=== PATIENT | male | born 1935 | race Caucasian/White ===

== ENCOUNTER → 2017-07-25 14:56 | Outpatient (CLI) | payer MEDICARE, OTHER, SELFPAY ==
[2017-07-25 16:11] LABS: Absolute Lymphocyte Count 0.72 X10^3/ul (0.83-4.51); Absolute Neutrophil Count 4.3 X10^3/uL (2.0-7.7); Basophil# 0.01 X10^3/uL; Basophil% 0.2 % (0-1); Eosinophil# 0.17 X10^3/uL; Eosinophils% 2.7 % (0-5); Hematocrit 40.9 % (40-54); Hemoglobin 14.6 g/dl (13.0-16.5); Lymphocyte # 0.72 X10^3/ul (4.0); Lymphocyte % 11.4 % (19-41); Mean Corp Hgb Conc 35.7 g/gl (32-36); Mean Corpuscular Hgb 37.7 pg (27.0-32.0); Mean Corpuscular Volume 105.7 fL (80-94); Mean Platelet Vol. 11.8 fl (6.2-12.0); Monocyte# 1.08 X10^3/uL; Monocyte% 17.1 % (0-10); Neutrophil # 4.32 X10^3/uL (2.7-7.7); Neutrophil % 68.3 % (47-70); Platelet Count 155 K/mm3 (150-450); RBC Distribution Width SD 54.2 fl (35.1-43.9); Red Blood Count 3.87 M/mm3 (4.6-6.2); White Blood Count 6.3 K/mm3 (4.4-11.0)
[2017-07-25 16:18] LABS: POSITIVE COUNT NO; POSITIVE DIFFERENTIAL NO; POSITIVE MORPHOLOGY NO
[2017-07-25 16:38] LABS: Vitamin D,25 Hydroxy 16.7 ng/mL (19.95-100.01)
[2017-07-25 16:41] LABS: ALB/GLOB Ratio 1.1 RATIO (0.9-2.4); AST(SGOT) 17 U/L (15-37); Alanine Aminotransfer ALT/SGPT 24 U/L (16-61); Albumin, Serum 3.7 g/dL (3.2-5.0); Alkaline Phosphatase 45 U/L (45-117); Anion Gap 6 (5-15); BUN 16 mg/dL (7-18); BUN/Creat Ratio 13.4 RATIO (10-20); Calcium,Total 8.9 mg/dL (8.5-10.1); Chloride 103 mmol/L (98-107); Creatinine, Serum 1.19 mg/dL (0.70-1.30); EST Glomerular Filtration Rate 63 mL/min (>60); Est Glom Filt Rate - Afr Amer 76 mL/min (>60); Globulin 3.3 g/dL (2.2-4.2); Glucose 77 mg/dL (70-110); Potassium 3.8 mmol/L (3.5-5.1); Sodium Level 141 mmol/L (136-145)
== END ==
PROVIDERS: Family Provider Family Medicine Geriatric Medicine; PCP Family Medicine Geriatric Medicine; Visit Provider Family Medicine Geriatric Medicine
DX: I10 Essential (primary) hypertension (principal); E55.9 Vitamin D deficiency, unspecified
CPT/HCPCS: 36415; 80053; 82306; 84443; 85025

== ENCOUNTER → 2018-01-09 14:54 | Outpatient (CLI) | payer MEDICARE, OTHER, SELFPAY ==
--- NOTE | 2018-01-09 15:00 | RAD_ITS ---
STUDY: X-RAY - UNILATERAL RIBS ( RIGHT ) WITH CHEST REASON FOR EXAM: Male, 82 years old. Right-sided rib pain TECHNIQUE - RIBS: 5 view(s) of the ribs. TECHNIQUE - CHEST: Single PA view of the chest. COMPARISON: None. FINDINGS - RIBS: Bones are demineralized with minimally displaced right lateral 10th and 11th rib fractures. No pleural thickening or pneumothorax. FINDINGS - CHEST: There are interstitial fibrotic changes of the lungs. There is no demonstrated pleural abnormality. Sternal cerclage wires and vascular clips are present from a prior sternotomy and coronary artery bypass graft procedure (CABG). Normal mediastinum and francis. Normal visualized pulmonary arteries. There is atherosclerotic calcification of the aortic arch with tortuosity. There are diffuse degenerative changes of the visualized thoracic spine. There is degenerative osteoarthritis of the bilateral shoulders. There is no demonstrated abnormality of the visualized soft tissue structures of the upper abdomen. RAD/Ribs Uni Min 3V w/PA Chest IMPRESSION: RIBS: Acute minimally displaced right lateral 10th and 11th rib fractures without pleural thickening or pneumothorax CHEST: Chronic interstitial changes, no superimposed acute pulmonary process Electronically Signed: Ian Caban MD at 15:40 EDT , Service support ,
== END ==
PROVIDERS: Family Provider Family Medicine Geriatric Medicine; PCP Family Medicine Geriatric Medicine; Visit Provider Family Medicine Geriatric Medicine
DX: R07.89 Other chest pain (principal)
CPT/HCPCS: 71101

== ENCOUNTER → 2018-01-12 09:32 | Outpatient (CLI) | payer MEDICARE, OTHER, SELFPAY ==
[2018-01-12 17:33] LABS: Absolute Lymphocyte Count 0.58 X10^3/ul (0.83-4.51); Absolute Neutrophil Count 7.4 X10^3/uL (2.0-7.7); Basophil# 0.01 X10^3/uL; Basophil% 0.1 % (0-1); Eosinophil# 0.12 X10^3/uL; Eosinophils% 1.2 % (0-5); Hematocrit 40.6 % (40-54); Hemoglobin 13.6 g/dl (13.0-16.5); Lymphocyte # 0.58 X10^3/ul (4.0); Mean Corp Hgb Conc 33.5 g/gl (32-36); Mean Corpuscular Hgb 35.8 pg (27.0-32.0); Mean Corpuscular Volume 106.8 fL (80-94); Mean Platelet Vol. 11.5 fl (6.2-12.0); Monocyte# 1.52 X10^3/uL; Monocyte% 15.7 % (0-10); Neutrophil # 7.44 X10^3/uL (2.7-7.7); Neutrophil % 76.6 % (47-70); Platelet Count 153 K/mm3 (150-450); RBC Distribution Width CV 14.1 % (11.6-14.6); RBC Distribution Width SD 54.7 fl (35.1-43.9); White Blood Count 9.7 K/mm3 (4.4-11.0)
[2018-01-12 17:34] LABS: Differential Indicated SCAN CRITERIA MET; POSITIVE COUNT NO; POSITIVE DIFFERENTIAL YES; POSITIVE MORPHOLOGY NO
[2018-01-12 17:45] LABS: BUN 25 mg/dL (7-18); Creatinine, Serum 1.28 mg/dL (0.70-1.30); EST Glomerular Filtration Rate 58 mL/min (>60); Glucose 104 mg/dL (74-106)
[2018-01-12 17:46] LABS: ALB/GLOB Ratio 1.1 RATIO (0.9-2.4); AST(SGOT) 18 U/L (15-37); Alanine Aminotransfer ALT/SGPT 28 U/L (16-61); Albumin, Serum 3.6 g/dL (3.2-5.0); Alkaline Phosphatase 50 U/L (45-117); Anion Gap 8 (5-15); BUN/Creat Ratio 19.5 RATIO (10-20); Calcium,Total 9.1 mg/dL (8.5-10.1); Chloride 104 mmol/L (98-107); Est Glom Filt Rate - Afr Amer 70 mL/min (>60); Globulin 3.3 g/dL (2.2-4.2); Potassium 3.8 mmol/L (3.5-5.1); Protein, Total 6.9 g/dL (6.4-8.2); Sodium Level 143 mmol/L (136-145); Thyroid Stim Hormone (TSH) 1.11 uIU/mL (0.358-3.74)
[2018-01-12 18:01] LABS: Differential Comment SCANNED
[2018-01-13 08:15] LABS: Vitamin D,25 Hydroxy 21.5 ng/mL (29.95-100.01)
== END ==
PROVIDERS: Family Provider Family Medicine Geriatric Medicine; PCP Family Medicine Geriatric Medicine; Visit Provider Family Medicine Geriatric Medicine
DX: E55.9 Vitamin D deficiency, unspecified (principal); I10 Essential (primary) hypertension
CPT/HCPCS: 36415; 80053; 82306; 84443; 85025

== ENCOUNTER 2018-02-06 14:15 | Inpatient (IN) | payer MEDICARE, OTHER, SELFPAY ==
[2018-01-10 15:58] VITALS: BP 145/76; PULSE 58; RESP 18; TEMP 36.2; O2SAT 95; BMI 34.8
--- NOTE | 2018-01-10 16:12 | SDCEKG_ITS ---
Test Reason : Blood Pressure : / mmHG Vent. Rate : 065 BPM Atrial Rate : 065 BPM P-R Int : 184 ms QRS Dur : 104 ms QT Int : 420 ms P-R-T Axes : 068 -09 046 degrees QTc Int : 436 ms Sinus rhythm with Premature atrial complexes Otherwise normal ECG Confirmed by ROSANNA HERNANDEZ, LATASHA ([id number]), industrial editor DIONNE HALE ([id number] on 01/13/2018 1:18:26 PM Referred By: Peter Smith Confirmed By:LATASHA MARTE MD
[2018-01-10 17:59] LABS: Hematocrit 39.3 % (40-54); Hemoglobin 13.5 g/dl (13.0-16.5); Mean Corp Hgb Conc 34.4 g/gl (32-36); Mean Corpuscular Hgb 36.3 pg (27.0-32.0); Mean Corpuscular Volume 105.6 fL (80-94); Mean Platelet Vol. 12.2 fl (6.2-12.0); Platelet Count 150 K/mm3 (150-450); RBC Distribution Width CV 13.6 % (11.6-14.6); RBC Distribution Width SD 51.4 fl (35.1-43.9); Red Blood Count 3.72 M/mm3 (4.6-6.2); White Blood Count 14.4 K/mm3 (4.4-11.0)
[2018-01-10 18:04] LABS: Anion Gap 6 (5-15); BUN 19 mg/dL (7-18); BUN/Creat Ratio 17.1 RATIO (10-20); Calcium,Total 9.2 mg/dL (8.5-10.1); Chloride 103 mmol/L (98-107); Creatinine, Serum 1.11 mg/dL (0.70-1.30); EST Glomerular Filtration Rate 68 mL/min (>60); Est Glom Filt Rate - Afr Amer 82 mL/min (>60); Estimated Creatinine Clearance 51.35 ml/min; Glucose 103 mg/dL (74-106); Potassium 4.2 mmol/L (3.5-5.1); Sodium Level 142 mmol/L (136-145)
[2018-01-10 18:19] LABS: Scan Indicated on CBC? Y/N NO
--- NOTE | 2018-02-03 16:07 | CASEMGMT ---
KACI NIELSEN attempted pre-op call at this time. No answer, voice message left with return contact information. Per PAT assessment, patient to return home with son staying with patient.
[2018-02-06] VITALS (11 sets, daily range): BP systolic 102–163; BP diastolic 65–93; PULSE 53–71; RESP 16–18; TEMP 35.9–36.9; O2SAT 93–98; BMI 34.8
[2018-02-06] MEDS: Acetaminophen 500 MG Tablet 1000 MG PO ×2 (10:02→21:01)
[2018-02-06] MEDS: oxyCODONE HCl Cr 10 MG Tablet PO (10:06)
[2018-02-06 11:19] LABS: Absolute Lymphocyte Count 0.72 X10^3/ul (0.83-4.51); Absolute Neutrophil Count 3.5 X10^3/uL (2.0-7.7); Basophil# 0.02 X10^3/uL; Basophil% 0.4 % (0-1); Eosinophil# 0.22 X10^3/uL; Hematocrit 41.2 % (40-54); Hemoglobin 13.6 g/dl (13.0-16.5); Lymphocyte # 0.72 X10^3/ul (4.0); Lymphocyte % 13.2 % (19-41); Mean Corpuscular Hgb 35.6 pg (27.0-32.0); Mean Corpuscular Volume 107.9 fL (80-94); Monocyte# 1.03 X10^3/uL; Monocyte% 18.8 % (0-10); Neutrophil # 3.46 X10^3/uL (2.7-7.7); Neutrophil % 63.2 % (47-70); Platelet Count 148 K/mm3 (150-450); RBC Distribution Width SD 58.9 fl (35.1-43.9); Red Blood Count 3.82 M/mm3 (4.6-6.2); White Blood Count 5.5 K/mm3 (4.4-11.0)
[2018-02-06 11:20] LABS: POSITIVE COUNT NO; POSITIVE DIFFERENTIAL NO; POSITIVE MORPHOLOGY NO
--- NOTE | 2018-02-06 12:00 | KNEE_PTH ---
PATIENT: ISA MILES LOC: MS3 U#:[id number] AGE/SX: 82/M ROOM: [facility] [place], [place] RE02/07/[address]: Dr. Peter Smith DO : 1935 BED: 1 DIS: 02/08/2018 SPEC #: [id number] RECD: 02/06/18 14:43 STATUS: ROLANDO REChai #: [id number] KATELYN: 02/06/18 12:[address]: Peter Smith DEPT: SURGICAL PATHOLOGY RECD BY: Lauro Dela Cruz ENTERED: 02/07/18 06:47 SP TYPE: TOTAL KNEE OTHR DR: Dr. Kaiser Pan MD Tissues: Knee, NOS Procedures: Decalcification bone/plaque Surgery Specimen Level IV HEADER OPERATION: Right total knee replacement PRE-OP DIAGNOSIS: Right knee osteoarthritis TISSUE SUBMITTED: Right knee bone and tissue MICROSCOPIC DIAGNOSIS Bone and soft tissue of right knee, total knee resection: Severe degenerative joint disease. AM:wilmer 02/10/18 MICROSCOPIC DESCRIPTION Slides are reviewed. GROSS DESCRIPTION Received is one container designated bone and soft tissue right knee. The specimen consists of multiple fragments of wilde-yellow bone measuring in aggregate 11 x 11 x 4 cm. Also in the specimen container are multiple fragments of yellow-white soft tissue measuring in aggregate 8 x 8 x 3 cm. A number of bony fragments contain articular surfaces consistent with tibial plateau and femoral condyle and displaying prominent osteophyte formation, eburnation, and bone erosion. Telecommunications Professional sections are submitted in two cassettes as follows: 1 - soft tissue, 2 - bone after decalcification. / SJ:wilmer 02/07/18 TC:5 CPT: 45909, 95237
[2018-02-06] MEDS: Cefazolin 2 GM in 0.9% Normal Saline 100 ML IV (13:02)
--- NOTE | 2018-02-06 14:21 | PCM.IMDPSTOP ---
Immediate Post-Op Note Date of Procedure: 02/06/18 Primary Surgeon/Physician: Peter Smith online marketing director: Js Ferguson Pre-Operative Diagnosis: OA right knee Post-Operative Diagnosis: same Surgery/Procedure Performed:: Right TKR Description of Surgical Findings:: See note Estimated Blood Loss: 25cc Specimen's removed: bone Type of Anesthesia:: Spinal/Supplemental ASA Class: ASA3 Severe Disease - Admit VTE Documentation VTE Present on Admission: No VTE Mechan Device Prophylaxis: SCD's, Thigh High RENETTA Hose VTE Pharm Prophylaxis ordered?: Yes
[2018-02-06 15:14] LABS: Hematocrit 38.2 % (40-54); Hemoglobin 12.9 g/dl (13.0-16.5); Mean Corp Hgb Conc 33.8 g/gl (32-36); Mean Corpuscular Hgb 36.8 pg (27.0-32.0); Mean Corpuscular Volume 108.8 fL (80-94); Mean Platelet Vol. 11.2 fl (6.2-12.0); Platelet Count 136 K/mm3 (150-450); RBC Distribution Width CV 14.5 % (11.6-14.6); RBC Distribution Width SD 55.8 fl (35.1-43.9); Red Blood Count 3.51 M/mm3 (4.6-6.2); Scan Indicated on CBC? Y/N NO
[2018-02-06] MEDS: Ketorolac 15 MG/ML Vial IV (17:21)
[2018-02-06] MEDS: 0.9% NaCl Peripheral Flush Adult/Peds IV (17:21)
[2018-02-06] MEDS: 0.9% Normal Saline 1,000 ML 100 ML IV (17:22)
[2018-02-06] MEDS: Aspirin 325 MG Tablet PO (18:35)
[2018-02-06] MEDS: oxyCODONE 5 MG Tablet PO (18:39)
[2018-02-06] MEDS: Tamsulosin HCl 0.4 MG Capsule PO (18:40)
[2018-02-06] MEDS: Cefazolin 1 GM/50 ML BAG IV (20:57)
[2018-02-06] MEDS: Ranolazine 500 MG Tablet 1000 MG PO (21:00)
[2018-02-06] MEDS: Metoprolol Tartrate 25 MG Tablet PO (21:00)
[2018-02-06] MEDS: Senna/Docusate Sodium 1 Tablet 2 TABLET PO (21:01)
[2018-02-07] VITALS (7 sets, daily range): BP systolic 110–126; BP diastolic 67–74; PULSE 56–65; RESP 16–18; TEMP 35.9–37.1; O2SAT 93–98
[2018-02-07] MEDS: oxyCODONE 5 MG Tablet PO ×3 (05:37→20:18)
[2018-02-07] MEDS: Acetaminophen 500 MG Tablet 1000 MG PO ×3 (05:37→21:22)
[2018-02-07] MEDS: Cefazolin 1 GM/50 ML BAG IV (05:37)
[2018-02-07 06:14] LABS: Hemoglobin 12.4 g/dl (13.0-16.5); Mean Corp Hgb Conc 33.5 g/gl (32-36); Mean Corpuscular Hgb 36.5 pg (27.0-32.0); Mean Corpuscular Volume 108.8 fL (80-94); Mean Platelet Vol. 11.4 fl (6.2-12.0); Platelet Count 117 K/mm3 (150-450); RBC Distribution Width CV 14.5 % (11.6-14.6); RBC Distribution Width SD 56.4 fl (35.1-43.9); White Blood Count 5.7 K/mm3 (4.4-11.0)
[2018-02-07 06:19] LABS: Scan Indicated on CBC? Y/N NO
[2018-02-07 06:25] LABS: Anion Gap 7 (5-15); BUN 14 mg/dL (7-18); BUN/Creat Ratio 13.9 RATIO (10-20); Calcium,Total 8.3 mg/dL (8.5-10.1); Chloride 108 mmol/L (98-107); Creatinine, Serum 1.01 mg/dL (0.70-1.30); EST Glomerular Filtration Rate 76 mL/min (>60); Est Glom Filt Rate - Afr Amer 91 mL/min (>60); Estimated Creatinine Clearance 56.44 ml/min; Glucose 97 mg/dL (74-106); Potassium 4.2 mmol/L (3.5-5.1); Sodium Level 143 mmol/L (136-145)
--- NOTE | 2018-02-07 07:40 | PCM.PN.ORT ---
Subjective: Doing well, up at bedside eating breakfast. Reports mild nausea. Pain well controlled. - Physical Exam General: Alert, Oriented x3, No apparent distress Oral: Moist Mucosa Extremities: No clubbing, No cyanosis, Capillary Refill Less than 3 Seconds, No Calf Tenderness - Negative Claribel's and Juan signs Skin: Incision - stable Neurological: Neuro grossly intact Vital Signs Temp Pulse Resp BP Pulse Ox 98.5 F 58 L 16 120/69 96 02/07/18 03:00 02/07/18 03:00 02/07/18 03:00 02/07/18 03:00 02/07/18 03:00 Oxygen Delivery Method Room Air Weight: 235 lb 7.259 oz Body Mass Index (BMI) 34.8 Intake and Output for Last 24 Hours 02/05/18 02/06/18 02/07/18 23:59 23:59 23:59 Intake Total 3150 / 3150 516 / 516 Output Total 1050 / 1050 425 / 425 Balance 2100 / 2100 91 / 91 Laboratory Tests Past 24 Hrs 02/06/18 02/06/18 02/07/18 11:08 15:02 05:05 WBC 5.5 5.0 5.7 RBC 3.82 L 3.51 L 3.40 L Hgb 13.6 12.9 L 12.4 L Hct 41.2 38.2 L 37.0 L MCV 107.9 H 108.8 H 108.8 H MCH 35.6 H 36.8 H 36.5 H MCHC 33.0 33.8 33.5 RDW 15.0 H 14.5 14.5 RDW Differential 58.9 H 55.8 H 56.4 H Plt Count 148 L 136 L 117 L MPV 11.0 11.2 11.4 Immature Gran % (Auto) 0.400 Neut % (Auto) 63.2 Lymph % (Auto) 13.2 L [place] % (Auto) 18.8 H Eos % (Auto) 4.0 Baso % (Auto) 0.4 Absolute Neuts (auto) 3.5 Absolute Lymphs (auto) 0.72 L Total Counted Not Reportable Sodium Potassium Chloride Carbon Dioxide Anion Gap BUN Creatinine Estim Creat Clear Calc Est GFR (MDRD) Af Amer Est GFR (MDRD) Non-Af BUN/Creatinine Ratio Glucose Calcium 02/07/18 05:05 WBC RBC Hgb Hct MCV MCH MCHC RDW RDW Differential Plt Count MPV Immature Gran % (Auto) Neut % (Auto) Lymph % (Auto) [place] % (Auto) Eos % (Auto) Baso % (Auto) Absolute Neuts (auto) Absolute Lymphs (auto) Total Counted Sodium 143 Potassium 4.2 Chloride 108 H Carbon Dioxide 28.0 Anion Gap 7 BUN 14 Creatinine 1.01 Estim Creat Clear Calc 56.44 Est GFR (MDRD) Af Amer 91 Est GFR (MDRD) Non-Af 76 BUN/Creatinine Ratio 13.9 Glucose 97 Calcium 8.3 L Medical Necessity - Tobacco Use Smoking Status: Never smoker Assessment/Plan s/ right TKR -- PT today and home tomorrow. Follow up with with Josephine Tobar 02/10
[2018-02-07] MEDS: 0.9% NaCl Peripheral Flush Adult/Peds IV (07:52)
[2018-02-07] MEDS: Ondansetron 4 MG/2 ML Vial IV (07:52)
[2018-02-07] MEDS: Multivitamins,Therapeutic Tablet 1 TABLET PO (08:50)
[2018-02-07] MEDS: Aspirin 325 MG Tablet PO ×2 (08:50→17:23)
[2018-02-07] MEDS: Ranolazine 500 MG Tablet 1000 MG PO ×2 (08:52→21:22)
[2018-02-07] MEDS: Senna/Docusate Sodium 1 Tablet 2 TABLET PO ×2 (08:52→21:22)
[2018-02-07] MEDS: Famotidine 20 MG Tablet 40 MG PO (08:52)
[2018-02-07] MEDS: Metoprolol Tartrate 25 MG Tablet PO ×2 (08:52→21:22)
--- NOTE | 2018-02-07 11:15 | CASEMGMT ---
KACI NIELSEN Face to Face with patient for initial transition planning/care coordination assessment. RN GIA introduced self and role at [facility]. Patient lying in bed, alert and oriented. Patient willing to participate in assessment and is able to answer all questions appropriately. Care providers, pharmacy, and demographics verified. See link attached. Patient wishes to discharge home and is setup with [facility] for outpatient therapy with son providing transportation. Patient states he has no further needs or concerns at this time. CM to follow for discharge planning needs that may arise. Disposition Plan: Patient to discharge home with outpatient therapy, family support, and follow-up plans in place.
[2018-02-07] MEDS: Tamsulosin HCl 0.4 MG Capsule PO (17:23)
[2018-02-08 02:45] VITALS: BP 123/71; PULSE 63; RESP 16; TEMP 36.7; O2SAT 94
[2018-02-08] MEDS: oxyCODONE 5 MG Tablet PO (04:48)
[2018-02-08] MEDS: Acetaminophen 500 MG Tablet 1000 MG PO ×2 (06:04→13:35)
[2018-02-08] MEDS: 0.9% NaCl Peripheral Flush Adult/Peds IV (06:30)
[2018-02-08] MEDS: Ondansetron 4 MG/2 ML Vial IV (06:31)
[2018-02-08 09:14] VITALS: BP 128/69; PULSE 74; RESP 16; TEMP 36.2; O2SAT 96
[2018-02-08] MEDS: Ranolazine 500 MG Tablet 1000 MG PO (09:20)
[2018-02-08 09:21] VITALS: PULSE 74
[2018-02-08] MEDS: Metoprolol Tartrate 25 MG Tablet PO (09:21)
[2018-02-08] MEDS: Aspirin 325 MG Tablet PO (09:21)
[2018-02-08] MEDS: Senna/Docusate Sodium 1 Tablet 2 TABLET PO (09:21)
[2018-02-08] MEDS: Multivitamins,Therapeutic Tablet 1 TABLET PO (09:21)
[2018-02-08] MEDS: Famotidine 20 MG Tablet 40 MG PO (09:21)
--- NOTE | 2018-02-08 10:34 | PCM.PN.ORT ---
Subjective: Patient sitting at bedside. Pain well managed. Has no other complaints. Ready for discharge home. Objective: Dressings clean dry intact. Negative signs symptoms of DVT. Vital signs labs within normal limits. Patient is afebrile neurovascular is otherwise intact. - Physical Exam General: Alert, Oriented x3, Cooperative HEENT: PERRLA Neurological: Cranial nerves II-XII grossly intact Psych/Mental Status: Normal Affect, Alert and oriented to time, place, person, mood and affect Vital Signs Temp Pulse Resp BP Pulse Ox 97.2 F L 74 16 128/69 H 96 02/08/18 09:14 02/08/18 09:21 02/08/18 09:14 02/08/18 09:14 02/08/18 09:14 Oxygen Delivery Method Room Air Weight: 106.8 kg Body Mass Index (BMI) 34.8 Intake and Output for Last 24 Hours 02/06/18 02/07/18 02/08/18 23:59 23:59 23:59 Intake Total 3150 / 3150 1096 / 1096 250 / 250 Output Total 1050 / 1050 1050 / 1050 250 / 250 Balance 2100 / 2100 46 / 46 0 / 0 Medical Necessity - Tobacco Use Smoking Status: Never smoker Assessment/Plan Status post right total knee arthroplasty Plan 1. Continue all pain medications as prescribed 2. Continue physical therapy outpatient at [facility] 3. Aspirin 325 mg 1 p.o. every 12 hours ?30 days for postop DVT prophylaxis 4. Follow-up as scheduled, see pink sheet 5. Discharge home today 6. Prior to discharge AG dressing to be placed
--- NOTE | 2018-02-08 10:40 | PCM.DC.TKR ---
Discharge Diet: No Restrictions Discharge Activity: May Not Drive, May Shower, Use Walker May shower in (days): 2 Ice area for (Minutes): 20 - each hour while awake. Weight Bearing Status: Weight bearing as tolerated Elevate: Operative Extremity Additional Activity Instructions:: Wear elastic stockings for 2 weeks after your surgery. Call your doctor if your incision/area has: Continuous Slow Oozing, Sudden Increased Bleeding, Increased Pain/ Swelling, Increased Redness, Foul Smelling Discharge Call your doctor if you observe: Fever of 101 or Higher, Coldness, Increased Pain - in extremity, Numbness or Tingling, Change in Color, Calf discomfort, Uncontrolled pain Change Dressing in (Days):: 0 - and daily as needed. Remove Dressing in (days):: 9 Cleanse incision/area with: Soap & Water Allergies/Adverse Reactions: Allergies No Known Allergies Allergy (Verified 12/30/17 11:39) Medications to take at Discharge Tamsulosin HCl [Flomax] 0.4 mg PO DAILY 03/06/16 Potassium Chloride [K-Dur] 20 meq PO DAILY 03/29/16 metoprolol tartrate 25 mg tablet 25 mg PO BID tab 06/23/17 ranolazine ER 1,000 mg tablet,extended release,12 hr 1,000 mg PO BID tab 06/23/17 nitroglycerin 0.4 mg sublingual tablet 0.4 mg SUBLINGUAL Q5M PRN #25 tab 12/30/17 Multivitamin [Multiple Vitamins] 1 each PO DAILY 01/10/18 famotidine 40 mg tablet 40 mg PO QDAY 01/25/18 Acetaminophen [Tylenol] 1,000 mg PO Q8 #90 tab 02/08/18 Aspirin 325 mg PO BIDCM #60 tab 02/08/18 Oxycodone [Oxyir] 5 - 10 mg PO Q4H PRN PRN 7 Days #84 tab 02/08/18 The following prescriptions were given: Oxycodone [Oxyir] 5 - 10 mg PO Q4H PRN PRN 7 Days #84 tab PRN Reason: Mod-Severe Pain (4-04/05) Acetaminophen [Tylenol] 1,000 mg PO Q8 #90 tab Aspirin 325 mg PO BIDCM #60 tab Primary Care Physician: Kaiser Pan Chi, MD [Primary Care Provider] - Test Results: Test results from this visit will be discussed in further detail at your follow-up appointment, if applicable. Please Follow Up With: Js Ferguson PA-C When: see pink sheet
--- NOTE | 2018-02-08 13:00 | CASEMGMT ---
KACI NIELSEN received update for therapy that patient states SULAIMAN Ferguson was going to order patient a FWW. No script for FWW. KACI NIELSEN called SULAIMAN Ferguson regarding FWW and stated that he meant to order FWW. KACI NIELSEN called [facility] and obtained script for FWW. KACI NIELSEN spoke with patient, who was getting ready to discharge, regarding FWW. Patient has a standard walker at home. Patient does not want to wait for walker to be delivered to hospital. Son in room. Patient and son agreeable to tow picker FWW from [facility] on the way home. Copy of script faxed to [facility] and original giving to patient.
[2018-02-08 13:36] VITALS: BP 114/68; PULSE 61; RESP 18; TEMP 36.8; O2SAT 94
--- NOTE | 2018-02-13 14:11 | PCM.OP.BLANK ---
Operative Report Date of Procedure: 02/06/18 Primary Surgeon/Physician: Peter Smith geneticist: Chapincito Ferguson PA-C geneticist: Pre-Operative Diagnosis: Osteoarthritis right knee Post-Operative Diagnosis: same Surgery/Procedure Performed: Right TKR using Drea size 6 PS femur, size 6 tibia, 11 mm polyethylene spacer and 38 mm patella (all components cemented) Estimated Blood Loss: 25cc Specimen's Removed: bone Type of Anesthesia: spinal ASA Class: 3 Implants: [ ] Indications: Patient has severe end-stage osteoarthritis diagnosed via x-rays in the knee. They have failed all forms of conservative measures including activity modification, injections, anti-inflammatories, use of assistive device. The patient has pain that affects on a daily basis and prevents him from doing things that they enjoyed. They have elected to undergo the above procedure. The risks of the procedure were discussed at length and their questions were answered. Procedure Description: The patient was greeted in the preoperative area. The [ right] knee was then marked with a surgical marker. Patient was then taken to or [address]. They were administered a dose of antibiotics as well as tranexamic acid. Once adequate anesthesia was obtained and airway was secured to placed in supine position on the operating room table. A well-padded tourniquet was placed on the affected extremity. Leg was then prepped and draped in the usual sterile fashion from the knee down. Ioban was used on the skin. Surgical timeout was then performed and confirmed with all present. Six-inch Esmarch was used to examine the limb and tourniquet was then inflated to 250 mmHg. A longitudinal incision was then planned and carried out in the anterior aspect of the knee. The dissection was then carried the length of the incision the extensor mechanism was identified. Standard medial parapatellar arthrotomy was then performed revealing severe eburnation of bone and periarticular osteophytes. There is complete loss of cartilage especially in the medial compartment with varus alignment. Anterior fat pad was removed for visualization purposes and the anterior medial aspect of the tibia was skeletonized for exposure to the knee. The knee was then flexed the patella was inverted. Opening reamer was then used in the femur approximately 1 cm anterior to the attachment of the PCL. The intramedullary valgus wand was then placed in the femur set at 5? of valgus. The distal femoral cutting jig was then applied to the femur with anticipated resection of approximately 8 mm. This was then made with a oscillating saw. The sizing guide was then placed referencing off the posterior condyles and also reference off the epicondylar axis. This was measured and the appropriate size 4-in-1 cutting jig was then applied to the distal femur. Anterior posterior cuts were made followed by the anterior and posterior chamfer cuts. These bony pieces and fragments were removed and placed on the back table. Posterior retractor was then utilized and the tibia was subluxed anteriorly. Intramedullary tibial alignment jig was then applied to the tibia referencing off the medial one third of the tibial tubercle the anterior tibial spine the middle aspect of the tibiotalar joint. Also reference off patient's habematolel slope. The tibial cutting jig was then pinned with anticipated resection of 2 mm off of the deficient medial tibial condyle. This cut was made with the oscillating saw. Once this was complete a laminar bark tanner was utilized in both medial lateral meniscus were removed and a posterior capsular osteophytes were also removed. Posterior capsule release was performed in the posterior capsule as well as the geniculate arteries are treated with the aqua Keyla. The tibia was incised and the appropriate sized tibial tray was then pinned. The femoral box cutting jig was then applied to the femur and the box was prepared removing a portion of the intercondylar notch. The femoral trial was then placed and the knee was trialed. Full flexion-extension were easily achieved. The knee seemed to balance quite nicely. Any remaining osteophytes were removed at this time. Once this was complete the patella was everted and the Myra patella reaming device was then utilized the patella was then placed in the appropriate jig and reamer was then used to remove approximately 9 mm of the undersurface of the patella. A soft tissue remaining was in the way was removed and patella trial was then placed listed maintain excellent tracking using the no thumbs technique. The tibial tray at this point was punched to accommodate the fins of the final implant. At this point cement was mixed on the back table. The trial components were removed and the knee was copiously irrigated. Did use a cocktail of injection for postoperative pain control. The final components were then cemented in the standard fashion and excess cement was removed with cement removal tools and patellar clamp is placed in the patella. As the cement had cured in full extension tourniquet was deflated and hemostasis was perfect with Bovie cautery as well as the aqua Manus. Needle is once again trialed with different size polyethylenes to ensure the full range of motion was achieved as well as excellent balancing ligamentously was achieved. At this point the knee was copiously irrigated. Final implant was then inserted locking mechanism was engaged and confirmed to be locked. The arthrotomy was then closed with #1 Vicryl aggravate type fashion interrupted. Subcutaneous tissue was closed with 0 Vicryl and surgical hao were placed in the skin. A occlusive silver impregnated dressing was then applied followed by well-padded sterile dressing secured with an Carlitos wrap. The patient was taken to the PACU in stable condition. No complications known at this time. Postoperatively we will maintain standard total knee postoperative protocol. The use of the physician administrative assistant receptionist was integral during this procedure. They assisted with positioning placement of the tourniquet retracting closure and placement of the dressing. The procedure would have been much more difficult without their expertise and assistance
== END 2018-02-08 13:45 | disposition home or self-care (01) | DRG 470 ==
PROVIDERS: Anesthesiology; Admitting Provider Orthopaedic Surgery; Family Provider Family Medicine Geriatric Medicine; PCP Family Medicine Geriatric Medicine; Visit Provider Orthopaedic Surgery
PROC: 0SRC0J9 Replacement of Right Knee Joint with Synthetic Substitute, Cemented, Open Approach (ICD-10-PCS; CPT 27447; principal; 2018-02-06 11:35)
DX: M17.11 Unilateral primary osteoarthritis, right knee (principal); I10 Essential (primary) hypertension; E78.00 Pure hypercholesterolemia, unspecified; K21.9 Gastro-esophageal reflux disease without esophagitis; E66.3 Overweight; Z68.34 Body mass index [BMI] 34.0-34.9, adult; Z79.82 Long term (current) use of aspirin; Z79.899 Other long term (current) drug therapy; Z96.652 Presence of left artificial knee joint; Z86.718 Personal history of other venous thrombosis and embolism; Z95.1 Presence of aortocoronary bypass graft
CPT/HCPCS: 36415; 80048; 85025; 85027; 87077; 87081; 88305; 88311; 93005; 97110; 97162; 97166; 97530; C1776; J7030; J7120; A4216; J2405

== ENCOUNTER 2018-02-10 12:24 | Inpatient (IN) | payer MEDICARE, OTHER, SELFPAY ==
[2018-02-10 12:29] VITALS: BMI 35.7
--- NOTE | 2018-02-10 13:17 | PCM.HP.STD ---
Problem List (1) Prinzmetal angina Status: Chronic (2) HLD (hyperlipidemia) Status: Chronic Qualifiers: (3) HTN (hypertension) Status: Chronic Qualifiers: (4) CAD (coronary artery disease) Status: Chronic Qualifiers: (5) Atrial flutter Status: Chronic (6) Atherosclerosis of coronary artery bypass graft(s), unspecified, with other forms of angina pectoris Status: Chronic History of Present Illness Date of Admission: 02/10/18 Chief Complaint: Debility post Right Total Knee replacement The patient is a 82 year old CM with PMH HTN, HLD, CAD s/p CABG, S/P stents, morbid obesity, H/O Atrial flutter s/p ablation not on AC per Cardiology, BPH, had recent right total knee replacement on 02/06/[address] Schmidt now admitted to [facility] with debility s/p right TKR, for > 3 hrs therapy daily, with a goal of returning back home at or near his prior level of functional independence. Patient had Right TKR done by Dr. Schmidt on 02/06/18, was discharged home on 02/08/18, had gone for therapy at Dr. Schmidt's office who referred him to inpatient rehab since patient was complaining of right leg stiffness and right knee pain. Patient lives alone, denies any frequent falls, had a mechanical fall about a month ago per patient when he missed his step on a curb, fell and had rib fractures on the right side, bu denies using cane or walker to ambulate, does not need any assistance for his ADLs, lives in a ranch style house, has steps to get to the basement and also has 2 steps to get into the house from the backyard, has a steep ramp in the front. At present patient denies any AVALOS, visual disturbances, focal motor weakness or sensory loss. He continues to have right knee pain/stiffness and swelling the legs. [] Past Medical History Past Medical History (Chronic Problems): Chronic Problems (Last Reviewed 12/30/17 @ 11:41 by Leeanna Calvo) Prinzmetal angina (Chronic) HLD (hyperlipidemia) (Chronic) HTN (hypertension) (Chronic) CAD (coronary artery disease) (Chronic) Malignant pericardial effusion (Chronic) Atrial flutter (Chronic) Palpitations (Chronic) Shortness of breath (Chronic) Precordial chest pain (Chronic) Aortocoronary bypass status (Chronic) History of percutaneous transluminal coronary angioplasty (Chronic) Abnormal result of cardiovascular function study, unspecified (Chronic) Pain in limb (Chronic) Dizziness and giddiness (Chronic) Fatigue (Chronic) Mild aortic insufficiency (Chronic) Pain in left shoulder (Chronic) Atherosclerosis of coronary artery bypass graft(s), unspecified, with other forms of angina pectoris (Chronic) Intermittent claudication (Chronic) Medical History: Medical History (Last Reviewed 12/30/17 @ 11:41 by Leeanna Calvo) Prinzmetal angina (Chronic) I20.1 HLD (hyperlipidemia) (Chronic) E78.5 HTN (hypertension) (Chronic) I10 CAD (coronary artery disease) (Chronic) I25.10 Malignant pericardial effusion (Chronic) C80.1, I31.8 Atrial flutter (Chronic) I48.92 Palpitations (Chronic) R00.2 Shortness of breath (Chronic) R06.02 Precordial chest pain (Chronic) R07.2 Aortocoronary bypass status (Chronic) Z95.1 History of percutaneous transluminal coronary angioplasty (Chronic) Z98.61 Abnormal result of cardiovascular function study, unspecified (Chronic) R94.30 Pain in limb (Chronic) M79.609 Dizziness and giddiness (Chronic) R42 Fatigue (Chronic) R53.83 Mild aortic insufficiency (Chronic) I35.1 Pain in left shoulder (Chronic) M25.512 Atherosclerosis of coronary artery bypass graft(s), unspecified, with other forms of angina pectoris (Chronic) I25.708 Intermittent claudication (Chronic) I73.9 Allergies No Known Allergies Allergy (Verified 12/30/17 11:39) Home Medications: Ambulatory Orders Medication Instructions Recorded Tamsulosin HCl [Flomax] 0.4 mg PO DAILY 03/06/16 metoprolol tartrate 25 mg tablet 25 mg PO BID tab 06/23/17 ranolazine ER 1,000 mg 1,000 mg PO BID tab 06/23/17 tablet,extended release,12 hr nitroglycerin 0.4 mg sublingual 0.4 mg SUBLINGUAL Q5M PRN #25 tab 12/30/17 tablet Multivitamin [Multiple Vitamins] 1 each PO DAILY 01/10/18 famotidine 40 mg tablet 40 mg PO QDAY 08/01/18 Oxycodone [Oxyir] 5 - 10 mg PO Q4H PRN PRN 7 Days 02/08/18 #84 tab Acetaminophen [Tylenol] 650 mg PO Q8 PRN 02/10/18 Aspirin 325 mg PO BIDCM 02/10/18 Surgical History: Surgical History (Last Reviewed 12/30/17 @ 11:41 by Leeanna Calvo) Hx of CABG Onset Date: ~05/2005 Z95.1 VAZQUEZ to LAD, SVG to RCA and diag branch of LAD and repair of dissection with graft and reimplantation of SVG to RCA and diag branch H/O cardiac radiofrequency ablation Onset Date: ~10/2006 Z98.890 History of PTCA Z98.61 PTCA of the CFX intracoronary stent History of arthroscopy Onset Date: ~07/2011 Z98.890 & repair of right rotator cuff tear History of left heart catheterization (LHC) Onset Date: ~09/2007 Z98.890 05/2005, 09/2007, 10/2006, 02/2008, 10/2013, 03/30/2016 Lives: Alone Smoking Status: Never smoker Tobacco Use: Non-smoker Alcohol: None Drugs: None Review of Systems Constitutional: Reports: - - complete ROS negative except as documented in HPI VTE Information - Inpt Only VTE Present on Admission: No VTE Mechan Device Prophylaxis: SCD's, Thigh High RENETTA Hose VTE Pharm Prophylaxis ordered?: No Reason prophylaxis not ordered:: Treatment Not Indicated - Per DR. Schmidt, he wants patient to be on ASA BID and no other pharmacological prohylaxis - Physical Exam General: Alert HEENT: Normocephalic Neck: Supple Lungs: Clear to auscultation Cardiovascular: Normal S1, Normal S2 Abdomen: Bowel Sounds Present Extremities: No cyanosis Skin: - - right knee redness Musculoskeletal: - - Right knee tenderness, swelling Neurological: Cranial nerves II-XII grossly intact, Deep Tendon Reflexes 2+/4 and Symmetrical, Neuro grossly intact, Motor Exam 5/5 strength throughout, Muscle tone normal, Sensory exam intact to light touch and pain, Coordination normal Psych/Mental Status: Normal Affect Weight: 106.594 kg Body Mass Index (BMI) 35.7 Assessment/Plan The patient is a 82 year old CM with PMH HTN, HLD, CAD s/p CABG, S/P stents, morbid obesity, H/O Atrial flutter s/p ablation not on AC per Cardiology, BPH, had recent right total knee replacement on 02/06/[address] Schmidt now admitted to [facility] with debility s/p right TKR, for > 3 hrs therapy daily, with a goal of returning back home at or near his prior level of functional independence. Plan -PT for gait stability -OT for ADLs -Analgesics as needed -Bowel protocol -HTN- on Lopressor, goal BP < 130/80 mmHg -CAD s/p CABG and stents- stable, on ASA and Ranolazine -H/O atrial flutter- s/p ablation, management per Cardiology Dr. Bustillo/Dr. Brito, is not on AC per Cardiology, will defer further management to Cardiology as outpatient, stroke risk discussed with patient. -BPH-on Tamsulosin -Fall precautions -GI/DVT prophylaxis- SCDs, RENETTA hose knee high, Dr. Schmidt wants him to be on ASA 325 mg PO BID post surgery for 30 days and does not want to be on pharmacological DVT prophylaxis. Will follow surgery recommendations. DVT risks discussed with patient. -Follow up- Per Dr. Schmidt's office directions, the dressing has to be removed in 3 days on 02/13/18, hao to be removed on 02/17/18. Follow with Dr. Schmidt -Hospitalist consult and further medical management per hospitalist recommendations. Code Visit Inpatient E&M: [id number] Init Hosp L3
--- NOTE | 2018-02-10 13:39 | PCM.RU.PYE ---
Admission Information Status Changes from Prescreening?: No changes Identified Actual Problem List:: Falls, Mobility Impaired, Self Care Deficit Potential Problem List:: DVT, Bleeding, Infection, UTI, Aspiration, Falls, Skin Integrity, Depression Risk of Complications DVT: LMWH, RENETTA Hose, Sequential Compression Device Bleeding: Monitor Lab Values, Nursing to Teach Precautions for anti-coagulation therapy., Wound, if applicable, to be assessed every shift., Stroke patients assessed for lethargy or change in status. Infection: Clinical Staff to Monitor for S/S of infection:, S/S of infection include fever, redness, warmth, etc. Urinary Tract Infection: Monitor for frequency, burning, discomfort, or incontinence., Nursing will obtain urine sample for urinalysis and C&S when ordered. Aspiration: Clinical staff will monitor for coughing, drooling, congestion., Speech will evaluate swallowing and dsyphasia., Nursing will monitor patient swallowing during meals. Falls: Patient will be evaluated for Fall Precautions, Patient will be placed on Fall Precautions as indicated per protocol. Skin Breakdown: Nursing will assess skin daily using assessment tool., Nursing will place on Skin Breakdown Precautions as indicated. Pain: Clinical staff will assess patient's pain level per protocol., Medications will be given, if needed, and the pain level reassessed., Other methods: Massage, distraction, decrease stimulus, etc. used PRN. Plan of Care Patient requires physician specializing in physical medicine and rehab oversight to provide close medical supervision of rehab issues including: Pain Management, Sleep Problems, Bowel and Bladder, Medical and co-morbidity Management, DVT prophylaxis, Rehabilitation Leadership, Coordination of treatment team Patient needs Physical Therapy: For a minimum of 1 hour, At least 5 out of 7 days Patient needs Physical Therapy to improve:: Mobility, Mobility, Mobility, Strengthening, Transfers, Stretching, ROM, Endurance, Stairs, Gait, Balance Patient needs Occupational Therapy: For a minimum of 1 hour, At least 5 out of 7 days Patient needs Occupational Therapy to improve ADL's incl.: Eating, Grooming, Bathing, Dressing, Toileting, Toilet transfers, Community Reintegration, Higher functioning activities, Household tasks, Adaptive Equipment, Splinting, Other activities as determined Patient requires 24/7 Rehabilitation Nursing for: Pain Issues, Identifying and preventing risk factors, Monitoring and reporting current medical conditions, Assisting with ambulation, transfer, and all ADL's, Teaching patients about disease process and medications, Family teaching, Providing safe environment, Bowel and Bladder Issues, Skin integrity, Medication Management Patient needs Sweeper Operator Highways/ Case Management for: Discharge Planning, Arranging Home Equipment or Services, Family Interventions Patient needs Dietary and Nutrition Services for: Adequate Nutrition, Nutritional Supplements, Nutritional Education Goals Patient will remain: free from falls, or injury at time of discharge. Patient will perform bed mobility at: MOD I level of assist. Patient will complete transfers from bed to chair at: MOD I level of assist. Patient will ambulate: 100 feet, with MOD I assist, with LRD Patient will complete upper body dressing at: MOD I level of assist. Patient will complete lower body dressing at: MOD I level of assist. Patient will complete toileting at: MOD I level of assist. Patient will perform bathing at: MOD I level of assist. Patient will complete grooming at: MOD I level of assist. Patient will complete home management skills at: MOD I level of assist. Patient will achieve: 12 stairs, at MOD I assist Patient will have pain level of: of 3 or less Patient's skin will: remain intact, free from infection. Patient will receive: adequate nutrition. Discharge Planning Pt Prognosis for Sig. Practical Improv. w/in Reasonable Time: Good Estimated Length of stay (days): 10 Anticipated D/C Destination: Home Was Preadmission Assessment Accurate?: Yes
[2018-02-10 14:37] VITALS: BP 115/61; PULSE 66; RESP 16; TEMP 37; O2SAT 94
[2018-02-10] MEDS: oxyCODONE 5 MG Tablet PO ×2 (14:41→21:42)
--- NOTE | 2018-02-10 16:35 | PCM.CONS.GEN ---
Problem List (1) Status post total knee replacement, right Status: Acute (2) Prinzmetal angina Status: Chronic (3) HLD (hyperlipidemia) Status: Chronic Qualifiers: (4) HTN (hypertension) Status: Chronic Qualifiers: (5) CAD (coronary artery disease) Status: Chronic Qualifiers: (6) Malignant pericardial effusion Status: Chronic (7) Atrial flutter Status: Chronic (8) Palpitations Status: Chronic (9) Shortness of breath Status: Chronic (10) Precordial chest pain Status: Chronic (11) Aortocoronary bypass status Status: Chronic (12) History of percutaneous transluminal coronary angioplasty Status: Chronic (13) Abnormal result of cardiovascular function study, unspecified Status: Chronic (14) Pain in limb Status: Chronic (15) Dizziness and giddiness Status: Chronic (16) Fatigue Status: Chronic (17) Mild aortic insufficiency Status: Chronic (18) Pain in left shoulder Status: Chronic (19) Atherosclerosis of coronary artery bypass graft(s), unspecified, with other forms of angina pectoris Status: Chronic (20) Intermittent claudication Status: Chronic Reason for Consult Date of Consultation: 02/10/18 Reason for Consultation: For medical management of multiple comorbidities History of Present Illness: The patient is a 82 year old M with multiple comorbidities including coronary artery disease status post CABG long time ago probably 20 years ago, stents last one about 3 years ago, hypertension, dyslipidemia atrial flutter status post ablation BPH had right TKR on 02/06/[address] Smith and was sent home but patient has difficulty moving around on walker with debility and pain and therefore admitted in acute rehab for PT. Patient denies active symptoms of chest pain, shortness of breath at rest, palpitation but he states easily gets short of breath on walking or exertion. Denies shortness of breath on laying flat or orthopnea. [] No lower urinary tract symptoms or constipation. Past Medical History Past Medical History (Chronic Problems): Chronic Problems (Last Reviewed 12/30/17 @ 11:41 by Leeanna Calvo) Prinzmetal angina (Chronic) HLD (hyperlipidemia) (Chronic) HTN (hypertension) (Chronic) CAD (coronary artery disease) (Chronic) Malignant pericardial effusion (Chronic) Atrial flutter (Chronic) Palpitations (Chronic) Shortness of breath (Chronic) Precordial chest pain (Chronic) Aortocoronary bypass status (Chronic) History of percutaneous transluminal coronary angioplasty (Chronic) Abnormal result of cardiovascular function study, unspecified (Chronic) Pain in limb (Chronic) Dizziness and giddiness (Chronic) Fatigue (Chronic) Mild aortic insufficiency (Chronic) Pain in left shoulder (Chronic) Atherosclerosis of coronary artery bypass graft(s), unspecified, with other forms of angina pectoris (Chronic) Intermittent claudication (Chronic) Medical History: Medical History (Last Reviewed 12/30/17 @ 11:41 by Leeanna Calvo) Prinzmetal angina (Chronic) I20.1 HLD (hyperlipidemia) (Chronic) E78.5 HTN (hypertension) (Chronic) I10 CAD (coronary artery disease) (Chronic) I25.10 Malignant pericardial effusion (Chronic) C80.1, I31.8 Atrial flutter (Chronic) I48.92 Palpitations (Chronic) R00.2 Shortness of breath (Chronic) R06.02 Precordial chest pain (Chronic) R07.2 Aortocoronary bypass status (Chronic) Z95.1 History of percutaneous transluminal coronary angioplasty (Chronic) Z98.61 Abnormal result of cardiovascular function study, unspecified (Chronic) R94.30 Pain in limb (Chronic) M79.609 Dizziness and giddiness (Chronic) R42 Fatigue (Chronic) R53.83 Mild aortic insufficiency (Chronic) I35.1 Pain in left shoulder (Chronic) M25.512 Atherosclerosis of coronary artery bypass graft(s), unspecified, with other forms of angina pectoris (Chronic) I25.708 Intermittent claudication (Chronic) I73.9 Allergies No Known Allergies Allergy (Verified 12/30/17 11:39) Home Medications: Ambulatory Orders Medication Instructions Recorded Tamsulosin HCl [Flomax] 0.4 mg PO DAILY 03/06/16 metoprolol tartrate 25 mg tablet 25 mg PO BID tab 06/23/17 ranolazine ER 1,000 mg 1,000 mg PO BID tab 06/23/17 tablet,extended release,12 hr nitroglycerin 0.4 mg sublingual 0.4 mg SUBLINGUAL Q5M PRN #25 tab 12/30/17 tablet Multivitamin [Multiple Vitamins] 1 each PO DAILY 01/10/18 famotidine 40 mg tablet 40 mg PO QDAY 01/25/18 Oxycodone [Oxyir] 5 - 10 mg PO Q4H PRN PRN 7 Days 02/08/18 #84 tab Acetaminophen [Tylenol] 650 mg PO Q8 PRN 02/10/18 Aspirin 325 mg PO BIDCM 02/10/18 Surgical History: Surgical History (Last Reviewed 12/30/17 @ 11:41 by Leeanna Calvo) Hx of CABG Onset Date: ~05/2005 Z95.1 VAZQUEZ to LAD, SVG to RCA and diag branch of LAD and repair of dissection with graft and reimplantation of SVG to RCA and diag branch H/O cardiac radiofrequency ablation Onset Date: ~10/2006 Z98.890 History of PTCA Z98.61 PTCA of the CFX intracoronary stent History of arthroscopy Onset Date: ~07/2011 Z98.890 & repair of right rotator cuff tear History of left heart catheterization (LHC) Onset Date: ~09/2007 Z98.890 05/2005, 09/2007, 10/2006, 02/2008, 10/2013, 03/30/2016 Lives: Alone Smoking Status: Never smoker Tobacco Use: Non-smoker Alcohol: None Drugs: None - *Family History Paternal Family History: Family History (Last Reviewed 12/30/17 @ 11:41 by Leeanna Calvo) Father CAD (coronary artery disease) CHF (congestive heart failure) Mother Heart disease Brother Diabetes Cancer Hx of CABG CAD (coronary artery disease) Sister COPD (chronic obstructive pulmonary disease) Diabetes History Items: No pertinent history Review of Systems Constitutional: Reports: - - Obese. Denies: Chills, Fever, Weight Change HEENT: Denies: Head Aches, Sinus Congestion, Sinus Drainage Cardiovascular: Denies: Chest Pain, Palpitations Respiratory: Denies: Cough, Shortness of breath at rest, Sputum production Gastrointestinal: Denies: Abdominal Pain, Nausea, Vomiting Genitourinary: Denies: Dysuria Musculoskeletal: Reports: Joint Pain, Joint stiffness, Joint swelling, Joint Tenderness Skin: Denies: Rash, Wounds Neurological: Reports: Balance problems. Denies: Focal weakness, Numbness, Tingling Psychiatric: Denies: Anxiety, Depression, Homicidal Ideations, Suicidal Ideations Hematologic/ Lymphatic: Denies: Easy Bruising, Easy Bleeding Patient Problems: Active and Suspected Problems (Last Reviewed 12/30/17 @ 11:41 by Leeanna Calvo) Status post total knee replacement, right (Acute) - Physical Exam General: Alert, Oriented x3, Cooperative HEENT: Atraumatic, PERRLA, EOMI, Normocephalic Neck: Supple, No JVD, Negative Carotid Bruits Lungs: Clear to auscultation, Normal air movement, No rhonchi, No wheeze Cardiovascular: Regular rate, Regular Rhythm, Normal S1, Normal S2, No murmurs Abdomen: Bowel Sounds Present, Soft, Non Tender, Non-Distended Extremities: Capillary Refill Less than 3 Seconds, Edema - Mild edema around the right knee. very minor stain of knee dressing at 2 spots. Skin: No rashes, No breakdown, - - Right TKR operative wound Musculoskeletal: No Tenderness to Palpation of Joints or Extremities Neurological: Cranial nerves II-XII grossly intact Psych/Mental Status: Normal Affect, Appropriate Vital Signs Temp Pulse Resp BP Pulse Ox 98.6 F 66 16 115/61 94 02/10/18 14:37 02/10/18 14:37 02/10/18 14:37 02/10/18 14:37 02/10/18 14:37 Oxygen Delivery Method Room Air Weight: 232 lb 2.348 oz Body Mass Index (BMI) 35.7 Assessment/Plan All Active Problems (Last Reviewed 12/30/17 @ 11:41 by Leeanna Calvo) Status post total knee replacement, right (Acute) The patient is a 82 year old M with multiple comorbidities including coronary artery disease status post CABG long time ago probably 20 years ago, stents last one about 3 years ago, hypertension, dyslipidemia atrial flutter status post ablation BPH had right TKR on 02/06/[address] Smith and was sent home but patient has difficulty moving around on walker with debility and pain and therefore admitted in acute rehab for PT. Patient denies active symptoms of chest pain, shortness of breath at rest, palpitation but he states easily gets short of breath on walking or exertion. Denies shortness of breath on laying flat or orthopnea. [] No lower urinary tract symptoms or constipation. 1. Debility secondary to recent right TKR: Patient had surgery on 02/06/2018. Active PT. Pain control as needed. Dressing changes scheduled on next Tuesday. On oxycodone for breakthrough pain. 3. Coronary artery disease status post CABG and stents, atrial flutter status post ablation hypertension and dyslipidemia: Continue home medications including metoprolol, Ranexa. Patient follows Dr. Jeronimo. Last EKG shows sinus rhythm with incomplete left bundle block pattern on 12/30/2017. 3. Other chronic comorbidities include mild peripheral artery disease with intermittent claudication: As per the patient and nursing staff, he had possible DVT and was treated with anticoagulant about [address] Pan but no official documentation available to substantiate that. Patient's son is not aware of that. Will need office reports less documentation on Tuesday from Dr. Pan office to document that although does not affect his treatment regimen. Bowel regimen as needed for constipation DVT prophylaxis on aspirin 325 mg twice daily as per orthopedic surgeon recommendation. Labs reviewed, last one on 02/07/2018. Home medication reconciliation done. Code Visit Inpatient E&M: 12121 Init Hosp L2
[2018-02-10] MEDS: Aspirin 325 MG Tablet PO (16:48)
[2018-02-10 18:50] VITALS: O2SAT 95
[2018-02-10 19:20] VITALS: BP 124/66; PULSE 64; RESP 18; TEMP 36.7; O2SAT 95
[2018-02-10 21:34] VITALS: BP 124/66; PULSE 64; RESP 18; TEMP 36.6; O2SAT 95
[2018-02-10] MEDS: Ranolazine 500 MG Tablet 1000 MG PO (21:42)
[2018-02-10] MEDS: Senna/Docusate Sodium 1 Tablet 2 TABLET PO (21:42)
[2018-02-10 21:44] VITALS: BP 124/66; PULSE 64
[2018-02-10] MEDS: Metoprolol Tartrate 25 MG Tablet PO (21:44)
[2018-02-11] MEDS: Acetaminophen 325 MG Tablet 650 MG PO (00:45)
[2018-02-11] MEDS: oxyCODONE 5 MG Tablet PO ×2 (06:19→20:19)
[2018-02-11 07:24] VITALS: BP 113/69; PULSE 64; RESP 18; TEMP 36.4; O2SAT 94
[2018-02-11 07:54] VITALS: PULSE 64
[2018-02-11] MEDS: Ranolazine 500 MG Tablet 1000 MG PO ×2 (07:54→20:18)
[2018-02-11] MEDS: Aspirin 325 MG Tablet PO ×2 (07:54→16:46)
[2018-02-11] MEDS: Famotidine 20 MG Tablet 40 MG PO (07:54)
[2018-02-11] MEDS: Senna/Docusate Sodium 1 Tablet 2 TABLET PO ×2 (07:54→20:18)
[2018-02-11] MEDS: Multivitamins,Therapeutic Tablet 1 TABLET PO (07:54)
[2018-02-11] MEDS: Metoprolol Tartrate 25 MG Tablet PO ×2 (07:54→20:18)
--- NOTE | 2018-02-11 08:15 | NURSING ---
ecchymotic areas with lines noted to rle after removal of SCDs . no drng noted and 1+ pitting edema continues to rle. SCDs d/c. Thigh high continues at this time.
[2018-02-11 08:44] LABS: Absolute Lymphocyte Count 0.51 X10^3/ul (0.83-4.51); Absolute Neutrophil Count 4.4 X10^3/uL (2.0-7.7); Differential Indicated SCAN CRITERIA MET; Eosinophil# 0.16 X10^3/uL; Eosinophils% 2.6 % (0-5); Lymphocyte # 0.51 X10^3/ul (4.0); Lymphocyte % 8.2 % (19-41); Mean Corp Hgb Conc 34.3 g/gl (32-36); Mean Corpuscular Hgb 36.5 pg (27.0-32.0); Mean Corpuscular Volume 106.4 fL (80-94); Mean Platelet Vol. 11.1 fl (6.2-12.0); Monocyte# 1.08 X10^3/uL; Monocyte% 17.4 % (0-10); Neutrophil # 4.42 X10^3/uL (2.7-7.7); Neutrophil % 71.3 % (47-70); POSITIVE COUNT NO; POSITIVE DIFFERENTIAL YES; POSITIVE MORPHOLOGY NO; Platelet Count 169 K/mm3 (150-450); RBC Distribution Width CV 14.1 % (11.6-14.6); RBC Distribution Width SD 54.1 fl (35.1-43.9); Red Blood Count 3.29 M/mm3 (4.6-6.2); White Blood Count 6.2 K/mm3 (4.4-11.0)
[2018-02-11 08:54] LABS: ALB/GLOB Ratio 0.7 RATIO (0.9-2.4); AST(SGOT) 22 U/L (15-37); Alanine Aminotransfer ALT/SGPT 19 U/L (16-61); Albumin, Serum 2.8 g/dL (3.2-5.0); Alkaline Phosphatase 60 U/L (45-117); Anion Gap 5 (5-15); BUN 17 mg/dL (7-18); Calcium,Total 8.8 mg/dL (8.5-10.1); Chloride 103 mmol/L (98-107); Creatinine, Serum 1.13 mg/dL (0.70-1.30); EST Glomerular Filtration Rate 66 mL/min (>60); Est Glom Filt Rate - Afr Amer 80 mL/min (>60); Estimated Creatinine Clearance 50.44 ml/min; Glucose 166 mg/dL (74-106); Potassium 4.2 mmol/L (3.5-5.1); Protein, Total 6.8 g/dL (6.4-8.2); Sodium Level 139 mmol/L (136-145)
[2018-02-11] MEDS: Ondansetron ODT 4 MG Tablet PO ×2 (09:43→14:54)
--- NOTE | 2018-02-11 09:44 | NURSING ---
prhelio silver given d/t nausea during adls with OT. per patient his pain pills made him sick. patient resting in bed at this time and drinking gingerale. dr walsh aware of glucose level of 166 hgba1c ordered.
--- NOTE | 2018-02-11 10:38 | NURSING ---
patient resting in bed with eyes closed, no acute distress noted. no further c/o nausea.
[2018-02-11 11:00] LABS: Hemoglobin A1c 5.7 % (4.2-6.3)
--- NOTE | 2018-02-11 12:12 | NURSING ---
dr walsh aware of hgba1c of 5.7 no new orders.
[2018-02-11 15:42] VITALS: O2SAT 98
[2018-02-11] MEDS: Tamsulosin HCl 0.4 MG Capsule PO (16:46)
--- NOTE | 2018-02-11 17:06 | NURSING ---
patient denies any need for prn pain medication offered multiple times this shift. patient resting bed, no further nausea.
[2018-02-11 18:22] LABS: Bacteria 0 SEEN /hpf (None Seen); Mucous, Urine 0 SEEN /hpf (<or=2+); Red Blood Cells-Urine 0 SEEN /hpf (0-5); Squamous Epithelial Cells - UA 0 SEEN /hpf (0-5)
[2018-02-11 19:07] LABS: Color, Urine Yellow (Yellow); Glucose, Dipstick Normal (Normal); Ketone-Dipstick Negative (Negative); Leukocyte Esterase-Dipstick 25 /ul (Negative); Nitrite-Dipstick Negative (Negative); Occult Blood-Urine Negative /ul (Negative); Protein-Dipstick Negative (Negative); Urine Bilirubin Dipstick Negative (Negative); Urine Clarity Clear (Clear); Urine Urobilinogen Normal (Normal); Urine pH 6.5 (5.0 - 8.0)
[2018-02-11 19:27] LABS: White Blood Cells 0-5 SEEN /hpf (0-5)
[2018-02-11 20:07] VITALS: BP 140/71; PULSE 75; RESP 17; TEMP 36.8; O2SAT 94
[2018-02-11 20:18] VITALS: BP 140/71; PULSE 75
[2018-02-12] MEDS: Ondansetron ODT 4 MG Tablet PO ×2 (05:38→12:07)
--- NOTE | 2018-02-12 05:50 | NURSING ---
c/o nausea this am. Denies pain. Afebrile. Zofran given
[2018-02-12] MEDS: Magnesium Hydroxide 30 ML UDC PO (05:59)
[2018-02-12 07:42] VITALS: O2SAT 96
[2018-02-12 07:59] VITALS: BP 127/70; PULSE 73; RESP 17; TEMP 36.6; O2SAT 94
[2018-02-12 08:05] VITALS: PULSE 73
[2018-02-12] MEDS: Ranolazine 500 MG Tablet 1000 MG PO ×2 (08:05→20:29)
[2018-02-12] MEDS: Multivitamins,Therapeutic Tablet 1 TABLET PO (08:05)
[2018-02-12] MEDS: Famotidine 20 MG Tablet 40 MG PO (08:05)
[2018-02-12] MEDS: Aspirin 325 MG Tablet PO ×2 (08:05→17:14)
[2018-02-12] MEDS: Senna/Docusate Sodium 1 Tablet 2 TABLET PO ×2 (08:05→20:29)
[2018-02-12] MEDS: Metoprolol Tartrate 25 MG Tablet PO ×2 (08:05→20:30)
[2018-02-12] MEDS: Acetaminophen 325 MG Tablet 650 MG PO ×2 (08:07→17:14)
--- NOTE | 2018-02-12 12:23 | PCM.PN.HOSP ---
Patient Problems: Active and Suspected Problems (Last Reviewed 12/30/17 @ 11:41 by Leeanna Calvo) Status post total knee replacement, right (Acute) Subjective: Patient has erythematous rash in right lower leg after SCDs was applied. Right above-knee RENETTA hose was ordered by Dr. Smith but patient wants below-knee Vitals/I&O's: Vital Signs Temp Pulse Resp BP Pulse Ox 98 F 73 17 127/70 H 94 02/12/18 07:59 02/12/18 08:05 02/12/18 07:59 02/12/18 07:59 02/12/18 07:59 Oxygen Delivery Method Room Air Weight: 232 lb 2.348 oz Body Mass Index (BMI) 35.7 Intake and Output for Last 24 Hours 02/10/18 02/11/18 02/12/18 23:59 23:59 23:59 Intake Total 240 / 240 240 / 240 320 / 320 Output Total 200 / 200 Balance 240 / 240 40 / 40 320 / 320 General: Alert, Oriented x3, Cooperative HEENT: Atraumatic, PERRLA, EOMI, Normocephalic Neck: Supple, No JVD, Negative Carotid Bruits Lungs: Clear to auscultation, Normal air movement, No rhonchi, No wheeze Cardiovascular: Regular rate, Normal S1, Normal S2, No murmurs Abdomen: Bowel Sounds Present, Soft, Non Tender Extremities: No edema, Capillary Refill Less than 3 Seconds Skin: No rashes, No breakdown Musculoskeletal: Arthritic Changes, - - Right TKR. Dressing is dry. Neurological: Cranial nerves II-XII grossly intact Psych/Mental Status: Normal Affect, Appropriate Laboratory Results 02/11/18 18:20: Urine Color Yellow, Urine Clarity Clear, Urine pH 6.5, Ur Specific [place] 1.010, Urine Protein Negative, Urine Glucose (UA) Normal, Urine Ketones Negative, Urine Occult Blood Negative, Urine Nitrite Negative, Urine Bilirubin Negative, Urine Urobilinogen Normal, Ur Leukocyte Esterase 25 H, Urine RBC 0 SEEN, Urine WBC 0-5 SEEN, Ur Squamous Epith Cells 0 SEEN, Urine Bacteria 0 SEEN, Urine Mucus 0 SEEN Current Medications Acetaminophen (Tylenol) 650 mg PO Q8H PRN PRN PRN Reason: PAIN Last Admin: 02/12/18 08:07 Dose: 650 mg [facility]ir[facility] ([facility]in) [facility] Stop: 03/10/18 17:01 Last Admin: 02/12/18 08:05 Dose: 325 mg Bisacodyl (Dulcolax) 10 mg RECTAL .PRN X 1 PRN PRN Reason: Constipation Famotidine (Pepcid) 40 mg PO DAILY [facility] Last Admin: 02/12/18 08:05 Dose: 40 mg Magnesium Hydroxide (Milk Of Magnesia) 30 ml PO .PRN X 1 PRN PRN Reason: Constipation Last Admin: 02/12/18 05:59 Dose: 30 ml Metoprolol Tartrate (Lopressor (Beta Sariah)) 25 mg PO BID [facility] Last Admin: 02/12/18 08:05 Dose: 25 mg Multivitamins (Multivitamin) 1 tablet PO DAILY@0800 [facility] Last Admin: 02/12/18 08:05 Dose: 1 tablet Nitroglycerin (Nitrostat) 0.4 mg SUBLINGUAL Q5M PRN PRN Reason: Chest Pain Ondansetron HCl (Zofran Odt) 4 mg PO Q6H PRN PRN PRN Reason: NAUSEA Last Admin: 02/12/18 12:07 Dose: 4 mg Oxycodone HCl (Oxyir) 5 - 10 mg PO Q4H PRN PRN PRN Reason: PAIN Last Admin: 02/11/18 20:19 Dose: 5 mg Ranolazine (Ranexa) 1,000 mg PO BID [facility] Last Admin: 02/12/18 08:05 Dose: 1,000 mg Senna/Docusate Sodium (Senokot-S, Alisson-Colace) 2 tablet PO BID [facility] Last Admin: 02/12/18 08:05 Dose: 2 tablet Tamsulosin HCl (Flomax) 0.4 mg PO DAILY@1730 [facility] Last Admin: 02/11/18 16:46 Dose: 0.4 mg Medical Necessity - Tobacco Use Smoking Status: Never smoker Tobacco Use: Non-smoker Assessment/Plan All Active Problems (Last Reviewed 12/30/17 @ 11:41 by Leeanna Calvo) Status post total knee replacement, right (Acute) The patient is a 82 year old M with multiple comorbidities including coronary artery disease status post CABG long time ago probably 20 years ago, stents last one about 3 years ago, hypertension, dyslipidemia atrial flutter status post ablation BPH had right TKR on 02/06/[address] Smith and was sent home but patient has difficulty moving around on walker with debility and pain and therefore admitted in acute rehab for PT. Patient denies active symptoms of chest pain, shortness of breath at rest, palpitation but he states easily gets short of breath on walking or exertion. Denies shortness of breath on laying flat or orthopnea. [] No lower urinary tract symptoms or constipation. 1. Debility secondary to recent right TKR: Patient had surgery on 02/06/2018. Active PT. Pain control as needed. Dressing changes scheduled on next Tuesday. On oxycodone for breakthrough pain. Patient has mild skin/subcutaneous bruise secondary to SCDs. Patient is on DVT prophylaxis and on active physical therapy. Patient wants a right below knee RENETTA hose and ordered. 3. Coronary artery disease status post CABG and stents, atrial flutter status post ablation hypertension and dyslipidemia: Continue home medications including metoprolol, Ranexa. Patient follows Dr. Jeronimo. Last EKG shows sinus rhythm with incomplete left bundle block pattern on 12/30/2017. 3. Other chronic comorbidities include mild peripheral artery disease with intermittent claudication: As per the patient and nursing staff, he had possible DVT and was treated with anticoagulant about [address] Pan but no official documentation available to substantiate that. Patient's son is not aware of that. Will need office reports less documentation on Tuesday from Dr. Pan office to document that although does not affect his treatment regimen. Bowel regimen as needed for constipation DVT prophylaxis on aspirin 325 mg twice daily as per orthopedic surgeon recommendation. Labs reviewed, last one on 02/07/2018. Home medication reconciliation done. Code Visit Inpatient E&M: 43346 Subs Hosp L2
--- NOTE | 2018-02-12 12:32 | NURSING ---
patient ambulated > 150 ft with walker x min assist and woked on nu step 5 minutes and 15 seconds. patient sitting up in dining area eating lunch.
--- NOTE | 2018-02-12 13:22 | NURSING ---
patient ambulated back to room with walker
[2018-02-12] MEDS: Tamsulosin HCl 0.4 MG Capsule PO (17:14)
--- NOTE | 2018-02-12 17:17 | NURSING ---
patient voiced to dr walsh that the thigh high hose is cutting into his skin. new order to change to knee high yunier hose.
[2018-02-12 20:21] VITALS: BP 108/69; PULSE 64; RESP 17; TEMP 36.8; O2SAT 98
[2018-02-12 20:30] VITALS: BP 108/69; PULSE 64
[2018-02-12] MEDS: oxyCODONE 5 MG Tablet PO (20:30)
[2018-02-13] MEDS: Ondansetron ODT 4 MG Tablet PO ×2 (05:45→21:14)
[2018-02-13] MEDS: oxyCODONE 5 MG Tablet PO ×2 (06:22→13:56)
[2018-02-13] MEDS: Ranolazine 500 MG Tablet 1000 MG PO ×2 (07:47→21:32)
[2018-02-13 07:48] VITALS: PULSE 76
[2018-02-13] MEDS: Aspirin 325 MG Tablet PO ×2 (07:48→17:25)
[2018-02-13] MEDS: Famotidine 20 MG Tablet 40 MG PO (07:48)
[2018-02-13] MEDS: Metoprolol Tartrate 25 MG Tablet PO ×2 (07:48→21:31)
[2018-02-13] MEDS: Multivitamins,Therapeutic Tablet 1 TABLET PO (07:48)
[2018-02-13] MEDS: Senna/Docusate Sodium 1 Tablet 2 TABLET PO ×2 (07:49→21:31)
[2018-02-13 08:00] VITALS: BP 122/64; PULSE 76; RESP 18; TEMP 36.6; O2SAT 97
--- NOTE | 2018-02-13 13:02 | CASEMGMT ---
Team meeting held. Patient present as well as patient son. Patient approved 14 Medicare days with a discharge on or by 02/24/18. No discharge date set at this time. Patient to be re-teamed next week. Patient plans to discharge to home alone at time of discharge. Patient to continue with further care and treatment on the Inpatient Rehab Unit. Will continue to follow. Petrona EDUARDO, CARDIOVASCULAR SURGICAL TECH
--- NOTE | 2018-02-13 14:11 | PCM.OP.BLANK ---
Operative Report Date of Procedure: 02/06/18 Primary Surgeon/Physician: Peter Smith fish hatchery specialist: Chapincito Ferguson PA-C fish hatchery specialist: Pre-Operative Diagnosis: Osteoarthritis right knee Post-Operative Diagnosis: same Surgery/Procedure Performed: Right TKR using Drea size 6 PS femur, size 6 tibia, 11 mm polyethylene spacer and 38 mm patella (all components cemented) Estimated Blood Loss: 25cc Specimen's Removed: bone Type of Anesthesia: spinal ASA Class: 3 Implants: [ ] Indications: Patient has severe end-stage osteoarthritis diagnosed via x-rays in the knee. They have failed all forms of conservative measures including activity modification, injections, anti-inflammatories, use of assistive device. The patient has pain that affects on a daily basis and prevents him from doing things that they enjoyed. They have elected to undergo the above procedure. The risks of the procedure were discussed at length and their questions were answered. Procedure Description: The patient was greeted in the preoperative area. The [ right] knee was then marked with a surgical marker. Patient was then taken to or [address]. They were administered a dose of antibiotics as well as tranexamic acid. Once adequate anesthesia was obtained and airway was secured to placed in supine position on the operating room table. A well-padded tourniquet was placed on the affected extremity. Leg was then prepped and draped in the usual sterile fashion from the knee down. Ioban was used on the skin. Surgical timeout was then performed and confirmed with all present. Six-inch Esmarch was used to examine the limb and tourniquet was then inflated to 250 mmHg. A longitudinal incision was then planned and carried out in the anterior aspect of the knee. The dissection was then carried the length of the incision the extensor mechanism was identified. Standard medial parapatellar arthrotomy was then performed revealing severe eburnation of bone and periarticular osteophytes. There is complete loss of cartilage especially in the medial compartment with varus alignment. Anterior fat pad was removed for visualization purposes and the anterior medial aspect of the tibia was skeletonized for exposure to the knee. The knee was then flexed the patella was inverted. Opening reamer was then used in the femur approximately 1 cm anterior to the attachment of the PCL. The intramedullary valgus wand was then placed in the femur set at 5? of valgus. The distal femoral cutting jig was then applied to the femur with anticipated resection of approximately 8 mm. This was then made with a oscillating saw. The sizing guide was then placed referencing off the posterior condyles and also reference off the epicondylar axis. This was measured and the appropriate size 4-in-1 cutting jig was then applied to the distal femur. Anterior posterior cuts were made followed by the anterior and posterior chamfer cuts. These bony pieces and fragments were removed and placed on the back table. Posterior retractor was then utilized and the tibia was subluxed anteriorly. Intramedullary tibial alignment jig was then applied to the tibia referencing off the medial one third of the tibial tubercle the anterior tibial spine the middle aspect of the tibiotalar joint. Also reference off patient's [place] slope. The tibial cutting jig was then pinned with anticipated resection of 2 mm off of the deficient medial tibial condyle. This cut was made with the oscillating saw. Once this was complete a laminar associate automation engineer was utilized in both medial lateral meniscus were removed and a posterior capsular osteophytes were also removed. Posterior capsule release was performed in the posterior capsule as well as the geniculate arteries are treated with the aqua Keyla. The tibia was incised and the appropriate sized tibial tray was then pinned. The femoral box cutting jig was then applied to the femur and the box was prepared removing a portion of the intercondylar notch. The femoral trial was then placed and the knee was trialed. Full flexion-extension were easily achieved. The knee seemed to balance quite nicely. Any remaining osteophytes were removed at this time. Once this was complete the patella was everted and the Myra patella reaming device was then utilized the patella was then placed in the appropriate jig and reamer was then used to remove approximately 9 mm of the undersurface of the patella. A soft tissue remaining was in the way was removed and patella trial was then placed listed maintain excellent tracking using the no thumbs technique. The tibial tray at this point was punched to accommodate the fins of the final implant. At this point cement was mixed on the back table. The trial components were removed and the knee was copiously irrigated. Did use a cocktail of injection for postoperative pain control. The final components were then cemented in the standard fashion and excess cement was removed with cement removal tools and patellar clamp is placed in the patella. As the cement had cured in full extension tourniquet was deflated and hemostasis was perfect with Bovie cautery as well as the aqua Manus. Needle is once again trialed with different size polyethylenes to ensure the full range of motion was achieved as well as excellent balancing ligamentously was achieved. At this point the knee was copiously irrigated. Final implant was then inserted locking mechanism was engaged and confirmed to be locked. The arthrotomy was then closed with #1 Vicryl aggravate type fashion interrupted. Subcutaneous tissue was closed with 0 Vicryl and surgical hao were placed in the skin. A occlusive silver impregnated dressing was then applied followed by well-padded sterile dressing secured with an Carlitos wrap. The patient was taken to the PACU in stable condition. No complications known at this time. Postoperatively we will maintain standard total knee postoperative protocol. The use of the physician orthodontic assistant was integral during this procedure. They assisted with positioning placement of the tourniquet retracting closure and placement of the dressing. The procedure would have been much more difficult without their expertise and assistance
--- NOTE | 2018-02-13 16:48 | PCM.PN.HOSP ---
Patient Problems: Active and Suspected Problems (Last Reviewed 12/30/17 @ 11:41 by Leeanna Calvo) Status post total knee replacement, right (Acute) Subjective: Right leg feeling better. Still a little stiff. Vitals/I&O's: Vital Signs Temp Pulse Resp BP Pulse Ox 36.6 C 76 18 122/64 H 97 02/13/18 08:00 02/13/18 08:00 02/13/18 08:00 02/13/18 08:00 02/13/18 08:00 Oxygen Delivery Method Room Air Weight: 105.3 kg Body Mass Index (BMI) 35.7 Intake and Output for Last 24 Hours 02/11/18 02/12/18 02/13/18 23:59 23:59 23:59 Intake Total 240 / 240 640 / 640 460 / 460 Output Total 200 / 200 200 / 200 Balance 40 / 40 440 / 440 460 / 460 General: Alert, Cooperative, No apparent distress HEENT: Atraumatic, Normocephalic Oral: Moist Mucosa, No Gingival or Mucosal Lesions/ Ulcerations Neck: No Nodes, Thyroid Normal Size and Texture Lungs: Clear to auscultation, Normal air movement, No rhonchi, No wheeze Cardiovascular: Regular rate, Regular Rhythm, Normal S1, Normal S2 Abdomen: Bowel Sounds Present, Soft, Non Tender, Non-Distended, No Hepato-splenomegaly Extremities: No edema, No Calf Tenderness Skin: No rashes, No breakdown Musculoskeletal: No Tenderness to Palpation of Joints or Extremities, No Muscle Wasting Psych/Mental Status: Normal Affect, Appropriate Microbiology Past 72 Hours 02/11/18 18:20 Urine, Clean Catch Urine Culture - Final Gram negative jared Current Medications Acetaminophen (Tylenol) 650 mg PO Q8H PRN PRN PRN Reason: PAIN Last Admin: 02/12/18 17:14 Dose: 650 mg Aspirin (Aspirin) 325 mg PO BIDCM [facility] Stop: 03/10/18 17:01 Last Admin: 02/13/18 07:48 Dose: 325 mg Bisacodyl (Dulcolax) 10 mg RECTAL .PRN X 1 PRN PRN Reason: Constipation Famotidine (Pepcid) 40 mg PO DAILY [facility] Last Admin: 02/13/18 07:48 Dose: 40 mg Magnesium Hydroxide (Milk Of Magnesia) 30 ml PO .PRN X 1 PRN PRN Reason: Constipation Last Admin: 02/12/18 05:59 Dose: 30 ml Metoprolol Tartrate (Lopressor (Beta Sariah)) 25 mg PO BID [facility] Last Admin: 02/13/18 07:48 Dose: 25 mg Multivitamins (Multivitamin) 1 tablet PO DAILY@0800 [facility] Last Admin: 02/13/18 07:48 Dose: 1 tablet Nitroglycerin (Nitrostat) 0.4 mg SUBLINGUAL Q5M PRN PRN Reason: Chest Pain Ondansetron HCl (Zofran Odt) 4 mg PO Q6H PRN PRN PRN Reason: NAUSEA Last Admin: 02/13/18 05:45 Dose: 4 mg Oxycodone HCl (Oxyir) 5 - 10 mg PO Q4H PRN PRN PRN Reason: PAIN Last Admin: 02/13/18 13:56 Dose: 5 mg Ranolazine (Ranexa) 1,000 mg PO BID [facility] Last Admin: 02/13/18 07:47 Dose: 1,000 mg Senna/Docusate Sodium (Senokot-S, Alisson-Colace) 2 tablet PO BID [facility] Last Admin: 02/13/18 07:49 Dose: 1 tablet Tamsulosin HCl (Flomax) 0.4 mg PO DAILY@1730 [facility] Last Admin: 02/12/18 17:14 Dose: 0.4 mg Medical Necessity - Tobacco Use Smoking Status: Never smoker Tobacco Use: Non-smoker Assessment/Plan All Active Problems (Last Reviewed 12/30/17 @ 11:41 by Leeanna Calvo) Status post total knee replacement, right (Acute) 1. Debility s/p R TKA continue rehab services per rehab team 2. s/p R TKA follow up with orthopaedics as outpt. 3. CAD: stable 4. DVT proph: per ortho. on ASA 325 BID Code Visit Inpatient E&M: 97300 Subs Hosp L2
[2018-02-13] MEDS: Tamsulosin HCl 0.4 MG Capsule PO (17:25)
[2018-02-13 21:15] VITALS: BP 120/71; PULSE 73; RESP 16; RESP 18; TEMP 36.7; O2SAT 92
[2018-02-13 21:31] VITALS: BP 120/71; PULSE 73
[2018-02-13] MEDS: Acetaminophen 325 MG Tablet 650 MG PO (21:32)
--- NOTE | 2018-02-14 03:32 | NURSING ---
Reviewed and agree with PRINCIPAL TECHNICAL SPECIALIST documentation and FIMs charting.
[2018-02-14] MEDS: oxyCODONE 5 MG Tablet PO ×3 (05:59→20:55)
[2018-02-14] MEDS: Senna/Docusate Sodium 1 Tablet 2 TABLET PO ×2 (07:44→20:53)
[2018-02-14] MEDS: Ranolazine 500 MG Tablet 1000 MG PO ×2 (07:44→20:52)
[2018-02-14 07:45] VITALS: PULSE 65
[2018-02-14] MEDS: Multivitamins,Therapeutic Tablet 1 TABLET PO (07:45)
[2018-02-14] MEDS: Aspirin 325 MG Tablet PO ×2 (07:45→17:17)
[2018-02-14] MEDS: Metoprolol Tartrate 25 MG Tablet PO ×2 (07:45→20:52)
[2018-02-14] MEDS: Famotidine 20 MG Tablet 40 MG PO (07:47)
[2018-02-14 10:00] VITALS: BP 120/69; PULSE 65; RESP 16; TEMP 36.6; O2SAT 93
[2018-02-14] MEDS: Tamsulosin HCl 0.4 MG Capsule PO (17:17)
[2018-02-14 19:32] VITALS: BP 113/69; PULSE 81; RESP 18; TEMP 36.8; O2SAT 93
[2018-02-14 20:45] VITALS: PULSE 81; RESP 18; O2SAT 93
[2018-02-14 20:52] VITALS: BP 113/69; PULSE 81
[2018-02-14] MEDS: LORazepam 0.5 MG Tablet PO (20:55)
--- NOTE | 2018-02-15 03:18 | NURSING ---
Pt up within 10 minutes of using urinal for an original amount of 100 ml and then 100 ml.
[2018-02-15] MEDS: oxyCODONE 5 MG Tablet PO (05:12)
[2018-02-15] MEDS: Multivitamins,Therapeutic Tablet 1 TABLET PO (07:55)
[2018-02-15] MEDS: Ranolazine 500 MG Tablet 1000 MG PO ×2 (07:56→20:15)
[2018-02-15] MEDS: Famotidine 20 MG Tablet 40 MG PO (07:56)
[2018-02-15] MEDS: Aspirin 325 MG Tablet PO ×2 (07:56→18:55)
[2018-02-15 07:57] VITALS: PULSE 78
[2018-02-15] MEDS: Senna/Docusate Sodium 1 Tablet 2 TABLET PO (07:57)
[2018-02-15] MEDS: Metoprolol Tartrate 25 MG Tablet PO ×2 (07:57→20:14)
[2018-02-15] MEDS: Ondansetron ODT 4 MG Tablet PO (07:59)
[2018-02-15 08:03] VITALS: BP 112/69; PULSE 62; RESP 16; TEMP 36.4; O2SAT 96
[2018-02-15] MEDS: Tamsulosin HCl 0.4 MG Capsule PO (18:55)
[2018-02-15 20:14] VITALS: BP 122/67; PULSE 81
[2018-02-15 20:16] VITALS: BP 122/67; PULSE 81; RESP 18; TEMP 36.7; O2SAT 96
[2018-02-15] MEDS: LORazepam 0.5 MG Tablet PO ×2 (21:32→23:04)
[2018-02-16] MEDS: oxyCODONE 5 MG Tablet PO ×3 (00:19→17:33)
--- NOTE | 2018-02-16 00:22 | NURSING ---
Pt set off bed alarm and found out of bed walking in room by the time nurse got to room. Nurse asked pt if he felt confused. Pt replied, ya, I guess. Pt reoriented. Upon questioning pt by staff, pt stated his rt leg hurt and he felt tangled in the blankets. Pain med provided by nurse with crackers and jello to offset nausea. Pt repositioned in bed. Polar [facility] refused. Pt complained that the sleeping pill isn't working, even though pt yawns while conversing.
[2018-02-16] MEDS: Acetaminophen 325 MG Tablet 650 MG PO ×2 (03:25→20:55)
--- NOTE | 2018-02-16 04:32 | NURSING ---
Reviewed and agree with PROCESS IMPROVEMENT ANALYST documentation and FIMS charting.
--- NOTE | 2018-02-16 04:33 | NURSING ---
Pt set off bed alarm in an attempt to get up without staff assistance. Pt stated he was tired of the bed and wanted to try repositioning in recliner.
--- NOTE | 2018-02-16 06:02 | NURSING ---
Pt set off chair alarm and was standing in room to use urinal. Pt states he can't wait when he feels the urgency to go! Pt urged by staff to allow staff to ensure pt safety by attending/assisting with pt needs. Pt repositioned with staff assistance in recliner.
[2018-02-16 08:12] VITALS: BP 115/58; PULSE 86; RESP 18; TEMP 37; O2SAT 96
--- NOTE | 2018-02-16 10:51 | PCM.PN.NEU ---
Patient Problems: Active and Suspected Problems (Last Reviewed 12/30/17 @ 11:41 by Leeanna Calvo) Status post total knee replacement, right (Acute) Subjective: At some increased pain in his leg. Nursing has noted redness at the proximal and distal aspect of his incision. There is no drainage. Objective: Awake and alert. Oriented ?3. Normal speech and language. Neurologically intact. Right knee does have some erythema and warmth at the proximal aspect and distal aspect of the incision with no drainage. [place] are still in place they are due to be removed tomorrow. He also has some discomfort with palpation of his right calf. - Physical Exam Vital Signs Temp Pulse Resp BP Pulse Ox 37.0 C 86 18 115/58 L 96 02/16/18 08:12 02/16/18 08:12 02/16/18 08:12 02/16/18 08:12 02/16/18 08:12 Oxygen Delivery Method Room Air Weight: 105.2 kg Body Mass Index (BMI) 35.7 Intake and Output for Last 24 Hours 02/14/18 02/15/18 02/16/18 23:59 23:59 23:59 Intake Total 560 / 560 460 / 460 240 / 240 Output Total 550 / 550 Balance 10 / 10 460 / 460 240 / 240 Microbiology Past 72 Hours 02/11/18 18:20 Urine Culture - Final Urine, Clean Catch Gram negative jared Medical Necessity - Tobacco Use Smoking Status: Never smoker Tobacco Use: Non-smoker Assessment/Plan All Active Problems (Last Reviewed 12/30/17 @ 11:41 by Leeanna Calvo) Status post total knee replacement, right (Acute) The patient is a 82 year old CM with PMH HTN, HLD, CAD s/p CABG, S/P stents, morbid obesity, H/O Atrial flutter s/p ablation not on AC per Cardiology, BPH, had recent right total knee replacement on 02/06/[address] Schmidt now admitted to [facility] with debility s/p right TKR, for > 3 hrs therapy daily, with a goal of returning back home at or near his prior level of functional independence. Plan -PT for gait stability -OT for ADLs -Analgesics as needed -Bowel protocol -HTN- on Lopressor, goal BP < 130/80 mmHg -CAD s/p CABG and stents- stable, on ASA and Ranolazine -H/O atrial flutter- s/p ablation, management per Cardiology Dr. Bustillo/Dr. Brito, is not on AC per Cardiology, will defer further management to Cardiology as outpatient, stroke risk discussed with patient. -BPH-on Tamsulosin -Fall precautions -GI/DVT prophylaxis- SCDs, RENETTA etiennee knee high, Dr. Schmidt wants him to be on ASA 325 mg PO BID post surgery for 30 days and does not want to be on pharmacological DVT prophylaxis. Will follow surgery recommendations. DVT risks discussed with patient. -Follow up- Per Dr. Schmidt's office directions, the dressing has to be removed in 3 days on 02/13/18, hao to be removed on 02/17/18. Follow with Dr. Schmidt -Hospitalist consult and further medical management per hospitalist recommendations. 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
[2018-02-16] MEDS: Ranolazine 500 MG Tablet 1000 MG PO ×2 (11:27→20:56)
[2018-02-16 11:28] VITALS: BP 115/58; PULSE 86
[2018-02-16] MEDS: Aspirin 325 MG Tablet PO ×2 (11:28→17:31)
[2018-02-16] MEDS: Famotidine 20 MG Tablet 40 MG PO (11:28)
[2018-02-16] MEDS: Multivitamins,Therapeutic Tablet 1 TABLET PO (11:28)
[2018-02-16] MEDS: Metoprolol Tartrate 25 MG Tablet PO ×2 (11:28→20:56)
[2018-02-16 11:34] LABS: Erythrocyte Sedimentation Rate 25 mm/hr (0-20)
--- NOTE | 2018-02-16 13:23 | PCM.PN.HOSP ---
Patient Problems: Active and Suspected Problems (Last Reviewed 12/30/17 @ 11:41 by Leeanna Calvo) Status post total knee replacement, right (Acute) Subjective: Patient was seen and examined. Denies any new complains. Had swelling of right knee. 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 Denies fever or chills Vitals/I&O's: Vital Signs Temp Pulse Resp BP Pulse Ox 98.6 F 86 18 115/58 L 96 02/16/18 08:12 02/16/18 11:28 02/16/18 08:12 02/16/18 11:28 02/16/18 08:12 Oxygen Delivery Method Room Air Weight: 105.2 kg Body Mass Index (BMI) 35.7 Intake and Output for Last 24 Hours 02/14/18 02/15/18 02/16/18 23:59 23:59 23:59 Intake Total 560 / 560 460 / 460 240 / 240 Output Total 550 / 550 Balance 10 460 / 460 240 / 240 General: Alert, Oriented x3, Cooperative, No apparent distress HEENT: Atraumatic, PERRLA, EOMI, Normocephalic Oral: Moist Mucosa Neck: Supple Lungs: Clear to auscultation, Normal air movement Cardiovascular: Regular rate, Regular Rhythm, Normal S1, Normal S2, No murmurs Abdomen: Bowel Sounds Present, Soft, Non Tender, Non-Distended, No Hepato-splenomegaly Extremities: No edema Skin: No rashes, No breakdown Musculoskeletal: No Tenderness to Palpation of Joints or Extremities Lymphatic: No Cervical, Supraclavicular, or Inguinal Adenopathy Neurological: Cranial nerves II-XII grossly intact, Neuro grossly intact Psych/Mental Status: Normal Affect, Appropriate Microbiology Past 72 Hours 02/11/18 18:20 Urine, Clean Catch Urine Culture - Final Gram negative jared Laboratory Results 02/16/18 11:22: ESR 25 H Current Medications Acetaminophen (Tylenol) 650 mg PO Q8H PRN PRN PRN Reason: PAIN Last Admin: 02/16/18 03:25 Dose: 650 mg [facility]: 03/10/18 17:01 Last Admin: 02/16/18 11:28 Dose: 325 mg Bisacodyl (Dulcolax) 10 mg RECTAL .PRN X 1 PRN PRN Reason: Constipation Famotidine (Pepcid) 40 mg PO DAILY [facility] Last Admin: 02/16/18 11:28 Dose: 40 mg Lorazepam (Ativan) 0.5 mg PO QHS PRN PRN PRN Reason: SLEEP Last Admin: 02/15/18 23:04 Dose: 0.5 mg Magnesium Hydroxide (Milk Of Magnesia) 30 ml PO .PRN X 1 PRN PRN Reason: Constipation Last Admin: 02/12/18 05:59 Dose: 30 ml Metoprolol Tartrate (Lopressor (Beta Sariah)) 25 mg PO BID [facility] Last Admin: 02/16/18 11:28 Dose: 25 mg Multivitamins (Multivitamin) 1 tablet PO DAILY@0800 [facility] Last Admin: 02/16/18 11:28 Dose: 1 tablet Nitroglycerin (Nitrostat) 0.4 mg SUBLINGUAL Q5M PRN PRN Reason: Chest Pain Ondansetron HCl (Zofran Odt) 4 mg PO Q6H PRN PRN PRN Reason: NAUSEA Last Admin: 02/15/18 07:59 Dose: 4 mg Oxycodone HCl (Oxyir) 5 - 10 mg PO Q4H PRN PRN PRN Reason: PAIN Last Admin: 02/16/18 10:12 Dose: 10 mg Ranolazine (Ranexa) 1,000 mg PO BID [facility] Last Admin: 02/16/18 11:27 Dose: 1,000 mg Senna/Docusate Sodium (Senokot-S, Alisson-Colace) 2 tablet PO BID [facility] Last Admin: 02/16/18 11:30 Dose: Not Given Tamsulosin HCl (Flomax) 0.4 mg PO DAILY@1730 [facility] Last Admin: 02/15/18 18:55 Dose: 0.4 mg Medical Necessity - Tobacco Use Smoking Status: Never smoker Tobacco Use: Non-smoker Assessment/Plan All Active Problems (Last Reviewed 12/30/17 @ 11:41 by Leeanna Calvo) Status post total knee replacement, right (Acute) 82-year-old male with past medical history of hypertension, hyperlipidemia, CAD status post CABG and stents, morbid obesity, history of atrial fibrillation status post ablation, BPH, who is status post right total knee replacement done on 07/26/2017 admitted to inpatient rehab for therapy 1. Debility related to recent right knee replacement, physical therapy going well, continue per rehab team 2. Status post right total knee arthroplasty, will need to follow-up with orthopedics in the outpatient 3. Hypertension, controlled 4. Hyperlipidemia, not on statins 5. CAD status post CABG, stents, on aspirin but not on statin 6. DVT proph: per ortho. on ASA 325 BID Code Visit Inpatient E&M: 52076 Subs Hosp L2
--- NOTE | 2018-02-16 15:41 | NURSING ---
Paged Dr. Pack, Dr. Pack called, this RN reported SED rate of 25 and GSV is partially compressible with bright intraluminal echoes consistent with chronic clot. NNOs at this time.
[2018-02-16] MEDS: Tamsulosin HCl 0.4 MG Capsule PO (17:31)
[2018-02-16 19:46] VITALS: BP 121/75; PULSE 69; RESP 18; TEMP 36.8; O2SAT 95
[2018-02-16 20:56] VITALS: BP 121/75; PULSE 69
[2018-02-16] MEDS: Senna/Docusate Sodium 1 Tablet 2 TABLET PO (20:56)
--- NOTE | 2018-02-16 21:10 | NURSING ---
PT INSTRUCTED TO USE CALL LIGHT AND NOT TO STAND UP ON OWN.
[2018-02-16] MEDS: LORazepam 0.5 MG Tablet PO (22:29)
[2018-02-17] MEDS: Ondansetron ODT 4 MG Tablet PO (06:18)
[2018-02-17] MEDS: oxyCODONE 5 MG Tablet PO ×3 (06:35→20:23)
[2018-02-17 07:36] VITALS: BP 106/62; PULSE 71; RESP 12; TEMP 36.4; O2SAT 94
[2018-02-17] MEDS: Aspirin 325 MG Tablet PO ×2 (08:37→17:22)
[2018-02-17] MEDS: Famotidine 20 MG Tablet 40 MG PO (08:37)
[2018-02-17] MEDS: Multivitamins,Therapeutic Tablet 1 TABLET PO (08:37)
--- NOTE | 2018-02-17 09:00 | NURSING ---
removed 28 hao from R. knee, area clean dry, intact, no drainage, 12 steri strips applied, pt tolerated well.
--- NOTE | 2018-02-17 10:09 | PCM.PN.NEU ---
Patient Problems: Active and Suspected Problems (Last Reviewed 12/30/17 @ 11:41 by Leeanna Calvo) Status post total knee replacement, right (Acute) Subjective: The patient reports his right knee pain is improved today. No other complaints. Tolerating therapies. - Physical Exam General: Alert, Oriented x3, Cooperative, No apparent distress Extremities: - - Right knee shows 2 areas of increasing erythema both proximally and distally around the incision with warmth. No calf pain Vital Signs Temp Pulse Resp BP Pulse Ox 36.4 C L 71 12 106/62 94 02/17/18 07:36 02/17/18 07:36 02/17/18 07:36 02/17/18 07:36 02/17/18 07:36 Oxygen Delivery Method Room Air Weight: 105.2 kg Body Mass Index (BMI) 35.7 Intake and Output for Last 24 Hours 02/15/18 02/16/18 02/17/18 23:59 23:59 23:59 Intake Total 460 / 460 420 / 420 240 / 240 Balance 460 / 460 420 / 420 240 / 240 Laboratory Tests Past 24 Hrs 02/16/18 11:22 ESR 25 H Current Medications Generic Name Dose Route Start Last Admin Trade Name Freq PRN Reason Stop Dose Admin Acetaminophen 650 mg 02/10/18 13:09 02/16/18 20:55 Tylenol PO 650 mg Q8H PRN PRN Administration PAIN Aspirin 325 mg 02/10/18 17:00 02/17/18 08:37 Aspirin PO 03/10/18 17:01 325 mg BIDCM IRE[facility] Administration Bisacodyl 10 mg 02/10/18 13:19 Dulcolax RECTAL .PRN X 1 PRN Constipation Famotidine 40 mg 02/11/18 10:00 02/17/18 08:37 Pepcid PO 40 mg DAILY [facility] Administration Lorazepam 0.5 mg 02/15/18 19:25 02/16/18 22:29 Ativan PO 0.5 mg QHS PRN PRN Administration SLEEP Magnesium Hydroxide 30 ml 02/10/18 13:19 02/12/18 05:59 Milk Of Magnesia PO 30 ml .PRN X 1 PRN Administration Constipation Metoprolol Tartrate 25 mg 02/10/18 22:00 02/16/18 20:56 Lopressor (Beta Sariah) PO 25 mg BID [facility] Administration Multivitamins 1 tablet 02/11/18 08:00 02/17/18 08:37 Multivitamin PO 1 tablet DAILY@0800 [facility] Administration Nitroglycerin 0.4 mg 02/10/18 13:09 Nitrostat SUBLINGUAL Q5M PRN Chest Pain Ondansetron HCl 4 mg 02/11/18 09:13 02/17/18 06:18 Zofran Odt PO 4 mg Q6H PRN PRN Administration NAUSEA Oxycodone HCl 5 - 10 mg 02/10/18 13:09 02/17/18 06:35 Oxyir PO 10 mg Q4H PRN PRN Administration PAIN Ranolazine 1,000 mg 02/10/18 22:00 02/16/18 20:56 Ranexa PO 1,000 mg BID [facility] Administration Senna/Docusate Sodium 2 tablet 02/10/18 22:00 02/17/18 08:33 Senokot-S, Alisson-Colace PO Not Given BID [facility] Tamsulosin HCl 0.4 mg 02/10/18 17:30 02/16/18 17:31 Flomax PO 0.4 mg DAILY@1730 [facility] Administration Medical Necessity - Tobacco Use Smoking Status: Never smoker Tobacco Use: Non-smoker Assessment/Plan All Active Problems (Last Reviewed 12/30/17 @ 11:41 by Leeanna Calvo) Status post total knee replacement, right (Acute) The patient is a 82 year old CM with PMH HTN, HLD, CAD s/p CABG, S/P stents, morbid obesity, H/O Atrial flutter s/p ablation not on AC per Cardiology, BPH, had recent right total knee replacement on 02/06/[address] Schmidt now admitted to [facility] with debility s/p right TKR, for > 3 hrs therapy daily, with a goal of returning back home at or near his prior level of functional independence. Plan -PT for gait stability -OT for ADLs -Analgesics as needed -Bowel protocol -HTN- on Lopressor, goal BP < 130/80 mmHg -CAD s/p CABG and stents- stable, on ASA and Ranolazine -H/O atrial flutter- s/p ablation, management per Cardiology Dr. Bustillo/Dr. Brito, is not on AC per Cardiology, will defer further management to Cardiology as outpatient, stroke risk discussed with patient. -BPH-on Tamsulosin -Fall precautions -GI/DVT prophylaxis- SCDs, RENETTA enciso knee high, Dr. Schmidt wants him to be on ASA 325 mg PO BID post surgery for 30 days and does not want to be on pharmacological DVT prophylaxis. Will follow surgery recommendations. DVT risks discussed with patient. -Follow up- Per Dr. Schmidt's office directions, the dressing has to be removed in 3 days on 02/13/18, hao to be removed on 02/17/18. Follow with Dr. Schmidt -Hospitalist consult and further medical management per hospitalist recommendations. right knee incision erythema: check esr and duplex ble. 02/17: I spoke with Dr. Smith about this since the knee erythema is worth he suggests starting Augmentin and have him follow-up in the office next week. 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 02/17: Duplex is negative
--- NOTE | 2018-02-17 10:13 | PN.NEURO_ITS ---
Patient Problems: Active and Suspected Problems (Last Reviewed 12/30/17 @ 11:41 by Leeanna Calvo) Status post total knee replacement, right (Acute) Subjective: The patient reports his right knee pain is improved today. No other complaints. Tolerating therapies. - Physical Exam General: Alert, Oriented x3, Cooperative, No apparent distress Extremities: - - Right knee shows 2 areas of increasing erythema both proximally and distally around the incision with warmth. No calf pain Vital Signs Temp Pulse Resp BP Pulse Ox 36.4 C L 71 12 106/62 94 02/17/18 07:36 02/17/18 07:36 02/17/18 07:36 02/17/18 07:36 02/17/18 07:36 Oxygen Delivery Method Room Air Weight: 105.2 kg Body Mass Index (BMI) 35.7 Intake and Output for Last 24 Hours 02/15/18 02/16/18 02/17/18 23:59 23:59 23:59 Intake Total 460 / 460 420 / 420 240 / 240 Balance 460 / 460 420 / 420 240 / 240 Laboratory Tests Past 24 Hrs 02/16/18 11:22 ESR 25 H Current Medications Generic Name Dose Route Start Last Admin Trade Name Freq PRN Reason Stop Dose Admin Acetaminophen 650 mg 02/10/18 13:09 02/16/18 20:55 Tylenol PO 650 mg Q8H PRN PRN Administration PAIN Aspirin 325 mg 02/10/18 17:00 02/17/18 08:37 Aspirin PO 03/10/18 17:01 325 mg BIDCM IRENA Administration Bisacodyl 10 mg 02/10/18 13:19 Dulcolax RECTAL .PRN X 1 PRN Constipation Famotidine 40 mg 02/11/18 10:00 02/17/18 08:37 Pepcid PO 40 mg DAILY IRENA Administration Lorazepam 0.5 mg 02/15/18 19:25 02/16/18 22:29 Ativan PO 0.5 mg QHS PRN PRN Administration SLEEP Magnesium Hydroxide 30 ml 02/10/18 13:19 02/12/18 05:59 Milk Of Magnesia PO 30 ml .PRN X 1 PRN Administration Constipation Metoprolol Tartrate 25 mg 02/10/18 22:00 02/16/18 20:56 Lopressor (Beta Sariah) PO 25 mg BID IRENA Administration Multivitamins 1 tablet 02/11/18 08:00 02/17/18 08:37 Multivitamin PO 1 tablet DAILY@0800 IRENA Administration Nitroglycerin 0.4 mg 02/10/18 13:09 Nitrostat SUBLINGUAL Q5M PRN Chest Pain Ondansetron HCl 4 mg 02/11/18 09:13 02/17/18 06:18 Zofran Odt PO 4 mg Q6H PRN PRN Administration NAUSEA Oxycodone HCl 5 - 10 mg 02/10/18 13:09 02/17/18 06:35 Oxyir PO 10 mg Q4H PRN PRN Administration PAIN Ranolazine 1,000 mg 02/10/18 22:00 02/16/18 20:56 Ranexa PO 1,000 mg BID IRENA Administration Senna/Docusate Sodium 2 tablet 02/10/18 22:00 02/17/18 08:33 Senokot-S, Alisson-Colace PO Not Given BID [facility] Tamsulosin HCl 0.4 mg 02/10/18 17:30 02/16/18 17:31 Flomax PO 0.4 mg DAILY@1730 [facility] Administration Medical Necessity - Tobacco Use Smoking Status: Never smoker Tobacco Use: Non-smoker Assessment/Plan All Active Problems (Last Reviewed 12/30/17 @ 11:41 by Leeanna Calvo) Status post total knee replacement, right (Acute) The patient is a 82 year old CM with PMH HTN, HLD, CAD s/p CABG, S/P stents, morbid obesity, H/O Atrial flutter s/p ablation not on AC per Cardiology, BPH, had recent right total knee replacement on 02/06/[address] Schmidt now admitted to [facility] with debility s/p right TKR, for > 3 hrs therapy daily, with a goal of returning back home at or near his prior level of functional independence. Plan -PT for gait stability -OT for ADLs -Analgesics as needed -Bowel protocol -HTN- on Lopressor, goal BP < 130/80 mmHg -CAD s/p CABG and stents- stable, on ASA and Ranolazine -H/O atrial flutter- s/p ablation, management per Cardiology Dr. Bustillo/Dr. Brito, is not on AC per Cardiology, will defer further management to Cardiology as outpatient, stroke risk discussed with patient. -BPH-on Tamsulosin -Fall precautions -GI/DVT prophylaxis- SCDs, RENETTA enciso knee high, Dr. Schmidt wants him to be on ASA 325 mg PO BID post surgery for 30 days and does not want to be on pharmacological DVT prophylaxis. Will follow surgery recommendations. DVT risks discussed with patient. -Follow up- Per Dr. Schmidt's office directions, the dressing has to be removed in 3 days on 02/13/18, hao to be removed on 02/17/18. Follow with Dr. Schmidt -Hospitalist consult and further medical management per hospitalist recommendations. right knee incision erythema: check esr and duplex ble. 02/17: I spoke with Dr. Smith about this since the knee erythema is worth he suggests starting Augmentin and have him follow-up in the office next week. 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 02/17: Duplex is negative
[2018-02-17 11:34] VITALS: BP 122/74; PULSE 88
[2018-02-17] MEDS: Metoprolol Tartrate 25 MG Tablet PO ×2 (11:34→20:22)
[2018-02-17] MEDS: Ranolazine 500 MG Tablet 1000 MG PO ×2 (11:34→20:20)
[2018-02-17] MEDS: Amox/Clavulanate 875 MG Tablet PO ×2 (11:34→17:22)
[2018-02-17] MEDS: Tamsulosin HCl 0.4 MG Capsule PO (17:22)
[2018-02-17] MEDS: Senna/Docusate Sodium 1 Tablet 2 TABLET PO (20:20)
[2018-02-17 20:22] VITALS: BP 100/56; PULSE 69
[2018-02-17 20:32] VITALS: BP 100/56; PULSE 69; RESP 18; TEMP 36.8; O2SAT 95
[2018-02-17 20:36] VITALS: PULSE 69; RESP 18; O2SAT 95
[2018-02-17] MEDS: LORazepam 0.5 MG Tablet PO (23:09)
--- NOTE | 2018-02-18 01:06 | NURSING ---
Reviewed and agree with LPNs fims and handoff
[2018-02-18] MEDS: oxyCODONE 5 MG Tablet PO ×3 (05:17→20:39)
[2018-02-18 07:44] VITALS: BP 123/80; PULSE 80; RESP 18; TEMP 36.7; O2SAT 94
[2018-02-18] MEDS: Ranolazine 500 MG Tablet 1000 MG PO ×2 (07:48→20:40)
[2018-02-18] MEDS: Famotidine 20 MG Tablet 40 MG PO (07:48)
[2018-02-18 07:49] VITALS: BP 123/80; PULSE 80
[2018-02-18] MEDS: Multivitamins,Therapeutic Tablet 1 TABLET PO (07:49)
[2018-02-18] MEDS: Metoprolol Tartrate 25 MG Tablet PO ×2 (07:49→20:40)
[2018-02-18] MEDS: Aspirin 325 MG Tablet PO ×2 (07:49→17:37)
[2018-02-18] MEDS: Amox/Clavulanate 875 MG Tablet PO ×2 (07:49→17:37)
[2018-02-18] MEDS: Senna/Docusate Sodium 1 Tablet 2 TABLET PO ×2 (07:50→20:40)
--- NOTE | 2018-02-18 11:00 | PCM.PN.HOSP ---
Patient Problems: Active and Suspected Problems (Last Reviewed 12/30/17 @ 11:41 by Leeanna Calvo) Status post total knee replacement, right (Acute) Subjective: Patient was seen and examined. Denies any complains. Right knee pain is improved. Denies fever or chills Objective: Physical exam: General: Alert, Oriented x3, Cooperative, No apparent distress HEENT: Atraumatic, PERRLA, EOMI, Normocephalic Oral: Moist Mucosa Neck: Supple Lungs: Clear to auscultation, Normal air movement Cardiovascular: Regular rate, Regular Rhythm, Normal S1, Normal S2, No murmurs Abdomen: Bowel Sounds Present, Soft, Non Tender, Non-Distended, No Hepato-splenomegaly Extremities: No edema Skin: No rashes, No breakdown Musculoskeletal: No Tenderness to Palpation of Joints or Extremities Lymphatic: No Cervical, Supraclavicular, or Inguinal Adenopathy Neurological: Cranial nerves II-XII grossly intact, Neuro grossly intact Psych/Mental Status: Normal Affect, Appropriate Vitals/I&O's: Vital Signs Temp Pulse Resp BP Pulse Ox 98.0 F 80 18 123/80 H 94 02/18/18 07:44 02/18/18 07:49 02/18/18 07:44 02/18/18 07:49 02/18/18 07:44 Oxygen Delivery Method Room Air Weight: 105.2 kg Body Mass Index (BMI) 35.7 Intake and Output for Last 24 Hours 02/16/18 02/17/18 02/18/18 23:59 23:59 23:59 Intake Total 420 / 420 720 / 720 240 / 240 Balance 420 / 420 720 / 720 240 / 240 Current Medications Acetaminophen (Tylenol) 650 mg PO Q8H PRN PRN PRN Reason: PAIN Last Admin: 02/16/18 20:55 Dose: 650 mg Amoxicillin/Clavulanate Potassium ([facility]) [facility] Last Admin: 02/18/18 07:49 Dose: 875 mg [facility]irin ([facility]in) [facility] Stop: 03/10/18 17:01 Last Admin: 02/18/18 07:49 Dose: 325 mg Bisacodyl (Dulcolax) 10 mg RECTAL .PRN X 1 PRN PRN Reason: Constipation Famotidine (Pepcid) 40 mg PO DAILY [facility] Last Admin: 02/18/18 07:48 Dose: 40 mg Lorazepam (Ativan) 0.5 mg PO QHS PRN PRN PRN Reason: SLEEP Last Admin: 02/17/18 23:09 Dose: 0.5 mg Magnesium Hydroxide (Milk Of Magnesia) 30 ml PO .PRN X 1 PRN PRN Reason: Constipation Last Admin: 02/12/18 05:59 Dose: 30 ml Metoprolol Tartrate (Lopressor (Beta Sariah)) 25 mg PO BID [facility] Last Admin: 02/18/18 07:49 Dose: 25 mg Multivitamins (Multivitamin) 1 tablet PO DAILY@0800 [facility] Last Admin: 02/18/18 07:49 Dose: 1 tablet Nitroglycerin (Nitrostat) 0.4 mg SUBLINGUAL Q5M PRN PRN Reason: Chest Pain Ondansetron HCl (Zofran Odt) 4 mg PO Q6H PRN PRN PRN Reason: NAUSEA Last Admin: 02/17/18 06:18 Dose: 4 mg Oxycodone HCl (Oxyir) 5 - 10 mg PO Q4H PRN PRN PRN Reason: PAIN Last Admin: 02/18/18 05:17 Dose: 5 mg Ranolazine (Ranexa) 1,000 mg PO BID [facility] Last Admin: 02/18/18 07:48 Dose: 1,000 mg Senna/Docusate Sodium (Senokot-S, Alisson-Colace) 2 tablet PO BID [facility] Last Admin: 02/18/18 07:50 Dose: 2 tablet Tamsulosin HCl (Flomax) 0.4 mg PO DAILY@1730 [facility] Last Admin: 02/17/18 17:22 Dose: 0.4 mg Medical Necessity - Tobacco Use Smoking Status: Never smoker Tobacco Use: Non-smoker Assessment/Plan All Active Problems (Last Reviewed 12/30/17 @ 11:41 by Leeanna Calvo) Status post total knee replacement, right (Acute) 82-year-old male with past medical history of hypertension, hyperlipidemia, CAD status post CABG and stents, morbid obesity, history of atrial fibrillation status post ablation, BPH, who is status post right total knee replacement done on admitted to inpatient rehab for therapy 1. Debility related to recent right knee replacement, physical therapy going well, continue per rehab team 2. Status post right total knee arthroplasty, will need to follow-up with orthopedics in the outpatient 3. Hypertension, controlled 4. Hyperlipidemia, not on statins 5. CAD status post CABG, stents, on aspirin but not on statin 6. DVT proph: per ortho. on ASA 325 BID Code Visit Inpatient E&M: 84114 Subs Hosp L2
[2018-02-18] MEDS: Magnesium Hydroxide 30 ML UDC PO (17:37)
--- NOTE | 2018-02-18 19:26 | MDS.RN ---
noncompliant with getting up, getting up without staff in room to use urinal, reinstructed to wait for staff.
[2018-02-18 20:30] VITALS: BP 106/61; PULSE 66; RESP 18; TEMP 36.6; O2SAT 95
[2018-02-18 20:40] VITALS: BP 106/61; PULSE 66
--- NOTE | 2018-02-19 02:30 | NURSING ---
PT UP TO BATHROOM TO ATTEMPT TO HAVE BM WITHOUT RESULTS. PT PROVIDED WITH PAIN MED FOR KNEE AND RECTAL SUPP. FOR CONSTIPATION. POLAR CARE REAPPLIED TO R KNEE. CALL LIGHT WITHIN REACH.
[2018-02-19] MEDS: oxyCODONE 5 MG Tablet PO ×3 (02:52→13:44)
[2018-02-19] MEDS: Bisacodyl 10 MG Suppository RECTAL (02:53)
[2018-02-19 08:28] VITALS: BP 108/57; PULSE 62; RESP 18; TEMP 36.9; O2SAT 93
[2018-02-19] MEDS: Ranolazine 500 MG Tablet 1000 MG PO ×2 (08:33→21:42)
[2018-02-19 08:34] VITALS: BP 108/57; PULSE 62
[2018-02-19] MEDS: Aspirin 325 MG Tablet PO ×2 (08:34→17:32)
[2018-02-19] MEDS: Multivitamins,Therapeutic Tablet 1 TABLET PO (08:34)
[2018-02-19] MEDS: Amox/Clavulanate 875 MG Tablet PO ×2 (08:34→17:32)
[2018-02-19] MEDS: Famotidine 20 MG Tablet 40 MG PO (08:34)
[2018-02-19] MEDS: Metoprolol Tartrate 25 MG Tablet PO ×2 (08:34→21:42)
[2018-02-19] MEDS: Ondansetron ODT 4 MG Tablet PO (13:45)
--- NOTE | 2018-02-19 16:37 | NURSING ---
ambulated around halls with walker, and used nu step x11 minutes. tolerated well.
[2018-02-19 19:39] VITALS: BP 107/67; PULSE 67; RESP 16; TEMP 36.6; O2SAT 95
[2018-02-19] MEDS: Acetaminophen 325 MG Tablet 650 MG PO (19:52)
[2018-02-19 21:42] VITALS: BP 107/67; PULSE 67
[2018-02-19] MEDS: Senna/Docusate Sodium 1 Tablet 2 TABLET PO (21:42)
[2018-02-19] MEDS: LORazepam 0.5 MG Tablet PO (21:45)
[2018-02-20] MEDS: oxyCODONE 5 MG Tablet PO ×3 (05:59→20:29)
[2018-02-20] MEDS: Aspirin 325 MG Tablet PO ×2 (08:05→17:47)
[2018-02-20] MEDS: Multivitamins,Therapeutic Tablet 1 TABLET PO (08:05)
[2018-02-20] MEDS: Amox/Clavulanate 875 MG Tablet PO ×2 (08:05→17:47)
[2018-02-20 08:06] VITALS: BP 116/68; PULSE 75
[2018-02-20] MEDS: Metoprolol Tartrate 25 MG Tablet PO ×2 (08:06→20:29)
[2018-02-20] MEDS: Ranolazine 500 MG Tablet 1000 MG PO ×2 (08:06→20:29)
[2018-02-20] MEDS: Famotidine 20 MG Tablet 40 MG PO (08:06)
[2018-02-20 08:19] VITALS: BP 116/68; PULSE 65; RESP 18; TEMP 36.6; O2SAT 94
[2018-02-20] MEDS: Ondansetron ODT 4 MG Tablet PO (09:43)
--- NOTE | 2018-02-20 10:09 | PCM.PN.NEU ---
Patient Problems: Active and Suspected Problems (Last Reviewed 12/30/17 @ 11:41 by Leeanna Calvo) Status post total knee replacement, right (Acute) Subjective: Staffed in team meeting. Family was not at bedside, questions answered. With Physical therapy, he is able to get in and out of bed, go from a sitting to a standing position at stand by assist. He is able to go up and down 10 steps using two hand rail at contact guard. He has walked about 105 feet using a walker. With Occupational therapy, he is set up for his personal grooming, he is able to do his upper body and toileting at supervision to standby assist. With his lower body he requires assistance at standby with bathing. With nursing, his incision on his right knee looks good no swelling is noted, the redness has improved since starting on Augmentin, will follow up with his Orthopedic surgeon next week. Will discharge on 02/24 home with outpatient Physical therapy and Occupational therapy. - Physical Exam General: Alert, Oriented x3, Cooperative HEENT: Atraumatic, PERRLA, EOMI, Normocephalic Neck: Supple, No JVD, Negative Carotid Bruits Lungs: Clear to auscultation, Normal air movement Cardiovascular: Regular rate, No murmurs Abdomen: Bowel Sounds Present, Soft, Non Tender Extremities: No edema, Capillary Refill Less than 3 Seconds Skin: No rashes, No breakdown Musculoskeletal: No Tenderness to Palpation of Joints or Extremities Neurological: Cranial nerves II-XII grossly intact Psych/Mental Status: Normal Affect, Appropriate, Alert and oriented to time, place, person, mood and affect Vital Signs Temp Pulse Resp BP Pulse Ox 97.8 F 65 18 116/68 94 02/20/18 08:19 02/20/18 08:19 02/20/18 08:19 02/20/18 08:19 02/20/18 08:19 Oxygen Delivery Method Room Air Weight: 105.2 kg Body Mass Index (BMI) 35.7 Intake and Output for Last 24 Hours 02/18/18 02/19/18 02/20/18 23:59 23:59 23:59 Intake Total 720 / 720 240 / 240 Balance 720 / 720 240 / 240 Active Medications Acetaminophen (Tylenol) 650 mg PO Q8H PRN PRN PRN Reason: PAIN Last Admin: 02/19/18 19:52 Dose: 650 mg Amoxicillin/Clavulanate Potassium (Augmentin Tablet) [facility] Last Admin: 02/20/18 08:05 Dose: 875 mg Aspirin (Aspirin) 325 mg [facility] Stop: 03/10/18 17:01 Last Admin: 02/20/18 08:05 Dose: 325 mg Bisacodyl (Dulcolax) 10 mg RECTAL .PRN X 1 PRN PRN Reason: Constipation Last Admin: 02/19/18 02:53 Dose: 10 mg Famotidine (Pepcid) 40 mg PO DAILY [facility] Last Admin: 02/20/18 08:06 Dose: 40 mg Lorazepam (Ativan) 0.5 mg PO QHS PRN PRN PRN Reason: SLEEP Last Admin: 02/19/18 21:45 Dose: 0.5 mg Magnesium Hydroxide (Milk Of Magnesia) 30 ml PO .PRN X 1 PRN PRN Reason: Constipation Last Admin: 02/18/18 17:37 Dose: 30 ml Metoprolol Tartrate (Lopressor (Beta Sariah)) 25 mg PO BID [facility] Last Admin: 02/20/18 08:06 Dose: 25 mg Multivitamins (Multivitamin) 1 tablet PO DAILY@0800 [facility] Last Admin: 02/20/18 08:05 Dose: 1 tablet Nitroglycerin (Nitrostat) 0.4 mg SUBLINGUAL Q5M PRN PRN Reason: Chest Pain Ondansetron HCl (Zofran Odt) 4 mg PO Q6H PRN PRN PRN Reason: NAUSEA Last Admin: 02/20/18 09:43 Dose: 4 mg Oxycodone HCl (Oxyir) 5 - 10 mg PO Q4H PRN PRN PRN Reason: PAIN Last Admin: 02/20/18 05:59 Dose: 10 mg Ranolazine (Ranexa) 1,000 mg PO BID [facility] Last Admin: 02/20/18 08:06 Dose: 1,000 mg Senna/Docusate Sodium (Senokot-S, Alisson-Colace) 2 tablet PO BID [facility] Last Admin: 02/20/18 08:07 Dose: Not Given Tamsulosin HCl (Flomax) 0.4 mg PO DAILY@1730 [facility] Last Admin: 02/19/18 17:30 Dose: Not Given Medical Necessity - Tobacco Use Smoking Status: Never smoker Tobacco Use: Non-smoker Assessment/Plan All Active Problems (Last Reviewed 12/30/17 @ 11:41 by Leeanna Calvo) Status post total knee replacement, right (Acute) The patient is a 82 year old CM with PMH HTN, HLD, CAD s/p CABG, S/P stents, morbid obesity, H/O Atrial flutter s/p ablation not on AC per Cardiology, BPH, had recent right total knee replacement on 02/06/[address] Schmidt now admitted to [facility] with debility s/p right TKR, for > 3 hrs therapy daily, with a goal of returning back home at or near his prior level of functional independence. Plan -PT for gait stability -OT for ADLs -Analgesics as needed -Bowel protocol -HTN- on Lopressor, goal BP < 130/80 mmHg -CAD s/p CABG and stents- stable, on ASA and Ranolazine -H/O atrial flutter- s/p ablation, management per Cardiology Dr. Bustillo/Dr. Brito, is not on AC per Cardiology, will defer further management to Cardiology as outpatient, stroke risk discussed with patient. -BPH-on Tamsulosin -Fall precautions -GI/DVT prophylaxis- SCDs, RENETTA lowelle knee high, Dr. Schmidt wants him to be on ASA 325 mg PO BID post surgery for 30 days and does not want to be on pharmacological DVT prophylaxis. Will follow surgery recommendations. DVT risks discussed with patient. -Follow up- Per Dr. Schmidt's office directions, the dressing has to be removed in 3 days on 02/13/18, hao to be removed on 02/17/18. Follow with Dr. Schmidt -Hospitalist consult and further medical management per hospitalist recommendations.
--- NOTE | 2018-02-20 10:27 | PN.NEURO_ITS ---
Patient Problems: Active and Suspected Problems (Last Reviewed 12/30/17 @ 11:41 by Leeanna Calvo) Status post total knee replacement, right (Acute) Subjective: Staffed in team meeting. Family was not at bedside, questions answered. With Physical therapy, he is able to get in and out of bed, go from a sitting to a standing position at stand by assist. He is able to go up and down 10 steps using two hand rail at contact guard. He has walked about 105 feet using a walker. With Occupational therapy, he is set up for his personal grooming, he is able to do his upper body and toileting at supervision to standby assist. With his lower body he requires assistance at standby with bathing. With nursing , his incision on his right knee looks good no swelling is noted, the redness has improved since starting on Augmentin, will follow up with his Orthopedic surgeon next week. Will discharge on 02/24 home with outpatient Physical therapy and Occupational therapy. - Physical Exam General: Alert, Oriented x3, Cooperative HEENT: Atraumatic, PERRLA, EOMI, Normocephalic Neck: Supple, No JVD, Negative Carotid Bruits Lungs: Clear to auscultation, Normal air movement Cardiovascular: Regular rate, No murmurs Abdomen: Bowel Sounds Present, Soft, Non Tender Extremities: No edema, Capillary Refill Less than 3 Seconds Skin: No rashes, No breakdown Musculoskeletal: No Tenderness to Palpation of Joints or Extremities Neurological: Cranial nerves II-XII grossly intact Psych/Mental Status: Normal Affect, Appropriate, Alert and oriented to time, place, person, mood and affect Vital Signs Temp Pulse Resp BP Pulse Ox 97.8 F 65 18 116/68 94 02/20/18 08:19 02/20/18 08:19 02/20/18 08:19 02/20/18 08:19 02/20/18 08:19 Oxygen Delivery Method Room Air Weight: 105.2 kg Body Mass Index (BMI) 35.7 Intake and Output for Last 24 Hours 02/18/18 02/19/18 02/20/18 23:59 23:59 23:59 Intake Total 720 / 720 240 / 240 Balance 720 / 720 240 / 240 Active Medications Acetaminophen (Tylenol) 650 mg PO Q8H PRN PRN PRN Reason: PAIN Last Admin: 02/19/18 19:52 Dose: 650 mg Amoxicillin/Clavulanate Potassium ([facility]in [facility]) [facility] Last Admin: 02/20/18 08:05 Dose: 875 mg Aspirin (Aspirin) [facility] Stop: 03/10/18 17:01 Last Admin: 02/20/18 08:05 Dose: 325 mg Bisacodyl (Dulcolax) 10 mg RECTAL .PRN X 1 PRN PRN Reason: Constipation Last Admin: 02/19/18 02:53 Dose: 10 mg Famotidine (Pepcid) 40 mg PO DAILY [facility] Last Admin: 02/20/18 08:06 Dose: 40 mg Lorazepam (Ativan) 0.5 mg PO QHS PRN PRN PRN Reason: SLEEP Last Admin: 02/19/18 21:45 Dose: 0.5 mg Magnesium Hydroxide (Milk Of Magnesia) 30 ml PO .PRN X 1 PRN PRN Reason: Constipation Last Admin: 02/18/18 17:37 Dose: 30 ml Metoprolol Tartrate (Lopressor (Beta Sariah)) 25 mg PO BID [facility] Last Admin: 02/20/18 08:06 Dose: 25 mg Multivitamins (Multivitamin) 1 tablet PO DAILY@0800 [facility] Last Admin: 02/20/18 08:05 Dose: 1 tablet Nitroglycerin (Nitrostat) 0.4 mg SUBLINGUAL Q5M PRN PRN Reason: Chest Pain Ondansetron HCl (Zofran Odt) 4 mg PO Q6H PRN PRN PRN Reason: NAUSEA Last Admin: 02/20/18 09:43 Dose: 4 mg Oxycodone HCl (Oxyir) 5 - 10 mg PO Q4H PRN PRN PRN Reason: PAIN Last Admin: 02/20/18 05:59 Dose: 10 mg Ranolazine (Ranexa) 1,000 mg PO BID [facility] Last Admin: 02/20/18 08:06 Dose: 1,000 mg Senna/Docusate Sodium (Senokot-S, Alisson-Colace) 2 tablet PO BID [facility] Last Admin: 02/20/18 08:07 Dose: Not Given Tamsulosin HCl (Flomax) 0.4 mg PO DAILY@1730 [facility] Last Admin: 02/19/18 17:30 Dose: Not Given Medical Necessity - Tobacco Use Smoking Status: Never smoker Tobacco Use: Non-smoker Assessment/Plan All Active Problems (Last Reviewed 12/30/17 @ 11:41 by Leaenna Calvo) Status post total knee replacement, right (Acute) The patient is a 82 year old CM with PMH HTN, HLD, CAD s/p CABG, S/P stents, morbid obesity, H/O Atrial flutter s/p ablation not on AC per Cardiology, BPH, had recent right total knee replacement on 02/06/[address] Schmidt now admitted to [facility] with debility s/p right TKR, for > 3 hrs therapy daily, with a goal of returning back home at or near his prior level of functional independence. Plan -PT for gait stability -OT for ADLs -Analgesics as needed -Bowel protocol -HTN- on Lopressor, goal BP < 130/80 mmHg -CAD s/p CABG and stents- stable, on ASA and Ranolazine -H/O atrial flutter- s/p ablation, management per Cardiology Dr. Bustillo/Dr. Brito, is not on AC per Cardiology, will defer further management to Cardiology as outpatient, stroke risk discussed with patient. -BPH-on Tamsulosin -Fall precautions -GI/DVT prophylaxis- SCDs, RENETTA lowelle knee high, Dr. Schmidt wants him to be on ASA 325 mg PO BID post surgery for 30 days and does not want to be on pharmacological DVT prophylaxis. Will follow surgery recommendations. DVT risks discussed with patient. -Follow up- Per Dr. Schmidt's office directions, the dressing has to be removed in 3 days on 02/13/18, hao to be removed on 02/17/18. Follow with Dr. Schmidt -Hospitalist consult and further medical management per hospitalist recommendations.
--- NOTE | 2018-02-20 10:47 | CASEMGMT ---
Team meeting held. Patient present, no family member present at this time. Discharge date set for 02/24/18. Patient plans to discharge to home alone with outpatient physical therapy. Patient requesting for outpatient physical therapy to be set up through [employer]. Patient reporting to have needed durable medical equipment already set up within the home. Support given. Will continue to follow to set up outpatient physical therapy and any other needed discharge information. Proposed discharge date: 02/24/18 PLAN: Discharge to home alone with outpatient physical therapy. Petrona EDUARDO, IT SALES REPRESENTATIVE
--- NOTE | 2018-02-20 11:13 | PCM.PN.HOSP ---
Patient Problems: Active and Suspected Problems (Last Reviewed 12/30/17 @ 11:41 by Leeanna Calvo) Status post total knee replacement, right (Acute) Subjective: Patient is an 82-year-old gentleman who underwent right total knee replacement on 02/11/2018 admitted to the inpatient rehab unit subsequently for rehab Objective: GENERAL: cooperative HEENT: Clear conjunctiva, NECK; supple, normal thyroid, CHEST: Clear to auscultation bilaterally, HEART: Regular S1 S2, no audible murmurs ABDOMEN: soft, non-tender, normoactive bowel sounds, RECTAL: deferred EXTREMITIES: Erythema around the incision ;right knee EMERGENCY RESPONSE OFFICER: Awake; no lateralizing signs. SKIN: Described above Vitals/I&O's: Vital Signs Temp Pulse Resp BP Pulse Ox 97.8 F 65 18 116/68 94 02/20/18 08:19 02/20/18 08:19 02/20/18 08:19 02/20/18 08:19 02/20/18 08:19 Oxygen Delivery Method Room Air Weight: 105.2 kg Body Mass Index (BMI) 35.7 Intake and Output for Last 24 Hours 02/18/18 02/19/18 02/20/18 23:59 23:59 23:59 Intake Total 720 / 720 240 / 240 Balance 720 / 720 240 / 240 Current Medications Acetaminophen (Tylenol) 650 mg PO Q8H PRN PRN PRN Reason: PAIN Last Admin: 02/19/18 19:52 Dose: 650 mg Amoxicillin/Clavulanate Potassium (Augmentin Tablet) 875 mg PO BIDCM [facility] Last Admin: 02/20/18 08:05 Dose: 875 mg Aspirin (Aspirin) 325 mg PO BIDCM [facility] Stop: 03/10/18 17:01 Last Admin: 02/20/18 08:05 Dose: 325 mg Bisacodyl (Dulcolax) 10 mg RECTAL .PRN X 1 PRN PRN Reason: Constipation Last Admin: 02/19/18 02:53 Dose: 10 mg Famotidine (Pepcid) 40 mg PO DAILY [facility] Last Admin: 02/20/18 08:06 Dose: 40 mg Lorazepam (Ativan) 0.5 mg PO QHS PRN PRN PRN Reason: SLEEP Last Admin: 02/19/18 21:45 Dose: 0.5 mg Magnesium Hydroxide (Milk Of Magnesia) 30 ml PO .PRN X 1 PRN PRN Reason: Constipation Last Admin: 02/18/18 17:37 Dose: 30 ml Metoprolol Tartrate (Lopressor (Beta Sariah)) 25 mg PO BID [facility] Last Admin: 02/20/18 08:06 Dose: 25 mg Multivitamins (Multivitamin) 1 tablet PO DAILY@0800 [facility] Last Admin: 02/20/18 08:05 Dose: 1 tablet Nitroglycerin (Nitrostat) 0.4 mg SUBLINGUAL Q5M PRN PRN Reason: Chest Pain Ondansetron HCl (Zofran Odt) 4 mg PO Q6H PRN PRN PRN Reason: NAUSEA Last Admin: 02/20/18 09:43 Dose: 4 mg Oxycodone HCl (Oxyir) 5 - 10 mg PO Q4H PRN PRN PRN Reason: PAIN Last Admin: 02/20/18 05:59 Dose: 10 mg Ranolazine (Ranexa) 1,000 mg PO BID [facility] Last Admin: 02/20/18 08:06 Dose: 1,000 mg Senna/Docusate Sodium (Senokot-S, Alisson-Colace) 2 tablet PO BID [facility] Last Admin: 02/20/18 08:07 Dose: Not Given Tamsulosin HCl (Flomax) 0.4 mg PO DAILY@1730 [facility] Last Admin: 02/19/18 17:30 Dose: Not Given Medical Necessity - Tobacco Use Smoking Status: Never smoker Tobacco Use: Non-smoker Assessment/Plan All Active Problems (Last Reviewed 12/30/17 @ 11:41 by Leeanna Calvo) Status post total knee replacement, right (Acute) Patient is an 82-year-old gentleman who underwent right total knee replacement on 02/11/2018 admitted to the inpatient rehab unit subsequently for rehab 1. Status post right knee replacement by Dr. Smith on 02/11/2018. Admitted to the inpatient rehab where patient has since undergone treatment including PT and OT 2. CAD status post CABG with subsequent stent 3. Hypertension-blood pressure controlled, home medications continued with dose adjustment as needed 4. Dyslipidemia managed with diet 5. History of paroxysmal A. fib 6. DVT prophylaxis as recommended by the Ortho service patient is currently on aspirin 325 mg p.o. twice daily Code Visit Inpatient E&M: 50990 Subs Hosp L2
[2018-02-20 18:59] VITALS: BP 122/69; PULSE 62; RESP 16; TEMP 36.8; O2SAT 96
[2018-02-20 20:29] VITALS: BP 122/69; PULSE 62
[2018-02-20] MEDS: Senna/Docusate Sodium 1 Tablet 2 TABLET PO (20:29)
[2018-02-20] MEDS: LORazepam 0.5 MG Tablet PO (22:56)
--- NOTE | 2018-02-21 03:02 | NURSING ---
Pt used call light but set off bed alarm when pt tried to get up unassisted d/t urgency. Staff tried to answer call light but heard bed alarm and took off running to ensure pt safety. Pt reminded to use call light and that staff answer the call lights as fast as possible.
[2018-02-21] MEDS: Multivitamins,Therapeutic Tablet 1 TABLET PO (07:56)
[2018-02-21] MEDS: Aspirin 325 MG Tablet PO ×2 (07:56→16:41)
[2018-02-21] MEDS: Famotidine 20 MG Tablet 40 MG PO (07:56)
[2018-02-21] MEDS: Amox/Clavulanate 875 MG Tablet PO ×2 (07:56→16:41)
[2018-02-21] MEDS: Ranolazine 500 MG Tablet 1000 MG PO ×2 (07:57→21:44)
[2018-02-21] MEDS: Senna/Docusate Sodium 1 Tablet 2 TABLET PO ×2 (07:59→21:44)
[2018-02-21] MEDS: oxyCODONE 5 MG Tablet PO (08:06)
[2018-02-21 08:40] VITALS: BP 150/74; PULSE 78; RESP 16; TEMP 36.3; O2SAT 93
[2018-02-21 10:05] VITALS: PULSE 67
[2018-02-21] MEDS: Metoprolol Tartrate 25 MG Tablet PO ×2 (10:05→21:44)
--- NOTE | 2018-02-21 13:06 | PCM.PN.NEU ---
Patient Problems: Active and Suspected Problems (Last Reviewed 12/30/17 @ 11:41 by Leeanna Calvo) Status post total knee replacement, right (Acute) Subjective: Patient seen and examined. No new complaints, tolerating therapy. knee incision is C/D/I and well approximated. Swelling is better redness has improved since starting Augmentin, scheduled to see Orthopedic surgeon next week. - Physical Exam General: Alert, Oriented x3, Cooperative HEENT: Atraumatic, PERRLA, EOMI, Normocephalic Neck: Supple, No JVD, Negative Carotid Bruits Lungs: Clear to auscultation, Normal air movement Cardiovascular: Regular rate, No murmurs Abdomen: Bowel Sounds Present, Soft, Non Tender Extremities: No edema, Capillary Refill Less than 3 Seconds Skin: No rashes, No breakdown Musculoskeletal: No Tenderness to Palpation of Joints or Extremities Neurological: Cranial nerves II-XII grossly intact Psych/Mental Status: Normal Affect, Appropriate, Alert and oriented to time, place, person, mood and affect Vital Signs Temp Pulse Resp BP Pulse Ox 97.3 F L 67 16 150/74 H 93 02/21/18 08:40 02/21/18 10:05 02/21/18 08:40 02/21/18 08:40 02/21/18 08:40 Oxygen Delivery Method Room Air Weight: 105.2 kg Body Mass Index (BMI) 35.7 Intake and Output for Last 24 Hours 02/19/18 02/20/18 02/21/18 23:59 23:59 23:59 Intake Total 480 / 480 480 / 480 Balance 480 / 480 480 / 480 Active Medications Acetaminophen (Tylenol) 650 mg PO Q8H PRN PRN PRN Reason: PAIN Last Admin: 02/19/18 19:52 Dose: 650 mg Amoxicillin/[facility]avulanate [facility] Last Admin: 02/21/18 07:56 Dose: 875 mg [facility]) [facility] Stop: 03/10/18 17:01 Last Admin: 02/21/18 07:56 Dose: 325 mg Bisacodyl (Dulcolax) 10 mg RECTAL .PRN X 1 PRN PRN Reason: Constipation Last Admin: 02/19/18 02:53 Dose: 10 mg Famotidine (Pepcid) 40 mg PO DAILY [facility] Last Admin: 02/21/18 07:56 Dose: 40 mg Lorazepam (Ativan) 0.5 mg PO QHS PRN PRN PRN Reason: SLEEP Last Admin: 02/20/18 22:56 Dose: 0.5 mg Magnesium Hydroxide (Milk Of Magnesia) 30 ml PO .PRN X 1 PRN PRN Reason: Constipation Last Admin: 02/18/18 17:37 Dose: 30 ml Metoprolol Tartrate (Lopressor (Beta Sariah)) 25 mg PO BID [facility] Last Admin: 02/21/18 10:05 Dose: 25 mg Multivitamins (Multivitamin) 1 tablet PO DAILY@0800 [facility] Last Admin: 02/21/18 07:56 Dose: 1 tablet Nitroglycerin (Nitrostat) 0.4 mg SUBLINGUAL Q5M PRN PRN Reason: Chest Pain Ondansetron HCl (Zofran Odt) 4 mg PO Q6H PRN PRN PRN Reason: NAUSEA Last Admin: 02/20/18 09:43 Dose: 4 mg Oxycodone HCl (Oxyir) 5 - 10 mg PO Q4H PRN PRN PRN Reason: PAIN Last Admin: 02/21/18 08:06 Dose: 5 mg Ranolazine (Ranexa) 1,000 mg PO BID [facility] Last Admin: 02/21/18 07:57 Dose: 1,000 mg Senna/Docusate Sodium (Senokot-S, Alisson-Colace) 2 tablet PO BID [facility] Last Admin: 02/21/18 07:59 Dose: 1 tablet Tamsulosin HCl (Flomax) 0.4 mg PO DAILY@1730 [facility] Last Admin: 02/20/18 17:47 Dose: Not Given Medical Necessity - Tobacco Use Smoking Status: Never smoker Tobacco Use: Non-smoker Assessment/Plan All Active Problems (Last Reviewed 12/30/17 @ 11:41 by Leeanna Calvo) Status post total knee replacement, right (Acute) The patient is a 82 year old CM with PMH HTN, HLD, CAD s/p CABG, S/P stents, morbid obesity, H/O Atrial flutter s/p ablation not on AC per Cardiology, BPH, had recent right total knee replacement on 02/06/[address] Schmidt now admitted to [facility] with debility s/p right TKR, for > 3 hrs therapy daily, with a goal of returning back home at or near his prior level of functional independence. Plan -PT for gait stability -OT for ADLs -Analgesics as needed -Bowel protocol -HTN- on Lopressor, goal BP < 130/80 mmHg -CAD s/p CABG and stents- stable, on ASA and Ranolazine -H/O atrial flutter- s/p ablation, management per Cardiology Dr. Bustillo/Dr. Brito, is not on AC per Cardiology, will defer further management to Cardiology as outpatient, stroke risk discussed with patient. -BPH-on Tamsulosin -Fall precautions -GI/DVT prophylaxis- SCDs, RENETTA etiennee knee high, Dr. Schmidt wants him to be on ASA 325 mg PO BID post surgery for 30 days and does not want to be on pharmacological DVT prophylaxis. Will follow surgery recommendations. DVT risks discussed with patient. -Follow up- Per Dr. Schmidt's office directions, the dressing has to be removed in 3 days on 02/13/18, hao to be removed on 02/17/18. Follow with Dr. Schmidt -Hospitalist consult and further medical management per hospitalist recommendations
[2018-02-21] MEDS: Ondansetron ODT 4 MG Tablet PO (13:57)
[2018-02-21 21:44] VITALS: BP 127/81; PULSE 69; RESP 18; TEMP 37; O2SAT 93
[2018-02-21] MEDS: LORazepam 0.5 MG Tablet PO (22:28)
[2018-02-22] MEDS: LORazepam 0.5 MG Tablet PO ×2 (00:26→21:30)
--- NOTE | 2018-02-22 01:16 | NURSING ---
Reviewed and agree with GEOSCIENCE PROFESSOR documentation and FIMs charting.
[2018-02-22 08:27] VITALS: BP 113/77; PULSE 72
[2018-02-22] MEDS: Metoprolol Tartrate 25 MG Tablet PO ×2 (08:27→21:29)
[2018-02-22] MEDS: Multivitamins,Therapeutic Tablet 1 TABLET PO (08:27)
[2018-02-22] MEDS: Aspirin 325 MG Tablet PO ×2 (08:27→17:12)
[2018-02-22] MEDS: Amox/Clavulanate 875 MG Tablet PO ×2 (08:27→17:11)
[2018-02-22] MEDS: Famotidine 20 MG Tablet 40 MG PO (08:28)
[2018-02-22] MEDS: Senna/Docusate Sodium 1 Tablet 2 TABLET PO ×2 (08:28→21:30)
[2018-02-22] MEDS: Ranolazine 500 MG Tablet 1000 MG PO ×2 (08:28→21:30)
[2018-02-22 08:43] VITALS: BP 113/77; PULSE 72; RESP 16; TEMP 36.6; O2SAT 96
[2018-02-22] MEDS: Ondansetron ODT 4 MG Tablet PO (10:13)
--- NOTE | 2018-02-22 13:14 | PN.NEURO_ITS ---
Patient Problems: Active and Suspected Problems (Last Reviewed 12/30/17 @ 11:41 by Leeanna Calvo) Status post total knee replacement, right (Acute) Subjective: Patient seen during therapy session, no new complaints. Tolerating therapy. Right knee incision healing nicely, no drainage noted or edema. Incision is C/D/ I. - Physical Exam General: Alert, Oriented x3, Cooperative HEENT: Atraumatic, PERRLA, EOMI, Normocephalic Neck: Supple, No JVD, Negative Carotid Bruits Lungs: Clear to auscultation, Normal air movement Cardiovascular: Regular rate, No murmurs Abdomen: Bowel Sounds Present, Soft, Non Tender Extremities: No edema, Capillary Refill Less than 3 Seconds Skin: No rashes, No breakdown Musculoskeletal: No Tenderness to Palpation of Joints or Extremities Neurological: Cranial nerves II-XII grossly intact Psych/Mental Status: Normal Affect, Appropriate, Alert and oriented to time, place, person, mood and affect Vital Signs Temp Pulse Resp BP Pulse Ox 97.9 F 72 16 113/77 96 02/22/18 08:43 02/22/18 08:43 02/22/18 08:43 02/22/18 08:43 02/22/18 08:43 Oxygen Delivery Method Room Air Weight: 105.4 kg Body Mass Index (BMI) 35.7 Intake and Output for Last 24 Hours 02/20/18 02/21/18 02/22/18 23:59 23:59 23:59 Intake Total 480 / 480 720 / 720 480 / 480 Balance 480 / 480 720 / 720 480 / 480 Active Medications Acetaminophen (Tylenol) 650 mg PO Q8H PRN PRN PRN Reason: PAIN Last Admin: 02/19/18 19:52 Dose: 650 mg Amoxicillin/Clavulanate Potassium (Augmentin Tablet) 875 mg PO BIDCM [facility] Last Admin: 02/22/18 08:27 Dose: 875 mg [facility]irin ([facility]in) [facility] Stop: 03/10/18 17:01 Last Admin: 02/22/18 08:27 Dose: 325 mg Bisacodyl (Dulcolax) 10 mg RECTAL .PRN X 1 PRN PRN Reason: Constipation Last Admin: 02/19/18 02:53 Dose: 10 mg Famotidine (Pepcid) 40 mg PO DAILY [facility] Last Admin: 02/22/18 08:28 Dose: 40 mg Lorazepam (Ativan) 0.5 mg PO QHS PRN PRN PRN Reason: SLEEP Last Admin: 02/22/18 00:26 Dose: 0.5 mg Magnesium Hydroxide (Milk Of Magnesia) 30 ml PO .PRN X 1 PRN PRN Reason: Constipation Last Admin: 02/18/18 17:37 Dose: 30 ml Metoprolol Tartrate (Lopressor (Beta Sariah)) 25 mg PO BID [facility] Last Admin: 02/22/18 08:27 Dose: 25 mg Multivitamins (Multivitamin) 1 tablet PO DAILY@0800 [facility] Last Admin: 02/22/18 08:27 Dose: 1 tablet Nitroglycerin (Nitrostat) 0.4 mg SUBLINGUAL Q5M PRN PRN Reason: Chest Pain Ondansetron HCl (Zofran Odt) 4 mg PO Q6H PRN PRN PRN Reason: NAUSEA Last Admin: 02/22/18 10:13 Dose: 4 mg Oxycodone HCl (Oxyir) 5 mg PO Q4H PRN PRN PRN Reason: SEVERE PAIN (6-10/10) Ranolazine (Ranexa) 1,000 mg PO BID [facility] Last Admin: 02/22/18 08:28 Dose: 1,000 mg Senna/Docusate Sodium (Senokot-S, Alisson-Colace) 2 tablet PO BID [facility] Last Admin: 02/22/18 08:28 Dose: 2 tablet Tamsulosin HCl (Flomax) 0.4 mg PO DAILY@1730 [facility] Last Admin: 02/21/18 16:25 Dose: Not Given Medical Necessity - Tobacco Use Smoking Status: Never smoker Tobacco Use: Non-smoker Assessment/Plan All Active Problems (Last Reviewed 12/30/17 @ 11:41 by Leeanna Calvo) Status post total knee replacement, right (Acute) The patient is a 82 year old CM with PMH HTN, HLD, CAD s/p CABG, S/P stents, morbid obesity, H/O Atrial flutter s/p ablation not on AC per Cardiology, BPH, had recent right total knee replacement on 02/06/[address] Schmidt now admitted to [facility] with debility s/p right TKR, for > 3 hrs therapy daily, with a goal of returning back home at or near his prior level of functional independence. Plan -PT for gait stability -OT for ADLs -Analgesics as needed -Bowel protocol -HTN- on Lopressor, goal BP < 130/80 mmHg -CAD s/p CABG and stents- stable, on ASA and Ranolazine -H/O atrial flutter- s/p ablation, management per Cardiology Dr. Bustillo/Dr. Brito, is not on AC per Cardiology, will defer further management to Cardiology as outpatient, stroke risk discussed with patient. -BPH-on Tamsulosin -Fall precautions -GI/DVT prophylaxis- SCDs, RENETTA etiennee knee high, Dr. Schmidt wants him to be on ASA 325 mg PO BID post surgery for 30 days and does not want to be on pharmacological DVT prophylaxis. Will follow surgery recommendations. DVT risks discussed with patient. -Follow up- Per Dr. Schmidt's office directions, the dressing has to be removed in 3 days on 02/13/18, hao to be removed on 02/17/18. Follow with Dr. Schmidt -Hospitalist consult and further medical management per hospitalist recommendations
[2018-02-22 19:51] VITALS: BP 146/81; PULSE 53; RESP 16; TEMP 36.9; O2SAT 94
[2018-02-22 21:29] VITALS: BP 119/84; PULSE 87
[2018-02-22 21:35] VITALS: PULSE 87; RESP 18; O2SAT 94
--- NOTE | 2018-02-23 04:24 | NURSING ---
REVIEWED AND AGREE WITH SENIOR ACCOUNTING SPECIALIST'S HANDOFF.
[2018-02-23 07:59] VITALS: BP 127/65; PULSE 68; RESP 18; TEMP 36.7; O2SAT 94
--- NOTE | 2018-02-23 08:53 | PN.NEURO_ITS ---
Patient Problems: Active and Suspected Problems (Last Reviewed 12/30/17 @ 11:41 by Leeanna Calvo) Status post total knee replacement, right (Acute) Subjective: Patient lying quietly in bed resting. Did not sleep well last night, was having muscles aches and back discomfort. Feels better now after getting Tylenol and pain medications. He is tolerating therapy. He is scheduled to go home 02/24, with outpatient Physical therapy. - Physical Exam General: Alert, Oriented x3, Cooperative HEENT: Atraumatic, PERRLA, EOMI, Normocephalic Neck: Supple, No JVD, Negative Carotid Bruits Lungs: Clear to auscultation, Normal air movement Cardiovascular: Regular rate, No murmurs Abdomen: Bowel Sounds Present, Soft, Non Tender Extremities: No edema, Capillary Refill Less than 3 Seconds Skin: No rashes, No breakdown Musculoskeletal: No Tenderness to Palpation of Joints or Extremities Neurological: Cranial nerves II-XII grossly intact Psych/Mental Status: Normal Affect, Appropriate, Alert and oriented to time, place, person, mood and affect Vital Signs Temp Pulse Resp BP Pulse Ox 98.0 F 68 18 127/65 H 94 02/23/18 07:59 02/23/18 07:59 02/23/18 07:59 02/23/18 07:59 02/23/18 07:59 Oxygen Delivery Method Room Air Weight: 105.4 kg Body Mass Index (BMI) 35.7 Intake and Output for Last 24 Hours 02/21/18 02/22/18 02/23/18 23:59 23:59 23:59 Intake Total 720 / 720 480 / 480 Balance 720 / 720 480 / 480 Active Medications Acetaminophen (Tylenol) 650 mg PO Q8H PRN PRN PRN Reason: PAIN Last Admin: 02/19/18 19:52 Dose: 650 mg Amoxicillin/Clavulanate Potassium ([facility]in Tablet) [facility] Last Admin: 02/23/18 09:09 Dose: 875 mg Aspirin (Aspirin) [facility] Stop: 03/10/18 17:01 Last Admin: 02/23/18 09:09 Dose: 325 mg Bisacodyl (Dulcolax) 10 mg RECTAL .PRN X 1 PRN PRN Reason: Constipation Last Admin: 02/19/18 02:53 Dose: 10 mg Famotidine (Pepcid) 40 mg PO DAILY [facility] Last Admin: 02/23/18 09:09 Dose: 40 mg Lorazepam (Ativan) 0.5 mg PO QHS PRN PRN PRN Reason: SLEEP Last Admin: 02/22/18 21:30 Dose: 0.5 mg Magnesium Hydroxide (Milk Of Magnesia) 30 ml PO .PRN X 1 PRN PRN Reason: Constipation Last Admin: 02/18/18 17:37 Dose: 30 ml Metoprolol Tartrate (Lopressor (Beta Sariah)) 25 mg PO BID [facility] Last Admin: 02/23/18 09:09 Dose: 25 mg Multivitamins (Multivitamin) 1 tablet PO DAILY@0800 [facility] Last Admin: 02/23/18 09:09 Dose: 1 tablet Nitroglycerin (Nitrostat) 0.4 mg SUBLINGUAL Q5M PRN PRN Reason: Chest Pain Ondansetron HCl (Zofran Odt) 4 mg PO Q6H PRN PRN PRN Reason: NAUSEA Last Admin: 02/22/18 10:13 Dose: 4 mg Oxycodone HCl (Oxyir) 5 mg PO Q4H PRN PRN PRN Reason: SEVERE PAIN (6-10/10) Last Admin: 02/23/18 09:15 Dose: 5 mg Ranolazine (Ranexa) 1,000 mg PO BID [facility] Last Admin: 02/23/18 09:09 Dose: 1,000 mg Senna/Docusate Sodium (Senokot-S, Alisson-Colace) 2 tablet PO BID [facility] Last Admin: 02/23/18 09:10 Dose: Not Given Tamsulosin HCl (Flomax) 0.4 mg PO DAILY@1730 [facility] Last Admin: 02/22/18 17:12 Dose: Not Given Medical Necessity - Tobacco Use Smoking Status: Never smoker Tobacco Use: Non-smoker Assessment/Plan All Active Problems (Last Reviewed 12/30/17 @ 11:41 by Leeanna Calvo) Status post total knee replacement, right (Acute) The patient is a 82 year old CM with PMH HTN, HLD, CAD s/p CABG, S/P stents, morbid obesity, H/O Atrial flutter s/p ablation not on AC per Cardiology, BPH, had recent right total knee replacement on 02/06/[address] Schmidt now admitted to [facility] IP with debility s/p right TKR, for > 3 hrs therapy daily, with a goal of returning back home at or near his prior level of functional independence. Plan -PT for gait stability -OT for ADLs -Analgesics as needed -Bowel protocol -HTN- on Lopressor, goal BP < 130/80 mmHg -CAD s/p CABG and stents- stable, on ASA and Ranolazine -H/O atrial flutter- s/p ablation, management per Cardiology Dr. Bustillo/Dr. Brito, is not on AC per Cardiology, will defer further management to Cardiology as outpatient, stroke risk discussed with patient. -BPH-on Tamsulosin -Fall precautions -GI/DVT prophylaxis- SCDs, RENETTA etiennee knee high, Dr. Schmidt wants him to be on ASA 325 mg PO BID post surgery for 30 days and does not want to be on pharmacological DVT prophylaxis. Will follow surgery recommendations. DVT risks discussed with patient. -Follow up- Per Dr. Schmidt's office directions, the dressing has to be removed in 3 days on 02/13/18, hao to be removed on 02/17/18. Follow with Dr. Schmidt -Hospitalist consult and further medical management per hospitalist recommendations - Discharge home on 02/24 with outpatient Physical therapy
[2018-02-23 09:09] VITALS: BP 127/65; PULSE 68
[2018-02-23] MEDS: Metoprolol Tartrate 25 MG Tablet PO ×2 (09:09→20:18)
[2018-02-23] MEDS: Multivitamins,Therapeutic Tablet 1 TABLET PO (09:09)
[2018-02-23] MEDS: Ranolazine 500 MG Tablet 1000 MG PO ×2 (09:09→20:18)
[2018-02-23] MEDS: Amox/Clavulanate 875 MG Tablet PO ×2 (09:09→17:15)
[2018-02-23] MEDS: Aspirin 325 MG Tablet PO ×2 (09:09→17:15)
[2018-02-23] MEDS: Famotidine 20 MG Tablet 40 MG PO (09:09)
[2018-02-23] MEDS: oxyCODONE 5 MG Tablet PO ×2 (09:15→15:37)
[2018-02-23] MEDS: Acetaminophen 325 MG Tablet 650 MG PO ×2 (11:40→20:19)
--- NOTE | 2018-02-23 14:57 | PCM.PROGNOTE ---
Patient Problems: Active and Suspected Problems (Last Reviewed 12/30/17 @ 11:41 by Leeanna Calvo) Status post total knee replacement, right (Acute) Subjective: Chief complaint: Follow-up after consultation for medical management after admission to inpatient rehab rotation unit after patient underwent right total knee replacement. Patient seen and examined. No acute events overnight. He complains of tingling on the lateral aspect of the right upper extremity. She denied focal weakness. He denied neck pain, shoulder pain, arm or hand pain. 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 His vital signs are stable. - Physical Exam General: Alert, Cooperative, No apparent distress HEENT: Atraumatic, PERRLA, EOMI, Normocephalic Oral: Moist Mucosa, No Gingival or Mucosal Lesions/ Ulcerations Neck: Supple, No JVD, Negative Carotid Bruits, Trachea Midline, Thyroid Normal Size and Texture Lungs: Clear to auscultation, Normal air movement, No rhonchi, No wheeze, No rales Cardiovascular: Regular rate, Regular Rhythm, Normal S1, Normal S2, PMI Normal Abdomen: Bowel Sounds Present, Soft, Non Tender, Non-Distended, No Hepato-splenomegaly Extremities: No clubbing, No cyanosis, No edema Skin: No rashes, No breakdown Lymphatic: No Cervical, Supraclavicular, or Inguinal Adenopathy Neurological: Cranial nerves II-XII grossly intact, Motor Exam 5/5 strength throughout Psych/Mental Status: Normal Affect, Appropriate, Alert and oriented to time, place, person, mood and affect Vital Signs Temp Pulse Resp BP Pulse Ox 98.0 F 68 18 127/65 H 94 02/23/18 07:59 02/23/18 09:09 02/23/18 07:59 02/23/18 09:09 02/23/18 07:59 Oxygen Delivery Method Room Air Weight: 232 lb 5.875 oz Body Mass Index (BMI) 35.7 Intake and Output for Last 24 Hours 02/21/18 02/22/18 02/23/18 23:59 23:59 23:59 Intake Total 720 / 720 480 / 480 320 / 320 Balance 720 / 720 480 / 480 320 / 320 Medical Necessity - Tobacco Use Smoking Status: Never smoker Tobacco Use: Non-smoker Assessment/Plan All Active Problems (Last Reviewed 12/30/17 @ 11:41 by Leeanna Calvo) Status post total knee replacement, right (Acute) This is an 82 years old male patient who underwent right total knee replacement and subsequently admitted to inpatient rehab rotation unit for physical and occupational therapy and I am seeing him for follow-up after consultation for medical management. #1 status post right knee replacement: Patient is doing well. Right knee pain is under control. He is doing fine with physical therapy. His vital signs are stable. Today, he complains of tingling along the lateral aspect of the right upper extremity. Denied neck, shoulder, elbow or hand pain. He denies any focal weakness. He does have history of shoulder replacement. At this time, I doubt any stroke or TIA and no indication to do any further workup. He mentioned that his right elbow is sore because he has been pushing and putting more weight when ambulating. Plan to continue PT OT according to rehab team. #2 CAD status post CABG and stents: Stable, continue aspirin, metoprolol and Ranexa. #3 hypertension: Blood pressure stable, continue metoprolol. #4 hyperlipidemia: Diet controlled, not on statins. #5 paroxysmal A. fib: Rate is controlled, in sinus rhythm at this time. He is on metoprolol for rate control. #6 DVT prophylaxis: Full dose aspirin twice daily. This note was generated with [email or web address] dictation software. It may contain incorrect words, spelling, and punctuation that were not noted in checking the note before signing. Code Visit Inpatient E&M: 91828 Subs Hosp L2
--- NOTE | 2018-02-23 15:15 | CASEMGMT ---
Social Work Collaborating with patient in room. Patient requesting for outpatient physical therapy to be set up through [facility] Patient plans to return home alone with son for support as needed. Patient son will provide transportation home for patient at time of discharge. Patient reporting to have all needed durable medical equipment already set up within the home. Patient reporting no further needs at this time. Support given. Telephone call to [facility] [employer] [facility] This social studies teacher setting up outpatient physical therapy appointment for 03/01/18 @ 1:30pm. Order faxed. Spoke with patient in room. Patient is agreeable to appointment time and date. Proposed discharge date: 02/24/18 PLAN: Discharge to home alone and outpatient physical therapy. Petrona EDUARDO, BAR PORTER
[2018-02-23 20:11] VITALS: BP 154/73; PULSE 71; RESP 18; TEMP 36.5; O2SAT 97
[2018-02-23 20:18] VITALS: BP 154/73; PULSE 71
[2018-02-23] MEDS: LORazepam 0.5 MG Tablet PO (22:12)
--- NOTE | 2018-02-24 07:00 | NURSING ---
Reviewed and agree with LPNs fims and handoff
[2018-02-24 07:51] VITALS: BP 130/89; PULSE 63
[2018-02-24] MEDS: Ranolazine 500 MG Tablet 1000 MG PO (07:51)
[2018-02-24] MEDS: Multivitamins,Therapeutic Tablet 1 TABLET PO (07:51)
[2018-02-24] MEDS: Aspirin 325 MG Tablet PO (07:51)
[2018-02-24] MEDS: Amox/Clavulanate 875 MG Tablet PO (07:51)
[2018-02-24] MEDS: Metoprolol Tartrate 25 MG Tablet PO (07:51)
[2018-02-24] MEDS: Famotidine 20 MG Tablet 40 MG PO (07:51)
[2018-02-24 08:50] VITALS: BP 130/89; PULSE 63; RESP 18; TEMP 36.9; O2SAT 95
--- NOTE | 2018-02-24 08:57 | PCM.DC ---
- Discharge Diagnoses Current Active Problems: Current Active and Chronic Problems (Last Reviewed 12/30/17 @ 11:41 by Leeanna Calvo) Status post total knee replacement, right (Acute) Reason(s) for Visit for Discharge Instructions: Right Knee Arthroplasty You will use the following diet at home:: Regular Your food should be the consistency of: Regular Your liquids should be the consistency of: Regular/Thin Discharge Activity: May Not Drive - untill cleared by your Orthopedic surgeon, May Shower, Use Walker, - - Do not soak in a tub Bath Weight Bearing Status: Weight bearing as tolerated Call your doctor if your incision/area has: Increased Pain/ Swelling, Increased Redness, Foul Smelling Discharge, Swelling at the incision site Call your doctor if you observe: Fever of 101 or Higher, Coldness, Increased Pain, Numbness or Tingling, Change in Color, Inability to urinate, Inability to have a bowel movement, Using more than one pad per hour, Shortness of breath, Dizziness, Fainting spells, Swelling in the ankles, Chest pain, Prolonged hiccoughing, Increased palpitations (irregular heartbeat), Calf discomfort, Uncontrolled pain Allergies/Adverse Reactions: Allergies No Known Allergies Allergy (Verified 02/11/18 18:41) Medications to take at Discharge Tamsulosin HCl [Flomax] 0.4 mg PO DAILY 03/06/16 metoprolol tartrate 25 mg tablet 25 mg PO BID tab 06/23/17 ranolazine ER 1,000 mg tablet,extended release,12 hr 1,000 mg PO BID tab 06/23/17 nitroglycerin 0.4 mg sublingual tablet 0.4 mg SUBLINGUAL Q5M PRN #25 tab 12/30/17 Multivitamin [Multiple Vitamins] 1 each PO DAILY 01/10/18 famotidine 40 mg tablet 40 mg PO QDAY 01/25/18 Acetaminophen [Tylenol] 650 mg PO Q8 PRN 02/10/18 Aspirin 325 mg PO BIDCM 02/10/18 Amox/Clavulanate Tablet [Augmentin Tablet] 875 mg PO BIDCM 8 Days #15 tab 02/24/18 The following prescriptions were given: Amox/Clavulanate Tablet [Augmentin Tablet] 875 mg PO BIDCM 8 Days #15 tab Primary Care Physician: Kaiser Pan Chi, MD [Primary Care Provider] - Test Results: Test results from this visit will be discussed in further detail at your follow-up appointment, if applicable. Please Follow Up With: Dr. Pan-PCP Please Follow Up With: Josephine Tobar - Outpatient Physical Therapy Proposed Discharge Date: 02/24/18
[2018-02-24 09:00] VITALS: BP 130/89; PULSE 63; RESP 18; TEMP 36.9; O2SAT 95
--- NOTE | 2018-02-24 09:00 | PCM.RU.DC ---
Rehab Discharge Summary DATE OF ADMISSION: 02/10/18 DATE OF DISCHARGE: 02/24/18 - Rehab Diagnosis Right Knee Arthroplasty Discharge Diet: No Restrictions Discharge Activity: May Not Drive - untill cleared by your Orthopedic surgeon, May Shower, Use Walker, - - Do not soak in a tub Bath Weight Bearing Status: Weight bearing as tolerated Call your doctor if your incision/area has: Increased Pain/ Swelling, Increased Redness, Foul Smelling Discharge, Swelling at the incision site Call your doctor if you observe: Fever of 101 or Higher, Coldness, Increased Pain, Numbness or Tingling, Change in Color, Inability to urinate, Inability to have a bowel movement, Using more than one pad per hour, Shortness of breath, Dizziness, Fainting spells, Swelling in the ankles, Chest pain, Prolonged hiccoughing, Increased palpitations (irregular heartbeat), Calf discomfort, Uncontrolled pain Home Medications: Medications to take at Discharge Tamsulosin HCl [Flomax] 0.4 mg PO DAILY 03/06/16 metoprolol tartrate 25 mg tablet 25 mg PO BID tab 06/23/17 ranolazine ER 1,000 mg tablet,extended release,12 hr 1,000 mg PO BID tab 06/23/17 nitroglycerin 0.4 mg sublingual tablet 0.4 mg SUBLINGUAL Q5M PRN #25 tab 12/30/17 Multivitamin [Multiple Vitamins] 1 each PO DAILY 01/10/18 famotidine 40 mg tablet 40 mg PO QDAY 01/25/18 Acetaminophen [Tylenol] 650 mg PO Q8 PRN 02/10/18 Aspirin 325 mg PO BIDCM 02/10/18 Amox/Clavulanate Tablet [Augmentin Tablet] 875 mg PO BIDCM 8 Days #15 tab 02/24/18 Following Prescrptions Were Given to Patient: Amox/Clavulanate Tablet [Augmentin Tablet] 875 mg PO BIDCM 8 Days #15 tab Primary Care Physician: Kaiser Pan Chi, MD [Primary Care Provider] - Please Follow Up With: Dr. Pan-PCP Please Follow Up With: [facility] - Outpatient Physical Therapy Disposition: Home - with outpatient Physical therapy Minutes spent on discharge:: 40 Patient Condition:: Good Rehab Course The patient is a 82 year old CM with PMH HTN, HLD, CAD s/p CABG, S/P stents, morbid obesity, H/O Atrial flutter s/p ablation not on AC per Cardiology, BPH, had recent right total knee replacement on 02/06/[address] Smith now admitted to [facility] with debility s/p right TKR, for > 3 hrs therapy daily, with a goal of returning back home at or near his prior level of functional independence. Patient had Right TKR done by Dr. Schmidt on 02/06/18, was discharged home on 02/08/18, had gone for therapy at Dr. Smith's office who referred him to inpatient rehab since patient was complaining of right leg stiffness and right knee pain. Patient lives alone, denies any frequent falls, had a mechanical fall about a month ago per patient when he missed his step on a curb, fell and had rib fractures on the right side, bu denies using cane or walker to ambulate, does not need any assistance for his ADLs, lives in a ranch style house, has steps to get to the basement and also has 2 steps to get into the house from the backyard, has a steep ramp in the front. At present patient denies any AVALOS, visual disturbances, focal motor weakness or sensory loss. He continues to have right knee pain/stiffness and swelling the legs. With Physical therapy, he is able to get in and out of bed, go from a sitting to a standing position at stand by assist. He is able to go up and down 10 steps using two hand rail at contact guard. He has walked about 105 feet using a walker. With Occupational therapy, he is set up for his personal grooming, he is able to do his upper body and toileting at supervision to standby assist. With his lower body he requires assistance at standby with bathing. With nursing, his incision on his right knee looks good no swelling is noted, the redness has improved since starting on Augmentin, he will follow up with his Orthopedic surgeon Dr Smith next week on March 01, stop date for his Augmentin is March 03 2018, He Will be discharge home with outpatient Physical therapy. Meaningful Use Info Meaningful Use Diagnoses (Choose all that apply): None applicable
--- NOTE | 2018-02-24 13:20 | NURSING ---
Went over discharge instructions, medications and appts. pt and son verbalized understanding. Pt was discharges home with son with all personal belongings.
== END 2018-02-24 13:28 | disposition home or self-care (01) | DRG 560 ==
PROVIDERS: Psychiatry & Neurology Neurology; Admitting Provider Psychiatry & Neurology Neurology; Family Provider Family Medicine Geriatric Medicine; PCP Family Medicine Geriatric Medicine; Visit Provider Hospitalist
DX: Z47.1 Aftercare following joint replacement surgery (principal); I48.92 Unspecified atrial flutter; Z96.651 Presence of right artificial knee joint; Z95.1 Presence of aortocoronary bypass graft; I10 Essential (primary) hypertension; E66.01 Morbid (severe) obesity due to excess calories; Z68.35 Body mass index [BMI] 35.0-35.9, adult; Z71.3 Dietary counseling and surveillance; E78.5 Hyperlipidemia, unspecified; N40.0 Benign prostatic hyperplasia without lower urinary tract symptoms; I25.708 Atherosclerosis of coronary artery bypass graft(s), unspecified, with other forms of angina pectoris; I73.9 Peripheral vascular disease, unspecified; Z86.718 Personal history of other venous thrombosis and embolism; I48.0 Paroxysmal atrial fibrillation
CPT/HCPCS: 36415; 80053; 81001; 83036; 85025; 85652; 87086; 87088; 93970; 97110; 97116; 97162; 97166; 97530; 97535; 97802

== ENCOUNTER → 2018-03-02 11:28 | Outpatient (CLI) | payer MEDICARE, OTHER, SELFPAY ==
[2018-03-02 13:36] LABS: Absolute Neutrophil Count 3.4 X10^3/uL (2.0-7.7); Basophil# 0.03 X10^3/uL; Basophil% 0.6 % (0-1); Eosinophil# 0.18 X10^3/uL; Eosinophils% 3.5 % (0-5); Hematocrit 39.1 % (40-54); Hemoglobin 12.8 g/dl (13.0-16.5); Lymphocyte % 9.7 % (19-41); Mean Corp Hgb Conc 32.7 g/gl (32-36); Mean Corpuscular Hgb 35.5 pg (27.0-32.0); Mean Corpuscular Volume 108.3 fL (80-94); Mean Platelet Vol. 11.6 fl (6.2-12.0); Monocyte# 1.03 X10^3/uL; Monocyte% 19.9 % (0-10); Neutrophil # 3.41 X10^3/uL (2.7-7.7); Neutrophil % 65.7 % (47-70); Platelet Count 214 K/mm3 (150-450); RBC Distribution Width SD 58.5 fl (35.1-43.9); Red Blood Count 3.61 M/mm3 (4.6-6.2); White Blood Count 5.2 K/mm3 (4.4-11.0)
[2018-03-02 13:40] LABS: Anion Gap 8 (5-15); BUN 13 mg/dL (7-18); BUN/Creat Ratio 11.6 RATIO (10-20); Calcium,Total 9.1 mg/dL (8.5-10.1); Chloride 105 mmol/L (98-107); Creatinine, Serum 1.12 mg/dL (0.70-1.30); EST Glomerular Filtration Rate 67 mL/min (>60); Est Glom Filt Rate - Afr Amer 81 mL/min (>60); Glucose 104 mg/dL (74-106); Potassium 4.1 mmol/L (3.5-5.1); Sodium Level 142 mmol/L (136-145)
[2018-03-02 13:43] LABS: Differential Indicated SCAN CRITERIA MET; POSITIVE COUNT NO; POSITIVE DIFFERENTIAL YES; POSITIVE MORPHOLOGY NO
[2018-03-02 13:58] LABS: Differential Comment SCANNED
== END ==
PROVIDERS: Family Provider Family Medicine Geriatric Medicine; PCP Family Medicine Geriatric Medicine; Visit Provider Family Medicine Geriatric Medicine
DX: I25.10 Atherosclerotic heart disease of native coronary artery without angina pectoris (principal); E87.6 Hypokalemia
CPT/HCPCS: 36415; 80048; 85025

== ENCOUNTER → 2018-03-22 16:23 | Outpatient (CLI) | payer MEDICARE, OTHER, SELFPAY ==
--- NOTE | 2018-03-22 16:35 | CT_ITS ---
STUDY: CT ABDOMEN AND PELVIS WITH CONTRAST REASON FOR EXAM: Male, 82 years old. Abdominal pain. Prior history of appendectomy hernia repair and CABG. RADIATION DOSAGE (If Supplied By Facility): CTDIvol = ( 19.97 ) mGy, DLP = ( 1255.76 ) mGycm TECHNIQUE: Transaxial images were obtained from the dome of the diaphragm to the symphysis pubis with oral contrast. 100 ml of Isovue 300 contrast was administered. Sagittal and coronal images were reconstructed. Individualized dose optimization techniques were used for this CT. COMPARISON: None. FINDINGS: The visualized lung bases are unremarkable. Normal liver. Normal gallbladder and extrahepatic biliary system. Normal spleen. Normal pancreas. Normal bilateral adrenal glands. Subcentimeter cysts of the right kidney. 2 mm nonobstructing stone in the midpole of the right kidney without hydronephrosis or ureteral stones. Normal size of the left kidney. 4.2 cm simple cyst of the left kidney and additional subcentimeter cysts. Negative for hydronephrosis, renal or ureteral stones. Normal visualized stomach. Normal small intestine. Diverticulosis of the left and distal colon without evidence of diverticulitis. There is non-visualization of the appendix. There is diffuse atherosclerotic calcification of the abdominal aorta, without a demonstrated aneurysm. Normal inferior vena cava. Normal retroperitoneum. Mildly distended urinary bladder. Moderate elevation of the bladder base by prostate enlargement. Status post hernia repair without recurrent hernia. There are diffuse degenerative changes of the visualized lumbar spine with demineralized osseous structures. CT/Abdomen/Pelvis WITH Contrast IMPRESSION: No acute bowel related findings. Negative for evidence of bowel obstruction, perforation or inflammatory bowel changes. Diverticulosis of the left and distal colon without evidence of acute diverticulitis. 2 mm nonobstructing stone of the mid pole of the right kidney without hydronephrosis or ureteral stones. Simple renal cysts bilaterally. Moderate bladder distention and elevation of the bladder base by prostate enlargement. Status post umbilical and left pelvic wall hernia repair without evidence of recurrent hernia. Electronically Signed: Cristel Morillo MD at 19:31 EDT , Service support ,
[2018-03-22 16:52] LABS: Absolute Lymphocyte Count 0.65 X10^3/ul (0.83-4.51); Absolute Neutrophil Count 4.6 X10^3/uL (2.0-7.7); Basophil# 0.01 X10^3/uL; Basophil% 0.2 % (0-1); Eosinophil# 0.26 X10^3/uL; Hematocrit 40.9 % (40-54); Hemoglobin 13.2 g/dl (13.0-16.5); Lymphocyte # 0.65 X10^3/ul (4.0); Mean Corp Hgb Conc 32.3 g/gl (32-36); Mean Corpuscular Hgb 34.6 pg (27.0-32.0); Mean Corpuscular Volume 107.1 fL (80-94); Mean Platelet Vol. 11.4 fl (6.2-12.0); Monocyte# 0.95 X10^3/uL; Monocyte% 14.7 % (0-10); Neutrophil # 4.58 X10^3/uL (2.7-7.7); Neutrophil % 70.8 % (47-70); Platelet Count 153 K/mm3 (150-450); RBC Distribution Width CV 14.8 % (11.6-14.6); Red Blood Count 3.82 M/mm3 (4.6-6.2); White Blood Count 6.5 K/mm3 (4.4-11.0)
[2018-03-22 17:02] LABS: POSITIVE COUNT NO; POSITIVE DIFFERENTIAL NO; POSITIVE MORPHOLOGY NO
[2018-03-22 17:04] LABS: ALB/GLOB Ratio 1.1 RATIO (0.9-2.4); AST(SGOT) 21 U/L (15-37); Alanine Aminotransfer ALT/SGPT 23 U/L (16-61); Albumin, Serum 3.6 g/dL (3.2-5.0); Alkaline Phosphatase 83 U/L (45-117); Anion Gap 4 (5-15); BUN 12 mg/dL (7-18); BUN/Creat Ratio 10.6 RATIO (10-20); Calcium,Total 8.9 mg/dL (8.5-10.1); Chloride 106 mmol/L (98-107); Creatinine, Serum 1.13 mg/dL (0.70-1.30); EST Glomerular Filtration Rate 66 mL/min (>60); Est Glom Filt Rate - Afr Amer 80 mL/min (>60); Globulin 3.3 g/dL (2.2-4.2); Glucose 93 mg/dL (74-106); Potassium 3.8 mmol/L (3.5-5.1); Protein, Total 6.9 g/dL (6.4-8.2); Sodium Level 140 mmol/L (136-145)
== END ==
PROVIDERS: Family Provider Family Medicine Geriatric Medicine; PCP Family Medicine Geriatric Medicine; Referring Provider Family Medicine Geriatric Medicine; Visit Provider Family Medicine Geriatric Medicine
DX: R10.9 Unspecified abdominal pain (principal)
CPT/HCPCS: 36415; 74177; 80053; 85025; 87086; 87088; Q9967

== ENCOUNTER → 2018-05-08 13:43 | Outpatient (CLI) | payer MEDICARE, OTHER, SELFPAY ==
[2018-05-08 14:22] LABS: Absolute Lymphocyte Count 0.48 X10^3/ul (0.83-4.51); Absolute Neutrophil Count 4.4 X10^3/uL (2.0-7.7); Basophil# 0.02 X10^3/uL; Basophil% 0.3 % (0-1); Eosinophil# 0.23 X10^3/uL; Eosinophils% 3.6 % (0-5); Hematocrit 45.1 % (40-54); Hemoglobin 14.5 g/dl (13.0-16.5); Lymphocyte # 0.48 X10^3/ul (4.0); Lymphocyte % 7.6 % (19-41); Mean Corp Hgb Conc 32.2 g/gl (32-36); Mean Corpuscular Hgb 34.3 pg (27.0-32.0); Mean Corpuscular Volume 106.6 fL (80-94); Mean Platelet Vol. 11.8 fl (6.2-12.0); Monocyte# 1.17 X10^3/uL; Monocyte% 18.5 % (0-10); Neutrophil % 69.7 % (47-70); Platelet Count 170 K/mm3 (150-450); RBC Distribution Width CV 15.1 % (11.6-14.6); RBC Distribution Width SD 58.7 fl (35.1-43.9); Red Blood Count 4.23 M/mm3 (4.6-6.2); White Blood Count 6.3 K/mm3 (4.4-11.0)
[2018-05-08 14:24] LABS: Differential Indicated SCAN CRITERIA MET; POSITIVE COUNT NO; POSITIVE DIFFERENTIAL YES; POSITIVE MORPHOLOGY NO
[2018-05-08 14:36] LABS: Albumin, Serum 3.7 g/dL (3.2-5.0); BUN 15 mg/dL (7-18); BUN/Creat Ratio 11.8 RATIO (10-20); Creatinine, Serum 1.27 mg/dL (0.70-1.30); EST Glomerular Filtration Rate 58 mL/min (>60); Est Glom Filt Rate - Afr Amer 70 mL/min (>60); Glucose 101 mg/dL (74-106); Protein, Total 7.3 g/dL (6.4-8.2)
[2018-05-08 14:37] LABS: AST(SGOT) 22 U/L (15-37); Alanine Aminotransfer ALT/SGPT 21 U/L (16-61); Alkaline Phosphatase 83 U/L (45-117); Anion Gap 10 (5-15); Calcium,Total 9.2 mg/dL (8.5-10.1); Chloride 105 mmol/L (98-107); Globulin 3.6 g/dL (2.2-4.2); Potassium 4.1 mmol/L (3.5-5.1); Sodium Level 143 mmol/L (136-145)
--- NOTE | 2018-05-08 16:34 | CT_ITS ---
STUDY: CT ABDOMEN AND PELVIS WITH CONTRAST REASON FOR EXAM: Male, 82 years old. Abdominal pain. Nausea and vomiting. Patient has known hernias. RADIATION DOSAGE (If Supplied By Facility): CTDIvol = ( 19.81 ) mGy, DLP = ( 1169.50 ) mGycm TECHNIQUE: Transaxial images were obtained from the dome of the diaphragm to the symphysis pubis with oral contrast. 100CC ml of Isovue 300 contrast was administered. Sagittal and coronal images were reconstructed. Individualized dose optimization techniques were used for this CT. COMPARISON: 03/22/2018. FINDINGS: The visualized lung bases are unremarkable. The visualized portions of the heart are within normal limits. Normal liver. Normal gallbladder and extrahepatic biliary system. Normal spleen. Normal pancreas. Normal bilateral adrenal glands. No acute abnormalities of the kidneys. No significant changes. On the right, there is still a 3 mm nonobstructing renal stone. Left kidney still has a 4.8 cm mid renal cyst. No hydronephrosis on either side. Normal visualized stomach. Normal small intestine. There are multiple colonic diverticula consistent with diverticulosis. The appendix is visualized and appears normal. There is diffuse atherosclerotic calcification of the abdominal aorta with elongation and tortuosity, but without a demonstrated aneurysm. Normal inferior vena cava. Normal retroperitoneum. Normal urinary bladder. There is enlargement of the prostate gland. There has been previous repair of left inguinal hernia. No current hernias are seen. There are diffuse degenerative changes of the visualized lumbar spine. CT/Abdomen/Pelvis WITH Contrast IMPRESSION: No definite acute abnormalities are seen. Electronically Signed: Gianfranco Lee MD at 17:10 EST , Service support ,
== END ==
PROVIDERS: Family Provider Family Medicine Geriatric Medicine; PCP Family Medicine Geriatric Medicine; Referring Provider Family Medicine Geriatric Medicine; Visit Provider Family Medicine Geriatric Medicine
DX: R10.9 Unspecified abdominal pain (principal); N39.0 Urinary tract infection, site not specified
CPT/HCPCS: 36415; 74177; 80053; 85025; 87086; Q9967

== ENCOUNTER → 2018-07-13 14:33 | Outpatient (CLI) | payer MEDICARE, OTHER, SELFPAY ==
[2018-07-04 15:54] VITALS: BMI 33.3
--- NOTE | 2018-07-13 14:35 | ECHOCS_ITS ---
Reason For Study: DYSPNEA/SOB Procedure This was a 2D Doppler, Color Flow transthoracic echocardiogram. The study was technically difficult. Contrast injection was performed. Exam performed in department. Left Ventricle Normal LV size. Segmental dysfunction with preserved ejection fraction (see wall motion). The estimated ejection fraction is 60 %. Post operative septal motion. No evidence for diastolic dysfunction. Mid-inferoseptal : Hypokinetic. Mid-anteroseptal : Hypokinetic. Right Ventricle Mildly dilated right ventricle. Mild global right ventricular systolic dysfunction. Atria The left atrium is mildly enlarged. Normal right atrium. No doppler evidence for ASD. Mitral Valve There is no mitral annular calcification. Normal mitral valve. Trivial mitral valve insufficiency. Tricuspid Valve Normal tricuspid valve. Moderate (2+) tricuspid valve insufficiency. Right ventricular systolic pressure estimated to be 38 mmHg. Aortic Valve Trisinus/trileaflet aortic valve. Mild diffuse aortic valve thickening. Moderate diffuse aortic valve calcification. Mild aortic stenosis. Pulmonic Valve The pulmonic valve is not well visualized. Mild (1+) pulmonic valve insufficiency. Great Vessels Mildly dilated aortic root. Pericardium/Pleural No pericardial effusion. Medication 22 gauge I.V. with prn adaptor inserted into right arm. Diluted definity 3ml given slow IV push to enhance endocardial definition. MMode/2D Measurements & Calculations LVIDd: 4.3 cm IVSd: 1.1 cm LVOT diam: 2.0 cm LVIDs: 2.8 cm LVPWd: 1.0 cm RVDd: 3.8 cm FS: 35.3 % LVOT area: 3.1 cm2 Ao root diam: 4.1 cm LAV(MOD-bp): 44.9 ml LVAd ap4: 26.2 cm2 LAV(MOD-bp) Indexed: 20.2 ml/m2 EDV(MOD-sp4): 75.3 ml LAV(MOD-sp2): 55.0 ml EDV(sp4-el): 77.2 ml LAV(MOD-sp4): 32.5 ml LVAs ap4: 13.9 cm2 ESV(MOD-sp4): 26.7 ml ESV(sp4-el): 27.7 ml EF(MOD-sp4): 64.6 % EF(sp4-el): 64.1 % SV(MOD-sp4): 48.7 ml SV(sp4-el): 49.5 ml LA A4 area: 14.7 cm2 LA dimension(2D): 3.8 cm RA A4 area: 13.8 cm2 Time Measurements MV dec time: 0.34 sec Doppler Measurements & Calculations MV E max neto: 61.3 cm/sec Lat Peak E' Neto: 13.1 cm/sec Med Peak E' Neto: 7.4 cm/sec MV A max neto: 73.6 cm/sec E/E' lat: 4.7 E/E' med: 8.3 MV E/A: 0.83 Ao V2 max: 204.1 cm/sec LV V1 max: 88.3 cm/sec SV(LVOT): 69.6 ml Ao max P.7 mmHg LV V1 max P.1 mmHg Ao V2 mean: 147.5 cm/sec LV V1 mean P.7 mmHg Ao mean P.8 mmHg LV V1 mean: 62.0 cm/sec Ao V2 VTI: 49.1 cm LV V1 VTI: 22.3 cm CECILY(I,D): 1.4 cm2 CECILY(V,D): 1.3 cm2 PA V2 max: 119.8 cm/sec TR max neto: 296.4 cm/sec TR max P.3 mmHg Interpretation Summary The study was technically difficult. Contrast injection was performed. Segmental dysfunction with preserved ejection fraction (see wall motion). The estimated ejection fraction is 60 %. Post operative septal motion. Mildly dilated right ventricle. Mild global right ventricular systolic dysfunction. The left atrium is mildly enlarged. Trivial mitral valve insufficiency. Moderate (2+) tricuspid valve insufficiency. Mild aortic stenosis. Mild (1+) pulmonic valve insufficiency. Mildly dilated aortic root. Right ventricular systolic pressure estimated to be 38 mmHg. No evidence for diastolic dysfunction. Ordering Physician: Paulino Jose/Juan Jeronimo Referring Physician: DARSHANA GIBSON Performed By: Wendi Umaña RDCS
--- OUTSIDE RECORDS SUMMARY | 2018-09-17 09:46 | XMS RPT_ITS ---
:1935 Author Organization OHIP Support Name Relationship Address Phone R Unavailable Unavailable Unavailable JD ISA Unavailable UNKNOWN + [place] [address] R Unavailable Unavailable Unavailable ISA MILES JR Unavailable UNKNOWN + [place] [address] R Unavailable Unavailable Unavailable MILES JR ISA Finn Unavailable Unavailable + [place] [address] R Unavailable Unavailable Unavailable MILES ISA Unavailable Unavailable + [place] [address] R Unavailable Unavailable Unavailable MILES JR ISA Finn Unavailable Unavailable + [place] [address] R Unavailable Unavailable Unavailable JD RIVAS ISA Huma Unavailable Unavailable + [place] [address] R Unavailable Unavailable Unavailable MILES JR ISA Finn Unavailable Unavailable + [place] [address] R Unavailable Unavailable Unavailable JD RIVAS ISA Finn Unavailable Unavailable + [place] [address] R Unavailable Unavailable Unavailable JD JR ISA Finn Unavailable Unavailable + [place] [address] R Unavailable Unavailable Unavailable MILES JR ISA Finn Unavailable Unavailable + [place] [address] R Unavailable Unavailable Unavailable MILES JR ISA Finn Unavailable Unavailable + [place] [address] R Unavailable Unavailable Unavailable JD ISA Unavailable Unavailable + [place] [address] R Unavailable Unavailable Unavailable JD RIVAS ISA Finn Unavailable Unavailable + [place] [address] R Unavailable Unavailable Unavailable JD RIVAS ISA Finn Unavailable Unavailable + [place] [address] R Unavailable Unavailable Unavailable JD RIVAS ISA Huma Unavailable Unavailable + [place] [address] R Unavailable Unavailable Unavailable JD RIVAS ISA Huma Unavailable Unavailable + [place] [address] R Unavailable Unavailable Unavailable ISA MILES JR Unavailable Unavailable + [place] [address] R Unavailable Unavailable Unavailable ISA MILES JR Unavailable NA + [place], [place] R Unavailable Unavailable Unavailable ISA MILES JR Unavailable Unavailable + [place] [address] R Unavailable Unavailable Unavailable ISA MILES JR Unavailable Unavailable + [place] [address] R Unavailable Unavailable Unavailable ISA MILES JR Unavailable NA + [place], [place] R Unavailable Unavailable Unavailable ISA MILES JR Unavailable NA + [place], [place] R Unavailable Unavailable Unavailable ISA MILES JR Unavailable NA + [place], [place] Care Team Providers Name Role Phone Paulino Jose Attending Unavailable Maxim, Darshana Chi Referring Unavailable Paulino Jose Attending Unavailable Paulino Jose Referring Unavailable Maxim, Darshana Chi Primary Care Unavailable Maxim, Darshana Chi Attending Unavailable Maxim, Darshana Chi Primary Care Unavailable Juan Jeronimo Attending Unavailable Maxim, Darshana Chi Referring Unavailable Juan Jeronimo Attending Unavailable Maxim, Darshana Chi Referring Unavailable Maxim, Darshana Chi Primary Care Unavailable Peter Smith Admitting Unavailable Peter Smith Attending Unavailable Peter Smith Referring Unavailable Maxim, Darshana Chi Primary Care Unavailable Maxim, Darshana Chi Attending Unavailable Maxim, Darshana Chi Referring Unavailable Maxim, Darshana Chi Primary Care Unavailable Peter Smith Attending Unavailable Maxim, Darshana Chi Primary Care Unavailable Maxim, Darshana Chi Attending Unavailable Maxim, Darshana Chi Primary Care Unavailable Leeanna Calvo Attending Unavailable Magnolia, Rolando S. Admitting Unavailable Maxim, Darshana Chi Primary Care Unavailable Magnolia, Rolando S. Referring Unavailable Macho, Conner Consulting Unavailable Tan Robles Attending Unavailable Magnolia, Rolando S. Admitting Unavailable Macho, Conner Attending Unavailable Magnolia, Rolando S. Referring Unavailable Maxim, Darshana Chi Primary Care Unavailable Macho, Conner Consulting Unavailable Magnolia, Rolando S. Consulting Unavailable Magnolia, Rolando S. Admitting Unavailable Macho, Conner Attending Unavailable Magnolia, Rolando S. Referring Unavailable Maxim, Darshana Chi Primary Care Unavailable Macho, Conner Consulting Unavailable Magnolia, Rolando S. Consulting Unavailable Magnolia, Rolando S. Admitting Unavailable Jose Buckley Attending Unavailable Magnolia, Rolando S. Referring Unavailable Maxim, Darshana Chi Primary Care Unavailable Macho, Conner Consulting Unavailable Ina Jose Consulting Unavailable Ritchie Brito Attending Unavailable Peter Smith Referring Unavailable Magnolia, Rolando S. Admitting Unavailable Paintsil, Reynolds Attending Unavailable Magnolia, Rolando S. Referring Unavailable Maxim, Darshana Chi Primary Care Unavailable Macho, Conner Consulting Unavailable Paintsil, Reynolds Consulting Unavailable Magnolia, Rolando S. Admitting Unavailable Paintsil, Reynolds Attending Unavailable Magnolia, Rolando S. Referring Unavailable Maxim, Darshana Chi Primary Care Unavailable Macho, Conner Consulting Unavailable Paintsil, Reynolds Consulting Unavailable Magnolia, Rolando S. Admitting Unavailable Lele Zendejas Attending Unavailable Magnolia, Rolando S. Referring Unavailable Maxim, Darshana Chi Primary Care Unavailable Macho, Conner Consulting Unavailable Lele Zendejas Consulting Unavailable Magnolia, Rolando S. Admitting Unavailable Ashelfah, Ghasem Attending Unavailable Magnolia, Rolando S. Referring Unavailable Maxim, Darshana Chi Primary Care Unavailable Macho, Conner Consulting Unavailable Ashelfah, Ghasem Consulting Unavailable Maxim, Darshana Chi Attending Unavailable Maxim, Darshana Chi Primary Care Unavailable Maxim, Darshana Chi Attending Unavailable Maxim, Darshana Chi Primary Care Unavailable Maxim, Darshana Chi Referring Unavailable Maxim, Darshana Chi Attending Unavailable Maxim, Darshana Chi Primary Care Unavailable Maxim, Darshana Chi Referring Unavailable Leeanna Guy Attending Unavailable Maxim, Darshana Chi Referring Unavailable Maxim, Darshana Chi Primary Care Unavailable PROBLEMS PROBLEMS DATE TYPE CONDITION / CODE ATTENDING STATUS SOURCE Unknown R06.09 - Other forms of Paulino Jose 9 dyspnea / R06.09(ICD-10) [facility]ly [facility] Repository Unknown Z95.1 - Presence of Paulino Jose 9 aortocoronary bypass Community graft / Z95.1(ICD-10) Hospital Repository Unknown I48.92 - Unspecified Paulino Jose Active [place] 9 atrial flutter / Community I48.92(ICD-10) Hospital Repository Unknown I10 - Essential (primary) Paulino Jose Active [place] 9 hypertension / Community I10(ICD-10) Hospital Repository Unknown E78.5 - Hyperlipidemia, Paulino Jose Active [place] 9 unspecified / Community E78.5(ICD-10) Hospital Repository Unknown 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 / Hospital I35.1(ICD-10) Repository Unknown I25.10 - Atherosclerotic Damon, Paulino Iglesias Active [place] 9 heart disease of [place] Community coronary artery without Hospital angina pectoris / Repository I25.10(ICD-10) Unknown Z98.61 - Coronary Paulino Jose Active [place] 9 angioplasty status / Community Z98.61(ICD-10) Hospital Repository Unknown E78.00 - Pure Paulino Jose Active [place] 9 hypercholesterolemia, Community unspecified / Hospital E78.00(ICD-10) Repository Unknown E78.0 - Pure Paulino Jose Active [place] 9 hypercholesterolemia / Community E78.0(ICD-10) Hospital Repository Unknown R10.9 - Unspecified Maxim, Darshana Chi Active [place] 8 abdominal pain / Community R10.9(ICD-10) Hospital Repository Unknown N39.0 - Urinary tract Maxim, Darshana Chi Active [place] 8 infection, site not Community specified / N39.0(ICD-10) Hospital Repository Unknown E87.6 - Hypokalemia / Maxim, Darshana Chi Active [place] 8 E87.6(ICD-10) [facility] Repository Unknown 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[place], 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, [facility]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 / Hospital M17.11(ICD-10) Repository Unknown E55.9 - Vitamin D Maxim, Darshana Chi Active [place] 8 deficiency, unspecified / Community E55.9(ICD-10) Hospital Repository Unknown R07.89 - Other chest pain Daryl, Richmond Active [place] 8 / R07.89(ICD-10) [facility]ly [facility] Repository Unknown I25.708 - Atherosclerosis [place], Active [place] 8 of coronary artery bypass [facility] graft(s), unspecified, Hospital with other forms of Repository angina pectoris / I25.708(ICD-10) PROCEDURES PROCEDURES No Procedure Records FoundRESULTS RESULTS ECHO, COMPLETE W/ Observed: 07/13/2018 Status: F Source: [place] CONTRAST 8:27 PM [facility] REPOSITORY [facility] Cardiovascular Services [address] [place] [address] Echo Complete W/ Contrast 07/13/18 1437 MR#: [id number] Acct: [id number] Name: ISA MILES Rep #: [id number] : 1935 82 From: Juan Jeronimo MD Attending Dr: Paulino Jose NP Status: REG CLI Ordering Dr: 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 The study was technically difficult. Contrast injection was performed. Exam performed in department. Left Ventricle Normal LV size. Segmental dysfunction with preserved ejection fraction (see wall motion). The estimated ejection fraction is 60 %. Post operative septal motion. No evidence for diastolic dysfunction. Mid-inferoseptal : Hypokinetic. Mid-anteroseptal : Hypokinetic. Right Ventricle Mildly dilated right ventricle. Mild global right ventricular systolic dysfunction. Atria The left atrium is mildly enlarged. Normal right atrium. No doppler evidence for ASD. Mitral Valve There is no mitral annular calcification. Normal mitral valve. Trivial mitral valve insufficiency. Tricuspid Valve Normal tricuspid valve. Moderate (2+) tricuspid valve insufficiency. Right ventricular systolic pressure estimated to be 38 mmHg. Aortic Valve Trisinus/trileaflet aortic valve. Mild diffuse aortic valve thickening. Moderate diffuse aortic valve calcification. Mild aortic stenosis. Pulmonic Valve The pulmonic valve is not well visualized. Mild (1+) pulmonic valve insufficiency. Great Vessels Mildly dilated aortic root. Pericardium/Pleural No pericardial effusion. Medication 22 gauge I.V. with prn adaptor inserted into right arm. Diluted definity 3ml given slow IV push to enhance endocardial definition. MMode/2D Measurements AND Calculations LVIDd: 4.3 cm IVSd: 1.1 cm LVOT diam: 2.0 cm LVIDs: 2.8 cm LVPWd: 1.0 cm RVDd: 3.8 cm FS: 35.3 % LVOT area: 3.1 cm2 Ao root diam: 4.1 cm LAV(MOD-bp): 44.9 ml LVAd ap4: 26.2 cm2 LAV(MOD-bp) Indexed: 20.2 ml/m2 EDV(MOD-sp4): 75.3 ml LAV(MOD-sp2): 55.0 ml EDV(sp4-el): 77.2 ml LAV(MOD-sp4): 32.5 ml LVAs ap4: 13.9 cm2 ESV(MOD-sp4): 26.7 ml ESV(sp4-el): 27.7 ml EF(MOD-sp4): 64.6 % EF(sp4-el): 64.1 % SV(MOD-sp4): 48.7 ml SV(sp4-el): 49.5 ml LA A4 area: 14.7 cm2 LA dimension(2D): 3.8 cm RA A4 area: 13.8 cm2 Time Measurements MV dec time: 0.34 sec Doppler Measurements AND Calculations MV E max neto: 61.3 cm/sec Lat Peak E' Neto: 13.1 cm/sec Med Peak E' Neto: 7.4 cm/sec MV A max neto: 73.6 cm/sec E/E' lat: 4.7 E/E' med: 8.3 MV E/A: 0.83 Ao V2 max: 204.1 cm/sec LV V1 max: 88.3 cm/sec SV(LVOT): 69.6 ml Ao max P.7 mmHg LV V1 max P.1 mmHg Ao V2 mean: 147.5 cm/sec LV V1 mean P.7 mmHg Ao mean P.8 mmHg LV V1 mean: 62.0 cm/sec Ao V2 VTI: 49.1 cm LV V1 VTI: 22.3 cm CECILY(I,D): 1.4 cm2 CECILY(V,D): 1.3 cm2 PA V2 max: 119.8 cm/sec TR max neto: 296.4 cm/sec TR max P.3 mmHg Interpretation Summary The study was technically difficult. Contrast injection was performed. Segmental dysfunction with preserved ejection fraction (see wall motion). The estimated ejection fraction is 60 %. Post operative septal motion. Mildly dilated right ventricle. Mild global right ventricular systolic dysfunction. The left atrium is mildly enlarged. Trivial mitral valve insufficiency. Moderate (2+) tricuspid valve insufficiency. Mild aortic stenosis. Mild (1+) pulmonic valve insufficiency. Mildly dilated aortic root. Right ventricular systolic pressure estimated to be 38 mmHg. No evidence for diastolic dysfunction. Ordering Physician: Paulino Jose/Juan Jeronimo Referring Physician: DARSHANA GIBSON Performed By: Wendi Umaña RDCS 07/13/182025 Date Juan Jeronimo MD CC: BLADIMIR Jose; Darshana Gibson MD Date Dictated: 07/13/18 1437 Date Transcribed: 07/13/182025 Human Intelligence: Signed CARDIOLOGY VISIT Observed: 07/04/2018 Status: F Source: [place] REPORT 4:50 PM [facility] REPOSITORY [facility] [address] [place] [address]. [address] [place] [address] OFFICE VISIT Date of Service: 07/04/18 MR#: [id number] Acct: [id number] Name: ISA MILES Rep #: [id number] : 1935 Provider: BLADIMIR Jose Age/Sex: 82/M Location: [facility] [place] Status: Signed HPI HPI Details: ISA MILES, is a 82 M who presents to the office today for a cardiovascular outpatient follow-up. He has a history of coronary artery disease, PCI at [facility] on 10/19/2007 with LCx PTCA/stent procedure, CABG with internal mammary to the anterior descending, saphenous vein grafting to the diagonal branch of the right coronary artery as well as diagonal branch of the anterior descending in 2004, atrial dysrhythmia status post ablation at [facility] on 10/26/2006 and 06/23/2005, hypertension, and hyperlipidemia. Pt denies chest, arm, jaw, or neck discomfort. His exercise tolerance is stable though minimal. Pt denies symptoms of palpitations, near syncopal or syncopal episodes. Pt denies edema or claudication issues. Pt. denies orthopnea, or PND. He states SOB with exertion over the past year. He states this has not necessarily worsened. He states this feels like prior to CABG but not as intense. He states feeling no energy for last 6-7 months. He states lightheadedness and dizziness when bending forward and returning to standing position. He states muscle aches when lying down. He acknowledges left arm numbness after lying down. 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 Accompanied by: None Is patient in pain?: No Allergies No Known Allergies Allergy (Verified 07/04/18 16:01) Medications Tamsulosin HCl [Flomax] 0.4 mg PO DAILY 03/06/16 [History Confirmed 07/04/18] nitroglycerin 0.4 mg sublingual tablet 0.4 mg SUBLINGUAL Q5M PRN #25 tab 12/30/17 [Rx Confirmed 07/04/18] Multivitamin [Multiple Vitamins] 1 ea PO DAILY 01/10/18 [History Confirmed 07/04/18] metoprolol tartrate 25 mg tablet 25 mg PO BID #180 tab 06/23/18 [Rx Confirmed 07/04/18] ranolazine ER 1,000 mg tablet,extended release,12 hr 1,000 mg PO BID #180 tab 06/23/18 [Rx Confirmed 07/04/18] atorvastatin 40 mg tablet 40 mg PO QHS tab 06/26/18 [History Confirmed 07/04/18] aspirin 81 mg tablet,delayed release 81 mg PO DAILY 07/04/18 [History Confirmed 07/04/18] omeprazole 40 mg capsule,delayed release 40 mg PO DAILY 07/04/18 [History Confirmed 07/04/18] potassium chloride ER 20 mEq tablet,extended release 20 meq PO DAILY 07/04/18 [History Confirmed 07/04/18] Ejection fraction %: 65 to 70 PFSH Medical History Prinzmetal angina (Chronic) HLD (hyperlipidemia) (Chronic) HTN (hypertension) (Chronic) CAD (coronary artery disease) (Chronic) Malignant pericardial effusion (Chronic) Atrial flutter (Chronic) Palpitations (Chronic) Shortness of breath (Chronic) Precordial chest pain (Chronic) Aortocoronary bypass status (Chronic) History of percutaneous transluminal coronary angioplasty (Chronic) Abnormal result of cardiovascular function study, unspecified (Chronic) Pain in limb (Chronic) Dizziness and giddiness (Chronic) Fatigue (Chronic) Mild aortic insufficiency (Chronic) Pain in left shoulder (Chronic) Atherosclerosis of coronary artery bypass graft(s), unspecified, with other forms of angina pectoris (Chronic) Intermittent claudication (Chronic) Surgical History Status post total knee replacement, right (Resolved) History of bilateral knee replacement (Resolved) H/O cardiac radiofrequency ablation (Chronic 10/2006) History of PTCA (Chronic) History of arthroscopy (Chronic 07/2011) History of left heart catheterization (LHC) (Chronic 09/2007) Hx of CABG (Chronic 05/2005) Family History Father CAD (coronary artery disease) CHF (congestive heart failure) Mother Heart disease Brother Diabetes Cancer Hx of CABG CAD (coronary artery disease) Sister COPD (chronic obstructive pulmonary disease) Diabetes Social History Smoking Status: Never smoker alcohol intake: never substance use type: does not use caffeine: No what type of physical activity do you participate in: none seatbelt use: always do you feel safe at home: Yes ROS Const Const: Negative for weakness, body ache, fever(s), chills or fatigue ENT ENT: Positive for dizziness Cardio Chest Pain: No Palpitations: No Edema: None Muscle aches with walking: None Resp Respiratory: Positive for SOB with activity; negative for SOB at rest, SOB orthopnea\SOB lying down or paroxysmal nocturnal dyspnea GI GI: Negative nausea, black,tarry stools, bright, red blood in stools or vomiting blood/hematemesis : Negative for hematuria or frequent nighttime urination/ nocturia Musc Musc: Negative for muscle aches/ myalgia Skin Skin: Negative non-healing lesions or rash Neuro Neuro: Positive for lightheadedness and dizziness; negative for near syncope, syncope, orthostatic symptoms or weakness Endo Endo: Negative for fatigue Allergy Allergy/Immunology: Negative for rash Cardiology Exam Const Appearance: cooperative, no acute distress and well developed Nutritional Appearance: obese and well nourished Orientation: alert, awake and oriented x3 Head Head: normocephalic and atraumatic Mouth: moist mucous membranes Eyes General: appearance normal, both eyes and all related structures Conjunctivae: conjunctivae normal Pupils: PERRL EOM: EOM intact bilaterally Neck Neck: normal visual inspection, no lymphadenopathy and no JVD Carotids: Negative bruit Neck Mass: Negative Neck mass Chest Chest inspection: normal inspection of the chest, symmetric chest movement, midline sternotomy incision and normal respiratory effort Auscultation: Bilateral: Clear to Auscultation Cardio Palpation: normal PMI Rate: regular rate Rhythm: regular rhythm Heart sounds: S1 normal, S2 normal and murmur; negative rub or gallop Murmur: Grade 2/6, mid systolic, soft and LLSB GI GI: normal to inspection, soft, obese and bowel sounds present; negative tender Neuro General: alert, awake, oriented x3, CN's II-XI intact bilaterally and moves all extremities Extremities Pulses: Normal: Right Radial Pulse, Left Radial Pulse, Diminished: Right Posterior Tibial Pulse, Left Posterior Tibial Pulse Lower Extremity Edema: None: Bilateral Psych Psychological: normal affect Assessment AND Plan 1. Dyspnea on exertion R06.09 Plan Patient continues to have shortness of breath on exertion. The exact etiology of this remains unclear. He will undergo repeat echocardiogram to assess for changes. His last echocardiogram in October 2015 showed ejection fraction of 65%, severely enlarged left atrium, moderate right atrial enlargement, mild MR and TR, mild aortic valve stenosis, and RVSP of 45 mmHg. If this test is unchanged further consideration for pulmonary function test will be be made. Orders Orders: 2. Coronary artery disease involving [place] coronary artery of [place] heart without angina pectoris I25.10 Plan His heart catheterization in March 2016 showed preserved ejection fraction of 60% and occluded SVG to diagonal branch and SVG to RCA. His VAZQUEZ to LAD was patent. He denies any chest pain. He will continue with current medications which include anti-anginal and beta-kate. We will continue to monitor. 3. Aortocoronary bypass status Z95.1 Plan He will continue the current treatment plan as outlined above. Orders Orders: 4. History of percutaneous transluminal coronary angioplasty Z98.61 Plan Patient's previous placed stent was patent with mild luminal irregularities noted in March 2016. He will continue with current treatment plans as outlined above. 5. Atrial flutter, unspecified type I48.92 Plan He appears to be maintaining regular rhythm. His heart rate is well-controlled. He will continue with current beta-kate and we will continue to monitor. Orders Orders: 6. Mild aortic insufficiency I35.1 Plan His echocardiogram in October 2015 showed mild aortic valve stenosis. This will be reassessed with an echocardiogram to discern if any component to his shortness of breath. Further recommendation will be made based on results of his echocardiogram. Orders Orders: 7. Essential hypertension I10 Plan Patient's blood pressure is well-controlled. We will continue to monitor this. We will not make any medication regimen changes. Orders Orders: 8. Pure hypercholesterolemia E78.00; E78.0 Plan He will continue with current statin medication. Plan Detail Other Orders Orders: Other Medications Discontinued: amoxicillin-pot clavulanate 875-125 mg Odw369 mg (0.88 x 875-125 mg) PO BIDCM 8 days 15 p date 03/03/18 Discontinued Reason: Pt no tabs 0RF longer taking Additional Comments Thank you for allowing us to participate in the patient's plan of care, if you have any questions please do not hesitate to call. This note was generated using a voice recognition system and there may be incorrect words, spelling, or punctuation that were not noted upon reviewing the office note prior to saving. 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 transplanted heart: [place] heart Associated angina: without angina Aortocoronary bypass status Z95.1 History of percutaneous transluminal coronary angioplasty Z98.61 Atrial flutter, unspecified type I48.92 Atrial flutter type: unspecified Mild aortic insufficiency I35.1 Essential hypertension I10 Hypertension type: essential hypertension Pure hypercholesterolemia E78.00; E78.0 Hyperlipidemia type: pure hypercholesterolemia Coding Level of Care Code Off vis,est,level 4 Diagnoses Dyspnea on exertion R06.09 Coronary artery disease involving [place] coronary artery of [place] heart without angina pectoris I25.10 Coronary Disease-Associated Artery/Lesion type: [place] artery [place] vs. transplanted heart: [place] heart Associated angina: without angina Aortocoronary bypass status Z95.1 History of percutaneous transluminal coronary angioplasty Z98.61 Atrial flutter, unspecified type I48.92 Atrial flutter type: unspecified Mild aortic insufficiency I35.1 Essential hypertension I10 Hypertension type: essential hypertension Pure hypercholesterolemia E78.00; E78.0 Hyperlipidemia type: pure hypercholesterolemia Supplemental Info Supplemental Information He did have a transthoracic echocardiogram on 10/30/[address] [facility]. At that time the left ventricle was normal with an LVEF of 65%, the right ventricle was moderately dilated, there was severe left atrial enlargement and moderate right atrial enlargement, mild MR/TR, mild aortic valve stenosis, and the estimated RV systolic pressure was 45 mmHg compatible with pulmonary hypertension. He had a previous pharmacologic stress nuclear imaging study performed on 11/16/2012. At that point in time an area of previous myocardial injury/infarction involving portions of the basal anteroseptal and basal inferoseptal segments with mild dhara- infarct related myocardial ischemia involving a portion of the mid inferoseptal segment cannot be excluded. The gated LVEF was 64%. His most recent diagnostic cardiac catheterization was performed at [facility] on 03/30/2016. The results are as noted below. 1. Elevated left ventricular end-diastolic pressure compatible with decreased diastolic compliance 2. Left ventricle: A. Normal left ventricular size, wall motion, and systolic function B. Estimated LVEF is 60% 3. Left main coronary artery: A. Angiographically normal 4. Left anterior descending coronary artery: A. 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 Diagonal branch #1: A. Angiographically normal 6. Diagonal branch #2: A. Proximally subtotally occluded followed by mid occlusion 7. Left circumflex coronary artery: A. Large codominant to dominant vessel B. Proximal to mid stent segment patent with minimal luminal irregularities C. Distal vessel: Terminating as small caliber vessels with subtotal occlusions 8. Right coronary artery: A. Previously documented as ostially occluded and not reevaluated during this evaluation 9. VAZQUEZ to the LAD: A. Patent with no angiographically significant disease 10. SVG to the diagonal branch: A. Previously documented as occluded and not reevaluated during this evaluation 11. SVG to the RCA: A. Previously documented occluded and not reevaluated during this evaluation 12. Aortic root: A. Possible dilatation 13. Mitral valve: A. Mild mitral valve regurgitation He had a previous PCI procedure performed at [facility] on 10/19/2007. At that point time he had an LCx PTCA/stent procedure. His previous CABG was performed at [facility] in 2004. The summary is as noted below. OPERATION: Three-vessel coronary artery bypass grafting utilizing internal mammary to the anterior descending, saphenous vein grafting to the diagonal branch of the right coronary artery as well as diagonal branch of the anterior descending, with second cardiopulmonary bypass utilizing right femoral artery and right atrium with core cooling and repair of ascending aortic dissection utilizing cold circulatory arrest with 28 mm tube graft to the ascending aorta and reimplantation of saphenous vein grafts to the right coronary artery and diagonal branch to the tube graft. His most recent electrophysiology study was performed at [facility] on 10/26/2006. At that time he had a complex but successful cavo-tricuspid isthmus-dependent atrial flutter ablation requiring multiple RV lesions along the isthmus with bidirectional block confirmed. His previous like physiology study was performed at [facility] on 06/23/2005. At that time he had atrial flutter mapping confirming a type I mechanism with catheter ablation with inability to eliminate caval tricuspid isthmus conduction due to grossly abnormal anatomy in the isthmus. He had a chest CT scan performed at [facility] on 10/29/2015. Per the radiology report there were no acute abnormalities noted. There was no evidence of thromboembolic disease, there was no evidence of thoracic aortic dissection. Labs LDL Cholesterol 80 mg/dL (0-130) 05/10/16 HDL Cholesterol 68 mg/dL (40-) 05/10/16 Triglycerides 112 mg/dL (-199) 05/10/16 VLDL Cholesterol 22 mg/dL (5-40) 05/10/16 Diagnostics Venous Doppler Study 02/16/18 Electrocardiogram 03/06/16 Cardiac Catheterization 03/30/16 Chest X-Ray 03/23/16 Pulmonary Pulmonary Function Test 12/26/14 07/04/18 1650 <Electronically signed by Paulino RAHMAN> Date Paulino [facility] WELDING MACHINE OPERATOR PLASMA ARC-C Cosigner Signature: Date (if applicable) CC: Darshana Gibson MD ABDOMEN/PELVIS WITH Observed: 05/08/2018 Status: F Source: [place] CONTRAST 4:34 PM [facility] REPOSITORY [facility] Imaging Services [address] [place] [address] Abdomen/Pelvis WITH Contrast MR#: [id number] Acct: [id number] Name: ISA MILES Rep #: [id number] : 1935 M 82 From: Gianfranco Lee MD PCP: Darshana Gibson MD, Chi Status: REG CLI Study: Abdomen/Pelvis WITH Contrast Date of Exam: 05/08/18 Exam# [id number] Ordering Dr: Darshana Gibson MD STUDY: CT ABDOMEN AND PELVIS WITH CONTRAST REASON FOR EXAM: Male, 82 years old. Abdominal pain. Nausea and vomiting. Patient has known hernias. RADIATION DOSAGE (If Supplied By Facility): CTDIvol = ( 19.81 ) mGy, DLP = ( 1169.50 ) mGycm TECHNIQUE: Transaxial images were obtained from the dome of the diaphragm to the symphysis pubis with oral contrast. 100CC ml of Isovue 300 contrast was administered. Sagittal and coronal images were reconstructed. Individualized dose optimization techniques were used for this CT. COMPARISON: 03/22/2018. FINDINGS: The visualized lung bases are unremarkable. The visualized portions of the heart are within normal limits. Normal liver. Normal gallbladder and extrahepatic biliary system. Normal spleen. Normal pancreas. Normal bilateral adrenal glands. No acute abnormalities of the kidneys. No significant changes. On the right, there is still a 3 mm nonobstructing renal stone. Left kidney still has a 4.8 cm mid renal cyst. No hydronephrosis on either side. Normal visualized stomach. Normal small intestine. There are multiple colonic diverticula consistent with diverticulosis. The appendix is visualized and appears normal. There is diffuse atherosclerotic calcification of the abdominal aorta with elongation and tortuosity, but without a demonstrated aneurysm. Normal inferior vena cava. Normal retroperitoneum. Normal urinary bladder. There is enlargement of the prostate gland. There has been previous repair of left inguinal hernia. No current hernias are seen. There are diffuse degenerative changes of the visualized lumbar spine. CT/Abdomen/Pelvis WITH Contrast IMPRESSION: No definite acute abnormalities are seen. Electronically Signed: Gianfranco Lee MD at 17:10 EST , Service support , CC: Darshana Gibson MD Human Intelligence: Signed CBC W/DIFF, AUTOMATED Collected: 05/08/2018 Status: F Source: [place] 1:44 PM [facility] REPOSITORY TYPE CODE TESTS RESULT OUT OF RANGE REFERENCE UNITS LAB L100.1000 4.4-11.0 K/mm3 Normal WBC 6.3 LAB L100.1200 4.6-6.2 M/mm3 Low RBC 4.23 LAB L100.1300 13.0-16.5 g/dl Normal HGB 14.5 LAB L100.1400 40-54 % Normal HCT 45.1 LAB L100.1500 80-94 fL High MCV 106.6 LAB L100.1600 27.0-32.0 pg High MCH 34.3 LAB L100.1700 32-36 g/gl Normal MCHC 32.2 LAB L100.1810 11.6-14.6 % High RDW CV 15.1 LAB L100.1820 35.1-43.9 fl High RDW SD 58.7 LAB L100.1900 150-450 K/mm3 Normal PLT 170 LAB L100.2000 6.2-12.0 fl Normal MPV 11.8 LAB L100.2100 47-70 % Normal NEUT% 69.7 LAB L100.2200 19-41 % Low LY% 7.6 LAB L100.2300 0-10 % High MONO% 18.5 LAB L100.2400 0-5 % Normal EO% 3.6 LAB L100.2500 0-1 % Normal BASO% 0.3 LAB L100.2550 0.0-0.9 % Normal IM GRAN % 0.300 Result Comment: IG% - Immature Granulocytes (promyelocytes, myelocytes and metamyelocytes) > 1% indicates that a LEFT SHIFT is Present. LAB L100.2620 2.0-7.7 X10 3/uL Normal Absolute Neut 4.4 LAB L100.2720 0.83-4.51 X10 3/ul Low Absolute Lymph 0.48 Performed By: #### L100.0100 #### [facility] [address] [place], [address] COMPREHENSIVE METABOLIC Collected: 05/08/2018 Status: F Source: [facility] 1:44 PM [facility] REPOSITORY TYPE CODE TESTS RESULT OUT OF RANGE REFERENCE UNITS LAB L501.0100 74-106 mg/dL Normal GLU 101 Result Comment: Fasting Glucose result from 100 to 125 mg/dL suggests IMPAIRED HOMEOSTASIS per A.D.A. criteria. Please note revised GLUCOSE reference range effective 2017. LAB L501.1000 7-18 mg/dL Normal BUN 15 LAB L501.1100 0.70-1.30 mg/dL Normal CREAT,SERUM 1.27 Result Comment: The validity of the calculated GFR AND GFRAA in patients over 70 years has not been determined. Clinical correlation is essential. LAB L501.1110 >60 mL/min Low EST GFR 58 Result Comment: Non- GFR Calc LAB L501.1115 >60 mL/min Normal EST GFR - AA 70 Result Comment: GFR Calc LAB L501.1300 10-20 RATIO Normal BUN/CRE 11.8 LAB L501.1500 6.4-8.2 g/dL T Normal PROT 7.3 LAB L501.1800 3.2-5.0 g/dL Normal ALB 3.7 LAB L501.1950 2.2-4.2 g/dL Normal GLOB 3.6 LAB L501.2000 0.9-2.4 RATIO Normal A/G 1.0 LAB L501.2200 8.5-10.1 mg/dL CA Normal 9.2 LAB L501.4100 15-37 U/L Normal AST 22 LAB L501.4305 45-117 U/L Normal ALK P 83 LAB L501.4405 16-61 U/L Normal ALT 21 LAB L501.4600 0.20-1.00 mg/dL T Normal BILI 1.00 LAB L501.5300 136-145 mmol/L NA Normal 143 LAB L501.5600 3.5-5.1 mmol/L K Normal 4.1 LAB L501.5900 98-107 mmol/L CL Normal 105 LAB L501.6100 21.0-32.0 mmol/L Normal CO2 28.0 LAB L501.6200 5-15 Normal GAP 10 Performed By: #### L500.4050 #### [facility] [address] [place], [address] Observed: 05/08/2018 Status: F Source: [place] CULTURE, URINE 1:44 PM [facility] REPOSITORY Urine Culture Culture exhibits no growth. Performed By: #### M100.0650 #### [facility] [address] [place], [address] ABDOMEN/PELVIS WITH Observed: 03/22/2018 Status: F Source: [place] CONTR[place] 4:36 PM [facility] REPOSITORY [facility] Imaging Services [address] [place] [address] Abdomen/Pelvis WITH Contrast MR#: [id number] Acct: [id number] Name: ISA MILES Rep #: [id number] : 1935 M 82 From: Cristel Morillo MD PCP: Darshana Gibson MD, Chi Status: REG CLI Study: Abdomen/Pelvis WITH Contrast Date of Exam: 03/22/18 Exam# [id number] Ordering Dr: Darshana Gibson MD STUDY: CT ABDOMEN AND PELVIS WITH CONTRAST REASON FOR EXAM: Male, 82 years old. Abdominal pain. Prior history of appendectomy hernia repair and CABG. RADIATION DOSAGE (If Supplied By Facility): CTDIvol = ( 19.97 ) mGy, DLP = ( 1255.76 ) mGycm TECHNIQUE: Transaxial images were obtained from the dome of the diaphragm to the symphysis pubis with oral contrast. 100 ml of Isovue 300 contrast was administered. Sagittal and coronal images were reconstructed. Individualized dose optimization techniques were used for this CT. COMPARISON: None. FINDINGS: The visualized lung bases are unremarkable. Normal liver. Normal gallbladder and extrahepatic biliary system. Normal spleen. Normal pancreas. Normal bilateral adrenal glands. Subcentimeter cysts of the right kidney. 2 mm nonobstructing stone in the midpole of the right kidney without hydronephrosis or ureteral stones. Normal size of the left kidney. 4.2 cm simple cyst of the left kidney and additional subcentimeter cysts. Negative for hydronephrosis, renal or ureteral stones. Normal visualized stomach. Normal small intestine. Diverticulosis of the left and distal colon without evidence of diverticulitis. There is non-visualization of the appendix. There is diffuse atherosclerotic calcification of the abdominal aorta, without a demonstrated aneurysm. Normal inferior vena cava. Normal retroperitoneum. Mildly distended urinary bladder. Moderate elevation of the bladder base by prostate enlargement. Status post hernia repair without recurrent hernia. There are diffuse degenerative changes of the visualized lumbar spine with demineralized osseous structures. CT/Abdomen/Pelvis WITH Contrast IMPRESSION: No acute bowel related findings. Negative for evidence of bowel obstruction, perforation or inflammatory bowel changes. Diverticulosis of the left and distal colon without evidence of acute diverticulitis. 2 mm nonobstructing stone of the mid pole of the right kidney without hydronephrosis or ureteral stones. Simple renal cysts bilaterally. Moderate bladder distention and elevation of the bladder base by prostate enlargement. Status post umbilical and left pelvic wall hernia repair without evidence of recurrent hernia. Electronically Signed: Cristel Morillo MD at 19:31 EDT , Service support , CC: Darshana Gibson MD Human Intelligence: Signed Observed: 03/22/2018 Status: F Source: [place] CULTURE, URINE 4:36 PM [facility] REPOSITORY Urine Culture [place] Count = 1600 cfu/mL Below infection level. ORGANISM 1: Proteus sp. [place] Count 1000-10,000 Performed By: #### M100.0650 #### [facility] [address] [place], [place], [address] CBC W/DIFF, AUTOMATED Collected: 03/22/2018 Status: F Source: [place] 4:35 PM [facility] REPOSITORY TYPE CODE TESTS RESULT OUT OF RANGE REFERENCE UNITS LAB L100.1000 4.4-11.0 K/mm3 Normal WBC 6.5 LAB L100.1200 4.6-6.2 M/mm3 Low RBC 3.82 LAB L100.1300 13.0-16.5 g/dl Normal HGB 13.2 LAB L100.1400 40-54 % Normal HCT 40.9 LAB L100.1500 80-94 fL High MCV 107.1 LAB L100.1600 27.0-32.0 pg High MCH 34.6 LAB L100.1700 32-36 g/gl Normal MCHC 32.3 LAB L100.1810 11.6-14.6 % High RDW CV 14.8 LAB L100.1820 35.1-43.9 fl High RDW SD 58.0 LAB L100.1900 150-450 K/mm3 Normal PLT 153 LAB L100.2000 6.2-12.0 fl Normal MPV 11.4 LAB L100.2100 47-70 % High NEUT% 70.8 LAB L100.2200 19-41 % Low LY% 10.0 LAB L100.2300 0-10 % High MONO% 14.7 LAB L100.2400 0-5 % Normal EO% 4.0 LAB L100.2500 0-1 % Normal BASO% 0.2 LAB L100.2550 0.0-0.9 % Normal IM GRAN % 0.300 Result Comment: IG% - Immature Granulocytes (promyelocytes, myelocytes and metamyelocytes) > 1% indicates that a LEFT SHIFT is Present. LAB L100.2620 2.0-7.7 X10 3/uL Normal Absolute Neut 4.6 LAB L100.2720 0.83-4.51 X10 3/ul Low Absolute Lymph 0.65 Performed By: #### L100.0100 #### [facility] [address] [place], [address] COMPREHENSIVE METABOLIC Collected: 03/22/2018 Status: F Source: [place] PROFIL 4:35 PM [facility] REPOSITORY TYPE CODE TESTS RESULT OUT OF RANGE REFERENCE UNITS LAB L501.0100 74-106 mg/dL Normal GLU 93 Result Comment: Please note revised GLUCOSE reference range effective 2017. LAB L501.1000 7-18 mg/dL Normal BUN 12 LAB L501.1100 0.70-1.30 mg/dL Normal CREAT,SERUM 1.13 Result Comment: The validity of the calculated GFR AND GFRAA in patients over 70 years has not been determined. Clinical correlation is essential. LAB L501.1110 >60 mL/min Normal EST GFR 66 Result Comment: Non- GFR Calc LAB L501.1115 >60 mL/min Normal EST GFR - AA 80 Result Comment: GFR Calc LAB L501.1300 10-20 RATIO Normal BUN/CRE 10.6 LAB L501.1500 6.4-8.2 g/dL T Normal PROT 6.9 LAB L501.1800 3.2-5.0 g/dL Normal ALB 3.6 LAB L501.1950 2.2-4.2 g/dL Normal GLOB 3.3 LAB L501.2000 0.9-2.4 RATIO Normal A/G 1.1 LAB L501.2200 8.5-10.1 mg/dL CA Normal 8.9 LAB L501.4100 15-37 U/L Normal AST 21 LAB L501.4305 45-117 U/L Normal ALK P 83 LAB L501.4405 16-61 U/L Normal ALT 23 LAB L501.4600 0.20-1.00 mg/dL T Normal BILI 0.70 LAB L501.5300 136-145 mmol/L NA Normal 140 LAB L501.5600 3.5-5.1 mmol/L K Normal 3.8 LAB L501.5900 98-107 mmol/L CL Normal 106 LAB L501.6100 21.0-32.0 mmol/L Normal CO2 30.0 LAB L501.6200 5-15 Low GAP 4 Performed By: #### L500.4050 #### [facility] [address] [place], [place], [address] OPERATIVE REPORT Observed: 03/05/2018 Status: F Source: [place] 9:44 AM [facility] REPOSITORY [facility] Medical Records Department [address] [place] [address] Operative Report 02/13/18 1411 MR#: [id number] Acct: [id number] Name: ISA MILES Rep #: [id number] : 1935 82 From: Peter Smith DO PCP: Maxim HERNANDEZ,Darshana Chi Status: DIS IN Y Location: [address] Operative Report Date of Procedure: 02/06/18 Primary Surgeon/Physician: Peter Smith grinder set up operator external: Chapincito Ferguson PA-C grinder set up operator external: Pre-Operative Diagnosis: Osteoarthritis right knee Post-Operative Diagnosis: same Surgery/Procedure Performed: Right TKR using [place] size 6 PS femur, size 6 tibia, 11 mm polyethylene spacer and 38 mm patella (all components cemented) Estimated Blood Loss: 25cc Specimen's Removed: bone Type of Anesthesia: spinal ASA Class: 3 Implants: [ ] Indications: Patient has severe end-stage osteoarthritis diagnosed via x-rays in the knee. They have failed all forms of conservative measures including activity modification, injections, anti-inflammatories, use of assistive device. The patient has pain that affects on a daily basis and prevents him from doing things that they enjoyed. They have elected to undergo the above procedure. The risks of the procedure were discussed at length and their questions were answered. Procedure Description: The patient was greeted in the preoperative area. The [ right] knee was then marked with a surgical marker. Patient was then taken to or [address]. They were administered a dose of antibiotics as well as tranexamic acid. Once adequate anesthesia was obtained and airway was secured to placed in supine position on the operating room table. A well-padded tourniquet was placed on the affected extremity. Leg was then prepped and draped in the usual sterile fashion from the knee down. Ioban was used on the skin. Surgical timeout was then performed and confirmed with all present. Six-inch Esmarch was used to examine the limb and tourniquet was then inflated to 250 mmHg. A longitudinal incision was then planned and carried out in the anterior aspect of the knee. The dissection was then carried the length of the incision the extensor mechanism was identified. Standard medial parapatellar arthrotomy was then performed revealing severe eburnation of bone and periarticular osteophytes. There is complete loss of cartilage especially in the medial compartment with varus alignment. Anterior fat pad was removed for visualization purposes and the anterior medial aspect of the tibia was skeletonized for exposure to the knee. The knee was then flexed the patella was inverted. Opening reamer was then used in the femur approximately 1 cm anterior to the attachment of the PCL. The intramedullary valgus wand was then placed in the femur set at 5 of valgus. The distal femoral cutting jig was then applied to the femur with anticipated resection of approximately 8 mm. This was then made with a oscillating saw. The sizing guide was then placed referencing off the posterior condyles and also reference off the epicondylar axis. This was measured and the appropriate size 4-in-1 cutting jig was then applied to the distal femur. Anterior posterior cuts were made followed by the anterior and posterior chamfer cuts. These bony pieces and fragments were removed and placed on the back table. Posterior retractor was then utilized and the tibia was subluxed anteriorly. Intramedullary tibial alignment jig was then applied to the tibia referencing off the medial one third of the tibial tubercle the anterior tibial spine the middle aspect of the tibiotalar joint. Also reference off patient's [place] slope. The tibial cutting jig was then pinned with anticipated resection of 2 mm off of the deficient medial tibial condyle. This cut was made with the oscillating saw. Once this was complete a laminar mayonnaise mixer was utilized in both medial lateral meniscus were removed and a posterior capsular osteophytes were also removed. Posterior capsule release was performed in the posterior capsule as well as the geniculate arteries are treated with the aqua Keyla. The tibia was incised and the appropriate sized tibial tray was then pinned. The femoral box cutting jig was then applied to the femur and the box was prepared removing a portion of the intercondylar notch. The femoral trial was then placed and the knee was trialed. Full flexion-extension were easily achieved. The knee seemed to balance quite nicely. Any remaining osteophytes were removed at this time. Once this was complete the patella was everted and the Myra patella reaming device was then utilized the patella was then placed in the appropriate jig and reamer was then used to remove approximately 9 mm of the undersurface of the patella. A soft tissue remaining was in the way was removed and patella trial was then placed listed maintain excellent tracking using the no thumbs technique. The tibial tray at this point was punched to accommodate the fins of the final implant. At this point cement was mixed on the back table. The trial components were removed and the knee was copiously irrigated. Did use a cocktail of injection for postoperative pain control. The final components were then cemented in the standard fashion and excess cement was removed with cement removal tools and patellar clamp is placed in the patella. As the cement had cured in full extension tourniquet was deflated and hemostasis was perfect with Bovie cautery as well as the aqua Manus. Needle is once again trialed with different size polyethylenes to ensure the full range of motion was achieved as well as excellent balancing ligamentously was achieved. At this point the knee was copiously irrigated. Final implant was then inserted locking mechanism was engaged and confirmed to be locked. The arthrotomy was then closed with #1 Vicryl aggravate type fashion interrupted. Subcutaneous tissue was closed with 0 Vicryl and surgical hao were placed in the skin. A occlusive silver impregnated dressing was then applied followed by well-padded sterile dressing secured with an Carlitos wrap. The patient was taken to the PACU in stable condition. No complications known at this time. Postoperatively we will maintain standard total knee postoperative protocol. The use of the physician captain assistant was integral during this procedure. They assisted with positioning placement of the tourniquet retracting closure and placement of the dressing. The procedure would have been much more difficult without their expertise and assistance 03/05/1844 <Electronically signed by Peter Smith DO> Date Peter Smith DO CC: Peter Smith DO; Darshana Gibson MD Signed DISCHARGE SUMMARY Observed: 03/02/2018 Status: F Source: [place] 5:43 PM [facility] REPOSITORY [facility] Medical Records Department [address] [place] [address] Discharge Summary 02/24/18 0900 MR#: [id number] Acct: [id number] Name: ISA MILES Rep #: [id number] : 1935 82 From: Radhika Cordon NP-C PCP: Darshana Gibson MD, Chi Status: DIS IN Y Location: [id number] ADDENDUM by Alexys Merida MD on 03/02/18 at 1743 Please see WELDING MACHINE OPERATOR PLASMA ARC Radhika Cordon's discharge note as below for further complete details. I have discussed the management plan for the patient in detail with BLADIMIR Cordon and please see the plan as noted below. Patient tolerated therapies well. fall precautions. Follow up with Dr. Smith and PCP as outpatient. 03/02/181742 <Electronically signed by Rolando Merida MD> Date Rolando Merida MD cc: BLADIMIR Cordon; Alexys Merida MD; Darshana Gibson MD * Signed Rehab Discharge Summary DATE OF ADMISSION: 02/10/18 DATE OF DISCHARGE: 02/24/18 - Rehab Diagnosis Right Knee Arthroplasty Discharge Diet: No Restrictions Discharge Activity: May Not Drive - untill cleared by your Orthopedic surgeon, May Shower, Use Walker, - - Do not soak in a tub Bath Weight Bearing Status: Weight bearing as tolerated Call your doctor if your incision/area has: Increased Pain/ Swelling, Increased Redness, Foul Smelling Discharge, Swelling at the incision site Call your doctor if you observe: Fever of 101 or Higher, Coldness, Increased Pain, Numbness or Tingling, Change in Color, Inability to urinate, Inability to have a bowel movement, Using more than one pad per hour, Shortness of breath, Dizziness, Fainting spells, Swelling in the ankles, Chest pain, Prolonged hiccoughing, Increased palpitations (irregular heartbeat), Calf discomfort, Uncontrolled pain Home Medications: Medications to take at Discharge Tamsulosin HCl [Flomax] 0.4 mg PO DAILY 03/06/16 metoprolol tartrate 25 mg tablet 25 mg PO BID tab 06/23/17 ranolazine ER 1,000 mg tablet,extended release,12 hr 1,000 mg PO BID tab 06/23/17 nitroglycerin 0.4 mg sublingual tablet 0.4 mg SUBLINGUAL Q5M PRN #25 tab 12/30/17 Multivitamin [Multiple Vitamins] 1 each PO DAILY 01/10/18 famotidine 40 mg tablet 40 mg PO QDAY 01/25/18 Acetaminophen [Tylenol] 650 mg PO Q8 PRN 02/10/18 Aspirin 325 mg PO BIDCM 02/10/18 Amox/Clavulanate Tablet [Augmentin Tablet] 875 mg PO BIDCM 8 Days #15 tab 02/24/18 Following Prescrptions Were Given to Patient: Amox/Clavulanate Tablet [Augmentin Tablet] 875 mg PO BIDCM 8 Days #15 tab Primary Care Physician: Darshana Gibson Chi, MD [Primary Care Provider] - Please Follow Up With: Dr. Gibson-PCP Please Follow Up With: [facility] - Outpatient Physical Therapy Disposition: Home - with outpatient Physical therapy Minutes spent on discharge:: 40 Patient Condition:: Good Rehab Course The patient is a 82 year old CM with PMH HTN, HLD, CAD s/p CABG, S/P stents, morbid obesity, H/O Atrial flutter s/p ablation not on AC per Cardiology, BPH, had recent right total knee replacement on 02/06/[address] Smith now admitted to [facility] with debility s/p right TKR, for > 3 hrs therapy daily, with a goal of returning back home at or near his prior level of functional independence. Patient had Right TKR done by Dr. Schmidt on 02/06/18, was discharged home on 02/08/18, had gone for therapy at Dr. Smith's office who referred him to inpatient rehab since patient was complaining of right leg stiffness and right knee pain. Patient lives alone, denies any frequent falls, had a mechanical fall about a month ago per patient when he missed his step on a curb, fell and had rib fractures on the right side, bu denies using cane or walker to ambulate, does not need any assistance for his ADLs, lives in a ranch style house, has steps to get to the basement and also has 2 steps to get into the house from the backyard, has a steep ramp in the front. At present patient denies any AVALOS, visual disturbances, focal motor weakness or sensory loss. He continues to have right knee pain/stiffness and swelling the legs. With Physical therapy, he is able to get in and out of bed, go from a sitting to a standing position at stand by assist. He is able to go up and down 10 steps using two hand rail at contact guard. He has walked about 105 feet using a walker. With Occupational therapy, he is set up for his personal grooming, he is able to do his upper body and toileting at supervision to standby assist. With his lower body he requires assistance at standby with bathing. With nursing, his incision on his right knee looks good no swelling is noted, the redness has improved since starting on Augmentin, he will follow up with his Orthopedic surgeon Dr Smith next week on March 01, stop date for his Augmentin is March 03 2018, He Will be discharge home with outpatient Physical therapy. Meaningful Use Info Meaningful Use Diagnoses (Choose all that apply): None applicable 02/24/18 1805 <Electronically signed by Radhika Cordon WELDING MACHINE OPERATOR PLASMA ARC-C> Date Radhika Cordon WELDING MACHINE OPERATOR PLASMA ARC-C 03/02/18 1740<Electronically signed by Rolando Merida MD> Cosigner Signature (if applicable): Date Rolando Merida MD CC: BLADIMIR Cordon; Alexys Merida MD; Darshana Gibson MD Signed BASIC METABOLIC Collected: 03/02/2018 Status: F Source: [place] PROFILE (BMP) 11:30 AM [facility] REPOSITORY TYPE CODE TESTS RESULT OUT OF RANGE REFERENCE UNITS LAB L501.0100 74-106 mg/dL Normal GLU 104 Result Comment: Fasting Glucose result from 100 to 125 mg/dL suggests IMPAIRED HOMEOSTASIS per A.D.A. criteria. Please note revised GLUCOSE reference range effective 2017. LAB L501.1000 7-18 mg/dL Normal BUN 13 LAB L501.1100 0.70-1.30 mg/dL Normal CREAT,SERUM 1.12 Result Comment: The validity of the calculated GFR AND GFRAA in patients over 70 years has not been determined. Clinical correlation is essential. LAB L501.1110 >60 mL/min Normal EST GFR 67 Result Comment: Non- GFR Calc LAB L501.1115 >60 mL/min Normal EST GFR - AA 81 Result Comment: GFR Calc LAB L501.1300 10-20 RATIO Normal BUN/CRE 11.6 LAB L501.2200 8.5-10.1 mg/dL CA Normal 9.1 LAB L501.5300 136-145 mmol/L NA Normal 142 LAB L501.5600 3.5-5.1 mmol/L K Normal 4.1 LAB L501.5900 98-107 mmol/L CL Normal 105 LAB L501.6100 21.0-32.0 mmol/L Normal CO2 29.0 LAB L501.6200 5-15 Normal GAP 8 Performed By: #### L500.2500 #### [facility] [address] [place], [place] [address], [address] CBC W/DIFF, AUTOMATED Collected: 03/02/2018 Status: F Source: [place] 11:30 AM [facility] REPOSITORY TYPE CODE TESTS RESULT OUT OF RANGE REFERENCE UNITS LAB L100.1000 4.4-11.0 K/mm3 Normal WBC 5.2 LAB L100.1200 4.6-6.2 M/mm3 Low RBC 3.61 LAB L100.1300 13.0-16.5 g/dl Low HGB 12.8 LAB L100.1400 40-54 % Low HCT 39.1 LAB L100.1500 80-94 fL High MCV 108.3 LAB L100.1600 27.0-32.0 pg High MCH 35.5 LAB L100.1700 32-36 g/gl Normal MCHC 32.7 LAB L100.1810 11.6-14.6 % High RDW CV 15.0 LAB L100.1820 35.1-43.9 fl High RDW SD 58.5 LAB L100.1900 150-450 K/mm3 Normal PLT 214 LAB L100.2000 6.2-12.0 fl Normal MPV 11.6 LAB L100.2100 47-70 % Normal NEUT% 65.7 LAB L100.2200 19-41 % Low LY% 9.7 LAB L100.2300 0-10 % High MONO% 19.9 LAB L100.2400 0-5 % Normal EO% 3.5 LAB L100.2500 0-1 % Normal BASO% 0.6 LAB L100.2550 0.0-0.9 % Normal IM GRAN % 0.600 Result Comment: IG% - Immature Granulocytes (promyelocytes, myelocytes and metamyelocytes) > 1% indicates that a LEFT SHIFT is Present. LAB L100.2620 2.0-7.7 X10 3/uL Normal Absolute Neut 3.4 LAB L100.2720 0.83-4.51 X10 3/ul Low Absolute Lymph 0.50 LAB L100.4500 Normal SMEAR COMMENT SCANNED Performed By: #### L100.0100 #### [facility] [address] [facility], [address] DISCHARGE INSTRUCTION Observed: 02/24/2018 Status: F Source: [place] 1:02 PM [facility] REPOSITORY [facility] Medical Records Department [address] [place] [address] Instructions for Home/Discharge Instructions 02/24/18 0857 MR#: [id number] Acct: [id number] Name: ISA MILES Huma Rep #: [id number] : 1935 82 From: Radhika Cordon WELDING MACHINE OPERATOR PLASMA ARC-C PCP: Maxim HERNANDEZ,Darshana Funez Status: ADM IN - Discharge Diagnoses Current Active Problems: Current Active and Chronic Problems (Last Reviewed 12/30/17 @ 11:41 by Leeanna Calvo) Status post total knee replacement, right (Acute) Reason(s) for Visit for Discharge Instructions: Right Knee Arthroplasty You will use the following diet at home:: Regular Your food should be the consistency of: Regular Your liquids should be the consistency of: Regular/Thin Discharge Activity: May Not Drive - untill cleared by your Orthopedic surgeon, May Shower, Use Walker, - - Do not soak in a tub Bath Weight Bearing Status: Weight bearing as tolerated Call your doctor if your incision/area has: Increased Pain/ Swelling, Increased Redness, Foul Smelling Discharge, Swelling at the incision site Call your doctor if you observe: Fever of 101 or Higher, Coldness, Increased Pain, Numbness or Tingling, Change in Color, Inability to urinate, Inability to have a bowel movement, Using more than one pad per hour, Shortness of breath, Dizziness, Fainting spells, Swelling in the ankles, Chest pain, Prolonged hiccoughing, Increased palpitations (irregular heartbeat), Calf discomfort, Uncontrolled pain Allergies/Adverse Reactions: Allergies No Known Allergies Allergy (Verified 02/11/18 18:41) Medications to take at Discharge Tamsulosin HCl [Flomax] 0.4 mg PO DAILY 03/06/16 metoprolol tartrate 25 mg tablet 25 mg PO BID tab 06/23/17 ranolazine ER 1,000 mg tablet,extended release,12 hr 1,000 mg PO BID tab 06/23/17 nitroglycerin 0.4 mg sublingual tablet 0.4 mg SUBLINGUAL Q5M PRN #25 tab 12/30/17 Multivitamin [Multiple Vitamins] 1 each PO DAILY 01/10/18 famotidine 40 mg tablet 40 mg PO QDAY 01/25/18 Acetaminophen [Tylenol] 650 mg PO Q8 PRN 02/10/18 Aspirin 325 mg PO BIDCM 02/10/18 Amox/Clavulanate Tablet [Augmentin Tablet] 875 mg PO BIDCM 8 Days #15 tab 02/24/18 The following prescriptions were given: Amox/Clavulanate Tablet [Augmentin Tablet] 875 mg PO BIDCM 8 Days #15 tab Primary Care Physician: Darshana Gibson Chi, MD [Primary Care Provider] - Test Results: Test results from this visit will be discussed in further detail at your follow-up appointment, if applicable. Please Follow Up With: Dr. Gibson-PCP Please Follow Up With: [facility] - Outpatient Physical Therapy Proposed Discharge Date: 02/24/18 02/24/18 1302 <Electronically signed by Radhika RAHMAN> Date Radhika RAHMAN CC: Conner Pritchard MD; Darshana Gibson MD HISTORY AND PHYSICAL Observed: 02/19/2018 Status: F Source: [place] EXAM 3:57 PM [facility] REPOSITORY [facility] Medical Records Department [address] [place] [address] History and Physical 02/10/18 1317 MR#: [id number] Acct: [id number] Name: ISA MILES Rep #: [id number] : 1935 82 From: Rolando Merida MD PCP: Maxim HERNANDEZ,Darshana Funez Status: ADM IN Y Location: [place] [address] Problem List (1) Prinzmetal angina Status: Chronic (2) HLD (hyperlipidemia) Status: Chronic Qualifiers: (3) HTN (hypertension) Status: Chronic Qualifiers: (4) CAD (coronary artery disease) Status: Chronic Qualifiers: (5) Atrial flutter Status: Chronic (6) Atherosclerosis of coronary artery bypass graft(s), unspecified, with other forms of angina pectoris Status: Chronic History of Present Illness Date of Admission: 02/10/18 Chief Complaint: Debility post Right Total Knee replacement The patient is a 82 year old CM with PMH HTN, HLD, CAD s/p CABG, S/P stents, morbid obesity, H/O Atrial flutter s/p ablation not on AC per Cardiology, BPH, had recent right total knee replacement on 02/06/[address] Schmidt now admitted to [facility] with debility s/p right TKR, for > 3 hrs therapy daily, with a goal of returning back home at or near his prior level of functional independence. Patient had Right TKR done by Dr. Schmidt on 02/06/18, was discharged home on 02/08/18, had gone for therapy at Dr. Schmidt's office who referred him to inpatient rehab since patient was complaining of right leg stiffness and right knee pain. Patient lives alone, denies any frequent falls, had a mechanical fall about a month ago per patient when he missed his step on a curb, fell and had rib fractures on the right side, bu denies using cane or walker to ambulate, does not need any assistance for his ADLs, lives in a ranch style house, has steps to get to the basement and also has 2 steps to get into the house from the backyard, has a steep ramp in the front. At present patient denies any AVALOS, visual disturbances, focal motor weakness or sensory loss. He continues to have right knee pain/stiffness and swelling the legs. [] Past Medical History Past Medical History (Chronic Problems): Chronic Problems (Last Reviewed 12/30/17 @ 11:41 by Leeanna Calvo) Prinzmetal angina (Chronic) HLD (hyperlipidemia) (Chronic) HTN (hypertension) (Chronic) CAD (coronary artery disease) (Chronic) Malignant pericardial effusion (Chronic) Atrial flutter (Chronic) Palpitations (Chronic) Shortness of breath (Chronic) Precordial chest pain (Chronic) Aortocoronary bypass status (Chronic) History of percutaneous transluminal coronary angioplasty (Chronic) Abnormal result of cardiovascular function study, unspecified (Chronic) Pain in limb (Chronic) Dizziness and giddiness (Chronic) Fatigue (Chronic) Mild aortic insufficiency (Chronic) Pain in left shoulder (Chronic) Atherosclerosis of coronary artery bypass graft(s), unspecified, with other forms of angina pectoris (Chronic) Intermittent claudication (Chronic) Medical History: Medical History (Last Reviewed 12/30/17 @ 11:41 by Leeanna Calvo) Prinzmetal angina (Chronic) I20.1 HLD (hyperlipidemia) (Chronic) E78.5 HTN (hypertension) (Chronic) I10 CAD (coronary artery disease) (Chronic) I25.10 Malignant pericardial effusion (Chronic) C80.1, I31.8 Atrial flutter (Chronic) I48.92 Palpitations (Chronic) R00.2 Shortness of breath (Chronic) R06.02 Precordial chest pain (Chronic) R07.2 Aortocoronary bypass status (Chronic) Z95.1 History of percutaneous transluminal coronary angioplasty (Chronic) Z98.61 Abnormal result of cardiovascular function study, unspecified (Chronic) R94.30 Pain in limb (Chronic) M79.609 Dizziness and giddiness (Chronic) R42 Fatigue (Chronic) R53.83 Mild aortic insufficiency (Chronic) I35.1 Pain in left shoulder (Chronic) M25.512 Atherosclerosis of coronary artery bypass graft(s), unspecified, with other forms of angina pectoris (Chronic) I25.708 Intermittent claudication (Chronic) I73.9 Allergies No Known Allergies Allergy (Verified 12/30/17 11:39) Home Medications: Ambulatory Orders Medication Instructions Recorded Tamsulosin HCl [Flomax] 0.4 mg PO DAILY 03/06/16 metoprolol tartrate 25 mg tablet 25 mg PO BID tab 06/23/17 ranolazine ER 1,000 mg 1,000 mg PO BID tab 06/23/17 Surgical History: Surgical History (Last Reviewed 12/30/17 @ 11:41 by Leeanna Calvo) Hx of CABG Onset Date: 05/2005 Z95.1 VAZQUEZ to LAD, SVG to RCA and diag branch of LAD and repair of dissection with graft and reimplantation of SVG to RCA and diag branch H/O cardiac radiofrequency ablation Onset Date: 10/2006 Z98.890 History of PTCA Z98.61 PTCA of the CFX intracoronary stent History of arthroscopy Onset Date: 07/2011 Z98.890 AND repair of right rotator cuff tear History of left heart catheterization (LHC) Onset Date: 09/2007 Z98.890 05/2005, 09/2007, 10/2006, 02/2008, 10/2013, 03/30/2016 Lives: Alone Smoking Status: Never smoker Tobacco Use: Non-smoker Alcohol: None Drugs: None Review of Systems Constitutional: Reports: - - complete ROS negative except as documented in HPI VTE Information - Inpt Only VTE Present on Admission: No VTE Mechan Device Prophylaxis: SCD's, Thigh High RENETTA Hose VTE Pharm Prophylaxis ordered?: No Reason prophylaxis not ordered:: Treatment Not Indicated - Per DR. Schmidt, he wants patient to be on ASA BID and no other pharmacological prohylaxis - Physical Exam General: Alert HEENT: Normocephalic Neck: Supple Lungs: Clear to auscultation Cardiovascular: Normal S1, Normal S2 Abdomen: Bowel Sounds Present Extremities: No cyanosis Skin: - - right knee redness Musculoskeletal: - - Right knee tenderness, swelling Neurological: Cranial nerves II-XII grossly intact, Deep Tendon Reflexes 2+/4 and Symmetrical, Neuro grossly intact, Motor Exam 5/5 strength throughout, Muscle tone normal, Sensory exam intact to light touch and pain, Coordination normal Psych/Mental Status: Normal Affect Weight: 106.594 kg Body Mass Index (BMI) 35.7 Assessment/Plan The patient is a 82 year old CM with PMH HTN, HLD, CAD s/p CABG, S/P stents, morbid obesity, H/O Atrial flutter s/p ablation not on AC per Cardiology, BPH, had recent right total knee replacement on 02/06/[address] Schmidt now admitted to [facility] with debility s/p right TKR, for > 3 hrs therapy daily, with a goal of returning back home at or near his prior level of functional independence. Plan -PT for gait stability -OT for ADLs -Analgesics as needed -Bowel protocol -HTN- on Lopressor, goal BP < 130/80 mmHg -CAD s/p CABG and stents- stable, on ASA and Ranolazine -H/O atrial flutter- s/p ablation, management per Cardiology Dr. Bustillo/Dr. Brito, is not on AC per Cardiology, will defer further management to Cardiology as outpatient, stroke risk discussed with patient. -BPH-on Tamsulosin -Fall precautions -GI/DVT prophylaxis- SCDs, RENETTA hose knee high, Dr. Schmidt wants him to be on ASA 325 mg PO BID post surgery for 30 days and does not want to be on pharmacological DVT prophylaxis. Will follow surgery recommendations. DVT risks discussed with patient. -Follow up- Per Dr. Schmidt's office directions, the dressing has to be removed in 3 days on 02/13/18, hao to be removed on 02/17/18. Follow with Dr. Schmidt -Hospitalist consult and further medical management per hospitalist recommendations. Code Visit Inpatient E AND M: 27929 Init Hosp L3 02/19/18 1557 <Electronically signed by Rolando Merida MD> Date Rolando Merida MD Cosigner Signature: Date (if applicable) CC: Alexys Merida MD; Darshana Gibson MD Signed VENOUS DUPLEX LOWER Observed: 02/17/2018 Status: F Source: [place] EXTREMITY 7:36 AM [facility] REPOSITORY [facility] Cardiovascular Services [address] [place] [address] Venous Duplex US - Baltazar Extrem 02/16/18 1105 MR#: [id number] Acct: [id number] Name: ISA MILES Rep #: [id number] : 1935 82 From: Vinay Sands MD Attending Dr: Martha Antonio MD Status: ADM IN Ordering Dr: Julio Pack MD Date: 02/16/18 Location: Sex: M C Admitted: 02/10/18 Reason For Study: LEG PAIN RIGHT LEFT CFV is compressible, spontaneous, phasic, CFV is compressible, spontaneous, phasic, competent and demonstrates normal competent, and demonstrates normal augmentation. augmentation. FV is compressible, spontaneous, phasic, FV is compressible, spontaneous, phasic, competent and demonstrates normal competent and demonstrates normal augmentation. augmentation. POP V is compressible, spontaneous, phasic, POP V is compressible, spontaneous, phasic, competent and demonstrates normal competent and demonstrates normal augmentation. augmentation. T/P Trunk is compressible. T/P Trunk is compressible. PTV is compressible. PTV is compressible. RT PerV is compressible. LT PerV is compressible. GSV is partially compressible with vein wall GSV is partially compressible with bright thickening. intraluminal echoes consistant with chronic Procedure clot. Does not extend into deep system. Exam performed portable in patient room. A preliminary report was called and/or faxed to . Interpretation Summary Deep veins of the lower extremities are bilaterally patent and compressible segmentally. There is no evidence of deep vein thrombosis on either side. Valvular competence appears intact within the proximal deep venous systems bilaterally. Chronic venous changes are noted in the great saphenous veins bilaterally, suggesting a history of prior superficial thrombophlebitis. Ordering Physician: Julio Pack Referring Physician: Darshana Gibson Chi Performed By: Ayanna Perez RVT 02/17/18 0736 Date Vinay Sands MD CC: Alexys Merida MD; Martha Antonio MD; Julio Pack MD; Darshana Gibson MD Date Dictated: 02/16/18 1105 Date Transcribed: 02/17/1836 Human Intelligence: Signed ERYTHROCYTE SED RATE Collected: 02/16/2018 Status: F Source: [place] 11:22 AM [facility] REPOSITORY Order Comment: PT IS IN THEROPY TRY AFTER 1100AM TYPE CODE TESTS RESULT OUT OF RANGE REFERENCE UNITS LAB L102.0000 0-20 mm/hr High SED RATE 25 Performed By: #### L101.9900 #### [facility] [address] [place], [address] OPERATIVE REPORT Observed: 02/13/2018 Status: F Source: [place] 2:15 PM [facility] REPOSITORY [facility] Medical Records Department [address] [facility] [facility] [place] [address] Operative Report 02/13/18 1411 MR#: [id number] Acct: [id number] Name: ISA MILES Huma Rep #: [id number] : 1935 82 From: Peter Smith DO PCP: Darshana Gibson MD, Chi Status: ADM IN Location: [place] [address] Operative Report Date of Procedure: 02/06/18 Primary Surgeon/Physician: Peter Smith grinder set up operator external: Chapincito Ferguson PA-C grinder set up operator external: Pre-Operative Diagnosis: Osteoarthritis right knee Post-Operative Diagnosis: same Surgery/Procedure Performed: Right TKR using Drea size 6 PS femur, size 6 tibia, 11 mm polyethylene spacer and 38 mm patella (all components cemented) Estimated Blood Loss: 25cc Specimen's Removed: bone Type of Anesthesia: spinal ASA Class: 3 Implants: [ ] Indications: Patient has severe end-stage osteoarthritis diagnosed via x-rays in the knee. They have failed all forms of conservative measures including activity modification, injections, anti-inflammatories, use of assistive device. The patient has pain that affects on a daily basis and prevents him from doing things that they enjoyed. They have elected to undergo the above procedure. The risks of the procedure were discussed at length and their questions were answered. Procedure Description: The patient was greeted in the preoperative area. The [ right] knee was then marked with a surgical marker. Patient was then taken to or [address]. They were administered a dose of antibiotics as well as tranexamic acid. Once adequate anesthesia was obtained and airway was secured to placed in supine position on the operating room table. A well-padded tourniquet was placed on the affected extremity. Leg was then prepped and draped in the usual sterile fashion from the knee down. Ioban was used on the skin. Surgical timeout was then performed and confirmed with all present. Six-inch Esmarch was used to examine the limb and tourniquet was then inflated to 250 mmHg. A longitudinal incision was then planned and carried out in the anterior aspect of the knee. The dissection was then carried the length of the incision the extensor mechanism was identified. Standard medial parapatellar arthrotomy was then performed revealing severe eburnation of bone and periarticular osteophytes. There is complete loss of cartilage especially in the medial compartment with varus alignment. Anterior fat pad was removed for visualization purposes and the anterior medial aspect of the tibia was skeletonized for exposure to the knee. The knee was then flexed the patella was inverted. Opening reamer was then used in the femur approximately 1 cm anterior to the attachment of the PCL. The intramedullary valgus wand was then placed in the femur set at 5 of valgus. The distal femoral cutting jig was then applied to the femur with anticipated resection of approximately 8 mm. This was then made with a oscillating saw. The sizing guide was then placed referencing off the posterior condyles and also reference off the epicondylar axis. This was measured and the appropriate size 4-in-1 cutting jig was then applied to the distal femur. Anterior posterior cuts were made followed by the anterior and posterior chamfer cuts. These bony pieces and fragments were removed and placed on the back table. Posterior retractor was then utilized and the tibia was subluxed anteriorly. Intramedullary tibial alignment jig was then applied to the tibia referencing off the medial one third of the tibial tubercle the anterior tibial spine the middle aspect of the tibiotalar joint. Also reference off patient's [place]. The tibial cutting jig was then pinned with anticipated resection of 2 mm off of the deficient medial tibial condyle. This cut was made with the oscillating saw. Once this was complete a laminar mayonnaise mixer was utilized in both medial lateral meniscus were removed and a posterior capsular osteophytes were also removed. Posterior capsule release was performed in the posterior capsule as well as the geniculate arteries are treated with the aqua Keyla. The tibia was incised and the appropriate sized tibial tray was then pinned. The femoral box cutting jig was then applied to the femur and the box was prepared removing a portion of the intercondylar notch. The femoral trial was then placed and the knee was trialed. Full flexion-extension were easily achieved. The knee seemed to balance quite nicely. Any remaining osteophytes were removed at this time. Once this was complete the patella was everted and the [employer] patella reaming device was then utilized the patella was then placed in the appropriate jig and reamer was then used to remove approximately 9 mm of the undersurface of the patella. A soft tissue remaining was in the way was removed and patella trial was then placed listed maintain excellent tracking using the no thumbs technique. The tibial tray at this point was punched to accommodate the fins of the final implant. At this point cement was mixed on the back table. The trial components were removed and the knee was copiously irrigated. Did use a cocktail of injection for postoperative pain control. The final components were then cemented in the standard fashion and excess cement was removed with cement removal tools and patellar clamp is placed in the patella. As the cement had cured in full extension tourniquet was deflated and hemostasis was perfect with Bovie cautery as well as the aqua Manus. Needle is once again trialed with different size polyethylenes to ensure the full range of motion was achieved as well as excellent balancing ligamentously was achieved. At this point the knee was copiously irrigated. Final implant was then inserted locking mechanism was engaged and confirmed to be locked. The arthrotomy was then closed with #1 Vicryl aggravate type fashion interrupted. Subcutaneous tissue was closed with 0 Vicryl and surgical hao were placed in the skin. A occlusive silver impregnated dressing was then applied followed by well-padded sterile dressing secured with an Carlitos wrap. The patient was taken to the PACU in stable condition. No complications known at this time. Postoperatively we will maintain standard total knee postoperative protocol. The use of the physician captain assistant was integral during this procedure. They assisted with positioning placement of the tourniquet retracting closure and placement of the dressing. The procedure would have been much more difficult without their expertise and assistance 02/13/18 1415 <Electronically signed by Peter Smith DO> Date Peter Smith DO CC: Alexys Merida MD; Peter Smith DO; Conner Pritchard MD; Darshana Gibson MD Signed URINALYSIS, COMPLETE Collected: 02/11/2018 Status: F Source: [place] 6:20 PM [facility] REPOSITORY Order Comment: How was Urine Obtained? CLEAN CATCH TYPE CODE TESTS RESULT OUT OF RANGE REFERENCE UNITS LAB L400.3000 Yellow COLOR Normal Yellow LAB L400.3050 Clear Normal CLARITY Clear LAB L400.3200 Normal mg/dl Normal GLUCOSE, UR Normal LAB L400.3300 Negative mg/dL Normal BILIRUBIN URINE Negative LAB L400.3400 Negative mg/dl Normal KETONE UR Negative LAB L400.3465 1.002-1.030 Normal SP.GR. DIPSTX 1.010 LAB L400.3550 5.0 - 8.0 pH UR Normal 6.5 LAB L400.3600 Negative mg/dl PROT Normal DIPSTX Negative LAB L400.3700 Normal mg/dl Normal UROBILI Normal LAB L400.3750 Negative Normal NITRITE UR Negative LAB L400.3780 Negative /ul Normal OCCULT BLOOD-UR Negative LAB L400.3800 Negative /ul High LEUK 25 ESTERASE LAB L400.4050 0-5 /hpf WBC Normal 0-5 SEEN LAB L400.4100 0-5 /hpf 0 Normal RBC-UA SEEN LAB L400.4150 0-5 /hpf SQUAM 0 Normal EPI SEEN LAB L400.4300 None Seen /hpf 0 Normal BACTERIA SEEN LAB L400.4350 <or=2+ /hpf 0 Normal MUCUS, URINE SEEN Performed By: #### L400.0001 #### [facility] [address] [place], [address] Observed: 02/11/2018 Status: F Source: [place] CULTURE, URINE 6:20 PM [facility] REPOSITORY Urine Culture Below infection level. ORGANISM 1: Gram negative jared [place] Count 1000-10,000 Performed By: #### M100.0650 #### [facility] [address] [place], [address] CBC W/DIFF, AUTOMATED Collected: 02/11/2018 Status: F Source: [place] 8:28 AM [facility] REPOSITORY TYPE CODE TESTS RESULT OUT OF RANGE REFERENCE UNITS LAB L100.1000 4.4-11.0 K/mm3 Normal WBC 6.2 LAB L100.1200 4.6-6.2 M/mm3 Low RBC 3.29 LAB L100.1300 13.0-16.5 g/dl Low HGB 12.0 LAB L100.1400 40-54 % Low HCT 35.0 LAB L100.1500 80-94 fL High MCV 106.4 LAB L100.1600 27.0-32.0 pg High MCH 36.5 LAB L100.1700 32-36 g/gl Normal MCHC 34.3 LAB L100.1810 11.6-14.6 % Normal RDW CV 14.1 LAB L100.1820 35.1-43.9 fl High RDW SD 54.1 LAB L100.1900 150-450 K/mm3 Normal PLT 169 LAB L100.2000 6.2-12.0 fl Normal MPV 11.1 LAB L100.2100 47-70 % High NEUT% 71.3 LAB L100.2200 19-41 % Low LY% 8.2 LAB L100.2300 0-10 % High MONO% 17.4 LAB L100.2400 0-5 % Normal EO% 2.6 LAB L100.2500 0-1 % Normal BASO% 0.0 LAB L100.2550 0.0-0.9 % Normal IM GRAN % 0.500 Result Comment: IG% - Immature Granulocytes (promyelocytes, myelocytes and metamyelocytes) > 1% indicates that a LEFT SHIFT is Present. LAB L100.2620 2.0-7.7 X10 3/uL Normal Absolute Neut 4.4 LAB L100.2720 0.83-4.51 X10 3/ul Low Absolute Lymph 0.51 Performed By: #### L100.0100 #### [facility] [place], [address] COMPREHENSIVE METABOLIC Collected: 02/11/2018 Status: F Source: [place] 8:28 AM [facility] REPOSITORY TYPE CODE TESTS RESULT OUT OF RANGE REFERENCE UNITS LAB L501.0100 74-106 mg/dL High GLU 166 Result Comment: Fasting Glucose result greater than or equal to 126 mg/dL suggests DIABETES MELLITUS per A.D.A. criteria. Please note revised GLUCOSE reference range effective 2017. LAB L501.1000 7-18 mg/dL Normal BUN 17 LAB L501.1100 0.70-1.30 mg/dL Normal CREAT,SERUM 1.13 Result Comment: The validity of the calculated GFR AND GFRAA in patients over 70 years has not been determined. Clinical correlation is essential. LAB L501.1110 >60 mL/min Normal EST GFR 66 Result Comment: Non- GFR Calc LAB L501.1115 >60 mL/min Normal EST GFR - AA 80 Result Comment: GFR Calc LAB L501.1255 ml/min Normal Estimated CRCL 50.44 LAB L501.1300 10-20 RATIO Normal BUN/CRE 15.0 LAB L501.1500 6.4-8. g/dL Normal 2 T PROT 6.8 LAB L501.1800 3.2-5. g/dL Low 0 ALB 2.8 LAB L501.1950 2.2-4. g/dL Normal 2 GLOB 4.0 LAB L501.2000 0.9-2. RATIO Low 4 A/G 0.7 LAB L501.2200 8.5-10 mg/dL Normal .1 CA 8.8 LAB L501.4100 15-37 U/L Normal AST 22 LAB L501.4305 45-117 U/L Normal ALK P 60 LAB L501.4405 16-61 U/L Normal ALT 19 LAB L501.4600 0.20-1 mg/dL High .00 T BILI 1.20 LAB L501.5300 136-14 mmol/L Normal 5 NA 139 LAB L501.5600 3.5-5. mmol/L Normal 1 K 4.2 LAB L501.5900 98-107 mmol/L Normal CL 103 LAB L501.6100 21.0-3 mmol/L Normal 2.0 CO2 31.0 LAB L501.6200 5-15 Normal GAP 5 Performed By: #### L500.4050 #### [facility] [address] [place], [address] HEMOGLOBIN A1C Collected: 02/11/2018 Status: F Source: [place] 8:28 AM [facility] REPOSITORY Order Comment: ADD TO BLOOD IN LAB TYPE CODE TESTS RESULT OUT OF RANGE REFERENCE UNITS LAB L501.9985 4.2-6.3 % Normal HGB A1C 5.7 Performed By: #### L501.9985 #### [facility] [address] [facility] [place], [address] CONSULTATION Observed: 02/10/2018 Status: F Source: [place] 4:51 PM [facility] REPOSITORY [facility] Medical Records Department [address] [place] [id number] Consultation 02/10/18 1635 MR#: [id number] Acct: [id number] Name: ISA MILES Rep #: [id number] : 1935 82 From: Conner Pritchard MD PCP: Darshana Gibson MD, Chi Status: ADM IN Location: [place] [address] Problem List (1) Status post total knee replacement, right Status: Acute (2) Prinzmetal angina Status: Chronic (3) HLD (hyperlipidemia) Status: Chronic Qualifiers: (4) HTN (hypertension) Status: Chronic Qualifiers: (5) CAD (coronary artery disease) Status: Chronic Qualifiers: (6) Malignant pericardial effusion Status: Chronic (7) Atrial flutter Status: Chronic (8) Palpitations Status: Chronic (9) Shortness of breath Status: Chronic (10) Precordial chest pain Status: Chronic (11) Aortocoronary bypass status Status: Chronic (12) History of percutaneous transluminal coronary angioplasty Status: Chronic (13) Abnormal result of cardiovascular function study, unspecified Status: Chronic (14) Pain in limb Status: Chronic (15) Dizziness and giddiness Status: Chronic (16) Fatigue Status: Chronic (17) Mild aortic insufficiency Status: Chronic (18) Pain in left shoulder Status: Chronic (19) Atherosclerosis of coronary artery bypass graft(s), unspecified, with other forms of angina pectoris Status: Chronic (20) Intermittent claudication Status: Chronic Reason for Consult Date of Consultation: 02/10/18 Reason for Consultation: For medical management of multiple comorbidities History of Present Illness: The patient is a 82 year old M with multiple comorbidities including coronary artery disease status post CABG long time ago probably 20 years ago, stents last one about 3 years ago, hypertension, dyslipidemia atrial flutter status post ablation BPH had right TKR on 02/06/[address] Smith and was sent home but patient has difficulty moving around on walker with debility and pain and therefore admitted in acute rehab for PT. Patient denies active symptoms of chest pain, shortness of breath at rest, palpitation but he states easily gets short of breath on walking or exertion. Denies shortness of breath on laying flat or orthopnea. [] No lower urinary tract symptoms or constipation. Past Medical History Past Medical History (Chronic Problems): Chronic Problems (Last Reviewed 12/30/17 @ 11:41 by Leeanna Calvo) Prinzmetal angina (Chronic) HLD (hyperlipidemia) (Chronic) HTN (hypertension) (Chronic) CAD (coronary artery disease) (Chronic) Malignant pericardial effusion (Chronic) Atrial flutter (Chronic) Palpitations (Chronic) Shortness of breath (Chronic) Precordial chest pain (Chronic) Aortocoronary bypass status (Chronic) History of percutaneous transluminal coronary angioplasty (Chronic) Abnormal result of cardiovascular function study, unspecified (Chronic) Pain in limb (Chronic) Dizziness and giddiness (Chronic) Fatigue (Chronic) Mild aortic insufficiency (Chronic) Pain in left shoulder (Chronic) Atherosclerosis of coronary artery bypass graft(s), unspecified, with other forms of angina pectoris (Chronic) Intermittent claudication (Chronic) Medical History: Medical History (Last Reviewed 12/30/17 @ 11:41 by Leeanna Calvo) Prinzmetal angina (Chronic) I20.1 HLD (hyperlipidemia) (Chronic) E78.5 HTN (hypertension) (Chronic) I10 CAD (coronary artery disease) (Chronic) I25.10 Malignant pericardial effusion (Chronic) C80.1, I31.8 Atrial flutter (Chronic) I48.92 Palpitations (Chronic) R00.2 Shortness of breath (Chronic) R06.02 Precordial chest pain (Chronic) R07.2 Aortocoronary bypass status (Chronic) Z95.1 History of percutaneous transluminal coronary angioplasty (Chronic) Z98.61 Abnormal result of cardiovascular function study, unspecified (Chronic) R94.30 Pain in limb (Chronic) M79.609 Dizziness and giddiness (Chronic) R42 Fatigue (Chronic) R53.83 Mild aortic insufficiency (Chronic) I35.1 Pain in left shoulder (Chronic) M25.512 Atherosclerosis of coronary artery bypass graft(s), unspecified, with other forms of angina pectoris (Chronic) I25.708 Intermittent claudication (Chronic) I73.9 Allergies No Known Allergies Allergy (Verified 12/30/17 11:39) Home Medications: Ambulatory Orders Medication Instructions Recorded Tamsulosin HCl [Flomax] 0.4 mg PO DAILY 03/06/16 metoprolol tartrate 25 mg tablet 25 mg PO BID tab 06/23/17 ranolazine ER 1,000 mg 1,000 mg PO BID tab 06/23/17 Surgical History: Surgical History (Last Reviewed 12/30/17 @ 11:41 by Leeanna Calvo) Hx of CABG Onset Date: 05/2005 Z95.1 VAZQUEZ to LAD, SVG to RCA and diag branch of LAD and repair of dissection with graft and reimplantation of SVG to RCA and diag branch H/O cardiac radiofrequency ablation Onset Date: 10/2006 Z98.890 History of PTCA Z98.61 PTCA of the CFX intracoronary stent History of arthroscopy Onset Date: 07/2011 Z98.890 AND repair of right rotator cuff tear History of left heart catheterization (LHC) Onset Date: 09/2007 Z98.890 05/2005, 09/2007, 10/2006, 02/2008, 10/2013, 03/30/2016 Lives: Alone Smoking Status: Never smoker Tobacco Use: Non-smoker Alcohol: None Drugs: None - *Family History Paternal Family History: Family History (Last Reviewed 12/30/17 @ 11:41 by Leeanna Calvo) Father CAD (coronary artery disease) CHF (congestive heart failure) Mother Heart disease Brother Diabetes Cancer Hx of CABG CAD (coronary artery disease) Sister COPD (chronic obstructive pulmonary disease) Diabetes History Items: No pertinent history Review of Systems Constitutional: Reports: - - Obese. Denies: Chills, Fever, Weight Change HEENT: Denies: Head Aches, Sinus Congestion, Sinus Drainage Cardiovascular: Denies: Chest Pain, Palpitations Respiratory: Denies: Cough, Shortness of breath at rest, Sputum production Gastrointestinal: Denies: Abdominal Pain, Nausea, Vomiting Genitourinary: Denies: Dysuria Musculoskeletal: Reports: Joint Pain, Joint stiffness, Joint swelling, Joint Tenderness Skin: Denies: Rash, Wounds Neurological: Reports: Balance problems. Denies: Focal weakness, Numbness, Tingling Psychiatric: Denies: Anxiety, Depression, Homicidal Ideations, Suicidal Ideations Hematologic/ Lymphatic: Denies: Easy Bruising, Easy Bleeding Patient Problems: Active and Suspected Problems (Last Reviewed 12/30/17 @ 11:41 by Leeanna Calvo) Status post total knee replacement, right (Acute) - Physical Exam General: Alert, Oriented x3, Cooperative HEENT: Atraumatic, PERRLA, EOMI, Normocephalic Neck: Supple, No JVD, Negative Carotid Bruits Lungs: Clear to auscultation, Normal air movement, No rhonchi, No wheeze Cardiovascular: Regular rate, Regular Rhythm, Normal S1, Normal S2, No murmurs Abdomen: Bowel Sounds Present, Soft, Non Tender, Non-Distended Extremities: Capillary Refill Less than 3 Seconds, Edema - Mild edema around the right knee. very minor stain of knee dressing at 2 spots. Skin: No rashes, No breakdown, - - Right TKR operative wound Musculoskeletal: No Tenderness to Palpation of Joints or Extremities Neurological: Cranial nerves II-XII grossly intact Psych/Mental Status: Normal Affect, Appropriate Vital Signs Temp Pulse Resp BP Pulse Ox 98.6 F 66 16 115/61 94 02/10/18 14:37 02/10/18 14:37 02/10/18 14:37 02/10/18 14:37 02/10/18 14:37 Oxygen Delivery Method Room Air Weight: 232 lb 2.348 oz Body Mass Index (BMI) 35.7 Assessment/Plan All Active Problems (Last Reviewed 12/30/17 @ 11:41 by eLeanna Calvo) Status post total knee replacement, right (Acute) The patient is a 82 year old M with multiple comorbidities including coronary artery disease status post CABG long time ago probably 20 years ago, stents last one about 3 years ago, hypertension, dyslipidemia atrial flutter status post ablation BPH had right TKR on 02/06/[address] Smith and was sent home but patient has difficulty moving around on walker with debility and pain and therefore admitted in acute rehab for PT. Patient denies active symptoms of chest pain, shortness of breath at rest, palpitation but he states easily gets short of breath on walking or exertion. Denies shortness of breath on laying flat or orthopnea. [] No lower urinary tract symptoms or constipation. 1. Debility secondary to recent right TKR: Patient had surgery on 02/06/2018. Active PT. Pain control as needed. Dressing changes scheduled on next Tuesday. On oxycodone for breakthrough pain. 3. Coronary artery disease status post CABG and stents, atrial flutter status post ablation hypertension and dyslipidemia: Continue home medications including metoprolol, Ranexa. Patient follows Dr. Jeronimo. Last EKG shows sinus rhythm with incomplete left bundle block pattern on 12/30/2017. 3. Other chronic comorbidities include mild peripheral artery disease with intermittent claudication: As per the patient and nursing staff, he had possible DVT and was treated with anticoagulant about [address] Gibson but no official documentation available to substantiate that. Patient's son is not aware of that. Will need office reports less documentation on Tuesday from Dr. Gibson office to document that although does not affect his treatment regimen. Bowel regimen as needed for constipation DVT prophylaxis on aspirin 325 mg twice daily as per orthopedic surgeon recommendation. Labs reviewed, last one on 02/07/2018. Home medication reconciliation done. Code Visit Inpatient E AND M: 53363 Init Hosp L2 02/10/18 3318 <Electronically signed by Conner Pritchard MD> Date Conner Pritchard MD Cosigner Signature (if applicable): Date CC: Alexys Merida MD; Conner Pritchard MD; Darshana Gibson MD Signed DISCHARGE INSTRUCTION Observed: 02/08/2018 Status: F Source: [place] 10:41 AM [facility] REPOSITORY [facility] Medical Records Department [address] [place] [address] Instructions for Home/Discharge Instructions 02/08/18 1040 MR#: [id number] Acct: [id number] Name: ISA MILES Rep #: [id number] : 1935 82 From: Js Ferguson PA-C PCP: Maxim HERNANDEZ,Darshana Funez Status: ADM IN Discharge Diet: No Restrictions Discharge Activity: May Not Drive, May Shower, Use Walker May shower in (days): 2 Ice area for (Minutes): 20 - each hour while awake. Weight Bearing Status: Weight bearing as tolerated Elevate: Operative Extremity Additional Activity Instructions:: Wear elastic stockings for 2 weeks after your surgery. Call your doctor if your incision/area has: Continuous Slow Oozing, Sudden Increased Bleeding, Increased Pain/ Swelling, Increased Redness, Foul Smelling Discharge Call your doctor if you observe: Fever of 101 or Higher, Coldness, Increased Pain - in extremity, Numbness or Tingling, Change in Color, Calf discomfort, Uncontrolled pain Change Dressing in (Days):: 0 - and daily as needed. Remove Dressing in (days):: 9 Cleanse incision/area with: Soap AND Water Allergies/Adverse Reactions: Allergies No Known Allergies Allergy (Verified 12/30/17 11:39) Medications to take at Discharge Tamsulosin HCl [Flomax] 0.4 mg PO DAILY 03/06/16 Potassium Chloride [K-Dur] 20 meq PO DAILY 03/29/16 metoprolol tartrate 25 mg tablet 25 mg PO BID tab 06/23/17 ranolazine ER 1,000 mg tablet,extended release,12 hr 1,000 mg PO BID tab 06/23/17 nitroglycerin 0.4 mg sublingual tablet 0.4 mg SUBLINGUAL Q5M PRN #25 tab 12/30/17 Multivitamin [Multiple Vitamins] 1 each PO DAILY 01/10/18 famotidine 40 mg tablet 40 mg PO QDAY 01/25/18 Acetaminophen [Tylenol] 1,000 mg PO Q8 #90 tab 02/08/18 Aspirin 325 mg PO BIDCM #60 tab 02/08/18 Oxycodone [Oxyir] 5 - 10 mg PO Q4H PRN PRN 7 Days #84 tab 02/08/18 The following prescriptions were given: Oxycodone [Oxyir] 5 - 10 mg PO Q4H PRN PRN 7 Days #84 tab PRN Reason: Mod-Severe Pain (4-10) Acetaminophen [Tylenol] 1,000 mg PO Q8 #90 tab Aspirin 325 mg PO BIDCM #60 tab Primary Care Physician: Darshana Gibson Chi, MD [Primary Care Provider] - Test Results: Test results from this visit will be discussed in further detail at your follow-up appointment, if applicable. Please Follow Up With: Js Ferguson PA-C When: see pink sheet 02/08/18 1041 <Electronically signed by Js Ferguson PA-C> Date Js Ferguson PA-C CC: Darshana Gibson MD CBC-COMPLETE BLOOD CNT Collected: 02/07/2018 Status: F Source: [place] NO DIFF 5:05 AM [facility] REPOSITORY TYPE CODE TESTS RESULT OUT OF RANGE REFERENCE UNITS LAB L100.1000 4.4-11.0 K/mm3 Normal WBC 5.7 LAB L100.1200 4.6-6.2 M/mm3 Low RBC 3.40 LAB L100.1300 13.0-16.5 g/dl Low HGB 12.4 LAB L100.1400 40-54 % Low HCT 37.0 LAB L100.1500 80-94 fL High MCV 108.8 LAB L100.1600 27.0-32.0 pg High MCH 36.5 LAB L100.1700 32-36 g/gl Normal MCHC 33.5 LAB L100.1810 11.6-14.6 % Normal RDW CV 14.5 LAB L100.1820 35.1-43.9 fl High RDW SD 56.4 LAB L100.1900 150-450 K/mm3 Low PLT 117 LAB L100.2000 6.2-12.0 fl Normal MPV 11.4 Performed By: #### L100.0500 #### [facility] [address] [place], [place], [address] BASIC METABOLIC Collected: 02/07/2018 Status: F Source: [place] PROFILE (BMP) 5:05 AM [facility] REPOSITORY TYPE CODE TESTS RESULT OUT OF RANGE REFERENCE UNITS LAB L501.0100 74-106 mg/dL Normal GLU 97 Result Comment: Please note revised GLUCOSE reference range effective 2017. LAB L501.1000 7-18 mg/dL Normal BUN 14 LAB L501.1100 0.70-1.30 mg/dL Normal CREAT,SERUM 1.01 Result Comment: The validity of the calculated GFR AND GFRAA in patients over 70 years has not been determined. Clinical correlation is essential. LAB L501.1110 >60 mL/min Normal EST GFR 76 Result Comment: Non- GFR Calc LAB L501.1115 >60 mL/min Normal EST GFR - AA 91 Result Comment: GFR Calc LAB L501.1255 ml/min Normal Estimated CRCL 56.44 LAB L501.1300 10-20 RATIO Normal BUN/CRE 13.9 LAB L501.2200 8.5-10 mg/dL Low .1 CA 8.3 LAB L501.5300 136-14 mmol/L Normal 5 NA 143 LAB L501.5600 3.5-5. mmol/L Normal 1 K 4.2 LAB L501.5900 98-107 mmol/L High CL 108 LAB L501.6100 21.0-3 mmol/L Normal 2.0 CO2 28.0 LAB L501.6200 5-15 Normal GAP 7 Performed By: #### L500.2500 #### [facility] [address] [place], [address] CBC-COMPLETE BLOOD CNT Collected: 02/06/2018 Status: F Source: [place] NO DIFF 3:02 PM [facility] REPOSITORY Order Comment: Comments: To be done in PACU TYPE CODE TESTS RESULT OUT OF RANGE REFERENCE UNITS LAB L100.1000 4.4-11.0 K/mm3 Normal WBC 5.0 LAB L100.1200 4.6-6.2 M/mm3 Low RBC 3.51 LAB L100.1300 13.0-16.5 g/dl Low HGB 12.9 LAB L100.1400 40-54 % Low HCT 38.2 LAB L100.1500 80-94 fL High MCV 108.8 LAB L100.1600 27.0-32.0 pg High MCH 36.8 LAB L100.1700 32-36 g/gl Normal MCHC 33.8 LAB L100.1810 11.6-14.6 % Normal RDW CV 14.5 LAB L100.1820 35.1-43.9 fl High RDW SD 55.8 LAB L100.1900 150-450 K/mm3 Low PLT 136 LAB L100.2000 6.2-12.0 fl Normal MPV 11.2 Performed By: #### L100.0500 #### [facility] [address] [place], [address] TOTAL KNEE REPLACEMENT Observed: 02/06/2018 Status: F Source: [place] 12:00 PM [facility] REPOSITORY Patient: ISA MILES : 1935 (82/M) Acct Num: [id number] Phys: Peter Smith DO Unit Num: [id number] Loc: MS3 LO417-5 Specimen: [id number] Received: 02/06/18 - 1443 Spec Type: TOTAL KNEE TISSUES TISSUES: Knee, NOS GROSS DESCRIPTION Received is one container designated bone and soft tissue right knee. The specimen consists of multiple fragments of wilde-yellow bone measuring in aggregate 11 x 11 x 4 cm. Also in the specimen container are multiple fragments of yellow-white soft tissue measuring in aggregate 8 x 8 x 3 cm. A number of bony fragments contain articular surfaces consistent with tibial plateau and femoral condyle and displaying prominent osteophyte formation, eburnation, and bone erosion. [employer] Developer sections are submitted in two cassettes as follows : 1 - soft tissue, 2 - bone after decalcification. / SJ:wilmer 02/07/18 TC:5 CPT: 32727, 34397 HEADER OPERATION: Right total knee replacement PRE-OP DIAGNOSIS: Right knee osteoarthritis TISSUE SUBMITTED: Right knee bone and tissue MICROSCOPIC DESCRIPTION Slides are reviewed. MICROSCOPIC DIAGNOSIS Bone and soft tissue of right knee, total knee resection: Severe degenerative joint disease. AM:wilmer 02/10/18 Signed Sawyer Joie 02/10/18 <signature on file> Performed By: #### PKNEE #### [facility] [place], [address] CBC W/DIFF, AUTOMATED Collected: 02/06/2018 Status: F Source: [place] 11:08 AM [facility] REPOSITORY Order Comment: Comments: STAT PRE-OP TYPE CODE TESTS RESULT OUT OF RANGE REFERENCE UNITS LAB L100.1000 4.4-11.0 K/mm3 Normal WBC 5.5 LAB L100.1200 4.6-6.2 M/mm3 Low RBC 3.82 LAB L100.1300 13.0-16.5 g/dl Normal HGB 13.6 LAB L100.1400 40-54 % Normal HCT 41.2 LAB L100.1500 80-94 fL High MCV 107.9 LAB L100.1600 27.0-32.0 pg High MCH 35.6 LAB L100.1700 32-36 g/gl Normal MCHC 33.0 LAB L100.1810 11.6-14.6 % High RDW CV 15.0 LAB L100.1820 35.1-43.9 fl High RDW SD 58.9 LAB L100.1900 150-450 K/mm3 Low PLT 148 LAB L100.2000 6.2-12.0 fl Normal MPV 11.0 LAB L100.2100 47-70 % Normal NEUT% 63.2 LAB L100.2200 19-41 % Low LY% 13.2 LAB L100.2300 0-10 % High MONO% 18.8 LAB L100.2400 0-5 % Normal EO% 4.0 LAB L100.2500 0-1 % Normal BASO% 0.4 LAB L100.2550 0.0-0.9 % Normal IM GRAN % 0.400 Result Comment: IG% - Immature Granulocytes (promyelocytes, myelocytes and metamyelocytes) > 1% indicates that a LEFT SHIFT is Present. LAB L100.2620 2.0-7.7 X10 3/uL Normal Absolute Neut 3.5 LAB L100.2720 0.83-4.51 X10 3/ul Low Absolute Lymph 0.72 Performed By: #### L100.0100 #### [facility] [address] [place], [address] 12 LEAD ELECTROCARDIOGRAM Observed: 01/13/2018 Status: F Source: [place] 1:18 PM [facility] REPOSITORY [facility] Cardiovascular Services [address] [place] [address] EKG - MEC 01/10/18 1450 MR#: [id number] Acct: [id number] Name: ISA MILES Rep #: [id number] : 1935 82 From: Ritchie Brito MD Attending Dr: Peter Smith DO Status: PRE IN Ordering Dr: Jose Chatman MD Date: 01/10/18 [place] [facility] [place] M C Admitted: Test Reason : Blood Pressure : / mmHG Vent. Rate : 065 BPM Atrial Rate : 065 BPM P-R Int : 184 ms QRS Dur : 104 ms QT Int : 420 ms P-R-T Axes : 068 -09 046 degrees QTc Int : 436 ms Sinus rhythm with Premature atrial complexes Otherwise normal ECG Confirmed by DARYL HERNANDEZ, RITCHIE ([id number]), editor continuity and script DIONNE HALE ([id number]) on 01/13/2018 1:18:26 PM Referred By: Peter Smith Confirmed By:RITCHIE BRITO MD 01/13/18 1318 Date Ritchie Brito MD CC: Jose Chatman MD; Peter Smith DO; Darshana Gibson MD Date Dictated: 01/10/181449 Date Transcribed: 01/10/181449 Human Intelligence: Signed CBC W/DIFF, AUTOMATED Collected: 01/12/2018 Status: F Source: [place] 4:05 PM [facility] [facility] REPOS[facility] TYPE CODE TESTS RESULT OUT OF RANGE REFERENCE UNITS LAB L100.1000 4.4-11.0 K/mm3 Normal WBC 9.7 LAB L100.1200 4.6-6.2 M/mm3 Low RBC 3.80 LAB L100.1300 13.0-16.5 g/dl Normal HGB 13.6 LAB L100.1400 40-54 % Normal HCT 40.6 LAB L100.1500 80-94 fL High MCV 106.8 LAB L100.1600 27.0-32.0 pg High MCH 35.8 LAB L100.1700 32-36 g/gl Normal MCHC 33.5 LAB L100.1810 11.6-14.6 % Normal RDW CV 14.1 LAB L100.1820 35.1-43.9 fl High RDW SD 54.7 LAB L100.1900 150-450 K/mm3 Normal PLT 153 LAB L100.2000 6.2-12.0 fl Normal MPV 11.5 LAB L100.2100 47-70 % High NEUT% 76.6 LAB L100.2200 19-41 % Low LY% 6.0 LAB L100.2300 0-10 % High MONO% 15.7 LAB L100.2400 0-5 % Normal EO% 1.2 LAB L100.2500 0-1 % Normal BASO% 0.1 LAB L100.2550 0.0-0.9 % Normal IM GRAN % 0.400 Result Comment: IG% - Immature Granulocytes (promyelocytes, myelocytes and metamyelocytes) > 1% indicates that a LEFT SHIFT is Present. LAB L100.2620 2.0-7.7 X10 3/uL Normal Absolute Neut 7.4 LAB L100.2720 0.83-4.51 X10 3/ul Low Absolute Lymph 0.58 LAB L100.4500 Normal SMEAR COMMENT SCANNED Result Comment: LYMPHOPENIA NOTED MONOCYTOSIS NOTED Performed By: #### L100.0100 #### [facility] [address] [place], [place], [id number] COMPREHENSIVE METABOLIC Collected: 01/12/2018 Status: F Source: [facility] 4:05 PM [facility] REPOSITORY TYPE CODE TESTS RESULT OUT OF RANGE REFERENCE UNITS LAB L501.0100 74-106 mg/dL Normal GLU 104 Result Comment: Fasting Glucose result from 100 to 125 mg/dL suggests IMPAIRED HOMEOSTASIS per A.D.A. criteria. Please note revised GLUCOSE reference range effective 2017. LAB L501.1000 7-18 mg/dL High BUN 25 LAB L501.1100 0.70-1.30 mg/dL Normal CREAT,SERUM 1.28 Result Comment: The validity of the calculated GFR AND GFRAA in patients over 70 years has not been determined. Clinical correlation is essential. LAB L501.1110 >60 mL/min Low EST GFR 58 Result Comment: Non- GFR Calc LAB L501.1115 >60 mL/min Normal EST GFR - AA 70 Result Comment: GFR Calc LAB L501.1300 10-20 RATIO Normal BUN/CRE 19.5 LAB L501.1500 6.4-8.2 g/dL T Normal PROT 6.9 LAB L501.1800 3.2-5.0 g/dL Normal ALB 3.6 LAB L501.1950 2.2-4.2 g/dL Normal GLOB 3.3 LAB L501.2000 0.9-2.4 RATIO Normal A/G 1.1 LAB L501.2200 8.5-10.1 mg/dL CA Normal 9.1 LAB L501.4100 15-37 U/L Normal AST 18 LAB L501.4305 45-117 U/L Normal ALK P 50 LAB L501.4405 16-61 U/L Normal ALT 28 LAB L501.4600 0.20-1.00 mg/dL T Normal BILI 0.50 LAB L501.5300 136-145 mmol/L NA Normal 143 LAB L501.5600 3.5-5.1 mmol/L K Normal 3.8 LAB L501.5900 98-107 mmol/L CL Normal 104 LAB L501.6100 21.0-32.0 mmol/L Normal CO2 31.0 LAB L501.6200 5-15 Normal GAP 8 Performed By: #### L500.4050, L501.9520 #### [facility] [address] [facility] [place], [place], [id number] THYROID STIM HORMONE Collected: 01/12/2018 Status: F Source: [facility] (TSH) 4:05 PM [facility] REPOSITORY TYPE CODE TESTS RESULT OUT OF RANGE REFERENCE UNITS LAB L501.9520 0.358-3.74 uIU/mL Normal TSH 1.11 Performed By: #### L500.4050, L501.9520 #### [facility] [address] [place], [address] VITAMIN D,25 HYDROXY Collected: 01/12/2018 Status: F Source: [facility] 4:05 PM [facility] REPOSITORY TYPE CODE TESTS RESULT OUT OF REFERENCE UNITS RANGE LAB L506.1000 29.95-100.01 ng/mL Low Vitamin D 21.5 25-OH Result Comment: Vitamin D 25(OH) Status Range Deficiency <20 ng/mL (50nmol/L) Insuffciency 20 - 30 ng/mL (50 - 75 nmol/L) Sufficiency 30 - 100 ng/mL (75 - 250 nmol/L) Toxicity >100 ng/mL (>250 nmol/L) Performed By: #### L506.1000 #### [facility] [address] [place], [address] BASIC METABOLIC Collected: 01/10/2018 Status: F Source: [facility] PROFILE (BMP) 4:15 PM [facility] REPOSITORY TYPE CODE TESTS RESULT OUT OF RANGE REFERENCE UNITS LAB L501.0100 74-106 mg/dL Normal GLU 103 Result Comment: Fasting Glucose result from 100 to 125 mg/dL suggests IMPAIRED HOMEOSTASIS per A.D.A. criteria. Please note revised GLUCOSE reference range effective 2017. LAB L501.1000 7-18 mg/dL High BUN 19 LAB L501.1100 0.70-1.30 mg/dL Normal CREAT,SERUM 1.11 Result Comment: The validity of the calculated GFR AND GFRAA in patients over 70 years has not been determined. Clinical correlation is essential. LAB L501.1110 >60 mL/min Normal EST GFR 68 Result Comment: Non- GFR Calc LAB L501.1115 >60 mL/min Normal EST GFR - AA 82 Result Comment: GFR Calc LAB L501.1255 ml/min Normal Estimated CRCL 51.35 LAB L501.1300 10-20 RATIO Normal BUN/CRE 17.1 LAB L501.2200 8.5-10 mg/dL Normal .1 CA 9.2 LAB L501.5300 136-14 mmol/L Normal 5 NA 142 LAB L501.5600 3.5-5. mmol/L Normal 1 K 4.2 LAB L501.5900 98-107 mmol/L Normal CL 103 LAB L501.6100 21.0-3 mmol/L High 2.0 CO2 33.0 LAB L501.6200 5-15 Normal GAP 6 Performed By: #### L500.2500 #### [facility] [address] [place], [place], [address] CBC-COMPLETE BLOOD CNT Collected: 01/10/2018 Status: F Source: [facility] NO DIFF 4:15 PM [facility] REPOSITORY TYPE CODE TESTS RESULT OUT OF RANGE REFERENCE UNITS LAB L100.1000 4.4-11.0 K/mm3 High WBC 14.4 LAB L100.1200 4.6-6.2 M/mm3 Low RBC 3.72 LAB L100.1300 13.0-16.5 g/dl Normal HGB 13.5 LAB L100.1400 40-54 % Low HCT 39.3 LAB L100.1500 80-94 fL High MCV 105.6 LAB L100.1600 27.0-32.0 pg High MCH 36.3 LAB L100.1700 32-36 g/gl Normal MCHC 34.4 LAB L100.1810 11.6-14.6 % Normal RDW CV 13.6 LAB L100.1820 35.1-43.9 fl High RDW SD 51.4 LAB L100.1900 150-450 K/mm3 Normal PLT 150 LAB L100.2000 6.2-12.0 fl High MPV 12.2 Performed By: #### L100.0500 #### [facility] [address] [place], [place], [id number] Observed: 01/10/2018 Status: F Source: [facility] MRSA/SAID SCREEN 4:15 PM [facility] REPOSITORY MRSA/SAID SCRN S. AUREUS S. aureus Positive MRSA MRSA Negative Performed By: #### M100.651 #### [facility] [place], [place], [id number] RIBS UNI MIN 3V Observed: 01/09/2018 Status: F Source: [facility] W/PA CHEST 2:58 PM [facility] REPOSITORY [facility] Imaging Services [address] [place] [address] Ribs Uni Min 3V w/PA Chest MR#: [id number] Acct: [id number] Name: ISA MILES Rep #: [id number] : 1935 M 82 From: Damian Caban MD PCP: Darshana Gibson MD, Chi Status: REG CLI Study: Ribs Uni Min 3V w/PA Chest Date of Exam: 01/09/18 Exam# [id number] Ordering Dr: Darshana Gibson MD STUDY: X-RAY - UNILATERAL RIBS ( RIGHT ) WITH CHEST REASON FOR EXAM: Male, 82 years old. Right-sided rib pain TECHNIQUE - RIBS: 5 view(s) of the ribs. TECHNIQUE - CHEST: Single PA view of the chest. COMPARISON: None. FINDINGS - RIBS: Bones are demineralized with minimally displaced right lateral 10th and 11th rib fractures. No pleural thickening or pneumothorax. FINDINGS - CHEST: There are interstitial fibrotic changes of the lungs. There is no demonstrated pleural abnormality. Sternal cerclage wires and vascular clips are present from a prior sternotomy and coronary artery bypass graft procedure (CABG). Normal mediastinum and francis. Normal visualized pulmonary arteries. There is atherosclerotic calcification of the aortic arch with tortuosity. There are diffuse degenerative changes of the visualized thoracic spine. There is degenerative osteoarthritis of the bilateral shoulders. There is no demonstrated abnormality of the visualized soft tissue structures of the upper abdomen. RAD/Ribs Uni Min 3V w/PA Chest IMPRESSION: RIBS: Acute minimally displaced right lateral 10th and 11th rib fractures without pleural thickening or pneumothorax CHEST: Chronic interstitial changes, no superimposed acute pulmonary process Electronically Signed: Ian Caban MD at 15:40 EDT , Service support , CC: Darshana Gibson MD Human Intelligence: Signed CARDIOLOGY VISIT Observed: 12/30/2017 Status: F Source: [place] REPORT 12:33 PM [facility] REPOSITORY [facility] [address] [place] [address] [address] [place] [address] OFFICE VISIT Date of Service: 12/30/17 MR#: [id number] Acct: [id number] Name: ISA MILES Rep #: [id number] : 1935 Provider: Juan Jeronimo MD Age/Sex: 82/M Location: [facility] Status: Signed HPI HPI Details: ISA MILES, is a 82 M who presents to the office today for for outpatient cardiovascular follow-up and preoperative cardiovascular assessment. He has a history of underlying CAD, PCI, CABG, atrial dysrhythmia ablation, superimposed upon hyperlipidemia and hypertension. He states since his last outpatient cardiovascular visit he has been doing well. He denies any ongoing issues of classic angina pectoris at this time nor has he had use any nitroglycerin sublingual. There has been no issues of overt CHF or pulmonary edema. There has been no near syncope or syncope. He states he is due for upcoming left knee replacement surgery. He believes this is tentatively scheduled for 02/06/2018. He states he has not yet had any preoperative testing performed. He did have an ECG in the office today. He was noted to have sinus rhythm/sinus bradycardia with an incomplete left bundle branch block pattern. In comparison to a previous ECG from 08/23/2016 there are similar type findings. Intake Vital Signs12/30/17 Height 5 ft 11 in 12/30/17 Weight: 227 lb 12/30/17 Body Mass Index (BMI) 31.6 12/30/17 Blood Pressure 124/68 Intake Visit Reasons: 6 M FU Allergies No Known Allergies Allergy (Verified 12/30/17 11:39) Medications Acetaminophen [Tylenol Extra Strength] 500 mg PO Q4H PRN PRN 03/06/16 [History Confirmed 12/30/17] Aspirin 81 mg PO DAILY 03/06/16 [History Confirmed 12/30/17] Diclofenac Sodium 75 mg PO BID 03/06/16 [History Confirmed 12/30/17] Oxycodone HCl/Acetaminophen [Percocet 5/325] 1 tab PO Q4H PRN PRN 03/06/16 [History Confirmed 12/30/17] Tamsulosin HCl [Flomax] 0.4 mg PO DAILY 09/10/16 [History Confirmed 12/30/17] Trazodone HCl 150 mg PO QHS 03/06/16 [History Confirmed 12/30/17] Potassium Chloride [K-Dur] 20 meq PO DAILY 03/29/16 [History Confirmed 12/30/17] cyclobenzaprine 10 mg tablet 10 mg PO TID tab 06/23/17 [History Confirmed 12/30/17] gabapentin 300 mg capsule 300 mg PO TID cap 06/23/17 [History Confirmed 12/30/17] hydrochlorothiazide 25 mg tablet 25 mg PO QDAY 90 Days #90 tab 06/23/17 [History Confirmed 12/30/17] isosorbide dinitrate 10 mg tablet 5 mg PO ONCE 30 Days #15 tab 06/23/17 [History Confirmed 12/30/17] meloxicam 7.5 mg tablet 7.5 mg PO BID 90 Days #180 tab 06/23/17 [History Confirmed 12/30/17] metoprolol tartrate 25 mg tablet 25 mg PO BID tab 06/23/17 [History Confirmed 12/30/17] pantoprazole 40 mg tablet,delayed release 40 mg PO QDAY 90 Days #90 tab 06/23/17 [History Confirmed 12/30/17] ranolazine ER 1,000 mg tablet,extended release,12 hr 1,000 mg PO BID tab 06/23/17 [History Confirmed 12/30/17] clopidogrel 75 mg tablet 75 mg PO DAILY #90 tab 06/28/17 [Rx Confirmed 12/30/17] pravastatin 80 mg tablet 80 mg PO QHS #30 tab 10/12/17 [Rx Confirmed 12/30/17] amlodipine 10 mg tablet 5 mg PO QDAY #15 tab 12/19/17 [Rx Confirmed 12/30/17] nitroglycerin 0.4 mg sublingual tablet 0.4 mg SUBLINGUAL Q5M PRN #25 tab 12/30/17 [Rx Confirmed 12/30/17] [facility] Medical History Prinzmetal angina (Chronic) HLD (hyperlipidemia) (Chronic) HTN (hypertension) (Chronic) CAD (coronary artery disease) (Chronic) Malignant pericardial effusion (Chronic) Atrial flutter (Chronic) Palpitations (Chronic) Shortness of breath (Chronic) Precordial chest pain (Chronic) Aortocoronary bypass status (Chronic) History of percutaneous transluminal coronary angioplasty (Chronic) Abnormal result of cardiovascular function study, unspecified (Chronic) Pain in limb (Chronic) Dizziness and giddiness (Chronic) Fatigue (Chronic) Mild aortic insufficiency (Chronic) Pain in left shoulder (Chronic) Atherosclerosis of coronary artery bypass graft(s), unspecified, with other forms of angina pectoris (Chronic) Intermittent claudication (Chronic) Surgical History Hx of CABG (Acute 05/2005) H/O cardiac radiofrequency ablation (Chronic 10/2006) History of PTCA (Chronic) History of arthroscopy (Chronic 07/2011) History of left heart catheterization (LHC) (Chronic 09/2007) Family History Father CAD (coronary artery disease) CHF (congestive heart failure) Mother Heart disease Brother Diabetes Cancer Hx of CABG CAD (coronary artery disease) Sister COPD (chronic obstructive pulmonary disease) Diabetes Social History Smoking Status: Never smoker alcohol intake: never substance use type: does not use caffeine: Yes Type: coffee what type of physical activity do you participate in: none seatbelt use: always do you feel safe at home: Yes ROS Const Const: Negative for fatigue, weakness, weight gain, weight loss, frequent falls or excessive sweating Eyes Eyes: Negative for change in vision, blurry vision or transient loss of vision ENT ENT: Positive for dizziness (if I bend over too far); negative for balance problems Cardio Chest Pain: Yes Character: other (twinge, soreness in left chest) Location: left chest Duration: brief Exacerbation: activity, rest Palpitations: No Edema: Bilateral (bilat pedals on occasion) Muscle aches with walking: None Resp Respiratory: Positive for SOB with activity (occasional ); negative for SOB at rest GI GI: Negative vomiting or vomiting blood/hematemesis : Negative for hematuria Musc Musc: Positive for muscle weakness (bilat LE in therapy); negative for balance problems, muscle aches/ myalgia or joint pain Skin Skin: Negative non-healing lesions or rash Neuro Neuro: Positive for dizziness (if I bend over too far); negative for weakness, blurry vision, lightheadedness, frequent falls or orthostatic symptoms Ariel Hematologic/Lymphatic: Negative for easy bleeding Endo Endo: Negative for fatigue or excessive sweating Psych Psych: Negative for anxiety or depression Allergy Allergy/Immunology: Negative for hives, Negative for rash Cardiology Exam Const Appearance: cooperative, no acute distress and well developed Orientation: alert, awake and oriented x3 Head Head: normocephalic and atraumatic Mouth: moist mucous membranes Eyes General: appearance normal, both eyes and all related structures Conjunctivae: conjunctivae normal Pupils: PERRL EOM: EOM intact bilaterally Neck Neck: normal visual inspection, no lymphadenopathy and no JVD Carotids: Negative bruit Neck Mass: Negative Neck mass Chest Chest inspection: normal inspection of the chest, symmetric chest movement and midline sternotomy incision Auscultation: Bilateral: Diminished Lung Sounds Cardio Palpation: normal PMI Rate: regular rate Rhythm: regular rhythm Heart sounds: S1 normal, S2 normal and murmur; negative rub or gallop Murmur: Grade 2/6, mid systolic, soft and LLSB GI GI: normal to inspection, soft, no hepatosplenomegaly and bowel sounds present; negative tender Neuro General: alert, awake, oriented x3, CN's II-XI intact bilaterally and moves all extremities Extremities Pulses: Normal: Right Radial Pulse, Left Radial Pulse, Diminished: Right Posterior Tibial Pulse, Left Posterior Tibial Pulse Lower Extremity Edema: None: Bilateral Psych Psychological: normal affect Supplemental Info He did have a transthoracic echocardiogram on 10/30/[address] [facility]. At that time the left ventricle was normal with an LVEF of 65%, the right ventricle was moderately dilated, there was severe left atrial enlargement and moderate right atrial enlargement, mild MR/TR, mild aortic valve stenosis, and the estimated RV systolic pressure was 45 mmHg compatible with pulmonary hypertension. He had a previous pharmacologic stress nuclear imaging study performed on 11/16/2012. At that point in time an area of previous myocardial injury/infarction involving portions of the basal anteroseptal and basal inferoseptal segments with mild dhara- infarct related myocardial ischemia involving a portion of the mid inferoseptal segment cannot be excluded. The gated LVEF was 64%. His most recent diagnostic cardiac catheterization was performed at [facility] on 03/30/2016. The results are as noted below. 1. Elevated left ventricular end-diastolic pressure compatible with decreased diastolic compliance 2. Left ventricle: A. Normal left ventricular size, wall motion, and systolic function B. Estimated LVEF is 60% 3. Left main coronary artery: A. Angiographically normal 4. Left anterior descending coronary artery: A. 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 Diagonal branch #1: A. Angiographically normal 6. Diagonal branch #2: A. Proximally subtotally occluded followed by mid occlusion 7. Left circumflex coronary artery: A. Large codominant to dominant vessel B. Proximal to mid stent segment patent with minimal luminal irregularities C. Distal vessel: Terminating as small caliber vessels with subtotal occlusions 8. Right coronary artery: A. Previously documented as ostially occluded and not reevaluated during this evaluation 9. VAZQUEZ to the LAD: A. Patent with no angiographically significant disease 10. SVG to the diagonal branch: A. Previously documented as occluded and not reevaluated during this evaluation 11. SVG to the RCA: A. Previously documented occluded and not reevaluated during this evaluation 12. Aortic root: A. Possible dilatation 13. Mitral valve: A. Mild mitral valve regurgitation He had a previous PCI procedure performed at [facility] on 10/19/2007. At that point time he had an LCx PTCA/stent procedure. His previous CABG was performed at [facility] on 2004. The summary is as noted below. OPERATION: Three-vessel coronary artery bypass grafting utilizing internal mammary to the anterior descending, saphenous vein grafting to the diagonal branch of the right coronary artery as well as diagonal branch of the anterior descending, with second cardiopulmonary bypass utilizing right femoral artery and right atrium with core cooling and repair of ascending aortic dissection utilizing cold circulatory arrest with 28 mm tube graft to the ascending aorta and reimplantation of saphenous vein grafts to the right coronary artery and diagonal branch to the tube graft. His most recent electrophysiology study was performed at [facility] on 10/26/2006. At that time he had a complex but successful cavo-tricuspid isthmus-dependent atrial flutter ablation requiring multiple RV lesions along the isthmus with bidirectional block confirmed. His previous like physiology study was performed at [facility] on 06/23/2005. At that time he had atrial flutter mapping confirming a type I mechanism with catheter ablation with inability to eliminate caval tricuspid isthmus conduction due to grossly abnormal anatomy in the isthmus. He had a chest CT scan performed at [facility] on 10/29/2015. Per the radiology report there were no acute abnormalities noted. There was no evidence of thromboembolic disease, there was no evidence of thoracic aortic dissection. Assessment AND Plan 1. Coronary artery disease involving [place] coronary artery of [place] heart without angina pectoris I25.10 Plan At the present time he appears to be doing well without any acute symptomatic changes, etc. He will continue his risk factor modification and medical management. It was not felt he required additional cardiac diagnostic studies or therapeutic intervention at this time. 2. H/O percutaneous transluminal coronary angioplasty Z98.61 Plan He does have a history of PCI as noted above. Again he appears to be doing well at this time without acute symptoms. He will continue medical management and follow-up. Orders Orders: 3. Postsurgical aortocoronary bypass status Z95.1 Plan His previous CABG is as noted above. He has been followed. He will continue medical care and follow. Orders Orders: 4. Atrial flutter I48.92 Plan He has undergone atrial flutter evaluation of both [facility] and [facility]. His most recent studies are as noted above. He appears to be remaining in sinus rhythm. He will continue his medical management and follow-up. 5. Pure hypercholesterolemia E78.00 Plan He states his primary care physician has been monitoring his lipid labs. He believes they have been under good control. He will continue risk factor modification and medical therapy. 6. Essential hypertension I10 Plan His blood pressure appears to be reasonably well-controlled at this time. He will continue his current medical therapy and follow-up. 7. Pre-operative cardiovascular examination Z01.810 Plan At the moment it does not appear he requires further cardiac diagnostic studies or therapeutic intervention prior to upcoming noncardiovascular surgery. He should have close monitoring of his heart rate, blood pressure, and cardiac rhythm during and after his surgical procedure. An attempt should be made to avoid IV volume overload that could bring out CHF/pulmonary edema during or after his surgical procedure. If his hemoglobin drops postoperatively then depending upon its level in his clinical status he may need PRBC transfusions. He should continue his medical management in and around the time of his surgical procedure as best as possible. He can interrupt his clopidogrel/Plavix therapy approximately 5 days before his procedure and restarted as soon as possible after his procedure. He is at an increased risk for adverse cardiovascular events from noncardiac surgery based on his cardiovascular history. However hopefully with a stable clinical cardiovascular status, with close monitoring, and on his medications, his risks can be kept at a minimum. Plan Detail Other Orders Orders: Other Medications New: Additional Comments The above was discussed with the patient. He was agreeable to this approach. Thank you for allowing me to participate in the care of your patient. Please don't hesitate to call if any issues arise. This note was generated using a voice recognition system and there may be incorrect words, spelling or punctuation that were not noted when reviewing the office note prior to saving. Follow Up 6 Months (PFM) Coding Level of Care Code Off vis,est,level 4 Diagnoses Coronary artery disease involving [place] coronary artery of [place] heart without angina pectoris I25.10 Associated angina: without angina Coronary Disease-Associated Artery/Lesion type: [place] artery [place] vs. transplanted heart: [place] heart H/O percutaneous transluminal coronary angioplasty Z98.61 Postsurgical aortocoronary bypass status Z95.1 Atrial flutter I48.92 Pure hypercholesterolemia E78.00 Hyperlipidemia type: pure hypercholesterolemia Essential hypertension I10 Hypertension type: essential hypertension Pre-operative cardiovascular examination Z01.810 Coding Level of Care Code Off vis,est,level 4 Diagnoses Coronary artery disease involving [place] coronary artery of [place] heart without angina pectoris I25.10 Associated angina: without angina Coronary Disease-Associated Artery/Lesion type: [place] artery [place] vs. transplanted heart: [place] heart H/O percutaneous transluminal coronary angioplasty Z98.61 Postsurgical aortocoronary bypass status Z95.1 Atrial flutter I48.92 Pure hypercholesterolemia E78.00 Hyperlipidemia type: pure hypercholesterolemia Essential hypertension I10 Hypertension type: essential hypertension Pre-operative cardiovascular examination Z01.810 12/30/17 1233 <Electronically signed by Juan Jeronimo MD> Date Juan Jeronimo MD Cosigner Signature: Date (if applicable) CC: Peter Smith DO; Darshana Gibson MD CARDIOLOGY VISIT Observed: 11/15/2017 Status: F Source: [facility] REPORT 4:59 PM [facility] REPOSITORY [facility] [address] [place] [address] OFFICE VISIT Date of Service: 06/28/17 MR#: [id number] Acct: [id number] Name: ISA MILES Rep #: [id number] : 1935 Provider: Leeanna Guy Age/Sex: 81/M Location: [facility] Status: Signed HPI 4 M FU: Details: ISA MILES, is a 81 M who presents to the office today for coronary artery disease with bypass surgery with an VAZQUEZ to LAD, SVG to the RCA and diagonal branch of the LAD. He also had repair of his aortic dissection and graft with reimplementation of the SVG to the RCA and diagonal. He also has a history of atrial fibrillation post ablation, cardiomyopathy, hypertension, hyperlipidemia and sinus bradycardia. Patient did have a chest CTA in 2016. No acute abnormality was seen. Heart catheterization in 2016 demonstrated left main angiographically normal, LAD status post septal equipment cleaner and tester the first diagonal, second diagonal and the LAD appears to be occluded with the remainder of the vessel filling from the LAD and a graft with no angiographically significant appearing distal disease to the graft. Diagonal branch #1 angiographically normal, diagonal branch #2 proximally subtotal occluded followed by mid occlusion. Left circumflex large dominant proximal to mid stent segment patent, RCA previously documented as ostial occluded and not reevaluated. VAZQUEZ to the LAD patent. SVG to the diagonal previously documented as occluded not reevaluated, SVG to the RCA previously documented as occluded and not reevaluated. Medical management was recommended. Echocardiogram in 2016 demonstrated an ejection fraction of 65%. Moderately dilated right ventricle. Left atrium severely enlarged. Right atrium moderately enlarged. Mild mitral valve insufficiency. Mild tricuspid insufficiency. RVSP 45 mmHg. Mild aortic stenosis. From a cardiac standpoint patient is doing well. He has not needed to use any nitroglycerin. He does not have any worsening shortness of breath. He does not have any chest discomfort. He does not have any lightheadedness or dizziness. He does not have any palpitations. He does not have any lower extremity edema. His blood pressure is slightly elevated today. However he does have multiple questions regarding his medications. 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 Required: No Accompanied by: None Is patient in pain?: No Allergies No Known Allergies Allergy (Verified 06/28/17 14:17) Medications Acetaminophen [Tylenol Extra Strength] 500 mg PO Q4H PRN PRN 03/06/16 [History Confirmed 06/28/17] Aspirin 81 mg PO DAILY 03/06/16 [History Confirmed 06/28/17] Diclofenac Sodium 75 mg PO BID 03/06/16 [History Confirmed 06/28/17] Nitroglycerin [Nitrostat] 0.4 mg SUBLINGUAL Q5M PRN 03/06/16 [History Confirmed 06/28/17] Oxycodone HCl/Acetaminophen [Percocet 5/325] 1 tab PO Q4H PRN PRN 03/06/16 [History Confirmed 06/28/17] Tamsulosin HCl [Flomax] 0.4 mg PO DAILY 03/06/16 [History Confirmed 06/28/17] Trazodone HCl 150 mg PO QHS 03/06/16 [History Confirmed 06/28/17] Potassium Chloride [K-Dur] 20 meq PO DAILY 03/29/16 [History Confirmed 06/28/17] Pravastatin [Pravachol] 80 mg PO QHS 03/29/16 [History Confirmed 06/28/17] amlodipine 5 mg tablet 5 mg PO DAILY tab 06/23/17 [History Confirmed 06/28/17] cyclobenzaprine 10 mg tablet 10 mg PO TID tab 06/23/17 [History Confirmed 06/28/17] gabapentin 300 mg capsule 300 mg PO TID cap 06/23/17 [History Confirmed 06/28/17] hydrochlorothiazide 25 mg tablet 25 mg PO QDAY 90 Days #90 tab 06/23/17 [History Confirmed 06/28/17] isosorbide dinitrate 10 mg tablet 5 mg PO ONCE 30 Days #15 tab 06/23/17 [History Confirmed 06/28/17] meloxicam 7.5 mg tablet 7.5 mg PO BID 90 Days #180 tab 06/23/17 [History Confirmed 06/28/17] metoprolol tartrate 25 mg tablet 25 mg PO BID tab 06/23/17 [History Confirmed 06/28/17] pantoprazole 40 mg tablet,delayed release 40 mg PO QDAY 90 Days #90 tab 06/23/17 [History Confirmed 06/28/17] ranolazine ER 1,000 mg tablet,extended release,12 hr 1,000 mg PO BID tab 06/23/17 [History Confirmed 06/28/17] clopidogrel 75 mg tablet 75 mg PO DAILY #90 tab 06/28/17 [Rx Confirmed 06/28/17] Ejection fraction %: 65 to 70 PFSH Medical History Prinzmetal angina (Chronic) HLD (hyperlipidemia) (Chronic) HTN (hypertension) (Chronic) CAD (coronary artery disease) (Chronic) Malignant pericardial effusion (Chronic) Atrial flutter (Chronic) Palpitations (Chronic) Shortness of breath (Chronic) Precordial chest pain (Chronic) Aortocoronary bypass status (Chronic) History of percutaneous transluminal coronary angioplasty (Chronic) Abnormal result of cardiovascular function study, unspecified (Chronic) Pain in limb (Chronic) Dizziness and giddiness (Chronic) Fatigue (Chronic) Mild aortic insufficiency (Chronic) Pain in left shoulder (Chronic) Atherosclerosis of coronary artery bypass graft(s), unspecified, with other forms of angina pectoris (Chronic) Intermittent claudication (Chronic) Chest pain (Inactive) Surgical History Hx of CABG (Acute 05/2005) H/O cardiac radiofrequency ablation (Chronic 10/2006) History of PTCA (Chronic) History of arthroscopy (Chronic 07/2011) History of left heart catheterization (LHC) (Chronic 09/2007) Family History Father CAD (coronary artery disease) CHF (congestive heart failure) Mother Heart disease Brother Diabetes Cancer Hx of CABG CAD (coronary artery disease) Sister COPD (chronic obstructive pulmonary disease) Diabetes Social History Smoking Status: Never smoker alcohol intake: never substance use type: does not use caffeine: Yes Type: coffee what type of physical activity do you participate in: none seatbelt use: always do you feel safe at home: Yes ROS Const Const: Negative for weakness, fatigue, fever(s) or headache(s) Eyes Eyes: Negative for blind spots, loss of peripheral vision or transient loss of vision ENT ENT: Negative for headache(s), Negative for dizziness, Negative for tinnitus, Negative for Nosebleed/epistaxis Cardio Chest Pain: No Palpitations: Positive for No Edema: None Muscle aches with walking: None Resp Respiratory: Negative for SOB with activity, SOB at rest or SOB orthopnea\SOB lying down GI GI: Negative nausea, vomiting, heartburn or vomiting blood/hematemesis : Negative for hematuria Musc Musc: Negative for muscle aches/ myalgia Neuro Neuro: Negative for weakness, Negative for headache(s), Negative for dizziness, Negative for near syncope, Negative for syncope, Negative for lightheadedness Ariel Hematologic/Lymphatic: Negative for easy bleeding Endo Endo: Negative for fatigue Cardiology Exam Const Appearance: cooperative, no acute distress and well developed Orientation: alert, awake and oriented x3 Head Head: normocephalic and atraumatic Mouth: moist mucous membranes Eyes General: appearance normal, both eyes and all related structures Conjunctivae: conjunctivae normal Pupils: PERRL EOM: EOM intact bilaterally Neck Neck: normal visual inspection, no lymphadenopathy and no JVD Carotids: Negative bruit Neck Mass: Negative Neck mass Chest Chest inspection: normal inspection of the chest, symmetric chest movement and midline sternotomy incision Auscultation: Bilateral: Diminished Lung Sounds Cardio Palpation: normal PMI Rate: regular rate Rhythm: regular rhythm Heart sounds: S1 normal, S2 normal and murmur; negative rub or gallop Murmur: Grade 2/6, mid systolic, soft and LLSB GI GI: normal to inspection, soft, no hepatosplenomegaly and bowel sounds present; negative tender Neuro General: alert, awake, oriented x3, CN's II-XI intact bilaterally and moves all extremities Extremities Pulses: Normal: Right Radial Pulse, Left Radial Pulse, Diminished: Right Posterior Tibial Pulse, Left Posterior Tibial Pulse Lower Extremity Edema: None: Bilateral Psych Psychological: normal affect Assessment AND Plan 1. Coronary artery disease involving [place] coronary artery of [place] heart without angina pectoris I25.10; I25.10; I25.10 Plan - SULAIMAN Rico Stable, from a cardiac standpoint patient does not have any symptoms of angina. We recommend that they continue with current aggressive medical management and risk factor modification. Patient is on antianginals. Patient Instructions - SULAIMAN Rico Bring in all of your medication bottles to your nurse visit, will will go over all of them with you. 2. Essential hypertension I10; I10; I10 Plan - SULAIMAN Rico Blood pressure is elevated today. However it is noted that he is not on his hydrochlorothiazide. There is some confusion over several of his medications. Have asked that he bring all of his bottles to a nurse visit and we will review medications with him. 3. Pure hypercholesterolemia E78.00; E78.00; E78.00; E78.0 Plan - SULAIMAN Rico These are managed by his primary care doctor. Plan Detail Other Medications New: Refilled: Additional Comments - SULAIMAN Rico The above patient was discussed with Dr. Brito in Dr. Jeronimo's absence, he agrees with plan of care. Thank you for allowing us to participate in patient's plan of care, if you have any questions please do not hesitate to call. This note was generated using a voice recognition system and there may be incorrect words, spelling or punctuation errors that were not noted when reviewing the office note prior to saving. Follow Up 6 Months (PFM) 06/28/17 (Schedule for Nurse visit to review all medications. He will need 30 minutes for this. He will bring in all of his pills.) 06/30/17 0911 <Electronically signed by Leeanna HILARIO> Date Leeanna HILARIO 06/30/17 0928<Electronically signed by Ritchie Brito MD> Cosigner Signature: Date (if applicable) Ritchie Brito MD CC: Darshana Gibson MD CBC W/DIFF, AUTOMATED Collected: 07/25/2017 Status: F Source: [place] 2:59 PM [facility] REPOSITORY TYPE CODE TESTS RESULT OUT OF RANGE REFERENCE UNITS LAB L100.1000 4.4-11.0 K/mm3 Normal WBC 6.3 LAB L100.1200 4.6-6.2 M/mm3 Low RBC 3.87 LAB L100.1300 13.0-16.5 g/dl Normal HGB 14.6 LAB L100.1400 40-54 % Normal HCT 40.9 LAB L100.1500 80-94 fL High MCV 105.7 LAB L100.1600 27.0-32.0 pg High MCH 37.7 LAB L100.1700 32-36 g/gl Normal MCHC 35.7 LAB L100.1810 11.6-14.6 % Normal RDW CV 14.0 LAB L100.1820 35.1-43.9 fl High RDW SD 54.2 LAB L100.1900 150-450 K/mm3 Normal PLT 155 LAB L100.2000 6.2-12.0 fl Normal MPV 11.8 LAB L100.2100 47-70 % Normal NEUT% 68.3 LAB L100.2200 19-41 % Low LY% 11.4 LAB L100.2300 0-10 % High MONO% 17.1 LAB L100.2400 0-5 % Normal EO% 2.7 LAB L100.2500 0-1 % Normal BASO% 0.2 LAB L100.2550 0.0-0.9 % Normal IM GRAN % 0.300 Result Comment: IG% - Immature Granulocytes (promyelocytes, myelocytes and metamyelocytes) > 1% indicates that a LEFT SHIFT is Present. LAB L100.2620 2.0-7.7 X10 3/uL Normal Absolute Neut 4.3 LAB L100.2720 0.83-4.51 X10 3/ul Low Absolute Lymph 0.72 Performed By: #### L100.0100 #### [facility] [place], [address] VITAMIN D,25 HYDROXY Collected: 07/25/2017 Status: F Source: JOSEPHINE 2:59 PM [facility] REPOSITORY TYPE CODE TESTS RESULT OUT OF REFERENCE UNITS RANGE LAB L506.1000 19.95-100.01 ng/mL Low Vitamin D 16.7 25-OH Result Comment: Vitamin D 25(OH) Status Range Deficiency <20 ng/mL (50nmol/L) Insuffciency 20 - 30 ng/mL (50 - 75 nmol/L) Sufficiency 30 - 100 ng/mL (75 - 250 nmol/L) Toxicity >100 ng/mL (>250 nmol/L) Performed By: #### L506.1000 #### [facility] [place], [address] COMPREHENSIVE METABOLIC Collected: 07/25/2017 Status: F Source: [facility] 2:59 PM [facility] REPOSITORY TYPE CODE TESTS RESULT OUT OF RANGE REFERENCE UNITS LAB L501.0100 70-110 mg/dL Normal GLU 77 LAB L501.1000 7-18 mg/dL Normal BUN 16 LAB L501.1100 0.70-1.30 mg/dL Normal 1.19 CREAT,SERUM Result Comment: The validity of the calculated GFR AND GFRAA in patients over 70 years has not been determined. Clinical correlation is essential. LAB L501.1110 >60 mL/min Normal EST GFR 63 Result Comment: Non- GFR Calc LAB L501.1115 >60 mL/min Normal EST GFR - AA 76 Result Comment: GFR Calc LAB L501.1300 10-20 RATIO Normal BUN/CRE 13.4 LAB L501.1500 6.4-8.2 g/dL T Normal PROT 7.0 LAB L501.1800 3.2-5.0 g/dL Normal ALB 3.7 LAB L501.1950 2.2-4.2 g/dL Normal GLOB 3.3 LAB L501.2000 0.9-2.4 RATIO Normal A/G 1.1 LAB L501.2200 8.5-10.1 mg/dL CA Normal 8.9 LAB L501.4100 15-37 U/L Normal AST 17 LAB L501.4305 45-117 U/L Normal ALK P 45 LAB L501.4405 16-61 U/L Normal ALT 24 Result Comment: Please note revised ALT reference range effective 2017. LAB L501.4600 0.20-1.00 mg/dL Normal T BILI 0.50 LAB L501.5300 136-145 mmol/L Normal NA 141 LAB L501.5600 3.5-5.1 mmol/L Normal K 3.8 LAB L501.5900 98-107 mmol/L Normal CL 103 LAB L501.6100 21.0-32.0 mmol/L Normal CO2 32.0 LAB L501.6200 5-15 Normal GAP 6 Performed By: #### L500.4050, L501.9520 #### [facility] [address] [place], [address] THYROID STIM HORMONE Collected: 07/25/2017 Status: F Source: JOSEPHINE (TSH) 2:59 PM [facility] REPOSITORY TYPE CODE TESTS RESULT OUT OF RANGE REFERENCE UNITS LAB L501.9520 0.358-3.74 uIU/mL Normal TSH 1.70 Performed By: #### L500.4050, L501.9520 #### [facility] [address] [place], [address] ALLERGIES ALLERGIES DATE TYPE / CODE NAME / CODE REACTION SEVERITY SOURCE 07/04/2018 Drug No Known Unknown [facility] Allergy/4160 Allergies/F00 Hospital 04129(SNOMED 8596930(RXNOR Repository CT) M) ENCOUNTERS ENCOUNTERS ADMIT/DISCHARGE ACCOUNT ADMITTING ENCOUNTER LOCATION SOURCE NUMBER CLASS 07/13/2018 [id number] Amb[place] 1 [facility] ing:[facility] Repository 07/04/2018/ [id number] Ambulatory BMSBuilding:B [place] [address] [facility] Repository 05/08/2018 [id number] Ambulatory [place] 5 [facility] ing:CT Repository 03/22/2018 [id number] Ambulatory [place] 0 [facility] ing:CT Repository 03/02/2018 [id number] Ambulatory [place] 7 [facility] ing:POLAB3 Repository 02/10/2018/ [id number] [place], Inpatient [place] 8 Rol[place] S. Encounter [facility] ing:RURoom: Repository SE423Vcr: 1 02/10/2018 [id number] [place] Ambulatory BMSBuilding:B [place] 4 [place] [facility] [place] Repository 02/10/2018 [id number] [place], Ambulatory BMSBuilding:B [place] 7 [place]. MS.[facility] Repository 02/10/2018 [id number] [place], Ambulatory BMSBuilding:B [place] 0 [place]. MS.[facility] Repository 02/10/2018 [id number] [place], Ambulatory BMSBuilding:B [place] 3 [place]. [facility] Repository 02/10/2018 [id number] [place], Ambulatory BMSBuilding:B [place] 9 [place]. MS.[facility] Repository 02/10/2018 [id number] [place], Ambulatory BMSBuilding:B [place] 7 [place] [address]. MS.[facility] Repository 02/10/2018 [id number] [place], Ambulatory BMSBuilding:B [place] 0 [place]. [facility] Repository 02/07/2018/ [id number] [place], Inpatient [place] 8 5 Peter Encounter [facility] ing:WB0Tfcb: Repository SA109Wtz: 1 02/06/2018 [id number] Inpatient [place] 4 [facility] ing:[facility] [place]ository 01/25/2018 [id number] Ambulatory BMSBuilding:B [place] [address] [facility] Repository 01/12/2018 [id number] Ambulatory [place] 6 [facility] ing:POLAB3 Repository 01/11/2018 [id number] Ambulatory BMSBuilding:B [place] [address] [facility] Repository 01/10/2018 [id number] Ambulatory BMSBuilding:W [place] 1 [facility] Repository 01/09/2018 [id number] Ambulatory [place] 7 [facility] ing:RAD Repository 12/30/2017/ [id number] Ambulatory BMSBuilding:B [place] [address] [facility] Repository 07/25/2017 [id number] Ambulatory [place] 2 [facility] ing:POLAB3 Repository 06/28/2017/ [id number] Ambulatory BMSBuilding:B [place] [address] [facility] Repository PAYERS PAYERS ENCOUNTER GUARANTOR PAYER SUBSCRIBER SOURCE 07/13/2018 ISA Finn Primary ISA [id number] Insurance:MEDICARE ROBERTSDOB: Community MAIN STAPPLE PART A [facility] [id number] Number: Repository [address]Gmf: 330 [id number] [phone] (HP) Date:2018-07-05 07/13/2018 Secondary ISA Burton Insurance:CIGNAPolicy JDDOB: Community Number: [id number] Hospital [id number] Repository Date:2714-96-30EY [address], [place] [address]WD: 07/13/2018 Tertiary NOT GIVENUNK [place] Insurance:SELF PAY [facility] Number: Effective Repository Date:2018-07-05 07/04/2018 ISA Finn Primary ISA [id number] Insurance:MEDICARE ROBERTSDOB: Community MAIN [address]LE PART A [id number] [place] Number: Repository [address]Qxm: 330 [id number] [phone] (HP) Date:2017-12-30 07/04/2018 Secondary ISA Burton Insurance:CIGNAPolicy JDDOB: [facility] Number: [id number] Hospital [id number] Repository Date:8386-00-56NS [address], [place] [address]WV: 07/04/2018 Tertiary NOT GIVENUNK [place] Insurance:SELF PAY [facility] Number: Effective Repository Date:2018-07-04 05/08/2018 ISA Finn Primary ISA [id number] Insurance:MEDICARE ROBERTSDOB: Community MAIN [place] PART A [facility] [id number], [place] Number: Repository [id number]: 330 [id number] [phone] (HP) Date:2018-05-08 05/08/2018 Secondary ISA Burton Insurance:CIGNAPolicy JDDOB: [facility] Number: [id number] Hospital [id number] Repository Date:0850-22-92FX [address], [place] [address]EZ: 05/08/2018 Tertiary NOT GIVENUNK [place] Insurance:SELF PAY [facility]: Effective Repository Date:2018-05-08 03/22/2018 ISA Finn Primary ISA Burton [id number] E Insurance:MEDICARE ROBERTSDOB: Community [address]IN [address] A [facility] [id number], [place] Number: Repository [address]Zqs: 330 [id number] [phone] () Date:2018-03-22 03/22/2018 Secondary ISA Burton Insurance:CIGNAPolicy ROBERTSDOB: Community Number: [id number] Hospital [id number] Repository Date:7689-25-02PQ [address], [place] [address]JP: 03/22/2018 Tertiary NOT GIVENUNK [place] Insurance:SELF PAY [facility] Number: Effective Repository Date:2018-03-22 03/02/2018 ISA Finn Primary ISA Burton [id number] E Insurance:MEDICARE ROBERTSDOB: Community MAIN [address] A [facility] [id number], [place] Number: Repository [address]Xzd: 330 [id number] [phone] () Date:2018-03-02 03/02/2018 Secondary ISA Burton Insurance:CIGNAPolicy ROBERTSDOB: Community Number: [id number] Hospital [id number] Repository Date:1762-64-31OJ [address]KXGKLJ[address], [place] [address]ZM: 03/02/2018 Tertiary NOT GIVENUNK [place] Insurance:SELF PAY [facility] Number: Effective Repository Date:2018-03-02 02/10/2018 ISA Finn Primary ISA [id number] E Insurance:MEDICARE ROBERTSDOB: Community [address] A [facility] [id number], [place] Number: Repository [address]Kbr: 330 [id number] [phone] () Date:2018-02-10 02/10/2018 Secondary ISA [place] Insurance:CIGNAPolicy ROBERTSDOB: Community Number: [id number] Hospital [id number] Repository Date:1175-65-50ZX [facility] [address]127[address]ANFRV[place]QE, [place] [address]FF: 02/10/2018 Tertiary NOT GIVENUNK [place] Insurance:SELF PAY [facility] Number: Effective Repository Date:2018-02-10 02/10/2018 ISA Finn Primary ISA Burton [id number] E Insurance:MEDICARE ROBERTSDOB: Community MAIN [address] A [facility] [id number], [place] Number: Repository [address]Foz: 330 [id number] [phone] () Date:2018-02-10 02/10/2018 Secondary ISA [place] Insurance:CIGNAPolicy ROBERTSDOB: Community Number: [id number] Hospital [id number] Repository Date:4734-27-37LV [address]ZGIVWGWIAKU, [place] [address]HG: 02/10/2018 Tertiary NOT GIVENUNK [place] Insurance:SELF PAY [facility] Number: Effective Repository Date:2018-02-10 02/10/2018 ISA Finn Primary ISA Burton [id number] E Insurance:MEDICARE ROBERTSDOB: Community [address]IN [address] A [facility] [id number], [place] Number: Repository [address]Pvg: 330 [id number] [phone] () Date:2018-02-10 02/10/2018 Secondary ISA [place] Insurance:CIGNAPolicy ROBERTSDOB: Community Number: [id number] Hospital [id number] Repository Date:4862-07-90FV [address]YYWCBIKNKNO, [place] [address]NZ: 02/10/2018 Tertiary NOT GIVENUNK [place] Insurance:SELF PAY [facility] Number: Effective Repository Date:2018-02-10 02/10/2018 ISA Finn Primary ISA Burton [id number] E Insurance:MEDICARE ROBERTSDOB: Community MAIN [address] A [facility] [id number] Number: Repository [address]Dsa: 330 [id number] [phone] () Date:2018-02-10 02/10/2018 Secondary ISA [place] Insurance:CIGNAPolicy HARISHB: Community Number: [id number] Hospital [id number] Repository Date:9492-69-11CK [address]UYHRKCWNDLH, [place] [address]UL: 02/10/2018 Tertiary NOT GIVENUNK [place] Insurance:SELF PAY [facility] Number: Effective Repository Date:2018-02-10 02/10/2018 ISA Finn Primary ISA [id number] Insurance:MEDICARE ROBERTSDOB: Community MAIN [address] A [facility] [id number] [facility] Number: Repository [address]Fme: 330 [id number] [phone] () Date:2018-02-10 02/10/2018 Secondary ISA [place] Insurance:CIGNAPolicy JDDOB: Community Number: [id number] Hospital [id number] Repository Date:1446-12-11OS [address]SWWMPSLJKLX, [place] [address]WG: 02/10/2018 Tertiary NOT GIVENUNK [place] Insurance:SELF PAY [facility] Number: Effective Repository Date:2018-02-10 02/10/2018 ISA Finn Primary ISA [id number] E Insurance:MEDICARE ROBERTSDOB: Community MAIN [address] A [facility] [id number] Medical Center[place] Number: Repository [address]Jxj: 330 [id number] [phone] () Date:2018-02-10 02/10/2018 Secondary ISA [place] Insurance:CIGNAPolicy JDDOB: Community Number: [id number] Hospital [id number] Repository Date:7452-95-31WY [address]VBYRTMBPSYN, [place] [address]IU: 02/10/2018 Tertiary NOT GIVENUNK [place] Insurance:SELF PAY [facility] Number: Effective Repository Date:2018-02-10 02/10/2018 ISA Finn Primary ISA [place] [id number] E Insurance:MEDICARE ROBERTSDOB: Community MAIN [address] A [facility] [id number], [place] Number: Repository [address]Min: 330 [id number] [phone] (HP) Date:2018-02-10 02/10/2018 Secondary ISA [place] Insurance:CIGNAPolicy JDDOB: Community Number: [id number] Hospital [id number] Repository Date:6311-12-59GI [address]SHQXEJKMDKC, [place] [address]NF: 02/10/2018 Tertiary NOT GIVENUNK [place] Insurance:SELF PAY [facility] Number: Effective Repository Date:2018-02-10 02/10/2018 ISA Finn Primary ISA [id number] E Insurance:MEDICARE ROBERTSDOB: Community MAIN ST[place]LE PART A [facility] [id number] [place] Number: Repository [id number]: 330 [id number] [phone] () Date:2018-02-10 02/10/2018 Secondary ISA Burton Insurance:CIGNAPolicy JDDOB: Community Number: [id number] Hospital [id number] Repository Date:8147-53-10[address]LLGOEBIWK, [place] [address]NP: 02/10/2018 Tertiary NOT GIVENUNK [place] Insurance:SELF PAY [facility] Number: Effective Repository Date:2018-02-10 02/07/2018 ISA Finn Primary ISA [id number] Insurance:MEDICARE ROBERTSDOB: Community MAIN STAPPLE PART A [facility] [id number] Number: Repository [id number]: 330 [id number] [phone] (HP) Date:2017-12-05 02/07/2018 Secondary ISA Burton Insurance:CIGNAPolicy JDDOB: Community Number: [id number] Hospital [id number] Repository Date:2197-04-61XY [address]WBPMPXSZKVR, [place] [address]GL: 02/07/2018 Tertiary NOT GIVENUNK [place] Insurance:SELF PAY [facility] Number: Effective Repository Date:2017-12-05 02/06/2018 ISA Finn Primary NOT GIVENUNK Josephinedenita [id number] Insurance:SELF PAY [place] Effective Repository [id number]: 330) Date:2017-12-16 [phone] () 01/25/2018 ISA Finn Primary ISA [id number] Insurance:MEDICARE ROBERTSDOB: Community [address]IN [address] PART A olicy [id number] [place] Number[facility] Repository [address]Dvq: 330 [id number] [phone] () Date:2018-01-25 01/25/2018 Secondary ISA Burton Insurance:CIGNAPolicy ROBERTSDOB: Community Number: [id number] Hospital [id number] Repository Date:9711-38-53BF [facility] [address]90[place]IFDAP[place]P, [place] [address]HU: 01/25/2018 Tertiary NOT GIVENUNK [place] Insurance:SELF PAY [facility] Effective Repository Date:2018-01-25 01/12/2018 ISA Finn Primary ISA [id number] Insurance:MEDICARE ROBERTSDOB: Community [address] A olicy [id number] [place] Number: Repository [address]Jvm: 330 [id number] [phone] () Date:2018-01-12 01/12/2018 Secondary ISA Burton Insurance:CIGNAPolicy ROBERTSDOB: Community Number: [id number] Hospital [id number] Repository Date:4437-03-59BP [facility] [place]OCJ[place], [place] [address]PU: 01/12/2018 Tertiary NOT GIVENUNK [place] Insurance:SELF PAY [facility] Number: Effective Repository Date:2018-01-12 01/11/2018 ISA Finn Primary ISA [id number] Insurance:MEDICARE ROBERTSDOB: Community [address] PART A [facility] [id number] [place] Number: Repository [address]Ljc: 330 [id number] [phone] () Date:2017-06-28 01/11/2018 Secondary ISA Burton Insurance:CIGNAPolicy JDDOB: Community Number: [id number] Hospital [id number] Repository Date:1544-91-61[address]QKQUDCDSANA, [place] [address]EP: 01/11/2018 Tertiary NOT GIVENUNK [place] Insurance:SELF PAY [facility] Number: Effective Repository Date:2017-06-28 01/10/2018 ISA Finn Primary ISA [id number] Insurance:MEDICARE ROBERTSDOB: Community [address] PART A [facility] [id number] [facility] Number[place] Repository [address]Tya: 330 [id number] [phone] () Date:2018-01-12 01/10/2018 Secondary ISA Burton Insurance:CIGNAPolicy JDDOB: Community Number: [id number] Hospital [id number] Repository Date:5395-20-12KO [address]WNQYMRHUFSD, [place] [address]DV: 01/10/2018 Tertiary NOT GIVENUNK [place] Insurance:SELF PAY [facility] Number: Effective Repository Date:2018-01-10 01/09/2018 ISA Finn Primary ISA [id number] Insurance:MEDICARE ROBERTSDOB: Community MA[address] PART A [facility] [id number] [facility] Number: Repository [id number]: 330 [id number] [phone] () Date:2018-01-09 01/09/2018 Secondary ISA Burton Insurance:CIGNAPolicy JDDOB: Community Number: [id number] Hospital [id number] Repository Date:9048-30-49RD [address]QSOHUESLDEQ, [place] [address]HK: 01/09/2018 Tertiary NOT GIVENUNK [place] Insurance:SELF PAY [facility] Number: Effective Repository Date:2018-01-09 12/30/2017 ISA iFnn Primary ISA Burton [id number] Insurance:MEDICARE ROBERTSDOB: Community [address] PART A [facility] [id number] Medical Center, [place] Number: Repository [address]Hel: 330 [id number] [phone] () Date:2017-10-24 12/30/2017 Secondary ISA Burton Insurance:CIGNAPolicy JDDOB: Community Number: [id number] Hospital [id number] Repository Date:6059-83-26CT [address]DTQVEAFQQEE, [place] [address]UI: 12/30/2017 Tertiary NOT GIVENUNK [place] Insurance:SELF PAY [facility] Number: Effective Repository Date:2017-12-30 07/25/2017 ISA Finn Primary ISA [id number] Insurance:MEDICARE ROBERTSDOB: Community MA[address] PART A [facility] [id number] [place] Number: Repository [address]Oec: 330 [id number] [phone] () Date:2017-07-25 07/25/2017 Secondary ISA Burton Insurance:CIGNAPolicy JDDOB: Community Number: [id number] Hospital [id number] Repository Date:9532-64-12YG [address]XZVSYKPUXJZ, [place] [address]NE: 07/25/2017 Tertiary NOT GIVENUNK [place] Insurance:SELF PAY [facility] Number: Effective Repository Date:2017-07-25 06/28/2017 ISA Finn Primary ISA Burton [id number] Insurance:MEDICARE ROBERTSDOB: Community MA[address] PART A [facility] [id number] Hospital [place] Number: Repository [address]Qww: 330 [id number] [phone] () Date:2017-05-29 06/28/2017 Secondary ISA Burton Insurance:CIGNAPolicy JDDOB: Community Number: [id number] Hospital [id number] Repository Date:7345-00-50IK [address]MHWJRULUVTY, [place] [address]KS: 06/28/2017 Tertiary NOT GIVENUNK [place] Insurance:SELF PAY [facility] Number: Effective Repository Date:2017-05-29
== END ==
PROVIDERS: Family Provider Family Medicine Geriatric Medicine; PCP Family Medicine Geriatric Medicine; Referring Provider Nurse Practitioner Family; Visit Provider Nurse Practitioner Family
DX: R06.00 Dyspnea, unspecified (principal); R06.02 Shortness of breath; I48.92 Unspecified atrial flutter; I35.1 Nonrheumatic aortic (valve) insufficiency; I10 Essential (primary) hypertension; E78.5 Hyperlipidemia, unspecified; Z95.1 Presence of aortocoronary bypass graft
CPT/HCPCS: 93306; Q9957; A4216; C8929

== ENCOUNTER → 2018-07-25 15:36 | Outpatient (CLI) | payer MEDICARE, OTHER, SELFPAY ==
[2018-07-04 15:54] VITALS: BMI 33.3
[2018-07-25 16:58] LABS: Absolute Lymphocyte Count 0.72 X10^3/ul (0.83-4.51); Absolute Neutrophil Count 3.6 X10^3/uL (2.0-7.7); Basophil# 0.02 X10^3/uL; Basophil% 0.4 % (0-1); Eosinophil# 0.12 X10^3/uL; Eosinophils% 2.3 % (0-5); Hematocrit 40.5 % (40-54); Hemoglobin 13.1 g/dl (13.0-16.5); Lymphocyte # 0.72 X10^3/ul (4.0); Lymphocyte % 13.9 % (19-41); Mean Corp Hgb Conc 32.3 g/gl (32-36); Mean Corpuscular Hgb 34.8 pg (27.0-32.0); Mean Corpuscular Volume 107.7 fL (80-94); Mean Platelet Vol. 12.5 fl (6.2-12.0); Monocyte# 0.69 X10^3/uL; Monocyte% 13.3 % (0-10); Neutrophil # 3.63 X10^3/uL (2.7-7.7); Neutrophil % 69.9 % (47-70); Platelet Count 152 K/mm3 (150-450); RBC Distribution Width CV 15.4 % (11.6-14.6); RBC Distribution Width SD 60.1 fl (35.1-43.9); Red Blood Count 3.76 M/mm3 (4.6-6.2); White Blood Count 5.2 K/mm3 (4.4-11.0)
[2018-07-25 16:59] LABS: POSITIVE COUNT NO; POSITIVE DIFFERENTIAL NO; POSITIVE MORPHOLOGY NO
[2018-07-25 17:14] LABS: ALB/GLOB Ratio 1.2 RATIO (0.9-2.4); AST(SGOT) 23 U/L (15-37); Alanine Aminotransfer ALT/SGPT 24 U/L (16-61); Albumin, Serum 3.6 g/dL (3.2-5.0); Alkaline Phosphatase 71 U/L (45-117); Anion Gap 10 (5-15); BUN 10 mg/dL (7-18); BUN/Creat Ratio 7.6 RATIO (10-20); Calcium,Total 8.7 mg/dL (8.5-10.1); Chloride 109 mmol/L (98-107); Creatinine, Serum 1.32 mg/dL (0.70-1.30); EST Glomerular Filtration Rate 55 mL/min (>60); Est Glom Filt Rate - Afr Amer 67 mL/min (>60); Glucose 102 mg/dL (74-106); Potassium 4.1 mmol/L (3.5-5.1); Protein, Total 6.6 g/dL (6.4-8.2); Sodium Level 145 mmol/L (136-145); Thyroid Stim Hormone (TSH) 1.21 uIU/mL (0.358-3.74)
== END ==
PROVIDERS: Family Provider Family Medicine Geriatric Medicine; PCP Family Medicine Geriatric Medicine; Visit Provider Family Medicine Geriatric Medicine
DX: I10 Essential (primary) hypertension (principal); E55.9 Vitamin D deficiency, unspecified
CPT/HCPCS: 36415; 80053; 82306; 84443; 85025

== ENCOUNTER → 2019-01-09 16:10 | Outpatient (CLI) | payer MEDICARE, OTHER, SELFPAY ==
[2019-01-09 15:21] VITALS: BMI 33.0
--- NOTE | 2019-01-09 16:15 | RAD_ITS ---
STUDY: X-RAY CHEST REASON FOR EXAM: Male, 83 years old. Shortness of breath TECHNIQUE: PA and lateral views of the chest. COMPARISON: Previous study of 01/09/2018 FINDINGS: There are chronic fibrotic interstitial markings of the right lung base. There is no demonstrated pleural abnormality. The heart size is within normal limits. Status post sternotomy changes are present. Normal mediastinum and francis. Normal visualized pulmonary arteries. There is atherosclerotic tortuosity of the aortic arch and descending thoracic aorta. There are diffuse degenerative changes of the visualized thoracic spine. Normal visualized ribs, clavicles, and shoulders. There is no demonstrated abnormality of the visualized soft tissue structures of the upper abdomen. 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 Status post sternotomy. Calcified plaques of the thoracic aorta with tortuosity noted. No acute cardiopulmonary disease process is seen. Electronically Signed: Fernando Soto MD at 23:01 EDT , Service support ,
== END ==
PROVIDERS: Family Provider Family Medicine Geriatric Medicine; PCP Family Medicine Geriatric Medicine; Referring Provider Nurse Practitioner Family; Visit Provider Nurse Practitioner Family
DX: R06.09 Other forms of dyspnea (principal)
CPT/HCPCS: 71046

== ENCOUNTER → 2019-01-23 14:56 | Outpatient (CLI) | payer MEDICARE, OTHER, SELFPAY ==
[2019-01-09 15:21] VITALS: BMI 33.0
== END ==
PROVIDERS: Family Provider Family Medicine Geriatric Medicine; PCP Family Medicine Geriatric Medicine; Visit Provider Family Medicine Geriatric Medicine
DX: Z00.00 Encounter for general adult medical examination without abnormal findings (principal)

== ENCOUNTER → 2019-02-05 13:41 | Outpatient (CLI) | payer MEDICARE, OTHER, SELFPAY ==
[2019-01-09 15:21] VITALS: BMI 33.0
[2019-02-05 17:20] LABS: Absolute Lymphocyte Count 0.51 X10^3/uL (0.83-4.51); Absolute Neutrophil Count 2.2 X10^3/uL (2.0-7.7); Basophil# 0.01 X10^3/uL; Basophil% 0.3 % (0-1); Eosinophil# 0.32 X10^3/uL; Eosinophils% 8.6 % (0-5); Hematocrit 39.6 % (40-54); Hemoglobin 13.4 g/dL (13.0-16.5); Lymphocyte # 0.51 X10^3/ul (4.0); Lymphocyte % 13.7 % (19-41); Mean Corp Hgb Conc 33.8 g/dL (32-36); Mean Corpuscular Hgb 36.7 pg (27.0-32.0); Mean Corpuscular Volume 108.5 fL (80-94); Mean Platelet Vol. 12.2 fl (6.2-12.0); Monocyte# 0.63 X10^3/uL; Monocyte% 16.9 % (0-10); NRBC Flagged by Analyzer 0 % (0-5); Neutrophil # 2.24 X10^3/uL (2.7-7.7); Neutrophil % 60.2 % (47-70); POSITIVE DIFFERENTIAL YES; Platelet Count 152 K/mm3 (150-450); RBC Distribution Width CV 14.5 % (11.6-14.6); RBC Distribution Width SD 58.1 fl (35.1-43.9); Red Blood Count 3.65 M/mm3 (4.6-6.2); White Blood Count 3.7 K/mm3 (4.4-11.0)
[2019-02-05 17:43] LABS: Vitamin D,25 Hydroxy 19.6 ng/mL (29.95-100.01)
[2019-02-05 17:47] LABS: ALB/GLOB Ratio 1.1 RATIO (0.9-2.4); AST(SGOT) 19 U/L (15-37); Alanine Aminotransfer ALT/SGPT 21 U/L (16-61); Albumin, Serum 3.5 g/dL (3.2-5.0); Alkaline Phosphatase 76 U/L (45-117); Anion Gap 8 (5-15); BUN 13 mg/dL (7-18); BUN/Creat Ratio 10.1 RATIO (10-20); Calcium,Total 8.8 mg/dL (8.5-10.1); Chloride 109 mmol/L (98-107); Creatinine, Serum 1.29 mg/dL (0.70-1.30); EST Glomerular Filtration Rate 57 mL/min (>60); Est Glom Filt Rate - Afr Amer 69 mL/min (>60); Globulin 3.2 g/dL (2.2-4.2); Glucose 101 mg/dL (74-106); Potassium 4.3 mmol/L (3.5-5.1); Protein, Total 6.7 g/dL (6.4-8.2); Sodium Level 143 mmol/L (136-145); Thyroid Stim Hormone (TSH) 1.48 uIU/mL (0.358-3.74)
[2019-02-05 20:10] LABS: Differential Indicated SCAN CRITERIA MET
[2019-02-05 20:11] LABS: Platelet Estimate ADEQUATE (ADEQ); Red Cell Morphology NORM C+C NORMAL (NORM C&C)
[2019-02-06 15:36] LABS: Pathologist Review Reviewed
== END ==
PROVIDERS: Family Provider Family Medicine Geriatric Medicine; PCP Family Medicine Geriatric Medicine; Visit Provider Family Medicine Geriatric Medicine
DX: I10 Essential (primary) hypertension (principal); E55.9 Vitamin D deficiency, unspecified
CPT/HCPCS: 36415; 80053; 82306; 84443; 85025

== ENCOUNTER → 2019-02-16 12:56 | Outpatient (CLI) | payer MEDICARE, OTHER, SELFPAY ==
[2019-01-09 15:21] VITALS: BMI 33.0
--- NOTE | 2019-02-16 14:19 | PFTCOMP_ITS ---
COMPLETE PULMONARY FUNCTION TEST INTERPRETATION Brief HPI: Patient is an 83 year old male, currently under the care of Paulino Jose, who presents to [facility] for complete pulmonary function tests secondary to diagnosis of dyspnea. Respiratory therapist reports good effort and reproducible results. Interpretation: Forced expiration spirometry shows no large airways obstructive ventilatory defect with an FEV1 of 110% predicted. There is no significant bronchodilator response by strict ATS criteria. Spirograms are of good quality and plateau normally. The respiratory flow volume loop shows a normal pattern. Lung volumes by body plethysmography show a normal total lung capacity at 5.99 L, 94% predicted. All other lung volumes are within normal limits. Diffusion capacity by carbon monoxide is normal at 88% predicted. The airway resistance is elevated. Compared to previous pulmonary function tests from 12/26/2014, there has been no significant change. Impression: These pulmonary function tests are within normal limits and show no change compared to previous studies.
== END ==
PROVIDERS: Family Provider Family Medicine Geriatric Medicine; PCP Family Medicine Geriatric Medicine; Referring Provider Nurse Practitioner Family; Visit Provider Nurse Practitioner Family
DX: R06.09 Other forms of dyspnea (principal)
CPT/HCPCS: 94060; 94726; 94729

== ENCOUNTER → 2019-02-28 06:35 | Outpatient (CLI) | payer MEDICARE, OTHER, SELFPAY ==
[2019-01-09 15:21] VITALS: BMI 33.0
--- NOTE | 2019-02-28 10:31 | NEURO ---
NCS and/or EMG Patient Report Ordering Doctor: Peter Smith DATE OF SERVICE: 02/28/19 This is a bilateral upper extremity nerve conduction study and a left upper extremity EMG performed on this 83-year-old male with a history of numbness in his entire left arm. Symptoms are worse at night, affecting all fingers, his entire arm and shoulder. There is no history of diabetes. Bilateral upper extremity sensory and motor nerve conduction studies performed demonstrating prolongation of the median motor and sensory distal latencies bilaterally worse on the left side into the severe range. Ulnar motor responses across the elbow were mildly prolonged bilaterally. radial sensory responses are normal bilaterally. The median F waves are mildly prolonged bilaterally. Left upper extremity needle electromyography is performed. Muscles evaluated included the first dorsal osseous, abductor pollicis brevis, brachial radialis, biceps, triceps and deltoid muscles. The abductor pollicis brevis and the first dorsal osseous muscle did demonstrate large motor units but pathologic spontaneous activity was absent. All other muscles demonstrate normal insertional activity with absence of pathologic spontaneous activity, motor unit potential recruitment pattern and amplitude was otherwise normal in all muscles tested. 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 Dictated using [employer] software not proofread
== END ==
PROVIDERS: Family Provider Family Medicine Geriatric Medicine; PCP Family Medicine Geriatric Medicine; Referring Provider Orthopaedic Surgery; Visit Provider Orthopaedic Surgery
DX: G56.03 Carpal tunnel syndrome, bilateral upper limbs (principal)
CPT/HCPCS: 95886; 95911

== ENCOUNTER → 2019-04-25 15:45 | Outpatient (CLI) | payer MEDICARE, OTHER, SELFPAY ==
[2019-01-09 15:21] VITALS: BMI 33.0
--- NOTE | 2019-04-25 16:09 | EKG12_ITS ---
Test Reason : PRE OP Blood Pressure : / mmHG Vent. Rate : 068 BPM Atrial Rate : 068 BPM P-R Int : 172 ms QRS Dur : 096 ms QT Int : 412 ms P-R-T Axes : 075 -12 029 degrees QTc Int : 438 ms Normal sinus rhythm with sinus arrhythmia Septal infarct , age undetermined Abnormal ECG Confirmed by ROSANNA HERNANDEZ, LATASHA ([id number]), digital editor SIM MARIE ([id number]) on 04/30/2019 8:36:57 AM Referred By: Peter Smith Confirmed By:LATASHA MARTE MD
[2019-04-25 17:01] LABS: Hematocrit 39.8 % (40-54); Hemoglobin 13.2 g/dL (13.0-16.5); Mean Corp Hgb Conc 33.2 g/dL (32-36); Mean Corpuscular Hgb 36.5 pg (27.0-32.0); Mean Corpuscular Volume 109.9 fL (80-94); Mean Platelet Vol. 11.8 fl (6.2-12.0); Platelet Count 158 K/mm3 (150-450); RBC Distribution Width CV 14.4 % (11.6-14.6); RBC Distribution Width SD 59.1 fl (35.1-43.9); Red Blood Count 3.62 M/mm3 (4.6-6.2); White Blood Count 5.5 K/mm3 (4.4-11.0)
[2019-04-25 17:39] LABS: Anion Gap 5 (5-15); BUN 16 mg/dL (7-18); BUN/Creat Ratio 12.7 RATIO (10-20); Calcium,Total 8.7 mg/dL (8.5-10.1); Chloride 108 mmol/L (98-107); Creatinine, Serum 1.26 mg/dL (0.70-1.30); EST Glomerular Filtration Rate 58 mL/min (>60); Est Glom Filt Rate - Afr Amer 71 mL/min (>60); Glucose 83 mg/dL (74-106); Potassium 4.4 mmol/L (3.5-5.1); Sodium Level 142 mmol/L (136-145)
== END ==
PROVIDERS: Family Provider Family Medicine Geriatric Medicine; PCP Family Medicine Geriatric Medicine; Referring Provider Orthopaedic Surgery; Visit Provider Orthopaedic Surgery
DX: Z01.818 Encounter for other preprocedural examination (principal); Z01.810 Encounter for preprocedural cardiovascular examination
CPT/HCPCS: 36415; 80048; 85027; 93005

== ENCOUNTER 2019-05-11 12:25 | Inpatient (IN) | payer MEDICARE, OTHER, SELFPAY ==
[2019-01-09 15:21] VITALS: BMI 33.0
[2019-05-11 12:27] VITALS: BP 137/70; PULSE 62; RESP 17; TEMP 36.6; O2SAT 93; BMI 36.8
--- NOTE | 2019-05-11 13:21 | EKG12_ITS ---
Test Reason : FALL Blood Pressure : / mmHG Vent. Rate : 064 BPM Atrial Rate : 064 BPM P-R Int : 206 ms QRS Dur : 106 ms QT Int : 440 ms P-R-T Axes : 050 -16 013 degrees QTc Int : 453 ms Normal sinus rhythm Incomplete left bundle branch block Borderline ECG Confirmed by ROSANNA HERNANDEZ, LATASHA ([id number]), editor trade journal DIONNE HALE ([id number]) on 05/15/2019 11:12:03 AM Referred By: Abdulaziz Robledo Confirmed By:LATASHA MARTE MD
--- NOTE | 2019-05-11 13:22 | CT_ITS ---
STUDY: CT BRAIN WITHOUT CONTRAST REASON FOR EXAM: Male, 83 years old. Laceration to the right side of the skull following a fall. RADIATION DOSAGE (If Supplied By Facility): CTDIvol = ( 60.81 ) mGy, DLP = ( 1135.50 ) mGycm TECHNIQUE: Transaxial CT imaging of the brain was performed without administration of intravenous contrast material. Individualized dose optimization techniques were used for this CT. COMPARISON: No relevant priors. FINDINGS: Mild degree of scalp hematoma overlying the right parietal bone. Normal calvarium. There is mild cerebral atrophy with widening of the extra-axial spaces and ventricular dilatation. There are areas of decreased attenuation within the white matter tracts of the supratentorial brain, consistent with microvascular disease changes. There are small punctate calcifications of the basal ganglia which are seen in the aging brain as a normal variant. Normal brainstem. Normal cerebellum. There is no intracranial hemorrhage. There are no findings of an acute ischemic infarction. Atherosclerotic calcification of the cavernous portions of the internal carotid arteries. Mild degree of mucosal thickening along the anterior aspect of the left sphenoid sinus. CT/Brain/Head without Contrast IMPRESSION: Chronic involutional changes of the brain. Electronically Signed: Mohan Wharton, at 14:19 EST , Service support ,
--- NOTE | 2019-05-11 13:22 | CT_ITS ---
STUDY: CT CERVICAL SPINE WITHOUT CONTRAST REASON FOR EXAM: Male, 83 years old. History of fall. RADIATION DOSAGE (If Supplied By Facility): CTDIvol = ( 31.15 ) mGy, DLP = ( 735.65 ) mGycm TECHNIQUE: High resolution transaxial imaging was performed without contrast material. Sagittal and coronal images were reconstructed. Individualized dose optimization techniques were used for this CT. COMPARISON: None FINDINGS: Normal craniovertebral junction. There are degenerative changes of the anterior atlantoaxial articulation. Normal odontoid process. Normal cervical lordosis. Normal vertebral bodies and posterior osseous elements. C2-3: Facet joint hypertrophy on the left side. No significant neural foraminal stenosis seen. C3-4: Hypertrophy of the left facet joint. Uncovertebral arthrosis. No acute abnormality is seen. C4-5: Mild degree of disc space narrowing and spondylosis. C5-6: Marked degree of disc space narrowing with posterior spondylosis. Uncovertebral arthrosis. Moderate degree of bilateral neural foraminal stenosis. C6-7: Moderate degree of disc space narrowing and spondylosis. Uncovertebral arthrosis. No significant stenosis is seen. Atherosclerotic calcification of the aortic arch. CT/Spine Cervical without Contras IMPRESSION: Multilevel degenerative changes, as described above. Electronically Signed: Mohan Wharton, at 14:20 EST , Service support ,
--- NOTE | 2019-05-11 13:32 | ED.VIS.FALL ---
History of Present Illness Chief Complaint: Fall Informant: Patient Occurred: Today Mechanism/Context: Dizziness Usually ambulates: Without assistance Location: head, ribs-right Quality of Pain: Aching Current Severity: Mild Narrative: Patient is an 83-year-old male presenting from home after a fall. Patient states he felt dizzy at home and lost his balance. He then fell. Patient landed on the floor and struck his head. He denies any loss of consciousness and states he was aware of everything that was going on around him. He is not sure when his last tetanus was. Patient also is complaining of pain over his right anterior ribs. Patient did not eat breakfast today and took 2 tramadol for pain in his left arm. Patient had surgery for carpal tunnel release and trigger finger release yesterday. Patient thinks the medication is what caused him to feel dizzy and fall. Patient denies any associated chest pain, shortness of breath or difficulty breathing. He denies any numbness or tingling. He denies any GI or symptoms. He denies any other complaints at this time. He states he is feeling better. Past Medical History - Allergies and Home Meds Allergies/Adverse Reactions: Allergies No Known Allergies Allergy (Verified 05/11/19 12:26) Primary Care Physician: Kaiser Pan Chi, MD [Primary Care Provider] - Past Medical History: - - Hypertension, hyperlipidemia, coronary artery disease, atrial flutter,, Prinzmetal angina Surgical History: coronary bypass surgery, - - Left arm surgery Smoking Status: Never smoker - Family History Paternal Family History: Family History (Last Reviewed 07/04/18 @ 16:03 by Crystal Nobles) Father CAD (coronary artery disease) CHF (congestive heart failure) Mother Heart disease Brother Diabetes Cancer Hx of CABG CAD (coronary artery disease) Sister COPD (chronic obstructive pulmonary disease) Diabetes Family History: Reports: No pertinent history Review of Systems General: Reports: - - Dizziness. Denies: Chills, Fever, Sweats Eyes: Denies: Visual changes - bilaterally, Diplopia ENT: Denies: Rhinorrhea, Sore throat Cardiovascular: Reports: Chest pain - Right ribs. Denies: Palpitations Respiratory: Denies: Dyspnea, Cough, Dyspnea on exertion Gastrointestinal: Reports: Nausea. Denies: Abdominal pain, Vomiting, Diarrhea, Melena, Hematochezia Genitourinary: Denies: Dysuria, Hematuria, Frequency Musculoskeletal: Reports: Extremity Pain - Left arm, status post surgery. Denies: Back pain Skin: Denies: Rash, Wounds Neurological: Reports: Headache. Denies: Weakness, Parasthesia, Numbness Physical Exam Vital Signs/Narrative: Vital Signs Temp Pulse Resp BP Pulse Ox 05/11/19 12:27 97.8 F 62 17 137/70 H 93 Inital Vital Signs reviewed: Yes General: Well nourished, Well developed Head: Normocephalic, - - 1 cm superficial laceration over right parietal scalp, small area of full-thickness laceration however the wound edges are well approximated Eyes: Perrl, EOMI, - - No Nystagmus on exam ENT: TM's clear, No hemotympanum or drainage, No trauma. Negative for: Hemotympanum, Nasal septal hematoma Neck: Nontender, Full ROM. Negative for: Spinal Tenderness, Paraspinal Tenderness Cardiovascular: Regular rate, Regular rhythm, No murmurs Respiratory: No distress, CTA bilaterally, Chest nontender, Chest tenderness - Right lower anterior ribs, no associated crepitus or ecchymosis Abdomen: Soft, Nontender, Nondistended, Normal bowel sounds Back: Nontender Extremeties: Left upper extremity is in a splint for recent surgery, no obvious bony deformity of the extremities. Pelvis is stable. Skin: Normal color, No rash Neurological: Alert, Oriented x3, Cranial nerves II-XII grossly intact, Normal Strength, Normal Sensation, - - Normal coordination Psychological: Normal affect, Normal Mood Diagnostic/Tx/Re-eval Chest X-Ray - ED: No Acute Disease Clinical Impression(s) from Imaging Studies Brain CT 05/11/19 13:22 IMPRESSION: Chronic involutional changes of the brain. Electronically Signed: Mohan Wharton, at 14:19 EST , Service support , Cervical Spine CT 05/11/19 13:22 IMPRESSION: Multilevel degenerative changes, as described above. Electronically Signed: Mohan Wharton, at 14:20 EST , Service support , Ribs w/Chest X-Ray 05/11/19 13:57 IMPRESSION: RIBS: Healed right rib fracture. CHEST: No acute abnormality is seen. Electronically Signed: Mohan Wharton, at 15:03 EST , Service support , Laboratory Data 05/11/19 05/11/19 05/11/19 13:45 13:45 15:35 WBC 6.2 RBC 3.57 L Hgb 13.1 Hct 39.0 L MCV 109.2 H MCH 36.7 H MCHC 33.6 RDW Std Deviation 58.9 H RDW Coeff of Brigitte 14.5 Plt Count 149 L MPV 11.9 Immature Gran % (Auto) 0.300 Neut % (Auto) 80.1 H Lymph % (Auto) 6.1 L Camas % (Auto) 11.4 H Eos % (Auto) 1.8 Baso % (Auto) 0.3 Absolute Neuts (auto) 5.0 Absolute Lymphs (auto) 0.38 L Nucleated RBC % 0 Differential Comment SCANNED Platelet Estimate SLT DEC Plt Morphology Comment COMMENT Macrocytosis 1+ Tear Drop Cells RARE Ovalocytes RARE Sodium 140 Potassium 4.2 Chloride 108 H Carbon Dioxide 26.0 Anion Gap 6 BUN 14 Creatinine 1.22 Estim Creat Clear Calc 45.94 Est GFR (MDRD) Af Amer 73 Est GFR (MDRD) Non-Af 61 BUN/Creatinine Ratio 11.5 Glucose 110 H Calcium 8.8 Troponin I < 0.015 Urine Color Yellow Urine Clarity Clear Urine pH 6.0 Ur Specific [place] 1.020 Urine Protein Negative Urine Glucose (UA) Normal Urine Ketones Negative Urine Occult Blood Negative Urine Nitrite Negative Urine Bilirubin Negative Urine Urobilinogen Normal Ur Leukocyte Esterase 100 H - Rhythm Strip Rhythm Strip: Sinus Rhythm Rate: 64 Ectopy: None - EKG Initial EKG Interpretation: Sinus Rhythm, LBBB, - - Normal sinus rhythm rate of 64 NM interval 206 QRS 106 QT/QTc 440/453 Left axis deviation Left bundle branch block Nonspecific ST segment changes - Medical Decision Making Is evaluated after a fall. He states he felt dizzy and then fell to the ground. He did not have loss of consciousness. Patient does have a small laceration to his head. The wound edges are well approximated and it is cleaned with saline. It does not require repair with hao or sutures. Tetanus is updated. CT the brain and C-spine do not show any acute process. Patient is complaining of right-sided rib pain. Rib series does not show any acute fracture. CBC and BMP are grossly unremarkable. Urinalysis not show signs of infection. When patient is attempted to move or reposition the bed he gets very dizzy again. He is now describing more as a vertigo sensation. Patient is unable to tolerate Tim-Hallpike testing in the emergency room. Patient is given IV Ativan with no improvement of his symptoms. Patient lives by himself and I do think he would benefit from admission for further symptomatic treatments and possible physical therapy. Patient is agreeable to this. It is also possible that his symptoms are secondary to taking the tramadol today. Patient is stable for the general medical floor at time of disposition. ED Disposition - Plan for ED Patient: Disposition: [facility] Diagnosis: Vertigo, Laceration of head Referrals: Kaiser Pan Chi, MD [Primary Care Provider] -
[2019-05-11] MEDS: Diphth,Pertuss(Acell),Tet Vac 0.5 ML Vial IM (13:36)
--- NOTE | 2019-05-11 13:57 | RAD_ITS ---
STUDY: X-RAY - UNILATERAL RIBS ( RIGHT ) WITH CHEST REASON FOR EXAM: Male, 83 years old. Right rib pain following a fall TECHNIQUE - RIBS: 4 view(s) of the ribs. TECHNIQUE - CHEST: Single AP portable view of the chest. COMPARISON: Comparison is made with prior chest radiograph dated January 09, 2019. FINDINGS - RIBS: Healed right eighth rib fracture. FINDINGS - CHEST: Mild increased markings at the left lung base suggestive of atelectasis. There is no demonstrated pleural abnormality. Sternal cerclage wires and vascular clips are present from a prior sternotomy and coronary artery bypass graft procedure (CABG). Mild cardiomegaly. Normal mediastinum and francis. Normal visualized pulmonary arteries. There is atherosclerotic calcification of the aortic arch with tortuosity. Normal visualized thoracic spine. Normal visualized ribs, clavicles, and shoulders. There is no demonstrated abnormality of the visualized soft tissue structures of the upper abdomen. RAD/Ribs Uni Min 3V w/PA Chest IMPRESSION: RIBS: Healed right rib fracture. CHEST: No acute abnormality is seen. Electronically Signed: Mohan Wharton, at 15:03 EST , Service support ,
[2019-05-11 13:58] LABS: Absolute Lymphocyte Count 0.38 X10^3/uL (0.83-4.51); Basophil# 0.02 X10^3/uL; Basophil% 0.3 % (0-1); Eosinophil# 0.11 X10^3/uL; Eosinophils% 1.8 % (0-5); Hemoglobin 13.1 g/dL (13.0-16.5); Lymphocyte # 0.38 X10^3/ul (4.0); Lymphocyte % 6.1 % (19-41); Mean Corp Hgb Conc 33.6 g/dL (32-36); Mean Corpuscular Hgb 36.7 pg (27.0-32.0); Mean Corpuscular Volume 109.2 fL (80-94); Mean Platelet Vol. 11.9 fl (6.2-12.0); Monocyte# 0.71 X10^3/uL; Monocyte% 11.4 % (0-10); NRBC Flagged by Analyzer 0 % (0-5); Neutrophil # 4.97 X10^3/uL (2.7-7.7); Neutrophil % 80.1 % (47-70); POSITIVE DIFFERENTIAL YES; Platelet Count 149 K/mm3 (150-450); RBC Distribution Width CV 14.5 % (11.6-14.6); RBC Distribution Width SD 58.9 fl (35.1-43.9); Red Blood Count 3.57 M/mm3 (4.6-6.2); White Blood Count 6.2 K/mm3 (4.4-11.0)
[2019-05-11 14:02] LABS: Differential Indicated SCAN CRITERIA MET
[2019-05-11 14:14] LABS: Anion Gap 6 (5-15); BUN 14 mg/dL (7-18); BUN/Creat Ratio 11.5 RATIO (10-20); Calcium,Total 8.8 mg/dL (8.5-10.1); Chloride 108 mmol/L (98-107); Creatinine, Serum 1.22 mg/dL (0.70-1.30); EST Glomerular Filtration Rate 61 mL/min (>60); Est Glom Filt Rate - Afr Amer 73 mL/min (>60); Estimated Creatinine Clearance 45.94 ml/min; Glucose 110 mg/dL (74-106); Potassium 4.2 mmol/L (3.5-5.1); Sodium Level 140 mmol/L (136-145)
[2019-05-11 15:28] LABS: Differential Comment SCANNED; Macrocytosis 1+; Ovalocyte RARE; Platelet Estimate SLT DEC (ADEQ); Tear Drop Cell RARE
[2019-05-11] MEDS: LORazepam 2 MG/ML Syringe 1 MG IV (15:53)
[2019-05-11 16:05] VITALS: BP 145/82; PULSE 63; RESP 15; O2SAT 92
[2019-05-11 16:21] LABS: Bacteria 0 SEEN /hpf (None Seen); Red Blood Cells-Urine 0 SEEN /hpf (0-5)
[2019-05-11 16:25] LABS: Color, Urine Yellow (Yellow); Glucose, Dipstick Normal (Normal); Ketone-Dipstick Negative (Negative); Leukocyte Esterase-Dipstick 100 /ul (Negative); Nitrite-Dipstick Negative (Negative); Occult Blood-Urine Negative /ul (Negative); Protein-Dipstick Negative (Negative); Urine Bilirubin Dipstick Negative (Negative); Urine Clarity Clear (Clear); Urine Urobilinogen Normal (Normal)
[2019-05-11 16:53] VITALS: BP 145/82; PULSE 63; RESP 14; O2SAT 96
[2019-05-11] MEDS: Ondansetron 4 MG/2 ML Vial IV (16:59)
[2019-05-11 17:03] LABS: Hyaline Cast 0-5 SEEN /lpf (0-5); Mucous, Urine RARE /hpf (<or=2+); Squamous Epithelial Cells - UA 0-5 SEEN /hpf (0-5); White Blood Cells 5-10 SEEN /hpf (0-5)
[2019-05-11 17:43] VITALS: BMI 36.8
[2019-05-11 18:04] VITALS: BP 164/80; PULSE 65; RESP 14; O2SAT 92
[2019-05-11 18:48] VITALS: BMI 37.2
[2019-05-11 18:53] VITALS: BP 179/84; PULSE 69; RESP 16; TEMP 36.4; O2SAT 97
--- NOTE | 2019-05-11 20:31 | HP.PCM_ITS ---
Problem List (1) Vertigo Status: Acute History of Present Illness Date of Admission: 05/11/19 Chief Complaint: Dizziness The patient is a 83 year old M the emergency room at [facility] today with a chief complaint of a dizzy sensation and nausea and vomiting which started shortly after he took tramadol this morning for postop pain due to his left carpal tunnel surgery which was performed yesterday. Patient denied any speech or visual disturbances, he denied any focal weakness. Patient fell at home prior to coming to the emergency room for evaluation. He denied any loss of consciousness. Patient is complaining of some pain over his right anterior ribs. Work-up in the emergency room included a CBC which was unremarkable except for a platelet count of 149,000. His chemistry panel was unremarkable, patient's urinalysis was unremarkable except for a urine leukocyte esterase elevation and 5-[address] was performed that showed chronic involutional changes of the brain. Rib x-rays were negative for acute rib fracture, there were evidence of healed eighth right rib fracture, chest x-ray showed no acute disease. She was given IV Ativan for his symptoms, he was unable however to ambulate and the hospitalist service was called to place the patient in observation status for vertigo. Past Medical History Past Medical History (Chronic Problems): Chronic Problems (Last Reviewed 12/30/17 @ 11:41 by Leeanna Calvo) Prinzmetal angina (Chronic) HLD (hyperlipidemia) (Chronic) HTN (hypertension) (Chronic) CAD (coronary artery disease) (Chronic) Malignant pericardial effusion (Chronic) Atrial flutter (Chronic) Palpitations (Chronic) Shortness of breath (Chronic) Precordial chest pain (Chronic) Aortocoronary bypass status (Chronic) History of percutaneous transluminal coronary angioplasty (Chronic) Abnormal result of cardiovascular function study, unspecified (Chronic) Pain in limb (Chronic) Dizziness and giddiness (Chronic) Fatigue (Chronic) Mild aortic insufficiency (Chronic) Pain in left shoulder (Chronic) Atherosclerosis of coronary artery bypass graft(s), unspecified, with other forms of angina pectoris (Chronic) Intermittent claudication (Chronic) Medical History: Medical History (Last Reviewed 12/30/17 @ 11:41 by Leeanna Calvo) Prinzmetal angina (Chronic) I20.1 HLD (hyperlipidemia) (Chronic) E78.5 HTN (hypertension) (Chronic) I10 CAD (coronary artery disease) (Chronic) I25.10 Malignant pericardial effusion (Chronic) C80.1, I31.8 Atrial flutter (Chronic) I48.92 Palpitations (Chronic) R00.2 Shortness of breath (Chronic) R06.02 Precordial chest pain (Chronic) R07.2 Aortocoronary bypass status (Chronic) Z95.1 History of percutaneous transluminal coronary angioplasty (Chronic) Z98.61 Abnormal result of cardiovascular function study, unspecified (Chronic) R94.30 Pain in limb (Chronic) M79.609 Dizziness and giddiness (Chronic) R42 Fatigue (Chronic) R53.83 Mild aortic insufficiency (Chronic) I35.1 Pain in left shoulder (Chronic) M25.512 Atherosclerosis of coronary artery bypass graft(s), unspecified, with other forms of angina pectoris (Chronic) I25.708 Intermittent claudication (Chronic) I73.9 Allergies No Known Allergies Allergy (Verified 05/11/19 12:26) Home Medications: Ambulatory Orders Medication Instructions Recorded Tamsulosin HCl [Flomax] 0.4 mg PO DAILY 03/06/16 nitroglycerin 0.4 mg sublingual 0.4 mg SUBLINGUAL Q5M PRN #25 tab 12/30/17 tablet Multivitamin [Multiple Vitamins] 1 ea PO DAILY 01/10/18 atorvastatin 40 mg tablet 40 mg PO QHS tab 06/26/18 aspirin 81 mg tablet,delayed 81 mg PO DAILY 07/04/18 release omeprazole 40 mg capsule,delayed 40 mg PO DAILY 07/04/18 release potassium chloride ER 20 mEq 20 meq PO DAILY 07/04/18 tablet,extended release simethicone 180 mg capsule 180 mg PO BID cap 01/09/19 tramadol 50 mg tablet 50 - 100 mg PO Q6H PRN PRN 01/09/19 Gabapentin [Neurontin] 200 mg PO QHS 05/11/19 Ranolazine [Ranexa] 1,000 mg PO BID 05/11/19 Surgical History: Surgical History (Last Updated 07/04/18 @ 16:09 by JOSIAH Galvin) Status post total knee replacement, right (Resolved) Z96.651 H/O cardiac radiofrequency ablation Onset Date: ~10/2006 Z98.890 History of PTCA Z98.61 PTCA of the CFX intracoronary stent History of arthroscopy Onset Date: ~07/2011 Z98.890 & repair of right rotator cuff tear History of left heart catheterization (LHC) Onset Date: ~09/2007 Z98.890 05/2005, 09/2007, 10/2006, 02/2008, 10/2013, 03/30/2016 Hx of CABG Onset Date: ~05/2005 Z95.1 VAZQUEZ to LAD, SVG to RCA and diag branch of LAD and repair of dissection with graft and reimplantation of SVG to RCA and diag branch History of bilateral knee replacement Z96.653 Surgical History: coronary bypass surgery, total knee arthroplasty - Bilateral, - - Left arm surgery-carpal tunnel, coronary artery stent placement, ablation for cardiac arrhythmia, shoulder surgery Psychiatric History: No pertinent psych hx Lives: Alone Smoking Status: Never smoker Tobacco Use: Non-smoker Alcohol: None Drugs: None - *Family History Paternal Family History: Family History (Last Reviewed 07/04/18 @ 16:03 by Crystal Nobles) Father CAD (coronary artery disease) CHF (congestive heart failure) Mother Heart disease Brother Diabetes Cancer Hx of CABG CAD (coronary artery disease) Sister COPD (chronic obstructive pulmonary disease) Diabetes History Items: No pertinent history Review of Systems Constitutional: Denies: Anorexia, Chills, Fever, Night Sweats, Malaise, Weakness, Weight Change, Fatigue Eyes: Denies: Cataracts, Conjunctivae Inflammation, Double vision, Drainage HEENT: Denies: Difficulty Swallowing, Dysphasia, Ear Pain, Eye Pain, Nasal bleeding, Nasal Congestion, Post Nasal Drip Cardiovascular: Denies: Chest Pain, Claudication, Chest Pressure, Chest Tightness, Edema, Heaviness, Palpitations Respiratory: Denies: Cough, Hemoptysis, Pleuritic Pain, Shortness of Breath, Shortness of breath at rest, Shortness of breath upon exertion, Sputum production Gastrointestinal: Denies: Abdominal Pain, Constipation, Diarrhea, Hematemesis, Hematochezia, Nausea, Melena, Vomiting Genitourinary: Denies: Dysuria, Frequency, Hematuria, Hesitancy, Nocturia, Retention, Urgency Musculoskeletal: Reports: - - Right rib pain. Denies: Back Pain, Foot Pain, Hand Pain, Joint Pain, Joint stiffness, Joint swelling, Joint Tenderness, Leg Pain Skin: Denies: Dryness, Jaundice, Pruritis, Rash Neurological: Reports: - - Dizziness as described in chief complaint. Denies: Blurred vision, Double vision, Change in Speech, Slurred speech, Difficulty swallowing, Focal weakness, Headaches, Incoordination, Numbness, Tingling Psychiatric: Denies: Anxiety, Depression, Homicidal Ideations, Suicidal Ideations Endocrine: Denies: Change in Body Habitus, Heat/ Cold Intolerance, Polydipsia, Polyuria Hematologic/ Lymphatic: Denies: Adenopathy, Anemia, Easy Bruising, Easy Bleeding, Petechiae, Purpura VTE Information - Inpt Only VTE Present on Admission: No VTE Mechan Device Prophylaxis: None VTE Pharm Prophylaxis ordered?: Yes Patient Problems: Active and Suspected Problems (Last Reviewed 12/30/17 @ 11:41 by Leeanna Calvo) Vertigo (Acute) Laceration of head (Acute) - Physical Exam Vitals/I&O's: Vital Signs Temp Pulse Resp BP Pulse Ox 97.5 F L 69 16 179/84 H 97 05/11/19 18:53 05/11/19 18:53 05/11/19 18:53 05/11/19 18:53 05/11/19 18:53 Oxygen Delivery Method Room Air Weight: 111.13 kg Body Mass Index (BMI) 37.2 Intake and Output for Last 24 Hours 05/09/19 05/10/19 05/11/19 23:59 23:59 23:59 Intake Total 500 / 500 Balance 500 / 500 General: Alert, Oriented x3, Cooperative, No apparent distress, Well developed, Well nourished HEENT: Atraumatic, PERRLA, EOMI, Normocephalic Oral: Moist Mucosa Neck: Supple, No JVD, Negative Carotid Bruits, No Nuchal Rigidity, Trachea Midline, Thyroid Normal Size and Texture Lungs: Clear to auscultation, Normal air movement, No rhonchi, No wheeze, No rales Cardiovascular: Regular rate, Regular Rhythm, Normal S1, Normal S2, No murmurs, PMI Normal, No rub noted, No Gallop Abdomen: Bowel Sounds Present, Soft, Non Tender, Non-Distended, No hernias noted Extremities: No clubbing, No cyanosis, No edema, Capillary Refill Less than 3 Seconds, - - Left arm is enclosed in a splint Skin: No rashes, No breakdown Musculoskeletal: No Muscle Wasting Neurological: Cranial nerves II-XII grossly intact, Neuro grossly intact, Sensory exam intact to light touch and pain Psych/Mental Status: Normal Affect, Appropriate, Alert and oriented to time, place, person, mood and affect Laboratory Results 05/11/19 13:45: WBC 6.2, RBC 3.57 L, Hgb 13.1, Hct 39.0 L, MCV 109.2 H, MCH 36.7 H, MCHC 33.6, RDW Std Deviation 58.9 H, RDW Coeff of Brigitte 14.5, Plt Count 149 L, MPV 11.9, Immature Gran % (Auto) 0.300, Neut % (Auto) 80.1 H, Lymph % (Auto) 6.1 L, [place] % (Auto) 11.4 H, Eos % (Auto) 1.8, Baso % (Auto) 0.3, Absolute Neuts (auto) 5.0, Absolute Lymphs (auto) 0.38 L, Nucleated RBC % 0, Differential Comment SCANNED, Platelet Estimate SLT DEC, Plt Morphology Comment COMMENT, Macrocytosis 1+, Tear Drop Cells RARE, Ovalocytes RARE 05/11/19 13:45: Sodium 140, Potassium 4.2, Chloride 108 H, Carbon Dioxide 26.0, Anion Gap 6, BUN 14, Creatinine 1.22, Estim Creat Clear Calc 45.94, Est GFR (MDRD) Af Amer 73, Est GFR (MDRD) Non-Af 61, BUN/Creatinine Ratio 11.5, Glucose 110 H, Calcium 8.8, Troponin I < 0.015 05/11/19 15:35: Urine Color Yellow, Urine Clarity Clear, Urine pH 6.0, Ur Specific [place] 1.020, Urine Protein Negative, Urine Glucose (UA) Normal, Urine Ketones Negative, Urine Occult Blood Negative, Urine Nitrite Negative, Urine Bilirubin Negative, Urine Urobilinogen Normal, Ur Leukocyte Esterase 100 H, Urine RBC 0 SEEN, Urine WBC 5-10 SEEN, Ur Squamous Epith Cells 0-5 SEEN, Urine Bacteria 0 SEEN, Hyaline Casts 0-5 SEEN, Urine Mucus RARE Current Medications Hydrocodone Bitart/Acetaminophen ([place] 5mg-325mg) 1 tablet PO Q4H PRN PRN PRN Reason: Pain Score 6-10/10 Aspirin (Ecotrin) 81 mg PO DAILYCM IRENA Atorvastatin Calcium (Lipitor) 40 mg PO QHS IRENA Diazepam (Valium) 2 mg PO Q6 IRENA Gabapentin (Neurontin) 200 mg PO QHS IRENA Heparin Sodium (Porcine) (Heparin Na) 5,000 unit SC Q8 IRENA Nitroglycerin (Nitrostat) 0.4 mg SUBLINGUAL Q5M PRN PRN Reason: Chest Pain Ondansetron HCl (Zofran) 4 mg IV Q8H PRN PRN PRN Reason: NAUSEA/VOMITING Pantoprazole Sodium (Protonix) 40 mg PO DAILY IRENA Potassium Chloride (K-Dur) 20 meq PO DAILY IRENA Ranolazine (Ranexa) 1,000 mg PO BID IRENA Sodium Chloride () 10 - 40 ml IV UD PRN PRN Reason: SALINE FLUSH Tamsulosin HCl (Flomax) 0.4 mg PO DAILY@0830 [facility] Assessment/Plan All Active Problems (Last Updated 07/04/18 @ 16:09 by Paulino Jose, [employer]) Vertigo (Acute) Laceration of head (Acute) Dyspnea on exertion (Acute) Status post total knee replacement, right (Resolved) #1 acute vertigo-etiology unclear, possibilities include benign vertigo or a side effect from his tramadol that he took this morning-patient will be placed in observation status on MedSurg 3, he will be given Valium for his vertiginous symptoms, he will be seen by PT and OT, patient will be placed on [place] for pain instead of tramadol. #2 hypertension #3 coronary artery disease #4 status post left carpal tunnel surgery #5 BPH #6 hyperlipidemia Code Visit OBSV E&M: 68329 Initial observation care L3
[2019-05-11 20:50] VITALS: BP 136/66; PULSE 70; RESP 18; TEMP 36.8; O2SAT 96
[2019-05-11] MEDS: HYDROcodone Bitartrate/Apap 5/325 Tablet PO (20:56)
[2019-05-11] MEDS: Heparin Injection (Vial) 5,000 UNIT/ML VIAL 5000 UNIT SC (21:01)
[2019-05-11] MEDS: Atorvastatin Calcium 40 MG Tablet PO (21:02)
[2019-05-11] MEDS: Gabapentin 100 MG Capsule 200 MG PO (21:06)
[2019-05-11] MEDS: 0.9% Saline Lock 10 ML Syringe IV (21:08)
[2019-05-11] MEDS: Ranolazine 500 MG Tablet 1000 MG PO (21:13)
[2019-05-12] MEDS: diazePAM 2 MG Tablet PO ×2 (01:29→05:19)
[2019-05-12 01:33] VITALS: BP 128/67; PULSE 64; RESP 18; TEMP 36.6; O2SAT 94
[2019-05-12] MEDS: HYDROcodone Bitartrate/Apap 5/325 Tablet PO ×2 (01:36→08:48)
[2019-05-12] MEDS: Heparin Injection (Vial) 5,000 UNIT/ML VIAL 5000 UNIT SC ×3 (05:19→21:15)
[2019-05-12 05:27] VITALS: BP 130/64; PULSE 63; RESP 18; TEMP 36.8; O2SAT 93
[2019-05-12] MEDS: Tamsulosin HCl 0.4 MG Capsule PO (08:48)
[2019-05-12] MEDS: Aspirin E.C. 81 MG Tablet PO (08:49)
[2019-05-12] MEDS: Pantoprazole Sodium 40 MG Tablet PO (08:50)
[2019-05-12] MEDS: Ranolazine 500 MG Tablet 1000 MG PO ×2 (08:51→21:15)
--- NOTE | 2019-05-12 09:10 | PN_ITS ---
Patient Problems: Active and Suspected Problems (Last Reviewed 12/30/17 @ 11:41 by Leeanna Calvo) Vertigo (Acute) Laceration of head (Acute) Subjective: Follow-up on vertigo Patient was seen and examined. Patient complains of pain in his left upper extremity from his recent left carpal tunnel surgery. Pain is more than 6 out of 10. Still has dizziness Vitals/I&O's: Vital Signs Temp Pulse Resp BP Pulse Ox 98.3 F 63 18 130/64 H 93 05/12/19 05:27 05/12/19 05:27 05/12/19 05:27 05/12/19 05:27 05/12/19 05:27 Oxygen Delivery Method Room Air Weight: 111.13 kg Body Mass Index (BMI) 37.2 Intake and Output for Last 24 Hours 05/10/19 05/11/19 05/12/19 23:59 23:59 23:59 Intake Total 500 / 1000 700 / 700 Output Total 1200 / 1200 Balance 500 / 200 -500 / -500 General: Alert, Oriented x3, Cooperative, No apparent distress HEENT: Atraumatic, PERRLA, EOMI, Normocephalic Oral: Moist Mucosa Neck: Supple, No JVD Lungs: Clear to auscultation, Normal air movement Cardiovascular: Regular rate, Regular Rhythm, Normal S1, Normal S2, No murmurs Abdomen: Bowel Sounds Present, Soft, Non Tender, Non-Distended, No Hepato- splenomegaly Extremities: No edema Skin: No rashes, No breakdown Musculoskeletal: No Tenderness to Palpation of Joints or Extremities Lymphatic: No Cervical, Supraclavicular, or Inguinal Adenopathy Neurological: Cranial nerves II-XII grossly intact, Neuro grossly intact Psych/Mental Status: Normal Affect, Appropriate Laboratory Results 05/11/19 13:45: WBC 6.2, RBC 3.57 L, Hgb 13.1, Hct 39.0 L, MCV 109.2 H, MCH 36.7 H, MCHC 33.6, RDW Std Deviation 58.9 H, RDW Coeff of Brigitte 14.5, Plt Count 149 L, MPV 11.9, Immature Gran % (Auto) 0.300, Neut % (Auto) 80.1 H, Lymph % (Auto) 6.1 L, [place] % (Auto) 11.4 H, Eos % (Auto) 1.8, Baso % (Auto) 0.3, Absolute Neuts (auto) 5.0, Absolute Lymphs (auto) 0.38 L, Nucleated RBC % 0, Differential Comment SCANNED, Platelet Estimate SLT DEC, Plt Morphology Comment COMMENT, Macrocytosis 1+, Tear Drop Cells RARE, Ovalocytes RARE 05/11/19 13:45: Sodium 140, Potassium 4.2, Chloride 108 H, Carbon Dioxide 26.0, Anion Gap 6, BUN 14, Creatinine 1.22, Estim Creat Clear Calc 45.94, Est GFR (MDRD) Af Amer 73, Est GFR (MDRD) Non-Af 61, BUN/Creatinine Ratio 11.5, Glucose 110 H, Calcium 8.8, Troponin I < 0.015 05/11/19 15:35: Urine Color Yellow, Urine Clarity Clear, Urine pH 6.0, Ur Specific [place] 1.020, Urine Protein Negative, Urine Glucose (UA) Normal, Urine Ketones Negative, Urine Occult Blood Negative, Urine Nitrite Negative, Urine Bilirubin Negative, Urine Urobilinogen Normal, Ur Leukocyte Esterase 100 H, Urine RBC 0 SEEN, Urine WBC 5-10 SEEN, Ur Squamous Epith Cells 0-5 SEEN, Urine Bacteria 0 SEEN, Hyaline Casts 0-5 SEEN, Urine Mucus RARE Current Medications Hydrocodone Bitart/Acetaminophen ([place] 5mg-325mg) 1 tablet PO Q4H PRN PRN PRN Reason: Pain Score 6-10/10 Last Admin: 05/12/19 08:48 Dose: 1 tablet Documented by: [facility] Last Admin: 05/12/19 08:49 Dose: 81 mg Documented by: Atorvastatin Calcium (Lipitor) 40 mg PO QHS [facility] Last Admin: 05/11/19 21:02 Dose: 40 mg Documented by: Gabapentin (Neurontin) 200 mg PO QHS [facility] Last Admin: 05/11/19 21:06 Dose: 200 mg Documented by: Heparin Sodium (Porcine) (Heparin Na) 5,000 unit SC Q8 [facility] Last Admin: 05/12/19 05:19 Dose: 5,000 unit Documented by: Sodium Chloride () 1,000 mls @ 100 mls/hr IV .Q10H [facility]1983 Stop: 05/12/19 19:09 Nitroglycerin (Nitrostat) 0.4 mg SUBLINGUAL Q5M PRN PRN Reason: Chest Pain Ondansetron HCl (Zofran) 4 mg IV Q8H PRN PRN PRN Reason: NAUSEA/VOMITING Pantoprazole Sodium (Protonix) 40 mg PO DAILY [facility] Last Admin: 05/12/19 08:50 Dose: 40 mg Documented by: Potassium Chloride (K-Dur) 20 meq PO DAILY [facility] Last Admin: 05/12/19 08:50 Dose: 20 meq Documented by: Ranolazine (Ranexa) 1,000 mg PO BID [facility] Last Admin: 05/12/19 08:51 Dose: 1,000 mg Documented by: Sodium Chloride () 10 - 40 ml IV UD PRN PRN Reason: SALINE FLUSH Last Admin: 05/11/19 21:08 Dose: 10 ml Documented by: Tamsulosin HCl (Flomax) 0.4 mg PO DAILY@0830 [facility] Last Admin: 05/12/19 08:48 Dose: 0.4 mg Documented by: STROKE Vital Signs/Narrative: Vital Signs Temp Pulse Resp BP Pulse Ox 05/12/19 05:27 98.3 F 63 18 130/64 H 93 Medical Necessity - Tobacco Use Smoking Status: Never smoker Tobacco Use: Non-smoker Assessment/Plan All Active Problems (Last Updated 07/04/18 @ 16:09 by Paulino Jose, IN[employer]ORY [employer]ER-C) Vertigo (Acute) Laceration of head (Acute) Dyspnea on exertion (Acute) Status post total knee replacement, right (Resolved) 1. Dizziness, persistent, likely from medication side-effect vs BPPV Will need to rule out CVA Will order MRI of brain, meclizine prn, IVF, orthostatic vitals q shift 2. CAD s/p CABG, s/p stent, on aspirin, statin, ranexa 3. Status post left carpal tunnel surgery, 4. BPH, on flomax 5. Hyperlipidemia, on statin 6. DVT PPx- Heparin SC Code Visit Inpatient E&M: 70002 Subs Hosp L2
[2019-05-12 09:11] VITALS: BP 106/62; BP 115/66; PULSE 65
[2019-05-12 09:15] VITALS: BP 106/62; PULSE 65; RESP 16; TEMP 37; O2SAT 95
--- NOTE | 2019-05-12 09:31 | NURSING ---
pt very dizzy w/sitting from lying. unable to have pt stand for orthos at this time
[2019-05-12] MEDS: 0.9% Normal Saline 1,000 ML 100 ML IV (09:38)
[2019-05-12] MEDS: 0.9% Saline Lock 10 ML Syringe IV ×2 (09:44→15:56)
[2019-05-12] MEDS: Ondansetron 4 MG/2 ML Vial IV (09:44)
--- NOTE | 2019-05-12 09:45 | NURSING ---
medicated for nausea
[2019-05-12] MEDS: oxyCODONE 5 MG Tablet PO ×2 (13:40→19:56)
[2019-05-12] MEDS: Acetaminophen 500 MG Tablet 1000 MG PO ×2 (13:40→21:14)
--- NOTE | 2019-05-12 14:03 | MRI_ITS ---
STUDY: MRI BRAIN WITHOUT CONTRAST REASON FOR EXAM: Male, 83 years old. Dizziness for a couple of months TECHNIQUE: Standardized multiplanar fat and water weighted pulse sequences were obtained. COMPARISON: April 28, 2015 FINDINGS: Normal size of the ventricles and extra-axial spaces for the patient's age. There are a limited number of small white matter hyperintensities, distributed throughout the deep white matter tracts of the cerebral hemispheres, consistent with mild chronic white matter ischemic changes. Normal bilateral basal ganglia. Normal thalami. There is no extra-axial fluid accumulation. Normal flow voids within the major intracranial circulation suggesting patency by spin echo criteria. Normal sella turcica, pituitary gland, infundibular stalk, optic chiasm and hypothalamus. Normal tectal plate and pineal gland. Normal midbrain, evon and medulla. 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 Normal basal cisterns. Normal bilateral temporal bones. Normal bilateral internal auditory canals. There are bilateral ocular lens implants with otherwise normal intraorbital contents. Normal visualized paranasal sinuses. Hyperostosis frontalis interna. Normal visualized soft tissue structures. Normal visualized upper cervical spine. MRI/Brain without Contrast IMPRESSION: No evidence of acute infarct or hemorrhage. Electronically Signed: Benjie De MD at 16:18 EST Tel , Service support ,
[2019-05-12 14:30] VITALS: BP 102/61; PULSE 68; RESP 16; TEMP 36.7; O2SAT 93
[2019-05-12] MEDS: Meclizine 12.5 MG Tablet PO ×2 (14:57→21:14)
--- NOTE | 2019-05-12 14:58 | NURSING ---
PT LEAVING UNIT VIA BED FOR MRI. DR FATIMA PAGED APPROX 25 MINUTES AGO, NO RETURN CALL YET
--- NOTE | 2019-05-12 15:10 | RAD_ITS ---
HISTORY: RECENT CARPAL TUNNEL SURGERY, THUMB PAIN AFTER RECENT FALL COMPARISON: None FINDINGS: # of images incl. paperwork: 2 Osteopenia. Arthritis at the distal radial ulnar joint. Joint space narrowing at the radiocarpal joint. No fracture or subluxation. No soft tissue abnormality. The carpal bones have a normal appearance. The distal radius and ulna are unremarkable. No evidence of radiopaque foreign body. RAD/Wrist 2 Views IMPRESSION: No evidence of acute fracture or dislocation to the right wrist. Findings bony detail of the distal radius is obscured by the patient's splint. at 0147 Reported and signed by: Regan Padron MD Electronically Signed: Regan Padron MD at 1:45 EST Tel , Service support ,
[2019-05-12 19:49] VITALS: BP 140/77; PULSE 65; RESP 18; TEMP 36.7; O2SAT 94
[2019-05-12] MEDS: Atorvastatin Calcium 40 MG Tablet PO (21:14)
[2019-05-12] MEDS: Gabapentin 100 MG Capsule 200 MG PO (21:15)
[2019-05-13 04:51] VITALS: BP 140/83; PULSE 65; RESP 18; TEMP 36.5; O2SAT 93
[2019-05-13] MEDS: Meclizine 12.5 MG Tablet PO ×3 (04:58→20:11)
[2019-05-13] MEDS: Heparin Injection (Vial) 5,000 UNIT/ML VIAL 5000 UNIT SC ×3 (04:58→21:11)
[2019-05-13] MEDS: oxyCODONE 5 MG Tablet PO ×2 (04:58→13:15)
[2019-05-13] MEDS: Tamsulosin HCl 0.4 MG Capsule PO (08:01)
[2019-05-13] MEDS: Ranolazine 500 MG Tablet 1000 MG PO ×2 (08:01→21:11)
[2019-05-13] MEDS: Pantoprazole Sodium 40 MG Tablet PO (08:01)
[2019-05-13] MEDS: Aspirin E.C. 81 MG Tablet PO (08:02)
--- NOTE | 2019-05-13 08:02 | CON.PCM_ITS ---
Reason for Consult Date of Consultation: 05/13/19 Reason for Consultation: left hand pain. requested by dr mendoza History of Present Illness: The patient is a 83 year old M patient with recent history of left small finger trigger release, carpal tunnel release and cubital tunnel release. He remains in a long-arm posterior splint. He fell due to dizziness. He reports continued triggering in his left small finger and pain at the base of his left thumb. 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 He also has been braced in the past. He notes that since the surgery is thumb pain has increased. Overall the pain in his thumb is mild to moderate in nature. Its painful with movement of his thumb. No associated erythema or excessive swelling. Past Medical History Past Medical History (Chronic Problems): Chronic Problems (Last Reviewed 12/30/17 @ 11:41 by Leeanna Calvo) Prinzmetal angina (Chronic) HLD (hyperlipidemia) (Chronic) HTN (hypertension) (Chronic) CAD (coronary artery disease) (Chronic) Malignant pericardial effusion (Chronic) Atrial flutter (Chronic) Palpitations (Chronic) Shortness of breath (Chronic) Precordial chest pain (Chronic) Aortocoronary bypass status (Chronic) History of percutaneous transluminal coronary angioplasty (Chronic) Abnormal result of cardiovascular function study, unspecified (Chronic) Pain in limb (Chronic) Dizziness and giddiness (Chronic) Fatigue (Chronic) Mild aortic insufficiency (Chronic) Pain in left shoulder (Chronic) Atherosclerosis of coronary artery bypass graft(s), unspecified, with other forms of angina pectoris (Chronic) Intermittent claudication (Chronic) Medical History: Medical History (Last Reviewed 12/30/17 @ 11:41 by Leeanna Calvo) Prinzmetal angina (Chronic) I20.1 HLD (hyperlipidemia) (Chronic) E78.5 HTN (hypertension) (Chronic) I10 CAD (coronary artery disease) (Chronic) I25.10 Malignant pericardial effusion (Chronic) C80.1, I31.8 Atrial flutter (Chronic) I48.92 Palpitations (Chronic) R00.2 Shortness of breath (Chronic) R06.02 Precordial chest pain (Chronic) R07.2 Aortocoronary bypass status (Chronic) Z95.1 History of percutaneous transluminal coronary angioplasty (Chronic) Z98.61 Abnormal result of cardiovascular function study, unspecified (Chronic) R94.30 Pain in limb (Chronic) M79.609 Dizziness and giddiness (Chronic) R42 Fatigue (Chronic) R53.83 Mild aortic insufficiency (Chronic) I35.1 Pain in left shoulder (Chronic) M25.512 Atherosclerosis of coronary artery bypass graft(s), unspecified, with other forms of angina pectoris (Chronic) I25.708 Intermittent claudication (Chronic) I73.9 Allergies No Known Allergies Allergy (Verified 05/11/19 12:26) Home Medications: Ambulatory Orders Medication Instructions Recorded Tamsulosin HCl [Flomax] 0.4 mg PO DAILY 03/06/16 nitroglycerin 0.4 mg sublingual 0.4 mg SUBLINGUAL Q5M PRN #25 tab 12/30/17 tablet Multivitamin [Multiple Vitamins] 1 ea PO DAILY 01/10/18 atorvastatin 40 mg tablet 40 mg PO QHS tab 06/26/18 aspirin 81 mg tablet,delayed 81 mg PO DAILY 07/04/18 release omeprazole 40 mg capsule,delayed 40 mg PO DAILY 07/04/18 release potassium chloride ER 20 mEq 20 meq PO DAILY 07/04/18 tablet,extended release simethicone 180 mg capsule 180 mg PO BID cap 01/09/19 tramadol 50 mg tablet 50 - 100 mg PO Q6H PRN PRN 01/09/19 Gabapentin [Neurontin] 200 mg PO QHS 05/11/19 Ranolazine [Ranexa] 1,000 mg PO BID 05/11/19 Surgical History: Surgical History (Last Updated 07/04/18 @ 16:09 by Paulino Jose NP-C) Status post total knee replacement, right (Resolved) Z96.651 H/O cardiac radiofrequency ablation Onset Date: ~10/2006 Z98.890 History of PTCA Z98.61 PTCA of the CFX intracoronary stent History of arthroscopy Onset Date: ~07/2011 Z98.890 & repair of right rotator cuff tear History of left heart catheterization (LHC) Onset Date: ~09/2007 Z98.890 05/2005, 09/2007, 10/2006, 02/2008, 10/2013, 03/30/2016 Hx of CABG Onset Date: ~05/2005 Z95.1 VAZQUEZ to LAD, SVG to RCA and diag branch of LAD and repair of dissection with graft and reimplantation of SVG to RCA and diag branch History of bilateral knee replacement Z96.653 Surgical History: coronary bypass surgery, total knee arthroplasty - Bilateral, - - Left arm surgery-carpal tunnel, coronary artery stent placement, ablation for cardiac arrhythmia, shoulder surgery Psychiatric History: No pertinent psych hx Lives: Alone Smoking Status: Never smoker Tobacco Use: Non-smoker Alcohol: None Drugs: None - *Family History Paternal Family History: Family History (Last Reviewed 07/04/18 @ 16:03 by Crystal Nobles) Father CAD (coronary artery disease) CHF (congestive heart failure) Mother Heart disease Brother Diabetes Cancer Hx of CABG CAD (coronary artery disease) Sister COPD (chronic obstructive pulmonary disease) Diabetes History Items: No pertinent history Review of Systems Constitutional: Denies: Chills, Fever, Weight Change HEENT: Denies: Head Aches, Sinus Congestion, Sinus Drainage Cardiovascular: Denies: Chest Pain, Palpitations Respiratory: Denies: Cough, Shortness of breath at rest, Sputum production Gastrointestinal: Denies: Abdominal Pain, Nausea, Vomiting Genitourinary: Denies: Dysuria Musculoskeletal: Denies: Joint Pain, Joint Tenderness Skin: Denies: Rash, Wounds Neurological: Reports: - - Dizziness. Denies: Focal weakness, Numbness, Tingling Psychiatric: Denies: Anxiety, Depression, Homicidal Ideations, Suicidal Ideations Hematologic/ Lymphatic: Denies: Easy Bruising, Easy Bleeding Patient Problems: Active and Suspected Problems (Last Reviewed 12/30/17 @ 11:41 by Leeanna Calvo) Vertigo (Acute) Laceration of head (Acute) Objective: Left wrist radiographs AP and lateral show severe DRUJ, proximal and mid radial carpal arthritis and severe first CMC osteoarthritis. - Physical Exam Vitals/I&O's: Vital Signs Temp Pulse Resp BP Pulse Ox 97.7 F L 65 18 140/83 H 93 05/13/19 04:51 05/13/19 04:51 05/13/19 04:51 05/13/19 04:51 05/13/19 04:51 Oxygen Delivery Method Room Air Weight: 245 lb Body Mass Index (BMI) 37.2 Orthostatic Vital Signs Start: 05/12/19 09:10 Freq: q24h Status: Active Protocol: Activity Type Activity Date Activity User E-Sign Co-Sign Detail Recorded Client Recorded Date Recorded By Document 05/12/19 09:11 [id number] 05/12/19 09:31 RADHA 05/12/19 09:11 Orthostatic Vitals Standing -Extremity Use Right Arm Sitting -Blood Pressure (90/60-120/80) 115/66 -Extremity Use Right Arm Lying -Blood Pressure (90/60-120/80) 106/62 -Extremity Use Right Arm -Pulse Rate (60-100) 65 Intake and Output for Last 24 Hours 05/11/19 05/12/19 05/13/19 23:59 23:59 23:59 Intake Total 500 / 1000 2500 / 2500 Output Total 2950 / 2950 400 / 400 Balance 500 / 200 -450 / -450 -400 / -400 General: Alert, Oriented x3, Cooperative Extremities: - - Left wrist exam. Patient remains in a long-arm posterior splint. Tolerating splint well. Able to wiggle all digits. All digits are warm pink with brisk cap refill. Thumb is exposed. No erythema at the base of the thumb. Tenderness palpation at the base of thumb. Positive grind test. Unable to appreciate triggering of the small finger due to limitations in range of motion from the splint. Current Medications Acetaminophen (Tylenol) 1,000 mg PO Q8 ON LICENSE OF [facility] Last Admin: 05/13/19 05:03 Dose: Not Given Documented by: [facility] Last Admin: 05/12/19 08:49 Dose: 81 mg Documented by: Atorvastatin Calcium (Lipitor) 40 mg PO QHS ON LICENSE OF [facility] Last Admin: 05/12/19 21:14 Dose: 40 mg Documented by: Gabapentin (Neurontin) 200 mg PO QHS ON LICENSE OF [facility] Last Admin: 05/12/19 21:15 Dose: 200 mg Documented by: Heparin Sodium (Porcine) (Heparin Na) 5,000 unit SC Q8 ON LICENSE OF [facility] Last Admin: 05/13/19 04:58 Dose: 5,000 unit Documented by: Meclizine HCl (Antivert) 12.5 mg PO 4X/DAY PRN PRN PRN Reason: Vertigo Last Admin: 05/13/19 04:58 Dose: 12.5 mg Documented by: Nitroglycerin (Nitrostat) 0.4 mg SUBLINGUAL Q5M PRN PRN Reason: Chest Pain Ondansetron HCl (Zofran) 4 mg IV Q8H PRN PRN PRN Reason: NAUSEA/VOMITING Last Admin: 05/12/19 09:44 Dose: 4 mg Documented by: Oxycodone HCl (Oxyir) 5 mg PO Q6H PRN PRN PRN Reason: Pain Score 6-10/10 Last Admin: 05/13/19 04:58 Dose: 5 mg Documented by: Pantoprazole Sodium (Protonix) 40 mg PO DAILY ON LICENSE OF [facility] Last Admin: 05/12/19 08:50 Dose: 40 mg Documented by: Ranolazine (Ranexa) 1,000 mg PO BID ON LICENSE OF [facility] Last Admin: 05/12/19 21:15 Dose: 1,000 mg Documented by: Sodium Chloride () 10 - 40 ml IV UD PRN PRN Reason: SALINE FLUSH Last Admin: 05/12/19 15:56 Dose: 10 ml Documented by: Tamsulosin HCl (Flomax) 0.4 mg PO DAILY@0830 ON LICENSE OF [facility] Last Admin: 05/12/19 08:48 Dose: 0.4 mg Documented by: Assessment/Plan All Active Problems (Last Updated 07/04/18 @ 16:09 by Paulino Jose NP-C) Vertigo (Acute) Laceration of head (Acute) Dyspnea on exertion (Acute) Status post total knee replacement, right (Resolved) Patient is status post left small trigger finger release, carpal tunnel release and cubital tunnel release. With increased thumb pain. Patient notes he is chronically treated for osteoarthritis of the wrist. He does report that he has some continued triggering after the small trigger finger release. He is in an ulnar gutter splint due to his cubital tunnel release. Overall his postoperative pain is well controlled. He has increased pain at the base of the thumb. He has difficulty with pinching. This is all consistent with chronic first CMC osteoarthritis and chronic wrist osteoarthritis. At this time I recommended symptomatic management due to his postoperative wrist splint but not able to place the brace. Patient reports having braces at home. He was instructed to follow-up with Dr. Smith at his regular scheduled visit to evaluate the continued catching in his pinky. Likely related to postoperative scarring range of motion and therapy will will probably help this. Maintain his current splint until postop visit. Recommend anti-inflammatory treatment nonsteroidal anti-inflammatories if appropriate or could try short course of prednisone to decrease inflammation and pain. Likely his thumb arthritis and wrist arthritis are flared by recent surgery and splint wear. Signature
[2019-05-13 08:03] VITALS: BP 137/75; BP 137/81; BP 139/77; PULSE 61; PULSE 63; PULSE 72
[2019-05-13 08:04] VITALS: BP 137/76; PULSE 58; RESP 14; TEMP 36.5; O2SAT 93
[2019-05-13] MEDS: Acetaminophen 500 MG Tablet 1000 MG PO ×3 (08:14→21:11)
--- NOTE | 2019-05-13 09:31 | PCM.PN.HOSP ---
Patient Problems: Active and Suspected Problems (Last Reviewed 12/30/17 @ 11:41 by Leeanna Calvo) Vertigo (Acute) Laceration of head (Acute) Subjective: Follow-up on Vertigo: Patient was seen and examined. He feels less dizzy. He denied any chest pain or palpitation. Pain in the left upper extremity is better once he has the LUE on ice. Orthostatic vitals have been negative. Seen by PT and OT yesterday but he was very dizzy. Objective: Physical exam: General: Alert, Oriented x3, Cooperative, No apparent distress HEENT: Atraumatic, PERRLA, EOMI, Normocephalic Oral: Moist Mucosa Neck: Supple, No JVD Lungs: Clear to auscultation, Normal air movement Cardiovascular: Regular rate, Regular Rhythm, Normal S1, Normal S2, No murmurs Abdomen: Bowel Sounds Present, Soft, Non Tender, Non-Distended, No Hepato-splenomegaly Extremities: No edema Skin: No rashes, No breakdown Musculoskeletal: No Tenderness to Palpation of Joints or Extremities Lymphatic: No Cervical, Supraclavicular, or Inguinal Adenopathy Neurological: Cranial nerves II-XII grossly intact, Neuro grossly intact Psych/Mental Status: Normal Affect, Appropriate Vitals/I&O's: Vital Signs Temp Pulse Resp BP Pulse Ox 97.7 F L 58 L 14 137/76 H 93 05/13/19 08:04 05/13/19 08:04 05/13/19 08:04 05/13/19 08:04 05/13/19 08:04 Oxygen Delivery Method Room Air Weight: 111.13 kg Body Mass Index (BMI) 37.2 Orthostatic Vital Signs Start: 05/12/19 09:10 Freq: q24h Status: Active Protocol: Activity Type Activity Date Activity User E-Sign Co-Sign Detail Recorded Client Recorded Date Recorded By Document 05/13/19 08:03 [id number] 05/13/19 08:04 05/13/19 08:03 Orthostatic Vitals Standing -Blood Pressure (90/60-120/80) 137/81 H -Extremity Use Right Arm -Pulse Rate (60-100) 72 Sitting -Blood Pressure (90/60-120/80) 137/75 H -Extremity Use Right Arm -Pulse Rate (60-100) 63 Lying -Blood Pressure (90/60-120/80) 139/77 H -Extremity Use Right Arm -Pulse Rate (60-100) 61 Intake and Output for Last 24 Hours 05/11/19 05/12/19 05/13/19 23:59 23:59 23:59 Intake Total 500 / 1000 2500 / 2500 Output Total 2950 / 2950 650 / 650 Balance 500 / 200 -450 / -450 -650 / -650 Current Medications Acetaminophen (Tylenol) 1,000 mg PO Q8 [facility] Last Admin: 05/13/19 08:14 Dose: 1,000 mg Documented by: Aspirin (Ecotrin) 81 mg PO DAILYCM [facility] Last Admin: 05/13/19 08:02 Dose: 81 mg Documented by: Atorvastatin Calcium (Lipitor) 40 mg PO QHS [facility] Last Admin: 05/12/19 21:14 Dose: 40 mg Documented by: Gabapentin (Neurontin) 200 mg PO QHS [facility] Last Admin: 05/12/19 21:15 Dose: 200 mg Documented by: Heparin Sodium (Porcine) (Heparin Na) 5,000 unit SC Q8 [facility] Last Admin: 05/13/19 04:58 Dose: 5,000 unit Documented by: Sodium Chloride () 1,000 mls @ 100 mls/hr IV .Q10H [facility] Stop: 05/14/19 00:24 Magnesium Hydroxide (Milk Of Magnesia) 30 ml PO DAILY PRN PRN Reason: Constipation Meclizine HCl (Antivert) 12.5 mg PO 4X/DAY PRN PRN PRN Reason: Vertigo Last Admin: 05/13/19 04:58 Dose: 12.5 mg Documented by: Nitroglycerin (Nitrostat) 0.4 mg SUBLINGUAL Q5M PRN PRN Reason: Chest Pain Ondansetron HCl (Zofran) 4 mg IV Q8H PRN PRN PRN Reason: NAUSEA/VOMITING Last Admin: 05/12/19 09:44 Dose: 4 mg Documented by: Oxycodone HCl (Oxyir) 5 mg PO Q6H PRN PRN PRN Reason: Pain Score 6-10/10 Last Admin: 05/13/19 04:58 Dose: 5 mg Documented by: Pantoprazole Sodium (Protonix) 40 mg PO DAILY [facility] Last Admin: 05/13/19 08:01 Dose: 40 mg Documented by: Ranolazine (Ranexa) 1,000 mg PO BID [facility] Last Admin: 05/13/19 08:01 Dose: 1,000 mg Documented by: Senna/Docusate Sodium (Senokot-S, Alisson-Colace) 2 tablet PO DAILY PRN PRN PRN Reason: CONSTIPATION Sodium Chloride () 10 - 40 ml IV UD PRN PRN Reason: SALINE FLUSH Last Admin: 05/12/19 15:56 Dose: 10 ml Documented by: Tamsulosin HCl (Flomax) 0.4 mg PO DAILY@0830 [facility] Last Admin: 05/13/19 08:01 Dose: 0.4 mg Documented by: STROKE Vital Signs/Narrative: Vital Signs Temp Pulse Pulse Pulse Pulse Resp BP 05/13/19 08:04 97.7 F L 58 L 14 137/76 H 05/13/19 08:03 61 63 72 BP BP BP Pulse Ox 05/13/19 08:04 93 05/13/19 08:03 139/77 H 137/75 H 137/81 H Medical Necessity - Tobacco Use Smoking Status: Never smoker Tobacco Use: Non-smoker Assessment/Plan All Active Problems (Last Updated 07/04/18 @ 16:09 by Paulino Jose, MARGIN CLERK-C) Vertigo (Acute) Laceration of head (Acute) Dyspnea on exertion (Acute) Status post total knee replacement, right (Resolved) 1. Vertigo, likely multifactorial from suspected BPPV, dehydration versus medication side effect(taking his pain meds without much food) MRI of the brain is negative for acute cerebellar stroke Improved with IV hydration and meclizine Continue same, will wait for PT and OT's evaluation 2. CAD s/p CABG, s/p stent, on aspirin, statin, ranexa 3. Status post left carpal tunnel surgery, trapezius consulted, recommended therapy to the extremity He will need to follow-up on therapy to the left upper extremity aggressively in the outpatient until he sees Dr. Smith 4. BPH, on flomax 5. Hyperlipidemia, on statin 6. DVT PPx- Heparin SC Code Visit Inpatient E&M: 11335 Subs Hosp L2
[2019-05-13] MEDS: 0.9% Normal Saline 1,000 ML 100 ML IV ×2 (10:36→21:10)
[2019-05-13] MEDS: 0.9% Saline Lock 10 ML Syringe IV (10:38)
[2019-05-13 14:00] VITALS: BP 123/69; PULSE 66; RESP 16; TEMP 37; O2SAT 94
[2019-05-13 20:00] VITALS: BP 151/82; PULSE 70; RESP 18; TEMP 36.6; O2SAT 94
[2019-05-13] MEDS: Atorvastatin Calcium 40 MG Tablet PO (21:10)
[2019-05-14] MEDS: oxyCODONE 5 MG Tablet PO (00:04)
[2019-05-14 02:00] VITALS: BP 125/71; PULSE 68; RESP 17; TEMP 37.1; O2SAT 94
[2019-05-14] MEDS: Acetaminophen 500 MG Tablet 1000 MG PO ×3 (06:20→21:31)
[2019-05-14] MEDS: Heparin Injection (Vial) 5,000 UNIT/ML VIAL 5000 UNIT SC ×3 (06:20→21:32)
[2019-05-14 08:00] VITALS: BP 120/7; BP 125/71; BP 126/71; PULSE 65; PULSE 66
[2019-05-14] MEDS: Ranolazine 500 MG Tablet 1000 MG PO ×2 (09:13→21:31)
[2019-05-14] MEDS: Tamsulosin HCl 0.4 MG Capsule PO (09:13)
[2019-05-14] MEDS: Pantoprazole Sodium 40 MG Tablet PO (09:13)
[2019-05-14] MEDS: Aspirin E.C. 81 MG Tablet PO (09:13)
[2019-05-14 09:18] VITALS: BP 126/71; PULSE 64; RESP 18; TEMP 36.7; O2SAT 94
[2019-05-14] MEDS: Magnesium Hydroxide 30 ML UDC PO (09:29)
--- NOTE | 2019-05-14 11:20 | DCINST_ITS ---
- Discharge Diagnoses Current Active Problems: Current Active and Chronic Problems (Last Reviewed 12/30/17 @ 11:41 by Leeanna Calvo) Vertigo (Acute) Laceration of head (Acute) You will use the following diet at home:: Cardiac Your food should be the consistency of: Regular Discharge Activity: May Not Drive Call your doctor if you observe: Fever of 101 or Higher, Coldness, Increased Pain, Numbness or Tingling, Inability to urinate, Inability to have a bowel movement, Shortness of breath, Dizziness, Fainting spells, Swelling in the ankles, Chest pain, Prolonged hiccoughing, Increased palpitations (irregular heartbeat), Calf discomfort Allergies/Adverse Reactions: Allergies No Known Allergies Allergy (Verified 05/11/19 12:26) Medications to take at Discharge Tamsulosin HCl [Flomax] 0.4 mg PO DAILY 03/06/16 nitroglycerin 0.4 mg sublingual tablet 0.4 mg SUBLINGUAL Q5M PRN #25 tab 12/30/17 Multivitamin [Multiple Vitamins] 1 ea PO DAILY 01/10/18 atorvastatin 40 mg tablet 40 mg PO QHS tab 06/26/18 aspirin 81 mg tablet,delayed release 81 mg PO DAILY 07/04/18 omeprazole 40 mg capsule,delayed release 40 mg PO DAILY 07/04/18 potassium chloride ER 20 mEq tablet,extended release 20 meq PO DAILY 07/04/18 simethicone 180 mg capsule 180 mg PO BID cap 01/09/19 tramadol 50 mg tablet 50 - 100 mg PO Q6H PRN PRN 01/09/19 Gabapentin [Neurontin] 200 mg PO QHS 05/11/19 Ranolazine [Ranexa] 1,000 mg PO BID 05/11/19 Meclizine HCl [Antivert] 12.5 mg PO 4X/DAY PRN PRN #30 tab 05/14/19 The following prescriptions were given: Meclizine HCl [Antivert] 12.5 mg PO 4X/DAY PRN PRN #30 tab PRN Reason: Vertigo Transmission Status: Pending to [facility] Primary Care Physician: [facility], MD [Primary Care Provider] - Please follow up with your Primary Care Physician in: in 2 weeks Test Results: Test results from this visit will be discussed in further detail at your follow- up appointment, if applicable. Please Follow Up With: Peter Smith, DO - \ When: for left CTS surgey and trigger finger
--- NOTE | 2019-05-14 11:40 | CASEMGMT ---
KACI CM Face to Face with patient for initial transition planning/care coordination assessment. RN CM introduced self and role at [facility]. Patient lying in bed, alert and oriented, son at bedside. Patient willing to participate in assessment and is able to answer all questions appropriately. Care providers, pharmacy, and demographics verified. Patient wishes to discharge home but is willing to go to SNF at discharge if appropriate. Son is stating patient needs more assistance at home. Patient states he has no further needs or concerns at this time. SW updated regarding requets for SNF. CM to follow for discharge planning needs that may arise. PCP: [facility] Specialists: Kandace, cardiology; Maria Rapcarleen, ortho Preferred Pharmacy: [facility] Insurance: [employer], [employer] Prescription Benefit: yes Living Will/HPOA: yes, son Benjie Bustos LNOK: son Living Arrangements: Patient lives alone in 1 story home with ramp to enter the home. Transportation: self/son DME/HHC: Patient states he has shower chair, raised toilet, cane, walker, grab bars. Patient denies previous HHC or SNF. Disposition Plan: SNF vs HHC. Kathy SALOMON, RN, CM
[2019-05-14] MEDS: 0.9% Saline Lock 10 ML Syringe IV (11:45)
[2019-05-14] MEDS: proMETHazine 25 MG/ML Syringe 12.5 MG IV (11:45)
--- NOTE | 2019-05-14 12:28 | CASEMGMT ---
Social Work Dr. Pritchard reporting pt and son indicating pt cannot return home alone at this time and will need SNF placement. SW met with pt and son Benjie and discussed d/c plan. Pt lives at home alone and recently had surgery on dominant hand and is having vertigo. Due to these factors pt son does not feel pt is safe home alone. Pt is agreeable to short term SNF placement. SW explained medicare coverage of SNF and provided written list of area SNFS. Pt and son first choice is TCU. SW to check on bed availability and son and pt to review list and make 2nd and 3rd choice. Phone call to [facility] and to referral line for TCU. VM left on both phone inquiring about bed availabilty. D/C planned for tomorrow. SW to await return call. Plan: SNF, pending acceptance [facility] Benite[facility]
--- NOTE | 2019-05-14 13:01 | CASEMGMT ---
Social Work Return call from [facility] in TCU and they are able to accept pt to TCU tomorrow. SW met with pt and son and informed and they are both agreeable. Plan: TCU, Tuesday if medically stable. ALES[facility] Benitez
[2019-05-14 14:37] VITALS: BP 119/70; PULSE 65; RESP 18; TEMP 36.9; O2SAT 94
--- NOTE | 2019-05-14 17:49 | PN_ITS ---
Patient Problems: Active and Suspected Problems (Last Reviewed 12/30/17 @ 11:41 by Leeanna Calvo) Vertigo (Acute) Laceration of head (Acute) Subjective: Patient is still feeling dizzy and vertigo. Has nausea sensation. Patient also had left carpal tunnel repair and complain of pain. Patient was seen by Dr. Miller. Recommended NSAID or steroid. NSAID is not recommended as patient has history of Prinzmetal angina and coronary artery disease. Vitals/I&O's: Vital Signs Temp Pulse Resp BP Pulse Ox 98.5 F 65 18 119/70 94 05/14/19 14:37 05/14/19 14:37 05/14/19 14:37 05/14/19 14:37 05/14/19 14:37 Oxygen Delivery Method Room Air Weight: 245 lb Body Mass Index (BMI) 37.2 Orthostatic Vital Signs Start: 05/12/19 09:10 Freq: q24h Status: Active Protocol: Activity Type Activity Date Activity User E-Sign Co-Sign Detail Recorded Client Recorded Date Recorded By Document 05/14/19 08:00 [facility] [id number] 05/14/19 09:22 [facility] 05/14/19 08:00 Orthostatic Vitals Standing -Blood Pressure (90/60-120/80) 120/7 L -Extremity Use Right Arm Sitting -Blood Pressure (90/60-120/80) 125/71 H -Extremity Use Right Arm -Pulse Rate (60-100) 66 Lying -Blood Pressure (90/60-120/80) 126/71 H -Extremity Use Right Arm -Pulse Rate (60-100) 65 Intake and Output for Last 24 Hours 05/12/19 05/13/19 05/14/19 23:59 23:59 23:59 Intake Total 2500 / 2500 2000.00 / 2400.00 1900 / 1900 Output Total 2950 / 2950 2250 / 3025 1850 / 1850 Balance -450 / -450 -250.00 / -625.00 50 / 50 General: Alert, Oriented x3, Cooperative HEENT: Atraumatic, PERRLA, EOMI, Normocephalic Neck: Supple, No JVD, Negative Carotid Bruits Lungs: Clear to auscultation, Normal air movement Cardiovascular: Regular rate, No murmurs Abdomen: Bowel Sounds Present, Soft, Non Tender Extremities: No edema, Capillary Refill Less than 3 Seconds Skin: No rashes, No breakdown Musculoskeletal: No Tenderness to Palpation of Joints or Extremities, Arthritic Changes Neurological: Cranial nerves II-XII grossly intact, Deep Tendon Reflexes 2+/4 and Symmetrical, Neuro grossly intact Psych/Mental Status: Normal Affect, Appropriate Current Medications Acetaminophen (Tylenol) 1,000 mg PO Q8 [facility] Last Admin: 05/14/19 14:32 Dose: 1,000 mg Documented by: Aspirin (Ecotrin) 81 mg PO DAILYCM [facility] Last Admin: 05/14/19 09:13 Dose: 81 mg Documented by: Atorvastatin Calcium (Lipitor) 40 mg PO QHS [facility] Last Admin: 05/13/19 21:10 Dose: 40 mg Documented by: Heparin Sodium (Porcine) (Heparin Na) 5,000 unit SC Q8 [facility] Last Admin: 05/14/19 14:32 Dose: 5,000 unit Documented by: Magnesium Hydroxide (Milk Of Magnesia) 30 ml PO DAILY PRN PRN Reason: Constipation Last Admin: 05/14/19 09:29 Dose: 30 ml Documented by: Meclizine HCl (Antivert) 12.5 mg PO 4X/DAY PRN PRN PRN Reason: Vertigo Last Admin: 05/13/19 20:11 Dose: 12.5 mg Documented by: Nitroglycerin (Nitrostat) 0.4 mg SUBLINGUAL Q5M PRN PRN Reason: Chest Pain Ondansetron HCl (Zofran) 4 mg IV Q8H PRN PRN PRN Reason: NAUSEA/VOMITING Last Admin: 05/12/19 09:44 Dose: 4 mg Documented by: Oxycodone HCl (Oxyir) 5 mg PO Q6H PRN PRN PRN Reason: Pain Score 6-10/10 Last Admin: 05/14/19 00:04 Dose: 5 mg Documented by: Pantoprazole Sodium (Protonix) 40 mg PO DAILY [facility] Last Admin: 05/14/19 09:13 Dose: 40 mg Documented by: Promethazine HCl (Phenergan) 12.5 mg IV Q4H PRN PRN PRN Reason: NAUSEA/VOMITING Last Admin: 05/14/19 11:45 Dose: 12.5 mg Documented by: Ranolazine (Ranexa) 1,000 mg PO BID [facility] Last Admin: 05/14/19 09:13 Dose: 1,000 mg Documented by: Senna/Docusate Sodium (Senokot-S, Alisson-Colace) 2 tablet PO DAILY PRN PRN PRN Reason: CONSTIPATION Sodium Chloride () 10 - 40 ml IV UD PRN PRN Reason: SALINE FLUSH Last Admin: 05/14/19 11:45 Dose: 20 ml Documented by: Tamsulosin HCl (Flomax) 0.4 mg PO DAILY@0830 [facility] Last Admin: 05/14/19 09:13 Dose: 0.4 mg Documented by: STROKE Vital Signs/Narrative: Vital Signs Temp Pulse Resp BP Pulse Ox 05/14/19 14:37 98.5 F 65 18 119/70 94 Medical Necessity - Tobacco Use Smoking Status: Never smoker Tobacco Use: Non-smoker Assessment/Plan All Active Problems (Last Updated 07/04/18 @ 16:09 by Paulino Jose [facility] [employer]) Vertigo (Acute) Laceration of head (Acute) Dyspnea on exertion (Acute) Status post total knee replacement, right (Resolved) 83-year-old male with multiple comorbidities admitted with vertigo, dizziness, nausea and vomiting after he took tramadol for post op pain of left carpal surgery. Patient also fell at home but denies loss of consciousness. He had a small laceration on his head which did not require repair or suture as per ER physician. 1. Vertigo, likely multifactorial from suspected BPPV, dehydration versus medication side effect(taking his pain meds without much food) MRI of the brain is negative for acute cerebellar stroke Patient is still gets intermittent nausea, dizziness and vertigo. On symptomatic management. PT and OT ordered. On further discussion with the son, he he prefers patient to be discharged to SNF as he lives alone. 2. CAD s/p CABG, s/p stent, on aspirin, statin, ranexa 3. Status post left carpal tunnel surgery, trapezius consulted, recommended therapy to the extremity: Seen by Dr. Miller. He recommended NSAIDs/steroid as patient is not a good candidate for NSAID therefore started on prednisone. He will need to follow-up on therapy to the left upper extremity aggressively in the outpatient until he sees Dr. Smith 4. BPH, on flomax 5. Hyperlipidemia, on statin 6. DVT PPx- Heparin SC Code Visit Inpatient E&M: 21185 Subs Hosp L2
[2019-05-14] MEDS: predniSONE 20 MG Tablet 40 MG PO (18:59)
[2019-05-14 21:18] VITALS: BP 113/57; PULSE 61; RESP 18; TEMP 37; O2SAT 94
[2019-05-14] MEDS: Atorvastatin Calcium 40 MG Tablet PO (21:31)
[2019-05-14] MEDS: Meclizine 12.5 MG Tablet PO (21:32)
[2019-05-15 03:00] VITALS: BP 140/77; PULSE 66; RESP 18; TEMP 36.8; O2SAT 94
[2019-05-15] MEDS: Heparin Injection (Vial) 5,000 UNIT/ML VIAL 5000 UNIT SC (05:59)
[2019-05-15] MEDS: Acetaminophen 500 MG Tablet 1000 MG PO ×2 (05:59→13:06)
[2019-05-15] MEDS: oxyCODONE 5 MG Tablet PO (07:18)
[2019-05-15 07:50] VITALS: BP 149/72; PULSE 67; RESP 18; TEMP 36.7; O2SAT 98
[2019-05-15] MEDS: Aspirin E.C. 81 MG Tablet PO (07:51)
[2019-05-15] MEDS: Tamsulosin HCl 0.4 MG Capsule PO (07:52)
[2019-05-15] MEDS: Pantoprazole Sodium 40 MG Tablet PO (07:52)
[2019-05-15] MEDS: Ranolazine 500 MG Tablet 1000 MG PO (07:53)
[2019-05-15] MEDS: predniSONE 20 MG Tablet 40 MG PO (07:56)
[2019-05-15] MEDS: Meclizine 12.5 MG Tablet PO (07:59)
--- NOTE | 2019-05-15 09:52 | CASEMGMT ---
Social Work Note Pt is discharging to TCU today. SW placed a call to Marielos in TCU and left her a message informing her that pt will be discharged to TCU today. Plan: TCU today Kathy Schwartz MSW, TOMOGRAPHIC TECH
--- NOTE | 2019-05-15 10:11 | PCM.TXEXTCAR ---
- Diet 05/11/19 18:27 Diet: Regular Diet Food consistency:: Regular Liquid Consistency:: Regular/Thin Is pt able to select menu?: Yes - Routine Orders/Code Status Suppository Type: Dulcolax 10mg Suppository Frequency: Daily PRN - Wound(s) left arm Wound Type: Surgical Incision HEAD Wound Type: Abrasion - Therapies Physical Therapy: Eval and Treat Occupational Therapy: Eval and Treat Speech Therapy: Eval and Treat - Allergies/Procedures Done in Hospital Allergies/Adverse Reactions: Allergies No Known Allergies Allergy (Verified 05/11/19 12:26) - Type of Care/Length of Stay Estimated LOS: Convalescent Care Less Than 30 days Type of Care Needed: Skilled Rehab Potential: Good Prognosis: Good - Additional Orders/Day of Discharge Day of Discharge: 05/15/19 - Follow Up Care Primary Care Physician: Kaiser Pan Chi, MD [Primary Care Provider] - Please follow up with your Primary Care Physician in: in 2 weeks Please Follow Up With: Asif Pan MD When: Tuesday Please Follow Up With: Peter Smith DO When: foe left CTS surgery and trigger finger
--- NOTE | 2019-05-15 10:13 | PCM.DC.SUM ---
Discharge Date and Diagnosis Date of Admission: 05/11/19 Date of Discharge: 05/15/19 - Primary Discharge Diagnosis Active and Suspected Problems (Last Reviewed 12/30/17 @ 11:41 by Leeanna Calvo) Vertigo (Acute) Laceration of head (Acute) - Secondary Discharge Diagnosis Chronic Problems (Last Reviewed 12/30/17 @ 11:41 by Leeanna Calvo) Prinzmetal angina (Chronic) HLD (hyperlipidemia) (Chronic) HTN (hypertension) (Chronic) CAD (coronary artery disease) (Chronic) Malignant pericardial effusion (Chronic) Atrial flutter (Chronic) Palpitations (Chronic) Shortness of breath (Chronic) Precordial chest pain (Chronic) Aortocoronary bypass status (Chronic) History of percutaneous transluminal coronary angioplasty (Chronic) Abnormal result of cardiovascular function study, unspecified (Chronic) Pain in limb (Chronic) Dizziness and giddiness (Chronic) Fatigue (Chronic) Mild aortic insufficiency (Chronic) Pain in left shoulder (Chronic) Atherosclerosis of coronary artery bypass graft(s), unspecified, with other forms of angina pectoris (Chronic) Intermittent claudication (Chronic) Hospital Course and Treatment Summary of Care Provided: This is a 83-year-old male with multiple comorbidities admitted with vertigo, dizziness, nausea and vomiting after he took tramadol for post op pain of left carpal surgery. Patient also fell at home but denies loss of consciousness. He had a small laceration on his head which did not require repair or suture as per ER physician. 1. Vertigo, likely multifactorial from suspected BPPV, dehydration versus medication side effect(taking his pain meds without much food) MRI of the brain is negative for acute cerebellar stroke Patient is still gets intermittent nausea, dizziness and vertigo. On symptomatic management. PT and OT was evaluated. The patient's son prefers patient to be discharged to SNF as he lives alone. Patient was accepted in TCU. 2. CAD s/p CABG, s/p stent, on aspirin, statin, ranexa 3. Status post left carpal tunnel surgery, trapezius consulted, recommended therapy to the extremity: Seen by Dr. Miller. He recommended NSAIDs/steroid as patient is not a good candidate for NSAID therefore started on prednisone. He will need to follow-up on therapy to the left upper extremity aggressively in the outpatient until he sees Dr. Smith 4. BPH, on flomax 5. Hyperlipidemia, on statin 6. DVT PPx- Heparin SC Discharge medication reconciliation done. Discharge follow-up instructions completed. Discharge process discussed with the patient and all questions were answered to patient's satisfaction. Prescriptions for meclizine and tapering dose of prednisone given to the patient. Total time spent, exact 35 minutes on discharge meds reconciliation, examination, review of imaging and blood test and discussion with the patient on follow-up instructions. [] Subjective: Seen and examined. Patient still feels intermittent dizzy especially on changing position but overall symptoms of nausea and vertigo have improved. Hemodynamically stable. Objective: General: Alert, Oriented x3, Cooperative HEENT: Atraumatic, PERRLA, EOMI, Normocephalic Neck: Supple, No JVD, Negative Carotid Bruits Lungs: Clear to auscultation, Normal air movement Cardiovascular: Regular rate, No murmurs Abdomen: Bowel Sounds Present, Soft, Non Tender Extremities: No edema, Capillary Refill Less than 3 Seconds Skin: No rashes, No breakdown Musculoskeletal: Left foerarm in wrap bandage. Patient can move fingers. Good capillary refill. Neurological: Cranial nerves II-XII grossly intact, Deep Tendon Reflexes 2+/4 and Symmetrical, Neuro grossly intact Psych/Mental Status: Normal Affect, Appropriate - Physical Exam Vitals/I&O's: Vital Signs Temp Pulse Resp BP Pulse Ox 98.0 F 64 18 126/71 H 94 05/14/19 09:18 05/14/19 09:18 05/14/19 09:18 05/14/19 09:18 05/14/19 09:18 Oxygen Delivery Method Room Air Weight: 245 lb Body Mass Index (BMI) 37.2 Orthostatic Vital Signs Start: 05/12/19 09:10 Freq: q24h Status: Active Protocol: Activity Type Activity Date Activity User E-Sign Co-Sign Detail Recorded Client Recorded Date Recorded By Document 05/14/19 08:00 [facility] [id number] 05/14/19 09:22 [facility] 05/14/19 08:00 Orthostatic Vitals Standing -Blood Pressure (90/60-120/80 mm Hg) 120/7 L -Extremity Use Right Arm Sitting -Blood Pressure (90/60-120/80 mm Hg) 125/71 H -Extremity Use Right Arm -Pulse Rate (60-100 beats/min) 66 Lying -Blood Pressure (90/60-120/80 mm Hg) 126/71 H -Extremity Use Right Arm -Pulse Rate (60-100 beats/min) 65 Intake and Output for Last 24 Hours 05/12/19 05/13/19 05/14/19 23:59 23:59 23:59 Intake Total 2500 / 2500 2000.00 / 2400.00 1660 / 1660 Output Total 2950 / 2950 2250 / 3025 1375 / 1375 Balance -450 / -450 -250.00 / -625.00 285 / 285 Current Medications Acetaminophen (Tylenol) 1,000 mg PO Q8 [facility] Last Admin: 05/14/19 06:20 Dose: 1,000 mg Documented by: [facility] Last Admin: 05/14/19 09:13 Dose: 81 mg Documented by: Atorvastatin Calcium (Lipitor) 40 mg PO QHS [facility] Last Admin: 05/13/19 21:10 Dose: 40 mg Documented by: Heparin Sodium (Porcine) (Heparin Na) 5,000 unit SC Q8 [facility] Last Admin: 05/14/19 06:20 Dose: 5,000 unit Documented by: Magnesium Hydroxide (Milk Of Magnesia) 30 ml PO DAILY PRN PRN Reason: Constipation Last Admin: 05/14/19 09:29 Dose: 30 ml Documented by: Meclizine HCl (Antivert) 12.5 mg PO 4X/DAY PRN PRN PRN Reason: Vertigo Last Admin: 05/13/19 20:11 Dose: 12.5 mg Documented by: Nitroglycerin (Nitrostat) 0.4 mg SUBLINGUAL Q5M PRN PRN Reason: Chest Pain Ondansetron HCl (Zofran) 4 mg IV Q8H PRN PRN PRN Reason: NAUSEA/VOMITING Last Admin: 05/12/19 09:44 Dose: 4 mg Documented by: Oxycodone HCl (Oxyir) 5 mg PO Q6H PRN PRN PRN Reason: Pain Score 6-10/10 Last Admin: 05/14/19 00:04 Dose: 5 mg Documented by: Pantoprazole Sodium (Protonix) 40 mg PO DAILY [facility] Last Admin: 05/14/19 09:13 Dose: 40 mg Documented by: Ranolazine (Ranexa) 1,000 mg PO BID [facility] Last Admin: 05/14/19 09:13 Dose: 1,000 mg Documented by: Senna/Docusate Sodium (Senokot-S, Alisson-Colace) 2 tablet PO DAILY PRN PRN PRN Reason: CONSTIPATION Sodium Chloride () 10 - 40 ml IV UD PRN PRN Reason: SALINE FLUSH Last Admin: 05/13/19 10:38 Dose: 10 ml Documented by: Tamsulosin HCl (Flomax) 0.4 mg PO DAILY@0830 [facility] Last Admin: 05/14/19 09:13 Dose: 0.4 mg Documented by: Discharge Activity: May Not Drive Call your doctor if you observe: Fever of 101 or Higher, Coldness, Increased Pain, Numbness or Tingling, Inability to urinate, Inability to have a bowel movement, Shortness of breath, Dizziness, Fainting spells, Swelling in the ankles, Chest pain, Prolonged hiccoughing, Increased palpitations (irregular heartbeat), Calf discomfort Home Medications: Medications to take at Discharge Tamsulosin HCl [Flomax] 0.4 mg PO DAILY 03/06/16 nitroglycerin 0.4 mg sublingual tablet 0.4 mg SUBLINGUAL Q5M PRN #25 tab 12/30/17 Multivitamin [Multiple Vitamins] 1 ea PO DAILY 01/10/18 atorvastatin 40 mg tablet 40 mg PO QHS tab 06/26/18 aspirin 81 mg tablet,delayed release 81 mg PO DAILY 07/04/18 omeprazole 40 mg capsule,delayed release 40 mg PO DAILY 07/04/18 potassium chloride ER 20 mEq tablet,extended release 20 meq PO DAILY 07/04/18 simethicone 180 mg capsule 180 mg PO BID cap 01/09/19 tramadol 50 mg tablet 50 - 100 mg PO Q6H PRN PRN 01/09/19 Gabapentin [Neurontin] 200 mg PO QHS 05/11/19 Ranolazine [Ranexa] 1,000 mg PO BID 05/11/19 Meclizine HCl [Antivert] 12.5 mg PO 4X/DAY PRN PRN #30 tab 05/14/19 Prednisone 10 mg PO UD 05/15/19 Following Prescrptions Were Given to Patient: Meclizine HCl [Antivert] 12.5 mg PO 4X/DAY PRN PRN #30 tab PRN Reason: Vertigo Prescription Printed Primary Care Physician: Kaiser Pan Chi, MD [Primary Care Provider] - Please follow up with your Primary Care Physician in: in 2 weeks Please Follow Up With: Peter Smith, DO - \ When: for left CTS surgey and trigger finger Medical Necessity - Tobacco Use Smoking Status: Never smoker Tobacco Use: Non-smoker Meaningful Use Info Meaningful Use Diagnoses (Choose all that apply): None applicable Code Visit Inpatient E&M: 52451 Disch Hosp
--- NOTE | 2019-05-15 11:02 | NURSING ---
call placed to TCU report given to Rn whom will be taking over care for this patient
== END 2019-05-15 13:50 | disposition skilled nursing facility (03) | DRG 149 ==
LOC: ED 16:57 → MS3 18:25
PROVIDERS: Admitting Provider Internal Medicine; Emergency Provider Emergency Medicine; Family Provider Family Medicine Geriatric Medicine; PCP Family Medicine Geriatric Medicine; Referring Provider Internal Medicine; Visit Provider Internal Medicine
DX: R42 Dizziness and giddiness (principal); T50.905A Adverse effect of unspecified drugs, medicaments and biological substances, initial encounter; H81.10 Benign paroxysmal vertigo, unspecified ear; E86.0 Dehydration; S01.01XA Laceration without foreign body of scalp, initial encounter; W18.30XA Fall on same level, unspecified, initial encounter; Y92.019 Unspecified place in single-family (private) house as the place of occurrence of the external cause; Z23 Encounter for immunization; Z98.890 Other specified postprocedural states; I10 Essential (primary) hypertension; N40.0 Benign prostatic hyperplasia without lower urinary tract symptoms; M19.032 Primary osteoarthritis, left wrist; M18.9 Osteoarthritis of first carpometacarpal joint, unspecified; E78.5 Hyperlipidemia, unspecified; I25.10 Atherosclerotic heart disease of native coronary artery without angina pectoris; Z95.1 Presence of aortocoronary bypass graft; Z95.5 Presence of coronary angioplasty implant and graft; Z79.82 Long term (current) use of aspirin
CPT/HCPCS: 70450; 70551; 71101; 72125; 73100; 80048; 81001; 84484; 85025; 90715; 93005; 97110; 97116; 97162; 97166; 97530; 99285; J7030; A4216; J2405

== ENCOUNTER 2019-05-15 13:55 | Inpatient (IN) | payer MEDICARE, OTHER, SELFPAY ==
[2019-05-15 14:06] VITALS: BP 127/63; PULSE 75; RESP 18; TEMP 36.6; O2SAT 95
[2019-05-15 14:25] VITALS: BMI 37.2
[2019-05-15 14:31] VITALS: BMI 37.3
[2019-05-15 16:00] VITALS: BP 136/73; PULSE 44; RESP 17; TEMP 36.7; O2SAT 91
--- NOTE | 2019-05-15 17:16 | NURSING ---
DR. GIBSON DC'D ULTRAM, STARTED ON TYLENOL/OXYIR. ALSO, SON WANTED POTASSIUM RESTARTED. DR. GIBSON AWARE. WILL AWAIT LABS IN AM.
--- NOTE | 2019-05-15 17:21 | NURSING ---
Addendum entered by Mavis Orta 05/15/19 21:36: Pt refusing milady wants in the AM. Original Note: Dr Pan in to see pt on admit, new order for SSE x1.
[2019-05-15] MEDS: Ranolazine 500 MG Tablet 1000 MG PO (17:36)
[2019-05-15] MEDS: oxyCODONE 5 MG Tablet PO (17:42)
[2019-05-15 18:10] VITALS: PULSE 78
--- NOTE | 2019-05-15 20:19 | PCM.HP.STD ---
Problem List (1) Debility Status: Acute (2) Dizziness Status: Acute (3) Fall Status: Acute (4) Benign paroxysmal positional vertigo Status: Acute (5) Left carpal tunnel syndrome Status: Chronic (6) Left trigger finger Status: Chronic (7) BPH (benign prostatic hyperplasia) Status: Chronic (8) GERD (gastroesophageal reflux disease) Status: Chronic (9) Hypokalemia Status: Chronic (10) Neuropathic pain Status: Chronic (11) Prinzmetal angina Status: Chronic (12) HLD (hyperlipidemia) Status: Chronic Qualifiers: (13) HTN (hypertension) Status: Chronic Qualifiers: (14) CAD (coronary artery disease) Status: Chronic Qualifiers: (15) Atrial flutter Status: Chronic Qualifiers: History of Present Illness Date of Admission: 05/15/19 Chief Complaint: Here for rehabilitation, strengthening, prior to discharge home alone. The patient is a 83 year old Male with below past medical history presented to [facility] Emergency Department 05/11/2019 with fall, dizziness. 05/11/2019 EKG normal sinus rhythm, incomplete right bundle branch block. 05/11/2019 CT brain chronic involutional changes of brain. 05/11/2019 CT cervical spine showed multilevel degenerative changes. 05/11/2019 Right rib films healed right rib fracture. Dizzy, lost balance, fell, hit head. Pain right anterior ribs. left carpal tunnel surgery, left trigger finger surgery 1 day prior. Took 2 Tramadol on empty stomach, dizzy. Tetanus updated. CBCD okay, BMP okay, UA negative. Dizzy when he moves. [place] Hallpike positive, IV Lorazepam not helpful. 05/11/2019 Admit to Hospital. Valium for dizziness. PT/OT for debility. 05/12/2019 MRI brain negative. 05/12/2019 X-ray left wrist negative. 05/13/2019 Dr. Miller recommended symptomatic treatment left wrist pain, follow up with Dr. Smith. Prednisone started for left wrist pain Dizziness improved. 05/15/2019 Admit to TCU with debility, here for rehabilitation, strengthening prior to discharge home alone. Resident Full Of Stool, Soap Suds enema ordered. Past Medical History Past Medical History (Chronic Problems): Chronic Problems (Last Reviewed 12/30/17 @ 11:41 by Leeanna Calvo) Left carpal tunnel syndrome (Chronic) Left trigger finger (Chronic) BPH (benign prostatic hyperplasia) (Chronic) GERD (gastroesophageal reflux disease) (Chronic) Hypokalemia (Chronic) Neuropathic pain (Chronic) Prinzmetal angina (Chronic) HLD (hyperlipidemia) (Chronic) HTN (hypertension) (Chronic) CAD (coronary artery disease) (Chronic) Malignant pericardial effusion (Chronic) Atrial flutter (Chronic) Palpitations (Chronic) Shortness of breath (Chronic) Precordial chest pain (Chronic) Aortocoronary bypass status (Chronic) History of percutaneous transluminal coronary angioplasty (Chronic) Abnormal result of cardiovascular function study, unspecified (Chronic) Pain in limb (Chronic) Dizziness and giddiness (Chronic) Fatigue (Chronic) Mild aortic insufficiency (Chronic) Pain in left shoulder (Chronic) Atherosclerosis of coronary artery bypass graft(s), unspecified, with other forms of angina pectoris (Chronic) Intermittent claudication (Chronic) Medical History: Medical History (Last Reviewed 12/30/17 @ 11:41 by Leeanna Calvo) Prinzmetal angina (Chronic) I20.1 HLD (hyperlipidemia) (Chronic) E78.5 HTN (hypertension) (Chronic) I10 CAD (coronary artery disease) (Chronic) I25.10 Malignant pericardial effusion (Chronic) C80.1, I31.8 Atrial flutter (Chronic) I48.92 Palpitations (Chronic) R00.2 Shortness of breath (Chronic) R06.02 Precordial chest pain (Chronic) R07.2 Aortocoronary bypass status (Chronic) Z95.1 History of percutaneous transluminal coronary angioplasty (Chronic) Z98.61 Abnormal result of cardiovascular function study, unspecified (Chronic) R94.30 Pain in limb (Chronic) M79.609 Dizziness and giddiness (Chronic) R42 Fatigue (Chronic) R53.83 Mild aortic insufficiency (Chronic) I35.1 Pain in left shoulder (Chronic) M25.512 Atherosclerosis of coronary artery bypass graft(s), unspecified, with other forms of angina pectoris (Chronic) I25.708 Intermittent claudication (Chronic) I73.9 Allergies tramadol [From Ultram] Adverse Reaction (Verified 05/15/19 14:54) Other DIZZINESS, WEAKNESS, LIGHT HEADEDNESS Home Medications: Ambulatory Orders Medication Instructions Recorded Tamsulosin HCl [Flomax] 0.4 mg PO DAILY 03/06/16 nitroglycerin 0.4 mg sublingual 0.4 mg SUBLINGUAL Q5M PRN #25 tab 12/30/17 tablet Multivitamin [Multiple Vitamins] 1 ea PO DAILY 01/10/18 atorvastatin 40 mg tablet 40 mg PO QHS tab 06/26/18 aspirin 81 mg tablet,delayed 81 mg PO DAILY 07/04/18 release omeprazole 40 mg capsule,delayed 40 mg PO DAILY 07/04/18 release potassium chloride ER 20 mEq 20 meq PO DAILY 07/04/18 tablet,extended release simethicone 180 mg capsule 180 mg PO BID cap 01/09/19 tramadol 50 mg tablet 50 - 100 mg PO Q6H PRN PRN 01/09/19 Gabapentin [Neurontin] 200 mg PO QHS 05/11/19 Ranolazine [Ranexa] 1,000 mg PO BID 05/11/19 Meclizine HCl [Antivert] 12.5 mg PO 4X/DAY PRN PRN #30 tab 05/14/19 Prednisone 10 mg PO UD 05/15/19 Surgical History: Surgical History (Last Updated 07/04/18 @ 16:09 by Paulino Jose NP-C) Status post total knee replacement, right (Resolved) Z96.651 H/O cardiac radiofrequency ablation Onset Date: ~10/2006 Z98.890 History of PTCA Z98.61 PTCA of the CFX intracoronary stent History of arthroscopy Onset Date: ~07/2011 Z98.890 & repair of right rotator cuff tear History of left heart catheterization (LHC) Onset Date: ~09/2007 Z98.890 05/2005, 09/2007, 10/2006, 02/2008, 10/2013, 03/30/2016 Hx of CABG Onset Date: ~05/2005 Z95.1 VAZQUEZ to LAD, SVG to RCA and diag branch of LAD and repair of dissection with graft and reimplantation of SVG to RCA and diag branch History of bilateral knee replacement Z96.653 Surgical History: angioplasty - Cardiac stent., coronary bypass surgery, total knee arthroplasty - Bilateral, - - Left arm surgery-carpal tunnel, coronary artery stent placement, ablation for cardiac arrhythmia, Right rotator cuff surgery. Psychiatric History: No pertinent psych hx Lives: Alone Smoking Status: Never smoker Tobacco Use: Non-smoker Alcohol: None Drugs: None - *Family History Paternal Family History: Family History (Last Reviewed 07/04/18 @ 16:03 by Crystal Nobles) Father CAD (coronary artery disease) CHF (congestive heart failure) Mother Heart disease Brother Diabetes Cancer Hx of CABG CAD (coronary artery disease) Sister COPD (chronic obstructive pulmonary disease) Diabetes History Items: No pertinent history Review of Systems Constitutional: Denies: Chills, Fever, Weight Change HEENT: Denies: Head Aches, Sinus Congestion, Sinus Drainage Cardiovascular: Denies: Chest Pain, Palpitations Respiratory: Denies: Cough, Shortness of breath at rest, Sputum production Gastrointestinal: Denies: Abdominal Pain, Nausea, Vomiting Genitourinary: Denies: Dysuria Musculoskeletal: Denies: Joint Pain, Joint Tenderness Skin: Denies: Rash, Wounds Neurological: Denies: Numbness, Tingling, Focal weakness Psychiatric: Denies: Anxiety, Depression, Homicidal Ideations, Suicidal Ideations Hematologic/ Lymphatic: Denies: Easy Bruising, Easy Bleeding VTE Information - Inpt Only VTE Present on Admission: No VTE Mechan Device Prophylaxis: Knee High RENETTA Hose VTE Pharm Prophylaxis ordered?: Yes Patient Problems: Active and Suspected Problems (Last Reviewed 12/30/17 @ 11:41 by Leeanna Calvo) Debility (Acute) Dizziness (Acute) Fall (Acute) Benign paroxysmal positional vertigo (Acute) - Physical Exam Vitals/I&O's: Vital Signs Temp Pulse Resp BP Pulse Ox 98.1 F 78 17 136/73 H 91 05/15/19 16:00 05/15/19 18:10 05/15/19 16:00 05/15/19 16:00 05/15/19 16:00 Oxygen Delivery Method Room Air Weight: 111.13 kg Body Mass Index (BMI) 37.2 Intake and Output for Last 24 Hours 05/13/19 05/14/19 05/15/19 23:59 23:59 23:59 Intake Total 360 / 360 Balance 360 / 360 General: Alert, Oriented x3, Cooperative HEENT: Atraumatic, PERRLA, EOMI, Normocephalic Neck: Supple, No JVD, Negative Carotid Bruits Lungs: Clear to auscultation, Normal air movement Cardiovascular: Regular rate, No murmurs Abdomen: Bowel Sounds Present, Soft, Non Tender, - - Full Of Stool. Extremities: No edema, Capillary Refill Less than 3 Seconds, - - Left upper extremity in sling, MARIO wrap. Skin: No rashes, No breakdown Musculoskeletal: No Tenderness to Palpation of Joints or Extremities Neurological: Cranial nerves II-XII grossly intact Psych/Mental Status: Normal Affect, Appropriate Current Medications Acetaminophen (Tylenol) 1,000 mg PO Q8 [facility] Aspirin (Ecotrin) 81 mg PO DAILY@0800 [facility] Atorvastatin Calcium (Lipitor) 40 mg PO QHS [facility] Bisacodyl (Dulcolax) 10 mg RECTAL DAILY PRN PRN Reason: Constipation Calamine/Phenol (Calmoseptine Ointment) 1 applic TOPICAL BID [facility]; Protocol Gabapentin (Neurontin) 200 mg PO QHS [facility] Meclizine HCl (Antivert) 12.5 mg PO 4X/DAY PRN PRN PRN Reason: Vertigo Multivitamins (Multivitamin) 1 tablet PO DAILY@0800 [facility] Nitroglycerin (Nitrostat) 0.4 mg SUBLINGUAL Q5M PRN PRN Reason: Chest Pain Nutritional Formula (Lactose Free) (Ensure Enlive) 120 ml PO 4X/DAY [facility] Last Admin: 05/15/19 17:37 Dose: 120 ml Documented by: Nystatin (Mycostatin Powder) 1 applic TOPICAL BID [facility]; Protocol Oxycodone HCl (Oxyir) 5 mg PO Q6H PRN PRN PRN Reason: Pain Score 6-10/10 Last Admin: 05/15/19 17:42 Dose: 5 mg Documented by: Pantoprazole Sodium (Protonix) 40 mg PO DAILY [facility] Potassium Chlor[facility] ([facility]) [facility] () [facility]; Taper Stop: 05/27/19 07:59 Ranolazine (Ranexa) 1,000 mg PO BID [facility] Last Admin: 05/15/19 17:36 Dose: 1,000 mg Documented by: Simethicone (Mylicon) 160 mg PO BID [facility] Last Admin: 05/15/19 17:37 Dose: 160 mg Documented by: Tamsulosin HCl (Flomax) 0.4 mg PO DAILY@0830 [facility] Tuberculin PPD (Tubersol, Aplisol, Ppd) 5 tu ID X1 ONE Stop: 05/16/19 10:01 Tuberculin PPD (Tubersol, Aplisol, Ppd) 5 tu ID X1 ONE Stop: 05/23/19 10:01 Assessment/Plan All Active Problems (Last Updated 07/04/18 @ 16:09 by Paulino Jose NP-C) Vertigo (Acute) Laceration of head (Acute) Debility (Acute) Dizziness (Acute) Fall (Acute) Benign paroxysmal positional vertigo (Acute) Dyspnea on exertion (Acute) Status post total knee replacement, right (Resolved) 83 year old male with below past medical history hospitalized for fall secondary to BPPV, Tramadol side effect, admitted to TCU with debility, here for rehabilitation, strengthening, prior to discharge home alone. Debility - PT/OT. Cognition - ST. Pain - Tylenol 1000MG Q8H, Oxycodone 5MG Q6H PRN pain (6-10) Bowel - Miralax 17GM daily, Senna/colace 2 tablets BID, Dulcolax 10MG MN daily, Soap Suds enema MN x 1. Adult immunization - Administer Prevnar 13, Pneumovax 23, Fluzone as necessary. DVT prophylaxis - Lovenox 40MG SC daily. Coronary Artery Disease - Ranexa 1000MG BID, NTG 0.4MG Q5M PRN, Aspirin 81MG daily. Hyperlipidemia - Atorvastatin 40MG QHS. Nutrition - Ensure Enlive 120ML 4x/day. Neuropathic pain - Lower Gabapentin to 100MG QHS x 5 days, then stop. Dizziness - Meclizine 12.5MG 4x/day PRN. Skin irritation - Calmoseptine BID. Tinea Corporis - Nystatin BID. GERD - Pantoprazole 40MG daily. Hypokalemia - K-Dur 20MEQ daily. Left wrist pain status post left carpal tunnel, left trigger finger surgery - Prednisone taper. BPH - Tamsulosin 0.4MG daily.
[2019-05-15] MEDS: Gabapentin 100 MG Capsule PO (21:46)
[2019-05-15] MEDS: Acetaminophen 500 MG Tablet 1000 MG PO (21:46)
[2019-05-15] MEDS: Atorvastatin Calcium 40 MG Tablet PO (21:46)
[2019-05-15] MEDS: Nystatin Powder 15gm Bottle 1 APPLIC TOPICAL (21:47)
[2019-05-15] MEDS: Menthol/Lanolin/Calamine/Znox 113 GM Tube 1 APPLIC TOPICAL (21:47)
[2019-05-16] MEDS: oxyCODONE 5 MG Tablet PO (02:00)
[2019-05-16] MEDS: Enoxaparin 40 MG/0.4 ML Syringe SC (05:26)
[2019-05-16] MEDS: Polyethylene Glycol 3350 17 GM PACKET PO ×2 (05:26→16:47)
[2019-05-16] MEDS: Ranolazine 500 MG Tablet 1000 MG PO ×2 (05:26→16:46)
[2019-05-16] MEDS: Pantoprazole Sodium 40 MG Tablet PO (05:27)
[2019-05-16] MEDS: Acetaminophen 500 MG Tablet 1000 MG PO ×3 (05:27→21:14)
[2019-05-16] MEDS: Senna/Docusate Sodium 1 Tablet 2 TABLET PO ×2 (05:27→16:46)
[2019-05-16] MEDS: Menthol/Lanolin/Calamine/Znox 113 GM Tube 1 APPLIC TOPICAL ×2 (05:28→16:47)
[2019-05-16] MEDS: Nystatin Powder 15gm Bottle 1 APPLIC TOPICAL ×2 (05:28→16:46)
[2019-05-16 06:03] LABS: Absolute Lymphocyte Count 0.65 X10^3/uL (0.83-4.51); Absolute Neutrophil Count 4.9 X10^3/uL (2.0-7.7); Basophil# 0.01 X10^3/uL; Basophil% 0.2 % (0-1); Eosinophil# 0.01 X10^3/uL; Eosinophils% 0.2 % (0-5); Hematocrit 33.5 % (40-54); Hemoglobin 11.2 g/dL (13.0-16.5); Lymphocyte # 0.65 X10^3/ul (4.0); Mean Corp Hgb Conc 33.4 g/dL (32-36); Mean Corpuscular Hgb 35.9 pg (27.0-32.0); Mean Corpuscular Volume 107.4 fL (80-94); Mean Platelet Vol. 12.2 fl (6.2-12.0); Monocyte# 0.93 X10^3/uL; Monocyte% 14.4 % (0-10); NRBC Flagged by Analyzer 0 % (0-5); Neutrophil # 4.85 X10^3/uL (2.7-7.7); Neutrophil % 74.9 % (47-70); Platelet Count 149 K/mm3 (150-450); RBC Distribution Width CV 14.6 % (11.6-14.6); RBC Distribution Width SD 56.9 fl (35.1-43.9); Red Blood Count 3.12 M/mm3 (4.6-6.2); White Blood Count 6.5 K/mm3 (4.4-11.0)
--- NOTE | 2019-05-16 06:04 | NURSING ---
soap suds emema administered per orders. pt arianne well.
[2019-05-16 06:23] LABS: Anion Gap 6 (5-15); BUN 20 mg/dL (7-18); BUN/Creat Ratio 18.2 RATIO (10-20); Calcium,Total 8.6 mg/dL (8.5-10.1); Chloride 109 mmol/L (98-107); EST Glomerular Filtration Rate 68 mL/min (>60); Est Glom Filt Rate - Afr Amer 83 mL/min (>60); Estimated Creatinine Clearance 50.95 ml/min; Glucose 116 mg/dL (74-106); Potassium 3.7 mmol/L (3.5-5.1); Sodium Level 143 mmol/L (136-145)
[2019-05-16] MEDS: Aspirin E.C. 81 MG Tablet PO (08:17)
[2019-05-16] MEDS: predniSONE 10 MG Tablet 20 MG PO (08:17)
[2019-05-16] MEDS: Tamsulosin HCl 0.4 MG Capsule PO (08:18)
[2019-05-16] MEDS: Meclizine 12.5 MG Tablet PO (10:48)
[2019-05-16] MEDS: Tuberculin,Purif.prot.deriv. 50 TU/ML Vial 5 ML ID (10:49)
--- NOTE | 2019-05-16 11:56 | NURSING ---
CALLED DR. MOREAU'S OFFICE TO VERIFY WB STATUS. MAY BE WBAT. NOTIFIED R' AND THERAPY. R' HAS F/U APPT 05/22.
[2019-05-16 15:07] VITALS: BP 116/60; PULSE 67; RESP 20; TEMP 36.9; O2SAT 93
--- NOTE | 2019-05-16 15:21 | PHA.CONS_ITS ---
<Clive Morochoi - Last Filed: 05/16/19 15:21> Progress Note - Pharmacy Subjective: TCU Admission Objective: Allergies tramadol [From [facility]] Adverse Reaction (Verified 05/15/19 14:54) Other DIZZINESS, WEAKNESS, LIGHT HEADEDNESS Current Medications Generic Name Dose Route Start Last Admin Trade Name Freq PRN Reason Stop Dose Admin Acetaminophen 1,000 mg 05/15/19 22:00 05/16/19 13:10 Tylenol PO 1,000 mg Q8 IRENA Administration Aspirin 81 mg 05/16/19 08:00 05/16/19 08:17 Ecotrin PO 81 mg DAILY@0800 [facility] Administration Atorvastatin Calcium 40 mg 05/15/19 22:00 05/15/19 21:46 Lipitor PO 40 mg QHS [facility] Administration Bisacodyl 10 mg 05/15/19 14:20 Dulcolax RECTAL DAILY PRN Constipation Calamine/Phenol 1 applic 05/15/19 22:00 05/16/19 05:28 Calmoseptine Ointment TOPICAL 1 applicatio BID [facility] Administration Protocol Enoxaparin Sodium 40 mg 05/16/19 06:00 05/16/19 05:26 Lovenox SC 40 mg DAILY@0600 [facility] Administration Gabapentin 100 mg 05/15/19 22:00 05/15/19 21:46 Neurontin PO 05/20/19 22:01 100 mg QHS IRENA Administration Meclizine HCl 12.5 mg 05/15/19 14:13 05/16/19 10:48 Antivert PO 12.5 mg 4X/DAY PRN PRN Administration Vertigo Nitroglycerin 0.4 mg 05/15/19 14:13 Nitrostat SUBLINGUAL Q5M PRN Chest Pain Nutritional Formula (Lactose Free) 120 ml 05/15/19 17:00 05/16/19 10:48 Ensure Enlive PO 120 ml 4X/DAY [facility] Administration Nystatin 1 applic 05/15/19 22:00 05/16/19 05:28 Mycostatin Powder TOPICAL 1 applicatio BID [facility] Administration Protocol Oxycodone HCl 5 mg 05/15/19 17:15 05/16/19 02:00 Oxyir PO 5 mg Q6H PRN PRN Administration Pain Score 6-10/10 Pantoprazole Sodium 40 mg 05/16/19 06:00 05/16/19 05:27 Protonix PO 40 mg DAILY IRENA Administration Polyethylene Glycol 17 gm 05/16/19 18:00 Miralax PO BID [facility] Potassium Chloride 20 meq 05/16/19 08:00 05/16/19 08:17 K-Dur PO 20 meq DAILYCM IRENA Administration Prednisone 40 mg 05/16/19 08:00 05/16/19 08:17 PO 05/27/19 07:59 40 mg DAILYCM IRENA Administration Taper Ranolazine 1,000 mg 05/15/19 18:00 05/16/19 05:26 Ranexa PO 1,000 mg BID [facility] Administration Senna/Docusate Sodium 2 tablet 05/16/19 06:00 05/16/19 05:27 Senokot-S, Alisson-Colace PO 2 tablet BID [facility] Administration Tamsulosin HCl 0.4 mg 05/16/19 08:30 05/16/19 08:18 Flomax PO 0.4 mg DAILY@0830 [facility] Administration Tuberculin PPD 5 tu 05/23/19 10:00 Tubersol, Aplisol, Ppd ID 05/23/19 10:01 X1 ONE Problem List (Last Reviewed 12/30/17 @ 11:41 by Leeanna Calvo) Debility (Acute) Dizziness (Acute) Fall (Acute) Benign paroxysmal positional vertigo (Acute) Left carpal tunnel syndrome (Chronic) Left trigger finger (Chronic) BPH (benign prostatic hyperplasia) (Chronic) GERD (gastroesophageal reflux disease) (Chronic) Hypokalemia (Chronic) Neuropathic pain (Chronic) Vital Signs Temp Pulse Resp BP Pulse Ox 98.4 F 67 20 H 116/60 93 05/16/19 15:07 05/16/19 15:07 05/16/19 15:07 05/16/19 15:07 05/16/19 15:07 Oxygen Delivery Method Room Air Weight: 111.13 kg Body Mass Index (BMI) 37.2 Sodium 143 mmol/L (136-145) 05/16/19 05:15 Potassium 3.7 mmol/L (3.5-5.1) 05/16/19 05:15 Chloride 109 mmol/L (98-107) H 05/16/19 05:15 Carbon Dioxide 28.0 mmol/L (21.0-32.0) 05/16/19 05:15 Anion Gap 6 (5-15) 05/16/19 05:15 BUN 20 mg/dL (7-18) H 05/16/19 05:15 Creatinine 1.10 mg/dL (0.70-1.30) 05/16/19 05:15 Est GFR (MDRD) Af Amer 83 mL/min (>60) 05/16/19 05:15 Est GFR (MDRD) Non-Af 68 mL/min (>60) 05/16/19 05:15 BUN/Creatinine Ratio 18.2 RATIO (10-20) 05/16/19 05:15 Glucose 116 mg/dL (74-106) H 05/16/19 05:15 Assessment/Plan: 1. Pain: acetaminophen 1000mg PO Q8H, oxycodone 5mg PO Q6H PRN pain -04/05. Please continue to monitor for increased pain and PRN usage. 2. Left wrist pain s/p L carpal tunnel/L trigger finger surgery: prednisone taper - 40mg PO DAILYCM x 2 days, 30mg PO DAILYCM x 3 days, 20mg PO DAILYCM x 3 days, 10mg PO DAILYCM. Please continue to monitor for increased pain, insomnia, and upset stomach. 3. DVT Prophylaxis: enoxaparin 40mg SC daily. Please continue to monitor for S/S of bleeding, platelets and renal function. 4. Coronary artery disease: ranolazine 1000mg PO BID, aspirin 81mg PO DAILYCM, nitroglycerin 0.4mg SL Q5M PRN chest pain. Please continue to monitor for chest pain and S/S of bleeding. *5. Hyperlipidemia: atorvastatin 40mg PO QHS. Last lipid panel in patient's chart from 2016. Please consider ordering a lipid panel now and then annually as clinically appropriate. LFTs WNL and appropriate for continued use. Please continue to monitor for muscle pain. 6. BPH: tamsulosin 0.4mg PO daily. Please continue to monitor urine flow and hypotension. 7. Hypokalemia: potassium chloride 20mEq PO DAILYCM. Please continue to monitor for upset stomach and potassium levels. 8. Neuropathic pain: gabapentin 100mg PO QHS x 5 days. Please continue to monitor for confusion and renal function changes. 9. GERD: pantoprazole 40mg PO daily. Please continue to monitor for S/S of GERD. 10. Dizziness: meclizine 12.5mg PO four times daily PRN vertigo. Please continue to monitor for vertigo and PRN usage. 11. Tinea corporis: nystatin powder 1 application to the groin BID. Please continue to monitor for worsening infection. Psychotropic Medications: None Unnecessary Medications: None Bowel Regimen: Miralax 17gm PO BID, senna/docusate 2T PO BID, bisacodyl 10mg ND daily PRN constipation. Please continue to monitor for constipation and PRN usage. Date of Note:: 05/16/19 - Provider Comments Provider responsibility: Provider responsible to enter orders to implement recommendations <[facility] - Last Filed: 05/16/19 17:21> Progress Note - Pharmacy Subjective: [] Objective: Allergies tramadol [From [facility]] Adverse Reaction (Verified 05/15/19 14:54) Other DIZZINESS, WEAKNESS, LIGHT HEADEDNESS Current Medications Generic Name Dose Route Start Last Admin Trade Name Freq PRN Reason Stop Dose Admin Acetaminophen 1,000 mg 05/15/19 22:00 05/16/19 13:10 Tylenol PO 1,000 mg Q8 IRENA Administration Aspirin 81 mg 05/16/19 08:00 05/16/19 08:17 Ecotrin PO 81 mg DAILY@0800 IRENA Administration Atorvastatin Calcium 40 mg 05/15/19 22:00 05/15/19 21:46 Lipitor PO 40 mg QHS IRENA Administration Bisacodyl 10 mg 05/15/19 14:20 Dulcolax RECTAL DAILY PRN Constipation Calamine/Phenol 1 applic 05/15/19 22:00 05/16/19 16:47 Calmoseptine Ointment TOPICAL 1 applicatio BID IRENA Administration Protocol Enoxaparin Sodium 40 mg 05/16/19 06:00 05/16/19 05:26 Lovenox SC 40 mg DAILY@0600 IRENA Administration Gabapentin 100 mg 05/15/19 22:00 05/15/19 21:46 Neurontin PO 05/20/19 22:01 100 mg QHS IRENA Administration Meclizine HCl 12.5 mg 05/15/19 14:13 05/16/19 10:48 Antivert PO 12.5 mg 4X/DAY PRN PRN Administration Vertigo Nitroglycerin 0.4 mg 05/15/19 14:13 Nitrostat SUBLINGUAL Q5M PRN Chest Pain Nutritional Formula (Lactose Free) 120 ml 05/15/19 17:00 05/16/19 16:46 Ensure Enlive PO Not Given 4X/DAY [facility] Nystatin 1 applic 05/15/19 22:00 05/16/19 16:46 Mycostatin Powder TOPICAL 1 applicatio BID IRENA Administration Protocol Oxycodone HCl 5 mg 05/15/19 17:15 05/16/19 02:00 Oxyir PO 5 mg Q6H PRN PRN Administration Pain Score 6-10/10 Pantoprazole Sodium 40 mg 05/16/19 06:00 05/16/19 05:27 Protonix PO 40 mg DAILY IRENA Administration Polyethylene Glycol 17 gm 05/16/19 18:00 05/16/19 16:47 Miralax PO 17 gm BID IRENA Administration Potassium Chloride 20 meq 05/16/19 08:00 05/16/19 08:17 K-Dur PO 20 meq DAILYCM IRENA Administration Prednisone 40 mg 05/16/19 08:00 05/16/19 08:17 PO 05/27/19 07:59 40 mg DAILYCM IRENA Administration Taper Ranolazine 1,000 mg 05/15/19 18:00 05/16/19 16:46 Ranexa PO 1,000 mg BID IRENA Administration Senna/Docusate Sodium 2 tablet 05/16/19 06:00 05/16/19 16:46 Senokot-S, Alisson-Colace PO 2 tablet BID IRENA Administration Tamsulosin HCl 0.4 mg 05/16/19 08:30 05/16/19 08:18 Flomax PO 0.4 mg DAILY@0830 IRE[facility] Administration Tuberculin PPD 5 tu 05/23/19 10:00 Tubersol, Aplisol, Ppd ID 05/23/19 10:01 X1 ONE Problem List (Last Reviewed 12/30/17 @ 11:41 by Leeanna Calvo) Debility (Acute) Dizziness (Acute) Fall (Acute) Benign paroxysmal positional vertigo (Acute) Left carpal tunnel syndrome (Chronic) Left trigger finger (Chronic) BPH (benign prostatic hyperplasia) (Chronic) GERD (gastroesophageal reflux disease) (Chronic) Hypokalemia (Chronic) Neuropathic pain (Chronic) Vital Signs Temp Pulse Resp BP Pulse Ox 98.4 F 67 20 H 116/60 93 05/16/19 15:07 05/16/19 15:07 05/16/19 15:07 05/16/19 15:07 05/16/19 15:07 Oxygen Delivery Method Room Air Weight: 111.13 kg Body Mass Index (BMI) 37.2 Sodium 143 mmol/L (136-145) 05/16/19 05:15 Potassium 3.7 mmol/L (3.5-5.1) 05/16/19 05:15 Chloride 109 mmol/L (98-107) H 05/16/19 05:15 Carbon Dioxide 28.0 mmol/L (21.0-32.0) 05/16/19 05:15 Anion Gap 6 (5-15) 05/16/19 05:15 BUN 20 mg/dL (7-18) H 05/16/19 05:15 Creatinine 1.10 mg/dL (0.70-1.30) 05/16/19 05:15 Est GFR (MDRD) Af Amer 83 mL/min (>60) 05/16/19 05:15 Est GFR (MDRD) Non-Af 68 mL/min (>60) 05/16/19 05:15 BUN/Creatinine Ratio 18.2 RATIO (10-20) 05/16/19 05:15 Glucose 116 mg/dL (74-106) H 05/16/19 05:15 Assessment/Plan: Psychotropic Medications: Unnecessary Medications: Bowel Regimen: - Provider Comments Provider responsibility: Provider responsible to enter orders to implement recommendations Provider Comments to Recommendations by Pharmacy: Agree
[2019-05-16] MEDS: Gabapentin 100 MG Capsule PO (21:14)
[2019-05-16] MEDS: Atorvastatin Calcium 40 MG Tablet PO (21:14)
[2019-05-17] MEDS: Enoxaparin 40 MG/0.4 ML Syringe SC (05:52)
[2019-05-17] MEDS: Senna/Docusate Sodium 1 Tablet 2 TABLET PO (05:53)
[2019-05-17] MEDS: Acetaminophen 500 MG Tablet 1000 MG PO ×3 (05:53→20:29)
[2019-05-17] MEDS: Ranolazine 500 MG Tablet 1000 MG PO ×2 (05:53→18:08)
[2019-05-17] MEDS: Polyethylene Glycol 3350 17 GM PACKET PO (05:55)
[2019-05-17] MEDS: Pantoprazole Sodium 40 MG Tablet PO (05:55)
[2019-05-17] MEDS: Nystatin Powder 15gm Bottle 1 APPLIC TOPICAL ×2 (05:57→18:08)
[2019-05-17] MEDS: Menthol/Lanolin/Calamine/Znox 113 GM Tube 1 APPLIC TOPICAL ×2 (06:00→18:13)
[2019-05-17] MEDS: Aspirin E.C. 81 MG Tablet PO (08:46)
[2019-05-17] MEDS: predniSONE 10 MG Tablet 20 MG PO (08:48)
[2019-05-17] MEDS: Tamsulosin HCl 0.4 MG Capsule PO (08:49)
[2019-05-17 15:30] VITALS: BP 107/52; PULSE 61; RESP 20; TEMP 36.9; O2SAT 94
[2019-05-17] MEDS: Atorvastatin Calcium 40 MG Tablet PO (20:30)
[2019-05-17] MEDS: Gabapentin 100 MG Capsule PO (20:30)
[2019-05-17] MEDS: Meclizine 12.5 MG Tablet PO (20:34)
[2019-05-18] MEDS: Nystatin Powder 15gm Bottle 1 APPLIC TOPICAL ×2 (04:57→16:54)
[2019-05-18] MEDS: Acetaminophen 500 MG Tablet 1000 MG PO ×3 (04:58→21:13)
[2019-05-18] MEDS: Ranolazine 500 MG Tablet 1000 MG PO ×2 (04:59→16:54)
[2019-05-18] MEDS: Pantoprazole Sodium 40 MG Tablet PO (04:59)
[2019-05-18] MEDS: Enoxaparin 40 MG/0.4 ML Syringe SC (04:59)
[2019-05-18] MEDS: Menthol/Lanolin/Calamine/Znox 113 GM Tube 1 APPLIC TOPICAL ×2 (05:00→16:56)
[2019-05-18] MEDS: Aspirin E.C. 81 MG Tablet PO (08:01)
[2019-05-18] MEDS: Tamsulosin HCl 0.4 MG Capsule PO (08:02)
[2019-05-18] MEDS: predniSONE 10 MG Tablet 20 MG PO (08:08)
[2019-05-18 10:00] VITALS: PULSE 76; RESP 18; O2SAT 97
[2019-05-18 15:43] VITALS: BP 116/61; PULSE 69; RESP 18; TEMP 36.7; O2SAT 94
[2019-05-18] MEDS: Polyethylene Glycol 3350 17 GM PACKET PO (16:55)
[2019-05-18] MEDS: Gabapentin 100 MG Capsule PO (21:13)
[2019-05-18] MEDS: Atorvastatin Calcium 40 MG Tablet PO (21:14)
[2019-05-18] MEDS: Meclizine 12.5 MG Tablet PO (21:15)
[2019-05-19] MEDS: Enoxaparin 40 MG/0.4 ML Syringe SC (06:49)
[2019-05-19] MEDS: Ranolazine 500 MG Tablet 1000 MG PO ×2 (06:49→17:00)
[2019-05-19] MEDS: Acetaminophen 500 MG Tablet 1000 MG PO ×3 (06:50→21:06)
[2019-05-19] MEDS: Pantoprazole Sodium 40 MG Tablet PO (06:50)
[2019-05-19] MEDS: Menthol/Lanolin/Calamine/Znox 113 GM Tube 1 APPLIC TOPICAL ×2 (06:52→17:02)
[2019-05-19] MEDS: Nystatin Powder 15gm Bottle 1 APPLIC TOPICAL (06:52)
[2019-05-19] MEDS: Tamsulosin HCl 0.4 MG Capsule PO (08:30)
[2019-05-19] MEDS: predniSONE 10 MG Tablet 20 MG PO (08:30)
[2019-05-19] MEDS: Aspirin E.C. 81 MG Tablet PO (08:30)
[2019-05-19 15:30] VITALS: BP 115/83; PULSE 73; RESP 20; TEMP 36.6; O2SAT 95
[2019-05-19] MEDS: Atorvastatin Calcium 40 MG Tablet PO (21:06)
[2019-05-19] MEDS: Gabapentin 100 MG Capsule PO (21:06)
[2019-05-19] MEDS: Meclizine 12.5 MG Tablet PO (21:09)
[2019-05-20] MEDS: oxyCODONE 5 MG Tablet PO ×2 (00:16→10:11)
[2019-05-20] MEDS: Menthol/Lanolin/Calamine/Znox 113 GM Tube 1 APPLIC TOPICAL ×2 (05:46→17:42)
[2019-05-20] MEDS: Enoxaparin 40 MG/0.4 ML Syringe SC (05:47)
[2019-05-20] MEDS: Nystatin Powder 15gm Bottle 1 APPLIC TOPICAL ×2 (05:47→17:41)
[2019-05-20] MEDS: Pantoprazole Sodium 40 MG Tablet PO (05:48)
[2019-05-20] MEDS: Acetaminophen 500 MG Tablet 1000 MG PO ×3 (05:49→21:07)
[2019-05-20] MEDS: Ranolazine 500 MG Tablet 1000 MG PO ×2 (05:49→17:37)
[2019-05-20] MEDS: Tamsulosin HCl 0.4 MG Capsule PO (07:57)
[2019-05-20] MEDS: predniSONE 10 MG Tablet 20 MG PO (07:57)
[2019-05-20] MEDS: Aspirin E.C. 81 MG Tablet PO (07:58)
[2019-05-20 10:17] VITALS: BP 141/82; PULSE 68; O2SAT 94
--- NOTE | 2019-05-20 10:30 | NURSING ---
At 1015 Patient complaining of pain in his chest. Stated that it had been going on for awhile. States that his jaw hurts. Vital signs done and are within normal limits. Heart is regular per auscultation. Oxyir given. At this time, this nurse into see patient, patient states that he is feeling much better. Patient states that he was just having rib pain and feeling a little stressed. He didn't sleep will last night. He had a conversation with a friend last night which had him stressed but he is feeling much better since this nurse talked with him. Patient appreciative of the time this nurse spent letting patient talk about how he is feeling.
--- NOTE | 2019-05-20 14:19 | NURSING ---
Patient complaining of having a hard time sleeping. Dr. Pan notified. New orders given.
[2019-05-20 15:32] VITALS: BP 119/71; PULSE 69; RESP 18; TEMP 36.8; O2SAT 94
[2019-05-20] MEDS: Senna/Docusate Sodium 1 Tablet 2 TABLET PO (17:37)
[2019-05-20] MEDS: Gabapentin 100 MG Capsule PO (21:07)
[2019-05-20] MEDS: Meclizine 12.5 MG Tablet PO (21:07)
[2019-05-20] MEDS: MELATONIN 10 MG TABLET PO (21:07)
[2019-05-20] MEDS: Atorvastatin Calcium 40 MG Tablet PO (21:07)
[2019-05-21] MEDS: Enoxaparin 40 MG/0.4 ML Syringe SC (06:03)
[2019-05-21] MEDS: Ranolazine 500 MG Tablet 1000 MG PO ×2 (06:04→17:31)
[2019-05-21] MEDS: Acetaminophen 500 MG Tablet 1000 MG PO ×3 (06:04→21:02)
[2019-05-21] MEDS: Pantoprazole Sodium 40 MG Tablet PO (06:04)
[2019-05-21] MEDS: Nystatin Powder 15gm Bottle 1 APPLIC TOPICAL (06:04)
[2019-05-21] MEDS: Menthol/Lanolin/Calamine/Znox 113 GM Tube 1 APPLIC TOPICAL (06:05)
[2019-05-21] MEDS: Tamsulosin HCl 0.4 MG Capsule PO (08:13)
[2019-05-21] MEDS: predniSONE 10 MG Tablet 20 MG PO (08:13)
[2019-05-21] MEDS: Aspirin E.C. 81 MG Tablet PO (08:13)
[2019-05-21] MEDS: Polyethylene Glycol 3350 17 GM PACKET PO (13:43)
--- NOTE | 2019-05-21 14:38 | CASEMGMT ---
Social Work Spoke with patient whom is requesting to DC home prior to f/u appt 05/22. IDT agreeable. Requested referral to outpatient OT at [facility]. Referral made. No DME needs. Spoke with son to confirm DC plans. Plan: DC home 05/22 with outpatient PT [facility]
[2019-05-21 15:43] VITALS: BP 115/69; PULSE 70; RESP 16; TEMP 36.4; O2SAT 96
[2019-05-21] MEDS: Senna/Docusate Sodium 1 Tablet 2 TABLET PO (17:31)
--- NOTE | 2019-05-21 19:59 | PCM.DC ---
- Discharge Diagnoses Current Active Problems: Current Active and Chronic Problems (Last Reviewed 12/30/17 @ 11:41 by Leeanna Calvo) Debility (Acute) Dizziness (Acute) Fall (Acute) Benign paroxysmal positional vertigo (Acute) Left carpal tunnel syndrome (Chronic) Left trigger finger (Chronic) BPH (benign prostatic hyperplasia) (Chronic) GERD (gastroesophageal reflux disease) (Chronic) Hypokalemia (Chronic) Neuropathic pain (Chronic) You will use the following diet at home:: No restrictions, Regular Your food should be the consistency of: Regular Your liquids should be the consistency of: Regular/Thin Discharge Activity: Return to Normal Activity, May Shower, Use Walker Weight Bearing Status: Weight bearing as tolerated Call your doctor if you observe: Fever of 101 or Higher, Inability to urinate, Inability to have a bowel movement, Shortness of breath, Chest pain, Uncontrolled pain Allergies/Adverse Reactions: Allergies tramadol [From Ultram] Adverse Reaction (Verified 05/15/19 14:54) Other DIZZINESS, WEAKNESS, LIGHT HEADEDNESS Medications to take at Discharge Tamsulosin HCl [Flomax] 0.4 mg PO DAILY 03/06/16 nitroglycerin 0.4 mg sublingual tablet 0.4 mg SUBLINGUAL Q5M PRN #25 tab 12/30/17 atorvastatin 40 mg tablet 40 mg PO QHS tab 06/26/18 aspirin 81 mg tablet,delayed release 81 mg PO DAILY 07/04/18 omeprazole 40 mg capsule,delayed release 40 mg PO DAILY 07/04/18 potassium chloride ER 20 mEq tablet,extended release 20 meq PO DAILY 07/04/18 Ranolazine [Ranexa] 1,000 mg PO BID 05/11/19 Acetaminophen [Tylenol] 1,000 mg PO Q8 tab 05/21/19 Meclizine HCl [Antivert] 12.5 mg PO 4X/DAY PRN PRN #120 tab 05/21/19 Melatonin 10 mg PO QHS tab 05/21/19 Menthol/Lanolin/Calamine/Znox [Calmoseptine Ointment] 1 applic TOPICAL BID tube 05/21/19 Nystatin Powder [Mycostatin Powder] 1 applic TOPICAL BID bottle 05/21/19 Polyethylene Glycol 3350 [Miralax] 17 gm PO BID #60 packet 05/21/19 Senna/Docusate Sodium [Senokot-S] 2 tab PO BID #120 tab 05/21/19 The following prescriptions were given: Meclizine HCl [Antivert] 12.5 mg PO 4X/DAY PRN PRN #120 tab PRN Reason: Vertigo Transmission Status: Pending to [facility] #30 Polyethylene Glycol 3350 [Miralax] 17 gm PO BID #60 packet Transmission Status: Pending to [facility] Senna/Docusate Sodium [Senokot-S] 2 tab PO BID #120 tab Transmission Status: Pending to [facility] Primary Care Physician: Kaiser Pan Chi, MD [Primary Care Provider] - Please follow up with your Primary Care Physician in: 1 week. Test Results: Test results from this visit will be discussed in further detail at your follow-up appointment, if applicable. Please Follow Up With: DR. MOREAU When: 2 weeks. Proposed Discharge Date: 05/22/19
--- NOTE | 2019-05-21 20:00 | DS.PCM_ITS ---
Discharge Date and Diagnosis - Problem List Patient Problems: Active and Suspected Problems (Last Reviewed 12/30/17 @ 11:41 by Leeanna Calvo) Debility (Acute) Dizziness (Acute) Fall (Acute) Benign paroxysmal positional vertigo (Acute) Date of Admission: 05/15/19 Date of Discharge: 05/22/19 - Primary Discharge Diagnosis Active and Suspected Problems (Last Reviewed 12/30/17 @ 11:41 by Leeanna Calvo) Debility (Acute) Dizziness (Acute) Fall (Acute) Benign paroxysmal positional vertigo (Acute) - Secondary Discharge Diagnosis Chronic Problems (Last Reviewed 12/30/17 @ 11:41 by Leeanna Calvo) Left carpal tunnel syndrome (Chronic) Left trigger finger (Chronic) BPH (benign prostatic hyperplasia) (Chronic) GERD (gastroesophageal reflux disease) (Chronic) Hypokalemia (Chronic) Neuropathic pain (Chronic) Prinzmetal angina (Chronic) HLD (hyperlipidemia) (Chronic) HTN (hypertension) (Chronic) CAD (coronary artery disease) (Chronic) Malignant pericardial effusion (Chronic) Atrial flutter (Chronic) Palpitations (Chronic) Shortness of breath (Chronic) Precordial chest pain (Chronic) Aortocoronary bypass status (Chronic) History of percutaneous transluminal coronary angioplasty (Chronic) Abnormal result of cardiovascular function study, unspecified (Chronic) Pain in limb (Chronic) Dizziness and giddiness (Chronic) Fatigue (Chronic) Mild aortic insufficiency (Chronic) Pain in left shoulder (Chronic) Atherosclerosis of coronary artery bypass graft(s), unspecified, with other forms of angina pectoris (Chronic) Intermittent claudication (Chronic) Hospital Course and Treatment Imaging Results: 05/15/19 14:18 Diet: Regular Diet Is pt able to select menu?: Yes Operations: None Procedures: None Summary of Care Provided: The patient is a 83 year old Male with below past medical history hospitalized for fall secondary to BPPV, Tramadol side effect, admitted to TCU with debility, here for rehabilitation, strengthening, prior to discharge home alone. Discharge home alone, outpatient PT/OT. Patient Problems: Active and Suspected Problems (Last Reviewed 12/30/17 @ 11:41 by Leeanna Calvo) Debility (Acute) Dizziness (Acute) Fall (Acute) Benign paroxysmal positional vertigo (Acute) - Physical Exam Vitals/I&O's: Vital Signs Temp Pulse Resp BP Pulse Ox 97.5 F L 70 16 115/69 96 05/21/19 15:43 05/21/19 15:43 05/21/19 15:43 05/21/19 15:43 05/21/19 15:43 Oxygen Delivery Method Room Air Weight: 111.13 kg Body Mass Index (BMI) 37.2 Intake and Output for Last 24 Hours 05/19/19 05/20/19 05/21/19 23:59 23:59 23:59 Intake Total 840 / 840 600 / 600 600 / 600 Balance 840 / 840 600 / 600 600 / 600 Current Medications Acetaminophen (Tylenol) 1,000 mg PO Q8 [facility] Last Admin: 05/21/19 13:40 Dose: 1,000 mg Documented by: Aspirin (Ecotrin) 81 mg PO DAILY@0800 [facility] Last Admin: 05/21/19 08:13 Dose: 81 mg Documented by: Atorvastatin Calcium (Lipitor) 40 mg PO QHS [facility] Last Admin: 05/20/19 21:07 Dose: 40 mg Documented by: Bisacodyl (Dulcolax) 10 mg RECTAL DAILY PRN PRN Reason: Constipation Calamine/Phenol (Calmoseptine Ointment) 1 applic TOPICAL BID [facility]; Protocol Last Admin: 05/21/19 17:32 Dose: Not Given Documented by: Enoxaparin Sodium (Lovenox) 40 mg SC DAILY@0600 [facility] Last Admin: 05/21/19 06:03 Dose: 40 mg Documented by: Meclizine HCl (Antivert) 12.5 mg PO 4X/DAY PRN PRN PRN Reason: Vertigo Last Admin: 05/20/19 21:07 Dose: 12.5 mg Documented by: Melatonin (Melatonin) 10 mg PO QHS [facility] Last Admin: 05/20/19 21:07 Dose: 10 mg Documented by: Nitroglycerin (Nitrostat) 0.4 mg SUBLINGUAL Q5M PRN PRN Reason: Chest Pain Nystatin (Mycostatin Powder) 1 applic TOPICAL BID [facility]; Protocol Last Admin: 05/21/19 17:32 Dose: Not Given Documented by: Oxycodone HCl (Oxyir) 5 mg PO Q6H PRN PRN PRN Reason: Pain Score 6-10/10 Last Admin: 05/20/19 10:11 Dose: 5 mg Documented by: Pantoprazole Sodium (Protonix) 40 mg PO DAILY [facility] Last Admin: 05/21/19 06:04 Dose: 40 mg Documented by: Polyethylene Glycol (Miralax) 17 gm PO BID [facility] Last Admin: 05/21/19 13:43 Dose: 17 gm Documented by: [facility] Admin: 05/21/19 08:13 Dose: 20 meq Documented by: [facility] () [facility]; Taper Stop: 05/27/19 07:59 Last Admin: 05/21/19 08:13 Dose: 20 mg Documented by: Ranolazine (Ranexa) 1,000 mg PO BID [facility] Last Admin: 05/21/19 17:31 Dose: 1,000 mg Documented by: Senna/Docusate Sodium (Senokot-S, Alisson-Colace) 2 tablet PO BID [facility] Last Admin: 05/21/19 17:31 Dose: 2 tablet Documented by: Tamsulosin HCl (Flomax) 0.4 mg PO DAILY@0830 [facility] Last Admin: 05/21/19 08:13 Dose: 0.4 mg Documented by: Tuberculin PPD (Tubersol, Aplisol, Ppd) 5 tu ID [id number] ONE Stop: 05/23/19 10:01 Discharge Diet: No Restrictions Discharge Activity: Return to Normal Activity, May Shower, Use Walker Weight Bearing Status: Weight bearing as tolerated Call your doctor if you observe: Fever of 101 or Higher, Inability to urinate, Inability to have a bowel movement, Shortness of breath, Chest pain, Uncontrolled pain Home Medications: Medications to take at Discharge Tamsulosin HCl [Flomax] 0.4 mg PO DAILY 03/06/16 nitroglycerin 0.4 mg sublingual tablet 0.4 mg SUBLINGUAL Q5M PRN #25 tab 12/30/17 atorvastatin 40 mg tablet 40 mg PO QHS tab 06/26/18 aspirin 81 mg tablet,delayed release 81 mg PO DAILY 07/04/18 omeprazole 40 mg capsule,delayed release 40 mg PO DAILY 07/04/18 potassium chloride ER 20 mEq tablet,extended release 20 meq PO DAILY 07/04/18 Ranolazine [Ranexa] 1,000 mg PO BID 05/11/19 Acetaminophen [Tylenol] 1,000 mg PO Q8 tab 11/25/19 Meclizine HCl [Antivert] 12.5 mg PO 4X/DAY PRN PRN #120 tab 05/21/19 Melatonin 10 mg PO QHS tab 05/21/19 Menthol/Lanolin/Calamine/Znox [Calmoseptine Ointment] 1 applic TOPICAL BID tube 05/21/19 Nystatin Powder [Mycostatin Powder] 1 applic TOPICAL BID bottle 05/21/19 Polyethylene Glycol 3350 [Miralax] 17 gm PO BID #60 packet 05/21/19 Senna/Docusate Sodium [Senokot-S] 2 tab PO BID #120 tab 05/21/19 Following Prescrptions Were Given to Patient: Meclizine HCl [Antivert] 12.5 mg PO 4X/DAY PRN PRN #120 tab PRN Reason: Vertigo Transmission Status: Pending to [facility]30 Polyethylene Glycol 3350 [Miralax] 17 gm PO BID #60 packet Transmission Status: Pending to [facility] #[facility] Senna/Docusate Sodium [Senokot-S] 2 tab PO BID #120 tab Transmission Status: Pending to [facility]30 Primary Care Physician: Kaiser Pan Chi, MD [Primary Care Provider] - Please follow up with your Primary Care Physician in: 1 week. Please Follow Up With: DR. MOREAU When: 2 weeks. Disposition: Home Minutes spent on discharge:: 30 Patient Condition:: Stable Medical Necessity - Tobacco Use Smoking Status: Never smoker Tobacco Use: Non-smoker Meaningful Use Info Meaningful Use Diagnoses (Choose all that apply): None applicable
[2019-05-21] MEDS: Atorvastatin Calcium 40 MG Tablet PO (21:02)
[2019-05-21] MEDS: MELATONIN 10 MG TABLET PO (21:02)
[2019-05-22] MEDS: Ranolazine 500 MG Tablet 1000 MG PO (06:36)
[2019-05-22] MEDS: Pantoprazole Sodium 40 MG Tablet PO (06:36)
[2019-05-22] MEDS: Acetaminophen 500 MG Tablet 1000 MG PO ×2 (06:36→13:03)
[2019-05-22] MEDS: Menthol/Lanolin/Calamine/Znox 113 GM Tube 1 APPLIC TOPICAL (06:37)
[2019-05-22] MEDS: Nystatin Powder 15gm Bottle 1 APPLIC TOPICAL (06:38)
[2019-05-22] MEDS: predniSONE 10 MG Tablet 20 MG PO (08:19)
[2019-05-22] MEDS: Aspirin E.C. 81 MG Tablet PO (08:19)
[2019-05-22] MEDS: Tamsulosin HCl 0.4 MG Capsule PO (08:19)
[2019-05-22 11:29] VITALS: BP 126/76; PULSE 67; RESP 18; TEMP 36.7; O2SAT 98
--- NOTE | 2019-05-28 09:58 | MDS.RN ---
Information for the mds was obtained from review of the clinical record, interview of resident, staff, and direct observation of resident's care.
== END 2019-05-22 13:30 | disposition home or self-care (01) | DRG 149 ==
PROVIDERS: Admitting Provider Family Medicine Geriatric Medicine; Family Provider Family Medicine Geriatric Medicine; PCP Family Medicine Geriatric Medicine; Visit Provider Family Medicine Geriatric Medicine
DX: H81.10 Benign paroxysmal vertigo, unspecified ear (principal); I48.92 Unspecified atrial flutter; T40.4X5D Adverse effect of other synthetic narcotics, subsequent encounter; E78.5 Hyperlipidemia, unspecified; K21.9 Gastro-esophageal reflux disease without esophagitis; N40.0 Benign prostatic hyperplasia without lower urinary tract symptoms; B35.4 Tinea corporis; E87.6 Hypokalemia; M65.30 Trigger finger, unspecified finger; G56.02 Carpal tunnel syndrome, left upper limb; I10 Essential (primary) hypertension; I25.708 Atherosclerosis of coronary artery bypass graft(s), unspecified, with other forms of angina pectoris; Z91.81 History of falling
CPT/HCPCS: 36415; 80048; 85025; 92523; 97110; 97116; 97162; 97166; 97530; 97535; 97802

== ENCOUNTER → 2019-07-26 14:17 | Outpatient (CLI) | payer MEDICARE, OTHER, SELFPAY ==
[2019-07-16 15:40] VITALS: BMI 36.0
[2019-07-26 15:46] LABS: Absolute Neutrophil Count 4.3 X10^3/uL (2.0-7.7); Basophil# 0.01 X10^3/uL; Basophil% 0.2 % (0-1); Eosinophil# 0.21 X10^3/uL; Eosinophils% 3.5 % (0-5); Hematocrit 39.5 % (40-54); Hemoglobin 13.3 g/dL (13.0-16.5); Lymphocyte % 9.9 % (19-41); Mean Corp Hgb Conc 33.7 g/dL (32-36); Mean Corpuscular Hgb 36.5 pg (27.0-32.0); Mean Corpuscular Volume 108.5 fL (80-94); Mean Platelet Vol. 12.1 fl (6.2-12.0); Monocyte# 0.91 X10^3/uL; NRBC Flagged by Analyzer 0 % (0-5); Neutrophil % 70.9 % (47-70); POSITIVE DIFFERENTIAL YES; Platelet Count 133 K/mm3 (150-450); RBC Distribution Width CV 14.4 % (11.6-14.6); RBC Distribution Width SD 57.9 fl (35.1-43.9); Red Blood Count 3.64 M/mm3 (4.6-6.2); White Blood Count 6.1 K/mm3 (4.4-11.0)
[2019-07-26 16:12] LABS: BUN 16 mg/dL (7-18); Creatinine, Serum 1.23 mg/dL (0.70-1.30); Glucose 92 mg/dL (74-106)
[2019-07-26 16:13] LABS: AST(SGOT) 19 U/L (15-37); Alanine Aminotransfer ALT/SGPT 31 U/L (16-61); Albumin, Serum 3.5 g/dL (3.2-5.0); Alkaline Phosphatase 73 U/L (45-117); Anion Gap 5 (5-15); Calcium,Total 8.9 mg/dL (8.5-10.1); Chloride 110 mmol/L (98-107); EST Glomerular Filtration Rate 60 mL/min (>60); Est Glom Filt Rate - Afr Amer 73 mL/min (>60); Globulin 3.4 g/dL (2.2-4.2); Potassium 4.3 mmol/L (3.5-5.1); Protein, Total 6.9 g/dL (6.4-8.2); Sodium Level 142 mmol/L (136-145); Thyroid Stim Hormone (TSH) 1.56 uIU/mL (0.358-3.74); Vitamin D,25 Hydroxy 22.2 ng/mL (29.95-100.01)
[2019-07-26 17:09] LABS: Differential Indicated SCAN CRITERIA MET
[2019-07-26 17:12] LABS: Anisocytosis 1+; Macrocytosis 1+; Platelet Estimate SLT DEC (ADEQ)
== END ==
PROVIDERS: PCP Family Medicine Geriatric Medicine; Visit Provider Family Medicine Geriatric Medicine
DX: I10 Essential (primary) hypertension (principal); E55.9 Vitamin D deficiency, unspecified
CPT/HCPCS: 36415; 80053; 82306; 84443; 85025

== ENCOUNTER → 2019-07-27 14:39 | Outpatient (CLI) | payer MEDICARE, OTHER, SELFPAY ==
[2019-07-16 15:40] VITALS: BMI 36.0
--- NOTE | 2019-07-27 14:41 | ECHOCS_ITS ---
Reason For Study: Murmur Procedure This was a 2D Doppler, Color Flow transthoracic echocardiogram. The study was technically difficult. Contrast injection was performed. Exam performed in department. Left Ventricle Normal LV size. Segmental dysfunction with preserved ejection fraction (see wall motion). The estimated ejection fraction is 60 %. Infero-Basal: Hypokinetic. Basal inferoseptal: Hypokinetic. Mid-Inferior: Hypokinetic. Right Ventricle Mildly dilated right ventricle. Normal systolic function. Atria The left atrium is mildly enlarged. Normal right atrium. No doppler evidence for ASD. Mitral Valve There is no mitral annular calcification. Normal mitral valve. Trivial mitral valve insufficiency. Tricuspid Valve Normal tricuspid valve. Mild tricuspid valve insufficiency. Right ventricular systolic pressure estimated to be 34 mmHg. Aortic Valve Trisinus/trileaflet aortic valve. Mild diffuse aortic valve thickening. Mild diffuse aortic valve calcification. Mild to moderate aortic stenosis. Pulmonic Valve The pulmonic valve is not well visualized. Trivial pulmonic valve insufficiency. Great Vessels Mildly dilated aortic root. Pericardium/Pleural No pericardial effusion. Medication 22 gauge I.V. with prn adaptor inserted into right arm. Diluted definity 2ml given slow IV push to enhance endocardial definition. MMode/2D Measurements & Calculations LVIDd: 3.7 cm IVSd: 1.6 cm LVOT diam: 2.0 cm LVIDs: 2.4 cm LVPWd: 1.2 cm FS: 34.1 % LVOT area: 3.0 cm2 Ao root diam: 4.2 cm LAV(MOD-bp): 73.7 ml LVAd ap4: 32.3 cm2 LAV(MOD-bp) Indexed: 32.4 ml/m2 EDV(MOD-sp4): 107.5 ml LAV(MOD-sp2): 68.4 ml EDV(sp4-el): 109.3 ml LAV(MOD-sp4): 75.3 ml LVAs ap4: 16.9 cm2 ESV(MOD-sp4): 40.3 ml ESV(sp4-el): 40.0 ml EF(MOD-sp4): 62.5 % EF(sp4-el): 63.4 % SV(MOD-sp4): 67.2 ml SV(sp4-el): 69.3 ml LA A4 area: 22.3 cm2 RA A4 area: 16.5 cm2 Time Measurements MV dec time: 0.26 sec Doppler Measurements & Calculations MV E max neto: 73.6 cm/sec Lat Peak E' Neto: 13.4 cm/sec Med Peak E' Neto: 7.9 cm/sec MV A max neto: 68.8 cm/sec E/E' lat: 5.5 E/E' med: 9.3 MV E/A: 1.1 MV V2 max: 80.9 cm/sec MV P1/2t max neto: 81.5 cm/sec Ao V2 max: 232.0 cm/sec MV max P.6 mmHg MV P1/2t: 69.2 msec Ao max P.5 mmHg MV V2 mean: 43.6 cm/sec MV dec slope: 344.9 cm/sec2 Ao V2 mean: 157.7 cm/sec MV mean P.89 mmHg MVA(P1/2t): 3.2 cm2 Ao mean P.0 mmHg MV V2 VTI: 25.6 cm Ao V2 VTI: 44.9 cm MVA(VTI): 2.5 cm2 CECILY(I,D): 1.4 cm2 CECILY(V,D): 1.1 cm2 LV V1 max: 86.7 cm/sec SV(LVOT): 62.9 ml PA V2 max: 154.1 cm/sec LV V1 max P.0 mmHg LV V1 mean P.6 mmHg LV V1 mean: 58.3 cm/sec LV V1 VTI: 20.6 cm PI end-d neto: 101.7 cm/sec TR max neto: 279.8 cm/sec TR max P.3 mmHg Interpretation Summary The study was technically difficult. Contrast injection was performed. Segmental dysfunction with preserved ejection fraction (see wall motion). The estimated ejection fraction is 60 %. Mildly dilated right ventricle. The left atrium is mildly enlarged. Trivial mitral valve insufficiency. Mild tricuspid valve insufficiency. Mild to moderate aortic stenosis. Trivial pulmonic valve insufficiency. Mildly dilated aortic root. Right ventricular systolic pressure estimated to be 34 mmHg. Transmitral diastolic flow velocities suggest diastolic dysfunction (pseudonormal pattern). Ordering Physician: Juan Jeronimo Referring Physician: Juan Jeronimo Performed By: Bryant Burgos RCS
== END ==
PROVIDERS: PCP Family Medicine Geriatric Medicine; Referring Provider Internal Medicine Cardiovascular Disease; Visit Provider Internal Medicine Cardiovascular Disease
DX: I35.0 Nonrheumatic aortic (valve) stenosis (principal); I35.1 Nonrheumatic aortic (valve) insufficiency
CPT/HCPCS: 93306; Q9957; A4216; C8929

== ENCOUNTER → 2019-07-30 20:04 | Outpatient (CLI) | payer MEDICARE, OTHER, SELFPAY | PROVIDERS: PCP Family Medicine Geriatric Medicine; Referring Provider Family Medicine Geriatric Medicine; Visit Provider Family Medicine Geriatric Medicine | DX: G47.30 Sleep apnea, unspecified (principal) | CPT/HCPCS: 95811 ==

== ENCOUNTER → 2019-11-06 16:54 | Outpatient (CLI) | payer MEDICARE, OTHER, SELFPAY ==
[2019-10-03 08:05] VITALS: BMI 36.1
--- NOTE | 2019-11-06 17:13 | RAD_ITS ---
STUDY: X-RAY - ABDOMEN/PELVIS REASON FOR EXAM: Male, 83 years old. Abdominal pain TECHNIQUE: 4 AP supine views of the abdomen and pelvis. COMPARISON: May 08, 2018 CT scan abdomen and pelvis FINDINGS: Normal visualized lung bases. There is partial visualization of sternotomy wires. There is mild to moderate stool in the colon. Postoperative changes in the mid lower anterior pelvic wall compatible with prior hernia repair. There is no demonstrated free abdominal air. There is a ovoid visualized radiopaque density projected over the right upper quadrant at the level of the proximate 12 rib. This measures 2.9 cm. Kidneys are not well visualized given overlying bowel gas. There are diffuse degenerative changes of the visualized lumbar spine. RAD/Abd Inc Decub and/or Erect IMPRESSION: Nonspecific bowel gas pattern. Moderate stool in the ascending colon. Postoperative changes status post hernia repairs. Artifact versus stone versus bowel contents. In the right upper quadrant. Recommend correlation with any history of gallstones or renal colic. Electronically Signed: Evon Allen MD at 4:58 EDT Tel , Service support ,
[2019-11-06 17:30] LABS: Absolute Lymphocyte Count 0.58 X10^3/uL (0.83-4.51); Absolute Neutrophil Count 4.2 X10^3/uL (2.0-7.7); Basophil# 0.02 X10^3/uL; Basophil% 0.3 % (0-1); Eosinophil# 0.15 X10^3/uL; Eosinophils% 2.6 % (0-5); Hematocrit 38.7 % (40-54); Hemoglobin 12.9 g/dL (13.0-16.5); Lymphocyte # 0.58 X10^3/ul (4.0); Lymphocyte % 9.9 % (19-41); Mean Corp Hgb Conc 33.3 g/dL (32-36); Mean Corpuscular Hgb 36.4 pg (27.0-32.0); Mean Corpuscular Volume 109.3 fL (80-94); Mean Platelet Vol. 11.8 fl (6.2-12.0); Monocyte# 0.89 X10^3/uL; Monocyte% 15.2 % (0-10); NRBC Flagged by Analyzer 0 % (0-5); Neutrophil # 4.21 X10^3/uL (2.7-7.7); Neutrophil % 71.7 % (47-70); POSITIVE DIFFERENTIAL YES; Platelet Count 150 K/mm3 (150-450); RBC Distribution Width CV 14.7 % (11.6-14.6); Red Blood Count 3.54 M/mm3 (4.6-6.2); White Blood Count 5.9 K/mm3 (4.4-11.0)
[2019-11-06 17:36] LABS: Differential Indicated SCAN CRITERIA MET
[2019-11-06 18:26] LABS: Differential Comment SCANNED
[2019-11-06 18:34] LABS: Anion Gap 6 (5-15); BUN 12 mg/dL (7-18); BUN/Creat Ratio 8.8 RATIO (10-20); Calcium,Total 9.2 mg/dL (8.5-10.1); Chloride 105 mmol/L (98-107); Creatinine, Serum 1.36 mg/dL (0.70-1.30); EST Glomerular Filtration Rate 53 mL/min (>60); Est Glom Filt Rate - Afr Amer 65 mL/min (>60); Glucose 103 mg/dL (74-106); Potassium 4.3 mmol/L (3.5-5.1); Sodium Level 141 mmol/L (136-145)
== END ==
PROVIDERS: PCP Family Medicine Geriatric Medicine; Visit Provider Family Medicine Geriatric Medicine
DX: R60.9 Edema, unspecified (principal); R10.9 Unspecified abdominal pain
CPT/HCPCS: 36415; 74019; 80048; 85025

== ENCOUNTER → 2019-11-15 08:47 | Outpatient (CLI) | payer MEDICARE, OTHER, SELFPAY ==
[2019-10-03 08:05] VITALS: BMI 36.1
--- NOTE | 2019-11-15 08:50 | VDLE_ITS ---
Reason For Study: Edema RIGHT LEFT CFV is compressible, spontaneous, phasic, CFV is compressible, spontaneous, phasic, competent and demonstrates normal competent, and demonstrates normal augmentation. augmentation. Procedure FV is compressible, spontaneous, phasic, Exam performed in department. competent and demonstrates normal A preliminary report was called and/or faxed augmentation. to [facility]. POP V is compressible, spontaneous, phasic, competent and demonstrates normal augmentation. T/P Trunk is compressible. PTV is compressible. LT PerV is compressible. Acute superficial vein thrombosis is noted in the left GSV from the knee to ankle. GSV from knee to groin is partially compressible with bright intraluminal echoes noted. Interpretation Summary Deep veins of the left lower extremity are patent and compressible segmentally. There is no evidence of left lower extremity deep vein thrombosis. Valvular competence appears intact within the proximal deep venous system on the left . Acute superficial thrombophlebitis is noted in the left great saphenous vein from the knee to the ankle. Chronic venous changes are noted in the left great saphenous vein above the knee. Ordering Physician: Kaiser Pan Referring Physician: Kaiser Pan Chi Performed By: Kathy Ureña RVT
== END ==
PROVIDERS: PCP Family Medicine Geriatric Medicine; Referring Provider Family Medicine Geriatric Medicine; Visit Provider Family Medicine Geriatric Medicine
DX: R60.0 Localized edema (principal)
CPT/HCPCS: 93971

== ENCOUNTER → 2019-12-26 15:19 | Outpatient (CLI) | payer MEDICARE, OTHER, SELFPAY ==
[2019-10-03 08:05] VITALS: BMI 36.1
--- NOTE | 2019-12-26 16:00 | RAD_ITS ---
STUDY: X-RAY CHEST REASON FOR EXAM: Male, 84 years old. Bilateral leg edema x 1 month. SOB TECHNIQUE: PA and lateral views of the chest. COMPARISON: Prior study of 01/09/2019 FINDINGS: The lungs are clear and expanded. There is no demonstrated pleural abnormality. The heart size is within normal limits. Status post median sternotomy changes are noted. Normal mediastinum and francis. There is prominence of the pulmonary hilar arteries and peripheral pulmonary arteries, consistent with congestive heart failure (CHF). There are calcified plaques of the thoracic aorta with uncoiling noted. Normal visualized thoracic spine. Normal visualized ribs, clavicles, and shoulders. There is no demonstrated abnormality of the visualized soft tissue structures of the upper abdomen. RAD/Chest PA and Lateral IMPRESSION: Mild CHF. This is new in the interval. Status post median sternotomy. Calcified plaques of the thoracic aorta with uncoiling noted. Electronically Signed: Fernando Soto MD at 16:20 EDT , Service support ,
[2019-12-26 16:11] LABS: Absolute Lymphocyte Count 0.65 X10^3/uL (0.83-4.51); Absolute Neutrophil Count 2.9 X10^3/uL (2.0-7.7); Basophil# 0.02 X10^3/uL; Basophil% 0.4 % (0-1); Eosinophil# 0.19 X10^3/uL; Eosinophils% 4.1 % (0-5); Hematocrit 39.5 % (40-54); Hemoglobin 13.2 g/dL (13.0-16.5); Lymphocyte # 0.65 X10^3/ul (4.0); Lymphocyte % 14.2 % (19-41); Mean Corp Hgb Conc 33.4 g/dL (32-36); Mean Corpuscular Hgb 36.9 pg (27.0-32.0); Mean Corpuscular Volume 110.3 fL (80-94); Mean Platelet Vol. 12.2 fl (6.2-12.0); Monocyte# 0.84 X10^3/uL; Monocyte% 18.3 % (0-10); NRBC Flagged by Analyzer 0 % (0-5); Neutrophil # 2.87 X10^3/uL (2.7-7.7); Neutrophil % 62.8 % (47-70); Platelet Count 149 K/mm3 (150-450); RBC Distribution Width CV 14.3 % (11.6-14.6); RBC Distribution Width SD 58.4 fl (35.1-43.9); Red Blood Count 3.58 M/mm3 (4.6-6.2); White Blood Count 4.6 K/mm3 (4.4-11.0)
[2019-12-26 17:02] LABS: ALB/GLOB Ratio 1.1 RATIO (0.9-2.4); AST(SGOT) 19 U/L (15-37); Alanine Aminotransfer ALT/SGPT 22 U/L (16-61); Albumin, Serum 3.7 g/dL (3.2-5.0); Alkaline Phosphatase 85 U/L (45-117); Anion Gap 3 (5-15); BNP,B-Type NATRIURETIC PEPTIDE 162.7 pg/mL (0-100); BUN 14 mg/dL (7-18); BUN/Creat Ratio 11.4 RATIO (10-20); CPK Total, Creatine Kinase 48 U/L (39-308); Calcium,Total 9.1 mg/dL (8.5-10.1); Chloride 108 mmol/L (98-107); Creatinine, Serum 1.23 mg/dL (0.70-1.30); EST Glomerular Filtration Rate 60 mL/min (>60); Est Glom Filt Rate - Afr Amer 72 mL/min (>60); Globulin 3.5 g/dL (2.2-4.2); Glucose 92 mg/dL (74-106); Potassium 4.5 mmol/L (3.5-5.1); Protein, Total 7.2 g/dL (6.4-8.2); Sodium Level 142 mmol/L (136-145); Thyroid Stim Hormone (TSH) 1.92 uIU/mL (0.358-3.74)
[2019-12-28 14:57] LABS: Myoglobin, Serum 38 ng/mL (28-72)
== END ==
PROVIDERS: PCP Family Medicine Geriatric Medicine; Referring Provider Family Medicine Geriatric Medicine; Visit Provider Family Medicine Geriatric Medicine
DX: I25.10 Atherosclerotic heart disease of native coronary artery without angina pectoris (principal); I50.33 Acute on chronic diastolic (congestive) heart failure; R06.89 Other abnormalities of breathing
CPT/HCPCS: 36415; 71046; 80053; 82550; 83874; 83880; 84443; 84484; 85025

== ENCOUNTER → 2020-01-10 14:50 | Outpatient (CLI) | payer MEDICARE, OTHER, SELFPAY ==
[2019-10-03 08:05] VITALS: BMI 36.1
[2020-01-10 16:13] LABS: Anion Gap 2 (5-15); BUN 21 mg/dL (7-18); BUN/Creat Ratio 13.8 RATIO (10-20); Calcium,Total 9.1 mg/dL (8.5-10.1); Chloride 104 mmol/L (98-107); Creatinine, Serum 1.52 mg/dL (0.70-1.30); EST Glomerular Filtration Rate 47 mL/min (>60); Est Glom Filt Rate - Afr Amer 57 mL/min (>60); Glucose 82 mg/dL (74-106); Potassium 4.1 mmol/L (3.5-5.1); Sodium Level 139 mmol/L (136-145)
== END ==
PROVIDERS: PCP Family Medicine Geriatric Medicine; Visit Provider Family Medicine Geriatric Medicine
DX: N18.3 Chronic kidney disease, stage 3 (moderate) (principal)
CPT/HCPCS: 36415; 80048

== ENCOUNTER → 2020-01-21 12:55 | Outpatient (CLI) | payer MEDICARE, OTHER, SELFPAY ==
[2019-10-03 08:05] VITALS: BMI 36.1
[2020-01-18 11:51] VITALS: BMI 37.5
[2020-01-21 14:31] LABS: Anion Gap 5 (5-15); BUN 23 mg/dL (7-18); BUN/Creat Ratio 15.2 RATIO (10-20); Chloride 105 mmol/L (98-107); Creatinine, Serum 1.51 mg/dL (0.70-1.30); EST Glomerular Filtration Rate 47 mL/min (>60); Est Glom Filt Rate - Afr Amer 57 mL/min (>60); Glucose 73 mg/dL (74-106); Sodium Level 141 mmol/L (136-145)
--- NOTE | 2020-01-21 16:29 | NEURO ---
NCS and/or EMG Patient Report Ordering Doctor: Peter Smith DATE OF SERVICE: 01/21/20 Indication: Persistent pain and numbness in the first 3 digits of the left hand. 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 The patient estimates this intervention was approximately 3 months ago, but he is failed to see any significant improvement since that time. Evaluate for signs of ongoing median nerve entrapment Findings: Nerve conduction studies were performed in the left upper extremity. The left median motor study recording the abductor pollicis brevis demonstrated a reduced amplitude, markedly prolonged distal latency and slowed conduction velocity. At the antecubital fossa, supramaximal stimulation could not be achieved despite maximal settings. This gives the false impression of a conduction block in the forearm. This is unlikely to be the case given the preserved strength in the left abductor pollicis brevis. The ulnar motor study recording the left abductor digiti minimi revealed a normal amplitude, normal distal latency and borderline normal conduction velocity. No significant focal slowing or conduction block was seen across the elbow. The left median sensory response recording digit 2 was absent. The left ulnar sensory response recording digit 5 demonstrated a normal amplitude, normal peak latency and normal conduction velocity. The left radial sensory response recording the snuffbox demonstrated a normal amplitude, normal peak latency and normal conduction velocity. Needle EMG of the left upper extremity and paraspinal muscles was performed. No active denervation was seen in any examined muscle. A complex repetitive discharge was seen in the lower cervical paraspinal muscles. The triceps revealed motor units which were large amplitude, long duration, slightly polyphasic with a slightly reduced recruitment pattern. The flexor carpi radialis, extensor indices, abductor digiti minimi revealed slightly large, long duration motor units with no polyphasia and a normal recruitment pattern. The deltoid exhibited normal motor unit morphology, activation and recruitment patterns. Impression: This is an abnormal and complex study. 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 The pathophysiology is demyelinating, though there is a significant degree of secondary axonal loss (sensory greater than motor). That said, there is no active denervation of the thenar muscles to suggest ongoing nerve injury. These findings are compatible with a clinical diagnosis of carpal tunnel syndrome. It is certainly possible that these findings predated the patient's CTS release surgery. A neuromuscular ultrasound of the median nerve at the wrist may be useful in determining if the nerve was adequately decompressed (i.e presence of a notch sign on longitudinal imaging). 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 Please note, a C7 radiculopathy could manifest with similar sensory symptoms as a median neuropathy at the wrist. Tra Sheffield D.O.
== END ==
PROVIDERS: Nurse Practitioner Family; PCP Family Medicine Geriatric Medicine; Referring Provider Orthopaedic Surgery; Visit Provider Orthopaedic Surgery
DX: G56.02 Carpal tunnel syndrome, left upper limb (principal); R06.00 Dyspnea, unspecified
CPT/HCPCS: 36415; 80048; 83880; 95886; 95909

== ENCOUNTER → 2020-01-24 13:53 | Outpatient (CLI) | payer MEDICARE, OTHER, SELFPAY ==
[2020-01-18 11:51] VITALS: BMI 37.5
[2020-01-24 15:19] LABS: Absolute Lymphocyte Count 0.66 X10^3/uL (0.83-4.51); Absolute Neutrophil Count 3.6 X10^3/uL (2.0-7.7); Basophil# 0.02 X10^3/uL; Basophil% 0.4 % (0-1); Eosinophil# 0.23 X10^3/uL; Eosinophils% 4.2 % (0-5); Hematocrit 38.3 % (40-54); Hemoglobin 12.7 g/dL (13.0-16.5); Lymphocyte # 0.66 X10^3/ul (4.0); Mean Corp Hgb Conc 33.2 g/dL (32-36); Mean Corpuscular Hgb 36.7 pg (27.0-32.0); Mean Corpuscular Volume 110.7 fL (80-94); Mean Platelet Vol. 12.3 fl (6.2-12.0); Monocyte# 0.99 X10^3/uL; NRBC Flagged by Analyzer 0 % (0-5); Neutrophil # 3.57 X10^3/uL (2.7-7.7); Platelet Count 159 K/mm3 (150-450); RBC Distribution Width CV 14.6 % (11.6-14.6); RBC Distribution Width SD 59.2 fl (35.1-43.9); Red Blood Count 3.46 M/mm3 (4.6-6.2); White Blood Count 5.5 K/mm3 (4.4-11.0)
[2020-01-24 15:35] LABS: Vitamin D,25 Hydroxy 31.8 ng/mL
[2020-01-24 15:44] LABS: ALB/GLOB Ratio 1.1 RATIO (0.9-2.4); AST(SGOT) 20 U/L (15-37); Alanine Aminotransfer ALT/SGPT 24 U/L (16-61); Albumin, Serum 3.6 g/dL (3.2-5.0); Alkaline Phosphatase 80 U/L (45-117); Anion Gap 2 (5-15); BUN 21 mg/dL (7-18); BUN/Creat Ratio 14.7 RATIO (10-20); Calcium,Total 8.9 mg/dL (8.5-10.1); Chloride 106 mmol/L (98-107); Creatinine, Serum 1.43 mg/dL (0.70-1.30); EST Glomerular Filtration Rate 50 mL/min (>60); Est Glom Filt Rate - Afr Amer 61 mL/min (>60); Globulin 3.4 g/dL (2.2-4.2); Glucose 102 mg/dL (74-106); Potassium 4.7 mmol/L (3.5-5.1); Sodium Level 139 mmol/L (136-145); Thyroid Stim Hormone (TSH) 2.45 uIU/mL (0.358-3.74)
== END ==
PROVIDERS: PCP Family Medicine Geriatric Medicine; Visit Provider Family Medicine Geriatric Medicine
DX: I10 Essential (primary) hypertension (principal); E55.9 Vitamin D deficiency, unspecified
CPT/HCPCS: 36415; 80053; 82306; 84443; 85025

== ENCOUNTER → 2020-01-29 11:57 | Outpatient (CLI) | payer MEDICARE, OTHER, SELFPAY ==
[2020-01-18 11:51] VITALS: BMI 37.5
--- NOTE | 2020-01-29 | LES_PTH ---
PATIENT: ISA MILES LOC: [facility] U#:[id number] AGE/SX: 89/M ROOM: RE01/29/[address]: Dr. Kaiser Pan MD : [id number] BED: DIS: SPEC #: [id number] RECD: 01/29/20 13:33 STATUS: ROLANDO BOB #: [id number] KATELYN: 01/29/20 00:[address]: Kaiser Pan Chi DEPT: SURGICAL PATHOLOGY RECD BY: Kurt Thorne Tissues: Skin of leg, NOS Procedures: Surgery Specimen Level IV HEADER OPERATION: Right leg shave biopsy PRE-OP DIAGNOSIS: Right leg TISSUE SUBMITTED: Right leg MICROSCOPIC DIAGNOSIS Skin lesion of right leg, shave biopsy: Verrucoid lesion with hyperkeratosis and parakeratosis, mildly inflamed. See comment. AM:wilmer 01/30/20 COMMENT The lesion is transected at the base. Complete excision of lesion is recommended for definitive classification. MICROSCOPIC DESCRIPTION Slides are reviewed. GROSS DESCRIPTION Received in fixative is one container labeled with the patient's name and designated right leg. The specimen consists of a shave biopsy of wilde-white skin measuring 1.2 x 0.7 x 0.1 cm. The specimen is inked and submitted entirely in one cassette. It will be sectioned at the time of embedding. / SJ:rg 01/29/20 TC:5 CPT: 90427
== END ==
PROVIDERS: PCP Family Medicine Geriatric Medicine; Visit Provider Family Medicine Geriatric Medicine
DX: L98.9 Disorder of the skin and subcutaneous tissue, unspecified (principal)
CPT/HCPCS: 88305

== ENCOUNTER → 2020-03-26 11:54 | Outpatient (CLI) | payer MEDICARE, OTHER, SELFPAY ==
[2020-03-17 15:15] VITALS: BMI 41.0
[2020-03-26 12:21] LABS: Absolute Lymphocyte Count 0.56 X10^3/uL (0.83-4.51); Absolute Neutrophil Count 3.8 X10^3/uL (2.0-7.7); Basophil# 0.03 X10^3/uL; Basophil% 0.5 % (0-1); Eosinophil# 0.23 X10^3/uL; Eosinophils% 4.2 % (0-5); Hematocrit 39.3 % (40-54); Lymphocyte # 0.56 X10^3/ul (4.0); Lymphocyte % 10.2 % (19-41); Mean Corp Hgb Conc 33.1 g/dL (32-36); Mean Corpuscular Volume 108.9 fL (80-94); Mean Platelet Vol. 12.1 fl (6.2-12.0); Monocyte# 0.81 X10^3/uL; Monocyte% 14.8 % (0-10); NRBC Flagged by Analyzer 0 % (0-5); Neutrophil # 3.84 X10^3/uL (2.7-7.7); Neutrophil % 69.9 % (47-70); POSITIVE DIFFERENTIAL YES; Platelet Count 164 K/mm3 (150-450); RBC Distribution Width CV 14.5 % (11.6-14.6); RBC Distribution Width SD 58.5 fl (35.1-43.9); Red Blood Count 3.61 M/mm3 (4.6-6.2); White Blood Count 5.5 K/mm3 (4.4-11.0)
[2020-03-26 12:32] LABS: Differential Indicated SCAN CRITERIA MET
[2020-03-26 12:49] LABS: ALB/GLOB Ratio 1.1 RATIO (0.9-2.4); AST(SGOT) 23 U/L (15-37); Alanine Aminotransfer ALT/SGPT 27 U/L (16-61); Albumin, Serum 3.7 g/dL (3.2-5.0); Alkaline Phosphatase 83 U/L (45-117); Amylase 44 U/L (25-115); Anion Gap 3 (5-15); BUN 14 mg/dL (7-18); BUN/Creat Ratio 10.1 RATIO (10-20); Calcium,Total 9.1 mg/dL (8.5-10.1); Chloride 108 mmol/L (98-107); Creatinine, Serum 1.38 mg/dL (0.70-1.30); EST Glomerular Filtration Rate 52 mL/min (>60); Est Glom Filt Rate - Afr Amer 63 mL/min (>60); Globulin 3.5 g/dL (2.2-4.2); Glucose 112 mg/dL (74-106); Lipase 80 U/L (73-393); Potassium 4.5 mmol/L (3.5-5.1); Protein, Total 7.2 g/dL (6.4-8.2); Sodium Level 140 mmol/L (136-145)
[2020-03-26 13:04] LABS: Anisocytosis 1+; Platelet Estimate ADEQUATE (ADEQ); Red Cell Morphology N CHROM NORMAL (NORM C&C)
--- NOTE | 2020-03-26 13:31 | CT_ITS ---
STUDY: CT ABDOMEN AND PELVIS WITH CONTRAST REASON FOR EXAM: Male, 84 years old. DIVERTICULITIS OF COLON. UPPER AND LOWER CENTER ABD PAIN. RADIATION DOSAGE (If Supplied By Facility): CTDIvol = ( 21.96 ) mGy, DLP = ( 1300.46 ) mGycm TECHNIQUE: Transaxial images were obtained from the dome of the diaphragm to the symphysis pubis with oral contrast. Oral and amp; IV Gastrografin and amp; 100mL Isovue-300 was administered. Sagittal and coronal images were reconstructed. Individualized dose optimization techniques were used for this CT. COMPARISON: Comparison is made with prior examination dated 05/08/2018. FINDINGS: Stable mild increased markings at the lung bases suggestive of scarring. Coronary artery calcification. Normal liver. Normal gallbladder and extrahepatic biliary system. Normal spleen. Normal pancreas. Normal bilateral adrenal glands. 1 cm cyst in the anterior medial aspect of the upper pole of the right kidney. 2 mm calculus in the anterior midpole calyx of the right kidney. There is a 4 cm x 3.8 cm cyst in the mid lower pole of the left kidney. One subareolar cyst in the lower pole of the left kidney. Normal visualized stomach. Normal small intestine. There are multiple colonic diverticula consistent with diverticulosis. The appendix is visualized and appears normal. There is diffuse atherosclerotic calcification of the abdominal aorta, without a demonstrated aneurysm. Normal inferior vena cava. Normal retroperitoneum. Normal urinary bladder. There are prostatic calcifications. The prostate measures 4.1 cm x 5.7 cm. This causes indentation of the bladder base. Prior repair of a left inguinal hernia with a mesh. There are diffuse degenerative changes of the visualized lumbar spine. CT/Abdomen/Pelvis WITH Contrast IMPRESSION: Sigmoid diverticulosis. Stable left renal cyst. Prostatic enlargement with calcification. Electronically Signed: Mohan Wharton, at 14:59 EDT , Service support ,
== END ==
PROVIDERS: PCP Family Medicine Geriatric Medicine; Referring Provider Family Medicine Geriatric Medicine; Visit Provider Family Medicine Geriatric Medicine
DX: R10.9 Unspecified abdominal pain (principal); R06.02 Shortness of breath; M54.16 Radiculopathy, lumbar region; K57.32 Diverticulitis of large intestine without perforation or abscess without bleeding
CPT/HCPCS: 36415; 74177; 80053; 82150; 83690; 83880; 85025; Q9967

== ENCOUNTER → 2020-03-28 07:08 | Outpatient (CLI) | payer MEDICARE, OTHER, SELFPAY ==
[2020-03-17 15:15] VITALS: BMI 41.0
--- NOTE | 2020-03-28 07:16 | MRI_ITS ---
STUDY: MRI LUMBAR SPINE WITHOUT CONTRAST REASON FOR EXAM: Male, 84 years old. LBP, prior surgery TECHNIQUE: Standardized fat and water weighted pulse sequences were obtained in the sagittal and axial planes. COMPARISON: X-ray 03/06/2020, 05/31/2012 FINDINGS: T12-L1: Normal endplates. Normal disc height, hydration and morphology. Normal bilateral facet joints. Normal central canal and bilateral lateral recesses. Normal bilateral intervertebral neural foramina. Normal lumbar lordosis. There is no substantial scoliosis. Normal conus medullaris that terminates at the L1/L2. L1-2: Normal endplates. Normal disc height, hydration and morphology. Normal bilateral facet joints. Normal central canal and bilateral lateral recesses. Normal bilateral intervertebral neural foramina. L2-3: Ankylosis of the facet joints. 2 mm retrolisthesis of L2 on L3 with bony bridging of the disc space. Mild spinal stenosis and mild bilateral neural foraminal stenosis. L3-4: Mild bilateral facet hypertrophy. 2 mm retrolisthesis of L3 on L4 with a mild broad disc protrusion produces mild spinal stenosis and the moderate bilateral neural foraminal stenosis. L4-5: Mild bilateral facet hypertrophy and ligament flavum hypertrophy. Mild broad disc protrusion produces mild spinal stenosis and mild bilateral neural foraminal stenosis. L5-S1: Mild bilateral facet hypertrophy. 2 mm of anterolisthesis of L5 on S1 with a mild broad disc protrusion produces mild spinal stenosis and mild bilateral neural foraminal stenosis. Normal visualized sacral ala. Normal visualized paraspinous soft tissue structures. MRI/Spine Lumbar (Routine) IMPRESSION: Multilevel degenerative changes, as described above. Electronically Signed: Feroz Toth MD at 15:49 EDT Tel , Service support ,
== END ==
PROVIDERS: PCP Family Medicine Geriatric Medicine; Referring Provider Family Medicine Geriatric Medicine; Visit Provider Family Medicine Geriatric Medicine
DX: M54.5 Low back pain (principal)
CPT/HCPCS: 72148; A4216; J2785

== ENCOUNTER → 2020-04-01 07:04 | Outpatient (CLI) | payer MEDICARE, OTHER, SELFPAY ==
[2020-03-17 15:15] VITALS: BMI 41.0
--- NOTE | 2020-04-01 14:43 | STRESSREP_ITS ---
Stress Test Report Date: 04-01-2020 Procedure: Pharmacologic stress nuclear imaging study Indications: Chest pain; CAD; status post PCI; status post CABG Consent: Per the patient Procedure: The patient underwent pharmacologic (Regadenoson) evaluation with a peak heart rate of 80 beats per minute (57%predicted maximal heart rate) and a peak blood pressure of 156/90 mmHg. The baseline ECG demonstrated sinus rhythm; poor R wave progression. The peak pharmacologic ECG demonstrated no obvious ECG changes. There was an occasional PAC pretest and during recovery and an occasional PVC during recovery. There was no complaint of chest discomfort during pharmacologic infusion or recovery. The examination was discontinued secondary to completion of protocol. Impression: 1. Pharmacologic (Regadenoson) evaluation 2. Peak pharmacologic ECG with no obvious ECG changes. 3. There was an occasional PAC pretest and during recovery and an occasional P VC during recovery. 4. Nuclear images pending Myocardial perfusion imaging study: Technique: The patient was injected with 15.0 millicuries of technetium 99m Cardiolite and subsequently rest SPECT Cardiolite nuclear imaging was obtained in the horizontal long, vertical long, and short axis views. The patient underwent pharmacologic (Regadenoson) evaluation with a peak heart rate of 80 beats per minute (57% percent predicted maximal heart rate) and a peak blood pressure of 156/90 mmHg. The patient was injected with 45.0 millicuries of technetium 99m Cardiolite and subsequently stress SPECT Cardiolite nuclear imaging was obtained in the horizontal long, vertical long, and short axis views. A gated Cardiolite study at peak stress was obtained. Interpretation: Rest and stress SPECT Cardiolite nuclear imaging status post realignment, normalization, and attenuation correction demonstrate relative uniform tracer uptake and myocardial perfusion appearing within normal limits. There is end systolic thickening and brightening. The gated Cardiolite study demonstrates myocardial thickening and inward wall motion. The reported LVEF is 74%. Impression: 1. Rest and stress SPECT Cardiolite nuclear imaging demonstrate relative uniform tracer uptake and myocardial perfusion appearing within normal limits. 2. The gated Cardiolite study reports an LVEF of 74%. This note was generated with [employer] software. It may contain incorrect words, spelling, and punctuation that were not noted in checking the note before signing.
== END ==
PROVIDERS: PCP Family Medicine Geriatric Medicine; Referring Provider Nurse Practitioner Family; Visit Provider Nurse Practitioner Family
DX: R07.9 Chest pain, unspecified (principal); I25.708 Atherosclerosis of coronary artery bypass graft(s), unspecified, with other forms of angina pectoris; Z86.79 Personal history of other diseases of the circulatory system; Z95.1 Presence of aortocoronary bypass graft; Z98.890 Other specified postprocedural states; R06.02 Shortness of breath
CPT/HCPCS: 78452; 93017; A9500; A4216; J2785

== ENCOUNTER 2020-04-01 09:26 | Emergency (ER) | payer MEDICARE, OTHER, SELFPAY ==
[2020-03-17 15:15] VITALS: BMI 41.0
[2020-04-01 09:27] VITALS: BP 145/81; PULSE 67; RESP 18; TEMP 36.1; O2SAT 98; BMI 39.4
[2020-04-01] MEDS: Orphenadrine 100 MG Tablet PO (10:10)
[2020-04-01] MEDS: HYDROcodone Bitartrate/Apap 5/325 Tablet PO (10:11)
--- NOTE | 2020-04-01 11:02 | ED.DCSUM_ITS ---
- ER Visit Summary Date of Service: 04/01/20 Chief Complaint: Back pain and spasms History of Present Illness: The patient is a 84 M who presents with back pain and spasms that became worse today. Patient has had x-rays and MRIs of his lumbar spine recently. Patient states that his pain is in the lower thoracic and upper lumbar area. Patient denies any trauma or injury. Patient states his pain is worse with movement. Patient denies any radiation of the pain to his legs or abdomen. Patient denies any paresthesias or weakness. Physical Examination: Vital signs are stable. Patient is afebrile. Patient is in no acute distress. Musculoskeletal exam reveals tenderness and mild spasm of the right lower thoracic and upper lumbar paraspinal muscles. There is no midline tenderness. There is no bony crepitance or step-off. Range of motion was slightly limited in all motion secondary to pain. Strength is 5/5 bilateral in the upper and lower extremities. There are no sensory deficits noted. Test Results: I reviewed his x-rays and MRIs which show degenerative changes. There is no evidence for cauda equina. There is no herniated disc noted. There is no fracture or spondylolisthesis noted. Emergency Department Course and Treatment: Patient was given a dose of [place] and Norflex here. Patient was feeling better on reevaluation. Patient did develop some wheezing after taking the [place]. Family reports that he developed wheezing after taking tramadol in the past. Patient was given prescriptions for Norflex and [place] to take as needed. Patient was also given a prescription for an albuterol inhaler to take for any wheezing after taking a [place]. Patient was instructed to follow-up with his primary care physician for further management of his back pain. Patient and family understood and were agreeable with the plan. All questions were answered. Disposition: Discharge home Impression: Lumbar strain This note was generated with [employer] dictation software. It may contain incorrect words, spelling, and punctuation that were not noted in review of the chart prior to signing ED Disposition - Plan for ED Patient: Disposition: Home or Assisted Living Diagnosis: Lumbar strain Instructions: ED Neck Back Pain General, ED LUMBAR SPRAIN/STRAIN Prescriptions: Hydrocodone Bitart/Apap 5-325 [[place] 5MG-325MG] 1 tab PO Q6H PRN PRN 3 Days #10 tab PRN Reason: Pain Prescription Printed Orphenadrine [Norflex ER] 100 mg ORAL QHS PRN PRN #10 tab PRN Reason: Muscle Spasm Transmission Status: Pending to [facility] #30 Albuterol Inhaler [Ventolin Hfa] 1 - 2 puff INHALATION Q4H PRN PRN #1 inhaler PRN Reason: Wheezing Transmission Status: Pending to [facility] #30 Referrals: [facility], MD [Primary Care Provider] - 3-5 Days
[2020-04-01 11:41] VITALS: BP 142/80; PULSE 79; RESP 17; O2SAT 97
== END 2020-04-01 11:42 | disposition home or self-care (01) ==
PROVIDERS: Emergency Provider Emergency Medicine; PCP Family Medicine Geriatric Medicine
DX: S39.012A Strain of muscle, fascia and tendon of lower back, initial encounter (principal); M62.830 Muscle spasm of back; X58.XXXA Exposure to other specified factors, initial encounter; Y93.9 Activity, unspecified; Y92.9 Unspecified place or not applicable; Y99.9 Unspecified external cause status; I25.708 Atherosclerosis of coronary artery bypass graft(s), unspecified, with other forms of angina pectoris; R07.9 Chest pain, unspecified; R06.02 Shortness of breath; Z79.82 Long term (current) use of aspirin; Z79.899 Other long term (current) drug therapy; Z86.79 Personal history of other diseases of the circulatory system; Z95.1 Presence of aortocoronary bypass graft
CPT/HCPCS: 78452; 93017; 99283; A9500; A4216; J2785

== ENCOUNTER 2020-05-07 15:06 | Outpatient (RCR) | payer MEDICARE, OTHER, SELFPAY | END 2020-05-07 19:00 | disposition home or self-care (01) | LOC: PT 15:06 | PROVIDERS: PCP Family Medicine Geriatric Medicine; Referring Provider Anesthesiology Pain Medicine; Visit Provider Anesthesiology Pain Medicine | DX: M54.9 Dorsalgia, unspecified (principal) | CPT/HCPCS: 97110; 97161 ==

== ENCOUNTER → 2020-05-26 16:24 | Outpatient (CLI) | payer MEDICARE, OTHER, SELFPAY ==
[2020-05-26 18:09] LABS: Absolute Lymphocyte Count 0.38 X10^3/uL (0.83-4.51); Absolute Neutrophil Count 3.7 X10^3/uL (2.0-7.7); Basophil# 0.03 X10^3/uL; Basophil% 0.6 % (0-1); Eosinophil# 0.18 X10^3/uL; Eosinophils% 3.4 % (0-5); Hematocrit 40.8 % (40-54); Hemoglobin 13.6 g/dL (13.0-16.5); Lymphocyte # 0.38 X10^3/ul (4.0); Lymphocyte % 7.1 % (19-41); Mean Corp Hgb Conc 33.3 g/dL (32-36); Mean Corpuscular Hgb 36.2 pg (27.0-32.0); Mean Corpuscular Volume 108.5 fL (80-94); Mean Platelet Vol. 11.5 fl (6.2-12.0); Monocyte# 0.99 X10^3/uL; Monocyte% 18.4 % (0-10); NRBC Flagged by Analyzer 0 % (0-5); Neutrophil # 3.74 X10^3/uL (2.7-7.7); Neutrophil % 69.6 % (47-70); POSITIVE DIFFERENTIAL YES; Platelet Count 183 K/mm3 (150-450); RBC Distribution Width CV 14.6 % (11.6-14.6); RBC Distribution Width SD 58.7 fl (35.1-43.9); Red Blood Count 3.76 M/mm3 (4.6-6.2); White Blood Count 5.4 K/mm3 (4.4-11.0)
[2020-05-26 18:13] LABS: Differential Indicated SCAN CRITERIA MET
[2020-05-26 18:52] LABS: ALB/GLOB Ratio 0.8 RATIO (0.9-2.4); AST(SGOT) 24 U/L (15-37); Alanine Aminotransfer ALT/SGPT 35 U/L (16-61); Alkaline Phosphatase 69 U/L (45-117); Anion Gap 6 (5-15); BUN 14 mg/dL (7-18); BUN/Creat Ratio 12.5 RATIO (10-20); Calcium,Total 9.2 mg/dL (8.5-10.1); Chloride 107 mmol/L (98-107); Creatinine, Serum 1.12 mg/dL (0.70-1.30); EST Glomerular Filtration Rate 67 mL/min (>60); Est Glom Filt Rate - Afr Amer 81 mL/min (>60); Globulin 3.7 g/dL (2.2-4.2); Glucose 89 mg/dL (74-106); Potassium 4.2 mmol/L (3.5-5.1); Protein, Total 6.7 g/dL (6.4-8.2); Sodium Level 138 mmol/L (136-145); Thyroid Stim Hormone (TSH) 1.06 uIU/mL (0.358-3.74)
[2020-05-26 19:01] LABS: BNP,B-Type NATRIURETIC PEPTIDE 59.2 pg/mL (0-100)
== END ==
PROVIDERS: PCP Family Medicine Geriatric Medicine; Visit Provider Family Medicine Geriatric Medicine
DX: I10 Essential (primary) hypertension (principal); N39.0 Urinary tract infection, site not specified; R06.89 Other abnormalities of breathing; R06.09 Other forms of dyspnea
CPT/HCPCS: 36415; 80053; 83880; 84443; 85025; 87086; 87088

== ENCOUNTER → 2020-07-29 13:18 | Outpatient (CLI) | payer MEDICARE, OTHER, SELFPAY ==
[2020-07-29 15:18] LABS: Absolute Lymphocyte Count 0.63 X10^3/uL (0.83-4.51); Absolute Neutrophil Count 3.4 X10^3/uL (2.0-7.7); Basophil# 0.04 X10^3/uL; Basophil% 0.8 % (0-1); Eosinophils% 2.1 % (0-5); Hematocrit 40.3 % (40-54); Lymphocyte # 0.63 X10^3/ul (4.0); Mean Corp Hgb Conc 32.3 g/dL (32-36); Mean Corpuscular Hgb 36.5 pg (27.0-32.0); Mean Corpuscular Volume 113.2 fL (80-94); Mean Platelet Vol. 11.9 fl (6.2-12.0); Monocyte# 0.68 X10^3/uL; NRBC Flagged by Analyzer 0 % (0-5); Neutrophil # 3.37 X10^3/uL (2.7-7.7); Neutrophil % 69.5 % (47-70); Platelet Count 147 K/mm3 (150-450); RBC Distribution Width CV 14.5 % (11.6-14.6); RBC Distribution Width SD 61.4 fl (35.1-43.9); Red Blood Count 3.56 M/mm3 (4.6-6.2); White Blood Count 4.9 K/mm3 (4.4-11.0)
[2020-07-29 15:30] LABS: Vitamin D,25 Hydroxy 17.8 ng/mL
[2020-07-29 15:37] LABS: AST(SGOT) 16 U/L (15-37); Alanine Aminotransfer ALT/SGPT 21 U/L (16-61); Albumin, Serum 3.3 g/dL (3.2-5.0); Alkaline Phosphatase 65 U/L (45-117); Anion Gap 7 (5-15); BUN 14 mg/dL (7-18); BUN/Creat Ratio 12.3 RATIO (10-20); Calcium,Total 8.8 mg/dL (8.5-10.1); Chloride 107 mmol/L (98-107); Creatinine, Serum 1.14 mg/dL (0.70-1.30); EST Glomerular Filtration Rate 65 mL/min (>60); Est Glom Filt Rate - Afr Amer 79 mL/min (>60); Globulin 3.2 g/dL (2.2-4.2); Glucose 87 mg/dL (74-106); Potassium 3.8 mmol/L (3.5-5.1); Protein, Total 6.5 g/dL (6.4-8.2); Sodium Level 142 mmol/L (136-145); Thyroid Stim Hormone (TSH) 2.08 uIU/mL (0.358-3.74)
== END ==
PROVIDERS: PCP Family Medicine Geriatric Medicine; Visit Provider Family Medicine Geriatric Medicine
DX: I10 Essential (primary) hypertension (principal); E55.9 Vitamin D deficiency, unspecified
CPT/HCPCS: 36415; 80053; 82306; 84443; 85025

== ENCOUNTER 2020-08-28 17:27 | Outpatient (RCR) | payer MEDICARE, OTHER, SELFPAY ==
[2020-08-22 15:32] VITALS: BMI 36.8
[2020-08-28] MEDS: COVID-19 VACC, MRNA(PFIZER)/PF 30 MCG/0.3 ML SYRINGE IM (15:57)
[2020-09-18] MEDS: COVID-19 VACC, MRNA(PFIZER)/PF 30 MCG/0.3 ML SYRINGE IM (15:21)
== END 2020-12-02 23:59 ==
LOC: IMMUN 17:27
PROVIDERS: Visit Provider Family Medicine
DX: Z23 Encounter for immunization (principal)
CPT/HCPCS: 0001A; 0002A; 91300

== ENCOUNTER → 2020-09-02 13:48 | Outpatient (CLI) | payer MEDICARE, OTHER, SELFPAY ==
[2020-08-22 15:32] VITALS: BMI 36.8
--- NOTE | 2020-09-02 13:49 | ECHOCS_ITS ---
Reason For Study: Murmur Procedure This was a 2D Doppler, Color Flow transthoracic echocardiogram. The study was technically difficult. Contrast injection was performed. Exam performed in department. Left Ventricle Normal LV size. Segmental dysfunction with preserved ejection fraction (see wall motion). The estimated ejection fraction is 60 %. Infero-Basal: Hypokinetic. Basal inferoseptal: Hypokinetic. Mid-Inferior: Hypokinetic. Right Ventricle Normal RV size. Normal systolic function. Atria The left atrium is mildly enlarged. Normal right atrium. No doppler evidence for ASD. Mitral Valve There is no mitral annular calcification. Normal mitral valve. Trivial mitral valve insufficiency. Tricuspid Valve Normal tricuspid valve. Trivial tricuspid valve insufficiency. Right ventricular systolic pressure estimated to be 32 mmHg. Aortic Valve Trisinus/trileaflet aortic valve. Mild diffuse aortic valve thickening. Mild diffuse aortic valve calcification. Mild to moderate aortic stenosis. Pulmonic Valve The pulmonic valve is not well visualized. Trivial pulmonic valve insufficiency. Great Vessels Moderately dilated aortic root. Pericardium/Pleural No pericardial effusion. Medication 22 gauge I.V. with prn adaptor inserted into right arm. Diluted definity 3ml given slow IV push to enhance endocardial definition. MMode/2D Measurements & Calculations LVIDd: 4.3 cm IVSd: 1.6 cm LVOT diam: 2.0 cm LVIDs: 2.6 cm LVPWd: 1.7 cm FS: 39.9 % LVOT area: 3.0 cm2 Ao root diam: 4.7 cm LAV(MOD-sp4): 57.9 ml Aortic Valve Planimetry: 1.4 cm2 LA A4 area: 20.5 cm2 RA A4 area: 18.8 cm2 Time Measurements MV dec time: 0.32 sec Doppler Measurements & Calculations MV E max neto: 87.0 cm/sec Lat Peak E' Neto: 13.6 cm/sec Med Peak E' Neto: 7.2 cm/sec MV A max neto: 74.5 cm/sec E/E' lat: 6.4 E/E' med: 12.0 MV E/A: 1.2 MV V2 max: 94.4 cm/sec MV P1/2t max neto: 92.5 cm/sec Ao V2 max: 245.0 cm/sec MV max P.6 mmHg MV P1/2t: 96.6 msec Ao max P.0 mmHg MV V2 mean: 54.2 cm/sec MV dec slope: 280.4 cm/sec2 Ao V2 mean: 160.6 cm/sec MV mean P.3 mmHg Ao mean P.1 mmHg MV V2 VTI: 29.9 cm MVA(P1/2t): 2.3 cm2 Ao V2 VTI: 54.3 cm MVA(VTI): 2.0 cm2 CECILY(I,D): 1.1 cm2 CECILY(V,D): 1.1 cm2 AI max neto: 385.6 cm/sec LV V1 max: 85.9 cm/sec SV(LVOT): 59.0 ml AI max P.5 mmHg LV V1 max P.0 mmHg AI dec slope: 263.0 cm/sec2 LV V1 mean P.6 mmHg AI P1/2t: 429.4 msec LV V1 mean: 58.8 cm/sec LV V1 VTI: 19.6 cm PA V2 max: 104.0 cm/sec TR max neto: 269.2 cm/sec TR max P.0 mmHg Interpretation Summary The study was technically difficult. Contrast injection was performed. Segmental dysfunction with preserved ejection fraction (see wall motion). The estimated ejection fraction is 60 %. The left atrium is mildly enlarged. Trivial mitral valve insufficiency. Trivial tricuspid valve insufficiency. Mild to moderate aortic stenosis. Trivial pulmonic valve insufficiency. Moderately dilated aortic root. Right ventricular systolic pressure estimated to be 32 mmHg. Transmitral diastolic flow velocities suggest diastolic dysfunction (pseudonormal pattern). Ordering Physician: Juan Jeronimo Referring Physician: [facility] Performed By: Bryant Burgos RCS
== END ==
PROVIDERS: PCP Family Medicine Geriatric Medicine; Referring Provider Internal Medicine Cardiovascular Disease; Visit Provider Internal Medicine Cardiovascular Disease
DX: I35.0 Nonrheumatic aortic (valve) stenosis (principal); I35.1 Nonrheumatic aortic (valve) insufficiency; R01.1 Cardiac murmur, unspecified; G47.33 Obstructive sleep apnea (adult) (pediatric); Z98.890 Other specified postprocedural states
CPT/HCPCS: 93306; Q9957; A4216; C8929

== ENCOUNTER → 2020-12-04 | Outpatient (CLI) | payer MEDICARE, OTHER, SELFPAY ==
[2020-08-22 15:32] VITALS: BMI 36.8
[2020-12-04 18:54] LABS: M R Staph aureus DNA By PCR Negative (Negative); Probe Check PASS; Specimen Processing Control PASS; Staph aureus DNA By PCR NEGATIVE (Negative)
== END | disposition home or self-care (01) ==
LOC: LABSPEC 16:26
PROVIDERS: PCP Family Medicine Geriatric Medicine; Visit Provider Family Medicine Geriatric Medicine
DX: T07.XXXA Unspecified multiple injuries, initial encounter (principal); B95.62 Methicillin resistant Staphylococcus aureus infection as the cause of diseases classified elsewhere
CPT/HCPCS: 87070; 87205; 87640

== ENCOUNTER 2020-12-18 12:48 | Outpatient (RCR) | payer MEDICARE, OTHER, SELFPAY ==
[2020-08-22 15:32] VITALS: BMI 36.8
[2020-12-18 13:14] VITALS: BP 125/84; PULSE 77; TEMP 36.1; BMI 36.8
--- NOTE | 2020-12-18 16:43 | HP.PCM_ITS ---
History of Present Illness Date of Service: 12/18/20 Chief Complaint: Pressure injury left buttock History of Wound: This is an 84-year-old white male who presents to the wound healing center today with complaint of a pressure ulcer to his left buttock. He has a past medical history as listed above significant for a fib on Coumadin, CAD, hypertension, GERD and BPH. The patient presents with his son today who states that he has had issues with this ulcer for the last 7 months. States that it opens up and closes. He was instructed to use DuoDERM by his primary care but has not been doing so. Currently he spends most of his time in a reclining chair and uses a cane and walker to assist with his mobility. He does not do any offloading at this time. He denies any other wound treatment. He denies any other acute concerns. Past medical, family, and social history reviewed and not pertinent to the current visit and all other systems reviewed and negative with exception of those listed above. [facility] Medical History (Updated 12/18/20 @ 16:48 by Abdulaziz Kitchen NP, [employer]) Abnormal result of cardiovascular function study, unspecified Aortocoronary bypass status Atherosclerosis of coronary artery bypass graft(s), unspecified, with other forms of angina pectoris Atrial flutter Benign paroxysmal positional vertigo BPH (benign prostatic hyperplasia) CAD (coronary artery disease) Dizziness and giddiness Essential hypertension Fatigue GERD (gastroesophageal reflux disease) History of atrial fibrillation History of percutaneous transluminal coronary angioplasty Intermittent claudication Laceration of head Left carpal tunnel syndrome Left trigger finger Malignant pericardial effusion Nonrheumatic aortic (valve) insufficiency Nonrheumatic aortic (valve) stenosis Pain in left shoulder Pain in limb Palpitations Precordial chest pain Pressure injury of left buttock, stage 1 Prinzmetal angina Pure hypercholesterolemia Shortness of breath Vertigo Home Medications tamsulosin 0.4 mg PO DAILY 03/06/16 [History Last Taken 05/10/19] nitroglycerin 0.4 mg sublingual tablet 0.4 mg SUBLINGUAL Q5M PRN #25 tab 12/30/17 [Rx Last Taken 02/10/18] atorvastatin 40 mg tablet 40 mg PO QHS tab 06/26/18 [History Last Taken 05/10/19] aspirin 81 mg tablet,delayed release 81 mg PO DAILY 07/04/18 [History Last Taken 05/10/19] omeprazole 40 mg capsule,delayed release 40 mg PO DAILY 07/04/18 [History Last Taken 05/10/19] potassium chloride 20 mEq tablet,extended release 20 meq PO DAILY 07/04/18 [History Last Taken 05/10/19] orphenadrine citrate 100 mg ORAL QHS PRN PRN #10 tab 04/01/20 [Rx Last Taken Unknown] ranolazine 1,000 mg tablet,extended release,12 hr 1,000 mg PO BID #180 tab 07/16/20 [Rx Last Taken Unknown] polyethylene glycol 3350 17 gram oral powder packet 17 g PO DAILY PRN ea 08/22/20 [History Last Taken Unknown] Allergy/AdvReac Type Severity Reaction Status Date / Time tramadol [From [facility]] AdvReac Other Verified 08/22/20 15:32 Family History Father CAD (coronary artery disease) CHF (congestive heart failure) Mother Heart disease Brother Diabetes Cancer Hx of CABG CAD (coronary artery disease) Sister COPD (chronic obstructive pulmonary disease) Diabetes Surgical History H/O cardiac radiofrequency ablation (~10/2006) History of arthroscopy (~07/2011) History of bilateral knee replacement History of carpal tunnel surgery History of left heart catheterization (LHC) (~09/2007) History of PTCA Hx of CABG (~05/2005) Status post total knee replacement, right Social History (Updated 08/22/20 @ 16:[address] Juan Jeronimo MD) Smoking Status: Never smoker alcohol intake: never substance use type: does not use caffeine: No what type of physical activity do you participate in: none seatbelt use: always do you feel safe at home: Yes ROS Constitutional Constitutional: Reports systems reviewed and no addt'l complaints, except as documented Eyes Eyes: Reports systems reviewed and no addt'l complaints, except as documented ENT HEENT: Reports systems reviewed and no addt'l complaints, except as documented Cardiovascular Cardiovascular: Reports systems reviewed and no addt'l complaints, except as documented Respiratory/Chest Respiratory/Chest: Reports systems reviewed and no addt'l complaints, except as documented Gastrointestinal Gastrointestinal: Reports systems reviewed and no addt'l complaints, except as documented Genitourinary Genitourinary: Reports systems reviewed and no addt'l complaints, except as documented Musculoskeletal Musculoskeletal: Reports systems reviewed and no addt'l complaints, except as documented Integumentary Integumentary: Reports systems reviewed and no addt'l complaints, except as documented Neurologic Neurologic: Reports systems reviewed and no addt'l complaints, except as documented Psychiatric Psychiatric: Reports systems reviewed and no addt'l complaints, except as documented Endocrine Endocrinology: Reports systems reviewed and no addt'l complaints, except as documented Hematologic/Lymphatic Hematologic/Lymphatic: Reports systems reviewed and no addt'l complaints, except as documented Allergic/Immunologic Allergic/Immunologic: Reports systems reviewed and no addt'l complaints, except as documented Vital Signs Vital Signs Vital Signs: 12/18/20 13:14 Temperature 97.0 F L Temperature Source Temporal Pulse Rate 77 Blood Pressure 125/84 H Blood Pressure Mean 97 Blood Pressure Source Monitor Blood Pressure Position Semi-Fowlers Blood Pressure Location Right Arm Weight Body Mass Index (BMI) 36.8 Physical Exam Const alert, oriented x3, no apparent distress and well nourished General Appearance: cooperative and ill appearing Positive for chronically Exam Limitations: no limitations HEENT normocephalic Head and Scalp: normal to inspection Mouth: oral and palatal mucosa normal Eyes General Eye: normal appearance of both eyes Resp normal respiratory effort, normal air movement and no use of accessory muscles Effort and Inspection: able to speak in complete sentences Auscultation: clear to auscultation bilaterally Cardio regular rate, regular rhythm, S1 normal heart sound, S2 normal heart sound, no murmurs and peripheral pulses 2+ throughout Palpation: normal PMI Rate: regular rate Heart Sounds: S1 normal and S2 normal GI normal to inspection, nondistended, normoactive bowel sounds, soft to palpation, non-tender and non-distended Palpation: soft Extremity normal to inspection and full ROM General Extremity: normal exam except as noted Skin Wound Narrative: Stage I pressure injury noted to left buttock, nonblanchable erythema noted, no open wound at this time Neuro oriented x3 and moves all extremities Sensorium / Orientation: awake, alert, oriented to person, oriented to place and oriented to time Psych mental status grossly normal, thought process normal and denies hallucinations Appearance: grossly normal Attitude: calm Activity / Motor Behavior: appropriate eye contact Speech: normal speech Thought Process: normal thought process Thought Content: normal thought content Attention / Concentration: attention grossly intact Insight: insight good Judgement: judgement good Debridement Note Debridement Note Post-Debridement Measurements and Additional Note: Post-Debridement Measurements/Treatment - Nurse 1 - General Ulcer Assessment Start: 12/18/20 13:08 Freq: Status: Active Protocol: ONUR Activity Type Activity Date Activity User E-Sign Co-Sign Detail Recorded Client Recorded Date Recorded By Document 12/18/20 13:14 ASHA [id number] 12/18/20 13:23 ASHA 12/18/20 13:14 - Today's Visit Information Type of service Initial Visit Arrival Mode Ambulatory Patient Identification Verified (Name & Yes ) Height and Weight Body Mass Index (BMI) 36.8 BMI Classification Obese Vital Signs Temperature (97.8 F-99.1 F) 97.0 F L Temperature Source Temporal Pulse Rate (60-100) 77 Pulse Location Monitor Blood Pressure (90/60-120/80) 125/84 H Blood Pressure Mean 97 Source Monitor Position Semi-Fowlers Blood Pressure Location Right Arm History Since Last Visit- (Skip if this is Patient's initial visit) Have you changed medications since your No last visit? Any new allergies or adverse reactions No Had a fall/change in ADL's that may No increase risk of falls Signs or symptoms of abuse and/or No neglect since last visit Have you been in the hospital since your No last visit? Has dressing in place as prescribed No Has compression in place as prescribed N/A Has offloadiing in place as prescribed N/A Experienced any changes in pain level or No management Left Footwear Regular Shoe Right Footwear Regular Shoe Pain Scale: 0-10 Numeric Is Patient Pain Free? Yes - Nurse 1 - General Ulcer Measurement Start: 12/18/20 13:08 Freq: Status: Active Protocol: Activity Type Activity Date Activity User E-Sign Co-Sign Detail Recorded Client Recorded Date Recorded By Document 12/18/20 13:14 ASHA [id number] 12/18/20 13:23 ASHA 12/18/20 13:14 Wound Center Nurse 1 #1 Left Buttock -Current Size (cm) - Length 0.1 -Current Size (cm) - Width 0.1 -Current Size (cm) - Depth 0.1 -Total Square Cm 0.01 -Exudate Amt None Present -Wound Margin Distinct, Outline Attached -Granulation Amt None Present (0 %) -Slough/Fibrin No -Texture (Alisson-wound Skin Appearance) Assessed, Scarring -Moisture (Alisson-wound Skin Appearance) Assessed,Dry/ Scaly -Color (Alisson-wound Skin Appearance) Assessed, Ecchymosis -Temperature (Alisson-wound Skin No Abnormality Appearance) (Pt Warm) -Tenderness on Palpation (Alisson-wound No Skin Appearance) -Ulcer Cleansing Rinsed/ Irrigated with Saline -Foul Odor after Cleansing No -Anesthetic Used 5% Lidocaine Gel WC - Nurse 3 - General Ulcer D/C NN Start: 12/18/20 13:08 Freq: Status: Active Protocol: Activity Type Activity Date Activity User E-Sign Co-Sign Detail Recorded Client Recorded Date Recorded By Document 12/18/20 13:51 ASHA [id number] 12/18/20 13:52 ASHA 12/18/20 13:51 Wound Care Nurse 3 -Primary Dressing Applied NonAdherent Contact Layer -Other Dressing abd -Primary Dressing Covered/Secured with Secured with Tape Pain Scale: 0-10 Numeric Is Patient Pain Free? Yes WC - Visit Discharge Discharge Condition Stable Ambulatory Status Ambulatory Transportation Private Auto Accompanied by son Charges/Coding Visit Charges Office Visits / Consults: [id number] OV L4 Est Assessment/Plan Assessment/Plan (1) Pressure injury of left buttock, stage 1: CODE(S): L89.321 - Pressure ulcer of left buttock, stage 1 (2) Stenosis, spinal, lumbar: CODE(S): M48.061 - Spinal stenosis, lumbar region without neurogenic cla udication QUALIFIERS: Neurogenic claudication status: without neurogenic claudication Qualified Code(s): M48.061 - Spinal stenosis, lumbar region without neurogenic claudication (3) Hx of CABG: CODE(S): Z95.1 - Presence of aortocoronary bypass graft (4) History of bilateral knee replacement: CODE(S): Z96.653 - Presence of artificial knee joint, bilateral (5) Debility: CODE(S): R53.81 - Other malaise PLAN: No debridement indicated today. At home wound-care instructions: Application of Adaptic cover with gauze, Change dressing once daily or more frequently as needed due to contamination. Wash wounds daily with antibacterial soap and water, rinse and dry thoroughly before each dressing change. Compression: No compression indicated Off-loading: The patient was instructed to avoid pressure and friction on the affected areas. Reposition every 2 hours at minimum. Avoid prolonged standing and/or dangling of legs. When seated, feet should be elevated at chest level. Frequent ambulation is encouraged. Encourage the use of a pressure relieving cushion. Diet: Patient encouraged to increase protein intake while taking caution to avoid high carbohydrate and/or sugar intake. Follow-up: Return to clinic in 2 week for re-evaluation. Return sooner or report to the emergency room should symptoms worsen, or new symptoms arise. This note was generated with [employer] dictation software. It may contain incorrect words, spelling, and punctuation that were not noted in checking the note before signing. I have spent 35 minutes today reviewing labs, records, and history. Time includes coordinating care, interpretation of tests, and counseling the patient/family. This also includes time I spent with the patient for exam, treatment plan, and education as well as documenting clinical information in the electronic health record.
== END 2020-12-24 23:59 ==
LOC: WC 12:48
PROVIDERS: PCP Family Medicine Geriatric Medicine; Visit Provider Nurse Practitioner Family
DX: L89.321 Pressure ulcer of left buttock, stage 1 (principal); I25.708 Atherosclerosis of coronary artery bypass graft(s), unspecified, with other forms of angina pectoris; I25.111 Atherosclerotic heart disease of native coronary artery with angina pectoris with documented spasm; I48.91 Unspecified atrial fibrillation; I10 Essential (primary) hypertension; I48.92 Unspecified atrial flutter; H81.10 Benign paroxysmal vertigo, unspecified ear; I73.9 Peripheral vascular disease, unspecified; I35.2 Nonrheumatic aortic (valve) stenosis with insufficiency; E78.00 Pure hypercholesterolemia, unspecified; M48.061 Spinal stenosis, lumbar region without neurogenic claudication; N40.0 Benign prostatic hyperplasia without lower urinary tract symptoms; K21.9 Gastro-esophageal reflux disease without esophagitis; E66.9 Obesity, unspecified; Z68.36 Body mass index [BMI] 36.0-36.9, adult; Z79.01 Long term (current) use of anticoagulants; Z79.82 Long term (current) use of aspirin; Z79.899 Other long term (current) drug therapy; Z96.653 Presence of artificial knee joint, bilateral; Z95.1 Presence of aortocoronary bypass graft
CPT/HCPCS: 99213; G0463

== ENCOUNTER 2021-01-01 13:30 | Outpatient (RCR) | payer MEDICARE, OTHER, SELFPAY ==
[2020-12-25 00:34] VITALS: BP 125/84; PULSE 77; TEMP 36.1
[2021-01-01 13:37] VITALS: BP 160/81; PULSE 65; RESP 16; TEMP 36.3; BMI 36.8
--- NOTE | 2021-01-01 18:03 | PCM.WC.PN ---
History of Present Illness Date of Service: 01/01/21 Chief Complaint: Pressure injury left buttock History of Wound: This is an 84-year-old white male who presents to the wound healing center today with complaint of a pressure ulcer to his left buttock. He has a past medical history as listed above significant for a fib on Coumadin, CAD, hypertension, GERD and BPH. The patient presents with his son today who states that he has had issues with this ulcer for the last 7 months. States that it opens up and closes. He was instructed to use DuoDERM by his primary care but has not been doing so. Currently he spends most of his time in a reclining chair and uses a cane and walker to assist with his mobility. He does not do any offloading at this time. He denies any other wound treatment. He denies any other acute concerns. Past medical, family, and social history reviewed and not pertinent to the current visit and all other systems reviewed and negative with exception of those listed above. Progress of Wound: there are no open wounds at this visit, patient did not hear from [employer] about getting any wound supplies for offloading or a chair cushion. On exam the patient does have some fluctuance noted on his left buttock that seems consistent with a cyst. Recommended following up with general surgery or [facility] to consider incision and drainage. Patient does admit to have reccurent cysts in this area prior. Objective Data Objective Data Vital Signs: Vital Signs Temp Pulse Resp BP 97.3 F L 65 16 160/81 H 01/01/21 13:37 01/01/21 13:37 01/01/21 13:37 01/01/21 13:37 Body Mass Index (BMI) 36.8 Charges/Coding Visit Charges Office Visits / Consults: 51590 OV L3 Est Physical Exam Const alert, oriented x3, no apparent distress and well nourished General Appearance: cooperative and ill appearing Positive for chronically Exam Limitations: no limitations HEENT normocephalic Head and Scalp: normal to inspection Mouth: oral and palatal mucosa normal Eyes General Eye: normal appearance of both eyes Resp normal respiratory effort, normal air movement and no use of accessory muscles Effort and Inspection: able to speak in complete sentences Auscultation: clear to auscultation bilaterally Cardio regular rate, regular rhythm, S1 normal heart sound, S2 normal heart sound, no murmurs and peripheral pulses 2+ throughout Palpation: normal PMI Rate: regular rate Heart Sounds: S1 normal and S2 normal GI normal to inspection, nondistended, normoactive bowel sounds, soft to palpation, non-tender and non-distended Palpation: soft Extremity normal to inspection and full ROM General Extremity: normal exam except as noted Skin Wound Narrative: Stage I pressure injury noted to left buttock, nonblanchable erythema noted, no open wound at this time, there is fluctuance noted without any signs of infection at this time, probable sebaceous cyst Neuro oriented x3 and moves all extremities Sensorium / Orientation: awake, alert, oriented to person, oriented to place and oriented to time Psych mental status grossly normal, thought process normal and denies hallucinations Appearance: grossly normal Attitude: calm Activity / Motor Behavior: appropriate eye contact Speech: normal speech Thought Process: normal thought process Thought Content: normal thought content Attention / Concentration: attention grossly intact Insight: insight good Judgement: judgement good Assessment/Plan Assessment/Plan (1) Pressure injury of left buttock, stage 1: CODE(S): L89.321 - Pressure ulcer of left buttock, stage 1 (2) Stenosis, spinal, lumbar: CODE(S): M48.061 - Spinal stenosis, lumbar region without neurogenic claudication QUALIFIERS: Neurogenic claudication status: without neurogenic claudication Qualified Code(s): M48.061 - Spinal stenosis, lumbar region without neurogenic claudication (3) Hx of CABG: CODE(S): Z95.1 - Presence of aortocoronary bypass graft (4) History of bilateral knee replacement: CODE(S): Z96.653 - Presence of artificial knee joint, bilateral (5) Debility: CODE(S): R53.81 - Other malaise PLAN: No debridement indicated today. Discussed following up with general surgery or dermatology for management of left buttock cyst to consider I and D, patient and son wish to be referred to [facility] wound-care instructions: Application of ABD for offloading, Change dressing once daily or more frequently as needed due to contamination. Compression: No compression indicated Off-loading: The patient was instructed to avoid pressure and friction on the affected areas. Reposition every 2 hours at minimum. Avoid prolonged standing and/or dangling of legs. When seated, feet should be elevated at chest level. Frequent ambulation is encouraged. Encourage the use of a pressure relieving cushion. Diet: Patient encouraged to increase protein intake while taking caution to avoid high carbohydrate and/or sugar intake. Follow-up: As there is no open wound and no need for debridement, he will be discharged today. Return sooner or report to the emergency room should symptoms worsen, or new symptoms arise. This note was generated with [employer] dictation software. It may contain incorrect words, spelling, and punctuation that were not noted in checking the note before signing. I have spent 35 minutes today reviewing labs, records, and history. Time includes coordinating care, interpretation of tests, and counseling the patient/family. This also includes time I spent with the patient for exam, treatment plan, and education as well as documenting clinical information in the electronic health record.
== END 2021-01-01 14:39 | disposition home or self-care (01) ==
LOC: WC 13:30
PROVIDERS: PCP Family Medicine Geriatric Medicine; Visit Provider Nurse Practitioner Family
DX: L89.321 Pressure ulcer of left buttock, stage 1 (principal); I48.91 Unspecified atrial fibrillation; I25.10 Atherosclerotic heart disease of native coronary artery without angina pectoris; M48.061 Spinal stenosis, lumbar region without neurogenic claudication; I10 Essential (primary) hypertension; N40.0 Benign prostatic hyperplasia without lower urinary tract symptoms; K21.9 Gastro-esophageal reflux disease without esophagitis; Z79.01 Long term (current) use of anticoagulants; Z79.82 Long term (current) use of aspirin; Z79.899 Other long term (current) drug therapy; Z95.1 Presence of aortocoronary bypass graft; Z96.653 Presence of artificial knee joint, bilateral
CPT/HCPCS: 99213; G0463

== ENCOUNTER → 2021-01-27 09:15 | Outpatient (CLI) | payer MEDICARE, OTHER, SELFPAY ==
[2021-01-01 13:37] VITALS: BMI 36.8
[2021-01-27 14:31] LABS: Absolute Lymphocyte Count 0.51 X10^3/uL (0.83-4.51); Absolute Neutrophil Count 3.5 X10^3/uL (2.0-7.7); Basophil# 0.01 X10^3/uL; Basophil% 0.2 % (0-1); Eosinophil# 0.16 X10^3/uL; Eosinophils% 3.2 % (0-5); Hematocrit 40.8 % (40-54); Hemoglobin 13.6 g/dL (13.0-16.5); Lymphocyte # 0.51 X10^3/ul (0.83-4.51); Lymphocyte % 10.3 % (19-41); Mean Corp Hgb Conc 33.3 g/dL (32-36); Mean Corpuscular Hgb 36.3 pg (27.0-32.0); Mean Corpuscular Volume 108.8 fL (80-94); Mean Platelet Vol. 12.2 fl (6.2-12.0); Monocyte# 0.79 X10^3/uL; Monocyte% 15.9 % (0-10); NRBC Flagged by Analyzer 0 % (0-5); Neutrophil # 3.47 X10^3/uL (2.7-7.7); POSITIVE DIFFERENTIAL YES; Platelet Count 160 K/mm3 (150-450); RBC Distribution Width CV 14.3 % (11.6-14.6); RBC Distribution Width SD 57.4 fl (35.1-43.9); Red Blood Count 3.75 M/mm3 (4.6-6.2)
[2021-01-27 14:32] LABS: Differential Indicated SCAN CRITERIA MET
[2021-01-27 14:52] LABS: Vitamin D,25 Hydroxy 27.9 ng/mL
[2021-01-27 15:04] LABS: ALB/GLOB Ratio 1.2 RATIO (0.9-2.4); AST(SGOT) 23 U/L (15-37); Alanine Aminotransfer ALT/SGPT 29 U/L (16-61); Albumin, Serum 3.7 g/dL (3.2-5.0); Alkaline Phosphatase 75 U/L (45-117); Anion Gap 5 (5-15); BUN 12 mg/dL (7-18); BUN/Creat Ratio 9.6 RATIO (10-20); Calcium,Total 8.9 mg/dL (8.5-10.1); Chloride 108 mmol/L (98-107); Creatinine, Serum 1.25 mg/dL (0.70-1.30); EST Glomerular Filtration Rate 59 mL/min (>60); Est Glom Filt Rate - Afr Amer 71 mL/min (>60); Globulin 3.2 g/dL (2.2-4.2); Glucose 104 mg/dL (74-106); Potassium 4.1 mmol/L (3.5-5.1); Protein, Total 6.9 g/dL (6.4-8.2); Sodium Level 140 mmol/L (136-145)
== END ==
PROVIDERS: PCP Family Medicine Geriatric Medicine; Visit Provider Family Medicine Geriatric Medicine
DX: E55.9 Vitamin D deficiency, unspecified (principal); I10 Essential (primary) hypertension
CPT/HCPCS: 36415; 80053; 82306; 84443; 85025

== ENCOUNTER 2021-08-06 14:24 | Outpatient (CLI) | payer MEDICARE, OTHER, SELFPAY ==
[2021-08-06 17:11] LABS: Absolute Neutrophil Count 2.6 X10^3/uL (2.0-7.7); Basophil# 0.02 X10^3/uL; Basophil% 0.5 % (0-1); Eosinophil# 0.21 X10^3/uL; Eosinophils% 4.9 % (0-5); Hematocrit 38.2 % (40-54); Hemoglobin 12.6 g/dL (13.0-16.5); Lymphocyte % 13.9 % (19-41); Mean Corpuscular Hgb 36.3 pg (27.0-32.0); Mean Corpuscular Volume 110.1 fL (80-94); Mean Platelet Vol. 12.4 fl (6.2-12.0); Monocyte# 0.88 X10^3/uL; Monocyte% 20.4 % (0-10); NRBC Flagged by Analyzer 0 % (0-5); Neutrophil % 60.1 % (47-70); POSITIVE DIFFERENTIAL YES; Platelet Count 140 K/mm3 (150-450); RBC Distribution Width CV 14.6 % (11.6-14.6); RBC Distribution Width SD 59.9 fl (35.1-43.9); Red Blood Count 3.47 M/mm3 (4.6-6.2); White Blood Count 4.3 K/mm3 (4.4-11.0)
[2021-08-06 17:17] LABS: Differential Indicated SCAN CRITERIA MET
[2021-08-06 17:33] LABS: Vitamin D,25 Hydroxy 24.3 ng/mL
[2021-08-06 17:37] LABS: Albumin, Serum 3.4 g/dL (3.2-5.0); BUN 18 mg/dL (7-18); BUN/Creat Ratio 13.8 RATIO (10-20); EST Glomerular Filtration Rate 56 mL/min (>60); Est Glom Filt Rate - Afr Amer 68 mL/min (>60); Glucose 109 mg/dL (74-106); Protein, Total 6.8 g/dL (6.4-8.2)
[2021-08-06 17:38] LABS: AST(SGOT) 22 U/L (15-37); Alanine Aminotransfer ALT/SGPT 27 U/L (16-61); Alkaline Phosphatase 73 U/L (45-117); Anion Gap 5 (5-15); Calcium,Total 8.9 mg/dL (8.5-10.1); Chloride 107 mmol/L (98-107); Globulin 3.4 g/dL (2.2-4.2); Potassium 4.6 mmol/L (3.5-5.1); Sodium Level 140 mmol/L (136-145)
[2021-08-06 18:08] LABS: Differential Comment SCANNED
[2021-08-10 09:36] LABS: Pathologist Review Reviewed
== END 2021-08-06 23:59 | disposition home or self-care (01) ==
LOC: POLAB3 14:26
PROVIDERS: PCP Family Medicine Geriatric Medicine; Visit Provider Family Medicine Geriatric Medicine
DX: I10 Essential (primary) hypertension (principal); E55.9 Vitamin D deficiency, unspecified
CPT/HCPCS: 36415; 80053; 82306; 84443; 85025

== ENCOUNTER 2021-08-28 12:30 | Outpatient (CLI) | payer MEDICARE, OTHER, SELFPAY ==
--- NOTE | 2021-08-29 05:44 | PFTCOMP_ITS ---
COMPLETE PULMONARY FUNCTION TEST INTERPRETATION Brief HPI: Patient is an 85 year old male, currently under the care of Dr. Pan, who presents to [facility] for complete pulmonary function tests secondary to diagnosis of dyspnea. Respiratory therapist reports good effort and reproducible results. Interpretation: Forced expiration spirometry shows no large airways obstructive ventilatory defect with an FEV1 of 94% predicted. There is no significant bronchodilator response by strict ATS criteria. Spirograms are of good quality and plateau normally. The respiratory flow volume loop shows a normal pattern. Lung volumes by body plethysmography show a decreased total lung capacity at 4. 67 L, 74% predicted. All other lung volumes are reduced symmetrically. Diffusion capacity by carbon monoxide is normal at 79% predicted. The airway resistance is slightly elevated. Compared to previous pulmonary function tests from 02/16/2019, there has been a significant reduction in total lung capacity. Impression: Mild restrictive ventilatory defect with symmetric reduction diffusing capacity. There has been some worsening in lung volumes compared to 2019.
== END 2021-08-28 23:59 | disposition home or self-care (01) ==
LOC: PSN 12:32
PROVIDERS: PCP Family Medicine Geriatric Medicine; Referring Provider Family Medicine Geriatric Medicine; Visit Provider Family Medicine Geriatric Medicine
DX: R06.02 Shortness of breath (principal)
CPT/HCPCS: 94060; 94726; 94729

== ENCOUNTER 2021-10-25 15:33 | Emergency (ER) | payer MEDICARE, OTHER, SELFPAY ==
[2021-10-25 15:34] VITALS: BP 171/110; PULSE 80; RESP 15; TEMP 36.7; O2SAT 96; BMI 34.8
--- NOTE | 2021-10-25 15:54 | CT_ITS ---
EXAM: CT ABDOMEN AND PELVIS WITH INTRAVENOUS CONTRAST CLINICAL INDICATION: upper abd pain, n/v TECHNIQUE: Helically acquired images were obtained of the abdomen and pelvis with intravenous contrast. This CT exam was performed using one or more of the following dose reduction techniques: automated exposure control, adjustment of the mA and/or kV according to patient size, and/or use of iterative reconstruction technique. This report was created using [employer] report generation technology. CONTRAST: IV 100mL Isovue-370 COMPARISON: 03/26/2020 FINDINGS: LOWER THORAX: Unremarkable. Lung bases are clear. No cardiomegaly. No significant pericardial effusion. ABDOMEN: LIVER: Unremarkable. Homogeneous. No focal mass. GALLBLADDER AND BILE DUCTS: Unremarkable. No calcified gallstones. No gallbladder distention or wall edema. No intra- or extrahepatic biliary ductal dilation. PANCREAS: Unremarkable. No focal cystic or solid mass. SPLEEN: Unremarkable. Normal size without focal cystic or solid mass. ADRENALS: Unremarkable. No nodules. KIDNEYS AND URETERS: There is a low-density mass in the left kidney compatible with a cyst. No follow-up imaging is necessary. No hydronephrosis. STOMACH AND BOWEL: There are fluid-filled loops of small bowel which may represent mild enteritis. There is no obstruction or free air. There is sigmoid diverticulosis with no evidence of diverticulitis. PELVIS: APPENDIX: No evidence of acute appendicitis. BLADDER: Unremarkable. REPRODUCTIVE: Unremarkable as visualized. No mass. ABDOMEN and PELVIS: INTRAPERITONEAL SPACE: See above. BONES/JOINTS: Unremarkable. No suspicious lytic or blastic abnormality. SOFT TISSUES: Unremarkable. No discrete abdominal or pelvic wall hernia. VASCULATURE: Unremarkable. Abdominal aorta is non-dilated. LYMPH NODES: Unremarkable. No enlarged lymph nodes. CT/Abdomen/Pelvis W IV Cont ONLY IMPRESSION: Fluid-filled loops of small bowel which may represent enteritis. There is no obstruction or free air. No other acute abnormalities are identified. Electronically Signed: Jayden Park MD at 17:07 EDT ,
--- NOTE | 2021-10-25 15:55 | EKG12_ITS ---
Test Reason : Blood Pressure : / mmHG Vent. Rate : 087 BPM Atrial Rate : 087 BPM P-R Int : 192 ms QRS Dur : 118 ms QT Int : 370 ms P-R-T Axes : 059 -30 092 degrees QTc Int : 445 ms Sinus rhythm with Premature atrial complexes Left axis deviation Incomplete left bundle branch block Nonspecific ST and T wave abnormality Abnormal ECG Confirmed by ROSANNA HERNANDEZ, LATASHA ([id number]), newspaper or periodical editor SIM MARIE ([id number]) on 10/26/2021 1:23:51 PM Referred By: Confirmed By:LATASHA MARTE MD
--- NOTE | 2021-10-25 15:56 | EX.ED.DYSGE1 ---
HPI History of Present Illness Chief Complaint: Nausea/Vomiting Informant: patient Onset/Context/Timing Onset: Hours (12) Context: Sudden Onset (Woke him up at 3 AM) Timing: Continuous Quality: Sore/ache Location: Epigastrium Current Severity: Moderate Maximum Severity: Moderate Worsened by: Vomiting and coughing Relieved by: Nothing Associated Symptoms Associated Symptoms: Nonproductive cough, dry heaving, constipated Narrative Narrative: Patient woke up by pain followed by vomiting, coughing makes him feel worse but he feels like the discomfort is in his epigastrium and lower central/left chest. No back discomfort with this. Chronic dyspnea with exertion no dyspnea associated with the symptoms specifically. No fevers or chills. No hematemesis. Last bowel movement was yesterday very small and hard and was unable to go completely. He has chronic issues with constipation. He states he has had prior herniorrhaphies and appendectomy no other abdominal surgeries. [facility] Medical History Abnormal result of cardiovascular function study, unspecified Aortocoronary bypass status Atherosclerosis of coronary artery bypass graft(s), unspecified, with other forms of angina pectoris Atrial flutter Benign paroxysmal positional vertigo BPH (benign prostatic hyperplasia) CAD (coronary artery disease) Dizziness and giddiness Essential hypertension Fatigue GERD (gastroesophageal reflux disease) History of atrial fibrillation History of percutaneous transluminal coronary angioplasty Intermittent claudication Laceration of head Left carpal tunnel syndrome Left trigger finger Malignant pericardial effusion Nonrheumatic aortic (valve) insufficiency Nonrheumatic aortic (valve) stenosis Pain in left shoulder Pain in limb Palpitations Precordial chest pain Pressure injury of left buttock, stage 1 Prinzmetal angina Pure hypercholesterolemia Shortness of breath Vertigo Home Medications tamsulosin 0.4 mg PO DAILY 03/06/16 [History Last Taken 05/10/19] atorvastatin 40 mg tablet 40 mg PO QHS tab 06/26/18 [History Last Taken 05/10/19] aspirin 81 mg tablet,delayed release 81 mg PO DAILY 07/04/18 [History Last Taken 05/10/19] omeprazole 40 mg capsule,delayed release 40 mg PO DAILY 07/04/18 [History Last Taken 05/10/19] potassium chloride 20 mEq tablet,extended release 20 meq PO DAILY 01/08/19 [History Last Taken 05/10/19] nitroglycerin 0.4 mg sublingual tablet 0.4 mg SUBLINGUAL Q5M PRN #25 tab 02/19/21 [Rx Last Taken Unknown] ranolazine 1,000 mg tablet,extended release,12 hr 1,000 mg PO BID #180 tab 07/23/21 [Rx Last Taken Unknown] furosemide 40 mg tablet 40 mg PO DAILY PRN 08/18/21 [History Last Taken Unknown] multivitamin 1 tab PO DAILY 08/18/21 [History Last Taken Unknown] menthol-zinc oxide [Calmoseptine] 1 applic TOPICAL DAILY PRN #113 g 10/25/21 [Rx Last Taken Unknown] metoclopramide HCl 10 mg PO Q6H PRN #20 tab 10/25/21 [Rx Last Taken Unknown] Allergy/AdvReac Type Severity Reaction Status Date / Time tramadol [From Ultram] AdvReac Other Verified 10/25/21 15:43 Family History Father CAD (coronary artery disease) CHF (congestive heart failure) Mother Heart disease Brother Diabetes Cancer Hx of CABG CAD (coronary artery disease) Sister COPD (chronic obstructive pulmonary disease) Diabetes Surgical History H/O cardiac radiofrequency ablation (~10/2006) History of arthroscopy (~07/2011) History of bilateral knee replacement History of carpal tunnel surgery History of left heart catheterization (LHC) (~09/2007) History of PTCA Hx of CABG (~05/2005) Status post total knee replacement, right Social History Smoking Status: Never smoker alcohol intake: never substance use type: does not use caffeine: No what type of physical activity do you participate in: none seatbelt use: always do you feel safe at home: Yes ROS ROS ED Constitutional Constitutional ED: Denies chills or fever(s) Eyes Eyes: Denies change in vision or diplopia ENT ENT ED: Denies rhinorrhea or sore throat Cardiovascular Cardiovascular: Reports as per HPI and chest pain; Denies palpitations Respiratory/Chest Respiratory/Chest: Reports as per HPI, cough and dyspnea on exertion; Denies dyspnea Gastrointestinal Gastrointestinal: Reports abdominal pain, constipation, nausea and vomiting; Denies diarrhea Genitourinary Genitourinary ED: Denies dysuria or hematuria Musculoskeletal Musculoskeletal: Denies back pain or neck pain Integumentary Reports other Details: Chronic buttock decubitus ulcers ; Denies abscess or rash Neurologic Neurologic: Denies headache(s), paresthesias or weakness Psychiatric Psychiatric: Denies anxiety or suicidal thoughts EXAM Physical Exam Const Vital Signs: 10/25/21 15:34 10/25/21 17:40 10/25/21 19:00 Temperature 98.1 F Temperature Source Oral Pulse Rate 80 85 87 Respiratory Rate 15 17 22 H Blood Pressure 171/110 H 119/69 113/58 L Blood Pressure Mean 130 85 76 Pulse Ox 96 93 91 Oxygen Delivery Method Room Air Room Air Room Air Positive well nourished and well developed General Appearance ED: well developed and NAD HEENT Reports moist mucous membranes normocephalic and atraumatic Eyes PERRL and EOMs intact bilaterally Neck full ROM and supple Resp normal respiratory effort Resp Narrative: Few rhonchi right base otherwise clear Effort and Inspection: able to speak in complete sentences Cardio regular rate and regular rhythm Cardio Narrative: Systolic decrescendo murmur. Rate: Negative for tachycardic GI non-distended GI Narrative: Tender right upper quadrant and epigastrium otherwise nontender. No guarding or rebound tenderness negative Izquierdo's. Auscultation: hypoactive bowel sounds Palpation: soft Rectal Exam: other Other Details: No palpable fecal impaction. Nonbloody nonmelanotic trace amount of stool. Nontender LUCA. No abscess. Small closed stage I decubitus wounds on both buttocks, no perianal involvement. Back/Spine no CVA tenderness General Back: other FROM Extremity normal to inspection General Extremety ED: Negative for edema, pulses abnormal or tenderness General Extremity: Negative for edema or pulses abnormal Neuro oriented x3, CN's II-XII intact bilaterally and no sensory deficits noted Sensorium / Orientation: awake and alert Motor Exam: strength 5/5 throughout Skin no rashes or lesions noted and no wounds MDM MDM MDM Narrative Medical decision making narrative: Patient initially treated with Zofran, IV fluids, dicyclomine. This did help the symptoms temporarily and partially but he started having more pain and nausea, the latter of which never really went away. He was then given Reglan and morphine for his symptoms. Rectal exam did not reveal obstipation. CT of the abdomen/pelvis showed nonspecific signs of enteritis. Chest x-ray and cardiac work-up unremarkable. Given his elevated bilirubin and tenderness in the epigastrium and right upper quadrant I did a bedside ultrasound but I had trouble seen his gallbladder, due to ribs and bowel gas. I had an official gallbladder performed, it shows no signs of acute cholecystitis or cholelithiasis. Patient was feeling very malaised and initially was hesitant to go home, I offered admission but after his gallbladder ultrasound resulted and he had received Reglan and morphine, he felt so much better that he declined and wanted to go home. Will prescribe him Reglan, he understands this discomfort could come back overnight, the etiology of this is unknown certainly possible this is viral in etiology but since there is nothing acute seen on CT or ultrasound, I am okay with him going home and his mild hyperbilirubinemia may be due to his mild prerenal azotemia/dehydration. He is tolerating oral fluids at this time and will be discharged with the prescription and follow-up instructions. Lab Data Attestation: I reviewed the patient's lab results. Labs: Laboratory Results - last 24 hr 10/25/21 10/25/21 10/25/21 15:50 15:50 16:20 WBC 6.1 RBC 3.90 L Hgb 14.2 Hct 42.0 MCV 107.7 H MCH 36.4 H MCHC 33.8 RDW Std Deviation 59.0 H RDW Coeff of Brigitte 14.7 H Plt Count 131 L MPV 12.3 H Immature Gran % (Auto) 0.200 Neut % (Auto) 92.1 H Lymph % (Auto) 0.7 L [place] % (Auto) 6.0 Eos % (Auto) 1.0 Baso % (Auto) 0.0 Absolute Neuts (auto) 5.7 Absolute Lymphs (auto) 0.04 L Nucleated RBC % 0 Differential Comment SCANNED Sodium 139 Potassium 4.4 Chloride 106 Carbon Dioxide 27.0 Anion Gap 6 BUN 22 H Creatinine 1.21 Estim Creat Clear Calc 49.27 Est GFR (MDRD) Af Amer 74 Est GFR (MDRD) Non-Af 61 BUN/Creatinine Ratio 18.2 Glucose 148 H Calcium 8.7 Total Bilirubin 1.20 H AST 27 ALT 26 Alkaline Phosphatase 69 Troponin I High Sens 4 Total Protein 7.0 Albumin 3.5 Globulin 3.5 Albumin/Globulin Ratio 1.0 Lipase 267 Urine Color Yellow Urine Clarity Clear Urine pH 6.0 Ur Specific [place] 1.015 Urine Protein 15 H Urine Glucose (UA) Normal Urine Ketones Negative Urine Occult Blood 10 H Urine Nitrite Negative Urine Bilirubin 1 H Urine Urobilinogen Normal Ur Leukocyte Esterase 25 H Urine RBC 0 SEEN Urine WBC 0-5 SEEN Ur Squamous Epith Cells 0 SEEN Urine Bacteria 0 SEEN Urine Mucus 0 SEEN Radiography Chest X-Ray - ED: 2 View, Read by ED Physician and No Acute Disease Diagnostic Testing: Clinical Impression(s) from Imaging Studies Abdomen/Pelvis CT 10/25/21 15:54 IMPRESSION: Fluid-filled loops of small bowel which may represent enteritis. There is no obstruction or free air. No other acute abnormalities are identified. Electronically Signed: Jayden Park MD at 17:07 EDT , Chest X-Ray 10/25/21 16:50 IMPRESSION: No radiographic evidence of acute cardiopulmonary disease. Electronically Signed: Jayden Park MD at 17:26 EDT , Gallbladder Ultrasound 10/25/21 17:44 IMPRESSION: No acute findings in the right upper quadrant. Electronically Signed: Jayden Park MD at 19:21 EDT , EKG Initial EKG: Attestation: I personally reviewed and interpreted this EKG as follows: Interpretation: Sinus Rhythm, No Acute Injury Pattern and LAFB Prior EKG tracings: available for review Prior: Unchanged Discharge Plan Triage Chief Complaint: Nausea/Vomiting ED Provider: Kun Wong Dx/Rx/DC Orders Clinical Impression: Acute gastritis without bleeding, Acute epigastric pain, Dehydration, mild, Pressure injury of left buttock, stage 1 Instructions: ED Gastritis (Adult) Prescriptions: New metoclopramide HCl [metoclopramide HCl] 10 MG tablet 10 mg PO Q6H PRN (Reason: nausea and vomiting) Qty: 20 RF: 0 menthol-zinc oxide [Calmoseptine] 0.44-20.6 % ointment 1 applic topical DAILY PRN (Reason: wound healing) Qty: 113 RF: 0 No Action aspirin [Aspirin Low Dose] 81 mg tablet,delayed release (DR/EC) 81 mg PO DAILY RF: 0 omeprazole 40 mg capsule,delayed release(DR/EC) 40 mg PO DAILY RF: 0 potassium chloride 20 mEq tablet extended release 20 meq PO DAILY RF: 0 nitroglycerin 0.4 mg tablet, sublingual 0.4 mg SUBLINGUAL Q5M PRN (Reason: Chest Pain) Qty: 25 RF: 3 furosemide [Lasix] 40 mg tablet 40 mg PO DAILY PRN (Reason: Edema) RF: 0 multivitamin Tablet 1 tab PO DAILY RF: 0 tamsulosin 0.4 MG capsule 0.4 mg PO DAILY RF: 0 atorvastatin 40 mg tablet 40 mg PO QHS RF: 0 ranolazine 1,000 mg tablet extended release 12 hr 1,000 mg PO BID Qty: 180 RF: 3 [facility] Care Provider: [facility] Referrals: [facility], MD [Primary Care Provider] - 1-2 Days if not improving Disposition Disposition: Home, Self Care
[2021-10-25] MEDS: Ondansetron 4 MG/2 ML Vial IV (16:06)
[2021-10-25] MEDS: 0.9% Normal Saline 1,000 ML 125 ML IV (16:06)
[2021-10-25 16:08] LABS: Absolute Lymphocyte Count 0.04 X10^3/uL (0.83-4.51); Absolute Neutrophil Count 5.7 X10^3/uL (2.0-7.7); Eosinophil# 0.06 X10^3/uL; Hemoglobin 14.2 g/dL (13.0-16.5); Lymphocyte # 0.04 X10^3/ul (0.83-4.51); Lymphocyte % 0.7 % (19-41); Mean Corp Hgb Conc 33.8 g/dL (32-36); Mean Corpuscular Hgb 36.4 pg (27.0-32.0); Mean Corpuscular Volume 107.7 fL (80-94); Mean Platelet Vol. 12.3 fl (6.2-12.0); Monocyte# 0.37 X10^3/uL; NRBC Flagged by Analyzer 0 % (0-5); Neutrophil # 5.66 X10^3/uL (2.7-7.7); Neutrophil % 92.1 % (47-70); POSITIVE DIFFERENTIAL YES; Platelet Count 131 K/mm3 (150-450); RBC Distribution Width CV 14.7 % (11.6-14.6); White Blood Count 6.1 K/mm3 (4.4-11.0)
[2021-10-25 16:15] LABS: Differential Indicated SCAN CRITERIA MET
[2021-10-25] MEDS: Dicyclomine 10 MG Capsule 20 MG PO (16:21)
[2021-10-25 16:25] LABS: Bacteria 0 SEEN /hpf (None Seen); Mucous, Urine 0 SEEN /hpf (<or=2+); Red Blood Cells-Urine 0 SEEN /hpf (0-5); Squamous Epithelial Cells - UA 0 SEEN /hpf (0-5)
[2021-10-25 16:30] LABS: AST(SGOT) 27 U/L (15-37); Alanine Aminotransfer ALT/SGPT 26 U/L (16-61); Albumin, Serum 3.5 g/dL (3.2-5.0); Alkaline Phosphatase 69 U/L (45-117); Anion Gap 6 (5-15); BUN 22 mg/dL (7-18); BUN/Creat Ratio 18.2 RATIO (10-20); Calcium,Total 8.7 mg/dL (8.5-10.1); Chloride 106 mmol/L (98-107); Creatinine, Serum 1.21 mg/dL (0.70-1.30); EST Glomerular Filtration Rate 61 mL/min (>60); Est Glom Filt Rate - Afr Amer 74 mL/min (>60); Estimated Creatinine Clearance 49.27 ml/min; Globulin 3.5 g/dL (2.2-4.2); Glucose 148 mg/dL (74-106); Lipase 267 U/L (73-393); Potassium 4.4 mmol/L (3.5-5.1); Sodium Level 139 mmol/L (136-145); Troponin-I HS 4 pg/mL (3.0-78.0)
[2021-10-25 16:31] LABS: Color, Urine Yellow (Yellow); Glucose, Dipstick Normal (Normal); Ketone-Dipstick Negative (Negative); Leukocyte Esterase-Dipstick 25 /ul (Negative); Nitrite-Dipstick Negative (Negative); Occult Blood-Urine 10 /ul (Negative); Protein-Dipstick 15 mg/dl (Negative); Specific Gravity, Urine 1.015 (1.002-1.030); Urine Clarity Clear (Clear); Urine Urobilinogen Normal (Normal)
[2021-10-25 16:33] LABS: Differential Comment SCANNED
[2021-10-25 16:45] LABS: Urine Bilirubin Dipstick 1 mg/dL (Negative)
[2021-10-25 16:48] LABS: White Blood Cells 0-5 SEEN /hpf (0-5)
--- NOTE | 2021-10-25 16:50 | RAD_ITS ---
EXAM: XR CHEST, 2 VIEWS CLINICAL INDICATION: chest pain, cough TECHNIQUE: Frontal and lateral views of the chest. This report was created using [employer] report generation technology. COMPARISON: 12/26/2019 FINDINGS: LUNGS AND PLEURAL SPACES: Unremarkable. No consolidation or edema. No pneumothorax. No effusion. HEART: Unremarkable. Cardiac silhouette not enlarged. MEDIASTINUM: Central airways and mediastinal contour are unremarkable. BONES/JOINTS: Unremarkable. SOFT TISSUES: Unremarkable. RAD/Chest PA and Lateral IMPRESSION: No radiographic evidence of acute cardiopulmonary disease. Electronically Signed: Jayden Park MD at 17:26 EDT ,
[2021-10-25 17:40] VITALS: BP 119/69; PULSE 85; RESP 17; O2SAT 93
--- NOTE | 2021-10-25 17:44 | US_ITS ---
EXAM: US ABDOMEN LIMITED, RIGHT UPPER QUADRANT CLINICAL INDICATION: pain ruq, n/v TECHNIQUE: Real-time ultrasound of the right upper quadrant with image documentation. This report was created using [employer] technology. COMPARISON: None. FINDINGS: LIVER: Liver measures 16 cm in length. There is normal echotexture. No intrahepatic biliary ductal dilation. GALLBLADDER: Gallbladder wall measures 3 mm. No shadowing gallstone. No pericholecystic fluid. Negative sonographic Izquierdo''s sign. COMMON BILE DUCT: Common bile duct measures 8 mm. The proximal common bile duct is within normal limits for the patient''s age. PANCREAS: Unremarkable as visualized. No focal abnormality is demonstrated in the pancreas. No pancreatic ductal dilatation. RIGHT KIDNEY: The right kidney measures 11.0 x 5.4 x 6.6 cm. There is no hydronephrosis. No shadowing calculus. No focal lesion or perinephric collection is demonstrated. US/Gallbladder IMPRESSION: No acute findings in the right upper quadrant. Electronically Signed: Jayden Park MD at 19:21 EDT ,
[2021-10-25] MEDS: Morphine 2 MG/ML Syringe IV (18:11)
[2021-10-25] MEDS: Metoclopramide 10 MG/2 ML Vial 5 MG IV (18:12)
[2021-10-25 19:00] VITALS: BP 113/58; PULSE 87; RESP 22; O2SAT 91
[2021-10-25 20:17] VITALS: BP 145/78; PULSE 90; RESP 18; O2SAT 94
== END 2021-10-25 20:49 | disposition home or self-care (01) ==
PROVIDERS: Emergency Provider Emergency Medicine; PCP Family Medicine Geriatric Medicine; Visit Provider Emergency Medicine
DX: K29.00 Acute gastritis without bleeding (principal); R10.13 Epigastric pain; E86.0 Dehydration; S30.91XA Unspecified superficial injury of lower back and pelvis, initial encounter; I10 Essential (primary) hypertension; I25.10 Atherosclerotic heart disease of native coronary artery without angina pectoris; E78.00 Pure hypercholesterolemia, unspecified; N40.0 Benign prostatic hyperplasia without lower urinary tract symptoms; K21.9 Gastro-esophageal reflux disease without esophagitis; Z79.82 Long term (current) use of aspirin; Z79.899 Other long term (current) drug therapy; X58.XXXA Exposure to other specified factors, initial encounter
CPT/HCPCS: 71046; 74177; 76705; 80053; 81001; 83690; 84484; 85025; 93005; 96361; 96374; 96375; 99285; J7030; Q9967; A4216; J2405

== ENCOUNTER 2021-10-27 06:26 | Observation (INO) | payer MEDICARE, OTHER, SELFPAY ==
[2021-10-27] VITALS (7 sets, daily range): BP systolic 87–131; BP diastolic 56–86; PULSE 63–114; RESP 17–23; TEMP 36.6–37.1; O2SAT 92–97; BMI 36.6; BMI 36.4
--- NOTE | 2021-10-27 06:36 | RAD_ITS ---
STUDY: X-RAY CHEST REASON FOR EXAM: Male, 85 years old. Weakness TECHNIQUE: Single AP portable view of the chest. COMPARISON: Comparison is made with prior study dated 10/25/2021. FINDINGS: EKG electrodes are seen. The lungs are clear and expanded. There is no demonstrated pleural abnormality. Sternal cerclage wires and vascular clips are present from a prior sternotomy and coronary artery bypass graft procedure (CABG). Moderate cardiomegaly. Normal mediastinum and francis. Normal visualized pulmonary arteries. There is atherosclerotic calcification of the aortic arch with tortuosity. Normal visualized thoracic spine. There is degenerative osteoarthritis of the bilateral shoulders. There is no demonstrated abnormality of the visualized soft tissue structures of the upper abdomen. RAD/Chest 1 View (Portable) IMPRESSION: Moderate cardiomegaly. No acute abnormality is seen. Electronically Signed: Mohan Wharton MD at 9:16 EDT ,
--- NOTE | 2021-10-27 06:36 | EKG12_ITS ---
Test Reason : WEAKNESS/FALL Blood Pressure : / mmHG Vent. Rate : 108 BPM Atrial Rate : 131 BPM P-R Int : 000 ms QRS Dur : 112 ms QT Int : 294 ms P-R-T Axes : 000 -51 091 degrees QTc Int : 393 ms Atrial fibrillation Left axis deviation Incomplete left bundle branch block T wave abnormality, consider lateral ischemia Abnormal ECG Confirmed by ROSANNA HERNANDEZ, LATASHA ([id number]), senior editor SIM MARIE ([id number]) on 10/28/2021 9:47:47 AM Referred By: ASHVIN Confirmed By:LATASHA MARTE MD
--- NOTE | 2021-10-27 06:38 | RAD_ITS ---
STUDY: X-RAY - LEFT KNEE REASON FOR EXAM: Male, 85 years old. Trauma TECHNIQUE: 4 view(s) of the knee. COMPARISON: None. FINDINGS: Normal visualized distal femur. Normal visualized proximal tibia and fibula. Normal proximal tibiofibular articulation. The patient is status post total knee replacement. There is good alignment. The soft tissue structures are unremarkable. RAD/Knee 4 or More Views IMPRESSION: Status post total left knee replacement. No acute abnormality is seen. Electronically Signed: Mohan Wharton MD at 9:18 EDT ,
--- NOTE | 2021-10-27 06:39 | EDS_ITS ---
HPI History of Present Illness Chief Complaint: Weakness Narrative Narrative: Patient presents with generalized weakness, he try to get out of bed this morning he could not secondary to his weakness. He fell on his left knee. No head injury or neck pain. He is denying any other injury. He was seen a few days ago for epigastric pain, he was found to have slight hyperbilirubinemia and slight azotemia but otherwise an unremarkable work-up, he has gone home and has decreased p.o. intake since then. He does feel lightheaded when he stands up. No chest pain. He has no dyspnea. [facility] Medical History Abnormal result of cardiovascular function study, unspecified Aortocoronary bypass status Atherosclerosis of coronary artery bypass graft(s), unspecified, with other forms of angina pectoris Atrial flutter Benign paroxysmal positional vertigo BPH (benign prostatic hyperplasia) CAD (coronary artery disease) Dizziness and giddiness Essential hypertension Fatigue GERD (gastroesophageal reflux disease) History of atrial fibrillation History of percutaneous transluminal coronary angioplasty Intermittent claudication Laceration of head Left carpal tunnel syndrome Left trigger finger Malignant pericardial effusion Nonrheumatic aortic (valve) insufficiency Nonrheumatic aortic (valve) stenosis Pain in left shoulder Pain in limb Palpitations Precordial chest pain Pressure injury of left buttock, stage 1 Prinzmetal angina Pure hypercholesterolemia Shortness of breath Vertigo Home Medications tamsulosin 0.4 mg PO DAILY 03/06/16 [History Last Taken 05/10/19] atorvastatin 40 mg tablet 40 mg PO QHS tab 06/26/18 [History Last Taken 05/10/19] aspirin 81 mg tablet,delayed release 81 mg PO DAILY 07/04/18 [History Last Taken 05/10/19] omeprazole 40 mg capsule,delayed release 40 mg PO DAILY 07/04/18 [History Last Taken 05/10/19] potassium chloride 20 mEq tablet,extended release 20 meq PO DAILY 07/04/18 [History Last Taken 05/10/19] nitroglycerin 0.4 mg sublingual tablet 0.4 mg SUBLINGUAL Q5M PRN #25 tab 02/19/21 [Rx Last Taken Unknown] ranolazine 1,000 mg tablet,extended release,12 hr 1,000 mg PO BID #180 tab 07/23/21 [Rx Last Taken Unknown] furosemide 40 mg tablet 40 mg PO DAILY PRN 08/18/21 [History Last Taken Unknown] multivitamin 1 tab PO DAILY 08/18/21 [History Last Taken Unknown] menthol-zinc oxide [Calmoseptine] 1 applic TOPICAL DAILY PRN #113 g 10/25/21 [Rx Last Taken Unknown] metoclopramide HCl 10 mg PO Q6H PRN #20 tab 10/25/21 [Rx Last Taken Unknown] Allergy/AdvReac Type Severity Reaction Status Date / Time tramadol [From Ultram] AdvReac Other Verified 10/27/21 06:31 Family History Father CAD (coronary artery disease) CHF (congestive heart failure) Mother Heart disease Brother Diabetes Cancer Hx of CABG CAD (coronary artery disease) Sister COPD (chronic obstructive pulmonary disease) Diabetes Surgical History H/O cardiac radiofrequency ablation (~10/2006) History of arthroscopy (~07/2011) History of bilateral knee replacement History of carpal tunnel surgery History of left heart catheterization (LHC) (~09/2007) History of PTCA Hx of CABG (~05/2005) Status post total knee replacement, right Social History Smoking Status: Never smoker alcohol intake: never substance use type: does not use caffeine: No what type of physical activity do you participate in: none seatbelt use: always do you feel safe at home: Yes ROS ROS ED ROS Narrative Past medical history: Reviewed, it is quite extensive, includes spinal stenosis, DJD, sleep apnea, atrial fibrillation, aortic valve insufficiency, hypercholes terolemia, hypertension, BPH, coronary artery disease and multiple others Medications: Reviewed Social history: Noncontributory Review of systems: All systems negative except as indicated General: No fever. No head injury. Eyes: No visual changes ENT: No upper airway congestion, normal voice Neck: No neck pain Cardiovascular: No chest pain Respiratory: No shortness of breath or cough Gastrointestinal: Epigastric pain, some nausea present. No back pain. No lower abdominal pain Genitourinary: No dysuria Musculoskeletal: Left knee pain Skin: No rash Neurological: No memory loss, confusion or any focal weakness Psych: No recent behavioral changes Hematologic: No easy bleeding or easy bruising EXAM Physical Exam Narrative Exam Narrative: Physical exam General: Well nourished, Well developed, No Acute Distress Head: Normocephalic, Atraumatic Eyes: Conjunctiva not pale ENT: Dry mucous membranes Neck: Supple, Nontender, No lymphadenopathy Cardiovascular: Irregular Respiratory: No distress, CTA bilaterally Abdomen: Soft, Nontender, Nondistended Back: Nontender, Normal Inspection. Negative for: CVA tenderness Extremities: Left knee shows some abrasions but no obvious deformity. Skin: Normal color, No rash Neurological: Alert, Normal Strength, Normal Sensation Psychological: Normal affect Const Vital Signs: 10/27/21 06:27 10/27/21 06:32 Temperature 98.1 F Temperature Source Temporal Pulse Rate 114 H Respiratory Rate 23 H Respiratory Effort Normal Respiratory Pattern Normal Blood Pressure 131/86 H Blood Pressure Mean 101 Pulse Ox 92 Oxygen Delivery Method Room Air MDM MDM MDM Narrative Medical decision making narrative: Patient is quite weak he appears dehydrated I will give him IV fluids, recheck blood work he will need admission, he may need a GI work-up. Care will be turned over to the oncoming ED physician to check the rest of the blood work and admit the patient. EKG Initial EKG: Comments: Atrial fibrillation with a rate of 108. Normal QTc interval. Left axis deviation. Left bundle branch pattern. Nonspecific T wave abnormality laterally. Interpreted by emergency doctor Discharge Plan Triage Chief Complaint: Weakness ED Provider: Juan Wilks Dx/Rx/DC Orders Clinical Impression: Weakness, Fall, Acute epigastric pain, Dehydration Prescriptions: No Action aspirin [Aspirin Low Dose] 81 mg tablet,delayed release (DR/EC) 81 mg PO DAILY RF: 0 omeprazole 40 mg capsule,delayed release(DR/EC) 40 mg PO DAILY RF: 0 potassium chloride 20 mEq tablet extended release 20 meq PO DAILY RF: 0 nitroglycerin 0.4 mg tablet, sublingual 0.4 mg SUBLINGUAL Q5M PRN (Reason: Chest Pain) Qty: 25 RF: 3 furosemide [Lasix] 40 mg tablet 40 mg PO DAILY PRN (Reason: Edema) RF: 0 multivitamin Tablet 1 tab PO DAILY RF: 0 tamsulosin 0.4 MG capsule 0.4 mg PO DAILY RF: 0 metoclopramide HCl [metoclopramide HCl] 10 MG tablet 10 mg PO Q6H PRN (Reason: nausea and vomiting) Qty: 20 RF: 0 menthol-zinc oxide [Calmoseptine] 0.44-20.6 % ointment 1 applic topical DAILY PRN (Reason: wound healing) Qty: 113 RF: 0 atorvastatin 40 mg tablet 40 mg PO QHS RF: 0 ranolazine 1,000 mg tablet extended release 12 hr 1,000 mg PO BID Qty: 180 RF: 3 Primary Care Provider: [facility] Referrals: [facility], MD [Primary Care Provider] -
--- NOTE | 2021-10-27 06:42 | ED.RN ---
patients son updated on patient care and condition at this time
[2021-10-27 06:58] LABS: Absolute Lymphocyte Count 0.22 X10^3/uL (0.83-4.51); Absolute Neutrophil Count 6.3 X10^3/uL (2.0-7.7); Eosinophil# 0.01 X10^3/uL; Eosinophils% 0.1 % (0-5); Hematocrit 36.9 % (40-54); Hemoglobin 12.8 g/dL (13.0-16.5); Lymphocyte # 0.22 X10^3/ul (0.83-4.51); Lymphocyte % 2.9 % (19-41); Mean Corp Hgb Conc 34.7 g/dL (32-36); Mean Corpuscular Hgb 36.8 pg (27.0-32.0); Mean Platelet Vol. 12.1 fl (6.2-12.0); Monocyte# 0.96 X10^3/uL; Monocyte% 12.8 % (0-10); NRBC Flagged by Analyzer 0 % (0-5); Neutrophil # 6.28 X10^3/uL (2.7-7.7); Neutrophil % 83.9 % (47-70); POSITIVE DIFFERENTIAL YES; Platelet Count 115 K/mm3 (150-450); Red Blood Count 3.48 M/mm3 (4.6-6.2); White Blood Count 7.5 K/mm3 (4.4-11.0)
[2021-10-27 06:59] LABS: Differential Indicated SCAN CRITERIA MET
[2021-10-27 07:12] LABS: Anisocytosis 1+; Macrocytosis 2+
[2021-10-27 07:16] LABS: AST(SGOT) 34 U/L (15-37); Alanine Aminotransfer ALT/SGPT 30 U/L (16-61); Albumin, Serum 3.1 g/dL (3.2-5.0); Alkaline Phosphatase 53 U/L (45-117); Anion Gap 6 (5-15); BUN 21 mg/dL (7-18); BUN/Creat Ratio 17.4 RATIO (10-20); Calcium,Total 8.4 mg/dL (8.5-10.1); Chloride 108 mmol/L (98-107); Creatinine, Serum 1.21 mg/dL (0.70-1.30); EST Glomerular Filtration Rate 61 mL/min (>60); Est Glom Filt Rate - Afr Amer 74 mL/min (>60); Estimated Creatinine Clearance 49.27 ml/min; Globulin 3.2 g/dL (2.2-4.2); Glucose 133 mg/dL (74-106); Potassium 3.7 mmol/L (3.5-5.1); Protein, Total 6.3 g/dL (6.4-8.2); Sodium Level 138 mmol/L (136-145); Troponin-I HS 41 pg/mL (3.0-78.0)
[2021-10-27 07:37] LABS: Bacteria 0 SEEN /hpf (None Seen); Mucous, Urine 0 SEEN /hpf (<or=2+); Red Blood Cells-Urine 0 SEEN /hpf (0-5); Squamous Epithelial Cells - UA 0 SEEN /hpf (0-5); White Blood Cells 0 SEEN /hpf (0-5)
[2021-10-27 07:42] LABS: Color, Urine Yellow (Yellow); Glucose, Dipstick Normal (Normal); Ketone-Dipstick 5 mg/dl (Negative); Leukocyte Esterase-Dipstick 25 /ul (Negative); Nitrite-Dipstick Negative (Negative); Occult Blood-Urine 10 /ul (Negative); Protein-Dipstick 30 mg/dl (Negative); Specific Gravity, Urine 1.025 (1.002-1.030); Urine Clarity Clear (Clear); Urine Urobilinogen 1 mg/dl (Normal)
[2021-10-27 07:45] LABS: Urine Bilirubin Dipstick 1 mg/dL (Negative)
[2021-10-27 07:51] LABS: Fine Granular Cast- Urine 0-5 SEEN /lpf (0-5)
[2021-10-27 08:00] LABS: International Normalized Ratio 1.7; Prothrombin Time (Protime)PT. 19.4 SECONDS (11.7-14.9)
--- NOTE | 2021-10-27 08:05 | HP.PCM.HOS_ITS ---
HPI - General General Date of Admission: 10/27/21 Date of Service: 10/27/21 Chief Complaint: Generalized weakness HPI Narrative ISA MILES, is a 85 M who presents generalized weakness. Patient has multiple medical comorbidities including coronary artery disease with previous CABG essential pretension paroxysmal A. fib. Patient had apparently been seen in the emergency department 2 days prior to his admission he was diagnosed with constipation discharged home on laxatives. The patient has had profuse diarrhea since being discharged from the ED. He has also experienced profound generalized weakness and apparently did experience a fall while trying to get out of bed. Per patient his legs gave up. His assessment on admission was consistent with dehydration admitted for inpatient management [facility] Medical History Abnormal result of cardiovascular function study, unspecified Aortocoronary bypass status Atherosclerosis of coronary artery bypass graft(s), unspecified, with other forms of angina pectoris Atrial flutter Benign paroxysmal positional vertigo BPH (benign prostatic hyperplasia) CAD (coronary artery disease) Dizziness and giddiness Essential hypertension Fatigue GERD (gastroesophageal reflux disease) History of atrial fibrillation History of percutaneous transluminal coronary angioplasty Intermittent claudication Laceration of head Left carpal tunnel syndrome Left trigger finger Malignant pericardial effusion Nonrheumatic aortic (valve) insufficiency Nonrheumatic aortic (valve) stenosis Pain in left shoulder Pain in limb Palpitations Precordial chest pain Pressure injury of left buttock, stage 1 Prinzmetal angina Pure hypercholesterolemia Shortness of breath Vertigo Home Medications tamsulosin 0.4 mg PO DAILY 03/06/16 [History Last Taken 05/10/19] atorvastatin 40 mg tablet 40 mg PO QHS tab 06/26/18 [History Last Taken 05/10/19] aspirin 81 mg tablet,delayed release 81 mg PO DAILY 07/04/18 [History Last Taken 05/10/19] omeprazole 40 mg capsule,delayed release 40 mg PO DAILY 07/04/18 [History Last Taken 05/10/19] potassium chloride 20 mEq tablet,extended release 20 meq PO DAILY 07/04/18 [History Last Taken 05/10/19] nitroglycerin 0.4 mg sublingual tablet 0.4 mg SUBLINGUAL Q5M PRN #25 tab 02/19/21 [Rx Last Taken Unknown] ranolazine 1,000 mg tablet,extended release,12 hr 1,000 mg PO BID #180 tab 07/23/21 [Rx Last Taken Unknown] furosemide 40 mg tablet 40 mg PO DAILY PRN 08/18/21 [History Last Taken Unknown] multivitamin 1 tab PO DAILY 08/18/21 [History Last Taken Unknown] menthol-zinc oxide [Calmoseptine] 1 applic TOPICAL DAILY PRN #113 g 10/25/21 [Rx Last Taken Unknown] metoclopramide HCl 10 mg PO Q6H PRN #20 tab 10/25/21 [Rx Last Taken Unknown] Allergy/AdvReac Type Severity Reaction Status Date / Time tramadol [From Ultram] AdvReac Other Verified 10/27/21 06:31 Family History Father CAD (coronary artery disease) CHF (congestive heart failure) Mother Heart disease Brother Diabetes Cancer Hx of CABG CAD (coronary artery disease) Sister COPD (chronic obstructive pulmonary disease) Diabetes Surgical History H/O cardiac radiofrequency ablation (~10/2006) History of arthroscopy (~07/2011) History of bilateral knee replacement History of carpal tunnel surgery History of left heart catheterization (LHC) (~09/2007) History of PTCA Hx of CABG (~05/2005) Status post total knee replacement, right Social History Smoking Status: Never smoker alcohol intake: never substance use type: does not use caffeine: No what type of physical activity do you participate in: none seatbelt use: always do you feel safe at home: Yes ROS ROS Narrative GENERAL: generalized weakness HEENT: denies headache, sinus congestion, RESPIRATORY: denies cough, sputum production, CARDIAC: denies chest pain, palpitations, orthopnea, GASTROINTESTINAL: denies abdominal pain, nausea, GENITOURINARY: denies dysuria, urgency, frequency, EXTREMITY: denies swelling MUSCULOSKELETAL: denies current joint pain or tenderness NEUROLOGIC: denies focal numbness, weakness, tingling HEMATOLOGIC: denies easy bruising and/or hemorrhage INTEGUMENT: denies rashes PSYCHIATRIC: denies suicidal or homicidal ideation Vital Signs Vital Signs Vital Signs: 10/27/21 06:27 10/27/21 06:32 Temperature 98.1 F Temperature Source Temporal Pulse Rate 114 H Respiratory Rate 23 H Respiratory Effort Normal Respiratory Pattern Normal Blood Pressure 131/86 H Blood Pressure Mean 101 Pulse Ox 92 Oxygen Delivery Method Room Air Weight Weight: 119.1 kg Body Mass Index (BMI) 36.6 Physical Exam Narrative GENERAL: Frail looking HEENT: Atraumatic; EYES; Anicteric, Normal Conjunctiva NECK; supple, normal thyroid, RESPIRATORY: Diminished to auscultation CARDIOVASCULAR: Irregular S1-S2 GI: soft, normoactive bowel sounds, : No Renal angle tenderness; EXTREMITIES: No edema, no clubbing, MUSCULOSKELETAL: no muscle wasting NEURO: Awake; no lateralizing signs. SKIN: No Rash PSYCH; Flat affect Results Lab / Micro Data Result Diagrams: 10/27/21 06:34 10/27/21 06:34 Labs: Laboratory Results - last 24 hr 10/27/21 06:34: WBC 7.5, RBC 3.48 L, Hgb 12.8 L, Hct 36.9 L, MCV 106.0 H, MCH 36.8 H, MCHC 34.7, RDW Std Deviation 59.0 H, RDW Coeff of Brigitte 15.0 H, Plt Count 115 L, MPV 12.1 H, Immature Gran % (Auto) 0.300, Neut % (Auto) 83.9 H, Lymph % (Auto) 2.9 L, Cowley % (Auto) 12.8 H, Eos % (Auto) 0.1, Baso % (Auto) 0.0, Absolute Neuts (auto) 6.3, Absolute Lymphs (auto) 0.22 L, Nucleated RBC % 0, Anisocytosis 1+, Macrocytosis 2+ 10/27/21 06:34: PT 19.4 H, INR 1.7 10/27/21 06:34: Sodium 138, Potassium 3.7, Chloride 108 H, Carbon Dioxide 24.0, Anion Gap 6, BUN 21 H, Creatinine 1.21, Estim Creat Clear Calc 49.27, Est GFR (MDRD) Af Amer 74, Est GFR (MDRD) Non-Af 61, BUN/Creatinine Ratio 17.4, Glucose 133 H, Calcium 8.4 L, Total Bilirubin 1.00, AST 34, ALT 30, Alkaline Phosphatase 53, Troponin I High Sens 41, Total Protein 6.3 L, Albumin 3.1 L, Globulin 3.2, Albumin/Globulin Ratio 1.0 10/27/21 07:30: Urine Color Yellow, Urine Clarity Clear, Urine pH 5.0, Ur Specific [place] 1.025, Urine Protein 30 H, Urine Glucose (UA) Normal, Urine Ketones 5 H, Urine Occult Blood 10 H, Urine Nitrite Negative, Urine Bilirubin 1 H, Urine Urobilinogen 1 H, Ur Leukocyte Esterase 25 H, Urine RBC 0 SEEN, Urine WBC 0 SEEN, Ur Squamous Epith Cells 0 SEEN, Urine Bacteria 0 SEEN, Fine Granular Casts 0-5 SEEN, Urine Mucus 0 SEEN Assessment & Plan Assessment/Plan (1) Fall: (2) Weakness: PLAN: Patient is an 85-year-old gentleman presenting with profound weakness following bouts of diarrhea after being treated for constipation 1. Profound generalized weakness ? Secondary to dehydration from diarrhea. Patient did receive laxative treatment for constipation this was followed by episode of profuse diarrhea. Admitted to regular nursing floor currently being treated with IV fluids also requested for PT OT eval 2. Coronary artery disease ? With previous CABG and subsequent PCI. Patient currently on statin therapy, nitrates as well as aspirin 3. Paroxysmal A. fib ? With previous history of radiofrequency ablation 4. Dyslipidemia -Patient is on statin therapy, continued at home dose 5. BPH -on tamsulosin 6. Degenerative joint disease ? With history of bilateral knee replacement 7. Class II obesity with BMI of 36.4 weight loss advised 8. DVT prophylaxis ? DC Roxana Charges/Coding Visit Charges OBSV E&M: 98018 Initial observation care L3
--- NOTE | 2021-10-27 08:08 | NURSING ---
MED SURG OBS KITTOE FAILURE TO THRIVE
--- NOTE | 2021-10-27 08:15 | NURSING ---
Benjie Calhoun called and updated regarding patient admission. Lj updated on floor and room number for patient. son requests to be notified of any changes and will be arriving from out of state tomorrow.
[2021-10-27] MEDS: 0.9% Normal Saline 1,000 ML 125 ML IV ×2 (11:01→19:23)
[2021-10-27] MEDS: Pantoprazole Sodium 40 MG Tablet PO (11:02)
[2021-10-27] MEDS: Aspirin E.C. 81 MG Tablet PO (11:02)
[2021-10-27] MEDS: Enoxaparin 40 MG/0.4 ML Syringe SC (11:02)
[2021-10-27] MEDS: Ranolazine 500 MG Tablet 1000 MG PO ×2 (11:02→19:46)
[2021-10-27] MEDS: Ondansetron 4 MG/2 ML Vial IV (11:06)
[2021-10-27] MEDS: Acetaminophen 325 MG Tablet 650 MG PO ×2 (11:50→18:14)
[2021-10-27] MEDS: Nystatin Powder 15gm Bottle 1 APPLIC TOPICAL ×2 (16:37→19:46)
[2021-10-27] MEDS: Tamsulosin HCl 0.4 MG Capsule PO (18:11)
[2021-10-27] MEDS: Menthol/Lanolin/Calamine/Znox 113 GM Tube 1 APPLIC TOPICAL (19:45)
[2021-10-27] MEDS: Atorvastatin Calcium 40 MG Tablet PO (19:46)
--- NOTE | 2021-10-27 20:00 | NURSING ---
Pt just voids and has bm in his diaper then he rings to get cleaned up. Ask pt if he is not able to call before for it happens. Concerned that he lives alone and unable to care for himself. Pt said he can try to void in urinal. Informed pt he has a area on his buttock and he he needs to be turned. Pt voiced he didnt like be turned. Expressed he needs to so buttock does not open up. Pt said his son will be home tomorrow and that he can help him.
[2021-10-28] VITALS (7 sets, daily range): BP systolic 106–133; BP diastolic 56–76; PULSE 69–85; RESP 17–24; TEMP 36.7–37.4; O2SAT 93–96
[2021-10-28] MEDS: Acetaminophen 325 MG Tablet 650 MG PO (02:05)
[2021-10-28] MEDS: 0.9% Normal Saline 1,000 ML 125 ML IV (03:35)
[2021-10-28] MEDS: Nystatin Powder 15gm Bottle 1 APPLIC TOPICAL ×2 (05:58→14:29)
[2021-10-28 06:01] LABS: Absolute Neutrophil Count 4.3 X10^3/uL (2.0-7.7); Eosinophil# 0.04 X10^3/uL; Eosinophils% 0.7 % (0-5); Hematocrit 32.5 % (40-54); Hemoglobin 10.9 g/dL (13.0-16.5); Lymphocyte % 6.9 % (19-41); Mean Corp Hgb Conc 33.5 g/dL (32-36); Mean Corpuscular Hgb 36.2 pg (27.0-32.0); Mean Platelet Vol. 12.6 fl (6.2-12.0); Monocyte# 1.07 X10^3/uL; Monocyte% 18.4 % (0-10); NRBC Flagged by Analyzer 0 % (0-5); Neutrophil # 4.29 X10^3/uL (2.7-7.7); Neutrophil % 73.5 % (47-70); POSITIVE COUNT YES; POSITIVE DIFFERENTIAL YES; POSITIVE MORPHOLOGY YES; Platelet Count 84 K/mm3 (150-450); RBC Distribution Width SD 60.1 fl (35.1-43.9); Red Blood Count 3.01 M/mm3 (4.6-6.2); White Blood Count 5.8 K/mm3 (4.4-11.0)
[2021-10-28 06:03] LABS: Differential Indicated SCAN CRITERIA MET
[2021-10-28 06:33] LABS: Anisocytosis 2+; Macrocytosis 3+
[2021-10-28 06:34] LABS: Platelet Estimate MOD DEC (ADEQ)
[2021-10-28 06:37] LABS: Anion Gap 8 (5-15); BUN 18 mg/dL (7-18); Calcium,Total 7.6 mg/dL (8.5-10.1); Chloride 109 mmol/L (98-107); Creatinine, Serum 0.94 mg/dL (0.70-1.30); EST Glomerular Filtration Rate 81 mL/min (>60); Est Glom Filt Rate - Afr Amer 98 mL/min (>60); Estimated Creatinine Clearance 61.48 ml/min; Glucose 94 mg/dL (74-106); Potassium 3.8 mmol/L (3.5-5.1); Sodium Level 139 mmol/L (136-145)
--- NOTE | 2021-10-28 07:37 | PCM.PN.HOSP ---
Subjective Subjective Patient seen much more awake and interactive compared to previous day. Patient is scheduled to be assessed by physical therapy. Discharge decision to be made after assessment by PT Objective Data Objective Data Vital Signs: Vital Signs Temp Pulse Resp BP Pulse Ox 99.4 F H 77 17 106/56 L 93 10/28/21 03:31 10/28/21 03:31 10/28/21 03:31 10/28/21 03:31 10/28/21 07:01 Oxygen Delivery Method Room Air Weight: 115.212 kg Body Mass Index (BMI) 36.4 Intake & Output: Intake and Output for Last 24 Hours 10/26/21 10/27/21 10/28/21 23:59 23:59 23:59 Intake Total 3220 / 3220 1120 / 1120 Output Total 225 / 225 500 / 500 Balance 2995 / 2995 620 / 620 Lab / Micro Data Result Diagrams: 10/28/21 05:03 10/28/21 05:03 Labs: Laboratory Results - last 24 hr 10/27/21 06:34: PT 19.4 H, INR 1.7 10/27/21 07:30: Urine Color Yellow, Urine Clarity Clear, Urine pH 5.0, Ur Specific [place] 1.025, Urine Protein 30 H, Urine Glucose (UA) Normal, Urine Ketones 5 H, Urine Occult Blood 10 H, Urine Nitrite Negative, Urine Bilirubin 1 H, Urine Urobilinogen 1 H, Ur Leukocyte Esterase 25 H, Urine RBC 0 SEEN, Urine WBC 0 SEEN, Ur Squamous Epith Cells 0 SEEN, Urine Bacteria 0 SEEN, Fine Granular Casts 0-5 SEEN, Urine Mucus 0 SEEN 10/28/21 05:03: WBC 5.8, RBC 3.01 L, Hgb 10.9 L, Hct 32.5 L, MCV 108.0 H, MCH 36.2 H, MCHC 33.5, RDW Std Deviation 60.1 H, RDW Coeff of Brigitte 15.0 H, Plt Count 84 L, MPV 12.6 H, Immature Gran % (Auto) 0.500, Neut % (Auto) 73.5 H, Lymph % (Auto) 6.9 L, [place] % (Auto) 18.4 H, Eos % (Auto) 0.7, Baso % (Auto) 0.0, Absolute Neuts (auto) 4.3, Absolute Lymphs (auto) 0.40 L, Nucleated RBC % 0, Platelet Estimate MOD DEC, Anisocytosis 2+, Macrocytosis 3+ 10/28/21 05:03: Sodium 139, Potassium 3.8, Chloride 109 H, Carbon Dioxide 22.0, Anion Gap 8, BUN 18, Creatinine 0.94, Estim Creat Clear Calc 61.48, Est GFR (MDRD) Af Amer 98, Est GFR (MDRD) Non-Af 81, BUN/Creatinine Ratio 19.0, Glucose 94, Calcium 7.6 L, Magnesium 2.0 Radiography Diagnostic Testing: Radiology Impression Chest X-Ray 10/27/21 06:36 IMPRESSION: Moderate cardiomegaly. No acute abnormality is seen. Electronically Signed: Mohan Wharton MD at 9:16 EDT , Knee X-Ray 10/27/21 06:38 IMPRESSION: Status post total left knee replacement. No acute abnormality is seen. Electronically Signed: Mohan Wharton MD at 9:18 EDT , Physical Exam Narrative GENERAL: Frail looking HEENT: Atraumatic; EYES; Anicteric, Normal Conjunctiva NECK; supple, normal thyroid, RESPIRATORY: Diminished to auscultation CARDIOVASCULAR: Irregular S1-S2 GI: soft, normoactive bowel sounds, : No Renal angle tenderness; EXTREMITIES: No edema, no clubbing, MUSCULOSKELETAL: no muscle wasting NEURO: Awake; no lateralizing signs. SKIN: No Rash PSYCH; Flat affect Assessment & Plan Assessment/Plan (1) Fall: (2) Weakness: PLAN: Patient is an 85-year-old gentleman presenting with profound weakness following bouts of diarrhea after being treated for constipation 1. Profound generalized weakness ? Secondary to dehydration from diarrhea. Patient did receive laxative treatment for constipation this was followed by episode of profuse diarrhea. Admitted to regular nursing floor currently being treated with IV fluids also requested for PT OT eval 10/28/2021;Patient seen much more awake and interactive compared to previous day. Patient is scheduled to be assessed by physical therapy. Discharge decision to be made after assessment by PT 2. Coronary artery disease ? With previous CABG and subsequent PCI. Patient currently on statin therapy, nitrates as well as aspirin 3. Paroxysmal A. fib ? With previous history of radiofrequency ablation 4. Dyslipidemia -Patient is on statin therapy, continued at home dose 5. BPH -on tamsulosin 6. Degenerative joint disease ? With history of bilateral knee replacement 7. Class II obesity with BMI of 36.4 weight loss advised 8. DVT prophylaxis ? [place] Lovenox Charges/Coding Visit Charges OBSV E&M: 39050 Subsequent observation care L2
[2021-10-28] MEDS: Pantoprazole Sodium 40 MG Tablet PO (08:34)
[2021-10-28] MEDS: Aspirin E.C. 81 MG Tablet PO (08:34)
[2021-10-28] MEDS: Ranolazine 500 MG Tablet 1000 MG PO (08:34)
[2021-10-28] MEDS: Enoxaparin 40 MG/0.4 ML Syringe SC (08:34)
[2021-10-28] MEDS: Albuterol 2.5 MG/3 ML VIAL.NEB. INHALATION (11:24)
--- NOTE | 2021-10-28 11:34 | CASEMGMT ---
Addendum entered by Adair Wright 10/28/21 12:59: Offered to call pt's son to inform him that pt would be going to TCU today. Pt states since son just got back so late last night from [place], he didn't want RN GIA to call him now. He states staff can notify son of his transfer if son calls in. Original Note: RN CM COMMUNITY ORGANIZATION DIRECTOR CM to room to meet with patient for initial transition planning/care coordination assessment. KACI NIELSEN introduced self and role at [facility]. Pt voices understanding and consents to assessment at this time. Pt resting in bed in no distress at this time. Slight audible wheezing noted. KACI Ely, aware. Pt is A/O at this time and answers all questions appropriately. Care providers, pharmacy, and demographics verified/updated at this time. PCP: Dr Pan Specialists: Dr Jeronimo-cardio, Dr Smith-ortho Insurance: MCR, [employer] Prescription Benefit: Yes Living Will/HPOA: Has LW and HPOA, who is his son, Benjie BustosJr. LNOK: Son/Benjie SANTANA . Daughter who lives in [place], [place] Living Arrangements: Lives alone in one-story home w/ramp entrance. Was independent w/ADL's and IADL's until recently. Son lives in [place] and is supportive. Son was in [place] on a trip, but just returned home last night. Has cleaning lady come in Q 2 weeks. Transportation: Pt states drives still drives some, but not much. Son does most of the driving DME: States has the following DME: grab bars, hand-held shower, RTS, medical alert button, and nebulizer. Pt also has a cane and walker available to use, if needed. Pt has PAP from [facility], but states has not used it for a long time d/t not being able to tolerate the nose mask. He states he has tried the full face mask and several others', but has not found one he can tolerate. Pt states no need for further DME at this time. HHC/SNF: Hx [facility] TCU in 2019. No hx of HHC. Therapy has worked w/pt today and SNF is recommended. Pt aware and is agreeable. Pt was provided with list of SNF providers including quality and resource use data and consistent with the patient's preferred geographic region, medical needs, and insurance network. The pt's preferred provider is [facility]. Call placed to [facility] and made aware pt medically ready to discharge today. [facility] states they do have beds available today and they are able to accept pt. Pt will need negative COVID test done prior to discharge. KACI Ely, made aware. Dr Zendejas also made aware. Pt voices no further concerns/needs at this time. Advised pt to ask for CM if any further questions/concerns/needs arise. Voices understanding. PLAN: TCU today, pending negative COVID test. [employer] form explained re: Observation status for treatment of generalized weakness. Explained hospitalization will be paid per his insurance policy for Outpatient billing and condition will continue to be evaluated for Inpt necessity. Also let pt know that [facility] sends paper in the billing packet with their phone number if questions arise. Discussed Pharmacy section of [employer] form and self administered medication guideline. Pt verbalizes understanding and does not have further questions. Form signed, copy made and placed in chart, and original given to pt. Dick SALOMON RN CM
--- NOTE | 2021-10-28 11:53 | DS.PCM_ITS ---
Providers Date of Admission: 10/27/21 Primary Care Physician: Dr. Kaiser Pan MD Reason For Visit: GENERALIZED WEAKNESS, DEHYDRATION Diagnosis Discharge Diagnosis (1) Fall: Status: Acute Code(s): W19.XXXA - Unspecified fall, initial encounter (2) Weakness: Status: Acute Code(s): R53.1 - Weakness Medications at Discharge Home Medications tamsulosin 0.4 mg PO DAILY 03/06/16 atorvastatin 40 mg tablet 40 mg PO QHS tab 06/26/18 aspirin 81 mg tablet,delayed release 81 mg PO DAILY 07/04/18 omeprazole 40 mg capsule,delayed release 40 mg PO DAILY 07/04/18 potassium chloride 20 mEq tablet,extended release 20 meq PO DAILY 07/04/18 nitroglycerin 0.4 mg sublingual tablet 0.4 mg SUBLINGUAL Q5M PRN #25 tab 02/19/21 ranolazine 1,000 mg tablet,extended release,12 hr 1,000 mg PO BID #180 tab 07/23/21 furosemide 40 mg tablet 40 mg PO DAILY PRN 08/18/21 multivitamin 1 tab PO DAILY 08/18/21 menthol-zinc oxide [Calmoseptine] 1 applic TOPICAL DAILY PRN #113 g 10/25/21 metoclopramide HCl 10 mg PO Q6H PRN #20 tab 10/25/21 Hospital Course Operations None Procedures None Summary of Care Provided Minutes Spent on Discharge: 35 Hospital Course: Patient is an 85-year-old gentleman presenting with profound weakness following bouts of diarrhea after being treated for constipation 1. Profound generalized weakness ? Secondary to dehydration from diarrhea. Patient did receive laxative treatment for constipation this was followed by episode of profuse diarrhea. Admitted to regular nursing floor currently being treated with IV fluids also requested for PT OT eval 10/28/2021;Patient seen much more awake and interactive compared to previous day. Patient is scheduled to be assessed by physical therapy. Discharge decision to be made after assessment by PT -Patient was transferred to transitional care unit once insurance precertification was obtained 2. Coronary artery disease ? With previous CABG and subsequent PCI. Patient currently on statin therapy, nitrates as well as aspirin 3. Paroxysmal A. fib ? With previous history of radiofrequency ablation 4. Dyslipidemia -Patient is on statin therapy, continued at home dose 5. BPH -on tamsulosin 6. Degenerative joint disease ? With history of bilateral knee replacement 7. Class II obesity with BMI of 36.4 weight loss advised 8. DVT prophylaxis ? SC Lovenox Physical Exam Narrative GENERAL: Frail looking HEENT: Atraumatic; EYES; Anicteric, Normal Conjunctiva NECK; supple, normal thyroid, RESPIRATORY: Diminished to auscultation CARDIOVASCULAR: Irregular S1-S2 GI: soft, normoactive bowel sounds, : No Renal angle tenderness; EXTREMITIES: No edema, no clubbing, MUSCULOSKELETAL: no muscle wasting NEURO: Awake; no lateralizing signs. SKIN: No Rash PSYCH; Flat affect Weight / BMI Weight Weight: 115.212 kg Body Mass Index (BMI) 36.4 ABG / Lab / Microbiology Data Result Diagrams: 10/28/21 05:03 10/28/21 05:03 Laboratory: Laboratory Results - last 24 hr 10/28/21 05:03: WBC 5.8, RBC 3.01 L, Hgb 10.9 L, Hct 32.5 L, MCV 108.0 H, MCH 36.2 H, MCHC 33.5, RDW Std Deviation 60.1 H, RDW Coeff of Brigitte 15.0 H, Plt Count 84 L, MPV 12.6 H, Immature Gran % (Auto) 0.500, Neut % (Auto) 73.5 H, Lymph % (Auto) 6.9 L, Esmeralda % (Auto) 18.4 H, Eos % (Auto) 0.7, Baso % (Auto) 0.0, Absolute Neuts (auto) 4.3, Absolute Lymphs (auto) 0.40 L, Nucleated RBC % 0, Platelet Estimate MOD DEC, Anisocytosis 2+, Macrocytosis 3+ 10/28/21 05:03: Sodium 139, Potassium 3.8, Chloride 109 H, Carbon Dioxide 22.0, Anion Gap 8, BUN 18, Creatinine 0.94, Estim Creat Clear Calc 61.48, Est GFR ( MDRD) Af Amer 98, Est GFR (MDRD) Non-Af 81, BUN/Creatinine Ratio 19.0, Glucose 94, Calcium 7.6 L, Magnesium 2.0 D/C Instructions Discharge Diet: No restrictions Discharge Activity: Return to Normal Activity Call your doctor if you observe: Fever of 101 or Higher, Shortness of breath, Fainting spells and Chest pain Meaningful Use Info Meaningful Use Diagnoses (Choose all that apply): None applicable Discharge Plan Admission Admit Date/Time: 10/27/21 08:06 Attending Provider: Lele Zendejas Primary Care Provider: Kaiser Pan Chi Discharge Orders/Prescriptions Prescriptions: Continued aspirin [Aspirin Low Dose] 81 mg tablet,delayed release (DR/EC) 81 mg PO DAILY RF: 0 omeprazole 40 mg capsule,delayed release(DR/EC) 40 mg PO DAILY RF: 0 potassium chloride 20 mEq tablet extended release 20 meq PO DAILY RF: 0 nitroglycerin 0.4 mg tablet, sublingual 0.4 mg SUBLINGUAL Q5M PRN (Reason: Chest Pain) Qty: 25 RF: 3 furosemide [Lasix] 40 mg tablet 40 mg PO DAILY PRN (Reason: Edema) RF: 0 multivitamin Tablet 1 tab PO DAILY RF: 0 tamsulosin 0.4 MG capsule 0.4 mg PO DAILY RF: 0 metoclopramide HCl 10 MG tablet 10 mg PO Q6H PRN (Reason: nausea and vomiting) Qty: 20 RF: 0 menthol-zinc oxide [Calmoseptine] 0.44-20.6 % ointment 1 applic topical DAILY PRN (Reason: wound healing) Qty: 113 RF: 0 atorvastatin 40 mg tablet 40 mg PO QHS RF: 0 ranolazine 1,000 mg tablet extended release 12 hr 1,000 mg PO BID Qty: 180 RF: 3 Referrals / Follow Up: Kaiser Pan Chi, MD [Primary Care Provider] - Within 2 Weeks Disposition Disposition (needs filled in before D/C Order can be placed): Nursing Home Facility Charges/Coding Visit Charges OBSV E&M: 97621 Observation care discharge
--- NOTE | 2021-10-28 11:56 | PCM.TXEXTCAR ---
Diet 10/27/21 08:07 Diet: Regular - General Food consistency:: Regular Liquid Consistency:: Regular/Thin Wound(s) lt buttock: Wound Type: Pressure Injury lt knee: Wound Type: Abrasion rt buttock: Wound Type: Pressure Injury Therapies Occupational Therapy: Eval and Treat Speech Therapy: Eval and Treat Problem/Diagnosis (1) Fall: Status: Acute (2) Weakness: Status: Acute Allergies/Procedures Done in Hospital Allergies tramadol [From Ultram] Adverse Reaction (Verified 10/27/21 06:31) Other DIZZINESS, WEAKNESS, LIGHT HEADEDNESS Type of Care/Length of Stay Estimated LOS: Convalescent Care Less Than 30 days Type of Care Needed: Skilled Rehab Potential: Good Prognosis: Good Additional Orders/Day of Discharge Day of Discharge: 10/28/21 Discharge Plan Admission Admit Date/Time: 10/27/21 08:06 Attending Provider: Lele Zendejas Primary Care Provider: Kaiser Pan Chi Discharge Orders/Prescriptions Prescriptions: Continued aspirin [Aspirin Low Dose] 81 mg tablet,delayed release (DR/EC) 81 mg PO DAILY RF: 0 omeprazole 40 mg capsule,delayed release(DR/EC) 40 mg PO DAILY RF: 0 potassium chloride 20 mEq tablet extended release 20 meq PO DAILY RF: 0 nitroglycerin 0.4 mg tablet, sublingual 0.4 mg SUBLINGUAL Q5M PRN (Reason: Chest Pain) Qty: 25 RF: 3 furosemide [Lasix] 40 mg tablet 40 mg PO DAILY PRN (Reason: Edema) RF: 0 multivitamin Tablet 1 tab PO DAILY RF: 0 tamsulosin 0.4 MG capsule 0.4 mg PO DAILY RF: 0 metoclopramide HCl 10 MG tablet 10 mg PO Q6H PRN (Reason: nausea and vomiting) Qty: 20 RF: 0 menthol-zinc oxide [Calmoseptine] 0.44-20.6 % ointment 1 applic topical DAILY PRN (Reason: wound healing) Qty: 113 RF: 0 atorvastatin 40 mg tablet 40 mg PO QHS RF: 0 ranolazine 1,000 mg tablet extended release 12 hr 1,000 mg PO BID Qty: 180 RF: 3 Referrals / Follow Up: Kaiser Pan Chi, MD [Primary Care Provider] - Within 2 Weeks Disposition Disposition (needs filled in before D/C Order can be placed): [facility]
--- NOTE | 2021-10-28 14:29 | PHA.DC.MR ---
Pharmacy Service has performed discharge medication reconciliation for this patient. The patient's discharge medication list was reviewed for discrepancies and discrepancies were resolved. Home Medications tamsulosin 0.4 mg PO DAILY 03/06/16 atorvastatin 40 mg tablet 40 mg PO QHS tab 06/26/18 aspirin 81 mg tablet,delayed release 81 mg PO DAILY 07/04/18 omeprazole 40 mg capsule,delayed release 40 mg PO DAILY 07/04/18 potassium chloride 20 mEq tablet,extended release 20 meq PO DAILY 07/04/18 nitroglycerin 0.4 mg sublingual tablet 0.4 mg SUBLINGUAL Q5M PRN #25 tab 02/19/21 ranolazine 1,000 mg tablet,extended release,12 hr 1,000 mg PO BID #180 tab 07/23/21 furosemide 40 mg tablet 40 mg PO DAILY PRN 08/18/21 multivitamin 1 tab PO DAILY 08/18/21 menthol-zinc oxide [Calmoseptine] 1 applic TOPICAL DAILY PRN #113 g 10/25/21 metoclopramide HCl 10 mg PO Q6H PRN #20 tab 10/25/21
--- NOTE | 2021-10-28 14:40 | NURSING ---
Report called to Aide BERMEO at 1438.
== END 2021-10-28 11:56 | disposition skilled nursing facility (03) ==
LOC: ED 08:00 → PCU 08:13
PROVIDERS: Admitting Provider Internal Medicine; Emergency Provider Emergency Medicine; PCP Family Medicine Geriatric Medicine; Visit Provider Internal Medicine
DX: E86.0 Dehydration (principal); I48.0 Paroxysmal atrial fibrillation; R53.1 Weakness; I10 Essential (primary) hypertension; I25.810 Atherosclerosis of coronary artery bypass graft(s) without angina pectoris; E78.5 Hyperlipidemia, unspecified; M19.90 Unspecified osteoarthritis, unspecified site; R19.7 Diarrhea, unspecified; R10.13 Epigastric pain; E66.9 Obesity, unspecified; Z68.36 Body mass index [BMI] 36.0-36.9, adult; N40.0 Benign prostatic hyperplasia without lower urinary tract symptoms; K21.9 Gastro-esophageal reflux disease without esophagitis; Z79.899 Other long term (current) drug therapy; Z79.82 Long term (current) use of aspirin; G47.30 Sleep apnea, unspecified; Z91.81 History of falling
CPT/HCPCS: 36415; 71045; 73564; 80048; 80053; 81001; 83735; 84484; 85025; 85610; 87426; 93005; 94640; 96361; 96372; 96374; 97162; 97166; 97530; 97535; 99218; 99251; 99285; J7030; P9612; A4216; G0378; G0463; J2405

== ENCOUNTER 2021-10-28 15:28 | Inpatient (IN) | payer MEDICARE, OTHER, SELFPAY ==
[2021-10-28 15:35] VITALS: BP 120/74; PULSE 72; RESP 20; TEMP 36.2; O2SAT 93
[2021-10-28 15:47] VITALS: BMI 37.8
[2021-10-28] MEDS: Ranolazine 500 MG Tablet 1000 MG PO (17:50)
[2021-10-28] MEDS: Tamsulosin HCl 0.4 MG Capsule PO (17:50)
--- NOTE | 2021-10-28 20:41 | HP.PCM_ITS ---
HPI - General General Date of Admission: 10/28/21 HPI Narrative 10/27/2021 ISA MILES, is a 85 Male who presents to [facility] Emergency Department with weakness. 10/27/2021 EKG atrial fibrillation, left axis deviation, incomplete left bundle branch block, T wave abnormality, consider lateral ischemia. Unable to get out of bed due to weakness. Fell on left knee, decreased oral intake, lightheaded with standing. IV fluids given for dehydration. Bloodwork negative, Urinalysis negative, Chest X-ray negative, X-ray left knee negative. Incontinent of stool. Patient took Magnesium citrate for constipation, and has had loose stools ever since. 10/27/2021 Admit to Hospital. Profuse diarrhea secondary to Magnesium citrate. IV fluids for dehydration, weakness. PT/OT for debility. 10/28/2021 More awake today. 10/28/2021 Admit to TCU with debility, here for rehabilitation, strengthening, prior to discharge home alone. [facility] Medical History Abnormal result of cardiovascular function study, unspecified Aortocoronary bypass status Atherosclerosis of coronary artery bypass graft(s), unspecified, with other forms of angina pectoris Atrial flutter Benign paroxysmal positional vertigo BPH (benign prostatic hyperplasia) CAD (coronary artery disease) Dizziness and giddiness Essential hypertension Fatigue GERD (gastroesophageal reflux disease) History of atrial fibrillation History of percutaneous transluminal coronary angioplasty Intermittent claudication Laceration of head Left carpal tunnel syndrome Left trigger finger Malignant pericardial effusion Nonrheumatic aortic (valve) insufficiency Nonrheumatic aortic (valve) stenosis Pain in left shoulder Pain in limb Palpitations Precordial chest pain Pressure injury of left buttock, stage 1 Prinzmetal angina Pure hypercholesterolemia Shortness of breath Vertigo Home Medications tamsulosin 0.4 mg PO DAILY 03/06/16 [History Last Taken 05/10/19] atorvastatin 40 mg tablet 40 mg PO QHS tab 06/26/18 [History Last Taken 05/10/19] aspirin 81 mg tablet,delayed release 81 mg PO DAILY 07/04/18 [History Last Taken 05/10/19] omeprazole 40 mg capsule,delayed release 40 mg PO DAILY 07/04/18 [History Last Taken 05/10/19] potassium chloride 20 mEq tablet,extended release 20 meq PO DAILY 07/04/18 [History Last Taken 05/10/19] nitroglycerin 0.4 mg sublingual tablet 0.4 mg SUBLINGUAL Q5M PRN #25 tab 02/19/21 [Rx Last Taken Unknown] ranolazine 1,000 mg tablet,extended release,12 hr 1,000 mg PO BID #180 tab 07/23/21 [Rx Last Taken Unknown] furosemide 40 mg tablet 40 mg PO DAILY PRN 08/18/21 [History Last Taken Unknown] multivitamin 1 tab PO DAILY 08/18/21 [History Last Taken Unknown] menthol-zinc oxide [Calmoseptine] 1 applic TOPICAL DAILY PRN #113 g 10/25/21 [Rx Last Taken Unknown] metoclopramide HCl 10 mg PO Q6H PRN #20 tab 10/25/21 [Rx Last Taken Unknown] Allergy/AdvReac Type Severity Reaction Status Date / Time tramadol [From Ultram] AdvReac Other Verified 10/27/21 06:31 Family History Father CAD (coronary artery disease) CHF (congestive heart failure) Mother Heart disease Brother Diabetes Cancer Hx of CABG CAD (coronary artery disease) Sister COPD (chronic obstructive pulmonary disease) Diabetes Surgical History H/O cardiac radiofrequency ablation (~10/2006) History of arthroscopy (~07/2011) History of bilateral knee replacement History of carpal tunnel surgery History of left heart catheterization (LHC) (~09/2007) History of PTCA Hx of CABG (~05/2005) Status post total knee replacement, right Social History (Updated 10/28/21 @ 20:[address] Kaiser Pan MD) household members: none Smoking Status: Never smoker alcohol intake: never substance use type: does not use caffeine: No what type of physical activity do you participate in: none seatbelt use: always do you feel safe at home: Yes ROS Constitutional Constitutional: Denies chills, fever(s) or weight gain ENT HEENT: Denies headache(s), nasal congestion or nasal discharge Cardiovascular Cardiovascular: Denies chest pain or palpitations Respiratory/Chest Respiratory/Chest: Denies cough, excessive phlegm production or shortness of breath with exertion Gastrointestinal Gastrointestinal: Denies abdominal pain, nausea or vomiting Genitourinary Genitourinary: Denies dysuria Musculoskeletal Musculoskeletal: Denies joint pain or joint swelling Integumentary Integumentary: Denies rash or wounds Neurologic Neurologic: Denies focal weakness, numbness or tingling Psychiatric Psychiatric: Denies anxiety, auditory hallucinations, depression, homicidal ideation or suicidal ideation Vital Signs Vital Signs Vital Signs: 10/28/21 15:35 10/28/21 15:47 Temperature 97.2 F L Temperature Source Oral Pulse Rate 72 Pulse Rhythm Regular Pulse Strength Normal (2+) Respiratory Rate 20 H Respiratory Effort Normal Non-Labored Respiratory Depth Normal Respiratory Pattern Normal Blood Pressure 120/74 Blood Pressure Mean 89 Blood Pressure Source Monitor Blood Pressure Position Semi-Fowlers Blood Pressure Location Left Arm Pulse Ox 93 Oxygen Delivery Method Room Air Room Air Weight Weight: 119.748 kg Body Mass Index (BMI) 37.8 Physical Exam Const alert General Appearance: cooperative HEENT normocephalic Eyes PERRL and EOMs intact bilaterally Neck supple, no JVD and no carotid bruits Resp normal respiratory effort, normal air movement and clear to auscultation bilaterally Cardio regular rate and regular rhythm GI normal to inspection, nondistended, normoactive bowel sounds, non-tender and non-distended Extremity normal capillary refill General Extremity: Negative for edema Skin no rashes or lesions noted General Skin Exam: no breakdown Psych affect normal Appearance: appropriate Assessment & Plan Assessment/Plan (1) Debility: (2) Weakness: (3) Dehydration: (4) Diarrhea: (5) Benign prostate hyperplasia: (6) Hyperlipidemia: (7) Gastroesophageal reflux disease: (8) Hypokalemia: (9) Coronary artery disease: PLAN: 85 year old male with below past medical history hospitalized for weakness secondary to dehydration from profuse diarrhea from magnesium citrate, admitted to TCU with debility, here for rehabilitation, strengthening, prior to discharge home alone. * Debility - PT/OT. * Pain - Tylenol 1000mg q6h prn pain (1-10). * Bowel - order X-ray of abdomen. * Adult immunization - Administer pneumonia vaccine, flu vaccine, covid19 vaccine. * DVT prophylaxis - Hold, progressive anemia. * Coronary Artery Disease - Ranexa 1000mg bid, aspirin 81mg daily, NTG 0.4mg sl q5m prn. * Hyperlipidemia - Atorvastatin 40mg qhs. * Nutrition - Ensure Enlive 120ml 4x/day. * Skin irritation - Calmoseptine topical daily prn. * GERD - Pantoprazole 40mg daily. * Hypokalemia - KCL 20meq daily. * BPH - Tamsulosin 0.4mg daily.
[2021-10-28] MEDS: Atorvastatin Calcium 40 MG Tablet PO (20:48)
--- NOTE | 2021-10-28 21:00 | RAD_ITS ---
STUDY: X-RAY - ABDOMEN/PELVIS REASON FOR EXAM: Male, 85 years old. Diarrhea TECHNIQUE: 3 views were obtained. COMPARISON: None. FINDINGS: Normal visualized lung bases. There are surgical clips overlapping the right SI joint. There is an unremarkable bowel gas pattern. There is no demonstrated free abdominal air. The visualized liver, spleen and kidneys are grossly normal in size and morphology. Normal soft tissue structures. Normal visualized osseous structures. RAD/Abdomen Single View IMPRESSION: There is unremarkable bowel gas pattern. Electronically Signed: Markos Barger MD at 23:12 EDT ,
[2021-10-29] MEDS: Ranolazine 500 MG Tablet 1000 MG PO ×2 (05:09→17:57)
[2021-10-29] MEDS: Pantoprazole Sodium 40 MG Tablet PO (05:09)
[2021-10-29 05:18] VITALS: BP 120/79; PULSE 75; RESP 16; O2SAT 97
[2021-10-29 05:26] LABS: Absolute Lymphocyte Count 0.54 X10^3/uL (0.83-4.51); Absolute Neutrophil Count 3.6 X10^3/uL (2.0-7.7); Basophil# 0.01 X10^3/uL; Basophil% 0.2 % (0-1); Eosinophils% 1.9 % (0-5); Hemoglobin 11.1 g/dL (13.0-16.5); Lymphocyte # 0.54 X10^3/ul (0.83-4.51); Lymphocyte % 10.2 % (19-41); Mean Corp Hgb Conc 33.6 g/dL (32-36); Mean Corpuscular Hgb 36.5 pg (27.0-32.0); Mean Corpuscular Volume 108.6 fL (80-94); Mean Platelet Vol. 11.8 fl (6.2-12.0); Monocyte# 1.06 X10^3/uL; NRBC Flagged by Analyzer 0 % (0-5); Neutrophil # 3.56 X10^3/uL (2.7-7.7); Neutrophil % 67.3 % (47-70); POSITIVE DIFFERENTIAL YES; Platelet Count 103 K/mm3 (150-450); RBC Distribution Width CV 15.3 % (11.6-14.6); RBC Distribution Width SD 61.4 fl (35.1-43.9); Red Blood Count 3.04 M/mm3 (4.6-6.2); White Blood Count 5.3 K/mm3 (4.4-11.0)
[2021-10-29 05:29] LABS: Differential Indicated SCAN CRITERIA MET
[2021-10-29 05:44] LABS: Anisocytosis 1+; Macrocytosis 3+
[2021-10-29 06:00] LABS: Anion Gap 5 (5-15); BUN 15 mg/dL (7-18); BUN/Creat Ratio 14.7 RATIO (10-20); Calcium,Total 8.2 mg/dL (8.5-10.1); Chloride 109 mmol/L (98-107); Creatinine, Serum 1.02 mg/dL (0.70-1.30); EST Glomerular Filtration Rate 74 mL/min (>60); Est Glom Filt Rate - Afr Amer 90 mL/min (>60); Estimated Creatinine Clearance 56.66 ml/min; Glucose 91 mg/dL (74-106); Potassium 3.8 mmol/L (3.5-5.1); Sodium Level 140 mmol/L (136-145)
[2021-10-29] MEDS: Senna/Docusate Sodium 1 Tablet PO ×2 (08:23→17:57)
[2021-10-29] MEDS: Potassium Chloride Oral Tablet 20 MEQ PO (08:23)
[2021-10-29] MEDS: Aspirin E.C. 81 MG Tablet PO (08:23)
[2021-10-29] MEDS: Polyethylene Glycol 3350 17 GM PACKET PO (08:23)
[2021-10-29] MEDS: Bisacodyl 5 MG Tablet 10 MG PO (08:23)
--- NOTE | 2021-10-29 13:27 | PHA.CONS1_ITS ---
Progress Note - Pharmacy Subjective: TCU ADMISSION Objective: Allergies tramadol [From Ultram] Adverse Reaction (Verified 10/27/21 06:31) Other DIZZINESS, WEAKNESS, LIGHT HEADEDNESS Current Medications Generic Name Dose Route Start Last Admin Trade Name Freq PRN Reason Stop Dose Admin Acetaminophen 1,000 mg 10/28/21 20:53 Acetaminophen 500 Mg Tablet PO Q6H PRN PRN Pain Score 1-10 Aspirin 81 mg 10/29/21 08:00 10/29/21 08:23 Aspirin E.C. 81 Mg Tablet PO 81 mg DAILYCM IRENA Administration Atorvastatin Calcium 40 mg 10/28/21 22:00 10/28/21 20:48 Atorvastatin Calcium 40 Mg Tablet PO 40 mg QHS IRENA Administration Calamine/Phenol 1 applic 10/28/21 15:37 Menthol/Lanolin/Calamine/Znox 113 Gm Tube TOPICAL DAILY PRN wound healing Protocol Sodium Chloride 250 mls @ 15 mls/hr 10/28/21 15:51 IV .[id number] PRN Saline Flush Sodium Chloride 250 mls @ 15 mls/hr 10/28/21 15:51 IV .[id number] PRN Additional IVPB Infusion Melatonin 10 mg 10/29/21 08:00 10/29/21 08:17 Melatonin 10 Mg Tablet PO Not Given QHS COUNTS INCLUDE 234 BEDS AT THE [facility] Nitroglycerin 0.4 mg 10/28/21 16:23 Nitroglycerin (Inpatient Use) 0.4 Mg Tab.Subl SL Q5M PRN CARDIAC/CHEST PAIN Nutritional Formula (Lactose Free) 120 ml 10/28/21 17:00 10/29/21 12:18 Ensure Enlive 120 Ml Liquid PO Not Given 4X/DAY IRENA Pantoprazole Sodium 40 mg 10/29/21 06:00 10/29/21 05:09 Pantoprazole Sodium 40 Mg Tablet PO 40 mg DAILY IRENA Administration Polyethylene Glycol 17 gm 10/29/21 08:00 10/29/21 08:23 Polyethylene Glycol 3350 17 Gm Packet PO 17 gm DAILY IRENA Administration Potassium Chloride 20 meq 10/29/21 08:00 10/29/21 08:23 Potassium Chloride Oral Tablet 20 Meq PO 20 meq DAILYCM IRENA Administration Ranolazine 1,000 mg 10/28/21 18:00 10/29/21 05:09 Ranolazine 500 Mg Tablet PO 1,000 mg BID IRENA Administration Senna/Docusate Sodium 1 tablet 05/05/22 08:00 10/29/21 08:23 Senna/Docusate Sodium 1 Tablet PO 1 tablet BID IRENA Administration Sodium Chloride 10 - 40 ml 10/28/21 15:51 0.9% Saline Lock 10 Ml Syringe IV UD PRN SALINE FLUSH Tamsulosin HCl 0.4 mg 10/28/21 17:30 10/28/21 17:50 Tamsulosin Hcl 0.4 Mg Capsule PO 0.4 mg DAILY@1730 IRENA Administration Tuberculin PPD 0.1 ml 11/05/21 10:00 Tuberculin,Purif.Prot.Deriv. 50 Tu/Ml Vial ID 11/05/21 10:01 X1 ONE Problem List (Last Reviewed 10/28/21 @ 20:[address] Kaiser Pan MD) Coronary artery disease (Acute) Hypokalemia (Acute) Gastroesophageal reflux disease (Acute) Hyperlipidemia (Acute) Benign prostate hyperplasia (Acute) Diarrhea (Acute) Dehydration (Acute) Weakness (Acute) Debility (Acute) Vital Signs Temp Pulse Resp BP Pulse Ox 97.2 F L 75 16 120/79 97 10/28/21 15:35 10/29/21 05:18 10/29/21 05:18 10/29/21 05:18 10/29/21 05:18 Oxygen Delivery Method Room Air Weight: 119.748 kg Body Mass Index (BMI) 37.8 Sodium 140 mmol/L (136-145) 10/29/21 05:19 Potassium 3.8 mmol/L (3.5-5.1) 10/29/21 05:19 Chloride 109 mmol/L (98-107) H 10/29/21 05:19 Carbon Dioxide 26.0 mmol/L (21.0-32.0) 10/29/21 05:19 Anion Gap 5 (5-15) 10/29/21 05:19 BUN 15 mg/dL (7-18) 10/29/21 05:19 Creatinine 1.02 mg/dL (0.70-1.30) 10/29/21 05:19 Est GFR (MDRD) Af Amer 90 mL/min (>60) 10/29/21 05:19 Est GFR (MDRD) Non-Af 74 mL/min (>60) 10/29/21 05:19 BUN/Creatinine Ratio 14.7 RATIO (10-20) 10/29/21 05:19 Glucose 91 mg/dL (74-106) 10/29/21 05:19 Assessment/Plan: 1. Pain: Tylenol 1000mg PO Q6h PRN Pain 1-10. Please continue to monitor for increased/decreased S/S pain, PRN medication usage, LFT monitoring with frequent use. 2. CAD/HLD: Aspirin 81mg PO Daily, Lipitor 40mg PO QHS, Ranexa 1000mg PO BID, Nitrostat PRN. Please continue to monitor BP (last 120/79), Pulse (last 75 BPM), H/H (hx of anemia), S/S bleeding/bruising, lipid panel annually or sooner if clinically indicated. 3. Hypokalemia (Hx): KCl 20mEq PO Daily. Please continue to monitor potassium level (last 3.8 on 10/29), S/S GI upset. 4. BPH: Flomax 0.4mg PO Daily. Please continue to monitor for improvement in urinary symptoms. 5. GERD: Protonix 40mg PO Daily. Please continue to monitor for S/S GERD exacerbations, Vitamin B12 levels as clinically indicated. Please consider non- pharmacologic treatments to help reduce GERD flare-ups in addition to Protonix. 6. Insomnia: Melatonin 10mg PO QHS. Please continue to monitor for medication effectiveness. If medication appear ineffective, consider administering at least 2 hours prior to desired bedtime to allow medication to take effect. Psychotropic Medications: None Unnecessary Medications: None Bowel Regimen: Senna/Docusate 1 tab PO BID, Miralax 17g PO daily. Please continue to monitor for increased/decreased constipation and/or diarrhea. Date of Note:: 10/29/21
[2021-10-29 16:00] VITALS: BP 155/73; PULSE 75; RESP 18; TEMP 36.2; O2SAT 95
--- NOTE | 2021-10-29 16:05 | CASEMGMT ---
Social Work Met with pt to complete initial assessment. Introduced self and role. Son present in room, identifying himself as POA. Copies on file confirming. Pt granted permission to complete assessment in presence of son. Son asked questions pertaining to insurance, LOS, etc. Explained Medicare benefit. Encouraged to contact secondary insurance to ensure copay coverage. Discussed code status and MOLST form. Confirmed full code. MOLST communicated to , placed in chart. The goal is for pt to get stronger to return to PLOF safely at home alone. SW to continue to follow. Juliet Orr, CONTINUITY PERSON BURN TABLE OPERATOR
[2021-10-29] MEDS: Lactulose 20 GM/30 ML UDC PO (17:56)
[2021-10-29] MEDS: Tamsulosin HCl 0.4 MG Capsule PO (17:57)
[2021-10-29] MEDS: Tuberculin,Purif.prot.deriv. 50 TU/ML Vial 0.1 ML ID (20:06)
[2021-10-29] MEDS: Atorvastatin Calcium 40 MG Tablet PO (20:09)
[2021-10-29] MEDS: MELATONIN 10 MG TABLET PO (20:09)
[2021-10-30 05:39] LABS: Absolute Lymphocyte Count 0.54 X10^3/uL (0.83-4.51); Absolute Neutrophil Count 3.3 X10^3/uL (2.0-7.7); Eosinophil# 0.21 X10^3/uL; Eosinophils% 4.3 % (0-5); Hematocrit 32.6 % (40-54); Hemoglobin 11.2 g/dL (13.0-16.5); Lymphocyte # 0.54 X10^3/ul (0.83-4.51); Mean Corp Hgb Conc 34.4 g/dL (32-36); Mean Corpuscular Hgb 36.8 pg (27.0-32.0); Mean Corpuscular Volume 107.2 fL (80-94); Mean Platelet Vol. 12.3 fl (6.2-12.0); Monocyte# 0.83 X10^3/uL; NRBC Flagged by Analyzer 0 % (0-5); Neutrophil # 3.29 X10^3/uL (2.7-7.7); Neutrophil % 67.3 % (47-70); POSITIVE DIFFERENTIAL YES; Platelet Count 114 K/mm3 (150-450); RBC Distribution Width CV 15.3 % (11.6-14.6); RBC Distribution Width SD 60.3 fl (35.1-43.9); Red Blood Count 3.04 M/mm3 (4.6-6.2); White Blood Count 4.9 K/mm3 (4.4-11.0)
[2021-10-30 05:52] LABS: Differential Indicated SCAN CRITERIA MET
[2021-10-30 05:58] LABS: Anisocytosis 1+; Macrocytosis 3+
[2021-10-30] MEDS: Senna/Docusate Sodium 1 Tablet PO ×2 (06:00→18:09)
[2021-10-30] MEDS: Pantoprazole Sodium 40 MG Tablet PO (06:00)
[2021-10-30] MEDS: Polyethylene Glycol 3350 17 GM PACKET PO (06:00)
[2021-10-30] MEDS: Ranolazine 500 MG Tablet 1000 MG PO ×2 (06:00→18:06)
[2021-10-30 06:01] LABS: Anion Gap 6 (5-15); BUN 15 mg/dL (7-18); BUN/Creat Ratio 15.2 RATIO (10-20); Calcium,Total 8.5 mg/dL (8.5-10.1); Chloride 108 mmol/L (98-107); Creatinine, Serum 0.99 mg/dL (0.70-1.30); EST Glomerular Filtration Rate 77 mL/min (>60); Est Glom Filt Rate - Afr Amer 93 mL/min (>60); Estimated Creatinine Clearance 58.38 ml/min; Glucose 105 mg/dL (74-106); Potassium 4.2 mmol/L (3.5-5.1); Sodium Level 140 mmol/L (136-145)
[2021-10-30] MEDS: Aspirin E.C. 81 MG Tablet PO (08:46)
[2021-10-30] MEDS: Potassium Chloride Oral Tablet 20 MEQ PO (08:46)
[2021-10-30] MEDS: Arthritis Pain Compound 60 CLICK TUBE TOPICAL ×2 (09:03→18:07)
[2021-10-30 14:14] VITALS: BP 134/63; PULSE 78; RESP 18; TEMP 36.8; O2SAT 96
[2021-10-30] MEDS: Tamsulosin HCl 0.4 MG Capsule PO (18:07)
[2021-10-30] MEDS: MELATONIN 10 MG TABLET PO (22:00)
[2021-10-30] MEDS: Atorvastatin Calcium 40 MG Tablet PO (22:00)
[2021-10-30 22:58] VITALS: PULSE 780; RESP 16; O2SAT 97
[2021-10-31] MEDS: Senna/Docusate Sodium 1 Tablet PO ×2 (05:21→17:34)
[2021-10-31] MEDS: Arthritis Pain Compound 60 CLICK TUBE TOPICAL ×2 (05:21→17:34)
[2021-10-31] MEDS: Polyethylene Glycol 3350 17 GM PACKET PO (05:21)
[2021-10-31] MEDS: Pantoprazole Sodium 40 MG Tablet PO (05:21)
[2021-10-31] MEDS: Ranolazine 500 MG Tablet 1000 MG PO ×2 (05:21→17:34)
[2021-10-31] MEDS: Potassium Chloride Oral Tablet 20 MEQ PO (08:27)
[2021-10-31] MEDS: Aspirin E.C. 81 MG Tablet PO (08:28)
[2021-10-31 09:17] VITALS: PULSE 82
[2021-10-31 16:00] VITALS: BP 124/64; PULSE 63; RESP 18; TEMP 36.2; O2SAT 97
[2021-10-31] MEDS: Tamsulosin HCl 0.4 MG Capsule PO (17:35)
[2021-10-31] MEDS: MELATONIN 10 MG TABLET PO (21:12)
[2021-10-31] MEDS: Atorvastatin Calcium 40 MG Tablet PO (21:12)
[2021-10-31] MEDS: Acetaminophen 500 MG Tablet 1000 MG PO (21:13)
[2021-11-01] MEDS: Ranolazine 500 MG Tablet 1000 MG PO ×2 (05:48→17:24)
[2021-11-01] MEDS: Polyethylene Glycol 3350 17 GM PACKET PO (05:48)
[2021-11-01] MEDS: Senna/Docusate Sodium 1 Tablet PO ×2 (05:48→17:24)
[2021-11-01] MEDS: Pantoprazole Sodium 40 MG Tablet PO (05:48)
[2021-11-01] MEDS: Arthritis Pain Compound 60 CLICK TUBE TOPICAL ×2 (05:50→17:24)
[2021-11-01 05:58] VITALS: BP 154/79; PULSE 68
[2021-11-01] MEDS: Potassium Chloride Oral Tablet 20 MEQ PO (08:44)
[2021-11-01] MEDS: Aspirin E.C. 81 MG Tablet PO (08:44)
[2021-11-01 16:00] VITALS: BP 116/71; PULSE 66; RESP 18; TEMP 36.4; O2SAT 93
[2021-11-01] MEDS: Tamsulosin HCl 0.4 MG Capsule PO (17:24)
[2021-11-01 19:43] VITALS: PULSE 68; RESP 16; O2SAT 98
[2021-11-01] MEDS: MELATONIN 10 MG TABLET PO (21:21)
[2021-11-01] MEDS: Atorvastatin Calcium 40 MG Tablet PO (21:21)
[2021-11-02] MEDS: Arthritis Pain Compound 60 CLICK TUBE TOPICAL ×2 (05:45→17:29)
[2021-11-02] MEDS: Polyethylene Glycol 3350 17 GM PACKET PO (05:46)
[2021-11-02] MEDS: Ranolazine 500 MG Tablet 1000 MG PO ×2 (05:46→17:29)
[2021-11-02] MEDS: Senna/Docusate Sodium 1 Tablet PO (05:46)
[2021-11-02] MEDS: Pantoprazole Sodium 40 MG Tablet PO (05:46)
[2021-11-02 05:48] VITALS: BP 127/69; PULSE 64
[2021-11-02] MEDS: Potassium Chloride Oral Tablet 20 MEQ PO (08:14)
[2021-11-02] MEDS: Aspirin E.C. 81 MG Tablet PO (08:14)
[2021-11-02 11:20] VITALS: PULSE 68; RESP 16; O2SAT 98
[2021-11-02 15:49] VITALS: BP 115/58; PULSE 89; RESP 16; TEMP 36.9; O2SAT 98
[2021-11-02] MEDS: Tamsulosin HCl 0.4 MG Capsule PO (16:30)
[2021-11-02] MEDS: Atorvastatin Calcium 40 MG Tablet PO (20:27)
[2021-11-02] MEDS: MELATONIN 10 MG TABLET PO (20:27)
[2021-11-03] MEDS: Senna/Docusate Sodium 1 Tablet PO ×2 (07:03→18:00)
[2021-11-03] MEDS: Pantoprazole Sodium 40 MG Tablet PO (07:03)
[2021-11-03] MEDS: Arthritis Pain Compound 60 CLICK TUBE TOPICAL ×2 (07:03→18:00)
[2021-11-03] MEDS: Ranolazine 500 MG Tablet 1000 MG PO ×2 (07:04→18:00)
[2021-11-03] MEDS: Potassium Chloride Oral Tablet 20 MEQ PO (08:31)
[2021-11-03] MEDS: Aspirin E.C. 81 MG Tablet PO (08:31)
[2021-11-03] MEDS: COVID-19 VACC, MRNA(PFIZER)/PF 30 MCG/0.3 ML SYRINGE IM (09:37)
[2021-11-03 14:26] VITALS: BP 129/56; PULSE 62; RESP 18; TEMP 36.2; O2SAT 97
[2021-11-03] MEDS: Tamsulosin HCl 0.4 MG Capsule PO (18:00)
[2021-11-03] MEDS: MELATONIN 10 MG TABLET PO (20:40)
[2021-11-03] MEDS: Atorvastatin Calcium 40 MG Tablet PO (20:40)
[2021-11-03 20:44] VITALS: PULSE 68; RESP 16; O2SAT 96
[2021-11-04] MEDS: Arthritis Pain Compound 60 CLICK TUBE TOPICAL ×2 (05:44→17:26)
[2021-11-04] MEDS: Polyethylene Glycol 3350 17 GM PACKET PO (05:44)
[2021-11-04] MEDS: Menthol/Lanolin/Calamine/Znox 113 GM Tube 1 APPLIC TOPICAL (05:44)
[2021-11-04] MEDS: Ranolazine 500 MG Tablet 1000 MG PO ×2 (05:45→17:26)
[2021-11-04] MEDS: Senna/Docusate Sodium 1 Tablet PO ×2 (05:45→17:26)
[2021-11-04] MEDS: Pantoprazole Sodium 40 MG Tablet PO (05:45)
[2021-11-04] MEDS: Acetaminophen 500 MG Tablet 1000 MG PO (05:53)
[2021-11-04 05:55] VITALS: BP 139/63; PULSE 62
[2021-11-04] MEDS: Aspirin E.C. 81 MG Tablet PO (08:45)
[2021-11-04] MEDS: Potassium Chloride Oral Tablet 20 MEQ PO (08:45)
--- NOTE | 2021-11-04 09:31 | NURSING ---
Software Development Coordinator Note: Interview and MDS section F complete.
--- NOTE | 2021-11-04 13:03 | CASEMGMT ---
Social Work IDT met with patient and son for care plan meeting. Discussed patient's progress in PT/OT/ST and nursing. Pt making progress. Explained Medicare benefit. Encouraged to contact secondary insurance to ensure copay coverage. The goal is for pt to return home alone and son supervises meds and finances. Pt scored moderate cognitive impairment on ST test. ST explained details of scoring, per son request. Discussed DC plans. Son comfortable with pt request to DC home 11/06. Offered HHC vs OP therapy and DME needs. No DME needs identified. Son prefers HHC. Provided skilled HHC list with quality resource data. Son to review and notify SW. Plan: DC home 11/06 with HHC PT/OT/SN, son to transport. BIMS and PHQ-9 completed for MDS assessment. ROXI Mcneill AUTO SALVAGE WORKER
[2021-11-04 16:00] VITALS: BP 113/58; PULSE 66; RESP 14; TEMP 36.5; O2SAT 94
[2021-11-04] MEDS: Tamsulosin HCl 0.4 MG Capsule PO (17:26)
[2021-11-04] MEDS: MELATONIN 10 MG TABLET PO (21:10)
[2021-11-04] MEDS: Atorvastatin Calcium 40 MG Tablet PO (21:10)
[2021-11-05] MEDS: Pantoprazole Sodium 40 MG Tablet PO (05:17)
[2021-11-05] MEDS: Ranolazine 500 MG Tablet 1000 MG PO ×2 (05:17→17:35)
[2021-11-05] MEDS: Senna/Docusate Sodium 1 Tablet PO ×2 (05:17→17:35)
[2021-11-05] MEDS: Polyethylene Glycol 3350 17 GM PACKET PO (05:17)
[2021-11-05] MEDS: Arthritis Pain Compound 60 CLICK TUBE TOPICAL ×2 (05:18→17:35)
--- NOTE | 2021-11-05 08:02 | PCM.DC.SUM ---
Providers Date of Admission: 10/28/21 Primary Care Physician: Dr. Kaiser Pan MD Reason For Visit: GENERALIZED WEAKNESS Diagnosis Discharge Diagnosis (1) Debility: Status: Acute Code(s): R53.81 - Other malaise (2) Weakness: Status: Acute Code(s): R53.1 - Weakness (3) Dehydration: Status: Acute Code(s): E86.0 - Dehydration (4) Diarrhea: Status: Acute Code(s): R19.7 - Diarrhea, unspecified (5) Benign prostate hyperplasia: Status: Acute Code(s): N40.0 - Benign prostatic hyperplasia without lower urinary tract symptoms (6) Hyperlipidemia: Status: Acute Code(s): E78.5 - Hyperlipidemia, unspecified (7) Gastroesophageal reflux disease: Status: Acute Code(s): K21.9 - Gastro-esophageal reflux disease without esophagitis (8) Hypokalemia: Status: Acute Code(s): E87.6 - Hypokalemia (9) Coronary artery disease: Status: Acute Code(s): I25.10 - Atherosclerotic heart disease of [place] coronary artery without angina pectoris Medications at Discharge Home Medications tamsulosin 0.4 mg PO DAILY 03/06/16 atorvastatin 40 mg tablet 40 mg PO QHS tab 06/26/18 aspirin 81 mg tablet,delayed release 81 mg PO DAILY 07/04/18 omeprazole 40 mg capsule,delayed release 40 mg PO DAILY 07/04/18 potassium chloride 20 mEq tablet,extended release 20 meq PO DAILY 07/04/18 nitroglycerin 0.4 mg sublingual tablet 0.4 mg SUBLINGUAL Q5M PRN #25 tab 02/19/21 ranolazine 1,000 mg tablet,extended release,12 hr 1,000 mg PO BID #180 tab 07/23/21 acetaminophen 1,000 mg PO Q6H PRN PRN #0 tab 11/05/21 Hospital Course Operations None Procedures None Summary of Care Provided Minutes Spent on Discharge: 35 Hospital Course: 85 year old male with below past medical history hospitalized for weakness secondary to dehydration from profuse diarrhea from magnesium citrate, admitted to TCU with debility, here for rehabilitation, strengthening, prior to discharge home alone. Discharge home alone 11/06/2021, Home Health Care PT/OT/SN, son to transport. Physical Exam Const alert General Appearance: cooperative HEENT normocephalic Eyes PERRL and EOMs intact bilaterally Neck supple, no JVD and no carotid bruits Resp normal respiratory effort, normal air movement and clear to auscultation bilaterally Cardio regular rate and regular rhythm GI normal to inspection, nondistended, normoactive bowel sounds, non-tender and non-distended Extremity normal capillary refill General Extremity: Negative for edema Skin no rashes or lesions noted General Skin Exam: no breakdown Psych affect normal Appearance: appropriate Weight / BMI Weight Weight: 114.623 kg Body Mass Index (BMI) 37.8 ABG / Lab / Microbiology Data Result Diagrams: 10/30/21 05:16 10/30/21 05:16 Microbiology: Microbiology 11/02/21 11:01 Nasal Secretion SARS-CoV-2 Antigen (Rapid) - Final D/C Instructions Discharge Diet: No restrictions Discharge Activity: Return to Normal Activity, May Shower and May Not Shower Weight Bearing Status: Weight bearing as tolerated Call your doctor if you observe: Fever of 101 or Higher, Inability to have a bowel movement, Shortness of breath, Dizziness, Fainting spells, Swelling in the ankles, Chest pain, Increased palpitations (irregular heartbeat) and Uncontrolled pain Additional Instructions: Discharge home alone 11/06/2021, Home Health Care PT/OT/SN, son to transport. Meaningful Use Info Meaningful Use Diagnoses (Choose all that apply): None applicable Discharge Plan Admission Admit Date/Time: 10/28/21 15:28 Primary Reason for Your Visit: Debility. Attending Provider: Kaiser Pan Chi Primary Care Provider: Kaiser Pan Chi Instructions Additional Instructions / Restrictions: Discharge home alone 11/06/2021, Home Health Care PT/OT/SN, son to transport. Discharge Orders/Prescriptions Prescriptions: New acetaminophen 500 mg Tablet 1,000 mg PO Q6H PRN PRN (Reason: Pain Score 1-10) Qty: 0 RF: 0 Continued aspirin [Aspirin Low Dose] 81 mg tablet,delayed release (DR/EC) 81 mg PO DAILY RF: 0 omeprazole 40 mg capsule,delayed release(DR/EC) 40 mg PO DAILY RF: 0 potassium chloride 20 mEq tablet extended release 20 meq PO DAILY RF: 0 nitroglycerin 0.4 mg tablet, sublingual 0.4 mg SUBLINGUAL Q5M PRN (Reason: Chest Pain) Qty: 25 RF: 3 tamsulosin 0.4 MG capsule 0.4 mg PO DAILY RF: 0 atorvastatin 40 mg tablet 40 mg PO QHS RF: 0 ranolazine 1,000 mg tablet extended release 12 hr 1,000 mg PO BID Qty: 180 RF: 3 Discontinued furosemide [Lasix] 40 mg tablet 40 mg PO DAILY PRN (Reason: Edema) RF: 0 multivitamin Tablet 1 tab PO DAILY RF: 0 metoclopramide HCl 10 MG tablet 10 mg PO Q6H PRN (Reason: nausea and vomiting) Qty: 20 RF: 0 menthol-zinc oxide [Calmoseptine] 0.44-20.6 % ointment 1 applic topical DAILY PRN (Reason: wound healing) Qty: 113 RF: 0 Referrals / Follow Up: Kaiser Pan Chi, MD [Primary Care Provider] - Within 1 Week Disposition Disposition (needs filled in before D/C Order can be placed): Home Health Service
[2021-11-05] MEDS: Aspirin E.C. 81 MG Tablet PO (08:30)
[2021-11-05] MEDS: Potassium Chloride Oral Tablet 20 MEQ PO (08:30)
--- NOTE | 2021-11-05 13:41 | PCA ---
pt was asked if would like to take a shower .pt refused shower for this afternoon.
--- NOTE | 2021-11-05 14:14 | CASEMGMT ---
Addendum entered by Juliet Orr 11/06/21 09:12: Received voicemail from son choosing [facility]. Referral made for PT/OT/ST. Original Note: Social Work Called son to follow up on C choice. He has not made on yet. He will be in to visit father this evening to make a choice. Juliet Orr, [employer]
[2021-11-05 16:00] VITALS: BP 117/63; PULSE 68; RESP 15; TEMP 35.9; O2SAT 93
[2021-11-05] MEDS: Tamsulosin HCl 0.4 MG Capsule PO (17:35)
[2021-11-05 21:45] VITALS: PULSE 74; RESP 16; O2SAT 96
[2021-11-05] MEDS: MELATONIN 10 MG TABLET PO (21:53)
[2021-11-05] MEDS: Atorvastatin Calcium 40 MG Tablet PO (21:53)
[2021-11-06] MEDS: Arthritis Pain Compound 60 CLICK TUBE TOPICAL (05:43)
[2021-11-06] MEDS: Polyethylene Glycol 3350 17 GM PACKET PO (05:43)
[2021-11-06] MEDS: Ranolazine 500 MG Tablet 1000 MG PO (05:44)
[2021-11-06] MEDS: Pantoprazole Sodium 40 MG Tablet PO (05:44)
[2021-11-06] MEDS: Senna/Docusate Sodium 1 Tablet PO (05:44)
[2021-11-06 05:50] VITALS: BP 128/68; PULSE 70
[2021-11-06 06:03] LABS: Absolute Lymphocyte Count 0.63 X10^3/uL (0.83-4.51); Absolute Neutrophil Count 4.1 X10^3/uL (2.0-7.7); Basophil# 0.02 X10^3/uL; Basophil% 0.3 % (0-1); Eosinophil# 0.15 X10^3/uL; Eosinophils% 2.4 % (0-5); Hemoglobin 11.8 g/dL (13.0-16.5); Lymphocyte # 0.63 X10^3/ul (0.83-4.51); Lymphocyte % 10.2 % (19-41); Mean Corp Hgb Conc 33.7 g/dL (32-36); Mean Corpuscular Hgb 36.5 pg (27.0-32.0); Mean Corpuscular Volume 108.4 fL (80-94); Mean Platelet Vol. 11.8 fl (6.2-12.0); Monocyte# 1.18 X10^3/uL; Monocyte% 19.2 % (0-10); NRBC Flagged by Analyzer 0 % (0-5); Neutrophil # 4.14 X10^3/uL (2.7-7.7); Neutrophil % 67.3 % (47-70); Platelet Count 187 K/mm3 (150-450); RBC Distribution Width CV 14.9 % (11.6-14.6); RBC Distribution Width SD 59.7 fl (35.1-43.9); Red Blood Count 3.23 M/mm3 (4.6-6.2); White Blood Count 6.2 K/mm3 (4.4-11.0)
[2021-11-06 06:32] LABS: Anion Gap 5 (5-15); BUN 19 mg/dL (7-18); BUN/Creat Ratio 17.6 RATIO (10-20); Calcium,Total 8.8 mg/dL (8.5-10.1); Chloride 106 mmol/L (98-107); Creatinine, Serum 1.08 mg/dL (0.70-1.30); EST Glomerular Filtration Rate 69 mL/min (>60); Est Glom Filt Rate - Afr Amer 84 mL/min (>60); Estimated Creatinine Clearance 53.51 ml/min; Glucose 114 mg/dL (74-106); Potassium 4.3 mmol/L (3.5-5.1); Sodium Level 139 mmol/L (136-145)
[2021-11-06] MEDS: Aspirin E.C. 81 MG Tablet PO (08:16)
[2021-11-06] MEDS: Potassium Chloride Oral Tablet 20 MEQ PO (08:16)
[2021-11-06 09:10] VITALS: BP 121/71; PULSE 69; RESP 16; TEMP 36.6; O2SAT 95
[2021-11-06] MEDS: Calcium Carbonate 500 MG Tablet 1000 MG PO (10:51)
--- NOTE | 2021-11-06 10:55 | NURSING ---
Discharged at this time. Appt with Dr rivas at 1100. Son at bedside and assists resident to appointment.
--- NOTE | 2021-11-10 09:44 | MDS.RN ---
Information for the mds was obtained from review of the clinical record, interview of resident, staff, and direct observation of resident's care.
== END 2021-11-06 11:00 | disposition home health service (06) | DRG 641 ==
PROVIDERS: Admitting Provider Family Medicine Geriatric Medicine; PCP Family Medicine Geriatric Medicine; Visit Provider Family Medicine Geriatric Medicine
DX: E86.0 Dehydration (principal); E78.5 Hyperlipidemia, unspecified; I48.91 Unspecified atrial fibrillation; K21.9 Gastro-esophageal reflux disease without esophagitis; N40.0 Benign prostatic hyperplasia without lower urinary tract symptoms; I25.10 Atherosclerotic heart disease of native coronary artery without angina pectoris; Z79.899 Other long term (current) drug therapy; Z79.82 Long term (current) use of aspirin; Z23 Encounter for immunization
CPT/HCPCS: 0004A; 36415; 74018; 80048; 85025; 87426; 91300; 92507; 92523; 92610; 97110; 97116; 97162; 97166; 97530; 97535; 97802

== ENCOUNTER → 2022-01-13 | Outpatient (CLI) | payer MEDICARE, OTHER, SELFPAY ==
--- NOTE | 2022-01-13 15:51 | VDLE_ITS ---
Reason For Study: edema Procedure LEFT This is a venous duplex using B-mode, color GSV is normal. flow and spectral Doppler. CFV is compressible, spontaneous, phasic, Exam performed in department. competent, and demonstrates normal The exam was abbreviated due to the COVID 19 augmentation. protocol. FV is compressible, spontaneous, phasic, The exam was diagnostic. competent and demonstrates normal A preliminary report was called and/or faxed augmentation. to Dr. Pan. POP V is compressible, spontaneous, phasic, competent and demonstrates normal augmentation. T/P Trunk is compressible. PTV is compressible. LT PerV is compressible. VL/Venous Duplex US, Unilateral Interpretation Summary Deep veins of the left lower extremity are patent and compressible segmentally. There is no evidence of left lower extremity deep vein thrombosis. Valvular competence appears intac t within the proximal deep venous system on the left . The left great saphenous vein appears patent a nd compressible segmentally. Ordering Physician: Kaiser Pan Performed By: Avinash Fields RVT
--- NOTE | 2022-01-13 16:10 | RAD_ITS ---
EXAM: XR LEFT KNEE COMPLETE, 4 OR MORE VIEWS CLINICAL INDICATION: KNEE PAIN TECHNIQUE: Four or more views of the left knee. This report was created using [employer] report generation technology. COMPARISON: None. FINDINGS: BONES/JOINTS: Status post left total knee arthroplasty with components of the prosthesis in good position. No acute fracture. No subluxation. Normal alignment. No sclerotic or destructive changes observed. SOFT TISSUES: Unremarkable. No soft tissue swelling or gas. No radiopaque foreign body. RAD/Knee 4 or More Views IMPRESSION: Status post left total knee arthroplasty with components of the prosthesis in good position. No acute abnormality. Electronically Signed: Peter Kay MD at 6:33 EDT ,
== END | disposition home or self-care (01) ==
LOC: CVS 15:48
PROVIDERS: PCP Family Medicine Geriatric Medicine; Referring Provider Family Medicine Geriatric Medicine; Visit Provider Family Medicine Geriatric Medicine
DX: M25.562 Pain in left knee (principal); R60.1 Generalized edema; Z96.652 Presence of left artificial knee joint
CPT/HCPCS: 73564; 93971

== ENCOUNTER → 2022-02-04 | Outpatient (CLI) | payer MEDICARE, OTHER, SELFPAY ==
[2022-02-04 15:40] LABS: Absolute Lymphocyte Count 0.57 X10^3/uL (0.83-4.51); Absolute Neutrophil Count 2.6 X10^3/uL (2.0-7.7); Basophil# 0.02 X10^3/uL; Basophil% 0.5 % (0-1); Eosinophil# 0.16 X10^3/uL; Eosinophils% 3.9 % (0-5); Hematocrit 36.4 % (40-54); Hemoglobin 12.3 g/dL (13.0-16.5); Lymphocyte # 0.57 X10^3/ul (0.83-4.51); Lymphocyte % 13.7 % (19-41); Mean Corp Hgb Conc 33.8 g/dL (32-36); Mean Corpuscular Volume 109.6 fL (80-94); Mean Platelet Vol. 11.9 fl (6.2-12.0); Monocyte# 0.79 X10^3/uL; NRBC Flagged by Analyzer 0 % (0-5); Neutrophil % 62.7 % (47-70); POSITIVE DIFFERENTIAL YES; Platelet Count 144 K/mm3 (150-450); RBC Distribution Width CV 15.2 % (11.6-14.6); RBC Distribution Width SD 61.2 fl (35.1-43.9); Red Blood Count 3.32 M/mm3 (4.6-6.2); White Blood Count 4.2 K/mm3 (4.4-11.0)
[2022-02-04 15:57] LABS: Differential Indicated SCAN CRITERIA MET
[2022-02-04 16:07] LABS: Vitamin D,25 Hydroxy 34.4 ng/mL
[2022-02-04 16:30] LABS: ALB/GLOB Ratio 1.1 RATIO (0.9-2.4); AST(SGOT) 24 U/L (15-37); Alanine Aminotransfer ALT/SGPT 25 U/L (16-61); Albumin, Serum 3.4 g/dL (3.2-5.0); Alkaline Phosphatase 69 U/L (45-117); Anion Gap 5 (5-15); BUN 14 mg/dL (7-18); BUN/Creat Ratio 12.1 RATIO (10-20); Chloride 108 mmol/L (98-107); Creatinine, Serum 1.16 mg/dL (0.70-1.30); EST Glomerular Filtration Rate 64 mL/min (>60); Est Glom Filt Rate - Afr Amer 77 mL/min (>60); Globulin 3.2 g/dL (2.2-4.2); Glucose 100 mg/dL (74-106); Potassium 4.6 mmol/L (3.5-5.1); Protein, Total 6.6 g/dL (6.4-8.2); Sodium Level 142 mmol/L (136-145); Thyroid Stim Hormone (TSH) 1.74 uIU/mL (0.358-3.74)
[2022-02-04 16:34] LABS: Differential Comment SCANNED
[2022-02-05 11:26] LABS: Pathologist Review Reviewed
== END | disposition home or self-care (01) ==
LOC: LAB 14:57
PROVIDERS: PCP Family Medicine Geriatric Medicine; Visit Provider Family Medicine Geriatric Medicine
DX: I10 Essential (primary) hypertension (principal); E55.9 Vitamin D deficiency, unspecified
CPT/HCPCS: 36415; 80053; 82306; 84443; 85025

== ENCOUNTER → 2022-04-27 | Outpatient (CLI) | payer MEDICARE, OTHER, SELFPAY ==
--- NOTE | 2022-04-27 13:50 | ECHOCS_ITS ---
Reason For Study: Aortic Stenosis Procedure This was a 2D Doppler, Color Flow transthoracic echocardiogram. The study was technically difficult. Patient could not tolerate pedoff probe for valve interrogation. Contrast injection was performed. Exam performed in department. Left Ventricle Normal LV size. Segmental dysfunction with preserved ejection fraction (see wall motion). The estimated ejection fraction is 60 %. No evidence for diastolic dysfunction. Infero-Basal: Hypokinetic. Basal inferoseptal: Hypokinetic. Right Ventricle Normal RV size. Normal systolic function. Atria The left atrium is mildly enlarged. Normal right atrium. No doppler evidence for ASD. Mitral Valve There is no mitral annular calcification. Normal mitral valve. Trivial mitral valve insufficiency. Tricuspid Valve Normal tricuspid valve. Moderate (2+) tricuspid valve insufficiency. Right ventricular systolic pressure estimated to be 30 mmHg. Aortic Valve Trisinus/trileaflet aortic valve. Moderate diffuse aortic valve thickening. Moderate diffuse aortic valve calcification. Moderate to severe aortic valve stenosis. Pulmonic Valve The pulmonic valve is not well visualized. Trivial pulmonic valve insufficiency. Great Vessels Mildly dilated aortic root. Pericardium/Pleural No pericardial effusion. Medication 20 gauge I.V. with prn adaptor inserted into right arm. Diluted definity 1ml given slow IV push to enhance endocardial definition. MMode/2D Measurements & Calculations LVIDd: 4.9 cm IVSd: 1.1 cm LVOT diam: 2.0 cm LVIDs: 3.1 cm LVPWd: 1.1 cm FS: 36.9 % LVOT area: 3.1 cm2 Ao root diam: 4.1 cm LAV(MOD-sp4): 64.0 ml Aortic Valve Planimetry: 0.65 cm2 LA dimension: 4.0 cm LA A4 area: 21.3 cm2 RA A4 area: 18.3 cm2 Time Measurements MV dec time: 0.25 sec Doppler Measurements & Calculations MV E max neto: 89.0 cm/sec Lat Peak E' Neto: 15.5 cm/sec Med Peak E' Neto: 7.5 cm/sec MV A max neto: 70.9 cm/sec E/E' lat: 5.8 E/E' med: 11.8 MV E/A: 1.3 MV V2 max: 100.0 cm/sec MV P1/2t max neto: 97.9 cm/sec Ao V2 max: 299.3 cm/sec MV max P.0 mmHg MV P1/2t: 93.2 msec Ao max P.8 mmHg MV V2 mean: 51.1 cm/sec MV dec slope: 307.9 cm/sec2 Ao V2 mean: 198.6 cm/sec MV mean P.2 mmHg MVA(P1/2t): 2.4 cm2 Ao mean P.5 mmHg MV V2 VTI: 30.7 cm Ao V2 VTI: 76.2 cm MVA(VTI): 1.7 cm2 CECILY(I,D): 0.68 cm2 CECILY(V,D): 0.79 cm2 LV V1 max: 76.8 cm/sec SV(LVOT): 52.0 ml PA V2 max: 105.0 cm/sec LV V1 max P.4 mmHg LV V1 mean P.2 mmHg LV V1 mean: 51.1 cm/sec LV V1 VTI: 17.0 cm PI end-d neto: 105.0 cm/sec TR max neto: 260.8 cm/sec TR max P.3 mmHg ECHO/Echo Complete W/ Contrast Interpretation Summary The study was technically difficult. Contrast injection was performed. Segmental dysfunction with preserved ejection fraction (see wall motion). The estimated ejection fraction is 60 %. The left atrium is mildly enlarged. Trivial mitral valve insufficiency. Moderate (2+) tricuspid valve insufficiency. Moderate to severe aortic valve stenosis. Trivial pulmonic valve insufficiency. Mildly dilated aortic root. Right ventricular systolic pressure estimated to be 30 mmHg. No evidence for diastolic dysfunction. Ordering Physician: Juan Jeronimo Referring Physician: Kaiser Pan Chi Performed By: Bryant Burgos RCS
== END | disposition home or self-care (01) ==
LOC: CVS 13:49
PROVIDERS: PCP Family Medicine Geriatric Medicine; Referring Provider Internal Medicine Cardiovascular Disease; Visit Provider Internal Medicine Cardiovascular Disease
DX: I35.0 Nonrheumatic aortic (valve) stenosis (principal); R07.2 Precordial pain
CPT/HCPCS: 93306; Q9957; A4216; C8929

== ENCOUNTER → 2022-08-09 | Outpatient (CLI) | payer MEDICARE, OTHER, SELFPAY ==
[2022-08-09 17:05] LABS: Absolute Lymphocyte Count 0.56 X10^3/uL (0.83-4.51); Basophil# 0.03 X10^3/uL; Basophil% 0.6 % (0-1); Eosinophil# 0.16 X10^3/uL; Eosinophils% 3.4 % (0-5); Hematocrit 37.6 % (40-54); Hemoglobin 12.5 g/dL (13.0-16.5); Lymphocyte # 0.56 X10^3/ul (0.83-4.51); Mean Corp Hgb Conc 33.2 g/dL (32-36); Mean Corpuscular Hgb 35.6 pg (27.0-32.0); Mean Corpuscular Volume 107.1 fL (80-94); Mean Platelet Vol. 12.6 fl (6.2-12.0); Monocyte# 0.93 X10^3/uL; Monocyte% 19.9 % (0-10); NRBC Flagged by Analyzer 0 % (0-5); Neutrophil # 2.97 X10^3/uL (2.7-7.7); Neutrophil % 63.7 % (47-70); POSITIVE DIFFERENTIAL YES; Platelet Count 151 K/mm3 (150-450); RBC Distribution Width SD 59.8 fl (35.1-43.9); Red Blood Count 3.51 M/mm3 (4.6-6.2); White Blood Count 4.7 K/mm3 (4.4-11.0)
[2022-08-09 17:14] LABS: Differential Indicated SCAN CRITERIA MET
[2022-08-09 17:27] LABS: Vitamin D,25 Hydroxy 26.3 ng/mL
[2022-08-09 17:28] LABS: Differential Comment SCANNED
[2022-08-09 17:32] LABS: ALB/GLOB Ratio 1.1 RATIO (0.9-2.4); AST(SGOT) 25 U/L (15-37); Alanine Aminotransfer ALT/SGPT 23 U/L (16-61); Albumin, Serum 3.7 g/dL (3.2-5.0); Alkaline Phosphatase 72 U/L (45-117); Anion Gap 5 (5-15); BUN 23 mg/dL (7-18); Calcium,Total 9.1 mg/dL (8.5-10.1); Chloride 105 mmol/L (98-107); Creatinine, Serum 1.44 mg/dL (0.70-1.30); EST Glomerular Filtration Rate 50 mL/min (>60); Est Glom Filt Rate - Afr Amer 60 mL/min (>60); Globulin 3.4 g/dL (2.2-4.2); Glucose 88 mg/dL (74-106); Potassium 4.6 mmol/L (3.5-5.1); Protein, Total 7.1 g/dL (6.4-8.2); Sodium Level 139 mmol/L (136-145)
== END | disposition home or self-care (01) ==
LOC: POLAB3 14:12
PROVIDERS: PCP Family Medicine Geriatric Medicine; Visit Provider Family Medicine Geriatric Medicine
DX: R53.83 Other fatigue (principal); E55.9 Vitamin D deficiency, unspecified
CPT/HCPCS: 36415; 80053; 82306; 84443; 85025

== ENCOUNTER → 2022-11-08 | Outpatient (CLI) | payer MEDICARE, OTHER, SELFPAY ==
[2022-11-08 16:41] LABS: Absolute Lymphocyte Count 0.52 X10^3/uL (0.83-4.51); Absolute Neutrophil Count 2.9 X10^3/uL (2.0-7.7); Basophil# 0.02 X10^3/uL; Basophil% 0.5 % (0-1); Eosinophil# 0.15 X10^3/uL; Eosinophils% 3.4 % (0-5); Hematocrit 36.7 % (40-54); Hemoglobin 12.2 g/dL (13.0-16.5); Lymphocyte # 0.52 X10^3/ul (0.83-4.51); Lymphocyte % 11.8 % (19-41); Mean Corp Hgb Conc 33.2 g/dL (32-36); Mean Corpuscular Hgb 35.9 pg (27.0-32.0); Mean Corpuscular Volume 107.9 fL (80-94); Mean Platelet Vol. 12.5 fl (6.2-12.0); Monocyte# 0.79 X10^3/uL; Monocyte% 17.9 % (0-10); NRBC Flagged by Analyzer 0 % (0-5); Neutrophil # 2.93 X10^3/uL (2.7-7.7); Neutrophil % 66.2 % (47-70); POSITIVE DIFFERENTIAL YES; Platelet Count 135 K/mm3 (150-450); RBC Distribution Width CV 15.2 % (11.6-14.6); RBC Distribution Width SD 60.4 fl (35.1-43.9); White Blood Count 4.4 K/mm3 (4.4-11.0)
[2022-11-08 17:03] LABS: Differential Indicated SCAN CRITERIA MET
[2022-11-08 17:05] LABS: ALB/GLOB Ratio 1.2 RATIO (0.9-2.4); AST(SGOT) 23 U/L (15-37); Alanine Aminotransfer ALT/SGPT 25 U/L (16-61); Albumin, Serum 3.7 g/dL (3.2-5.0); Alkaline Phosphatase 67 U/L (45-117); Anion Gap 7 (5-15); BUN 16 mg/dL (7-18); BUN/Creat Ratio 12.5 RATIO (10-20); Calcium,Total 8.9 mg/dL (8.5-10.1); Chloride 109 mmol/L (98-107); Creatinine, Serum 1.28 mg/dL (0.70-1.30); EST Glomerular Filtration Rate 57 mL/min (>60); Est Glom Filt Rate - Afr Amer 69 mL/min (>60); Globulin 3.1 g/dL (2.2-4.2); Glucose 108 mg/dL (74-106); Potassium 4.5 mmol/L (3.5-5.1); Protein, Total 6.8 g/dL (6.4-8.2); Sodium Level 144 mmol/L (136-145); Thyroid Stim Hormone (TSH) 1.88 uIU/mL (0.358-3.74)
== END | disposition home or self-care (01) ==
LOC: POLAB3 14:22
PROVIDERS: PCP Family Medicine Geriatric Medicine; Visit Provider Family Medicine Geriatric Medicine
DX: R53.83 Other fatigue (principal); E87.6 Hypokalemia; E55.9 Vitamin D deficiency, unspecified
CPT/HCPCS: 36415; 80053; 82306; 84443; 85025

== ENCOUNTER 2023-01-21 14:25 | Inpatient (IN) | payer MEDICARE, OTHER, SELFPAY ==
[2023-01-21] VITALS (7 sets, daily range): BP systolic 127–178; BP diastolic 71–106; PULSE 74–84; RESP 14–22; TEMP 36.7–37.7; O2SAT 94–96; BMI 38.5; BMI 38.8
--- NOTE | 2023-01-21 16:23 | EKG12_ITS ---
Test Reason : sob Blood Pressure : / mmHG Vent. Rate : 074 BPM Atrial Rate : 074 BPM P-R Int : 186 ms QRS Dur : 102 ms QT Int : 370 ms P-R-T Axes : 061 -05 077 degrees QTc Int : 410 ms Normal sinus rhythm Septal infarct , age undetermined Abnormal ECG Confirmed by ROSANNA HERNANDEZ, LATASHA ([id number]), graphics editor SIM MARIE ([id number]) on 01/22/2023 10:05:46 AM Referred By: Confirmed By:LATASHA MARTE MD
[2023-01-21] MEDS: Ipratropium/Albuterol Sulfate 3 ML AMPUL.NEB INHALATION (16:31)
[2023-01-21] MEDS: Albuterol 2.5 MG/3 ML VIAL.NEB. INHALATION (16:31)
--- NOTE | 2023-01-21 16:48 | ED.VIS.DYS ---
HPI <SULAIMAN Clay - Last Filed: 01/21/23 20:20> History of Present Illness Chief Complaint: Shortness of Breath Narrative Narrative: Patient presenting today due to shortness of breath, wheezing, chest congestion, sore throat, and a stuffy nose that he has had since . He reports that his chest feels sore from coughing. He tried to see his PCP today, Dr. Pan with the office was closed so he came in here for evaluation. He denies any fever, chills, abdominal pain, nausea, and vomiting. He denies any true lung conditions such as COPD or asthma. He denies any history of blood clots, recent surgery/procedures, and immobilization. 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(s), unspecified, with other forms of angina pectoris Atrial flutter Benign paroxysmal positional vertigo BPH (benign prostatic hyperplasia) CAD (coronary artery disease) Dizziness and giddiness Essential hypertension Fatigue GERD (gastroesophageal reflux disease) History of atrial fibrillation History of percutaneous transluminal coronary angioplasty Intermittent claudication Laceration of head Left carpal tunnel syndrome Left trigger finger Malignant pericardial effusion Nonrheumatic aortic (valve) insufficiency Nonrheumatic aortic (valve) stenosis Pain in left shoulder Pain in limb Palpitations Precordial chest pain Pressure injury of left buttock, stage 1 Prinzmetal angina Pure hypercholesterolemia Shortness of breath Vertigo Home Medications tamsulosin 0.4 mg capsule 0.4 mg PO DAILY URINE FLOW 03/06/16 [History Last Taken 05/10/19] atorvastatin 40 mg tablet 40 mg PO QHS cholesterol 06/26/18 [History Last Taken 05/10/19] aspirin 81 mg tablet,delayed release (Marisela Low Dose Aspirin) 81 mg PO DAILY heart health 07/04/18 [History Last Taken 05/10/19] omeprazole 40 mg capsule,delayed release 40 mg PO DAILY acid reflux 07/04/18 [History Last Taken 05/10/19] potassium chloride 20 mEq tablet,extended release 20 meq PO DAILY supplement 07/04/18 [History Last Taken 05/10/19] acetaminophen 500 mg tablet 1,000 mg (2 x 500 mg) PO Q6H PRN PRN Pain Score 1-10 #0 tabs 11/05/21 [Rx Last Taken Unknown] multivitamin 1 tab PO DAILY 04/15/22 [History Last Taken Unknown] ranolazine 1,000 mg tablet,extended release,12 hr 1,000 mg PO BID heart #180 tabs 07/19/22 [Rx Last Taken Unknown] nitroglycerin 0.4 mg sublingual tablet 0.4 mg sublingual Q5-15M PRN Chest Pain #25 tabs 08/31/22 [Rx Last Taken Unknown] furosemide 40 mg tablet 40 mg PO DAILY PRN edema 11/18/22 [History Last Taken Unknown] Allergy/AdvReac Type Severity Reaction Status Date / Time tramadol [From Ultram] AdvReac Other Verified 01/21/23 14:26 Family History Father CAD (coronary artery disease) CHF (congestive heart failure) Mother Heart disease Brother Diabetes Cancer Hx of CABG CAD (coronary artery disease) Sister COPD (chronic obstructive pulmonary disease) Diabetes Surgical History (Updated 01/21/23 @ 19:57 by Liam Easton) H/O cardiac radiofrequency ablation (~10/2006) H/O knee surgery H/O shoulder surgery H/O shoulder surgery History of arthroscopy (~07/2011) History of bilateral knee replacement History of carpal tunnel surgery History of left heart catheterization (LHC) (~09/2007) History of PTCA Hx of CABG (~05/2005) Status post total knee replacement, right Social History household members: none Smoking Status: Never smoker alcohol intake: never substance use type: does not use caffeine: No what type of physical activity do you participate in: none seatbelt use: always do you feel safe at home: Yes ROS <SULAIMAN Clay - Last Filed: 01/21/23 20:20> ROS ED Constitutional Constitutional ED: Denies chills or fever(s) Eyes Eyes: Denies change in vision ENT ENT ED: Reports nasal congestion and sore throat Cardiovascular Cardiovascular: Denies chest pain or palpitations Respiratory/Chest Respiratory/Chest: Reports cough, dyspnea, dyspnea on exertion and wheezing Gastrointestinal Gastrointestinal: Denies abdominal pain, nausea or vomiting Genitourinary Genitourinary ED: Denies dysuria, hematuria or urinary urgency Musculoskeletal Musculoskeletal: Denies arthralgias or myalgias Integumentary Denies rash Neurologic Neurologic: Denies weakness EXAM <SULAIMAN Clay - Last Filed: 01/21/23 20:20> Physical Exam Const Vital Signs: 01/21/23 14:26 01/21/23 15:28 01/21/23 16:13 Temperature 98.1 F 98.3 F Temperature Source Temporal Temporal Pulse Rate 74 84 84 Respiratory Rate 14 22 H 22 H Respiratory Effort Respiratory Depth Respiratory Pattern Blood Pressure 154/106 H 178/81 H 178/81 H Blood Pressure Mean 122 113 113 Pulse Ox 96 96 Oxygen Delivery Method Room Air Room Air Room Air 01/21/23 16:44 01/21/23 16:45 01/21/23 16:33 Temperature Temperature Source Pulse Rate 79 Respiratory Rate 22 H Respiratory Effort Short of Breath Accessory Muscle Use Respiratory Depth Shallow Respiratory Pattern Tachypnea Tachypnea Blood Pressure Blood Pressure Mean Pulse Ox Oxygen Delivery Method Room Air Positive well nourished, well developed and no apparent distress General Appearance ED: well developed HEENT Reports normocephalic, head/scalp atraumatic and TM's clear HEENT Narrative: Posterior pharynx without erythema, uvula midline, no tonsillar exudate Tympanic Membrane ED: Yes TM's clear bilateral Mouth ED: Yes moist mucous membranes normal Eyes PERRL and EOMs intact bilaterally Neck full ROM and supple Chest Wall inspection of chest normal Resp normal respiratory effort and clear to auscultation bilaterally Cardio regular rate and regular rhythm GI soft to palpation, non-tender, non-distended and no masses Back/Spine normal ROM and normal to inspection Extremity normal to inspection and full ROM Neuro oriented x3, CN's II-XII intact bilaterally, moves all extremities, no focal motor deficits and no sensory deficits noted Sensorium / Orientation: awake and alert Psych mental status grossly normal and thought process normal Skin no rashes or lesions noted and no wounds <Dr. Catie Carballo DO - Last Filed: 01/21/23 23:13> Physical Exam Const Vital Signs: 01/21/23 14:26 01/21/23 15:28 01/21/23 16:13 Temperature 98.1 F 98.3 F Temperature Source Temporal Temporal Pulse Rate 74 84 84 Respiratory Rate 14 22 H 22 H Respiratory Effort Respiratory Depth Respiratory Pattern Blood Pressure 154/106 H 178/81 H 178/81 H Blood Pressure Mean 122 113 113 Pulse Ox 96 96 Oxygen Delivery Method Room Air Room Air Room Air 01/21/23 16:44 01/21/23 16:45 01/21/23 16:33 Temperature Temperature Source Pulse Rate 79 Respiratory Rate 22 H Respiratory Effort Short of Breath Accessory Muscle Use Respiratory Depth Shallow Respiratory Pattern Tachypnea Tachypnea Blood Pressure Blood Pressure Mean Pulse Ox Oxygen Delivery Method Room Air MDM <SULAIMAN Clay - Last Filed: 01/21/23 20:20> [facility] MDM Narrative Medical decision making narrative: Patient presenting today due to feeling slightly short of breath, nasal congestion, chest congestion, sore throat that he has had since . He is well-appearing and in stress, he is 96% O2 on room air and does not appear short of breath. He is afebrile. Labs will be obtained to rule out leukocytosis, anemia electrolyte abnormality, and ACS. Chest x-ray will be obtained to rule out pneumonia and other cardiopulmonary abnormality and is negative. COVID and flu swabs will be obtained and patient does have COVID. Troponin was WNL and labs are at baseline for patient. Although he does not sound wheezy on exam, he will be given breathing treatments As they have helped him in the past. The nurse did go to ambulate patient and his O2 dropped to 84% on room air, patient reports that he is feeling weak. Given this, I will speak to the hospitalist regarding admission for patient. He will be given IV fluids and a dose of Decadron here. He will be admitted in stable condition and is comfortable with plan. Lab Data Attestation: I reviewed the patient's lab results. Labs: Laboratory Results - last 24 hr 01/21/23 16:45 WBC 6.3 RBC 3.32 L Hgb 12.0 L Hct 36.4 L MCV 109.6 H MCH 36.1 H MCHC 33.0 RDW Std Deviation 63.9 H RDW Coeff of Brigitte 15.7 H Plt Count 115 L MPV 12.1 H Immature Gran % (Auto) 0.300 Neut % (Auto) 70.7 H Lymph % (Auto) 4.4 L [place] % (Auto) 22.6 H Eos % (Auto) 1.7 Baso % (Auto) 0.3 Absolute Neuts (auto) 4.5 Absolute Lymphs (auto) 0.28 L Nucleated RBC % 0 Differential Comment SCANNED PT 14.9 INR 1.2 Fibrinogen 390 D-Dimer Quant (PE/DVT) 1.80 H* Sodium 138 Potassium 4.3 Chloride 106 Carbon Dioxide 28.0 Anion Gap 4 L BUN 17 Creatinine 1.37 H Estim Creat Clear Calc 39.42 Est GFR (MDRD) Af Amer 64 Est GFR (MDRD) Non-Af 53 L BUN/Creatinine Ratio 12.4 Glucose 104 Calcium 8.6 Lactate Dehydrogenase 182 Troponin I High Sens 16 C-React Prot Ext Range 68.60 H Radiography X-Ray: Read by ED Physician and Read by Radiologist Diagnostic Testing: Clinical Impression(s) from Imaging Studies Chest X-Ray 01/21/23 16:50 IMPRESSION: No acute disease Electronically Signed: Harsha Vizcarra MD at 17:03 EDT , EKG Initial EKG: Comments: 74 bpm, normal sinus rhythm, no ST elevation, reviewed and interpreted by attending ED physician. <Dr. Catie Carballo, DO - Last Filed: 01/21/23 23:13> [facility] Narrative Medical decision making narrative: Patient presenting today due to feeling slightly short of breath, nasal congestion, chest congestion, sore throat that he has had since . He is well-appearing and in stress, he is 96% O2 on room air and does not appear short of breath. He is afebrile. Labs will be obtained to rule out leukocytosis, anemia electrolyte abnormality, and ACS. Chest x-ray will be obtained to rule out pneumonia and other cardiopulmonary abnormality and is negative. COVID and flu swabs will be obtained and patient does have COVID. Troponin was WNL and labs are at baseline for patient. Although he does not sound wheezy on exam, he will be given breathing treatments As they have helped him in the past. The nurse did go to ambulate patient and his O2 dropped to 84% on room air, patient reports that he is feeling weak. Given this, I will speak to the hospitalist regarding admission for patient. He will be given IV fluids and a dose of Decadron here. He will be admitted in stable condition and is comfortable with plan. I have personally performed a face to face assessment of the patient and have reviewed the KAMALA Note. I performed a substantive portion of the visit including all aspects of the following. My weinstein findings include: History is patient is 87-year-old male presenting with 2 to 3 days of URI symptoms. He is some chest tightness and cough. He states he is feels very weak. Suspect he has some type of URI. He does not have a leukocytosis or acute infiltrate on his chest x-ray. X-ray to read myself as well as radiology. Patient is COVID-positive. This likely explains his presentation. He is ambulated and dropped pretty quickly to 84% on room air. Because of this will be admitted. Is started on Decadron in the ER. Patient agreeable with this plan of care. Is given IV fluid and Tylenol for further symptoms in the emergency room. Other additions or changes: [None] Lab Data Labs: Laboratory Results - last 24 hr 01/21/23 16:45 WBC 6.3 RBC 3.32 L Hgb 12.0 L Hct 36.4 L MCV 109.6 H MCH 36.1 H MCHC 33.0 RDW Std Deviation 63.9 H RDW Coeff of Brigitte 15.7 H Plt Count 115 L MPV 12.1 H Immature Gran % (Auto) 0.300 Neut % (Auto) 70.7 H Lymph % (Auto) 4.4 L [place] % (Auto) 22.6 H Eos % (Auto) 1.7 Baso % (Auto) 0.3 Absolute Neuts (auto) 4.5 Absolute Lymphs (auto) 0.28 L Nucleated RBC % 0 Differential Comment SCANNED PT 14.9 INR 1.2 Fibrinogen 390 D-Dimer Quant (PE/DVT) 1.80 H* Sodium 138 Potassium 4.3 Chloride 106 Carbon Dioxide 28.0 Anion Gap 4 L BUN 17 Creatinine 1.37 H Estim Creat Clear Calc 39.42 Est GFR (MDRD) Af Amer 64 Est GFR (MDRD) Non-Af 53 L BUN/Creatinine Ratio 12.4 Glucose 104 Calcium 8.6 Lactate Dehydrogenase 182 Troponin I High Sens 16 C-React Prot Ext Range 68.60 H Radiography Chest X-Ray - ED: 1 View Diagnostic Testing: Clinical Impression(s) from Imaging Studies Chest X-Ray 01/21/23 16:50 IMPRESSION: No acute disease Electronically Signed: Harsha Vizcarra MD at 17:03 EDT Reading Location ID and State: [address] [place] [address] , Service support , Discharge Plan Dx/Rx/DC Orders Clinical Impression: COVID-19, SOB (shortness of breath), Weakness, Hypoxia Disposition Disposition: Acute Care Hospital [facility] Discharge Date/Time: 01/21/23 18:57
--- NOTE | 2023-01-21 16:50 | RAD_ITS ---
STUDY: X-RAY CHEST REASON FOR EXAM: Male, 87 years old. shortness of breath TECHNIQUE: Single frontal view of the chest. COMPARISON: October 27, 2021 FINDINGS: Sternotomy wires. The lungs are clear and expanded. There is no demonstrated pleural abnormality. Cardiomegaly. Normal mediastinum and francis. Normal visualized pulmonary arteries. Normal visualized aortic arch and descending thoracic aorta. Kyphosis. Slight anterior wedging mid thoracic vertebral bodies. Normal visualized ribs, clavicles, and shoulders. There is no demonstrated abnormality of the visualized soft tissue structures of the upper abdomen. RAD/Chest PA and Lateral IMPRESSION: No acute disease Electronically Signed: Harsha Vizcarra MD at 17:03 EDT ,
[2023-01-21 16:59] LABS: Absolute Lymphocyte Count 0.28 X10^3/uL (0.83-4.51); Absolute Neutrophil Count 4.5 X10^3/uL (2.0-7.7); Basophil# 0.02 X10^3/uL; Basophil% 0.3 % (0-1); Eosinophil# 0.11 X10^3/uL; Eosinophils% 1.7 % (0-5); Hematocrit 36.4 % (40-54); Lymphocyte # 0.28 X10^3/ul (0.83-4.51); Lymphocyte % 4.4 % (19-41); Mean Corpuscular Hgb 36.1 pg (27.0-32.0); Mean Corpuscular Volume 109.6 fL (80-94); Mean Platelet Vol. 12.1 fl (6.2-12.0); Monocyte# 1.43 X10^3/uL; Monocyte% 22.6 % (0-10); NRBC Flagged by Analyzer 0 % (0-5); Neutrophil # 4.48 X10^3/uL (2.7-7.7); Neutrophil % 70.7 % (47-70); POSITIVE DIFFERENTIAL YES; Platelet Count 115 K/mm3 (150-450); RBC Distribution Width CV 15.7 % (11.6-14.6); RBC Distribution Width SD 63.9 fl (35.1-43.9); Red Blood Count 3.32 M/mm3 (4.6-6.2); White Blood Count 6.3 K/mm3 (4.4-11.0)
[2023-01-21 17:06] LABS: Differential Indicated SCAN CRITERIA MET
[2023-01-21 17:09] LABS: Anion Gap 4 (5-15); BUN 17 mg/dL (7-18); BUN/Creat Ratio 12.4 RATIO (10-20); Calcium,Total 8.6 mg/dL (8.5-10.1); Chloride 106 mmol/L (98-107); Creatinine, Serum 1.37 mg/dL (0.70-1.30); EST Glomerular Filtration Rate 53 mL/min (>60); Est Glom Filt Rate - Afr Amer 64 mL/min (>60); Estimated Creatinine Clearance 39.42 ml/min; Glucose 104 mg/dL (74-106); Potassium 4.3 mmol/L (3.5-5.1); Sodium Level 138 mmol/L (136-145); Troponin-I HS 16 pg/mL (3.0-78.0)
[2023-01-21 17:27] LABS: Differential Comment SCANNED
[2023-01-21] MEDS: Acetaminophen 325 MG Tablet 650 MG PO (18:14)
--- NOTE | 2023-01-21 18:16 | HP.PCM_ITS ---
HPI - General General Date of Admission: 01/21/23 Date of Service: 01/21/23 Chief Complaint: shortness of breath HPI Narrative ISA MILES, is a 87 M with a PMh as outlined who presents via the ED on 01/21/2023 with a complaint of shortness of breath which started 1 day prior to admission. HE had associated cough and pleuritic ches tpain. He admitted to congestion, sore throat and stuffy nostrils. He denied any fever, chills, palpitations, dizziness, nausea, vomiting or any other symptoms. Review of systems was otherwise negative. Vitals in the ED were temp of 98.3F, NV of 79, RR of 22 and BP of 178/81/ He was on room air. CBC was unremarkable and showed wbc of 6.3 and hb of 12 as well as platelets of 115. Chemistry was unremarkable apart from Cr of 1.37 and CXR showed no acute cardiopulmonary process. EKG showed no acute ST changes. COVID test was positive. He was on room air but with ambulation in the ED his saturation dropped down to 84%. He has been admitted to be managed for hypoxia due to COVID-19 infection. 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(s), unspecified, with other forms of angina pectoris Atrial flutter Benign paroxysmal positional vertigo BPH (benign prostatic hyperplasia) CAD (coronary artery disease) Dizziness and giddiness Essential hypertension Fatigue GERD (gastroesophageal reflux disease) History of atrial fibrillation History of percutaneous transluminal coronary angioplasty Intermittent claudication Laceration of head Left carpal tunnel syndrome Left trigger finger Malignant pericardial effusion Nonrheumatic aortic (valve) insufficiency Nonrheumatic aortic (valve) stenosis Pain in left shoulder Pain in limb Palpitations Precordial chest pain Pressure injury of left buttock, stage 1 Prinzmetal angina Pure hypercholesterolemia Shortness of breath Vertigo Home Medications tamsulosin 0.4 mg capsule 0.4 mg PO DAILY URINE FLOW 03/06/16 [History Last Taken 05/10/19] atorvastatin 40 mg tablet 40 mg PO QHS cholesterol 06/26/18 [History Last Taken 05/10/19] aspirin 81 mg tablet,delayed release (Marisela Low Dose Aspirin) 81 mg PO DAILY [facility] 07/04/18 [History Last Taken 05/10/19] omeprazole 40 mg capsule,delayed release 40 mg PO DAILY acid reflux 07/04/18 [History Last Taken 05/10/19] potassium chloride 20 mEq tablet,extended release 20 meq PO DAILY supplement 07/04/18 [History Last Taken 05/10/19] acetaminophen 500 mg tablet 1,000 mg (2 x 500 mg) PO Q6H PRN PRN Pain Score 1-10 #0 tabs 11/05/21 [Rx Last Taken Unknown] multivitamin 1 tab PO DAILY 04/15/22 [History Last Taken Unknown] ranolazine 1,000 mg tablet,extended release,12 hr 1,000 mg PO BID heart #180 tabs 07/19/22 [Rx Last Taken Unknown] nitroglycerin 0.4 mg sublingual tablet 0.4 mg sublingual Q5-15M PRN Chest Pain #25 tabs 08/31/22 [Rx Last Taken Unknown] furosemide 40 mg tablet 40 mg PO DAILY PRN edema 11/18/22 [History Last Taken Unknown] Allergy/AdvReac Type Severity Reaction Status Date / Time tramadol [From Ultram] AdvReac Other Verified 01/21/23 14:26 Family History Father CAD (coronary artery disease) CHF (congestive heart failure) Mother Heart disease Brother Diabetes Cancer Hx of CABG CAD (coronary artery disease) Sister COPD (chronic obstructive pulmonary disease) Diabetes Surgical History H/O cardiac radiofrequency ablation (~10/2006) History of arthroscopy (~07/2011) History of bilateral knee replacement History of carpal tunnel surgery History of left heart catheterization (LHC) (~09/2007) History of PTCA Hx of CABG (~05/2005) Status post total knee replacement, right Social History household members: none Smoking Status: Never smoker alcohol intake: never substance use type: does not use caffeine: No what type of physical activity do you participate in: none seatbelt use: always do you feel safe at home: Yes ROS Constitutional Constitutional: Reports chills, fatigue, malaise and weakness; Denies anorexia or fever(s) Eyes Eyes: Denies change in vision ENT HEENT: Reports headache(s), nasal congestion and nasal discharge; Denies dysphagia Cardiovascular Cardiovascular: Reports chest pain; Denies edema, orthopnea, palpitations, paroxysmal nocturnal dyspnea or syncope Respiratory/Chest Respiratory/Chest: Reports cough, shortness of breath at rest, shortness of breath with exertion and wheezing Gastrointestinal Gastrointestinal: Denies abdominal pain, constipation, diarrhea, nausea or vomiting Genitourinary Genitourinary: Denies dysuria Musculoskeletal Musculoskeletal: Denies back pain or joint pain Integumentary Integumentary: Denies jaundice Neurologic Neurologic: Denies confusion, dizziness, focal weakness, headache(s), numbness or seizures Endocrine Endocrinology: Denies change in body appearance Vital Signs Vital Signs Vital Signs: 01/21/23 14:26 01/21/23 15:28 01/21/23 16:13 Temperature 98.1 F 98.3 F Temperature Source Temporal Temporal Pulse Rate 74 84 84 Respiratory Rate 14 22 H 22 H Respiratory Effort Respiratory Depth Respiratory Pattern Blood Pressure 154/106 H 178/81 H 178/81 H Blood Pressure Mean 122 113 113 Pulse Ox 96 96 Oxygen Delivery Method Room Air Room Air Room Air 01/21/23 16:44 01/21/23 16:45 01/21/23 16:33 Temperature Temperature Source Pulse Rate 79 Respiratory Rate 22 H Respiratory Effort Short of Breath Accessory Muscle Use Respiratory Depth Shallow Respiratory Pattern Tachypnea Tachypnea Blood Pressure Blood Pressure Mean Pulse Ox Oxygen Delivery Method Room Air Weight Weight: 261 lb Body Mass Index (BMI) 38.5 Physical Exam Const alert, oriented x3 and no apparent distress HEENT normocephalic, head/scalp atraumatic, moist oral mucous membranes and oropharynx normal Eyes PERRL and EOMs intact bilaterally Neck no lymphadenopathy, supple and no JVD Lymph Lymphatic: no lymphadenopathy noted and no lymphedema noted Resp Resp Narrative: mildly diminished breath sounds bibasally, no wheezes or crackles. On room air. Cardio regular rate, regular rhythm, S1 normal heart sound, S2 normal heart sound and no murmurs GI normal to inspection, nondistended, normoactive bowel sounds, soft to palpation, non-tender and non-distended Extremity normal capillary refill, no clubbing, cyanosis or edema and no calf tenderness Skin General Skin Exam: no breakdown Neuro CN's II-XII intact bilaterally, no focal motor deficits, no sensory deficits not ed and deep tendon reflexes 2+ bilaterally Psych thought process normal and cooperative Appearance: appropriate Results Lab / Micro Data 01/21/23 16:45 01/21/23 16:45 Labs: Laboratory Results - last 24 hr 01/21/23 16:45: WBC 6.3, RBC 3.32 L, Hgb 12.0 L, Hct 36.4 L, MCV 109.6 H, MCH 36.1 H, MCHC 33.0, RDW Std Deviation 63.9 H, RDW Coeff of Brigitte 15.7 H, Plt Count 115 L, MPV 12.1 H, Immature Gran % (Auto) 0.300, Neut % (Auto) 70.7 H, Lymph % (Auto) 4.4 L, [place] % (Auto) 22.6 H, Eos % (Auto) 1.7, Baso % (Auto) 0.3, Absolute Neuts (auto) 4.5, Absolute Lymphs (auto) 0.28 L, Nucleated RBC % 0, Differential Comment SCANNED, Sodium 138, Potassium 4.3, Chloride 106, Carbon Dioxide 28.0, Anion Gap 4 L, BUN 17, Creatinine 1.37 H, Estim Creat Clear Calc 39.42, Est GFR (MDRD) Af Amer 64, Est GFR (MDRD) Non-Af 53 L, BUN/Creatinine Ratio 12.4, Glucose 104, Calcium 8.6, Troponin I High Sens 16 Micro: Microbiology 01/21/23 16:45 Nasal Secretion SARS-CoV-2 & FLU Antigen (Rapid) - Final SARS-CoV-2 (COVID 19) Radiology Impression Chest X-Ray 01/21/23 16:50 IMPRESSION: No acute disease Electronically Signed: Harsha Vizcarra MD at 17:03 EDT Reading Location ID and State: [facility] / [place] , Service support , Assessment & Plan Assessment/Plan (1) COVID: (2) Hypoxia: PLAN: Plan #HYpoxia due to covid 19 infection * Admit to [facility]. * On room air but desaturated to 84% with ambulation. * COVID test positive. Chest x-ray showed no acute cardiopulmonary process. * Hydrate gently with IV fluids. Started on p.o. Decadron 6 mg daily to complete a 10-day course. * Hold on remdesivir for now as he is on room air. * Breathing treatments and bronchodilators. Titrate oxygen as needed to maintain saturation above 90%. * Will check D-dimer * #Elevated creatinine: Creatinine is 1.37 with a baseline of around 1. Hydrate gently with IV fluids. Should improve with fluids. #BPH: On Flomax #CAD s/p CABG: On aspirin and high intensity statin as well as ranolazine DVT prophylaxis: Lovenox CODE STATUS:full code * Patient and son counseled extensively about different types of CODE STATUS including full code, DNR CCA and DNR CCA. Patient elects to be full code. * Total dkoh-iq-inow time 16 minutes. Charges/Coding Visit Charges Inpatient E&M: 79519 Init Hosp L2 Procedures Hospitalists Procedures: 86878 Advncd Care Plan 30 Min
[2023-01-21] MEDS: dexAMETHasone 10 MG/ML Vial 6 MG IV (18:30)
[2023-01-21 19:51] LABS: LDH 182 U/L (87-241)
[2023-01-21] MEDS: Acetaminophen 500 MG Tablet 1000 MG PO (20:19)
[2023-01-21 20:20] LABS: International Normalized Ratio 1.2; Prothrombin Time (Protime)PT. 14.9 SECONDS (11.7-14.9)
[2023-01-21 20:21] LABS: Fibrinogen 390 mg/dl (203-444)
--- NOTE | 2023-01-21 20:23 | CT_ITS ---
STUDY: CTA CHEST REASON FOR EXAM: Male, 87 years old. suspected pe, elevated dimer RADIATION DOSAGE (If Supplied By Facility): CTDIvol = ( 23.05 ) mGy, DLP = ( 733.81 ) mGycm TECHNIQUE: The examination was performed with the intravenous administration of IV 100mL Isovue-370. Post-processing of the angiographic images was performed, with multiplanar reformation and 3D reconstruction. Individualized dose optimization techniques were used for this CT. COMPARISON: Chest x-ray from today. CTA chest October 29, 2015.. FINDINGS: Normal enhancement of the main pulmonary artery and right and left pulmonary arteries. Normal enhancement of the bilateral peripheral pulmonary arteries. There is no demonstrated pulmonary embolism. Normal thoracic aorta and visualized great vessels. There is no demonstrated aortic dissection. Cardiomegaly. Calcific coronary artery disease. Calcific aortic valve disease. Mediastinal vascular clips. Normal mediastinum. Normal hilar regions. Normal visualized trachea and bronchi. Increased bibasilar interstitial markings. Normal pulmonary parenchyma. Normal pleura. Normal chest wall structures. Normal osseous structures. Normal visualized upper abdomen. CT/CTA Chest W/WO Contrast IMPRESSION: Increased bibasilar interstitial markings/or infiltrates. Aortic valve disease. Status post CABG. Cardiomegaly. Electronically Signed: Harsha Vizcarra MD at 22:40 EDT ,
--- NOTE | 2023-01-21 20:24 | PCM.HOSP.N ---
Hospitalist Note D-dimer 1.8, CTA chest ordered, renal function with CrCl > 30.
[2023-01-21] MEDS: 0.9% Normal Saline 1,000 ML 100 ML IV (20:25)
[2023-01-21] MEDS: guaiFENesin 10 ML UDC (200MG/10ML) 20 ML PO (20:26)
[2023-01-21 21:04] LABS: Lactic Acid 1.3 mmol/L (0.4-1.9)
[2023-01-21 21:09] LABS: Procalcitonin 0.06 ng/mL (0.00-0.09)
[2023-01-21] MEDS: Ranolazine 500 MG Tablet 1000 MG PO (22:17)
[2023-01-21] MEDS: Atorvastatin Calcium 40 MG Tablet PO (22:18)
[2023-01-22] VITALS (11 sets, daily range): BP systolic 115–145; BP diastolic 61–84; PULSE 58–67; RESP 16; TEMP 36.4–36.6; O2SAT 91–98
[2023-01-22] MEDS: MELATONIN 3 MG TABLET PO ×2 (01:17→22:12)
[2023-01-22 06:59] LABS: Absolute Lymphocyte Count 0.29 X10^3/uL (0.83-4.51); Absolute Neutrophil Count 4.3 X10^3/uL (2.0-7.7); Basophil# 0.01 X10^3/uL; Basophil% 0.2 % (0-1); Hematocrit 33.7 % (40-54); Hemoglobin 11.3 g/dL (13.0-16.5); Lymphocyte # 0.29 X10^3/ul (0.83-4.51); Lymphocyte % 5.9 % (19-41); Mean Corp Hgb Conc 33.5 g/dL (32-36); Mean Corpuscular Hgb 35.9 pg (27.0-32.0); Mean Platelet Vol. 11.9 fl (6.2-12.0); Monocyte# 0.33 X10^3/uL; Monocyte% 6.7 % (0-10); NRBC Flagged by Analyzer 0 % (0-5); Neutrophil # 4.28 X10^3/uL (2.7-7.7); Neutrophil % 86.6 % (47-70); POSITIVE DIFFERENTIAL YES; Platelet Count 105 K/mm3 (150-450); RBC Distribution Width CV 15.5 % (11.6-14.6); RBC Distribution Width SD 61.3 fl (35.1-43.9); Red Blood Count 3.15 M/mm3 (4.6-6.2); White Blood Count 4.9 K/mm3 (4.4-11.0)
[2023-01-22 07:01] LABS: Differential Indicated SCAN CRITERIA MET
[2023-01-22 07:21] LABS: Differential Comment SCANNED
[2023-01-22 07:39] LABS: Anion Gap 4 (5-15); BUN 16 mg/dL (7-18); Calcium,Total 8.6 mg/dL (8.5-10.1); Chloride 111 mmol/L (98-107); Creatinine, Serum 1.07 mg/dL (0.70-1.30); EST Glomerular Filtration Rate 70 mL/min (>60); Est Glom Filt Rate - Afr Amer 85 mL/min (>60); Estimated Creatinine Clearance 50.47 ml/min; Glucose 167 mg/dL (74-106); Potassium 4.2 mmol/L (3.5-5.1); Sodium Level 139 mmol/L (136-145)
[2023-01-22] MEDS: dexAMETHasone 4 MG Tablet 6 MG PO (08:36)
[2023-01-22] MEDS: Pantoprazole Sodium 40 MG Tablet PO (08:36)
[2023-01-22] MEDS: Potassium Chloride Oral Tablet 20 MEQ PO (08:36)
[2023-01-22] MEDS: Aspirin E.C. 81 MG Tablet PO (08:36)
[2023-01-22] MEDS: Ranolazine 500 MG Tablet 1000 MG PO ×2 (08:36→22:12)
[2023-01-22] MEDS: Enoxaparin 40 MG/0.4 ML Syringe SC (08:37)
[2023-01-22] MEDS: Multivitamins,Therapeutic Tablet 1 TABLET PO (08:37)
[2023-01-22] MEDS: Acetaminophen 500 MG Tablet 1000 MG PO ×2 (08:47→22:12)
[2023-01-22] MEDS: Ensure Plus High Protein 120 ML LIQUID PO ×3 (08:47→17:04)
[2023-01-22] MEDS: guaiFENesin 10 ML UDC (200MG/10ML) 20 ML PO ×2 (08:48→22:13)
--- NOTE | 2023-01-22 11:01 | PN_ITS ---
Subjective Subjective Patient seen and examined. He said he felt much better today. He complains of a sore throat, but denies any fever, chills, cough, chest pain, palpitations, dizziness, nausea, vomiting or diarrhea. Review of systems is otherwise negative. Objective Data Objective Data Vital Signs: Vital Signs Temp Pulse Resp BP Pulse Ox O2 Del Method 97.6 F L 66 16 145/84 H 91 Room Air 01/22/23 08:52 01/22/23 09:50 01/22/23 08:52 01/22/23 08:52 01/22/23 10:20 01/22/23 08:52 Oxygen Delivery Method Room Air Weight: 263 lb 3.2 oz Body Mass Index (BMI) 38.8 Intake & Output: Intake and Output for Last 24 Hours 01/20/23 01/21/23 01/22/23 23:59 23:59 23:59 Intake Total 500 / 500 1400 / 1400 Output Total 1600 / 1600 Balance 500 / 500 -200 / -200 Lab / Micro Data 01/22/23 06:45 01/22/23 06:45 Labs: Laboratory Results - last 24 hr 01/21/23 16:45: WBC 6.3, RBC 3.32 L, Hgb 12.0 L, Hct 36.4 L, MCV 109.6 H, MCH 36.1 H, MCHC 33.0, RDW Std Deviation 63.9 H, RDW Coeff of Brigitte 15.7 H, Plt Count 115 L, MPV 12.1 H, Immature Gran % (Auto) 0.300, Neut % (Auto) 70.7 H, Lymph % (Auto) 4.4 L, [place] % (Auto) 22.6 H, Eos % (Auto) 1.7, Baso % (Auto) 0.3, Absolute Neuts (auto) 4.5, Absolute Lymphs (auto) 0.28 L, Nucleated RBC % 0, Differential Comment SCANNED, PT 14.9, INR 1.2, Fibrinogen 390, D-Dimer Quant (PE/DVT) 1.80 H*, Sodium 138, Potassium 4.3, Chloride 106, Carbon Dioxide 28.0, Anion Gap 4 L, BUN 17, Creatinine 1.37 H, Estim Creat Clear Calc 39.42, Est GFR (MDRD) Af Amer 64, Est GFR (MDRD) Non-Af 53 L, BUN/Creatinine Ratio 12.4, Glucose 104, Calcium 8.6, Lactate Dehydrogenase 182, Troponin I High Sens 16, C- React Prot Ext Range 68.60 H 01/21/23 20:18: Lactic Acid 1.3, Procalcitonin 0.06 01/22/23 06:45: WBC 4.9, RBC 3.15 L, Hgb 11.3 L, Hct 33.7 L, MCV 107.0 H, MCH 35.9 H, MCHC 33.5, RDW Std Deviation 61.3 H, RDW Coeff of Brigitte 15.5 H, Plt Count 105 L, MPV 11.9, Immature Gran % (Auto) 0.600, Neut % (Auto) 86.6 H, Lymph % (Auto) 5.9 L, [place] % (Auto) 6.7, Eos % (Auto) 0.0, Baso % (Auto) 0.2, Absolute Neuts (auto) 4.3, Absolute Lymphs (auto) 0.29 L, Nucleated RBC % 0, Differential Comment SCANNED, Sodium 139, Potassium 4.2, Chloride 111 H, Carbon Dioxide 24.0, Anion Gap 4 L, BUN 16, Creatinine 1.07, Estim Creat Clear Calc 50.47, Est GFR (MDRD) Af Amer 85, Est GFR (MDRD) Non-Af 70, BUN/Creatinine Ratio 15.0, Glucose 167 H, Calcium 8.6 Micro: Microbiology 01/21/23 16:45 Nasal Secretion SARS-CoV-2 & FLU Antigen (Rapid) - Final SARS-CoV-2 (COVID 19) Radiography Diagnostic Testing: Radiology Impression Chest X-Ray 01/21/23 16:50 IMPRESSION: No acute disease Electronically Signed: Harsha Vizcarra MD at 17:03 EDT Reading Location ID and State: [employer] / [place] , Service support , Chest CTA 01/21/23 20:23 IMPRESSION: Increased bibasilar interstitial markings/or infiltrates. Aortic valve disease. Status post CABG. Cardiomegaly. Electronically Signed: Harsha Vizcarra MD at 22:40 EDT Reading Location ID and State: [facility] / [place] , Service support , Physical Exam Const alert, oriented x3 and no apparent distress General Appearance: cooperative and well developed HEENT normocephalic, head/scalp atraumatic, moist oral mucous membranes and oropharynx normal Eyes PERRL and EOMs intact bilaterally Neck no lymphadenopathy, supple, no JVD and thyroid normal Lymph Lymphatic: no lymphadenopathy noted and no lymphedema noted Resp Resp Narrative: mildly diminished breath sounds bibasally, no wheezes or crackles. On room air. Cardio regular rate, regular rhythm, S1 normal heart sound, S2 normal heart sound and no murmurs GI normal to inspection, nondistended, normoactive bowel sounds, soft to palpation, non-tender and non-distended Extremity normal capillary refill, no clubbing, cyanosis or edema and no calf tenderness Skin General Skin Exam: no breakdown Neuro CN's II-XII intact bilaterally, no focal motor deficits, no sensory deficits noted and deep tendon reflexes 2+ bilaterally Psych thought process normal and cooperative Appearance: appropriate Assessment & Plan Assessment/Plan (1) COVID: (2) Hypoxia: PLAN: Plan #HYpoxia due to covid 19 infection * remains on room air * on decadron. no remdesivir as he is on rooom air. * D dimer was elevated, but CTA chest was negative for any evidence of PE * breathing treatment with bronchodilators. Titrate oxygen to maintain sats >90% * ambulated today and desaturated to 91% on room air, and was weak and dizzy in the process * * #Elevated creatinine: resolved. Cr is down to 1.07. #BPH: On Flomax #CAD s/p CABG: On aspirin and high intensity statin as well as ranolazine DVT prophylaxis: Lovenox CODE STATUS:full code * Charges/Coding Visit Charges Inpatient E&M: 49611 Subs Hosp L2
--- NOTE | 2023-01-22 11:56 | CASEMGMT ---
KACI NIELSEN [employer] CM spoke w/ patient for initial transition planning/care coordination assessment. KACI NIELSEN introduced self and role at [facility]. Pt voices understanding and consents to assessment at this time. Pt is A/O at this time and answers all questions appropriately. Care providers, pharmacy, and demographics verified/updated at this time. PCP: Dr Pan Specialists: [facility]/cardio Insurance: MCR, [employer] Prescription Benefit: Yes Living Will/HPOA: Has LW and HPOA, who is his son, Benjie Bustos Jr. LNOK: Son/POA, Benjie Lee. Daughter who lives [id number] Living Arrangements: Lives alone in one-story home w/ramp entrance. Indep w/ADL's and IADL's. Son lives in [place] and is supportive. Hires someone to clean and mow lawn. Transportation: Pt states drives still drives some. Son does most of the driving DME: States has the following DME: grab bars, hand-held shower, RTS, medical alert button, and nebulizer. Pt also has a cane and walker available to use, if needed. Has a shower chair and uses it on occasion. Pt has PAP from [facility], but [facility] does not use it. Pt does not have home O2. On RA currently and pulse ox was 91% w/ambulation today on RA. Do not anticipate pt will need O2 @ d/c. He states, if he would need O2, he has no preference of DME co. Pt states no need for further DME at this time. HHC/SNF: Hx [facility] and [facility]. Pt states he wishes to d/c home, states he feels will be safe @ home, and denies need for HHC. He was made aware, if once he returns home he changes his mind and is interested in HHC, to discuss this w/his PCP. He voices understanding. Pt voices no further concerns/needs at this time. PLAN: Home Dick SALOMON RN, CM
[2023-01-22] MEDS: Tamsulosin HCl 0.4 MG Capsule PO (17:04)
[2023-01-22] MEDS: Atorvastatin Calcium 40 MG Tablet PO (22:12)
[2023-01-23 03:08] VITALS: BP 139/79; PULSE 65; RESP 16; TEMP 36.4; O2SAT 96
[2023-01-23 06:37] LABS: Absolute Lymphocyte Count 0.42 X10^3/uL (0.83-4.51); Absolute Neutrophil Count 7.3 X10^3/uL (2.0-7.7); Hematocrit 35.3 % (40-54); Hemoglobin 11.9 g/dL (13.0-16.5); Lymphocyte # 0.42 X10^3/ul (0.83-4.51); Lymphocyte % 4.8 % (19-41); Mean Corp Hgb Conc 33.7 g/dL (32-36); Mean Corpuscular Hgb 36.1 pg (27.0-32.0); Mean Platelet Vol. 12.2 fl (6.2-12.0); Monocyte# 0.91 X10^3/uL; Monocyte% 10.5 % (0-10); NRBC Flagged by Analyzer 0 % (0-5); Neutrophil # 7.33 X10^3/uL (2.7-7.7); Neutrophil % 84.5 % (47-70); POSITIVE DIFFERENTIAL YES; Platelet Count 130 K/mm3 (150-450); RBC Distribution Width CV 15.5 % (11.6-14.6); RBC Distribution Width SD 61.2 fl (35.1-43.9); White Blood Count 8.7 K/mm3 (4.4-11.0)
[2023-01-23 06:47] LABS: Differential Indicated SCAN CRITERIA MET
[2023-01-23 06:49] LABS: Anion Gap 5 (5-15); BUN 24 mg/dL (7-18); BUN/Creat Ratio 21.2 RATIO (10-20); Calcium,Total 8.7 mg/dL (8.5-10.1); Chloride 110 mmol/L (98-107); Creatinine, Serum 1.13 mg/dL (0.70-1.30); EST Glomerular Filtration Rate 66 mL/min (>60); Est Glom Filt Rate - Afr Amer 79 mL/min (>60); Estimated Creatinine Clearance 47.79 ml/min; Glucose 153 mg/dL (74-106); Potassium 4.5 mmol/L (3.5-5.1); Sodium Level 139 mmol/L (136-145)
[2023-01-23 07:02] LABS: Differential Comment SCANNED
[2023-01-23 08:35] VITALS: O2SAT 97
[2023-01-23 08:36] VITALS: O2SAT 97
[2023-01-23 09:20] VITALS: BP 138/72; PULSE 72; RESP 18; TEMP 37.1; O2SAT 97
[2023-01-23] MEDS: dexAMETHasone 4 MG Tablet 6 MG PO (10:25)
[2023-01-23] MEDS: Potassium Chloride Oral Tablet 20 MEQ PO (10:26)
[2023-01-23] MEDS: Aspirin E.C. 81 MG Tablet PO (10:26)
[2023-01-23] MEDS: Ranolazine 500 MG Tablet 1000 MG PO (10:27)
[2023-01-23] MEDS: Pantoprazole Sodium 40 MG Tablet PO (10:28)
[2023-01-23] MEDS: Multivitamins,Therapeutic Tablet 1 TABLET PO (10:28)
[2023-01-23] MEDS: Ensure Plus High Protein 120 ML LIQUID PO ×2 (10:28→12:13)
[2023-01-23 11:50] VITALS: BP 141/81; PULSE 63; RESP 16; TEMP 36.6; O2SAT 96
--- NOTE | 2023-01-23 11:52 | DCINST_ITS ---
Discharge Instructions Diet Discharge Diet: Low fat / Low cholesterol Activity Discharge Activity: Return to Normal Activity Weight Bearing Status: Weight bearing as tolerated Dressing / Incision Call your doctor if you observe: Fever of 101 or Higher, Shortness of breath, Dizziness, Swelling in the ankles and Chest pain Follow Up Care Test Results: Test results from this visit will be discussed in further detail at your follow- up appointment, if applicable. Discharge Plan Admission Admit Date/Time: 01/21/23 18:25 Primary Reason for Your Visit: covid 19 infection Attending Provider: Jane Snider Primary Care Provider: [facility] Instructions Patient Instructions: Coronavirus Disease 2019 (COVID-19): Overview Additional Instructions / Restrictions: eliquis prescribed for 2 weeks due to increased risk of blood clots with COVID and elevated d dimer. If you notice any blood in your stool or urine or cough up any blood, or have any falls at home, please stop eliquis immediately and call your PCP. Discharge Orders/Prescriptions Prescriptions: New dexamethasone 6 mg tablet 6 mg PO DAILY Qty: 8 0RF Eliquis 2.5 mg tablet 2.5 mg PO BID Qty: 28 0RF Continued aspirin [Marisela Low Dose Aspirin] 81 mg tablet,delayed release (DR/EC) 81 mg PO DAILY omeprazole 40 mg capsule,delayed release(DR/EC) 40 mg PO DAILY potassium chloride 20 mEq tablet extended release 20 meq PO DAILY multivitamin Tablet 1 tab PO DAILY tamsulosin 0.4 MG capsule 0.4 mg PO DAILY acetaminophen 500 mg Tablet 1,000 mg PO Q6H PRN PRN (Reason: Pain Score 1-10) Qty: 0 0RF atorvastatin 40 mg tablet 40 mg PO QHS ranolazine 1,000 mg tablet extended release 12 hr 1,000 mg PO BID Qty: 180 3RF nitroglycerin 0.4 mg tablet, sublingual 0.4 mg SUBLINGUAL Q5-15M PRN (Reason: Chest Pain) Qty: 25 3RF furosemide 40 mg tablet 40 mg PO DAILY PRN (Reason: edema) Referrals / Follow Up: [facility], MD [Primary Care Provider] - Within 1 Week Disposition Disposition (needs filled in before D/C Order can be placed): Home, Self Care
--- NOTE | 2023-01-23 11:57 | DS.PCM_ITS ---
Providers Date of Admission: 01/21/23 Date of Discharge: 01/23/23 Primary Care Physician: Dr. Kaiser Pan MD Reason For Visit: HYPOXIA DUE TO COVID 19 INFECTION Diagnosis Discharge Diagnosis (1) COVID: Status: Acute Code(s): U07.1 - COVID-19 (2) Hypoxia: Status: Acute Code(s): R09.02 - Hypoxemia Plan #HYpoxia due to covid 19 infection * remains on room air * on decadron. no remdesivir as he is on rooom air. * D dimer was elevated, but CTA chest was negative for any evidence of PE * breathing treatment with bronchodilators. Titrate oxygen to maintain sats >90% * ambulated today and desaturated to 91% on room air, and was weak and dizzy in the process * * #Elevated creatinine: resolved. Cr is down to 1.07. #BPH: On Flomax #CAD s/p CABG: On aspirin and high intensity statin as well as ranolazine DVT prophylaxis: Lovenox CODE STATUS:full code * Medications at Discharge Home Medications tamsulosin 0.4 mg capsule 0.4 mg PO DAILY URINE FLOW 03/06/16 atorvastatin 40 mg tablet 40 mg PO QHS cholesterol 06/26/18 aspirin 81 mg tablet,delayed release (Marisela Low Dose Aspirin) 81 mg PO DAILY heart health 07/04/18 omeprazole 40 mg capsule,delayed release 40 mg PO DAILY acid reflux 07/04/18 potassium chloride 20 mEq tablet,extended release 20 meq PO DAILY supplement 07/04/18 acetaminophen 500 mg tablet 1,000 mg (2 x 500 mg) PO Q6H PRN PRN Pain Score 1-10 #0 tabs 11/05/21 multivitamin 1 tab PO DAILY 04/15/22 ranolazine 1,000 mg tablet,extended release,12 hr 1,000 mg PO BID heart #180 tabs 07/19/22 nitroglycerin 0.4 mg sublingual tablet 0.4 mg sublingual Q5-15M PRN Chest Pain #25 tabs 08/31/22 furosemide 40 mg tablet 40 mg PO DAILY PRN edema 11/18/22 apixaban 2.5 mg tablet (Eliquis) 2.5 mg PO BID #28 tabs 01/23/23 dexamethasone 6 mg tablet 6 mg PO DAILY #8 tabs 01/23/23 Hospital Course Procedures None Summary of Care Provided Minutes Spent on Discharge: 48 Hospital Course: ISA MILES, is a 87 M with a PMh as outlined who presents via the ED on 01/21/2023 with a complaint of shortness of breath which started 1 day prior to admission. HE had associated cough and pleuritic ches tpain. He admitted to congestion, sore throat and stuffy nostrils. He denied any fever, chills, palpitations, dizziness, nausea, vomiting or any other symptoms. Review of systems was otherwise negative. Vitals in the ED were temp of 98.3F, ID of 79, RR of 22 and BP of 178/81/ He was on room air. CBC was unremarkable and showed wbc of 6.3 and hb of 12 as well as platelets of 115. Chemistry was unremarkable apart from Cr of 1.37 and CXR showed no acute cardiopulmonary process. EKG showed no acute ST changes. COVID test was positive. He was on room air but with ambulation in the ED his saturation dropped down to 84%. He was admitted to be managed for hypoxia due to COVID-19 infection. His D dimer was elevated, but CTA was negative for any evidence of PE. He was placed on decadron to complete a 10 day course. His shortness of breath improved and he felt much better. He remained stable and he had walking pulse ox on 01/23/2023 which showed that he didnt require any home oxygen. He remained stable and was discharged home on 01/23/2023. He is to follow up with his PCP within 1 week. He was discharged on an 8 day course of dexamethasone, and due to his elevated d dimer, he was given a script for PO eliquis 2.5mg bid for a 2 week course to decrease the risk of blood clots. Patient was counseled that if he had any rectal bleeding or so blood in his urine or coughed up blood or had any falls at home, he also stopped taking the Eliquis and call his PCP immediately and/or go to the emergency room. Patient seen and examined prior to discharge. He felt well and had no active complaints. Review of systems was otherwise negative. Labs and vitals reviewed. Home meds reviewed and reconciled. Physical Exam Const alert, oriented x3 and no apparent distress General Appearance: cooperative, comfortable, well kempt and well developed Orientation / Consciousness: awake HEENT normocephalic, head/scalp atraumatic, hearing grossly normal bilaterally, moist oral mucous membranes and oropharynx normal Mouth: oral and palatal mucosa normal Eyes PERRL and EOMs intact bilaterally Neck no lymphadenopathy, supple, no JVD and thyroid normal Lymph Lymphatic: no lymphadenopathy noted and no lymphedema noted Resp Resp Narrative: mildly diminished breath sounds bibasally, no wheezes or crackles. On room air. Cardio regular rate, regular rhythm, S1 normal heart sound, S2 normal heart sound and no murmurs GI normal to inspection, nondistended, normoactive bowel sounds, soft to palpation, non-tender and non-distended Extremity normal capillary refill, no clubbing, cyanosis or edema and no calf tenderness Skin no rashes or lesions noted General Skin Exam: no breakdown Neuro oriented x3, CN's II-XII intact bilaterally, moves all extremities, no focal motor deficits, no sensory deficits noted and deep tendon reflexes 2+ bilaterally Sensorium / Orientation: awake and alert Psych thought process normal, cooperative and affect normal Appearance: appropriate Weight / BMI Weight Weight: 263 lb 3.2 oz Body Mass Index (BMI) 38.8 ABG / Lab / Microbiology Data 01/23/23 05:54 01/23/23 05:54 Laboratory: Laboratory Results - last 24 hr 01/23/23 05:54: WBC 8.7, RBC 3.30 L, Hgb 11.9 L, Hct 35.3 L, MCV 107.0 H, MCH 36.1 H, MCHC 33.7, RDW Std Deviation 61.2 H, RDW Coeff of Brigitte 15.5 H, Plt Count 130 L, MPV 12.2 H, Immature Gran % (Auto) 0.200, Neut % (Auto) 84.5 H, Lymph % (Auto) 4.8 L, Green % (Auto) 10.5 H, Eos % (Auto) 0.0, Baso % (Auto) 0.0, Absolute Neuts (auto) 7.3, Absolute Lymphs (auto) 0.42 L, Nucleated RBC % 0, Differential Comment SCANNED, Sodium 139, Potassium 4.5, Chloride 110 H, Carbon Dioxide 24.0, Anion Gap 5, BUN 24 H, Creatinine 1.13, Estim Creat Clear Calc 47.79, Est GFR (MDRD) Af Amer 79, Est GFR (MDRD) Non-Af 66, BUN/Creatinine Ratio 21.2 H, Glucose 153 H, Calcium 8.7 Microbiology: Microbiology 01/21/23 16:45 Nasal Secretion SARS-CoV-2 & FLU Antigen (Rapid) - Final SARS-CoV-2 (COVID 19) D/C Instructions Discharge Diet: Low fat / Low cholesterol Discharge Activity: Return to Normal Activity Weight Bearing Status: Weight bearing as tolerated Call your doctor if you observe: Fever of 101 or Higher, Shortness of breath, Dizziness, Swelling in the ankles and Chest pain Meaningful Use Info Meaningful Use Diagnoses (Choose all that apply): None applicable Discharge Plan Admission Admit Date/Time: 01/21/23 18:25 Primary Reason for Your Visit: covid 19 infection Attending Provider: Jane Snider Primary Care Provider: Kaiser Pan Chi Instructions Patient Instructions: Coronavirus Disease 2019 (COVID-19): Overview Additional Instructions / Restrictions: eliquis prescribed for 2 weeks due to increased risk of blood clots with COVID and elevated d dimer. If you notice any blood in your stool or urine or cough up any blood, or have any falls at home, please stop eliquis immediately and call your PCP. Discharge Orders/Prescriptions Prescriptions: New dexamethasone 6 mg tablet 6 mg PO DAILY Qty: 8 0RF Eliquis 2.5 mg tablet 2.5 mg PO BID Qty: 28 0RF Continued aspirin [Marisela Low Dose Aspirin] 81 mg tablet,delayed release (DR/EC) 81 mg PO DAILY omeprazole 40 mg capsule,delayed release(DR/EC) 40 mg PO DAILY potassium chloride 20 mEq tablet extended release 20 meq PO DAILY multivitamin Tablet 1 tab PO DAILY tamsulosin 0.4 MG capsule 0.4 mg PO DAILY acetaminophen 500 mg Tablet 1,000 mg PO Q6H PRN PRN (Reason: Pain Score 1-10) Qty: 0 0RF atorvastatin 40 mg tablet 40 mg PO QHS ranolazine 1,000 mg tablet extended release 12 hr 1,000 mg PO BID Qty: 180 3RF nitroglycerin 0.4 mg tablet, sublingual 0.4 mg SUBLINGUAL Q5-15M PRN (Reason: Chest Pain) Qty: 25 3RF furosemide 40 mg tablet 40 mg PO DAILY PRN (Reason: edema) Referrals / Follow Up: Kaiser Pan Chi, MD [Primary Care Provider] - Within 1 Week Disposition Disposition (needs filled in before D/C Order can be placed): Home, Self Care Charges/Coding Visit Charges Inpatient E&M: 78647 Disch Hosp >30min
[2023-01-23] MEDS: Enoxaparin 40 MG/0.4 ML Syringe SC (12:12)
[2023-01-23 15:10] VITALS: O2SAT 98
== END 2023-01-23 16:14 | disposition home or self-care (01) | DRG 179 ==
LOC: ED 18:17 → MS3 18:43
PROVIDERS: Physician Assistant; Admitting Provider Student in an Organized Health Care Education/Training Program; Emergency Provider Emergency Medicine; PCP Family Medicine Geriatric Medicine; Visit Provider Student in an Organized Health Care Education/Training Program
DX: U07.1 COVID-19 (principal); E78.00 Pure hypercholesterolemia, unspecified; I25.10 Atherosclerotic heart disease of native coronary artery without angina pectoris; I10 Essential (primary) hypertension; R09.02 Hypoxemia; R79.89 Other specified abnormal findings of blood chemistry; N40.0 Benign prostatic hyperplasia without lower urinary tract symptoms; Z79.82 Long term (current) use of aspirin; Z79.899 Other long term (current) drug therapy; Z95.1 Presence of aortocoronary bypass graft
CPT/HCPCS: 36415; 71046; 71275; 80048; 83605; 83615; 84145; 84484; 85025; 85379; 85384; 85610; 86140; 87428; 93005; 94640; 97116; 97162; 97166; 97530; 97802; 99285; J7030; Q9967; A4216

== ENCOUNTER 2023-02-03 19:18 | Emergency (ER) | payer MEDICARE, OTHER, SELFPAY ==
[2023-02-03 19:19] VITALS: BP 141/107; PULSE 65; RESP 18; TEMP 36.4; O2SAT 97
--- NOTE | 2023-02-03 19:41 | EDS_ITS ---
HPI <SULAIMAN Clay - Last Filed: 02/03/23 22:24> History of Present Illness Chief Complaint: Fall Narrative Narrative: Patient presenting due to a fall that occurred this evening. He reports that he was drying off after a shower and the next thing he knew he was on the ground on his right side. He does not think that he slipped or tripped over anything but has been feeling wobbly all day. He was unable to get up and had to crawl across the floor on his abdomen to call for help. He originally complained of right hip pain to EMS but he denies having right hip pain now. He reports pain to his abdomen from crawling across the floor. He did not hit his head and denies loss of consciousness. He is on a blood thinner. He denies any other injury. [facility] <SULAIMAN Clay - Last Filed: 02/03/23 22:24> [facility] Medical History Abnormal result of cardiovascular function study, unspecified Aortocoronary bypass status Atherosclerosis of coronary artery bypass graft(s), unspecified, with other forms of angina pectoris Atrial flutter Benign paroxysmal positional vertigo BPH (benign prostatic hyperplasia) CAD (coronary artery disease) COVID COVID-19 Dizziness and giddiness Essential hypertension Fatigue GERD (gastroesophageal reflux disease) History of atrial fibrillation History of percutaneous transluminal coronary angioplasty Intermittent claudication Laceration of head Left carpal tunnel syndrome Left trigger finger Malignant pericardial effusion Nonrheumatic aortic (valve) insufficiency Nonrheumatic aortic (valve) stenosis Pain in left shoulder Pain in limb Palpitations Precordial chest pain Pressure injury of left buttock, stage 1 Prinzmetal angina Pure hypercholesterolemia Shortness of breath Vertigo Home Medications tamsulosin 0.4 mg capsule 0.4 mg PO DAILY URINE FLOW 03/06/16 [History Last Taken 05/10/19] atorvastatin 40 mg tablet 40 mg PO QHS cholesterol 06/26/18 [History Last Taken 05/10/19] aspirin 81 mg tablet,delayed release (Marisela Low Dose Aspirin) 81 mg PO DAILY heart health 07/04/18 [History Last Taken 05/10/19] omeprazole 40 mg capsule,delayed release 40 mg PO DAILY acid reflux 07/04/18 [History Last Taken 05/10/19] potassium chloride 20 mEq tablet,extended release 20 meq PO DAILY supplement 07/04/18 [History Last Taken 05/10/19] acetaminophen 500 mg tablet 1,000 mg (2 x 500 mg) PO Q6H PRN PRN Pain Score 1-10 #0 tabs 11/05/21 [Rx Last Taken Unknown] multivitamin 1 tab PO DAILY 04/15/22 [History Last Taken Unknown] ranolazine 1,000 mg tablet,extended release,12 hr 1,000 mg PO BID heart #180 tabs 07/19/22 [Rx Last Taken Unknown] nitroglycerin 0.4 mg sublingual tablet 0.4 mg sublingual Q5-15M PRN Chest Pain #25 tabs 08/31/22 [Rx Last Taken Unknown] furosemide 40 mg tablet 40 mg PO DAILY PRN edema 11/18/22 [History Last Taken Unknown] apixaban 2.5 mg tablet (Eliquis) 2.5 mg PO BID #28 tabs 01/23/23 [Rx Last Taken Unknown] Allergy/AdvReac Type Severity Reaction Status Date / Time tramadol [From Ultram] AdvReac Other Verified 01/21/23 14:26 Family History Father CAD (coronary artery disease) CHF (congestive heart failure) Mother Heart disease Brother Diabetes Cancer Hx of CABG CAD (coronary artery disease) Sister COPD (chronic obstructive pulmonary disease) Diabetes Surgical History H/O cardiac radiofrequency ablation (~10/2006) H/O knee surgery H/O shoulder surgery H/O shoulder surgery History of arthroscopy (~07/2011) History of bilateral knee replacement History of carpal tunnel surgery History of left heart catheterization (LHC) (~09/2007) History of PTCA Hx of CABG (~05/2005) Status post total knee replacement, right Social History household members: none Smoking Status: Never smoker alcohol intake: never substance use type: does not use caffeine: No what type of physical activity do you participate in: none seatbelt use: always do you feel safe at home: Yes ROS <SULAIMAN Clay - Last Filed: 02/03/23 22:24> ROS ED Constitutional Constitutional ED: Denies chills or fever(s) Eyes Eyes: Denies change in vision Cardiovascular Cardiovascular: Denies chest pain or palpitations Respiratory/Chest Respiratory/Chest: Denies cough, dyspnea or tachypnea Gastrointestinal Gastrointestinal: Reports abdominal pain; Denies constipation, diarrhea, nausea or vomiting Genitourinary Genitourinary ED: Denies dysuria, hematuria or urinary urgency Musculoskeletal Musculoskeletal: Denies arthralgias, back pain, myalgias or neck pain Integumentary Denies abscess, Abrasions or rash Neurologic Neurologic: Reports weakness EXAM <SULAIMAN Clay - Last Filed: 02/03/23 22:24> Physical Exam Const Vital Signs: 02/03/23 19:19 02/03/23 19:40 02/03/23 21:19 Temperature 97.6 F L Temperature Source Temporal Pulse Rate 65 67 Respiratory Rate 18 20 H Respiratory Effort Normal Non-Labored Respiratory Depth Normal Respiratory Pattern Normal Blood Pressure 141/107 H 170/82 H Blood Pressure Mean 118 111 Pulse Ox 97 98 Oxygen Delivery Method Room Air Room Air Room Air Positive well nourished, well developed and no apparent distress General Appearance ED: well developed HEENT Reports normocephalic and head/scalp atraumatic Mouth ED: Yes moist mucous membranes normal Eyes PERRL and EOMs intact bilaterally Neck full ROM and supple Chest Wall inspection of chest normal Resp normal respiratory effort and clear to auscultation bilaterally Cardio regular rate and regular rhythm GI soft to palpation, non-distended and no masses GI Narrative: Mild diffuse tenderness to the left side of patient's abdomen without any rigidity, guarding, or peritoneal signs. There is no ecchymosis. Back/Spine normal ROM and normal to inspection Extremity normal to inspection and full ROM Neuro oriented x3, CN's II-XII intact bilaterally, moves all extremities, no focal motor deficits and no sensory deficits noted Sensorium / Orientation: awake and alert Motor Exam: strength 5/5 throughout Psych mental status grossly normal and thought process normal Skin no rashes or lesions noted and no wounds <Dr. Willy Abdullahi MD - Last Filed: 02/04/23 02:10> Physical Exam Const Vital Signs: 02/03/23 19:19 02/03/23 19:40 02/03/23 21:19 Temperature 97.6 F L Temperature Source Temporal Pulse Rate 65 67 Respiratory Rate 18 20 H Respiratory Effort Normal Non-Labored Respiratory Depth Normal Respiratory Pattern Normal Blood Pressure 141/107 H 170/82 H Blood Pressure Mean 118 111 Pulse Ox 97 98 Oxygen Delivery Method Room Air Room Air Room Air [facility] <SULAIMAN Clay - Last Filed: 02/03/23 22:24> [facility] Narrative Medical decision making narrative: Patient presenting today for evaluation after a fall onto his right side that occurred this evening. He fell while he was drying off after shower but does not know how he fell. He denies passing out or loss of consciousness after the fall, he did not hit his head. He reports pain to the left side of his abdomen from crawling across the floor but did not hit his abdomen when he fell. He originally complained of right hip pain to EMS but is reporting that the hip pain is no longer there. However, x-ray will be obtained to rule out fracture. Patient appears dry and states he has not eaten or drink much today. Labs will be obtained to rule out leukocytosis, anemia, electrolyte abnormality, NORBERTO. He will be given a liter of IV fluids. I offered analgesia to patient but he declined. On repeat examination patient reports that he is feeling better and would like to go home. Labs overall are unremarkable in comparison to previous labs. Hip x-rays negative for fracture. Patient will be discharged home in stable condition and is comfortable with plan. Has been given return instructions and is to follow-up with PCP. Lab Data Attestation: I reviewed the patient's lab results. Lab results narrative: Platelet count 134, BUN 27, creatinine 1.4, Labs: Laboratory Results - last 24 hr 02/03/23 19:30 WBC 10.6 RBC 3.56 L Hgb 13.0 Hct 38.4 L MCV 107.9 H MCH 36.5 H MCHC 33.9 RDW Std Deviation 62.9 H RDW Coeff of Brigitte 15.9 H Plt Count 134 L MPV 12.3 H Immature Gran % (Auto) 1.900 H Neut % (Auto) 78.5 H Lymph % (Auto) 4.7 L [place] % (Auto) 13.4 H Eos % (Auto) 1.3 Baso % (Auto) 0.2 Absolute Neuts (auto) 8.4 H Absolute Lymphs (auto) 0.50 L Nucleated RBC % 0 Differential Comment SCANNED Sodium 139 Potassium 4.5 Chloride 107 Carbon Dioxide 28.0 Anion Gap 4 L BUN 27 H Creatinine 1.41 H Est GFR (MDRD) Af Amer 61 Est GFR (MDRD) Non-Af 51 L BUN/Creatinine Ratio 19.1 Glucose 140 H Calcium 8.6 Radiography X-Ray: Read by ED Physician and Read by Radiologist Diagnostic Testing: Clinical Impression(s) from Imaging Studies Hip/Pelvis X-Ray 02/03/23 19:58 IMPRESSION: No evidence of displaced pelvic or hip fracture. Electronically Signed: Kenyatta Amaro MD at 20:19 EDT , <Dr. Willy Abdullahi MD - Last Filed: 02/04/23 02:10> [facility] MDM Narrative Medical decision making narrative: Patient presenting today for evaluation after a fall onto his right side that occurred this evening. He fell while he was drying off after shower but does not know how he fell. He denies passing out or loss of consciousness after the fall, he did not hit his head. He reports pain to the left side of his abdomen from crawling across the floor but did not hit his abdomen when he fell. He originally complained of right hip pain to EMS but is reporting that the hip pain is no longer there. However, x-ray will be obtained to rule out fracture. Patient appears dry and states he has not eaten or drink much today. Labs will be obtained to rule out leukocytosis, anemia, electrolyte abnormality, NORBERTO. He will be given a liter of IV fluids. I offered analgesia to patient but he declined. On repeat examination patient reports that he is feeling better and would like to go home. Labs overall are unremarkable in comparison to previous labs. Hip x-rays negative for fracture. Patient will be discharged home in stable condition and is comfortable with plan. Has been given return instructions and is to follow-up with PCP. I have personally performed a face to face assessment of the patient and have reviewed the KAMALA Note. I performed a substantive portion of the visit including all aspects of the following. My weinstein findings include: History is remarkable for fall. Patient is uncertain how he fell or why he fell. Patient denied orthostatic symptoms. Patient denied cardiac or respiratory symptoms. Patient denies black or maroon-colored stool. Patient localizes the pain over the greater trochanteric region. He denies head trauma. He denies headache. He denies ringing's ears or decreased hearing. He denies ocular or visual symptoms. He denies neck pain. He denies paresthesia or anesthesia in the upper or lower extremities presently or time of fall. Exam is is remarkable for tenderness over the right or greater trochanteric region. There is no pain the patient over the pubic symphysis or right ischial tuberosity. There is no pain ovation over the iliac wing. There is no shortening of the right lower extremity. Patient does not complain of any pain with logrolling. He is able to flex at the right and left hip. Examination of the knee reveals no evidence of trauma. There is no swelling. There is no bruising. Patella is not ballotable. There is no effusion. There is no laxity with varus valgus stress testing. Patrice's test and modified Daisy's test was negative. Patient has palpable DP pulse and symmetric. Medical Decision Making because the reason patient fell is uncertain EKG was obtained to assess rhythm. CBC to assess H&H. BMP to assess BUN to creatinine ratio. X-ray of the right hip was obtained. X-ray the right hip was independent reviewed interpreted by me as negative for fracture, subluxation or dislocation. Other additions or changes: Since patient has no fracture workup was unremarkable he was discharged to home. Lab Data Labs: Laboratory Results - last 24 hr 02/03/23 19:30 WBC 10.6 RBC 3.56 L Hgb 13.0 Hct 38.4 L MCV 107.9 H MCH 36.5 H MCHC 33.9 RDW Std Deviation 62.9 H RDW Coeff of Brigitte 15.9 H Plt Count 134 L MPV 12.3 H Immature Gran % (Auto) 1.900 H Neut % (Auto) 78.5 H Lymph % (Auto) 4.7 L [place] % (Auto) 13.4 H Eos % (Auto) 1.3 Baso % (Auto) 0.2 Absolute Neuts (auto) 8.4 H Absolute Lymphs (auto) 0.50 L Nucleated RBC % 0 Differential Comment SCANNED Sodium 139 Potassium 4.5 Chloride 107 Carbon Dioxide 28.0 Anion Gap 4 L BUN 27 H Creatinine 1.41 H Est GFR (MDRD) Af Amer 61 Est GFR (MDRD) Non-Af 51 L BUN/Creatinine Ratio 19.1 Glucose 140 H Calcium 8.6 Radiography Diagnostic Testing: Clinical Impression(s) from Imaging Studies Hip/Pelvis X-Ray 02/03/23 19:58 IMPRESSION: No evidence of displaced pelvic or hip fracture. Electronically Signed: Kenyatta Amaro MD at 20:19 EDT Reading Location ID and State: [id number] / Tel , Service support , Discharge Plan Triage Chief Complaint: Fall ED Midlevel Provider: Linda Allen ED Provider: Willy Abdullahi Dx/Rx/DC Orders Clinical Impression: Injury due to fall, Essential hypertension, Hyperlipidemia, Acute pain of right hip, History of CAD (coronary artery disease) Instructions: ED FALL-from [id number] Prescriptions: No Action aspirin [Marisela Low Dose Aspirin] 81 mg tablet,delayed release (DR/EC) 81 mg PO DAILY Hold Instructions: during eliquis therapy omeprazole 40 mg capsule,delayed release(DR/EC) 40 mg PO DAILY potassium chloride 20 mEq tablet extended release 20 meq PO DAILY multivitamin Tablet 1 tab PO DAILY tamsulosin 0.4 MG capsule 0.4 mg PO DAILY acetaminophen 500 mg Tablet 1,000 mg PO Q6H PRN PRN (Reason: Pain Score 1-10) Qty: 0 0RF Eliquis 2.5 mg tablet 2.5 mg PO BID Qty: 28 0RF atorvastatin 40 mg tablet 40 mg PO QHS ranolazine 1,000 mg tablet extended release 12 hr 1,000 mg PO BID Qty: 180 3RF nitroglycerin 0.4 mg tablet, sublingual 0.4 mg SUBLINGUAL Q5-15M PRN (Reason: Chest Pain) Qty: 25 3RF furosemide 40 mg tablet 40 mg PO DAILY PRN (Reason: edema) Primary Care Provider: [facility] Referrals: [facility] Pan Chi, MD [Primary Care Provider] - 3-5 Days Activity Restrictions/Additional Instructions: Please follow-up with your PCP and return for any worsening of your symptoms. Disposition Disposition: Home, Self Care Discharge Date/Time: 02/03/23 21:30
[2023-02-03] MEDS: 0.9% Normal Saline 1,000 ML 999 ML IV (19:46)
[2023-02-03 19:50] LABS: Absolute Neutrophil Count 8.4 X10^3/uL (2.0-7.7); Basophil# 0.02 X10^3/uL; Basophil% 0.2 % (0-1); Eosinophil# 0.14 X10^3/uL; Eosinophils% 1.3 % (0-5); Hematocrit 38.4 % (40-54); Lymphocyte % 4.7 % (19-41); Mean Corp Hgb Conc 33.9 g/dL (32-36); Mean Corpuscular Hgb 36.5 pg (27.0-32.0); Mean Corpuscular Volume 107.9 fL (80-94); Mean Platelet Vol. 12.3 fl (6.2-12.0); Monocyte# 1.43 X10^3/uL; Monocyte% 13.4 % (0-10); NRBC Flagged by Analyzer 0 % (0-5); Neutrophil # 8.35 X10^3/uL (2.7-7.7); Neutrophil % 78.5 % (47-70); POSITIVE DIFFERENTIAL YES; Platelet Count 134 K/mm3 (150-450); RBC Distribution Width CV 15.9 % (11.6-14.6); RBC Distribution Width SD 62.9 fl (35.1-43.9); Red Blood Count 3.56 M/mm3 (4.6-6.2); White Blood Count 10.6 K/mm3 (4.4-11.0)
--- NOTE | 2023-02-03 19:58 | RAD_ITS ---
INDICATION: fall, r hip pain EXAMINATION/TECHNIQUE: X-RAY - XR Hip Unilateral with Pelvis when performed; 2-3 Views COMPARISON: FINDINGS: No acute fracture or dislocation. No destructive bone changes. Joint spaces are well-maintained. Normal alignment. Soft tissues are unremarkable. No radiopaque foreign body or soft tissue gas. RAD/HIP, UNI W/ Pelvis 2-3 Views IMPRESSION: No evidence of displaced pelvic or hip fracture. Electronically Signed: Kenyatta Amaro MD at 20:19 EDT Reading Location ID and State: [id number] / Tel , Service support ,
[2023-02-03 20:06] LABS: Anion Gap 4 (5-15); BUN 27 mg/dL (7-18); BUN/Creat Ratio 19.1 RATIO (10-20); Calcium,Total 8.6 mg/dL (8.5-10.1); Chloride 107 mmol/L (98-107); Creatinine, Serum 1.41 mg/dL (0.70-1.30); EST Glomerular Filtration Rate 51 mL/min (>60); Est Glom Filt Rate - Afr Amer 61 mL/min (>60); Glucose 140 mg/dL (74-106); Potassium 4.5 mmol/L (3.5-5.1); Sodium Level 139 mmol/L (136-145)
[2023-02-03 20:40] LABS: Differential Indicated SCAN CRITERIA MET
[2023-02-03 20:44] LABS: Differential Comment SCANNED
[2023-02-03 21:19] VITALS: BP 170/82; PULSE 67; RESP 20; O2SAT 98
== END 2023-02-03 21:30 | disposition home or self-care (01) ==
PROVIDERS: Physician Assistant; Emergency Provider Emergency Medicine; PCP Family Medicine Geriatric Medicine; Visit Provider Emergency Medicine
DX: M25.551 Pain in right hip (principal); W18.30XA Fall on same level, unspecified, initial encounter; Y93.E1 Activity, personal bathing and showering; I25.10 Atherosclerotic heart disease of native coronary artery without angina pectoris; I10 Essential (primary) hypertension; E78.00 Pure hypercholesterolemia, unspecified; N40.0 Benign prostatic hyperplasia without lower urinary tract symptoms; K21.9 Gastro-esophageal reflux disease without esophagitis
CPT/HCPCS: 73502; 80048; 85025; 96360; 99285; J7030; A4216

== ENCOUNTER → 2023-02-07 | Outpatient (CLI) | payer MEDICARE, OTHER, SELFPAY ==
[2023-02-07 17:13] LABS: Absolute Lymphocyte Count 0.48 X10^3/uL (0.83-4.51); Absolute Neutrophil Count 2.9 X10^3/uL (2.0-7.7); Basophil# 0.02 X10^3/uL; Basophil% 0.4 % (0-1); Eosinophil# 0.14 X10^3/uL; Eosinophils% 2.9 % (0-5); Hematocrit 36.6 % (40-54); Hemoglobin 12.3 g/dL (13.0-16.5); Lymphocyte # 0.48 X10^3/ul (0.83-4.51); Lymphocyte % 9.8 % (19-41); Mean Corp Hgb Conc 33.6 g/dL (32-36); Mean Corpuscular Hgb 36.1 pg (27.0-32.0); Mean Corpuscular Volume 107.3 fL (80-94); Mean Platelet Vol. 13.1 fl (6.2-12.0); Monocyte# 1.29 X10^3/uL; Monocyte% 26.4 % (0-10); NRBC Flagged by Analyzer 0 % (0-5); Neutrophil # 2.91 X10^3/uL (2.7-7.7); Neutrophil % 59.7 % (47-70); POSITIVE DIFFERENTIAL YES; Platelet Count 109 K/mm3 (150-450); RBC Distribution Width CV 16.2 % (11.6-14.6); RBC Distribution Width SD 64.5 fl (35.1-43.9); Red Blood Count 3.41 M/mm3 (4.6-6.2); White Blood Count 4.9 K/mm3 (4.4-11.0)
[2023-02-07 17:28] LABS: Vitamin D,25 Hydroxy 26.1 ng/mL
[2023-02-07 17:42] LABS: ALB/GLOB Ratio 0.9 RATIO (0.9-2.4); AST(SGOT) 25 U/L (15-37); Alanine Aminotransfer ALT/SGPT 41 U/L (16-61); Albumin, Serum 2.9 g/dL (3.2-5.0); Alkaline Phosphatase 56 U/L (45-117); Anion Gap 4 (5-15); BUN 14 mg/dL (7-18); BUN/Creat Ratio 12.7 RATIO (10-20); Calcium,Total 8.6 mg/dL (8.5-10.1); Chloride 108 mmol/L (98-107); EST Glomerular Filtration Rate 68 mL/min (>60); Est Glom Filt Rate - Afr Amer 82 mL/min (>60); Globulin 3.3 g/dL (2.2-4.2); Glucose 83 mg/dL (74-106); Potassium 4.8 mmol/L (3.5-5.1); Protein, Total 6.2 g/dL (6.4-8.2); Sodium Level 138 mmol/L (136-145)
[2023-02-07 17:44] LABS: Differential Indicated SCAN CRITERIA MET
== END | disposition home or self-care (01) ==
PROVIDERS: PCP Family Medicine Geriatric Medicine; Visit Provider Family Medicine Geriatric Medicine
DX: R53.83 Other fatigue (principal); E55.9 Vitamin D deficiency, unspecified
CPT/HCPCS: 36415; 80053; 82306; 84443; 85025

== ENCOUNTER → 2023-05-09 | Outpatient (CLI) | payer MEDICARE, OTHER, SELFPAY ==
[2023-05-09 14:20] LABS: Absolute Lymphocyte Count 0.43 X10^3/uL (0.83-4.51); Absolute Neutrophil Count 3.4 X10^3/uL (2.0-7.7); Basophil# 0.02 X10^3/uL; Basophil% 0.4 % (0-1); Eosinophils% 4.1 % (0-5); Hematocrit 36.8 % (40-54); Lymphocyte # 0.43 X10^3/ul (0.83-4.51); Lymphocyte % 8.9 % (19-41); Mean Corp Hgb Conc 32.6 g/dL (32-36); Mean Corpuscular Hgb 36.1 pg (27.0-32.0); Mean Corpuscular Volume 110.8 fL (80-94); Mean Platelet Vol. 12.9 fl (6.2-12.0); Monocyte# 0.79 X10^3/uL; Monocyte% 16.3 % (0-10); NRBC Flagged by Analyzer 0 % (0-5); Neutrophil # 3.37 X10^3/uL (2.7-7.7); Neutrophil % 69.5 % (47-70); POSITIVE DIFFERENTIAL YES; Platelet Count 124 K/mm3 (150-450); RBC Distribution Width CV 15.1 % (11.6-14.6); RBC Distribution Width SD 61.2 fl (35.1-43.9); Red Blood Count 3.32 M/mm3 (4.6-6.2); White Blood Count 4.9 K/mm3 (4.4-11.0)
[2023-05-09 14:22] LABS: Differential Indicated SCAN CRITERIA MET
[2023-05-09 14:36] LABS: Vitamin D,25 Hydroxy 36.8 ng/mL
[2023-05-09 14:43] LABS: AST(SGOT) 20 U/L (15-37); Alanine Aminotransfer ALT/SGPT 26 U/L (16-61); Albumin, Serum 3.4 g/dL (3.2-5.0); Alkaline Phosphatase 65 U/L (45-117); Anion Gap 4 (5-15); BUN 22 mg/dL (7-18); Calcium,Total 8.8 mg/dL (8.5-10.1); Chloride 109 mmol/L (98-107); Creatinine, Serum 1.22 mg/dL (0.70-1.30); EST Glomerular Filtration Rate 60 mL/min (>60); Est Glom Filt Rate - Afr Amer 73 mL/min (>60); Globulin 3.3 g/dL (2.2-4.2); Glucose 98 mg/dL (74-106); Potassium 4.2 mmol/L (3.5-5.1); Protein, Total 6.7 g/dL (6.4-8.2); Sodium Level 141 mmol/L (136-145)
[2023-05-09 14:46] LABS: Differential Comment SCANNED
== END | disposition home or self-care (01) ==
LOC: POLAB3 13:02
PROVIDERS: PCP Family Medicine Geriatric Medicine; Visit Provider Family Medicine Geriatric Medicine
DX: R53.83 Other fatigue (principal); E55.9 Vitamin D deficiency, unspecified
CPT/HCPCS: 36415; 80053; 82306; 84443; 85025

== ENCOUNTER → 2023-07-13 | Outpatient (CLI) | payer MEDICARE, OTHER, SELFPAY ==
[2023-07-13 16:08] LABS: AST(SGOT) 24 U/L (15-37); Alanine Aminotransfer ALT/SGPT 28 U/L (16-61); Cholesterol 143 mg/dL (200); High Density Lipoprotein 61 mg/dL; Triglycerides 131 mg/dL; Very Low Density Lipoprotein 26 mg/dL (5-40)
== END | disposition home or self-care (01) ==
LOC: LAB 14:36
PROVIDERS: PCP Family Medicine Geriatric Medicine; Referring Provider Internal Medicine Cardiovascular Disease; Visit Provider Internal Medicine Cardiovascular Disease
DX: R07.2 Precordial pain (principal); E78.5 Hyperlipidemia, unspecified
CPT/HCPCS: 36415; 80061; 84450; 84460

== ENCOUNTER → 2023-08-15 | Outpatient (CLI) | payer MEDICARE, OTHER, SELFPAY ==
[2023-08-15 15:34] LABS: Absolute Lymphocyte Count 0.62 X10^3/uL (0.83-4.51); Absolute Neutrophil Count 3.1 X10^3/uL (2.0-7.7); Basophil# 0.02 X10^3/uL; Basophil% 0.4 % (0-1); Eosinophil# 0.24 X10^3/uL; Hematocrit 36.7 % (40-54); Hemoglobin 12.1 g/dL (13.0-16.5); Lymphocyte # 0.62 X10^3/ul (0.83-4.51); Lymphocyte % 12.9 % (19-41); Mean Corpuscular Hgb 36.3 pg (27.0-32.0); Mean Corpuscular Volume 110.2 fL (80-94); Monocyte% 16.7 % (0-10); NRBC Flagged by Analyzer 0 % (0-5); Neutrophil % 64.8 % (47-70); Platelet Count 118 K/mm3 (150-450); RBC Distribution Width CV 15.3 % (11.6-14.6); RBC Distribution Width SD 62.8 fl (35.1-43.9); Red Blood Count 3.33 M/mm3 (4.6-6.2); White Blood Count 4.8 K/mm3 (4.4-11.0)
[2023-08-15 16:42] LABS: ALB/GLOB Ratio 1.2 RATIO (0.9-2.4); AST(SGOT) 24 U/L (15-37); Alanine Aminotransfer ALT/SGPT 26 U/L (16-61); Albumin, Serum 3.5 g/dL (3.2-5.0); Alkaline Phosphatase 66 U/L (45-117); Anion Gap 4 (5-15); BUN 19 mg/dL (7-18); BUN/Creat Ratio 15.6 RATIO (10-20); Calcium,Total 8.8 mg/dL (8.5-10.1); Chloride 110 mmol/L (98-107); Creatinine, Serum 1.22 mg/dL (0.70-1.30); EST Glomerular Filtration Rate 60 mL/min (>60); Est Glom Filt Rate - Afr Amer 73 mL/min (>60); Glucose 107 mg/dL (74-106); Potassium 4.3 mmol/L (3.5-5.1); Protein, Total 6.5 g/dL (6.4-8.2); Sodium Level 141 mmol/L (136-145); Thyroid Stim Hormone (TSH) 1.84 uIU/mL (0.358-3.74)
== END | disposition home or self-care (01) ==
LOC: LAB 14:56
PROVIDERS: PCP Family Medicine Geriatric Medicine; Referring Provider Family Medicine Geriatric Medicine; Visit Provider Family Medicine Geriatric Medicine
DX: R53.83 Other fatigue (principal); E55.9 Vitamin D deficiency, unspecified
CPT/HCPCS: 36415; 80053; 82306; 84443; 85025

== ENCOUNTER → 2023-08-18 | Outpatient (CLI) | payer MEDICARE, OTHER, SELFPAY ==
--- NOTE | 2023-08-18 07:17 | ECHOCS_ITS ---
Reason For Study: CAD/ASHD Procedure This was a 2D Doppler, Color Flow transthoracic echocardiogram. The study was technically difficult. The study was technically limited. PT had deifficulty tolerating probe pressure, Unable to use pedoff probe due to pain in ribcage area. Limited views were obtained. Exam performed in department. Left Ventricle Normal LV size. Mild concentric left ventricular hypertrophy. The left ventricular ejection fraction is 65 %. Right Ventricle Normal right ventricle. Atria There is severe biatrial dilatation. Mitral Valve Mitral valve not well visualized. Tricuspid Valve Mild to moderate (1-2+) tricuspid valve insufficiency. Right ventricular systolic pressure estimated to be 36 mmHg. Aortic Valve Severe diffuse aortic valve calcification. Moderate to severe aortic stenosis. Pulmonic Valve The pulmonic valve is not well visualized. Great Vessels Moderately dilated aortic root. Pericardium/Pleural No pericardial effusion. Medication 22 gauge I.V. with prn adaptor inserted into right arm. Diluted definity 4.5ml given slow IV push to enhance endocardial definition. MMode/2D Measurements & Calculations LVIDd: 5.1 cm IVSd: 1.2 cm LVOT diam: 2.0 cm LVIDs: 3.9 cm LVPWd: 1.3 cm FS: 24.5 % LVOT area: 3.2 cm2 Ao root diam: 4.2 cm LAV(MOD-sp2): 76.0 ml LA dimension(2D): 4.1 cm TAPSE: 1.6 cm Time Measurements MV dec time: 0.25 sec Doppler Measurements & Calculations MV E max neto: 103.1 cm/sec Lat Peak E' Neto: 15.9 cm/sec Med Peak E' Neto: 9.4 cm/sec MV A max neto: 29.3 cm/sec E/E' lat: 6.5 E/E' med: 11.0 MV E/A: 3.5 MV V2 max: 91.9 cm/sec MV P1/2t max neto: 102.7 cm/sec Ao V2 max: 272.1 cm/sec MV max P.4 mmHg MV P1/2t: 69.6 msec Ao max P.6 mmHg MV V2 mean: 44.2 cm/sec Ao V2 mean: 188.2 cm/sec MV mean P.94 mmHg MV dec slope: 431.9 cm/sec2 Ao mean P.1 mmHg MV V2 VTI: 25.8 cm MVA(P1/2t): 3.2 cm2 Ao V2 VTI: 69.6 cm AV (velocity ratio): 0.19 MVA(VTI): 1.7 cm2 CECILY(I,D): 0.63 cm2 CECILY(V,D): 0.85 cm2 LV V1 max: 71.8 cm/sec SV(LVOT): 43.8 ml PA V2 max: 110.8 cm/sec LV V1 max P.1 mmHg PA V2 mean: 67.0 cm/sec LV V1 mean P.0 mmHg LV V1 mean: 48.4 cm/sec LV V1 VTI: 13.6 cm TR max neto: 276.8 cm/sec TR max P.6 mmHg ECHO/Echo Complete W/ Contrast Interpretation Summary The study was technically difficult. Mild concentric left ventricular hypertrophy. The left ventricular ejection fraction is 65 %. There is severe biatrial dilatation. Mild to moderate (1-2+) tricuspid valve insufficiency. Right ventricular systolic pressure estimated to be 36 mmHg. Moderately dilated aortic root. Moderate to severe aortic stenosis. Gradient may be underestimated. Recommend c ardiac MRI or LOREE for further evaluation. Ordering Physician: Yamilka Wu Referring Physician: Maxim Saab Chi Performed By: Arielle East, VILMACS, RVT
== END | disposition home or self-care (01) ==
LOC: CVS 07:16
PROVIDERS: PCP Family Medicine Geriatric Medicine; Referring Provider Internal Medicine Cardiovascular Disease; Visit Provider Internal Medicine Cardiovascular Disease
DX: R07.2 Precordial pain (principal); I25.10 Atherosclerotic heart disease of native coronary artery without angina pectoris
CPT/HCPCS: 93306; Q9957; A4216; C8929

== ENCOUNTER → 2023-08-19 | Outpatient (CLI) | payer MEDICARE, OTHER, SELFPAY ==
--- NOTE | 2023-08-25 12:55 | STRESSREP_ITS ---
Stress Test Report Date: 08/19/2023 Procedure: Pharmacologic stress nuclear imaging study Indications: Coronary artery disease Consent: Per the patient Procedure: The patient underwent pharmacologic (Regadenoson 0.4mg ) evaluation with a peak heart rate of 71 beats per minute (52%predicted maximal heart rate) and a peak blood pressure of 170/84 mmHg. The baseline ECG demonstrated sinus rhythm. The peak pharmacologic ECG demonstrated no ischemic changes. There were no cardiac dysrhythmias pretest, during pharmacologic infusion, or recovery. There was no complaint of chest discomfort during pharmacologic infusion or recovery. The patient was injected with 14.6 millicuries of technetium 99m Cardiolite and subsequently rest SPECT Cardiolite nuclear imaging was obtained in the horizontal long, vertical long, and short axis views. The patient underwent pharmacologic (Regadenoson) evaluation. The patient was injected with 44.9 millicuries of technetium 99m Cardiolite and subsequently stress SPECT Cardiolite nuclear imaging was obtained in the horizontal long, vertical long, and short axis views. A gated Cardiolite study at peak stress was obtained. The examination was stopped secondary to completion of protocol. Rest and stress SPECT Cardiolite nuclear imaging status post realignment, normalization, and attenuation correction demonstrate no fixed or reversible perfusion defects. There is end systolic thickening and brightening. The gated Cardiolite study demonstrates myocardial thickening and inward wall motion. The reported LVEF is 65%. Impression: 1. Pharmacologic (Regadenoson) evaluation 2. Peak pharmacologic ECG with no ischemic changes. 3. There were no cardiac dysrhythmias pretest, during pharmacologic infusion, or recovery. 5. Rest and stress SPECT Cardiolite nuclear imaging demonstrate relative uniform tracer uptake and myocardial perfusion appearing within normal limits. 6. The gated Cardiolite study reports an LVEF of 65%. This note was generated with [employer] ([employer])ation software. It may contain incorrect words, spelling, and punctuation that were not noted in checking the note before signing.
== END | disposition home or self-care (01) ==
LOC: CVS 07:17
PROVIDERS: PCP Family Medicine Geriatric Medicine; Referring Provider Internal Medicine Cardiovascular Disease; Visit Provider Internal Medicine Cardiovascular Disease
DX: R07.2 Precordial pain (principal); I48.92 Unspecified atrial flutter; I25.708 Atherosclerosis of coronary artery bypass graft(s), unspecified, with other forms of angina pectoris; R06.09 Other forms of dyspnea; R42 Dizziness and giddiness; I25.10 Atherosclerotic heart disease of native coronary artery without angina pectoris; I35.0 Nonrheumatic aortic (valve) stenosis; I35.1 Nonrheumatic aortic (valve) insufficiency; I10 Essential (primary) hypertension; R00.2 Palpitations; Z86.79 Personal history of other diseases of the circulatory system
CPT/HCPCS: 78452; 93017; A9500; A4216; J2785

== ENCOUNTER → 2023-10-10 | Outpatient (CLI) | payer MEDICARE, OTHER, SELFPAY ==
--- NOTE | 2023-10-10 09:59 | ECHOTEE_ITS ---
Reason For Study: Medication LOREE probe 6VT-[id number] (SN [id number]) passed without difficulty. No complications were noted. Cetacaine Topical [place] given X3 orally. Versed 1 mg given slow IVP. Fentanyl 50 mcg given slow IVP. Performed a rapid injection of agitated mix of 9 cc saline and 1cc air to assess for atrial septal defect. Left Ventricle Normal LV size. Left ventricular systolic function is normal. The left ventricular ejection fraction is 60 %. No regional wall motion abnormalities noted. Right Ventricle Normal RV size. Normal systolic function. Atria Bubble contrast study negative for right to left interatrial shunt. Normal left atrium. Normal right atrium. Mitral Valve Normal mitral valve. Aortic Valve Trisinus/trileaflet aortic valve. Moderate diffuse aortic valve calcification. Peak aortic valve gradient 45 mmHg. Mean aortic valve gradient 22 mmHg. Moderate aortic stenosis. Vessels Normal aortic root. The pulmonary artery is normal size. Pericardium No pericardial effusion. MMode/2D Measurements & Calculations LVOT diam: 2.1 cm LVOT area: 3.3 cm2 Doppler Measurements & Calculations Ao V2 max: 335.5 cm/sec LV V1 max: 111.0 cm/sec SV(LVOT): 92.0 ml Ao max P.0 mmHg LV V1 max P.9 mmHg Ao V2 mean: 218.3 cm/sec LV V1 mean P.1 mmHg Ao mean P.4 mmHg LV V1 mean: 84.4 cm/sec Ao V2 VTI: 78.2 cm LV V1 VTI: 27.6 cm AV (velocity ratio): 0.35 CECILY(I,D): 1.2 cm2 CECILY(V,D): 1.1 cm2 ECHO/Echo Transesophageal (LOREE) Interpretation Summary Normal LV size. Left ventricular systolic function is normal. The left ventricular ejection fraction is 60 %. Moderate diffuse aortic valve calcification. Mean aortic valve gradient 22 mmHg. Moderate aortic stenosis. LOREE abreviated due to equipent malfunction Ordering Physician: Leeanna Guy Referring Physician: Leeanna Guy Performed By: Lynn Dawson RCS
== END | disposition home or self-care (01) ==
LOC: CVS 09:58
PROVIDERS: PCP Family Medicine Geriatric Medicine; Referring Provider Physician Assistant Medical; Visit Provider Physician Assistant Medical
DX: I35.0 Nonrheumatic aortic (valve) stenosis (principal)
CPT/HCPCS: 93312; 93320; 93325; J7040; A4216

== ENCOUNTER → 2024-01-12 | Outpatient (CLI) | payer MEDICARE, OTHER, SELFPAY ==
[2024-01-12 11:23] LABS: ALB/GLOB Ratio 1.1 RATIO (0.9-2.4); AST(SGOT) 27 U/L (15-37); Alanine Aminotransfer ALT/SGPT 29 U/L (16-61); Albumin, Serum 3.6 g/dL (3.2-5.0); Alkaline Phosphatase 71 U/L (45-117); Anion Gap 6 (5-15); BUN 26 mg/dL (7-18); BUN/Creat Ratio 18.8 RATIO (10-20); Chloride 107 mmol/L (98-107); Cholesterol 149 mg/dL (200); Creatinine, Serum 1.38 mg/dL (0.70-1.30); EST Glomerular Filtration Rate 52 mL/min (>60); Est Glom Filt Rate - Afr Amer 63 mL/min (>60); Globulin 3.2 g/dL (2.2-4.2); Glucose 111 mg/dL (74-106); High Density Lipoprotein 66 mg/dL; Protein, Total 6.8 g/dL (6.4-8.2); Sodium Level 140 mmol/L (136-145); Triglycerides 124 mg/dL; Very Low Density Lipoprotein 25 mg/dL (5-40)
== END | disposition home or self-care (01) ==
PROVIDERS: PCP Family Medicine Geriatric Medicine; Referring Provider Internal Medicine Cardiovascular Disease; Visit Provider Internal Medicine Cardiovascular Disease
DX: I25.10 Atherosclerotic heart disease of native coronary artery without angina pectoris (principal); R60.0 Localized edema; R06.09 Other forms of dyspnea; R42 Dizziness and giddiness; E78.00 Pure hypercholesterolemia, unspecified; Z98.61 Coronary angioplasty status
CPT/HCPCS: 36415; 80053; 80061

== ENCOUNTER 2024-01-20 10:34 | Observation (INO) | payer MEDICARE, OTHER, SELFPAY ==
[2024-01-20] VITALS (11 sets, daily range): BP systolic 105–172; BP diastolic 64–130; PULSE 59–73; RESP 10–20; TEMP 35.8–36.6; O2SAT 93–99; BMI 36.1; BMI 36.8
--- NOTE | 2024-01-20 10:35 | EKG12_ITS ---
Test Reason : STROKE Blood Pressure : / mmHG Vent. Rate : 075 BPM Atrial Rate : 075 BPM P-R Int : 296 ms QRS Dur : 130 ms QT Int : 434 ms P-R-T Axes : 040 -49 067 degrees QTc Int : 484 ms Sinus rhythm with 1st degree A-V block Left axis deviation Left bundle branch block Abnormal ECG Confirmed by GEORGINA HERNANDEZ, NICOLASA ([id number]), photographic editor REBEL SCHULTZ ([id number]) on 01/24/2024 1:49:52 PM Referred By: KEEGAN Confirmed By:DORON ERICKSON MD
--- NOTE | 2024-01-20 10:35 | CT_ITS ---
STUDY: CT HEAD STROKE PROTOCOL W/O CONTRAST INJECTION REASON FOR EXAM: Male, 88 years old. Neuro deficit, acute, stroke suspected RADIATION DOSAGE (If Supplied By Facility): CTDIvol = ( 47.06 ) mGy, DLP = ( 978.55 ) mGycm TECHNIQUE: Transaxial CT imaging of the brain was performed without administration of intravenous contrast material. Individualized dose optimization techniques were used for this CT. COMPARISON: Comparison is made with prior study dated May 11, 2019. FINDINGS: Normal soft tissue structures. There is hyperostosis frontalis internus. There is mild cerebral atrophy with widening of the extra-axial spaces and ventricular dilatation. There are areas of decreased attenuation within the white matter tracts of the supratentorial brain, consistent with microvascular disease changes. There are small punctate calcifications of the basal ganglia which are seen in the aging brain as a normal variant. Normal brainstem. Normal cerebellum. There is no intracranial hemorrhage. There are no findings of an acute ischemic infarction. Atherosclerotic calcific plaques at the level of the cavernous portions of the internal carotid arteries bilaterally. Normal visualized paranasal sinuses. ASPECT score: 10 CT/STROKE Brain/Head without Cont IMPRESSION: Chronic involutional changes of the brain. N.B. : The above Results were Read Back by Mohan Wharton MD to Oleg Gerber DO, and understanding confirmed on 01/20/2024 10:52:03 (ET). Electronically Signed: Mohan Wharton MD at 10:53 EDT ,
--- NOTE | 2024-01-20 10:36 | CT_ITS ---
STUDY: CTA HEAD AND NECK WITH CONTRAST REASON FOR EXAM: Male, 88 years old. Neuro deficit, acute, stroke suspected RADIATION DOSAGE (If Supplied By Facility): CTDIvol = ( 21.20 ) mGy, DLP = ( 977.69 ) mGycm TECHNIQUE: CT angiography was performed with a multi-detector CT scanner. Data acquisition was obtained from the skull base through the vertex following intravenous administration of IV 100mL Isovue-370. MIP images were reconstructed from the axial data set. Post-processing of the angiographic images was performed, with multiplanar reformation and 3D reconstruction. Individualized dose optimization techniques were used for this CT. COMPARISON: No relevant priors. FINDINGS: Normal bilateral petrous carotid arteries. Normal right cavernous carotid artery with a normal supraclinoid bifurcation. Normal left cavernous carotid artery with a normal supraclinoid bifurcation. Normal right A1 segments of the anterior cerebral artery. Normal left A1 segments of the anterior cerebral artery. Normal intact anterior communicating artery (ACOM). Normal bilateral A2 segments of the anterior cerebral arteries. Normal right M1 and M2 segments of the middle cerebral arteries, with a normal M1 bifurcation. Normal left M1 and M2 segments of the middle cerebral arteries, with a normal M1 bifurcation. Normal right posterior communicating artery (PCOM). Normal left posterior communicating artery (PCOM). Normal bilateral vertebral arteries. Normal basilar artery with a normal basilar bifurcation. The visualized bilateral superior cerebellar (SCA) arteries are normal. Normal bilateral P1, P2 and visualized P3 segments of the posterior cerebral arteries. There is no demonstrated aneurysm of the [place]. Prior CABG. AORTIC ARCH: There is atherosclerotic calcific plaque formation of the aortic arch and great vessels arising from the aortic arch, without a hemodynamically significant stenosis. There is a normal origin of the brachiocephalic, left common carotid, and left subclavian arteries. Atherosclerotic plaque formation at the origin of the right brachiocephalic artery as well as the left subclavian artery. RIGHT CAROTID ARTERIES: Normal right common carotid artery (CCA). Normal right common carotid bulb. There is moderate atherosclerotic plaque formation of the origin of the right internal carotid artery with an estimated stenosis of 50-69% stenosis. Normal visualized cervical portion of the right internal carotid artery. Normal origin of the right external carotid artery (ECA). LEFT CAROTID ARTERIES: Normal left common carotid artery (CCA). Normal left common carotid bulb. There is moderate atherosclerotic plaque formation of the origin of the left internal carotid artery with an estimated stenosis of 50-69% stenosis. Normal visualized cervical portion of the left internal carotid artery. Normal origin of the left external carotid artery (ECA). VERTEBRAL ARTERIES: Normal bilateral vertebral arteries. CT/STROKE CTA Head AND Neck W/Con IMPRESSION: 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 No large vessel occlusion is seen. N.B. : The above Results were Read Back by Mohan Wharton MD to Oleg Gerber DO, and understanding confirmed on 01/20/2024 11:09:39 (ET). Electronically Signed: Mohan Wharton MD at 11:10 EDT ,
--- NOTE | 2024-01-20 10:40 | ED.VIS.STROK ---
HPI History of Present Illness Chief Complaint: Stroke Alert Informant: patient and EMS Narrative Narrative: 88-year-old male is a prehospital stroke alert by EMS. Reportedly family states that he went to bed last night at 2000 hours. When they went to check on him this morning they found difficulty speaking left facial droop and lethargy. Patient noted by EMS to be persistently yawning and having nausea. Patient with multiple medical problems including a CABG history of atrial fibrillation (not on anticoagulants, last documented A-fib October 2021, history of ablation [facility]) hypertension BPH hypercholesterolemia aortic valve stenosis. Son who lives on the same property as him states that he seemed fine last night that he was ambulating on his own ate normally. This morning he went out to the patient's living quarters where he was sitting in the chair. He had difficulty swallowing his protein drink and speaking. Patient states that he only slept about 4 hours last night and is very tired. He typically sleeps in a chair. [facility] Medical History Bilateral lower extremity edema Dyslipidemia COVID-19 COVID Aortic valve stenosis, nonrheumatic Coronary artery disease Hypokalemia Gastroesophageal reflux disease Hyperlipidemia Benign prostate hyperplasia Debility Weakness Pressure injury of left buttock, stage 1 Stenosis, spinal, lumbar Neck pain Segmental and somatic dysfunction of thoracic region Segmental and somatic dysfunction of pelvic region Segmental and somatic dysfunction of lumbar region Segmental and somatic dysfunction of cervical region Degenerative disc disease, cervical Sleep apnea, obstructive History of atrial fibrillation Nonrheumatic aortic (valve) insufficiency Nonrheumatic aortic (valve) stenosis Pure hypercholesterolemia Essential hypertension Neuropathic pain Hypokalemia GERD (gastroesophageal reflux disease) BPH (benign prostatic hyperplasia) Left trigger finger Left carpal tunnel syndrome Benign paroxysmal positional vertigo Fall Dizziness Debility Laceration of head Vertigo Dyspnea on exertion Prinzmetal angina CAD (coronary artery disease) Malignant pericardial effusion Atrial flutter Palpitations Shortness of breath Precordial chest pain Aortocoronary bypass status History of percutaneous transluminal coronary angioplasty Abnormal result of cardiovascular function study, unspecified Pain in limb Dizziness and giddiness Fatigue Pain in left shoulder Atherosclerosis of coronary artery bypass graft(s), unspecified, with other forms of angina pectoris Intermittent claudication Home Medications ?Medication ?Instructions ?Recorded ?Last Taken ?Type tamsulosin 0.4 mg capsule 0.4 mg PO DAILY URINE FLOW 03/06/16 05/10/19 History atorvastatin 40 mg tablet 40 mg PO QHS cholesterol 06/26/18 05/10/19 History aspirin 81 mg tablet,delayed 81 mg PO DAILY heart health 07/04/18 05/10/19 History release (Marisela Low Dose Aspirin) omeprazole 40 mg capsule,delayed 40 mg PO DAILY acid reflux 07/04/18 05/10/19 History release potassium chloride 20 mEq 20 meq PO DAILY supplement 07/04/18 05/10/19 History tablet,extended release acetaminophen 500 mg tablet 1,000 mg (2 x 500 mg) PO Q6H PRN 11/05/21 Unknown Rx PRN Pain Score 1-10 #0 tabs multivitamin 1 tab PO DAILY 04/15/22 Unknown History nitroglycerin 0.4 mg sublingual 0.4 mg sublingual Q5-15M PRN Chest 08/31/22 Unknown Rx tablet Pain #25 tabs furosemide 40 mg tablet 40 mg PO DAILY PRN edema 11/18/22 Unknown History ranolazine 1,000 mg See Rx Instructions .Route 07/13/23 Unknown Rx tablet,extended release,12 hr .COMPLEX #180 tabs Allergy/AdvReac Type Severity Reaction Status Date / Time tramadol (From Ultram) AdvReac Other Verified 01/11/24 14:10 Family History Father CAD (coronary artery disease) CHF (congestive heart failure) Mother Heart disease Brother Diabetes Cancer Hx of CABG CAD (coronary artery disease) Sister COPD (chronic obstructive pulmonary disease) Diabetes Surgical History H/O knee surgery H/O shoulder surgery H/O shoulder surgery History of carpal tunnel surgery History of bilateral knee replacement Status post total knee replacement, right Hx of CABG (~05/2005) History of arthroscopy (~07/2011) H/O cardiac radiofrequency ablation (~10/2006) History of PTCA History of left heart catheterization (LHC) (~09/2007) Social History household members: none Smoking Status: Never smoker alcohol intake: never substance use type: does not use caffeine: No what type of physical activity do you participate in: none seatbelt use: always do you feel safe at home: Yes ROS ROS ED Review of Systems ROS Unobtainable: due to mental status EXAM Physical Exam Const Vital Signs: 01/20/24 10:35 01/20/24 10:35 01/20/24 10:35 Temperature 96.5 F L Temperature Source Axillary Pulse Rate 61 70 60 Respiratory Rate 10 L 18 15 Blood Pressure 172/81 H 159/83 H 156/66 H Blood Pressure Mean 111 108 96 Pulse Ox 93 98 97 Oxygen Delivery Method Room Air Room Air Room Air 01/20/24 10:43 01/20/24 11:05 01/20/24 11:30 Temperature Temperature Source Pulse Rate 59 L 60 Respiratory Rate 20 H 15 Blood Pressure 156/66 H 136/78 H Blood Pressure Mean 96 97 Pulse Ox 99 97 Oxygen Delivery Method Room Air Room Air Room Air Positive well nourished, well developed and obese General Appearance ED: well developed Nutritional Appearance: obese HEENT Reports normocephalic, head/scalp atraumatic and moist mucous membranes Eyes PERRL and EOMs intact bilaterally Neck no lymphadenopathy, supple and no JVD Resp normal respiratory effort and clear to auscultation bilaterally Cardio regular rate, regular rhythm and no murmurs GI normal to inspection, nondistended, normoactive bowel sounds and non-tender Palpation: soft Back/Spine no CVA tenderness and normal ROM Extremity normal to inspection General Extremety ED: Negative for edema General Extremity: Negative for edema Neuro Neuro Narrative: Mild left facial droop. Able to wrinkle eyebrows close eyes no tongue deviation. Opens his eyes to name/voice. Patient appears alert but is frequently yawning. Sensorium / Orientation: alert Motor Exam: strength 5/5 throughout Psych Mood & Affect: Negative for depressed or tearful Skin no rashes or lesions noted and no wounds NIHSS NIHSS Initial: 1a Level of Consciousness: 0 1b LOC Questions (Score 2 if aphasic/stupor): 0 1c LOC Commands (Only score 1st attempt): 0 2 Best Gaze (If aphasic, use reflexive mvmts.): 0 3 Visual: 0 4 Facial Palsy: 1 5 Motor Arm Right (UN = amputation/fusion): 0 5 Motor Arm Left: 0 6 Motor Leg Right: 0 6 Motor Leg Left: 0 7 Limb ataxia (Only + if out of proportion): 0 8 Sensory (Aphasia/stupor=0 or 1, coma=2): 0 9 Best Language: 0 10 Dysarthria (mute, coma=2, intubated=UN): 1 11 Extinction and Inattention (only scored if +): 0 Total Score: 2 MDM MDM MDM Narrative Medical decision making narrative: Differential diagnosis includes but not limited to intracranial hemorrhage acute ischemic stroke seizure metabolic derangement Patient appears in a normal sinus rhythm. Initial head CT showed chronic changes. CTA shows no LVO or dissection. White count 5.8 hemoglobin 12.7 platelet count of 114. Normal coags. Creatinine 1.26 BUN 24. Normal LFTs and troponin. My independent interpretation of the chest x-ray is no acute process. Stroke team was called patient was interviewed by stroke neurologist from [facility] who recommends no tPA as this is a wake-up event. He is significantly better than his initial presentation here in the emergency department and even more so than what he presented with suicide at home. Therefore as he is dramatically improved I think is most likely a TIA obviously his biggest risk factor would be atrial fibrillation not on anticoagulation. However he has not had reported episode of A-fib since 2021. I will speak with the hospitalist regarding admission History & Record Review Discussion w/independent historian: EMS personnel, Patient and Family Additional record(s) reviewed:: Prior outpatient record, Prior ED visit and Prior labs Lab Data Attestation: I reviewed the patient's lab results. Labs: Laboratory Results - last 24 hr 01/20/24 10:50 WBC 5.8 RBC 3.44 L Hgb 12.7 L Hct 37.6 L MCV 109.3 H MCH 36.9 H MCHC 33.8 RDW Std Deviation 59.9 H RDW Coeff of Brigitte 14.9 H Plt Count 114 L MPV 12.0 Immature Gran % (Auto) 0.500 Neut % (Auto) 76.7 H Lymph % (Auto) 6.2 L [place] % (Auto) 12.1 H Eos % (Auto) 4.2 Baso % (Auto) 0.3 Absolute Neuts (auto) 4.4 Absolute Lymphs (auto) 0.36 L Nucleated RBC % 0 PT 14.5 INR 1.1 APTT 27.3 Sodium 140 Potassium 4.1 Chloride 109 H Carbon Dioxide 26.0 Anion Gap 5 BUN 24 H Creatinine 1.26 Estim Creat Clear Calc 51.71 Est GFR (MDRD) Af Amer 70 Est GFR (MDRD) Non-Af 58 L BUN/Creatinine Ratio 19.0 Glucose 145 H Calcium 8.7 Total Bilirubin 0.80 Direct Bilirubin 0.27 AST 20 ALT 24 Alkaline Phosphatase 64 Troponin I High Sens 9 Total Protein 6.2 L Albumin 3.1 L Globulin 3.1 Radiography Diagnostic Testing: Clinical Impression(s) from Imaging Studies Brain CT 01/20/24 10:35 IMPRESSION: Chronic involutional changes of the brain. N.B. : The above Results were Read Back by Mohan Wharton MD to Oleg Gerber DO, and understanding confirmed on 01/20/2024 10:52:03 (ET). Electronically Signed: Mohan Wharton MD at 10:53 EDT , ADDENDUM: 01/20/24 1100 IMPRESSION: Chronic involutional changes of the brain. N.B. : The above Results were Read Back by Mohan Wharton MD to Oleg Gerber DO, and understanding confirmed on 01/20/2024 10:52:03 (ET). Electronically Signed: Mohan Wharton MD at 10:53 EDT , Head/Neck CTA 01/20/24 10:36 IMPRESSION: 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 No large vessel occlusion is seen. N.B. : The above Results were Read Back by Mohan Wharton MD to Oleg Gerber DO, and understanding confirmed on 01/20/2024 11:09:39 (ET). 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 No large vessel occlusion is seen. N.B. : The above Results were Read Back by Mohan Wharton MD to Oleg Gerber DO, and understanding confirmed on 01/20/2024 11:09:39 (ET). Electronically Signed: Mohan Wharton MD at 11:10 EDT , Chest X-Ray 01/20/24 11:23 IMPRESSION: Mild linear atelectasis and scarring or scarring at the lung bases. Electronically Signed: Mohan Wharton MD at 11:57 EDT , EKG Initial EKG: Attestation: I personally reviewed and interpreted this EKG as follows: Comments: Sinus rhythm with first-degree AV block ventricular rate 75 bpm Management Discussion w/another healthcare provider: Hospitalist, [employer] Unit Operator and Radiologist (Dr. Wharton (Radiology)) Discharge Plan Dx/Rx/DC Orders Clinical Impression: Brain TIA, AF (paroxysmal atrial fibrillation) Disposition Disposition: Acute Care Hospital [facility]
[2024-01-20 11:02] LABS: Absolute Lymphocyte Count 0.36 X10^3/uL (0.83-4.51); Absolute Neutrophil Count 4.4 X10^3/uL (2.0-7.7); Basophil# 0.02 X10^3/uL; Basophil% 0.3 % (0-1); Eosinophil# 0.24 X10^3/uL; Eosinophils% 4.2 % (0-5); Hematocrit 37.6 % (40-54); Hemoglobin 12.7 g/dL (13.0-16.5); Lymphocyte # 0.36 X10^3/ul (0.83-4.51); Lymphocyte % 6.2 % (19-41); Mean Corp Hgb Conc 33.8 g/dL (32-36); Mean Corpuscular Hgb 36.9 pg (27.0-32.0); Mean Corpuscular Volume 109.3 fL (80-94); Monocyte% 12.1 % (0-10); NRBC Flagged by Analyzer 0 % (0-5); Neutrophil # 4.42 X10^3/uL (2.7-7.7); Neutrophil % 76.7 % (47-70); POSITIVE DIFFERENTIAL YES; Platelet Count 114 K/mm3 (150-450); RBC Distribution Width CV 14.9 % (11.6-14.6); RBC Distribution Width SD 59.9 fl (35.1-43.9); Red Blood Count 3.44 M/mm3 (4.6-6.2); White Blood Count 5.8 K/mm3 (4.4-11.0)
[2024-01-20 11:09] LABS: International Normalized Ratio 1.1; Partial Thromboplast Time 27.3 Seconds (24.1-36.2); Prothrombin Time (Protime)PT. 14.5 SECONDS (11.7-14.9)
[2024-01-20] MEDS: Ondansetron 4 MG/2 ML Vial IV (11:11)
--- NOTE | 2024-01-20 11:23 | RAD_ITS ---
STUDY: X-RAY CHEST REASON FOR EXAM: Male, 88 years old. Neuro deficit, acute, stroke suspected TECHNIQUE: Single AP portable view of the chest. COMPARISON: Comparison is made with prior study dated January 21, 2023. FINDINGS: EKG electrodes are seen. Stable mild increased markings at the lung bases suggestive of mild atelectasis and/or scarring. There is no demonstrated pleural abnormality. Sternal cerclage wires and vascular clips are present from a prior sternotomy and coronary artery bypass graft procedure (CABG). Normal mediastinum and francis. Normal visualized pulmonary arteries. There is atherosclerotic calcification of the aortic arch with tortuosity. There are diffuse degenerative changes of the visualized thoracic spine. There is degenerative osteoarthritis of the bilateral shoulders. There is no demonstrated abnormality of the visualized soft tissue structures of the upper abdomen. RAD/Chest 1 View IMPRESSION: Mild linear atelectasis and scarring or scarring at the lung bases. Electronically Signed: Mohan Wharton MD at 11:57 EDT ,
[2024-01-20 11:31] LABS: AST(SGOT) 20 U/L (15-37); Alanine Aminotransfer ALT/SGPT 24 U/L (16-61); Albumin, Serum 3.1 g/dL (3.2-5.0); Alkaline Phosphatase 64 U/L (45-117); Anion Gap 5 (5-15); BUN 24 mg/dL (7-18); Bilirubin, Direct 0.27 mg/dL (0.00-0.30); Calcium,Total 8.7 mg/dL (8.5-10.1); Chloride 109 mmol/L (98-107); Creatinine, Serum 1.26 mg/dL (0.70-1.30); EST Glomerular Filtration Rate 58 mL/min (>60); Est Glom Filt Rate - Afr Amer 70 mL/min (>60); Estimated Creatinine Clearance 51.71 ml/min; Globulin 3.1 g/dL (2.2-4.2); Glucose 145 mg/dL (74-106); Potassium 4.1 mmol/L (3.5-5.1); Protein, Total 6.2 g/dL (6.4-8.2); Sodium Level 140 mmol/L (136-145); Troponin-I HS 9 pg/mL (3.0-78.0)
--- NOTE | 2024-01-20 12:30 | MRI_ITS ---
STUDY: MRI BRAIN WITHOUT CONTRAST REASON FOR EXAM: Male, 88 years old. CVA TECHNIQUE: Standardized multiplanar fat and water weighted pulse sequences were obtained. COMPARISON: MRI of the brain dated May 12, 2019. Head CT dated January 20, 2024 FINDINGS: Normal size of the ventricles and extra-axial spaces for the patient''s age. There are a limited number of small white matter hyperintensities, distributed throughout the deep white matter tracts of the cerebral hemispheres, consistent with mild chronic white matter ischemic changes. There is no evidence for recent intracranial ischemia or other cause of cytotoxic edema on diffusion weighted imaging (DWI). Normal T2* images of the brain without demonstrated susceptibility artifact. There is no demonstrated hemosiderin stain. Normal bilateral basal ganglia. Normal thalami. There is no extra-axial fluid accumulation. Normal flow voids within the major intracranial circulation suggesting patency by spin echo criteria. Normal sella turcica, pituitary gland, infundibular stalk, optic chiasm and hypothalamus. Normal tectal plate and pineal gland. Normal midbrain, evon and medulla. Normal cerebellum. Normal basal cisterns. Normal bilateral temporal bones. Normal bilateral internal auditory canals. No demonstrated orbital abnormality, within the constraints of a routine brain study. Normal visualized paranasal sinuses. Normal calvarium and skull base. Normal visualized soft tissue structures. Normal visualized upper cervical spine. MRI/Brain without Contrast IMPRESSION: 1. Involutional changes of the brain, as described above. Electronically Signed: Elmer Mishra MD at 19:38 EDT ,
--- NOTE | 2024-01-20 12:30 | ECHOLC_ITS ---
Reason For Study: TIA/Stroke Procedure This was a limited 2D transthoracic echocardiogram. Exam performed portable in patient room. Left Ventricle Normal LV size. The estimated ejection fraction is 70 %. No evidence for diastolic dysfunction. No regional wall motion abnormalities noted. Right Ventricle Normal RV size. Normal systolic function. Atria The left and right atria are normal. No doppler evidence for ASD. Mitral Valve There is no mitral valve stenosis. Trivial mitral valve insufficiency. Tricuspid Valve There is no tricuspid stenosis. Mild tricuspid valve insufficiency. Pulmonary artery systolic pressure is 45 mmHg. Aortic Valve Severe diffuse aortic valve thickening. Moderate aortic stenosis. No aortic valve insufficiency. Pulmonic Valve There is no pulmonic valvular stenosis. No pulmonic valve insufficiency. Great Vessels Normal aortic root. Pericardium/Pleural No pericardial effusion. Medication Diluted definity 1ml given slow IV push to enhance endocardial definition. MMode/2D Measurements & Calculations LVIDd: 4.5 cm IVSd: 1.2 cm LVOT diam: 2.1 cm LVIDs: 3.1 cm LVPWd: 1.2 cm FS: 31.9 % LVOT area: 3.4 cm2 Doppler Measurements & Calculations Ao V2 max: 335.6 cm/sec LV V1 max: 102.9 cm/sec SV(LVOT): 83.9 ml Ao max P.1 mmHg LV V1 max P.2 mmHg Ao V2 mean: 272.9 cm/sec LV V1 mean P.5 mmHg Ao mean P.7 mmHg LV V1 mean: 74.7 cm/sec Ao V2 VTI: 81.3 cm LV V1 VTI: 24.6 cm AV (velocity ratio): 0.30 CECILY(I,D): 1.0 cm2 CECILY(V,D): 1.0 cm2 TR max rolan: 311.5 cm/sec TR max P.8 mmHg ECHO/Echo Limited w/Contrast Interpretation Summary The estimated ejection fraction is 70 %. No evidence for diastolic dysfunction. Trivial mitral valve insufficiency. Moderate aortic stenosis. Ordering Physician: Lele Zendejas Referring Physician: [facility] Performed By: Gisel Jose RDCS, RVT
--- NOTE | 2024-01-20 12:44 | PCM.HP.STD ---
HPI - General General Date of Admission: 01/20/24 Date of Service: 01/20/24 Chief Complaint: Slurred speech HPI Narrative ISA MILES, is a 88 M with past medical history including coronary artery disease, hypertension dyslipidemia paroxysmal A-fib who was brought to the emergency department by his son after he found the dad to be confused. Patient also was reported to have difficulty swallowing as well as experiencing some slurred speech. Son was concerned and patient was brought to the emergency department. Underwent subsequent evaluation in the ED head CT was negative for acute CVA. Patient's symptoms apparently did resolve while in the emergency department. Decision was made to admit patient to a monitored bed for further management FORMERLY [facility] Medical History Bilateral lower extremity edema Dyslipidemia COVID-19 COVID Aortic valve stenosis, nonrheumatic Coronary artery disease Hypokalemia Gastroesophageal reflux disease Hyperlipidemia Benign prostate hyperplasia Debility Weakness Pressure injury of left buttock, stage 1 Stenosis, spinal, lumbar Neck pain Segmental and somatic dysfunction of thoracic region Segmental and somatic dysfunction of pelvic region Segmental and somatic dysfunction of lumbar region Segmental and somatic dysfunction of cervical region Degenerative disc disease, cervical Sleep apnea, obstructive History of atrial fibrillation Nonrheumatic aortic (valve) insufficiency Nonrheumatic aortic (valve) stenosis Pure hypercholesterolemia Essential hypertension Neuropathic pain Hypokalemia GERD (gastroesophageal reflux disease) BPH (benign prostatic hyperplasia) Left trigger finger Left carpal tunnel syndrome Benign paroxysmal positional vertigo Fall Dizziness Debility Laceration of head Vertigo Dyspnea on exertion Prinzmetal angina CAD (coronary artery disease) Malignant pericardial effusion Atrial flutter Palpitations Shortness of breath Precordial chest pain Aortocoronary bypass status History of percutaneous transluminal coronary angioplasty Abnormal result of cardiovascular function study, unspecified Pain in limb Dizziness and giddiness Fatigue Pain in left shoulder Atherosclerosis of coronary artery bypass graft(s), unspecified, with other forms of angina pectoris Intermittent claudication Home Medications ?Medication ?Instructions ?Recorded ?Last Taken ?Type tamsulosin 0.4 mg capsule 0.4 mg PO DAILY URINE FLOW 03/06/16 05/10/19 History atorvastatin 40 mg tablet 40 mg PO QHS cholesterol 06/26/18 05/10/19 History aspirin 81 mg tablet,delayed 81 mg PO DAILY heart health 07/04/18 05/10/19 History release (Marisela Low Dose Aspirin) omeprazole 40 mg capsule,delayed 40 mg PO DAILY acid reflux 07/04/18 05/10/19 History release potassium chloride 20 mEq 20 meq PO DAILY supplement 07/04/18 05/10/19 History tablet,extended release acetaminophen 500 mg tablet 1,000 mg (2 x 500 mg) PO Q6H PRN 11/05/21 Unknown Rx PRN Pain Score 1-10 #0 tabs multivitamin 1 tab PO DAILY 04/15/22 Unknown History nitroglycerin 0.4 mg sublingual 0.4 mg sublingual Q5-15M PRN Chest 08/31/22 Unknown Rx tablet Pain #25 tabs furosemide 40 mg tablet 40 mg PO DAILY PRN edema 11/18/22 Unknown History ranolazine 1,000 mg See Rx Instructions .Route 07/13/23 Unknown Rx tablet,extended release,12 hr .COMPLEX #180 tabs Allergy/AdvReac Type Severity Reaction Status Date / Time tramadol (From Ultram) AdvReac Other Verified 01/11/24 14:10 Family History Father CAD (coronary artery disease) CHF (congestive heart failure) Mother Heart disease Brother Diabetes Cancer Hx of CABG CAD (coronary artery disease) Sister COPD (chronic obstructive pulmonary disease) Diabetes Surgical History H/O knee surgery H/O shoulder surgery H/O shoulder surgery History of carpal tunnel surgery History of bilateral knee replacement Status post total knee replacement, right Hx of CABG (~05/2005) History of arthroscopy (~07/2011) H/O cardiac radiofrequency ablation (~10/2006) History of PTCA History of left heart catheterization (LHC) (~09/2007) Social History household members: none Smoking Status: Never smoker alcohol intake: never substance use type: does not use caffeine: No what type of physical activity do you participate in: none seatbelt use: always do you feel safe at home: Yes ROS ROS Narrative GENERAL: denies fever, chills, night sweats, weight loss, anorexia HEENT: denies headache, sinus congestion, or drainage, dysphagia RESPIRATORY: denies cough, sputum production, shortness of breath, dyspnea on exertion CARDIAC: denies chest pain, palpitations, orthopnea, PND GASTROINTESTINAL: denies abdominal pain, nausea, vomiting, melena, GENITOURINARY: denies dysuria, urgency, frequency, heamaturia EXTREMITY: denies swelling MUSCULOSKELETAL: denies current joint pain or tenderness NEUROLOGIC: Slurred speech and difficulty swallowing HEMATOLOGIC: denies easy bruising and/or hemorrhage INTEGUMENT: denies rashes PSYCHIATRIC: denies suicidal or homicidal ideation Vital Signs Vital Signs Vital Signs: 01/20/24 10:35 01/20/24 10:35 01/20/24 10:35 Temperature 96.5 F L Temperature Source Axillary Pulse Rate 61 70 60 Respiratory Rate 10 L 18 15 Blood Pressure 172/81 H 159/83 H 156/66 H Blood Pressure Mean 111 108 96 Pulse Ox 93 98 97 Oxygen Delivery Method Room Air Room Air Room Air 01/20/24 10:43 01/20/24 11:05 01/20/24 11:30 Temperature Temperature Source Pulse Rate 59 L 60 Respiratory Rate 20 H 15 Blood Pressure 156/66 H 136/78 H Blood Pressure Mean 96 97 Pulse Ox 99 97 Oxygen Delivery Method Room Air Room Air Room Air 01/20/24 12:00 01/20/24 12:00 01/20/24 12:30 Temperature Temperature Source Pulse Rate 65 65 65 Respiratory Rate 16 16 16 Blood Pressure 138/91 H 138/91 H 145/90 H Blood Pressure Mean 106 106 108 Pulse Ox 98 98 98 Oxygen Delivery Method Room Air Room Air Room Air Weight Weight: 111.13 kg Body Mass Index (BMI) 36.1 Results Lab / Micro Data 01/20/24 10:50 01/20/24 10:50 Labs: Laboratory Results - last 24 hr 01/20/24 10:50: WBC 5.8, RBC 3.44 L, Hgb 12.7 L, Hct 37.6 L, MCV 109.3 H, MCH 36.9 H, MCHC 33.8, RDW Std Deviation 59.9 H, RDW Coeff of Brigitte 14.9 H, Plt Count 114 L, MPV 12.0, Immature Gran % (Auto) 0.500, Neut % (Auto) 76.7 H, Lymph % (Auto) 6.2 L, [place] % (Auto) 12.1 H, Eos % (Auto) 4.2, Baso % (Auto) 0.3, Absolute Neuts (auto) 4.4, Absolute Lymphs (auto) 0.36 L, Nucleated RBC % 0, PT 14.5, INR 1.1, APTT 27.3, Sodium 140, Potassium 4.1, Chloride 109 H, Carbon Dioxide 26.0, Anion Gap 5, BUN 24 H, Creatinine 1.26, Estim Creat Clear Calc 51.71, Est GFR (MDRD) Af Amer 70, Est GFR (MDRD) Non-Af 58 L, BUN/Creatinine Ratio 19.0, Glucose 145 H, Calcium 8.7, Total Bilirubin 0.80, Direct Bilirubin 0.27, AST 20, ALT 24, Alkaline Phosphatase 64, Troponin I High Sens 9, Total Protein 6.2 L, Albumin 3.1 L, Globulin 3.1 Imaging Radiology Impression Brain CT 01/20/24 10:35 IMPRESSION: Chronic involutional changes of the brain. N.B. : The above Results were Read Back by Mohan Wharton MD to Oleg Gerber DO, and understanding confirmed on 01/20/2024 10:52:03 (ET). Electronically Signed: Mohan Wharton MD at 10:53 EDT , ADDENDUM: 01/20/24 1100 IMPRESSION: Chronic involutional changes of the brain. N.B. : The above Results were Read Back by Mohan Wharton MD to Oleg Gerber DO, and understanding confirmed on 01/20/2024 10:52:03 (ET). Electronically Signed: Mohan Wharton MD at 10:53 EDT , Head/Neck CTA 01/20/24 10:36 IMPRESSION: 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 No large vessel occlusion is seen. N.B. : The above Results were Read Back by Mohan Wharton MD to Oleg Gerber DO, and understanding confirmed on 01/20/2024 11:09:39 (ET). 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 No large vessel occlusion is seen. N.B. : The above Results were Read Back by Mohan Wharton MD to Oleg Gerber DO, and understanding confirmed on 01/20/2024 11:09:39 (ET). Electronically Signed: Mohan Wharton MD at 11:10 EDT , Chest X-Ray 01/20/24 11:23 IMPRESSION: Mild linear atelectasis and scarring or scarring at the lung bases. Electronically Signed: Mohan Wharton MD at 11:57 EDT , Assessment & Plan Assessment/Plan (1) Brain TIA: PLAN: Plan Patient is an 88-year-old gentleman presented with slurred speech and difficulty swallowing. Patient symptoms apparently did resolve in the emergency 1. Transient ischemic attack ? Patient presented with slurred speech and some dysphagia. Symptoms had apparently resolved in the emergency department. Patient has been admitted to a monitored bed placed on every 4 neurochecks as part of his evaluation ordered CTA of the head and neck MRI as well as a 2D echo. Patient was started on antiplatelet therapy with aspirin. Patient is already on statin therapy did continue 2. Coronary artery disease ? With previous CABG and subsequent PCI. Patient currently on statin therapy, nitrates as well as aspirin 3. Paroxysmal A. fib ? With previous history of radiofrequency ablation 4. Dyslipidemia -Patient is on statin therapy, continued at home dose 5. BPH -on tamsulosin 6. Degenerative joint disease ? With history of bilateral knee replacement 7. Class II obesity with BMI of 36.4 weight loss advised 8. DVT prophylaxis ? SC Lovenox Time spent in the patient's overall evaluation,decision-making process, review of diagnostic data, adjustment of management, discussion with other providers, nursing nursing and ancillary staff involved in patient's care documentation,75 Minutes Advance planning; did discuss with the patient and family regarding advanced directives as well as CODE STATUS. Did explain the various scenarios involved ( FULL CODE, DNR CCA, DNR CCA with no intubation, and DNR CC and what each meant) patient elected to be DNR CCA no intubation. Order was placed. Time spent on discussion 18 minutes. Charges/Coding Visit Charges Inpatient E&M: 23404 Init Hosp L3 Procedures Hospitalists Procedures: 05199 Advncd Care Plan 30 Min
[2024-01-20 13:37] LABS: Bacteria 0 SEEN /hpf (None Seen); Mucous, Urine 0 SEEN /hpf (<or=2+); Red Blood Cells-Urine 0 SEEN /hpf (0-5); Squamous Epithelial Cells - UA 0 SEEN /hpf (0-5)
[2024-01-20 13:44] LABS: Color, Urine Yellow (Yellow); Glucose, Dipstick Normal (Normal); Ketone-Dipstick Negative (Negative); Leukocyte Esterase-Dipstick 25 /ul (Negative); Nitrite-Dipstick Negative (Negative); Occult Blood-Urine Negative /ul (Negative); Protein-Dipstick Negative (Negative); Urine Bilirubin Dipstick Negative (Negative); Urine Clarity Clear (Clear); Urine Urobilinogen Normal (Normal)
[2024-01-20 13:53] LABS: White Blood Cells 0-5 SEEN /hpf (0-5)
[2024-01-20] MEDS: 0.9% Normal Saline (1000mL) 1,000 ML 100 ML IV (16:22)
[2024-01-20] MEDS: Aspirin 81 MG TAB.CHEW PO (16:22)
[2024-01-20] MEDS: Acetaminophen 325 MG Tablet 650 MG PO (16:22)
[2024-01-20] MEDS: Potassium Chloride Oral Tablet 20 MEQ PO (16:23)
[2024-01-20] MEDS: Pantoprazole Sodium 40 MG Tablet PO (16:23)
[2024-01-20] MEDS: Tamsulosin HCl 0.4 MG Capsule PO (16:23)
[2024-01-20] MEDS: Ensure Plus High Protein 120 ML LIQUID PO ×2 (16:24→22:06)
[2024-01-20] MEDS: Acetaminophen 500 MG Tablet 1000 MG PO (18:45)
[2024-01-20] MEDS: Ranolazine 500 MG Tablet 1000 MG PO (22:06)
[2024-01-20] MEDS: Atorvastatin Calcium 40 MG Tablet PO (22:06)
[2024-01-21 04:56] VITALS: BMI 36.8
[2024-01-21 06:30] VITALS: BP 111/60; PULSE 65; RESP 18; TEMP 36.1; O2SAT 94
[2024-01-21] MEDS: 0.9% Normal Saline (1000mL) 1,000 ML 100 ML IV (06:43)
[2024-01-21 06:53] VITALS: O2SAT 95
[2024-01-21 07:55] LABS: Absolute Lymphocyte Count 0.55 X10^3/uL (0.83-4.51); Basophil# 0.02 X10^3/uL; Basophil% 0.3 % (0-1); Eosinophil# 0.19 X10^3/uL; Eosinophils% 3.3 % (0-5); Hematocrit 36.6 % (40-54); Hemoglobin 12.4 g/dL (13.0-16.5); Lymphocyte # 0.55 X10^3/ul (0.83-4.51); Lymphocyte % 9.5 % (19-41); Mean Corp Hgb Conc 33.9 g/dL (32-36); Mean Corpuscular Hgb 37.1 pg (27.0-32.0); Mean Corpuscular Volume 109.6 fL (80-94); Mean Platelet Vol. 12.3 fl (6.2-12.0); Monocyte# 0.96 X10^3/uL; Monocyte% 16.7 % (0-10); NRBC Flagged by Analyzer 0 % (0-5); Neutrophil # 4.02 X10^3/uL (2.7-7.7); Neutrophil % 69.9 % (47-70); POSITIVE DIFFERENTIAL YES; Platelet Count 121 K/mm3 (150-450); RBC Distribution Width CV 14.9 % (11.6-14.6); RBC Distribution Width SD 61.1 fl (35.1-43.9); Red Blood Count 3.34 M/mm3 (4.6-6.2); White Blood Count 5.8 K/mm3 (4.4-11.0)
--- NOTE | 2024-01-21 08:09 | CASEMGMT ---
Social Work- Pt has directives on chart naming Benjie as primary agent and Curtis as secondary agent. ALESHA Vines
[2024-01-21 08:15] VITALS: BP 122/65; PULSE 70; RESP 18; TEMP 36.8; O2SAT 94
[2024-01-21 08:19] LABS: Phosphorus 3.6 mg/dL (2.5-4.9)
[2024-01-21 08:27] LABS: Anion Gap 6 (5-15); BUN 21 mg/dL (7-18); BUN/Creat Ratio 17.6 RATIO (10-20); Calcium,Total 8.9 mg/dL (8.5-10.1); Chloride 111 mmol/L (98-107); Cholesterol 135 mg/dL (200); Creatinine, Serum 1.19 mg/dL (0.70-1.30); EST Glomerular Filtration Rate 62 mL/min (>60); Est Glom Filt Rate - Afr Amer 75 mL/min (>60); Estimated Creatinine Clearance 55.22 ml/min; Glucose 108 mg/dL (74-106); High Density Lipoprotein 63 mg/dL; Magnesium 2.5 mg/dL (1.6-2.6); Potassium 4.3 mmol/L (3.5-5.1); Sodium Level 141 mmol/L (136-145); Triglycerides 95 mg/dL; Very Low Density Lipoprotein 19 mg/dL (5-40)
--- NOTE | 2024-01-21 08:36 | PCM.DC.SUM ---
Providers Date of Admission: 01/20/24 Date of Discharge: 01/21/24 Primary Care Physician: Dr. Kaiser Pan MD Consultations 01/20/24 14:19 Consult: Tele-Neurology Routine Consulting Provider: [facility] Reason for Consult: Acute Ischemic Stroke/TIA EMERGENT Consult: No MD Notified: Yes Date Notified: 01/20/24 Time Notified: 14:35 Method of Notification: Answering Service Nursing Unit Staff Notify [facility] of Tele-Neurology Consult: Yes Reason For Visit: TIA Diagnosis Discharge Diagnosis (1) Brain TIA: Status: Acute Code(s): G45.9 - Transient cerebral ischemic attack, unspecified Plan Patient is an 88-year-old gentleman presented with slurred speech and difficulty swallowing. Patient symptoms apparently did resolve in the emergency 1. Transient ischemic attack ? Patient presented with slurred speech and some dysphagia. Symptoms had apparently resolved in the emergency department. Patient has been admitted to a monitored bed placed on every 4 neurochecks as part of his evaluation ordered CTA of the head and neck MRI as well as a 2D echo. Patient was started on antiplatelet therapy with aspirin. Patient is already on statin therapy did continue ? 01/20/2027; MRI was negative for CVA. CT angio did show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 No large vessel occlusion is seen. Patient was discharged a day following his admission 2. Coronary artery disease ? With previous CABG and subsequent PCI. Patient currently on statin therapy, nitrates as well as aspirin 3. Paroxysmal A. fib ? With previous history of radiofrequency ablation 4. Dyslipidemia -Patient is on statin therapy, continued at home dose 5. BPH -on tamsulosin 6. Degenerative joint disease ? With history of bilateral knee replacement 7. Class II obesity with BMI of 36.4 weight loss advised 8. DVT prophylaxis ? ND Lovenox Time spent in the patient's overall evaluation,decision-making process, review of diagnostic data, adjustment of management, discussion with other providers, nursing nursing and ancillary staff involved in patient's care documentation, 32 minutes Medications at Discharge Home Medications tamsulosin 0.4 mg capsule 0.4 mg PO DAILY URINE FLOW 03/06/16 atorvastatin 40 mg tablet 40 mg PO QHS cholesterol 06/26/18 aspirin 81 mg tablet,delayed release (Marisela Low Dose Aspirin) 81 mg PO DAILY [facility] 07/04/18 omeprazole 40 mg capsule,delayed release 40 mg PO DAILY acid reflux 07/04/18 potassium chloride 20 mEq tablet,extended release 20 meq PO DAILY supplement 07/04/18 acetaminophen 500 mg tablet 1,000 mg (2 x 500 mg) PO Q6H PRN PRN Pain Score 1-10 #0 tabs 11/05/21 multivitamin 1 tab PO DAILY 04/15/22 nitroglycerin 0.4 mg sublingual tablet 0.4 mg sublingual Q5-15M PRN Chest Pain #25 tabs 08/31/22 furosemide 40 mg tablet 40 mg PO DAILY PRN edema 11/18/22 ranolazine 1,000 mg tablet,extended release,12 hr See Rx Instructions .Route .COMPLEX #180 tabs 07/13/23 Physical Exam Narrative GENERAL: cooperative HEENT: Atraumatic; normocephalic EYES; Anicteric, Normal Conjunctiva NECK; supple, normal thyroid, RESPIRATORY: Diminished to auscultation CARDIOVASCULAR: Regular S1 S2, GI: soft, normoactive bowel sounds, : No Renal angle tenderness; EXTREMITIES: No edema, no clubbing, MUSCULOSKELETAL: no muscle wasting NEURO: Awake; no lateralizing signs. SKIN: No Rash PSYCH; Flat affect Weight / BMI Weight Weight: 113 kg Body Mass Index (BMI) 36.8 ABG / Lab / Microbiology Data 01/21/24 06:10 01/21/24 06:10 Laboratory: Laboratory Results - last 24 hr 01/20/24 10:50: WBC 5.8, RBC 3.44 L, Hgb 12.7 L, Hct 37.6 L, MCV 109.3 H, MCH 36.9 H, MCHC 33.8, RDW Std Deviation 59.9 H, RDW Coeff of Brigitte 14.9 H, Plt Count 114 L, MPV 12.0, Immature Gran % (Auto) 0.500, Neut % (Auto) 76.7 H, Lymph % (Auto) 6.2 L, [place] % (Auto) 12.1 H, Eos % (Auto) 4.2, Baso % (Auto) 0.3, Absolute Neuts (auto) 4.4, Absolute Lymphs (auto) 0.36 L, Nucleated RBC % 0, PT 14.5, INR 1.1, APTT 27.3, Sodium 140, Potassium 4.1, Chloride 109 H, Carbon Dioxide 26.0, Anion Gap 5, BUN 24 H, Creatinine 1.26, Estim Creat Clear Calc 51.71, Est GFR (MDRD) Af Amer 70, Est GFR (MDRD) Non-Af 58 L, BUN/Creatinine Ratio 19.0, Glucose 145 H, Calcium 8.7, Total Bilirubin 0.80, Direct Bilirubin 0.27, AST 20, ALT 24, Alkaline Phosphatase 64, Troponin I High Sens 9, Total Protein 6.2 L, Albumin 3.1 L, Globulin 3.1 01/20/24 13:30: Urine Color Yellow, Urine Clarity Clear, Urine pH 7.0, Ur Specific [place] 1.010, Urine Protein Negative, Urine Glucose (UA) Normal, Urine Ketones Negative, Urine Occult Blood Negative, Urine Nitrite Negative, Urine Bilirubin Negative, Urine Urobilinogen Normal, Ur Leukocyte Esterase 25 H, Urine RBC 0 SEEN, Urine WBC 0-5 SEEN, Ur Squamous Epith Cells 0 SEEN, Urine Bacteria 0 SEEN, Urine Mucus 0 SEEN 01/21/24 06:10: WBC 5.8, RBC 3.34 L, Hgb 12.4 L, Hct 36.6 L, MCV 109.6 H, MCH 37.1 H, MCHC 33.9, RDW Std Deviation 61.1 H, RDW Coeff of Brigitte 14.9 H, Plt Count 121 L, MPV 12.3 H, Immature Gran % (Auto) 0.300, Neut % (Auto) 69.9, Lymph % (Auto) 9.5 L, [place] % (Auto) 16.7 H, Eos % (Auto) 3.3, Baso % (Auto) 0.3, Absolute Neuts (auto) 4.0, Absolute Lymphs (auto) 0.55 L, Nucleated RBC % 0, Sodium 141, Potassium 4.3, Chloride 111 H, Carbon Dioxide 24.0, Anion Gap 6, BUN 21 H, Creatinine 1.19, Estim Creat Clear Calc 55.22, Est GFR (MDRD) Af Amer 75, Est GFR (MDRD) Non-Af 62, BUN/Creatinine Ratio 17.6, Glucose 108 H, Calcium 8.9, Phosphorus 3.6, Magnesium 2.5, Triglycerides 95, Cholesterol 135, LDL Cholesterol 53, VLDL Cholesterol 19, HDL Cholesterol 63 Radiography Diagnostic Testing: Radiology Impression Brain CT 01/20/24 10:35 IMPRESSION: Chronic involutional changes of the brain. N.B. : The above Results were Read Back by Mohan Wharton MD to Oleg Gerber DO, and understanding confirmed on 01/20/2024 10:52:03 (ET). Electronically Signed: Mohan Wharton MD at 10:53 EDT , ADDENDUM: 01/20/24 1100 IMPRESSION: Chronic involutional changes of the brain. N.B. : The above Results were Read Back by Mohan Wharton MD to Oleg Gerber DO, and understanding confirmed on 01/20/2024 10:52:03 (ET). Electronically Signed: Mohan Wharton MD at 10:53 EDT , Head/Neck CTA 01/20/24 10:36 IMPRESSION: 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 No large vessel occlusion is seen. N.B. : The above Results were Read Back by Mohan Wharton MD to Oleg Gerber DO, and understanding confirmed on 01/20/2024 11:09:39 (ET). 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 No large vessel occlusion is seen. N.B. : The above Results were Read Back by Mohan Wharton MD to Oleg Guadalupe Guerra , DO, and understanding confirmed on 01/20/2024 11:09:39 (ET). Electronically Signed: Mohan Wharton MD at 11:10 EDT , Chest X-Ray 01/20/24 11:23 IMPRESSION: Mild linear atelectasis and scarring or scarring at the lung bases. Electronically Signed: Mohan Wharton MD at 11:57 EDT , Brain MRI 01/20/24 12:30 IMPRESSION: 1. Involutional changes of the brain, as described above. Electronically Signed: Elmer Mishra MD at 19:38 EDT , D/C Instructions Discharge Diet: No restrictions Discharge Activity: Return to Normal Activity Call your doctor if you observe: Fever of 101 or Higher, Shortness of breath, Fainting spells and Chest pain Meaningful Use Info Meaningful Use Meaningful Use Diagnoses (Choose all that apply): None applicable Ischemic Stroke Statin Dosing Therapy Reference: STATIN DOSE THERAPY REFERENCE: * Patients > 75 years receive moderate or high dose statin therapy. * Patients 75 years or YOUNGER should receive HIGH intensity statin dose unless contraindicated. You will be required to document reason for non-treatment if statin daily dose does not meet guidelines. HIGH DOSE STATIN THERAPY DAILY Atorvastatin > than or = to 40 mg Rosuvastatin > than or = to 20 mg Amlodipine + Atorvastatin > than or = to 2.5/40 mg Ezetimibe + Simvastatin 10/80 mg Simvastatin 80mg Discharge Plan Admission Admit Date/Time: 01/20/24 12:06 Attending Provider: Lele Zendejas Primary Care Provider: [facility] Consulting Providers: Yung Mckinney; Roxy Hogue; Sera Coates; Phyllis Wheeler; Jerri Grace; Rikki Tate; Anita Jasso; Gavin Bhagat; Marco Shields; Gorge Piper; Anna Montano; Cal Pedroza; Jacquelyn Wild; Gustavo Cuello; Alfred Whalen; Tomer Yu; Zane Milligan; Jose Guadalupe Chung; Debby Suarez; Lucretia Jesus Discharge Orders/Prescriptions Prescriptions: Continued aspirin [Marisela Low Dose Aspirin] 81 mg tablet,delayed release (DR/EC) 81 mg PO DAILY omeprazole 40 mg capsule,delayed release(DR/EC) 40 mg PO DAILY potassium chloride 20 mEq tablet extended release 20 meq PO DAILY multivitamin Tablet 1 tab PO DAILY tamsulosin 0.4 MG capsule 0.4 mg PO DAILY acetaminophen 500 mg Tablet 1,000 mg PO Q6H PRN PRN (Reason: Pain Score 1-10) Qty: 0 0RF atorvastatin 40 mg tablet 40 mg PO QHS nitroglycerin 0.4 mg tablet, sublingual 0.4 mg SUBLINGUAL Q5-15M PRN (Reason: Chest Pain) Qty: 25 3RF furosemide 40 mg tablet 40 mg PO DAILY PRN (Reason: edema) Patient Comments: had been taking it every day for x2 weeks ranolazine 1,000 mg tablet extended release 12 hr See Rx Instructions .ROUTE .COMPLEX Qty: 180 3RF Dose Instruction: TAKE 1 TABLET TWICE A DAY FOR HEART Rx Instructions: TAKE 1 TABLET TWICE A DAY FOR HEART Referrals / Follow Up: [facility] Pan Chi, MD [Primary Care Provider] - Within 1 Week Disposition Disposition (needs filled in before D/C Order can be placed): Home, Self Care Charges/Coding Visit Charges Inpatient E&M: 79839 Disch Hosp >30min
--- NOTE | 2024-01-21 08:43 | CASEMGMT ---
Social Work PHQ-9 completed as testing negative for stroke at this time. JOHANNA Seaman
--- NOTE | 2024-01-21 09:01 | CASEMGMT ---
Order for DC placed. RN CM to pt room at this time. Pt denies needs at home and states that he feels safe and comfortable discharging home today with his son ad no additional needs. Pt denies further questions or concerns.
[2024-01-21] MEDS: Enoxaparin 40 MG/0.4 ML Syringe SC (09:44)
[2024-01-21] MEDS: Ranolazine 500 MG Tablet 1000 MG PO (09:44)
[2024-01-21] MEDS: Potassium Chloride Oral Tablet 20 MEQ PO (09:44)
[2024-01-21] MEDS: Tamsulosin HCl 0.4 MG Capsule PO (09:45)
[2024-01-21] MEDS: Ensure Plus High Protein 120 ML LIQUID PO (09:45)
[2024-01-21] MEDS: Pantoprazole Sodium 40 MG Tablet PO (09:45)
--- NOTE | 2024-01-21 11:02 | NEURO.CONS ---
Assessment and Plan: Neuro Assessment/Plan 88 yo presenting with symptoms consistent with a TIA. Has ho afib and not on blood thinners because appears to be proxysmal and is rarely in afib based on histoy. [id number] score is 5 given this is likely a TIA which imparts a 6.7% yearly risk of stroke. Discussed secondary prevention with son and pt - they wanted to hold off on starting anticoagulation until speaking with cardiology. Expressed that is ok but standard of care-[place] we should at least place him on DAPT for TIA treatment. If cardiology would like to discuss anticoagulation with stroke team, can message me via Backline. Also discussed considering termination clerk heart monitoring to assess if he is silently in afib and family wanted to try using their smartwatch to do so. TIA, etiology likely cardioembolic - vessels are clear of signficant athero, MRI brain without stroke consistent with TIA. - Anti-platelet medication: Aspirin 81 mg daily + plavix 75mg for 21 days, then ASA 81mg alone - Occupational/ Physical therapy consults - NPO until swallow evaluation. IVF until able to take po - DVT prophylaxis with SCDs and heparin SQ - Vascular risk factor modification. The following are the recommended guidelines: LDL Goal < 70 (LDL 58) Smoking Cessation - pt nonsmoker Diabetes Management correction blood pressure control should achieve <130/80 mmHg. BP management should aim to achieve detention contorl in a reasonable amount of time, taking into consideration the individual patient's requirements and characteristics. Weight Management: Goal for BMI is 18.5 -24.9 kg/m2 Alcohol: No more than 2 drinks/day for men or 1 drink/day for non- women - Promote lifestyle modification: weight control, physical activity, moderation of alcohol intake, moderate sodium intake. Followup with PCP in 1-2 weeks, and in Neurology clinic in 6-12 weeks HPI Consult Data Date of Consult: 01/21/24 HPI Narrative HPI Narrative: ISA MILES, is a 88 M who presents with slurred speech, generalized weakness. Pt states he feels back to normal now. Pt states he took all his morning and PM pills all together. When he woke up the next day broke out in the shakes and and sweats when having a BM which is atypical. When son saw him he had slurred speech and droop on L side of his face. Usually when he has taken too many meds together, he can eat and drink something and feels better. This time he was not able to really speak and swallow. Never had a stroke before, does have ho afib, was on blood thinners in past for heart issues and has been taken off because his symptoms are stable. Of his medications, really the ranexa is twice a days, did not taken a nitroglycerine for a long time. Symptopms lasted largely 2-3 hrs. Pt has not had afib in a while, in the chart last documented was in 2021. BP with EMS was 160 systolic and normally his BP is 100-120s [facility] Medical History Bilateral lower extremity edema Dyslipidemia COVID-19 COVID Aortic valve stenosis, nonrheumatic Coronary artery disease Hypokalemia Gastroesophageal reflux disease Hyperlipidemia Benign prostate hyperplasia Debility Weakness Pressure injury of left buttock, stage 1 Stenosis, spinal, lumbar Neck pain Segmental and somatic dysfunction of thoracic region Segmental and somatic dysfunction of pelvic region Segmental and somatic dysfunction of lumbar region Segmental and somatic dysfunction of cervical region Degenerative disc disease, cervical Sleep apnea, obstructive History of atrial fibrillation Nonrheumatic aortic (valve) insufficiency Nonrheumatic aortic (valve) stenosis Pure hypercholesterolemia Essential hypertension Neuropathic pain Hypokalemia GERD (gastroesophageal reflux disease) BPH (benign prostatic hyperplasia) Left trigger finger Left carpal tunnel syndrome Benign paroxysmal positional vertigo Fall Dizziness Debility Laceration of head Vertigo Dyspnea on exertion Prinzmetal angina CAD (coronary artery disease) Malignant pericardial effusion Atrial flutter Palpitations Shortness of breath Precordial chest pain Aortocoronary bypass status History of percutaneous transluminal coronary angioplasty Abnormal result of cardiovascular function study, unspecified Pain in limb Dizziness and giddiness Fatigue Pain in left shoulder Atherosclerosis of coronary artery bypass graft(s), unspecified, with other forms of angina pectoris Intermittent claudication Home Medications ?Medication ?Instructions ?Recorded ?Last Taken ?Type tamsulosin 0.4 mg capsule 0.4 mg PO DAILY URINE FLOW 03/06/16 01/19/24 History atorvastatin 40 mg tablet 40 mg PO QHS cholesterol 06/26/18 01/19/24 History aspirin 81 mg tablet,delayed 81 mg PO DAILY heart health 07/04/18 01/19/24 History release (Marisela Low Dose Aspirin) omeprazole 40 mg capsule,delayed 40 mg PO DAILY acid reflux 07/04/18 01/19/24 History release potassium chloride 20 mEq 20 meq PO DAILY supplement 07/04/18 01/19/24 History tablet,extended release acetaminophen 500 mg tablet 1,000 mg (2 x 500 mg) PO Q6H PRN 11/05/21 Unknown Rx PRN Pain Score 1-10 #0 tabs multivitamin 1 tab PO DAILY 04/15/22 01/19/24 History nitroglycerin 0.4 mg sublingual 0.4 mg sublingual Q5-15M PRN Chest 08/31/22 Unknown Rx tablet Pain #25 tabs furosemide 40 mg tablet 40 mg PO DAILY PRN edema 11/18/22 01/19/24 History ranolazine 1,000 mg See Rx Instructions .Route 07/13/23 01/19/24 Rx tablet,extended release,12 hr .COMPLEX #180 tabs clopidogrel 75 mg tablet (Plavix) 75 mg PO DAILY #21 tabs 01/21/24 Unknown Rx Allergy/AdvReac Type Severity Reaction Status Date / Time tramadol (From Ultra) AdvReac Other Verified 01/11/24 14:10 Family History Father CAD (coronary artery disease) CHF (congestive heart failure) Mother Heart disease Brother Diabetes Cancer Hx of CABG CAD (coronary artery disease) Sister COPD (chronic obstructive pulmonary disease) Diabetes Surgical History H/O knee surgery H/O shoulder surgery H/O shoulder surgery History of carpal tunnel surgery History of bilateral knee replacement Status post total knee replacement, right Hx of CABG (~05/2005) History of arthroscopy (~07/2011) H/O cardiac radiofrequency ablation (~10/2006) History of PTCA History of left heart catheterization (LHC) (~09/2007) Social History household members: none Smoking Status: Never smoker alcohol intake: never substance use type: does not use caffeine: No what type of physical activity do you participate in: none seatbelt use: always do you feel safe at home: Yes Vital Signs Vital Signs Vital Signs: 01/20/24 11:05 01/20/24 11:30 01/20/24 12:00 Temperature Temperature Source Pulse Rate 59 L 60 65 Pulse Strength Respiratory Rate 20 H 15 16 Respiratory Effort Respiratory Depth Respiratory Pattern Blood Pressure 156/66 H 136/78 H 138/91 H Blood Pressure Mean 96 97 106 Blood Pressure Source Blood Pressure Position Blood Pressure Location Pulse Ox 99 97 98 Oxygen Delivery Method Room Air Room Air Room Air 01/20/24 12:00 01/20/24 12:30 01/20/24 12:51 Temperature 98 F Temperature Source Pulse Rate 65 65 65 Pulse Strength Respiratory Rate 16 16 18 Respiratory Effort Respiratory Depth Respiratory Pattern Blood Pressure 138/91 H 145/90 H 107/73 Blood Pressure Mean 106 108 84 Blood Pressure Source Blood Pressure Position Blood Pressure Location Pulse Ox 98 98 99 Oxygen Delivery Method Room Air Room Air 01/20/24 13:00 01/20/24 13:30 01/20/24 14:30 Temperature Temperature Source Pulse Rate 63 63 Pulse Strength Respiratory Rate 17 17 Respiratory Effort Respiratory Depth Respiratory Pattern Blood Pressure 157/130 H 148/78 H Blood Pressure Mean 139 101 Blood Pressure Source Blood Pressure Position Blood Pressure Location Pulse Ox 97 97 Oxygen Delivery Method Room Air Room Air Room Air 01/20/24 14:33 01/20/24 17:15 01/20/24 22:00 Temperature 97.4 F L 97.2 F L Temperature Source Oral Temporal Pulse Rate 72 69 Pulse Strength Normal (2+) Respiratory Rate 18 18 Respiratory Effort Respiratory Depth Respiratory Pattern Blood Pressure 150/79 H 105/64 Blood Pressure Mean 102 77 Blood Pressure Source Monitor Monitor Blood Pressure Position Semi-Fowlers Sitting Blood Pressure Location Right Arm Right Arm Pulse Ox 97 96 Oxygen Delivery Method Room Air Room Air 01/20/24 22:00 01/20/24 22:00 01/21/24 04:16 Temperature 97.0 F L Temperature Source Temporal Pulse Rate 73 Pulse Strength Respiratory Rate 18 Respiratory Effort Normal Non-Labored Normal Non-Labored Respiratory Depth Normal Normal Respiratory Pattern Normal Normal Blood Pressure 126/64 H Blood Pressure Mean 84 Blood Pressure Source Monitor Blood Pressure Position Semi-Fowlers Blood Pressure Location Right Arm Pulse Ox 96 Oxygen Delivery Method Room Air Room Air Room Air 01/21/24 06:30 01/21/24 06:53 01/21/24 08:15 Temperature 97.0 F L 98.2 F Temperature Source Temporal Oral Pulse Rate 65 70 Pulse Strength Respiratory Rate 18 18 Respiratory Effort Respiratory Depth Respiratory Pattern Blood Pressure 111/60 122/65 H Blood Pressure Mean 77 84 Blood Pressure Source Monitor Monitor Blood Pressure Position Semi-Fowlers Sitting Blood Pressure Location Right Arm Right Arm Pulse Ox 94 95 94 Oxygen Delivery Method Room Air Room Air Room Air 01/21/24 09:45 01/21/24 10:00 Temperature Temperature Source Pulse Rate Pulse Strength Normal (2+) Respiratory Rate Respiratory Effort Normal Non-Labored Respiratory Depth Normal Respiratory Pattern Normal Blood Pressure Blood Pressure Mean Blood Pressure Source Blood Pressure Position Blood Pressure Location Pulse Ox Oxygen Delivery Method Room Air Weight Weight: 113 kg Body Mass Index (BMI) 36.8 EEG Results Procedure Details EEG Procedure Details: ISA MILES is a 88 year old M with a past medical history of , who presents for evaluation of Electroencephalogram on DATE at TIME NIHSS NIHSS Nursing Documentation NIHSS Nursing Documentation: NIHSS: Ischemic Stroke/TIA Start: 01/20/24 14:19 Text: For PCU Patients: NIH and Neuro Check every 4 Status: Complete hours, PRN and with change in RN caregiver. Freq: [id number] Protocol: Activity Type Activity Date Activity User E-sign Co-sign Detail Recorded Client Recorded Date Recorded By Document 01/20/24 17:15 AMG desktop 01/20/24 17:15 AMG 01/20/24 17:15 NIH Stroke Scale [NIHSS] A score of 0 is normal or asymptomatic . Total possible score is 42. Inpatient: RN or Physician to activate a stroke alert for onset of new stroke symptoms or with NIHSS increase >/= 3 points. Following change in neurological status, NIHSS will be performed per physician order or more frequently PRN. -1a. Level of Consciousness Alert; keenly responsive -1b. LOC Questions Answers BOTH questions correctly. -1c. LOC Commands Performs both tasks correctly . -2. Best Gaze Normal -3. Visual No visual loss -4. Facial Palsy Normal symmetrical movements -5a. Left Arm No drift; arm holds 90 (or 45 ) degrees for full 10 seconds -5b. Right Arm No drift; arm holds 90 (or 45 ) degrees for full 10 seconds -6a. Left Leg No drift; leg holds 30-degree position for full 5 seconds -6b. Right Leg No drift; leg holds 30-degree position for full 5 seconds -7. Limb Ataxia Absent -8. Sensory Normal; no sensory loss -9. Best Language No aphasia; normal -10. Dysarthria Normal -11. Extinction and Inattention No abnormality -Total 0 Query Text:A score of 0 is normal or asymptomatic. Total possible score is 42 . ED: Notify Physician for NIHSS increase by > / = 3 points. Inpatient: RN or Physician to activate a stroke alert for NIHSS increase of > / = 3 points. Coma Scale [Assess] -Eye Opening Spontaneous -Motor Obeys Commands -Verbal Oriented [Total] -Coma Scale Total 15 NIHSS 1a. Level of Consciousness: Alert; keenly responsive 1b. LOC Questions: Answers BOTH questions correctly. 1c. LOC Commands: Performs both tasks correctly. 2. Best Gaze: Normal 3. Visual: No visual loss 4. Facial Palsy: Normal symmetrical movements 5a. Left Arm: No drift; arm holds 90 (or 45) degrees for full 10 seconds 5b. Right Arm: No drift; arm holds 90 (or 45) degrees for full 10 seconds 6a. Left Leg: No drift; leg holds 30-degree position for full 5 seconds 6b. Right Leg: No drift; leg holds 30-degree position for full 5 seconds 7. Limb Ataxia: Absent 8. Sensory: Normal; no sensory loss 9. Best Language: No aphasia; normal 10. Dysarthria: Normal 11. Extinction and Inattention: No abnormality Total: 0 Physical Exam Narrative -? General: Laying comfortably in bed; in no acute distress. -? HENT: Normal oropharynx and mucosa. Normal external appearance of ears and nose. Exophthalmos. -? Neck: Supple, no pain or tenderness -? CV:? No peripheral edema. -? Pulmonary:? Normal respiratory effort. -? Ext: No cyanosis, edema, or deformity -? Skin: No rash. Normal palpation of skin.? -? Musculoskeletal: full range of motion; no joint tenderness. Normal digits and nails by inspection. No clubbing. -? NEURO: -? Mental Status: The patient was alert and oriented to time, place, and person. Normal recent/remote memory, concentration, and general fund of knowledge. -? Language: speech is clear.? Naming, repetition, fluency, and comprehension intact. -? Cranial Nerves: PERRL 3 mm/brisk. EOMI, visual blount full, no facial asymmetry, facial sensation intact -? Motor: normal bulk, tone, and strength throughout. No pronator drift or satelliting. Upper and lower extremities equal bilaterally. -? Tone: is normal and bulk is normal -? Sensation- Intact to light touch bilaterally -? Coordination: No dysmetria on [id number], finger follow finger or [id number]. -? Gait- deferred Lab / Micro Data 01/21/24 06:10 01/21/24 06:10 Labs: Laboratory Results - last 24 hr 01/20/24 10:50: WBC 5.8, RBC 3.44 L, Hgb 12.7 L, Hct 37.6 L, MCV 109.3 H, MCH 36.9 H, MCHC 33.8, RDW Std Deviation 59.9 H, RDW Coeff of Brigitte 14.9 H, Plt Count 114 L, MPV 12.0, Immature Gran % (Auto) 0.500, Neut % (Auto) 76.7 H, Lymph % (Auto) 6.2 L, Andrews % (Auto) 12.1 H, Eos % (Auto) 4.2, Baso % (Auto) 0.3, Absolute Neuts (auto) 4.4, Absolute Lymphs (auto) 0.36 L, Nucleated RBC % 0, PT 14.5, INR 1.1, APTT 27.3, Sodium 140, Potassium 4.1, Chloride 109 H, Carbon Dioxide 26.0, Anion Gap 5, BUN 24 H, Creatinine 1.26, Estim Creat Clear Calc 51.71, Est GFR (MDRD) Af Amer 70, Est GFR (MDRD) Non-Af 58 L, BUN/Creatinine Ratio 19.0, Glucose 145 H, Calcium 8.7, Total Bilirubin 0.80, Direct Bilirubin 0.27, AST 20, ALT 24, Alkaline Phosphatase 64, Troponin I High Sens 9, Total Protein 6.2 L, Albumin 3.1 L, Globulin 3.1 01/20/24 13:30: Urine Color Yellow, Urine Clarity Clear, Urine pH 7.0, Ur Specific [place] 1.010, Urine Protein Negative, Urine Glucose (UA) Normal, Urine Ketones Negative, Urine Occult Blood Negative, Urine Nitrite Negative, Urine Bilirubin Negative, Urine Urobilinogen Normal, Ur Leukocyte Esterase 25 H, Urine RBC 0 SEEN, Urine WBC 0-5 SEEN, Ur Squamous Epith Cells 0 SEEN, Urine Bacteria 0 SEEN, Urine Mucus 0 SEEN 01/21/24 06:10: WBC 5.8, RBC 3.34 L, Hgb 12.4 L, Hct 36.6 L, MCV 109.6 H, MCH 37.1 H, MCHC 33.9, RDW Std Deviation 61.1 H, RDW Coeff of Brigitte 14.9 H, Plt Count 121 L, MPV 12.3 H, Immature Gran % (Auto) 0.300, Neut % (Auto) 69.9, Lymph % (Auto) 9.5 L, Andrews % (Auto) 16.7 H, Eos % (Auto) 3.3, Baso % (Auto) 0.3, Absolute Neuts (auto) 4.0, Absolute Lymphs (auto) 0.55 L, Nucleated RBC % 0, Sodium 141, Potassium 4.3, Chloride 111 H, Carbon Dioxide 24.0, Anion Gap 6, BUN 21 H, Creatinine 1.19, Estim Creat Clear Calc 55.22, Est GFR (MDRD) Af Amer 75, Est GFR (MDRD) Non-Af 62, BUN/Creatinine Ratio 17.6, Glucose 108 H, Calcium 8.9, Phosphorus 3.6, Magnesium 2.5, Triglycerides 95, Cholesterol 135, LDL Cholesterol 53, VLDL Cholesterol 19, HDL Cholesterol 63 Imaging Radiology Impression Head/Neck CTA 01/20/24 10:36 IMPRESSION: 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 No large vessel occlusion is seen. N.B. : The above Results were Read Back by Mohan Wharton MD to Oleg Gerber DO, and understanding confirmed on 01/20/2024 11:09:39 (ET). 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 No large vessel occlusion is seen. N.B. : The above Results were Read Back by Mohan Wharton MD to Oleg Gerber DO, and understanding confirmed on 01/20/2024 11:09:39 (ET). Electronically Signed: Mohan Wharton MD at 11:10 EDT , Chest X-Ray 01/20/24 11:23 IMPRESSION: Mild linear atelectasis and scarring or scarring at the lung bases. Electronically Signed: Mohan Wharton MD at 11:57 EDT , Brain MRI 01/20/24 12:30 IMPRESSION: 1. Involutional changes of the brain, as described above. Electronically Signed: Elmer Mishra MD at 19:38 EDT , Active Medications Active Medications Active Medications: Current Medications Generic Name Dose Route Start Last Admin Trade Name Freq PRN Reason Stop Dose Admin Acetaminophen 650 mg 01/20/24 14:19 01/20/24 16:22 Acetaminophen 325 Mg Tablet PO 650 mg Q6H PRN PRN Administration Pain 1-10 Or Fever>100.7 Atorvastatin Calcium 40 mg 01/20/24 22:00 01/20/24 22:06 Atorvastatin Calcium 40 Mg Tablet PO 40 mg QHS IRENA Administration Enoxaparin Sodium 40 mg 01/21/24 10:00 01/21/24 09:44 Enoxaparin 40 Mg/0.4 Ml Syringe SC 40 mg DAILY IRENA Administration Furosemide 40 mg 01/20/24 15:32 Furosemide 40 Mg Tablet PO DAILY PRN EDEMA Protocol Hydralazine HCl 5 mg 01/20/24 14:19 Hydralazine 20 Mg/Ml Vial IV 01/21/24 14:19 Q30M PRN maintain BP parameters with HR <60 Sodium Chloride 1,000 mls @ 100 mls/hr 01/20/24 14:19 01/21/24 10:00 IV Infused .Q10H IRENA Infusion Nitroglycerin 0.4 mg 01/20/24 15:32 Nitroglycerin (Inpatient Use) 0.4 Mg Tab.Subl SL Q5M PRN Chest Pain Nutritional Formula (Lactose Free) 120 ml 01/20/24 18:00 01/21/24 09:45 Ensure Plus High Protein 120 Ml Liquid PO 120 ml 4X/DAY IRENA Administration Ondansetron HCl 4 mg 01/20/24 14:19 Ondansetron 4 Mg/2 Ml Vial IV Q8H PRN PRN NAUSEA/VOMITING Pantoprazole Sodium 40 mg 01/20/24 15:45 01/21/24 09:45 Pantoprazole Sodium 40 Mg Tablet PO 40 mg DAILY IRENA Administration Potassium Chloride 20 meq 01/20/24 15:45 01/21/24 09:44 Potassium Chloride Oral Tablet 20 Meq PO 20 meq DAILY IRENA Administration Ranolazine 1,000 mg 01/20/24 22:00 01/21/24 09:44 Ranolazine 500 Mg Tablet PO 1,000 mg BID RIENA Administration Senna/Docusate Sodium 2 tablet 01/20/24 14:19 Senna/Docusate Sodium 1 Tablet PO BID PRN PRN Constipation Sodium Chloride 10 - 40 ml 01/20/24 14:39 0.9% Saline Lock 10 Ml Syringe IV UD PRN SALINE FLUSH Tamsulosin HCl 0.4 mg 01/20/24 15:45 01/21/24 09:45 Tamsulosin Hcl 0.4 Mg Capsule PO 0.4 mg DAILY IRENA Administration
--- NOTE | 2024-01-21 12:08 | NURSING ---
Reviewed and agreed on charting with Tyson Ball RN
== END 2024-01-21 08:40 | disposition home or self-care (01) ==
LOC: ED 12:15 → PCU 12:37
PROVIDERS: Admitting Provider Internal Medicine; Emergency Provider Emergency Medicine; PCP Family Medicine Geriatric Medicine; Visit Provider Internal Medicine
DX: G45.9 Transient cerebral ischemic attack, unspecified (principal); I48.0 Paroxysmal atrial fibrillation; Z86.16 Personal history of COVID-19; R13.10 Dysphagia, unspecified; R47.81 Slurred speech; I25.10 Atherosclerotic heart disease of native coronary artery without angina pectoris; I10 Essential (primary) hypertension; R41.0 Disorientation, unspecified; E78.00 Pure hypercholesterolemia, unspecified; Z95.1 Presence of aortocoronary bypass graft; Z79.899 Other long term (current) drug therapy; N40.0 Benign prostatic hyperplasia without lower urinary tract symptoms; E66.9 Obesity, unspecified; Z68.36 Body mass index [BMI] 36.0-36.9, adult
CPT/HCPCS: 36415; 70450; 70496; 70498; 70551; 71045; 80048; 80061; 80076; 81001; 83735; 84100; 84484; 85025; 85610; 85730; 93005; 93308; 96361; 96372; 96374; 97162; 97166; 99221; 99285; J7030; J7040; Q9957; Q9967; A4216; C8924; G0378; J2405

== ENCOUNTER → 2024-02-14 | Outpatient (CLI) | payer MEDICARE, OTHER, SELFPAY ==
[2024-02-14 15:01] LABS: Absolute Lymphocyte Count 0.57 X10^3/uL (0.83-4.51); Basophil# 0.03 X10^3/uL; Basophil% 0.6 % (0-1); Eosinophil# 0.18 X10^3/uL; Eosinophils% 3.7 % (0-5); Hematocrit 40.9 % (40-54); Hemoglobin 13.6 g/dL (13.0-16.5); Lymphocyte # 0.57 X10^3/ul (0.83-4.51); Lymphocyte % 11.8 % (19-41); Mean Corp Hgb Conc 33.3 g/dL (32-36); Mean Corpuscular Hgb 36.8 pg (27.0-32.0); Mean Corpuscular Volume 110.5 fL (80-94); Mean Platelet Vol. 12.6 fl (6.2-12.0); Monocyte% 20.7 % (0-10); NRBC Flagged by Analyzer 0 % (0-5); Neutrophil # 3.04 X10^3/uL (2.7-7.7); Neutrophil % 62.8 % (47-70); POSITIVE DIFFERENTIAL YES; Platelet Count 139 K/mm3 (150-450); RBC Distribution Width CV 14.3 % (11.6-14.6); RBC Distribution Width SD 58.6 fl (35.1-43.9); White Blood Count 4.8 K/mm3 (4.4-11.0)
[2024-02-14 15:09] LABS: Vitamin D,25 Hydroxy 30.9 ng/mL
[2024-02-14 17:08] LABS: ALB/GLOB Ratio 1.1 RATIO (0.9-2.4); AST(SGOT) 19 U/L (15-37); Alanine Aminotransfer ALT/SGPT 23 U/L (16-61); Albumin, Serum 3.5 g/dL (3.2-5.0); Alkaline Phosphatase 69 U/L (45-117); Anion Gap 7 (5-15); BUN 30 mg/dL (7-18); BUN/Creat Ratio 21.4 RATIO (10-20); Calcium,Total 9.5 mg/dL (8.5-10.1); Chloride 106 mmol/L (98-107); EST Glomerular Filtration Rate 51 mL/min (>60); Est Glom Filt Rate - Afr Amer 62 mL/min (>60); Globulin 3.3 g/dL (2.2-4.2); Glucose 121 mg/dL (74-106); Potassium 4.3 mmol/L (3.5-5.1); Protein, Total 6.8 g/dL (6.4-8.2); Sodium Level 141 mmol/L (136-145)
== END | disposition home or self-care (01) ==
LOC: POLAB3 13:40
PROVIDERS: PCP Family Medicine Geriatric Medicine; Visit Provider Family Medicine Geriatric Medicine
DX: R53.83 Other fatigue (principal); E55.9 Vitamin D deficiency, unspecified
CPT/HCPCS: 36415; 80053; 82306; 84443; 85025

== ENCOUNTER → 2024-08-02 | Outpatient (CLI) | payer MEDICARE, OTHER, SELFPAY ==
--- NOTE | 2024-08-02 16:10 | RAD_ITS ---
PROCEDURE: CHEST PA AND LATERAL REASON FOR EXAM: Pneumonia. TECHNIQUE: Frontal and lateral views of the chest. COMPARISON: 01/21/2023. FINDINGS: The heart is enlarged. The mediastinal contour is unremarkable. Mild right basilar infiltrate suspicious for pneumonia. The bones are unremarkable. Prior sternotomy. RAD/Chest PA and Lateral IMPRESSION: Mild right basilar infiltrate suspicious for pneumonia. Reading Location: [id number]
[2024-08-02 17:06] LABS: Absolute Lymphocyte Count 0.25 X10^3/uL (0.83-4.51); Absolute Neutrophil Count 2.9 X10^3/uL (2.0-7.7); Basophil# 0.01 X10^3/uL; Basophil% 0.2 % (0-1); Eosinophil# 0.08 X10^3/uL; Eosinophils% 1.8 % (0-5); Hematocrit 40.8 % (40-54); Hemoglobin 13.4 g/dL (13.0-16.5); Lymphocyte # 0.25 X10^3/ul (0.83-4.51); Lymphocyte % 5.6 % (19-41); Mean Corp Hgb Conc 32.8 g/dL (32-36); Mean Corpuscular Hgb 35.2 pg (27.0-32.0); Mean Corpuscular Volume 107.1 fL (80-94); Mean Platelet Vol. 12.5 fl (6.2-12.0); Monocyte# 1.28 X10^3/uL; Monocyte% 28.4 % (0-10); NRBC Flagged by Analyzer 0 % (0-5); Neutrophil # 2.86 X10^3/uL (2.7-7.7); Neutrophil % 63.6 % (47-70); POSITIVE DIFFERENTIAL YES; Platelet Count 121 K/mm3 (150-450); RBC Distribution Width CV 15.2 % (11.6-14.6); RBC Distribution Width SD 61.1 fl (35.1-43.9); Red Blood Count 3.81 M/mm3 (4.6-6.2); White Blood Count 4.5 K/mm3 (4.4-11.0)
[2024-08-02 17:07] LABS: Anion Gap 6 (5-15); BUN 28 mg/dL (7-18); BUN/Creat Ratio 20.3 RATIO (10-20); Calcium,Total 8.9 mg/dL (8.5-10.1); Chloride 104 mmol/L (98-107); Creatinine, Serum 1.38 mg/dL (0.70-1.30); EST Glomerular Filtration Rate 52 mL/min (>60); Est Glom Filt Rate - Afr Amer 63 mL/min (>60); Glucose 111 mg/dL (74-106); Potassium 4.1 mmol/L (3.5-5.1); Sodium Level 138 mmol/L (136-145)
== END | disposition home or self-care (01) ==
PROVIDERS: PCP Family Medicine Geriatric Medicine; Referring Provider Family Medicine Geriatric Medicine; Visit Provider Family Medicine Geriatric Medicine
DX: J18.9 Pneumonia, unspecified organism (principal); R68.83 Chills (without fever); R53.83 Other fatigue
CPT/HCPCS: 36415; 71046; 80048; 85025; 87631

== ENCOUNTER → 2024-08-09 | Outpatient (CLI) | payer MEDICARE, OTHER, SELFPAY ==
[2024-08-09 16:31] LABS: Absolute Lymphocyte Count 0.54 X10^3/uL (0.83-4.51); Absolute Neutrophil Count 5.7 X10^3/uL (2.0-7.7); Basophil# 0.01 X10^3/uL; Basophil% 0.1 % (0-1); Eosinophil# 0.06 X10^3/uL; Eosinophils% 0.8 % (0-5); Hematocrit 42.1 % (40-54); Hemoglobin 14.4 g/dL (13.0-16.5); Lymphocyte # 0.54 X10^3/ul (0.83-4.51); Lymphocyte % 7.4 % (19-41); Mean Corp Hgb Conc 34.2 g/dL (32-36); Mean Corpuscular Hgb 35.7 pg (27.0-32.0); Mean Corpuscular Volume 104.5 fL (80-94); Mean Platelet Vol. 11.9 fl (6.2-12.0); Monocyte# 0.97 X10^3/uL; Monocyte% 13.3 % (0-10); NRBC Flagged by Analyzer 0 % (0-5); Neutrophil % 77.9 % (47-70); POSITIVE DIFFERENTIAL YES; Platelet Count 130 K/mm3 (150-450); RBC Distribution Width CV 14.7 % (11.6-14.6); RBC Distribution Width SD 57.2 fl (35.1-43.9); Red Blood Count 4.03 M/mm3 (4.6-6.2); White Blood Count 7.3 K/mm3 (4.4-11.0)
[2024-08-09 16:53] LABS: Anion Gap 5 (5-15); BUN 24 mg/dL (7-18); BUN/Creat Ratio 18.8 RATIO (10-20); Calcium,Total 9.6 mg/dL (8.5-10.1); Chloride 106 mmol/L (98-107); Creatinine, Serum 1.28 mg/dL (0.70-1.30); EST Glomerular Filtration Rate 57 mL/min (>60); Est Glom Filt Rate - Afr Amer 68 mL/min (>60); Glucose 121 mg/dL (74-106); Potassium 4.5 mmol/L (3.5-5.1); Sodium Level 137 mmol/L (136-145)
[2024-08-09 17:10] LABS: AST(SGOT) 27 U/L (15-37); Alanine Aminotransfer ALT/SGPT 22 U/L (16-61); Albumin, Serum 3.4 g/dL (3.2-5.0); Alkaline Phosphatase 62 U/L (45-117); Bilirubin, Direct 0.28 mg/dL (0.00-0.30); Cholesterol 212 mg/dL (200); Globulin 3.6 g/dL (2.2-4.2); High Density Lipoprotein 62 mg/dL; Triglycerides 187 mg/dL; Very Low Density Lipoprotein 37 mg/dL (5-40)
== END | disposition home or self-care (01) ==
LOC: LAB 16:09
PROVIDERS: Nurse Practitioner Family; PCP Family Medicine Geriatric Medicine; Referring Provider Family Medicine Geriatric Medicine; Visit Provider Family Medicine Geriatric Medicine
DX: R19.7 Diarrhea, unspecified (principal); E78.00 Pure hypercholesterolemia, unspecified
CPT/HCPCS: 36415; 80048; 80061; 80076; 85025

== ENCOUNTER → 2024-08-10 | Outpatient (CLI) | payer MEDICARE, OTHER, SELFPAY | END | disposition home or self-care (01) | PROVIDERS: PCP Family Medicine Geriatric Medicine; Referring Provider Family Medicine Geriatric Medicine; Visit Provider Family Medicine Geriatric Medicine | DX: A04.72 Enterocolitis due to Clostridium difficile, not specified as recurrent (principal); R19.7 Diarrhea, unspecified | CPT/HCPCS: 82274; 87493 ==

== ENCOUNTER → 2024-08-13 | Outpatient (CLI) | payer MEDICARE, OTHER, SELFPAY ==
--- NOTE | 2024-08-13 14:18 | CT_ITS ---
PROCEDURE: ABDOMEN/PELVIS WITH CONTRAST REASON FOR EXAM: 1-1/2 week history of diarrhea. TECHNIQUE: Abdomen and pelvis CT with intravenous contrast. Oral contrast was also used. IV CONTRAST: 100 cc of [id number]. COMPARISON: Comparison is made with prior study dated October 25, 2021. FINDINGS: Lung bases: Clear coronary artery calcification. Liver: Unremarkable. Gallbladder: Unremarkable. Spleen: Unremarkable. Pancreas: Unremarkable. Adrenals: Unremarkable. Kidneys: Stable left renal cyst measuring 5.1 cm by 5.9 cm. Bladder: Distended urinary bladder. Central prostatic calcification. There is evidence of prior anterior abdominal hernia repair with a mesh. Reproductive Organs: Unremarkable. Bowel: Diffuse gastric wall thickening with thickened folds. Clinical correlation recommended. Diffuse sigmoid diverticulosis with no radiographic evidence of diverticulitis at this time. Appendix: Normal. Lymph nodes: No suspicious lymph node enlargement. Vasculature: Mild diffuse atherosclerotic calcifications are noted. Peritoneum / Retroperitoneum: No ascites. No free air. Bones: Degenerative changes of the spine. CT/Abdomen/Pelvis WITH Contrast IMPRESSION: Diffuse gastric wall thickening with prominent folds. Clinical correlation is recommended. Sigmoid diverticulosis with no radiographic evidence of diverticulitis. Distention of the urinary bladder. One or more dose reduction techniques were used (e.g., Automated exposure contr ol, adjustment of the mA and/or kV according to patient size, use of iterative reconstruction technique). Reading Location: [id number]
== END | disposition home or self-care (01) ==
PROVIDERS: PCP Family Medicine Geriatric Medicine; Referring Provider Family Medicine Geriatric Medicine; Visit Provider Family Medicine Geriatric Medicine
DX: A04.8 Other specified bacterial intestinal infections (principal); K29.70 Gastritis, unspecified, without bleeding; R19.7 Diarrhea, unspecified
CPT/HCPCS: 74177; Q9967

== ENCOUNTER → 2024-08-16 | Outpatient (CLI) | payer MEDICARE, OTHER, SELFPAY ==
--- NOTE | 2024-08-16 14:05 | RAD_ITS ---
PROCEDURE: PA and lateral chest radiographs, two views REASON FOR EXAM: Pneumonia TECHNIQUE: PA and lateral chest radiographs were obtained. COMPARISON: 08/02/2024 FINDINGS: Similar prominence of the cardiomediastinal silhouette. The thoracic aorta is tortuous. Bones are osteopenic with degenerative changes in the spine. Sternotomy wires remain. Similar scattered coarse interstitial markings in both lungs, without focal airspace consolidation or pleural effusion. RAD/Chest PA and Lateral IMPRESSION: Similar scattered coarse interstitial markings in both lungs without focal pneu monia or pleural effusion. If there are persistent symptoms, short-term follow-up CT evaluation may be considered. Reading Location: [facility]
[2024-08-16 14:59] LABS: Absolute Lymphocyte Count 0.54 X10^3/uL (0.83-4.51); Absolute Neutrophil Count 5.9 X10^3/uL (2.0-7.7); Basophil# 0.02 X10^3/uL; Basophil% 0.3 % (0-1); Eosinophil# 0.11 X10^3/uL; Eosinophils% 1.5 % (0-5); Hematocrit 42.4 % (40-54); Lymphocyte # 0.54 X10^3/ul (0.83-4.51); Lymphocyte % 7.2 % (19-41); Mean Corpuscular Hgb 34.8 pg (27.0-32.0); Mean Corpuscular Volume 105.5 fL (80-94); Mean Platelet Vol. 12.5 fl (6.2-12.0); Monocyte# 0.96 X10^3/uL; Monocyte% 12.8 % (0-10); NRBC Flagged by Analyzer 0 % (0-5); Neutrophil # 5.87 X10^3/uL (2.7-7.7); Neutrophil % 77.9 % (47-70); POSITIVE DIFFERENTIAL YES; Platelet Count 153 K/mm3 (150-450); RBC Distribution Width CV 14.9 % (11.6-14.6); RBC Distribution Width SD 58.5 fl (35.1-43.9); Red Blood Count 4.02 M/mm3 (4.6-6.2); White Blood Count 7.5 K/mm3 (4.4-11.0)
[2024-08-16 15:37] LABS: Vitamin D,25 Hydroxy 34.7 ng/mL
[2024-08-16 16:01] LABS: AST(SGOT) 27 U/L (15-37); Alanine Aminotransfer ALT/SGPT 26 U/L (16-61); Albumin, Serum 3.7 g/dL (3.2-5.0); Alkaline Phosphatase 66 U/L (45-117); Anion Gap 9 (5-15); BUN 26 mg/dL (7-18); BUN/Creat Ratio 21.3 RATIO (10-20); Calcium,Total 9.3 mg/dL (8.5-10.1); Chloride 104 mmol/L (98-107); Creatinine, Serum 1.22 mg/dL (0.70-1.30); EST Glomerular Filtration Rate 60 mL/min (>60); Est Glom Filt Rate - Afr Amer 72 mL/min (>60); Globulin 3.6 g/dL (2.2-4.2); Glucose 96 mg/dL (74-106); Potassium 3.9 mmol/L (3.5-5.1); Protein, Total 7.3 g/dL (6.4-8.2); Sodium Level 138 mmol/L (136-145)
== END | disposition home or self-care (01) ==
LOC: RAD 13:58
PROVIDERS: PCP Family Medicine Geriatric Medicine; Referring Provider Family Medicine Geriatric Medicine; Visit Provider Family Medicine Geriatric Medicine
DX: J18.9 Pneumonia, unspecified organism (principal); R53.83 Other fatigue
CPT/HCPCS: 36415; 71046; 80053; 82306; 84443; 85025

== ENCOUNTER → 2024-08-20 | Outpatient (CLI) | payer MEDICARE, OTHER, SELFPAY | END | disposition home or self-care (01) | LOC: PSN 12:05 | PROVIDERS: PCP Family Medicine Geriatric Medicine; Referring Provider Family Medicine Geriatric Medicine; Visit Provider Family Medicine Geriatric Medicine | DX: R68.83 Chills (without fever) (principal) | CPT/HCPCS: 87631 ==

== ENCOUNTER → 2024-11-13 | Outpatient (CLI) | payer MEDICARE, OTHER, SELFPAY ==
[2024-11-13 15:27] LABS: Absolute Lymphocyte Count 0.57 X10^3/uL (0.83-4.51); Absolute Neutrophil Count 3.5 X10^3/uL (2.0-7.7); Basophil# 0.02 X10^3/uL; Basophil% 0.4 % (0-1); Eosinophil# 0.12 X10^3/uL; Eosinophils% 2.4 % (0-5); Hematocrit 40.1 % (40-54); Hemoglobin 13.6 g/dL (13.0-16.5); Lymphocyte # 0.57 X10^3/ul (0.83-4.51); Lymphocyte % 11.2 % (19-41); Mean Corp Hgb Conc 33.9 g/dL (32-36); Mean Platelet Vol. 12.4 fl (6.2-12.0); Monocyte# 0.84 X10^3/uL; Monocyte% 16.6 % (0-10); NRBC Flagged by Analyzer 0 % (0-5); POSITIVE DIFFERENTIAL YES; Platelet Count 128 K/mm3 (150-450); RBC Distribution Width CV 14.8 % (11.6-14.6); RBC Distribution Width SD 60.3 fl (35.1-43.9); Red Blood Count 3.68 M/mm3 (4.6-6.2); White Blood Count 5.1 K/mm3 (4.4-11.0)
[2024-11-13 16:27] LABS: ALB/GLOB Ratio 1.5 RATIO (0.9-2.4); AST(SGOT) 23 U/L (<=37); Alanine Aminotransfer ALT/SGPT 16 U/L (<=46); Albumin, Serum 4.1 g/dL (3.4-4.8); Alkaline Phosphatase 59 U/L (40-129); Anion Gap 10 (5-15); BUN 28 mg/dL (4-19); BUN/Creat Ratio 22.7 RATIO (10-20); Calcium,Total 9.4 mg/dL (7.6-11.0); Carbon Dioxide 27.2 mmol/L (21.0-32.0); Chloride 103 mmol/L (98-108); Creatinine, Serum 1.23 mg/dL (0.70-1.20); EST Glomerular Filtration Rate 57 (>60); Globulin 2.7 g/dL (2.2-4.2); Glucose 89 mg/dL (70-99); Potassium 4.3 mmol/L (3.3-5.1); Protein, Total 6.7 g/dL (5.9-8.4); Sodium Level 140 mmol/L (133-145); Total Bilirubin 0.63 mg/dL (0.00-1.30); Vitamin D,25 Hydroxy 55.5 ng/mL (30-100)
== END | disposition home or self-care (01) ==
LOC: LAB 14:29
PROVIDERS: PCP Family Medicine Geriatric Medicine; Referring Provider Family Medicine Geriatric Medicine; Visit Provider Family Medicine Geriatric Medicine
DX: E55.9 Vitamin D deficiency, unspecified (principal); R53.83 Other fatigue
CPT/HCPCS: 36415; 80053; 82306; 84443; 85025

== ENCOUNTER 2025-01-10 10:14 | Emergency (ER) | payer MEDICARE, OTHER, SELFPAY ==
[2025-01-10 10:15] VITALS: BP 150/95; PULSE 51; RESP 16; TEMP 36.7; O2SAT 99
--- NOTE | 2025-01-10 10:36 | ED.VIS.FALL ---
HPI HPI - Fall History of Present Illness Chief Complaint: Fall Informant: patient Occured/Mechanism Occurred: Yesterday Mechanism/Context: Yes same level fall and Yes slip Pain/Injury Pain Location: chest and back Quality of Pain: Stabbing Worsened by: Movement, coughing, deep breathing Relieved by: Nothing Associated Symptoms Associated Symptoms: Negative for Parasthesias, Weakness, Loss of function, Inability to ambulate, Loss of consciousness or Amnesia Narrative Narrative: Patient presents after a fall that occurred last night. Patient slipped on wet floor and fell onto his back. Patient denies any head injury or loss of consciousness. Patient states that his pain is mainly over the lower thoracic area and lateral ribs. Patient states that the pain is worse with any movement. Patient states it is worse with coughing. Patient states nothing makes it better. He patient denies any paresthesias or weakness. Patient denies any other injuries. [facility] Medical History Bilateral lower extremity edema Dyslipidemia COVID-19 COVID Aortic valve stenosis, nonrheumatic Coronary artery disease Hypokalemia Gastroesophageal reflux disease Hyperlipidemia Benign prostate hyperplasia Debility Weakness Pressure injury of left buttock, stage 1 Stenosis, spinal, lumbar Neck pain Segmental and somatic dysfunction of thoracic region Segmental and somatic dysfunction of pelvic region Segmental and somatic dysfunction of lumbar region Segmental and somatic dysfunction of cervical region Degenerative disc disease, cervical Sleep apnea, obstructive History of atrial fibrillation Nonrheumatic aortic (valve) insufficiency Nonrheumatic aortic (valve) stenosis Pure hypercholesterolemia Essential hypertension Neuropathic pain Hypokalemia GERD (gastroesophageal reflux disease) BPH (benign prostatic hyperplasia) Left trigger finger Left carpal tunnel syndrome Benign paroxysmal positional vertigo Fall Dizziness Debility Laceration of head Vertigo Dyspnea on exertion Prinzmetal angina CAD (coronary artery disease) Malignant pericardial effusion Atrial flutter Palpitations Shortness of breath Precordial chest pain Aortocoronary bypass status History of percutaneous transluminal coronary angioplasty Abnormal result of cardiovascular function study, unspecified Pain in limb Dizziness and giddiness Fatigue Pain in left shoulder Atherosclerosis of coronary artery bypass graft(s), unspecified, with other forms of angina pectoris Intermittent claudication Home Medications ?Medication ?Instructions ?Recorded ?Last Taken ?Type tamsulosin 0.4 mg capsule 0.4 mg PO DAILY URINE FLOW 03/06/16 01/19/24 History aspirin 81 mg tablet,delayed 81 mg PO DAILY heart health 07/04/18 01/19/24 History release (Marisela Low Dose Aspirin) omeprazole 40 mg capsule,delayed 40 mg PO DAILY acid reflux 07/04/18 01/19/24 History release potassium chloride 20 mEq 20 meq PO DAILY supplement 07/04/18 01/19/24 History tablet,extended release acetaminophen 500 mg tablet 1,000 mg (2 x 500 mg) PO Q6H PRN 11/05/21 Unknown Rx PRN Pain Score 1-10 #0 tabs multivitamin 1 tab PO DAILY 04/15/22 01/19/24 History furosemide 40 mg tablet 40 mg PO DAILY PRN edema 11/18/22 01/19/24 History nitroglycerin 0.4 mg sublingual 0.4 mg sublingual Q5-15M PRN Chest 07/17/24 Unknown Rx tablet Pain #25 tabs ranolazine 1,000 mg 1,000 mg PO Q12H 07/17/24 Unknown History tablet,extended release,12 hr hydrocodone-acetaminophen 5-325mg 1 tab PO Q6H PRN PRN Pain 3 days 01/10/25 Unknown Rx 5mg-325mg #10 TABLETS Allergy/AdvReac Type Severity Reaction Status Date / Time tramadol (From Ultram) AdvReac Other Verified 01/10/25 10:15 Family History Father CAD (coronary artery disease) CHF (congestive heart failure) Mother Heart disease Brother Diabetes Cancer Hx of CABG CAD (coronary artery disease) Sister COPD (chronic obstructive pulmonary disease) Diabetes Surgical History H/O knee surgery H/O shoulder surgery H/O shoulder surgery History of carpal tunnel surgery History of bilateral knee replacement Status post total knee replacement, right Hx of CABG (~05/2005) History of arthroscopy (~07/2011) H/O cardiac radiofrequency ablation (~10/2006) History of PTCA History of left heart catheterization (LHC) (~09/2007) Social History household members: none Smoking Status: Never smoker alcohol intake: never substance use type: does not use caffeine: No what type of physical activity do you participate in: none seatbelt use: always do you feel safe at home: Yes ROS ROS ED Constitutional Constitutional ED: Denies chills or fever(s) Eyes Eyes: Reports blurry vision; Denies diplopia ENT ENT ED: Denies rhinorrhea or sore throat Cardiovascular Cardiovascular: Reports chest pain; Denies palpitations Respiratory/Chest Respiratory/Chest: Reports cough; Denies dyspnea Gastrointestinal Gastrointestinal: Denies nausea or vomiting Genitourinary Genitourinary ED: Denies dysuria or hematuria Musculoskeletal Musculoskeletal: Reports back pain; Denies neck pain Integumentary Reports rash; Denies abscess Neurologic Neurologic: Denies headache(s) or weakness Allergic/Immunologic Allergic/Immunologic ED: Denies mouth swelling or urticaria EXAM Physical Exam Const Vital Signs: 01/10/25 10:15 Temperature 98.1 F Temperature Source Oral Pulse Rate 51 L Respiratory Rate 16 Blood Pressure 150/95 H Blood Pressure Mean 113 Pulse Ox 99 Oxygen Delivery Method Room Air Positive well nourished and well developed General Appearance ED: well developed and NAD HEENT Reports normocephalic atraumatic Neck full ROM and supple Chest Wall Chest Narrative: There is tenderness palpation over the lower ribs bilaterally. There is no bony crepitus or step-off noted. Resp normal respiratory effort and clear to auscultation bilaterally Cardio regular rate and regular rhythm GI non-tender and non-distended Palpation: soft Back/Spine Back/Spine Narrative: There is tenderness over the lower thoracic paraspinal areas bilaterally. There is tenderness over the posterior ribs bilaterally. There is no subcutaneous emphysema palpated. There is some edema and ecchymosis of the left lower posterior ribs. Thoracic Spine / Upper Back: ROM limited and pain with ROM Neuro oriented x3, CN's II-XII intact bilaterally, moves all extremities, no focal motor deficits and no sensory deficits noted [place] Coma Scale: document GCS findings Spontaneous Obeys Commands Oriented 15 Sensorium / Orientation: alert Motor Exam: strength 5/5 throughout Psych mental status grossly normal and thought process normal MDM MDM MDM Narrative Medical decision making narrative: Differential diagnosis rib fracture, pneumothorax, and contusion. X-rays of the bilateral ribs will be obtained to assess for rib fracture and pneumothorax. Radiography Chest X-Ray - ED: Read by ED Physician, Read by Radiologist, Right Rib Fx and Left Rib Fx Diagnostic Testing: Clinical Impression(s) from Imaging Studies Ribs w/Chest X-Ray 01/10/25 10:41 IMPRESSION: Comminuted mildly displaced fracture of the right 10th, 9th, and possibly 8th ribs. Reading Location: [facility] X-rays of the bilateral ribs were obtained. There are 9 views. On my independent interpretation, there are fractures of the right 8th, 9th, and 10th ribs. There is a questionable fracture of the left 10th rib as well. There is no pneumothorax. Radiologist also interpreted the x-rays and agrees. Treatment and Re-Evaluation Narrative: Patient was given a dose of [place] here. Patient was advised of his findings. Patient will be ambulated here in the emergency department on pulse oximeter. Patient was given a prescription for [place]. Patient was instructed to use ice to the area. Patient was instructed to take 10-15 deep breaths every hour while awake to prevent atelectasis and pneumonia. Patient was instructed to follow-up with his primary care physician in 5 to 7 days. Patient and family understood and were agreeable with the plan. All questions were answered. Discharge Plan Triage Chief Complaint: Fall ED Provider: Jose Sharp Dx/Rx/DC Orders Clinical Impression: Multiple rib fractures, Essential hypertension, Fall Instructions: ED Rib Fracture Prescriptions: New hydrocodone-acetaminophen 5-325 mg tablet 1 tab PO Q6H PRN PRN (Reason: Pain) 3 Days Qty: 10 0RF No Action aspirin [Marisela Low Dose Aspirin] 81 mg tablet,delayed release (DR/EC) 81 mg PO DAILY omeprazole 40 mg capsule,delayed release(DR/EC) 40 mg PO DAILY potassium chloride 20 mEq tablet extended release 20 meq PO DAILY multivitamin Tablet 1 tab PO DAILY ranolazine 1,000 mg tablet extended release 12 hr 1,000 mg PO Q12H nitroglycerin 0.4 mg tablet, sublingual 0.4 mg SUBLINGUAL Q5-15M PRN (Reason: Chest Pain) Qty: 25 3RF tamsulosin 0.4 MG capsule 0.4 mg PO DAILY acetaminophen 500 mg Tablet 1,000 mg PO Q6H PRN PRN (Reason: Pain Score 1-10) Qty: 0 0RF furosemide 40 mg tablet 40 mg PO DAILY PRN (Reason: edema) Patient Comments: had been taking it every day for x2 weeks [facility] Provider: [facility] Referrals: [facility], [facility] [Primary Care Provider] - 5-7 Days Activity Restrictions/Additional Instructions: Take 10-15 deep breaths every hour while you are awake to prevent pneumonia. Print Language: Khmer Disposition Disposition: Home, Self Care
--- NOTE | 2025-01-10 10:41 | RAD_ITS ---
EXAM: XR Bilateral Ribs, 3 Views CLINICAL INDICATION: FALL TECHNIQUE: Frontal and oblique views of the bilateral ribs. COMPARISON: No relevant prior studies available. FINDINGS: LUNGS AND PLEURAL SPACES: Unremarkable as visualized. No consolidation. No pneumothorax. BONES/JOINTS: Comminuted mildly displaced fracture of the right 10th, 9th, and possibly 8th ribs. RAD/Ribs [place] Min 4V w/PA Chest IMPRESSION: Comminuted mildly displaced fracture of the right 10th, 9th, and possibly 8th r ibs. Reading Location: [facility]
[2025-01-10] MEDS: HYDROcodone Bitartrate/Apap 5/325 Tablet PO (11:43)
[2025-01-10 12:06] VITALS: O2SAT 90
[2025-01-10 12:15] VITALS: BP 158/84; PULSE 92; RESP 16; O2SAT 96
[2025-01-10 13:07] VITALS: BP 158/84; PULSE 92; RESP 16; TEMP 36.7; O2SAT 96
== END 2025-01-10 13:09 | disposition home or self-care (01) ==
PROVIDERS: Emergency Provider Emergency Medicine; PCP Family Medicine Geriatric Medicine; Visit Provider Emergency Medicine
DX: S22.41XA Multiple fractures of ribs, right side, initial encounter for closed fracture (principal); I10 Essential (primary) hypertension; W01.0XXA Fall on same level from slipping, tripping and stumbling without subsequent striking against object, initial encounter; I25.810 Atherosclerosis of coronary artery bypass graft(s) without angina pectoris; E78.00 Pure hypercholesterolemia, unspecified; N40.0 Benign prostatic hyperplasia without lower urinary tract symptoms; K21.9 Gastro-esophageal reflux disease without esophagitis; Z95.1 Presence of aortocoronary bypass graft; Z79.82 Long term (current) use of aspirin; Z79.899 Other long term (current) drug therapy
CPT/HCPCS: 71111; 99282

== ENCOUNTER 2025-01-11 10:30 | Inpatient (IN) | payer MEDICARE, OTHER, SELFPAY ==
[2025-01-11 10:36] VITALS: BP 128/71; PULSE 78; RESP 18; TEMP 36.3; O2SAT 95; BMI 36.6
--- NOTE | 2025-01-11 10:54 | EX.PCM.HP.RE ---
Documented by User: JOSIAH Schroeder 01/11/25 11:56 HPI - General General Date of Admission: 01/11/25 Date of Service: 01/11/25 Chief Complaint: uncontrolled pain s/p rib fractures HPI Narrative ISA MILES, is a 89 M who presents with his son, Kenan, from home. Pt was seen in the ED at [facility] on 01/10/25 after a slip and fall on a wet floor, which resulted in fractures of the R 8th, 9th and 10th ribs, as well as the L 10th rib. He denied LOC or neck pain. He was given a [place] in the ED and sent home with [place] for pain control at home. Pt continued to have uncontrolled pain while at home and was unable to care for himself. Pt does live alone with his son visiting frequently. Pt's son then called the inpatient unit to request admit for pain control as well as PT/OT with his rib fractures. On arrival, pt is alert and oriented x 4 and his only complaint is 8/10 R rib pain. He states that it is mainly over the lower thoracic area and lateral ribs. Right worse than left. He states movement or coughing make it worse. He states that nothing makes it feel better. He denies paresthesia or weakness. 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 He does report chronic shoulder pain Left worse than right. Pts son states that the pt is not very compliant with his medications on a regular basis and that he forgets to take them Pt does states that he has a organized pill dispenser and he reports that he does take him meds. Pt does live at home alone and does not utilize and adaptive equiptment. On assessment he does have a loud murmur, which he is aware of. He is alert and oriented x 4. He denies CP or SOB and reports only pain, at this time, is related to rib fractures. He states that he currently has RUQ pain but feels it may be related to his ribs. I did note him to have some bilateral 1+ pitting edema to bilateral lower extremities right is worse than left at the ankle. He does take Furosemide 40mg q day. Pt's son states that he sits in his chair and is very sedentary most of the time. We did discuss compression stockings and elevation to assist with edema to his lower extremities. We had an extensive discussion about preventing Pneumonia during his stay related to his rib fractures. We discussed the importance of splinting and I provided verbal and visual education to both the pt and his son. I provided him with a folded flat blanket and instructed him on the best splinting techniques. I also discussed the importance of utilizing his IS as well as scheduled pain control. Both Pt and son are in agreement. I did discuss the patient code status with him and his son and provided goals of care conversation with them. At this time, the patient chooses to be a full code. I discussed this plan of care with Dr. Baum I spent 92 minutes reviewing previous documentation,labs and radiological studies, pt assessment and interview, discussion of code status as well as goals of care, doecumentation and order placing. [facility] Medical History (Updated 01/11/25 @ 14:[address] Mallory Baum, ) Class II obesity Chronic constipation Chronic renal failure, stage 3a Presbycusis of both ears Pulmonary hypertension (HFpEF) heart failure with preserved ejection fraction Dyslipidemia COVID-19 Aortic valve stenosis, nonrheumatic Coronary artery disease Hypokalemia Gastroesophageal reflux disease Benign prostate hyperplasia Debility Weakness Pressure injury of left buttock, stage 1 Stenosis, spinal, lumbar Neck pain Segmental and somatic dysfunction of thoracic region Segmental and somatic dysfunction of pelvic region Segmental and somatic dysfunction of lumbar region Segmental and somatic dysfunction of cervical region Degenerative disc disease, cervical Sleep apnea, obstructive Nonrheumatic aortic (valve) insufficiency Pure hypercholesterolemia Essential hypertension Neuropathic pain Hypokalemia GERD (gastroesophageal reflux disease) BPH (benign prostatic hyperplasia) Left trigger finger Left carpal tunnel syndrome Benign paroxysmal positional vertigo Fall Debility Laceration of head Dyspnea on exertion Prinzmetal angina CAD (coronary artery disease) Malignant pericardial effusion Atrial flutter Precordial chest pain History of percutaneous transluminal coronary angioplasty Abnormal result of cardiovascular function study, unspecified Pain in left shoulder Atherosclerosis of coronary artery bypass graft(s), unspecified, with other forms of angina pectoris Intermittent claudication Home Medications ?Medication ?Instructions ?Recorded ?Last Taken ?Type tamsulosin 0.4 mg capsule 0.4 mg PO DAILY URINE FLOW 03/06/16 01/19/24 History aspirin 81 mg tablet,delayed 81 mg PO DAILY heart health 07/04/18 01/19/24 History release (Marisela Low Dose Aspirin) omeprazole 40 mg capsule,delayed 40 mg PO DAILY acid reflux 07/04/18 01/19/24 History release potassium chloride 20 mEq 20 meq PO DAILY supplement 07/04/18 01/19/24 History tablet,extended release multivitamin 1 tab PO DAILY 04/15/22 01/19/24 History furosemide 40 mg tablet 40 mg PO DAILY edema 11/18/22 01/19/24 History nitroglycerin 0.4 mg sublingual 0.4 mg sublingual Q5-15M PRN Chest 07/17/24 Unknown Rx tablet Pain #25 tabs ranolazine 1,000 mg 1,000 mg PO Q12H Heart 07/17/24 Unknown History tablet,extended release,12 hr hydrocodone-acetaminophen 5-325mg 1 tab PO Q6H PRN PRN Pain 3 days 01/10/25 01/11/25 Rx 5mg-325mg #10 TABLETS latanoprost 0.005 % eye drops 1 drp ophthalmic (eye) QHS eye 01/11/25 Unknown History health Allergy/AdvReac Type Severity Reaction Status Date / Time tramadol (From Ultram) AdvReac Other Verified 01/10/25 10:15 Family History Father CAD (coronary artery disease) CHF (congestive heart failure) Mother Heart disease Brother Diabetes Cancer Hx of CABG CAD (coronary artery disease) Sister COPD (chronic obstructive pulmonary disease) Diabetes Surgical History (Updated 01/11/25 @ 13:[address] Mallory Baum DO) Status post total knee replacement, right H/O shoulder surgery History of carpal tunnel surgery History of bilateral knee replacement Hx of CABG (~05/2005) History of arthroscopy (~07/2011) H/O cardiac radiofrequency ablation (~10/2006) History of PTCA History of left heart catheterization (LHC) (~09/2007) Social History (Updated 01/11/25 @ 13:[address] Mallory Baum DO) household members: none housing: other details: lives in a converted garage at his son's house. number of children: 2 current occupational status: retired Smoking Status: Never smoker alcohol intake: never substance use type: does not use caffeine: No what type of physical activity do you participate in: none seatbelt use: always do you feel safe at home: Yes ROS ROS Narrative Please see HPI Constitutional Constitutional: Reports as per HPI Eyes Eyes: Reports systems reviewed and no addt'l complaints, except as documented ENT HEENT: Reports systems reviewed and no addt'l complaints, except as documented Cardiovascular Cardiovascular: Reports other Details: HX of A-fib s/p ablation, has a known murmur Respiratory/Chest Respiratory/Chest: Reports pain on inspiration and other Details: related to rib fractures Gastrointestinal Gastrointestinal: Reports constipation Genitourinary Genitourinary: Reports dribbling and other Details: on Flomax Musculoskeletal Musculoskeletal: Reports other Details: Rib fractures as per HPI Integumentary Integumentary: Reports systems reviewed and no addt'l complaints, except as documented Neurologic Neurologic: Reports systems reviewed and no addt'l complaints, except as documented Psychiatric Psychiatric: Reports systems reviewed and no addt'l complaints, except as documented Endocrine Endocrinology: Reports systems reviewed and no addt'l complaints, except as documented Hematologic/Lymphatic Hematologic/Lymphatic: Reports systems reviewed and no addt'l complaints, except as documented Allergic/Immunologic Allergic/Immunologic: Reports systems reviewed and no addt'l complaints, except as documented Vital Signs Vital Signs Vital Signs: Weight Weight: 248 lb 2 oz Body Mass Index (BMI) 36.6 Indicators for Scoring Admitted with or Primary Diagnosis of CVA/Stroke: No Hx of CVA/Stroke: No Modified Oracio Score MRS Score at time of Evaluation: 1-No significant disability Physical Exam Const oriented x3 Constitutional Narrative: obesity General Appearance: cooperative Orientation / Consciousness: awake, oriented to person, oriented to place and oriented to time Nutritional Appearance: obese HEENT normocephalic Head and Scalp: normal to inspection Face and Sinus: normal facial exam General Ear: other Other Details: wears hearing aides but forgets them frequently Eyes PERRL General Eye: normal appearance of both eyes Neck full ROM Chest Chest Narrative: HX of CABG x 3v, R and L rib fx Chest: localized rib tenderness with anteroposterior compression Resp Resp Narrative: Difficulty taking a deep breath related to rib fractures. Effort and Inspection: able to speak in complete sentences and pain with movement Auscultation: clear to auscultation bilaterally Cardio regular rate Cardio Narrative: murmur, 1+ pitting edema to bilateral lower extremities Rate: regular rate Rhythm: regular rhythm Heart Sounds: S1 normal, S2 normal and murmur GI normal to inspection, nondistended, normoactive bowel sounds GI Narrative: chronic constipation Palpation: soft no CVA tenderness Psych mental status grossly normal Results Lab / Micro Data 01/11/25 12:36 01/11/25 12:36 Assessment & Plan Assessment/Plan (1) Physical debility: (2) Fall: QUALIFIERS: Encounter type: subsequent encounter Qualified Code(s): W19.XXXD - Unspecified fall, subsequent encounter PLAN: Fall precautions PT-OT eval and treat (3) Multiple rib fractures: QUALIFIERS: Encounter type: subsequent encounter Fracture type: closed Laterality: bilateral Qualified Code(s): S22.43XD - Multiple fractures of ribs, bilateral, subsequent encounter for fracture with routine healing PLAN: incentive spirometry 10 x per hour while awake splinting with back blanket vital signs Q shift (4) Bilateral lower extremity edema: PLAN: Furosemide 40mg PO q day (5) Uncontrolled pain: PLAN: acetaminophen 1,000mg PO q 8 hours IRENA Ibuprofen 600mg PO q 8 hours IRENA [place] 5/325mg PO PRN breakthrough pain q 6 hours (6) Chronic renal failure, stage 3a: (7) Chronic constipation: (8) (HFpEF) heart failure with preserved ejection fraction: (9) Pulmonary hypertension: (10) AF (paroxysmal atrial fibrillation): (11) Aortic valve stenosis, nonrheumatic: (12) GERD (gastroesophageal reflux disease): QUALIFIERS: Esophagitis presence: without esophagitis Qualified Code(s): K21.9 - Gastro-esophageal reflux disease without esophagitis (13) Class II obesity: PLAN: Plan Charges/Coding Visit Charges Inpatient E&M: 58640 Init Hosp L2 Documented by User: Dr. Mallory Baum DO 01/11/25 14:13 HPI - General General Date of Admission: 01/11/25 [facility] Medical History (Updated 01/11/25 @ 14:[address] Mallory Baum, DO) Class II obesity Chronic constipation Chronic renal failure, stage 3a Presbycusis of both ears Pulmonary hypertension (HFpEF) heart failure with preserved ejection fraction Dyslipidemia COVID-19 Aortic valve stenosis, nonrheumatic Coronary artery disease Hypokalemia Gastroesophageal reflux disease Benign prostate hyperplasia Debility Weakness Pressure injury of left buttock, stage 1 Stenosis, spinal, lumbar Neck pain Segmental and somatic dysfunction of thoracic region Segmental and somatic dysfunction of pelvic region Segmental and somatic dysfunction of lumbar region Segmental and somatic dysfunction of cervical region Degenerative disc disease, cervical Sleep apnea, obstructive Nonrheumatic aortic (valve) insufficiency Pure hypercholesterolemia Essential hypertension Neuropathic pain Hypokalemia GERD (gastroesophageal reflux disease) BPH (benign prostatic hyperplasia) Left trigger finger Left carpal tunnel syndrome Benign paroxysmal positional vertigo Fall Debility Laceration of head Dyspnea on exertion Prinzmetal angina CAD (coronary artery disease) Malignant pericardial effusion Atrial flutter Precordial chest pain History of percutaneous transluminal coronary angioplasty Abnormal result of cardiovascular function study, unspecified Pain in left shoulder Atherosclerosis of coronary artery bypass graft(s), unspecified, with other forms of angina pectoris Intermittent claudication Home Medications ?Medication ?Instructions ?Recorded ?Last Taken ?Type tamsulosin 0.4 mg capsule 0.4 mg PO DAILY URINE FLOW 03/06/16 01/19/24 History aspirin 81 mg tablet,delayed 81 mg PO DAILY heart health 07/04/18 01/19/24 History release (Marisela Low Dose Aspirin) omeprazole 40 mg capsule,delayed 40 mg PO DAILY acid reflux 07/04/18 01/19/24 History release potassium chloride 20 mEq 20 meq PO DAILY supplement 07/04/18 01/19/24 History tablet,extended release multivitamin 1 tab PO DAILY 04/15/22 01/19/24 History furosemide 40 mg tablet 40 mg PO DAILY edema 11/18/22 01/19/24 History nitroglycerin 0.4 mg sublingual 0.4 mg sublingual Q5-15M PRN Chest 07/17/24 Unknown Rx tablet Pain #25 tabs ranolazine 1,000 mg 1,000 mg PO Q12H Heart 07/17/24 Unknown History tablet,extended release,12 hr hydrocodone-acetaminophen 5-325mg 1 tab PO Q6H PRN PRN Pain 3 days 01/10/25 01/11/25 Rx 5mg-325mg #10 TABLETS latanoprost 0.005 % eye drops 1 drp ophthalmic (eye) QHS eye 01/11/25 Unknown History health Allergy/AdvReac Type Severity Reaction Status Date / Time tramadol (From Ultram) AdvReac Other Verified 01/10/25 10:15 Family History Father CAD (coronary artery disease) CHF (congestive heart failure) Mother Heart disease Brother Diabetes Cancer Hx of CABG CAD (coronary artery disease) Sister COPD (chronic obstructive pulmonary disease) Diabetes Surgical History (Updated 01/11/25 @ 13:[address] Mallory Baum DO) Status post total knee replacement, right H/O shoulder surgery History of carpal tunnel surgery History of bilateral knee replacement Hx of CABG (~05/2005) History of arthroscopy (~07/2011) H/O cardiac radiofrequency ablation (~10/2006) History of PTCA History of left heart catheterization (LHC) (~09/2007) Social History (Updated 01/11/25 @ 13:[address] Mallory Baum DO) household members: none housing: other details: lives in a converted garage at his son's house. number of children: 2 current occupational status: retired Smoking Status: Never smoker alcohol intake: never substance use type: does not use caffeine: No what type of physical activity do you participate in: none seatbelt use: always do you feel safe at home: Yes Homelessness:: Sheltered Indicators for Scoring Admitted with or Primary Diagnosis of CVA/Stroke: No Hx of CVA/Stroke: No NIHSS Stroke Questions Stroke Team Activated: No Physical Exam Eyes EOMs intact bilaterally, conjunctivae normal and no scleral icterus Eyes Narrative: No discharge from the eyes Neck supple Cardio Cardio Narrative: Irregularly irregular rhythm with controlled ventricular response. systolic Murmur due to . 1+ pitting edema to bilateral lower extremities Rhythm: abnormal rhythm irregularly irregular Extremity no calf tenderness Extremity Narrative: +1 pitting edema of the distal lower extremities Skin Wound Narrative: Has a pressure ulcer on the buttocks and bruising form the fall. Neuro oriented x3, CN's II-XII intact bilaterally and moves all extremities Psych cooperative and affect normal Appearance: grossly normal, appropriate and well kempt Attitude: calm and engaged Activity / Motor Behavior: appropriate eye contact Results Lab / Micro Data 01/11/25 12:36 01/11/25 12:36 Assessment & Plan Assessment/Plan (1) Physical debility: (2) Fall: QUALIFIERS: Encounter type: subsequent encounter Qualified Code(s): W19.XXXD - Unspecified fall, subsequent encounter (3) Multiple rib fractures: QUALIFIERS: Encounter type: subsequent encounter Fracture type: closed Laterality: bilateral Qualified Code(s): S22.43XD - Multiple fractures of ribs, bilateral, subsequent encounter for fracture with routine healing (4) Bilateral lower extremity edema: (5) Uncontrolled pain: (6) Chronic renal failure, stage 3a: (7) Chronic constipation: (8) (HFpEF) heart failure with preserved ejection fraction: (9) Pulmonary hypertension: (10) AF (paroxysmal atrial fibrillation): (11) Aortic valve stenosis, nonrheumatic: (12) GERD (gastroesophageal reflux disease): QUALIFIERS: Esophagitis presence: without esophagitis Qualified Code(s): K21.9 - Gastro-esophageal reflux disease without esophagitis (13) Class II obesity: PLAN: Plan I independently talked with the patient and examined him. I reviewed the KAMALA note and agree with findings. He has stage 3a CRF and a hx of GERD (on Protonix) Will change NSAID to Celebrex once a day and limit use to no longer than 1 week. Will DC [place] because he is already on scheduled Tylenol 1 GM Q8H and add Oxycodone 5 mg Q 6H. Add scheduled tizanidine for muscle spasms. If we can not get the pain adequately controlled with the current regimen then will consult pain management for possible rib blocks. And IS/PEP therapy. Pulmonary toilet is most important in this patient who has had breathing problems in the past requiring steroids. Add Lovenox 40 mg daily and RENETTA hose for DVT prophylaxis.
[2025-01-11 11:43] VITALS: O2SAT 95
[2025-01-11 12:50] LABS: Hematocrit 41.3 % (40-54); Hemoglobin 14.3 g/dL (13.0-16.5); Immature Granulocytes Count 0.030 X10^3/uL (0.0-0.0); Mean Corp Hgb Conc 34.6 g/dL (32-36); Mean Corpuscular Volume 107.8 fL (80-94); Mean Platelet Vol. 12.3 fl (6.2-12.0); NRBC Flagged by Analyzer 0 % (0-5); POSITIVE DIFFERENTIAL YES; Platelet Count 114 K/mm3 (150-450); RBC Distribution Width CV 14.6 % (11.6-14.6); RBC Distribution Width SD 58.4 fl (35.1-43.9); Red Blood Count 3.83 M/mm3 (4.6-6.2); White Blood Count 5.8 K/mm3 (4.4-11.0)
[2025-01-11 13:53] VITALS: BP 107/60; BP 112/67; BP 142/70; PULSE 65; PULSE 72; PULSE 76
[2025-01-11 14:00] LABS: AST(SGOT) 35 U/L (<=37); Alanine Aminotransfer ALT/SGPT 16 U/L (<=46); Albumin, Serum 4.0 g/dL (3.4-4.8); Alkaline Phosphatase 57 U/L (40-129); Anion Gap 13 (5-15); BUN 36 mg/dL (4-19); BUN/Creat Ratio 29.0 RATIO (10-20); Calcium,Total 9.9 mg/dL (7.6-11.0); Carbon Dioxide 23.4 mmol/L (21.0-32.0); Chloride 104 mmol/L (98-108); Estimated Creatinine Clearance 51.91 ml/min (50-250); Globulin 2.9 g/dL (2.2-4.2); Glucose 116 mg/dL (70-99); Magnesium 2.3 mg/dL (1.5-2.2); Potassium 4.0 mmol/L (3.3-5.1)
[2025-01-11 14:34] LABS: Vitamin B12 791 pg/mL (180-914)
[2025-01-11 15:03] LABS: FOLATES,SERUM (FOLIC ACID) 27.80 ng/mL (4.60-34.80)
[2025-01-11 16:32] VITALS: BP 98/52; PULSE 61; RESP 18; TEMP 36.9; O2SAT 94
[2025-01-11] MEDS: Latanoprost 0.005% 1 Bottle 1 DRP OPHTHALMIC (21:36)
[2025-01-11] MEDS: Senna/Docusate Sodium 1 Tablet 2 TABLET PO (21:36)
[2025-01-11 22:00] VITALS: PULSE 97; O2SAT 97
[2025-01-12 06:00] VITALS: BP 126/57; PULSE 55; RESP 16; TEMP 36.7; O2SAT 94
[2025-01-12] MEDS: Aspirin E.C. 81 MG Tablet PO (08:22)
[2025-01-12] MEDS: Potassium Chloride Oral Tablet 20 MEQ PO (08:23)
[2025-01-12] MEDS: Senna/Docusate Sodium 1 Tablet 2 TABLET PO ×2 (08:24→22:00)
[2025-01-12 08:49] VITALS: PULSE 90; O2SAT 96
--- NOTE | 2025-01-12 10:41 | PCM.RU.PYE ---
Admission Information Primary Diagnosis:: Debility secondary to fall/multiple rib fracture Status Changes from Prescreening?: No changes Identified Actual Problem List:: Falls, Pain, ALteration in Cmfrt, Bowel, Constipation, Alteration in Sleep, Mobility Impaired, Self Care Deficit and Alteration-Leisure Activ. Potential Problem List:: DVT, Bleeding, Infection, UTI, Aspiration, Falls, Skin Integrity and Depression Risk of Complications DVT: LMWH and RENETTA Hose Bleeding: Monitor Lab Values, Nursing to Teach Precautions for anti-coagulation therapy., Wound, if applicable, to be assessed every shift. and Stroke patients assessed for lethargy or change in status. Infection: Clinical Staff to Monitor for S/S of infection: and S/S of infection include fever, redness, warmth, etc. Urinary Tract Infection: Monitor for frequency, burning, discomfort, or incontinence. and Nursing will obtain urine sample for urinalysis and C&S when ordered. Aspiration: Clinical staff will monitor for coughing, drooling, congestion., Speech will evaluate swallowing and dsyphasia. and Nursing will monitor patient swallowing during meals. Falls: Patient will be evaluated for Fall Precautions and Patient will be placed on Fall Precautions as indicated per protocol. Skin Breakdown: Nursing will assess skin daily using assessment tool. and Nursing will place on Skin Breakdown Precautions as indicated. Pain: Clinical staff will assess patient's pain level per protocol., Medications will be given, if needed, and the pain level reassessed. and Other methods: Massage, distraction, decrease stimulus, etc. used PRN. Plan of Care Patient requires physician specializing in physical medicine and rehab oversight to provide close medical supervision of rehab issues including: Pain Management, Sleep Problems, Bowel and Bladder, Medical and co-morbidity Management, DVT prophylaxis, Rehabilitation Leadership and Coordination of treatment team Patient needs Physical Therapy: For a minimum of 1 hour and At least 5 out of 7 days Patient needs Physical Therapy to improve:: Mobility, Strengthening, Transfers, Stretching, ROM, Endurance, Stairs, Gait and Balance Patient needs Occupational Therapy: For a minimum of 1 hour and At least 5 out of 7 days Patient needs Occupational Therapy to improve ADL's incl.: Eating, Grooming, Bathing, Dressing, Toileting, Toilet transfers, Community Reintegration, Higher functioning activities, Household tasks, Adaptive Equipment, Splinting and Other activities as determined Patient requires 24/ Rehabilitation Nursing for: Pain Issues, Identifying and preventing risk factors, Monitoring and reporting current medical conditions, Assisting with ambulation, transfer, and all ADL's, Teaching patients about disease process and medications, Family teaching, Providing safe environment, Bowel and Bladder Issues, Skin integrity and Medication Management Patient needs Director Of Real Estate/ Case Management for: Discharge Planning, Arranging Home Equipment or Services and Family Interventions Patient needs Dietary and Nutrition Services for: Adequate Nutrition, Nutritional Supplements and Nutritional Education Goals Goals Patient will remain: free from falls Patient will perform eating at: MOD I level of assist. Patient will perform bed mobility at: MOD I level of assist. Patient will complete transfers from bed to chair at: MOD I level of assist. Patient will ambulate: - (200 feet with least restrictive device at standby assist) Patient will complete upper body dressing at: MOD I level of assist. Patient will complete lower body dressing at: MOD I level of assist. Patient will complete toilet transfer at: MOD I level of assist. Patient will complete toileting at: MOD I level of assist. Patient will perform bathing at: MOD I level of assist. (Upper body bathing independently and lower body bathing at mod I with adaptive equipment as needed.) Patient will perform Tub/Shower transfer at: - (Supervision) Patient will complete grooming at: MOD I level of assist. Patient will complete home management skills at: MOD I level of assist. Patient will achieve: - (1 curb step with least restrictive device at supervision) Patient will have pain level of: of 3 or less Patient's skin will: remain intact Patient will receive: adequate nutrition. Discharge Planning Pt Prognosis for Sig. Practical Improv. w/in Reasonable Time: Good Estimated Length of stay (days): 21 Anticipated D/C Destination: Home w/ family or friends Was Preadmission Assessment Accurate?: Yes
--- NOTE | 2025-01-12 10:49 | PN_ITS ---
Subjective Subjective Afebrile Heart rate is ranged from 55-97 since admission to rehab. The blood pressure is ranged from 98/52 to 128/71. Denies lightheadedness while sitting up in the recliner today. Maintaining appropriate oxygen saturation on room air. Folate and B12 were within normal limits. Kenan tells me that the Oxycodone 5 mg is effective in controlling pain but, it does not last 6 hours. He was sitting in the recliner when I entered the room and looked very uncomfortable and was grimacing with any movement. No confusion or hallucinations per nursing. Denies cough, night sweats, chills, hemoptysis. He has chronic constipation and uses laxatives regularly at home. Has had to use Mag citrate at times. Has to bear down to have a BM. Has bleeding hemorrhoids at times. TSH normal. I reviewed a CT scan of the abdomen and pelvis that he had in July 2024 and it showed diffuse gastric wall thickening with prominent folds. He has sigmoid diverticulosis but had no diverticulitis. He had oral and IV contrast with the CT scan. I do not see any endoscopy notes over the past 4-5 years when I review the EMR. Has not been losing weight. BUN and CREAT have been chronically elevated since 2022. Does not drink enough water and he is sedentary most of the time. This likely contributes to the chronic constipation. Objective Data Objective Data Vital Signs: Vital Signs Temp Pulse Resp BP Pulse Ox O2 Del Method 98.1 F 90 16 126/57 H 96 Room Air 01/12/25 06:00 01/12/25 08:49 01/12/25 06:00 01/12/25 06:00 01/12/25 08:49 01/12/25 08:49 Oxygen Delivery Method Room Air Weight: 248 lb 2.014 oz Body Mass Index (BMI) 36.6 Intake & Output: Intake and Output for Last 24 Hours 01/10/25 01/11/25 01/12/25 23:59 23:59 23:59 Intake Total 480 / 680 500 / 500 Output Total 550 / 850 1200 / 1200 Balance -70 / -170 -700 / -700 Lab / Micro Data 01/11/25 12:36 01/11/25 12:36 Labs: Laboratory Results - last 24 hr 01/11/25 12:36: WBC 5.8, RBC 3.83 L, Hgb 14.3, Hct 41.3, MCV 107.8 H, MCH 37.3 H , MCHC 34.6, RDW Std Deviation 58.4 H, RDW Coeff of Brigitte 14.6, Plt Count 114 L, M PV 12.3 H, Immature Gran % (Auto) 0.500, Neut % (Auto) 66.5, Lymph % (Auto) 9.3 L, [place] % (Auto) 19.8 H, Eos % (Auto) 3.4, Baso % (Auto) 0.5, Absolute Neuts (auto) 3.9, Absolute Lymphs (auto) 0.54 L, Nucleated RBC % 0, Sodium 140, Potassium 4.0, Chloride 104, Carbon Dioxide 23.4, Anion Gap 13, BUN 36 H, C reatinine 1.24 H, Estim Creat Clear Calc 51.91, Est GFR (MDRD) Non-Af 56 L, B UN/Creatinine Ratio 29.0 H, Glucose 116 H, Calcium 9.9, Phosphorus 3.5, M agnesium 2.3 H, Total Bilirubin 0.65, AST 35, ALT 16, Alkaline Phosphatase 57, Total Protein 6.9, Albumin 4.0, Globulin 2.9, Albumin/Globulin Ratio 1.4 01/11/25 13:38: Vitamin B12 791, Serum Folate 27.80 Social Homelessness:: Sheltered Physical Exam Const alert and oriented x3 Constitutional Narrative: no confusion. in obvious pain General Appearance: cooperative HEENT Mouth: dry mucous membranes Resp Resp Narrative: No conversational dyspnea. No crackles and no wheezes. Effort and Inspection: Negative for tachypneic Auscultation: diminished lung sounds diffuse (poor inspiratory effort due to rib pain with deep breathing.) GI GI Narrative: Nontender to palpation. Obese. Mildly tympanic. Soft. Hypoactive bowel sounds present. Extremity no calf tenderness Skin Skin Narrative: Has had a pressure injury to the left buttock dating back to at least 2020. I have not had the opportunity to exam this but, nursing tells me that there is no opening in the skin. He is not c/o any pain. Assessment & Plan Assessment/Plan (1) Physical debility: (2) Fall: QUALIFIERS: Encounter type: subsequent encounter Qualified Code(s): W19.XXXD - Unspecified fall, subsequent encounter (3) Multiple rib fractures: QUALIFIERS: Encounter type: subsequent encounter Fracture type: c losed Laterality: bilateral Qualified Code(s): S22.43XD - Multiple fractures of ribs, bilateral, subsequent encounter for fracture with routine healing (4) Bilateral lower extremity edema: (5) Uncontrolled pain: (6) Chronic renal failure, stage 3a: (7) Chronic constipation: (8) (HFpEF) heart failure with preserved ejection fraction: QUALIFIERS: Heart failure chronicity: chronic Qualified Code(s): I50.32 - Chronic diastolic (congestive) heart failure (9) Pulmonary hypertension: (10) AF (paroxysmal atrial fibrillation): (11) Aortic valve stenosis, nonrheumatic: (12) GERD (gastroesophageal reflux disease): QUALIFIERS: Esophagitis presence: without esophagitis Qualified Code(s): K21.9 - Gastro-esophageal reflux disease without esophagitis (13) Class II obesity: PLAN: Plan 1. Continue therapy. Limited by poor pain control today. PT with work with him in the room today. 2. Change the Oxycodone dosing to Q 4 hours during the day while awake. Give 10 mg at HS and add a PRN dose for between 2 and 5 in the morning for breakthrough pain. 3. Add Miralax to the drug regimen. 4. D/W nursing - will give a laxative today. 5. Encouraged increased fluid intake. 6. Anusol HC PRN for hemorrhoids. Charges/Coding Visit Charges Inpatient E&M: 24907 [facility] L1
[2025-01-12 12:00] VITALS: O2SAT 93
[2025-01-12] MEDS: Polyethylene Glycol 3350 17 GM PACKET PO ×2 (12:02→21:59)
[2025-01-12 16:48] VITALS: BP 106/58; PULSE 69; RESP 16; TEMP 36.8; O2SAT 95
[2025-01-12 20:20] VITALS: PULSE 72; O2SAT 92
[2025-01-12] MEDS: Latanoprost 0.005% 1 Bottle 1 DRP OPHTHALMIC (22:00)
[2025-01-13 05:50] VITALS: BP 119/67; PULSE 56; RESP 18; TEMP 37.3; O2SAT 93
[2025-01-13] MEDS: Senna/Docusate Sodium 1 Tablet 2 TABLET PO ×2 (09:07→21:20)
[2025-01-13] MEDS: Potassium Chloride Oral Tablet 20 MEQ PO (09:07)
[2025-01-13] MEDS: Aspirin E.C. 81 MG Tablet PO (09:07)
[2025-01-13] MEDS: Polyethylene Glycol 3350 17 GM PACKET PO ×2 (09:08→21:21)
[2025-01-13 17:56] VITALS: BP 108/55; PULSE 67; RESP 17; TEMP 36.8; O2SAT 96
[2025-01-13] MEDS: Latanoprost 0.005% 1 Bottle 1 DRP OPHTHALMIC (21:21)
[2025-01-14 06:30] VITALS: BP 111/67; PULSE 67; RESP 16; TEMP 37.2; O2SAT 96
--- NOTE | 2025-01-14 08:05 | PN_ITS ---
Subjective Subjective Kenan was seen on team rounds today. His son Kenan participated by phone. All their questions were answered to their satisfaction. Afebrile VSS - Maintaining appropriate oxygen saturation on RA Oral intake - FOOD good FLUIDS poor Only 1 BM since arrival of rehab. Currently on senna 2 tablets 2 times a day and MiraLAX twice daily. Discussed with nursing - no problems that need addressed Reviewed the THERAPY notes Medication list reviewed. Pain is adequately controlled at present. Sleeping at night. No confusion or hallucinations. He is c/o dry mouth. Not having regular BM's but, has had 2 today. He had 30 cc of milk of magnesia yesterday and today got a Dulcolax suppository which was effective. He has been compliant with the stool softeners. He is also c/o a cough. He is now able to cough without grimacing in pain. Denies SOB and lightheadedness. No calf pain. He is having some nausea and I suspect this is due to the narcotics. Denies abd pain and he also denies heart burn. Sits with his legs dependent while sitting in the recliner and has some mild distal pitting/ankle edema Objective Data Objective Data Vital Signs: Vital Signs Temp Pulse Resp BP Pulse Ox O2 Del Method FiO2 98.9 F 67 16 111/67 96 Room Air 21 01/14/25 06:30 01/14/25 06:30 01/14/25 06:30 01/14/25 06:30 01/14/25 06:30 01/14/25 06:30 01/12/25 20:20 Oxygen Delivery Method Room Air Weight: 248 lb 2.014 oz Body Mass Index (BMI) 36.6 Intake & Output: Intake and Output for Last 24 Hours 01/12/25 01/13/25 01/14/25 23:59 23:59 23:59 Intake Total 1600 / 1600 810 / 810 Output Total 1550 / 1550 900 / 900 200 / 200 Balance 50 / 50 -90 / -90 -200 / -200 Lab / Micro Data 01/11/25 12:36 01/11/25 12:36 Micro: Microbiology 01/12/25 08:40 Stool Stool Occult Blood (REUBEN) - Final Occult Blood Positive Social Homelessness:: Sheltered Physical Exam Const alert and oriented x3 Constitutional Narrative: No longer grimacing with movement and he is able to cough with no grimacing and grabbing his R side. Pain is primarily on the R side. Not confused. No hallucinations. General Appearance: cooperative HEENT Mouth: dry mucous membranes Resp Resp Narrative: Initially had coarse crackles in the R base posteriorly but, after several deep breaths the crackles completely went away. No conversational dyspnea. Speaking in complete sentences. Effort and Inspection: Negative for tachypneic Cardio Cardio Narrative: slow and irregular today. will order an EKG. No gallop. GI GI Narrative: mild distension, obese, mild tympany NT to palpation. Extremity no calf tenderness Extremity Narrative: He has edema of the distal LE's to just above the ankles and he has pitting in the ankles which is mild. He has hyperpigmentation and purple discoloration of the legs when dependent and I suspect he is on Lasix for venous insufficiency/leg edema rather than CHF....EF normal. He has compression stockings at home but, his some says he won't wear them. He sits most of the day and does not elevate his legs. He chronically has poor water intake and is on Lasix and this likely contributes significantly to chronic constipation and need for frequent laxative use. He has stasis dermatitis of the LE's due to venous insufficiency. General Extremity: edema Skin Rashes: no rashes Psych affect normal Assessment & Plan Assessment/Plan (1) Physical debility: (2) Fall: QUALIFIERS: Encounter type: subsequent encounter Qualified Code(s): W19.XXXD - Unspecified fall, subsequent encounter (3) Multiple rib fractures: QUALIFIERS: Encounter type: subsequent encounter Fracture type: c losed Laterality: bilateral Qualified Code(s): S22.43XD - Multiple fractures of ribs, bilateral, subsequent encounter for fracture with routine healing (4) Uncontrolled pain: (5) Chronic renal failure, stage 3a: (6) Chronic constipation: (7) (HFpEF) heart failure with preserved ejection fraction: QUALIFIERS: Heart failure chronicity: chronic Qualified Code(s): I50.32 - Chronic diastolic (congestive) heart failure PLAN: vs leg edema due to chronic venous insufficiency + pulmonary HTN. (8) Pulmonary hypertension: PLAN: The right ventricular systolic pressure in July 2023 was estimated at 36 which is only mild pulmonary hypertension. (9) AF (paroxysmal atrial fibrillation): PLAN: Not on an anticoagulant. Has had ablations in the past....... 2004 and 2006 at [facility]. Twelve-lead EKG on 01/20/2024 at the cardiology office showed normal sinus rhythm with a first-degree AV block at a rate of 75. He has declined anticoagulation in the past. He is not on a rate limiting medication. (10) Aortic valve stenosis, nonrheumatic: PLAN: moderate on ECHO in 2023...... valve area was 1 cm?. (11) GERD (gastroesophageal reflux disease): QUALIFIERS: Esophagitis presence: without esophagitis Qualified Code(s): K21.9 - Gastro-esophageal reflux disease without esophagitis (12) Class II obesity: (13) Venous insufficiency (chronic) (peripheral): PLAN: Plan 1. Continue therapy 2. Continue current pain regimen 3. Dulcolax tablets 10 mg today. 4. KUB today 5. Check a H&H and BMP on 6. Poor oral intake-hold Lasix x 2 days and then restart. Enocuraged increased fluid intake. 7. Either RENETTA hose or Carlitos wraps to the bilateral lower extremities and encouraged him to keep his legs up when he is seated in the recliner. Charges/Coding Visit Charges Inpatient E&M: 77777 [facility] L2
[2025-01-14] MEDS: Senna/Docusate Sodium 1 Tablet 2 TABLET PO ×2 (08:17→21:28)
[2025-01-14] MEDS: Potassium Chloride Oral Tablet 20 MEQ PO (08:17)
[2025-01-14] MEDS: Polyethylene Glycol 3350 17 GM PACKET PO ×2 (08:18→21:29)
[2025-01-14] MEDS: Aspirin E.C. 81 MG Tablet PO (08:18)
--- NOTE | 2025-01-14 08:30 | RAD_ITS ---
EXAM: XR Abdomen, 1 View CLINICAL INDICATION: CONSTIPATION TECHNIQUE: Frontal supine view of the abdomen/pelvis. COMPARISON: No relevant prior studies available. FINDINGS: GASTROINTESTINAL TRACT: Fecal retention in the colon consistent with constipation. No dilation. BONES/JOINTS: Unremarkable. No acute fracture. SOFT TISSUES: Multiple circular foreign bodies projects over the left hemipelvis and central pelvic cavity. RAD/Abdomen Single View IMPRESSION: 1. Multiple circular foreign bodies projects over the left hemipelvis and cent ral pelvic cavity. 2. Fecal retention in the colon consistent with constipation. Reading [facility]
--- NOTE | 2025-01-14 13:02 | CASEMGMT ---
Social Work IDT met with patient at bedside then son via conference call for Team meeting. Discussed patient's progress in PT/OT/ST/SN/MD. Educated to Medicare benefit. Pt's goal is to return home. Once admission assessment is completed, this worker will assess and assist for DC needs. Will Team weekly. SW will continue to follow. Juliet Orr [employer]
--- NOTE | 2025-01-14 14:39 | EKG12_ITS ---
Test Reason : irregular Blood Pressure : */* mmHG Vent. Rate : 80 BPM Atrial Rate : 80 BPM P-R Int : 238 ms QRS Dur : 114 ms QT Int : 410 ms P-R-T Axes : 55 -38 47 degrees QTcB Int : 472 ms Sinus rhythm with marked sinus arrhythmia with 1st degree A-V block Left axis deviation Cannot rule out Septal infarct , age undetermined Abnormal ECG When compared with ECG of 20-Jan-2024 10:50, Left bundle branch block is no longer Present Septal infarct is now Present Confirmed by Peter Morel ([id number]), production editor BRUCE BARRIOS ([id number]) on 01/15/2025 1:33:59 PM Referred By: Mallory Baum Confirmed By: Peter Morel
[2025-01-14 18:00] VITALS: BP 106/50; PULSE 63; RESP 18; TEMP 36.6; O2SAT 96
[2025-01-14] MEDS: Latanoprost 0.005% 1 Bottle 1 DRP OPHTHALMIC (21:28)
[2025-01-14] MEDS: Petrolatum 33% Tube 1 APPLIC TOPICAL (21:30)
[2025-01-14] MEDS: Lidocaine 5% Patch 3 PATCH TOPICAL (21:31)
[2025-01-14 22:00] VITALS: PULSE 80; RESP 17; O2SAT 97
[2025-01-15] VITALS (12 sets, daily range): BP systolic 122–154; BP diastolic 63–86; PULSE 59–92; RESP 14–18; TEMP 36.2–36.7; O2SAT 93–98
[2025-01-15] MEDS: Potassium Chloride Oral Tablet 20 MEQ PO (07:54)
[2025-01-15] MEDS: Polyethylene Glycol 3350 17 GM PACKET PO ×2 (07:54→21:17)
[2025-01-15] MEDS: Aspirin E.C. 81 MG Tablet PO (07:54)
[2025-01-15] MEDS: Senna/Docusate Sodium 1 Tablet 2 TABLET PO ×2 (07:56→21:18)
--- NOTE | 2025-01-15 09:54 | PCM.PROGNOTE ---
Subjective Subjective Afebrile VSS -blood pressure for the past 24 hours has ranged from 106/52 130/84. Heart rate is ranged from 56-92. Maintaining appropriate oxygen saturation on RA Oral intake - FOOD good FLUIDS improved after our discussion yesterday. He took an 1740 cc orally yesterday and had 1200 cc out for a fluid balance of +540. Discussed with nursing - no problems that need addressed Reviewed the THERAPY notes Medication list reviewed. I reviewed the EKG done yesterday and it showed sinus arrhythmia with first-degree AV block. The IA interval is 238 ms. He has a left anterior hemiblock. slept fair last night.........awakened a number of times for toileting. Pain is adequately controlled and he has been able to work with therapy but, he has been requiring narcotic 5 X's a day, Tizanidine and Tylenol TID. No longer having muscle spasms. He saw Dr. Mantilla last evening and a Lidocaine patch was applied. He tells me that the patch on the left side was helpful but, not so much on the R side. He would like to proceed with intercoastal injections. Dr. Mantilla's office was notified. He will be an add on for today and then hopefully we will be able to taper the narcotic use. He has been having nausea with Oxycodone. Denies cough today and he denies SOB. No lightheadedeness. Objective Data Objective Data Vital Signs: Vital Signs Temp Pulse Resp BP Pulse Ox O2 Del Method FiO2 97.9 F 92 15 130/84 H 94 Room Air 21 01/15/25 06:00 01/15/25 06:00 01/15/25 06:00 01/15/25 06:00 01/15/25 06:44 01/15/25 06:44 01/12/25 20:20 Oxygen Delivery Method Room Air Weight: 248 lb 2.014 oz Body Mass Index (BMI) 36.6 Intake & Output: Intake and Output for Last 24 Hours 01/13/25 01/14/25 01/15/25 23:59 23:59 23:59 Intake Total 810 / 810 1740 / 1740 400 / 400 Output Total 900 / 900 1200 / 1200 Balance -90 / -90 540 / 540 400 / 400 Lab / Micro Data 01/11/25 12:36 01/11/25 12:36 Micro: Microbiology 01/12/25 08:40 Stool Stool Occult Blood (REUBEN) - Final Occult Blood Positive Social Homelessness:: Sheltered Physical Exam Const alert and oriented x3 Constitutional Narrative: Sitting in the recliner at the bedside. Looks comfortable. He is appropriate and denies nausea at present. General Appearance: cooperative Orientation / Consciousness: Negative for confused Resp Resp Narrative: Initially had coarse crackles in the R base posteriorly but, after several deep breaths the crackles completely went away. No conversational dyspnea. Speaking in complete sentences. Effort and Inspection: Negative for tachypneic Cardio Cardio Narrative: irregular.....EKG yesterday with sinus arrhythmia. HR is WNL. GI GI Narrative: mild distension, obese, mild tympany NT to palpation. He had 3 BM's yesterday and has had 1 today so far at 0230. Extremity no calf tenderness General Extremity: edema Skin Rashes: no rashes Psych affect normal Assessment & Plan Assessment/Plan (1) Physical debility: (2) Fall: QUALIFIERS: Encounter type: subsequent encounter Qualified Code(s): W19.XXXD - Unspecified fall, subsequent encounter (3) Multiple rib fractures: QUALIFIERS: Encounter type: subsequent encounter Fracture type: closed Laterality: bilateral Qualified Code(s): S22.43XD - Multiple fractures of ribs, bilateral, subsequent encounter for fracture with routine healing (4) Uncontrolled pain: (5) Chronic renal failure, stage 3a: (6) Chronic constipation: (7) (HFpEF) heart failure with preserved ejection fraction: QUALIFIERS: Heart failure chronicity: chronic Qualified Code(s): I50.32 - Chronic diastolic (congestive) heart failure PLAN: vs leg edema due to chronic venous insufficiency + pulmonary HTN. (8) Pulmonary hypertension: PLAN: The right ventricular systolic pressure in July 2023 was estimated at 36 which is only mild pulmonary hypertension. (9) AF (paroxysmal atrial fibrillation): PLAN: Not on an anticoagulant. Has had ablations in the past....... 2004 and 2006 at [facility]. Twelve-lead EKG on 01/20/2024 at the cardiology office showed normal sinus rhythm with a first-degree AV block at a rate of 75. He has declined anticoagulation in the past. He is not on a rate limiting medication. (10) Aortic valve stenosis, nonrheumatic: PLAN: moderate on ECHO in 2023...... valve area was 1 cm?. (11) GERD (gastroesophageal reflux disease): QUALIFIERS: Esophagitis presence: without esophagitis Qualified Code(s): K21.9 - Gastro-esophageal reflux disease without esophagitis (12) Class II obesity: (13) Venous insufficiency (chronic) (peripheral): (14) Heme positive stool: (15) Hemorrhoids: (16) Thrombocytopenia: PLAN: Plan 1. Continue therapy 2. 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 3. Lab ordered for . Charges/Coding Visit Charges Inpatient E&M: [id number] [facility]osp L1
--- NOTE | 2025-01-15 12:00 | RAD_ITS ---
EXAM: INTRAOPERATIVE FLUOROSCOPY CLINICAL HISTORY: INTERCOSTAL BLOCK 8 9 10 COMPARISON: Right ankle radiographs from 08/18/2014 TECHNIQUE: 5 intraoperative fluoroscopy spot images are submitted for review. FINDINGS: Intraoperative fluoroscopy status post thoracic intercostal nerve block at T8, T9, T10. Total fluoroscopy time 28.5 seconds. Total radiation dose 22.07 mGy. RAD/OR-Steroid Inj/Cer Thor/3rd L IMPRESSION: Intraoperative/procedural fluoroscopy as above. Reading Location: [id number]
--- NOTE | 2025-01-15 12:00 | RAD_ITS ---
EXAM: INTRAOPERATIVE FLUOROSCOPY CLINICAL HISTORY: INTERCOSTAL BLOCK 8 9 10 COMPARISON: Right ankle radiographs from 08/18/2014 TECHNIQUE: 5 intraoperative fluoroscopy spot images are submitted for review. FINDINGS: Intraoperative fluoroscopy status post thoracic intercostal nerve block at T8, T9, T10. Total fluoroscopy time 28.5 seconds. Total radiation dose 22.07 mGy. RAD/OR-Steroid Inj/Cer Thor/1st L IMPRESSION: Intraoperative/procedural fluoroscopy as above. Reading Location: [id number]
--- NOTE | 2025-01-15 12:00 | RAD_ITS ---
EXAM: INTRAOPERATIVE FLUOROSCOPY CLINICAL HISTORY: INTERCOSTAL BLOCK 8 9 10 COMPARISON: Right ankle radiographs from 08/18/2014 TECHNIQUE: 5 intraoperative fluoroscopy spot images are submitted for review. FINDINGS: Intraoperative fluoroscopy status post thoracic intercostal nerve block at T8, T9, T10. Total fluoroscopy time 28.5 seconds. Total radiation dose 22.07 mGy. RAD/OR-Steroid Inj/Cer Thor/2nd L IMPRESSION: Intraoperative/procedural fluoroscopy as above. Reading Location: [id number]
--- NOTE | 2025-01-15 12:00 | RAD_ITS ---
EXAM: INTRAOPERATIVE FLUOROSCOPY CLINICAL HISTORY: INTERCOSTAL BLOCK 8 9 10 COMPARISON: Right ankle radiographs from 08/18/2014 TECHNIQUE: 5 intraoperative fluoroscopy spot images are submitted for review. FINDINGS: Intraoperative fluoroscopy status post thoracic intercostal nerve block at T8, T9, T10. Total fluoroscopy time 28.5 seconds. Total radiation dose 22.07 mGy. RAD/Thoracic Spine 2 Views IMPRESSION: Intraoperative/procedural fluoroscopy as above. Reading Location: [id number]
--- NOTE | 2025-01-15 15:05 | PRE.ANES_ITS ---
ASA Classification* ASA Classification ASA Classification: 3 Assessment & Plan Anesthesia* Anesthesia Assessment Anesthesia Assessment: Discussed sedation and/or anesthesia options, risks, benefits, and alternatives with patient/parents/legal guardian/POA. Questions invited. The patient/parents/legal guardian/POA seems to understand and agrees to proceed with anesthesia plan. Reviewed the physical assessment, medical history, allergy history and patient home medications list prior to surgery/procedure/anesthetic and documented any changes. Performed airway and anesthesia risk assessments. Anesthesia Type Anesthesia Type: MAC History Source History Obtained from:: Patient and Chart Anesthesia Focused Assessment* Temperature: 97.9 F Pulse Rate: 92 Blood Pressure: 130/84 Respiratory Rate: 15 Pulse Ox: 94 Fraction of Inspired Oxygen (FIO2): 21 Airway Assessment Mouth opens: >3 cm Mallampati Score: III Labs Anesthesia Preop lab: CBC WBC 5.8 K/mm3 (4.4-11.0) 01/11/25 12:36 01/11/25 RBC 3.83 M/mm3 (4.6-6.2) L 01/11/25 12:36 01/11/25 Hgb 14.3 g/dL (13.0-16.5) 01/11/25 12:36 01/11/25 Hct 41.3 % (40-54) 01/11/25 12:36 01/11/25 Plt Count 114 K/mm3 (150-450) L 01/11/25 12:36 01/11/25 CHEMISTRY Potassium 4.0 mmol/L (3.3-5.1) 01/11/25 12:36 01/11/25 Sodium 140 mmol/L (133-145) 01/11/25 12:36 01/11/25 Magnesium 2.3 mg/dL (1.5-2.2) H 01/11/25 12:36 01/11/25 Phosphorus 3.5 mg/dL (2.7-4.5) 01/11/25 12:36 01/11/25 BUN 36 mg/dL (4-19) H 01/11/25 12:36 01/11/25 Creatinine 1.24 mg/dL (0.70-1.20) H 01/11/25 12:36 Glucose 116 mg/dL (70-99) H 01/11/25 12:36 01/11/25 TSH 1.960 uIU/mL (0.300-4.200) 11/13/24 14:44 05/ COAG PT 14.5 SECONDS (11.7-14.9) 01/20/24 10:50 Pre-Assessment Diagnosis/Proposed Procedure Planned Operative Procedure(s): Intercostal blocks for rib fracture. Anesthesia History Anesthesia History - human resources leader: Anesthesia History - human resources leader Hx Hospitalization No 04/01/20 09:38 Any Problems With Anesthesia Cholinesterase deficiency You/Your Family Experience No 03/06/20 15:14 fever (hyperthermia) with Relationship Recent Exposure to Contagious Disease Does patient have nerve stimulator Patient instructed to have device shut off --Does patient have Pacemaker or ICD? When Was Last Pacemaker Check QUESTION #4 FULL TEXT: You/Your Family Experience fever (hyperthermia) with Anesthesia Last Oral Intake Last Oral intake: Last Oral Intake NPO since Meds taken in AM with sips of water? Meds patient instructed to take am of surgery PONV PONV - human resources leader: PONV - human resources leader Female HX of Motion Sickness HX of N/V After Surgery Non-Smoker Duration of Surgery greater than 60 minutes Number of Risk Factors PONV Score Height & Weight Height & Weight: Anesthesia: Height & Weight Height 5 ft 9 in 01/11/25 15:21 Weight: 112.548 kg 01/11/25 15:21 Body Mass Index (BMI) 36.6 01/11/25 10:36 Respiratory Assessment Respiratory Assessment - human resources leader: Respiratory Tract Infection Hx - human resources leader Hx Respiratory Tract Infection STOP Sleep Apnea STOP Sleep Apnea - human resources leader: STOP Sleep Apnea - human resources leader Hx Hypertension No 01/12/25 07:43 Hx Sleep Apnea Yes 01/11/25 10:58 CPAP No: unable to tolerate cpap 01/11/25 10:58 machine BIPAP No 01/11/25 10:58 Do you snore loudly (louder than talking or can be heard Do you often feel tired/ fatigued/ sleepy during daytime? Has anyone observed you stop breathing during sleep? STOP Results Positive 01/11/25 10:58 QUESTION #5 FULL TEXT : Do you snore loudly (louder than talking or can be heard through closed doors)? 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 Specify any problems Hx of Preganancy in last 3 N/A 01/11/25 10:58 Months Nurse Filling Out Transfusion JCOULTER 01/11/25 10:58 & Questions: Date: 01/11/25 01/11/25 10:58 Time: 10:59 01/11/25 10:58 Patient unable to answer at this time (ie. confused, unrespo /Reproduction History /Reproductive History - human resources leader: /Reproductive Hx- human resources leader Hx Now Gestational Age (in weeks): EDC: Hx Hx Para Hx Section SAB Active Medications Active Medications: Current Medications Generic Name Dose Route Start Last Admin Trade Name Freq PRN Reason Stop Dose Admin Acetaminophen 1,000 mg 01/11/25 14:00 01/15/25 05:22 Acetaminophen 500 Mg Tablet PO 1,000 mg Q8 IRENA Administration Aspirin 81 mg 01/12/25 08:00 01/15/25 07:54 Aspirin E.C. 81 Mg Tablet PO 81 mg BREAKFAST IRENA Administration Bisacodyl 10 mg 01/11/25 10:49 01/13/25 06:17 Bisacodyl 10 Mg Suppository RC 10 mg X1 PRN Administration Constipation Calamine/Phenol 1 applic 01/11/25 22:00 01/15/25 07:59 Menthol/Lanolin/Calamine/Znox 113 Gm Tube TOPICAL 1 applic BID IRENA Administration Protocol Celecoxib 200 mg 01/12/25 10:00 01/15/25 07:54 Celecoxib 200 Mg Capsule PO 200 mg DAILY IRENA Administration Enoxaparin Sodium 40 mg 01/12/25 06:00 01/14/25 18:38 Enoxaparin 40 Mg/0.4 Ml Syringe SC Not Given DAILY@0600 IRENA Furosemide 40 mg 01/12/25 10:00 01/14/25 08:18 Furosemide 40 Mg Tablet PO Not Given DAILY [facility] Protocol Hydrocortisone Acetate 25 mg 01/12/25 11:05 Hydrocortisone 25 Mg Suppository RC BID PRN PRN HEMORRHOIDS Lactated Ringer's 1,000 mls @ 15 mls/hr 01/15/25 15:00 IV .Q48H IRENA Latanoprost 1 drp 01/11/25 22:00 01/14/25 21:28 Latanoprost 0.005% 1 Bottle OPHTHALMIC 1 drp QHS [facility] Administration Lidocaine 3 patch 01/14/25 22:00 01/14/25 21:31 Lidocaine 5% Patch TOPICAL 3 patch HS [facility] Administration Protocol Magnesium Hydroxide 30 ml 01/11/25 10:49 01/12/25 12:02 Magnesium Hydroxide 30 Ml Udc PO 30 ml X1 PRN Administration Constipation Multi-Ingredient Cream 1 applic 01/14/25 22:00 01/14/25 21:30 Petrolatum 33% Tube TOPICAL 1 applic QHS [facility] Administration Protocol Nitroglycerin 0.4 mg 01/11/25 10:49 Nitroglycerin (Inpatient Use) 0.4 Mg Tab.Subl SL Q5M PRN Chest Pain Ondansetron HCl 4 mg 01/14/25 15:01 01/15/25 09:50 Ondansetron Odt 4 Mg Tablet PO 4 mg Q6H PRN Administration NAUSEA/VOMITING Oxycodone HCl 5 mg 01/12/25 14:00 01/15/25 09:50 Oxycodone 5 Mg Tablet PO 5 mg 0600,1000,1400,1800 [facility] Administration Oxycodone HCl 10 mg 01/12/25 22:00 01/14/25 21:29 Oxycodone 5 Mg Tablet PO 10 mg QHS [facility] Administration Oxycodone HCl 0 mg 01/12/25 11:22 01/14/25 02:00 Oxycodone 5 Mg Tablet PO 5 mg Q4H PRN PRN Administration pain 5-10 Pantoprazole Sodium 40 mg 01/12/25 10:00 01/15/25 07:54 Pantoprazole Sodium 40 Mg Tablet PO 40 mg DAILY IRENA Administration Polyethylene Glycol 17 gm 01/12/25 10:50 01/15/25 07:54 Polyethylene Glycol 3350 17 Gm Packet PO 17 gm BID IRENA Administration Potassium Chloride 20 meq 01/12/25 08:00 01/15/25 07:54 Potassium Chloride Oral Tablet 20 Meq PO 20 meq DAILYCM IRENA Administration Ranolazine 1,000 mg 01/11/25 22:00 01/15/25 07:54 Ranolazine 500 Mg Tablet PO 1,000 mg Q12 IRENA Administration Saliva Substitute 15 ml 01/15/25 10:06 Saliva Substitute 237 Ml Bottle MUCOUS MEM 5X/DAY PRN DRY MOUTH Senna/Docusate Sodium 2 tablet 01/11/25 22:00 01/15/25 07:56 Senna/Docusate Sodium 1 Tablet PO 2 tablet BID IRENA Administration Sodium Chloride 10 - 40 ml 01/11/25 10:56 0.9% Saline Lock 10 Ml Syringe IV UD PRN SALINE FLUSH Sodium Chloride 10 - 40 ml 01/15/25 12:50 0.9% Saline Lock 10 Ml Syringe IV UD PRN SALINE FLUSH Tamsulosin HCl 0.4 mg 01/12/25 08:30 01/15/25 07:54 Tamsulosin Hcl 0.4 Mg Capsule PO 0.4 mg DAILY@0830 IRENA Administration Tizanidine HCl 4 mg 01/11/25 14:00 01/15/25 05:22 Tizanidine Hcl 2 Mg Tablet PO 4 mg Q8H IRENA Administration PFSH Medical History (Updated 01/15/25 @ 10:[address] Mallory Baum, DO) Thrombocytopenia Hemorrhoids Venous insufficiency (chronic) (peripheral) Class II obesity Chronic constipation Chronic renal failure, stage 3a Presbycusis of both ears Pulmonary hypertension (HFpEF) heart failure with preserved ejection fraction Dyslipidemia COVID-19 Aortic valve stenosis, nonrheumatic Coronary artery disease Hypokalemia Gastroesophageal reflux disease Benign prostate hyperplasia Debility Weakness Pressure injury of left buttock, stage 1 Stenosis, spinal, lumbar Neck pain Segmental and somatic dysfunction of thoracic region Segmental and somatic dysfunction of pelvic region Segmental and somatic dysfunction of lumbar region Segmental and somatic dysfunction of cervical region Degenerative disc disease, cervical Sleep apnea, obstructive Nonrheumatic aortic (valve) insufficiency Pure hypercholesterolemia Essential hypertension Neuropathic pain Hypokalemia GERD (gastroesophageal reflux disease) BPH (benign prostatic hyperplasia) Left trigger finger Left carpal tunnel syndrome Benign paroxysmal positional vertigo Fall Debility Laceration of head Dyspnea on exertion Prinzmetal angina CAD (coronary artery disease) Malignant pericardial effusion Atrial flutter Precordial chest pain History of percutaneous transluminal coronary angioplasty Abnormal result of cardiovascular function study, unspecified Pain in left shoulder Atherosclerosis of coronary artery bypass graft(s), unspecified, with other forms of angina pectoris Intermittent claudication Home Medications ?Medication ?Instructions ?Recorded ?Last Taken ?Type tamsulosin 0.4 mg capsule 0.4 mg PO DAILY URINE FLOW 0 03/06/16 01/19/24 History aspirin 81 mg tablet,delayed 81 mg PO DAILY heart heal th 07/04/18 01/19/24 History release (Marisela Low Dose Aspirin) omeprazole 40 mg capsule,delayed 40 mg PO DAILY acid r eflux 07/04/18 01/19/24 History release potassium chloride 20 mEq 20 meq PO DAILY supplement 0 07/04/18 01/19/24 History tablet,extended release multivitamin 1 tab PO DAILY 04/15/2212/26 History furosemide 40 mg tablet 40 mg PO DAILY edema 3 01/19/24 History nitroglycerin 0.4 mg sublingual 0.4 mg sublingual Q5-1 5M PRN Chest 07/17/24 Unknown Rx tablet Pain #25 tabs ranolazine 1,000 mg 1,000 mg PO Q12H Heart 07/17 Unknown History tablet,extended release,12 hr hydrocodone-acetaminophen 5-325mg 1 tab PO Q6H PRN PRN Pain 3 days 01/10/25 01/11/25 Rx 5mg-325mg #10 TABLETS latanoprost 0.005 % eye drops 1 drp ophthalmic (eye) Q HS eye 01/11/25 Unknown History health Allergy/AdvReac Type Severity Reaction Status Date / Time tramadol (From Ultram) AdvReac Other Verified 01/10/25 10:15 Family History Father CAD (coronary artery disease) CHF (congestive heart failure) Mother Heart disease Brother Diabetes Cancer Hx of CABG CAD (coronary artery disease) Sister COPD (chronic obstructive pulmonary disease) Diabetes Surgical History (Updated 01/11/25 @ 13:[address] 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 Mallory Baum, ) household members: none housing: other details: lives in a converted garage at his son's house. number of children: 2 current occupational status: retired Smoking Status: Never smoker alcohol intake: never substance use type: does not use caffeine: No what type of physical activity do you participate in: none seatbelt use: always do you feel safe at home: Yes Homelessness:: Sheltered Review of Systems (Anesthesia) ROS Narrative System reviewed and no additional complaints, except as documented.
--- NOTE | 2025-01-15 15:14 | WOUNDNOTE ---
Was consulted to see patient for a deep tissue pressure injury to the buttock. pt is currently off unit for back injection. will assess in am.
[2025-01-15] MEDS: Lactated Ringers 1,000 ML 15 ML IV (15:19)
--- NOTE | 2025-01-15 17:00 | PCM.POST.ANE ---
Anesthesia: Postop Eval I Current Vital Signs Temperature: 98 F Pulse Rate: 68 Blood Pressure: 141/75 Respiratory Rate: 16 Pulse Ox: 98 Oxygen Delivery Method: Room Air Assessment Airway patent: Yes Spontaneous unlabored respirations: Yes Mental status: Awake and Calm nausea: No Vomiting: No Anesthesia Complication: No Fluid Hydration Crystalloid volume administer (ml): 400 Total IV fluid infused: 400 Progress Note Anesthesia document: Postop Eval 1 completed: Yes
[2025-01-15] MEDS: Petrolatum 33% Tube 1 APPLIC TOPICAL (21:17)
[2025-01-15] MEDS: Lidocaine 5% Patch 3 PATCH TOPICAL (21:17)
[2025-01-15] MEDS: Latanoprost 0.005% 1 Bottle 1 DRP OPHTHALMIC (21:18)
[2025-01-15] MEDS: 0.9% Saline Lock 10 ML Syringe IV (21:23)
[2025-01-16 05:44] VITALS: BMI 37.5
[2025-01-16 06:00] VITALS: BP 161/77; PULSE 74; RESP 15; TEMP 36.4; O2SAT 95
--- NOTE | 2025-01-16 08:43 | WOUNDNOTE ---
wound photo: buttocks
[2025-01-16] MEDS: Polyethylene Glycol 3350 17 GM PACKET PO (09:04)
[2025-01-16] MEDS: Senna/Docusate Sodium 1 Tablet 2 TABLET PO ×2 (09:04→20:48)
[2025-01-16] MEDS: Potassium Chloride Oral Tablet 20 MEQ PO (09:04)
[2025-01-16] MEDS: Aspirin E.C. 81 MG Tablet PO (09:04)
[2025-01-16] MEDS: 0.9% Saline Lock 10 ML Syringe IV (09:11)
--- NOTE | 2025-01-16 11:59 | PN_ITS ---
Subjective Subjective Afebrile Blood pressure is a little high this morning at 161/77 however this is an outlier and generally it is adequately controlled. Maintaining appropriate oxygen saturation on room air 3 BM's yesterday and 2 today. Denies abd pain. Eating 75-100% of all his meals. Oral fluid intake yesterday was 1530. Tells me that his pain in the right ribs is much better today. He still has soreness and we once again told him that the goal is not to have the pain go totally away but, to have it be controlled to the point where he is able to do therapy, sleep well at night and be tolerable. Denies cough today and also denies SOB. Has been using the IS. Still having occasional nausea related to Oxycodone. ALert, NAD, sitting in the recliner at the bedside. No grimacing. Lungs - few coarse crackles in the bases initially but, cleared completely after a few deep breaths. HRRR, no gallop Has compressions stockings on today No calf pain. Objective Data Objective Data Vital Signs: Vital Signs Temp Pulse Resp BP Pulse Ox O2 Del Method FiO2 97.5 F L 74 15 161/77 H 95 Room Air 21 01/16/25 06:00 01/16/25 06:00 01/16/25 06:00 01/16/25 06:00 01/16/25 06:00 01/16/25 06:00 01/15/25 15:10 Oxygen Delivery Method Room Air Weight: 253 lb 4.978 oz Body Mass Index (BMI) 37.5 Intake & Output: Intake and Output for Last 24 Hours 01/14/25 01/15/25 01/16/25 23:59 23:59 23:59 Intake Total 1740 / 1740 1530 / 1530 879 / 879 Output Total 1200 / 1200 1000 / 1000 600 / 600 Balance 540 / 540 530 / 530 279 / 279 Lab / Micro Data 01/11/25 12:36 01/11/25 12:36 Micro: Microbiology 01/12/25 08:40 Stool Stool Occult Blood (REUBEN) - Final Occult Blood Positive Radiography Diagnostic Testing: Radiology Impression Therapeutic Steroid Injection 01/15/25 12:00 IMPRESSION: Intraoperative/procedural fluoroscopy as above. Reading Location: [facility] Therapeutic Steroid Injection 01/15/25 12:00 IMPRESSION: Intraoperative/procedural fluoroscopy as above. Reading Location: [id number] Therapeutic Steroid Injection 01/15/25 12:00 IMPRESSION: Intraoperative/procedural fluoroscopy as above. Reading Location: [facility] Thoracic Spine X-Ray 01/15/25 12:00 IMPRESSION: Intraoperative/procedural fluoroscopy as above. Reading Location: [facility] Social Homelessness:: Sheltered Assessment & Plan Assessment/Plan (1) Physical debility: (2) Fall: QUALIFIERS: Encounter type: subsequent encounter Qualified Code(s): W19.XXXD - Unspecified fall, subsequent encounter (3) Multiple rib fractures: QUALIFIERS: Encounter type: subsequent encounter Fracture type: c losed Laterality: bilateral Qualified Code(s): S22.43XD - Multiple fractures of ribs, bilateral, subsequent encounter for fracture with routine healing (4) Uncontrolled pain: (5) Chronic renal failure, stage 3a: (6) Chronic constipation: (7) (HFpEF) heart failure with preserved ejection fraction: QUALIFIERS: Heart failure chronicity: chronic Qualified Code(s): I50.32 - Chronic diastolic (congestive) heart failure PLAN: vs leg edema due to chronic venous insufficiency + pulmonary HTN. (8) Pulmonary hypertension: PLAN: The right ventricular systolic pressure in July 2023 was estimated at 36 which is only mild pulmonary hypertension. (9) AF (paroxysmal atrial fibrillation): PLAN: Not on an anticoagulant. Has had ablations in the past....... 2004 and 2006 at [facility]. Twelve-lead EKG on 01/20/2024 at the cardiology office showed normal sinus rhythm with a first-degree AV block at a rate of 75. He has declined anticoagulation in the past. He is not on a rate limiting medication. (10) Aortic valve stenosis, nonrheumatic: PLAN: moderate on ECHO in 2023...... valve area was 1 cm?. (11) GERD (gastroesophageal reflux disease): QUALIFIERS: Esophagitis presence: without esophagitis Qualified Code(s): K21.9 - Gastro-esophageal reflux disease without esophagitis (12) Class II obesity: (13) Venous insufficiency (chronic) (peripheral): (14) Heme positive stool: (15) Hemorrhoids: QUALIFIERS: Hemorrhoid type: unspecified Qualified Code(s): K64.9 - Unspecified hemorrhoids (16) Thrombocytopenia: (17) Essential hypertension: PLAN: Plan 1. Continue therapy 2. Discontinue lidocaine patches because they have not been helpful 3. Start to taper oxycodone since pain control is better after the intercostal block 4. Decrease MiraLAX to once daily 5. Lab ordered for the a.m. 6. BP's are often mildly elevated. He is not on an antihypertensive. He has moderate . Will add a low dose of an MARIO. Charges/Coding Visit Charges Inpatient E&M: 31706 Subs Hosp L1
[2025-01-16 18:00] VITALS: BP 116/52; PULSE 62; RESP 18; TEMP 36.6; O2SAT 98
--- NOTE | 2025-01-16 20:06 | POSTOPAN2_ITS ---
Anesthesia Postop Eval I Sum Postop Eval Completion status Anesthesia document: Postop Eval 1 completed: Yes Anesthesia Postop Eval I Summary Anesthesia Postop Eval I Summary: Anesthesia Postop Eval I: Assessment Summary Airway patent Yes 01/15/25 17:04 SAWMILL MOULDER OPERATOR.[email or web address] Spontaneous unlabored Yes 01/15/25 17:04 SAWMILL MOULDER OPERATOR.SHOF respirations Mental status Awake,Calm 01/15/25 17:04 SAWMILL MOULDER OPERATOR.SHOF nausea No 01/15/25 17:04 SAWMILL MOULDER OPERATOR.SHOF Vomiting No 01/15/25 17:04 SAWMILL MOULDER OPERATOR.SHOF Anesthesia Postop Eval I: Fluid Summary Crystalloid volume administer 400 01/15/25 17:04 SAWMILL MOULDER OPERATOR.SHOF (ml) Colloids volume administered ( ml) Blood Product volume administered (ml) Total IV fluid infused 400 01/15/25 17:04 SAWMILL MOULDER OPERATOR.SHOF Anesthesia Postop Eval I: Summary Notes Anesthesia Complication No 01/15/25 17:04 SAWMILL MOULDER OPERATOR.SHOF Anesthesia Complication Comment: Post-operative progress note Anesthesia: Postop Eval II Evaluation Mental status: Awake and Calm Pain Level: 2 nausea: No Vomiting: No Complications Anesthesia Complication: No
--- NOTE | 2025-01-16 20:06 | PCM.POSTANE2 ---
Anesthesia Postop Eval I Sum Postop Eval Completion status Anesthesia document: Postop Eval 1 completed: Yes Anesthesia Postop Eval I Summary Anesthesia Postop Eval I Summary: Anesthesia Postop Eval I: Assessment Summary Airway patent Yes 01/15/25 17:04 [email or web address] Spontaneous unlabored Yes 01/15/25 17:04 COSTUME [email or web address].SHOF respirations Mental status Awake,Calm 01/15/25 17:04 COSTUME [email or web address] nausea No 01/15/25 17:04 COSTUME DRAPER.SHOF Vomiting No 01/15/25 17:04 COSTUME [email or web address].SHOF Anesthesia Postop Eval I: Fluid Summary Crystalloid volume administer 400 01/15/25 17:04 COSTUME [email or web address].SHOF (ml) Colloids volume administered ( ml) Blood Product volume administered (ml) Total IV fluid infused 400 01/15/25 17:04 COSTUME [email or web address].SHOF Anesthesia Postop Eval I: Summary Notes Anesthesia Complication No 01/15/25 17:04 COSTUME DRAPER.SHOF Anesthesia Complication Comment: Post-operative progress note Anesthesia: Postop Eval II Evaluation Mental status: Awake and Calm Pain Level: 2 nausea: No Vomiting: No Complications Anesthesia Complication: No
[2025-01-16 20:30] VITALS: PULSE 93; RESP 16; O2SAT 99
[2025-01-16] MEDS: Petrolatum 33% Tube 1 APPLIC TOPICAL (20:47)
[2025-01-16] MEDS: Latanoprost 0.005% 1 Bottle 1 DRP OPHTHALMIC (20:49)
[2025-01-17 06:00] VITALS: BP 109/62; PULSE 58; RESP 17; TEMP 37.2; O2SAT 95
[2025-01-17 06:16] LABS: Hematocrit 32.2 % (40-54); Hemoglobin 11.5 g/dL (13.0-16.5); Mean Corp Hgb Conc 35.7 g/dL (32-36); Mean Corpuscular Volume 106.3 fL (80-94); Mean Platelet Vol. 12.3 fl (6.2-12.0); Platelet Count 124 K/mm3 (150-450); RBC Distribution Width CV 14.3 % (11.6-14.6); RBC Distribution Width SD 55.9 fl (35.1-43.9); Red Blood Count 3.03 M/mm3 (4.6-6.2); White Blood Count 5.7 K/mm3 (4.4-11.0)
[2025-01-17 06:24] LABS: Anion Gap 9 (5-15); BUN 26 mg/dL (4-19); BUN/Creat Ratio 20.6 RATIO (10-20); Calcium,Total 9.0 mg/dL (7.6-11.0); Carbon Dioxide 25.2 mmol/L (21.0-32.0); Chloride 105 mmol/L (98-108); Estimated Creatinine Clearance 51.63 ml/min (50-250); Glucose 142 mg/dL (70-99); Potassium 4.5 mmol/L (3.3-5.1)
[2025-01-17] MEDS: Potassium Chloride Oral Tablet 20 MEQ PO (07:51)
[2025-01-17] MEDS: Aspirin E.C. 81 MG Tablet PO (07:51)
[2025-01-17 18:00] VITALS: BP 153/86; PULSE 86; RESP 17; TEMP 37.1; O2SAT 96
[2025-01-17 20:15] VITALS: PULSE 86; RESP 17; O2SAT 96
[2025-01-17] MEDS: Latanoprost 0.005% 1 Bottle 1 DRP OPHTHALMIC (20:38)
[2025-01-17] MEDS: Petrolatum 33% Tube 1 APPLIC TOPICAL (20:39)
[2025-01-18 06:00] VITALS: BP 128/62; PULSE 80; RESP 17; TEMP 37.1; O2SAT 96
[2025-01-18] MEDS: Potassium Chloride Oral Tablet 20 MEQ PO (07:56)
[2025-01-18] MEDS: Aspirin E.C. 81 MG Tablet PO (07:56)
[2025-01-18 17:33] VITALS: BP 164/81; PULSE 60; RESP 17; TEMP 36.7; O2SAT 96
[2025-01-18] MEDS: Petrolatum 33% Tube 1 APPLIC TOPICAL (21:27)
[2025-01-18] MEDS: Latanoprost 0.005% 1 Bottle 1 DRP OPHTHALMIC (21:28)
[2025-01-19 05:29] VITALS: BP 156/89; PULSE 68; RESP 18; TEMP 37.1; O2SAT 95
[2025-01-19] MEDS: Aspirin E.C. 81 MG Tablet PO (09:04)
[2025-01-19] MEDS: Potassium Chloride Oral Tablet 20 MEQ PO (09:05)
[2025-01-19] MEDS: Senna/Docusate Sodium 1 Tablet 2 TABLET PO ×2 (09:05→20:46)
[2025-01-19 09:09] VITALS: BP 148/71; PULSE 61
[2025-01-19 17:43] VITALS: BP 119/69; PULSE 68; RESP 16; TEMP 36.3; O2SAT 96
[2025-01-19] MEDS: Latanoprost 0.005% 1 Bottle 1 DRP OPHTHALMIC (20:45)
[2025-01-19] MEDS: Petrolatum 33% Tube 1 APPLIC TOPICAL (20:48)
[2025-01-20 06:00] VITALS: BP 145/74; PULSE 67; RESP 16; TEMP 36.7; O2SAT 94
[2025-01-20 08:30] VITALS: BP 100/50; PULSE 73
[2025-01-20] MEDS: Aspirin E.C. 81 MG Tablet PO (08:34)
[2025-01-20] MEDS: Potassium Chloride Oral Tablet 20 MEQ PO (08:35)
[2025-01-20] MEDS: Polyethylene Glycol 3350 17 GM PACKET PO (08:36)
[2025-01-20] MEDS: Senna/Docusate Sodium 1 Tablet 2 TABLET PO (08:37)
[2025-01-20 17:44] VITALS: BP 162/89; PULSE 62; RESP 17; TEMP 37; O2SAT 96
[2025-01-20 20:56] LABS: Color, Urine Yellow (Yellow); Glucose, Dipstick Normal (Normal); Ketone-Dipstick Negative (Negative); Leukocyte Esterase-Dipstick Negative /ul (Negative); Mucous, Urine 0 SEEN /hpf (<or=2+); Nitrite-Dipstick Negative (Negative); Occult Blood-Urine Negative /ul (Negative); Protein-Dipstick Negative (Negative); Red Blood Cells-Urine 0 SEEN /hpf (0-5); Specific Gravity, Urine 1.010 (1.002-1.030); Squamous Epithelial Cells - UA 0 SEEN /hpf (0-5); Urine Bilirubin Dipstick Negative (Negative)
[2025-01-20] MEDS: Latanoprost 0.005% 1 Bottle 1 DRP OPHTHALMIC (22:14)
[2025-01-20] MEDS: Petrolatum 33% Tube 1 APPLIC TOPICAL (22:15)
[2025-01-21 06:00] VITALS: BP 143/85; PULSE 67; RESP 16; TEMP 36.4; O2SAT 95
--- NOTE | 2025-01-21 07:30 | NURSING ---
pt working with OT, lost balance per OT Susannah. Fall report completed.
[2025-01-21 08:20] VITALS: BP 126/91; PULSE 94; RESP 16; TEMP 36.2; O2SAT 97
[2025-01-21] MEDS: Potassium Chloride Oral Tablet 20 MEQ PO (08:22)
[2025-01-21] MEDS: Aspirin E.C. 81 MG Tablet PO (08:22)
[2025-01-21] MEDS: Polyethylene Glycol 3350 17 GM PACKET PO (08:24)
--- NOTE | 2025-01-21 10:09 | PCM.PROGNOTE ---
Subjective Subjective Bill was seen on TEAM rounds today. Son and granddaughter were present in the room. All questions were answered to their satisfaction. - Afebrile VSS -blood pressure is not adequately controlled. The blood pressures over the past 48 hours have ranged from 100/50 to 162/89. Heart rate is ranged from 61-94. Maintaining appropriate oxygen saturation on RA Oral intake - FOOD. Good FLUIDS fair Has been incontinent of both urine and stool. Discussed with nursing - Apparently had a PVR of 500 and was straight cath'd last night. UA was sent. UA had no WBC's and no bacteria. He is taking Flomax 0.4 mg daily. He had a PVR of 400 today and he is having urinary urgency. Denies dysuria. Rare cough. Tells me that his pain is a 3 and tolerable. He is c/o dizziness....not vertigo, when he first goes from lying down in the AM to sitting up. He has had this for years and it has not changed. He is on Flomax. Orthostatics today were negative. Reviewed the THERAPY notes - had a LOB today when hurrying to get to the BR to urinate. He did not have a fall....the therapist had a hold of his gait belt. Medication list reviewed. Denies shortness of breath, substernal CP, hemoptysis, Nausea/vomiting. Objective Data Objective Data Vital Signs: Vital Signs Temp Pulse Resp BP Pulse Ox O2 Del Method FiO2 97.2 F L 94 16 126/91 H 97 Room Air 21 01/21/25 08:20 01/21/25 08:20 01/21/25 08:20 01/21/25 08:20 01/21/25 08:20 01/21/25 08:20 01/15/25 15:10 Oxygen Delivery Method Room Air Weight: 253 lb 4.978 oz Body Mass Index (BMI) 37.5 Intake & Output: Intake and Output for Last 24 Hours 01/19/25 01/20/25 01/21/25 23:59 23:59 23:59 Intake Total 1240 / 1240 1120 / 1120 920 / 920 Output Total 925 / 1125 1060 / 1060 205 / 205 Balance 315 / 115 60 / 60 715 / 715 Lab / Micro Data 01/17/25 05:39 01/17/25 05:39 Labs: Laboratory Results - last 24 hr 01/20/25 20:35: Urine Color Yellow, Urine Clarity Clear, Urine pH 6.0, Ur Specific Mary [place] 1.010, Urine Protein Negative, Urine Glucose (UA) Normal, Urine Ketones Negative, Urine Occult Blood Negative, Urine Nitrite Negative, Urine Bilirubin Negative, Urine Urobilinogen Normal, Ur Leukocyte Esterase Negative, Urine RBC 0 SEEN, Urine WBC 0 SEEN, Ur Squamous Epith Cells 0 SEEN, Urine Bacteria 0 SEEN, Urine Mucus 0 SEEN Micro: Microbiology 01/12/25 08:40 Stool Stool Occult Blood (REUBEN) - Final Occult Blood Positive Social Homelessness:: Sheltered Physical Exam Const alert, oriented x3 and no apparent distress Constitutional Narrative: Sitting at the bedside having orthostatics done when I examined him. He did not appear to be in any distress. He denied feeling lightheaded. General Appearance: cooperative HEENT Mouth: dry mucous membranes Resp Resp Narrative: few coarse crackles in the left base initially that resolved after a couple deep breaths. He is clear on the R side. Cardio regular rate and regular rhythm Cardio Narrative: Some ectopics. 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 The MM at the apex is short and high pitched. No diastolic MM. No gallop GI normal to inspection, nondistended, normoactive bowel sounds, soft to palpation and non-tender GI Narrative: No guarding with palpation. Extremity Extremity Narrative: No significant ankle edema today........RENETTA hose are in place Assessment & Plan Assessment/Plan (1) Physical debility: (2) Fall: QUALIFIERS: Encounter type: subsequent encounter Qualified Code(s): W19.XXXD - Unspecified fall, subsequent encounter (3) Multiple rib fractures: QUALIFIERS: Encounter type: subsequent encounter Fracture type: closed Laterality: bilateral Qualified Code(s): S22.43XD - Multiple fractures of ribs, bilateral, subsequent encounter for fracture with routine healing (4) Uncontrolled pain: (5) Chronic renal failure, stage 3a: (6) Chronic constipation: (7) (HFpEF) heart failure with preserved ejection fraction: QUALIFIERS: Heart failure chronicity: chronic Qualified Code(s): I50.32 - Chronic diastolic (congestive) heart failure (8) Pulmonary hypertension: (9) AF (paroxysmal atrial fibrillation): (10) Aortic valve stenosis, nonrheumatic: (11) GERD (gastroesophageal reflux disease): QUALIFIERS: Esophagitis presence: without esophagitis Qualified Code(s): K21.9 - Gastro-esophageal reflux disease without esophagitis (12) Class II obesity: (13) Venous insufficiency (chronic) (peripheral): (14) Heme positive stool: (15) Hemorrhoids: QUALIFIERS: Hemorrhoid type: unspecified Qualified Code(s): K64.9 - Unspecified hemorrhoids (16) Thrombocytopenia: (17) Essential hypertension: PLAN: Plan 1. Continue therapy 2. Check postvoid residuals after each urination for the next 48 hours......he is persistently retaining.....will put in a Don and try and decrease narcotic use. May need to increase the Flomax but, hold off to see if decreasing the narcotic helps with the urine retention because he was not retaining at admission to rehab. 3. Decrease tizanidine to 2 mg p.o. every 12 hours 4. Change the oxycodone during the day to as needed 5. Decrease the oxycodone at at bedtime to 5 mg 6. Check orthostatics today - they were negative 7. Change the MiraLAX to as needed but continue senna 2 tabs twice daily 8. BMP and CBC in a.m. 9. Hold Furosemide. I reviewed the last cardiology note and he is supposed to be taking it PRN. Ankle edema is gone now and he is wearing compression stockings. bEven though the orthostatics are negative clinically he is dehydrated. Encouraged him to increase his fluid intake. Urine retention may be due to narcotics. PVR's early in the admission were good. May need a stay in SNF at [place] from rehab.......depends on how is doing with pain when the Oxycodone is only PRN and if he will continue to retain urine. Charges/Coding Visit Charges Inpatient E&M: 91405 Subs Hosp L2
[2025-01-21 10:29] VITALS: BP 134/76; BP 139/76; BP 140/90; PULSE 62; PULSE 64; PULSE 81
--- NOTE | 2025-01-21 12:58 | CASEMGMT ---
Social Work IDT met with patient, dtr and son for Team meeting. Discussed patient's progress in PT/OT/SN/MD. Confirmed Medicare DC is 8. Discussed DC plans and risk/benefit of returning home or needing AL/SNF/SHEET ROCK APPLICATOR at home. Provided resources for private duty SHEET ROCK APPLICATOR and medical alert, SNF list and skilled HHC list within geographical area, INN with insurance, that include quality and resource data via [employer] guide. Family to discuss options and notify this worker of plan for assistance. SW will continue to follow. Juliet Orr [employer]ILL[employer] FIRST BODY CLEANER
[2025-01-21 18:00] VITALS: BP 148/83; PULSE 96; RESP 18; TEMP 36.8; O2SAT 96
[2025-01-21] MEDS: Petrolatum 33% Tube 1 APPLIC TOPICAL (20:41)
[2025-01-21] MEDS: Latanoprost 0.005% 1 Bottle 1 DRP OPHTHALMIC (20:41)
[2025-01-21] MEDS: Senna/Docusate Sodium 1 Tablet 2 TABLET PO (20:41)
[2025-01-22 05:44] LABS: Hematocrit 36.5 % (40-54); Hemoglobin 12.6 g/dL (13.0-16.5); Mean Corp Hgb Conc 34.5 g/dL (32-36); Mean Corpuscular Volume 107.0 fL (80-94); Mean Platelet Vol. 11.5 fl (6.2-12.0); Platelet Count 129 K/mm3 (150-450); RBC Distribution Width CV 14.8 % (11.6-14.6); RBC Distribution Width SD 59.0 fl (35.1-43.9); Red Blood Count 3.41 M/mm3 (4.6-6.2); White Blood Count 7.8 K/mm3 (4.4-11.0)
[2025-01-22 06:00] VITALS: BP 115/80; PULSE 64; RESP 16; TEMP 36.6; O2SAT 94
[2025-01-22 06:09] LABS: Anion Gap 11 (5-15); BUN 30 mg/dL (4-19); BUN/Creat Ratio 24.8 RATIO (10-20); Calcium,Total 9.1 mg/dL (7.6-11.0); Carbon Dioxide 24.0 mmol/L (21.0-32.0); Chloride 105 mmol/L (98-108); Estimated Creatinine Clearance 53.33 ml/min (50-250); Glucose 125 mg/dL (70-99); Potassium 4.7 mmol/L (3.3-5.1)
[2025-01-22] MEDS: Potassium Chloride Oral Tablet 20 MEQ PO (08:23)
[2025-01-22] MEDS: Senna/Docusate Sodium 1 Tablet 2 TABLET PO (08:23)
[2025-01-22] MEDS: Aspirin E.C. 81 MG Tablet PO (08:24)
--- NOTE | 2025-01-22 11:42 | PN_ITS ---
Subjective Subjective Afebrile Vital signs stable Maintaining appropriate oxygen saturation on room air Good appetite. Fair fluid intake. All lab from this morning was personally reviewed. White blood cell count is normal at 7.8. Hemoglobin is 12.6 and platelets are stable at 129,000. Sodium is 140 and the potassium is 4.7. The BUN is 30 and the creatinine is stable at 1.22 which is within his baseline. Orthostatics were negative yesterday. Denies lightheadedness today. Slept well last night. Pain is adequately controlled. Denies cough, hemoptysis, shortness of breath, nausea/vomiting/abdominal pain, calf pain. Has not taken any oxycodone today. He had 2 doses yesterday 5 mg in the a.m. and he had 5 mg at at bedtime. Will likely try a voiding trial on . urine is still hemalatha in color and he was encouraged to increase his fluid intake again........this is a daily thing. Objective Data Objective Data Vital Signs: Vital Signs Temp Pulse Resp BP Pulse Ox O2 Del Method FiO2 97.8 F 64 16 115/80 94 Room Air 21 01/22/25 06:00 01/22/25 06:00 01/22/25 06:00 01/22/25 06:00 01/22/25 06:00 01/22/25 06:00 01/15/25 15:10 Oxygen Delivery Method Room Air Weight: 253 lb 4.978 oz Body Mass Index (BMI) 37.5 Intake & Output: Intake and Output for Last 24 Hours 01/20/25 01/21/25 01/22/25 23:59 23:59 23:59 Intake Total 1120 / 1120 1160 / 1160 640 / 640 Output Total 1060 / 1060 1130 / 1555 925 / 925 Balance 60 / 60 30 / -395 -285 / -285 Lab / Micro Data 01/22/25 05:02 01/22/25 05:02 Labs: Laboratory Results - last 24 hr 01/22/25 05:02: WBC 7.8, RBC 3.41 L, Hgb 12.6 L, Hct 36.5 L, MCV 107.0 H, MCH 37.0 H, MCHC 34.5, RDW Std Deviation 59.0 H, RDW Coeff of Brigitte 14.8 H, Plt Count 129 L, MPV 11.5, Sodium 140, Potassium 4.7, Chloride 105, Carbon Dioxide 24.0, Anion Gap 11, BUN 30 H, Creatinine 1.22 H, Estim Creat Clear Calc 53.33, Est GFR (MDRD) Non-Af 57 L, BUN/Creatinine Ratio 24.8 H, Glucose 125 H, Calcium 9.1 Micro: Microbiology 01/12/25 08:40 Stool Stool Occult Blood (REUBEN) - Final Occult Blood Positive Social Homelessness:: Sheltered Physical Exam Const alert, oriented x3 and no apparent distress Resp Resp Narrative: few coarse crackles in the left base initially that resolved after a couple deep breaths. He is clear on the R side. Cardio regular rate and regular rhythm Cardio Narrative: Some ectopics. 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 The MM at the apex is short and high pitched. No diastolic MM. No gallop GI normal to inspection, nondistended, normoactive bowel sounds, soft to palpation and non-tender GI Narrative: No guarding with palpation. Extremity Extremity Narrative: No significant ankle edema today........RENETTA hose are in place Neuro CN's II-XII intact bilaterally and no focal motor deficits Psych cooperative and affect normal Appearance: appropriate Attitude: No agitated Assessment & Plan Assessment/Plan (1) Physical debility: (2) Fall: QUALIFIERS: Encounter type: subsequent encounter Qualified Code(s): W19.XXXD - Unspecified fall, subsequent encounter (3) Multiple rib fractures: QUALIFIERS: Encounter type: subsequent encounter Fracture type: c losed Laterality: bilateral Qualified Code(s): S22.43XD - Multiple fractures of ribs, bilateral, subsequent encounter for fracture with routine healing (4) Uncontrolled pain: (5) Chronic renal failure, stage 3a: (6) Chronic constipation: (7) (HFpEF) heart failure with preserved ejection fraction: QUALIFIERS: Heart failure chronicity: chronic Qualified Code(s): I50.32 - Chronic diastolic (congestive) heart failure (8) Pulmonary hypertension: (9) AF (paroxysmal atrial fibrillation): (10) Aortic valve stenosis, nonrheumatic: (11) GERD (gastroesophageal reflux disease): QUALIFIERS: Esophagitis presence: without esophagitis Qualified Code(s): K21.9 - Gastro-esophageal reflux disease without esophagitis (12) Class II obesity: (13) Venous insufficiency (chronic) (peripheral): (14) Heme positive stool: (15) Hemorrhoids: QUALIFIERS: Hemorrhoid type: unspecified Qualified Code(s): K64.9 - Unspecified hemorrhoids (16) Thrombocytopenia: (17) Essential hypertension: PLAN: Plan 1. Continue therapy 2. No changes to the drug regimen today. 3. Voiding trial on 4. May be able to DC tizanidine in the next couple days. Charges/Coding Visit Charges Inpatient E&M: 03819 Subs Hosp L1
--- NOTE | 2025-01-22 13:18 | CASEMGMT ---
Social Work SW received call from son requesting referral to TCU. SW sent referral to TCU. TCU is likely to have beds, but awaiting official confirmation. SW phoned son to update. Son appreciative. Juliet Orr CLERICAL AND ADMINISTRATIVE WORKERS OCULAR CARE TECHNOLOGIST
[2025-01-22 16:47] VITALS: BP 129/75; PULSE 64; RESP 16; TEMP 36.9; O2SAT 96
[2025-01-22 21:30] VITALS: PULSE 64; RESP 16; O2SAT 96
[2025-01-22] MEDS: Latanoprost 0.005% 1 Bottle 1 DRP OPHTHALMIC (21:31)
[2025-01-22] MEDS: Petrolatum 33% Tube 1 APPLIC TOPICAL (21:32)
[2025-01-23 06:00] VITALS: BP 127/71; PULSE 62; RESP 17; TEMP 36.2; BMI 36.7
[2025-01-23] MEDS: Aspirin E.C. 81 MG Tablet PO (07:50)
[2025-01-23] MEDS: Senna/Docusate Sodium 1 Tablet 2 TABLET PO ×2 (07:51→19:56)
[2025-01-23] MEDS: Potassium Chloride Oral Tablet 20 MEQ PO (07:51)
--- NOTE | 2025-01-23 08:15 | PN_ITS ---
Subjective Subjective Afebrile VSS - BP is better with addition of Lisinopril to the drug regimen. Maintaining appropriate oxygen saturation on RA Oral intake - FOOD good FLUIDS fluid intake was better yesterday and he had 1700 cc. Discussed with nursing - no problems that need addressed Reviewed the THERAPY notes Medication list reviewed. Has not taken any oxycodone except the at bedtime dose since 11/21/2024 in the AM. Hemoglobin A1c yesterday was normal at 5.5. Pain is adequately controlled. He had trouble falling asleep last night......he attributes this to all the sugar he consumed after supper last night. Denies lightheadedness, cephalgia, cough, nausea/vomiting, suprapubic pain. He always has complaints of soreness in several different areas of his body.......I attribute this to the fact that he is more active now than he has been in the past few years and he is going to have musculoskeletal pain because he is using muscles that he has not been using. He has been incontinent of stool today. Continent yesterday. 2 BM's yesterday and 1 today. Yesterday he had formed stool and his BM today was formed per nursing. Miralax was changed to PRN yesterday. Kenan tells me that he will be going to TCU. I reviewed the note from SW ....TCU will probably have beds. Objective Data Objective Data Vital Signs: Vital Signs Temp Pulse Resp BP Pulse Ox O2 Del Method FiO2 97.1 F L 62 17 127/71 H 96 Room Air 21 01/23/25 06:00 01/23/25 06:00 01/23/25 06:00 01/23/25 06:00 01/22/25 21:30 01/23/25 06:00 01/15/25 15:10 Oxygen Delivery Method Room Air Weight: 248 lb 14.43 oz Body Mass Index (BMI) 36.7 Intake & Output: Intake and Output for Last 24 Hours 01/21/25 01/22/25 01/23/25 23:59 23:59 23:59 Intake Total 1160 / 1160 1700 / 1700 Output Total 1130 / 1555 1925 / 1925 800 / 800 Balance 30 / -395 -225 / -225 -800 / -800 Lab / Micro Data 01/22/25 05:02 01/22/25 05:02 Labs: Laboratory Results - last 24 hr 01/22/25 05:02: Hemoglobin A1c 5.5 Micro: Microbiology 01/12/25 08:40 Stool Stool Occult Blood (REUBEN) - Final Occult Blood Positive Social Homelessness:: Sheltered Physical Exam Const alert, oriented x3 and no apparent distress Resp Resp Narrative: CTA after a few deep breaths. Cardio regular rate and regular rhythm Cardio Narrative: Some ectopics. 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 The MM at the apex is short and high pitched. No diastolic MM. No gallop GI normal to inspection, nondistended, normoactive bowel sounds, soft to palpation and non-tender GI Narrative: No guarding with palpation. Extremity Extremity Narrative: No significant ankle edema today........RENETTA hose are in place Psych cooperative and affect normal Appearance: appropriate Attitude: No agitated Assessment & Plan Assessment/Plan (1) Physical debility: (2) Fall: QUALIFIERS: Encounter type: subsequent encounter Qualified Code(s): W19.XXXD - Unspecified fall, subsequent encounter (3) Multiple rib fractures: QUALIFIERS: Encounter type: subsequent encounter Fracture type: c losed Laterality: bilateral Qualified Code(s): S22.43XD - Multiple fractures of ribs, bilateral, subsequent encounter for fracture with routine healing (4) Uncontrolled pain: PLAN: 01/23/25 Pain is well controlled. the rib blocks were very effective in getting the pain under control. Oxycodone during the day was made PRN 2 days ago and he has not asked for it. He has been getting 5 mg at HS but, that was changed to PRN today. Fizanidine 2 mg BID has also changed to PRN. Continue scheduled Tylenol and Celebrex. continue the PRN Oxycodone 5 mg. (5) Chronic renal failure, stage 3a: (6) Chronic constipation: (7) (HFpEF) heart failure with preserved ejection fraction: QUALIFIERS: Heart failure chronicity: chronic Qualified Code(s): I50.32 - Chronic diastolic (congestive) heart failure (8) Pulmonary hypertension: (9) AF (paroxysmal atrial fibrillation): (10) Aortic valve stenosis, nonrheumatic: (11) Venous insufficiency (chronic) (peripheral): PLAN: Controlled with RENETTA hose. Had to hold Lasix due to dehydration, poor fluid intake chronically. I suspect the LE edema is actually due to venous insufficiency and not HF. He sits most of the day with his legs dependent and there is no edema since he has been wearing the RENETTA hose (Lsix has been on hold). Wt is stable, despite all the carbs he consumes. (12) Heme positive stool: PLAN: HGB is stable. He is on {Protonix. (13) Thrombocytopenia: PLAN: Etiology? ITP? Can be evaluated as an OP. (14) Essential hypertension: PLAN: Started on Lisinopril 2.5 mg daily and B{P looks better. No cough. (15) Urine retention: PLAN: Suspect secondary to narcotics +/- Tizanidine. PLAN: Plan 1. Continue therapy 2. Transferred to TCU at discharge for additional therapy prior to returning home. 3. Voiding trial in the a.m. 4. Continue to hold Lasix. He was supposed to be taking Lasix PRN at home but, was taking it daily. Will restart at [place] and have him take it PRN for an increase in weight of 5 lbs within a week. We discussed today that his leg edema is controlled without Lasix now........with elevation and compression. When he is dehydrated he is more fatigued and also lightheaded........has not been lightheaded since the Lasix was discontinued. Charges/Coding Visit Charges Inpatient E&M: 24134 Subs Hosp L1
--- NOTE | 2025-01-23 14:26 | TREXTCAR_ITS ---
Diet Diet Order/Speech Therapy: INPATIENT Hospital Diet / Speech Therapy Order(s) 01/11/25 10:36 Diet: Regular - General Food consistency:: Regular Liquid Consistency:: Regular/Thin Type of Dietary Supplement:: Ensure Plus High Protein Diet Comments: 120ml chocolate EPHP with breakfast and dinner Routine Orders/Code Status Enema Type: Fleetz Enema Frequency: Daily PRN Suppository Type: Dulcolax 10mg Suppository Frequency: Daily PRN Code Status: Full Code DC O2, CPAP, BIPAP needs Home O2 Discharge instructions: No Wound(s) Right elbow: Wound Type: scab Left inner buttock: Wound Type: Pressure Injury MID BACK: Wound Type: Surgical Incision Therapies Weight Bearing: Full weight bearing Physical Therapy: Eval and Treat Occupational Therapy: Eval and Treat Problem/Diagnosis (1) Physical debility: Status: Acute Code(s): R53.81 - Other malaise Plan: Due to a fall resulting in multiple rib fractures. Had intercoastal blocks done by Dr. Mantilla for pain control on 01/16/25 that were very effective. Oxycodone and tizanidine are now PRN only. Will continue celebrex 200 mg daily and Tylenol 1 GM Q 8H. (2) Fall: Status: Inactive Code(s): W19.XXXA - Unspecified fall, initial encounter (3) Multiple rib fractures: Status: Acute Code(s): S22.49XA - Multiple fractures of ribs, unspecified side, initial encounter for closed fracture Plan: Ribs 8, 9 and 10 on the right and the left 10th rib. (4) Uncontrolled pain: Status: Resolved Code(s): R52 - Pain, unspecified Plan: 01/23/25 Pain is well controlled. the rib blocks were very effective in getting the pain under control. Oxycodone during the day was made PRN 2 days ago and he has not asked for it. He has been getting 5 mg at HS but, that was changed to PRN today. Fizanidine 2 mg BID has also changed to PRN. Continue scheduled Tylenol and Celebrex. continue the PRN Oxycodone 5 mg. (5) Chronic renal failure, stage 3a: Status: Chronic Code(s): N18.31 - Chronic kidney disease, stage 3a (6) Chronic constipation: Status: Chronic Code(s): K59.09 - Other constipation Plan: This has been a chronic problem. He was not taking any stool softeners at home but, was taking laxatives frequently. His fluid intake is chronically poor and he is on a diuretic for ankle edema which is more likely than not due to venous insufficiency related to obesity and sedentary lifestyle. He also has pulmonary HTN. He sits in a recliner most of the day and does not elevate his legs. Lasix was held on rehab and the edema is controlled with RENETTA hose. We have educated him on the importance of elevating his legs and wearing the compression stockings......he has these at home and his son is always encouraging him to wear them. I recommeded he take Lasix ONLY if his wt increases by 5 lbs or greater in a week. (7) (HFpEF) heart failure with preserved ejection fraction: Status: Chronic Code(s): I50.30 - Unspecified diastolic (congestive) heart failure (8) Pulmonary hypertension: Status: Chronic Code(s): I27.20 - Pulmonary hypertension, unspecified Plan: Systolic pressure estimated at 45 on echocardiogram in December 2023. He had an overnight trending pulse ox while on acute rehab and it showed that 2.29% of the time he is pulse ox ranged from 85 to 89%. This amounted to 13 minutes and 40 seconds. There were no desaturation events greater than 60 seconds. STOP BANG score is 6 for age>50, HTN, male sex, neck circumference > 40cm, daytime somnolence and BMI > 35. He lives alone and does not know if he stops breathing at night or if he snores. Would consider a sleep study going forward to evaluate him for PARDEEP as the etiology of Pulmonary HTN. (9) AF (paroxysmal atrial fibrillation): Status: Chronic Code(s): I48.0 - Paroxysmal atrial fibrillation (10) Aortic valve stenosis, nonrheumatic: Status: Chronic Code(s): I35.0 - Nonrheumatic aortic (valve) stenosis Plan: Moderate on echocardiogram in December 2023 (11) Venous insufficiency (chronic) (peripheral): Status: Chronic Code(s): I87.2 - Venous insufficiency (chronic) (peripheral) Plan: Controlled with RENETTA hose. Had to hold Lasix due to dehydration, poor fluid intake chronically. I suspect the LE edema is actually due to venous insufficiency/pulmonary HTN and not CHF. He sits most of the day with his legs dependent and there is no edema since he has been wearing the RENETTA hose (Lasix has been on hold). Wt is stable, despite all the carbs he consumes. (12) Heme positive stool: Status: Acute Code(s): R19.5 - Other fecal abnormalities Plan: HGB is stable. He is on {Protonix. Comment: HGB is WNL (13) Thrombocytopenia: Status: Chronic Code(s): D69.6 - Thrombocytopenia, unspecified Plan: Etiology? ITP? Can be evaluated as an OP. Etiology? Has been stable over the past couple years and PLT's are above 100,000. (14) Essential hypertension: Status: Chronic Code(s): I10 - Essential (primary) hypertension Plan: Started on Lisinopril 2.5 mg daily and BP looks better. No cough. (15) Urine retention: Status: Acute Code(s): R33.9 - Retention of urine, unspecified Plan: Suspect secondary to narcotics +/- Tizanidine. Comment: voiding trial scheduled for 01/24/25. Plan 1. Transfer to TCU on 01/26/25 for additional therapy prior to returning home with his son. 2. Continue to hold Lasix. He was supposed to be taking Lasix PRN at home but, was taking it daily. Will restart at [place] and have him take it PRN for an increase in weight of 5 lbs within a week. We discussed today that his leg edema is controlled without Lasix now........with elevation and compression. When he is dehydrated he is more fatigued and also lightheaded........has not been lightheaded since the Lasix was discontinued. 3. Consider an OP sleep study. STOP BANG is at lease 6 out of possible 8 and he has pulmonary HTN and AF. Allergies/Procedures Done in Hospital Allergies tramadol (From [facility]) Adverse Reaction (Verified 01/10/25 10:15) Other DIZZINESS, WEAKNESS, LIGHT HEADEDNESS Procedures: - (Intercostal blocks on the right side by Dr. Mantilla on 01/16/2025 to control pain due to multiple rib fractures.) Type of Care/Length of Stay Estimated LOS: Convalescent Care Less Than 30 days Type of Care Needed: Skilled Rehab Potential: Good Prognosis: Good Additional Orders/Day of Discharge H&P will serve as current which was dated: 01/11/25 Day of Discharge: 01/26/25 Dietary and Speech Recommendations Dietitian Recommendations/Changes: Continue regular diet and 120ml EPHP with breakfast and dinner. Consult RD if changes occur in pt nutritional status. Follow Up Care Please follow up with your Primary Care Physician in: Following DC from TCU. Please Follow Up With: Paulino Jose METAL FURNACE OPERATOR, METAL FURNACE OPERATOR-C When: as previously instructed. Please Follow Up With: Kolby Mantilla MD When: PRN for uncontrolled pain. Discharge Plan Admission Admit Date/Time: 01/11/25 10:30 Primary Reason for Your Visit: DEBILITY DUE TO MULTIPLE RIB FRACTURES/INTR ACTABLE PAIN Attending Provider: Mallory Baum Primary Care Provider: [facility] Consulting Providers: Kolby Mantilla Discharge Orders/Prescriptions Prescriptions: New celecoxib 200 mg Capsule 200 mg PO DAILY Qty: 1 0RF acetaminophen 500 mg Tablet 1,000 mg PO Q8 Qty: 1 0RF hydrocortisone acetate 25 mg Suppository 25 mg SC BID PRN PRN (Reason: Hemorrhoids) Qty: 1 0RF magnesium hydroxide 400 mg/5 mL Suspension 30 ml PO X1 PRN (Reason: Constipation) Qty: 1 0RF bisacodyl 10 mg Suppository 10 mg SC X1 PRN (Reason: Constipation) Qty: 1 0RF nystatin 100,000 unit/gram Powder 1 applic topical 0600,2200 Qty: 1 0RF Protocol: *Topical Application Instructions APPLICATION INSTRUCTIONS: groin lisinopril 2.5 mg Tablet 2.5 mg PO DAILY Qty: 1 0RF enoxaparin 40 mg/0.4 mL Syringe 40 mg subcut DAILY@0600 Qty: 1 0RF menthol-zinc oxide [Calmoseptine] 0.44-20.6 % Ointment 1 applic topical BID Qty: 1 0RF Protocol: *Topical Application Instructions APPLICATION INSTRUCTIONS: Apply to buttock Petrolatum 33% [Eucerin Eqivalent] 1 applic topical QHS Qty: 1 0RF Rx Instructions: APPLY FROM THE KNEES TO THE BASE OF THE TOES AT HS sennosides-docusate sodium [Stimulant Laxative Plus] 8.6-50 mg Tablet 2 tab PO BID Qty: 1 0RF Biotene Dry Mouth Oral Rinse Mouthwash 15 ml mucous membrane 5X/DAY PRN (Reason: Dry Mouth) Qty: 1 0RF oxycodone 5 mg tablet 5 mg PO Q6H PRN (Reason: pain) 1 Days Qty: 1 0RF Continued aspirin [Marisela Low Dose Aspirin] 81 mg tablet,delayed release (DR/EC) 81 mg PO DAILY omeprazole 40 mg capsule,delayed release(DR/EC) 40 mg PO DAILY multivitamin Tablet 1 tab PO DAILY ranolazine 1,000 mg tablet extended release 12 hr 1,000 mg PO Q12H nitroglycerin 0.4 mg tablet, sublingual 0.4 mg SUBLINGUAL Q5-15M PRN (Reason: Chest Pain) Qty: 25 3RF tamsulosin 0.4 MG capsule 0.4 mg PO DAILY latanoprost 0.005 % drops 1 drp ophthalmic (eye) QHS Held potassium chloride 20 mEq tablet extended release 20 meq PO DAILY Hold Instructions: He is no longer taking Lasix. Resume if he takes Lasix Discontinued hydrocodone-acetaminophen 5-325 mg tablet 1 tab PO Q6H PRN PRN (Reason: Pain) 3 Days Qty: 10 0RF furosemide 40 mg tablet 40 mg PO DAILY Referrals / Follow Up: Kolby Mantilla MD [Med Staff - Active Staff] - 02/20/25 10:15 am [facility], MD [Primary Care Provider] - Disposition Disposition (needs filled in before D/C Order can be placed): [facility] Facility (2) Fall Qualifiers: Encounter type: subsequent encounter Qualified Code(s): W19.XXXD - Unspecified fall, subsequent encounter (3) Multiple rib fractures Qualifiers: Encounter type: subsequent encounter Fracture type: closed Laterality: bilateral Qualified Code(s): S22.43XD - Multiple fractures of ribs, bilateral, subsequent encounter for fracture with routine healing (7) (HFpEF) heart failure with preserved ejection fraction Qualifiers: Heart failure chronicity: chronic Qualified Code(s): I50.32 - Chronic diastolic (congestive) heart failure
[2025-01-23 17:41] VITALS: BP 148/80; PULSE 54; RESP 16; TEMP 37.2; O2SAT 96
[2025-01-23 19:35] VITALS: PULSE 54; RESP 16; O2SAT 96
[2025-01-23] MEDS: Petrolatum 33% Tube 1 APPLIC TOPICAL (19:44)
[2025-01-23] MEDS: Latanoprost 0.005% 1 Bottle 1 DRP OPHTHALMIC (19:57)
[2025-01-24 06:30] VITALS: BP 133/74; PULSE 65; RESP 17; TEMP 37.7
[2025-01-24] MEDS: Potassium Chloride Oral Tablet 20 MEQ PO (09:02)
[2025-01-24] MEDS: Aspirin E.C. 81 MG Tablet PO (09:02)
--- NOTE | 2025-01-24 09:59 | CASEMGMT ---
Social Work SW confirmed with TCU, they can accept pt on 01/26. - SW phoned son to update. Son appreciative. SW spoke with pt to update. Pt appreciative. IDT updated. Plan: DC 01/26 to TCU, skilled Juliet Orr [employer]
[2025-01-24 13:32] LABS: Red Blood Cells-Urine 0 SEEN /hpf (0-5); Squamous Epithelial Cells - UA 0 SEEN /hpf (0-5)
--- NOTE | 2025-01-24 13:35 | PCM.PN.BLA ---
Progress Note Pt had marinelli cath removed this morning at 0600. Pt then continued to have urinary retention following removal. Nursing states that she performed a straight cath, per orders. She did obtain 300ml of urine, which she described as dark, cloudy and foul smelling. Nurse, Berkley, sent the specimen to lab for UA and culture. I did order a second dose of Flomax to be administered this afternoon at 1730. Will continue to monitor and await UA results. Will consider the need for marinelli cath to be replaced if second dose does not provide relief of urinary symptoms.
[2025-01-24 13:40] LABS: Color, Urine Yellow (Yellow); Glucose, Dipstick Normal (Normal); Ketone-Dipstick Negative (Negative); Leukocyte Esterase-Dipstick 25 /ul (Negative); Nitrite-Dipstick Positive (Negative); Occult Blood-Urine 25 /ul (Negative); Protein-Dipstick 15 mg/dl (Negative); Specific Gravity, Urine 1.015 (1.002-1.030); Urine Bilirubin Dipstick Negative (Negative)
[2025-01-24 17:42] VITALS: BP 128/56; PULSE 60; RESP 17; TEMP 36.6; O2SAT 94
[2025-01-24] MEDS: Latanoprost 0.005% 1 Bottle 1 DRP OPHTHALMIC (21:28)
[2025-01-24] MEDS: Petrolatum 33% Tube 1 APPLIC TOPICAL (21:30)
[2025-01-24] MEDS: Saliva Substitute 237 ML BOTTLE 15 ML MUCOUS MEM (21:51)
[2025-01-24 22:00] VITALS: PULSE 60; RESP 17; O2SAT 94
--- NOTE | 2025-01-25 04:53 | NURSING ---
pvr #2, urine output 250mL and BS = 53mL. pvr #3, urine output 280ml and BS = 214ml.
[2025-01-25 06:00] VITALS: BP 156/72; PULSE 66; RESP 16; TEMP 36.6; O2SAT 95
[2025-01-25] MEDS: Aspirin E.C. 81 MG Tablet PO (07:52)
[2025-01-25] MEDS: Potassium Chloride Oral Tablet 20 MEQ PO (07:52)
--- NOTE | 2025-01-25 08:30 | DS.PCM_ITS ---
Providers Date of Admission: 01/11/25 Date of Discharge: 01/26/25 Primary Care Physician: Dr. Kaiser Pan MD Consultations 01/11/25 12:10 Consult: Onc/Wound/cyber security manager Routine Comment: Comments:: Left inner buttock pressure injury 01/14/25 14:26 Consult: Pain Management Routine Consulting Provider: Kolby Mantilla Reason for Consult: rib pain due to fractures. EMERGENT Consult: No MD Notified: Yes Date Notified: 01/14/25 Time Notified: 14:26 Method of Notification: Text Reason For Visit: RIGHT RIB FRACTURES Diagnosis Discharge Diagnosis (1) Physical debility: Status: Acute Code(s): R53.81 - Other malaise Plan: Due to fall resulting in multiple rib fractures. Had intercostal blocks done by Dr. Mantilla for pain control on 01/16/25 that were successful in pain management. Pt doesw have Oxycodone and Tizanidine available PRN. COntinue Celebres 200mg PO daily and Tylenol 1 gm Q8 hours. (2) Fall: Status: Inactive Code(s): W19.XXXA - Unspecified fall, initial encounter Qualifiers: Encounter type: subsequent encounter Qualified Code(s): W19.XXXD - Unspecified fall, subsequent encounter Plan: Fall precautions PT-OT eval and treat (3) Multiple rib fractures: Status: Acute Code(s): S22.49XA - Multiple fractures of ribs, unspecified side, initial encounter for closed fracture Qualifiers: Encounter type: subsequent encounter Fracture type: closed Laterality: bilateral Qualified Code(s): S22.43XD - Multiple fractures of ribs, bilateral, subsequent encounter for fracture with routine healing Plan: incentive spirometry 10 x per hour while awake splinting with back blanket vital signs Q shift (4) Uncontrolled pain: Status: Resolved Code(s): R52 - Pain, unspecified Plan: Now controlled following rib blocks done on 01/18/25 acetaminophen 1,000mg PO q 8 hours IRENA Celebrex IRENA daily [place] 5/325mg PO PRN breakthrough pain q 8 hours [id number] PO PRN muscle spasms (5) Chronic renal failure, stage 3a: Status: Chronic Code(s): N18.31 - Chronic kidney disease, stage 3a Plan: continue to monitor (6) Chronic constipation: Status: Chronic Code(s): K59.09 - Other constipation Plan: This has been a chronic problem for the patient and he has not taken any stool softners prior to arrival to the unit. He did take laxative frequently. He does have chronically poor fluid/water intake and he is on a diuretic for ankle edema. Ankle edema is most likely due to the pateints inactive lifestyle and venous insufficiency, spending time in a chair with legs down. Lasix has been held during admission in inpatient rehab. Extensive education provided and RENETTA hose have been implemented. Education on wearing compression hose and leg elevation. Instructions by Dr. Baum to utilize Lasix ONLY if his weight increases by 5 pounds or greater in a week. (7) (HFpEF) heart failure with preserved ejection fraction: Status: Chronic Code(s): I50.30 - Unspecified diastolic (congestive) heart failure Qualifiers: Heart failure chronicity: chronic Qualified Code(s): I50.32 - Chronic diastolic (congestive) heart failure Plan: follow up as needed (8) Pulmonary hypertension: Status: Chronic Code(s): I27.20 - Pulmonary hypertension, unspecified Plan: per Dr. Baum notes: Systolic pressure estimated at 45 on the ECHO in 2023. During admission he did have a trending overnight pulse ox which showed that 2.29% of the time, his pulse ox ranged from 85-89% which was approximately 13minutes and 40 seconds. There were no desaturation events greater than 60 seconds. STOP BANG score is 6 fir age >50, HTN , male sex, neck circunference >40cm, Daytime somnolence and BMI >35. He lives alone and does not know if he stops breathing at night or if he snores. Consider sleep study going forward to evaluate for PARDEEP of Pulmonary HTN (9) AF (paroxysmal atrial fibrillation): Status: Chronic Code(s): I48.0 - Paroxysmal atrial fibrillation (10) Aortic valve stenosis, nonrheumatic: Status: Chronic Code(s): I35.0 - Nonrheumatic aortic (valve) stenosis Plan: moderate on ECHO in December 2023 (11) Venous insufficiency (chronic) (peripheral): Status: Chronic Code(s): I87.2 - Venous insufficiency (chronic) (peripheral) Plan: controlled with RENETTA hose. Holding Lasix due to dehydration and poor oral intake dispite encouragement of staff. Suspected lower extremity edema related to sedintary lifestyle and sitting a majority of the day causing dependant edema to the ankles He has not had edema during his stay while he has been wearing RENETTA hose and elevation of legs during sitting times. (Lasic on hold) Weight has been stable during admission. (12) Heme positive stool: Status: Acute Code(s): R19.5 - Other fecal abnormalities Plan: HBG is stable. Pt is on Protonix. (13) Thrombocytopenia: Status: Chronic Code(s): D69.6 - Thrombocytopenia, unspecified Plan: Unknown Etiology. Pt has been stable the for a couple of years following chart review and PLT are > 100,000 Recommend OP followup . (14) Essential hypertension: Status: Chronic Code(s): I10 - Essential (primary) hypertension Plan: initiated Lisinopril 2.5mg PO q day. (15) Urine retention: Status: Acute Code(s): R33.9 - Retention of urine, unspecified Plan: Possibly related to Narcotics and Tizanidine. These are now PRN. bladder scan q 8 hours if no urine produced. straight cath for > 300ml Flowmax 0.4mg PO q day Flowmax 0.4mg PO bid x 1 day on 01/24/25 insert indwelling urinary cath for required straight cat of 3 or greater times. consider urinary consult if indwelling cath is re-inserted. (16) UTI (urinary tract infection): Status: Acute Code(s): N39.0 - Urinary tract infection, site not specified Qualifiers: Urinary tract infection type: urethritis Qualified Code(s): N34.2 - Other urethritis Plan: Kelfex 500mg PO q 8 hours x 10 days Plan PLAN Summary: 1. Pt will be transferred to TCU on 01/26/25 for continued PT/OT, before returning home with son. 2.per Dr. Baum: Continue to hold Lasix . May continue after DC on a PRN basis if he has an increase in weight >5 pounds within a week. He is aware that his ankle edema is currently being controlled with RENETTA hose and elevation, Education about signs of dehydration and that he has not experienced those during his stay. These include dizziness and fatigue. 3. Consider OP sleep study for PARDEEP. STOP BAND is a least 6 out of possible 8 and he has pulmonary HTN and AF. 4. Continue with Keflex for UTI. culture and sensitivity are pending. 5. Increased Flomax to 0.4mg PO bid for urinary retention. Medications at Discharge Home Medications tamsulosin 0.4 mg capsule 0.4 mg PO DAILY URINE FLOW 03/06/16 aspirin 81 mg tablet,delayed release (Marisela Low Dose Aspirin) 81 mg PO DAILY heart health 07/04/18 omeprazole 40 mg capsule,delayed release 40 mg PO DAILY acid reflux 07/04/18 potassium chloride 20 mEq tablet,extended release 20 meq PO DAILY supplement 07/04/18 Held on 01/23/25. Instructions: He is no longer taking Lasix. Resume if he takes Lasix multivitamin 1 tab PO DAILY supplement 04/15/22 nitroglycerin 0.4 mg sublingual tablet 0.4 mg sublingual Q5-15M PRN Chest Pain #25 tabs 07/17/24 ranolazine 1,000 mg tablet,extended release,12 hr 1,000 mg PO Q12H [facility] 07/17/24 latanoprost 0.005 % eye drops 1 drp ophthalmic (eye) Q eye health 01/11/25 Petrolatum 33% [Eucerin Eqivalent] 1 applic topical QHS #1 applic 01/23/25 acetaminophen 500 mg tablet 1,000 mg (2 x 500 mg) PO Q8 #1 TAB 01/23/25 bisacodyl 10 mg rectal suppository 10 mg NC X1 PRN Constipation #1 ea 01/23/25 celecoxib 200 mg capsule 200 mg PO DAILY #1 cap 01/23/25 enoxaparin 40 mg/0.4 mL subcutaneous syringe 40 mg (0.4 mL) subcut DAILY@0600 #1 mL 01/23/25 hydrocortisone acetate 25 mg rectal suppository 25 mg NC BID PRN PRN Hemorrhoids #1 ea 01/23/25 lisinopril 2.5 mg tablet 2.5 mg PO DAILY #1 TAB 01/23/25 magnesium hydroxide 400 mg/5 mL oral suspension 30 ml PO X1 PRN Constipation #1 mL 01/23/25 menthol 0.44 %-zinc oxide 20.6 % topical ointment (Calmoseptine) 1 applic topical BID #1 g 01/23/25 nystatin 100,000 unit/gram topical powder 1 applic topical 0600,2200 #1 g 01/23/25 oxycodone 5 mg tablet 5 mg PO Q6H PRN pain 1 day #1 TAB 01/23/25 saliva substitute combo no.9 (Biotene Dry Mouth Oral Rinse mouthwash) 15 ml mucous membrane 5X/DAY PRN Dry Mouth #1 mL 01/23/25 sennosides 8.6 mg-docusate sodium 50 mg tablet (Stimulant Laxative Plus) 2 tab PO BID #1 TAB 01/23/25 cephalexin 500 mg capsule 500 mg PO Q12 8 days #16 caps 01/24/25 Physical Exam Const oriented x3 and no apparent distress Orientation / Consciousness: awake, oriented to person, oriented to place and oriented to time HEENT normocephalic Eyes PERRL, EOMs intact bilaterally, conjunctivae normal, no scleral icterus, no papilledema, normal visual blount by confrontation and fundi normal bilaterally Chest inspection of chest normal, palpation of chest normal, inspection of breasts normal and palpation of breasts normal Resp normal respiratory effort, normal air movement, no retractions, no use of accessory muscles, clear to auscultation bilaterally and percussion normal Cardio Cardio Narrative: intermittent A-fib Peripheral Pulses: pulses 2+ throughout GI normal to inspection, nondistended, normoactive bowel sounds, soft to palpation, non-tender, non-distended, no masses and no bruits GI Narrative: obesity Palpation: soft Narrative: urninary retention Bladder / Kidney Exam: other Back/Spine no CVA tenderness Extremity normal to inspection Peripheral Pulses: Yes pulses 2+ throughout Skin General Skin Exam: no breakdown Neuro oriented x3 Sensorium / Orientation: awake, alert, oriented to person, oriented to place and oriented to time Psych mental status grossly normal Medical Records Data Homelessness:: Sheltered Weight / BMI Weight Weight: 248 lb 14.43 oz Body Mass Index (BMI) 36.7 ABG / Lab / Microbiology Data 01/22/25 05:02 01/22/25 05:02 Laboratory: Laboratory Results - last 24 hr 01/24/25 13:10: Urine Color Yellow, Urine Clarity Sl. Cloudy, Urine pH 9.0, Ur Specific [place] 1.015, Urine Protein 15 H, Urine Glucose (UA) Normal, Urine Ketones Negative, Urine Occult Blood 25 H, Urine Nitrite Positive H, Urine Bilirubin Negative, Urine Urobilinogen Normal, Ur Leukocyte Esterase 25 H, Urine RBC 0 SEEN, Urine WBC 0 SEEN, Ur Squamous Epith Cells 0 SEEN, Urine Bacteria 1+, Urine Mucus Not Reportable Microbiology: Microbiology 01/24/25 13:10 Urine Catheter - Don Urine Culture - Preliminary Gram negative jared 01/12/25 08:40 Stool Stool Occult Blood (REUBEN) - Final Occult Blood Positive D/C Instructions Discharge Activity: - (SEE PT/OT recommendations ) DC O2, CPAP, BIPAP Needs Home O2 Discharge instructions: No DC home with Oxygen: No Please Follow Up With: Paulino Jose TRANSPORTATION MECHANIC, TRANSPORTATION MECHANIC-C Meaningful Use Info Meaningful Use Meaningful Use Diagnoses (Choose all that apply): None applicable Discharge Plan Admission Admit Date/Time: 01/11/25 10:30 Primary Reason for Your Visit: DEBILITY DUE TO MULTIPLE RIB FRACTURES/INTRACTABLE PAIN Attending Provider: Mallory Baum Primary Care Provider: Kaiser Pan Chi Consulting Providers: Kolby Mantilla Discharge Orders/Prescriptions Prescriptions: New celecoxib 200 mg Capsule 200 mg PO DAILY Qty: 1 0RF acetaminophen 500 mg Tablet 1,000 mg PO Q8 Qty: 1 0RF hydrocortisone acetate 25 mg Suppository 25 mg NC BID PRN PRN (Reason: Hemorrhoids) Qty: 1 0RF magnesium hydroxide 400 mg/5 mL Suspension 30 ml PO X1 PRN (Reason: Constipation) Qty: 1 0RF bisacodyl 10 mg Suppository 10 mg NC X1 PRN (Reason: Constipation) Qty: 1 0RF nystatin 100,000 unit/gram Powder 1 applic topical 0600,2200 Qty: 1 0RF Protocol: *Topical Application Instructions APPLICATION INSTRUCTIONS: groin lisinopril 2.5 mg Tablet 2.5 mg PO DAILY Qty: 1 0RF enoxaparin 40 mg/0.4 mL Syringe 40 mg subcut DAILY@0600 Qty: 1 0RF menthol-zinc oxide [Calmoseptine] 0.44-20.6 % Ointment 1 applic topical BID Qty: 1 0RF Protocol: *Topical Application Instructions APPLICATION INSTRUCTIONS: Apply to buttock Petrolatum 33% [Eucerin Eqivalent] 1 applic topical QHS Qty: 1 0RF Rx Instructions: APPLY FROM THE KNEES TO THE BASE OF THE TOES AT HS sennosides-docusate sodium [Stimulant Laxative Plus] 8.6-50 mg Tablet 2 tab PO BID Qty: 1 0RF Biotene Dry Mouth Oral Rinse Mouthwash 15 ml mucous membrane 5X/DAY PRN (Reason: Dry Mouth) Qty: 1 0RF oxycodone 5 mg tablet 5 mg PO Q6H PRN (Reason: pain) 1 Days Qty: 1 0RF cephalexin 500 mg Capsule 500 mg PO Q12 8 Days Qty: 16 0RF Continued aspirin [Marisela Low Dose Aspirin] 81 mg tablet,delayed release (DR/EC) 81 mg PO DAILY omeprazole 40 mg capsule,delayed release(DR/EC) 40 mg PO DAILY multivitamin Tablet 1 tab PO DAILY ranolazine 1,000 mg tablet extended release 12 hr 1,000 mg PO Q12H nitroglycerin 0.4 mg tablet, sublingual 0.4 mg SUBLINGUAL Q5-15M PRN (Reason: Chest Pain) Qty: 25 3RF tamsulosin 0.4 MG capsule 0.4 mg PO DAILY Patient Comments: now taking BID latanoprost 0.005 % drops 1 drp ophthalmic (eye) QHS Held potassium chloride 20 mEq tablet extended release 20 meq PO DAILY Hold Instructions: He is no longer taking Lasix. Resume if he takes Lasix Discontinued hydrocodone-acetaminophen 5-325 mg tablet 1 tab PO Q6H PRN PRN (Reason: Pain) 3 Days Qty: 10 0RF furosemide 40 mg tablet 40 mg PO DAILY Referrals / Follow Up: Kolby Mantilla MD [Med Staff - Active Staff] - 02/20/25 10:15 am Dominik Bailey MD [Med Staff - Active Staff] - Kaiser Pan Chi, MD [Primary Care Provider] - Disposition Disposition (needs filled in before D/C Order can be placed): Intermediate Facility
--- NOTE | 2025-01-25 14:34 | TREXTCAR_ITS ---
Diet Diet Order/Speech Therapy: INPATIENT Hospital Diet / Speech Therapy Order(s) 01/11/25 10:36 Diet: Regular - General Food consistency:: Regular Liquid Consistency:: Regular/Thin Type of Dietary Supplement:: Ensure Plus High Protein Diet Comments: 120ml chocolate EPHP with breakfast and dinner Routine Orders/Code Status Enema Type: Fleetz Enema Frequency: Daily PRN Suppository Type: Dulcolax 10mg Suppository Frequency: Daily PRN Code Status: Full Code DC O2, CPAP, BIPAP needs Home O2 Discharge instructions: No Wound(s) Right elbow: Wound Type: scab Left inner buttock: Wound Type: Pressure Injury MID BACK: Wound Type: Surgical Incision Therapies Physical Therapy: Eval and Treat Occupational Therapy: Eval and Treat Narrative: Wound(s) Right elbow: Wound Type: scab Left inner buttock: Wound Type: Pressure Injury MID BACK: Wound Type: Surgical Incision Therapies Weight Bearing: Full weight bearing Physical Therapy: Eval and Treat Occupational Therapy: Eval and Treat Problem/Diagnosis (1) Physical debility: Status: Acute Code(s): R53.81 - Other malaise Plan: Due to a fall resulting in multiple rib fractures. Had intercoastal blocks done by Dr. Mantilla for pain control on 01/16/25 that were very effective. Oxycodone and tizanidine are now PRN only. Will continue celebrex 200 mg daily and Tylenol 1 GM Q 8H. (2) Fall: Status: Inactive Code(s): W19.XXXA - Unspecified fall, initial encounter (3) Multiple rib fractures: Status: Acute Code(s): S22.49XA - Multiple fractures of ribs, unspecified side, initial encounter for closed fracture Plan: Ribs 8, 9 and 10 on the right and the left 10th rib. (4) Uncontrolled pain: Status: Resolved Code(s): R52 - Pain, unspecified Plan: 01/23/25 Pain is well controlled. the rib blocks were very effective in getting the pain under control. Oxycodone during the day was made PRN 2 days ago and he has not asked for it. He has been getting 5 mg at HS but, that was changed to PRN today. Fizanidine 2 mg BID has also changed to PRN. Continue scheduled Tylenol and Celebrex. continue the PRN Oxycodone 5 mg. (5) Chronic renal failure, stage 3a: Status: Chronic Code(s): N18.31 - Chronic kidney disease, stage 3a (6) Chronic constipation: Status: Chronic Code(s): K59.09 - Other constipation Plan: This has been a chronic problem. He was not taking any stool softeners at home but, was taking laxatives frequently. His fluid intake is chronically poor and he is on a diuretic for ankle edema which is more likely than not due to venous insufficiency related to obesity and sedentary lifestyle. He also has pulmonary HTN. He sits in a recliner most of the day and does not elevate his legs. Lasix was held on rehab and the edema is controlled with RENETTA hose. We have educated him on the importance of elevating his legs and wearing the compression stockings......he has these at home and his son is always encouraging him to wear them. I recommeded he take Lasix ONLY if his wt increases by 5 lbs or greater in a week. (7) (HFpEF) heart failure with preserved ejection fraction: Status: Chronic Code(s): I50.30 - Unspecified diastolic (congestive) heart failure (8) Pulmonary hypertension: Status: Chronic Code(s): I27.20 - Pulmonary hypertension, unspecified Plan: Systolic pressure estimated at 45 on echocardiogram in December 2023. He had an overnight trending pulse ox while on acute rehab and it showed that 2.29% of the time he is pulse ox ranged from 85 to 89%. This amounted to 13 minutes and 40 seconds. There were no desaturation events greater than 60 seconds. STOP BANG score is 6 for age>50, HTN, male sex, neck circumference > 40cm, daytime somnolence and BMI > 35. He lives alone and does not know if he stops breathing at night or if he snores. Would consider a sleep study going forward to evaluate him for PARDEEP as the etiology of Pulmonary HTN. (9) AF (paroxysmal atrial fibrillation): Status: Chronic Code(s): I48.0 - Paroxysmal atrial fibrillation (10) Aortic valve stenosis, nonrheumatic: Status: Chronic Code(s): I35.0 - Nonrheumatic aortic (valve) stenosis Plan: Moderate on echocardiogram in December 2023 (11) Venous insufficiency (chronic) (peripheral): Status: Chronic Code(s): I87.2 - Venous insufficiency (chronic) (peripheral) Plan: Controlled with RENETTA hose. Had to hold Lasix due to dehydration, poor fluid i ntake chronically. I suspect the LE edema is actually due to venous insufficiency/pulmonary HTN and not CHF. He sits most of the day with his legs dependent and there is no edema since he has been wearing the RENETTA hose (Lasix has been on hold). Wt is stable, despite all the carbs he consumes. (12) Heme positive stool: Status: Acute Code(s): R19.5 - Other fecal abnormalities Plan: HGB is stable. He is on {Protonix. Comment: HGB is WNL (13) Thrombocytopenia: Status: Chronic Code(s): D69.6 - Thrombocytopenia, unspecified Plan: Etiology? ITP? Can be evaluated as an OP. Etiology? Has been stable over the past couple years and PLT's are above 100,000. (14) Essential hypertension: Status: Chronic Code(s): I10 - Essential (primary) hypertension Plan: Started on Lisinopril 2.5 mg daily and BP looks better. No cough. (15) Urine retention: Status: Acute Code(s): R33.9 - Retention of urine, unspecified Plan: Suspect secondary to narcotics +/- Tizanidine. Comment: voiding trial scheduled for 01/24/25. Plan 1. Transfer to TCU on 01/26/25 for additional therapy prior to returning home with his son. 2. Continue to hold Lasix. He was supposed to be taking Lasix PRN at home but, was taking it daily. Will restart at NH and have him take it PRN for an increase in weight of 5 lbs within a week. We discussed today that his leg edema is controlled without Lasix now........with elevation and compression. When he is dehydrated he is more fatigued and also lightheaded........has not been lightheaded since the Lasix was discontinued. 3. Consider an OP sleep study. STOP BANG is at lease 6 out of possible 8 and he has pulmonary HTN and AF. Allergies/Procedures Done in Hospital Allergies tramadol (From [facility]) Adverse Reaction (Verified 01/10/25 10:15) Other DIZZINESS, WEAKNESS, LIGHT HEADEDNESS Procedures: - (Intercostal blocks on the right side by Dr. Mantilla on 01/16/2025 to control pain due to multiple rib fractures.) Type of Care/Length of Stay Estimated LOS: Convalescent Care Less Than 30 days Type of Care Needed: Skilled Rehab Potential: Good Prognosis: Good Additional Orders/Day of Discharge H&P will serve as current which was dated: 01/11/25 Day of Discharge: 01/26/25 Dietary and Speech Recommendations Dietitian Recommendations/Changes: Continue regular diet and 120ml EPHP with breakfast and dinner. Consult RD if changes occur in pt nutritional status. Follow Up Care Please follow up with your Primary Care Physician in: Following DC from TCU. Please Follow Up With: Paulino Jose SAP TREASURY CONSULTANT, SAP TREASURY CONSULTANT-C When: as previously instructed. Please Follow Up With: Kolby Mantilla MD When: PRN for uncontrolled pain. Discharge Plan Admission Admit Date/Time: 01/11/25 10:30 Primary Reason for Your Visit: DEBILITY DUE TO MULTIPLE RIB FRACTURES/INTRA CTABLE PAIN Attending Provider: Mallory Baum Primary Care Provider: [facility] Consulting Providers: Kolby Mantilla Discharge Orders/Prescriptions Prescriptions: New celecoxib 200 mg Capsule 200 mg PO DAILY Qty: 1 0RF acetaminophen 500 mg Tablet 1,000 mg PO Q8 Qty: 1 0RF hydrocortisone acetate 25 mg Suppository 25 mg MT BID PRN PRN (Reason: Hemorrhoids) Qty: 1 0RF magnesium hydroxide 400 mg/5 mL Suspension 30 ml PO X1 PRN (Reason: Constipation) Qty: 1 0RF bisacodyl 10 mg Suppository 10 mg MT X1 PRN (Reason: Constipation) Qty: 1 0RF nystatin 100,000 unit/gram Powder 1 applic topical 0600,2200 Qty: 1 0RF Protocol: *Topical Application Instructions APPLICATION INSTRUCTIONS: groin lisinopril 2.5 mg Tablet 2.5 mg PO DAILY Qty: 1 0RF enoxaparin 40 mg/0.4 mL Syringe 40 mg subcut DAILY@0600 Qty: 1 0RF menthol-zinc oxide [Calmoseptine] 0.44-20.6 % Ointment 1 applic topical BID Qty: 1 0RF Protocol: *Topical Application Instructions APPLICATION INSTRUCTIONS: Apply to buttock Petrolatum 33% [Eucerin Eqivalent] 1 applic topical QHS Qty: 1 0RF Rx Instructions: APPLY FROM THE KNEES TO THE BASE OF THE TOES AT HS sennosides-docusate sodium [Stimulant Laxative Plus] 8.6-50 mg Tablet 2 tab PO BID Qty: 1 0RF Biotene Dry Mouth Oral Rinse Mouthwash 15 ml mucous membrane 5X/DAY PRN (Reason: Dry Mouth) Qty: 1 0RF oxycodone 5 mg tablet 5 mg PO Q6H PRN (Reason: pain) 1 Days Qty: 1 0RF Continued aspirin [Marisela Low Dose Aspirin] 81 mg tablet,delayed release (DR/EC) 81 mg PO DAILY omeprazole 40 mg capsule,delayed release(DR/EC) 40 mg PO DAILY multivitamin Tablet 1 tab PO DAILY ranolazine 1,000 mg tablet extended release 12 hr 1,000 mg PO Q12H nitroglycerin 0.4 mg tablet, sublingual 0.4 mg SUBLINGUAL Q5-15M PRN (Reason: Chest Pain) Qty: 25 3RF tamsulosin 0.4 MG capsule 0.4 mg PO DAILY latanoprost 0.005 % drops 1 drp ophthalmic (eye) QHS Held potassium chloride 20 mEq tablet extended release 20 meq PO DAILY Hold Instructions: He is no longer taking Lasix. Resume if he takes Lasix Discontinued hydrocodone-acetaminophen 5-325 mg tablet 1 tab PO Q6H PRN PRN (Reason: Pain) 3 Days Qty: 10 0RF furosemide 40 mg tablet 40 mg PO DAILY Referrals / Follow Up: Kolby Mantilla MD [Med Staff - Active Staff] - 02/20/25 10:15 am [facility], MD [Primary Care Provider] - Disposition Disposition (needs filled in before D/C Order can be placed): Retirement Facility (2) Fall Qualifiers: Encounter type: subsequent encounter Qualified Code(s): W19.XXXD - Unspecified fall, subsequent encounter (3) Multiple rib fractures Qualifiers: Encounter type: subsequent encounter Fracture type: closed Laterality: bilateral Qualified Code(s): S22.43XD - Multiple fractures of ribs, bilateral, subsequent encounter for fracture with routine healing (7) (HFpEF) heart failure with preserved ejection fraction Qualifiers: Heart failure chronicity: chronic Qualified Code(s): I50.32 - Chronic diastolic (congestive) heart failure Cosigner Signature (if applicable): CC: ~ Problem/Diagnosis (1) Physical debility: Status: Acute Code(s): R53.81 - Other malaise Plan: Due to fall resulting in multiple rib fractures. Had intercostal blocks done by Dr. Mantilla for pain control on 01/16/25 that were successful in pain management. Pt doesw have Oxycodone and Tizanidine available PRN. COntinue Celebres 200mg PO daily and Tylenol 1 gm Q8 hours. (2) Fall: Status: Inactive Code(s): W19.XXXA - Unspecified fall, initial encounter Plan: Fall precautions PT-OT eval and treat (3) Multiple rib fractures: Status: Acute Code(s): S22.49XA - Multiple fractures of ribs, unspecified side, initial encounter for closed fracture Plan: incentive spirometry 10 x per hour while awake splinting with back blanket vital signs Q shift (4) Uncontrolled pain: Status: Resolved Code(s): R52 - Pain, unspecified Plan: Now controlled following rib blocks done on 01/18/25 acetaminophen 1,000mg PO q 8 hours IRENA Celebrex IRENA daily [place] 5/325mg PO PRN breakthrough pain q 8 hours [id number] PO PRN muscle spasms (5) Chronic renal failure, stage 3a: Status: Chronic Code(s): N18.31 - Chronic kidney disease, stage 3a Plan: continue to monitor (6) Chronic constipation: Status: Chronic Code(s): K59.09 - Other constipation Plan: This has been a chronic problem for the patient and he has not taken any stool softners prior to arrival to the unit. He did take laxative frequently. He does have chronically poor fluid/water intake and he is on a diuretic for ankle edema. Ankle edema is most likely due to the pateints inactive lifestyle and venous insufficiency, spending time in a chair with legs down. Lasix has been held during admission in inpatient rehab. Extensive education provided and RENETTA hose have been implemented. Education on wearing compression hose and leg elevation. Instructions by Dr. Baum to utilize Lasix ONLY if his weight increases by 5 pounds or greater in a week. (7) (HFpEF) heart failure with preserved ejection fraction: Status: Chronic Code(s): I50.30 - Unspecified diastolic (congestive) heart failure Plan: follow up as needed (8) Pulmonary hypertension: Status: Chronic Code(s): I27.20 - Pulmonary hypertension, unspecified Plan: per Dr. Baum notes: Systolic pressure estimated at 45 on the ECHO in 2023. During admission he did have a trending overnight pulse ox which showed that 2.29% of the time, his pulse ox ranged from 85-89% which was approximately 13minutes and 40 seconds. There were no desaturation events greater than 60 seconds. STOP BANG score is 6 fir age >50, HTN , male sex, neck circunference >40cm, Daytime somnolence and BMI >35. He lives alone and does not know if he stops breathing at night or if he snores. Consider sleep study going forward to evaluate for PARDEEP of Pulmonary HTN (9) AF (paroxysmal atrial fibrillation): Status: Chronic Code(s): I48.0 - Paroxysmal atrial fibrillation (10) Aortic valve stenosis, nonrheumatic: Status: Chronic Code(s): I35.0 - Nonrheumatic aortic (valve) stenosis Plan: moderate on ECHO in December 2023 (11) Venous insufficiency (chronic) (peripheral): Status: Chronic Code(s): I87.2 - Venous insufficiency (chronic) (peripheral) Plan: controlled with RENETTA hose. Holding Lasix due to dehydration and poor oral intake dispite encouragement of staff. Suspected lower extremity edema related to sedintary lifestyle and sitting a majority of the day causing dependant edema to the ankles He has not had edema during his stay while he has been wearing RENETTA hose and elevation of legs during sitting times. (Lasic on hold) Weight has been stable during admission. (12) Heme positive stool: Status: Acute Code(s): R19.5 - Other fecal abnormalities Plan: HBG is stable. Pt is on Protonix. Comment: HGB is WNL (13) Thrombocytopenia: Status: Chronic Code(s): D69.6 - Thrombocytopenia, unspecified Plan: Unknown Etiology. Pt has been stable the for a couple of years following chart review and PLT are > 100,000 Recommend OP followup . (14) Essential hypertension: Status: Chronic Code(s): I10 - Essential (primary) hypertension Plan: initiated Lisinopril 2.5mg PO q day. (15) Urine retention: Status: Acute Code(s): R33.9 - Retention of urine, unspecified Plan: Possibly related to Narcotics and Tizanidine. These are now PRN. bladder scan q 8 hours if no urine produced. straight cath for > 300ml Flowmax 0.4mg PO q day Flowmax 0.4mg PO bid x 1 day on 01/24/25 insert indwelling urinary cath for required straight cat of 3 or greater times. consider urinary consult if indwelling cath is re-inserted. Comment: voiding trial scheduled for 01/24/25. (16) UTI (urinary tract infection): Status: Acute Code(s): N39.0 - Urinary tract infection, site not specified Plan: Kelfex 500mg PO q 8 hours x 10 days Plan PLAN Summary: 1. Pt will be transferred to TCU on 01/26/25 for continued PT/OT, before returning home with son. 2.per Dr. Baum: Continue to hold Lasix . May continue after DC on a PRN basis if he has an increase in weight >5 pounds within a week. He is aware that his ankle edema is currently being controlled with RENETTA hose and elevation, Education about signs of dehydration and that he has not experienced those during his stay. These include dizziness and fatigue. 3. Consider OP sleep study for PARDEEP. STOP BAND is a least 6 out of possible 8 and he has pulmonary HTN and AF. 4. Continue with Keflex for UTI. culture and sensitivity are pending. 5. Increased Flomax to 0.4mg PO bid for urinary retention. Allergies/Procedures Done in Hospital Allergies tramadol (From [facility]) Adverse Reaction (Verified 01/10/25 10:15) Other DIZZINESS, WEAKNESS, LIGHT HEADEDNESS Procedures: - (Intercostal blocks on the right side by Dr. Mantilla on 01/16/2025 to control pain due to multiple rib fractures.) Type of Care/Length of Stay Estimated LOS: Convalescent Care Less Than 30 days Type of Care Needed: Skilled Rehab Potential: Good Prognosis: Good Additional Orders/Day of Discharge H&P will serve as current which was dated: 01/11/25 Day of Discharge: 01/26/25 Dietary and Speech Recommendations Dietitian Recommendations/Changes: Continue regular diet and 120ml EPHP with breakfast and dinner. Consult RD if changes occur in pt nutritional status. Follow Up Care Please follow up with your Primary Care Physician in: Following DC from TCU. Please Follow Up With: Paulino Jose NP, [employer] TREASURY CONSULTANT-C When: as previously instructed. Please Follow Up With: Kolby Mantilla MD When: PRN for uncontrolled pain. Discharge Plan Admission Admit Date/Time: 01/11/25 10:30 Primary Reason for Your Visit: DEBILITY DUE TO MULTIPLE RIB FRACTURES/INTRACTABLE PAIN Attending Provider: Mallory Baum Primary Care Provider: [facility] Providers: Kolby Mantilla Discharge Orders/Prescriptions Prescriptions: New celecoxib 200 mg Capsule 200 mg PO DAILY Qty: 1 0RF acetaminophen 500 mg Tablet 1,000 mg PO Q8 Qty: 1 0RF hydrocortisone acetate 25 mg Suppository 25 mg MT BID PRN PRN (Reason: Hemorrhoids) Qty: 1 0RF magnesium hydroxide 400 mg/5 mL Suspension 30 ml PO X1 PRN (Reason: Constipation) Qty: 1 0RF bisacodyl 10 mg Suppository 10 mg MT X1 PRN (Reason: Constipation) Qty: 1 0RF nystatin 100,000 unit/gram Powder 1 applic topical 0600,2200 Qty: 1 0RF Protocol: *Topical Application Instructions APPLICATION INSTRUCTIONS: groin lisinopril 2.5 mg Tablet 2.5 mg PO DAILY Qty: 1 0RF enoxaparin 40 mg/0.4 mL Syringe 40 mg subcut DAILY@0600 Qty: 1 0RF menthol-zinc oxide [Calmoseptine] 0.44-20.6 % Ointment 1 applic topical BID Qty: 1 0RF Protocol: *Topical Application Instructions APPLICATION INSTRUCTIONS: Apply to buttock Petrolatum 33% [Eucerin Eqivalent] 1 applic topical QHS Qty: 1 0RF Rx Instructions: APPLY FROM THE KNEES TO THE BASE OF THE TOES AT HS sennosides-docusate sodium [Stimulant Laxative Plus] 8.6-50 mg Tablet 2 tab PO BID Qty: 1 0RF Biotene Dry Mouth Oral Rinse Mouthwash 15 ml mucous membrane 5X/DAY PRN (Reason: Dry Mouth) Qty: 1 0RF oxycodone 5 mg tablet 5 mg PO Q6H PRN (Reason: pain) 1 Days Qty: 1 0RF cephalexin 500 mg Capsule 500 mg PO Q12 8 Days Qty: 16 0RF Continued aspirin [Marisela Low Dose Aspirin] 81 mg tablet,delayed release (DR/EC) 81 mg PO DAILY omeprazole 40 mg capsule,delayed release(DR/EC) 40 mg PO DAILY multivitamin Tablet 1 tab PO DAILY ranolazine 1,000 mg tablet extended release 12 hr 1,000 mg PO Q12H nitroglycerin 0.4 mg tablet, sublingual 0.4 mg SUBLINGUAL Q5-15M PRN (Reason: Chest Pain) Qty: 25 3RF tamsulosin 0.4 MG capsule 0.4 mg PO DAILY Patient Comments: now taking BID latanoprost 0.005 % drops 1 drp ophthalmic (eye) QHS Held potassium chloride 20 mEq tablet extended release 20 meq PO DAILY Hold Instructions: He is no longer taking Lasix. Resume if he takes Lasix Discontinued hydrocodone-acetaminophen 5-325 mg tablet 1 tab PO Q6H PRN PRN (Reason: Pain) 3 Days Qty: 10 0RF furosemide 40 mg tablet 40 mg PO DAILY Referrals / Follow Up: Kolby Mantilla MD [Med Staff - Active Staff] - 02/20/25 10:15 am Dominik Bailey MD [Med Staff - Active Staff] - [facility], MD [Primary Care Provider] - Disposition Disposition (needs filled in before D/C Order can be placed): Retirement Fa cility (2) Fall Qualifiers: Encounter type: subsequent encounter Qualified Code(s): W19.XXXD - Unspecified fall, subsequent encounter (3) Multiple rib fractures Qualifiers: Encounter type: subsequent encounter Fracture type: closed Laterality: bilateral Qualified Code(s): S22.43XD - Multiple fractures of ribs, bilateral, subsequent encounter for fracture with routine healing (7) (HFpEF) heart failure with preserved ejection fraction Qualifiers: Heart failure chronicity: chronic Qualified Code(s): I50.32 - Chronic diastolic (congestive) heart failure (16) UTI (urinary tract infection) Qualifiers: Urinary tract infection type: urethritis Qualified Code(s): N34.2 - Other urethritis
[2025-01-25 17:48] VITALS: BP 135/65; PULSE 71; RESP 18; TEMP 36.6; O2SAT 96
[2025-01-25] MEDS: Latanoprost 0.005% 1 Bottle 1 DRP OPHTHALMIC (22:33)
[2025-01-25] MEDS: Petrolatum 33% Tube 1 APPLIC TOPICAL (22:35)
[2025-01-26 06:00] VITALS: BP 145/75; PULSE 88; RESP 16; TEMP 36.4; O2SAT 96
[2025-01-26] MEDS: Potassium Chloride Oral Tablet 20 MEQ PO (08:23)
[2025-01-26] MEDS: Aspirin E.C. 81 MG Tablet PO (08:23)
== END 2025-01-26 15:54 | disposition skilled nursing facility (03) | DRG 560 ==
PROVIDERS: Anesthesiology Pain Medicine; Nurse Practitioner Family; Admitting Provider Internal Medicine; PCP Family Medicine Geriatric Medicine; Referring Provider Internal Medicine; Visit Provider Internal Medicine
PROC: 3E0T3BZ Introduction of Anesthetic Agent into Peripheral Nerves and Plexi, Percutaneous Approach (ICD-10-PCS; principal; 2025-01-15 11:55)
DX: S22.43XD Multiple fractures of ribs, bilateral, subsequent encounter for fracture with routine healing (principal); I50.32 Chronic diastolic (congestive) heart failure; I13.0 Hypertensive heart and chronic kidney disease with heart failure and stage 1 through stage 4 chronic kidney disease, or unspecified chronic kidney disease; I27.20 Pulmonary hypertension, unspecified; D69.6 Thrombocytopenia, unspecified; L89.321 Pressure ulcer of left buttock, stage 1; L89.326 Pressure-induced deep tissue damage of left buttock; N18.31 Chronic kidney disease, stage 3a; I35.0 Nonrheumatic aortic (valve) stenosis; E66.812 Obesity, class 2; I48.0 Paroxysmal atrial fibrillation; I25.10 Atherosclerotic heart disease of native coronary artery without angina pectoris; K21.9 Gastro-esophageal reflux disease without esophagitis; E78.00 Pure hypercholesterolemia, unspecified; W01.0XXD Fall on same level from slipping, tripping and stumbling without subsequent striking against object, subsequent encounter; I44.4 Left anterior fascicular block; K64.9 Unspecified hemorrhoids; I87.2 Venous insufficiency (chronic) (peripheral); K59.09 Other constipation; Z68.36 Body mass index [BMI] 36.0-36.9, adult; Z79.899 Other long term (current) drug therapy; Z79.82 Long term (current) use of aspirin; Z91.148 Patient's other noncompliance with medication regimen for other reason; R33.9 Retention of urine, unspecified
CPT/HCPCS: 36415; 64490; 71111; 72070; 74018; 80048; 80053; 81001; 82274; 82607; 82746; 83036; 83735; 84100; 85025; 85027; 87077; 87086; 87088; 87186; 93005; 94668; 94762; 97110; 97112; 97116; 97162; 97165; 97530; 97535; 97802; 97803; 99282; A4216

== ENCOUNTER 2025-01-26 15:50 | Inpatient (IN) | payer MEDICARE, OTHER, SELFPAY ==
--- OUTSIDE RECORDS SUMMARY | 2025-01-26 16:26 | XMS RPT_ITS | CCD ---
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 Kaiser Pan Chi Primary Care Provider Maxim, Dr. Kaiser Funez Referring Provider Roof WILTON WEAVER, WILTON WEAVER-Figueroa Iglesias Attending Provider Maxim, Dr. Kaiser Funez Other Provider Dr. Kd Dunne Attending Provider Dr. Juan Wilks Emergency Provider Dr. Lele Zendejas Admit Provider Unavailable Dr. Lele Zendejas Attending Provider Unavailable Aashish, Dr. Royal Other Provider Unavailable Maxim, Dr. Kaiser Funez Primary Care Provider Maxim, Dr. Kaiser Funez Primary Care Provider Dr. Juan Jeronimo Attending Provider Maxim, Dr. Kaiser Funez Primary Care Provider Maxim, Dr. Kaiser Funez Referring Provider Roof WILTON WEAVER, BLADIMIR-Figueroa Iglesias Attending Provider Dr. Catie Carballo Emergency Provider Kormraio, Dr. Jane Lala Admit Provider Kormario, Dr. Jane Lala Other Provider Dr. Sayra Perry Attending Provider Kormario, Dr. Jane Lala Attending Provider Maxim, Dr. Kaiser Funez Primary Care Provider Dr. Catie Carballo Emergency Provider Kormario, Dr. Jane Lala Admit Provider Kormario, Dr. Jane Lala Other Provider Orlando, Dr. Sayra Estrada Attending Provider Koram, Dr. Jane Lala Attending Provider Maxim, Dr. Kaiser Funez Primary Care Provider [phone] Maxim, Dr. Kaiser Funez Referring Provider Bryce, Dr. Prather Attending Provider Bryce, Dr. Prather Referring Provider Bryce, Dr. Prather Other Provider Akash WILTON WEAVER, WILTON WEAVER-C Neelam Attending Provider Maxim, Dr. Kaiser Funez Primary Care Provider Maxim, Dr. Kaiser Funez Referring Provider Bryce, Dr. Prather Attending Provider Bryce, Dr. Prather Referring Provider Bryce, Dr. Prather Other Provider Akash WILTON WEAVER, WILTON WEAVER-Figueroa Richter Attending Provider Daryl, Dr. Dugan Attending Provider Maxim HERNANDEZ, Dr. Kaiser Funez Primary Care Provider Maxim HERNANDEZ, Dr. Kaiser Funez Attending Provider [phone] Maxim HERNANDEZ, Dr. Kaiser Funez Referring Provider [phone] Jose Sharp DO Emergency Provider 1([phone] Maxim, Kaiser Chi Attending Unavailable Maxim, [facility] Chi Primary Care Unavailable Maxim, Kaiser Chi Referring Unavailable Maxim, Kaiser Chi Attending Unavailable Maxim, [facility] Chi Primary Care Unavailable Maxim, Kaiser Chi Referring Unavailable Roof WILTON WEAVER, Paulino Iglesias Consulting Unavailable Maxim, Kaiser Chi Referring Unavailable Maxim, Kaiser Chi Attending Unavailable Maxim, [facility] Chi Primary Care Unavailable Sementi, Mallory Kirkland Attending Unavaila ble Sementi, Mallory Kirkland Referring Unavaila ble Maxim, [facility] Chi Primary Care Unavailable Kolby Mantilla Consulting Unavailable Sementi, Mallory Kirkland Admitting Unavaila ble Jose Sharp Attending Unavailable Maxim, [facility] Chi Primary Care Unavailable Sementi, Janelle Consulting Unavaila ble Maxim, Kaiser Chi Attending Unavailable Maxim, [facility] Chi Primary Care Unavailable Maxim, Kaiser Chi Referring Unavailable Maxim, Kaiser Chi Referring Unavailable Maxim, Kaiser Chi Attending Unavailable Maxim, [facility] Primary Care Unavailable Maxim, [facility] Chi Attending Unavailable Maxim, [facility] Chi Primary Care Unavailable Maxim, Kaiser Chi Referring Unavailable Maxim, [facility] Chi Primary Care Unavailable Maxim, Kaiser Chi Attending Unavailable Maxim, Kaiser Chi Referring Unavailable Roof Paulino GARRISON Attending Unavailable Maxim, [facility] Chi Primary Care Unavailable Maxim, Kaiser Chi Referring Unavailable Maxim, Kaiser Chi Attending Unavailable Maxim, [facility] Chi Primary Care Unavailable Maxim, Kaiser Chi Referring Unavailable Maxim, Kaiser Chi Attending Unavailable Maxim, [facility] Primary Care Unavailable Anahi Flynn Attending Melissa Sharp DO, Dr. Garcia Attending Provider Bautista POSEY, Dr. Mallory Kirkland Admit Provider Bautista POSEY, Dr. Mallory Kirkland Attending Provide r Bautista POSEY, Dr. Mallory Kirkland Referring Provide r Dr. Kolby Mantilla MD Other Provider Bautista POSEY, Dr. Mallory Kirkland Other Provider Anahi Dotson Attending Provide r Allergies Allergy Classification Reported Allergen(s) Allergy Type Date of Onset Reaction(s) Facility (18 sources) [facility] Drug Allergy 10-27-2021 Other [facility] Comment on above: DIZZINESS, WEAKNESS, LIGHT HEADEDNESS (1 source) traMADol Drug Allergy 01-10-2025 [facility] Repository Medications Current Medications Medication Drug Class(es) Dates Sig (Normalized) Sig (Original) acetaminophen 500 mg oral tablet (20 sources) Start: 01-23-2025 take 2 tablets by mouth every eight hours Acetaminophen 500 mg Tablet Active 1000 mg PO EVERY 8 HOURS 1 0 January 23, 2025 12:00am Start: 11-05-2021 End: 01-11-2025 take 2 tablets by mouth every six hours as needed for pain Acetaminophen 500 mg Tablet Discontinued 1000 mg PO EVERY 6 HOURS NEEDED as needed for Pain Score 1-10 0 0 November 05, 2021 12:00am January 11, 2025 10:38am Start: 11-05-2021 take 1000 mg by mout h every six hours as needed Acetaminophen Active 1000 MG PO EVERY 6 HOURS NEEDED 0 November 05, 2021 12:00am Start: 02-10-2018 End: 07-04-2018 Acetaminophen 500 MG tablet Discontinued 650 mg PO EVERY 8 HOURS as needed for Pain February 10, 2018 12:35pm July 04, 2018 5:08pm Start: 02-10-2018 End: 07-04-2018 take 650 mg by mouth every eight hours Acetaminophen Discontinued 650 MG PO EVERY 8 HOURS February 10, 2018 12:35pm July 04, 2018 5:08pm Start: 02-08-2018 End: 02-10-2018 take 2 tablets by mouth every eight hours Acetaminophen 500 MG tablet Discontinued 1000 mg PO EVERY 8 HOURS 90 0 February 08, 2018 12:00am February 10, 2018 12:36pm Start: 02-08-2018 End: 02-10-2018 take 1000 mg by mouth every eight hours Acetaminophen Discontinued 1000 MG PO EVERY 8 HOURS 90 February 08, 2018 12:00am February 10, 2018 12:36pm aspirin 81 mg delayed release oral tablet (20 sources) Platelet Aggregation Inhibitor, Nonsteroidal Anti-inflammatory Drug Start: 07-04-2018 Aspirin (Marisela Lo w Dose Aspirin) 81 mg tablet,delayed release (DR/EC) Active 81 mg PO DAILY July 04, 2018 1:00am Conformity Start: 02-08-2018 End: 07-04-2018 take 1 tablet by mouth twice daily at mealtime Aspirin 325 MG tablet Discontinued 325 mg PO TWICE DAILY WITH MEALS February 10, 2018 12:35pm July 04, 2018 5:04pm prophylactic measure Start: 03-06-2016 End: 02-08-2018 take 1 tablet by mouth once daily Aspirin 81 MG tablet,chewable Discontinued 81 mg PO DAILY March 06, 2016 12:00am February 08, 2018 10:39am [facility] bisacodyl 10 mg rectal suppository (1 source) Stimulant Laxative Start: 01-23-2025 Bisacodyl 10 mg Suppository Active 10 mg RC ONE TIME as needed for Constipation 1 0 January 23, 2025 12:00am celecoxib 200 mg oral capsule (1 source) Nonsteroidal Anti-inflammatory Drug Start: 01-23-2025 take 1 capsule by mouth once daily Celecoxib 200 mg Capsule Active 200 mg PO DAILY 1 January 23, 2025 12:00am cephalexin 500 mg oral capsule (1 source) Cephalosporin Antibacterial Start: 01-24-2025 take 1 capsule by mouth every twelve hours Cephalexin 500 mg Capsule Active 500 mg PO EVERY 12 HOURS 16 8 January 24, 2025 12:00am docusate sodium 50 mg / sennosides, nursing home 8.6 mg oral tablet (19 sources) Start: 01-23-2025 Sennosides-Docusat e Sodium (Stimulant Laxative Plus) 8.6-50 mg Tablet Active 2 {tbl} PO TWICE A DAY 1 January 23, 2025 12:00am Start: 05-21-2019 End: 07-16-2019 Sennosides-Docusate Sodium 1 TABLET tablet Discontinued 2 {tbl} PO TWICE A DAY 120 0 May 21, 2019 1:00am July 16, 2019 4:44pm Start: 05-21-2019 End: 07-16-2019 take 2 tablets by mouth twice daily Sennosides-Docusate Sodium Discontinued 2 TABLET PO TWICE A DAY 120 May 21, 2019 1:00am July 16, 2019 4:44pm 0.4 ml enoxaparin sodium 100 mg/ml prefilled syringe (1 source) Low Molecular Weight Heparin Start: 01-23-2025 Enoxaparin 40 mg/0.4 mL Syringe Active 40 mg SC DAILY@0600 1 January 23, 2025 12:00am hydrocortisone acetate 25 mg rectal suppository (1 source) Corticosteroid Start: 01-23-2025 Hydrocortisone Acetate 25 mg Suppository Active 25 mg RC TWICE DAILY NEEDED as needed for Hemorrhoids 1 0 January 23, 2025 12:00am latanoprost 0.05 mg/ml ophthalmic solution (1 source) Prostaglandin Analog Start: 01-11-2025 Latanoprost 0.005 % drops Active 1 NMA OPHTHALMIC AT BEDTIME January 11, 2025 12:00am [facility] lisinopril 2.5 mg oral tablet (1 source) Angiotensin Converting Enzyme Inhibitor Start: 01-23-2025 take 1 tablet by mouth once daily Lisinopril 2.5 mg Tablet Active 2.5 mg PO DAILY 1 January 23, 2025 12:00am Magnesium Hydroxide (1 source) Start: 01-23-2025 take 1 mL by mouth once as needed for constipation Magnesium Hydroxide 400 mg/5 mL Suspension Active 30 mL PO ONE TIME as needed for Constipation 1 0 January 23, 2025 12:00am Menthol / Zinc Oxide (20 sources) Start: 01-23-2025 Menthol-Zinc Oxide (Calmoseptine) 0.44-20.6 % Ointment Active 1 NMA TOPICAL TWICE A DAY 1 0 January 23, 2025 12:00am Please contact the information source for Protocol details. Start: 10-25-2021 End: 11-05-2021 Menthol-Zinc Oxide (Calmosep omer) 0.44-20.6 % ointment Discontinued 1 APPLIC TOPICAL DAILY October 25, 2021 8:01pm November 05, 2021 8:05am Start: 10-25-2021 Menthol-Zinc O xide (Calmoseptine) 0.44-20.6 % ointment Active 1 APPLIC TOPICAL DAILY October 25, 2021 8:01pm Start: 10-25-2021 End: 11-05-2021 Menthol-Zinc Oxide (Calmosep omer) 0.44-20.6 % ointment Discontinued 1 NMA TOPICAL DAILY as needed for wound healing October 25, 2021 12:00am November 05, 2021 8:05am Start: 10-25-2021 End: 11-05-2021 Menthol-Zinc Oxide (Calmosep omer) 0.44-20.6 % ointment Discontinued 1 APPLIC TOPICAL DAILY October 24, 2021 11:00pm November 05, 2021 7:05am Start: 10-25-2021 End: 11-05-2021 Menthol-Zinc Oxide (Calmosep omer) 0.44-20.6 % ointment Discontinued 1 APPLIC TOPICAL DAILY October 25, 2021 12:00am November 05, 2021 8:05am Start: 05-21-2019 End: 03-17-2020 Menthol-Zinc Oxide 1 APPLIC ointment Discontinued 1 NMA TOPICAL TWICE A DAY 0 May 21, 2019 1:00am March 17, 2020 3:18pm Please contact the information source for Protocol details. Start: 05-21-2019 End: 03-17-2020 Menthol-Zinc Oxide Discontin ued 1 APPLIC TOPICAL TWICE A DAY May 21, 2019 1:00am March 17, 2020 3:18pm Multivitamin preparation (20 sources) Start: 04-15-2022 take 1 tablet by mouth once daily Multivitamin Active 1 TABLET PO DAILY April 15, 2022 12:00am Start: 04-15-2022 take 1 tablet by irma th once daily Multivitamin Active 1 TABLET PO DAILY April 14, 2022 11:00pm Start: 08-18-2021 End: 11-05-2021 take 1 tablet by mouth once daily Multivitamin Discontinued 1 TABLET PO DAILY August 18, 2021 3:31pm November 05, 2021 8:04am Start: 08-18-2021 take 1 tablet by irma th once daily Multivitamin Active 1 TABLET PO DAILY August 18, 2021 3:31pm Start: 08-18-2021 End: 11-05-2021 take 1 tablet by mouth once daily Multivitamin Discontinued 1 TABLET PO DAILY August 18, 2021 12:00am November 05, 2021 7:04am Start: 08-18-2021 End: 11-05-2021 take 1 tablet by mouth once daily Multivitamin Discontinued 1 TABLET PO DAILY August 18, 2021 1:00am November 05, 2021 8:04am Start: 01-10-2018 End: 05-21-2019 Multivitamin Discontinued 1 EACH PO DAILY January 10, 2018 3:09pm May 21, 2019 8:58pm Start: 01-10-2018 End: 05-21-2019 Multivitamin Discontinued 1 EACH PO DAILY January 09, 2018 11:00pm May 21, 2019 7:58pm Start: 01-10-2018 End: 05-21-2019 Multivitamin Discontinued 1 EACH PO DAILY January 10, 2018 12:00am May 21, 2019 8:58pm Multivitamin tablet (4 sources) Start: 04-15-2022 Multivitamin t ablet Active 1 {tbl} PO DAILY April 15, 2022 12:00am supplement Start: 04-15-2022 Multivitamin t ablet Active 1 {tbl} PO DAILY April 15, 2022 12:00am Start: 08-18-2021 End: 11-05-2021 Multivitamin tablet Disconti nued 1 {tbl} PO DAILY August 18, 2021 1:00am November 05, 2021 8:04am Supplement nitroglycerin 0.4 mg sublingual tablet (20 sources) Nitrate Vasodilator Start: 08-31-2022 End: 07-17-2024 Nitroglycerin 0.4 mg tablet, sublingual Active 0.4 mg SL every 5 to 15 minutes as needed for Chest Pain 18 09July 17, 2024 2:27pm Start: 08-31-2022 Nitroglycerin Active 0.4 MG SL every 5 to 15 minutes August 31, 2022 4:32pm Start: 03-06-2016 End: 08-31-2022 Nitroglycerin 0.4 mg tablet, sublingual Discontinued 0.4 mg SL Q5M as needed for Chest Pain 18 09February 19, 2021 3:53pm August 31, 2022 4:32pm Start: 03-06-2016 End: 08-31-2022 Nitroglycerin Discontinued 0 .4 MG SL Q5M February 19, 2021 3:53pm August 31, 2022 4:32pm nystatin 100 unt/mg topical powder (19 sources) Polyene Antifungal Start: 01-23-2025 Nystatin 10 0,000 unit/gram Powder Active 1 NMA TOPICAL 0600,2200 1 0 January 23, 2025 12:00am Please contact the information source for Protocol details. Start: 05-21-2019 End: 07-16-2019 Nystatin 1 APPLIC bottle Dis continued 1 NMA TOPICAL TWICE A DAY 0 May 21, 2019 1:00am July 16, 2019 4:44pm Please contact the information source for Protocol details. Start: 05-21-2019 End: 07-16-2019 Nystatin Discontinued 1 APPL IC TOPICAL TWICE A DAY May 21, 2019 1:00am July 16, 2019 4:44pm omeprazole 40 mg delayed release oral capsule (18 sources) Proton Pump Inhibitor Start: 07-04-2018 take 1 capsule by mouth once daily Omeprazole 40 mg capsule,delayed release(DR/EC) Active 40 mg PO DAILY July 04, 2018 1:00am acid reflux oxyCODONE hydrochloride 5 mg oral tablet (19 sources) Opioid Agonist Start: 01-23-2025 take 1 tablet by mouth every six hours as needed for pain Oxycodone 5 mg tablet Active 5 mg PO EVERY 6 HOURS as needed for pain 1 1 0 January 23, 2025 Fracture of multiple ribs Start: 02-08-2018 End: 02-24-2018 take 5-10 mg by mouth every four hours as needed for pain Oxycodone 5 MG tablet Discontinued 5 - 10 mg PO EVERY 4 HOURS NEEDED as needed for Mod-Severe Pain (4-10/10) 84 7 0 February 08, 2018 12:00am February 24, 2018 8:48am Acute postoperative pain of right knee Other acute postprocedural pain Petrolatum (1 source) Start: 01-23-2025 Petrolatum 33% (Eucerin Eqivalent) Active 1 NMA TOPICAL AT BEDTIME 1 0 January 23, 2025 12:00am APPLY FROM THE KNEES TO THE BASE OF THE TOES AT HS 12 hr ranolazine 1000 mg extended release oral tablet (20 sources) Anti-angin al Start: 07-17-2024 take 1 tablet by mouth every twelve hours Ranolazine 1,000 mg tablet extended release 12 hr Active 1000 mg PO Q12H July 17, 2024 2:10pm Heart Start: 06-23-2017 End: 07-17-2024 Ranolazine 1,000 mg tablet e xtended release 12 hr Discontinued 0 .ROUTE .COMPLEX 180 3 July 09, 2024 2:22pm July 17, 2024 2:12pm TAKE 1 TABLET TWICE A DAY FOR HEART Start: 03-06-2016 End: 06-23-2017 take 1 tablet by mouth twice daily Ranolazine 500 MG tablet Discontinued 500 mg PO TWICE A DAY March 06, 2016 12:00am June 23, 2017 2:16pm Saliva Substitute Combo No.9 (Biotene Dry Mouth Oral Rinse) Mouthwash (1 source) Start: 01-23-2025 take 1 mL by mouth five times daily as needed Saliva Substitute Combo No.9 (Biotene Dry Mouth Oral Rinse) Mouthwash Active 15 mL MUCOUS MEM 5 TIMES DAILY as needed for Dry Mouth 1 0 January 23, 2025 12:00am tamsulosin hydrochloride 0.4 mg oral capsule (18 sources) alpha-Adrenergi c Sariah Start: 03-06-2016 take 1 capsule by mouth once daily Tamsulosin 0.4 MG capsule Active 0.4 mg PO DAILY March 06, 2016 12:00am URINE FLOW Completed/Discontinued Medications Medication Drug Class(es) Dates Sig (Normalized) Sig (Original) acetaminophen 325 mg / HYDROcodone bitartrate 5 mg oral tablet (20 sources) Opioid Agonist Start: 01-10-2025 End: 01-23-2025 Hydrocodone-Acetami nophen 5-325 mg tablet Discontinued 1 {tbl} PO EVERY 6 HOURS NEEDED as needed for Pain 10 3 0 January 10, 2025 January 23, 2025 2:54pm Fracture of multiple ribs Start: 04-01-2020 End: 04-04-2020 Hydrocodone-Acetaminophen 1 TABLET tablet Discontinued 1 {tbl} PO EVERY 6 HOURS NEEDED as needed for Pain 10 3 0 April 01, 2020 April 03, 2020 12:00am April 04, 2020 12:03am Strain of lumbar region Strain of muscle, fascia and tendon of lower back, initial encounter Start: 04-01-2020 End: 04-04-2020 take 1 tablet by mouth every six hours as needed Hydrocodone-Acetaminophen Discontinued 1 TABLET PO EVERY 6 HOURS NEEDED 10 3 April 01, 2020 April 04, 2020 12:03am [id number] 200 actuat albuterol 0.09 mg/actuat metered dose inhaler (18 sources) beta2-Adrenergic Agonist Start: 04-01-2020 End: 08-22-2020 Albuterol Sulfate 1 INHALER inhaler Discontinued 1 - 2 NMA INHALATION EVERY 4 HOURS NEEDED as needed for Wheezing 1 0 April 01, 2020 12:00am August 22, 2020 4:33pm Start: 04-01-2020 End: 08-22-2020 take 1 puff(s) by inhalation every four hours as needed Albuterol Sulfate Discontinued 1 - 2 PUFF INHALATION EVERY 4 HOURS NEEDED April 01, 2020 12:00am August 22, 2020 4:33pm amLODIPine 10 mg oral tablet (20 sources) Dihydropyridine Calcium Channel Sariah Start: 12-19-2017 End: 01-25-2018 take 5 mg by mouth once daily Amlodipine 10 mg tablet Discontinued 5 mg PO daily 11 05December 19, 2017 1:55pm January 10, 2018 3:22pm Start: 12-19-2017 End: 01-25-2018 take 5 mg by mouth once daily Amlodipine Discontinued 5 MG PO daily December 19, 2017 1:55pm January 10, 2018 3:22pm Start: 06-23-2017 End: 12-19-2017 take 1 tablet by mouth once daily Amlodipine 5 MG tablet Discontinued 5 mg PO DAILY June 23, 2017 2:16pm December 19, 2017 1:54pm Start: 03-06-2016 End: 06-23-2017 take 2 tablets by mouth once daily Amlodipine 5 MG tablet Discontinued 10 mg PO DAILY March 06, 2016 12:00am June 23, 2017 2:21pm Start: 03-06-2016 End: 06-23-2017 take 10 mg by mouth once daily Amlodipine Discontinued 10 MG PO DAILY March 06, 2016 12:00am June 23, 2017 2:21pm amoxicillin 875 mg / clavulanate 125 mg oral tablet (18 sources) Penicillin-class Antibacterial Start: 02-24-2018 End: 07-04-2018 take 1 tablet by mouth twice daily at mealtime Amoxicillin-Pot Clavulanate 875 MG tablet Discontinued 875 mg PO TWICE DAILY WITH MEALS 15 8 0 February 24, 2018 12:00am July 04, 2018 5:06pm Stop date 03/03/18 apixaban 2.5 mg oral tablet (11 sources) Factor Xa Inhibitor Start: 01-23-2023 End: 07-13-2023 take 1 tablet by mouth twice daily Apixaban (Eliquis) 2.5 mg tablet Discontinued 2.5 mg PO TWICE A DAY January 23, 2023 12:00am July 13, 2023 2:57pm atorvastatin 40 mg oral tablet (18 sources) HMG-CoA Reductase Inhibitor Start: 06-26-2018 End: 07-17-2024 take 1 tablet by mouth at bedtime Atorvastatin 40 mg tablet Discontinued 40 mg PO AT BEDTIME June 26, 2018 1:00am July 17, 2024 2:10pm cholesterol clopidogrel 75 mg oral tablet (20 sources) [id number] Platelet Inhibitor Start: 01-21-2024 End: 07-17-2024 take 1 tablet by mouth once daily Clopidogrel (Plavix) 75 mg tablet Discontinued 75 mg PO DAILY January 21, 2024 12:00am July 17, 2024 2:11pm Start: 03-06-2016 End: 06-28-2017 take 1 tablet by mouth once daily Clopidogrel 75 MG tablet Discontinued 75 mg PO DAILY June 28, 2017 3:26pm June 28, 2017 3:28pm cyclobenzaprine hydrochloride 10 mg oral tablet (18 sources) Muscle Relaxant Start: 03-06-2016 End: 06-23-2017 take 1 tablet by mouth twice daily Cyclobenzaprine 10 MG tablet Discontinued 10 mg PO TWICE A DAY March 06, 2016 12:00am June 23, 2017 2:21pm dexamethasone 6 mg oral tablet (11 sources) Corticosteroid Start: 01-23-2023 End: 02-03-2023 take 1 tablet by mouth once daily Dexamethasone 6 mg tablet Discontinued 6 mg PO DAILY 8 0 January 23, 2023 12:00am February 03, 2023 7:40pm famotidine 40 mg oral tablet (18 sources) Histamine-2 Receptor Antagonist Start: 01-25-2018 End: 07-04-2018 take 1 tablet by mouth once daily Famotidine 40 mg tablet Discontinued 40 mg PO daily January 25, 2018 12:00am July 04, 2018 5:07pm heartburn furosemide 40 mg oral tablet (20 sources) Loop Diuretic Start: 04-15-2022 End: 01-23-2025 take 1 tablet by mouth once daily Furosemide 40 mg tablet Discontinued 40 mg PO DAILY November 18, 2022 2:10pm January 23, 2025 2:54pm edema Start: 02-19-2021 End: 11-05-2021 take 1 tablet by mouth once daily as needed for edema Furosemide (Lasix) 40 mg tablet Discontinued 40 mg PO DAILY as needed for Edema August 18, 2021 3:32pm November 05, 2021 8:04am Start: 01-18-2020 End: 01-18-2020 take 1 tablet by mouth once daily Furosemide (Lasix) 20 mg tablet Discontinued 20 mg PO DAILY January 18, 2020 12:00am January 18, 2020 2:18pm gabapentin 100 mg oral capsule (20 sources) Anti-epileptic Agent Start: 05-11-2019 End: 05-21-2019 take 2 capsules by mouth at bedtime Gabapentin 100 MG capsule Discontinued 200 mg PO AT BEDTIME May 11, 2019 1:00am May 21, 2019 8:58pm nerve pain Start: 05-11-2019 End: 05-21-2019 take 200 mg by mouth at bedtime Gabapentin Discontinue d 200 MG PO AT BEDTIME May 11, 2019 1:00am May 21, 2019 8:58pm Start: 03-06-2016 End: 06-23-2017 take 1 capsule by mouth three times daily at mealtime Gabapentin 300 MG capsule Discontinued 300 mg PO 3 TIMES DAILY WITH MEALS March 06, 2016 12:00am June 23, 2017 2:21pm Handicap Placard (20 sources) Start: 02-19-2019 End: 02-19-2019 Handicap Placard Discontinue d 1 0 February 19, 2019 2:51pm February 19, 2019 2:52pm Good from 02/19/19 - 02/20/24 Start: 02-19-2019 End: 02-19-2019 Handicap Placard Discontinue d 1 February 19, 2019 1:51pm February 19, 2019 1:52pm Good from 02/19/19 - 02/20/24 Start: 02-19-2019 End: 02-19-2019 Handicap Placard Discontinue d 1 February 19, 2019 2:51pm February 19, 2019 2:52pm Good from 02/19/19 - 02/20/24 Start: 02-19-2019 End: 02-19-2019 Handicap Placard Discontinue d 1 February 19, 2019 2:50pm February 19, 2019 2:51pm Good from 02/19/19 - 02/20/24 Start: 02-19-2019 End: 02-19-2019 Handicap Placard Discontinue d 1 0 February 19, 2019 12:00am February 19, 2019 2:51pm Good from 02/19/19 - 02/20/24 Start: 02-19-2019 End: 02-19-2019 Handicap Placard Discontinue d 1 February 18, 2019 11:00pm February 19, 2019 1:51pm Good from 02/19/19 - 02/20/24 Start: 02-19-2019 End: 02-19-2019 Handicap Placard Discontinue d 1 February 19, 2019 12:00am February 19, 2019 2:51pm Good from 02/19/19 - 02/20/24 hydroCHLOROthiazide 25 mg oral tablet (18 sources) Thiazide Diuretic Start: 06-23-2017 End: 01-25-2018 take 1 tablet by mouth once daily Hydrochlorothiazide 25 mg tablet Discontinued 25 mg PO daily 90 90 0 June 23, 2017 1:00am January 25, 2018 9:53am BP isosorbide dinitrate 10 mg oral tablet (18 sources) Nitrate Vasodilator Start: 06-23-2017 End: 01-25-2018 Isosorbide Dinitrate 10 mg tablet Discontinued 5 mg PO ONCE 15 30 0 June 23, 2017 1:00am January 25, 2018 9:53am BP linaclotide 0.145 mg oral capsule (18 sources) Guanylate Cyclase-C Agonist Start: 03-06-2016 End: 06-23-2017 take 1 capsule by mouth once daily Linaclotide 145 MCG capsule Discontinued 145 ug PO DAILY March 06, 2016 12:00am June 23, 2017 2:20pm meclizine hydrochloride 12.5 mg oral tablet (20 sources) Antiemetic Start: 05-14-2019 End: 03-17-2020 take 1 tablet by mouth four times daily as needed Meclizine 12.5 MG tablet Discontinued 12.5 mg PO 4 TIMES DAILY NEEDED as needed for Vertigo 120 0 May 21, 2019 8:58pm March 17, 2020 3:19pm melatonin 10 mg extended release oral tablet (18 sources) Start: 05-21-2019 End: 03-17-2020 take 1 tablet by mouth at bedtime Melatonin 10 MG tablet Discontinued 10 mg PO AT BEDTIME 0 May 21, 2019 1:00am March 17, 2020 3:20pm meloxicam 7.5 mg oral tablet (18 sources) Nonsteroidal Anti-inflammator y Drug Start: 06-23-2017 End: 01-25-2018 take 1 tablet by mouth twice daily Meloxicam 7.5 mg tablet Discontinued 7.5 mg PO TWICE A DAY 180 90 0 June 23, 2017 1:00am January 25, 2018 9:53am ARTHRITIS metoclopramide 10 mg oral tablet (18 sources) Dopamine-2 Receptor Antagonist Start: 10-25-2021 End: 11-05-2021 take 1 tablet by mouth every six hours as needed for nausea and vomiting Metoclopramide Hcl 10 MG tablet Discontinued 10 mg PO EVERY 6 HOURS as needed for nausea and vomiting 20 0 October 25, 2021 7:45pm November 05, 2021 8:04am metoprolol tartrate 25 mg oral tablet (20 sources) beta-Adrenergic Sariah Start: 06-23-2017 End: 06-23-2018 take 1 tablet by mouth twice daily Metoprolol Tartrate 25 MG tablet Discontinued 25 mg PO TWICE A DAY June 23, 2017 2:15pm June 23, 2018 5:20pm HEART Start: 03-06-2016 End: 06-23-2017 Metoprolol Tartrate 25 MG ta blet Discontinued 12.5 mg PO TWICE A DAY March 06, 2016 12:00am June 23, 2017 2:21pm Start: 03-06-2016 End: 06-23-2017 take 12.5 mg by mouth twice daily Metoprolol Tartrate Discontinued 12.5 MG PO TWICE A DAY March 06, 2016 12:00am June 23, 2017 2:21pm Multivitamin 1 EACH tablet (2 sources) Start: 01-10-2018 End: 05-21-2019 Multivitamin 1 EACH tablet Discontinued 1 NMA PO DAILY January 10, 2018 12:00am May 21, 2019 8:58pm SUPPLEMENT 12 hr orphenadrine citrate 100 mg extended release oral tablet (18 sources) Muscle Relaxant Start: 04-01-2020 End: 08-18-2021 take 1 tablet by mouth at bedtime as needed for muscle spasms Orphenadrine Citrate 100 MG tablet Discontinued 100 mg ORAL AT BEDTIME NEEDED as needed for Muscle Spasm 10 0 April 01, 2020 11:08am August 18, 2021 3:33pm pantoprazole 40 mg delayed release oral tablet (18 sources) Proton Pump Inhibitor Start: 06-23-2017 End: 01-25-2018 take 1 tablet by mouth once daily Pantoprazole 40 mg tablet,delayed release (DR/EC) Discontinued 40 mg PO daily 90 90 0 June 23, 2017 1:00am January 25, 2018 8:52am ACID REFLUX polyethylene glycol 3350 61107 mg powder for oral solution (20 sources) Osmotic Laxative Start: 04-01-2020 End: 08-22-2020 take 17 g by mouth once daily Polyethylene Glycol 3350 17 GM packet Discontinued 17 g PO DAILY April 01, 2020 12:00am August 22, 2020 4:34pm Start: 05-21-2019 End: 03-17-2020 take 17 g by mouth twice daily Polyethylene Glycol 335 0 17 GM packet Discontinued 17 g PO TWICE A DAY 60 0 May 21, 2019 1:00am March 17, 2020 3:18pm potassium chloride 20 meq extended release oral tablet (18 sources) Start: 07-04-2018 take 1 tablet by mouth once daily Potassium Chloride 20 mEq tablet extended release Active 20 meq PO DAILY July 04, 2018 1:00am supplement On Hold: He is no longer taking Lasix. Resume if he takes Lasix pravastatin sodium 80 mg oral tablet (18 sources) HMG-CoA Reductase Inhibitor Start: 03-29-2016 End: 10-12-2017 take 1 tablet by mouth at bedtime Pravastatin 80 MG tablet Discontinued 80 mg PO AT BEDTIME March 29, 2016 12:00am October 12, 2017 4:57pm predniSONE 10 mg oral tablet (20 sources) Start: 05-14-2019 End: 05-21-2019 Prednisone 10 MG tablet Discontinued 10 mg PO DIRECTED May 15, 2019 3:13pm May 21, 2019 8:58pm steroid TAKE 4 TABLETS BY MOUTH DAILY WITH FOOD FOR 2 DAYS, THEN TAKE 3 TABLETS BY MOUTH DAILY WITH FOOD FOR 3 DAYS, THEN TAKE 2 TABLETS BY MOUTH DAILY WITH FOOD FOR 3 DAYS, THEN TAKE 1 TABLETS BY MOUTH DAILY WITH FOOD FOR 3 DAYS, THEN STOP simethicone 180 mg oral capsule (18 sources) Start: 01-09-2019 End: 05-21-2019 take 1 capsule by mouth twice daily Simethicone 180 mg capsule Discontinued 180 mg PO TWICE A DAY January 09, 2019 12:00am May 21, 2019 8:58pm stomach simvastatin 80 mg oral tablet (18 sources) HMG-CoA Reductase Inhibitor Start: 01-10-2018 End: 01-25-2018 take 1 tablet by mouth once daily Simvastatin 80 MG tablet Discontinued 80 mg PO DAILY January 10, 2018 12:00am January 25, 2018 8:54am CHOLESTEROL traMADol hydrochloride 50 mg oral tablet (18 sources) Opioid Agonist Start: 01-09-2019 End: 05-21-2019 take 50-100 mg by mouth every six hours as needed for pain Tramadol 50 mg tablet Discontinued 50 - 100 mg PO EVERY 6 HOURS NEEDED as needed for Pain Or Fever January 09, 2019 12:00am May 21, 2019 8:58pm Problems Active Problems Problem Classification Problem Date Documented Da te Episodic/Chronic Abdominal pain (20 sources) Epigastric pain; Translations: [Epigastric pain] Episodic Cardiac dysrhythmias (20 sources) Atrial flutter; Translations: [Unspecified atrial flutter] Onset: 08-22-2020 Chronic Cardiac dysrhythmias (17 sources) Palpitations; Translations: [Palpitations] 03-05-2018 Episodic Chronic kidney disease (2 sources) Chronic kidney disease stage 3A ; Translations: [Chronic renal failure, stage 3a] 01-11-2025 Chronic Chronic kidney disease (1 source) Chronic kidney disease; Translations: [Chronic kidney disease, stage 3a] Onset: Chronic ulcer of skin (18 sources) Pressure ulcer of buttock stage 1; Translations: [Pressure ulcer of left buttock, stage 1] 10-25-2021 Chronic Coagulation and hemorrhagic disorders (3 sources) Thrombocytopenia, unspecified; Translations: [Thrombocytopenic disorder] Onset: 5 01-23-2025 Chronic Complication of device; implant or graft (18 sources) Arteriosclerosis of coronary artery bypass graft; Translations: [Atherosclerosis of coronary artery bypass graft(s), unspecified, with other forms of angina pectoris] 03-05-2018 Chronic Conditions associated with dizziness or vertigo (20 sources) Benign paroxysmal positional vertigo; Translations: [Benign paroxysmal vertigo, unspecified ear] 08-20-2019 Episodic Congestive heart failure; nonhypertensive (4 sources) Chronic diastolic (congestive) heart failure; Translations: [Unspecified diastolic (congestive) heart failure] Onset: 5 01-23-2025 Chronic Coronary atherosclerosis and other heart disease (20 sources) Prinzmetal angina; 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] Chronic Disorders of lipid metabolism (20 sources) Pure hypercholesterolemia; Translations: [Pure hypercholesterolemia, unspecified] Chronic E Codes: Fall (20 sources) Fall; Translations: [Unspecified fall, initial encounter] Onset: 5 Episodic Esophageal disorders (20 sources) Gastroesophageal reflux disease; Translations: [Gastro-esophageal reflux disease without esophagitis] Onset: Chronic Essential hypertension (20 sources) Essential hypertension; Translations: [Essential (primary) hypertension] Onset: 5 Chronic Fluid and electrolyte disorders (20 sources) Mild dehydration; Translations: [Dehydration] Episodic Gastritis and duodenitis (18 sources) Acute gastritis; Translations: [Acute gastritis without bleeding] 11-02-2021 Episodic Genitourinary symptoms and ill-defined conditions (3 sources) Retention of urine, unspecified; Translations: [Retention of urine] Onset: 5 01-23-2025 Episodic Comment on above: voiding trial schedu led for 01/24/25. Heart valve disorders (20 sources) Aortic stenosis, non-rheumatic ; Translations: [Nonrheumatic aortic (valve) stenosis] Onset: 5 04-15-2022 Chronic Hemorrhoids (3 sources) Unspecified hemorrhoids; Translations: [Hemorrhoids] Onset: 5 01-16-2025 Episodic Hyperplasia of prostate (20 sources) Benign prostatic hyperplasia; Translations: [Benign prostatic hyperplasia without lower urinary tract symptoms] Chronic Malaise and fatigue (20 sources) Fatigue; Translations: [Other fatigue] Onset: 4 Episodic Nonspecific chest pain (20 sources) Precordial pain; Translations: [Precordial pain] 03-05-2018 Episodic Nutritional deficiencies (1 source) Vitamin D deficiency, unspecified; Translations: [Vitamin D deficiency, unspecified] Onset: 5 Chronic Open wounds of head; neck; and trunk (18 sources) Laceration of head; Translations: [Laceration without foreign body of unspecified part of head, initial encounter] 08-20-2019 Episodic Other bone disease and musculoskeletal deformities (20 sources) Segmental and somatic dysfunction; Translations: [Segmental and somatic dysfunction of cervical region] 03-06-2020 Episodic Other circulatory disease (17 sources) H/O: atrial fibrillation; Translations: [Personal history of other diseases of the circulatory system] 01-18-2020 Episodic Other circulatory disease (9 sources) H/O: heart disorder; Translations: [Personal history of other diseases of the circulatory system] 02-11-2023 Episodic Other circulatory disease (5 sources) Personal history of other diseases of the circulatory system; Translations: [Personal history of other diseases of circulatory system] 07-13-2023 Episodic Other connective tissue disease (18 sources) History of total knee arthroplasty; Translations: [Presence of right artificial knee joint] 08-20-2019 Chronic Other connective tissue disease (17 sources) Pain in limb; Translations: [Pain in unspecified limb] 03-05-2018 Episodic Other connective tissue disease (18 sources) Triggering of digit; Translations: [Trigger finger, unspecified finger] 08-20-2019 Episodic Other connective tissue disease (18 sources) Neuropathic pain; Translations: [Neuralgia and neuritis, unspecified] 05-15-2019 Episodic Other diseases of veins and lymphatics (1 source) Venous insufficiency (chronic) (peripheral); Translations: [Venous insufficiency (chronic) (peripheral)] Onset: Episodic Other diseases of veins and lymphatics (2 sources) Peripheral venous insufficiency; Translations: [Venous insufficiency (chronic) (peripheral)] 01-14-2025 Episodic Other ear and sense organ disorders (1 source) Presbycusis; Translations: [Presbycusis, bilateral] 01-11-2025 Episodic Comment on above: Has hearing aids Other fractures (3 sources) Fracture of multiple ribs ; Translations: [Multiple fractures of ribs, unspecified side, initial encounter for closed fracture] 01-10-2025 Episodic Other fractures (1 source) Multiple fractures of ribs, bilateral, initial encounter for closed fracture; Translations: [Multiple fractures of ribs, bilateral, initial encounter for closed fracture] Onset: Episodic Other fractures (1 source) Multiple fractures of ribs, bilateral, subsequent encounter for fracture with routine healing; Translations: [Multiple fractures of ribs, bilateral, subsequent encounter for fracture with routine healing] Onset: 5 Episodic Other gastrointestinal disorders (15 sources) Diarrhea; Translations: [Diarrhea, unspecified] 11-14-2021 Episodic Other gastrointestinal disorders (1 source) Other constipation; Translations: [Other constipation] Onset: Episodic Other gastrointestinal disorders (1 source) Other fecal abnormalities; Translations: [Other fecal abnormalities] Onset: Episodic Other gastrointestinal disorders (2 sources) Chronic constipation; Translations: [Other constipation] 01-23-2025 Episodic Other gastrointestinal disorders (2 sources) Occult blood in stools; Translations: [Other fecal abnormalities] 01-15-2025 Episodic Comment on above: HGB is WNL Other injuries and conditions due to external causes (1 source) Encounter for examination and observation following other accident; Translations: [Encounter for examination and observation following other accident] Onset: 5 Episodic Other lower respiratory disease (18 sources) Dyspnea on exertion; Translations: [Dyspnea, unspecified] 07-04-2018 Episodic Other lower respiratory disease (20 sources) Dyspnea; Translations: [Shortness of breath] 03-05-2018 Episodic Other lower respiratory disease (4 sources) Dyspnea, unspecified; Translations: [Other respiratory abnormalities] Episodic Other lower respiratory disease (20 sources) Hypoxia; Translations: [Hypoxemia] 01-21-2023 Episodic Other lower respiratory disease (4 sources) Hypoxemia; Translations: [Hypoxemia] 01-23-2023 Episodic Other lower respiratory disease (4 sources) Shortness of breath; Translations: [Shortness of breath] 01-23-2023 Episodic Other nervous system disorders (12 sources) Carpal tunnel syndrome; Translations: [Carpal tunnel syndrome, left upper limb] 08-20-2019 Chronic Other nervous system disorders (6 sources) Carpal tunnel syndrome of left wrist; Translations: [Carpal tunnel syndrome, left upper limb] 01-31-2023 Chronic Other non-traumatic joint disorders (7 sources) Shoulder pain; Translations: [Pain in left shoulder] 03-05-2018 Episodic Other non-traumatic joint disorders (11 sources) Pain in left shoulder; Translations: [Left shoulder pain] 03-05-2018 Episodic Other non-traumatic joint disorders (9 sources) Hip pain; Translations: [Pain in right hip] 02-11-2023 Episodic Other nutritional; endocrine; and metabolic disorders (2 sources) Obese class II; Translations: [Class 2 obesity] 01-11-2025 Chronic Other screening for suspected conditions (not mental disorders or infectious disease) (18 sources) Abnormal results of cardiovascular function studies; Translations: [Abnormal result of cardiovascular function study, unspecified] 03-05-2018 Episodic Alisson-; endo-; and myocarditis; cardiomyopathy (except that caused by tuberculosis or sexually transmitted disease) (18 sources) Malignant pericardial effusion; Translations: [Pericardial effusion (noninflammatory)] 03-05-2018 Episodic Peripheral and visceral atherosclerosis (18 sources) Intermittent claudication; Translations: [Peripheral vascular disease, unspecified] 03-05-2018 Chronic Pulmonary heart disease (3 sources) Pulmonary hypertension, unspecified; Translations: [Pulmonary hypertension] Onset: 01-23-2025 Chronic Residual codes; unclassified (18 sources) Obstructive sleep apnea syndrome; Translations: [Obstructive sleep apnea (adult) (pediatric)] 10-03-2019 Chronic Residual codes; unclassified (7 sources) Bilateral lower limb edema; Translations: [Localized edema] 07-13-2023 Episodic Residual codes; unclassified (6 sources) Localized edema; Translations: [Edema] Onset: 5 07-13-2023 Episodic Residual codes; unclassified (1 source) Pain, unspecified; Translations: [Pain, unspecified] Onset: 5 Episodic Residual codes; unclassified (2 sources) Uncontrolled pain; Translations: [Pain, unspecified] 01-23-2025 Episodic Spondylosis; intervertebral disc disorders; other back problems (18 sources) Degeneration of cervical intervertebral disc; Translations: [Other cervical disc degeneration, unspecified cervical region] 03-06-2020 Chronic Spondylosis; intervertebral disc disorders; other back problems (20 sources) Spinal stenosis of lumbar region; Translations: [Spinal stenosis, lumbar region without neurogenic claudication] 04-03-2020 Episodic Sprains and strains (18 sources) Low back strain; Translations: [Strain of muscle, fascia and tendon of lower back, initial encounter] 04-02-2020 Episodic Transient cerebral ischemia (2 sources) Transient cerebral ischemia; Translations: [Transient cerebral ischemic attack, unspecified] 01-29-2024 Chronic Unclassified (1 source) Obesity, class 2; Translations: [Obesity, class 2] Onset: 5 Urinary tract infections (2 sources) Urinary tract infectious disease; Translations: [Urinary tract infection, site not specified] 01-25-2025 Episodic Viral infection (20 sources) Disease caused by 2019-nCoV; Translations: [COVID-19] 01-21-2023 Episodic Past or Other Problems Problem Classification Problem Date Documented Da te Episodic/Chronic Coronary atherosclerosis and other heart disease (13 sources) Coronary angioplasty status; Translations: [Percutaneous transluminal coronary angioplasty status] Onset: 06-27-2004 Episodic Intestinal infection (2 sources) Other specified bacterial intestinal infections; Translations: [Enterocolitis due to Clostridium difficile, not specified as recurrent] Onset: 08-26-2024 Episodic Other gastrointestinal disorders (4 sources) Diarrhea, unspecified; Translations: [Diarrhea] Onset: 08-22-2024 Episodic Pneumonia (except that caused by tuberculosis or sexually transmitted disease) (1 source) Pneumonia, unspecified organism; Translations: [Pneumonia, unspecified organism] Onset: 08-29-2024 Episodic Residual codes; unclassified (18 sources) History of radiofrequency ablation operation for arrhythmia; Translations: [Other specified postprocedural states] Onset: 06-27-2006 07-16-2019 Episodic Residual codes; unclassified (7 sources) Other specified postprocedural states; Translations: [Personal history of surgery to heart and great vessels, presenting hazards to health] Onset: 06-27-2006 Episodic Residual codes; unclassified (1 source) Chills (without fever); Translations: [Chills (without fever)] Onset: 08-29-2024 Episodic Results Test Name Value Interpretation Reference Range Facility Bilirubin Test strip Ql (U)O rdered By: Anahi Flynn on 01-24-2025 Bilirubin Ql (U) Negative Negative [facility] Ketones Test strip Ql (U)Ord ered By: Anahi Flynn on 01-24-2025 Ketones Ql (U) Negative Negative [facility] Microscopic analysis of urin e for red blood cells (RBC)Ordered By: Anahi Flynn on 01-24-2025 Microscopic analysis of urine for red blood cells (RBC) 0 SEEN /hpf 0-5 [facility] Mucus LM Ql (Urine sed)Order ed By: Anahi Flynn on 01-24-2025 Mucus Ql (Urine sed) Not Reportable [facility] Nitrite Test strip Ql (U)Ord ered By: Anahi Flynn on 01-24-2025 Nitrite Ql (U) Positive High Negative [facility] Protein Test strip Ql (U)Ord ered By: Anahi Flynn on 01-24-2025 Protein Ql (U) 15 mg/dl High Negative [facility] Squamous epithelial cells de tection in urine sediment by light microscopyOrdered By: Anahi Flynn on 01-24-2025 Epithelial cells.squamous LM Ql (Urine sed) 0 SEEN /hpf 0-5 [facility] Urinalysis, Completeon 01-24 BACTERIA 1+ /hpf Normal None Seen [facility] Comment on above: Order Comment: JUWAN TER SPECIMEN Performed By: #### L [id number], L501.2300, [id number], L100.0100 #### [facility] [address] [place], [address] EPI,SQUAMOUS 0 SEEN Normal 0-5 [facility] Comment on above: Order Comment: JUWAN TER SPECIMEN Performed By: #### L [id number], L501.2300, [id number], L100.0100 #### [facility] [address] [place], [address] RBC 0 SEEN Normal 0-5 [facility] Comment on above: Order Comment: JUWAN TER SPECIMEN Performed By: #### L [id number], L501.2300, [id number], L100.0100 #### [facility] [address] [place], [address] WBC 0 SEEN Normal 0-5 [facility] Comment on above: Order Comment: JUWAN TER SPECIMEN Performed By: #### L [id number], [id number], [id number], L100.0100 #### [facility] [address] [place], [address] Urine clarityOrdered By: Gavin Flynn on 01-24-2025 Clarity (U) Sl. Cloudy Clear [facility] Urine color determinationOrd ered By: Anahi Flynn on 01-24-2025 Color (U) Yellow Yellow [facility] Urine cultureOrdered By: Gavin Flynn on 01-24-2025 Bacteria identified Cx Nom (U) Proteus mirabilis Abnormal [facility] Urine glucose detectionOrder ed By: Anahi Flynn on 01-24-2025 Glucose Ql (U) Normal mg/dl Normal [facility] Urine leukocyte esterase det ection by dipstickOrdered By: Anahi Bird on 01-24-2025 Leukocyte esterase Test strip Ql (U) 25 /ul High Negative [facility] Urine pHOrdered By: Anahi Fong on 01-24-2025 pH (U) 9.0 [pH] 5.0 - 8.0 [facility] Urine sediment bacteria coun t by microscopy (number/high power field)Ordered By: Anahi Flynn on 01-24-2025 Bacteria LM.HPF (Urine sed) [#/Area] 1 /[HPF] None Seen [facility] Urine specific gravity measu rementOrdered By: Anahi Flynn on 01-24-2025 Specific gravity (U) [Rel density] 1.015 1.002-1.030 [facility] Urine urobilinogen measureme ntOrdered By: Anahi Flynn on 01-24-2025 Urobilinogen Ql (U) Normal mg/dl Normal [facility] White blood cell countOrdere d By: Anahi AlejoShreya on 01-24-2025 White blood cell count 0 SEEN /hpf 0-5 [facility] Anion gap in Serum or Plasma Ordered By: Mallory Baum on 01-22-2025 Anion gap [Moles/Vol] 11 mmol/L 5-15 [facility] BUN/creatinine ratioOrdered By: Mallory Baum on 01-22-2025 Urea nitrogen/Creatinine [Mass ratio] 24.8 mg/mg High 10- [facility] Basic Metabolic Profile (BMP )on 01-22-2025 BUN/CRE 24.8 RATIO High - [facility] Comment on above: Performed By: #### L [id number], L501.2300, [id number], L100.0100 #### [facility] [address] [place], [address] Calcium [Mass/Vol] 9.1 mg/dL Normal 7.6-11.0 [facility] Comment on above: Performed By: #### L [id number], L501.2300, [id number], L100.0100 #### [facility] [address] [place], [address] Chloride [Moles/Vol] 105 mmol/L Normal 98-108 [facility] Comment on above: Performed By: #### L [id number], [id number], [id number], L100.0100 #### [facility] [address] [place] [place], [address] CO2 [Moles/Vol] 24.0 mmol/L Normal 21.0-32.0 [facility] Comment on above: Performed By: #### L 500.4050, [id number], L501.5200, L100.0100 #### [facility] [address] [place], [address] Creatinine [Mass/Vol] 1.22 mg/dL High 0.70-1.20 [facility] Comment on above: Performed By: #### L [id number], [id number], L501.5200, L100.0100 #### [facility] [address] [place], [address] ECRCL 53.33 ml/min Normal 50-250 [facility] Comment on above: Performed By: #### L [id number], [id number], [id number], L100.0100 #### [facility] [address] [place], [address] GAP 11 Normal 5-15 [facility] Comment on above: Performed By: #### L [id number], [id number], [id number], L100.0100 #### [facility] [address] [place], [address] GFR/1.73 sq M.predicted among non-blacks MDRD (S/P/Bld) [Vol rate/Area] 57 mL/min/{1.73_m2} Low >60 [facility] Comment on above: Result Comment: mL/m in/1.73m2 CKD-EPI Creatinine Equation (2020) Performed By: #### L 500.4050, [id number], [id number], L100.0100 #### [facility] [address] [place], [address] Glucose [Mass/Vol] 125 mg/dL High 70-99 [facility] Comment on above: Performed By: #### L 500.4050, [id number], [id number], L100.0100 #### [facility] [address] [place], [address] Potassium [Moles/Vol] 4.7 mmol/L Normal 3.3-5.1 [facility] Comment on above: Performed By: #### L 500.4050, [id number], [id number], L100.0100 #### [facility] [address] [place], [address] Sodium [Moles/Vol] 140 mmol/L Normal 133-145 [facility] Comment on above: Performed By: #### L 500.4050, [id number], [id number], L100.0100 #### [facility] [address] [place], [address] Urea nitrogen [Mass/Vol] 30 mg/dL High 4-19 [facility] Comment on above: Performed By: #### L [id number], [id number], [id number], L100.0100 #### [facility] [address] [place], [address] CBC-Complete Blood Cnt No Di ffon 01-22-2025 Erythrocyte distribution width (RBC) [Ratio] 14.8 % High 11.6-14.6 [facility] Comment on above: Performed By: #### L [id number], [id number], [id number], L100.0100 #### [facility] [address] [place], [address] Hematocrit (Bld) [Volume fraction] 36.5 % Low 40-54 [facility] Comment on above: Performed By: #### L 500.4050, [id number], [id number], L100.0100 #### [facility] [address] [place], [address] Hemoglobin (Bld) [Mass/Vol] 12.6 g/dL Low 13.0-16.5 [facility] Comment on above: Performed By: #### L 500.4050, [id number], [id number], L100.0100 #### [facility] [address] [place], [address] MCH (RBC) [Entitic mass] 37.0 pg High 27.0-32.0 [facility] Comment on above: Performed By: #### L [id number], [id number], [id number], L100.0100 #### [facility] [address] [place], [address] MCHC (RBC) [Mass/Vol] 34.5 g/dL Normal 32-36 [facility] Comment on above: Performed By: #### L [id number], [id number], [id number], L100.0100 #### [facility] [address] [place], [address] MCV (RBC) [Entitic vol] 107.0 fL High 80-94 [facility] Comment on above: Performed By: #### L 500.4050, [id number], [id number], L100.0100 #### [facility] [address] [place], [address] Platelet mean volume (Bld) [Entitic vol] 11.5 fL Normal 6.2-12.0 [facility] Comment on above: Performed By: #### L [id number], [id number], [id number], L100.0100 #### [facility] [address] [place], [address] Platelets (Bld) [#/Vol] 129 10*3/uL Low 150-450 [facility] Comment on above: Performed By: #### L [id number], [id number], [id number], L100.0100 #### [facility] [address] [place], [address] RBC (Bld) [#/Vol] 3.41 10*6/uL Low 4.6-6.2 [facility] Comment on above: Performed By: #### L 500.4050, L501.2300, L501.5200, L100.0100 #### [facility] [address] [place], [address] RDW SD 59.0 fl High 35.1-43.9 [facility] Comment on above: Performed By: #### L 500.4050, L501.2300, L501.5200, L100.0100 #### [facility] [address] [place], [address] WBC (Bld) [#/Vol] 7.8 10*3/uL Normal 4.4-11.0 [facility] Comment on above: Performed By: #### L 500.4050, L501.2300, L501.5200, L100.0100 #### [facility] [address] [place], [address] Carbon dioxide, total [Moles /volume] in Central venous bloodOrdered By: Mallory Baum on 01-22-2025 CO2 [Moles/Vol] 24.0 mmol/L 21.0-32.0 [facility] Chloride assayOrdered By: Etelvina Baum on 01-22-2025 Chloride [Moles/Vol] 105 mmol/L 98-108 [facility] Erythrocyte distribution wid th ratioOrdered By: Mallory Baum on 01-22-2025 Erythrocyte distribution width (RBC) [Ratio] 14.8 % High 11.6-14.6 [facility] Erythrocyte distribution wid th standard deviationOrdered By: Mallory Bautista on 01-22-2025 Erythrocyte distribution width (RBC) [Ratio] 59.0 fl High 35.1-43.9 [facility] Glomerular filtration rate ( GFR) estimation/1.73 sq m using serum, plasma, or whole bOrdered By: Mallory Baum on 01-22-2025 GFR/1.73 sq M.predicted among non-blacks MDRD (S/P/Bld) [Vol rate/Area] 57 mL/min/{1.73_m2} Low >60 [facility] Comment on above: mL/min/1.73m2 CKD-EP I Creatinine Equation (2020) Hematocrit Auto (Bld) [Volum e fraction]Ordered By: Mallory Baum on 01-22-2025 Hematocrit (Bld) [Volume fraction] 36.5 % Low 40-54 [facility] Hemoglobin A1con 01-22-2025 HbA1c (Bld) [Mass fraction] 5.5 % Normal <=5.6 [facility] Comment on above: Result Comment: Norm al < 5.7 % Prediabetic 5.7 - 6.4 % Diabetic >or= 6.5 % Please note range changes. Performed By: #### L 500.4050, L501.2300, L501.5200, L100.0100 #### [facility] [address] [place] [address], [address] Hemoglobin A1c percentageOrd ered By: Mallory Baum on 01-22-2025 HbA1c (Bld) [Mass fraction] 5.5 % <5.7 [facility] Comment on above: Normal < 5.7 % Predi abetic 5.7 - 6.4 % Diabetic >or= 6.5 % Please note range changes. Hemoglobin measurementOrdere d By: Mallory Baum on 01-22-2025 Hemoglobin (Bld) [Mass/Vol] 12.6 g/dL Low 13.0-16.5 [facility] MCV (mean corpuscular volume ) determinationOrdered By: Mallory Baum on 01-22-2025 MCV (RBC) [Entitic vol] 107.0 fL High 80-94 [facility] Mean corpuscular hemoglobin (MCH) determinationOrdered By: Mallory Baum on 01-22-2025 MCH (RBC) [Entitic mass] 37.0 pg High 27.0-32.0 [facility] Mean corpuscular hemoglobin concentration (MCHC) determinationOrdered By: Mallory Baum on 01-22-2025 MCHC (RBC) [Mass/Vol] 34.5 g/dL 32-36 [facility] Mean platelet volume determi nationOrdered By: Mallory Baum on 01-22-2025 Platelet mean volume (Bld) [Entitic vol] 11.5 fL 6.2-12.0 [facility] Platelet countOrdered By: Etelvina Baum on 01-22-2025 Platelets (Bld) [#/Vol] 129 10*3/uL Low 150-450 [facility] Potassium measurement (mass/ volume)Ordered By: Mallory Baum on 01-22-2025 Potassium (Unsp spec) [Mass/Vol] 4.7 mmol/L 3.3-5.1 [facility] RBC Auto (Bld) [#/Vol]Ordere d By: Mallory Baum on 01-22-2025 RBC (Bld) [#/Vol] 3.41 10*6/uL Low 4.6-6.2 [facility] Serum creatinine measurement (mass/volume)Ordered By: Mallory Baum on 01-22-2025 Creatinine [Mass/Vol] 1.22 mg/dL High 0.70-1.20 [facility] Serum glucose measurement (m ass/volume)Ordered By: Mallory Baum on 01-22-2025 Glucose [Mass/Vol] 125 mg/dL High 70-99 [facility] Serum or plasma calcium siobhan urement (mass/volume)Ordered By: Mallory Baum on 01-22-2025 Calcium [Mass/Vol] 9.1 mg/dL 7.6-11.0 [facility] Serum or plasma urea nitroge n measurement (mass/volume)Ordered By: Mallory Baum on 01-22-2025 Urea nitrogen [Mass/Vol] 30 mg/dL High 4-19 [facility] Sodium levelOrdered By: Mallory Baum on 01-22-2025 Sodium [Moles/Vol] 140 mmol/L 133-145 [facility] White blood cell (WBC) count Ordered By: Mallory Baum on 01-22-2025 WBC (Bld) [#/Vol] 7.8 10*3/uL 4.4-11.0 [facility] Urinalysis, Completeon 01-20 BACTERIA 0 SEEN Normal None Seen [facility] Comment on above: Order Comment: JUWAN TER SPECIMEN Performed By: #### L 500.4050, L501.2300, L501.5200, L100.0100 #### [facility] [address] [place], [address] EPI,SQUAMOUS 0 SEEN Normal 0-5 [facility] Comment on above: Order Comment: JUWAN TER SPECIMEN Performed By: #### L 500.4050, L501.2300, L501.5200, L100.0100 #### [facility] [address] [place], [address] Mucus Ql (Urine sed) 0 SEEN Normal [facility] Comment on above: Order Comment: JUWAN TER SPECIMEN Performed By: #### L 500.4050, L501.2300, L501.5200, L100.0100 #### [facility] [address] [place], [address] RBC 0 SEEN Normal 0-5 [facility] Comment on above: Order Comment: JUWAN TER SPECIMEN Performed By: #### L 500.4050, L501.2300, L501.5200, L100.0100 #### [facility] [address] [place], [address] WBC 0 SEEN Normal 0-5 [facility] Comment on above: Order Comment: JUWAN TER SPECIMEN Performed By: #### L 500.4050, L501.2300, L501.5200, L100.0100 #### [facility] [address] [place], [address] Basic Metabolic Profile (BMP )on 01-17-2025 BUN/CRE 20.6 RATIO High 10-20 [facility] Comment on above: Performed By: #### L 500.4100, L500.3400 #### [facility] [address] [place], [address] Calcium [Mass/Vol] 9.0 mg/dL Normal 7.6-11.0 [facility] Comment on above: Performed By: #### L 500.4100, L500.3400 #### [facility] [address] [place], [address] Chloride [Moles/Vol] 105 mmol/L Normal 98-108 [facility] Comment on above: Performed By: #### L 500.4100, L500.3400 #### [facility] [address] [place], [address] CO2 [Moles/Vol] 25.2 mmol/L Normal 21.0-32.0 [facility] Comment on above: Performed By: #### L 500.4100, L500.3400 #### [facility] [address] [place], [address] Creatinine [Mass/Vol] 1.26 mg/dL High 0.70-1.20 [facility] Comment on above: Performed By: #### L 500.4100, L500.3400 #### [facility] [address] [place], [address] ECRCL 51.63 ml/min Normal 50-250 [facility] Comment on above: Performed By: #### L 500.4100, L500.3400 #### [facility] [address] [place], [address] GAP 9 Normal 5-15 [facility] Comment on above: Performed By: #### L 500.4100, L500.3400 #### [facility] [address] [place], [address] GFR/1.73 sq M.predicted among non-blacks MDRD (S/P/Bld) [Vol rate/Area] 55 mL/min/{1.73_m2} Low >60 [facility] Comment on above: Result Comment: mL/m in/1.73m2 CKD-EPI Creatinine Equation (2020) Performed By: #### L 500.4100, L500.3400 #### [facility] [address] [place], [address] Glucose [Mass/Vol] 142 mg/dL High 70-99 [facility] Comment on above: Performed By: #### L 500.4100, L500.3400 #### [facility] [address] [place], [address] Potassium [Moles/Vol] 4.5 mmol/L Normal 3.3-5.1 [facility] Comment on above: Performed By: #### L 500.4100, L500.3400 #### [facility] [address] [place], [address] Sodium [Moles/Vol] 139 mmol/L Normal 133-145 [facility] Comment on above: Performed By: #### L 500.4100, L500.3400 #### [facility] [address] [place], [address] Urea nitrogen [Mass/Vol] 26 mg/dL High 4-19 [facility] Comment on above: Performed By: #### L 500.4100, L500.3400 #### [facility] [address] [place], [address] CBC-Complete Blood Cnt No Di ffon 01-17-2025 Erythrocyte distribution width (RBC) [Ratio] 14.3 % Normal 11.6-14.6 [facility] Comment on above: Performed By: #### L 500.4050, L501.2300, L501.5200, L100.0100 #### [facility] [address] [place], [address] Hematocrit (Bld) [Volume fraction] 32.2 % Low 40-54 [facility] Comment on above: Performed By: #### L 500.4050, L501.2300, L501.5200, L100.0100 #### [facility] [address] [place], [address] Hemoglobin (Bld) [Mass/Vol] 11.5 g/dL Low 13.0-16.5 [facility] Comment on above: Performed By: #### L 500.4050, L501.2300, L501.5200, L100.0100 #### [facility] [address] [place], [address] MCH (RBC) [Entitic mass] 38.0 pg High 27.0-32.0 [facility] Comment on above: Performed By: #### L 500.4050, L501.2300, L501.5200, L100.0100 #### [facility] [address] [place], [address] MCHC (RBC) [Mass/Vol] 35.7 g/dL Normal 32-36 [facility] Comment on above: Performed By: #### L 500.4050, L501.2300, L501.5200, L100.0100 #### [facility] [address] [place], [address] MCV (RBC) [Entitic vol] 106.3 fL High 80-94 [facility] Comment on above: Performed By: #### L 500.4050, L501.2300, L501.5200, L100.0100 #### [facility] [address] [place], [address] Platelet mean volume (Bld) [Entitic vol] 12.3 fL High 6.2-12.0 [facility] Comment on above: Performed By: #### L 500.4050, L501.2300, L501.5200, L100.0100 #### [facility] [address] [place], [address] Platelets (Bld) [#/Vol] 124 10*3/uL Low 150-450 [facility] Comment on above: Performed By: #### L 500.4050, L501.2300, L501.5200, L100.0100 #### [facility] [address] [place], [address] RBC (Bld) [#/Vol] 3.03 10*6/uL Low 4.6-6.2 [facility] Comment on above: Performed By: #### L 500.4050, L501.2300, L501.5200, L100.0100 #### [facility] [address] [place], [address] RDW SD 55.9 fl High 35.1-43.9 [facility] Comment on above: Performed By: #### L 500.4050, L501.2300, L501.5200, L100.0100 #### [facility] [address] [place], [address] WBC (Bld) [#/Vol] 5.7 10*3/uL Normal 4.4-11.0 [facility] Comment on above: Performed By: #### L 500.4050, L501.2300, L501.5200, L100.0100 #### [facility] [address] [place], [address] HH, Hemoglobin AND Hematocri ton 01-17-2025 HCT Normal 40-54 [facility] Comment on above: Result Comment: Aniceto yang via OM: Ordered Performed By: #### L 500.4100, L500.3400 #### [facility] [address] [place], [address] HGB Normal 13.0-16.5 [facility] Comment on above: Result Comment: Aniceto yang via OM: Ordered Performed By: #### L 500.4100, L500.3400 #### [facility] [address], [address] [id number] 01-16-2025 MR/POSTOPAN2 [facility] Medical Records Department [address] [place] [address] Anesthesia Postop Eval II 01/16/252005 MR#: [id number] Acct: [id number] Name: BENJIE MILES Rep #: [id number] : 1935 89 From: Ludin Brewer MD PCP: Dr. Kaiser Pan MD Status:ADM IN Y Race: C Location: [place] [address] Anesthesia Postop Eval I Sum Postop Eval Completion status Anesthesia document: Postop Eval 1 completed: Yes Anesthesia Postop Eval I Summary Anesthesia Postop Eval I Summary: Anesthesia Postop Eval I: Assessment Summary Airway patent Yes 01/15/25 17:04 [employer]SHOF Spontaneous unlabored Yes 01/15/25 17:04 [employer]SHOF respirations Mental status Awake,Calm 01/15/25 17:04 [employer].SHOF nausea No 01/15/25 17:04 [employer].SHOF Vomiting No 01/15/25 17:04 [employer]GER.SHOF Anesthesia Postop Eval I: Fluid Summary Crystalloid volume administer 400 01/15/25 17:04 [employer]ING MA[employer]GER.SHOF (ml) Colloids volume administered ( ml) Blood Product volume administered (ml) Total IV fluid infused 400 01/15/25 17:04 [employer]GER.SHOF Anesthesia Postop Eval I: Summary Notes Anesthesia Complication No 01/15/25 17:04 [employer].SHOF Anesthesia Complication Comment: Post-operative progress note Anesthesia: Postop Eval II Evaluation Mental status: Awake and Calm Pain Level: 2 nausea: No Vomiting: No Complications Anesthesia Complication: No 01/16/252012 Date Ludin Ford Signature: Date CC: Signed Normal [facility] Electrocardiogram reportOrde red By: ePter Morel on 01-15-2025 EKG study [facility] Cardiovascular Services [address] [place] [address] 12 Lead EKG 01/14/25 1801 MR#: [id number] Acct: [id number] Name: BENJIE MILES Rep #:[id number] : 1935 89 From: Peter tinajero MD Attending Dr: Dr. Mallory Baum DO Status: ADM IN Ordering Dr: Mallory Baum DO Date: 01/14/25 Location: Sex: M C Admitted: 01/11/25 Test Reason : irregular Blood Pressure : */* mmHG Vent. Rate : 80 BPM Atrial Rate : 80 BPM P-R Int : 238 ms QRS Dur : 114 ms QT Int : 410 ms P-R-T Axes : 55 -38 47 degrees QTcB Int : 472 ms Sinus rhythm with marked sinus arrhythmia with 1st degree A-V block Left axis deviation Cannot rule out Septal infarct , age undetermined Abnormal ECG When compared with ECG of 20-Jan-2024 10:50, Left bundle branch block is no longer Present Septal infarct is now Present Confirmed by Peter Morel ([id number]), multimedia editor BRUCE BARRIOS ([id number]) on 01/15/2025 1:33:59 PM Referred By: Mallory Baum Confirmed By: Peter Morel 01/15/25 1334 Date _ Peter Morel MD CC: Dr. Mallory Baum DO; Dr. Kaiser Pan MD ~ Signed [facility] Other Phone: MR/[email or web address].ANEon 01-15-2025 MR/POSTOP.[facility] Medical Records Department [address] [place] [address] Anesthesia Postop Eval I 01/15/25 1700 MR#: [id number] Acct: [id number] Name: BENJIE MILES Rep #: [id number] : 1935 89 From: Mario Petit [employer] MANAGER PCP: Dr. Kaiser Pan MD Status:ADM IN Y Race: C Location: [place] [address] Anesthesia: Postop Eval I Current Vital Signs Temperature: 98 F Pulse Rate: 68 Blood Pressure: 141/75 Respiratory Rate: 16 Pulse Ox: 98 Oxygen Delivery Method: Room Air Assessment Airway patent: Yes Spontaneous unlabored respirations: Yes Mental status: Awake and Calm nausea: No Vomiting: No Anesthesia Complication: No Fluid Hydration Crystalloid volume administer (ml): 400 Total IV fluid infused: 400 Progress Note Anesthesia document: Postop Eval 1 completed: Yes 01/15/25 170 Date Mario Petit [employer]ET[employer] MANAGER Cosigner Signature: Date CC: Signed Normal [facility] OR-Steroid Inj/Cer Thor/1st Rc 01-15-2025 OR-Steroid Inj/Cer Thor/1st L [facility] Imaging Services [address] [place] [address] OR-Steroid Inj/Cer Thor/1st L MR#: [id number] Acct: [id number] Name: BENJIE MILES Rep #: [id number] : 1935 M 89 From: Zhou Rose MD PCP: Dr. Kaiser Pan MD Status: ADM IN Study: OR-Steroid Inj/Cer Thor/1st L Date of Exam: Exam# [id number] Ordering Dr: Kolby Mantilla MD EXAM: INTRAOPERATIVE FLUOROSCOPY CLINICAL HISTORY: INTERCOSTAL BLOCK 8 9 10 COMPARISON: Right ankle radiographs from 08/18/2014 TECHNIQUE: 5 intraoperative fluoroscopy spot images are submitted for review. FINDINGS: Intraoperative fluoroscopy status post thoracic intercostal nerve block at T8, T9, T10. Total fluoroscopy time 28.5 seconds. Total radiation dose 22.07 mGy. RAD/OR-Steroid Inj/Cer Thor/1st L IMPRESSION: Intraoperative/procedur al fluoroscopy as above. Reading Location: [facility] CC: Dr. Kolby Mantilla MD; Dr. Kaiser Pan MD Checkering Machine Operator: Signed [facility] OR-Steroid Inj/Cer Thor/2nd Rc 01-15-2025 OR-Steroid Inj/Cer Thor/2nd L [facility] Imaging Services [address] [place] [id number] OR-Steroid Inj/Cer Thor/2nd L MR#: [id number] Acct: [id number] Name: BENJIE MILES Rep #: [id number] : 1935 M 89 From: Zhou Rose MD PCP: Dr. Kaiser Pan MD Status: ADM IN Study: OR-Steroid Inj/Cer Thor/2nd L Date of Exam: Exam# [id number] Ordering Dr: Kolby Mantilla MD EXAM: INTRAOPERATIVE FLUOROSCOPY CLINICAL HISTORY: INTERCOSTAL BLOCK 8 9 10 COMPARISON: Right ankle radiographs from 08/18/2014 TECHNIQUE: 5 intraoperative fluoroscopy spot images are submitted for review. FINDINGS: Intraoperative fluoroscopy status post thoracic intercostal nerve block at T8, T9, T10. Total fluoroscopy time 28.5 seconds. Total radiation dose 22.07 mGy. RAD/OR-Steroid Inj/Cer Thor/2nd L IMPRESSION: Intraoperative/procedur al fluoroscopy as above. Reading Location: [facility] CC: Dr. Kolby Mantilla MD; Dr. Kaiser Pan MD Checkering Machine Operator: Signed [facility] OR-Steroid Inj/Cer Thor/3rd Rc 01-15-2025 OR-Steroid Inj/Cer Thor/3rd L [facility] Imaging Services [address] [place], [place] [address] OR-Steroid Inj/Cer Thor/3rd L MR#: [id number] Acct: [id number] Name: BENJIE MILES Rep #: [id number] : 1935 89 From: Zhou Rose MD PCP: Dr. Kaiser Pan MD Status: ADM IN Study: OR-Steroid Inj/Cer Thor/3rd L Date of Exam: Exam# [id number] Ordering Dr: Kolby Mantilla MD EXAM: INTRAOPERATIVE FLUOROSCOPY CLINICAL HISTORY: INTERCOSTAL BLOCK 8 9 10 COMPARISON: Right ankle radiographs from 08/18/2014 TECHNIQUE: 5 intraoperative fluoroscopy spot images are submitted for review. FINDINGS: Intraoperative fluoroscopy status post thoracic intercostal nerve block at T8, T9, T10. Total fluoroscopy time 28.5 seconds. Total radiation dose 22.07 mGy. RAD/OR-Steroid Inj/Cer Thor/3rd L IMPRESSION: Intraoperative/procedur al fluoroscopy as above. Reading Location: [id number] CC: Dr. Kolby Mantilla MD; Dr. Kaiser Pan MD Checkering Machine Operator: Signed Normal [facility] Thoracic Spine 2 Viewson Thoracic Spine 2 Views [facility] Imaging Services [address] [place], [place] [address] Thoracic Spine 2 Views MR#: [id number] Acct: [id number] Name: BENJIE MILES Rep #: [id number] : 1935 89 From: Zhou Rose MD PCP: Dr. Kaiser Pan MD Status: ADM IN Study: Thoracic Spine 2 Views Date of Exam: 01/15/25 Exam# [id number] Ordering Dr: Kolby Mantilla MD EXAM: INTRAOPERATIVE FLUOROSCOPY CLINICAL HISTORY: INTERCOSTAL BLOCK 8 9 10 COMPARISON: Right ankle radiographs from 08/18/2014 TECHNIQUE: 5 intraoperative fluoroscopy spot images are submitted for review. FINDINGS: Intraoperative fluoroscopy status post thoracic intercostal nerve block at T8, T9, T10. Total fluoroscopy time 28.5 seconds. Total radiation dose 22.07 mGy. RAD/Thoracic Spine 2 Views IMPRESSION: Intraoperative/procedur al fluoroscopy as above. Reading Location: [facility] CC: Dr. Kolby Mantilla MD; Dr. Kaiser Pan MD Checkering Machine Operator: Signed Normal [facility] 12 Lead EKGon 01-14-2025 12 Lead EKG [facility] Cardiovascular Services [address] [place] [address] 12 Lead EKG 01/14/25 1801 MR#: [id number] Acct: [id number] Name: BENJIE MILES Rep #: [id number] : 1935 89 From: Peter Morel MD Attending Dr: Dr. Mallory Baum DO Sta tus: ADM IN Ordering Dr: Mallory Baum DO Date: 01/14/25 Location: Sex: M C Admitted: 01/11/25 Test Reason : irregular Blood Pressure : */* mmHG Vent. Rate : 80 BPM Atrial Rate : 80 BPM P-R Int : 238 ms QRS Dur : 114 ms QT Int : 410 ms P-R-T Axes : 55 -38 47 degrees QTcB Int : 472 ms Sinus rhythm with marked sinus arrhythmia with 1st degree A-V block Left axis deviation Cannot rule out Septal infarct , age undetermined Abnormal ECG When compared with ECG of 20-Jan-2024 10:50, Left bundle branch block is no longer Present Septal infarct is now Present Confirmed by Peter Morel ([id number]), multimedia editor BRUCE BARRIOS ([id number]) on 01/15/2025 1:33:59 PM Referred By: Mallory Baum Confirmed By: Peter Morel 01/15/25 1334 Date Peter Morel MD CC: Dr. Mallory Baum DO; Dr. Kaiser Pan MD Signed Normal [facility] Abdomen Single Viewon 2024 Abdomen Single View [facility] Imaging Services [address] [place], [place] [address] Abdomen Single View MR#: [id number] Acct: [id number] Name: BENJIE MILES Rep #: [id number] : 1935 M 89 From: Abdulaziz Yeh MD PCP: Dr. Kaiser Pan MD Status: ADM IN Study: Abdomen Single View Date of Exam: 01/14/25 Exam# [id number] Ordering Dr: Mallory Baum DO EXAM: XR Abdomen, 1 View CLINICAL INDICATION: CONSTIPATION TECHNIQUE: Frontal supine view of the abdomen/pelvis. COMPARISON: No relevant prior studies available. FINDINGS: GASTROINTESTINAL TRACT: Fecal retention in the colon consistent with constipation. No dilation. BONES/JOINTS: Unremarkable. No acute fracture. SOFT TISSUES: Multiple circular foreign bodies projects over the left hemipelvis and central pelvic cavity. RAD/Abdomen Single View IMPRESSION: 1. Multiple circular foreign bodies projects over the left hemipelvis and central pelvic cavity. 2. Fecal retention in the colon consistent with constipation. Reading Location: [facility] CC: Dr. Mallory Baum DO; Dr. Kaiser Pan MD Checkering Machine Operator: Signed Normal [facility] Stool Occult Blood iFOBon STOB Normal Reference Ran ge = Negative Immunochemical Fecal Occult Blood (iFOBT) method. Hemoccult Stl Ql IA Limitation: Menstrual bleeding, constipation bleeding, bleeding hemorrhoids, and urinary bleeding conditions may interfere with test. Occult Blood A Positive A OCCULT BLOOD POSITIVE Normal [facility] Comment on above: Performed By: #### L 500.4100, L500.3400 #### [facility] [address] [place], [place], [id number] Stool gastrointestinal hemog lobin detection by immunologic methodOrdered By: Mallory Baum on 01-12-2025 Lower GI hemoglobin IA Ql (Stl) Positive Abnormal [facility] Absolute lymphocyte countOrd ered By: Mallory Baum on 01-11-2025 Lymphocytes Auto (Unsp spec) [#/Vol] 0.54 10*3/uL Low 0.83-4.51 [facility] Absolute neutrophil countOrd ered By: Mallory Baum on 01-11-2025 Neutrophils (Bld) [#/Vol] 3.9 10*3/uL 2.0-7.7 [facility] Automated lymphocyte count a s percentage of total leukocytesOrdered By: Mallory Baum on 01-11-2025 Lymphocytes/100 WBC Auto (Unsp spec) 9.3 % Low 19-41 [facility] Basophil percentageOrdered B y: Mallory Baum on 01-11-2025 Basophils/100 WBC (Bld) 0.5 % 0-1 [facility] CBC W/Diff, Automatedon 12-25 Absolute Lymph 0.54 X10 3/uL Low 0.83-4.51 [facility] Comment on above: Performed By: #### L 500.4050, L501.2300, L501.5200, L100.0100 #### [facility] [address] [place], [address] Absolute Neut 3.9 X10 3/uL Normal 2.0-7.7 [facility] Comment on above: Performed By: #### L 500.4050, L501.2300, L501.5200, L100.0100 #### [facility] [address] [place], [address] Basophils/100 WBC (Bld) 0.5 % Normal 0-1 [facility] Comment on above: Performed By: #### L 500.4050, L501.2300, L501.5200, L100.0100 #### [facility] [address] [place], [address] Eosinophils/100 WBC (Bld) 3.4 % Normal 0-5 [facility] Comment on above: Performed By: #### L 500.4050, L501.2300, L501.5200, L100.0100 #### [facility] [address] [place], [address] Erythrocyte distribution width (RBC) [Ratio] 14.6 % Normal 11.6-14.6 [facility] Comment on above: Performed By: #### L 500.4050, L501.2300, L501.5200, L100.0100 #### [facility] [address] [place], [address] Hematocrit (Bld) [Volume fraction] 41.3 % Normal 40-54 [facility] Comment on above: Performed By: #### L 500.4050, L501.2300, L501.5200, L100.0100 #### [facility] [address] [place], [address] Hemoglobin (Bld) [Mass/Vol] 14.3 g/dL Normal 13.0-16.5 [facility] Comment on above: Performed By: #### L 500.4050, L501.2300, L501.5200, L100.0100 #### [facility] [address] [place], [address] IG% 0.500 Normal 0.0-0.9 [facility] Comment on above: Result Comment: IG% - Immature Granulocytes (promyelocytes, myelocytes and metamyelocytes) > 1% indicates that a LEFT SHIFT is Present. Performed By: #### L 500.4050, L501.2300, L501.5200, L100.0100 #### [facility] [address] [place], [address] Lymphocytes/100 WBC (Bld) 9.3 % Low 19-41 [facility] Comment on above: Performed By: #### L 500.4050, L501.2300, L501.5200, L100.0100 #### [facility] [address] [place], [address] MCH (RBC) [Entitic mass] 37.3 pg High 27.0-32.0 [facility] Comment on above: Performed By: #### L 500.4050, L501.2300, L501.5200, L100.0100 #### [facility] [address] [place], [address] MCHC (RBC) [Mass/Vol] 34.6 g/dL Normal 32-36 [facility] Comment on above: Performed By: #### L 500.4050, L501.2300, L501.5200, L100.0100 #### [facility] [address] [place], [address] MCV (RBC) [Entitic vol] 107.8 fL High 80-94 [facility] Comment on above: Performed By: #### L 500.4050, L501.2300, L501.5200, L100.0100 #### [facility] [address] [place], [address] Monocytes/100 WBC (Bld) 19.8 % High 0-10 [facility] Comment on above: Performed By: #### L 500.4050, L501.2300, L501.5200, L100.0100 #### [facility] [address] [place], [address] Neutrophils/100 WBC (Bld) 66.5 % Normal 47-70 [facility] Comment on above: Performed By: #### L 500.4050, L501.2300, L501.5200, L100.0100 #### [facility] [address] [place], [address] Nucleated RBC (Bld) [#/Vol] 0 10*3/uL Normal 0-5 [facility] Comment on above: Performed By: #### L 500.4050, L501.2300, L501.5200, L100.0100 #### [facility] [address] [place], [address] Platelet mean volume (Bld) [Entitic vol] 12.3 fL High 6.2-12.0 [facility] Comment on above: Performed By: #### L 500.4050, L501.2300, L501.5200, L100.0100 #### [facility] [address] [place], [address] Platelets (Bld) [#/Vol] 114 10*3/uL Low 150-450 [facility] Comment on above: Performed By: #### L 500.4050, L501.2300, L501.5200, L100.0100 #### [facility] [address] [place], [address] RBC (Bld) [#/Vol] 3.83 10*6/uL Low 4.6-6.2 [facility] Comment on above: Performed By: #### L 500.4050, L501.2300, L501.5200, L100.0100 #### [facility] [address] [place], [address] RDW SD 58.4 fl High 35.1-43.9 [facility] Comment on above: Performed By: #### L 500.4050, L501.2300, L501.5200, L100.0100 #### [facility] [address] [place], [address] WBC (Bld) [#/Vol] 5.8 10*3/uL Normal 4.4-11.0 [facility] Comment on above: Performed By: #### L 500.4050, L501.2300, L501.5200, L100.0100 #### [facility] [address] [place], [address] Comprehensive Metabolic Prof ilmartine 01-11-2025 ALK PHOS 57 U/L Normal 40-129 [facility] Comment on above: Performed By: #### L 500.4050, L501.2300, L501.5200, L100.0100 #### [facility] [address] [place], [address] BUN/CRE 29.0 RATIO High 10-20 [facility] Comment on above: Performed By: #### L 500.4050, L501.2300, L501.5200, L100.0100 #### [facility] [address] [place], [address] Calcium [Mass/Vol] 9.9 mg/dL Normal 7.6-11.0 [facility] Comment on above: Performed By: #### L 500.4050, L501.2300, L501.5200, L100.0100 #### [facility] [address] [place], [address] Chloride [Moles/Vol] 104 mmol/L Normal 98-108 [facility] Comment on above: Performed By: #### L 500.4050, L501.2300, L501.5200, L100.0100 #### [facility] [address] [place], [address] CO2 [Moles/Vol] 23.4 mmol/L Normal 21.0-32.0 [facility] Comment on above: Performed By: #### L 500.4050, L501.2300, L501.5200, L100.0100 #### [facility] [address] [place], [address] Creatinine [Mass/Vol] 1.24 mg/dL High 0.70-1.20 [facility] Comment on above: Performed By: #### L 500.4050, L501.2300, L501.5200, L100.0100 #### [facility] [address] [place], [address] ECRCL 51.91 ml/min Normal 50-250 [facility] Comment on above: Performed By: #### L 500.4050, L501.2300, L501.5200, L100.0100 #### [facility] [address] [place], [address] GAP 13 Normal 5-15 [facility] Comment on above: Performed By: #### L 500.4050, L501.2300, L501.5200, L100.0100 #### [facility] [address] [place], [address] GFR/1.73 sq M.predicted among non-blacks MDRD (S/P/Bld) [Vol rate/Area] 56 mL/min/{1.73_m2} Low >60 [facility] Comment on above: Result Comment: mL/m in/1.73m2 CKD-EPI Creatinine Equation (2020) Performed By: #### L 500.4050, L501.2300, L501.5200, L100.0100 #### [facility] [address] [place], [address] Glucose [Mass/Vol] 116 mg/dL High 70-99 [facility] Comment on above: Performed By: #### L 500.4050, L501.2300, L501.5200, L100.0100 #### [facility] [address] [place], [address] Potassium [Moles/Vol] 4.0 mmol/L Normal 3.3-5.1 [facility] Comment on above: Performed By: #### L 500.4050, L501.2300, L501.5200, L100.0100 #### [facility] [address] [place], [address] Sodium [Moles/Vol] 140 mmol/L Normal 133-145 [facility] Comment on above: Performed By: #### L 500.4050, L501.2300, L501.5200, L100.0100 #### [facility] [address] [place], [address] T PROT 6.9 g/dL Normal 5.9-8.4 [facility] Comment on above: Performed By: #### L 500.4050, L501.2300, L501.5200, L100.0100 #### [facility] [address] [place], [address] Urea nitrogen [Mass/Vol] 36 mg/dL High 4-19 [facility] Comment on above: Performed By: #### L 500.4050, L501.2300, L501.5200, L100.0100 #### [facility] [address] [place], [address] Comprehensive Metabolic Prof ilOrdered By: Mallory Buam on 01-11-2025 Albumin [Mass/Vol] 4.0 g/dL 3.4-4.8 [facility] Comment on above: Performed By: #### L 500.4050, L501.2300, L501.5200, L100.0100 #### [facility] [address] [place], [address] Albumin/Globulin [Mass ratio] 1.4 {ratio} 0.9-2.4 [facility] Comment on above: Performed By: #### L 500.4050, L501.2300, L501.5200, L100.0100 #### [facility] [address] [place], [address] ALT [Catalytic activity/Vol] 16 U/L <47 [facility] Comment on above: Performed By: #### L 500.4050, L501.2300, L501.5200, L100.0100 #### [facility] [address] [place], [address] AST [Catalytic activity/Vol] 35 U/L <38 [facility] Comment on above: Performed By: #### L 500.4050, L501.2300, L501.5200, L100.0100 #### [facility] [address] [place], [address] Bilirubin [Mass/Vol] 0.65 mg/dL 0.00-1.30 [facility] Comment on above: Performed By: #### L 500.4050, L501.2300, L501.5200, L100.0100 #### [facility] [address] [place], [address] Globulin (S) [Mass/Vol] 2.9 g/dL 2.2-4.2 [facility] Comment on above: Performed By: #### L 500.4050, L501.2300, L501.5200, L100.0100 #### [facility] [address] [place], [address] Eosinophil percentageOrdered By: Mallory Baum on 01-11-2025 Eosinophils/100 WBC (Bld) 3.4 % 0-5 [facility] Folate [Moles/volume] in Ser um or PlasmaOrdered By: Mallory Baum on 01-11-2025 Folate [Moles/Vol] 27.80 ng/mL 4.60-34.80 [facility] Folates,Serum (Folic Acid)on 01-11-2025 FOLATES,SERUM 27.80 ng/mL Normal 4.60-34.80 [facility] Comment on above: Performed By: #### L 500.4100, L500.3400 #### [facility] [address] [place], [address] Immature granulocytes/100 WB C Auto (Bld)Ordered By: Mallory Baum on 01-11-2025 Immature granulocytes/100 WBC (Bld) 0.500 % 0.0-0.9 [facility] Comment on above: IG% - Immature Granu locytes (promyelocytes, myelocytes and metamyelocytes) > 1% indicates that a LEFT SHIFT is Present. Magnesiumon 01-11-2025 Magnesium [Mass/Vol] 2.3 mg/dL High 1.5-2.2 [facility] Comment on above: Performed By: #### L 500.4050, L501.2300, L501.5200, L100.0100 #### [facility] [address] [place], [address] Magnesium measurement (mass/ volume)Ordered By: Mallory Mcgeerancho on 01-11-2025 Magnesium (Unsp spec) [Mass/Vol] 2.3 mg/dL High 1.5-2.2 [facility] Monocyte percentageOrdered B y: Mallory Mcgeerancho on 01-11-2025 Monocytes/100 WBC (Bld) 19.8 % High 0-10 [facility] Neutrophil percentageOrdered By: Mallory Mcgeerancho on 01-11-2025 Neutrophils/100 WBC (Bld) 66.5 % 47-70 [facility] Nucleated red blood cell per centageOrdered By: Mallory Mcgeerancho on 01-11-2025 Nucleated RBC/100 WBC (Bld) [Ratio] 0 % 0-5 [facility] Phosphoruson 01-11-2025 Phosphate [Mass/Vol] 3.5 mg/dL Normal 2.7-4.5 [facility] Comment on above: Performed By: #### L 500.4050, L501.2300, L501.5200, L100.0100 #### [facility] [address] [place], [place], [address] Serum or plasma alkaline angle sphatase measurementOrdered By: Mallory Mcgeerancho on 01-11-2025 ALP [Catalytic activity/Vol] 57 U/L 40-129 [facility] Total proteinOrdered By: Sofia rey Bautista on 01-11-2025 Protein [Mass/Vol] 6.9 g/dL 5.9-8.4 [facility] Vitamin B12on 01-11-2025 Cobalamin (Vitamin B12) [Mass/Vol] 791 pg/mL Normal 180-914 [facility] Comment on above: Performed By: #### L 500.4100, L500.3400 #### [facility] [address] [place], [address] Vitamin B12 ser/plasOrdered By: Mallory Mcgeerancho on 01-11-2025 Cobalamin (Vitamin B12) [Mass/Vol] 791 pg/mL 180-914 [facility] Emergency Department Summary on 01-10-2025 Emergency Department Summary [facility] Medical Records Department [address] [place] [address] Emergency Department Summary 01/10/25 MR#: [id number] Acct: [id number] Name: BENJIE MILES Rep #: [id number] : 1935 89 From: Jose Sharp DO PCP: Dr. Kaiser Pan MD Status:DEP ER Location: ED HPI HPI - Fall History of Present Illness Chief Complaint: Fall Informant: patient Occured/Mechanism Occurred: Yesterday Mechanism/Context: Yes same level fall and Yes slip Pain/Injury Pain Location: chest and back Quality of Pain: Stabbing Worsened by: Movement, coughing, deep breathing Relieved by: Nothing Associated Symptoms Associated Symptoms: Negative for Parasthesias, Weakness, Loss of function, Inability to ambulate, Loss of consciousness or Amnesia Narrative Narrative: Patient presents after a fall that occurred last night. Patient slipped on wet floor and fell onto his back. Patient denies any head injury or loss of consciousness. Patient states that his pain is mainly over the lower thoracic area and lateral ribs. Patient states that the pain is worse with any movement. Patient states it is worse with coughing. Patient states nothing makes it better. He patient denies any paresthesias or weakness. Patient denies any other injuries. [facility] Medical History Bilateral lower extremity edema Dyslipidemia COVID-19 COVID Aortic valve stenosis, nonrheumatic Coronary artery disease Hypokalemia Gastroesophageal reflux disease Hyperlipidemia Benign prostate hyperplasia Debility Weakness Pressure injury of left buttock, stage 1 Stenosis, spinal, lumbar Neck pain Segmental and somatic dysfunction of thoracic region Segmental and somatic dysfunction of pelvic region Segmental and somatic dysfunction of lumbar region Segmental and somatic dysfunction of cervical region Degenerative disc disease, cervical Sleep apnea, obstructive History of atrial fibrillation Nonrheumatic aortic (valve) insufficiency Nonrheumatic aortic (valve) stenosis Pure hypercholesterolemia Essential hypertension Neuropathic pain Hypokalemia GERD (gastroesophageal reflux disease) BPH (benign prostatic hyperplasia) Left trigger finger Left carpal tunnel syndrome Benign paroxysmal positional vertigo Fall Dizziness Debility Laceration of head Vertigo Dyspnea on exertion Prinzmetal angina CAD (coronary artery disease) Malignant pericardial effusion Atrial flutter Palpitations Shortness of breath Precordial chest pain Aortocoronary bypass status History of percutaneous transluminal coronary angioplasty Abnormal result of cardiovascular function study, unspecified Pain in limb Dizziness and giddiness Fatigue Pain in left shoulder Atherosclerosis of coronary artery bypass graft(s), unspecified, with other forms of angina pectoris Intermittent claudication Home Medications ???Medication ???Instructions ???Recorded ???Last Taken ???Type tamsulosin 0.4 mg capsule 0.4 mg PO DAILY URINE FLOW 6 01/19/24 History aspirin 81 mg tablet,delayed 81 mg PO DAILY heart health 01/19/24 History release (Marisela Low Dose Aspirin) omeprazole 40 mg capsule,delayed 40 mg PO DAILY acid reflux 9 01/19/24 History release potassium chloride 20 mEq 20 meq PO DAILY supplement 9 01/19/24 History tablet,extended release acetaminophen 500 mg tablet 1,000 mg (2 x 500 mg) PO Q6H PRN 0 11/05/21 Unknown Rx PRN Pain Score 1-10 #0 tabs multivitamin 1 tab PO DAILY 04/15/22 01/19/24 H istory furosemide 40 mg tablet 40 mg PO DAILY PRN edema 11/18/22 01/19/24 History nitroglycerin 0.4 mg sublingual 0.4 mg sublingual Q5-15M PRN Chest 07/17/24 Unknown Rx tablet Pain #25 tabs ranolazine 1,000 mg 1,000 mg PO Q12H 07/17/24 Unknown History tablet,extended release,12 hr hydrocodone-acetaminoph en 5-325mg 1 tab PO Q6H PRN PRN Pain 3 days 01/10/25 Unknown Rx 5mg-325mg #10 TABLETS Allergy/AdvReac Type Severity Reaction Status Date / Time tramadol (From Ultram) AdvReac Other Verified 01/10/25 10:15 Family History Father CAD (coronary artery disease) CHF (congestive heart failure) Mother Heart disease Brother Diabetes Cancer Hx of CABG CAD (coronary artery disease) Sister COPD (chronic obstructive pulmonary disease) Diabetes Surgical History H/O knee surgery H/O shoulder surgery H/O shoulder surgery History of carpal tunnel surgery History of bilateral knee replacement Status post total knee replacement, right Hx of CABG ( 05/2005) History of arthroscopy ( 07/2011) H/O cardiac radiofrequency ablation ( 10/2006) History of PTCA History of lef (more content not included)... Normal [facility] Ribs Baltazar Min 4V w/PA Cheston 01-10-2025 Ribs Baltazar Min 4V w/PA Chest [facility] Imaging Services [address] [place], [place] [address] Ribs Baltazar Min 4V w/PA Chest MR#: [id number] Acct: [id number] Name: BENJIE MILES Rep #: [id number] : 1935 M 89 From: Abdulaziz Yeh MD PCP: Dr. Kaiser Pan MD Status: REG ER Study: Ribs Baltazar Min 4V w/PA Chest Date of Exam: 01/10 Exam# [id number] Ordering Dr: Jose Sharp DO EXAM: XR Bilateral Ribs, 3 Views CLINICAL INDICATION: FALL TECHNIQUE: Frontal and oblique views of the bilateral ribs. COMPARISON: No relevant prior studies available. FINDINGS: LUNGS AND PLEURAL SPACES: Unremarkable as visualized. No consolidation. No pneumothorax. BONES/JOINTS: Comminuted mildly displaced fracture of the right 10th, 9th, and possibly 8th ribs. RAD/Ribs Baltazar Min 4V w/PA Chest IMPRESSION: Comminuted mildly displaced fracture of the right 10th, 9th, and possibly 8th ribs. Reading Location: [facility] CC: Dr. Jose Sharp DO; Dr. Kaiser Pna MD Checkering Machine Operator: Signed Normal [facility] Absolute lymphocyte countOrd ered By: Kaiser Pan on 11-13-2024 Lymphocytes Auto (Unsp spec) [#/Vol] 0.57 10*3/uL Low 0.83-4.51 [facility] Absolute neutrophil countOrd ered By: Kaiser Pan on 11-13-2024 Neutrophils (Bld) [#/Vol] 3.5 10*3/uL 2.0-7.7 [facility] Anion gap in Serum or Plasma Ordered By: Kaiser Pan on 11-13-2024 Anion gap [Moles/Vol] 10 mmol/L - [facility] Automated lymphocyte count a s percentage of total leukocytesOrdered By: Kaiser Pan on 11-13-2024 Lymphocytes/100 WBC Auto (Unsp spec) 11.2 % Low [facility] BUN/creatinine ratioOrdered By: Kaiser Maxim on 11-13-2024 Urea nitrogen/Creatinine [Mass ratio] 22.7 mg/mg High - [facility] Basophil percentageOrdered B y: Kaiser Pan on 11-13-2024 Basophils/100 WBC (Bld) 0.4 % 0-1 [facility] Bilirubin, totalOrdered By: Kaiser Pan on 11-13-2024 Bilirubin [Mass/Vol] 0.63 mg/dL 0.00-1.30 [facility] CBC W/Diff, Automatedon 10-26 Absolute Lymph 0.57 X10 3/uL Low 0.83-4.51 [facility] Comment on above: Performed By: #### L 501.9520, L100.0100, L506.1001, L500.4050 #### [facility] [address] [place], [address] Absolute Neut 3.5 X10 3/uL Normal 2.0-7.7 [facility] Comment on above: Performed By: #### L 501.9520, L100.0100, L506.1001, L500.4050 #### [facility] [address] [place], [address] Basophils/100 WBC (Bld) 0.4 % Normal 0-1 [facility] Comment on above: Performed By: #### L 501.9520, L100.0100, L506.1001, L500.4050 #### [facility] [address] [place], [address] Eosinophils/100 WBC (Bld) 2.4 % Normal 0-5 [facility] Comment on above: Performed By: #### L 501.9520, L100.0100, L506.1001, L500.4050 #### [facility] [address] [place], [address] Erythrocyte distribution width (RBC) [Ratio] 14.8 % High 11.6-14.6 [facility] Comment on above: Performed By: #### L 501.9520, L100.0100, L506.1001, L500.4050 #### [facility] [address] [place], [address] Hematocrit (Bld) [Volume fraction] 40.1 % Normal 40-54 [facility] Comment on above: Performed By: #### L 501.9520, L100.0100, L506.1001, L500.4050 #### [facility] [address] [place], [address] Hemoglobin (Bld) [Mass/Vol] 13.6 g/dL Normal 13.0-16.5 [facility] Comment on above: Performed By: #### L 501.9520, L100.0100, L506.1001, L500.4050 #### [facility] [address] [place], [address] IG% 0.400 Normal 0.0-0.9 [facility] Comment on above: Result Comment: IG% - Immature Granulocytes (promyelocytes, myelocytes and metamyelocytes) > 1% indicates that a LEFT SHIFT is Present. Performed By: #### L 501.9520, L100.0100, L506.1001, L500.4050 #### [facility] [address] [place], [address] Lymphocytes/100 WBC (Bld) 11.2 % Low 19-41 [facility] Comment on above: Performed By: #### L 501.9520, L100.0100, L506.1001, L500.4050 #### [facility] [address] [place], [address] MCH (RBC) [Entitic mass] 37.0 pg High 27.0-32.0 [facility] Comment on above: Performed By: #### L 501.9520, L100.0100, L506.1001, L500.4050 #### [facility] [address] [place], [address] MCHC (RBC) [Mass/Vol] 33.9 g/dL Normal 32-36 [facility] Comment on above: Performed By: #### L 501.9520, L100.0100, L506.1001, L500.4050 #### [facility] [address] [place], [address] MCV (RBC) [Entitic vol] 109.0 fL High 80-94 [facility] Comment on above: Performed By: #### L 501.9520, L100.0100, L506.1001, L500.4050 #### [facility] [address] [place], [address] Monocytes/100 WBC (Bld) 16.6 % High 0-10 [facility] Comment on above: Performed By: #### L 501.9520, L100.0100, L506.1001, L500.4050 #### [facility] [address] [place], [address] Neutrophils/100 WBC (Bld) 69.0 % Normal 47-70 [facility] Comment on above: Performed By: #### L 501.9520, L100.0100, L506.1001, L500.4050 #### [facility] [address] [place], [address] Nucleated RBC (Bld) [#/Vol] 0 10*3/uL Normal 0-5 [facility] Comment on above: Performed By: #### L 501.9520, L100.0100, L506.1001, L500.4050 #### [facility] [address] [place], [address] Platelet mean volume (Bld) [Entitic vol] 12.4 fL High 6.2-12.0 [facility] Comment on above: Performed By: #### L 501.9520, L100.0100, L506.1001, L500.4050 #### [facility] [address] [place], [address] Platelets (Bld) [#/Vol] 128 10*3/uL Low 150-450 [facility] Comment on above: Performed By: #### L 501.9520, L100.0100, L506.1001, L500.4050 #### [facility] [address] [place], [address] RBC (Bld) [#/Vol] 3.68 10*6/uL Low 4.6-6.2 [facility] Comment on above: Performed By: #### L 501.9520, L100.0100, L506.1001, L500.4050 #### [facility] [address] [place], [address] RDW SD 60.3 fl High 35.1-43.9 [facility] Comment on above: Performed By: #### L 501.9520, L100.0100, L506.1001, L500.4050 #### [facility] [address] [place], [address] WBC (Bld) [#/Vol] 5.1 10*3/uL Normal 4.4-11.0 [facility] Comment on above: Performed By: #### L 501.9520, L100.0100, L506.1001, L500.4050 #### [facility] [address] [place], [address] Carbon dioxide, total [Moles /volume] in Central venous bloodOrdered By: Kaiser Pan on 11-13-2024 CO2 [Moles/Vol] 27.2 mmol/L 21.0-32.0 [facility] Chloride assayOrdered By: Jesse Pan on 11-13-2024 Chloride [Moles/Vol] 103 mmol/L 98-108 [facility] Comprehensive Metabolic Prof ilon 11-13-2024 Albumin [Mass/Vol] 4.1 g/dL Normal 3.4-4.8 [facility] Comment on above: Performed By: #### L 501.9520, L100.0100, L506.1001, L500.4050 #### [facility] [address] [place], [address] Albumin/Globulin [Mass ratio] 1.5 {ratio} Normal 0.9-2.4 [facility] Comment on above: Performed By: #### L 501.9520, L100.0100, L506.1001, L500.4050 #### [facility] [address] [place], [address] ALK PHOS 59 U/L Normal 40-129 [facility] Comment on above: Performed By: #### L 501.9520, L100.0100, L506.1001, L500.4050 #### [facility] [address] [place], [address] ALT [Catalytic activity/Vol] 16 U/L Normal <=46 [facility] Comment on above: Performed By: #### L 501.9520, L100.0100, L506.1001, L500.4050 #### [facility] [address] [place], [address] AST [Catalytic activity/Vol] 23 U/L Normal <=37 [facility] Comment on above: Performed By: #### L 501.9520, L100.0100, L506.1001, L500.4050 #### [facility] [address] [place], [address] Bilirubin [Mass/Vol] 0.63 mg/dL Normal 0.00-1.30 [facility] Comment on above: Performed By: #### L 501.9520, L100.0100, L506.1001, L500.4050 #### [facility] [address] [place], [address] BUN/CRE 22.7 RATIO High 10-20 [facility] Comment on above: Performed By: #### L 501.9520, L100.0100, L506.1001, L500.4050 #### [facility] [address] [place], [address] Calcium [Mass/Vol] 9.4 mg/dL Normal 7.6-11.0 [facility] Comment on above: Performed By: #### L 501.9520, L100.0100, L506.1001, L500.4050 #### [facility] [address] [place], [address] Chloride [Moles/Vol] 103 mmol/L Normal 98-108 [facility] Comment on above: Performed By: #### L 501.9520, L100.0100, L506.1001, L500.4050 #### [facility] [address] [place], [address] CO2 [Moles/Vol] 27.2 mmol/L Normal 21.0-32.0 [facility] Comment on above: Performed By: #### L 501.9520, L100.0100, L506.1001, L500.4050 #### [facility] [address] [place], [address] Creatinine [Mass/Vol] 1.23 mg/dL High 0.70-1.20 [facility] Comment on above: Performed By: #### L 501.9520, L100.0100, L506.1001, L500.4050 #### [facility] [address] [place], [address] GAP 10 Normal 5-15 [facility] Comment on above: Performed By: #### L 501.9520, L100.0100, L506.1001, L500.4050 #### [facility] [address] [place], [address] GFR/1.73 sq M.predicted among non-blacks MDRD (S/P/Bld) [Vol rate/Area] 57 mL/min/{1.73_m2} Low >60 [facility] Comment on above: Result Comment: mL/m in/1.73m2 CKD-EPI Creatinine Equation (2020) Performed By: #### L 501.9520, L100.0100, L506.1001, L500.4050 #### [facility] [address] [place], [address] Globulin (S) [Mass/Vol] 2.7 g/dL Normal 2.2-4.2 [facility] Comment on above: Performed By: #### L 501.9520, L100.0100, L506.1001, L500.4050 #### [facility] [address] [place], [address] Glucose [Mass/Vol] 89 mg/dL Normal 70-99 [facility] Comment on above: Performed By: #### L 501.9520, L100.0100, L506.1001, L500.4050 #### [facility] [address] [place], [address] Potassium [Moles/Vol] 4.3 mmol/L Normal 3.3-5.1 [facility] Comment on above: Performed By: #### L 501.9520, L100.0100, L506.1001, L500.4050 #### [facility] [address] [place], [address] Sodium [Moles/Vol] 140 mmol/L Normal 133-145 [facility] Comment on above: Performed By: #### L 501.9520, L100.0100, L506.1001, L500.4050 #### [facility] [address] [place], [address] T PROT 6.7 g/dL Normal 5.9-8.4 [facility] Comment on above: Performed By: #### L 501.9520, L100.0100, L506.1001, L500.4050 #### [facility] [address] [place], [address] Urea nitrogen [Mass/Vol] 28 mg/dL High 4-19 [facility] Comment on above: Performed By: #### L 501.9520, L100.0100, L506.1001, L500.4050 #### [facility] [address] [place], [address] Eosinophil percentageOrdered By: Kaiser Pan on 11-13-2024 Eosinophils/100 WBC (Bld) 2.4 % 0-5 [facility] Erythrocyte distribution wid th ratioOrdered By: Kaiser Pan on 11-13-2024 Erythrocyte distribution width (RBC) [Ratio] 14.8 % High 11.6-14.6 [facility] Erythrocyte distribution wid th standard deviationOrdered By: Kaiser Pan on 11-13-2024 Erythrocyte distribution width (RBC) [Ratio] 60.3 fl High 35.1-43.9 [facility] Glomerular filtration rate ( GFR) estimation/1.73 sq m using serum, plasma, or whole bOrdered By: Kaiser Pan on 11-13-2024 GFR/1.73 sq M.predicted among non-blacks MDRD (S/P/Bld) [Vol rate/Area] 57 mL/min/{1.73_m2} Low >60 [facility] Comment on above: mL/min/1.73m2 CKD-EP I Creatinine Equation (2020) Hematocrit Auto (Bld) [Volum e fraction]Ordered By: Kaiser Pan on 11-13-2024 Hematocrit (Bld) [Volume fraction] 40.1 % 40-54 [facility] Hemoglobin measurementOrdere d By: Kaiser Pan 11-13-2024 Hemoglobin (Bld) [Mass/Vol] 13.6 g/dL 13.0-16.5 [facility] Immature granulocytes/100 WB C Auto (Bld)Ordered By: Kaiser Pan 11-13-2024 Immature granulocytes/100 WBC (Bld) 0.400 % 0.0-0.9 [facility] Comment on above: IG% - Immature Granu locytes (promyelocytes, myelocytes and metamyelocytes) > 1% indicates that a LEFT SHIFT is Present. Laboratory - Chemistry and C hemistry - challengeOrdered By: Kaiser Pan 11-13-2024 AST [Catalytic activity/Vol] 23 U/L <38 [facility] MCV (mean corpuscular volume ) determinationOrdered By: Kaiser Pan 11-13-2024 MCV (RBC) [Entitic vol] 109.0 fL High 80-94 [facility] Mean corpuscular hemoglobin (MCH) determinationOrdered By: Kaiser Pan 11-13-2024 MCH (RBC) [Entitic mass] 37.0 pg High 27.0-32.0 [facility] Mean corpuscular hemoglobin concentration (MCHC) determinationOrdered By: Kaiser Pan 11-13-2024 MCHC (RBC) [Mass/Vol] 33.9 g/dL 32-36 [facility] Mean platelet volume determi nationOrdered By: Kaiser Pan 11-13-2024 Platelet mean volume (Bld) [Entitic vol] 12.4 fL High 6.2-12.0 [facility] Monocyte percentageOrdered B y: Kaiser Pan on 11-13-2024 Monocytes/100 WBC (Bld) 16.6 % High 0-10 [facility] Neutrophil percentageOrdered By: Kaiser Pan on 11-13-2024 Neutrophils/100 WBC (Bld) 69.0 % 47-70 [facility] Nucleated red blood cell per centageOrdered By: Kaiser Pan on 11-13-2024 Nucleated RBC/100 WBC (Bld) [Ratio] 0 % 0-5 [facility] Platelet countOrdered By: Jesse Pan on 11-13-2024 Platelets (Bld) [#/Vol] 128 10*3/uL Low 150-450 [facility] Potassium measurement (mass/ volume)Ordered By: Kaiser Pan on 11-13-2024 Potassium (Unsp spec) [Mass/Vol] 4.3 mmol/L 3.3-5.1 [facility] RBC Auto (Bld) [#/Vol]Ordere d By: Kaiser Pan on 11-13-2024 RBC (Bld) [#/Vol] 3.68 10*6/uL Low 4.6-6.2 [facility] Serum creatinine measurement (mass/volume)Ordered By: Kaiser Pan on 11-13-2024 Creatinine [Mass/Vol] 1.23 mg/dL High 0.70-1.20 [facility] Serum globulin measurementOr dered By: Kaiser Pan 11-13-2024 Globulin (S) [Mass/Vol] 2.7 g/dL 2.2-4.2 [facility] Serum glucose measurement (m ass/volume)Ordered By: Kaiser Pan 11-13-2024 Glucose [Mass/Vol] 89 mg/dL 70-99 [facility] Serum or plasma alanine santos otransferase (ALT) measurementOrdered By: Kaiser Pan 11-13-2024 ALT [Catalytic activity/Vol] 16 U/L <47 [facility] Serum or plasma albumin siobhan urement (mass/volume)Ordered By: Kaiser Pan 11-13-2024 Albumin [Mass/Vol] 4.1 g/dL 3.4-4.8 [facility] Serum or plasma albumin/glob ulin mass ratioOrdered By: Kaiser Pan on 11-13-2024 Albumin/Globulin [Mass ratio] 1.5 {ratio} 0.9-2.4 [facility] Serum or plasma alkaline angle sphatase measurementOrdered By: Kaiser Pan on 11-13-2024 ALP [Catalytic activity/Vol] 59 U/L 40-129 [facility] Serum or plasma calcium siobhan urement (mass/volume)Ordered By: Kaiser Pan on 11-13-2024 Calcium [Mass/Vol] 9.4 mg/dL 7.6-11.0 [facility] Serum or plasma urea nitroge n measurement (mass/volume)Ordered By: Kaiser Pan on 11-13-2024 Urea nitrogen [Mass/Vol] 28 mg/dL High 4-19 [facility] Sodium levelOrdered By: Kaiser Pan on 11-13-2024 Sodium [Moles/Vol] 140 mmol/L 133-145 [facility] TSH DL <= 0.005 mIU/L QnOrde red By: Kaiser Pan on 11-13-2024 TSH Qn 1.960 uIU/mL 0.300-4.200 [facility] Thyroid Stim Hormone (TSH)on 11-13-2024 TSH 1.960 uIU/mL Normal 0.300-4.200 [facility] Comment on above: Performed By: #### L 501.9520, L100.0100, L506.1001, L500.4050 #### [facility] [address] [place], [place] [address], [place], [address] Total proteinOrdered By: Kaiser Pan on 11-13-2024 Protein [Mass/Vol] 6.7 g/dL 5.9-8.4 [facility] Vitamin D,25 Hydroxyon 11-13 Vitamin D 25-OH 55.5 ng/mL Normal 30-100 [facility] Comment on above: Result Comment: Jessica min D Status Deficiency: <20 ng/mL (50nmol/L) Insufficiency: 20-30 ng/mL (50-75 nmol/L) Sufficiency: 30-100 ng/mL (75-250 nmol/L) Toxicity: >100 ng/mL (>250 nmol/L) Performed By: #### L 501.9520, L100.0100, L506.1001, L500.4050 #### [facility] [address] [place], [address] White blood cell (WBC) count Ordered By: Kaiser Pan on 11-13-2024 WBC (Bld) [#/Vol] 5.1 10*3/uL 4.4-11.0 [facility] M100.678on 08-20-2024 M100.678 Normal Reference Ran ge = Negative FLUABV+SARS-CoV-2+RSV Pnl Resp DUSTY+probe GeneXtokia.lt Instrument, PCR method FLUABV+SARS-CoV-2+RSV Pnl Resp DUSTY+probe RESULTS CALLED TO MARIBEL Perez 08/20/24 1314 Anna Villar. REPORT READ BACK BY . FLUABV+SARS-CoV-2+RSV Pnl Resp DUSTY+probe Copy of report sent to Infection Control Printer [id number] 08/20/24 1314 FARHEEN. SARS-CoV-2 (COVID 19) Negative INFLUENZA A A Positive A INFLUENZA B Negative RSV PCR Negative INFLUENZAE A Normal [facility] Comment on above: Performed By: #### L 500.4050, L501.2300, L501.5200, L100.0100 #### [facility] [address] [place], [address] CBC W/Diff, Automatedon 07-29 Absolute Lymph 0.54 X10 3/uL Low 0.83-4.51 [facility] Comment on above: Performed By: #### L 500.4100, L500.3400 #### [facility] [address] [place], [address] Absolute Neut 5.9 X10 3/uL Normal 2.0-7.7 [facility] Comment on above: Performed By: #### L 500.4100, L500.3400 #### [facility] [address] [place], [address] Basophils/100 WBC (Bld) 0.3 % Normal 0-1 [facility] Comment on above: Performed By: #### L 500.4100, L500.3400 #### [facility] [address] [place], [address] Eosinophils/100 WBC (Bld) 1.5 % Normal 0-5 [facility] Comment on above: Performed By: #### L 500.4100, L500.3400 #### [facility] [address] [place], [address] Erythrocyte distribution width (RBC) [Ratio] 14.9 % High 11.6-14.6 [facility] Comment on above: Performed By: #### L 500.4100, L500.3400 #### [facility] [address] [place], [address] Hematocrit (Bld) [Volume fraction] 42.4 % Normal 40-54 [facility] Comment on above: Performed By: #### L 500.4100, L500.3400 #### [facility] [address] [place], [address] Hemoglobin (Bld) [Mass/Vol] 14.0 g/dL Normal 13.0-16.5 [facility] Comment on above: Performed By: #### L 500.4100, L500.3400 #### [facility] [address] [place], [address] IG% 0.300 Normal 0.0-0.9 [facility] Comment on above: Result Comment: IG% - Immature Granulocytes (promyelocytes, myelocytes and metamyelocytes) > 1% indicates that a LEFT SHIFT is Present. Performed By: #### L 500.4100, L500.3400 #### [facility] [address] [place], [address] Lymphocytes/100 WBC (Bld) 7.2 % Low 19-41 [facility] Comment on above: Performed By: #### L 500.4100, L500.3400 #### [facility] [address] [place], [address] MCH (RBC) [Entitic mass] 34.8 pg High 27.0-32.0 [facility] Comment on above: Performed By: #### L 500.4100, L500.3400 #### [facility] [address] [place], [address] MCHC (RBC) [Mass/Vol] 33.0 g/dL Normal 32-36 [facility] Comment on above: Performed By: #### L 500.4100, L500.3400 #### [facility] [address] [place], [address] MCV (RBC) [Entitic vol] 105.5 fL High 80-94 [facility] Comment on above: Performed By: #### L 500.4100, L500.3400 #### [facility] [address] [place], [address] Monocytes/100 WBC (Bld) 12.8 % High 0-10 [facility] Comment on above: Performed By: #### L 500.4100, L500.3400 #### [facility] [address] [place], [address] Neutrophils/100 WBC (Bld) 77.9 % High 47-70 [facility] Comment on above: Performed By: #### L 500.4100, L500.3400 #### [facility] [address] [place], [address] Nucleated RBC (Bld) [#/Vol] 0 10*3/uL Normal 0-5 [facility] Comment on above: Performed By: #### L 500.4100, L500.3400 #### [facility] [address] [place], [address] Platelet mean volume (Bld) [Entitic vol] 12.5 fL High 6.2-12.0 [facility] Comment on above: Performed By: #### L 500.4100, L500.3400 #### [facility] [address] [place], [address] Platelets (Bld) [#/Vol] 153 10*3/uL Normal 150-450 [facility] Comment on above: Performed By: #### L 500.4100, L500.3400 #### [facility] [address], [address] RBC (Bld) [#/Vol] 4.02 10*6/uL Low 4.6-6.2 [facility] Comment on above: Performed By: #### L 500.4100, L500.3400 #### [facility] [address] [place], [address] RDW SD 58.5 fl High 35.1-43.9 [facility] Comment on above: Performed By: #### L 500.4100, L500.3400 #### [facility] [address] [place], [address] WBC (Bld) [#/Vol] 7.5 10*3/uL Normal 4.4-11.0 [facility] Comment on above: Performed By: #### L 500.4100, L500.3400 #### [facility] [address] [place], [address] Chest PA and Lateralon 08-16 Chest PA and Lateral [facility] Services [address] [place] [address] Chest PA and Lateral MR#: [id number] Acct: [id number] Name: BENJIE MILES Rep #: [id number] : 1935 M 88 From: Morales Atkinson i DO PCP: Dr. Kaiser Pan MD Status: REG CLI Study: Chest PA and Lateral Date of Exam: 08/16/24 Exam# [id number] Ordering Dr: Kaiser Pan MD PROCEDURE: PA and lateral chest radiographs, two views REASON FOR EXAM: Pneumonia TECHNIQUE: PA and lateral chest radiographs were obtained. COMPARISON: 08/02/2024 FINDINGS: Similar prominence of the cardiomediastinal silhouette. The thoracic aorta is tortuous. Bones are osteopenic with degenerative changes in the spine. Sternotomy wires remain. Similar scattered coarse interstitial markings in both lungs, without focal airspace consolidation or pleural effusion. RAD/Chest PA and Lateral IMPRESSION: Similar scattered coarse interstitial markings in both lungs without focal pneumonia or pleural effusion. If there are persistent symptoms, short-term follow-up CT evaluation may be considered. Reading [facility] CC: Dr. Kaiser Pan MD Checkering Machine Operator: Signed Normal [facility] Comprehensive Metabolic Prof ilon 08-16-2024 Albumin [Mass/Vol] 3.7 g/dL Normal 3.2-5.0 [facility] Comment on above: Performed By: #### L 500.4100, L500.3400 #### [facility] [address] [place], [address] Albumin/Globulin [Mass ratio] 1.0 {ratio} Normal 0.9-2.4 [facility] Comment on above: Performed By: #### L 500.4100, L500.3400 #### [facility] [address] [place], [address] ALK P 66 U/L Normal 45-117 [facility] Comment on above: Performed By: #### L 500.4100, L500.3400 #### [facility] [address] [place], [address] ALT [Catalytic activity/Vol] 26 U/L Normal 16-61 [facility] Comment on above: Performed By: #### L 500.4100, L500.3400 #### [facility] [address] [place], [address] AST [Catalytic activity/Vol] 27 U/L Normal 15-37 [facility] Comment on above: Performed By: #### L 500.4100, L500.3400 #### [facility] [address] [place], [address] Bilirubin [Mass/Vol] 0.90 mg/dL Normal 0.20-1.00 [facility] Comment on above: Result Comment: For patients on eltrombopag therapy, use of Dimension [place] TBIL is not recommended. Performed By: #### L 500.4100, L500.3400 #### [facility] [address] [place], [address] BUN/CRE 21.3 RATIO High 10-20 [facility] Comment on above: Performed By: #### L 500.4100, L500.3400 #### [facility] [address] [place], [address] CA,Total 9.3 mg/dL Normal 8.5-10.1 [facility] Comment on above: Performed By: #### L 500.4100, L500.3400 #### [facility] [address] [place], [address] Chloride [Moles/Vol] 104 mmol/L Normal 98-107 [facility] Comment on above: Performed By: #### L 500.4100, L500.3400 #### [facility] [address] [place], [address] CO2 [Moles/Vol] 25.0 mmol/L Normal 21.0-32.0 [facility] Comment on above: Performed By: #### L 500.4100, L500.3400 #### [facility] [address] [place], [address] Creatinine [Mass/Vol] 1.22 mg/dL Normal 0.70-1.30 [facility] Comment on above: Result Comment: The validity of the calculated GFR GFRAA in patients over 70 years has not been determined. Clinical correlation is essential. Performed By: #### L 500.4100, L500.3400 #### [facility] [address] [place], [address] EST GFR - AA 72 mL/min Normal >60 [facility] Comment on above: Result Comment: Afri can Georgian GFR Calc Performed By: #### L 500.4100, L500.3400 #### [facility] [address], [address] GAP 9 Normal 5-15 [facility] Comment on above: Performed By: #### L 500.4100, L500.3400 #### [facility] [address] [place], [address] GFR/1.73 sq M.predicted among non-blacks MDRD (S/P/Bld) [Vol rate/Area] 60 mL/min/{1.73_m2} Normal >60 [facility] Comment on above: Result Comment: Non- GFR Calc Performed By: #### L 500.4100, L500.3400 #### [facility] [address] [place], [address] Globulin (S) [Mass/Vol] 3.6 g/dL Normal 2.2-4.2 [facility] Comment on above: Performed By: #### L 500.4100, L500.3400 #### [facility] [address] [place], [address] Glucose [Mass/Vol] 96 mg/dL Normal 74-106 [facility] Comment on above: Performed By: #### L 500.4100, L500.3400 #### [facility] [address] [place], [address] Potassium [Moles/Vol] 3.9 mmol/L Normal 3.5-5.1 [facility] Comment on above: Performed By: #### L 500.4100, L500.3400 #### [facility] [address] [place], [address] Sodium [Moles/Vol] 138 mmol/L Normal 136-145 [facility] Comment on above: Performed By: #### L 500.4100, L500.3400 #### [facility] [address] [place], [address] T PROT 7.3 g/dL Normal 6.4-8.2 [facility] Comment on above: Performed By: #### L 500.4100, L500.3400 #### [facility] [address] [place], [address] Urea nitrogen [Mass/Vol] 26 mg/dL High 7-18 [facility] Comment on above: Performed By: #### L 500.4100, L500.3400 #### [facility] [address] [place], [address] Thyroid Stim Hormone (TSH)on 08-16-2024 TSH 1.660 uIU/mL Normal 0.358-3.740 [facility] Comment on above: Performed By: #### L 500.4100, L500.3400 #### [facility] [address] [place], [address] Vitamin D,25 Hydroxyon 08-16 Vitamin D 25-OH 34.7 ng/mL Normal [facility] Comment on above: Result Comment: Jessica min D 25(OH) Status Range Deficiency <20 ng/mL (50nmol/L) Insufficiency 20 - 30 ng/mL (50 - 75 nmol/L) Sufficiency 30 - 100 ng/mL (75 - 250 nmol/L) Toxicity >100 ng/mL (>250 nmol/L) Performed By: #### L 500.4100, L500.3400 #### [facility] [address] [place], [address] L3410.9998on 08-15-2024 [facility]. COMMENT Normal . [facility] Comment on above: Order Comment: [id number] 4STOOL CX Result Comment: Test Ordered: [id number] Stool Culture Salmonella/Shigella Screen Note: CB Final report Reference Range: . Result 1 Comment CB Reference Range: . No Salmonella or Shigella recovered. Campylobacter Culture Note: CB Final report Reference Range: . Result 1 Comment CB Reference Range: . No Campylobacter species isolated. E coli Shiga Toxin EIA Negative Reference Range: Negative Performed at: - [facility] [address] [id number] Retail Loss Prevention Officer: Rufus Jacinto PhD, Phone: [phone] Performed By: #### L 500.4100, L500.3400 #### [facility] [address] [place], [place], [address] Abdomen/Pelvis WITH Contrast on 08-13-2024 Abdomen/Pelvis WITH Contrast [facility] Imaging Services [address] [place] [address]01 Abdomen/Pelvis WITH Contrast MR#: [id number] Acct: [id number] Name: BENJIE MILES Rep #: [id number] : 1935 M 88 From: Mohan casillas MD PCP: Dr. Kaiser Pan MD Status: [facility] Study: Abdomen/Pelvis WITH Contrast Date of Exam: Exam# [id number] Ordering Dr: Kaiser Pan MD PROCEDURE: ABDOMEN/PELVIS WITH CONTRAST REASON FOR EXAM: 1-1/2 week history of diarrhea. TECHNIQUE: Abdomen and pelvis CT with intravenous contrast. Oral contrast was also used. IV CONTRAST: 100 cc of Isovue-300. COMPARISON: Comparison is made with prior study dated October 25, 2021. FINDINGS: Lung bases: Clear coronary artery calcification. Liver: Unremarkable. Gallbladder: Unremarkable. Spleen: Unremarkable. Pancreas: Unremarkable. Adrenals: Unremarkable. Kidneys: Stable left renal cyst measuring 5.1 cm by 5.9 cm. Bladder: Distended urinary bladder. Central prostatic calcification. There is evidence of prior anterior abdominal hernia repair with a mesh. Reproductive Organs: Unremarkable. Bowel: Diffuse gastric wall thickening with thickened folds. Clinical correlation recommended. Diffuse sigmoid diverticulosis with no radiographic evidence of diverticulitis at this time. Appendix: Normal. Lymph nodes: No suspicious lymph node enlargement. Vasculature: Mild diffuse atherosclerotic calcifications are noted. Peritoneum / Retroperitoneum: No ascites. No free air. Bones: Degenerative changes of the spine. CT/Abdomen/Pelvis WITH Contrast IMPRESSION: Diffuse gastric wall thickening with prominent folds. Clinical correlation is recommended. Sigmoid diverticulosis with no radiographic evidence of diverticulitis. Distention of the urinary bladder. One or more dose reduction techniques were used (e.g., Automated exposure control, adjustment of the mA and/or kV according to patient size, use of iterative reconstruction technique). Reading Location: [id number] CC: Dr. Kaiser Pan MD Checkering Machine Operator: Signed Normal [facility] CDIFF (PCR)on 08-10-2024 CDIFF Pending 027 [id number] [id number] Presumptive Negative *for epidemiolologic???use C. Diff PCR Negative- No toxigenic C. Diff Detected Normal [facility] Comment on above: Performed By: #### L 500.4100, L500.3400 #### [facility] [address] [place], [place], [id number] Stool Occult Blood iFOBon STOB Negative Normal [facility] Comment on above: Performed By: #### L 500.4100, L500.3400 #### [facility] [address] [place], [address] Basic Metabolic Profile (BMP )on 08-09-2024 BUN/CRE 18.8 RATIO Normal 10-20 [facility] Comment on above: Performed By: #### L 500.4050, L501.2300, L501.5200, L100.0100 #### [facility] [address] [place], [address] CA,Total 9.6 mg/dL Normal 8.5-10.1 [facility] Comment on above: Performed By: #### L 500.4050, L501.2300, L501.5200, L100.0100 #### [facility] [address] [place], [address] Chloride [Moles/Vol] 106 mmol/L Normal 98-107 [facility] Comment on above: Performed By: #### L 500.4050, L501.2300, L501.5200, L100.0100 #### [facility] [address] [place], [address] CO2 [Moles/Vol] 26.0 mmol/L Normal 21.0-32.0 [facility] Comment on above: Performed By: #### L 500.4050, L501.2300, L501.5200, L100.0100 #### [facility] [address] [place], [address] Creatinine [Mass/Vol] 1.28 mg/dL Normal 0.70-1.30 [facility] Comment on above: Result Comment: The validity of the calculated GFR GFRAA in patients over 70 years has not been determined. Clinical correlation is essential. Performed By: #### L 500.4050, L501.2300, L501.5200, L100.0100 #### [facility] [address] [place], [address] EST GFR - AA 68 mL/min Normal >60 [facility] Comment on above: Result Comment: Afri can Georgian GFR Calc Performed By: #### L 500.4050, L501.2300, L501.5200, L100.0100 #### [facility] [address] [place], [address] GAP 5 Normal 5-15 [facility] Comment on above: Performed By: #### L 500.4050, L501.2300, L501.5200, L100.0100 #### [facility] [address] [place], [address] GFR/1.73 sq M.predicted among non-blacks MDRD (S/P/Bld) [Vol rate/Area] 57 mL/min/{1.73_m2} Low >60 [facility] Comment on above: Result Comment: Non- GFR Calc Performed By: #### L 500.4050, L501.2300, L501.5200, L100.0100 #### [facility] [address] [place], [address] Glucose [Mass/Vol] 121 mg/dL High 74-106 [facility] Comment on above: Result Comment: Fast ing Glucose result from 100 to 125 mg/dL suggests IMPAIRED HOMEOSTASIS per A.D.A. criteria. Performed By: #### L 500.4050, L501.2300, L501.5200, L100.0100 #### [facility] [address] [place], [address] Potassium [Moles/Vol] 4.5 mmol/L Normal 3.5-5.1 [facility] Comment on above: Performed By: #### L 500.4050, L501.2300, L501.5200, L100.0100 #### [facility] [address] [place], [address] Sodium [Moles/Vol] 137 mmol/L Normal 136-145 [facility] Comment on above: Performed By: #### L 500.4050, L501.2300, L501.5200, L100.0100 #### [facility] [address] [place], [address] Urea nitrogen [Mass/Vol] 24 mg/dL High 7-18 [facility] Comment on above: Performed By: #### L 500.4050, L501.2300, L501.5200, L100.0100 #### [facility] [address] [place], [address] CBC W/Diff, Automatedon 02-2024 Absolute Lymph 0.54 X10 3/uL Low 0.83-4.51 [facility] Comment on above: Performed By: #### L 500.4050, L501.2300, L501.5200, L100.0100 #### [facility] [address] [place], [address] Absolute Neut 5.7 X10 3/uL Normal 2.0-7.7 [facility] Comment on above: Performed By: #### L 500.4050, L501.2300, L501.5200, L100.0100 #### [facility] [address] [place], [address] Basophils/100 WBC (Bld) 0.1 % Normal 0-1 [facility] Comment on above: Performed By: #### L 500.4050, L501.2300, L501.5200, L100.0100 #### [facility] [address] [place], [address] Eosinophils/100 WBC (Bld) 0.8 % Normal 0-5 [facility] Comment on above: Performed By: #### L 500.4050, L501.2300, L501.5200, L100.0100 #### [facility] [address] [place], [address] Erythrocyte distribution width (RBC) [Ratio] 14.7 % High 11.6-14.6 [facility] Comment on above: Performed By: #### L 500.4050, L501.2300, L501.5200, L100.0100 #### [facility] [address] [place], [address] Hematocrit (Bld) [Volume fraction] 42.1 % Normal 40-54 [facility] Comment on above: Performed By: #### L 500.4050, L501.2300, L501.5200, L100.0100 #### [facility] [address] [place], [address] Hemoglobin (Bld) [Mass/Vol] 14.4 g/dL Normal 13.0-16.5 [facility] Comment on above: Performed By: #### L 500.4050, L501.2300, L501.5200, L100.0100 #### [facility] [address] [place], [address] IG% 0.500 Normal 0.0-0.9 [facility] Comment on above: Result Comment: IG% - Immature Granulocytes (promyelocytes, myelocytes and metamyelocytes) > 1% indicates that a LEFT SHIFT is Present. Performed By: #### L 500.4050, L501.2300, L501.5200, L100.0100 #### [facility] [address] [place], [address] Lymphocytes/100 WBC (Bld) 7.4 % Low 19-41 [facility] Comment on above: Performed By: #### L 500.4050, L501.2300, L501.5200, L100.0100 #### [facility] [address] [place], [address] MCH (RBC) [Entitic mass] 35.7 pg High 27.0-32.0 [facility] Comment on above: Performed By: #### L 500.4050, L501.2300, L501.5200, L100.0100 #### [facility] [address] [place], [address] MCHC (RBC) [Mass/Vol] 34.2 g/dL Normal 32-36 [facility] Comment on above: Performed By: #### L 500.4050, L501.2300, L501.5200, L100.0100 #### [facility] [address] [place], [address] MCV (RBC) [Entitic vol] 104.5 fL High 80-94 [facility] Comment on above: Performed By: #### L 500.4050, L501.2300, L501.5200, L100.0100 #### [facility] [address] [place], [address] Monocytes/100 WBC (Bld) 13.3 % High 0-10 [facility] Comment on above: Performed By: #### L 500.4050, L501.2300, L501.5200, L100.0100 #### [facility] [address] [place], [address] Neutrophils/100 WBC (Bld) 77.9 % High 47-70 [facility] Comment on above: Performed By: #### L 500.4050, L501.2300, L501.5200, L100.0100 #### [facility] [address] [place], [address] Nucleated RBC (Bld) [#/Vol] 0 10*3/uL Normal 0-5 [facility] Comment on above: Performed By: #### L 500.4050, L501.2300, L501.5200, L100.0100 #### [facility] [address] [place], [address] Platelet mean volume (Bld) [Entitic vol] 11.9 fL Normal 6.2-12.0 [facility] Comment on above: Performed By: #### L 500.4050, L501.2300, L501.5200, L100.0100 #### [facility] [address] [place], [address] Platelets (Bld) [#/Vol] 130 10*3/uL Low 150-450 [facility] Comment on above: Performed By: #### L 500.4050, L501.2300, L501.5200, L100.0100 #### [facility] [address] [place], [address] RBC (Bld) [#/Vol] 4.03 10*6/uL Low 4.6-6.2 [facility] Comment on above: Performed By: #### L 500.4050, L501.2300, L501.5200, L100.0100 #### [facility] [address] [place], [address] RDW SD 57.2 fl High 35.1-43.9 [facility] Comment on above: Performed By: #### L 500.4050, L501.2300, L501.5200, L100.0100 #### [facility] [address] [place], [address] WBC (Bld) [#/Vol] 7.3 10*3/uL Normal 4.4-11.0 [facility] Comment on above: Performed By: #### L 500.4050, L501.2300, L501.5200, L100.0100 #### [facility] [address] [place], [address] Lipid Profileon 08-09-2024 Cholesterol [Mass/Vol] 212 mg/dL High 200 [facility] Comment on above: Result Comment: <200 mg/dL Desirable 200-240 mg/dL Borderline >240 mg/dL High Risk Performed By: #### L 500.4100, L500.3400 #### [facility] [address] [place], [address] Cholesterol in HDL [Mass/Vol] 62 mg/dL Normal [facility] Comment on above: Result Comment: The drugs N-Acetylcysteine and Metamizole may falsely depress this assay. Reference Range HDL <40 mg/dL Low HDL Cholesterol HDL >or= 60 mg/dL High HDL Cholesterol Performed By: #### L 500.4100, L500.3400 #### [facility] [address] [place], [address] Cholesterol in LDL [Mass/Vol] 113 mg/dL Normal 0-130 [facility] Comment on above: Performed By: #### L 500.4100, L500.3400 #### [facility] [address] [place], [address] Cholesterol in VLDL [Mass/Vol] 37 mg/dL Normal 5-40 [facility] Comment on above: Performed By: #### L 500.4100, L500.3400 #### [facility] [address] [place], [address] Triglyceride [Mass/Vol] 187 mg/dL Normal [facility] Comment on above: Result Comment: The drugs N-Acetylcysteine and Metamizole may falsely depress this assay. Serum Triglycerides Reference Interval Normal <150 mg/dL Borderline high 150 - 199 mg/dL High 200 - 499 mg/dL Very High > or = 500 mg/dL Performed By: #### L 500.4100, L500.3400 #### [facility] [address] [place], [address] Liver Profileon 08-09-2024 Albumin [Mass/Vol] 3.4 g/dL Normal 3.2-5.0 [facility] Comment on above: Performed By: #### L 500.4100, L500.3400 #### [facility] [address] [place], [address] ALK P 62 U/L Normal 45-117 [facility] Comment on above: Performed By: #### L 500.4100, L500.3400 #### [facility] [address] [place], [address] ALT [Catalytic activity/Vol] 22 U/L Normal 16-61 [facility] Comment on above: Performed By: #### L 500.4100, L500.3400 #### [facility] [address] [place], [address] AST [Catalytic activity/Vol] 27 U/L Normal 15-37 [facility] Comment on above: Performed By: #### L 500.4100, L500.3400 #### [facility] [address] [place], [address] Bilirubin [Mass/Vol] 0.90 mg/dL Normal 0.20-1.00 [facility] Comment on above: Result Comment: For patients on eltrombopag therapy, use of Dimension [place] TBIL is not recommended. Performed By: #### L 500.4100, L500.3400 #### [facility] [address] [place], [address] Bilirubin.direct [Mass/Vol] 0.28 mg/dL Normal 0.00-0.30 [facility] Comment on above: Performed By: #### L 500.4100, L500.3400 #### [facility] [address] [place], [address] Globulin (S) [Mass/Vol] 3.6 g/dL Normal 2.2-4.2 [facility] Comment on above: Performed By: #### L 500.4100, L500.3400 #### [facility] [address] [place], [address] T PROT 7.0 g/dL Normal 6.4-8.2 [facility] Comment on above: Performed By: #### L 500.4100, L500.3400 #### [facility] [address] [place], [address] Basic Metabolic Profile (BMP )on 08-02-2024 BUN/CRE 20.3 RATIO High 10-20 [facility] Comment on above: Performed By: #### L 500.4050, L501.2300, L501.5200, L100.0100 #### [facility] [address] [place], [address] CA,Total 8.9 mg/dL Normal 8.5-10.1 [facility] Comment on above: Performed By: #### L 500.4050, L501.2300, L501.5200, L100.0100 #### [facility] [address] [place], [address] Chloride [Moles/Vol] 104 mmol/L Normal 98-107 [facility] Comment on above: Performed By: #### L 500.4050, L501.2300, L501.5200, L100.0100 #### [facility] [address] [place], [address] CO2 [Moles/Vol] 27.0 mmol/L Normal 21.0-32.0 [facility] Comment on above: Performed By: #### L 500.4050, L501.2300, L501.5200, L100.0100 #### [facility] [address] [place], [address] Creatinine [Mass/Vol] 1.38 mg/dL High 0.70-1.30 [facility] Comment on above: Result Comment: The validity of the calculated GFR GFRAA in patients over 70 years has not been determined. Clinical correlation is essential. Performed By: #### L 500.4050, L501.2300, L501.5200, L100.0100 #### [facility] [address] [place], [address] EST GFR - AA 63 mL/min Normal >60 [facility] Comment on above: Result Comment: Afri can Georgian GFR Calc Performed By: #### L 500.4050, L501.2300, L501.5200, L100.0100 #### [facility] [address] [place], [address] GAP 6 Normal 5-15 [facility] Comment on above: Performed By: #### L 500.4050, L501.2300, L501.5200, L100.0100 #### [facility] [address] [place], [address] GFR/1.73 sq M.predicted among non-blacks MDRD (S/P/Bld) [Vol rate/Area] 52 mL/min/{1.73_m2} Low >60 [facility] Comment on above: Result Comment: Non- GFR Calc Performed By: #### L 500.4050, L501.2300, L501.5200, L100.0100 #### [facility] [address] [place], [address] Glucose [Mass/Vol] 111 mg/dL High 74-106 [facility] Comment on above: Result Comment: Fast ing Glucose result from 100 to 125 mg/dL suggests IMPAIRED HOMEOSTASIS per A.D.A. criteria. Performed By: #### L 500.4050, L501.2300, L501.5200, L100.0100 #### [facility] [address] [place], [address] Potassium [Moles/Vol] 4.1 mmol/L Normal 3.5-5.1 [facility] Comment on above: Performed By: #### L 500.4050, L501.2300, L501.5200, L100.0100 #### [facility] [address] [place], [address] Sodium [Moles/Vol] 138 mmol/L Normal 136-145 [facility] Comment on above: Performed By: #### L 500.4050, L501.2300, L501.5200, L100.0100 #### [facility] [address] [place], [address] Urea nitrogen [Mass/Vol] 28 mg/dL High 7-18 [facility] Comment on above: Performed By: #### L 500.4050, L501.2300, L501.5200, L100.0100 #### [facility] [address] [place], [address] CBC W/Diff, Automatedon 02-0 6-2024 Absolute Lymph 0.25 X10 3/uL Low 0.83-4.51 [facility] Comment on above: Performed By: #### L 500.4050, L501.2300, L501.5200, L100.0100 #### [facility] [address] [place], [address] Absolute Neut 2.9 X10 3/uL Normal 2.0-7.7 [facility] Comment on above: Performed By: #### L 500.4050, L501.2300, L501.5200, L100.0100 #### [facility] [address] [place], [address] Basophils/100 WBC (Bld) 0.2 % Normal 0-1 [facility] Comment on above: Performed By: #### L 500.4050, L501.2300, L501.5200, L100.0100 #### [facility] [address] [place], [address] Eosinophils/100 WBC (Bld) 1.8 % Normal 0-5 [facility] Comment on above: Performed By: #### L 500.4050, L501.2300, L501.5200, L100.0100 #### [facility] [address] [place], [address] Erythrocyte distribution width (RBC) [Ratio] 15.2 % High 11.6-14.6 [facility] Comment on above: Performed By: #### L 500.4050, L501.2300, L501.5200, L100.0100 #### [facility] [address] [place], [address] Hematocrit (Bld) [Volume fraction] 40.8 % Normal 40-54 [facility] Comment on above: Performed By: #### L 500.4050, L501.2300, L501.5200, L100.0100 #### [facility] [address] [place], [address] Hemoglobin (Bld) [Mass/Vol] 13.4 g/dL Normal 13.0-16.5 [facility] Comment on above: Performed By: #### L 500.4050, L501.2300, L501.5200, L100.0100 #### [facility] [address] [place], [address] IG% 0.400 Normal 0.0-0.9 [facility] Comment on above: Result Comment: IG% - Immature Granulocytes (promyelocytes, myelocytes and metamyelocytes) > 1% indicates that a LEFT SHIFT is Present. Performed By: #### L 500.4050, L501.2300, L501.5200, L100.0100 #### [facility] [address] [place], [address] Lymphocytes/100 WBC (Bld) 5.6 % Low 19-41 [facility] Comment on above: Performed By: #### L 500.4050, L501.2300, L501.5200, L100.0100 #### [facility] [address] [place], [address] MCH (RBC) [Entitic mass] 35.2 pg High 27.0-32.0 [facility] Comment on above: Performed By: #### L 500.4050, L501.2300, L501.5200, L100.0100 #### [facility] [address] [place], [address] MCHC (RBC) [Mass/Vol] 32.8 g/dL Normal 32-36 [facility] Comment on above: Performed By: #### L 500.4050, L501.2300, L501.5200, L100.0100 #### [facility] [address] [place], [address] MCV (RBC) [Entitic vol] 107.1 fL High 80-94 [facility] Comment on above: Performed By: #### L 500.4050, L501.2300, L501.5200, L100.0100 #### [facility] [address] [place], [address] Monocytes/100 WBC (Bld) 28.4 % High 0-10 [facility] Comment on above: Performed By: #### L 500.4050, L501.2300, L501.5200, L100.0100 #### [facility] [address] [place], [address] Neutrophils/100 WBC (Bld) 63.6 % Normal 47-70 [facility] Comment on above: Performed By: #### L 500.4050, L501.2300, L501.5200, L100.0100 #### [facility] [address] [place], [address] Nucleated RBC (Bld) [#/Vol] 0 10*3/uL Normal 0-5 [facility] Comment on above: Performed By: #### L 500.4050, L501.2300, L501.5200, L100.0100 #### [facility] [address] [place], [address] Platelet mean volume (Bld) [Entitic vol] 12.5 fL High 6.2-12.0 [facility] Comment on above: Performed By: #### L 500.4050, L501.2300, L501.5200, L100.0100 #### [facility] [address] [place], [address] Platelets (Bld) [#/Vol] 121 10*3/uL Low 150-450 [facility] Comment on above: Performed By: #### L 500.4050, L501.2300, L501.5200, L100.0100 #### [facility] [address] [place], [address] RBC (Bld) [#/Vol] 3.81 10*6/uL Low 4.6-6.2 [facility] Comment on above: Performed By: #### L 500.4050, L501.2300, L501.5200, L100.0100 #### [facility] [address] [place], [address] RDW SD 61.1 fl High 35.1-43.9 [facility] Comment on above: Performed By: #### L 500.4050, L501.2300, L501.5200, L100.0100 #### [facility] [address] [place], [address] WBC (Bld) [#/Vol] 4.5 10*3/uL Normal 4.4-11.0 [facility] Comment on above: Performed By: #### L 500.4050, L501.2300, L501.5200, L100.0100 #### [facility] [address] [place], [address] Chest PA and Lateralon 08-02 Chest PA and Lateral [facility] [address] [place] [address] Chest PA and Lateral MR#: [id number] Acct: [id number] Name: BENJIE MILES Rep #: [id number] : 1935 M 88 From: Cal Vargas MD PCP: Dr. Kaiser Pan MD Status: REG CLI Study: Chest PA and Lateral Date of Exam: 08/02/24 Exam# [id number] Ordering Dr: Kaiser Pan MD PROCEDURE: CHEST PA AND LATERAL REASON FOR EXAM: Pneumonia. TECHNIQUE: Frontal and lateral views of the chest. COMPARISON: 01/21/2023. FINDINGS: The heart is enlarged. The mediastinal contour is unremarkable. Mild right basilar infiltrate suspicious for pneumonia. The bones are unremarkable. Prior sternotomy. RAD/Chest PA and Lateral IMPRESSION: Mild right basilar infiltrate suspicious for pneumonia. Reading Location: [facility] CC: Dr. Kaiser Pan MD Checkering Machine Operator: Signed Normal [facility] M100.678on 08-02-2024 M100.678 Pending SARS-CoV-2 (COVID 19) Negative INFLUENZA A A Positive A INFLUENZA B Negative RSV PCR Negative INFLUENZAE A Normal [facility] Comment on above: Performed By: #### L 500.4050, L501.2300, L501.5200, L100.0100 #### [facility] [address] [place], [address] Cardiology Visit Reporton Cardiology Visit Report [facility] [address] [place], [place] [address] OFFICE VISIT Date of Service: 07/17/24 MR#: [id number] Acct: [id number] Name: BENJIE MILES Rep #: [id number] : 1935 Provider: JOSIAH alanis Age/Sex: 88/M [place] [facility] [place] Signed HPI HPI History of Present Illness Details: BENJIE MILES, is a 88 year old white male who presents to the office today for a cardiovascular outpatient follow-up with a history of coronary artery disease, PCI at [facility] on 10/19/2007 with LCx PTCA/stent procedure, CABG with internal mammary to the anterior descending, saphenous vein grafting to the diagonal branch of the right coronary artery as well as diagonal branch of the anterior descending in 2004, atrial dysrhythmia status post ablation at [facility] on 10/26/2006 and 06/23/2005, aortic valve stenosis, hyperlipidemia, hypertension, and PARDEEP with Bipap therapy. He acknowledges weekly chest soreness. This occurs at rest and located midsternal and right side chest. This improves with nitroglycerin. He denies palpitations. He acknowledges bilateral lower extremity edema. He denies shortness of breath with activity, shortness of breath at rest, or orthopnea. He acknowledges lightheadedness when standing too quickly. He denies dizziness, near- syncope, or syncope. He denies fatigue. Intake Vital Signs 01/11/24 14:07 01/20/24 14:49 07/17/24 11:47 Height 5 ft 9 in 5 ft 9 in 5 ft 9 in Weight: 257 lb BMI 37.9 BP 120/67 Blood Pressure Location Lt brachial Position Sitting Respiration 16 Pulse 67 Pulse Source NIBP Intake Visit Reasons: 6 M FU Iridologist Required: No Accompanied by: Son Is patient in pain?: No Allergies tramadol (From [facility]) Adverse Reaction (Verified 07/17/24 13:09) Other Medications ???Medication ???Instructions ???Recorded ???Confirmed ???Type tamsulosin 0.4 mg capsule 0.4 mg PO DAILY URINE FLOW 03/06/16 07/17/24 History aspirin 81 mg tablet,delayed 81 mg PO DAILY heart health 07/04/18 07/17/24 History release (Marisela Low Dose Aspirin) omeprazole 40 mg capsule,delayed 40 mg PO DAILY acid reflux 07/04/18 07/17/24 History release potassium chloride 20 mEq 20 meq PO DAILY supplement 07/04/18 07/17/24 History tablet,extended release acetaminophen 500 mg tablet 1,000 mg (2 x 500 mg) PO Q6H PRN 11/05/21 07/17/24 Rx PRN Pain Score 1-10 #0 tabs multivitamin 1 tab PO DAILY 04/15/22 07/17/24 History furosemide 40 mg tablet 40 mg PO DAILY PRN edema 11/18/22 07/17/24 History nitroglycerin 0.4 mg sublingual 0.4 mg sublingual Q5-15M PRN Chest 07/17/24 07/17/24 Rx tablet Pain #25 tabs ranolazine 1,000 mg 1,000 mg PO Q12H 07/17/24 History tablet,extended release,12 hr Ejection fraction %: 70 Have you fallen in the past year?: No PFSH Medical History Bilateral lower extremity edema Dyslipidemia COVID-19 COVID Aortic valve stenosis, nonrheumatic Coronary artery disease Hypokalemia Gastroesophageal reflux disease Hyperlipidemia Benign prostate hyperplasia Debility Weakness Pressure injury of left buttock, stage 1 Stenosis, spinal, lumbar Neck pain Segmental and somatic dysfunction of thoracic region Segmental and somatic dysfunction of pelvic region Segmental and somatic dysfunction of lumbar region Segmental and somatic dysfunction of cervical region Degenerative disc disease, cervical Sleep apnea, obstructive History of atrial fibrillation Nonrheumatic aortic (valve) insufficiency Nonrheumatic aortic (valve) stenosis Pure hypercholesterolemia Essential hypertension Neuropathic pain Hypokalemia GERD (gastroesophageal reflux disease) BPH (benign prostatic hyperplasia) Left trigger finger Left carpal tunnel syndrome Benign paroxysmal positional vertigo Fall Dizziness Debility Laceration of head Vertigo Dyspnea on exertion Prinzmetal angina CAD (coronary artery disease) Malignant pericardial effusion Atrial flutter Palpitations Shortness of breath Precordial chest pain Aortocoronary bypass status History of percutaneous transluminal coronary angioplasty Abnormal result of cardiovascular function study, unspecified Pain in limb Dizziness and giddiness Fatigue Pain in left shoulder Atherosclerosis of coronary artery bypass graft(s), unspecified, with other forms of angina pectoris Intermittent claudication Surgical History H/O knee surgery H/O shoulder surgery H/O shoulder surgery History of carpal tunnel surgery History of bilateral knee replacement Status post total knee replacement, right Hx of CABG ( 05/2005) History of arthroscopy ( 07/2011) H/O cardiac radiofrequency ablation ( 10/2006) History of PTCA (more content not included)... Normal [facility] CBC W/Diff, Automatedon 01-26 Absolute Lymph 0.57 X10 3/uL Low 0.83-4.51 [facility] Comment on above: Performed By: #### L 500.4050, L501.2300, L501.5200, L100.0100 #### [facility] [address] [place], [address] Absolute Neut 3.0 X10 3/uL Normal 2.0-7.7 [facility] Comment on above: Performed By: #### L 500.4050, L501.2300, L501.5200, L100.0100 #### [facility] [address] [place], [address] Basophils/100 WBC (Bld) 0.6 % Normal 0-1 [facility] Comment on above: Performed By: #### L 500.4050, L501.2300, L501.5200, L100.0100 #### [facility] [address] [place], [address] Eosinophils/100 WBC (Bld) 3.7 % Normal 0-5 [facility] Comment on above: Performed By: #### L 500.4050, L501.2300, [id number], L100.0100 #### [facility] [address] [place], [address] Erythrocyte distribution width (RBC) [Ratio] 14.3 % Normal 11.6-14.6 [facility] Comment on above: Performed By: #### L 500.4050, L501.2300, L501.5200, L100.0100 #### [facility] [address] [place], [address] Hematocrit (Bld) [Volume fraction] 40.9 % Normal 40-54 [facility] Comment on above: Performed By: #### L 500.4050, L501.2300, L501.5200, L100.0100 #### [facility] [address] [place], [address] Hemoglobin (Bld) [Mass/Vol] 13.6 g/dL Normal 13.0-16.5 [facility] Comment on above: Performed By: #### L 500.4050, L501.2300, L501.5200, L100.0100 #### [facility] [address] [place], [address] IG% 0.400 Normal 0.0-0.9 [facility] Comment on above: Result Comment: IG% - Immature Granulocytes (promyelocytes, myelocytes and metamyelocytes) > 1% indicates that a LEFT SHIFT is Present. Performed By: #### L 500.4050, L501.2300, L501.5200, L100.0100 #### [facility] [address] [place], [address] Lymphocytes/100 WBC (Bld) 11.8 % Low 19-41 [facility] Comment on above: Performed By: #### L 500.4050, L501.2300, L501.5200, L100.0100 #### [facility] [address] [place], [address] MCH (RBC) [Entitic mass] 36.8 pg High 27.0-32.0 [facility] Comment on above: Performed By: #### L 500.4050, L501.2300, L501.5200, L100.0100 #### [facility] [address] [place], [address] MCHC (RBC) [Mass/Vol] 33.3 g/dL Normal 32-36 [facility] Comment on above: Performed By: #### L 500.4050, L501.2300, L501.5200, L100.0100 #### [facility] [address] [place], [address] MCV (RBC) [Entitic vol] 110.5 fL High 80-94 [facility] Comment on above: Performed By: #### L 500.4050, L501.2300, [id number], L100.0100 #### [facility] [address] [place], [address] Monocytes/100 WBC (Bld) 20.7 % High 0-10 [facility] Comment on above: Performed By: #### L 500.4050, L501.2300, L501.5200, L100.0100 #### [facility] [address] [place], [address] Neutrophils/100 WBC (Bld) 62.8 % Normal 47-70 [facility] Comment on above: Performed By: #### L 500.4050, L501.2300, L501.5200, L100.0100 #### [facility] [address] [place], [address] Nucleated RBC (Bld) [#/Vol] 0 10*3/uL Normal 0-5 [facility] Comment on above: Performed By: #### L 500.4050, L501.2300, L501.5200, L100.0100 #### [facility] [address] [place], [address] Platelet mean volume (Bld) [Entitic vol] 12.6 fL High 6.2-12.0 [facility] Comment on above: Performed By: #### L 500.4050, L501.2300, L501.5200, L100.0100 #### [facility] [address] [place], [address] Platelets (Bld) [#/Vol] 139 10*3/uL Low 150-450 [facility] Comment on above: Performed By: #### L 500.4050, L501.2300, L501.5200, L100.0100 #### [facility] [address] [place], [address] RBC (Bld) [#/Vol] 3.70 10*6/uL Low 4.6-6.2 [facility] Comment on above: Performed By: #### L 500.4050, L501.2300, L501.5200, L100.0100 #### [facility] [address] [place], [address] RDW SD 58.6 fl High 35.1-43.9 [facility] Comment on above: Performed By: #### L 500.4050, L501.2300, L501.5200, L100.0100 #### [facility] [address] [place], [address] WBC (Bld) [#/Vol] 4.8 10*3/uL Normal 4.4-11.0 [facility] Comment on above: Performed By: #### L 500.4050, L501.2300, L501.5200, L100.0100 #### [facility] [address] [place], [address] Comprehensive Metabolic [facility] 02-14-2024 Albumin [Mass/Vol] 3.5 g/dL Normal 3.2-5.0 [facility] Comment on above: Performed By: #### L 500.4050, L501.2300, L501.5200, L100.0100 #### [facility] [address] [place], [address] Albumin/Globulin [Mass ratio] 1.1 {ratio} Normal 0.9-2.4 [facility] Comment on above: Performed By: #### L 500.4050, L501.2300, L501.5200, L100.0100 #### [facility] [address] [place], [address] ALK P 69 U/L Normal 45-117 [facility] Comment on above: Performed By: #### L 500.4050, L501.2300, L501.5200, L100.0100 #### [facility] [address] [place], [address] ALT [Catalytic activity/Vol] 23 U/L Normal 16-61 [facility] Comment on above: Performed By: #### L 500.4050, L501.2300, L501.5200, L100.0100 #### [facility] [address] [place], [address] AST [Catalytic activity/Vol] 19 U/L Normal 15-37 [facility] Comment on above: Performed By: #### L 500.4050, L501.2300, L501.5200, L100.0100 #### [facility] [address] [place], [address] Bilirubin [Mass/Vol] 0.80 mg/dL Normal 0.20-1.00 [facility] Comment on above: Result Comment: For patients on eltrombopag therapy, use of Dimension [place] TBIL is not recommended. Performed By: #### L 500.4050, L501.2300, L501.5200, L100.0100 #### [facility] [address] [place], [address] BUN/CRE 21.4 RATIO High 10-20 [facility] Comment on above: Performed By: #### L 500.4050, [id number], [id number], L100.0100 #### [facility] [address] [place], [address] CA,Total 9.5 mg/dL Normal 8.5-10.1 [facility] Comment on above: Performed By: #### L 500.4050, [id number], L501.5200, L100.0100 #### [facility] [address] [place], [address] Chloride [Moles/Vol] 106 mmol/L Normal 98-107 [facility] Comment on above: Performed By: #### L 500.4050, L501.2300, L501.5200, L100.0100 #### [facility] [address] [place], [address] CO2 [Moles/Vol] 28.0 mmol/L Normal 21.0-32.0 [facility] Comment on above: Performed By: #### L 500.4050, L501.2300, L501.5200, L100.0100 #### [facility] [address] [place], [address] Creatinine [Mass/Vol] 1.40 mg/dL High 0.70-1.30 [facility] Comment on above: Result Comment: The validity of the calculated GFR GFRAA in patients over 70 years has not been determined. Clinical correlation is essential. Performed By: #### L 500.4050, L501.2300, L501.5200, L100.0100 #### [facility] [address] [place], [address] EST GFR - AA 62 mL/min Normal >60 [facility] Comment on above: Result Comment: Afri can Georgian GFR Calc Performed By: #### L 500.4050, L501.2300, L501.5200, L100.0100 #### [facility] [address] [place], [address] GAP 7 Normal 5-15 [facility] Comment on above: Performed By: #### L 500.4050, L501.2300, L501.5200, L100.0100 #### [facility] [address] [place], [address] GFR/1.73 sq M.predicted among non-blacks MDRD (S/P/Bld) [Vol rate/Area] 51 mL/min/{1.73_m2} Low >60 [facility] Comment on above: Result Comment: Non- GFR Calc Performed By: #### L 500.4050, L501.2300, L501.5200, L100.0100 #### [facility] [address] [place], [address] Globulin (S) [Mass/Vol] 3.3 g/dL Normal 2.2-4.2 [facility] Comment on above: Performed By: #### L 500.4050, L501.2300, L501.5200, L100.0100 #### [facility] [address] [place], [address] Glucose [Mass/Vol] 121 mg/dL High 74-106 [facility] Comment on above: Result Comment: Fast ing Glucose result from 100 to 125 mg/dL suggests IMPAIRED HOMEOSTASIS per A.D.A. criteria. Performed By: #### L 500.4050, L501.2300, L501.5200, L100.0100 #### [facility] [address] [place], [address] Potassium [Moles/Vol] 4.3 mmol/L Normal 3.5-5.1 [facility] Comment on above: Performed By: #### L 500.4050, L501.2300, L501.5200, L100.0100 #### [facility] [address] [place], [address] Sodium [Moles/Vol] 141 mmol/L Normal 136-145 [facility] Comment on above: Performed By: #### L 500.4050, L501.2300, L501.5200, L100.0100 #### [facility] [address] [place], [address] T PROT 6.8 g/dL Normal 6.4-8.2 [facility] Comment on above: Performed By: #### L 500.4050, L501.2300, L501.5200, L100.0100 #### [facility] [address] [place], [address] Urea nitrogen [Mass/Vol] 30 mg/dL High 7-18 [facility] Comment on above: Performed By: #### L 500.4050, L501.2300, L501.5200, L100.0100 #### [facility] [address] [place], [address] Thyroid Stim Hormone (TSH)on 02-14-2024 TSH 1.660 uIU/mL Normal 0.358-3.740 [facility] Comment on above: Performed By: #### L 500.4050, L501.2300, L501.5200, L100.0100 #### [facility] [address] [place], [address] Vitamin D,25 Hydroxyon 02-13 Vitamin D 25-OH 30.9 ng/mL Normal [facility] Comment on above: Result Comment: Jessica min D 25(OH) Status Range Deficiency <20 ng/mL (50nmol/L) Insufficiency 20 - 30 ng/mL (50 - 75 nmol/L) Sufficiency 30 - 100 ng/mL (75 - 250 nmol/L) Toxicity >100 ng/mL (>250 nmol/L) Performed By: #### L 500.4050, L501.2300, L501.5200, L100.0100 #### [facility] [address] [place], [place], [address] Absolute lymphocyte countOrd ered By: Kaiser Pan on 08-15-2023 Lymphocytes Auto (Unsp spec) [#/Vol] 0.62 10*3/uL 0.83-4.51 [facility] Automated lymphocyte count a s percentage of total leukocytesOrdered By: Kaiser Pan on 08-15-2023 Lymphocytes/100 WBC Auto (Unsp spec) 12.9 % -41 [facility] Basophil percentageOrdered B y: Kaiser Pan on 08-15-2023 Basophils/100 WBC (Bld) 0.4 % 0-1 [facility] Bilirubin [Mass/Vol] 0.90 mg/dL 0.20-1.00 [facility] Comment on above: For patients on eltr ombopag therapy, use of Dimension [place] TBIL is not recommended. Chloride [Moles/Vol] 110 mmol/L 98-107 [facility] Eosinophils/100 WBC (Bld) 5.0 % 0-5 [facility] Glucose [Mass/Vol] 107 mg/dL 74-106 [facility] Comment on above: Fasting Glucose resu lt from 100 to 125 mg/dL suggests IMPAIRED HOMEOSTASIS per A.D.A. criteria. Hemoglobin (Bld) [Mass/Vol] 12.1 g/dL 13.0-16.5 [facility] Monocytes/100 WBC (Bld) 16.7 % 0-10 [facility] Neutrophils (Bld) [#/Vol] 3.1 10*3/uL 2.0-7.7 [facility] Neutrophils/100 WBC (Bld) 64.8 % 47-70 [facility] Potassium [Moles/Vol] 4.3 mmol/L 3.5-5.1 [facility] Protein [Mass/Vol] 6.5 g/dL 6.4-8.2 [facility] Sodium [Moles/Vol] 141 mmol/L 136-145 [facility] WBC (Bld) [#/Vol] 4.8 10*3/uL 4.4-11.0 [facility] Determination of erythrocyte mean corpuscular volume (MCV)Ordered By: Kaiser Pan on 08-15-2023 MCV (RBC) [Entitic vol] 110.2 fL 80-94 [facility] Erythrocyte distribution wid th ratioOrdered By: Kaiser Mayook on 08-15-2023 Erythrocyte distribution width (RBC) [Ratio] 15.3 % 11.6-14.6 [facility] Erythrocyte distribution wid th standard deviationOrdered By: Kaiser Mayook on 08-15-2023 Erythrocyte distribution width (RBC) [Entitic vol] 62.8 fL 35.1-43.9 [facility] Hematocrit Auto (Bld) [Volum e fraction]Ordered By: Kaiser Pna 08-15-2023 Hematocrit (Bld) [Volume fraction] 36.7 % 40-54 [facility] Immature granulocytes/100 WB C Auto (Bld)Ordered By: Kaiser Pan on 08-15-2023 Immature granulocytes/100 WBC (Bld) 0.200 % 0.0-0.9 [facility] Comment on above: IG% - Immature Granu locytes (promyelocytes, myelocytes and metamyelocytes) > 1% indicates that a LEFT SHIFT is Present. Laboratory - Chemistry and C hemistry - challengeOrdered By: Kaiser Pan on 08-15-2023 Albumin/Globulin [Mass ratio] 1.2 {ratio} 0.9-2.4 [facility] ALP [Catalytic activity/Vol] 66 U/L 45-117 [facility] ALT [Catalytic activity/Vol] 26 U/L 16-61 [facility] CO2 [Moles/Vol] 27.0 mmol/L 21.0-32.0 [facility] Globulin (S) [Mass/Vol] 3.0 g/dL 2.2-4.2 [facility] Urea nitrogen/Creatinine [Mass ratio] 15.6 mg/mg 10-20 [facility] - Hematology and Cell countsOrdered By: Kaiser Pan on 08-15-2023 MCH (RBC) [Entitic mass] 36.3 pg 27.0-32.0 [facility] MCHC (RBC) [Mass/Vol] 33.0 g/dL 32-36 [facility] Nucleated RBC/100 WBC (Bld) [Ratio] 0 % 0-5 [facility] Platelet mean volume (Bld) [Entitic vol] 13.0 fL 6.2-12.0 [facility] Platelets (Bld) [#/Vol] 118 10*3/uL 150-450 [facility] No Panel InformationOrdered By: Kaiser Pan on 08-15-2023 Estimated GFR (MDRD) Amer 73 mL/min >60 [facility] Comment on above: GFR Calc Estimated GFR (MDRD) Non-Af Amer 60 mL/min >60 [facility] Comment on above: Non- GFR Calc Vitamin D 25-Hydroxy 34.0 ng/mL [facility] Comment on above: Vitamin D 25(OH) Sta tus Range Deficiency <20 ng/mL (50nmol/L) Insufficiency 20 - 30 ng/mL (50 - 75 nmol/L) Sufficiency 30 - 100 ng/mL (75 - 250 nmol/L) Toxicity >100 ng/mL (>250 nmol/L) RBC Auto (Bld) [#/Vol]Ordere d By: Kaiser Pan on 08-15-2023 RBC (Bld) [#/Vol] 3.33 10*6/uL 4.6-6.2 [facility] Serum or plasma calcium siobhan urement (mass/volume)Ordered By: Kaiser Pan on 08-15-2023 Calcium [Mass/Vol] 8.8 mg/dL 8.5-10.1 [facility] Serum or plasma creatinine m easurement (mass/volume)Ordered By: Kaiser Pan on 08-15-2023 Creatinine [Mass/Vol] 1.22 mg/dL 0.70-1.30 [facility] Comment on above: The validity of the calculated GFR & GFRAA in patients over 70 years has not been determined. Clinical correlation is essential. Serum or plasma thyroid stim ulating hormone (TSH) measurement (units/volume)Ordered By: Kaiser Pan on 08-15-2023 TSH Qn 1.84 uIU/mL 0.358-3.74 [facility] Serum or plasma urea nitroge n measurement (mass/volume)Ordered By: Kaiser Pan on 08-15-2023 Urea nitrogen [Mass/Vol] 19 mg/dL 7-18 [facility] Thin prep Papanicolaou smear with manual screeningOrdered By: Kaiser Pan on 08-15-2023 Thin prep Papanicolaou smear with manual screening 3.5 g/dL 3.2-5.0 [facility] Thin prep Papanicolaou smear with manual screening 24 U/L 15-37 [facility] Thin prep Papanicolaou smear with manual screening 4 5-15 [facility] Basophil percentageOrdered B y: Yamilka Wu on 07-13-2023 Cholesterol [Mass/Vol] 143 mg/dL <200 [facility] Comment on above: <200 mg/dL Desirable 200-240 mg/dL Borderline >240 mg/dL High Risk Triglyceride [Mass/Vol] 131 mg/dL <199 [facility] Comment on above: The drugs N-Acetylcy steine and Metamizole may falsely depress this assay.Serum Triglycerides Reference Interval Normal <150 mg/dL Borderline high 150 - 199 mg/dL High 200 - 499 mg/dL Very High > or = 500 mg/dL High density lipoprotein (HD L) measurementOrdered By: Yamilka Wu on 07-13-2023 Cholesterol in HDL (Body fld) [Mass/Vol] 61 mg/dL >40 [facility] Comment on above: The drugs N-Acetylcy steine and Metamizole may falsely depress this assay. Reference Range HDL <40 mg/dL Low HDL Cholesterol HDL >or= 60 mg/dL High HDL Cholesterol Laboratory - Chemistry and C hemistry - challengeOrdered By: Yamilka Wu on 07-13-2023 ALT [Catalytic activity/Vol] 28 U/L 16-61 [facility] Low density lipoprotein (LDL ) cholesterol measurementOrdered By: Yamilka Wu on 07-13-2023 Cholesterol in LDL (Body fld) [Moles/Vol] 56 mg/dL 0-130 [facility] Thin prep Papanicolaou smear with manual screeningOrdered By: Yamilka Wu on 07-13-2023 Thin prep Papanicolaou smear with manual screening 24 U/L 15-37 [facility] Very low density lipoprotein (VLDL) cholesterol measurementOrdered By: Yamilka Wu on 07-13-2023 Cholesterol in VLDL Calc [Moles/Vol] 26 mg/dL 5-40 [facility] Absolute lymphocyte countOrd ered By: Kaiser Pan on 05-09-2023 Lymphocytes Auto (Unsp spec) [#/Vol] 0.43 10*3/uL 0.83-4.51 [facility] Basophil percentageOrdered B y: Kaiser Pan on 05-09-2023 Basophils/100 WBC (Bld) 0.4 % 0-1 [facility] Bilirubin [Mass/Vol] 0.80 mg/dL 0.20-1.00 [facility] Comment on above: For patients on eltr ombopag therapy, use of Dimension [place] TBIL is not recommended. Chloride [Moles/Vol] 109 mmol/L 98-107 [facility] Eosinophils/100 WBC (Bld) 4.1 % 0-5 [facility] Glucose [Mass/Vol] 98 mg/dL 74-106 [facility] Neutrophils (Bld) [#/Vol] 3.4 10*3/uL 2.0-7.7 [facility] Neutrophils/100 WBC (Bld) 69.5 % 47-70 [facility] Potassium [Moles/Vol] 4.2 mmol/L 3.5-5.1 [facility] Protein [Mass/Vol] 6.7 g/dL 6.4-8.2 [facility] Sodium [Moles/Vol] 141 mmol/L 136-145 [facility] WBC (Bld) [#/Vol] 4.9 10*3/uL 4.4-11.0 [facility] Blood erythrocytes count (nu mber/volume)Ordered By: Kaiser Pan on 05-09-2023 RBC (Bld) [#/Vol] 3.32 10*6/uL 4.6-6.2 [facility] Blood hemoglobin measurement (mass/volume)Ordered By: Kaiser Pan on 05-09-2023 Hemoglobin (Bld) [Mass/Vol] 12.0 g/dL 13.0-16.5 [facility] Blood lymphocytes/100 leukoc ytesOrdered By: Kaiser Pan on 05-09-2023 Lymphocytes/100 WBC (Bld) 8.9 % 19-41 [facility] Blood manual differential co mment interpretation (narrative result)Ordered By: Kaiser Pan on 05-09-2023 Manual differential comment Randy (Bld) [Interp] SCANNED [facility] Blood monocytes/100 leukocyt esOrdered By: Kaiser Pan on 05-09-2023 Monocytes/100 WBC (Bld) 16.3 % 0-10 [facility] Blood platelet mean volumeOr dered By: Kaiser Pan on 05-09-2023 Platelet mean volume (Bld) [Entitic vol] 12.9 fL 6.2-12.0 [facility] Determination of erythrocyte mean corpuscular volume (MCV)Ordered By: Kaiser Pan on 05-09-2023 MCV (RBC) [Entitic vol] 110.8 fL 80-94 [facility] Hematocrit Auto (Bld) [Volum e fraction]Ordered By: Kaiser Pan on 05-09-2023 Hematocrit (Bld) [Volume fraction] 36.8 % 40-54 [facility] - Chemistry and C hemistry - challengeOrdered By: Kaiser Pan on 05-09-2023 ALP [Catalytic activity/Vol] 65 U/L 45-117 [facility] ALT [Catalytic activity/Vol] 26 U/L 16-61 [facility] CO2 [Moles/Vol] 28.0 mmol/L 21.0-32.0 [facility] Globulin (S) [Mass/Vol] 3.3 g/dL 2.2-4.2 [facility] Urea nitrogen/Creatinine [Mass ratio] 18.0 mg/mg 10-20 [facility] - Hematology and Cell countsOrdered By: Kaiser Pan on 05-09-2023 Erythrocyte distribution width (RBC) [Entitic vol] 61.2 fL 35.1-43.9 [facility] Erythrocyte distribution width (RBC) [Ratio] 15.1 % 11.6-14.6 [facility] Immature granulocytes/100 WBC (Bld) 0.800 % 0.0-0.9 [facility] Comment on above: IG% - Immature Granu locytes (promyelocytes, myelocytes and metamyelocytes) > 1% indicates that a LEFT SHIFT is Present. MCH (RBC) [Entitic mass] 36.1 pg 27.0-32.0 [facility] Nucleated RBC/100 WBC (Bld) [Ratio] 0 % 0-5 [facility] MCHC Auto (RBC) [Mass/Vol]Or dered By: Kaiser Pan on 05-09-2023 MCHC (RBC) [Mass/Vol] 32.6 g/dL 32-36 [facility] No Panel InformationOrdered By: Kaiser Pan on 05-09-2023 Estimated GFR (MDRD) Amer 73 mL/min >60 [facility] Comment on above: GFR Calc Estimated GFR (MDRD) Non-Af Amer 60 mL/min >60 [facility] Comment on above: Non- GFR Calc Thyroid Stimulating Hormone (TSH) 1.90 uIU/mL 0.358-3.74 [facility] Vitamin D 25-Hydroxy 36.8 ng/mL [facility] Comment on above: Vitamin D 25(OH) Sta tus Range Deficiency <20 ng/mL (50nmol/L) Insufficiency 20 - 30 ng/mL (50 - 75 nmol/L) Sufficiency 30 - 100 ng/mL (75 - 250 nmol/L) Toxicity >100 ng/mL (>250 nmol/L) Platelets bldOrdered By: Kaiser Pan on 05-09-2023 Platelets (Bld) [#/Vol] 124 10*3/uL 150-450 [facility] Serum or plasma albumin siobhan urement (mass/volume)Ordered By: Kaiser Pan on 05-09-2023 Albumin [Mass/Vol] 3.4 g/dL 3.2-5.0 [facility] Serum or plasma albumin/glob ulin mass ratioOrdered By: Kaiser Pan on 05-09-2023 Albumin/Globulin [Mass ratio] 1.0 {ratio} 0.9-2.4 [facility] Serum or plasma calcium siobhan urement (mass/volume)Ordered By: Kaiser Pan on 05-09-2023 Calcium [Mass/Vol] 8.8 mg/dL 8.5-10.1 [facility] Serum or plasma creatinine m easurement (mass/volume)Ordered By: Kaiser Pan on 05-09-2023 Creatinine [Mass/Vol] 1.22 mg/dL 0.70-1.30 [facility] Comment on above: The validity of the calculated GFR & GFRAA in patients over 70 years has not been determined. Clinical correlation is essential. Serum or plasma urea nitroge n measurement (mass/volume)Ordered By: Kaiser Pan on 05-09-2023 Urea nitrogen [Mass/Vol] 22 mg/dL 7-18 [facility] Thin prep Papanicolaou smear with manual screeningOrdered By: Kaiser Pan on 05-09-2023 Thin prep Papanicolaou smear with manual screening 20 U/L 15-37 [facility] Thin prep Papanicolaou smear with manual screening 4 5-15 [facility] Absolute lymphocyte countOrd ered By: Kaiser Pan on 02-07-2023 Lymphocytes Auto (Unsp spec) [#/Vol] 0.48 10*3/uL 0.83-4.51 [facility] Basophil percentageOrdered B y: Kaiser Pan on 02-07-2023 Basophils/100 WBC (Bld) 0.4 % 0-1 [facility] Bilirubin [Mass/Vol] 0.90 mg/dL 0.20-1.00 [facility] Comment on above: For patients on eltr ombopag therapy, use of Dimension [place] TBIL is not recommended. Chloride [Moles/Vol] 108 mmol/L 98-107 [facility] Eosinophils/100 WBC (Bld) 2.9 % 0-5 [facility] Glucose [Mass/Vol] 83 mg/dL 74-106 [facility] Neutrophils (Bld) [#/Vol] 2.9 10*3/uL 2.0-7.7 [facility] Neutrophils/100 WBC (Bld) 59.7 % 47-70 [facility] Potassium [Moles/Vol] 4.8 mmol/L 3.5-5.1 [facility] Protein [Mass/Vol] 6.2 g/dL 6.4-8.2 [facility] Sodium [Moles/Vol] 138 mmol/L 136-145 [facility] WBC (Bld) [#/Vol] 4.9 10*3/uL 4.4-11.0 [facility] Blood erythrocytes count (nu mber/volume)Ordered By: Kaiser Pan on 02-07-2023 RBC (Bld) [#/Vol] 3.41 10*6/uL 4.6-6.2 [facility] Blood hemoglobin measurement (mass/volume)Ordered By: Kaiser Pan on 02-07-2023 Hemoglobin (Bld) [Mass/Vol] 12.3 g/dL 13.0-16.5 [facility] Blood lymphocytes/100 leukoc ytesOrdered By: Kaiser Pan on 02-07-2023 Lymphocytes/100 WBC (Bld) 9.8 % 19-41 [facility] Blood manual differential co mment interpretation (narrative result)Ordered By: Kaiser Pan on 02-07-2023 Manual differential comment Randy (Bld) [Interp] See comment [facility] Comment on above: LYMPHOPENIA NOTED Blood monocytes/100 leukocyt esOrdered By: Kaiser Pan on 02-07-2023 Monocytes/100 WBC (Bld) 26.4 % 0-10 [facility] Blood platelet mean volumeOr dered By: Kaiser Pan on 02-07-2023 Platelet mean volume (Bld) [Entitic vol] 13.1 fL 6.2-12.0 [facility] Determination of erythrocyte mean corpuscular volume (MCV)Ordered By: Kaiser Pan on 02-07-2023 MCV (RBC) [Entitic vol] 107.3 fL 80-94 [facility] Hematocrit Auto (Bld) [Volum e fraction]Ordered By: Kaiser Maxim on 02-07-2023 Hematocrit (Bld) [Volume fraction] 36.6 % 40-54 [facility] Laboratory - Chemistry and C hemistry - challengeOrdered By: [facility] on 02-07-2023 ALP [Catalytic activity/Vol] 56 U/L 45-117 [facility] ALT [Catalytic activity/Vol] 41 U/L 16-61 [facility] CO2 [Moles/Vol] 26.0 mmol/L 21.0-32.0 [facility] Globulin (S) [Mass/Vol] 3.3 g/dL 2.2-4.2 [facility] Urea nitrogen/Creatinine [Mass ratio] 12.7 mg/mg 10-20 [facility] Laboratory - Hematology and Cell countsOrdered By: [facility] 02-07-2023 Erythrocyte distribution width (RBC) [Entitic vol] 64.5 fL 35.1-43.9 [facility] Erythrocyte distribution width (RBC) [Ratio] 16.2 % 11.6-14.6 [facility] Immature granulocytes/100 WBC (Bld) 0.800 % 0.0-0.9 [facility] Comment on above: IG% - Immature Granu locytes (promyelocytes, myelocytes and metamyelocytes) > 1% indicates that a LEFT SHIFT is Present. MCH (RBC) [Entitic mass] 36.1 pg 27.0-32.0 [facility] Nucleated RBC/100 WBC (Bld) [Ratio] 0 % 0-5 [facility] MCHC Auto (RBC) [Mass/Vol]Or dered By: Kaiser Pan on 02-07-2023 MCHC (RBC) [Mass/Vol] 33.6 g/dL 32-36 [facility] No Panel InformationOrdered By: Kaiser Pan 02-07-2023 Estimated GFR (MDRD) Amer 82 mL/min >60 [facility] Comment on above: GFR Calc Estimated GFR (MDRD) Non-Af Amer 68 mL/min >60 [facility] Comment on above: Non- GFR Calc Thyroid Stimulating Hormone (TSH) 1.00 uIU/mL 0.358-3.74 [facility] Vitamin D 25-Hydroxy 26.1 ng/mL [facility] Comment on above: Vitamin D 25(OH) Sta tus Range Deficiency <20 ng/mL (50nmol/L) Insufficiency 20 - 30 ng/mL (50 - 75 nmol/L) Sufficiency 30 - 100 ng/mL (75 - 250 nmol/L) Toxicity >100 ng/mL (>250 nmol/L) Platelets bldOrdered By: Kaiser Pan on 02-07-2023 Platelets (Bld) [#/Vol] 109 10*3/uL 150-450 [facility] Serum or plasma albumin siobhan urement (mass/volume)Ordered By: Kaiser Pan on 02-07-2023 Albumin [Mass/Vol] 2.9 g/dL 3.2-5.0 [facility] Serum or plasma albumin/glob ulin mass ratioOrdered By: Kaiser Pan 02-07-2023 Albumin/Globulin [Mass ratio] 0.9 {ratio} 0.9-2.4 [facility] Serum or plasma calcium siobhan urement (mass/volume)Ordered By: Kaiser Pan 02-07-2023 Calcium [Mass/Vol] 8.6 mg/dL 8.5-10.1 [facility] Serum or plasma creatinine m easurement (mass/volume)Ordered By: Kaiser Pan on 02-07-2023 Creatinine [Mass/Vol] 1.10 mg/dL 0.70-1.30 [facility] Comment on above: The validity of the calculated GFR & GFRAA in patients over 70 years has not been determined. Clinical correlation is essential. Serum or plasma urea nitroge n measurement (mass/volume)Ordered By: Kaiser Pan on 02-07-2023 Urea nitrogen [Mass/Vol] 14 mg/dL 7-18 [facility] Thin prep Papanicolaou smear with manual screeningOrdered By: Kaiser Pan 02-07-2023 Thin prep Papanicolaou smear with manual screening 25 U/L 15-37 [facility] Thin prep Papanicolaou smear with manual screening 4 5-15 [facility] Absolute lymphocyte countOrd ered By: Linda Allen on 02-03-2023 Lymphocytes Auto (Unsp spec) [#/Vol] 0.50 10*3/uL 0.83-4.51 [facility] Basophil percentageOrdered B y: Linda Allen on 02-03-2023 Basophils/100 WBC (Bld) 0.2 % 0-1 [facility] Chloride [Moles/Vol] 107 mmol/L 98-107 [facility] Eosinophils/100 WBC (Bld) 1.3 % 0-5 [facility] Glucose [Mass/Vol] 140 mg/dL 74-106 [facility] Comment on above: Fasting Glucose resu lt greater than or equal to 126 mg/dL suggests DIABETES MELLITUS per A.D.A. criteria. Neutrophils (Bld) [#/Vol] 8.4 10*3/uL 2.0-7.7 [facility] Neutrophils/100 WBC (Bld) 78.5 % 47-70 [facility] Potassium [Moles/Vol] 4.5 mmol/L 3.5-5.1 [facility] Sodium [Moles/Vol] 139 mmol/L 136-145 [facility] WBC (Bld) [#/Vol] 10.6 10*3/uL 4.4-11.0 [facility] Blood erythrocytes count (nu mber/volume)Ordered By: Linda Allen on 02-03-2023 RBC (Bld) [#/Vol] 3.56 10*6/uL 4.6-6.2 [facility] Blood hemoglobin measurement (mass/volume)Ordered By: Linda Allen on 02-03-2023 Hemoglobin (Bld) [Mass/Vol] 13.0 g/dL 13.0-16.5 [facility] Blood lymphocytes/100 leukoc ytesOrdered By: Linda Allen on 02-03-2023 Lymphocytes/100 WBC (Bld) 4.7 % 19-41 [facility] Blood manual differential co mment interpretation (narrative result)Ordered By: Linda Allen on 02-03-2023 Manual differential comment Randy (Bld) [Interp] SCANNED [facility] Comment on above: LYMPHOPENIA NOTED Blood monocytes/100 leukocyt esOrdered By: Linda Allen on 02-03-2023 Monocytes/100 WBC (Bld) 13.4 % 0-10 [facility] Blood platelet mean volumeOr dered By: Linda Allen on 02-03-2023 Platelet mean volume (Bld) [Entitic vol] 12.3 fL 6.2-12.0 [facility] Determination of erythrocyte mean corpuscular volume (MCV)Ordered By: Linda Allen on 02-03-2023 MCV (RBC) [Entitic vol] 107.9 fL 80-94 [facility] Hematocrit Auto (Bld) [Volum e fraction]Ordered By: Linda Allen on 02-03-2023 Hematocrit (Bld) [Volume fraction] 38.4 % 40-54 [facility] Laboratory - Chemistry and C hemistry - challengeOrdered By: Linda Allen on 02-03-2023 CO2 [Moles/Vol] 28.0 mmol/L 21.0-32.0 [facility] Urea nitrogen/Creatinine [Mass ratio] 19.1 mg/mg 10-20 [facility] Laboratory - Hematology and Cell countsOrdered By: Linda Allen on 02-03-2023 Erythrocyte distribution width (RBC) [Entitic vol] 62.9 fL 35.1-43.9 [facility] Erythrocyte distribution width (RBC) [Ratio] 15.9 % 11.6-14.6 [facility] Immature granulocytes/100 WBC (Bld) 1.900 % 0.0-0.9 [facility] Comment on above: IG% - Immature Granu locytes (promyelocytes, myelocytes and metamyelocytes) > 1% indicates that a LEFT SHIFT is Present. MCH (RBC) [Entitic mass] 36.5 pg 27.0-32.0 [facility] Nucleated RBC/100 WBC (Bld) [Ratio] 0 % 0-5 [facility] MCHC Auto (RBC) [Mass/Vol]Or dered By: Linda Allen on 02-03-2023 MCHC (RBC) [Mass/Vol] 33.9 g/dL 32-36 [facility] No Panel InformationOrdered By: Linda Allen on 02-03-2023 Estimated GFR (MDRD) Amer 61 mL/min >60 [facility] Comment on above: GFR Calc Estimated GFR (MDRD) Non-Af Amer 51 mL/min >60 [facility] Comment on above: Non- GFR Calc Platelets bldOrdered By: Mark Allen on 02-03-2023 Platelets (Bld) [#/Vol] 134 10*3/uL 150-450 [facility] Serum or plasma calcium siobhan urement (mass/volume)Ordered By: Linda Allen on 02-03-2023 Calcium [Mass/Vol] 8.6 mg/dL 8.5-10.1 [facility] Serum or plasma creatinine m easurement (mass/volume)Ordered By: Linda Allen on 02-03-2023 Creatinine [Mass/Vol] 1.41 mg/dL 0.70-1.30 [facility] Comment on above: The validity of the calculated GFR & GFRAA in patients over 70 years has not been determined. Clinical correlation is essential. Serum or plasma urea nitroge n measurement (mass/volume)Ordered By: Linda Allen on 02-03-2023 Urea nitrogen [Mass/Vol] 27 mg/dL 7-18 [facility] Thin prep Papanicolaou smear with manual screeningOrdered By: Linda Allen on 02-03-2023 Thin prep Papanicolaou smear with manual screening 4 5-15 [facility] Absolute lymphocyte countOrd ered By: Jane Snider on 01-23-2023 Lymphocytes Auto (Unsp spec) [#/Vol] 0.42 10*3/uL 0.83-4.51 [facility] Basophil percentageOrdered B y: Jane Snider on 01-23-2023 Basophils/100 WBC (Bld) 0.0 % 0-1 [facility] Chloride [Moles/Vol] 110 mmol/L 98-107 [facility] Eosinophils/100 WBC (Bld) 0.0 % 0-5 [facility] Glucose [Mass/Vol] 153 mg/dL 74-106 [facility] Comment on above: Fasting Glucose resu lt greater than or equal to 126 mg/dL suggests DIABETES MELLITUS per A.D.A. criteria. Neutrophils (Bld) [#/Vol] 7.3 10*3/uL 2.0-7.7 [facility] Neutrophils/100 WBC (Bld) 84.5 % 47-70 [facility] Potassium [Moles/Vol] 4.5 mmol/L 3.5-5.1 [facility] Sodium [Moles/Vol] 139 mmol/L 136-145 [facility] WBC (Bld) [#/Vol] 8.7 10*3/uL 4.4-11.0 [facility] Blood erythrocytes count (nu mber/volume)Ordered By: Jane Snider on 01-23-2023 RBC (Bld) [#/Vol] 3.30 10*6/uL 4.6-6.2 [facility] Blood hemoglobin measurement (mass/volume)Ordered By: Jane Snider on 01-23-2023 Hemoglobin (Bld) [Mass/Vol] 11.9 g/dL 13.0-16.5 [facility] Blood lymphocytes/100 leukoc ytesOrdered By: Jane Snider on 01-23-2023 Lymphocytes/100 WBC (Bld) 4.8 % 19-41 [facility] Blood manual differential co mment interpretation (narrative result)Ordered By: Jane Snider on 01-23-2023 Manual differential comment Randy (Bld) [Interp] SCANNED [facility] Blood monocytes/100 leukocyt esOrdered By: Jane Snider on 01-23-2023 Monocytes/100 WBC (Bld) 10.5 % 0-10 [facility] Blood platelet mean volumeOr dered By: Jane Snider on 01-23-2023 Platelet mean volume (Bld) [Entitic vol] 12.2 fL 6.2-12.0 [facility] Determination of erythrocyte mean corpuscular volume (MCV)Ordered By: Jane Snider on 01-23-2023 MCV (RBC) [Entitic vol] 107.0 fL 80-94 [facility] Hematocrit Auto (Bld) [Volum e fraction]Ordered By: Jane Snider on 01-23-2023 Hematocrit (Bld) [Volume fraction] 35.3 % 40-54 [facility] Laboratory - Chemistry and C hemistry - challengeOrdered By: Jane Snider on 01-23-2023 CO2 [Moles/Vol] 24.0 mmol/L 21.0-32.0 [facility] Urea nitrogen/Creatinine [Mass ratio] 21.2 mg/mg 10-20 [facility] - Hematology and Cell countsOrdered By: Jane Snider on 01-23-2023 Erythrocyte distribution width (RBC) [Entitic vol] 61.2 fL 35.1-43.9 [facility] Erythrocyte distribution width (RBC) [Ratio] 15.5 % 11.6-14.6 [facility] Immature granulocytes/100 WBC (Bld) 0.200 % 0.0-0.9 [facility] Comment on above: IG% - Immature Granu locytes (promyelocytes, myelocytes and metamyelocytes) > 1% indicates that a LEFT SHIFT is Present. MCH (RBC) [Entitic mass] 36.1 pg 27.0-32.0 [facility] Nucleated RBC/100 WBC (Bld) [Ratio] 0 % 0-5 [facility] MCHC Auto (RBC) [Mass/Vol]Or dered By: Jane Snider on 01-23-2023 MCHC (RBC) [Mass/Vol] 33.7 g/dL 32-36 [facility] No Panel InformationOrdered By: Jane Snider on 01-23-2023 Estimated Creatinine Clearance Calc 47.79 ml/min [facility] Estimated GFR (MDRD) Amer 79 mL/min >60 [facility] Comment on above: GFR Calc Estimated GFR (MDRD) Non-Af Amer 66 mL/min >60 [facility] Comment on above: Non- GFR Calc Platelets bldOrdered By: Valentina Snider on 01-23-2023 Platelets (Bld) [#/Vol] 130 10*3/uL 150-450 [facility] Serum or plasma calcium siobhan urement (mass/volume)Ordered By: Jane Snider on 01-23-2023 Calcium [Mass/Vol] 8.7 mg/dL 8.5-10.1 [facility] Serum or plasma creatinine m easurement (mass/volume)Ordered By: Jane Snider on 01-23-2023 Creatinine [Mass/Vol] 1.13 mg/dL 0.70-1.30 [facility] Comment on above: The validity of the calculated GFR & GFRAA in patients over 70 years has not been determined. Clinical correlation is essential. Serum or plasma urea nitroge n measurement (mass/volume)Ordered By: Jane Snider on 01-23-2023 Urea nitrogen [Mass/Vol] 24 mg/dL 7-18 [facility] Thin prep Papanicolaou smear with manual screeningOrdered By: Jane Snider on 01-23-2023 Thin prep Papanicolaou smear with manual screening 5 5-15 [facility] Basophil percentageOrdered B y: Jane Snider on 01-21-2023 Lactate [Moles/Vol] 1.3 mmol/L 0.4-2.0 [facility] LDH [Catalytic activity/Vol] 182 U/L 87-241 [facility] INR in Blood by Coagulation assayOrdered By: Jane Snider on 01-21-2023 INR Coag (Bld) [Relative time] 1.2 {INR} [facility] Influenza virus A and B and SARS-CoV-2 (COVID-19) Ag panel - Upper respiratory specimOrdered By: Linda Allen on 01-21-2023 SARS-CoV-2 & FLU Antigen (Rapid) SARS-CoV-2 (COVID 19) [facility] SARS-CoV-2 & FLU Antigen (Rapid) SARS-CoV-2 (COVID 19) [facility] Laboratory - CoagulationOrde red By: Jane Snider on 01-21-2023 PT Coag (PPP) [Time] 14.9 s 11.7-14.9 [facility] No Panel InformationOrdered By: Jane Snider on 01-21-2023 D-Dimer Quantitative (PE/DVT) 1.80 FEU/ug/m 0.27-0.49 [facility] Comment on above: D-Dimer ELEVATED (>0 .49): Additional studies and clinicalassessments are indicated to conclude diagnosis of:Deep Vein Thrombosis (DVT) or Pulmonary Embolism (PE)CRITICAL VALUE VERIFIED. CALLED TO LIAM [id number] Marco Perry.RESULTS READ BACK BY SAME . Fibrinogen 390 mg/dl 203-444 [facility] No Panel InformationOrdered By: Linda Allen on 01-21-2023 Troponin I High Sensitivity 16 pg/mL 3.0-78.0 [facility] Comment on above: Please Note: New Radha t Units and Gender Specific Reference Ranges. For more information see Policy Stat Procedure [place] High Sensitivity Troponin (TNIH) and attachments. Serum or plasma C reactive p rotein measurement (mass/volume)Ordered By: Jane Snider on 01-21-2023 CRP [Mass/Vol] 68.60 mg/L 0.0-3.0 [facility] Comment on above: C-Reactive Protein ( CRP) provides useful information for thediagnosis, therapy and monitoring of inflammatory processesand associated diseases. For the evaluation of Relative Riskfor Cardiovascular Disease, a High Sensitivity CRP (HSCRP)should be ordered. Serum procalcitonin measurem entOrdered By: Jane Snider on 01-21-2023 Procalcitonin [Mass/Vol] 0.06 ng/mL 0.00-0.09 [facility] Comment on above: A procalcitonin (PCT ) level above 2.0 ng/mL on the first day of ICU admission is associated with a high risk for progression to severe sepsis and/or septic shock. A PCT level below 0.5 ng/mL on the first day of ICU admission is associated with a low risk for progression to severe and/or septic shock. Note: Concentrations <0.5 ng/mL do not exclude an infection on account of localized infections (without systemic signs) which can be associated with such low concentrations, or a systemic infection in its initial stages (<6 hours). Furthermore, increased procalcitonin can occur without infection. PCT concentrations between 0.5 and 2.0 ng/mL should be interpreted taking into account the patient's history. It is recommended to retest PCT within 6-24 hours if any concentrations <2 ng/mL are obtained. Absolute lymphocyte countOrd ered By: Kaiser Pan on 11-08-2022 Lymphocytes Auto (Unsp spec) [#/Vol] 0.52 10*3/uL 0.83-4.51 [facility] Basophil percentageOrdered B y: Kaiser Pan on 11-08-2022 Basophils/100 WBC (Bld) 0.5 % 0-1 [facility] Bilirubin [Mass/Vol] 0.90 mg/dL 0.20-1.00 [facility] Comment on above: For patients on eltr ombopag therapy, use of Dimension [place] TBIL is not recommended. Chloride [Moles/Vol] 109 mmol/L 98-107 [facility] Eosinophils/100 WBC (Bld) 3.4 % 0-5 [facility] Glucose [Mass/Vol] 108 mg/dL 74-106 [facility] Comment on above: Fasting Glucose resu lt from 100 to 125 mg/dL suggests IMPAIRED HOMEOSTASIS per A.D.A. criteria. Neutrophils (Bld) [#/Vol] 2.9 10*3/uL 2.0-7.7 [facility] Neutrophils/100 WBC (Bld) 66.2 % 47-70 [facility] Potassium [Moles/Vol] 4.5 mmol/L 3.5-5.1 [facility] Protein [Mass/Vol] 6.8 g/dL 6.4-8.2 [facility] Sodium [Moles/Vol] 144 mmol/L 136-145 [facility] WBC (Bld) [#/Vol] 4.4 10*3/uL 4.4-11.0 [facility] Blood erythrocytes count (nu mber/volume)Ordered By: Kaiser Pan on 11-08-2022 RBC (Bld) [#/Vol] 3.40 10*6/uL 4.6-6.2 [facility] Blood hemoglobin measurement (mass/volume)Ordered By: Kaiser Pan on 11-08-2022 Hemoglobin (Bld) [Mass/Vol] 12.2 g/dL 13.0-16.5 [facility] Blood lymphocytes/100 leukoc ytesOrdered By: Kaiser Pan on 11-08-2022 Lymphocytes/100 WBC (Bld) 11.8 % 19-41 [facility] Blood manual differential co mment interpretation (narrative result)Ordered By: Kaiser Pan on 11-08-2022 Manual differential comment Randy (Bld) [Interp] See comment [facility] Comment on above: LYMPHOPENIA NOTED Blood monocytes/100 leukocyt esOrdered By: Kaiser Pan on 11-08-2022 Monocytes/100 WBC (Bld) 17.9 % 0-10 [facility] Blood platelet mean volumeOr dered By: Kaiser Pan on 11-08-2022 Platelet mean volume (Bld) [Entitic vol] 12.5 fL 6.2-12.0 [facility] Determination of erythrocyte mean corpuscular volume (MCV)Ordered By: Kaiser Pan 11-08-2022 MCV (RBC) [Entitic vol] 107.9 fL 80-94 [facility] Hematocrit Auto (Bld) [Volum e fraction][facility] Hematocrit (Bld) [Volume fraction] 36.7 % 40-54 [facility] Laboratory - Chemistry and C hemistry - challengeOrdered By: Kaiesr Maxim 11-08-2022 ALP [Catalytic activity/Vol] 67 U/L 45-117 [facility] ALT [Catalytic activity/Vol] 25 U/L 16-61 [facility] CO2 [Moles/Vol] 28.0 mmol/L 21.0-32.0 [facility] Globulin (S) [Mass/Vol] 3.1 g/dL 2.2-4.2 [facility] Urea nitrogen/Creatinine [Mass ratio] 12.5 mg/mg 10-20 [facility] - Hematology and Cell countsOrdered By: Kaiser Pan 11-08-2022 Erythrocyte distribution width (RBC) [Entitic vol] 60.4 fL 35.1-43.9 [facility] Erythrocyte distribution width (RBC) [Ratio] 15.2 % 11.6-14.6 [facility] Immature granulocytes/100 WBC (Bld) 0.200 % 0.0-0.9 [facility] Comment on above: IG% - Immature Granu locytes (promyelocytes, myelocytes and metamyelocytes) > 1% indicates that a LEFT SHIFT is Present. MCH (RBC) [Entitic mass] 35.9 pg 27.0-32.0 [facility] Nucleated RBC/100 WBC (Bld) [Ratio] 0 % 0-5 [facility] MCHC Auto (RBC) [Mass/Vol]Or dered By: Kaiser Pan on 11-08-2022 MCHC (RBC) [Mass/Vol] 33.2 g/dL 32-36 [facility] No Panel InformationOrdered By: Kaiser Pan on 11-08-2022 Estimated GFR (MDRD) Amer 69 mL/min >60 [facility] Comment on above: GFR Calc Estimated GFR (MDRD) Non-Af Amer 57 mL/min >60 [facility] Comment on above: Non- GFR Calc Thyroid Stimulating Hormone (TSH) 1.88 uIU/mL 0.358-3.74 [facility] Vitamin D 25-Hydroxy 32.0 ng/mL [facility] Comment on above: Vitamin D 25(OH) Sta tus Range Deficiency <20 ng/mL (50nmol/L) Insufficiency 20 - 30 ng/mL (50 - 75 nmol/L) Sufficiency 30 - 100 ng/mL (75 - 250 nmol/L) Toxicity >100 ng/mL (>250 nmol/L) Platelets bldOrdered By: Kaiser Pan on 11-08-2022 Platelets (Bld) [#/Vol] 135 10*3/uL 150-450 [facility] Serum or plasma albumin siobhan urement (mass/volume)Ordered By: Kaiser Pan 11-08-2022 Albumin [Mass/Vol] 3.7 g/dL 3.2-5.0 [facility] Serum or plasma albumin/glob ulin mass ratioOrdered By: Kaiser Pan 11-08-2022 Albumin/Globulin [Mass ratio] 1.2 {ratio} 0.9-2.4 [facility] Serum or plasma calcium siobhan urement (mass/volume)Ordered By: Kaiser Pan on 11-08-2022 Calcium [Mass/Vol] 8.9 mg/dL 8.5-10.1 [facility] Serum or plasma creatinine m easurement (mass/volume)Ordered By: Kaiser Pan 11-08-2022 Creatinine [Mass/Vol] 1.28 mg/dL 0.70-1.30 [facility] Comment on above: The validity of the calculated GFR & GFRAA in patients over 70 years has not been determined. Clinical correlation is essential. Serum or plasma urea nitroge n measurement (mass/volume)Ordered By: Kaiser Pan on 11-08-2022 Urea nitrogen [Mass/Vol] 16 mg/dL 7-18 [facility] Thin prep Papanicolaou smear with manual screeningOrdered By: Kaiser Pan on 11-08-2022 Thin prep Papanicolaou smear with manual screening 23 U/L 15-37 [facility] Thin prep Papanicolaou smear with manual screening 7 5-15 [facility] Absolute lymphocyte countOrd ered By: Kaiser Pan on 08-09-2022 Lymphocytes Auto (Unsp spec) [#/Vol] 0.56 10*3/uL 0.83-4.51 [facility] Basophil percentageOrdered B y: Kaiser Pan on 08-09-2022 Basophils/100 WBC (Bld) 0.6 % 0-1 [facility] Bilirubin [Mass/Vol] 0.90 mg/dL 0.20-1.00 [facility] Comment on above: For patients on eltr ombopag therapy, use of Dimension [place] TBIL is not recommended. Chloride [Moles/Vol] 105 mmol/L 98-107 [facility] Eosinophils/100 WBC (Bld) 3.4 % 0-5 [facility] Glucose [Mass/Vol] 88 mg/dL 74-106 [facility] Neutrophils (Bld) [#/Vol] 3.0 10*3/uL 2.0-7.7 [facility] Neutrophils/100 WBC (Bld) 63.7 % 47-70 [facility] Potassium [Moles/Vol] 4.6 mmol/L 3.5-5.1 [facility] Protein [Mass/Vol] 7.1 g/dL 6.4-8.2 [facility] Sodium [Moles/Vol] 139 mmol/L 136-145 [facility] WBC (Bld) [#/Vol] 4.7 10*3/uL 4.4-11.0 [facility] Blood erythrocytes count (nu mber/volume)Ordered By: Kaiser Pan on 08-09-2022 RBC (Bld) [#/Vol] 3.51 10*6/uL 4.6-6.2 [facility] Blood hemoglobin measurement (mass/volume)Ordered By: Kaiser Pan on 08-09-2022 Hemoglobin (Bld) [Mass/Vol] 12.5 g/dL 13.0-16.5 [facility] Blood lymphocytes/100 leukoc ytesOrdered By: Kaiser Pan on 08-09-2022 Lymphocytes/100 WBC (Bld) 12.0 % 19-41 [facility] Blood manual differential co mment interpretation (narrative result)Ordered By: Kaiser Pan on 08-09-2022 Manual differential comment Randy (Bld) [Interp] SCANNED [facility] Blood monocytes/100 leukocyt esOrdered By: Kaiser Pan on 08-09-2022 Monocytes/100 WBC (Bld) 19.9 % 0-10 [facility] Blood platelet mean volumeOr dered By: Kaiser Pan on 08-09-2022 Platelet mean volume (Bld) [Entitic vol] 12.6 fL 6.2-12.0 [facility] Determination of erythrocyte mean corpuscular volume (MCV)Ordered By: Kaiser Pan on 08-09-2022 MCV (RBC) [Entitic vol] 107.1 fL 80-94 [facility] Hematocrit Auto (Bld) [Volum e fraction]Ordered By: Kaiser Pan on 08-09-2022 Hematocrit (Bld) [Volume fraction] 37.6 % 40-54 [facility] Laboratory - Chemistry and C hemistry - challengeOrdered By: Kaiser Pan on 08-09-2022 ALP [Catalytic activity/Vol] 72 U/L 45-117 [facility] ALT [Catalytic activity/Vol] 23 U/L 16-61 [facility] CO2 [Moles/Vol] 29.0 mmol/L 21.0-32.0 [facility] Globulin (S) [Mass/Vol] 3.4 g/dL 2.2-4.2 [facility] Urea nitrogen/Creatinine [Mass ratio] 16.0 mg/mg 10-20 [facility] Laboratory - Hematology and Cell countsOrdered By: Kaiser Pan on 08-09-2022 Erythrocyte distribution width (RBC) [Entitic vol] 59.8 fL 35.1-43.9 [facility] Erythrocyte distribution width (RBC) [Ratio] 15.0 % 11.6-14.6 [facility] Immature granulocytes/100 WBC (Bld) 0.400 % 0.0-0.9 [facility] Comment on above: IG% - Immature Granu locytes (promyelocytes, myelocytes and metamyelocytes) > 1% indicates that a LEFT SHIFT is Present. MCH (RBC) [Entitic mass] 35.6 pg 27.0-32.0 [facility] Nucleated RBC/100 WBC (Bld) [Ratio] 0 % 0-5 [facility] MCHC Auto (RBC) [Mass/Vol]Or dered By: Kaiser Pan on 08-09-2022 MCHC (RBC) [Mass/Vol] 33.2 g/dL 32-36 [facility] No Panel InformationOrdered By: Kaiser Pan on 08-09-2022 Estimated GFR (MDRD) Amer 60 mL/min >60 [facility] Comment on above: GFR Calc Estimated GFR (MDRD) Non-Af Amer 50 mL/min >60 [facility] Comment on above: Non- GFR Calc Thyroid Stimulating Hormone (TSH) 2.20 uIU/mL 0.358-3.74 [facility] Vitamin D 25-Hydroxy 26.3 ng/mL [facility] Comment on above: Vitamin D 25(OH) Sta tus Range Deficiency <20 ng/mL (50nmol/L) Insufficiency 20 - 30 ng/mL (50 - 75 nmol/L) Sufficiency 30 - 100 ng/mL (75 - 250 nmol/L) Toxicity >100 ng/mL (>250 nmol/L) Platelets bldOrdered By: Kaiser Pan on 08-09-2022 Platelets (Bld) [#/Vol] 151 10*3/uL 150-450 [facility] Serum or plasma albumin siobhan urement (mass/volume)Ordered By: Kaiser Pan on 08-09-2022 Albumin [Mass/Vol] 3.7 g/dL 3.2-5.0 [facility] Serum or plasma albumin/glob ulin mass ratioOrdered By: Kaiser Pan on 08-09-2022 Albumin/Globulin [Mass ratio] 1.1 {ratio} 0.9-2.4 [facility] Serum or plasma calcium siobhan urement (mass/volume)Ordered By: Kaiser Pan on 08-09-2022 Calcium [Mass/Vol] 9.1 mg/dL 8.5-10.1 [facility] Serum or plasma creatinine m easurement (mass/volume)Ordered By: Kaiser Maxim on 08-09-2022 Creatinine [Mass/Vol] 1.44 mg/dL 0.70-1.30 [facility] Comment on above: The validity of the calculated GFR & GFRAA in patients over 70 years has not been determined. Clinical correlation is essential. Serum or plasma urea nitroge n measurement (mass/volume)Ordered By: Kaiser Pan on 08-09-2022 Urea nitrogen [Mass/Vol] 23 mg/dL 7-18 [facility] Thin prep Papanicolaou smear with manual screeningOrdered By: Kaiser Pan on 08-09-2022 Thin prep Papanicolaou smear with manual screening 25 U/L 15- [facility] Thin prep Papanicolaou smear with manual screening 5 5-15 [facility] Absolute lymphocyte counton 02-04-2022 Lymphocytes Auto (Unsp spec) [#/Vol] 0.57 10*3/uL 0.83-4.51 [facility] Work Phone: Basophil percentageon 2021 Basophils/100 WBC (Bld) 0.5 % 0-1 [facility] Work Phone: Bilirubin [Mass/Vol] 0.70 mg/dL 0.20-1.00 [facility] Work Phone: Comment on above: For patients on eltr ombopag therapy, use of Dimension [place] TBIL is not recommended. Chloride [Moles/Vol] 108 mmol/L 98-107 [facility] Work Phone: Eosinophils/100 WBC (Bld) 3.9 % 0-5 [facility] Work Phone: Glucose [Mass/Vol] 100 mg/dL 74-106 [facility] Work Phone: Comment on above: Fasting Glucose resu lt from 100 to 125 mg/dL suggests IMPAIRED HOMEOSTASIS per A.D.A. criteria. Neutrophils (Bld) [#/Vol] 2.6 10*3/uL 2.0-7.7 [facility] Work Phone: Neutrophils/100 WBC (Bld) 62.7 % 47-70 [facility] Work Phone: Potassium [Moles/Vol] 4.6 mmol/L 3.5-5.1 [facility] Work Phone: Protein [Mass/Vol] 6.6 g/dL 6.4-8.2 [facility] Work Phone: [phone] Sodium [Moles/Vol] 142 mmol/L 136-145 [facility] Work Phone: [phone] WBC (Bld) [#/Vol] 4.2 10*3/uL 4.4-11.0 [facility] Work Phone: Blood erythrocytes count (nu mber/volume)on 02-04-2022 RBC (Bld) [#/Vol] 3.32 10*6/uL 4.6-6.2 [facility] Work [facility]: Blood hemoglobin measurement (mass/volume)on 02-04-2022 Hemoglobin (Bld) [Mass/Vol] 12.3 g/dL 13.0-16.5 [facility] Work Phone: Blood lymphocytes/100 leukoc yteson 02-04-2022 Lymphocytes/100 WBC (Bld) 13.7 % 19-41 [facility] Work Phone: Blood manual differential co mment interpretation (narrative result)on 02-04-2022 Manual differential comment Randy (Bld) [Interp] SCANNED [facility] Work Phone: Blood monocytes/100 leukocyt eson 02-04-2022 Monocytes/100 WBC (Bld) 19.0 % 0-10 [facility] Work Phone: Blood platelet mean volumeon 02-04-2022 Platelet mean volume (Bld) [Entitic vol] 11.9 fL 6.2-12.0 [facility] Work Phone: Determination of erythrocyte mean corpuscular volume (MCV)on 02-04-2022 MCV (RBC) [Entitic vol] 109.6 fL 80-94 [facility] Work Phone: [phone] Hematocrit Auto (Bld) [Volum e fraction]on 02-04-2022 Hematocrit (Bld) [Volume fraction] 36.4 % 40-54 [facility] Work Phone: [phone] Laboratory - Chemistry and C hemistry - challengeon 02-04-2022 ALP [Catalytic activity/Vol] 69 U/L 45-117 [facility] Work Phone: [phone] ALT [Catalytic activity/Vol] 25 U/L 16-61 [facility] Work Phone: [phone] CO2 [Moles/Vol] 29.0 mmol/L 21.0-32.0 [facility] Work Phone: [phone] Globulin (S) [Mass/Vol] 3.2 g/dL 2.2-4.2 [facility] Work Phone: [phone] Urea nitrogen/Creatinine [Mass ratio] 12.1 mg/mg 10-20 [facility] Work Phone: [phone] Laboratory - Hematology and Cell countson 02-04-2022 Erythrocyte distribution width (RBC) [Entitic vol] 61.2 fL 35.1-43.9 [facility] Work Phone: [phone] Erythrocyte distribution width (RBC) [Ratio] 15.2 % 11.6-14.6 [facility] Work Phone: [phone] Immature granulocytes/100 WBC (Bld) 0.200 % 0.0-0.9 [facility] Work Phone: [phone] Comment on above: IG% - Immature Granu locytes (promyelocytes, myelocytes and metamyelocytes) > 1% indicates that a LEFT SHIFT is Present. MCH (RBC) [Entitic mass] 37.0 pg 27.0-32.0 [facility] Work Phone: [phone] Nucleated RBC/100 WBC (Bld) [Ratio] 0 % 0-5 [facility] Work Phone: [phone] MCHC Auto (RBC) [Mass/Vol]on 02-04-2022 MCHC (RBC) [Mass/Vol] 33.8 g/dL 32-36 [facility] Work Phone: No Panel Informationon 02-04 Estimated GFR (MDRD) Amer 77 mL/min >60 [facility] Work Phone: Comment on above: GFR Calc Estimated GFR (MDRD) Non-Af Amer 64 mL/min >60 [facility] Work Phone: Comment on above: Non- GFR Calc Thyroid Stimulating Hormone (TSH) 1.74 uIU/mL 0.358-3.74 [facility] Work Phone: Vitamin D 25-Hydroxy 34.4 ng/mL [facility] Work Phone: Comment on above: Vitamin D 25(OH) Sta tus Range Deficiency <20 ng/mL (50nmol/L) Insufficiency 20 - 30 ng/mL (50 - 75 nmol/L) Sufficiency 30 - 100 ng/mL (75 - 250 nmol/L) Toxicity >100 ng/mL (>250 nmol/L) Platelets bldon 02-04-2022 Platelets (Bld) [#/Vol] 144 10*3/uL 150-450 [facility] Work Phone: Review by pathologiston 01-25 Pathologist review Randy (Unsp spec) [Interp] Reviewed [facility] Work Phone: Comment on above: Previous reported re sult: Sherrie padilla Edited by: RGOOD on 02/05/22:1126 AMENDED REPORT 02/05/22 1126 PATH REV previously reported as: Sherrie padilla Serum or plasma albumin siobhan urement (mass/volume)on 02-04-2022 Albumin [Mass/Vol] 3.4 g/dL 3.2-5.0 [facility] Work Phone: Serum or plasma albumin/glob ulin mass ratioon 02-04-2022 Albumin/Globulin [Mass ratio] 1.1 {ratio} 0.9-2.4 [facility] Work Phone: Serum or plasma calcium siobhan urement (mass/volume)on 02-04-2022 Calcium [Mass/Vol] 9.0 mg/dL 8.5-10.1 [facility] Work Phone: Serum or plasma creatinine m easurement (mass/volume)on 02-04-2022 Creatinine [Mass/Vol] 1.16 mg/dL 0.70-1.30 [facility] Work Phone: Comment on above: The validity of the calculated GFR & GFRAA in patients over 70 years has not been determined. Clinical correlation is essential. Serum or plasma urea nitroge n measurement (mass/volume)on 02-04-2022 Urea nitrogen [Mass/Vol] 14 mg/dL 7-18 [facility] Work Phone: Thin prep Papanicolaou smear with manual screeningon 02-04-2022 Thin prep Papanicolaou smear with manual screening 24 U/L 15-37 [facility] Work Phone: Thin prep Papanicolaou smear with manual screening 5 5-15 [facility] Work Phone: Absolute lymphocyte counton 11-06-2021 Lymphocytes Auto (Unsp spec) [#/Vol] 0.63 10*3/uL 0.83-4.51 [facility] Work Phone: Basophil percentageon 2021 Basophils/100 WBC (Bld) 0.3 % 0-1 [facility] Work Phone: Chloride [Moles/Vol] 106 mmol/L 98-107 [facility] Work Phone: Eosinophils/100 WBC (Bld) 2.4 % 0-5 [facility] Work Phone: Glucose [Mass/Vol] 114 mg/dL 74-106 [facility] Work Phone: Comment on above: Fasting Glucose resu lt from 100 to 125 mg/dL suggests IMPAIRED HOMEOSTASIS per A.D.A. criteria. Neutrophils (Bld) [#/Vol] 4.1 10*3/uL 2.0-7.7 [facility] Work Phone: Neutrophils/100 WBC (Bld) 67.3 % 47-70 [facility] Work Phone: Potassium [Moles/Vol] 4.3 mmol/L 3.5-5.1 [facility] Work Phone: Comment on above: Slight Hemolysis, Re sult may be falsely increased. Sodium [Moles/Vol] 139 mmol/L 136-145 [facility] Work Phone: WBC (Bld) [#/Vol] 6.2 10*3/uL 4.4-11.0 [facility] Work Phone: Blood erythrocytes count (nu mber/volume)on 11-06-2021 RBC (Bld) [#/Vol] 3.23 10*6/uL 4.6-6.2 [facility] Work Phone: Blood hemoglobin measurement (mass/volume)on 11-06-2021 Hemoglobin (Bld) [Mass/Vol] 11.8 g/dL 13.0-16.5 [facility] Work Phone: Blood lymphocytes/100 leukoc yteson 11-06-2021 Lymphocytes/100 WBC (Bld) 10.2 % 19-41 [facility] Work Phone: Blood monocytes/100 leukocyt eson 11-06-2021 Monocytes/100 WBC (Bld) 19.2 % 0-10 [facility] Work Phone: Blood platelet mean volumeon 11-06-2021 Platelet mean volume (Bld) [Entitic vol] 11.8 fL 6.2-12.0 [facility] Work Phone: Determination of erythrocyte mean corpuscular volume (MCV)on 11-06-2021 MCV (RBC) [Entitic vol] 108.4 fL 80-94 [facility] Work Phone: Hematocrit Auto (Bld) [Volum e fraction]on 11-06-2021 Hematocrit (Bld) [Volume fraction] 35.0 % 40-54 [facility] Work Phone: Laboratory - Chemistry and C hemistry - challengeon 11-06-2021 CO2 [Moles/Vol] 28.0 mmol/L 21.0-32.0 [facility] Work Phone: [phone] Urea nitrogen/Creatinine [Mass ratio] 17.6 mg/mg 10-20 [facility] Work Phone: [phone] Laboratory - Hematology and Cell countson 11-06-2021 Erythrocyte distribution width (RBC) [Entitic vol] 59.7 fL 35.1-43.9 [facility] Work Phone: [phone] Erythrocyte distribution width (RBC) [Ratio] 14.9 % 11.6-14.6 [facility] Work Phone: [phone] Immature granulocytes/100 WBC (Bld) 0.600 % 0.0-0.9 [facility] Work Phone: [phone] Comment on above: IG% - Immature Granu locytes (promyelocytes, myelocytes and metamyelocytes) > 1% indicates that a LEFT SHIFT is Present. MCH (RBC) [Entitic mass] 36.5 pg 27.0-32.0 [facility] Work Phone: Nucleated RBC/100 WBC (Bld) [Ratio] 0 % 0-5 [facility] Work Phone: [phone] MCHC Auto (RBC) [Mass/Vol]on 11-06-2021 MCHC (RBC) [Mass/Vol] 33.7 g/dL 32-36 [facility] Work Phone: No Panel Informationon 11-06 Estimated Creatinine Clearance Calc 53.51 ml/min [facility] Work Phone: [phone] Estimated GFR (MDRD) Amer 84 mL/min >60 [facility] Work Phone: [phone] Comment on above: GFR Calc Estimated GFR (MDRD) Non-Af Amer 69 mL/min >60 [facility] Work Phone: [phone] Comment on above: Non- GFR Calc Platelets bldon 11-06-2021 Platelets (Bld) [#/Vol] 187 10*3/uL 150-450 [facility] Work Phone: Serum or plasma calcium siobhan urement (mass/volume)on 11-06-2021 Calcium [Mass/Vol] 8.8 mg/dL 8.5-10.1 [facility] Work Phone: Serum or plasma creatinine m easurement (mass/volume)on 11-06-2021 Creatinine [Mass/Vol] 1.08 mg/dL 0.70-1.30 [facility] Work Phone: Comment on above: The validity of the calculated GFR & GFRAA in patients over 70 years has not been determined. Clinical correlation is essential. Serum or plasma urea nitroge n measurement (mass/volume)on 11-06-2021 Urea nitrogen [Mass/Vol] 19 mg/dL 7-18 [facility] Work Phone: Thin prep Papanicolaou smear with manual screeningon 11-06-2021 Thin prep Papanicolaou smear with manual screening 5 5-15 [facility] Work Phone: Laboratory - Hematology and Cell countson 10-30-2021 Anisocytosis Ql (Bld) 1+ [facility] Work Phone: Macrocytes detectionon 10-30 Macrocytes Ql (Bld) 3+ [facility] Work Phone: Absolute lymphocyte counton 10-28-2021 Lymphocytes Auto (Unsp spec) [#/Vol] 0.40 10*3/uL 0.83-4.51 [facility] Work Phone: Basophil percentageon 2021 Basophils/100 WBC (Bld) 0.0 % 0-1 [facility] Work Phone: Chloride [Moles/Vol] 109 mmol/L 98-107 [facility] Work Phone: Eosinophils/100 WBC (Bld) 0.7 % 0-5 [facility] Work Phone: Glucose [Mass/Vol] 94 mg/dL 74-106 [facility] Work Phone: Neutrophils (Bld) [#/Vol] 4.3 10*3/uL 2.0-7.7 [facility] Work Phone: [phone] Neutrophils/100 WBC (Bld) 73.5 % 47-70 [facility] Work [phone] Potassium [Moles/Vol] 3.8 mmol/L 3.5-5.1 [facility] Work Phone: [phone] Sodium [Moles/Vol] 139 mmol/L 136-145 [facility] Work Phone: [phone] WBC (Bld) [#/Vol] 5.8 10*3/uL 4.4-11.0 [facility] Work Phone: [phone] Blood erythrocytes count (nu mber/volume)on 10-28-2021 RBC (Bld) [#/Vol] 3.01 10*6/uL 4.6-6.2 [facility] Work Phone: [phone] Blood hemoglobin measurement (mass/volume)on 10-28-2021 Hemoglobin (Bld) [Mass/Vol] 10.9 g/dL 13.0-16.5 [facility] Work Phone: [phone] Blood lymphocytes/100 leukoc yteson 10-28-2021 Lymphocytes/100 WBC (Bld) 6.9 % 19-41 [facility] Work Phone: [phone] Blood monocytes/100 leukocyt eson 10-28-2021 Monocytes/100 WBC (Bld) 18.4 % 0-10 [facility] Work Phone: [phone] Blood platelet adequacy dete ction by light microscopyon 10-28-2021 Platelets LM Ql (Bld) MOD DEC ADEQ [facility] Work Phone: [phone] Blood platelet mean volumeon 10-28-2021 Platelet mean volume (Bld) [Entitic vol] 12.6 fL 6.2-12.0 [facility] Work Phone: [phone] Determination of erythrocyte mean corpuscular volume (MCV)on 10-28-2021 MCV (RBC) [Entitic vol] 108.0 fL 80-94 [facility] Work Phone: Hematocrit Auto (Bld) [Volum e fraction]on 10-28-2021 Hematocrit (Bld) [Volume fraction] 32.5 % 40-54 [facility] Work Phone: [phone] Laboratory - Chemistry and C hemistry - challengeon 10-28-2021 CO2 [Moles/Vol] 22.0 mmol/L 21.0-32.0 [facility] Work Phone: [phone] Magnesium [Mass/Vol] 2.0 mg/dL 1.6-2.6 [facility] Work Phone: Urea nitrogen/Creatinine [Mass ratio] 19.0 mg/mg 10-20 [facility] Work Phone: Laboratory - Hematology and Cell countson 10-28-2021 Anisocytosis Ql (Bld) 2+ [facility] Work Phone: Erythrocyte distribution width (RBC) [Entitic vol] 60.1 fL 35.1-43.9 [facility] Work Phone: [phone] Erythrocyte distribution width (RBC) [Ratio] 15.0 % 11.6-14.6 [facility] Work Phone: Immature granulocytes/100 WBC (Bld) 0.500 % 0.0-0.9 [facility] Work Phone: Comment on above: IG% - Immature Granu locytes (promyelocytes, myelocytes and metamyelocytes) > 1% indicates that a LEFT SHIFT is Present. MCH (RBC) [Entitic mass] 36.2 pg 27.0-32.0 [facility] Work Phone: Nucleated RBC/100 WBC (Bld) [Ratio] 0 % 0-5 [facility] Work Phone: MCHC Auto (RBC) [Mass/Vol]on 10-28-2021 MCHC (RBC) [Mass/Vol] 33.5 g/dL 32-36 [facility] Work Phone: [phone] Macrocytes detectionon 10-28 [facility]l (Bld) 3+ [facility] Work [facility]: No Panel Informationon 10-28 Estimated Creatinine Clearance Calc 61.48 ml/min [facility] Work Phone: Estimated GFR (MDRD) Amer 98 mL/min >60 [facility] Work Phone: Comment on above: GFR Calc Estimated GFR (MDRD) Non-Af Amer 81 mL/min >60 [facility] Work Phone: Comment on above: Non- GFR Calc Platelets bldon 10-28-2021 Platelets (Bld) [#/Vol] 84 10*3/uL 150-450 [facility] Work Phone: Serum or plasma calcium siobhan urement (mass/volume)on 10-28-2021 Calcium [Mass/Vol] 7.6 mg/dL 8.5-10.1 [facility] Work Phone: Serum or plasma creatinine m easurement (mass/volume)on 10-28-2021 Creatinine [Mass/Vol] 0.94 mg/dL 0.70-1.30 [facility] Work Phone: Comment on above: The validity of the calculated GFR & GFRAA in patients over 70 years has not been determined. Clinical correlation is essential. Serum or plasma urea nitroge n measurement (mass/volume)on 10-28-2021 Urea nitrogen [Mass/Vol] 18 mg/dL 7-18 [facility] Work Phone: Thin prep Papanicolaou smear with manual screeningon 10-28-2021 Thin prep Papanicolaou smear with manual screening 8 5-15 [facility] Work Phone: Absolute lymphocyte counton 10-27-2021 Lymphocytes Auto (Unsp spec) [#/Vol] 0.22 10*3/uL 0.83-4.51 [facility] Work Phone: Basophil percentageon 2021 Basophil percentage 0 SEEN /hpf 0-5 [facility] Work Phone: Basophils/100 WBC (Bld) 0.0 % 0-1 [facility] Work Phone: Bilirubin [Mass/Vol] 1.00 mg/dL 0.20-1.00 [facility] Work Phone: [phone] Comment on above: For patients on eltr ombopag therapy, use of Dimension [place] TBIL is not recommended. Chloride [Moles/Vol] 108 mmol/L 98-107 [facility] Work Phone: Eosinophils/100 WBC (Bld) 0.1 % 0-5 [facility] Work Phone: Glucose [Mass/Vol] 133 mg/dL 74-106 [facility] Work Phone: Comment on above: Fasting Glucose resu lt greater than or equal to 126 mg/dL suggests DIABETES MELLITUS per A.D.A. criteria. Neutrophils (Bld) [#/Vol] 6.3 10*3/uL 2.0-7.7 [facility] Work Phone: Neutrophils/100 WBC (Bld) 83.9 % 47-70 [facility] Work Phone: Potassium [Moles/Vol] 3.7 mmol/L 3.5-5.1 [facility] Work Phone: Protein [Mass/Vol] 6.3 g/dL 6.4-8.2 [facility] Work Phone: [phone] Sodium [Moles/Vol] 138 mmol/L 136-145 [facility] Work Phone: WBC (Bld) [#/Vol] 7.5 10*3/uL 4.4-11.0 [facility] Work Phone: Bilirubin Test strip Ql (U)o n 10-27-2021 Bilirubin Ql (U) 1 mg/dL Negative [facility] Work Phone: Comment on above: COLOR OF URINE MAY A FFECT DIPSTICK RESULTS. Blood erythrocytes count (nu mber/volume)on 10-27-2021 RBC (Bld) [#/Vol] 3.48 10*6/uL 4.6-6.2 [facility] Work Phone: Blood hemoglobin measurement (mass/volume)on 10-27-2021 Hemoglobin (Bld) [Mass/Vol] 12.8 g/dL 13.0-16.5 [facility] Work Phone: Blood lymphocytes/100 leukoc yteson 10-27-2021 Lymphocytes/100 WBC (Bld) 2.9 % 19-41 [facility] Work Phone: Blood monocytes/100 leukocyt eson 10-27-2021 Monocytes/100 WBC (Bld) 12.8 % 0-10 [facility] Work Phone: Blood platelet mean volumeon 10-27-2021 Platelet mean volume (Bld) [Entitic vol] 12.1 fL 6.2-12.0 [facility] Work Phone: Determination of erythrocyte mean corpuscular volume (MCV)on 10-27-2021 MCV (RBC) [Entitic vol] 106.0 fL 80-94 [facility] Work Phone: Hematocrit Auto (Bld) [Volum e fraction]on 10-27-2021 Hematocrit (Bld) [Volume fraction] 36.9 % 40-54 [facility] Work Phone: INR in Blood by Coagulation assayon 10-27-2021 INR Coag (Bld) [Relative time] 1.7 {INR} [facility] Work Phone: Ketones Test strip Ql (U)on 10-27-2021 Ketones Ql (U) 5 mg/dl Negative [facility] Work Phone: Laboratory - Chemistry and C hemistry - challengeon 10-27-2021 ALP [Catalytic activity/Vol] 53 U/L 45-117 [facility] Work Phone: ALT [Catalytic activity/Vol] 30 U/L 16-61 [facility] Work Phone: CO2 [Moles/Vol] 24.0 mmol/L 21.0-32.0 [facility] Work Phone: Globulin (S) [Mass/Vol] 3.2 g/dL 2.2-4.2 [facility] Work Phone: Urea nitrogen/Creatinine [Mass ratio] 17.4 mg/mg 10-20 [facility] Work Phone: Laboratory - Coagulationon 0 10-27-2021 PT Coag (PPP) [Time] 19.4 s 11.7-14.9 [facility] Work Phone: Laboratory - Hematology and Cell countson 10-27-2021 Anisocytosis Ql (Bld) 1+ [facility] Work Phone: Erythrocyte distribution width (RBC) [Entitic vol] 59.0 fL 35.1-43.9 [facility] Work Phone: [phone] Erythrocyte distribution width (RBC) [Ratio] 15.0 % 11.6-14.6 [facility] Work Phone: [phone] Immature granulocytes/100 WBC (Bld) 0.300 % 0.0-0.9 [facility] Work Phone: Comment on above: IG% - Immature Granu locytes (promyelocytes, myelocytes and metamyelocytes) > 1% indicates that a LEFT SHIFT is Present. MCH (RBC) [Entitic mass] 36.8 pg 27.0-32.0 [facility] Work Phone: Nucleated RBC/100 WBC (Bld) [Ratio] 0 % 0-5 [facility] Work Phone: MCHC Auto (RBC) [Mass/Vol]on 10-27-2021 MCHC (RBC) [Mass/Vol] 34.7 g/dL 32-36 [facility] Work Phone: Macrocytes detectionon 10-27 Macrocytes Ql (Bld) 2+ [facility] Work Phone: Mucus LM Ql (Urine sed)on Mucus Ql (Urine sed) 0 SEEN /hpf [facility] Work Phone: [phone] Nitrite Test strip Ql (U)on 10-27-2021 Nitrite Ql (U) Negative Negative [facility] Work Phone: [phone] No Panel Informationon 10-27 Estimated Creatinine Clearance Calc 49.27 ml/min [facility] Work Phone: Estimated GFR (MDRD) Amer 74 mL/min >60 [facility] Work Phone: Comment on above: GFR Calc Estimated GFR (MDRD) Non-Af Amer 61 mL/min >60 [facility] Work Phone: Comment on above: Non- GFR Calc Troponin I High Sensitivity 41 pg/mL 3.0-78.0 [facility] Work Phone: Comment on above: Please Note: New Radha t Units and Gender Specific Reference Ranges. For more information see Policy Stat Procedure [place] High Sensitivity Troponin (TNIH) and attachments. Platelets bldon 10-27-2021 Platelets (Bld) [#/Vol] 115 10*3/uL 150-450 [facility] Work Phone: [phone] Protein Test strip Ql (U)on 10-27-2021 Protein Ql (U) 30 mg/dl Negative [facility] [facility] Work Phone: [phone] Serum or plasma albumin siobhan urement (mass/volume)on 10-27-2021 Albumin [Mass/Vol] 3.1 g/dL 3.2-5.0 [facility] Work Phone: [phone] Serum or plasma albumin/glob ulin mass ratioon 10-27-2021 Albumin/Globulin [Mass ratio] 1.0 {ratio} 0.9-2.4 [facility] Work Phone: [phone] Serum or plasma calcium siobhan urement (mass/volume)on 10-27-2021 Calcium [Mass/Vol] 8.4 mg/dL 8.5-10.1 [facility] Work Phone: [phone] Serum or plasma creatinine m easurement (mass/volume)on 10-27-2021 Creatinine [Mass/Vol] 1.21 mg/dL 0.70-1.30 [facility] Work Phone: Comment on above: The validity of the calculated GFR & GFRAA in patients over 70 years has not been determined. Clinical correlation is essential. Serum or plasma urea nitroge n measurement (mass/volume)on 10-27-2021 Urea nitrogen [Mass/Vol] 21 mg/dL 7-18 [facility] Work Phone: Squamous epithelial cells de tection in urine sediment by light microscopyon 10-27-2021 Epithelial cells.squamous LM Ql (Urine sed) 0 SEEN /hpf 0-5 [facility] Work Phone: Thin prep Papanicolaou smear with manual screeningon 10-27-2021 Thin prep Papanicolaou smear with manual screening 34 U/L 15-37 [facility] Work Phone: Thin prep Papanicolaou smear with manual screening 6 5-15 [facility] Work Phone: Urine blood detectionon RBC Ql (U) 10 /ul Negative [facility] Work Phone: RBC Ql (U) 0 SEEN /hpf 0-5 [facility] Work Phone: Urine clarityon 10-27-2021 Clarity (U) Clear Clear [facility] Work Phone: Urine color determinationon 10-27-2021 Color (U) Yellow Yellow [facility] Work Phone: Urine glucose detectionon Glucose Ql (U) Normal mg/dl Normal [facility] Work Phone: Urine leukocyte esterase det ection by dipstickon 10-27-2021 Leukocyte esterase Test strip Ql (U) 25 /ul Negative [facility] Work Phone: [phone] Urine pHon 10-27-2021 pH (U) 5.0 [pH] 5.0 - 8.0 [facility] Work Phone: [phone] Urine sediment bacteria coun t by microscopy (number/high power field)on 10-27-2021 Bacteria LM.HPF (Urine sed) [#/Area] 0 /[HPF] None Seen [facility] Work Phone: Urine sediment fine granular cast count by microscopy (number/low power field)on 10-27-2021 Fine Granular Casts LM.LPF (Urine sed) [#/Area] 0-5 SEEN /lpf 0-5 [facility] Work Phone: Urine specific gravity measu rementon 10-27-2021 Specific gravity (U) [Rel density] 1.025 1.002-1.030 [facility] Work Phone: Urobilinogen Auto test strip Ql (U)on 10-27-2021 Urobilinogen Ql (U) 1 mg/dl Normal [facility] Work Phone: Absolute lymphocyte counton 10-25-2021 Lymphocytes Auto (Unsp spec) [#/Vol] 0.04 10*3/uL 0.83-4.51 [facility] Work Phone: Basophil percentageon 2021 Basophil percentage 0-5 SEEN /hpf 0-5 [facility] Work Phone: Basophils/100 WBC (Bld) 0.0 % 0-1 [facility] Work Phone: Bilirubin [Mass/Vol] 1.20 mg/dL 0.20-1.00 [facility] Work Phone: Comment on above: For patients on eltr ombopag therapy, use of Dimension [place] TBIL is not recommended. Chloride [Moles/Vol] 106 mmol/L 98-107 [facility] Work Phone: Eosinophils/100 WBC (Bld) 1.0 % 0-5 [facility] Work Phone: Glucose [Mass/Vol] 148 mg/dL 74-106 [facility] Work Phone: Comment on above: Fasting Glucose resu lt greater than or equal to 126 mg/dL suggests DIABETES MELLITUS per A.D.A. criteria. Neutrophils (Bld) [#/Vol] 5.7 10*3/uL 2.0-7.7 [facility] Work Phone: Neutrophils/100 WBC (Bld) 92.1 % 47-70 [facility] Work Phone: Potassium [Moles/Vol] 4.4 mmol/L 3.5-5.1 [facility] Work Phone: Comment on above: Moderate Hemolysis, Result may be falsely increased. Protein [Mass/Vol] 7.0 g/dL 6.4-8.2 [facility] Work Phone: Sodium [Moles/Vol] 139 mmol/L 136-145 [facility] Work Phone: WBC (Bld) [#/Vol] 6.1 10*3/uL 4.4-11.0 [facility] Work Phone: [phone] Bilirubin Test strip Ql (U)o n 10-25-2021 Bilirubin Ql (U) 1 mg/dL Negative [facility] Work Phone: Comment on above: COLOR OF URINE MAY A FFECT DIPSTICK RESULTS. Blood erythrocytes count (nu mber/volume)on 10-25-2021 RBC (Bld) [#/Vol] 3.90 10*6/uL 4.6-6.2 [facility] Work Phone: [phone] Blood hemoglobin measurement (mass/volume)on 10-25-2021 Hemoglobin (Bld) [Mass/Vol] 14.2 g/dL 13.0-16.5 [facility] Work Phone: Blood lymphocytes/100 leukoc yteson 10-25-2021 Lymphocytes/100 WBC (Bld) 0.7 % 19-41 [facility] Work Phone: Blood manual differential co mment interpretation (narrative result)on 10-25-2021 Manual differential comment Randy (Bld) [Interp] SCANNED [facility] Work Phone: Blood monocytes/100 leukocyt eson 10-25-2021 Monocytes/100 WBC (Bld) 6.0 % 0-10 [facility] Work Phone: Blood platelet mean volumeon 10-25-2021 Platelet mean volume (Bld) [Entitic vol] 12.3 fL 6.2-12.0 [facility] Work Phone: [phone] Determination of erythrocyte mean corpuscular volume (MCV)on 10-25-2021 MCV (RBC) [Entitic vol] 107.7 fL 80-94 [facility] Work Phone: Hematocrit Auto (Bld) [Volum e fraction]on 10-25-2021 Hematocrit (Bld) [Volume fraction] 42.0 % 40-54 [facility] Work Phone: Ketones Test strip Ql (U)on 10-25-2021 Ketones Ql (U) Negative Negative [facility] Work Phone: Laboratory - Chemistry and C hemistry - challengeon 10-25-2021 ALP [Catalytic activity/Vol] 69 U/L 45-117 [facility] Work Phone: ALT [Catalytic activity/Vol] 26 U/L 16-61 [facility] Work Phone: CO2 [Moles/Vol] 27.0 mmol/L 21.0-32.0 [facility] Work Phone: Globulin (S) [Mass/Vol] 3.5 g/dL 2.2-4.2 [facility] Work Phone: Lipase [Catalytic activity/Vol] 267 U/L 73-393 [facility] Work Phone: Urea nitrogen/Creatinine [Mass ratio] 18.2 mg/mg 10-20 [facility] Work Phone: [phone] Laboratory - Hematology and Cell countson 10-25-2021 Erythrocyte distribution width (RBC) [Entitic vol] 59.0 fL 35.1-43.9 [facility] Work Phone: [phone] Erythrocyte distribution width (RBC) [Ratio] 14.7 % 11.6-14.6 [facility] Work Phone: Immature granulocytes/100 WBC (Bld) 0.200 % 0.0-0.9 [facility] Work Phone: Comment on above: IG% - Immature Granu locytes (promyelocytes, myelocytes and metamyelocytes) > 1% indicates that a LEFT SHIFT is Present. MCH (RBC) [Entitic mass] 36.4 pg 27.0-32.0 [facility] Work Phone: Nucleated RBC/100 WBC (Bld) [Ratio] 0 % 0-5 [facility] Work Phone: [phone] MCHC Auto (RBC) [Mass/Vol]on 10-25-2021 MCHC (RBC) [Mass/Vol] 33.8 g/dL 32-36 [facility] Work Phone: Mucus LM Ql (Urine sed)on Mucus Ql (Urine sed) 0 SEEN /hpf [facility] Work Phone: [phone] Nitrite Test strip Ql (U)on 10-25-2021 Nitrite Ql (U) Negative Negative [facility] Work Phone: No Panel Informationon 10-25 Estimated Creatinine Clearance Calc 49.27 ml/min [facility] Work Phone: Estimated GFR (MDRD) Amer 74 mL/min >60 [facility] Work Phone: Comment on above: GFR Calc Estimated GFR (MDRD) Non-Af Amer 61 mL/min >60 [facility] Work Phone: [phone] Comment on above: Non- GFR Calc Troponin I High Sensitivity 4 pg/mL 3.0-78.0 [facility] Work Phone: [phone] Comment on above: Please Note: New Radha t Units and Gender Specific Reference Ranges. For more information see Policy Stat Procedure [place] High Sensitivity Troponin (TNIH) and attachments. Platelets bldon 10-25-2021 Platelets (Bld) [#/Vol] 131 10*3/uL 150-450 [facility] Work Phone: [phone] Protein Test strip Ql (U)on 10-25-2021 Protein Ql (U) 15 mg/dl Negative [facility] Work Phone: [phone] Serum or plasma albumin siobhan urement (mass/volume)on 10-25-2021 Albumin [Mass/Vol] 3.5 g/dL 3.2-5.0 [facility] Work Phone: [phone] Serum or plasma albumin/glob ulin mass ratioon 10-25-2021 Albumin/Globulin [Mass ratio] 1.0 {ratio} 0.9-2.4 [facility] Work Phone: [phone] Serum or plasma calcium siobhan urement (mass/volume)on 10-25-2021 Calcium [Mass/Vol] 8.7 mg/dL 8.5-10.1 [facility] Work Phone: [phone] Serum or plasma creatinine m easurement (mass/volume)on 10-25-2021 Creatinine [Mass/Vol] 1.21 mg/dL 0.70-1.30 [facility] Work Phone: [phone] Comment on above: The validity of the calculated GFR & GFRAA in patients over 70 years has not been determined. Clinical correlation is essential. Serum or plasma urea nitroge n measurement (mass/volume)on 10-25-2021 Urea nitrogen [Mass/Vol] 22 mg/dL 7-18 [facility] Work Phone: [phone] Squamous epithelial cells de tection in urine sediment by light microscopyon 10-25-2021 Epithelial cells.squamous LM Ql (Urine sed) 0 SEEN /hpf 0-5 [facility] Work Phone: [phone] Thin prep Papanicolaou smear with manual screeningon 10-25-2021 Thin prep Papanicolaou smear with manual screening 27 U/L 15-37 [facility] Work Phone: [phone] Comment on above: Moderate Hemolysis, Result may be falsely increased. Thin prep Papanicolaou smear with manual screening 6 5-15 [facility] Work Phone: [phone] Urine blood detectionon RBC Ql (U) 10 /ul Negative [facility] Work Phone: [phone] RBC Ql (U) 0 SEEN /hpf 0-5 [facility] Work Phone: Urine clarityon 10-25-2021 Clarity (U) Clear Clear [facility] Work Phone: Urine color determinationon 10-25-2021 Color (U) Yellow Yellow [facility] Work Phone: Urine glucose detectionon Glucose Ql (U) Normal mg/dl Normal [facility] Work Phone: [phone] Urine leukocyte esterase det ection by dipstickon 10-25-2021 Leukocyte esterase Test strip Ql (U) 25 /ul Negative [facility] Work Phone: Urine pHon 10-25-2021 pH (U) 6.0 [pH] 5.0 - 8.0 [facility] Work Phone: Urine sediment bacteria coun t by microscopy (number/high power field)on 10-25-2021 Bacteria LM.HPF (Urine sed) [#/Area] 0 /[HPF] None Seen [facility] Work Phone: Urine specific gravity measu rementon 10-25-2021 Specific gravity (U) [Rel density] 1.015 1.002-1.030 [facility] Work Phone: Urobilinogen Auto test strip Ql (U)on 10-25-2021 Urobilinogen Ql (U) Normal mg/dl Normal [facility] Work Phone: Absolute lymphocyte counton 08-06-2021 Lymphocytes Auto (Unsp spec) [#/Vol] 0.60 10*3/uL 0.83-4.51 [facility] Work Phone: Basophil percentageon 2021 Basophils/100 WBC (Bld) 0.5 % 0-1 [facility] Work Phone: Bilirubin [Mass/Vol] 0.70 mg/dL 0.20-1.00 [facility] Work Phone: [phone] Comment on above: For patients on eltr ombopag therapy, use of Dimension [place] TBIL is not recommended. Chloride [Moles/Vol] 107 mmol/L 98-107 [facility]: Eosinophils/100 WBC (Bld) 4.9 % 0-5 [facility] Work Phone: Glucose [Mass/Vol] 109 mg/dL 74-106 [facility] Work Phone: Comment on above: Fasting Glucose resu lt from 100 to 125 mg/dL suggests IMPAIRED HOMEOSTASIS per A.D.A. criteria. Neutrophils (Bld) [#/Vol] 2.6 10*3/uL 2.0-7.7 [facility] Work Phone: Neutrophils/100 WBC (Bld) 60.1 % 47-70 [facility] Work Phone: Potassium [Moles/Vol] 4.6 mmol/L 3.5-5.1 [facility] Work [facility]: Protein [Mass/Vol] 6.8 g/dL 6.4-8.2 [facility] Work Phone: Sodium [Moles/Vol] 140 mmol/L 136-145 [facility] Work Phone: WBC (Bld) [#/Vol] 4.3 10*3/uL 4.4-11.0 [facility] Work Phone: Blood erythrocytes count (nu mber/volume)on 08-06-2021 RBC (Bld) [#/Vol] 3.47 10*6/uL 4.6-6.2 [facility] Work Phone: Blood hemoglobin measurement (mass/volume)on 08-06-2021 Hemoglobin (Bld) [Mass/Vol] 12.6 g/dL 13.0-16.5 [facility] Work Phone: Blood lymphocytes/100 leukoc yteson 08-06-2021 Lymphocytes/100 WBC (Bld) 13.9 % 19-41 [facility] Work Phone: Blood manual differential co mment interpretation (narrative result)on 08-06-2021 Manual differential comment Randy (Bld) [Interp] SCANNED [facility] Work Phone: Comment on above: LYMPHOPENIA NOTED Blood monocytes/100 leukocyt eson 08-06-2021 Monocytes/100 WBC (Bld) 20.4 % 0-10 [facility] Work Phone: Blood platelet mean volumeon 08-06-2021 Platelet mean volume (Bld) [Entitic vol] 12.4 fL 6.2-12.0 [facility] Work Phone: Determination of erythrocyte mean corpuscular volume (MCV)on 08-06-2021 MCV (RBC) [Entitic vol] 110.1 fL 80-94 [facility] Work Phone: Hematocrit Auto (Bld) [Volum e fraction]on 08-06-2021 Hematocrit (Bld) [Volume fraction] 38.2 % 40-54 [facility] Work Phone: Laboratory - Chemistry and C hemistry - challengeon 08-06-2021 ALP [Catalytic activity/Vol] 73 U/L 45-117 [facility] Work Phone: ALT [Catalytic activity/Vol] 27 U/L 16-61 [facility] Work Phone: [phone] CO2 [Moles/Vol] 28.0 mmol/L 21.0-32.0 [facility] Work Phone: Globulin (S) [Mass/Vol] 3.4 g/dL 2.2-4.2 [facility] Work Phone: Urea nitrogen/Creatinine [Mass ratio] 13.8 mg/mg 10-20 [facility] Work Phone: [phone] Laboratory - Hematology and Cell countson 08-06-2021 Erythrocyte distribution width (RBC) [Entitic vol] 59.9 fL 35.1-43.9 [facility] Work Phone: [phone] Erythrocyte distribution width (RBC) [Ratio] 14.6 % 11.6-14.6 [facility] Work Phone: Immature granulocytes/100 WBC (Bld) 0.200 % 0.0-0.9 [facility] Work Phone: [phone] Comment on above: IG% - Immature Granu locytes (promyelocytes, myelocytes and metamyelocytes) > 1% indicates that a LEFT SHIFT is Present. MCH (RBC) [Entitic mass] 36.3 pg 27.0-32.0 [facility] Work Phone: [phone] Nucleated RBC/100 WBC (Bld) [Ratio] 0 % 0-5 [facility] Work Phone: [phone] MCHC Auto (RBC) [Mass/Vol]on 08-06-2021 MCHC (RBC) [Mass/Vol] 33.0 g/dL 32-36 [facility] Work Phone: No Panel Informationon 08-06 Estimated GFR (MDRD) Amer 68 mL/min >60 [facility] Work Phone: Comment on above: GFR Calc Estimated GFR (MDRD) Non-Af Amer 56 mL/min >60 [facility] Work Phone: Comment on above: Non- GFR Calc Thyroid Stimulating Hormone (TSH) 1.70 uIU/mL 0.358-3.74 [facility] Work Phone: Vitamin D 25-Hydroxy 24.3 ng/mL [facility] Work Phone: [phone] Comment on above: Vitamin D 25(OH) Sta tus Range Deficiency <20 ng/mL (50nmol/L) Insufficiency 20 - 30 ng/mL (50 - 75 nmol/L) Sufficiency 30 - 100 ng/mL (75 - 250 nmol/L) Toxicity >100 ng/mL (>250 nmol/L) Platelets bldon 08-06-2021 Platelets (Bld) [#/Vol] 140 10*3/uL 150-450 [facility] Work Phone: Review by pathologiston 07-28 Pathologist review Randy (Unsp spec) [Interp] Reviewed [facility] Work Phone: Comment on above: Previous reported re sult: Sherrie padilla Edited by: RGOOD on 08/10/21:0936MacrocytosisClinical correlation necessary.Eugenio Valenzuela M.D. 08/10/21 AMENDED REPORT 08/10/21 0936 PATH REV previously reported as: October valerie Serum or plasma albumin siobhan urement (mass/volume)on 08-06-2021 Albumin [Mass/Vol] 3.4 g/dL 3.2-5.0 [facility] Work Phone: Serum or plasma albumin/glob ulin mass ratioon 08-06-2021 Albumin/Globulin [Mass ratio] 1.0 {ratio} 0.9-2.4 [facility] Work Phone: [phone] Serum or plasma calcium siobhan urement (mass/volume)on 08-06-2021 Calcium [Mass/Vol] 8.9 mg/dL 8.5-10.1 [facility] Work Phone: Serum or plasma creatinine m easurement (mass/volume)on 08-06-2021 Creatinine [Mass/Vol] 1.30 mg/dL 0.70-1.30 [facility] Work Phone: Comment on above: The validity of the calculated GFR & GFRAA in patients over 70 years has not been determined. Clinical correlation is essential. Serum or plasma urea nitroge n measurement (mass/volume)on 08-06-2021 Urea nitrogen [Mass/Vol] 18 mg/dL 7-18 [facility] Work Phone: Thin prep Papanicolaou smear with manual screeningon 08-06-2021 Thin prep Papanicolaou smear with manual screening 22 U/L 15-37 [facility] Work Phone: Thin prep Papanicolaou smear with manual screening 5 5-15 [facility] Work Phone: Vital Signs Date Time Vital Sign Value Performing Clinician Facility 01-26-2025 06:00-0400 Body temperature 97.6 [degF] Dr. Kaiser Pan MD Work Phone: [facility] 01-26-2025 06:00-0400 Diastolic blood pressure 75 mm[Hg] Dr. Kaiser Pan MD Work Phone: [phone] [place] [address] 01-26-2025 06:00-0400 Heart rate 88 /min Dr. Kaiser Pan MD Work Phone: [phone])891-524778 [place] [address] 01-26-2025 06:00-0400 Respiratory rate 16 /min Dr. Kaiser Pan MD Work Phone: [phone])733-334667 [place] [address] 01-26-2025 06:00-0400 SaO2% (BldA) [Mass fraction] 96 % Dr. Kaiser Pan MD Work Phone: 1([phone])898-862967 [place] [address] 01-26-2025 06:00-0400 Systolic blood pressure 145 mm[Hg] Dr. Kaiser Pan MD Work Phone: [phone])041-304267 [place] [address] 01-23-2025 06:00-0400 Body mass index (BMI) [Ratio] 36.7 kg/m2 Dr. Kaiser Pan MD Work Phone: 0([phone])179-538367 [place] [address] 01-23-2025 06:00-0400 Body weight 112.[address] Kaiser Pan MD Work Phone: 6([phone])718-656467 [place] [address] 01-18-2025 11:28-0400 Body height 175.[address] Kaiser Pan MD Work Phone: 4(331)874-474367 [place] [address] 01-15-2025 15:10-0400 Inhaled oxygen concentration 21 % Dr. Kaiser Pan MD Work Phone: [phone])861-140367 [place] [address] 01-10-2025 13:07-0400 Body temperature 98 [degF] Dr. Kaiser Pan MD Work Phone: [phone])962-211667 [place] [address] 01-10-2025 13:07-0400 Diastolic blood pressure 84 mm[Hg] Dr. Kaiser Pan MD Work Phone: 7(434)483-702967 [place] [address] 01-10-2025 13:07-0400 Heart rate 92 /min Dr. Kaiser Pan MD Work Phone: 3(330)188-080567 [place] [address] 01-10-2025 13:07-0400 Respiratory rate 16 /min Dr. Kaiser Pan MD Work Phone: [facility] 01-10-2025 13:07-0400 SaO2% (BldA) [Mass fraction] 96 % Dr. Kaiser Pan MD Work Phone: 4(311)013-593678 [place] [address] 01-10-2025 13:07-0400 Systolic blood pressure 158 mm[Hg] Dr. Kaiser Pan MD Work Phone: 9(770)641-203167 [place] [address] 01-10-2025 10:15-0400 Body height 175.[address] Kaiser Pan MD Work Phone: 5(683)069-812267 [place] [address] 07-13-2023 13:52-0500 Body height 175.[address] Kaiser Pan Work Phone: [phone])087-496467 [place] [address] 07-13-2023 13:52-0500 Body mass index (BMI) [Ratio] 37.2 kg/m2 Dr. Kaiser Pan Work Phone: 1([phone])899-261167 [place] [address] 07-13-2023 13:52-0500 Body weight 114.[address] Kaiser Pan Work Phone: 8(574)385-999667 [place] [address] 07-13-2023 13:52-0500 Diastolic blood pressure 73 mm[Hg] Dr. Kaiser Pan Work Phone: 6(609)709-988767 [place] [address] 07-13-2023 13:52-0500 Heart rate 63 /min Dr. Kaiser Pan Work Phone: 8(036)864-589767 [place] [address] 07-13-2023 13:52-0500 Respiratory rate 18 /min Dr. Kaiser Pan Work Phone: 1(223)258-802778 [place] [address] 07-13-2023 13:52-0500 Systolic blood pressure 125 mm[Hg] Dr. Kaiser Pan Work Phone: 9(083)522-092978 [place] [address] 02-03-2023 21:19-0400 Diastolic blood pressure 82 mm[Hg] Dr. Kaiser Pan Work Phone: 2(901)155-895378 [place] [address] 02-03-2023 21:19-0400 Heart rate 67 /min Dr. Kaiser Pan Work Phone: 3(492)289-133878 [place] [address] 02-03-2023 21:19-0400 Respiratory rate 20 /min Dr. Kaiser Pan Work Phone: [facility] 02-03-2023 21:19-0400 SaO2% (BldA) [Mass fraction] 98 % Dr. Kaiser Pan Work Phone: [facility] 02-03-2023 21:19-0400 Systolic blood pressure 170 mm[Hg] Dr. Kaiser Pan Work Phone: [facility] 02-03-2023 19:19-0400 Body height 175.[address] Kaiser Pan Work Phone: 3(413)400-241478 [place] [address] 02-03-2023 19:19-0400 Body temperature 97.6 [degF] Dr. Kaiser Pan Work Phone: [phone])894-894978 [place] [address] 01-23-2023 15:10-0400 SaO2% (BldA) [Mass fraction] 98 % Dr. Kaiser Pan Work Phone: [facility] 01-23-2023 11:50-0400 Body temperature 97.8 [degF] Dr. Kaiser Pan Work Phone: [facility] 01-23-2023 11:50-0400 Diastolic blood pressure 81 mm[Hg] Dr. Kaiser Pan Work Phone: [facility] 01-23-2023 11:50-0400 Heart rate 63 /min Dr. Kaiser Pan Work Phone: [facility] 01-23-2023 11:50-0400 Respiratory rate 16 /min Dr. Kaiser Pan Work Phone: [facility] 01-23-2023 11:50-0400 Systolic blood pressure 141 mm[Hg] Dr. Kaiser Pan Work Phone: [facility] 01-22-2023 16:02-0400 Body height 175.[address] Kaiser Pan Work Phone: [facility] 01-22-2023 16:02-0400 Body weight 119.[address] Kaiser Pan Work Phone: [facility] 01-21-2023 19:49-0400 Body mass index (BMI) [Ratio] 38.8 kg/m2 Dr. Kaiser Pan Work Phone: [facility] 11-18-2022 14:04-0400 Body mass index (BMI) [Ratio] 37.5 kg/m2 Dr. Kaiser Pan Work Phone: [facility] 11-18-2022 14:04-0400 Body weight 118.[address] Kaiser Pan Work Phone: [facility] 11-18-2022 14:04-0400 Diastolic blood pressure 71 mm[Hg] Dr. Kaiser Pan Work Phone: [facility] 11-18-2022 14:04-0400 Heart rate 64 /min Dr. Kaiser Pan Work Phone: [facility] 11-18-2022 14:04-0400 Respiratory rate 18 /min Dr. Kaiser Pan Work Phone: [facility] 11-18-2022 14:04-0400 Systolic blood pressure 116 mm[Hg] Dr. Kaiser Pan Work Phone: [facility] 11-06-2021 09:10-0400 Body temperature 97.9 [degF] Dr. Kaiser Pan Work Phone: [facility] Work Phone: 11-06-2021 09:10-0400 Diastolic blood pressure 71 mm[Hg] Dr. Kaiser Pan Work Phone: [facility] Work Phone: 11-06-2021 09:10-0400 Heart rate 69 /min Dr. Kaiser Pan Work Phone: [facility] Work Phone: 11-06-2021 09:10-0400 Respiratory rate 16 /min Dr. Kaiser Pan Work Phone: [facility] Work Phone: 11-06-2021 09:10-0400 SaO2% (BldA) [Mass fraction] 95 % Dr. Kaiser Pan Work Phone: [facility] Work Phone: 11-06-2021 09:10-0400 Systolic blood pressure 121 mm[Hg] Dr. Kaiser Pan Work Phone: [facility] Work Phone: 11-04-2021 14:01-0400 Body height 177.[address] Kaiser Pan Work Phone: [facility] Work Phone: 11-04-2021 14:01-0400 Body weight 114.[address] Kaiser Pan Work Phone: [facility] Work Phone: 10-28-2021 15:47-0400 Body mass index (BMI) [Ratio] 37.8 kg/m2 Dr. Kaiser Pan Work Phone: [facility] Work Phone: 10-28-2021 14:30-0400 Body temperature 98.3 [degF] Dr. Kaiser Pan Work Phone: [facility] Work Phone: 10-28-2021 14:30-0400 Diastolic blood pressure 73 mm[Hg] Dr. Kaiser Pan Work Phone: [facility] Work Phone: 10-28-2021 14:30-0400 Heart rate 69 /min Dr. Kaiser Pan Work Phone: [facility] Work Phone: 10-28-2021 14:30-0400 Respiratory rate 18 /min Dr. Kaiser Pan Work Phone: [facility] Work Phone: 10-28-2021 14:30-0400 SaO2% (BldA) [Mass fraction] 95 % Dr. Kaiser Pan Work Phone: [facility] Work Phone: 10-28-2021 14:30-0400 Systolic blood pressure 118 mm[Hg] Dr. Kaiser Pan Work Phone: [facility] Work Phone: 10-27-2021 21:31-0400 Body temperature 98.6 [degF] Dr. Kaiser Pan Work Phone: [facility] Work Phone: 10-27-2021 21:31-0400 Diastolic blood pressure 60 mm[Hg] Dr. Kaiser Pan Work Phone: [facility] Work Phone: 10-27-2021 21:31-0400 Heart rate 78 /min Dr. Kaiser Pan Work Phone: [facility] Work Phone: 10-27-2021 21:31-0400 Respiratory rate 17 /min Dr. Kaiser Pan Work Phone: [facility] Work Phone: 10-27-2021 21:31-0400 SaO2% (BldA) [Mass fraction] 94 % Dr. Kaiser Pan Work Phone: [facility] Work Phone: 10-27-2021 21:31-0400 Systolic blood pressure 113 mm[Hg] Dr. Kaiser Pan Work Phone: [facility] Work Phone: 10-27-2021 16:39-0400 Body temperature 97.9 [degF] Dr. Kaiser Pan Work Phone: [facility] Work Phone: 10-27-2021 16:39-0400 Diastolic blood pressure 60 mm[Hg] Dr. Kaiser Pan Work Phone: [facility] Work Phone: 10-27-2021 16:39-0400 Heart rate 76 /min Dr. Kaiser Pan Work Phone: [facility] Work Phone: 10-27-2021 16:39-0400 Respiratory rate 18 /min Dr. Kaiser Pan Work Phone: [facility] Work Phone: 10-27-2021 16:39-0400 SaO2% (BldA) [Mass fraction] 97 % Dr. Kaiser Pan Work Phone: [facility] Work Phone: 10-27-2021 16:39-0400 Systolic blood pressure 106 mm[Hg] Dr. Kaiser Pan Work Phone: [facility] Work Phone: 10-27-2021 08:37-0400 Body weight 115.[address] Kaiser Pan Work Phone: [facility] Work Phone: 10-27-2021 08:34-0400 Body height 177.[address] Kaiser Pan Work Phone: [facility] Work Phone: 10-27-2021 08:34-0400 Body mass index (BMI) [Ratio] 36.4 kg/m2 Dr. Kaiser Pan Work Phone: [facility] Work Phone: 10-25-2021 20:17-0400 Diastolic blood pressure 78 mm[Hg] Dr. Kaiser Pan Work Phone: [facility] Work Phone: 10-25-2021 20:17-0400 Heart rate 90 /min Dr. Kaiser Pan Work Phone: [facility] Work Phone: 10-25-2021 20:17-0400 Respiratory rate 18 /min Dr. Kaiser Pan Work Phone: [facility] Work Phone: 10-25-2021 20:17-0400 SaO2% (BldA) [Mass fraction] 94 % Dr. Kaiser Pna Work Phone: [facility] Work Phone: 10-25-2021 20:17-0400 Systolic blood pressure 145 mm[Hg] Dr. Kaiser Pan Work Phone: [facility] Work Phone: 10-25-2021 15:34-0400 Body mass index (BMI) [Ratio] 34.8 kg/m2 Dr. Kaiser Pan Work Phone: [facility] Work Phone: 10-25-2021 15:34-0400 Body temperature 98.1 [degF] Dr. Kaiser Pan Work Phone: [facility] Work Phone: 10-25-2021 15:34-0400 Body weight 113.[address] Kaiser Pan Work Phone: [facility] Work Phone: 08-18-2021 13:26-0500 Body mass index (BMI) [Ratio] 37.2 kg/m2 Dr. Kaiser Pan Work Phone: [facility] Work Phone: 08-18-2021 13:26-0500 Body weight 121.[address] Kaiser Pan Work Phone: [facility] Work Phone: 08-18-2021 13:26-0500 Diastolic blood pressure 69 mm[Hg] Dr. Kaiser Pan Work Phone: [facility] Work Phone: 08-18-2021 13:26-0500 Heart rate 66 /min Dr. Kaiser Pan Work Phone: [facility] Work Phone: 08-18-2021 13:26-0500 Respiratory rate 18 /min Dr. Kaiser Pan Work Phone: [facility] Work Phone: 08-18-2021 13:26-0500 SaO2% (BldA) [Mass fraction] 96 % Dr. Kaiser Pan Work Phone: [facility] Work Phone: 08-18-2021 13:26-0500 Systolic blood pressure 129 mm[Hg] Dr. Kaiser Pan Work Phone: [facility] Work Phone: Encounters Encounter Date Encounter Type Care Provider Facility Start: 01-25-2025 Non-patient / Non-visit Anahi Flynn NP-C -[facility] Work Phone: Start: 01-23-2025 Non-patient / Non-visit Dr. Etelvina Baum [facility] Work Phone: Start: 01-22-2025 Non-patient / Non-visit Dr. Etelvina Baum [facility] Work Phone: Start: 01-21-2025 Non-patient / Non-visit Dr. Etelvina Baum [facility] Work Phone: Start: 01-16-2025 Non-patient / Non-visit Dr. Etelvina Baum [facility] Work Phone: Start: 01-15-2025 Non-patient / Non-visit Dr. Etelvina Baum [facility] Work Phone: Start: 01-14-2025 Non-patient / Non-visit Dr. Etelvina Baum [facility] Work Phone: Start: 01-12-2025 Non-patient / Non-visit Dr. Etelvina Baum [facility] Work Phone: Start: 01-11-2025 Non-patient / Non-visit Anahi NAVARRETEC -[facility] Start: 01-11-2025 ambulatory Mallory Baum Facility[place] Start: 01-11-2025 End: 01-26-2025 Evaluation and management of inpatient Mallory Baum Facility:[facility] Start: 01-10-2025 End: 01-10-2025 Emergency department patient visit Dr. Kaiser Pan MD Work Phone: -Emergency Department Work Phone: Start: 11-13-2024 End: 11-13-[address] Kaiser Pan MD -Laboratory Work Phone: Start: 11-13-2024 End: 11-13-2024 ambulatory Kaiser Chi Maxim Facility:[facility] Start: 08-20-2024 End: 08-20-2024 ambulatory Kaiser Chi Maxim Facility:[facility] Start: 08-16-2024 End: 08-16-2024 ambulatory Kaiser Chi Maxim Facility:[facility] Start: 08-15-2024 ambulatory Kaiser Chi Maxim Facility:[facility] Start: 08-13-2024 End: 08-13-2024 ambulatory Kaiser Chi Maxim Facility:[facility] Start: 08-10-2024 End: 08-10-2024 ambulatory Kaiser Chi Maxim Facility:[facility] Start: 08-09-2024 End: 08-09-2024 ambulatory Paulino H Roof WILTON WEAVER Facility:[facility] Start: 08-02-2024 End: 08-02-2024 ambulatory Kaiser Chi Maxim Facility:[facility] Start: 07-17-2024 End: 07-17-2024 ambulatory Paulino H Roof WILTON WEAVER [place] Start: 02-14-2024 End: 02-14-2024 ambulatory Kaiser Chi Maxim Facility:[facility] Start: 10-10-2023 Non-patient / Non-visit Dr. Jesse Pan Work Phone: [facility] Start: 10-10-2023 End: 10-10-[address] Kaiser Pan Work Phone: [facility] Work Phone: Start: 10-10-2023 End: 10-10-[address] [facility] Start: 08-25-2023 Non-patient / Non-visit Dr. Jesse Pan Work Phone: [facility] Work Phone: Start: 08-19-2023 End: 08-19-[address] Kaiser Pan Work Phone: [facility] Work Phone: Start: 08-19-2023 End: 08-19-[address] [facility] Start: 08-18-2023 Non-patient / Non-visit Dr. Jesse Pan Work Phone: [facility] Start: 08-18-2023 End: 08-18-[address] Kaiser Pan Work Phone: [facility] Work Phone: Start: 08-18-2023 End: 08-18-[address] [facility] Start: 08-15-2023 End: 08-15-[address] Kaiser Pan Work Phone: [facility] Work Phone: Start: 08-15-2023 End: 08-15-[address] Kaiser Pan Work Phone: [facility]-Laboratory Work Phone: Start: 07-13-2023 End: 07-13-[address] Kaiser Pan Work Phone: [facility] Work Phone: Start: 07-13-2023 End: 07-13-[address] Kaiser Pan Work Phone: [facility] Work Phone: Start: 07-13-2023 End: 07-13-[address] Kaiser Pan Work Phone: [facility] Work Phone: Start: 05-09-2023 End: 05-09-[address] Kaiser Pan Work Phone: [facility] Work Phone: Start: 05-09-2023 End: 05-09-[address] [facility] Start: 02-07-2023 End: 02-07-[address] Kaiser Pan Work Phone: [facility] Work Phone: Start: 02-07-2023 End: 02-07-[address] [facility] Start: 02-03-2023 End: 02-03-2023 Emergency department patient [facility] Start: 01-23-2023 Non-patient / Non-visit Dr. Jesse Pan Work Phone: [facility] Work Phone: Start: 01-22-2023 Non-patient / Non-visit Dr. Jesse Pan Work Phone: [facility] Work Phone: Start: 01-21-2023 Non-patient / Non-visit Dr. Jesse Pan Work Phone: [facility] Work Phone: Start: 01-21-2023 End: 01-23-2023 Evaluation and management of inpatient [facility] Kaiser [facility]: Start: 11-18-2022 End: 11-18-[address] Kaiser Pan Work Phone: [facility] Work Phone: Start: 11-08-2022 End: 11-08-[address] Kaiser [facility] Start: 08-09-2022 End: 08-09-[address] Kaiser Pan Work Phone: [facility] Work Phone: Start: 08-09-2022 End: 08-09-[address] Kaiser [facility] Start: 04-27-2022 Non-patient / Non-visit Dr. Jesse Pan Work Phone: [facility] Start: 04-27-2022 End: 04-27-[address] Kaiser [facility] Start: 02-04-2022 End: 02-04-[address] Kaiser Pan Work Phone: [facility]-Laboratory Start: 01-13-2022 End: 01-13-[address] [facility] Start: 10-28-2021 End: 11-06-2021 Evaluation and management of inpatient Dr. Kaiser Pan Work Phone: [facility]-Transitional Care Unit Start: 10-28-2021 Non-patient / Non-visit Dr. Jesse Pan Work Phone: [facility] Start: 10-27-2021 End: 10-28-2021 Evaluation and management of inpatient Dr. Kaiser Pan Work Phone: [facility]-Progressive Care Unit Start: 10-25-2021 End: 10-25-2021 Emergency department patient visit Dr. Kaiser Pan Work Phone: [facility]-Emergency Department Start: 08-29-2021 Non-patient / Non-visit Dr. Jesse Pan Work Phone: [facility] Start: 08-28-2021 End: 08-28-[address] Kaiser Pan Work Phone: [facility]-Pulmonary Services/Neurology Start: 08-18-2021 End: 08-18-[address] Kaiser Pan Work Phone: [facility] Start: 08-06-2021 End: 08-06-[address] Kaiser Pan Work Phone: [facility]-Laboratory, Phy Office 3rd Flr Procedures Date Procedure Procedure Detail Performing Clinician Start: 01-24-[address] Kaiser chacon MD Work Phone: Start: 01-24-2025 Urnls dip stick/tabl et reagent auto microscopy Dr. Kaiser Pan MD Work Phone: Start: 01-22-[address] Kaiser Pan MD Work Phone: Start: 01-15-2025 Fluoroscopy guided injection of cervical spinal nerve root Dr. Kaiser Pan MD Work Phone: Start: 01-15-2025 Injection of facet joint Dr. Kaiser Pan MD Work Phone: Start: 01-15-2025 Local anesthetic lum bar facet joint nerve block Dr. Kaiser Pan MD Work Phone: Start: 01-15-[address] Kaiser Pan MD Work Phone: Start: 01-14-2025 Plain X-ray abdomen Dr. Kaiser Pan MD Work Phone: Start: 01-12-2025 Measurement of occul t blood in stool specimen using immunoassay Dr. Kaiser Pan MD Work Phone: Start: 01-11-2025 Serum inorganic phos phate measurement Dr. Kaiser Pan MD Work Phone: Start: 01-10-2025 X-ray of chest posteroanterior view Dr. Kaiser Pan MD Work Phone: Start: 11-13-2024 Vitamin D, 25-hydrox y measurement Dr. Kaiser Pan MD Work Phone: Comment on above: Vitamin D StatusDefi ciency: <20 ng/mL (50nmol/L)Insufficiency: 20-30 ng/mL (50-75 nmol/L)Sufficiency: 30-100 ng/mL (75-250 nmol/L)Toxicity: >100 ng/mL (>250 nmol/L) Start: 08-19-2023 Cardiovascular stres s test using pharmacologic stress agent Dr. Kaiser Pan Work Phone: Start: 02-03-2023 Plain x-ray of pelvi s and lower extremity Dr. Kaiser Pan Work Phone: Start: 01-21-2023 CT angiography of ch est with contrast Dr. Kaiser Pan Work Phone: Start: 01-21-2023 Plain chest X-ray Dr. Jeison Pan Work Phone: Start: 01-21-2023 SARS-CoV-2 & FLU Ant igen (Rapid) Dr. Kaiser Pan Work Phone: Start: 01-13-2022 Radiologic examinati on of knee Dr. Kaiser Pan Work Phone: Start: 11-02-2021 End: 11-02-[address] Kaiser Pan Work Phone: Start: 10-28-2021 Diagnostic radiograp hy of abdomen Dr. Kaiser Pan Work Phone: Start: 10-28-2021 End: 10-28-[address] Kaiser Pan Work Phone: Start: 10-27-2021 Radiologic examinati on of knee Dr. Kaiser Pan Work Phone: Start: 10-27-2021 Plain chest X-ray Dr. Jeison Pan Work Phone: Start: 10-25-2021 US scan of gallbladder Dr. Kaiser Pan Work Phone: Start: 10-25-2021 Plain chest X-ray Dr. Jeison Pan Work Phone: Start: 10-25-2021 Computed tomography of abdomen and pelvis with intravenous contrast Dr. 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 Kaiser Pan Work Phone: Comment on above: VAZQUEZ to LAD, SVG to RCA and diag branch of LAD and repair of dissection with graft and reimplantation of SVG to RCA and diag branch History of coronary artery bypass grafting Aortocoronary bypass status Dr. Kaiser Pan Work Phone: History of decompres julissa of median nerve History of carpal tunnel surgery Dr. Kaiser Pan Work Phone: History of operative procedure on knee History of bilateral knee replacement Dr. Kaiser Pan Work Phone: History of percutane ous transluminal coronary angioplasty History of percutaneous transluminal coronary angioplasty Dr. Kaiser Pan Work Phone: Comment on above: PTCA of the CFX intr acoronary stent Viral antigen assay Dr. Kaiser Pan Work Phone: Plan of Treatment Date Care Activity Detail Author Start: 01-26-2025 Patient discharge [facility] Start: 01-24-2025 Introduction of urinary catheter [facility] Start: 01-22-2025 End: 01-23-2025 [facility] Start: 01-21-2025 Urinary bladder resi dual urine study [facility] Start: 01-14-2025 Consultation for pain [facility] Start: 01-11-2025 [facility] Start: 01-11-2025 Consultation for treatment [facility] Start: 01-11-2025 Recommendation to co kandi with treatment [facility] Start: 01-11-2025 Following clinical p athway protocol [facility] Start: 01-11-2025 Urinary bladder training [facility] Start: 01-11-2025 Referral to service [facility] Start: 01-11-2025 Admission procedure [facility] Start: 01-11-2025 Measuring intake and output [facility] Start: 01-11-2025 Patient referral to dietitian [facility] Start: 01-11-2025 Referral to occupati onal therapist [facility] Start: 01-11-2025 Vital signs measurements [facility] Start: 01-11-2025 [facility] Start: 01-10-2025 [facility] Start: 01-23-2023 Patient discharge [facility] Start: 01-23-2023 [facility] Start: 01-22-2023 [facility] Start: 01-22-2023 Inhalation therapy procedure [facility] Start: 01-21-2023 Following clinical p athway protocol [facility] Start: 01-21-2023 Assessment of risk o f venous thromboembolism [facility] Start: 01-21-2023 Insertion of cathete r into peripheral vein [facility] Start: 01-21-2023 Providing care accor ding to standard [facility] Start: 01-21-2023 Provision of activity privileges [facility] Start: 01-21-2023 Referral to occupati onal therapist [facility] Start: 01-21-2023 Referral to service [facility] Start: 01-21-2023 Respiratory secretion precautions [facility] Start: 01-21-2023 [facility] Start: 01-21-2023 Admission procedure [facility] Start: 01-21-2023 Patient referral to dietitian [facility] Start: 11-08-2021 Development of care plan [facility] Work Phone: Start: 11-06-2021 Referral to service [facility] Work Phone: Start: 11-06-2021 Patient discharge [facility] Work Phone: Start: 10-31-2021 Speech therapy management [facility] Work Phone: Start: 10-30-2021 Speech therapy assessment [facility] Work Phone: Start: 10-29-2021 Developing a treatment plan [facility] Work Phone: Start: 10-29-2021 Development of care plan [facility] Work Phone: Start: 10-28-2021 Following clinical p athway protocol [facility] Work Phone: Start: 10-28-2021 Admission procedure [facility] Work Phone: Start: 10-28-2021 Measuring intake and output [facility] Work Phone: Start: 10-28-2021 Patient referral to dietitian [facility] Work Phone: Start: 10-28-2021 Referral to occupati onal therapist [facility] Work Phone: Start: 10-28-2021 Referral to service [facility] Work Phone: Start: 10-28-2021 Vital signs measurements [facility] Work Phone: Start: 10-28-2021 [facility] Work Phone: Start: 10-28-2021 Patient discharge [facility] Work Phone: Start: 10-28-2021 Patient referral to dietitian [facility] Work Phone: Start: 10-27-2021 Following clinical p athway protocol [facility] Work Phone: Start: 10-27-2021 Oxygen therapy [facility] Work Phone: Start: 10-27-2021 Admission procedure [facility] Work Phone: Start: 10-27-2021 Ambulation without limitation [facility] Work Phone: Start: 10-27-2021 Assessment of risk o f venous thromboembolism [facility] Work Phone: Start: 10-27-2021 Insertion of cathete r into peripheral vein [facility] Work Phone: Start: 10-27-2021 Providing care accor ding to standard [facility] Work Phone: Start: 10-27-2021 Referral to occupati onal therapist [facility] Work Phone: Start: 10-27-2021 Referral to service [facility] Work Phone: Start: 10-27-2021 [facility] Work Phone: Start: 10-27-2021 [facility] Work Phone: Start: 10-27-2021 Inhalation therapy procedure [facility] Work Phone: NM Heart Views W str ess and W radionuclide IV [facility] Patient Education [facility] Work Phone: Patient referral [facility] Work Phone: [facility] Immunizations Immunization Date Immunization Notes Care Provider Fa cility 11-03-2021 Covid (Pfizer) Dr. Kaiser Pan Work Phone: [facility] 04-15-2021 Covid (Pfizer) Dr. Kaiser Pan Work Phone: [facility] 04-15-2021 Influenza, high dose seasonal Dr. Kaiser Pan MD Work Phone: [facility] 04-15-2021 influenza, high dose seasonal, preservative-free Dr. Kaiser Pan Work Phone: [facility] 09-18-2020 Covid (Pfizer) Dr. Kaiser Pan Work Phone: [facility] 08-28-2020 Covid (Pfizer) Dr. Kaiser Pan Work Phone: [facility] 05-11-2019 tetanus toxoid, redu josie diphtheria toxoid, and acellular pertussis vaccine, adsorbed Dr. Kaiser Pan Work Phone: [facility] 03-27-[address] Kaiser Pan Work Phone: [facility] 04-11-[address] Kaiser Pan Work Phone: [facility] 04-20-2013 pneumococcal conjuga te vaccine, [address] Kaiser Pan Work Phone: [facility] Payers Date Payer Category Payer Self-pay [id number] 2005 Private Health Insurance [id number] 2002 Medicare [id number] Unknown [id number] 2.16.8 [id number] Unknown [id number] 2.16.8 [id number] Unknown [id number] 2.16.8 [id number] Unknown [id number] 2.16.8 [id number] Unknown [id number] 2.16.8 [id number] Unknown [id number] 2.16.8 [id number] Unknown [id number] 2.16.8 [id number] Unknown [id number] 2.16.8 [id number] Unknown [id number] 2.16.8 [id number] Unknown [id number] 2.16.8 [id number] Unknown [id number] 2.16.8 [id number] Unknown [id number] 2.16.8 [id number] Unknown [id number] 2.16.8 [id number] Unknown [id number] 2.16.8 [id number] Unknown [id number] 2.16.8 [id number] Unknown [id number] 2.16.8 [id number] Unknown [id number] 2.16.8 [id number] Unknown [id number] 2.16.8 [id number] Unknown [id number] 2.16.8 [id number] Unknown [id number] 2.16.8 [id number] Social History Date Type Detail Facility Start: 10-27-2021 End: 07-13-2023 Tobacco smoking status NHIS Unknown if ever smoked [facility] Start: 05-15-2019 None [facility] Start: 05-15-2019 Alone [facility] Start: 05-15-2019 Non-smoker [facility] Start: 1935 Sex Assigned At Male [facility] Start: 01-10-2025 End: 01-11-2025 Tobacco smoking status NHIS Never smoked tobacco (finding) [facility] Medical Equipment Procedure Code Equipment Code Equipment Origin al Text Equipment Identifier Dates VINEETCEMENT 6191-1-010 FDA Start: 02-06-2018 VINEETCEMENT 6191-1-010 FDA Start: 02-06-2018 TRIATHLON POST S TAB FEM COMP FDA Start: 02-06-2018 TRIATHLON X3 PATELLA FDA Star t: 02-06-2018 TRIATHLON X3 TIB IAL INSERT-PS FDA Start: 02-06-2018 TRIATLHON PRIM T IB BASEPLATE FDA Start: 02-06-2018 DOUGH,CEMENT 6191-1-010 FDA Start: 02-06-2018 DOUGH,CEMENT 6191-1-010 FDA Start: 02-06-2018 TRIATHLON POST S TAB FEM COMP FDA Start: 02-06-2018 TRIATHLON X3 PATELLA FDA Star t: 02-06-2018 TRIATHLON X3 TIB IAL INSERT-PS FDA Start: 02-06-2018 TRIATLHON PRIM T IB BASEPLATE FDA Start: 02-06-2018 DOUGH,CEMENT 6191-1-010 FDA Start: 02-06-2018 DOUGH,CEMENT 6191-1-010 FDA Start: 02-06-2018 TRIATHLON POST S TAB FEM COMP FDA Start: 02-06-2018 TRIATHLON X3 PATELLA FDA Star t: 02-06-2018 TRIATHLON X3 TIB IAL INSERT-PS FDA Start: 02-06-2018 TRIATLHON PRIM T IB BASEPLATE FDA Start: 02-06-2018 DOUGH,CEMENT 6191-1-010 FDA Start: 02-06-2018 DOUGH,CEMENT 6191-1-010 FDA Start: 02-06-2018 TRIATHLON POST S TAB FEM COMP FDA Start: 02-06-2018 TRIATHLON X3 PATELLA FDA Star t: 02-06-2018 TRIATHLON X3 TIB IAL INSERT-PS FDA Start: 02-06-2018 TRIATLHON PRIM T IB BASEPLATE FDA Start: 02-06-2018 DOUGH,CEMENT 6191-1-010 FDA Start: 02-06-2018 DOUGH,CEMENT 6191-1-010 FDA Start: 02-06-2018 TRIATHLON POST S TAB FEM COMP FDA Start: 02-06-2018 TRIATHLON X3 PATELLA FDA Star t: 02-06-2018 TRIATHLON X3 TIB IAL INSERT-PS FDA Start: 02-06-2018 TRIATLHON PRIM T IB BASEPLATE FDA Start: 02-06-2018 DOUGH,CEMENT 6191-1-010 FDA Start: 02-06-2018 DOUGH,CEMENT 6191-1-010 FDA Start: 02-06-2018 TRIATHLON POST S TAB FEM COMP FDA Start: 02-06-2018 TRIATHLON X3 PATELLA FDA Star t: 02-06-2018 TRIATHLON X3 TIB IAL INSERT-PS FDA Start: 02-06-2018 TRIATLHON PRIM T IB BASEPLATE FDA Start: 02-06-2018 DOUGH,CEMENT 6191-1-010 FDA Start: 02-06-2018 DOUGH,CEMENT 6191-1-010 FDA Start: 02-06-2018 TRIATHLON POST S TAB FEM COMP FDA Start: 02-06-2018 TRIATHLON X3 PATELLA FDA Star t: 02-06-2018 TRIATHLON X3 TIB IAL INSERT-PS FDA Start: 02-06-2018 TRIATLHON PRIM T IB BASEPLATE FDA Start: 02-06-2018 DOUGH,CEMENT 6191-1-010 FDA Start: 02-06-2018 DOUGH,CEMENT 6191-1-010 FDA Start: 02-06-2018 TRIATHLON POST S TAB FEM COMP FDA Start: 02-06-2018 TRIATHLON X3 PATELLA FDA Star t: 02-06-2018 TRIATHLON X3 TIB IAL INSERT-PS FDA Start: 02-06-2018 TRIATLHON PRIM T IB BASEPLATE FDA Start: 02-06-2018 DOUGH,CEMENT 6191-1-010 FDA Start: 02-06-2018 DOUGH,CEMENT 6191-1-010 FDA Start: 02-06-2018 TRIATHLON POST S TAB FEM COMP FDA Start: 02-06-2018 TRIATHLON X3 PATELLA FDA Star t: 02-06-2018 TRIATHLON X3 TIB IAL INSERT-PS FDA Start: 02-06-2018 TRIATLHON PRIM T IB BASEPLATE FDA Start: 02-06-2018 DOUGH,CEMENT 6191-1-010 FDA Start: 02-06-2018 DOUGH,CEMENT 6191-1-010 FDA Start: 02-06-2018 TRIATHLON POST S TAB FEM COMP FDA Start: 02-06-2018 TRIATHLON X3 PATELLA FDA Star t: 02-06-2018 TRIATHLON X3 TIB IAL INSERT-PS FDA Start: 02-06-2018 TRIATLHON PRIM T IB BASEPLATE FDA Start: 02-06-2018 DOUGH,CEMENT 6191-1-010 FDA Start: 02-06-2018 DOUGH,CEMENT 6191-1-010 FDA Start: 02-06-2018 TRIATHLON POST S TAB FEM COMP FDA Start: 02-06-2018 TRIATHLON X3 PATELLA FDA Star t: 02-06-2018 TRIATHLON X3 TIB IAL INSERT-PS FDA Start: 02-06-2018 TRIATLHON PRIM T IB BASEPLATE FDA Start: 02-06-2018 DOUGH,CEMENT 6191-1-010 FDA Start: 02-06-2018 DOUGH,CEMENT 6191-1-010 FDA Start: 02-06-2018 TRIATHLON POST S TAB FEM COMP FDA Start: 02-06-2018 TRIATHLON X3 PATELLA FDA Star t: 02-06-2018 TRIATHLON X3 TIB IAL INSERT-PS FDA Start: 02-06-2018 TRIATLHON PRIM T IB BASEPLATE FDA Start: 02-06-2018 DOUGH,CEMENT 6191-1-010 FDA Start: 02-06-2018 DOUGH,CEMENT 6191-1-010 FDA Start: 02-06-2018 TRIATHLON POST S TAB FEM COMP FDA Start: 02-06-2018 TRIATHLON X3 PATELLA FDA Star t: 02-06-2018 TRIATHLON X3 TIB IAL INSERT-PS FDA Start: 02-06-2018 TRIATLHON PRIM T IB BASEPLATE FDA Start: 02-06-2018 DOUGH,CEMENT 6191-1-010 FDA Start: 02-06-2018 DOUGH,CEMENT 6191-1-010 FDA Start: 02-06-2018 TRIATHLON POST S TAB FEM COMP FDA Start: 02-06-2018 TRIATHLON X3 PATELLA FDA Star t: 02-06-2018 TRIATHLON X3 TIB IAL INSERT-PS FDA Start: 02-06-2018 TRIATLHON PRIM T IB BASEPLATE FDA Start: 02-06-2018 DOUGH,CEMENT 6191-1-010 FDA Start: 02-06-2018 DOUGH,CEMENT 6191-1-010 FDA Start: 02-06-2018 TRIATHLON POST S TAB FEM COMP FDA Start: 02-06-2018 TRIATHLON X3 PATELLA FDA Star t: 02-06-2018 TRIATHLON X3 TIB IAL INSERT-PS FDA Start: 02-06-2018 TRIATLHON PRIM T IB BASEPLATE FDA Start: 02-06-2018 DOUGH,CEMENT 6191-1-010 FDA Start: 02-06-2018 DOUGH,CEMENT 6191-1-010 FDA Start: 02-06-2018 TRIATHLON POST S TAB FEM COMP FDA Start: 02-06-2018 TRIATHLON X3 PATELLA FDA Star t: 02-06-2018 TRIATHLON X3 TIB IAL INSERT-PS FDA Start: 02-06-2018 TRIATLHON PRIM T IB BASEPLATE FDA Start: 02-06-2018 DOUGH,CEMENT 6191-1-010 FDA Start: 02-06-2018 DOUGH,CEMENT 6191-1-010 FDA Start: 02-06-2018 TRIATHLON POST S TAB FEM COMP FDA Start: 02-06-2018 TRIATHLON X3 PATELLA FDA Star t: 02-06-2018 TRIATHLON X3 TIB IAL INSERT-PS FDA Start: 02-06-2018 TRIATLHON PRIM T IB BASEPLATE FDA Start: 02-06-2018 ANOTINETTEH,CEMENT 6191-1-010 FDA Start: 02-06-2018 DOUGH,CEMENT 6191-1-010 FDA Start: 02-06-2018 TRIATHLON POST S TAB FEM COMP FDA Start: 02-06-2018 TRIATHLON X3 PATELLA FDA Star t: 02-06-2018 TRIATHLON X3 TIB IAL INSERT-PS FDA Start: 02-06-2018 TRIATLHON PRIM T IB BASEPLATE FDA Start: 02-06-2018 Goals Date Patient Goal Desired Activity /State Functional Status Date Assessment Result Facility 01-26-2025 Functional status Activity Abili ty With Assist of 1 [facility] Work Phone: 01-22-2025 Functional status Bathroom Privilege [facility] Work Phone: 01-23-2023 Functional status Ambulates [facility] Work Phone: 11-06-2021 Functional status Activity Abili ty With Assist of 1 [facility] Work Phone: 10-30-2021 Functional status Patient Activity Chair [facility] Work Phone: 10-28-2021 Functional status Ambulates [facility] Work Phone: 10-27-2021 Functional status Ambulates;Bedrest [facility] Work Phone: Mental Status Date Assessment Result Facility 01-26-2025 Cognitive function Voice/Name [facility] Work Phone: 01-23-2023 Cognitive function Voice/Name [facility] Work Phone: 11-06-2021 Cognitive function Voice/Name [facility] Work Phone: 11-04-2021 Cognitive function Appropriate;Cooperativ e [facility] Work Phone: 10-28-2021 Cognitive function Voice/Name [facility] Work Phone: 10-27-2021 Cognitive function Voice/Name [facility] Work Phone: Clinical Notes 01-21-2023 to 01-26-2025 Note Date & Type Note Facility 01-26-2025 Hospital Discharg e instructions Additional Instructions Date of Discharge: 01/26/25 [facility] Work Phone: 01-25-2025 Discharge summary Note Date/Time January 25, 2025 2:50pm [facility] Medical Records Department [address] [place] [address] Discharge Summary 01/25/25 0830 MR#: [id number] Acct: [id number] Name: BENJIE MILES Rep #:[id number] : 1935 89 From: Anahi Bird WILTON WEAVER-C PCP: Dr. Kaiser Pan MD Status:ADM I N Location: [place] [address] Providers Date of Admission: 01/11/25 Date of Discharge: 01/26/25 Primary Care Physician: Dr. Kaiser Pan MD Consultations 01/11/25 12:10 Consult: Onc/Wound/credit portfolio advisor Routine Comment: Comments:: Left inner buttock pressure injury 01/14/25 14:26 Consult: Pain Management Routine Consulting Provider: Kolby Mantilla Reason for Consult: rib pain due to fractures. EMERGENT Consult: No MD Notified: Yes Date Notified: 01/14/25 Time Notified: 14:26 Method of Notification: Text Reason For Visit: RIGHT RIB FRACTURES Diagnosis Discharge Diagnosis (1) Physical debility: Status: Acute Code(s): R53.81 - Other malaise Plan: Due to fall resulting in multiple rib fractures. Had intercostal blocks done by Dr. Mantilla for pain control on 01/16/25 that were successful in pain management. Pt doesw have Oxycodone and Tizanidine available PRN. COntinue Celebres 200mg PO daily and Tylenol 1 gm Q8 hours. (2) Fall: Status: Inactive Code(s): W19.XXXA - Unspecified fall, initial encounter Qualifiers: Encounter type: subsequent encounter Qualified Code(s): W19.XXXD - Unspecified fall, subsequent encounter Plan: Fall precautions PT-OT eval and treat (3) Multiple rib fractures: Status: Acute Code(s): S22.49XA - Multiple fractures of ribs, unspecified side, initial encounter for closed fracture Qualifiers: Encounter type: subsequent encounter Fracture type: closed Laterality:bilateral Qualified Code(s): S22.43XD - Multiple fractures of ribs, bilateral, subsequent encounter for fracture with routine healing Plan: incentive spirometry 10 x per hour while awake splinting with back blanket vital signs Q shift (4) Uncontrolled pain: Status: Resolved Code(s): R52 - Pain, unspecified Plan: Now controlled following rib blocks done on 01/18/25 acetaminophen 1,000mg PO q 8 hours IRENA Celebrex IRENA daily [place] 5/325mg PO PRN breakthrough pain q 8 hours Alcuzdeleg6qi PO PRN muscle spasms (5) Chronic renal failure, stage 3a: Status: Chronic Code(s): N18.31 - Chronic kidney disease, stage 3a Plan: continue to monitor (6) Chronic constipation: Status: Chronic Code(s): K59.09 - Other constipation Plan: This has been a chronic problem for the patient and he has not taken any stool softners prior to arrival to the unit. He did take laxative frequently. He doeshave chronically poor fluid/water intake and he is on a diuretic for ankle edema. Ankle edema is most likely due to the pateints inactive lifestyle and venous insufficiency, spending time in a chair with legs down. Lasix has been held during admission in inpatient rehab. Extensive education provided and YUNIER hose have been implemented. Education on wearing compression hose and leg elevation. Instructions by Dr. Baum to utilize Lasix ONLY if his weight increases by 5 pounds or greater in a week. (7) (HFpEF) heart failure with preserved ejection fraction: Status: Chronic Code(s): I50.30 - Unspecified diastolic (congestive) heart failure Qualifiers: Heart failure chronicity: chronic Qualified Code(s): I50.32 - Chronic diastolic (congestive) heart failure Plan: follow up as needed (8) Pulmonary hypertension: Status: Chronic Code(s): I27.20 - Pulmonary hypertension, unspecified Plan: per Dr. Baum notes: Systolic pressure estimated at 45 on the ECHO in 2023. During admission he did have a trending overnight pulse ox which showed that 2.29% of the time, his pulse ox ranged from 85-89% which was approximately 13minutes and 40 seconds. There were no desaturation events greater than 60 seconds. STOP BANG score is 6 fir age >50, HTN , male sex, neckcircunference >40cm, Daytime somnolence and BMI >35. He lives alone and does not know if he stops breathing at night or if he snores. Consider sleep study going forward to evaluate for PARDEEP of Pulmonary HTN (9) AF (paroxysmal atrial fibrillation): Status: Chronic Code(s): I48.0 - Paroxysmal atrial fibrillation (10) Aortic valve stenosis, nonrheumatic: Status: Chronic Code(s): I35.0 - Nonrheumatic aortic (valve) stenosis Plan: moderate on ECHO in December 2023 (11) Venous insufficiency (chronic) (peripheral): Status: Chronic Code(s): I87.2 - Venous insufficiency (chronic) (peripheral) Plan: controlled with YUNIER hose. Holding Lasix due to dehydration and poor oral intakedispite encouragement of staff. Suspected lower extremity edema related to sedintary lifestyle and sitting a majority of the day causing dependant edema to the ankles He has not had edema during his stay while he has been wearing TEDhose and elevation of legs during sitting times. (Lasic on hold) Weight has beenstable during admission. (12) Heme positive stool: Status: Acute Code(s): R19.5 - Other fecal abnormalities Plan: HBG is stable. Pt is on Protonix. (13) Thrombocytopenia: Status: Chronic Code(s): D69.6 - Thrombocytopenia, unspecified Plan: Unknown Etiology. Pt has been stable the for a couple of years following chart review and PLT are > 100,000 Recommend OP followup . (14) Essential hypertension: Status: Chronic Code(s): I10 - Essential (primary) hypertension Plan: initiated Lisinopril 2.5mg PO q day. (15) Urine retention: Status: Acute Code(s): R33.9 - Retention of urine, unspecified Plan: Possibly related to Narcotics and Tizanidine. These are now PRN. bladder scan q 8 hours if no urine produced. straight cath for > 300ml Flowmax 0.4mg PO q day Flowmax 0.4mg PO bid x 1 day on 01/24/25 insert indwelling urinary cath for required straight cat of 3 or greater times. consider urinary consult if indwelling cath is re-inserted. (16) UTI (urinary tract infection): Status: Acute Code(s): N39.0 - Urinary tract infection, site not specified Qualifiers: Urinary tract infection type: urethritis Qualified Code(s): N34.2 - Other urethritis Plan: Kelfex 500mg PO q 8 hours x 10 days Plan PLAN Summary: 1. Pt will be transferred to TCU on 01/26/25 for continued PT/OT, before returning home with son. 2.per Dr. Baum: Continue to hold Lasix . May continue after DC on a PRN basis if he has an increase in weight >5 pounds within a week. He is aware that his ankle edema is currently being controlled with YUNIER hose and elevation, Education about signs of dehydration and that he has not experienced those during his stay. These include dizziness and fatigue. 3. Consider OP sleep study for PARDEEP. STOP BAND is a least 6 out of possible 8 and he has pulmonary HTN and AF. 4. Continue with Keflex for UTI. culture and sensitivity are pending. 5. Increased Flomax to 0.4mg PO bid for urinary retention. Medications at Discharge Home Medications tamsulosin 0.4 mg capsule 0.4 mg PO DAILY URINE FLOW 03/06/16 aspirin 81 mg tablet,delayed release (Marisela Low Dose Aspirin) 81 mg PO DAILY [facility] 07/04/18 omeprazole 40 mg capsule,delayed release 40 mg PO DAILY acid reflux 07/04/18 potassium chloride 20 mEq tablet,extended release 20 meq PO DAILY supplement 07/04/18 Held on 01/23/25. Instructions: He is no longer taking Lasix. Resume if he takes Lasix multivitamin 1 tab PO DAILY supplement 04/15/22 nitroglycerin 0.4 mg sublingual tablet 0.4 mg sublingual Q5-15M PRN Chest Pain #25 tabs 07/17/24 ranolazine 1,000 mg tablet,extended release,12 hr 1,000 mg PO Q12H Heart 07/17/24 latanoprost 0.005 % eye drops 1 drp ophthalmic (eye) Q eye health 01/11/25 Petrolatum 33% [Eucerin Eqivalent] 1 applic topical QHS #1 applic 01/23/25 acetaminophen 500 mg tablet 1,000 mg (2 x 500 mg) PO Q8 #1 TAB 01/23/25 bisacodyl 10 mg rectal suppository 10 mg FL X1 PRN Constipation #1 ea 01/23/25 celecoxib 200 mg capsule 200 mg PO DAILY #1 cap 01/23/25 enoxaparin 40 mg/0.4 mL subcutaneous syringe 40 mg (0.4 mL) subcut DAILY@0600 #1mL 01/23/25 hydrocortisone acetate 25 mg rectal suppository 25 mg FL BID PRN PRN Hemorrhoids#1 ea 01/23/25 lisinopril 2.5 mg tablet 2.5 mg PO DAILY #1 TAB 01/23/25 magnesium hydroxide 400 mg/5 mL oral suspension 30 ml PO X1 PRN Constipation #1 mL 01/23/25 menthol 0.44 %-zinc oxide 20.6 % topical ointment (Calmoseptine) 1 applic topical BID #1 g 01/23/25 nystatin 100,000 unit/gram topical powder 1 applic topical 0600,2200 #1 g 01/23/25 oxycodone 5 mg tablet 5 mg PO Q6H PRN pain 1 day #1 TAB 01/23/25 saliva substitute combo no.9 (Biotene Dry Mouth Oral Rinse mouthwash) 15 ml mucous membrane 5X/DAY PRN Dry Mouth #1 mL 01/23/25 sennosides 8.6 mg-docusate sodium 50 mg tablet (Stimulant Laxative Plus) 2 tab PO BID #1 TAB 01/23/25 cephalexin 500 mg capsule 500 mg PO Q12 8 days #16 caps 01/24/25 Physical Exam Const oriented x3 and no apparent distress Orientation / Consciousness: awake, oriented to person, oriented to place and oriented to time HEENT normocephalic Eyes PERRL, EOMs intact bilaterally, conjunctivae normal, no scleral icterus, no papilledema, normal visual blount by confrontation and fundi normal bilaterally Chest inspection of chest normal, palpation of chest normal, inspection of breasts normal and palpation of breasts normal Resp normal respiratory effort, normal air movement, no retractions, no use of accessory muscles, clear to auscultation bilaterally and percussion normal Cardio Cardio Narrative: intermittent A-fib Peripheral Pulses: pulses 2+ throughout GI normal to inspection, nondistended, normoactive bowel sounds, soft to palpation,non-tender, non-distended, no masses and no bruits GI Narrative: obesity Palpation: soft Narrative: urninary retention Bladder / Kidney Exam: other Back/Spine no CVA tenderness Extremity normal to inspection Peripheral Pulses: Yes pulses 2+ throughout Skin General Skin Exam: no breakdown Neuro oriented x3 Sensorium / Orientation: awake, alert, oriented to person, oriented to place andoriented to time Psych mental status grossly normal Medical Records Data Homelessness:: Sheltered Weight / BMI Weight Weight: 248 lb 14.43 oz Body Mass Index (BMI) 36.7 ABG / Lab / Microbiology Data 01/22/25 05:02 01/22/25 05:02 Laboratory: Laboratory Results - last 24 hr 01/24/25 13:10: Urine Color Yellow, Urine Clarity Sl. Cloudy, Urine pH 9.0, Ur Specific [place] 1.015, Urine Protein 15 H, Urine Glucose (UA) Normal, Urine Ketones Negative, Urine Occult Blood 25 H, Urine Nitrite Positive H, Urine Bilirubin Negative, Urine Urobilinogen Normal, Ur Leukocyte Esterase 25 H, UrineRBC 0 SEEN, Urine WBC 0 SEEN, Ur Squamous Epith Cells 0 SEEN, Urine Bacteria 1+,Urine Mucus Not Reportable Microbiology: Microbiology 01/24/25 13:10 Urine Catheter - Don Urine Culture - Preliminary Gram negative jared 01/12/25 08:40 Stool Stool Occult Blood (REUBEN) - Final Occult Blood Positive D/C Instructions Discharge Activity: - (SEE PT/OT recommendations ) DC O2, CPAP, BIPAP Needs Home O2 Discharge instructions: No DC home with Oxygen: No Please Follow Up With: Paulino Jose WILTON WEAVER, [facility] [employer] Meaningful Use Info Meaningful Use Meaningful Use Diagnoses (Choose all that apply): None applicable Discharge Plan Admission Admit Date/Time: 01/11/25 10:30 Primary Reason for Your Visit: DEBILITY DUE TO MULTIPLE RIB FRACTURES/INTRACTABLE PAIN Attending Provider: Mallory Baum Primary Care Provider: Kaiser Pan Chi Consulting Providers: Kolby Mantilla Discharge Orders/Prescriptions Prescriptions: New celecoxib 200 mg Capsule 200 mg PO DAILY Qty: 1 0RF acetaminophen 500 mg Tablet 1,000 mg PO Q8 Qty: 1 0RF hydrocortisone acetate 25 mg Suppository 25 mg FL BID PRN PRN (Reason: Hemorrhoids) Qty: 1 0RF magnesium hydroxide 400 mg/5 mL Suspension 30 ml PO X1 PRN (Reason: Constipation) Qty: 1 0RF bisacodyl 10 mg Suppository 10 mg FL X1 PRN (Reason: Constipation) Qty: 1 0RF nystatin 100,000 unit/gram Powder 1 applic topical 0600,2200 Qty: 1 0RF Protocol: *Topical Application Instructions APPLICATION INSTRUCTIONS: groin lisinopril 2.5 mg Tablet 2.5 mg PO DAILY Qty: 1 0RF enoxaparin 40 mg/0.4 mL Syringe 40 mg subcut DAILY@0600 Qty: 1 0RF menthol-zinc oxide [Calmoseptine] 0.44-20.6 % Ointment 1 applic topical BID Qty: 1 0RF Protocol: *Topical Application Instructions APPLICATION INSTRUCTIONS: Apply to buttock Petrolatum 33% [Eucerin Eqivalent] 1 applic topical QHS Qty: 1 0RF Rx Instructions: APPLY FROM THE KNEES TO THE BASE OF THE TOES AT HS sennosides-docusate sodium [Stimulant Laxative Plus] 8.6-50 mg Tablet 2 tab PO BID Qty: 1 0RF Biotene Dry Mouth Oral Rinse Mouthwash 15 ml mucous membrane 5X/DAY PRN (Reason: Dry Mouth) Qty: 1 0RF oxycodone 5 mg tablet 5 mg PO Q6H PRN (Reason: pain) 1 Days Qty: 1 0RF cephalexin 500 mg Capsule 500 mg PO Q12 8 Days Qty: 16 0RF Continued aspirin [Marisela Low Dose Aspirin] 81 mg tablet,delayed release (DR/EC) 81 mg PO DAILY omeprazole 40 mg capsule,delayed release(DR/EC) 40 mg PO DAILY multivitamin Tablet 1 tab PO DAILY ranolazine 1,000 mg tablet extended release 12 hr 1,000 mg PO Q12H nitroglycerin 0.4 mg tablet, sublingual 0.4 mg SUBLINGUAL Q5-15M PRN (Reason: Chest Pain) Qty: 25 3RF tamsulosin 0.4 MG capsule 0.4 mg PO DAILY Patient Comments: now taking BID latanoprost 0.005 % drops 1 drp ophthalmic (eye) QHS Held potassium chloride 20 mEq tablet extended release 20 meq PO DAILY Hold Instructions: He is no longer taking Lasix. Resume if he takes Lasix Discontinued hydrocodone-acetaminophen 5-325 mg tablet 1 tab PO Q6H PRN PRN (Reason: Pain) 3 Days Qty: 10 0RF furosemide 40 mg tablet 40 mg PO DAILY Referrals / Follow Up: Kolby Mantilla MD [Med Staff - Active Staff] - 02/20/25 10:15 am Dominik Bailey MD [Med Staff - Active Staff] - Kaiser Pan Chi, MD [Primary Care Provider] - Disposition Disposition (needs filled in before D/C Order can be placed): Care Home Facility 01/25/25 1429 <Electronically signed by Anahi RAHMAN> Cosigner Signature (if applicable): 01/25/25 1450 <Electronically signed by TaiC. Maxim HERNANDEZ> CC: JOSIAH Flynn; Dr. Kaiser Pan MD~ Signed [facility] Work Phone: [phone]) 560-298208-01-2025 Discharge summary Author Anahi [facility] Note Date/Time January 25, 2025 2:5 0pm [facility] Medical Records Department [address] [place] [address] Transfer to [facility] Care MR#: [id number] Acct: [id number] Name: BENJIE MILES Rep #:[id number] 1 : 1935 89 From: Anahi RAHMAN PCP: Dr. Kaiser Pan MD Status:ADM I N Certification of patient admission REQUIRED AT TIME OF ADMISSION. I CERTIFY THAT POST-HOSPITAL ECF SERVICES ARE REQUIRED TO BE GIVEN ON AN IN-PATIENT BASIS BECAUSE OF THE ABOVE NAMED PATIENT'S NEED FOR [facility] CARE ON A CONTINUING BASIS FOR THE CONDITION(S) FOR WHICH HE/SHE WAS RECEIVING IN-PATIENT HOSPITAL SERVICES PRIOR TO HIS/HER TRANSFER TO THE F. 01/25/25 1438<Electronically signed by Anahi RAHMAN> Diet Diet Order/Speech Therapy: INPATIENT Hospital Diet / Speech Therapy Order(s) 01/11/25 10:36 Diet: Regular - General Food consistency:: Regular Liquid Consistency:: Regular/Thin Type of Dietary Supplement:: Ensure Plus High Protein Diet Comments: 120ml chocolate EPHP with breakfast and dinner Routine Orders/Code Status Enema Type: Fleetz Enema Frequency: Daily PRN Suppository Type: Dulcolax 10mg Suppository Frequency: Daily PRN Code Status: Full Code DC O2, CPAP, BIPAP needs Home O2 Discharge instructions: No Wound(s) Right elbow: Wound Type: scab Left inner buttock: Wound Type: Pressure Injury MID BACK: Wound Type: Surgical Incision Therapies Physical Therapy: Eval and Treat Occupational Therapy: Eval and Treat Narrative: Wound(s) Right elbow: Wound Type: scab Left inner buttock: Wound Type: Pressure Injury MID BACK: Wound Type: Surgical Incision Therapies Weight Bearing: Full weight bearing Physical Therapy: Eval and Treat Occupational Therapy: Eval and Treat Problem/Diagnosis (1) Physical debility: Status: Acute Code(s): R53.81 - Other malaise Plan: Due to a fall resulting in multiple rib fractures. Had intercoastal blocks doneby Dr. Mantilla for pain control on 01/16/25 that were very effective. Oxycodone and tizanidine are now PRN only. Will continue celebrex 200 mg daily and Tylenol 1 GM Q 8H. (2) Fall: Status: Inactive Code(s): W19.XXXA - Unspecified fall, initial encounter (3) Multiple rib fractures: Status: Acute Code(s): S22.49XA - Multiple fractures of ribs, unspecified side, initial encounter for closed fracture Plan: Ribs 8, 9 and 10 on the right and the left 10th rib. (4) Uncontrolled pain: Status: Resolved Code(s): R52 - Pain, unspecified Plan: 01/23/25 Pain is well controlled. the rib blocks were very effective in gettingthe pain under control. Oxycodone during the day was made PRN 2 days ago and hehas not asked for it. He has been getting 5 mg at HS but, that was changed to PRN today. Fizanidine 2 mg BID has also changed to PRN. Continue scheduled Tylenol and Celebrex. continue the PRN Oxycodone 5 mg. (5) Chronic renal failure, stage 3a: Status: Chronic Code(s): N18.31 - Chronic kidney disease, stage 3a (6) Chronic constipation: Status: Chronic Code(s): K59.09 - Other constipation Plan: This has been a chronic problem. He was not taking any stool softeners at home but, was taking laxatives frequently. His fluid intake is chronically poor and he is on a diuretic for ankle edema which is more likely than not due to venous insufficiency related to obesity and sedentary lifestyle. He also has pulmonaryHTN. He sits in a recliner most of the day and does not elevate his legs. Lasixwas held on rehab and the edema is controlled with YUNIER hose. We have educated him on the importance of elevating his legs and wearing the compression stockings......he has these at home and his son is always encouraging him to wear them. I recommeded he take Lasix ONLY if his wt increases by 5 lbs or greater in a week. (7) (HFpEF) heart failure with preserved ejection fraction: Status: Chronic Code(s): I50.30 - Unspecified diastolic (congestive) heart failure (8) Pulmonary hypertension: Status: Chronic Code(s): I27.20 - Pulmonary hypertension, unspecified Plan: Systolic pressure estimated at 45 on echocardiogram in December 2023. He had an overnight trending pulse ox while on acute rehab and it showed that 2.29% of the time he is pulse ox ranged from 85 to 89%. This amounted to 13 minutes and 40 seconds. There were no desaturation events greater than 60 seconds. STOP BANG score is 6 for age>50, HTN, male sex, neck circumference > 40cm, daytime somnolence and BMI > 35. He lives alone and does not know if he stops breathingat night or if he snores. Would consider a sleep study going forward to evaluate him for PARDEEP as the etiology of Pulmonary HTN. (9) AF (paroxysmal atrial fibrillation): Status: Chronic Code(s): I48.0 - Paroxysmal atrial fibrillation (10) Aortic valve stenosis, nonrheumatic: Status: Chronic Code(s): I35.0 - Nonrheumatic aortic (valve) stenosis Plan: Moderate on echocardiogram in December 2023 (11) Venous insufficiency (chronic) (peripheral): Status: Chronic Code(s): I87.2 - Venous insufficiency (chronic) (peripheral) Plan: Controlled with YUNIER hose. Had to hold Lasix due to dehydration, poor fluid intake chronically. I suspect the LE edema is actually due to venous insufficiency/pulmonary HTN and not CHF. He sits most of the day with his legs dependent and there is no edema since he has been wearing the YUNIER hose (Lasix has been on hold). Wt is stable, despite all the carbs he consumes. (12) Heme positive stool: Status: Acute Code(s): R19.5 - Other fecal abnormalities Plan: HGB is stable. He is on {Protonix. Comment: HGB is WNL (13) Thrombocytopenia: Status: Chronic Code(s): D69.6 - Thrombocytopenia, unspecified Plan: Etiology? ITP? Can be evaluated as an OP. Etiology? Has been stable over the past couple years and PLT's are above 100,000. (14) Essential hypertension: Status: Chronic Code(s): I10 - Essential (primary) hypertension Plan: Started on Lisinopril 2.5 mg daily and BP looks better. No cough. (15) Urine retention: Status: Acute Code(s): R33.9 - Retention of urine, unspecified Plan: Suspect secondary to narcotics +/- Tizanidine. Comment: voiding trial scheduled for 01/24/25. Plan 1. Transfer to TCU on 01/26/25 for additional therapy prior to returning home with his son. 2. Continue to hold Lasix. He was supposed to be taking Lasix PRN at home but,was taking it daily. Will restart at DC and have him take it PRN for an increase in weight of 5 lbs within a week. We discussed today that his leg edema is controlled without Lasix now........with elevation and compression. When he is dehydrated he is more fatigued and also lightheaded........has not been lightheaded since the Lasix was discontinued. 3. Consider an OP sleep study. [facility] is at lease 6 out of possible 8 and he has pulmonary HTN and AF. Allergies/Procedures Done in Hospital Allergies tramadol (From [facility]) Adverse Reaction (Verified 01/10/25 10:15) Other DIZZINESS, WEAKNESS, LIGHT HEADEDNESS Procedures: - (Intercostal blocks on the right side by Dr. Mantilla on 01/16/2025 to control pain due to multiple rib fractures.) Type of Care/Length of Stay Estimated LOS: Convalescent Care Less Than 30 days Type of Care Needed: Skilled Rehab Potential: Good Prognosis: Good Additional Orders/Day of Discharge H&P will serve as current which was dated: 01/11/25 Day of Discharge: 01/26/25 Dietary and Speech Recommendations Dietitian Recommendations/Changes: Continue regular diet and 120ml EPHP with breakfast and dinner. Consult RD if changes occur in pt nutritional status. Follow Up Care Please follow up with your Primary Care Physician in: Following DC from TCU. Please Follow Up With: Paulino Jose WILTON WEAVER, WILTON WEAVER-C When: as previously instructed. Please Follow Up With: Kolby Mantilla MD When: PRN for uncontrolled pain. Discharge Plan Admission Admit Date/Time: 01/11/25 10:30 Primary Reason for Your Visit: DEBILITY DUE TO MULTIPLE RIB FRACTURES/INTRACTABLE PAIN Attending Provider: Mallory Baum Primary Care Provider: [facility] Consulting Providers: Kolby Mantilla Discharge Orders/Prescriptions Prescriptions: New celecoxib 200 mg Capsule 200 mg PO DAILY Qty: 1 0RF acetaminophen 500 mg Tablet 1,000 mg PO Q8 Qty: 1 0RF hydrocortisone acetate 25 mg Suppository 25 mg FL BID PRN PRN (Reason: Hemorrhoids) Qty: 1 0RF magnesium hydroxide 400 mg/5 mL Suspension 30 ml PO X1 PRN (Reason: Constipation) Qty: 1 0RF bisacodyl 10 mg Suppository 10 mg FL X1 PRN (Reason: Constipation) Qty: 1 0RF nystatin 100,000 unit/gram Powder 1 applic topical 0600,2200 Qty: 1 0RF Protocol: *Topical Application Instructions APPLICATION INSTRUCTIONS: groin lisinopril 2.5 mg Tablet 2.5 mg PO DAILY Qty: 1 0RF enoxaparin 40 mg/0.4 mL Syringe 40 mg subcut DAILY@0600 Qty: 1 0RF menthol-zinc oxide [Calmoseptine] 0.44-20.6 % Ointment 1 applic topical BID Qty: 1 0RF Protocol: *Topical Application Instructions APPLICATION INSTRUCTIONS: Apply to buttock Petrolatum 33% [Eucerin Eqivalent] 1 applic topical QHS Qty: 1 0RF Rx Instructions: APPLY FROM THE KNEES TO THE BASE OF THE TOES AT HS sennosides-docusate sodium [Stimulant Laxative Plus] 8.6-50 mg Tablet 2 tab PO BID Qty: 1 0RF Biotene Dry Mouth Oral Rinse Mouthwash 15 ml mucous membrane 5X/DAY PRN (Reason: Dry Mouth) Qty: 1 0RF oxycodone 5 mg tablet 5 mg PO Q6H PRN (Reason: pain) 1 Days Qty: 1 0RF Continued aspirin [Marisela Low Dose Aspirin] 81 mg tablet,delayed release (DR/EC) 81 mg PO DAILY omeprazole 40 mg capsule,delayed release(DR/EC) 40 mg PO DAILY multivitamin Tablet 1 tab PO DAILY ranolazine 1,000 mg tablet extended release 12 hr 1,000 mg PO Q12H nitroglycerin 0.4 mg tablet, sublingual 0.4 mg SUBLINGUAL Q5-15M PRN (Reason: Chest Pain) Qty: 25 3RF tamsulosin 0.4 MG capsule 0.4 mg PO DAILY latanoprost 0.005 % drops 1 drp ophthalmic (eye) QHS Held potassium chloride 20 mEq tablet extended release 20 meq PO DAILY Hold Instructions: He is no longer taking Lasix. Resume if he takes Lasix Discontinued hydrocodone-acetaminophen 5-325 mg tablet 1 tab PO Q6H PRN PRN (Reason: Pain) 3 Days Qty: 10 0RF furosemide 40 mg tablet 40 mg PO DAILY Referrals / Follow Up: Kolby Mantilla MD [Med Staff - Active Staff] - 02/20/25 10:15 am [facility], MD [Primary Care Provider] - Disposition Disposition (needs filled in before D/C Order can be placed): Care Home Facility (2) Fall Qualifiers: Encounter type: subsequent encounter Qualified Code(s): W19.XXXD - Unspecified fall, subsequent encounter (3) Multiple rib fractures Qualifiers: Encounter type: subsequent encounter Fracture type: closed Laterality: bilateral Qualified Code(s): S22.43XD - Multiple fractures of ribs, bilateral, subsequent encounter for fracture with routine healing (7) (HFpEF) heart failure with preserved ejection fraction Qualifiers: Heart failure chronicity: chronic Qualified Code(s): I50.32 - Chronic diastolic (congestive) heart failure Cosigner Signature (if applicable): CC: ~ Problem/Diagnosis (1) Physical debility: Status: Acute Code(s): R53.81 - Other malaise Plan: Due to fall resulting in multiple rib fractures. Had intercostal blocks done by Dr. Mantilla for pain control on 01/16/25 that were successful in pain management. Pt doesw have Oxycodone and Tizanidine available PRN. COntinue Celebres 200mg PO daily and Tylenol 1 gm Q8 hours. (2) Fall: Status: Inactive Code(s): W19.XXXA - Unspecified fall, initial encounter Plan: Fall precautions PT-OT eval and treat (3) Multiple rib fractures: Status: Acute Code(s): S22.49XA - Multiple fractures of ribs, unspecified side, initial encounter for closed fracture Plan: incentive spirometry 10 x per hour while awake splinting with back blanket vital signs Q shift (4) Uncontrolled pain: Status: Resolved Code(s): R52 - Pain, unspecified Plan: Now controlled following rib blocks done on 01/18/25 acetaminophen 1,000mg PO q 8 hours IRENA Celebrex IRENA daily [place] 5/325mg PO PRN breakthrough pain q 8 hours [id number] PO PRN muscle spasms (5) Chronic renal failure, stage 3a: Status: Chronic Code(s): N18.31 - Chronic kidney disease, stage 3a Plan: continue to monitor (6) Chronic constipation: Status: Chronic Code(s): K59.09 - Other constipation Plan: This has been a chronic problem for the patient and he has not taken any stool softners prior to arrival to the unit. He did take laxative frequently. He doeshave chronically poor fluid/water intake and he is on a diuretic for ankle edema. Ankle edema is most likely due to the pateints inactive lifestyle and venous insufficiency, spending time in a chair with legs down. Lasix has been heldduring admission in inpatient rehab. Extensive education provided and YUNIER hose have been implemented. Education on wearing compression hose and leg elevation. Instructions by Dr. Baum to utilize Lasix ONLY if his weight increases by 5 pounds or greater in a week. (7) (HFpEF) heart failure with preserved ejection fraction: Status: Chronic Code(s): I50.30 - Unspecified diastolic (congestive) heart failure Plan: follow up as needed (8) Pulmonary hypertension: Status: Chronic Code(s): I27.20 - Pulmonary hypertension, unspecified Plan: per Dr. Baum notes: Systolic pressure estimated at 45 on the ECHO in 2023. During admission he did have a trending overnight pulse ox which showed that 2.29% of the time, his pulse ox ranged from 85-89% which was approximately 13minutes and 40 seconds. There were no desaturation events greater than 60 seconds. STOP BANG score is 6 fir age >50, HTN , male sex, neckcircunference >40cm, Daytime somnolence and BMI >35. He lives alone and does not know if he stops breathing at night or if he snores. Consider sleep study going forward to evaluate for PARDEEP of Pulmonary HTN (9) AF (paroxysmal atrial fibrillation): Status: Chronic Code(s): I48.0 - Paroxysmal atrial fibrillation (10) Aortic valve stenosis, nonrheumatic: Status: Chronic Code(s): I35.0 - Nonrheumatic aortic (valve) stenosis Plan: moderate on ECHO in December 2023 (11) Venous insufficiency (chronic) (peripheral): Status: Chronic Code(s): I87.2 - Venous insufficiency (chronic) (peripheral) Plan: controlled with YUNIER hose. Holding Lasix due to dehydration and poor oral intakedispite encouragement of staff. Suspected lower extremity edema related to sedintary lifestyle and sitting a majority of the day causing dependant edema to the ankles He has not had edema during his stay while he has been wearing TEDhose and elevation of legs during sitting times. (Lasic on hold) Weight has beenstable during admission. (12) Heme positive stool: Status: Acute Code(s): R19.5 - Other fecal abnormalities Plan: HBG is stable. Pt is on Protonix. Comment: HGB is WNL (13) Thrombocytopenia: Status: Chronic Code(s): D69.6 - Thrombocytopenia, unspecified Plan: Unknown Etiology. Pt has been stable the for a couple of years following chart review and PLT are > 100,000 Recommend OP followup . (14) Essential hypertension: Status: Chronic Code(s): I10 - Essential (primary) hypertension Plan: initiated Lisinopril 2.5mg PO q day. (15) Urine retention: Status: Acute Code(s): R33.9 - Retention of urine, unspecified Plan: Possibly related to Narcotics and Tizanidine. These are now PRN. bladder scan q 8 hours if no urine produced. straight cath for > 300ml Flowmax 0.4mg PO q day Flowmax 0.4mg PO bid x 1 day on 01/24/25 insert indwelling urinary cath for required straight cat of 3 or greater times. consider urinary consult if indwelling cath is re-inserted. Comment: voiding trial scheduled for 01/24/25. (16) UTI (urinary tract infection): Status: Acute Code(s): N39.0 - Urinary tract infection, site not specified Plan: Kelfex 500mg PO q 8 hours x 10 days Plan PLAN Summary: 1. Pt will be transferred to TCU on 01/26/25 for continued PT/OT, before returning home with son. 2.per Dr. Baum: Continue to hold Lasix . May continue after DC on a PRN basis if he has an increase in weight >5 pounds within a week. He is aware that his ankle edema is currently being controlled with YUNIER hose and elevation, Education about signs of dehydration and that he has not experienced those during his stay. These include dizziness and fatigue. 3. Consider OP sleep study for PARDEEP. STOP BAND is a least 6 out of possible 8 and he has pulmonary HTN and AF. 4. Continue with Keflex for UTI. culture and sensitivity are pending. 5. Increased Flomax to 0.4mg PO bid for urinary retention. Allergies/Procedures Done in Hospital Allergies tramadol (From [facility]) Adverse Reaction (Verified 01/10/25 10:15) Other DIZZINESS, WEAKNESS, LIGHT HEADEDNESS Procedures: - (Intercostal blocks on the right side by Dr. Mantilla on 01/16/2025 to control pain due to multiple rib fractures.) Type of Care/Length of Stay Estimated LOS: Convalescent Care Less Than 30 days Type of Care Needed: Skilled Rehab Potential: Good Prognosis: Good Additional Orders/Day of Discharge H&P will serve as current which was dated: 01/11/25 Day of Discharge: 01/26/25 Dietary and Speech Recommendations Dietitian Recommendations/Changes: Continue regular diet and 120ml EPHP with breakfast and dinner. Consult RD if changes occur in pt nutritional status. Follow Up Care Please follow up with your Primary Care Physician in: Following DC from TCU. Please Follow Up With: Paulino Jose WILTON WEAVER, WILTON WEAVER-C When: as previously instructed. Please Follow Up With: Kolby Mantilla MD When: PRN for uncontrolled pain. Discharge Plan Admission Admit Date/Time: 01/11/25 10:30 Primary Reason for Your Visit: DEBILITY DUE TO MULTIPLE RIB FRACTURES/INTRACTABLE PAIN Attending Provider: Mallory Baum Primary Care Provider: [facility] Consulting Providers: Kolby Mantilla Discharge Orders/Prescriptions Prescriptions: New celecoxib 200 mg Capsule 200 mg PO DAILY Qty: 1 0RF acetaminophen 500 mg Tablet 1,000 mg PO Q8 Qty: 1 0RF hydrocortisone acetate 25 mg Suppository 25 mg FL BID PRN PRN (Reason: Hemorrhoids) Qty: 1 0RF magnesium hydroxide 400 mg/5 mL Suspension 30 ml PO X1 PRN (Reason: Constipation) Qty: 1 0RF bisacodyl 10 mg Suppository 10 mg FL X1 PRN (Reason: Constipation) Qty: 1 0RF nystatin 100,000 unit/gram Powder 1 applic topical 0600,2200 Qty: 1 0RF Protocol: *Topical Application Instructions APPLICATION INSTRUCTIONS: groin lisinopril 2.5 mg Tablet 2.5 mg PO DAILY Qty: 1 0RF enoxaparin 40 mg/0.4 mL Syringe 40 mg subcut DAILY@0600 Qty: 1 0RF menthol-zinc oxide [Calmoseptine] 0.44-20.6 % Ointment 1 applic topical BID Qty: 1 0RF Protocol: *Topical Application Instructions APPLICATION INSTRUCTIONS: Apply to buttock Petrolatum 33% [Eucerin Eqivalent] 1 applic topical QHS Qty: 1 0RF Rx Instructions: APPLY FROM THE KNEES TO THE BASE OF THE TOES AT HS sennosides-docusate sodium [Stimulant Laxative Plus] 8.6-50 mg Tablet 2 tab PO BID Qty: 1 0RF Biotene Dry Mouth Oral Rinse Mouthwash 15 ml mucous membrane 5X/DAY PRN (Reason: Dry Mouth) Qty: 1 0RF oxycodone 5 mg tablet 5 mg PO Q6H PRN (Reason: pain) 1 Days Qty: 1 0RF cephalexin 500 mg Capsule 500 mg PO Q12 8 Days Qty: 16 0RF Continued aspirin [Marisela Low Dose Aspirin] 81 mg tablet,delayed release (DR/EC) 81 mg PO DAILY omeprazole 40 mg capsule,delayed release(DR/EC) 40 mg PO DAILY multivitamin Tablet 1 tab PO DAILY ranolazine 1,000 mg tablet extended release 12 hr 1,000 mg PO Q12H nitroglycerin 0.4 mg tablet, sublingual 0.4 mg SUBLINGUAL Q5-15M PRN (Reason: Chest Pain) Qty: 25 3RF tamsulosin 0.4 MG capsule 0.4 mg PO DAILY Patient Comments: now taking BID latanoprost 0.005 % drops 1 drp ophthalmic (eye) QHS Held potassium chloride 20 mEq tablet extended release 20 meq PO DAILY Hold Instructions: He is no longer taking Lasix. Resume if he takes Lasix Discontinued hydrocodone-acetaminophen 5-325 mg tablet 1 tab PO Q6H PRN PRN (Reason: Pain) 3 Days Qty: 10 0RF furosemide 40 mg tablet 40 mg PO DAILY Referrals / Follow Up: Kolby Mantilla MD [Med Staff - Active Staff] - 02/20/25 10:15 am Dominik Bailey MD [Med Staff - Active Staff] - [facility], MD [Primary Care Provider] - Disposition Disposition (needs filled in before D/C Order can be placed): Care Home Facility (2) Fall Qualifiers: Encounter type: subsequent encounter Qualified Code(s): W19.XXXD - Unspecified fall, subsequent encounter (3) Multiple rib fractures Qualifiers: Encounter type: subsequent encounter Fracture type: closed Laterality: bilateral Qualified Code(s): S22.43XD - Multiple fractures of ribs, bilateral, subsequent encounter for fracture with routine healing (7) (HFpEF) heart failure with preserved ejection fraction Qualifiers: Heart failure chronicity: chronic Qualified Code(s): I50.32 - Chronic diastolic (congestive) heart failure (16) UTI (urinary tract infection) Qualifiers: Urinary tract infection type: urethritis Qualified Code(s): N34.2 - Other urethritis 01/25/25 1438 <Electronically signed by Anahi RAHMAN> Cosigner Signature (if applicable): 01/25/25 1450 <Electronically signed by Kaiser Pan MD> CC: Dr. Kolby Mantilla MD; Dr. Kaiser Pan MD ~ [facility] Work Phone: [phone] 434-673808-01-2025 Discharge summary [facility] Medical Records Department [address] [place] [id number] Discharge Summary 01/25/25 0830 MR#: [id number] Acct: [id number] Name: BENJIE MILES Rep #:[id number] : 1935 89 From: Anahi RAHMAN PCP: Dr. Kaiser Pan MD Status:ADM I N Location: [place] [address] Providers Date of Admission: 01/11/25 Date of Discharge: 01/26/25 Primary Care Physician: Dr. Kaiser Pan MD Consultations 01/11/25 12:10 Consult: Onc/Wound/credit portfolio advisor Routine Comment: Comments:: Left inner buttock pressure injury 01/14/25 14:26 Consult: Pain Management Routine Consulting Provider: Kolby Mantilla Reason for Consult: rib pain due to fractures. EMERGENT Consult: No MD Notified: Yes Date Notified: 01/14/25 Time Notified: 14:26 Method of Notification: Text Reason For Visit: RIGHT RIB FRACTURES Diagnosis Discharge Diagnosis (1) Physical debility: Status: Acute Code(s): R53.81 - Other malaise Plan: Due to fall resulting in multiple rib fractures. Had intercostal blocks done by Dr. Mantilla for paincontrol on 01/16/25 that were successful in pain management. Pt doesw have Oxycodone and Tizanidine available PRN. COntinue Celebres 200mg PO daily and Tylenol 1 gm Q8 hours. (2) Fall: Status: Inactive Code(s): W19.XXXA - Unspecified fall, initial encounter Qualifiers: Encounter type: subsequent encounter Qualified Code(s): W19.XXXD - Unspecified fall, subsequent encounter Plan: Fall precautions PT-OT eval and treat (3) Multiple rib fractures: Status: Acute Code(s): S22.49XA - Multiple fractures of ribs, unspecified side, initial encounter for closed fracture Qualifiers: Encounter type: subsequent encounter Fracture type: closed Laterality:bilateral Qualified Code(s): S22.43XD - Multiple fractures of ribs, bilateral, subsequent encounter for fracture with routine healing Plan: incentive spirometry 10 x per hour while awake splinting with back blanket vital signs Q shift (4) Uncontrolled pain: Status: Resolved Code(s): R52 - Pain, unspecified Plan: Now controlled following rib blocks done on 01/18/25 acetaminophen 1,000mg PO q 8 hours IRENA Celebrex IRENA daily [place] 5/325mg PO PRN breakthrough pain q 8 hours [id number] PO PRN muscle spasms (5) Chronic renal failure, stage 3a: Status: Chronic Code(s): N18.31 - Chronic kidney disease, stage 3a Plan: continue to monitor (6) Chronic constipation: Status: Chronic Code(s): K59.09 - Other constipation Plan: This has been a chronic problem for the patient and he has not taken any stool softners prior to arrival to the unit. He did take laxative frequently. He doeshave chronically poor fluid/water intake and he is on a diuretic for ankle edema. Ankle edema is most likely due to the pateints inactive lifestyle and venous insufficiency, spending time in a chair with legs down. [place] has been held duringadmission in inpatient rehab. Extensive education provided and YUNIER hose have been implemented. Education on wearing compression hose and leg elevation. Instructions by Dr. Baum to utilize Lasix ONLY if his weight increases by 5 pounds or greater in a week. (7) (HFpEF) heart failure with preserved ejection fraction: Status: Chronic Code(s): I50.30 - Unspecified diastolic (congestive) heart failure Qualifiers: Heart failure chronicity: chronic Qualified Code(s): I50.32 - Chronic diastolic (congestive) heart failure Plan: follow up as needed (8) Pulmonary hypertension: Status: Chronic Code(s): I27.20 - Pulmonary hypertension, unspecified Plan: per Dr. Baum notes: Systolic pressure estimated at 45 on the ECHO in 2023. During admission he did have a trending overnight pulse ox which showed that 2.29% of the time, his pulse ox ranged from 85-89% which was approximately 13minutes and 40 seconds. There were no desaturation eventsgreater than 60 seconds. STOP BANG score is 6 fir age >50, HTN , male sex, neckcircunference > 40cm, Daytime somnolence and BMI >35. He lives alone and does not know if he stops breathing at night or if he snores. Consider sleep study going forward to evaluate for PARDEEP of Pulmonary HTN (9) AF (paroxysmal atrial fibrillation): Status: Chronic Code(s): I48.0 - Paroxysmal atrial fibrillation (10) Aortic valve stenosis, nonrheumatic: Status: Chronic Code(s): I35.0 - Nonrheumatic aortic (valve) stenosis Plan: moderate on ECHO in December 2023 (11) Venous insufficiency (chronic) (peripheral): Status: Chronic Code(s): I87.2 - Venous insufficiency (chronic) (peripheral) Plan: controlled with YUNIER hose. Holding Lasix due to dehydration and poor oral intakedispite encouragement of staff. Suspected lower extremity edema related to sedintary lifestyle and sitting a majority of the day causing dependant edema to the ankles He has not had edema during his stay while he has been wearing TEDhose and elevation of legs during sitting times. (Lasic on hold) Weight has beenstable during admission. (12) Heme positive stool: Status: Acute Code(s): R19.5 - Other fecal abnormalities Plan: HBG is stable. Pt is on Protonix. (13) Thrombocytopenia: Status: Chronic Code(s): D69.6 - Thrombocytopenia, unspecified Plan: Unknown Etiology. Pt has been stable the for a couple of years following chart review and PLT are> 100,000 Recommend OP followup . (14) Essential hypertension: Status: Chronic Code(s): I10 - Essential (primary) hypertension Plan: initiated Lisinopril 2.5mg PO q day. (15) Urine retention: Status: Acute Code(s): R33.9 - Retention of urine, unspecified Plan: Possibly related to Narcotics and Tizanidine. These are now PRN. bladder scan q 8 hours if no urine produced. straight cath for > 300ml Flowmax 0.4mg PO q day Flowmax 0.4mg PO bid x 1 day on 01/24/25 insert indwelling urinary cath for required straight cat of 3 or greater times. consider urinary consult if indwelling cath is re-inserted. (16) UTI (urinary tract infection): Status: Acute Code(s): N39.0 - Urinary tract infection, site not specified Qualifiers: Urinary tract infection type: urethritis Qualified Code(s): N34.2 - Other urethritis Plan: Kelfex 500mg PO q 8 hours x 10 days Plan PLAN Summary: 1. Pt will be transferred to TCU on 01/26/25 for continued PT/OT, before returning home with son. 2.per Dr. Baum: Continue to hold Lasix . May continue after DC on a PRN basis if he has an increase in weight >5 pounds within a week. He is aware that his ankle edema is currently being controlled with YUNIER hose and elevation, Education about signs of dehydration and that he has not experienced those during his stay. These include dizziness and fatigue. 3. Consider OP sleep study for PARDEEP. STOP BAND is a least 6 out of possible 8 and he has pulmonary HTN and AF. 4. Continue with Keflex for UTI. culture and sensitivity are pending. 5. Increased Flomax to 0.4mg PO bid for urinary retention. Medications at Discharge Home Medications tamsulosin 0.4 mg capsule 0.4 mg PO DAILY URINE FLOW 03/06/16 aspirin 81 mg tablet,delayed release (Marisela Low Dose Aspirin) 81 mg PO DAILY heart health 07/04/18 omeprazole 40 mg capsule,delayed release 40 mg PO DAILY acid reflux 07/04/18 potassium chloride 20 mEq tablet,extended release 20 meq PO DAILY supplement 07/04/18 Held on 01/23/25. Instructions: He is no longer taking Lasix. Resume if he takes Lasix multivitamin 1 tab PO DAILY supplement 04/15/22 nitroglycerin 0.4 mg sublingual tablet 0.4 mg sublingual Q5-15M PRN Chest Pain #25 tabs 07/17/24 ranolazine 1,000 mg tablet,extended release,12 hr 1,000 mg PO Q12H Heart 07/17/24 latanoprost 0.005 % eye drops 1 drp ophthalmic (eye) [facility] eye health 01/11/25 Petrolatum 33% [Eucerin Eqivalent] 1 applic topical QHS #1 applic 01/23/25 acetaminophen 500 mg tablet 1,000 mg (2 x 500 mg) PO Q8 #1 TAB 01/23/25 bisacodyl 10 mg rectal suppository 10 mg FL X1 PRN Constipation #1 ea 01/23/25 celecoxib 200 mg capsule 200 mg PO DAILY #1 cap 01/23/25 enoxaparin 40 mg/0.4 mL subcutaneous syringe 40 mg (0.4 mL) subcut DAILY@0600 #1mL 01/23/25 hydrocortisone acetate 25 mg rectal suppository 25 mg FL BID PRN PRN Hemorrhoids#1 ea 01/23/25 lisinopril 2.5 mg tablet 2.5 mg PO DAILY #1 TAB 01/23/25 magnesium hydroxide 400 mg/5 mL oral suspension 30 ml PO X1 PRN Constipation #1 mL 01/23/25 menthol 0.44 %-zinc oxide 20.6 % topical ointment (Calmoseptine) 1 applic topical BID #1 g 01/23/25 nystatin 100,000 unit/gram topical powder 1 applic topical 0600,2200 #1 g 01/23/25 oxycodone 5 mg tablet 5 mg PO Q6H PRN pain 1 day #1 TAB 01/23/25 saliva substitute combo no.9 (Biotene Dry Mouth Oral Rinse mouthwash) 15 ml mucous membrane 5X/DAY PRN Dry Mouth #1 mL 01/23/25 sennosides 8.6 mg-docusate sodium 50 mg tablet (Stimulant Laxative Plus) 2 tab PO BID #1 TAB 01/23/25 cephalexin 500 mg capsule 500 mg PO Q12 8 days #16 caps 01/24/25 Physical Exam Const oriented x3 and no apparent distress Orientation / Consciousness: awake, oriented to person, oriented to place and oriented to time HEENT normocephalic Eyes PERRL, EOMs intact bilaterally, conjunctivae normal, no scleral icterus, no papilledema, normal visual blount by confrontation and fundi normal bilaterally Chest inspection of chest normal, palpation of chest normal, inspection of breasts normal and palpation of breasts normal Resp normal respiratory effort, normal air movement, no retractions, no use of accessory muscles, clear to auscultation bilaterally and percussion normal Cardio Cardio Narrative: intermittent A-fib Peripheral Pulses: pulses 2+ throughout GI normal to inspection, nondistended, normoactive bowel sounds, soft to palpation,non-tender, non-distended, no masses and no bruits GI Narrative: obesity Palpation: soft Narrative: urninary retention Bladder / Kidney Exam: other Back/Spine no CVA tenderness Extremity normal to inspection Peripheral Pulses: Yes pulses 2+ throughout Skin General Skin Exam: no breakdown Neuro oriented x3 Sensorium / Orientation: awake, alert, oriented to person, oriented to place andoriented to time Psych mental status grossly normal Medical Records Data Homelessness:: Sheltered Weight / BMI Weight Weight: 248 lb 14.43 oz Body Mass Index (BMI) 36.7 ABG / Lab / Microbiology Data 01/22/25 05:02 01/22/25 05:02 Laboratory: Laboratory Results - last 24 hr 01/24/25 13:10: Urine Color Yellow, Urine Clarity Sl. Cloudy, Urine pH 9.0, Ur Specific [place] 1.015, Urine Protein 15 H, Urine Glucose (UA) Normal, Urine Ketones Negative, Urine Occult Blood 25 H, Urine Nitrite Positive H, Urine Bilirubin Negative, Urine Urobilinogen Normal, Ur Leukocyte [id number] H, UrineRBC 0 SEEN, Urine WBC 0 SEEN, Ur Squamous Epith Cells 0 SEEN, Urine Bacteria 1+,Urine Mucus Not Reportable Microbiology: Microbiology 01/24/25 13:10 Urine Catheter - Don Urine Culture - Preliminary Gram negative jared 01/12/25 08:40 Stool Stool Occult Blood (REUBEN) - Final Occult Blood Positive D/C Instructions Discharge Activity: - (SEE PT/OT recommendations ) DC O2, CPAP, BIPAP Needs Home O2 Discharge instructions: No DC home with Oxygen: No Please Follow Up With: Paulino Jose WILTON WEAVER, WILTON WEAVER-C Meaningful Use Info Meaningful Use Meaningful Use Diagnoses (Choose all that apply): None applicable Discharge Plan Admission Admit Date/Time: 01/11/25 10:30 Primary Reason for Your Visit: DEBILITY DUE TO MULTIPLE RIB FRACTURES/INTRACTABLE PAIN Attending Provider: Mallory Baum Primary Care Provider: [facility] Consulting Providers: Kolby Mantilla Discharge Orders/Prescriptions Prescriptions: New celecoxib 200 mg Capsule 200 mg PO DAILY Qty: 1 0RF acetaminophen 500 mg Tablet 1,000 mg PO Q8 Qty: 1 0RF hydrocortisone acetate 25 mg Suppository 25 mg FL BID PRN PRN (Reason: Hemorrhoids) Qty: 1 0RF magnesium hydroxide 400 mg/5 mL Suspension 30 ml PO X1 PRN (Reason: Constipation) Qty: 1 0RF bisacodyl 10 mg Suppository 10 mg FL X1 PRN (Reason: Constipation) Qty: 1 0RF nystatin 100,000 unit/gram Powder 1 applic topical 0600,2200 Qty: 1 0RF Protocol: *Topical Application Instructions APPLICATION INSTRUCTIONS: groin lisinopril 2.5 mg Tablet 2.5 mg PO DAILY Qty: 1 0RF enoxaparin 40 mg/0.4 mL Syringe 40 mg subcut DAILY@0600 Qty: 1 0RF menthol-zinc oxide [Calmoseptine] 0.44-20.6 % Ointment 1 applic topical BID Qty: 1 0RF Protocol: *Topical Application Instructions APPLICATION INSTRUCTIONS: Apply to buttock Petrolatum 33% [Eucerin Eqivalent] 1 applic topical QHS Qty: 1 0RF Rx Instructions: APPLY FROM THE KNEES TO THE BASE OF THE TOES AT HS sennosides-docusate sodium [Stimulant Laxative Plus] 8.6-50 mg Tablet 2 tab PO BID Qty: 1 0RF Biotene Dry Mouth Oral Rinse Mouthwash 15 ml mucous membrane 5X/DAY PRN (Reason: Dry Mouth) Qty: 1 0RF oxycodone 5 mg tablet 5 mg PO Q6H PRN (Reason: pain) 1 Days Qty: 1 0RF cephalexin 500 mg Capsule 500 mg PO Q12 8 Days Qty: 16 0RF Continued aspirin [Marisela Low Dose Aspirin] 81 mg tablet,delayed release (DR/EC) 81 mg PO DAILY omeprazole 40 mg capsule,delayed release(DR/EC) 40 mg PO DAILY multivitamin Tablet 1 tab PO DAILY ranolazine 1,000 mg tablet extended release 12 hr 1,000 mg PO Q12H nitroglycerin 0.4 mg tablet, sublingual 0.4 mg SUBLINGUAL Q5-15M PRN (Reason: Chest Pain) Qty: 25 3RF tamsulosin 0.4 MG capsule 0.4 mg PO DAILY Patient Comments: now taking BID latanoprost 0.005 % drops 1 drp ophthalmic (eye) QHS Held potassium chloride 20 mEq tablet extended release 20 meq PO DAILY Hold Instructions: He is no longer taking Lasix. Resume if he takes Lasix Discontinued hydrocodone-acetaminophen 5-325 mg tablet 1 tab PO Q6H PRN PRN (Reason: Pain) 3 Days Qty: 10 0RF furosemide 40 mg tablet 40 mg PO DAILY Referrals / Follow Up: Kolby Mantilla MD [Med Staff - Active Staff] - 02/20/25 10:15 am Dominik Bailey MD [Med Staff - Active Staff] - [facility], MD [Primary Care Provider] - Disposition Disposition (needs filled in before D/C Order can be placed): Care Home Facility 01/25/25 1429 Cosigner Signature (if applicable): 01/25/25 1450 CC: WILTON WEAVEREzra Flynn; Dr. Kaiser Pan MD~ Signed [facility]08-01-2025 Discharge summary [facility] Medical Records Department [address] [place] [address] Transfer to [facility] Care MR#: [id number] Acct: [id number] Name: BENJIE MILES Rep #:[id number] 1 : [id number] 89 From: Anahi Bird WILTON WEAVEREzra PCP: Dr. Kaiser Pan MD Status:ADM I N Certification of patient admission REQUIRED AT TIME OF ADMISSION. I CERTIFY THAT POST-HOSPITAL ECF SERVICES ARE REQUIRED TO BE GIVEN ON AN IN-PATIENT BASIS BECAUSE OF THE ABOVE NAMED PATIENT'S NEED FOR [facility] CARE ON A CONTINUING BASIS FOR THE CONDITION(S) FOR WHICH HE/SHE WAS RECEIVING IN-PATIENT HOSPITAL SERVICES PRIOR TO HIS/HER TRANSFER TO THE [facility]. 01/25/25 1438 Diet Diet Order/Speech Therapy: INPATIENT Hospital Diet / Speech Therapy Order(s) 01/11/25 10:36 Diet: Regular - General Food consistency:: Regular Liquid Consistency:: Regular/Thin Type of Dietary Supplement:: Ensure Plus High Protein Diet Comments: 120ml chocolate EPHP with breakfast and dinner Routine Orders/Code Status Enema Type: Fleetz Enema Frequency: Daily PRN Suppository Type: Dulcolax 10mg Suppository Frequency: Daily PRN Code Status: Full Code DC O2, CPAP, BIPAP needs Home O2 Discharge instructions: No Wound(s) Right elbow: Wound Type: scab Left inner buttock: Wound Type: Pressure Injury MID BACK: Wound Type: Surgical Incision Therapies Physical Therapy: Eval and Treat Occupational Therapy: Eval and Treat Narrative: Wound(s) Right elbow: Wound Type: scab Left inner buttock: Wound Type: Pressure Injury MID BACK: Wound Type: Surgical Incision Therapies Weight Bearing: Full weight bearing Physical Therapy: Eval and Treat Occupational Therapy: Eval and Treat Problem/Diagnosis (1) Physical debility: Status: Acute Code(s): R53.81 - Other malaise Plan: Due to a fall resulting in multiple rib fractures. Had intercoastal blocks doneby Dr. Mantilla for pain control on 01/16/25 that were very effective. Oxycodone and tizanidine are now PRN only. Will continue celebrex 200 mg daily and Tylenol 1 GM Q 8H. (2) Fall: Status: Inactive Code(s): W19.XXXA - Unspecified fall, initial encounter (3) Multiple rib fractures: Status: Acute Code(s): S22.49XA - Multiple fractures of ribs, unspecified side, initial encounter for closed fracture Plan: Ribs 8, 9 and 10 on the right and the left 10th rib. (4) Uncontrolled pain: Status: Resolved Code(s): R52 - Pain, unspecified Plan: 01/23/25 Pain is well controlled. the rib blocks were very effective in gettingthe pain under control. Oxycodone during the day was made PRN 2 days ago and hehas not asked for it. He has been getting 5 mg at HS but, that was changed to PRN today. Fizanidine 2 mg BID has also changed to PRN. Continuescheduled Tylenol and Celebrex. continue the PRN Oxycodone 5 mg. (5) Chronic renal failure, stage 3a: Status: Chronic Code(s): N18.31 - Chronic kidney disease, stage 3a (6) Chronic constipation: Status: Chronic Code(s): K59.09 - Other constipation Plan: This has been a chronic problem. He was not taking any stool softeners at home but, was taking laxatives frequently. His fluid intake is chronically poor and he is on a diuretic for ankle edema whichis more likely than not due to venous insufficiency related to obesity and sedentary lifestyle. He also has pulmonaryHTN. He sits in a recliner most of the day and does not elevate his legs. Lasixwasheld on rehab and the edema is controlled with YUNIER hose. We have educated him on the importance of elevating his legs and wearing the compression stockings......he has these at home and his son is always encouraging him to wear them. I recommeded he take Lasix ONLY if his wt increases by 5 lbs or gr eater in a week. (7) (HFpEF) heart failure with preserved ejection fraction: Status: Chronic Code(s): I50.30 - Unspecified diastolic (congestive) heart failure (8) Pulmonary hypertension: Status: Chronic Code(s): I27.20 - Pulmonary hypertension, unspecified Plan: Systolic pressure estimated at 45 on echocardiogram in December 2023. He had an overnight trending pulse ox while on acute rehab and it showed that 2.29% of the time he is pulse ox ranged from 85 to 89%.This amounted to 13 minutes and 40 seconds. There were no desaturation events greater than 60 seconds. STOP BANG score is 6 for age>50, HTN, male sex, neck circumference > 40cm, daytime somnolence and BMI > 35. He lives alone and does not know if he stops breathingat night or if he snores.Would consider a sleep study going forward to evaluate him for PARDEEP as the etiology of Pulmonary HTN. (9) AF (paroxysmal atrial fibrillation): Status: Chronic Code(s): I48.0 - Paroxysmal atrial fibrillation (10) Aortic valve stenosis, nonrheumatic: Status: Chronic Code(s): I35.0 - Nonrheumatic aortic (valve) stenosis Plan: Moderate on echocardiogram in December 2023 (11) Venous insufficiency (chronic) (peripheral): Status: Chronic Code(s): I87.2 - Venous insufficiency (chronic) (peripheral) Plan: Controlled with YUNIER hose. Had to hold Lasix due to dehydration, poor fluid intake chronically. I suspect the LE edema is actually due to venous insufficiency/pulmonary HTN and not CHF. He sits most of the day with his legs dependent and there is no edema since he has been wearing the YUNIER hose (Lasix has been on hold). Wt is stable, despite all the carbs he consumes. (12) Heme positive stool: Status: Acute Code(s): R19.5 - Other fecal abnormalities Plan: HGB is stable. He is on {Protonix. Comment: HGB is WNL (13) Thrombocytopenia: Status: Chronic Code(s): D69.6 - Thrombocytopenia, unspecified Plan: Etiology? ITP? Can be evaluated as an OP. Etiology? Has been stable over the past couple years and PLT's are above 100,000. (14) Essential hypertension: Status: Chronic Code(s): I10 - Essential (primary) hypertension Plan: Started on Lisinopril 2.5 mg daily and BP looks better. No cough. (15) Urine retention: Status: Acute Code(s): R33.9 - Retention of urine, unspecified Plan: Suspect secondary to narcotics +/- Tizanidine. Comment: voiding trial scheduled for 01/24/25. Plan 1. Transfer to TCU on 01/26/25 for additional therapy prior to returning home with his son. 2. Continue to hold Lasix. He was supposed to be taking Lasix PRN at home but,was taking it daily. Will restart at [place] and have him take it PRN for an increase in weight of 5 lbs within a week. We discussed today that his leg edema is controlled without Lasix now........with elevation and compression. When he is dehydrated he is more fatigued and also lightheaded........has not been lightheaded since the Lasix was discontinued. 3. Consider an OP sleep study. [facility] is at lease 6 out of possible 8 and he has pulmonary HTN and AF. Allergies/Procedures Done in Hospital Allergies tramadol (From [facility]) Adverse Reaction (Verified 01/10/25 10:15) Other DIZZINESS, WEAKNESS, LIGHT HEADEDNESS Procedures: - (Intercostal blocks on the right side by Dr. Mantilla on 01/16/2025 to control pain due to multiple rib fractures.) Type of Care/Length of Stay Estimated LOS: Convalescent Care Less Than 30 days Type of Care Needed: Skilled Rehab Potential: Good Prognosis: Good Additional Orders/Day of Discharge H&P will serve as current which was dated: 01/11/25 Day of Discharge: 01/26/25 Dietary and Speech Recommendations Dietitian Recommendations/Changes: Continue regular diet and 120ml EPHP with breakfast and dinner. Consult RD if changes occur in pt nutritional status. Follow Up Care Please follow up with your Primary Care Physician in: Following DC from TCU. Please Follow Up With: Paulino Jose WILTON WEAVER, WILTON WEAVER-C When: as previously instructed. Please Follow Up With: Kolby Mantilla MD When: PRN for uncontrolled pain. Discharge Plan Admission Admit Date/Time: 01/11/25 10:30 Primary Reason for Your Visit: DEBILITY DUE TO MULTIPLE RIB FRACTURES/INTRACTABLE PAIN Attending Provider: Mallory Baum Primary Care Provider: [facility] Consulting Providers: Kolby Mantilla Discharge Orders/Prescriptions Prescriptions: New celecoxib 200 mg Capsule 200 mg PO DAILY Qty: 1 0RF acetaminophen 500 mg Tablet 1,000 mg PO Q8 Qty: 1 0RF hydrocortisone acetate 25 mg Suppository 25 mg FL BID PRN PRN (Reason: Hemorrhoids) Qty: 1 0RF magnesium hydroxide 400 mg/5 mL Suspension 30 ml PO X1 PRN (Reason: Constipation) Qty: 1 0RF bisacodyl 10 mg Suppository 10 mg FL X1 PRN (Reason: Constipation) Qty: 1 0RF nystatin 100,000 unit/gram Powder 1 applic topical 0600,2200 Qty: 1 0RF Protocol: *Topical Application Instructions APPLICATION INSTRUCTIONS: groin lisinopril 2.5 mg Tablet 2.5 mg PO DAILY Qty: 1 0RF enoxaparin 40 mg/0.4 mL Syringe 40 mg subcut DAILY@0600 Qty: 1 0RF menthol-zinc oxide [Calmoseptine] 0.44-20.6 % Ointment 1 applic topical BID Qty: 1 0RF Protocol: *Topical Application Instructions APPLICATION INSTRUCTIONS: Apply to buttock Petrolatum 33% [Eucerin Eqivalent] 1 applic topical QHS Qty: 1 0RF Rx Instructions: APPLY FROM THE KNEES TO THE BASE OF THE TOES AT HS sennosides-docusate sodium [Stimulant Laxative Plus] 8.6-50 mg Tablet 2 tab PO BID Qty: 1 0RF Biotene Dry Mouth Oral Rinse Mouthwash 15 ml mucous membrane 5X/DAY PRN (Reason: Dry Mouth) Qty: 1 0RF oxycodone 5 mg tablet 5 mg PO Q6H PRN (Reason: pain) 1 Days Qty: 1 0RF Continued aspirin [Marisela Low Dose Aspirin] 81 mg tablet,delayed release (DR/EC) 81 mg PO DAILY omeprazole 40 mg capsule,delayed release(DR/EC) 40 mg PO DAILY multivitamin Tablet 1 tab PO DAILY ranolazine 1,000 mg tablet extended release 12 hr 1,000 mg PO Q12H nitroglycerin 0.4 mg tablet, sublingual 0.4 mg SUBLINGUAL Q5-15M PRN (Reason: Chest Pain) Qty: 25 3RF tamsulosin 0.4 MG capsule 0.4 mg PO DAILY latanoprost 0.005 % drops 1 drp ophthalmic (eye) QHS Held potassium chloride 20 mEq tablet extended release 20 meq PO DAILY Hold Instructions: He is no longer taking Lasix. Resume if he takes Lasix Discontinued hydrocodone-acetaminophen 5-325 mg tablet 1 tab PO Q6H PRN PRN (Reason: Pain) 3 Days Qty: 10 0RF furosemide 40 mg tablet 40 mg PO DAILY Referrals / Follow Up: Kolby Mantilla MD [Med Staff - Active Staff] - 02/20/25 10:15 am [facility] Chi, MD [Primary Care Provider] - Disposition Disposition (needs filled in before D/C Order can be placed): Care Home Facility (2) Fall Qualifiers: Encounter type: subsequent encounter Qualified Code(s): W19.XXXD - Unspecified fall, subsequent encounter (3) Multiple rib fractures Qualifiers: Encounter type: subsequent encounter Fracture type: closed Laterality: bilateral Qualified Code(s):S22.43XD - Multiple fractures of ribs, bilateral, subsequent encounter for fracture with routine healing (7) (HFpEF) heart failure with preserved ejection fraction Qualifiers: Heart failure chronicity: chronic Qualified Code(s): I50.32 - Chronic diastolic (congestive) heart failure Cosigner Signature (if applicable): CC: ~ Problem/Diagnosis (1) Physical debility: Status: Acute Code(s): R53.81 - Other malaise Plan: Due to fall resulting in multiple rib fractures. Had intercostal blocks done by Dr. Mantilla for paincontrol on 01/16/25 that were successful in pain management. Pt doesw have Oxycodone and Tizanidine available PRN. COntinue Celebres 200mg PO daily and Tylenol 1 gm Q8 hours. (2) Fall: Status: Inactive Code(s): W19.XXXA - Unspecified fall, initial encounter Plan: Fall precautions PT-OT eval and treat (3) Multiple rib fractures: Status: Acute Code(s): S22.49XA - Multiple fractures of ribs, unspecified side, initial encounter for closed fracture Plan: incentive spirometry 10 x per hour while awake splinting with back blanket vital signs Q shift (4) Uncontrolled pain: Status: Resolved Code(s): R52 - Pain, unspecified Plan: Now controlled following rib blocks done on 01/18/25 acetaminophen 1,000mg PO q 8 hours IRENA Celebrex IRENA daily [place] 5/325mg PO PRN breakthrough pain q 8 hours [id number] PO PRN muscle spasms (5) Chronic renal failure, stage 3a: Status: Chronic Code(s): N18.31 - Chronic kidney disease, stage 3a Plan: continue to monitor (6) Chronic constipation: Status: Chronic Code(s): K59.09 - Other constipation Plan: This has been a chronic problem for the patient and he has not taken any stool softners prior to arrival to the unit. He did take laxative frequently. He doeshave chronically poor fluid/water intake and he is on a diuretic for ankle edema. Ankle edema is most likely due to the pateints inactive lifestyle and venous insufficiency, spending time in a chair with legs down. Lasix has been heldduring admission in inpatient rehab. Extensive education provided and YUNIER hose have been implemented. Education on wearing compression hose and leg elevation. Instructions by Dr. Baum to utilize Lasix ONLY if his weight increases by 5 pounds or greater in a week. (7) (HFpEF) heart failure with preserved ejection fraction: Status: Chronic Code(s): I50.30 - Unspecified diastolic (congestive) heart failure Plan: follow up as needed (8) Pulmonary hypertension: Status: Chronic Code(s): I27.20 - Pulmonary hypertension, unspecified Plan: per Dr. Baum notes: Systolic pressure estimated at 45 on the ECHO in 2023. During admission he did have a trending overnight pulse ox which showed that 2.29% of the time, his pulse ox ranged from 85-89% which was approximately 13minutes and 40 seconds. There were no desaturation eventsgreater than 60 seconds. STOP BANG score is 6 fir age >50, HTN , male sex, neckcircunference > 40cm, Daytime somnolence and BMI >35. He lives alone and does not know if he stops breathing at night or if he snores. Consider sleep study going forward to evaluate for PARDEEP of Pulmonary HTN (9) AF (paroxysmal atrial fibrillation): Status: Chronic Code(s): I48.0 - Paroxysmal atrial fibrillation (10) Aortic valve stenosis, nonrheumatic: Status: Chronic Code(s): I35.0 - Nonrheumatic aortic (valve) stenosis Plan: moderate on ECHO in December 2023 (11) Venous insufficiency (chronic) (peripheral): Status: Chronic Code(s): I87.2 - Venous insufficiency (chronic) (peripheral) Plan: controlled with YUNIER hose. Holding Lasix due to dehydration and poor oral intakedispite encouragement of staff. Suspected lower extremity edema related to sedintary lifestyle and sitting a majority of the day causing dependant edema to the ankles He has not had edema during his stay while he has been wearing TEDhose and elevation of legs during sitting times. (Lasic on hold) Weight has beenstable during admission. (12) Heme positive stool: Status: Acute Code(s): R19.5 - Other fecal abnormalities Plan: HBG is stable. Pt is on Protonix. Comment: HGB is WNL (13) Thrombocytopenia: Status: Chronic Code(s): D69.6 - Thrombocytopenia, unspecified Plan: Unknown Etiology. Pt has been stable the for a couple of years following chart review and PLT are> 100,000 Recommend OP followup . (14) Essential hypertension: Status: Chronic Code(s): I10 - Essential (primary) hypertension Plan: initiated Lisinopril 2.5mg PO q day. (15) Urine retention: Status: Acute Code(s): R33.9 - Retention of urine, unspecified Plan: Possibly related to Narcotics and Tizanidine. These are now PRN. bladder scan q 8 hours if no urine produced. straight cath for > 300ml Flowmax 0.4mg PO q day Flowmax 0.4mg PO bid x 1 day on 01/24/25 insert indwelling urinary cath for required straight cat of 3 or greater times. consider urinary consult if indwelling cath is re-inserted. Comment: voiding trial scheduled for 01/24/25. (16) UTI (urinary tract infection): Status: Acute Code(s): N39.0 - Urinary tract infection, site not specified Plan: Kelfex 500mg PO q 8 hours x 10 days Plan PLAN Summary: 1. Pt will be transferred to TCU on 01/26/25 for continued PT/OT, before returning home with son. 2.per Dr. Baum: Continue to hold Lasix . May continue after DC on a PRN basis if he has an increase in weight >5 pounds within a week. He is aware that his ankle edema is currently being controlled with YUNIER hose and elevation, Education about signs of dehydration and that he has not experienced those during his stay. These include dizziness and fatigue. 3. Consider OP sleep study for PARDEEP. STOP BAND is a least 6 out of possible 8 and he has pulmonary HTN and AF. 4. Continue with Keflex for UTI. culture and sensitivity are pending. 5. Increased Flomax to 0.4mg PO bid for urinary retention. Allergies/Procedures Done in Hospital Allergies tramadol (From [facility]) Adverse Reaction (Verified 01/10/25 10:15) Other DIZZINESS, WEAKNESS, LIGHT HEADEDNESS Procedures: - (Intercostal blocks on the right side by Dr. Mantilla on 01/16/2025 to control pain due to multiple rib fractures.) Type of Care/Length of Stay Estimated LOS: Convalescent Care Less Than 30 days Type of Care Needed: Skilled Rehab Potential: Good Prognosis: Good Additional Orders/Day of Discharge H&P will serve as current which was dated: 01/11/25 Day of Discharge: 01/26/25 Dietary and Speech Recommendations Dietitian Recommendations/Changes: Continue regular diet and 120ml EPHP with breakfast and dinner. Consult RD if changes occur in pt nutritional status. Follow Up Care Please follow up with your Primary Care Physician in: Following DC from TCU. Please Follow Up With: Paulino Jose WILTON WEAVER, WILTON WEAVER-C When: as previously instructed. Please Follow Up With: Kolby Mantilla MD When: PRN for uncontrolled pain. Discharge Plan Admission Admit Date/Time: 01/11/25 10:30 Primary Reason for Your Visit: DEBILITY DUE TO MULTIPLE RIB FRACTURES/INTRACTABLE PAIN Attending Provider: Mallory Baum Primary Care Provider: [facility] Consulting Providers: Kolby Mantilla Discharge Orders/Prescriptions Prescriptions: New celecoxib 200 mg Capsule 200 mg PO DAILY Qty: 1 0RF acetaminophen 500 mg Tablet 1,000 mg PO Q8 Qty: 1 0RF hydrocortisone acetate 25 mg Suppository 25 mg FL BID PRN PRN (Reason: Hemorrhoids) Qty: 1 0RF magnesium hydroxide 400 mg/5 mL Suspension 30 ml PO X1 PRN (Reason: Constipation) Qty: 1 0RF bisacodyl 10 mg Suppository 10 mg FL X1 PRN (Reason: Constipation) Qty: 1 0RF nystatin 100,000 unit/gram Powder 1 applic topical 0600,2200 Qty: 1 0RF Protocol: *Topical Application Instructions APPLICATION INSTRUCTIONS: groin lisinopril 2.5 mg Tablet 2.5 mg PO DAILY Qty: 1 0RF enoxaparin 40 mg/0.4 mL Syringe 40 mg subcut DAILY@0600 Qty: 1 0RF menthol-zinc oxide [Calmoseptine] 0.44-20.6 % Ointment 1 applic topical BID Qty: 1 0RF Protocol: *Topical Application Instructions APPLICATION INSTRUCTIONS: Apply to buttock Petrolatum 33% [Eucerin Eqivalent] 1 applic topical QHS Qty: 1 0RF Rx Instructions: APPLY FROM THE KNEES TO THE BASE OF THE TOES AT HS sennosides-docusate sodium [Stimulant Laxative Plus] 8.6-50 mg Tablet 2 tab PO BID Qty: 1 0RF Biotene Dry Mouth Oral Rinse Mouthwash 15 ml mucous membrane 5X/DAY PRN (Reason: Dry Mouth) Qty: 1 0RF oxycodone 5 mg tablet 5 mg PO Q6H PRN (Reason: pain) 1 Days Qty: 1 0RF cephalexin 500 mg Capsule 500 mg PO Q12 8 Days Qty: 16 0RF Continued aspirin [Marisela Low Dose Aspirin] 81 mg tablet,delayed release (DR/EC) 81 mg PO DAILY omeprazole 40 mg capsule,delayed release(DR/EC) 40 mg PO DAILY multivitamin Tablet 1 tab PO DAILY ranolazine 1,000 mg tablet extended release 12 hr 1,000 mg PO Q12H nitroglycerin 0.4 mg tablet, sublingual 0.4 mg SUBLINGUAL Q5-15M PRN (Reason: Chest Pain) Qty: 25 3RF tamsulosin 0.4 MG capsule 0.4 mg PO DAILY Patient Comments: now taking BID latanoprost 0.005 % drops 1 drp ophthalmic (eye) QHS Held potassium chloride 20 mEq tablet extended release 20 meq PO DAILY Hold Instructions: He is no longer taking Lasix. Resume if he takes Lasix Discontinued hydrocodone-acetaminophen 5-325 mg tablet 1 tab PO Q6H PRN PRN (Reason: Pain) 3 Days Qty: 10 0RF furosemide 40 mg tablet 40 mg PO DAILY Referrals / Follow Up: Kolby Mantilla MD [Med Staff - Active Staff] - 02/20/25 10:15 am Dominik Bailey MD [Med Staff - Active Staff] - Kaiser Pan Chi, MD [Primary Care Provider] - Disposition Disposition (needs filled in before D/C Order can be placed): Care Home Facility (2) Fall Qualifiers: Encounter type: subsequent encounter Qualified Code(s): W19.XXXD - Unspecified fall, subsequent encounter (3) Multiple rib fractures Qualifiers: Encounter type: subsequent encounter Fracture type: closed Laterality: bilateral Qualified Code(s):S22.43XD - Multiple fractures of ribs, bilateral, subsequent encounter for fracture with routine healing (7) (HFpEF) heart failure with preserved ejection fraction Qualifiers: Heart failure chronicity: chronic Qualified Code(s): I50.32 - Chronic diastolic (congestive) heart failure (16) UTI (urinary tract infection) Qualifiers: Urinary tract infection type: urethritis Qualified Code(s): N34.2 - Other urethritis 01/25/25 1438 Cosigner Signature (if applicable): 01/25/25 1450 CC: Dr. Kolby Mantilla MD; Dr. Kaiser Pan MD ~ [facility]07-30-2025 Progress note Author Mallory Baum [facility] Note Date/Time January 23, 2025 12:0 1pm [facility] Medical Records Department [address] [place] [address] Progress Note 01/23/25 0815 MR#: [id number] Acct: [id number] Name: BENJIE MILES Rep #:[id number] 3 : 1935 89 From: Mallory Baum DO PCP: Dr. Kaiser Pan MD Status:ADM I N Location: [place] [address] Subjective Subjective Afebrile VSS - BP is better with addition of Lisinopril to the drug regimen. Maintaining appropriate oxygen saturation on RA Oral intake - FOOD good FLUIDS fluid intake was better yesterday and he had 1700 cc. Discussed with nursing - no problems that need addressed Reviewed the THERAPY notes Medication list reviewed. Has not taken any oxycodone except the at bedtime dose since 11/21/2024 in the AM. Hemoglobin A1c yesterday was normal at 5.5. Pain is adequately controlled. He had trouble falling asleep last night......heattributes this to all the sugar he consumed after supper last night. Denies lightheadedness, cephalgia, cough, nausea/vomiting, suprapubic pain. He always has complaints of soreness in several different areas of his body.......I attribute this to the fact that he is more active now than he has been in the past few years and he is going to have musculoskeletal pain because he is using muscles that he has not been using. He has been incontinent of stool today. Continent yesterday. 2 BM's yesterday and 1 today. Yesterday he had formed stool and his BM today was formed per nursing. Miralax was changed to PRN yesterday. Bill tells me that he will be going to TCU. I reviewed the note from SW ....TCU will probably have beds. Objective Data Objective Data Vital Signs: Vital Signs Temp Pulse Resp BP Pulse Ox O2 Del Method FiO2 97.1 F L 62 17 127/71 H 96 Room Air 21 01/23/25 06:00 01/23/25 06:00 01/23/25 06:00 01/23/25 06:00 01/22/25 21:30 01/23/25 06:00 01/15/25 15:10 Oxygen Delivery Method Room Air Weight: 248 lb 14.43 oz Body Mass Index (BMI) 36.7 Intake & Output: Intake and Output for Last 24 Hours 01/21/25 01/22/25 01/23/25 23:59 23:59 23:59 Intake Total 1160 / 1160 1700 / 1700 Output Total 1130 / 1555 1925 / 1925 800 / 800 Balance 30 / -395 -225 / -225 -800 / -800 Lab / Micro Data 01/22/25 05:02 01/22/25 05:02 Labs: Laboratory Results - last 24 hr 01/22/25 05:02: Hemoglobin A1c 5.5 Micro: Microbiology 01/12/25 08:40 Stool Stool Occult Blood (REUBEN) - Final Occult Blood Positive Social Homelessness:: Sheltered Physical Exam Const alert, oriented x3 and no apparent distress Resp Resp Narrative: CTA after a few deep breaths. Cardio regular rate and regular rhythm Cardio Narrative: Some ectopics. 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 The MM at the apex is short and high pitched. No diastolic MM. No gallop GI normal to inspection, nondistended, normoactive bowel sounds, soft to palpation and non-tender GI Narrative: No guarding with palpation. Extremity Extremity Narrative: No significant ankle edema today........YUNIER hose are in place Psych cooperative and affect normal Appearance: appropriate Attitude: No agitated Assessment & Plan Assessment/Plan (1) Physical debility: (2) Fall: QUALIFIERS: Encounter type: subsequent encounter Qualified Code(s): W19.XXXD - Unspecified fall, subsequent encounter (3) Multiple rib fractures: QUALIFIERS: Encounter type: subsequent encounter Fracture type: closed Laterality: bilateral Qualified Code(s): S22.43XD - Multiple fractures of ribs, bilateral, subsequent encounter for fracture with routine healing (4) Uncontrolled pain: PLAN: 01/23/25 Pain is well controlled. the rib blocks were very effective in getting the pain under control. Oxycodone during the day was made PRN 2 days ago and he has not asked for it. He has been getting 5 mg at HS but, that was changed to PRN today. Fizanidine 2 mg BID has also changed to PRN. Continue scheduled Tylenol and Celebrex. continue the PRN Oxycodone 5 mg. (5) Chronic renal failure, stage 3a: (6) Chronic constipation: (7) (HFpEF) heart failure with preserved ejection fraction: QUALIFIERS: Heart failure chronicity: chronic Qualified Code(s): I50.32 - Chronic diastolic (congestive) heart failure (8) Pulmonary hypertension: (9) AF (paroxysmal atrial fibrillation): (10) Aortic valve stenosis, nonrheumatic: (11) Venous insufficiency (chronic) (peripheral): PLAN: Controlled with YUNIER hose. Had to hold Lasix due to dehydration, poor fluid intake chronically. I suspect the LE edema is actually due to venous insufficiency and not HF. He sits most of the day with his legs dependent and there is no edema since he has been wearing the YUNIER hose (Lsix has been on hold). Wt is stable, despite all the carbs he consumes. (12) Heme positive stool: PLAN: HGB is stable. He is on {Protonix. (13) Thrombocytopenia: PLAN: Etiology? ITP? Can be evaluated as an OP. (14) Essential hypertension: PLAN: Started on Lisinopril 2.5 mg daily and B{P looks better. No cough. (15) Urine retention: PLAN: Suspect secondary to narcotics +/- Tizanidine. PLAN: Plan 1. Continue therapy 2. Transferred to TCU at discharge for additional therapy prior to returning home. 3. Voiding trial in the a.m. 4. Continue to hold Lasix. He was supposed to be taking Lasix PRN at home but,was taking it daily. Will restart at [place] and have him take it PRN for an increase in weight of 5 lbs within a week. We discussed today that his leg edema is controlled without Lasix now........with elevation and compression. When he is dehydrated he is more fatigued and also lightheaded........has not been lightheaded since the Lasix was discontinued. Charges/Coding Visit Charges Inpatient E&M: 43079 Subs Hosp L1 01/23/25 1201 <Electronically signed by Mallory Baum DO> Mallory Baum DO Cosigner Signature (if applicable): CC: ~ Signed [facility] Work Phone: 1(465) 986-415607-30-2025 Progress note [facility] Medical Records Department [address] [place] [address] Progress Note 01/23/25 0815 MR#: [id number] Acct: [id number] Name: BENJIE MILES Rep #:[id number] 3 : 1935 89 From: Mallory Baum DO PCP: Dr. Kaiser Pan MD Status:ADM I N Location: [place] [address] Subjective Subjective Afebrile VSS - BP is better with addition of Lisinopril to the drug regimen. Maintaining appropriate oxygen saturation on RA Oral intake - FOOD good FLUIDS fluid intake was better yesterday and he had 1700 cc. Discussed with nursing - no problems that need addressed Reviewed the THERAPY notes Medication list reviewed. Has not taken any oxycodone except the at bedtime dose since 11/21/2024 inthe AM. Hemoglobin A1c yesterday was normal at 5.5. Pain is adequately controlled. He had trouble falling asleep last night......heattributes this to all the sugar he consumed after supper last night. Denies lightheadedness, cephalgia, cough, nausea/vomiting, suprapubic pain. He always has complaints of soreness in several different areas of his body.......I attribute this to the fact that he is more active now than he has been in the past few years and he is going to have musculoskeletal pain because he is using muscles that he has not been using. He has been incontinent of stool today. Continent yesterday. 2 BM's yesterday and 1 today. Yesterday he had formed stool and his BM today was formed per nursing. Miralax was changed to PRN yesterday. Kenan tells me that he will be going to TCU. I reviewed the note from SW ....TCU will probably have beds. Objective Data Objective Data Vital Signs: Vital Signs Temp Pulse Resp BP Pulse Ox O2 Del Method FiO2 97.1 F L 62 17 127/71 H 96 Room Air 21 01/23/25 06:00 01/23/25 06:00 01/23/25 06:00 01/23/25 06:00 01/22/25 21:30 01/23/25 06:00 01/15/25 15:10 Oxygen Delivery Method Room Air Weight: 248 lb 14.43 oz Body Mass Index (BMI) 36.7 Intake & Output: Intake and Output for Last 24 Hours 01/21/25 01/22/25 01/23/25 23:59 23:59 23:59 Intake Total 1160 / 1160 1700 / 1700 Output Total 1130 / 1555 1925 / 1925 800 / 800 Balance 30 / -395 -225 / -225 -800 / -800 Lab / Micro Data 01/22/25 05:02 01/22/25 05:02 Labs: Laboratory Results - last 24 hr 01/22/25 05:02: Hemoglobin A1c 5.5 Micro: Microbiology 01/12/25 08:40 Stool Stool Occult Blood (REUBEN) - Final Occult Blood Positive Social Homelessness:: Sheltered Physical Exam Const alert, oriented x3 and no apparent distress Resp Resp Narrative: CTA after a few deep breaths. Cardio regular rate and regular rhythm Cardio Narrative: Some ectopics. 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 TheMM at the apex is short and high pitched. No diastolic MM. No gallop GI normal to inspection, nondistended, normoactive bowel sounds, soft to palpation and non-tender GI Narrative: No guarding with palpation. Extremity Extremity Narrative: No significant ankle edema today........YUNIER hose are in place Psych cooperative and affect normal Appearance: appropriate Attitude: No agitated Assessment & Plan Assessment/Plan (1) Physical debility: (2) Fall: QUALIFIERS: Encounter type: subsequent encounter Qualified Code(s): W19.XXXD - Unspecified fall, subsequent encounter (3) Multiple rib fractures: QUALIFIERS: Encounter type: subsequent encounter Fracture type: closed Laterality: bilateral Qualified Code(s): S22.43XD - Multiple fractures of ribs, bilateral, subsequent encounter for fracture with routine healing (4) Uncontrolled pain: PLAN: 01/23/25 Pain is well controlled. the rib blocks were very effective in getting the pain undercontrol. Oxycodone during the day was made PRN 2 days ago and he has not asked for it. He has been getting 5 mg at HS but, that was changed to PRN today. Fizanidine 2 mg BID has also changed to PRN. Continue scheduled Tylenol and Celebrex. continue the PRN Oxycodone 5 mg. (5) Chronic renal failure, stage 3a: (6) Chronic constipation: (7) (HFpEF) heart failure with preserved ejection fraction: QUALIFIERS: Heart failure chronicity: chronic Qualified Code(s): I50.32 - Chronic diastolic (congestive) heart failure (8) Pulmonary hypertension: (9) AF (paroxysmal atrial fibrillation): (10) Aortic valve stenosis, nonrheumatic: (11) Venous insufficiency (chronic) (peripheral): PLAN: Controlled with YUNIER hose. Had to hold Lasix due to dehydration, poor fluid intake chronically. I suspect the LE edema is actually due to venous insufficiency and not HF. He sits most of the daywith his legs dependent and there is no edema since he has been wearing the YUNIER hose (Lsix has beenon hold). Wt is stable, despite all the carbs he consumes. (12) Heme positive stool: PLAN: HGB is stable. He is on {Protonix. (13) Thrombocytopenia: PLAN: Etiology? ITP? Can be evaluated as an OP. (14) Essential hypertension: PLAN: Started on Lisinopril 2.5 mg daily and B{P looks better. No cough. (15) Urine retention: PLAN: Suspect secondary to narcotics +/- Tizanidine. PLAN: Plan 1. Continue therapy 2. Transferred to TCU at discharge for additional therapy prior to returning home. 3. Voiding trial in the a.m. 4. Continue to hold Lasix. He was supposed to be taking Lasix PRN at home but,was taking it daily. Will restart at [place] and have him take it PRN for an increase in weight of 5 lbs within a week. We discussed today that his leg edema is controlled without Lasix now........with elevation and compression. When he is dehydrated he is more fatigued and also lightheaded........has not been lightheaded since the Lasix was discontinued. Charges/Coding Visit Charges Inpatient E&M: 57261 Subs Hosp L1 01/23/25 1201 Mallory Baum DO Cosigner Signature (if applicable): CC: ~ Signed [facility]07-29-2025 Progress note Author Mallory Mcgeerancho [facility] Note Date/Time January 22, 2025 11:5 2am [facility] Medical Records Department [address] [place] [address] Progress Note 01/22/25 1142 MR#: [id number] Acct: [id number] Name: BENJIE MILES Rep #:[id number] 2 : 1935 89 From: Mallory Baum DO PCP: Dr. Kaiser Pan MD Status:ADM I N Location: [place] [address] Subjective Subjective Afebrile Vital signs stable Maintaining appropriate oxygen saturation on room air Good appetite. Fair fluid intake. All lab from this morning was personally reviewed. White blood cell count is normal at 7.8. Hemoglobin is 12.6 and platelets are stable at 129,000. Sodium is 140 and the potassium is 4.7. The BUN is 30 and the creatinine is stable at 1.22 which is within his baseline. Orthostatics were negative yesterday. Denies lightheadedness today. Slept well last night. Pain is adequately controlled. Denies cough, hemoptysis, shortness of breath, nausea/vomiting/abdominal pain, calf pain. Has not taken any oxycodone today. He had 2 doses yesterday 5 mg in the a.m. and he had 5 mg at at bedtime. Will likely try a voiding trial on . urine is still hemalatha in color and he was encouraged to increase his fluid intakeagain........this is a daily thing. Objective Data Objective Data Vital Signs: Vital Signs Temp Pulse Resp BP Pulse Ox O2 Del Method FiO2 97.8 F 64 16 115/80 94 Room Air 21 01/22/25 06:00 01/22/25 06:00 01/22/25 06:00 01/22/25 06:00 01/22/25 06:00 01/22/25 06:00 01/15/25 15:10 Oxygen Delivery Method Room Air Weight: 253 lb 4.978 oz Body Mass Index (BMI) 37.5 Intake & Output: Intake and Output for Last 24 Hours 01/20/25 01/21/25 01/22/25 23:59 23:59 23:59 Intake Total 1120 / 1120 1160 / 1160 640 / 640 Output Total 1060 / 1060 1130 / 1555 925 / 925 Balance 60 / 60 30 / -395 -285 / -285 Lab / Micro Data 01/22/25 05:02 01/22/25 05:02 Labs: Laboratory Results - last 24 hr 01/22/25 05:02: WBC 7.8, RBC 3.41 L, Hgb 12.6 L, Hct 36.5 L, MCV 107.0 H, MCH 37.0 H, MCHC 34.5, RDW Std Deviation 59.0 H, RDW Coeff of Brigitte 14.8 H, Plt Count 129 L, MPV 11.5, Sodium 140, Potassium 4.7, Chloride 105, Carbon Dioxide 24.0, Anion Gap 11, BUN 30 H, Creatinine 1.22 H, Estim Creat Clear Calc 53.33, Est GFR(MDRD) Non-Af 57 L, BUN/Creatinine Ratio 24.8 H, Glucose 125 H, Calcium 9.1 Micro: Microbiology 01/12/25 08:40 Stool Stool Occult Blood (REUBEN) - Final Occult Blood Positive Social Homelessness:: Sheltered Physical Exam Const alert, oriented x3 and no apparent distress Resp Resp Narrative: few coarse crackles in the left base initially that resolved after a couple deepbreaths. He is clear on the R side. Cardio regular rate and regular rhythm Cardio Narrative: Some ectopics. 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 The MM at the apex is short and high pitched. No diastolic MM. No gallop GI normal to inspection, nondistended, normoactive bowel sounds, soft to palpation and non-tender GI Narrative: No guarding with palpation. Extremity Extremity Narrative: No significant ankle edema today........YUNIER enciso are in place Neuro CN's II-XII intact bilaterally and no focal motor deficits Psych cooperative and affect normal Appearance: appropriate Attitude: No agitated Assessment & Plan Assessment/Plan (1) Physical debility: (2) Fall: QUALIFIERS: Encounter type: subsequent encounter Qualified Code(s): W19.XXXD - Unspecified fall, subsequent encounter (3) Multiple rib fractures: QUALIFIERS: Encounter type: subsequent encounter Fracture type: closed Laterality: bilateral Qualified Code(s): S22.43XD - Multiple fractures of ribs, bilateral, subsequent encounter for fracture with routine healing (4) Uncontrolled pain: (5) Chronic renal failure, stage 3a: (6) Chronic constipation: (7) (HFpEF) heart failure with preserved ejection fraction: QUALIFIERS: Heart failure chronicity: chronic Qualified Code(s): I50.32 - Chronic diastolic (congestive) heart failure (8) Pulmonary hypertension: (9) AF (paroxysmal atrial fibrillation): (10) Aortic valve stenosis, nonrheumatic: (11) GERD (gastroesophageal reflux disease): QUALIFIERS: Esophagitis presence: without esophagitis Qualified Code(s): K21.9 - Gastro-esophageal reflux disease without esophagitis (12) Class II obesity: (13) Venous insufficiency (chronic) (peripheral): (14) Heme positive stool: (15) Hemorrhoids: QUALIFIERS: Hemorrhoid type: unspecified Qualified Code(s): K64.9- Unspecified hemorrhoids (16) Thrombocytopenia: (17) Essential hypertension: PLAN: Plan 1. Continue therapy 2. No changes to the drug regimen today. 3. Voiding trial on 4. May be able to DC tizanidine in the next couple days. Charges/Coding Visit Charges Inpatient E&M: 35846 Subs Hosp L1 01/22/25 1152 <Electronically signed by Mallory Baum DO> Mallory Baum DO Cosigner Signature (if applicable): CC: ~ Signed [facility] Work Phone: [phone] Progress note [facility] Medical Records Department [address] [place] [address] Progress Note 01/22/25 1142 MR#: [id number] Acct: [id number] Name: BENJIE MILES Rep #:[id number] 2 : 1935 89 From: Mallory Baum DO PCP: Dr. Kaiser Pan MD Status:ADM I N Location: [place] [address] Subjective Subjective Afebrile Vital signs stable Maintaining appropriate oxygen saturation on room air Good appetite. Fair fluid intake. All lab from this morning was personally reviewed. White blood cell count is normal at 7.8. Hemoglobin is 12.6 and platelets are stable at 129,000. Sodium is 140 and the potassium is 4.7. The BUN is 30 and the creatinine is stable at 1.22 which is within his baseline. Orthostatics were negative yesterday. Denies lightheadedness today. Slept well last night. Pain is adequately controlled. Denies cough, hemoptysis, shortness of breath, nausea/vomiting/abdominal pain, calf pain. Has not taken any oxycodone today. He had 2 doses yesterday 5 mg in the a.m. and he had 5 mg at at bedtime. Will likely try a voiding trial on . urine is still hemalatha in color and he was encouraged to increase his fluid intakeagain........this is a daily thing. Objective Data Objective Data Vital Signs: Vital Signs Temp Pulse Resp BP Pulse Ox O2 Del Method FiO2 97.8 F 64 16 115/80 94 Room Air 21 01/22/25 06:00 01/22/25 06:00 01/22/25 06:00 01/22/25 06:00 01/22/25 06:00 01/22/25 06:00 01/15/25 15:10 Oxygen Delivery Method Room Air Weight: 253 lb 4.978 oz Body Mass Index (BMI) 37.5 Intake & Output: Intake and Output for Last 24 Hours 01/20/25 01/21/25 01/22/25 23:59 23:59 23:59 Intake Total 1120 / 1120 1160 / 1160 640 / 640 Output Total 1060 / 1060 1130 / 1555 925 / 925 Balance 60 / 60 30 / -395 -285 / -285 Lab / Micro Data 01/22/25 05:02 01/22/25 05:02 Labs: Laboratory Results - last 24 hr 01/22/25 05:02: WBC 7.8, RBC 3.41 L, Hgb 12.6 L, Hct 36.5 L, MCV 107.0 H, MCH 37.0 H, MCHC 34.5, RDW Std Deviation 59.0 H, RDW Coeff of Brigitte 14.8 H, Plt Count 129 L, MPV 11.5, Sodium 140, Potassium 4.7, Chloride 105, Carbon Dioxide 24.0, Anion Gap 11, BUN 30 H, Creatinine 1.22 H, Estim Creat Clear Calc 53.33, Est GFR(MDRD) Non-Af 57 L, BUN/Creatinine Ratio 24.8 H, Glucose 125 H, Calcium 9.1 Micro: Microbiology 01/12/25 08:40 Stool Stool Occult Blood (REUBEN) - Final Occult Blood Positive Social Homelessness:: Sheltered Physical Exam Const alert, oriented x3 and no apparent distress Resp Resp Narrative: few coarse crackles in the left base initially that resolved after a couple deepbreaths. He is clear on the R side. Cardio regular rate and regular rhythm Cardio Narrative: Some ectopics. 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 TheMM at the apex is short and high pitched. No diastolic MM. No gallop GI normal to inspection, nondistended, normoactive bowel sounds, soft to palpation and non-tender GI Narrative: No guarding with palpation. Extremity Extremity Narrative: No significant ankle edema today........YUNIER hose are in place Neuro CN's II-XII intact bilaterally and no focal motor deficits Psych cooperative and affect normal Appearance: appropriate Attitude: No agitated Assessment & Plan Assessment/Plan (1) Physical debility: (2) Fall: QUALIFIERS: Encounter type: subsequent encounter Qualified Code(s): W19.XXXD - Unspecified fall, subsequent encounter (3) Multiple rib fractures: QUALIFIERS: Encounter type: subsequent encounter Fracture type: closed Laterality: bilateral Qualified Code(s): S22.43XD - Multiple fractures of ribs, bilateral, subsequent encounter for fracture with routine healing (4) Uncontrolled pain: (5) Chronic renal failure, stage 3a: (6) Chronic constipation: (7) (HFpEF) heart failure with preserved ejection fraction: QUALIFIERS: Heart failure chronicity: chronic Qualified Code(s): I50.32 - Chronic diastolic (congestive) heart failure (8) Pulmonary hypertension: (9) AF (paroxysmal atrial fibrillation): (10) Aortic valve stenosis, nonrheumatic: (11) GERD (gastroesophageal reflux disease): QUALIFIERS: Esophagitis presence: without esophagitis Qualified Code(s): K21.9 - Gastro-esophageal reflux disease without esophagitis (12) Class II obesity: (13) Venous insufficiency (chronic) (peripheral): (14) Heme positive stool: (15) Hemorrhoids: QUALIFIERS: Hemorrhoid type: unspecified Qualified Code(s): K64.9- Unspecified hemorrhoids (16) Thrombocytopenia: (17) Essential hypertension: PLAN: Plan 1. Continue therapy 2. No changes to the drug regimen today. 3. Voiding trial on 4. May be able to DC tizanidine in the next couple days. Charges/Coding Visit Charges Inpatient E&M: 15305 [facility] Hosp L1 01/22/25 1152 Mallory Baum DO Cosigner Signature (if applicable): CC: ~ Signed [facility]07-28-2025 Progress note Author [facility] Note Date/Time January 21, 2025 3:04 pm [facility] Medical Records Department [address] [place] [address] Progress Note 01/21/25 1009 MR#: [id number] Acct: [id number] Name: BENJIE MILES Rep #:[id number] : 1935 89 From: Mallory Baum DO PCP: Dr. Kaiser Pan MD Status:ADM I N Location: [place] [address] Subjective Subjective Bill was seen on TEAM rounds today. Son and granddaughter were present in the room. All questions were answered to their satisfaction. - Afebrile VSS -blood pressure is not adequately controlled. The blood pressures over the past 48 hours have ranged from 100/50 to 162/89. Heart rate is ranged from 61-94. Maintaining appropriate oxygen saturation on RA Oral intake - FOOD. Good FLUIDS fair Has been incontinent of both urine and stool. Discussed with nursing - Apparently had a PVR of 500 and was straight cath'd last night. UA was sent. UA had no WBC's and no bacteria. He is taking Flomax0.4 mg daily. He had a PVR of 400 today and he is having urinary urgency. Denies dysuria. Rare cough. Tells me that his pain is a 3 and tolerable. He is c/o dizziness....not vertigo, when he first goes from lying down in the AM to sitting up. He has had this for years and it has not changed. He is on Flomax. Orthostatics today were negative. Reviewed the THERAPY notes - had a LOB today when hurrying to get to the BR to urinate. He did not have a fall....the therapist had a hold of his gait belt. Medication list reviewed. Denies shortness of breath, substernal CP, hemoptysis, Nausea/vomiting. Objective Data Objective Data Vital Signs: Vital Signs Temp Pulse Resp BP Pulse Ox O2 Del Method FiO2 97.2 F L 94 16 126/91 H 97 Room Air 21 01/21/25 08:20 01/21/25 08:20 01/21/25 08:20 01/21/25 08:20 01/21/25 08:20 01/21/25 08:20 01/15/25 15:10 Oxygen Delivery Method Room Air Weight: 253 lb 4.978 oz Body Mass Index (BMI) 37.5 Intake & Output: Intake and Output for Last 24 Hours 01/19/25 01/20/25 01/21/25 23:59 23:59 23:59 Intake Total 1240 / 1240 1120 / 1120 920 / 920 Output Total 925 / 1125 1060 / 1060 205 / 205 Balance 315 / 115 60 / 60 715 / 715 Lab / Micro Data 01/17/25 05:39 01/17/25 05:39 Labs: Laboratory Results - last 24 hr 01/20/25 20:35: Urine Color Yellow, Urine Clarity Clear, Urine pH 6.0, Ur Specific [place] 1.010, Urine Protein Negative, Urine Glucose (UA) Normal, UrineKetones Negative, Urine Occult Blood Negative, Urine Nitrite Negative, Urine Bilirubin Negative, Urine Urobilinogen Normal, Ur Leukocyte Esterase Negative, Urine RBC 0 SEEN, Urine WBC 0 SEEN, Ur Squamous Epith Cells 0 SEEN, Urine Bacteria 0 SEEN, Urine Mucus 0 SEEN Micro: Microbiology 01/12/25 08:40 Stool Stool Occult Blood (REUBEN) - Final Occult Blood Positive Social Homelessness:: Sheltered Physical Exam Const alert, oriented x3 and no apparent distress Constitutional Narrative: Sitting at the bedside having orthostatics done when I examined him. He did notappear to be in any distress. He denied feeling lightheaded. General Appearance: cooperative HEENT Mouth: dry mucous membranes Resp Resp Narrative: few coarse crackles in the left base initially that resolved after a couple deepbreaths. He is clear on the R side. Cardio regular rate and regular rhythm Cardio Narrative: Some ectopics. 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 The MM at the apex is short and high pitched. No diastolic MM. No gallop GI normal to inspection, nondistended, normoactive bowel sounds, soft to palpation and non-tender GI Narrative: No guarding with palpation. Extremity Extremity Narrative: No significant ankle edema today........YUNIER hose are in place Assessment & Plan Assessment/Plan (1) Physical debility: (2) Fall: QUALIFIERS: Encounter type: subsequent encounter Qualified Code(s): W19.XXXD - Unspecified fall, subsequent encounter (3) Multiple rib fractures: QUALIFIERS: Encounter type: subsequent encounter Fracture type: closed Laterality: bilateral Qualified Code(s): S22.43XD - Multiple fractures of ribs, bilateral, subsequent encounter for fracture with routine healing (4) Uncontrolled pain: (5) Chronic renal failure, stage 3a: (6) Chronic constipation: (7) (HFpEF) heart failure with preserved ejection fraction: QUALIFIERS: Heart failure chronicity: chronic Qualified Code(s): I50.32 - Chronic diastolic (congestive) heart failure (8) Pulmonary hypertension: (9) AF (paroxysmal atrial fibrillation): (10) Aortic valve stenosis, nonrheumatic: (11) GERD (gastroesophageal reflux disease): QUALIFIERS: Esophagitis presence: without esophagitis Qualified Code(s): K21.9 - Gastro-esophageal reflux disease without esophagitis (12) Class II obesity: (13) Venous insufficiency (chronic) (peripheral): (14) Heme positive stool: (15) Hemorrhoids: QUALIFIERS: Hemorrhoid type: unspecified Qualified Code(s): K64.9- Unspecified hemorrhoids (16) Thrombocytopenia: (17) Essential hypertension: PLAN: Plan 1. Continue therapy 2. Check postvoid residuals after each urination for the next 48 hours......he is persistently retaining.....will put in a Don and try and decrease narcotic use. May need to increase the Flomax but, hold off to see if decreasing the narcotic helps with the urine retention because he was not retaining at admission to rehab. 3. Decrease tizanidine to 2 mg p.o. every 12 hours 4. Change the oxycodone during the day to as needed 5. Decrease the oxycodone at at bedtime to 5 mg 6. Check orthostatics today - they were negative 7. Change the MiraLAX to as needed but continue senna 2 tabs twice daily 8. BMP and CBC in a.m. 9. Hold Furosemide. I reviewed the last cardiology note and he is supposed danny taking it PRN. Ankle edema is gone now and he is wearing compression stockings. bEven though the orthostatics are negative clinically he is dehydrated. Encouraged him to increase his fluid intake. Urine retention may be due to narcotics. PVR's early in the admission were good. May need a stay in SNF at [place] from rehab.......depends on how is doing with pain when the Oxycodone is only PRN and if he will continue to retain urine. Charges/Coding Visit Charges Inpatient E&M: 90799 Subs Hosp L2 01/21/25 1501 <Electronically signed by Mallory Baum DO> Mallory Baum DO Cosigner Signature (if applicable): CC: ~ Signed [facility] Work Phone: [phone]) [phone] Progress note [facility] Medical Records Department [address] [place] [address] Progress Note 01/21/25 1009 MR#: [id number] Acct: [id number] Name: BENJIE MILES Rep #:[id number] : 1935 89 From: Mallory Baum DO PCP: Dr. Kaiser Pan MD Status:ADM I N Location: [place] [address] Subjective Subjective Bill was seen on TEAM rounds today. Son and granddaughter were present in the room. All questions were answered to their satisfaction. - Afebrile VSS -blood pressure is not adequately controlled. The blood pressures over the past 48 hours have ranged from 100/50 to 162/89. Heart rate is ranged from 61-94. Maintaining appropriate oxygen saturation on RA Oral intake - FOOD. Good FLUIDS fair Has been incontinent of both urine and stool. Discussed with nursing - Apparently had a PVR of 500 and was straight cath'd last night. UA was sent. UA had no WBC's and no bacteria. He is taking Flomax0.4 mg daily. He had a PVR of 400 today and he is having urinary urgency. Denies dysuria. Rare cough. Tells me that his pain is a 3 and tolerable. He is c/o dizziness....not vertigo, when he first goes from lying down in the AM to sitting up. He has had this for years and it has not changed. He is on Flomax. Orthostatics today were negative. Reviewed the THERAPY notes - had a LOB today when hurrying to get to the BR to urinate. He did not have a fall....the therapist had a hold of his gait belt. Medication list reviewed. Denies shortness of breath, substernal CP, hemoptysis, Nausea/vomiting. Objective Data Objective Data Vital Signs: Vital Signs Temp Pulse Resp BP Pulse Ox O2 Del Method FiO2 97.2 F L 94 16 126/91 H 97 Room Air 21 01/21/25 08:20 01/21/25 08:20 01/21/25 08:20 01/21/25 08:20 01/21/25 08:20 01/21/25 08:20 01/15/25 15:10 Oxygen Delivery Method Room Air Weight: 253 lb 4.978 oz Body Mass Index (BMI) 37.5 Intake & Output: Intake and Output for Last 24 Hours 01/19/25 01/20/25 01/21/25 23:59 23:59 23:59 Intake Total 1240 / 1240 1120 / 1120 920 / 920 Output Total 925 / 1125 1060 / 1060 205 / 205 Balance 315 / 115 60 / 60 715 / 715 Lab / Micro Data 01/17/25 05:39 01/17/25 05:39 Labs: Laboratory Results - last 24 hr 01/20/25 20:35: Urine Color Yellow, Urine Clarity Clear, Urine pH 6.0, Ur Specific [place] 1.010, Urine Protein Negative, Urine Glucose (UA) Normal, UrineKetones Negative, Urine Occult Blood Negative, Urine Nitrite Negative, Urine Bilirubin Negative, Urine Urobilinogen Normal, Ur Leukocyte Esterase Negative, Urine RBC 0 SEEN, Urine WBC 0 SEEN, Ur Squamous Epith Cells 0 SEEN, Urine Bacteria 0 SEEN, Urine Mucus 0 SEEN Micro: Microbiology 01/12/25 08:40 Stool Stool Occult Blood (REUBEN) - Final Occult Blood Positive Social Homelessness:: Sheltered Physical Exam Const alert, oriented x3 and no apparent distress Constitutional Narrative: Sitting at the bedside having orthostatics done when I examined him. He did notappear to be in any distress. He denied feeling lightheaded. General Appearance: cooperative HEENT Mouth: dry mucous membranes Resp Resp Narrative: few coarse crackles in the left base initially that resolved after a couple deepbreaths. He is clear on the R side. Cardio regular rate and regular rhythm Cardio Narrative: Some ectopics. 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 TheMM at the apex is short and high pitched. No diastolic MM. No gallop GI normal to inspection, nondistended, normoactive bowel sounds, soft to palpation and non-tender GI Narrative: No guarding with palpation. Extremity Extremity Narrative: No significant ankle edema today........YUNIER hose are in place Assessment & Plan Assessment/Plan (1) Physical debility: (2) Fall: QUALIFIERS: Encounter type: subsequent encounter Qualified Code(s): W19.XXXD - Unspecified fall, subsequent encounter (3) Multiple rib fractures: QUALIFIERS: Encounter type: subsequent encounter Fracture type: closed Laterality: bilateral Qualified Code(s): S22.43XD - Multiple fractures of ribs, bilateral, subsequent encounter for fracture with routine healing (4) Uncontrolled pain: (5) Chronic renal failure, stage 3a: (6) Chronic constipation: (7) (HFpEF) heart failure with preserved ejection fraction: QUALIFIERS: Heart failure chronicity: chronic Qualified Code(s): I50.32 - Chronic diastolic (congestive) heart failure (8) Pulmonary hypertension: (9) AF (paroxysmal atrial fibrillation): (10) Aortic valve stenosis, nonrheumatic: (11) GERD (gastroesophageal reflux disease): QUALIFIERS: Esophagitis presence: without esophagitis Qualified Code(s): K21.9 - Gastro-esophageal reflux disease without esophagitis (12) Class II obesity: (13) Venous insufficiency (chronic) (peripheral): (14) Heme positive stool: (15) Hemorrhoids: QUALIFIERS: Hemorrhoid type: unspecified Qualified Code(s): K64.9- Unspecified hemorrhoids (16) Thrombocytopenia: (17) Essential hypertension: PLAN: Plan 1. Continue therapy 2. Check postvoid residuals after each urination for the next 48 hours......he is persistently retaining.....will put in a Don and try and decrease narcotic use. May need to increase the Flomax but, hold off to see if decreasing the narcotic helps with the urine retention because he was not retaining at admission to rehab. 3. Decrease tizanidine to 2 mg p.o. every 12 hours 4. Change the oxycodone during the day to as needed 5. Decrease the oxycodone at at bedtime to 5 mg 6. Check orthostatics today - they were negative 7. Change the MiraLAX to as needed but continue senna 2 tabs twice daily 8. BMP and CBC in a.m. 9. Hold Furosemide. I reviewed the last cardiology note and he is supposed danny taking it PRN. Ankle edema is gone now and he is wearing compression stockings. bEven though the orthostatics are negative clinically he is dehydrated. Encouraged him to increase his fluid intake. Urine retention may be due to narcotics. PVR's early in the admission were good. May need a stay in SNF [place] from [place].......depends on how is doing with pain when the Oxycodone is only PRN and if he will continue to retain urine. Charges/Coding Visit Charges Inpatient E&M: 08507 Subs Hosp L2 01/21/25 1504 Mallory Baum DO Cosigner Signature (if applicable): CC: ~ Signed [facility]07-23-2025 Consult note Author Ludin Brewer [facility] Note Date/Time January 16, 2025 8:13 pm [facility] Medical Records Department [address] [place] [address] Anesthesia Postop Eval II 01/16/252005 MR#: [id number] Acct: [id number] Name: BENJIE MILES Rep #:[id number] : 1935 89 From: Ludin Brewer MD PCP: Dr. Kaiser Pan MD Status:ADM I N Y Race: C Location: [place] [address] Anesthesia Postop Eval I Sum Postop Eval Completion status Anesthesia document: Postop Eval 1 completed: Yes Anesthesia Postop Eval I Summary Anesthesia Postop Eval I Summary: Anesthesia Postop Eval I: Assessment Summary Airway patent Yes 01/15/25 17:04 [employer] Spontaneous unlabored Yes 01/15/25 17:04 [employer] respirations Mental status Awake,Calm 01/15/25 17:04 [employer] nausea No 01/15/25 17:04 [employer] Vomiting No 01/15/25 17:04 [employer].SHOF Anesthesia Postop Eval I: Fluid Summary Crystalloid volume administer 400 01/15/25 17:04 [employer].SHOF (ml) Colloids volume administered ( ml) Blood Product volume administered (ml) Total IV fluid infused 400 01/15/25 17:04 [employer].SHOF Anesthesia Postop Eval I: Summary Notes Anesthesia Complication No 01/15/25 17:04 [employer].SHOF Anesthesia Complication Comment: Post-operative progress note Anesthesia: Postop Eval II Evaluation Mental status: Awake and Calm Pain Level: 2 nausea: No Vomiting: No Complications Anesthesia Complication: No 01/16/252012 <Electronically signed by Ludin johnson MD> Date _ Ludin Brewer MD Cosigner Signature: Date CC: ~ Signed [facility] Work Phone: 1(302) 687-906307-23-2025 Consult note [facility] Medical Records Department [address] [place] [address] [place] [address] Anesthesia Postop Eval II 01/16/252005 MR#: [id number] Acct: [id number] Name: BENJIE MILES Rep #:[id number] : 1935 89 From: Ludin Brewer MD PCP: Dr. Kaiser Pan MD Status:ADM I N Y Race: C Location: [place] [address] Anesthesia Postop Eval I Sum Postop Eval Completion status Anesthesia document: Postop Eval 1 completed: Yes Anesthesia Postop Eval I Summary Anesthesia Postop Eval I Summary: Anesthesia Postop Eval I: Assessment Summary Airway patent Yes 01/15/25 17:04 [employer].SHOF Spontaneous unlabored Yes 01/15/25 17:04 [employer].SHOF respirations Mental status Awake,Calm 01/15/25 17:04 [employer].SHOF nausea No 01/15/25 17:04 [employer]OF Vomiting No 01/15/25 17:04 [employer].SHOF Anesthesia Postop Eval I: Fluid Summary Crystalloid volume administer 400 01/15/25 17:04 [employer].SHOF (ml) Colloids volume administered ( ml) Blood Product volume administered (ml) Total IV fluid infused 400 01/15/25 17:04 [employer].SHOF Anesthesia Postop Eval I: Summary Notes Anesthesia Complication No 01/15/25 17:04 [employer].SHOF Anesthesia Complication Comment: Post-operative progress note Anesthesia: Postop Eval II Evaluation Mental status: Awake and Calm Pain Level: 2 nausea: No Vomiting: No Complications Anesthesia Complication: No 01/16/252012 alex HERNANDEZ> Date _ Ludin Brewer MD Cosigner Signature: Date CC: ~ Signed [facility]07-23-2025 Progress note Author Mallory Baum [facility] Note Date/Time January 16, 2025 12:1 9pm [facility] Medical Records Department [address] [place] [address] Progress Note 01/16/25 1159 MR#: [id number] Acct: [id number] Name: BENJIE MILES Rep #:[id number] : 1935 89 From: Mallory Baum DO PCP: Dr. Kaiser Pan MD Status:ADM I N Location: [place] [address] Subjective Subjective Afebrile Blood pressure is a little high this morning at 161/77 however this is an outlier and generally it is adequately controlled. Maintaining appropriate oxygen saturation on room air 3 BM's yesterday and 2 today. Denies abd pain. Eating 75-100% of all his meals. Oral fluid intake yesterday was 1530. Tells me that his pain in the right ribs is much better today. He still has soreness and we once again told him that the goal is not to have the pain go totally away but, to have it be controlled to the point where he is able to do therapy, sleep well at night and be tolerable. Denies cough today and also denies SOB. Has been using the IS. Still having occasional nausea related to Oxycodone. ALert, NAD, sitting in the recliner at the bedside. No grimacing. Lungs - few coarse crackles in the bases initially but, cleared completely aftera few deep breaths. HRRR, no gallop Has compressions stockings on today No calf pain. Objective Data Objective Data Vital Signs: Vital Signs Temp Pulse Resp BP Pulse Ox O2 Del Method FiO2 97.5 F L 74 15 161/77 H 95 Room Air 21 01/16/25 06:00 01/16/25 06:00 01/16/25 06:00 01/16/25 06:00 01/16/25 06:00 01/16/25 06:00 01/15/25 15:10 Oxygen Delivery Method Room Air Weight: 253 lb 4.978 oz Body Mass Index (BMI) 37.5 Intake & Output: Intake and Output for Last 24 Hours 01/14/25 01/15/25 01/16/25 23:59 23:59 23:59 Intake Total 1740 / 1740 1530 / 1530 879 / 879 Output Total 1200 / 1200 1000 / 1000 600 / 600 Balance 540 / 540 530 / 530 279 / 279 Lab / Micro Data 01/11/25 12:36 01/11/25 12:36 Micro: Microbiology 01/12/25 08:40 Stool Stool Occult Blood (REUBEN) - Final Occult Blood Positive Radiography Diagnostic Testing: Radiology Impression Therapeutic Steroid Injection 01/15/25 12:00 IMPRESSION: Intraoperative/procedural fluoroscopy as above. Reading Location: [id number] Therapeutic Steroid Injection 01/15/25 12:00 IMPRESSION: Intraoperative/procedural fluoroscopy as above. Reading Location: [id number] Therapeutic Steroid Injection 01/15/25 12:00 IMPRESSION: Intraoperative/procedural fluoroscopy as above. Reading Location: [id number] Thoracic Spine X-Ray 01/15/25 12:00 IMPRESSION: Intraoperative/procedural fluoroscopy as above. Reading Location: [facility] Social Homelessness:: Sheltered Assessment & Plan Assessment/Plan (1) Physical debility: (2) Fall: QUALIFIERS: Encounter type: subsequent encounter Qualified Code(s): W19.XXXD - Unspecified fall, subsequent encounter (3) Multiple rib fractures: QUALIFIERS: Encounter type: subsequent encounter Fracture type: closed Laterality: bilateral Qualified Code(s): S22.43XD - Multiple fractures of ribs, bilateral, subsequent encounter for fracture with routine healing (4) Uncontrolled pain: (5) Chronic renal failure, stage 3a: (6) Chronic constipation: (7) (HFpEF) heart failure with preserved ejection fraction: QUALIFIERS: Heart failure chronicity: chronic Qualified Code(s): I50.32 - Chronic diastolic (congestive) heart failure PLAN: vs leg edema due to chronic venous insufficiency + pulmonary HTN. (8) Pulmonary hypertension: PLAN: The right ventricular systolic pressure in July 2023 was estimated at 36 which is only mild pulmonary hypertension. (9) AF (paroxysmal atrial fibrillation): PLAN: Not on an anticoagulant. Has had ablations in the past....... 2004 and 2006 at [facility]. Twelve-lead EKG on 01/20/2024 at the cardiology office showed normal sinus rhythm with a first-degree AV block at a rate of 75. He has declined anticoagulation in the past. He is not on a rate limiting medication. (10) Aortic valve stenosis, nonrheumatic: PLAN: moderate on ECHO in 2023...... valve area was 1 cm?. (11) GERD (gastroesophageal reflux disease): QUALIFIERS: Esophagitis presence: without esophagitis Qualified Code(s): K21.9 - Gastro-esophageal reflux disease without esophagitis (12) Class II obesity: (13) Venous insufficiency (chronic) (peripheral): (14) Heme positive stool: (15) Hemorrhoids: QUALIFIERS: Hemorrhoid type: unspecified Qualified Code(s): K64.9- Unspecified hemorrhoids (16) Thrombocytopenia: (17) Essential hypertension: PLAN: Plan 1. Continue therapy 2. Discontinue lidocaine patches because they have not been helpful 3. Start to taper oxycodone since pain control is better after the intercostal block 4. Decrease MiraLAX to once daily 5. Lab ordered for the a.m. 6. BP's are often mildly elevated. He is not on an antihypertensive. He has moderate . Will add a low dose of an MARIO. Charges/Coding Visit Charges Inpatient E&M: 70984 Subs Hosp L1 01/16/25 1219 <Electronically signed by Mallory Baum DO> Mallory Baum DO Cosigner Signature (if applicable): CC: ~ Signed [facility] Work Phone: 1(685) [phone] Progress note [facility] Medical Records Department [address] [place] [address] Progress Note 01/16/25 1159 MR#: [id number] Acct: [id number] Name: BENJIE MILES Rep #:[id number] : 1935 89 From: Mallory Baum DO PCP: Dr. Kaiser Pan MD Status:ADM I N Location: [place] [address] Subjective Subjective Afebrile Blood pressure is a little high this morning at 161/77 however this is an outlier and generally it is adequately controlled. Maintaining appropriate oxygen saturation on room air 3 BM's yesterday and 2 today. Denies abd pain. Eating 75-100% of all his meals. Oral fluid intake yesterday was 1530. Tells me that his pain in the right ribs is much better today. He still has soreness and we once again told him that the goal is not to have the pain go totally away but, to have it be controlled to the point where he is able to do therapy, sleep well at night and be tolerable. Denies cough todayand also denies SOB. Has been using the IS. Still having occasional nausea related to Oxycodone. ALert, NAD, sitting in the recliner at the bedside. No grimacing. Lungs - few coarse crackles in the bases initially but, cleared completely aftera few deep breaths. HRRR, no gallop Has compressions stockings on today No calf pain. Objective Data Objective Data Vital Signs: Vital Signs Temp Pulse Resp BP Pulse Ox O2 Del Method FiO2 97.5 F L 74 15 161/77 H 95 Room Air 21 01/16/25 06:00 01/16/25 06:00 01/16/25 06:00 01/16/25 06:00 01/16/25 06:00 01/16/25 06:00 01/15/25 15:10 Oxygen Delivery Method Room Air Weight: 253 lb 4.978 oz Body Mass Index (BMI) 37.5 Intake & Output: Intake and Output for Last 24 Hours 01/14/25 01/15/25 01/16/25 23:59 23:59 23:59 Intake Total 1740 / 1740 1530 / 1530 879 / 879 Output Total 1200 / 1200 1000 / 1000 600 / 600 Balance 540 / 540 530 / 530 279 / 279 Lab / Micro Data 01/11/25 12:36 01/11/25 12:36 Micro: Microbiology 01/12/25 08:40 Stool Stool Occult Blood (REUBEN) - Final Occult Blood Positive Radiography Diagnostic Testing: Radiology Impression Therapeutic Steroid Injection 01/15/25 12:00 IMPRESSION: Intraoperative/procedural fluoroscopy as above. Reading Location: [id number] Therapeutic Steroid Injection 01/15/25 12:00 IMPRESSION: Intraoperative/procedural fluoroscopy as above. Reading Location: [id number] Therapeutic Steroid Injection 01/15/25 12:00 IMPRESSION: Intraoperative/procedural fluoroscopy as above. Reading Location: [facility] Thoracic Spine X-Ray 01/15/25 12:00 IMPRESSION: Intraoperative/procedural fluoroscopy as above. Reading Location: [facility] Social Homelessness:: Sheltered Assessment & Plan Assessment/Plan (1) Physical debility: (2) Fall: QUALIFIERS: Encounter type: subsequent encounter Qualified Code(s): W19.XXXD - Unspecified fall, subsequent encounter (3) Multiple rib fractures: QUALIFIERS: Encounter type: subsequent encounter Fracture type: closed Laterality: bilateral Qualified Code(s): S22.43XD - Multiple fractures of ribs, bilateral, subsequent encounter for fracture with routine healing (4) Uncontrolled pain: (5) Chronic renal failure, stage 3a: (6) Chronic constipation: (7) (HFpEF) heart failure with preserved ejection fraction: QUALIFIERS: Heart failure chronicity: chronic Qualified Code(s): I50.32 - Chronic diastolic (congestive) heart failure PLAN: vs leg edema due to chronic venous insufficiency + pulmonary HTN. (8) Pulmonary hypertension: PLAN: The right ventricular systolic pressure in July 2023 was estimated at 36 which is only mild pulmonary hypertension. (9) AF (paroxysmal atrial fibrillation): PLAN: Not on an anticoagulant. Has had ablations in the past....... 2004 and 2006 at [facility]. Twelve-lead EKG on 01/20/2024 at the cardiology office showed normal sinus rhythm with a first-degree AV blockat a rate of 75. He has declined anticoagulation in the past. He is not on a rate limiting medication. (10) Aortic valve stenosis, nonrheumatic: PLAN: moderate on ECHO in 2023...... valve area was 1 cm?. (11) GERD (gastroesophageal reflux disease): QUALIFIERS: Esophagitis presence: without esophagitis Qualified Code(s): K21.9 - Gastro-esophageal reflux disease without esophagitis (12) Class II obesity: (13) Venous insufficiency (chronic) (peripheral): (14) Heme positive stool: (15) Hemorrhoids: QUALIFIERS: Hemorrhoid type: unspecified Qualified Code(s): K64.9- Unspecified hemorrhoids (16) Thrombocytopenia: (17) Essential hypertension: PLAN: Plan 1. Continue therapy 2. Discontinue lidocaine patches because they have not been helpful 3. Start to taper oxycodone since pain control is better after the intercostal block 4. Decrease MiraLAX to once daily 5. Lab ordered for the a.m. 6. BP's are often mildly elevated. He is not on an antihypertensive. He has moderate . Will add alow dose of an MARIO. Charges/Coding Visit Charges Inpatient E&M: 24390 Subs Hosp L1 01/16/25 1219 Mallory Baum DO Cosigner Signature (if applicable): CC: ~ Signed [facility]07-22-2025 Radiology Diagnostic study note [facility] Imaging Services [address] [place] [address] Thoracic Spine 2 Views MR#: [id number] Acct: [id number] Name: BENJIE MILES Rep #: [id number] : 1935 M 89 From: Eduardo Rose MD PCP: Dr. Kaiser Pan MD Status: ADM I N Study:Thoracic Spine 2 Views Date of Exam: 01/15/25 Exam# [id number] Ordering Dr: Kendall Mantilla MD EXAM: INTRAOPERATIVE FLUOROSCOPY CLINICAL HISTORY: INTERCOSTAL BLOCK 8 9 10 COMPARISON: Right ankle radiographs from 08/18/2014 TECHNIQUE: 5 intraoperative fluoroscopy spot images are submitted for review. FINDINGS: Intraoperative fluoroscopy status post thoracic intercostal nerve block at T8, T9, T10. Total fluoroscopy time 28.5 seconds. Total radiation dose 22.07 mGy. RAD/Thoracic Spine 2 Views IMPRESSION: Intraoperative/procedural fluoroscopy as above. Reading Location: [id number] CC: Dr. Kolby Mantilla MD; Dr. Kaiser Pan MD ~ Checkering Machine Operator: Signed [facility]07-22-2025 Radiology Diagnostic study note [facility] Imaging Services [address] [place], [place] [id number] OR-Steroid Inj/Cer Thor/3rd L MR#: [id number] Acct: [id number] Name: BENJIE MILES Rep #: [id number] : 1935 89 From: Eduardo Rose MD PCP: Dr. Kaiser Pan MD Status: ADM I N Study:OR-Steroid Inj/Cer Thor/3rd L Date of E xam: 01/15/25 Exam# [id number] Ordering Dr: Kendall Mantilla MD EXAM: INTRAOPERATIVE FLUOROSCOPY CLINICAL HISTORY: INTERCOSTAL BLOCK 8 9 10 COMPARISON: Right ankle radiographs from 08/18/2014 TECHNIQUE: 5 intraoperative fluoroscopy spot images are submitted for review. FINDINGS: Intraoperative fluoroscopy status post thoracic intercostal nerve block at T8, T9, T10. Total fluoroscopy time 28.5 seconds. Total radiation dose 22.07 mGy. RAD/OR-Steroid Inj/Cer Thor/3rd L IMPRESSION: Intraoperative/procedural fluoroscopy as above. Reading Location: [id number] CC: Dr. Kolby Mantilla MD; Dr. Kaiser Pan MD ~ Checkering Machine Operator: Signed [facility]07-22-2025 Radiology Diagnostic study note [facility] Imaging Services [address] [place] [address] OR-Steroid Inj/Cer Thor/1st L MR#: [id number] Acct: [id number] Name: BENJIE MILES Rep #: [id number] : 1935 89 From: Eduardo Rose MD PCP: Dr. Kaiser Pan MD Status: ADM I N Study:OR-Steroid Inj/Cer Thor/1st L Date of E xam: 01/15/25 Exam# [id number] Ordering Dr: Kendall Mantilla MD EXAM: INTRAOPERATIVE FLUOROSCOPY CLINICAL HISTORY: INTERCOSTAL BLOCK 8 9 10 COMPARISON: Right ankle radiographs from 08/18/2014 TECHNIQUE: 5 intraoperative fluoroscopy spot images are submitted for review. FINDINGS: Intraoperative fluoroscopy status post thoracic intercostal nerve block at T8, T9, T10. Total fluoroscopy time 28.5 seconds. Total radiation dose 22.07 mGy. RAD/OR-Steroid Inj/Cer Thor/1st L IMPRESSION: Intraoperative/procedural fluoroscopy as above. Reading Location: [id number] CC: Dr. Kolby Mantilla MD; Dr. Kaiser Pan MD ~ Checkering Machine Operator: Signed [facility]07-22-2025 Radiology Diagnostic study note [facility] Imaging Services [address] [place] [address] OR-Steroid Inj/Cer Thor/2nd L MR#: [id number] Acct: [id number] Name: BENJIE MILES Rep #: [id number] : 1935 M 89 From: Eduardo Rose MD PCP: Dr. Kaiser Pan MD Status: ADM I N Study:OR-Steroid Inj/Cer Thor/2nd L Date of E xam: 01/15/25 Exam# [id number] Ordering Dr: Kendall Mantilla MD EXAM: INTRAOPERATIVE FLUOROSCOPY CLINICAL HISTORY: INTERCOSTAL BLOCK 8 9 10 COMPARISON: Right ankle radiographs from 08/18/2014 TECHNIQUE: 5 intraoperative fluoroscopy spot images are submitted for review. FINDINGS: Intraoperative fluoroscopy status post thoracic intercostal nerve block at T8, T9, T10. Total fluoroscopy time 28.5 seconds. Total radiation dose 22.07 mGy. RAD/OR-Steroid Inj/Cer Thor/2nd L IMPRESSION: Intraoperative/procedural fluoroscopy as above. Reading Location: [id number] CC: Dr. Kolby Mantilla MD; Dr. Kaiser Pan MD ~ Checkering Machine Operator: Signed [facility]07-22-2025 Consult note Author Mario Petit [facility] Note Date/Time January 15, 2025 5:04 pm [facility] Medical Records Department [address] [place] [address] Anesthesia Postop Eval I 01/15/25 1700 MR#: [id number] Acct: [id number] Name: BENJIE MILES Huma Rep #:[id number] : 1935 89 From: Mario Petit CRNA PCP: Dr. Kaiser Pan MD Status:ADM I N Y Race: C Location: [place] [address] Anesthesia: Postop Eval I Current Vital Signs Temperature: 98 F Pulse Rate: 68 Blood Pressure: 141/75 Respiratory Rate: 16 Pulse Ox: 98 Oxygen Delivery Method: Room Air Assessment Airway patent: Yes Spontaneous unlabored respirations: Yes Mental status: Awake and Calm nausea: No Vomiting: No Anesthesia Complication: No Fluid Hydration Crystalloid volume administer (ml): 400 Total IV fluid infused: 400 Progress Note Anesthesia document: Postop Eval 1 completed: Yes 01/15/251703 <Electronically signed by Mario huffman REGIONAL MARKETING MANAGER> Date _ Mario Petit REGIONAL MARKETING MANAGER Cosigner Signature: Date CC: ~ Signed [facility] Work Phone: 1(656) 548-988007-22-2025 Consult note Author Edmund [facility] Note Date/Time January 15, 2025 3:10 pm [facility] Medical Records Department [address] [place] [address] Pre-Anesthesia Evaluation 01/15/25 1505 MR#: [id number] Acct: [id number] Name: BENJIE MILES Huam Rep #:[id number] : 1935 89 From: Edmund Hogan PCP: Dr. Kaiser Pan MD Status:ADM I N Y Race: C Location: [place] [address] ASA Classification* ASA Classification ASA Classification: 3 Assessment & Plan Anesthesia* Anesthesia Assessment Anesthesia Assessment: Discussed sedation and/or anesthesia options, risks, benefits, and alternatives with patient/parents/legal guardian/POA. Questions invited. The patient/parents/legal guardian/POA seems to understand and agrees to proceedwith anesthesia plan. Reviewed the physical assessment, medical history, allergy history and patient home medications list prior to surgery/procedure/anesthetic and documented any changes. Performed airway and anesthesia risk assessments. Anesthesia Type Anesthesia Type: MAC History Source History Obtained from:: Patient and Chart Anesthesia Focused Assessment* Temperature: 97.9 F Pulse Rate: 92 Blood Pressure: 130/84 Respiratory Rate: 15 Pulse Ox: 94 Fraction of Inspired Oxygen (FIO2): 21 Airway Assessment Mouth opens: >3 cm Mallampati Score: III Labs Anesthesia Preop lab: CBC WBC 5.8 K/mm3 (4.4-11.0) 01/11/25 12:36 01/11/25 RBC 3.83 M/mm3 (4.6-6.2) L 01/11/25 12:36 01/11/25 Hgb 14.3 g/dL (13.0-16.5) 01/11/25 12:36 01/11/25 Hct 41.3 % (40-54) 01/11/25 12:36 01/11/25 Plt Count 114 K/mm3 (150-450) L 01/11/25 12:36 01/11/25 CHEMISTRY Potassium 4.0 mmol/L (3.3-5.1) 01/11/25 12:36 01/11/25 Sodium 140 mmol/L (133-145) 01/11/25 12:36 01/11/25 Magnesium 2.3 mg/dL (1.5-2.2) H 01/11/25 12:36 01/11/25 Phosphorus 3.5 mg/dL (2.7-4.5) 01/11/25 12:36 01/11/25 BUN 36 mg/dL (4-19) H 01/11/25 12:36 01/11/25 Creatinine 1.24 mg/dL (0.70-1.20) H 01/11/25 12:36 Glucose 116 mg/dL (70-99) H 01/11/25 12:36 01/11/25 TSH 1.960 uIU/mL (0.300-4.200) 11/13/24 14:44 05/ COAG PT 14.5 SECONDS (11.7-14.9) 01/20/24 10:50 Pre-Assessment Diagnosis/Proposed Procedure Planned Operative Procedure(s): Intercostal blocks for rib fracture. 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 When Was Last Pacemaker Check QUESTION #4 FULL TEXT: You/Your Family Experience fever (hyperthermia) with Anesthesia Last Oral Intake Last Oral intake: Last Oral Intake NPO since Meds taken in AM with sips of water? 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 Has anyone observed you stop breathing during sleep? STOP Results Positive 01/11/25 10:58 QUESTION #5 FULL TEXT : Do you snore loudly (louder than talking or can be heard through closed doors)? 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 Specify any problems Hx of Preganancy in last 3 N/A 01/11/25 10:58 Months Nurse Filling Out Transfusion JCOULSALIMA 01/11/25 10:58 & Questions: Date: 01/11/25 01/11/25 10:58 Time: 10:59 01/11/25 10:58 Patient unable to answer at this time (ie. 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 81 Mg Tablet PO 81 mg BREAKFAST IRENA Administration Bisacodyl 10 mg 01/11/25 10:49 01/13/25 06:17 Bisacodyl 10 Mg Suppository RC 10 mg X1 PRN Administration Constipation Calamine/Phenol 1 applic 01/11/25 22:00 01/15/25 07:59 Menthol/Lanolin/Calamine/Znox 113 Gm Tube TOPICAL 1 applic BID IRENA Administration Protocol Celecoxib 200 mg 01/12/25 10:00 01/15/25 07:54 Celecoxib 200 Mg Capsule PO 200 mg DAILY IRENA Administration Enoxaparin Sodium 40 mg 01/12/25 06:00 01/14/25 18:38 Enoxaparin 40 Mg/0.4 Ml Syringe SC Not Given DAILY@0600 IRENA Furosemide 40 mg 01/12/25 10:00 01/14/25 08:18 Furosemide 40 Mg Tablet PO Not Given DAILY IRENA Protocol Hydrocortisone Acetate 25 mg 01/12/25 11:05 Hydrocortisone 25 Mg Suppository RC BID PRN PRN HEMORRHOIDS Lactated Ringer's 1,000 mls @ 15 mls/hr 01/15/25 15:00 IV .Q48H IRENA Latanoprost 1 drp 01/11/25 22:00 01/14/25 21:28 Latanoprost 0.005% 1 Bottle OPHTHALMIC 1 drp QHS IRENA Administration Lidocaine 3 patch 01/14/25 22:00 01/14/25 21:31 Lidocaine 5% Patch TOPICAL 3 patch HS IRENA Administration Protocol Magnesium Hydroxide 30 ml 01/11/25 10:49 01/12/25 12:02 Magnesium Hydroxide 30 Ml Udc PO 30 ml X1 PRN Administration Constipation Multi-Ingredient Cream 1 applic 01/14/25 22:00 01/14/25 21:30 Petrolatum 33% Tube TOPICAL 1 applic QHS [facility] Administration Protocol Nitroglycerin 0.4 mg 01/11/25 10:49 Nitroglycerin (Inpatient Use) 0.4 Mg Tab.Subl SL Q5M PRN Chest Pain Ondansetron HCl 4 mg 01/14/25 15:01 01/15/25 09:50 Ondansetron Odt 4 Mg Tablet PO 4 mg Q6H PRN Administration NAUSEA/VOMITING Oxycodone HCl 5 mg 01/12/25 14:00 01/15/25 09:50 Oxycodone 5 Mg Tablet PO 5 mg 0600,1000,1400,1800 IRENA Administration Oxycodone HCl 10 mg 01/12/25 22:00 01/14/25 21:29 Oxycodone 5 Mg Tablet PO 10 mg QHS IRENA Administration Oxycodone HCl 0 mg 01/12/25 11:22 01/14/25 02:00 Oxycodone 5 Mg Tablet PO 5 mg Q4H PRN PRN Administration pain 5-10 Pantoprazole Sodium 40 mg 01/12/25 10:00 01/15/25 07:54 Pantoprazole Sodium 40 Mg Tablet PO 40 mg DAILY IRENA Administration Polyethylene Glycol 17 gm 01/12/25 10:50 01/15/25 07:54 Polyethylene Glycol 3350 17 Gm Packet PO 17 gm BID IRENA Administration Potassium Chloride 20 meq 01/12/25 08:00 01/15/25 07:54 Potassium Chloride Oral Tablet 20 Meq PO 20 meq DAILYCM IRENA Administration Ranolazine 1,000 mg 01/11/25 22:00 01/15/25 07:54 Ranolazine 500 Mg Tablet PO 1,000 mg Q12 IRENA Administration Saliva Substitute 15 ml 01/15/25 10:06 Saliva Substitute 237 Ml Bottle MUCOUS MEM 5X/DAY PRN DRY MOUTH Senna/Docusate Sodium 2 tablet 01/11/25 22:00 01/15/25 07:56 Senna/Docusate Sodium 1 Tablet PO 2 tablet BID IRENA Administration Sodium Chloride 10 - 40 ml 01/11/25 10:56 0.9% Saline Lock 10 Ml Syringe IV UD PRN SALINE FLUSH Sodium Chloride 10 - 40 ml 01/15/25 12:50 0.9% Saline Lock 10 Ml Syringe IV UD PRN SALINE FLUSH Tamsulosin HCl 0.4 mg 01/12/25 08:30 01/15/25 07:54 Tamsulosin Hcl 0.4 Mg Capsule PO 0.4 mg DAILY@0830 IRENA Administration Tizanidine HCl 4 mg 01/11/25 14:00 01/15/25 05:22 Tizanidine Hcl 2 Mg Tablet PO 4 mg Q8H IRENA Administration PFSH Medical History (Updated 01/15/25 @ 10:[address] Mallory Baum, DO) Thrombocytopenia Hemorrhoids Venous insufficiency (chronic) (peripheral) Class II obesity Chronic constipation Chronic renal failure, stage 3a Presbycusis of both ears Pulmonary hypertension (HFpEF) heart failure with preserved ejection fraction Dyslipidemia COVID-19 Aortic valve stenosis, nonrheumatic Coronary artery disease Hypokalemia Gastroesophageal reflux disease Benign prostate hyperplasia Debility Weakness Pressure injury of left buttock, stage 1 Stenosis, spinal, lumbar Neck pain Segmental and somatic dysfunction of thoracic region Segmental and somatic dysfunction of pelvic region Segmental and somatic dysfunction of lumbar region Segmental and somatic dysfunction of cervical region Degenerative disc disease, cervical Sleep apnea, obstructive Nonrheumatic aortic (valve) insufficiency Pure hypercholesterolemia Essential hypertension Neuropathic pain Hypokalemia GERD (gastroesophageal reflux disease) BPH (benign prostatic hyperplasia) Left trigger finger Left carpal tunnel syndrome Benign paroxysmal positional vertigo Fall Debility Laceration of head Dyspnea on exertion Prinzmetal angina CAD (coronary artery disease) Malignant pericardial effusion Atrial flutter Precordial chest pain History of percutaneous transluminal coronary angioplasty Abnormal result of cardiovascular function study, unspecified Pain in left shoulder Atherosclerosis of coronary artery bypass graft(s), unspecified, with other forms of angina pectoris Intermittent claudication Home Medications ?Medication ?Instructions ?Recorded ?Last Taken ?Type tamsulosin 0.4 mg capsule 0.4 mg PO DAILY URINE FLOW 0 03/06/16 01/19/24 History aspirin 81 mg tablet,delayed 81 mg PO DAILY heart heal th 07/04/18 01/19/24 History release (Marisela Low Dose Aspirin) omeprazole 40 mg capsule,delayed 40 mg PO DAILY acid r eflux 07/04/18 01/19/24 History release potassium chloride 20 mEq 20 meq PO DAILY supplement 0 07/04/18 01/19/24 History tablet,extended release multivitamin 1 tab PO DAILY 04/15/22/11/17 History furosemide 40 mg tablet 40 mg PO DAILY edema 3 01/19/24 History nitroglycerin 0.4 mg sublingual 0.4 mg sublingual Q5-1 5M PRN Chest 07/17/24 Unknown Rx tablet Pain #25 tabs ranolazine 1,000 mg 1,000 mg PO Q12H Heart 07/17 Unknown History tablet,extended release,12 hr hydrocodone-acetaminophen 5-325mg 1 tab PO Q6H PRN PRN Pain 3 days 01/10/25 01/11/25 Rx 5mg-325mg #10 TABLETS latanoprost 0.005 % eye drops 1 drp ophthalmic (eye) Q HS eye 01/11/25 Unknown History health Allergy/AdvReac Type Severity Reaction Status Date / Time tramadol (From Ultram) AdvReac Other Verified 01/10/25 10:15 Family History Father CAD (coronary artery disease) CHF (congestive heart failure) Mother Heart disease Brother Diabetes Cancer Hx of CABG CAD (coronary artery disease) Sister COPD (chronic obstructive pulmonary disease) Diabetes Surgical History (Updated 01/11/25 @ 13:[address] Mallory Baum DO) Status post total knee replacement, right H/O shoulder surgery History of carpal tunnel surgery History of bilateral knee replacement Hx of CABG (~05/2005) History of arthroscopy (~07/2011) H/O cardiac radiofrequency ablation (~10/2006) History of PTCA History of left heart catheterization (LHC) (~09/2007) Social History (Updated 01/11/25 @ 13:[address] Mallory Baum DO) household members: none housing: other details: lives in a converted garage at his son's house. number of children: 2 current occupational status: retired Smoking Status: Never smoker alcohol intake: never substance use type: does not use caffeine: No what type of physical activity do you participate in: none seatbelt use: always do you feel safe at home: Yes Homelessness:: Sheltered Review of Systems (Anesthesia) ROS Narrative System reviewed and no additional complaints, except as documented. 01/15/25 1510 <Electronically signed by Edmund Werner MD> Date _ Edmund Werner MD Cosigner Signature: Date CC: ~ Signed [facility] Work Phone: 1(988) 239-769107-22-2025 Consult note [facility] Medical Records Department [address] [place] [address] Anesthesia Postop Eval I 01/15/25 170 MR#: [id number] Acct: [id number] Name: BENJIE MILES Rep #:[id number] : 1935 89 From: Mario Petit REGIONAL MARKETING MANAGER PCP: Dr. Kaiser Pan MD Status:ADM I N Y Race: C Location: [place] [address] Anesthesia: Postop Eval I Current Vital Signs Temperature: 98 F Pulse Rate: 68 Blood Pressure: 141/75 Respiratory Rate: 16 Pulse Ox: 98 Oxygen Delivery Method: Room Air Assessment Airway patent: Yes Spontaneous unlabored respirations: Yes Mental status: Awake and Calm nausea: No Vomiting: No Anesthesia Complication: No Fluid Hydration Crystalloid volume administer (ml): 400 Total IV fluid infused: 400 Progress Note Anesthesia document: Postop Eval 1 completed: Yes 01/15/25 170 an REGIONAL MARKETING MANAGER> Date _ Mario Kennyigner Signature: Date CC: ~ Signed [facility]07-22-2025 Consult note [facility] Medical Records Department [address] [place] [address] Pre-Anesthesia Evaluation 01/15/25 1505 MR#: [id number] Acct: [id number] Name: BENJIE MILES Rep #:[id number] : 1935 89 From: Edmund Hogan PCP: Dr. Kaiser Pna MD Status:ADM I N Y Race: C Location: [place] [address] ASA Classification* ASA Classification ASA Classification: 3 Assessment & Plan Anesthesia* Anesthesia Assessment Anesthesia Assessment: Discussed sedation and/or anesthesia options, risks, benefits, and alternatives with patient/parents/legal guardian/POA. Questions invited. The patient/parents/legal guardian/POA seems to understand and agrees to proceedwith anesthesia plan. Reviewed the physical assessment, medical history, allergy history and patient home medications list prior to surgery/procedure/anesthetic and documented any changes. Performed airway and anesthesia risk assessments. Anesthesia Type Anesthesia Type: MAC History Source History Obtained from:: Patient and Chart Anesthesia Focused Assessment* Temperature: 97.9 F Pulse Rate: 92 Blood Pressure: 130/84 Respiratory Rate: 15 Pulse Ox: 94 Fraction of Inspired Oxygen (FIO2): 21 Airway Assessment Mouth opens: >3 cm Mallampati Score: III Labs Anesthesia Preop lab: CBC WBC 5.8 K/mm3 (4.4-11.0) 01/11/25 12:36 01/11/25 RBC 3.83 M/mm3 (4.6-6.2) L 01/11/25 12:36 01/11/25 Hgb 14.3 g/dL (13.0-16.5) 01/11/25 12:36 01/11/25 Hct 41.3 % (40-54) 01/11/25 12:36 01/11/25 Plt Count 114 K/mm3 (150-450) L 01/11/25 12:36 01/11/25 CHEMISTRY Potassium 4.0 mmol/L (3.3-5.1) 01/11/25 12:36 01/11/25 Sodium 140 mmol/L (133-145) 01/11/25 12:36 01/11/25 Magnesium 2.3 mg/dL (1.5-2.2) H 01/11/25 12:36 01/11/25 Phosphorus 3.5 mg/dL (2.7-4.5) 01/11/25 12:36 01/11/25 BUN 36 mg/dL (4-19) H 01/11/25 12:36 01/11/25 Creatinine 1.24 mg/dL (0.70-1.20) H 01/11/25 12:36 Glucose 116 mg/dL (70-99) H 01/11/25 12:36 01/11/25 TSH 1.960 uIU/mL (0.300-4.200) 11/13/24 14:44 05 COAG PT 14.5 SECONDS (11.7-14.9) 01/20/24 10:50 Pre-Assessment Diagnosis/Proposed Procedure Planned Operative Procedure(s): Intercostal blocks for rib fracture. 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 When Was Last Pacemaker Check QUESTION #4 FULL TEXT: You/Your Family Experience fever (hyperthermia) with Anesthesia Last Oral Intake Last Oral intake: Last Oral Intake NPO since Meds taken in AM with sips of water? 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 Has anyone observed you stop breathing during sleep? STOP Results Positive 01/11/25 10:58 QUESTION #5 FULL TEXT : Do you snore loudly (louder than talking or can be heard through closeddoors)? 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 Specify any problems Hx of Preganancy in last 3 N/A 01/11/25 10:58 Months Nurse Filling Out Transfusion JCOULTER 01/11/25 10:58 & Questions: Date: 01/11/25 01/11/25 10:58 Time: 10:59 01/11/25 10:58 Patient unable to answer at this time (ie. 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 81 Mg Tablet PO 81 mg BREAKFAST IRENA Administration Bisacodyl 10 mg 01/11/25 10:49 01/13/25 06:17 Bisacodyl 10 Mg Suppository RC 10 mg X1 PRN Administration Constipation Calamine/Phenol 1 applic 01/11/25 22:00 01/15/25 07:59 Menthol/Lanolin/Calamine/Znox 113 Gm Tube TOPICAL 1 applic BID IRENA Administration Protocol Celecoxib 200 mg 01/12/25 10:00 01/15/25 07:54 Celecoxib 200 Mg Capsule PO 200 mg DAILY IRENA Administration Enoxaparin Sodium 40 mg 01/12/25 06:00 01/14/25 18:38 Enoxaparin 40 Mg/0.4 Ml Syringe SC Not Given DAILY@0600 IRENA Furosemide 40 mg 01/12/25 10:00 01/14/25 08:18 Furosemide 40 Mg Tablet PO Not Given DAILY [facility] Protocol Hydrocortisone Acetate 25 mg 01/12/25 11:05 Hydrocortisone 25 Mg Suppository RC BID PRN PRN HEMORRHOIDS Lactated Ringer's 1,000 mls @ 15 mls/hr 01/15/25 15:00 IV .Q48H IRENA Latanoprost 1 drp 01/11/25 22:00 01/14/25 21:28 Latanoprost 0.005% 1 Bottle OPHTHALMIC 1 drp QHS IRENA Administration Lidocaine 3 patch 01/14/25 22:00 01/14/25 21:31 Lidocaine 5% Patch TOPICAL 3 patch HS IRENA Administration Protocol Magnesium Hydroxide 30 ml 01/11/25 10:49 01/12/25 12:02 Magnesium Hydroxide 30 Ml Udc PO 30 ml X1 PRN Administration Constipation Multi-Ingredient Cream 1 applic 01/14/25 22:00 01/14/25 21:30 Petrolatum 33% Tube TOPICAL 1 applic QHS [facility] Administration Protocol Nitroglycerin 0.4 mg 01/11/25 10:49 Nitroglycerin (Inpatient Use) 0.4 Mg Tab.Subl SL Q5M PRN Chest Pain Ondansetron HCl 4 mg 01/14/25 15:01 01/15/25 09:50 Ondansetron Odt 4 Mg Tablet PO 4 mg Q6H PRN Administration NAUSEA/VOMITING Oxycodone HCl 5 mg 01/12/25 14:00 01/15/25 09:50 Oxycodone 5 Mg Tablet PO 5 mg 0600,1000,1400,1800 IRENA Administration Oxycodone HCl 10 mg 01/12/25 22:00 01/14/25 21:29 Oxycodone 5 Mg Tablet PO 10 mg QHS IRENA Administration Oxycodone HCl 0 mg 01/12/25 11:22 01/14/25 02:00 Oxycodone 5 Mg Tablet PO 5 mg Q4H PRN PRN Administration pain 5-10 Pantoprazole Sodium 40 mg 01/12/25 10:00 01/15/25 07:54 Pantoprazole Sodium 40 Mg Tablet PO 40 mg DAILY IRENA Administration Polyethylene Glycol 17 gm 01/12/25 10:50 01/15/25 07:54 Polyethylene Glycol 3350 17 Gm Packet PO 17 gm BID IRENA Administration Potassium Chloride 20 meq 01/12/25 08:00 01/15/25 07:54 Potassium Chloride Oral Tablet 20 Meq PO 20 meq DAILYCM IRENA Administration Ranolazine 1,000 mg 01/11/25 22:00 01/15/25 07:54 Ranolazine 500 Mg Tablet PO 1,000 mg Q12 IRENA Administration Saliva Substitute 15 ml 01/15/25 10:06 Saliva Substitute 237 Ml Bottle MUCOUS MEM 5X/DAY PRN DRY MOUTH Senna/Docusate Sodium 2 tablet 01/11/25 22:00 01/15/25 07:56 Senna/Docusate Sodium 1 Tablet PO 2 tablet BID IRENA Administration Sodium Chloride 10 - 40 ml 01/11/25 10:56 0.9% Saline Lock 10 Ml Syringe IV UD PRN SALINE FLUSH Sodium Chloride 10 - 40 ml 01/15/25 12:50 0.9% Saline Lock 10 Ml Syringe IV UD PRN SALINE FLUSH Tamsulosin HCl 0.4 mg 01/12/25 08:30 01/15/25 07:54 Tamsulosin Hcl 0.4 Mg Capsule PO 0.4 mg DAILY@0830 IRENA Administration Tizanidine HCl 4 mg 01/11/25 14:00 01/15/25 05:22 Tizanidine Hcl 2 Mg Tablet PO 4 mg Q8H IRENA Administration PFSH Medical History (Updated 01/15/25 @ 10:[address] Mallory Baum, DO) Thrombocytopenia Hemorrhoids Venous insufficiency (chronic) (peripheral) Class II obesity Chronic constipation Chronic renal failure, stage 3a Presbycusis of both ears Pulmonary hypertension (HFpEF) heart failure with preserved ejection fraction Dyslipidemia COVID-19 Aortic valve stenosis, nonrheumatic Coronary artery disease Hypokalemia Gastroesophageal reflux disease Benign prostate hyperplasia Debility Weakness Pressure injury of left buttock, stage 1 Stenosis, spinal, lumbar Neck pain Segmental and somatic dysfunction of thoracic region Segmental and somatic dysfunction of pelvic region Segmental and somatic dysfunction of lumbar region Segmental and somatic dysfunction of cervical region Degenerative disc disease, cervical Sleep apnea, obstructive Nonrheumatic aortic (valve) insufficiency Pure hypercholesterolemia Essential hypertension Neuropathic pain Hypokalemia GERD (gastroesophageal reflux disease) BPH (benign prostatic hyperplasia) Left trigger finger Left carpal tunnel syndrome Benign paroxysmal positional vertigo Fall Debility Laceration of head Dyspnea on exertion Prinzmetal angina CAD (coronary artery disease) Malignant pericardial effusion Atrial flutter Precordial chest pain History of percutaneous transluminal coronary angioplasty Abnormal result of cardiovascular function study, unspecified Pain in left shoulder Atherosclerosis of coronary artery bypass graft(s), unspecified, with other forms of angina pectoris Intermittent claudication Home Medications ?Medication ?Instructions ?Recorded ?Last Taken ?Type tamsulosin 0.4 mg capsule 0.4 mg PO DAILY URINE FLOW 0 03/06/16 01/19/24 History aspirin 81 mg tablet,delayed 81 mg PO DAILY heart heal th 07/04/18 01/19/24 History release (Marisela Low Dose Aspirin) omeprazole 40 mg capsule,delayed 40 mg PO DAILY acid r eflux 07/04/18 01/19/24 History release potassium chloride 20 mEq 20 meq PO DAILY supplement 0 07/04/18 01/19/24 History tablet,extended release multivitamin 1 tab PO DAILY 04/15/2212/26 History furosemide 40 mg tablet 40 mg PO DAILY edema 3 01/19/24 History nitroglycerin 0.4 mg sublingual 0.4 mg sublingual Q5-1 5M PRN Chest 07/17/24 Unknown Rx tablet Pain #25 tabs ranolazine 1,000 mg 1,000 mg PO Q12H Heart 07/17 Unknown History tablet,extended release,12 hr hydrocodone-acetaminophen 5-325mg 1 tab PO Q6H PRN PRN Pain 3 days 01/10/25 01/11/25 Rx 5mg-325mg #10 TABLETS latanoprost 0.005 % eye drops 1 drp ophthalmic (eye) Q HS eye 01/11/25 Unknown History health Allergy/AdvReac Type Severity Reaction Status Date / Time tramadol (From Ultram) AdvReac Other Verified 01/10/25 10:15 Family History Father CAD (coronary artery disease) CHF (congestive heart failure) Mother Heart disease Brother Diabetes Cancer Hx of CABG CAD (coronary artery disease) Sister COPD (chronic obstructive pulmonary disease) Diabetes Surgical History (Updated 01/11/25 @ 13:[address] Mallory Baum DO) Status post total knee replacement, right H/O shoulder surgery History of carpal tunnel surgery History of bilateral knee replacement Hx of CABG (~05/2005) History of arthroscopy (~07/2011) H/O cardiac radiofrequency ablation (~10/2006) History of PTCA History of left heart catheterization (LHC) (~09/2007) Social History (Updated 01/11/25 @ 13:[address] Mallory Baum DO) household members: none housing: other details: lives in a converted garage at his son's house. number of children: 2 current occupational status: retired Smoking Status: Never smoker alcohol intake: never substance use type: does not use caffeine: No what type of physical activity do you participate in: none seatbelt use: always do you feel safe at home: Yes Homelessness:: Sheltered Review of Systems (Anesthesia) ROS Narrative System reviewed and no additional complaints, except as documented. 01/15/25 1510 > Date _ Edmund Werner MD Cosigner Signature: Date CC: ~ Signed [facility]07-22-2025 Progress note Author Mallory Baum [facility] Note Date/Time January 15, 2025 10:1 4am [facility] Medical Records Department [address] [place] [address] Progress Note 01/15/25 0954 MR#: [id number] Acct: [id number] Name: BENJIE MILES Rep #:[id number] 2 : 1935 89 From: Mallory Baum DO PCP: Dr. Kaiser Pan MD Status:ADM I N Location: [place] [address] Subjective Subjective Afebrile VSS -blood pressure for the past 24 hours has ranged from 106/52 130/84. Heart rate is ranged from 56-92. Maintaining appropriate oxygen saturation on RA Oral intake - FOOD good FLUIDS improved after our discussion yesterday. He took an 1740 cc orally yesterday and had 1200 cc out for a fluid balance of +540. Discussed with nursing - no problems that need addressed Reviewed the THERAPY notes Medication list reviewed. I reviewed the EKG done yesterday and it showed sinus arrhythmia with first- degree AV block. The FL interval is 238 ms. He has a left anterior hemiblock. slept fair last night.........awakened a number of times for toileting. Pain isadequately controlled and he has been able to work with therapy but, he has beenrequiring narcotic 5 X's a day, Tizanidine and Tylenol TID. No longer having muscle spasms. He saw Dr. Mantilla last evening and a Lidocaine patch was applied. He tells me that the patch on the left side was helpful but, not so much on the R side. He would like to proceed with intercoastal injections. 's office was notified. He will be an add on for today and then hopefullywe will be able to taper the narcotic use. He has been having nausea with Oxycodone. Denies cough today and he denies SOB. No lightheadedeness. Objective Data Objective Data Vital Signs: Vital Signs Temp Pulse Resp BP Pulse Ox O2 Del Method FiO2 97.9 F 92 15 130/84 H 94 Room Air 21 01/15/25 06:00 01/15/25 06:00 01/15/25 06:00 01/15/25 06:00 01/15/25 06:44 01/15/25 06:44 01/12/25 20:20 Oxygen Delivery Method Room Air Weight: 248 lb 2.014 oz Body Mass Index (BMI) 36.6 Intake & Output: Intake and Output for Last 24 Hours 01/13/25 01/14/25 01/15/25 23:59 23:59 23:59 Intake Total 810 / 810 1740 / 1740 400 / 400 Output Total 900 / 900 1200 / 1200 Balance -90 / -90 540 / 540 400 / 400 Lab / Micro Data 01/11/25 12:36 01/11/25 12:36 Micro: Microbiology 01/12/25 08:40 Stool Stool Occult Blood (REUBEN) - Final Occult Blood Positive Social Homelessness:: Sheltered Physical Exam Const alert and oriented x3 Constitutional Narrative: Sitting in the recliner at the bedside. Looks comfortable. He is appropriate and denies nausea at present. General Appearance: cooperative Orientation / Consciousness: Negative for confused Resp Resp Narrative: Initially had coarse crackles in the R base posteriorly but, after several deep breaths the crackles completely went away. No conversational dyspnea. Speakingin complete sentences. Effort and Inspection: Negative for tachypneic Cardio Cardio Narrative: irregular.....EKG yesterday with sinus arrhythmia. HR is WNL. GI GI Narrative: mild distension, obese, mild tympany NT to palpation. He had 3 BM's yesterday and has had 1 today so far at 0230. Extremity no calf tenderness General Extremity: edema Skin Rashes: no rashes Psych affect normal Assessment & Plan Assessment/Plan (1) Physical debility: (2) Fall: QUALIFIERS: Encounter type: subsequent encounter Qualified Code(s): W19.XXXD - Unspecified fall, subsequent encounter (3) Multiple rib fractures: QUALIFIERS: Encounter type: subsequent encounter Fracture type: closed Laterality: bilateral Qualified Code(s): S22.43XD - Multiple fractures of ribs, bilateral, subsequent encounter for fracture with routine healing (4) Uncontrolled pain: (5) Chronic renal failure, stage 3a: (6) Chronic constipation: (7) (HFpEF) heart failure with preserved ejection fraction: QUALIFIERS: Heart failure chronicity: chronic Qualified Code(s): I50.32 - Chronic diastolic (congestive) heart failure PLAN: vs leg edema due to chronic venous insufficiency + pulmonary HTN. (8) Pulmonary hypertension: PLAN: The right ventricular systolic pressure in July 2023 was estimated at 36 which is only mild pulmonary hypertension. (9) AF (paroxysmal atrial fibrillation): PLAN: Not on an anticoagulant. Has had ablations in the past....... 2004 and 2006 at [facility]. Twelve-lead EKG on 01/20/2024 at the cardiology office showed normal sinus rhythm with a first-degree AV block at a rate of 75. He has declined anticoagulation in the past. He is not on a rate limiting medication. (10) Aortic valve stenosis, nonrheumatic: PLAN: moderate on ECHO in 2023...... valve area was 1 cm?. (11) GERD (gastroesophageal reflux disease): QUALIFIERS: Esophagitis presence: without esophagitis Qualified Code(s): K21.9 - Gastro-esophageal reflux disease without esophagitis (12) Class II obesity: (13) Venous insufficiency (chronic) (peripheral): (14) Heme positive stool: (15) Hemorrhoids: (16) Thrombocytopenia: PLAN: Plan 1. Continue therapy 2. 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 3. Lab ordered for . Charges/Coding Visit Charges Inpatient E&M: 27784 Subs Hosp L1 01/15/25 1014 <Electronically signed by Mallory Baum DO> Mallory Baum DO Cosigner Signature (if applicable): CC: ~ Signed [facility] Work Phone: [phone] 492-120107-22-2025 Progress note [facility] Medical Records Department [address] [place] [address] Progress Note 01/15/25 0954 MR#: [id number] Acct: [id number] Name: BENJIE MILES Rep #:[id number] 2 : 1935 89 From: Mallory Mcgeeti PCP: Dr. Kaiser Pan MD Status:ADM I N Location: [place] [address] Subjective Subjective Afebrile VSS -blood pressure for the past 24 hours has ranged from 106/52 130/84. Heart rate is ranged from 56-92. Maintaining appropriate oxygen saturation on RA Oral intake - FOOD good FLUIDS improved after our discussion yesterday. He took an 1740 cc orally yesterday and had 1200 cc out for a fluid balance of +540. Discussed with nursing - no problems that need addressed Reviewed the THERAPY notes Medication list reviewed. I reviewed the EKG done yesterday and it showed sinus arrhythmia with first- degree AV block. The PRinterval is 238 ms. He has a left anterior hemiblock. slept fair last night.........awakened a number of times for toileting. Pain isadequately controlled and he has been able to work with therapy but, he has beenrequiring narcotic 5 X's a day, Tizanidine and Tylenol TID. No longer having muscle spasms. He saw Dr. Mantilla last evening and a Lidocaine patch was applied. He tells me that the patch on the left side was helpful but, not so much on the R side. He would like to proceed with intercoastal injections. 's office was notified. He will be an add on for today and then hopefullywe will be able to taper the narcotic use. He has been having nausea with Oxycodone. Denies cough today and he denies SOB. No lightheadedeness. Objective Data Objective Data Vital Signs: Vital Signs Temp Pulse Resp BP Pulse Ox O2 Del Method FiO2 97.9 F 92 15 130/84 H 94 Room Air 01/15/25 06:00 01/15/25 06:00 01/15/25 06:00 01/15/25 06:00 01/15/25 06:44 01/15/25 06:44 01/12/25 20:20 Oxygen Delivery Method Room Air Weight: 248 lb 2.014 oz Body Mass Index (BMI) 36.6 Intake & Output: Intake and Output for Last 24 Hours 01/13/25 01/14/25 01/15/25 23:59 23:59 23:59 Intake Total 810 / 810 1740 / 1740 400 / 400 Output Total 900 / 900 1200 / 1200 Balance -90 / -90 540 / 540 400 / 400 Lab / Micro Data 01/11/25 12:36 01/11/25 12:36 Micro: Microbiology 01/12/25 08:40 Stool Stool Occult Blood (REUBEN) - Final Occult Blood Positive Social Homelessness:: Sheltered Physical Exam Const alert and oriented x3 Constitutional Narrative: Sitting in the recliner at the bedside. Looks comfortable. He is appropriate and denies nausea at present. General Appearance: cooperative Orientation / Consciousness: Negative for confused Resp Resp Narrative: Initially had coarse crackles in the R base posteriorly but, after several deep breaths the crackles completely went away. No conversational dyspnea. Speakingin complete sentences. Effort and Inspection: Negative for tachypneic Cardio Cardio Narrative: irregular.....EKG yesterday with sinus arrhythmia. HR is WNL. GI GI Narrative: mild distension, obese, mild tympany NT to palpation. He had 3 BM's yesterday and has had 1 today so far at 0230. Extremity no calf tenderness General Extremity: edema Skin Rashes: no rashes Psych affect normal Assessment & Plan Assessment/Plan (1) Physical debility: (2) Fall: QUALIFIERS: Encounter type: subsequent encounter Qualified Code(s): W19.XXXD - Unspecified fall, subsequent encounter (3) Multiple rib fractures: QUALIFIERS: Encounter type: subsequent encounter Fracture type: closed Laterality: bilateral Qualified Code(s): S22.43XD - Multiple fractures of ribs, bilateral, subsequent encounter for fracture with routine healing (4) Uncontrolled pain: (5) Chronic renal failure, stage 3a: (6) Chronic constipation: (7) (HFpEF) heart failure with preserved ejection fraction: QUALIFIERS: Heart failure chronicity: chronic Qualified Code(s): I50.32 - Chronic diastolic (congestive) heart failure PLAN: vs leg edema due to chronic venous insufficiency + pulmonary HTN. (8) Pulmonary hypertension: PLAN: The right ventricular systolic pressure in July 2023 was estimated at 36 which is only mild pulmonary hypertension. (9) AF (paroxysmal atrial fibrillation): PLAN: Not on an anticoagulant. Has had ablations in the past....... 2004 and 2006 at [facility]. Twelve-lead EKG on 01/20/2024 at the cardiology office showed normal sinus rhythm with a first-degree AV blockat a rate of 75. He has declined anticoagulation in the past. He is not on a rate limiting medication. (10) Aortic valve stenosis, nonrheumatic: PLAN: moderate on ECHO in 2023...... valve area was 1 cm?. (11) GERD (gastroesophageal reflux disease): QUALIFIERS: Esophagitis presence: without esophagitis Qualified Code(s): K21.9 - Gastro-esophageal reflux disease without esophagitis (12) Class II obesity: (13) Venous insufficiency (chronic) (peripheral): (14) Heme positive stool: (15) Hemorrhoids: (16) Thrombocytopenia: PLAN: Plan 1. Continue therapy 2. 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 3. Lab ordered for . Charges/Coding Visit Charges Inpatient E&M: 33285 [facility] Hosp L1 01/15/25 1014 Mallory Baum DO Cosigner Signature (if applicable): CC: ~ Signed [facility]07-21-2025 Progress note Author [facility] Note Date/Time January 14, 2025 2:57 pm [facility] Medical Records Department [address] [place] [address] Progress Note 01/14/25 0805 MR#: [id number] Acct: [id number] Name: BENJIE MIELS Rep #:[id number] : 1935 89 From: Mallory Baum DO PCP: Dr. Kaiser Pan MD Status:ADM I N Location: [place] [address] Subjective Subjective Kenan was seen on team rounds today. His son Kenan participated by phone. All their questions were answered to their satisfaction. Afebrile VSS - Maintaining appropriate oxygen saturation on RA Oral intake - FOOD good FLUIDS poor Only 1 BM since arrival of rehab. Currently on senna 2 tablets 2 times a day and MiraLAX twice daily. Discussed with nursing - no problems that need addressed Reviewed the THERAPY notes Medication list reviewed. Pain is adequately controlled at present. Sleeping at night. No confusion or hallucinations. He is c/o dry mouth. Not having regular BM's but, has had 2 today. He had 30 cc of milk of magnesia yesterday and today got a Dulcolax suppository which was effective. He has been compliant with the stool softeners. He is also c/o a cough. He is now able to cough without grimacing in pain. Denies SOB and lightheadedness. No calf pain. He is having some nausea and I suspect this is due to the narcotics. Denies abd pain and he also denies heart burn. Sits with his legs dependent while sitting in the recliner and has some mild distal pitting/ankle edema Objective Data Objective Data Vital Signs: Vital Signs Temp Pulse Resp BP Pulse Ox O2 Del Method FiO2 98.9 F 67 16 111/67 96 Room Air 21 01/14/25 06:30 01/14/25 06:30 01/14/25 06:30 01/14/25 06:30 01/14/25 06:30 01/14/25 06:30 01/12/25 20:20 Oxygen Delivery Method Room Air Weight: 248 lb 2.014 oz Body Mass Index (BMI) 36.6 Intake & Output: Intake and Output for Last 24 Hours 01/12/25 01/13/25 01/14/25 23:59 23:59 23:59 Intake Total 1600 / 1600 810 / 810 Output Total 1550 / 1550 900 / 900 200 / 200 Balance 50 / 50 -90 / -90 -200 / -200 Lab / Micro Data 01/11/25 12:36 01/11/25 12:36 Micro: Microbiology 01/12/25 08:40 Stool Stool Occult Blood (REUBEN) - Final Occult Blood Positive Social Homelessness:: Sheltered Physical Exam Const alert and oriented x3 Constitutional Narrative: No longer grimacing with movement and he is able to cough with no grimacing and grabbing his R side. Pain is primarily on the R side. Not confused. No hallucinations. General Appearance: cooperative HEENT Mouth: dry mucous membranes Resp Resp Narrative: Initially had coarse crackles in the R base posteriorly but, after several deep breaths the crackles completely went away. No conversational dyspnea. Speakingin complete sentences. Effort and Inspection: Negative for tachypneic Cardio Cardio Narrative: slow and irregular today. will order an EKG. No gallop. GI GI Narrative: mild distension, obese, mild tympany NT to palpation. Extremity no calf tenderness Extremity Narrative: He has edema of the distal LE's to just above the ankles and he has pitting in the ankles which is mild. He has hyperpigmentation and purple discoloration of the legs when dependent and I suspect he is on Lasix for venous insufficiency/leg edema rather than CHF....EF normal. He has compression stockings at home but, his some says he won't wear them. He sits most of the day and does not elevate his legs. He chronically has poor water intake and is on Lasix and this likely contributes significantly to chronic constipation and need for frequent laxative use. He has stasis dermatitis of the LE's due to venous insufficiency. General Extremity: edema Skin Rashes: no rashes Psych affect normal Assessment & Plan Assessment/Plan (1) Physical debility: (2) Fall: QUALIFIERS: Encounter type: subsequent encounter Qualified Code(s): W19.XXXD - Unspecified fall, subsequent encounter (3) Multiple rib fractures: QUALIFIERS: Encounter type: subsequent encounter Fracture type: closed Laterality: bilateral Qualified Code(s): S22.43XD - Multiple fractures of ribs, bilateral, subsequent encounter for fracture with routine healing (4) Uncontrolled pain: (5) Chronic renal failure, stage 3a: (6) Chronic constipation: (7) (HFpEF) heart failure with preserved ejection fraction: QUALIFIERS: Heart failure chronicity: chronic Qualified Code(s): I50.32 - Chronic diastolic (congestive) heart failure PLAN: vs leg edema due to chronic venous insufficiency + pulmonary HTN. (8) Pulmonary hypertension: PLAN: The right ventricular systolic pressure in July 2023 was estimated at 36 which is only mild pulmonary hypertension. (9) AF (paroxysmal atrial fibrillation): PLAN: Not on an anticoagulant. Has had ablations in the past....... 2004 and 2006 at [facility]. Twelve-lead EKG on 01/20/2024 at the cardiology office showed normal sinus rhythm with a first-degree AV block at a rate of 75. He has declined anticoagulation in the past. He is not on a rate limiting medication. (10) Aortic valve stenosis, nonrheumatic: PLAN: moderate on ECHO in 2023...... valve area was 1 cm?. (11) GERD (gastroesophageal reflux disease): QUALIFIERS: Esophagitis presence: without esophagitis Qualified Code(s): K21.9 - Gastro-esophageal reflux disease without esophagitis (12) Class II obesity: (13) Venous insufficiency (chronic) (peripheral): PLAN: Plan 1. Continue therapy 2. Continue current pain regimen 3. Dulcolax tablets 10 mg today. 4. KUB today 5. Check a H&H and BMP on 6. Poor oral intake-hold Lasix x 2 days and then restart. Enocuraged increasedfluid intake. 7. Either YUNIER hose or Mario wraps to the bilateral lower extremities and encouraged him to keep his legs up when he is seated in the recliner. Charges/Coding Visit Charges Inpatient E&M: 09746 Subs Hosp L2 01/14/251454 <Electronically signed by Mallory Baum DO> Mallory Baum DO Cosigner Signature (if applicable): CC: ~ Signed ADDENDUM by Dr. Mallory Baum DO on 01/14/25 at 1457 Addendum Had some nausea with therapy today. He has been having some intermittent nauseaand I suspect this is secondary to narcotic use. I discussed with Dr. Mantilla and he is going to see the patient in consult for possible rib injections so that we can decrease narcotic usage. Will continue Tylenol and tizanidine. KUB is consistent with constipation. Continue stool softeners twice daily. Hehad a Dulcolax suppository today and had a large bowel movement afterwards. 01/14/251456 <Electronically signed by Mallory vickers DO> Date _ Mallory Baum DO Cosigner Signature (if applicable): Date cc: ~* Signed [facility] Work Phone: 1(952) 686-288907-21-2025 Progress note [facility] Medical Records Department [address] [place] [address] Progress Note 01/14/25804 MR#: [id number] Acct: [id number] Name: BENJIE MILES Rep #:[id number] : 1935 89 From: Mallory Carranza Arelyrancho POSEY PCP: Dr. Kaiser Pan MD Status:ADM I N Location: [place] [address] Subjective Subjective Kenan was seen on team rounds today. His son Kenan participated by phone. All their questions were answered to their satisfaction. Afebrile VSS - Maintaining appropriate oxygen saturation on RA Oral intake - FOOD good FLUIDS poor Only 1 BM since arrival of rehab. Currently on senna 2 tablets 2 times a day and MiraLAX twice daily. Discussed with nursing - no problems that need addressed Reviewed the THERAPY notes Medication list reviewed. Pain is adequately controlled at present. Sleeping at night. No confusion or hallucinations. He is c/o dry mouth. Not having regular BM's but, has had 2 today. He had 30 cc of milk of magnesia yesterday and today got a Dulcolax suppository which was effective. He has been compliant with the stool softeners. He is also c/o a cough. He is now able to cough without grimacing in pain. Denies SOB and lightheadedness. No calf pain. He is having some nausea and I suspect this is due to the narcotics. Denies abd pain and he also denies heart burn. Sits with his legs dependent while sitting in the recliner and has some mild distal pitting/ankle edema Objective Data Objective Data Vital Signs: Vital Signs Temp Pulse Resp BP Pulse Ox O2 Del Method FiO2 98.9 F 67 16 111/67 96 Room Air 01/14/25 06:30 01/14/25 06:30 01/14/25 06:30 01/14/25 06:30 01/14/25 06:30 01/14/25 06:30 01/12/25 20:20 Oxygen Delivery Method Room Air Weight: 248 lb 2.014 oz Body Mass Index (BMI) 36.6 Intake & Output: Intake and Output for Last 24 Hours 01/12/25 01/13/25 01/14/25 23:59 23:59 23:59 Intake Total 1600 / 1600 810 / 810 Output Total 1550 / 1550 900 / 900 200 / 200 Balance 50 / 50 -90 / -90 -200 / -200 Lab / Micro Data 01/11/25 12:36 01/11/25 12:36 Micro: Microbiology 01/12/25 08:40 Stool Stool Occult Blood (REUBEN) - Final Occult Blood Positive Social Homelessness:: Sheltered Physical Exam Const alert and oriented x3 Constitutional Narrative: No longer grimacing with movement and he is able to cough with no grimacing and grabbing his R side. Pain is primarily on the R side. Not confused. No hallucinations. General Appearance: cooperative HEENT Mouth: dry mucous membranes Resp Resp Narrative: Initially had coarse crackles in the R base posteriorly but, after several deep breaths the crackles completely went away. No conversational dyspnea. Speakingin complete sentences. Effort and Inspection: Negative for tachypneic Cardio Cardio Narrative: slow and irregular today. will order an EKG. No gallop. GI GI Narrative: mild distension, obese, mild tympany NT to palpation. Extremity no calf tenderness Extremity Narrative: He has edema of the distal LE's to just above the ankles and he has pitting in the ankles which is mild. He has hyperpigmentation and purple discoloration of the legs when dependent and I suspect he is on Lasix for venous insufficiency/leg edema rather than CHF....EF normal. He has compression stock ings at home but, his some says he won't wear them. He sits most of the day and does not elevate his legs. He chronically has poor water intake and is on Lasix and this likely contributes significantly to chronic constipation and need for frequent laxative use. He has stasis dermatitis of the LE's due to venous insufficiency. General Extremity: edema Skin Rashes: no rashes Psych affect normal Assessment & Plan Assessment/Plan (1) Physical debility: (2) Fall: QUALIFIERS: Encounter type: subsequent encounter Qualified Code(s): W19.XXXD - Unspecified fall, subsequent encounter (3) Multiple rib fractures: QUALIFIERS: Encounter type: subsequent encounter Fracture type: closed Laterality: bilateral Qualified Code(s): S22.43XD - Multiple fractures of ribs, bilateral, subsequent encounter for fracture with routine healing (4) Uncontrolled pain: (5) Chronic renal failure, stage 3a: (6) Chronic constipation: (7) (HFpEF) heart failure with preserved ejection fraction: QUALIFIERS: Heart failure chronicity: chronic Qualified Code(s): I50.32 - Chronic diastolic (congestive) heart failure PLAN: vs leg edema due to chronic venous insufficiency + pulmonary HTN. (8) Pulmonary hypertension: PLAN: The right ventricular systolic pressure in July 2023 was estimated at 36 which is only mild pulmonary hypertension. (9) AF (paroxysmal atrial fibrillation): PLAN: Not on an anticoagulant. Has had ablations in the past....... 2004 and 2006 at [facility]. Twelve-lead EKG on 01/20/2024 at the cardiology office showed normal sinus rhythm with a first-degree AV blockat a rate of 75. He has declined anticoagulation in the past. He is not on a rate limiting medication. (10) Aortic valve stenosis, nonrheumatic: PLAN: moderate on ECHO in 2023...... valve area was 1 cm?. (11) GERD (gastroesophageal reflux disease): QUALIFIERS: Esophagitis presence: without esophagitis Qualified Code(s): K21.9 - Gastro-esophageal reflux disease without esophagitis (12) Class II obesity: (13) Venous insufficiency (chronic) (peripheral): PLAN: Plan 1. Continue therapy 2. Continue current pain regimen 3. Dulcolax tablets 10 mg today. 4. KUB today 5. Check a H&H and BMP on 6. Poor oral intake-hold Lasix x 2 days and then restart. Enocuraged increasedfluid intake. 7. Either YUNIER hose or Mario wraps to the bilateral lower extremities and encouraged him to keep his legs up when he is seated in the recliner. Charges/Coding Visit Charges Inpatient E&M: 62005 Subs Hosp L2 01/14/25 3158 Mallory Baum DO Cosigner Signature (if applicable): CC: ~ Signed ADDENDUM by Dr. Mallory Baum DO on 01/14/25 at 1150 Addendum Had some nausea with therapy today. He has been having some intermittent nauseaand I suspect this is secondary to narcotic use. I discussed with Dr. Mantilla and he is going to see the patient in consult for possible rib injections so that we can decrease narcotic usage. Will continue Tylenol and tizanidine. KUB is consistent with constipation. Continue stool softeners twice daily. Hehad a Dulcolax suppository today and had a large bowel movement afterwards. 01/14/25 1457 ti DO> Date _ Mallory Baum DO Cosigner Signature (if applicable): Date cc: ~* Signed [facility]07-21-2025 Radiology Diagnostic study note [facility] Imaging Services [address] [place] [place] [address] Abdomen Single View MR#: [id number] Acct: [id number] Name: BENJIE MILES Rep #: [id number] : 1935 89 From: Sofia Yeh MD PCP: Dr. Kaiser Pan MD Status: ADM I N Study:Abdomen Single View Date of Exam: 01/14/25 Exam# [id number] Ordering Dr: Mallory Baum DO EXAM: XR Abdomen, 1 View CLINICAL INDICATION: CONSTIPATION TECHNIQUE: Frontal supine view of the abdomen/pelvis. COMPARISON: No relevant prior studies available. FINDINGS: GASTROINTESTINAL TRACT: Fecal retention in the colon consistent with constipation. No dilation. BONES/JOINTS: Unremarkable. No acute fracture. SOFT TISSUES: Multiple circular foreign bodies projects over the left hemipelvis and central pelviccavity. RAD/Abdomen Single View IMPRESSION: 1. Multiple circular foreign bodies projects over the left hemipelvis and central pelvic cavity. 2. Fecal retention in the colon consistent with constipation. Reading Location: [facility] CC: Dr. Mallory Baum DO; Dr. 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 Kaiser Pan MD Status:ADM I N Location: [place] [address] Subjective Subjective Afebrile Heart rate is ranged from 55-97 since admission to rehab. The blood pressure isranged from 98/52 to 128/71. Denies lightheadedness while sitting up in the recliner today. Maintaining appropriate oxygen saturation on room air. Folate and B12 were within normal limits. Bill tells me that the Oxycodone 5 mg is effective in controlling pain but, it does not last 6 hours. He was sitting in the recliner when I entered the room and looked very uncomfortable and was grimacing with any movement. No confusionor hallucinations per nursing. Denies cough, night sweats, chills, hemoptysis. He has chronic constipation and uses laxatives regularly at home. Has had to use Mag citrate at times. Has to bear down to have a BM. Has bleeding hemorrhoids at times. TSH normal. I reviewed a CT scan of the abdomen and pelvis that he had in July 2024 and it showed diffuse gastric wall thickening with prominent folds. He has sigmoid diverticulosis but had no diverticulitis. He had oral and IV contrast with the CT scan. I do not see any endoscopy notes over the past 4-5 years when I reviewthe EMR. Has not been losing weight. BUN and CREAT have been chronically elevated since 2022. Does not drink enough water and he is sedentary most of the time. This likely contributes to the chronic constipation. Objective Data Objective Data Vital Signs: Vital Signs Temp Pulse Resp BP Pulse Ox O2 Del Method 98.1 F 90 16 126/57 H 96 Room Air 01/12/25 06:00 01/12/25 08:49 01/12/25 06:00 01/12/25 06:00 01/12/25 08:49 01/12/25 08:49 Oxygen Delivery Method Room Air Weight: 248 lb 2.014 oz Body Mass Index (BMI) 36.6 Intake & Output: Intake and Output for Last 24 Hours 01/10/25 01/11/25 01/12/25 23:59 23:59 23:59 Intake Total 480 / 680 500 / 500 Output Total 550 / 850 1200 / 1200 Balance -70 / -170 -700 / -700 Lab / Micro Data 01/11/25 12:36 01/11/25 12:36 Labs: Laboratory Results - last 24 hr 01/11/25 12:36: WBC 5.8, RBC 3.83 L, Hgb 14.3, Hct 41.3, MCV 107.8 H, MCH 37.3 H, MCHC 34.6, RDW Std Deviation 58.4 H, RDW Coeff of Brigitte 14.6, Plt Count 114 L, MPV 12.3 H, Immature Gran % (Auto) 0.500, Neut % (Auto) 66.5, Lymph % (Auto) 9.3 L, [place] % (Auto) 19.8 H, Eos % (Auto) 3.4, Baso % (Auto) 0.5, Absolute Neuts (auto) 3.9, Absolute Lymphs (auto) 0.54 L, Nucleated RBC % 0, Sodium 140, Potassium 4.0, Chloride 104, Carbon Dioxide 23.4, Anion Gap 13, BUN 36 H, Creatinine 1.24 H, Estim Creat Clear Calc 51.91, Est GFR (MDRD) Non-Af 56 L, BUN/Creatinine Ratio 29.0 H, Glucose 116 H, Calcium 9.9, Phosphorus 3.5, Magnesium 2.3 H, Total Bilirubin 0.65, AST 35, ALT 16, Alkaline Phosphatase 57, Total Protein 6.9, Albumin 4.0, Globulin 2.9, Albumin/Globulin Ratio 1.4 01/11/25 13:38: Vitamin B12 791, Serum Folate 27.80 Social Homelessness:: Sheltered Physical Exam Const alert and oriented x3 Constitutional Narrative: no confusion. in obvious pain General Appearance: cooperative HEENT Mouth: dry mucous membranes Resp Resp Narrative: No conversational dyspnea. No crackles and no wheezes. Effort and Inspection: Negative for tachypneic Auscultation: diminished lung sounds diffuse (poor inspiratory effort due to ribpain with deep breathing.) GI GI Narrative: Nontender to palpation. Obese. Mildly tympanic. Soft. Hypoactive bowel sounds present. Extremity no calf tenderness Skin Skin Narrative: Has had a pressure injury to the left buttock dating back to at least 2020. Ihave not had the opportunity to exam this but, nursing tells me that there is noopening in the skin. He is not c/o any pain. Assessment & Plan Assessment/Plan (1) Physical debility: (2) Fall: QUALIFIERS: Encounter type: subsequent encounter Qualified Code(s): W19.XXXD - Unspecified fall, subsequent encounter (3) Multiple rib fractures: QUALIFIERS: Encounter type: subsequent encounter Fracture type: closed Laterality: bilateral Qualified Code(s): S22.43XD - Multiple fractures of ribs, bilateral, subsequent encounter for fracture with routine healing (4) Bilateral lower extremity edema: (5) Uncontrolled pain: (6) Chronic renal failure, stage 3a: (7) Chronic constipation: (8) (HFpEF) heart failure with preserved ejection fraction: QUALIFIERS: Heart failure chronicity: chronic Qualified Code(s): I50.32 - Chronic diastolic (congestive) heart failure (9) Pulmonary hypertension: (10) AF (paroxysmal atrial fibrillation): (11) Aortic valve stenosis, nonrheumatic: (12) GERD (gastroesophageal reflux disease): QUALIFIERS: Esophagitis presence: without esophagitis Qualified Code(s): K21.9 - Gastro-esophageal reflux disease without esophagitis (13) Class II obesity: PLAN: Plan 1. Continue therapy. Limited by poor pain control today. PT with work with him in the room today. 2. Change the Oxycodone dosing to Q 4 hours during the day while awake. Give 10 mg at HS and add a PRN dose for between 2 and 5 in the morning for breakthrough pain. 3. Add Miralax to the drug regimen. 4. D/W nursing - will give a laxative today. 5. Encouraged increased fluid intake. 6. Anusol HC PRN for hemorrhoids. Charges/Coding Visit Charges Inpatient E&M: 96996 Subs Hosp L1 01/12/25 1126 <Electronically signed by Mallory Baum DO> Mallory Baum DO Cosigner Signature (if applicable): CC: ~ Signed [facility] Work Phone: 1(851) 149-649107-19-2025 History and physical note Author Mallory Baum [facility] Note Date/Time January 12, 2025 10:4 6am [facility] Medical Records Department [address] [place] [address] Post Admission Physician Stew 01/12/25 1041 MR#: [id number] Acct: [id number] Name: BENJIE MILES Rep #:[id number] : 1935 89 From: Mallory Baum DO PCP: Dr. Kaiser Pan MD Status:ADM I N Location: [place] [address] Admission Information Primary Diagnosis:: Debility secondary to fall/multiple rib fracture Status Changes from Prescreening?: No changes Identified Actual Problem List:: Falls, Pain, ALteration in Cmfrt, Bowel, Constipation, Alteration in Sleep, Mobility Impaired, Self Care Deficit and Alteration-LeisureActiv. Potential Problem List:: DVT, Bleeding, Infection, UTI, Aspiration, Falls, Skin Integrity and Depression Risk of Complications DVT: LMWH and YUNIER Hose Bleeding: Monitor Lab Values, Nursing to Teach Precautions for anti-coagulation therapy., Wound, if applicable, to be assessed every shift. and Stroke patients assessed for lethargy or change in status. Infection: Clinical Staff to Monitor for S/S of infection: and S/S of infection include fever, redness, warmth, etc. Urinary Tract Infection: Monitor for frequency, burning, discomfort, or incontinence. and Nursing will obtain urine sample for urinalysis and C&S when ordered. Aspiration: Clinical staff will monitor for coughing, drooling, congestion., Speech will evaluate swallowing and dsyphasia. and Nursing will monitor patient swallowing during meals. Falls: Patient will be evaluated for Fall Precautions and Patient will be placedon Fall Precautions as indicated per protocol. Skin Breakdown: Nursing will assess skin daily using assessment tool. and Nursing will place on Skin Breakdown Precautions as indicated. Pain: Clinical staff will assess patient's pain level per protocol., Medicationswill be given, if needed, and the pain level reassessed. and Other methods: Massage, distraction, decrease stimulus, etc. used PRN. Plan of Care Patient requires physician specializing in physical medicine and rehab oversightto provide close medical supervision of rehab issues including: Pain Management,Sleep Problems, Bowel and Bladder, Medical and co-morbidity Management, DVT prophylaxis, Rehabilitation Leadership and Coordination of treatment team Patient needs Physical Therapy: For a minimum of 1 hour and At least 5 out of 7 days Patient needs Physical Therapy to improve:: Mobility, Strengthening, Transfers, Stretching, ROM, Endurance, Stairs, Gait and Balance Patient needs Occupational Therapy: For a minimum of 1 hour and At least 5 out of 7 days Patient needs Occupational Therapy to improve ADL's incl.: Eating, Grooming, Bathing, Dressing, Toileting, Toilet transfers, Community Reintegration, Higher functioning activities, Household tasks, Adaptive Equipment, Splinting and Otheractivities as determined Patient requires 24/ Rehabilitation Nursing for: Pain Issues, Identifying and preventing risk factors, Monitoring and reporting current medical conditions, Assisting with ambulation, transfer, and all ADL's, Teaching patients about disease process and medications, Family teaching, Providing safe environment, Bowel and Bladder Issues, Skin integrity and Medication Management Patient needs Supervisor Rubber Covering/ Case Management for: Discharge Planning, Arranging Home Equipment or Services and Family Interventions Patient needs Dietary and Nutrition Services for: Adequate Nutrition, Nutritional Supplements and Nutritional Education Goals Goals Patient will remain: free from falls Patient will perform eating at: MOD I level of assist. Patient will perform bed mobility at: MOD I level of assist. Patient will complete transfers from bed to chair at: MOD I level of assist. Patient will ambulate: - (200 feet with least restrictive device at standby assist) Patient will complete upper body dressing at: MOD I level of assist. Patient will complete lower body dressing at: MOD I level of assist. Patient will complete toilet transfer at: MOD I level of assist. Patient will complete toileting at: MOD I level of assist. Patient will perform bathing at: MOD I level of assist. (Upper body bathing independently and lower body bathing at mod I with adaptive equipment as needed.) Patient will perform Tub/Shower transfer at: - (Supervision) Patient will complete grooming at: MOD I level of assist. Patient will complete home management skills at: MOD I level of assist. Patient will achieve: - (1 curb step with least restrictive device at supervision) Patient will have pain level of: of 3 or less Patient's skin will: remain intact Patient will receive: adequate nutrition. Discharge Planning Pt Prognosis for Sig. Practical Improv. w/in Reasonable Time: Good Estimated Length of stay (days): 21 Anticipated D/C Destination: Home w/ family or friends Was Preadmission Assessment Accurate?: Yes 01/12/25 1046 <Electronically signed by Mallory Baum DO> Cosigner Signature (if applicable): CC: ~ Signed [facility] Work Phone: 1(523) 250-900807-19-2025 Progress note [facility] Medical Records Department [address] [place] [address] Progress Note 01/12/25 1049 MR#: [id number] Acct: [id number] Name: BENJIE MILES Rep #:[id number] : 1935 89 From: Mallory Baum DO PCP: Dr. Kaiser Pan MD Status:ADM I N Location: [place] [address] Subjective Subjective Afebrile Heart rate is ranged from 55-97 since admission to rehab. The blood pressure isranged from 98/52 to128/71. Denies lightheadedness while sitting up in the recliner today. Maintaining appropriate oxygen saturation on room air. Folate and B12 were within normal limits. Bill tells me that the Oxycodone 5 mg is effective in controlling pain but, it does not last 6 hours. He was sitting in the recliner when I entered the room and looked very uncomfortable and was grimacing with any movement. No confusionor hallucinations per nursing. Denies cough, night sweats, chills, hemoptysis. He has chronic constipation and uses laxatives regularly at home. Has had to use Magcitrate at times. Has to bear down to have a BM. Has bleeding hemorrhoids at times. TSH normal. I reviewed a CT scan of the abdomen and pelvis that he had in July 2024 and it showed diffuse gastric wall thickening with prominent folds. He has sigmoid diverticulosis but had no diverticulitis. He had oral and IV contrast with the CT scan. I do not see any endoscopy notes over the past 4-5 years when I reviewthe EMR. Has not been losing weight. BUN and CREAT have been chronically elevated since 2022. Does not drink enough water and he is sedentary most of the time. This likely contributes to the chronic constipation. Objective Data Objective Data Vital Signs: Vital Signs Temp Pulse Resp BP Pulse Ox O2 Del Method 98.1 F 90 16 126/57 H 96 Room Air 01/12/25 06:00 01/12/25 08:49 01/12/25 06:00 01/12/25 06:00 01/12/25 08:49 01/12/25 08:49 Oxygen Delivery Method Room Air Weight: 248 lb 2.014 oz Body Mass Index (BMI) 36.6 Intake & Output: Intake and Output for Last 24 Hours 01/10/25 01/11/25 01/12/25 23:59 23:59 23:59 Intake Total 480 / 680 500 / 500 Output Total 550 / 850 1200 / 1200 Balance -70 / -170 -700 / -700 Lab / Micro Data 01/11/25 12:36 01/11/25 12:36 Labs: Laboratory Results - last 24 hr 01/11/25 12:36: WBC 5.8, RBC 3.83 L, Hgb 14.3, Hct 41.3, MCV 107.8 H, MCH 37.3 H, MCHC 34.6, RDW Std Deviation 58.4 H, RDW Coeff of Brigitte 14.6, Plt Count 114 L, MPV 12.3 H, Immature Gran % (Auto) 0.500, Neut % (Auto) 66.5, Lymph % (Auto) 9.3 L, [place] % (Auto) 19.8 H, Eos % (Auto) 3.4, Baso % (Auto) 0.5, Absolute Neuts (auto) 3.9, Absolute Lymphs (auto) 0.54 L, Nucleated RBC % 0, Sodium 140, Potassium 4.0, Chloride 104, Carbon Dioxide 23.4, Anion Gap 13, BUN 36 H, Creatinine 1.24 H, Estim Creat Clear Calc 51.91, Est GFR (MDRD) Non-Af 56 L, BUN/Creatinine Ratio 29.0 H, Glucose 116 H, Calcium 9.9, Phosphorus 3.5, Magnesium 2.3 H, Total Bilirubin 0.65, AST 35, ALT 16, Alkaline Phosphatase 57, Total Protein 6.9, Albumin 4.0, Globulin 2.9, Albumin/Globulin Ratio 1.4 01/11/25 13:38: Vitamin B12 791, Serum Folate 27.80 Social Homelessness:: Sheltered Physical Exam Const alert and oriented x3 Constitutional Narrative: no confusion. in obvious pain General Appearance: cooperative HEENT Mouth: dry mucous membranes Resp Resp Narrative: No conversational dyspnea. No crackles and no wheezes. Effort and Inspection: Negative for tachypneic Auscultation: diminished lung sounds diffuse (poor inspiratory effort due to ribpain with deep breathing.) GI GI Narrative: Nontender to palpation. Obese. Mildly tympanic. Soft. Hypoactive bowel sounds present. Extremity no calf tenderness Skin Skin Narrative: Has had a pressure injury to the left buttock dating back to at least 2020. Ihave not had the opportunity to exam this but, nursing tells me that there is noopening in the skin. He is not c/o any pain. Assessment & Plan Assessment/Plan (1) Physical debility: (2) Fall: QUALIFIERS: Encounter type: subsequent encounter Qualified Code(s): W19.XXXD - Unspecified fall, subsequent encounter (3) Multiple rib fractures: QUALIFIERS: Encounter type: subsequent encounter Fracture type: closed Laterality: bilateral Qualified Code(s): S22.43XD - Multiple fractures of ribs, bilateral, subsequent encounter for fracture with routine healing (4) Bilateral lower extremity edema: (5) Uncontrolled pain: (6) Chronic renal failure, stage 3a: (7) Chronic constipation: (8) (HFpEF) heart failure with preserved ejection fraction: QUALIFIERS: Heart failure chronicity: chronic Qualified Code(s): I50.32 - Chronic diastolic (congestive) heart failure (9) Pulmonary hypertension: (10) AF (paroxysmal atrial fibrillation): (11) Aortic valve stenosis, nonrheumatic: (12) GERD (gastroesophageal reflux disease): QUALIFIERS: Esophagitis presence: without esophagitis Qualified Code(s): K21.9 - Gastro-esophageal reflux disease without esophagitis (13) Class II obesity: PLAN: Plan 1. Continue therapy. Limited by poor pain control today. PT with work with him in the room today. 2. Change the Oxycodone dosing to Q 4 hours during the day while awake. Give 10 mg at HS and add a PRN dose for between 2 and 5 in the morning for breakthrough pain. 3. Add Miralax to the drug regimen. 4. D/W nursing - will give a laxative today. 5. Encouraged increased fluid intake. 6. Anusol HC PRN for hemorrhoids. Charges/Coding Visit Charges Inpatient E&M: 61861 Subs Hosp L1 01/12/25 1126 Mallory Baum DO Cosign Signature (if applicable): CC: ~ Signed [facility]07-19-2025 History and physical note [facility] Medical Records Department [address] [place] [address] Post Admission Physician Jazzminekeyla 01/12/25 1041 MR#: [id number] Acct: [id number] Name: BENJIE MILES Rep #:[id number] : 1935 89 From: Mallory Baum DO PCP: Dr. Kaiser Pan MD Status:ADM I N Location: [place] [address] Admission Information Primary Diagnosis:: Debility secondary to fall/multiple rib fracture Status Changes from Prescreening?: No changes Identified Actual Problem List:: Falls, Pain, ALteration in Cmfrt, Bowel, Constipation, Alteration in Sleep, Mobility Impaired, Self Care Deficit and Alteration-LeisureActiv. Potential Problem List:: DVT, Bleeding, Infection, UTI, Aspiration, Falls, Skin Integrity and Depression Risk of Complications DVT: LMWH and YUNIER Hose Bleeding: Monitor Lab Values, Nursing to Teach Precautions for anti-coagulation therapy., Wound, ifapplicable, to be assessed every shift. and Stroke patients assessed for lethargy or change in status. Infection: Clinical Staff to Monitor for S/S of infection: and S/S of infection include fever, redness, warmth, etc. Urinary Tract Infection: Monitor for frequency, burning, discomfort, or incontinence. and Nursing will obtain urine sample for urinalysis and C&S when ordered. Aspiration: Clinical staff will monitor for coughing, drooling, congestion., Speech will evaluate swallowing and dsyphasia. and Nursing will monitor patient swallowing during meals. Falls: Patient will be evaluated for Fall Precautions and Patient will be placedon Fall Precautionsas indicated per protocol. Skin Breakdown: Nursing will assess skin daily using assessment tool. and Nursing will place on Skin Breakdown Precautions as indicated. Pain: Clinical staff will assess patient's pain level per protocol., Medicationswill be given, if needed, and the pain level reassessed. and Other methods: Massage, distraction, decrease stimulus, etc. used PRN. Plan of Care Patient requires physician specializing in physical medicine and rehab oversightto provide close medical supervision of rehab issues including: Pain Management,Sleep Problems, Bowel and Bladder, Medical and co-morbidity Management, DVT prophylaxis, Rehabilitation Leadership and Coordination of treat ment team Patient needs Physical Therapy: For a minimum of 1 hour and At least 5 out of 7 days Patient needs Physical Therapy to improve:: Mobility, Strengthening, Transfers, Stretching, ROM, Endurance, Stairs, Gait and Balance Patient needs Occupational Therapy: For a minimum of 1 hour and At least 5 out of 7 days Patient needs Occupational Therapy to improve ADL's incl.: Eating, Grooming, Bathing, Dressing, Toileting, Toilet transfers, Community Reintegration, Higher functioning activities, Household tasks, Adaptive Equipment, Splinting and Otheractivities as determined Patient requires 24/ Rehabilitation Nursing for: Pain Issues, Identifying and preventing risk factors, Monitoring and reporting current medical conditions, Assisting with ambulation, transfer, and all ADL's, Teaching patients about disease process and medications, Family teaching, Providing safe environment, Bowel and Bladder Issues, Skin integrity and Medication Management Patient needs Supervisor Rubber Covering/ Case Management for: Discharge Planning, Arranging Home Equipment orServices and Family Interventions Patient needs Dietary and Nutrition Services for: Adequate Nutrition, Nutritional Supplements and Nutritional Education Goals Goals Patient will remain: free from falls Patient will perform eating at: MOD I level of assist. Patient will perform bed mobility at: MOD I level of assist. Patient will complete transfers from bed to chair at: MOD I level of assist. Patient will ambulate: - (200 feet with least restrictive device at standby assist) Patient will complete upper body dressing at: MOD I level of assist. Patient will complete lower body dressing at: MOD I level of assist. Patient will complete toilet transfer at: MOD I level of assist. Patient will complete toileting at: MOD I level of assist. Patient will perform bathing at: MOD I level of assist. (Upper body bathing independently and lowerbody bathing at mod I with adaptive equipment as needed.) Patient will perform Tub/Shower transfer at: - (Supervision) Patient will complete grooming at: MOD I level of assist. Patient will complete home management skills at: MOD I level of assist. Patient will achieve: - (1 curb step with least restrictive device at supervision) Patient will have pain level of: of 3 or less Patient's skin will: remain intact Patient will receive: adequate nutrition. Discharge Planning Pt Prognosis for Sig. Practical Improv. w/in Reasonable Time: Good Estimated Length of stay (days): 21 Anticipated D/C Destination: Home w/ family or friends Was Preadmission Assessment Accurate?: Yes 01/12/25 1046 Cosigner Signature (if applicable): CC: ~ Signed [facility]07-18-2025 History and physical note Author Anahi fernando [facility] Note Date/Time January 11, 2025 2:13 pm [facility] Medical Records Department [address] [place] [address] History & Physical Exam 01/11/25 1054 MR#: [id number] Acct: [id number] Name: BENJIE MILES Rep #:[id number] : 1935 89 From: Anahi RAHMAN PCP: Dr. Kaiser Pan MD Status:ADM I N Location: [place] [address] Documented by User: JOSIAH Schroeder 01/11/25 11:56 HPI - General General Date of Admission: 01/11/25 Date of Service: 01/11/25 Chief Complaint: uncontrolled pain s/p rib fractures HPI Narrative BENJIE MILES, is a 89 M who presents with his son, Kenan, from home. Pt was seen in the ED at [facility] on 01/10/25 after a slip and fall on a wet floor, which resulted in fractures of the R 8th, 9th and 10th ribs, as well as the L 10th rib. He denied LOC or neck pain. He was given a Humboldt in the ED and sent home with Humboldt for pain control at home. Pt continued to have uncontrolled pain while at home and was unable to care for himself. Pt does live alone with his son visiting frequently. Pt's son then called the inpatient unit to request admit for pain control as well as PT/OT with his rib fractures. On arrival, pt is alert and oriented x 4 and his only complaint is 8/10 R rib pain. He states that it is mainly over the lower thoracic area and lateral ribs. Right worse than left. He states movement or coughing make it worse. He states that nothing makes it feel better. He denies paresthesia or weakness. 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 He does report chronic shoulder pain Left worse than right. Pts son states that the pt is not very compliant with his medications on a regular basis and that he forgets to take them Pt does states that he has a organized pill dispenser and he reports that he does takehim meds. Pt does live at home alone and does not utilize and adaptive equiptment. On assessment he does have a loud murmur, which he is aware of. He is alert and oriented x 4. He denies CP or SOB and reports only pain, at this time, is related to rib fractures. He states that he currently has RUQ pain but feels itmay be related to his ribs. I did note him to have some bilateral 1+ pitting edema to bilateral lower extremities right is worse than left at the ankle. He does take Furosemide 40mg q day. Pt's son states that he sits in his chair and is very sedentary most of the time. We did discuss compression stockings and elevation to assist with edema to his lower extremities. We had an extensive discussion about preventing Pneumonia during his stay related to his rib fractures. We discussed the importance of splinting and I provided verbal and visual education to both the pt and his son. I provided him with a folded flat blanket and instructed him on the best splinting techniques. I also discussed the importance of utilizing his IS as well as scheduled pain control. Both Pt and son are in agreement. I did discuss the patient code status with him and his son and provided goals of care conversation with them. At this time, the patient chooses to be a full code. I discussed this plan of care with Dr. Baum I spent 92 minutes reviewing previous documentation,labs and radiological studies, pt assessment and interview, discussion of code status as well as goals of care, doecumentation and order placing. [facility] Medical History (Updated 01/11/25 @ 14:[address] Mallory Baum, ) Class II obesity Chronic constipation Chronic renal failure, stage 3a Presbycusis of both ears Pulmonary hypertension (HFpEF) heart failure with preserved ejection fraction Dyslipidemia COVID-19 Aortic valve stenosis, nonrheumatic Coronary artery disease Hypokalemia Gastroesophageal reflux disease Benign prostate hyperplasia Debility Weakness Pressure injury of left buttock, stage 1 Stenosis, spinal, lumbar Neck pain Segmental and somatic dysfunction of thoracic region Segmental and somatic dysfunction of pelvic region Segmental and somatic dysfunction of lumbar region Segmental and somatic dysfunction of cervical region Degenerative disc disease, cervical Sleep apnea, obstructive Nonrheumatic aortic (valve) insufficiency Pure hypercholesterolemia Essential hypertension Neuropathic pain Hypokalemia GERD (gastroesophageal reflux disease) BPH (benign prostatic hyperplasia) Left trigger finger Left carpal tunnel syndrome Benign paroxysmal positional vertigo Fall Debility Laceration of head Dyspnea on exertion Prinzmetal angina CAD (coronary artery disease) Malignant pericardial effusion Atrial flutter Precordial chest pain History of percutaneous transluminal coronary angioplasty Abnormal result of cardiovascular function study, unspecified Pain in left shoulder Atherosclerosis of coronary artery bypass graft(s), unspecified, with other forms of angina pectoris Intermittent claudication Home Medications ?Medication ?Instructions ?Recorded ?Last Taken ?Type tamsulosin 0.4 mg capsule 0.4 mg PO DAILY URINE FLOW 0 03/06/16 01/19/24 History aspirin 81 mg tablet,delayed 81 mg PO DAILY heart heal th 07/04/18 01/19/24 History release (Marisela Low Dose Aspirin) omeprazole 40 mg capsule,delayed 40 mg PO DAILY acid r eflux 07/04/18 01/19/24 History release potassium chloride 20 mEq 20 meq PO DAILY supplement 0 07/04/18 01/19/24 History tablet,extended release multivitamin 1 tab PO DAILY 04/15/2212/26 History furosemide 40 mg tablet 40 mg PO DAILY edema 3 01/19/24 History nitroglycerin 0.4 mg sublingual 0.4 mg sublingual Q5-1 5M PRN Chest 07/17/24 Unknown Rx tablet Pain #25 tabs ranolazine 1,000 mg 1,000 mg PO Q12H Heart 07/17 Unknown History tablet,extended release,12 hr hydrocodone-acetaminophen 5-325mg 1 tab PO Q6H PRN PRN Pain 3 days 01/10/25 01/11/25 Rx 5mg-325mg #10 TABLETS latanoprost 0.005 % eye drops 1 drp ophthalmic (eye) Q HS eye 01/11/25 Unknown History health Allergy/AdvReac Type Severity Reaction Status Date / Time tramadol (From Ultram) AdvReac Other Verified 01/10/25 10:15 Family History Father CAD (coronary artery disease) CHF (congestive heart failure) Mother Heart disease Brother Diabetes Cancer Hx of CABG CAD (coronary artery disease) Sister COPD (chronic obstructive pulmonary disease) Diabetes Surgical History (Updated 01/11/25 @ 13:[address] Mallory Baum DO) Status post total knee replacement, right H/O shoulder surgery History of carpal tunnel surgery History of bilateral knee replacement Hx of CABG (~05/2005) History of arthroscopy (~07/2011) H/O cardiac radiofrequency ablation (~10/2006) History of PTCA History of left heart catheterization (LHC) (~09/2007) Social History (Updated 01/11/25 @ 13:[address] Mallory Baum DO) household members: none housing: other details: lives in a converted garage at his son's house. number of children: 2 current occupational status: retired Smoking Status: Never smoker alcohol intake: never substance use type: does not use caffeine: No what type of physical activity do you participate in: none seatbelt use: always do you feel safe at home: Yes ROS ROS Narrative Please see HPI Constitutional Constitutional: Reports as per HPI Eyes Eyes: Reports systems reviewed and no addt'l complaints, except as documented ENT HEENT: Reports systems reviewed and no addt'l complaints, except as documented Cardiovascular Cardiovascular: Reports other Details: HX of A-fib s/p ablation, has a known murmur Respiratory/Chest Respiratory/Chest: Reports pain on inspiration and other Details: related to ribfractures Gastrointestinal Gastrointestinal: Reports constipation Genitourinary Genitourinary: Reports dribbling and other Details: on Flomax Musculoskeletal Musculoskeletal: Reports other Details: Rib fractures as per HPI Integumentary Integumentary: Reports systems reviewed and no addt'l complaints, except as documented Neurologic Neurologic: Reports systems reviewed and no addt'l complaints, except as documented Psychiatric Psychiatric: Reports systems reviewed and no addt'l complaints, except as documented Endocrine Endocrinology: Reports systems reviewed and no addt'l complaints, except as documented Hematologic/Lymphatic Hematologic/Lymphatic: Reports systems reviewed and no addt'l complaints, exceptas documented Allergic/Immunologic Allergic/Immunologic: Reports systems reviewed and no addt'l complaints, except as documented Vital Signs Vital Signs Vital Signs: Weight Weight: 248 lb 2 oz Body Mass Index (BMI) 36.6 Indicators for Scoring Admitted with or Primary Diagnosis of CVA/Stroke: No Hx of CVA/Stroke: No Modified Mcnairy Score MRS Score at time of Evaluation: 1-No significant disability Physical Exam Const oriented x3 Constitutional Narrative: obesity General Appearance: cooperative Orientation / Consciousness: awake, oriented to person, oriented to place and oriented to time Nutritional Appearance: obese HEENT normocephalic Head and Scalp: normal to inspection Face and Sinus: normal facial exam General Ear: other Other Details: wears hearing aides but forgets them frequently Eyes PERRL General Eye: normal appearance of both eyes Neck full ROM Chest Chest Narrative: HX of CABG x 3v, R and L rib fx Chest: localized rib tenderness with anteroposterior compression Resp Resp Narrative: Difficulty taking a deep breath related to rib fractures. Effort and Inspection: able to speak in complete sentences and pain with movement Auscultation: clear to auscultation bilaterally Cardio regular rate Cardio Narrative: murmur, 1+ pitting edema to bilateral lower extremities Rate: regular rate Rhythm: regular rhythm Heart Sounds: S1 normal, S2 normal and murmur GI normal to inspection, nondistended, normoactive bowel sounds GI Narrative: chronic constipation Palpation: soft no CVA tenderness Psych mental status grossly normal Results Lab / Micro Data 01/11/25 12:36 01/11/25 12:36 Assessment & Plan Assessment/Plan (1) Physical debility: (2) Fall: QUALIFIERS: Encounter type: subsequent encounter Qualified Code(s): W19.XXXD - Unspecified fall, subsequent encounter PLAN: Fall precautions PT-OT eval and treat (3) Multiple rib fractures: QUALIFIERS: Encounter type: subsequent encounter Fracture type: closed Laterality: bilateral Qualified Code(s): S22.43XD - Multiple fractures of ribs, bilateral, subsequent encounter for fracture with routine healing PLAN: incentive spirometry 10 x per hour while awake splinting with back blanket vital signs Q shift (4) Bilateral lower extremity edema: PLAN: Furosemide 40mg PO q day (5) Uncontrolled pain: PLAN: acetaminophen 1,000mg PO q 8 hours IRENA Ibuprofen 600mg PO q 8 hours IRENA Humboldt 5/325mg PO PRN breakthrough pain q 6 hours (6) Chronic renal failure, stage 3a: (7) Chronic constipation: (8) (HFpEF) heart failure with preserved ejection fraction: (9) Pulmonary hypertension: (10) AF (paroxysmal atrial fibrillation): (11) Aortic valve stenosis, nonrheumatic: (12) GERD (gastroesophageal reflux disease): QUALIFIERS: Esophagitis presence: without esophagitis Qualified Code(s): K21.9 - Gastro-esophageal reflux disease without esophagitis (13) Class II obesity: PLAN: Plan Charges/Coding Visit Charges Inpatient E&M: 35400 Init Hosp L2 Documented by User: Dr. Mallory Baum DO 01/11/25 14:13 HPI - General General Date of Admission: 01/11/25 [facility] Medical History (Updated 01/11/25 @ 14:[address] Mallory Baum DO) Class II obesity Chronic constipation Chronic renal failure, stage 3a Presbycusis of both ears Pulmonary hypertension (HFpEF) heart failure with preserved ejection fraction Dyslipidemia COVID-19 Aortic valve stenosis, nonrheumatic Coronary artery disease Hypokalemia Gastroesophageal reflux disease Benign prostate hyperplasia Debility Weakness Pressure injury of left buttock, stage 1 Stenosis, spinal, lumbar Neck pain Segmental and somatic dysfunction of thoracic region Segmental and somatic dysfunction of pelvic region Segmental and somatic dysfunction of lumbar region Segmental and somatic dysfunction of cervical region Degenerative disc disease, cervical Sleep apnea, obstructive Nonrheumatic aortic (valve) insufficiency Pure hypercholesterolemia Essential hypertension Neuropathic pain Hypokalemia GERD (gastroesophageal reflux disease) BPH (benign prostatic hyperplasia) Left trigger finger Left carpal tunnel syndrome Benign paroxysmal positional vertigo Fall Debility Laceration of head Dyspnea on exertion Prinzmetal angina CAD (coronary artery disease) Malignant pericardial effusion Atrial flutter Precordial chest pain History of percutaneous transluminal coronary angioplasty Abnormal result of cardiovascular function study, unspecified Pain in left shoulder Atherosclerosis of coronary artery bypass graft(s), unspecified, with other forms of angina pectoris Intermittent claudication Home Medications ?Medication ?Instructions ?Recorded ?Last Taken ?Type tamsulosin 0.4 mg capsule 0.4 mg PO DAILY URINE FLOW 0 03/06/16 01/19/24 History aspirin 81 mg tablet,delayed 81 mg PO DAILY heart heal th 07/04/18 01/19/24 History release (Marisela Low Dose Aspirin) omeprazole 40 mg capsule,delayed 40 mg PO DAILY acid r eflux 07/04/18 01/19/24 History release potassium chloride 20 mEq 20 meq PO DAILY supplement 0 07/04/18 01/19/24 History tablet,extended release multivitamin 1 tab PO DAILY 04/15/2212/26 History furosemide 40 mg tablet 40 mg PO DAILY edema 3 01/19/24 History nitroglycerin 0.4 mg sublingual 0.4 mg sublingual Q5-1 5M PRN Chest 07/17/24 Unknown Rx tablet Pain #25 tabs ranolazine 1,000 mg 1,000 mg PO Q12H Heart 07/17 Unknown History tablet,extended release,12 hr hydrocodone-acetaminophen 5-325mg 1 tab PO Q6H PRN PRN Pain 3 days 01/10/25 01/11/25 Rx 5mg-325mg #10 TABLETS latanoprost 0.005 % eye drops 1 drp ophthalmic (eye) Q HS eye 01/11/25 Unknown History health Allergy/AdvReac Type Severity Reaction Status Date / Time tramadol (From Ultram) AdvReac Other Verified 01/10/25 10:15 Family History Father CAD (coronary artery disease) CHF (congestive heart failure) Mother Heart disease Brother Diabetes Cancer Hx of CABG CAD (coronary artery disease) Sister COPD (chronic obstructive pulmonary disease) Diabetes Surgical History (Updated 01/11/25 @ 13:[address] Mallory Baum DO) Status post total knee replacement, right H/O shoulder surgery History of carpal tunnel surgery History of bilateral knee replacement Hx of CABG (~05/2005) History of arthroscopy (~07/2011) H/O cardiac radiofrequency ablation (~10/2006) History of PTCA History of left heart catheterization (LHC) (~09/2007) Social History (Updated 01/11/25 @ 13:[address] Mallory Baum DO) household members: none housing: other details: lives in a converted garage at his son's house. number of children: 2 current occupational status: retired Smoking Status: Never smoker alcohol intake: never substance use type: does not use caffeine: No what type of physical activity do you participate in: none seatbelt use: always do you feel safe at home: Yes Homelessness:: Sheltered Indicators for Scoring Admitted with or Primary Diagnosis of CVA/Stroke: No Hx of CVA/Stroke: No NIHSS Stroke Questions Stroke Team Activated: No Physical Exam Eyes EOMs intact bilaterally, conjunctivae normal and no scleral icterus Eyes Narrative: No discharge from the eyes Neck supple Cardio Cardio Narrative: Irregularly irregular rhythm with controlled ventricular response. systolic Murmur due to . 1+ pitting edema to bilateral lower extremities Rhythm: abnormal rhythm irregularly irregular Extremity no calf tenderness Extremity Narrative: +1 pitting edema of the distal lower extremities Skin Wound Narrative: Has a pressure ulcer on the buttocks and bruising form the fall. Neuro oriented x3, CN's II-XII intact bilaterally and moves all extremities Psych cooperative and affect normal Appearance: grossly normal, appropriate and well kempt Attitude: calm and engaged Activity / Motor Behavior: appropriate eye contact Results Lab / Micro Data 01/11/25 12:36 01/11/25 12:36 Assessment & Plan Assessment/Plan (1) Physical debility: (2) Fall: QUALIFIERS: Encounter type: subsequent encounter Qualified Code(s): W19.XXXD - Unspecified fall, subsequent encounter (3) Multiple rib fractures: QUALIFIERS: Encounter type: subsequent encounter Fracture type: closed Laterality: bilateral Qualified Code(s): S22.43XD - Multiple fractures of ribs, bilateral, subsequent encounter for fracture with routine healing (4) Bilateral lower extremity edema: (5) Uncontrolled pain: (6) Chronic renal failure, stage 3a: (7) Chronic constipation: (8) (HFpEF) heart failure with preserved ejection fraction: (9) Pulmonary hypertension: (10) AF (paroxysmal atrial fibrillation): (11) Aortic valve stenosis, nonrheumatic: (12) GERD (gastroesophageal reflux disease): QUALIFIERS: Esophagitis presence: without esophagitis Qualified Code(s): K21.9 - Gastro-esophageal reflux disease without esophagitis (13) Class II obesity: PLAN: Plan I independently talked with the patient and examined him. I reviewed the KAMALA note and agree with findings. He has stage 3a CRF and a hx of GERD (on Protonix) Will change NSAID to Celebrex once a day and limit use daly longer than 1 week. Will DC Humboldt because he is already on scheduled Tylenol1 GM Q8H and add Oxycodone 5 mg Q 6H. Add scheduled tizanidine for muscle spasms. If we can not get the pain adequately controlled with the current regimen then will consult pain management for possible rib blocks. And IS/PEP therapy. Pulmonary toilet is most important in this patient who has had breathing problems in the past requiring steroids. Add Lovenox 40 mg daily and YUNIER hose for DVT prophylaxis. 01/11/25 1156 <Electronically signed by Anahi RAHMAN> Cosigner Signature (if applicable): 01/11/25 1413 <Electronically signed by Mallory Baum DO> CC: JOSIAH Flynn; Dr. Mallory Baum DO; Dr. Kaiser Davison MD~ Signed [facility] Work Phone: [phone] 504-850607-18-2025 History and physical note [facility] Medical Records Department [address] [place] [id number] History & Physical Exam 01/11/25 1054 MR#: [id number] Acct: [id number] Name: BENJIE MILES Rep #:[id number] : 1935 89 From: Anahi RAHMAN PCP: Dr. Kaiser Pan MD Status:ADM I N Location: [place] [address] Documented by User: JOSIAH Schroeder 01/11/25 11:56 HPI - General General Date of Admission: 01/11/25 Date of Service: 01/11/25 Chief Complaint: uncontrolled pain s/p rib fractures HPI Narrative BENJIE MILES, is a 89 M who presents with his son, Kenan, from home. Pt was seen in the ED at [facility] 01/10/25 after a slip and fall on a wet floor, which resulted in fractures of the R 8th, 9th and 10th ribs, as well as the L 10th rib. He denied LOC or neck pain. He was given a Humboldt in the ED andsent home with Humboldt for pain control at home. Pt continued to have uncontrolled pain while at homeand was unable to care for himself. Pt does live alone with his son visiting frequently. Pt's son then called the inpatient unit to request admit for pain control as well as PT/OT with his rib fractures. On arrival, pt is alert and oriented x 4 and his only complaint is 8/10 R rib pain. He states that it is mainly over the lower thoracic area and lateral ribs. Right worse than left. He states movement or coughing make it worse. He states that nothing makes it feel better. He denies paresthesia or weakness. 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 He does report chronic shoulder pain Left worse than right. Pts son states that the pt is not very compliant with his medications on a regular basis and that he forgets to take them Pt does states that he has a organized pill dispenser and he reports that he does takehim meds. Pt does live at home alone and does not utilize and adaptive equiptment. On assessment he does have a loud murmur, which he is aware of. He is alert and oriented x 4. He denies CP or SOB and reports only pain, at this time, is related to rib fractures. He states that he currently has RUQ pain but feels itmay be related to his ribs. I did note him to have some bilateral 1+ pitting edema to bilateral lower extremities right is worse than left at the ankle. He does take Furosemide 40mg q day. Pt's son states that he sits in his chair and is very sedentary most of the time. We did discuss compression stockings and elevation to assist with edema to his lower extremities. We had an extensive discussion about preventing Pneumonia during his stay related to his rib fract ures. We discussed the importance of splinting and I provided verbal and visual education to both the pt and his son. I provided him with a folded flat blanket and instructed him on the best splinting techniques. I also discussed the importance of utilizing his IS as well as scheduled pain control.Both Pt and son are in agreement. I did discuss the patient code status with him and his son and provided goals of care conversation with them. At this time, the patient chooses to be a full code. I discussed this plan of care with Dr. Baum I spent 92 minutes reviewing previous documentation,labs and radiological studies, pt assessment and interview, discussion of code status as well as goals of care, doecumentation and order placing. [facility] Medical History (Updated 01/11/25 @ 14:[address] Mallory Baum, DO) Class II obesity Chronic constipation Chronic renal failure, stage 3a Presbycusis of both ears Pulmonary hypertension (HFpEF) heart failure with preserved ejection fraction Dyslipidemia COVID-19 Aortic valve stenosis, nonrheumatic Coronary artery disease Hypokalemia Gastroesophageal reflux disease Benign prostate hyperplasia Debility Weakness Pressure injury of left buttock, stage 1 Stenosis, spinal, lumbar Neck pain Segmental and somatic dysfunction of thoracic region Segmental and somatic dysfunction of pelvic region Segmental and somatic dysfunction of lumbar region Segmental and somatic dysfunction of cervical region Degenerative disc disease, cervical Sleep apnea, obstructive Nonrheumatic aortic (valve) insufficiency Pure hypercholesterolemia Essential hypertension Neuropathic pain Hypokalemia GERD (gastroesophageal reflux disease) BPH (benign prostatic hyperplasia) Left trigger finger Left carpal tunnel syndrome Benign paroxysmal positional vertigo Fall Debility Laceration of head Dyspnea on exertion Prinzmetal angina CAD (coronary artery disease) Malignant pericardial effusion Atrial flutter Precordial chest pain History of percutaneous transluminal coronary angioplasty Abnormal result of cardiovascular function study, unspecified Pain in left shoulder Atherosclerosis of coronary artery bypass graft(s), unspecified, with other forms of angina pectoris Intermittent claudication Home Medications ?Medication ?Instructions ?Recorded ?Last Taken ?Type tamsulosin 0.4 mg capsule 0.4 mg PO DAILY URINE FLOW 0 03/06/16 01/19/24 History aspirin 81 mg tablet,delayed 81 mg PO DAILY heart heal th 07/04/18 01/19/24 History release (Marisela Low Dose Aspirin) omeprazole 40 mg capsule,delayed 40 mg PO DAILY acid r eflux 07/04/18 01/19/24 History release potassium chloride 20 mEq 20 meq PO DAILY supplement 0 07/04/18 01/19/24 History tablet,extended release multivitamin 1 tab PO DAILY 04/15/2212/26 History furosemide 40 mg tablet 40 mg PO DAILY edema 3 01/19/24 History nitroglycerin 0.4 mg sublingual 0.4 mg sublingual Q5-1 5M PRN Chest 07/17/24 Unknown Rx tablet Pain #25 tabs ranolazine 1,000 mg 1,000 mg PO Q12H Heart 07/17 Unknown History tablet,extended release,12 hr hydrocodone-acetaminophen 5-325mg 1 tab PO Q6H PRN PRN Pain 3 days 01/10/25 01/11/25 Rx 5mg-325mg #10 TABLETS latanoprost 0.005 % eye drops 1 drp ophthalmic (eye) Q HS eye 01/11/25 Unknown History health Allergy/AdvReac Type Severity Reaction Status Date / Time tramadol (From Ultram) AdvReac Other Verified 01/10/25 10:15 Family History Father CAD (coronary artery disease) CHF (congestive heart failure) Mother Heart disease Brother Diabetes Cancer Hx of CABG CAD (coronary artery disease) Sister COPD (chronic obstructive pulmonary disease) Diabetes Surgical History (Updated 01/11/25 @ 13:[address] Mallory Baum DO) Status post total knee replacement, right H/O shoulder surgery History of carpal tunnel surgery History of bilateral knee replacement Hx of CABG (~05/2005) History of arthroscopy (~07/2011) H/O cardiac radiofrequency ablation (~10/2006) History of PTCA History of left heart catheterization (LHC) (~09/2007) Social History (Updated 01/11/25 @ 13:[address] Mallory Baum DO) household members: none housing: other details: lives in a converted garage at his son's house. number of children: 2 current occupational status: retired Smoking Status: Never smoker alcohol intake: never substance use type: does not use caffeine: No what type of physical activity do you participate in: none seatbelt use: always do you feel safe at home: Yes ROS ROS Narrative Please see HPI Constitutional Constitutional: Reports as per HPI Eyes Eyes: Reports systems reviewed and no addt'l complaints, except as documented ENT HEENT: Reports systems reviewed and no addt'l complaints, except as documented Cardiovascular Cardiovascular: Reports other Details: HX of A-fib s/p ablation, has a known murmur Respiratory/Chest Respiratory/Chest: Reports pain on inspiration and other Details: related to ribfractures Gastrointestinal Gastrointestinal: Reports constipation Genitourinary Genitourinary: Reports dribbling and other Details: on Flomax Musculoskeletal Musculoskeletal: Reports other Details: Rib fractures as per HPI Integumentary Integumentary: Reports systems reviewed and no addt'l complaints, except as documented Neurologic Neurologic: Reports systems reviewed and no addt'l complaints, except as documented Psychiatric Psychiatric: Reports systems reviewed and no addt'l complaints, except as documented Endocrine Endocrinology: Reports systems reviewed and no addt'l complaints, except as documented Hematologic/Lymphatic Hematologic/Lymphatic: Reports systems reviewed and no addt'l complaints, exceptas documented Allergic/Immunologic Allergic/Immunologic: Reports systems reviewed and no addt'l complaints, except as documented Vital Signs Vital Signs Vital Signs: Weight Weight: 248 lb 2 oz Body Mass Index (BMI) 36.6 Indicators for Scoring Admitted with or Primary Diagnosis of CVA/Stroke: No Hx of CVA/Stroke: No Modified Mcnairy Score MRS Score at time of Evaluation: 1-No significant disability Physical Exam Const oriented x3 Constitutional Narrative: obesity General Appearance: cooperative Orientation / Consciousness: awake, oriented to person, oriented to place and oriented to time Nutritional Appearance: obese HEENT normocephalic Head and Scalp: normal to inspection Face and Sinus: normal facial exam General Ear: other Other Details: wears hearing aides but forgets them frequently Eyes PERRL General Eye: normal appearance of both eyes Neck full ROM Chest Chest Narrative: HX of CABG x 3v, R and L rib fx Chest: localized rib tenderness with anteroposterior compression Resp Resp Narrative: Difficulty taking a deep breath related to rib fractures. Effort and Inspection: able to speak in complete sentences and pain with movement Auscultation: clear to auscultation bilaterally Cardio regular rate Cardio Narrative: murmur, 1+ pitting edema to bilateral lower extremities Rate: regular rate Rhythm: regular rhythm Heart Sounds: S1 normal, S2 normal and murmur GI normal to inspection, nondistended, normoactive bowel sounds GI Narrative: chronic constipation Palpation: soft no CVA tenderness Psych mental status grossly normal Results Lab / Micro Data 01/11/25 12:36 01/11/25 12:36 Assessment & Plan Assessment/Plan (1) Physical debility: (2) Fall: QUALIFIERS: Encounter type: subsequent encounter Qualified Code(s): W19.XXXD - Unspecified fall, subsequent encounter PLAN: Fall precautions PT-OT eval and treat (3) Multiple rib fractures: QUALIFIERS: Encounter type: subsequent encounter Fracture type: closed Laterality: bilateral Qualified Code(s): S22.43XD - Multiple fractures of ribs, bilateral, subsequent encounter for fracture with routine healing PLAN: incentive spirometry 10 x per hour while awake splinting with back blanket vital signs Q shift (4) Bilateral lower extremity edema: PLAN: Furosemide 40mg PO q day (5) Uncontrolled pain: PLAN: acetaminophen 1,000mg PO q 8 hours IRENA Ibuprofen 600mg PO q 8 hours IRENA Humboldt 5/325mg PO PRN breakthrough pain q 6 hours (6) Chronic renal failure, stage 3a: (7) Chronic constipation: (8) (HFpEF) heart failure with preserved ejection fraction: (9) Pulmonary hypertension: (10) AF (paroxysmal atrial fibrillation): (11) Aortic valve stenosis, nonrheumatic: (12) GERD (gastroesophageal reflux disease): QUALIFIERS: Esophagitis presence: without esophagitis Qualified Code(s): K21.9 - Gastro-esophageal reflux disease without esophagitis (13) Class II obesity: PLAN: Plan Charges/Coding Visit Charges Inpatient E&M: 26309 Init Hosp L2 Documented by User: Dr. Mallory Baum DO 01/11/25 14:13 HPI - General General Date of Admission: 01/11/25 [facility] Medical History (Updated 01/11/25 @ 14:[address] Mallory Baum DO) Class II obesity Chronic constipation Chronic renal failure, stage 3a Presbycusis of both ears Pulmonary hypertension (HFpEF) heart failure with preserved ejection fraction Dyslipidemia COVID-19 Aortic valve stenosis, nonrheumatic Coronary artery disease Hypokalemia Gastroesophageal reflux disease Benign prostate hyperplasia Debility Weakness Pressure injury of left buttock, stage 1 Stenosis, spinal, lumbar Neck pain Segmental and somatic dysfunction of thoracic region Segmental and somatic dysfunction of pelvic region Segmental and somatic dysfunction of lumbar region Segmental and somatic dysfunction of cervical region Degenerative disc disease, cervical Sleep apnea, obstructive Nonrheumatic aortic (valve) insufficiency Pure hypercholesterolemia Essential hypertension Neuropathic pain Hypokalemia GERD (gastroesophageal reflux disease) BPH (benign prostatic hyperplasia) Left trigger finger Left carpal tunnel syndrome Benign paroxysmal positional vertigo Fall Debility Laceration of head Dyspnea on exertion Prinzmetal angina CAD (coronary artery disease) Malignant pericardial effusion Atrial flutter Precordial chest pain History of percutaneous transluminal coronary angioplasty Abnormal result of cardiovascular function study, unspecified Pain in left shoulder Atherosclerosis of coronary artery bypass graft(s), unspecified, with other forms of angina pectoris Intermittent claudication Home Medications ?Medication ?Instructions ?Recorded ?Last Taken ?Type tamsulosin 0.4 mg capsule 0.4 mg PO DAILY URINE FLOW 0 03/06/16 01/19/24 History aspirin 81 mg tablet,delayed 81 mg PO DAILY heart heal th 07/04/18 01/19/24 History release (Marisela Low Dose Aspirin) omeprazole 40 mg capsule,delayed 40 mg PO DAILY acid r eflux 07/04/18 01/19/24 History release potassium chloride 20 mEq 20 meq PO DAILY supplement 0 07/04/18 01/19/24 History tablet,extended release multivitamin 1 tab PO DAILY 04/15/2212/26 History furosemide 40 mg tablet 40 mg PO DAILY edema 3 01/19/24 History nitroglycerin 0.4 mg sublingual 0.4 mg sublingual Q5-1 5M PRN Chest 07/17/24 Unknown Rx tablet Pain #25 tabs ranolazine 1,000 mg 1,000 mg PO Q12H Heart 07/17 Unknown History tablet,extended release,12 hr hydrocodone-acetaminophen 5-325mg 1 tab PO Q6H PRN PRN Pain 3 days 01/10/25 01/11/25 Rx 5mg-325mg #10 TABLETS latanoprost 0.005 % eye drops 1 drp ophthalmic (eye) Q HS eye 01/11/25 Unknown History health Allergy/AdvReac Type Severity Reaction Status Date / Time tramadol (From Ultram) AdvReac Other Verified 01/10/25 10:15 Family History Father CAD (coronary artery disease) CHF (congestive heart failure) Mother Heart disease Brother Diabetes Cancer Hx of CABG CAD (coronary artery disease) Sister COPD (chronic obstructive pulmonary disease) Diabetes Surgical History (Updated 01/11/25 @ 13:[address] Mallory Baum DO) Status post total knee replacement, right H/O shoulder surgery History of carpal tunnel surgery History of bilateral knee replacement Hx of CABG (~05/2005) History of arthroscopy (~07/2011) H/O cardiac radiofrequency ablation (~10/2006) History of PTCA History of left heart catheterization (LHC) (~09/2007) Social History (Updated 01/11/25 @ 13:[address] Mallory Baum DO) household members: none housing: other details: lives in a converted garage at his son's house. number of children: 2 current occupational status: retired Smoking Status: Never smoker alcohol intake: never substance use type: does not use caffeine: No what type of physical activity do you participate in: none seatbelt use: always do you feel safe at home: Yes Homelessness:: Sheltered Indicators for Scoring Admitted with or Primary Diagnosis of CVA/Stroke: No Hx of CVA/Stroke: No NIHSS Stroke Questions Stroke Team Activated: No Physical Exam Eyes EOMs intact bilaterally, conjunctivae normal and no scleral icterus Eyes Narrative: No discharge from the eyes Neck supple Cardio Cardio Narrative: Irregularly irregular rhythm with controlled ventricular response. systolic Murmur due to . 1+ pitting edema to bilateral lower extremities Rhythm: abnormal rhythm irregularly irregular Extremity no calf tenderness Extremity Narrative: +1 pitting edema of the distal lower extremities Skin Wound Narrative: Has a pressure ulcer on the buttocks and bruising form the fall. Neuro oriented x3, CN's II-XII intact bilaterally and moves all extremities Psych cooperative and affect normal Appearance: grossly normal, appropriate and well kempt Attitude: calm and engaged Activity / Motor Behavior: appropriate eye contact Results Lab / Micro Data 01/11/25 12:36 01/11/25 12:36 Assessment & Plan Assessment/Plan (1) Physical debility: (2) Fall: QUALIFIERS: Encounter type: subsequent encounter Qualified Code(s): W19.XXXD - Unspecified fall, subsequent encounter (3) Multiple rib fractures: QUALIFIERS: Encounter type: subsequent encounter Fracture type: closed Laterality: bilateral Qualified Code(s): S22.43XD - Multiple fractures of ribs, bilateral, subsequent encounter for fracture with routine healing (4) Bilateral lower extremity edema: (5) Uncontrolled pain: (6) Chronic renal failure, stage 3a: (7) Chronic constipation: (8) (HFpEF) heart failure with preserved ejection fraction: (9) Pulmonary hypertension: (10) AF (paroxysmal atrial fibrillation): (11) Aortic valve stenosis, nonrheumatic: (12) GERD (gastroesophageal reflux disease): QUALIFIERS: Esophagitis presence: without esophagitis Qualified Code(s): K21.9 - Gastro-esophageal reflux disease without esophagitis (13) Class II obesity: PLAN: Plan I independently talked with the patient and examined him. I reviewed the KAMALA note and agree with findings. He has stage 3a CRF and a hx of GERD (on Protonix)Will change NSAID to Celebrex once a day and limit use daly longer than 1 week. Will DC Humboldt because he is already on scheduled Tylenol1 GM Q8H and add Oxycodone 5 mg Q 6H. Add scheduled tizanidine for muscle spasms. If we can not get the pain adequately controlled with the current regimen then will consult pain management for possible rib blocks. And IS/PEP therapy. Pulmonary toilet is most important in this patient who has had breathing problems in the past requiring steroids. Add Lovenox 40 mg daily and YUNIER hose for DVT prophylaxis. 01/11/25 1156 Cosigner Signature (if applicable): 01/11/25 1413 CC: JOSIAH Flynn; Dr. Mallory Baum DO; Dr. Kaiser Davison MD~ Signed [facility]07-18-2025 Evaluation note* Diagnosis Onset Date Resolution Status Admit Date Heme positive stool acute January 11, 2025 10:30am Multiple rib fractures acute 2024 10:30am Physical debility acute January 112024 10:30am Urine retention acute December 10:30am UTI (urinary tract infection) acute January 11, 2025 10:30am (HFpEF) heart failure with preserved ejection fraction chronic January 11, 2025 10:30am AF (paroxysmal atrial fibrillation) chronic January 11, 2025 10:30am Aortic valve stenosis, nonrheumatic chronic January 11, 2025 10:30am Chronic constipation chronic January 11, 2025 10:30am Chronic renal failure, stage 3a house director mark January 11, 2025 10:30am Class II obesity chronic December 10:30am Essential hypertension chronic Ju ly 2024 10:30am GERD (gastroesophageal reflu x disease) chronic January 11, 2025 10:30am Hemorrhoids chronic January 11 10:30am Pulmonary hypertension chronic Ju ly 2024 10:30am Thrombocytopenia chronic December 10:30am Venous insufficiency (chroni c) (peripheral) chronic January 11, 2025 10:30am Uncontrolled pain resolved January 112024 10:30am Fall inactive January 11 10:30am Bilateral lower extremity edema quinton yunier January 11, 2025 10:30am [facility] Work Phone: 1(416) 550-663807-18-2025 [facility] Medical Records Department [address] [place] [address] History Physical Exam 01/11/25 1054 MR#: [id number] Acct: [id number] Name: BENJIE MILES Rep #: [id number] : 1935 89 From: Anahi Munguia PCP: Dr. Kaiser Pan MD Status:ADM IN Location: [place] [address] Documented by User: JOSIAH Schroeder 01/11/25 11:56 HPI - General General Date of Admission: 01/11/25 Date of Service: 01/11/25 Chief Complaint: uncontrolled pain s/p rib fractures HPI Narrative BENJIE MILES, is a 89 M who presents with his son, Kenan, from home. Pt was seen in the ED at [facility] on 01/10/25 after a slip and fall on a wet floor, which resulted in fractures of the R 8th, 9th and 10th ribs, as well as the L 10th rib. He denied LOC or neck pain. He was given a Humboldt in the ED and sent home with Humboldt for pain control at home. Pt continued to have uncontrolled pain while at home and was unable to care for himself. Pt does live alone with his son visiting frequently. Pt's son then called the inpatient unit to request admit for pain control as well as PT/OT with his rib fractures. On arrival, pt is alert and oriented x 4 and his only complaint is 8/10 R rib pain. He states that it is mainly over the lower thoracic area and lateral ribs. Right worse than left. He states movement or coughing make it worse. He states that nothing makes it feel better. He denies paresthesia or weakness. 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 He does report chronic shoulder pain Left worse than right. Pts son states that the pt is not very compliant with his medications on a regular basis and that he forgets to take them Pt does states that he has a organized pill dispenser and he reports that he does take him meds. Pt does live at home alone and does not utilize and adaptive equiptment. On assessment he does have a loud murmur, which he is aware of. He is alert and oriented x 4. He denies CP or SOB and reports only pain, at this time, is related to rib fractures. He states that he currently has RUQ pain but feels it may be related to his ribs. I did note him to have some bilateral 1+ pitting edema to bilateral lower extremities right is worse than left at the ankle. He does take Furosemide 40mg q day. Pt's son states that he sits in his chair and is very sedentary most of the time. We did discuss compression stockings and elevation to assist with edema to his lower extremities. We had an extensive discussion about preventing Pneumonia during his stay related to his rib fractures. We discussed the importance of splinting and I provided verbal and visual education to both the pt and his son. I provided him with a folded flat blanket and instructed him on the best splinting techniques. I also discussed the importance of utilizing his IS as well as scheduled pain control. Both Pt and son are in agreement. I did discuss the patient code status with him and his son and provided goals of care conversation with them. At this time, the patient chooses to be a full code. I discussed this plan of care with Dr. Baum I spent 92 minutes reviewing previous documentation,labs and radiological studies, pt assessment and interview, discussion of code status as well as goals of care, doecumentation and order placing. [facility] Medical History (Updated 01/11/25 @ 14:[address] Mallory Baum, DO) Class II obesity Chronic constipation Chronic renal failure, stage 3a Presbycusis of both ears Pulmonary hypertension (HFpEF) heart failure with preserved ejection fraction Dyslipidemia COVID-19 Aortic valve stenosis, nonrheumatic Coronary artery disease Hypokalemia Gastroesophageal reflux disease Benign prostate hyperplasia Debility Weakness Pressure injury of left buttock, stage 1 Stenosis, spinal, lumbar Neck pain Segmental and somatic dysfunction of thoracic region Segmental and somatic dysfunction of pelvic region Segmental and somatic dysfunction of lumbar region Segmental and somatic dysfunction of cervical region Degenerative disc disease, cervical Sleep apnea, obstructive Nonrheumatic aortic (valve) insufficiency Pure hypercholesterolemia Essential hypertension Neuropathic pain Hypokalemia GERD (gastroesophageal reflux disease) BPH (benign prostatic hyperplasia) Left trigger finger Left carpal tunnel syndrome Benign paroxysmal positional vertigo Fall Debility Laceration of head Dyspnea on exertion Prinzmetal angina CAD (coronary artery disease) Malignant pericardial effusion Atrial flutter Precordial chest pain History of percutaneous transluminal coronary angioplasty Abnormal result of cardiovascular function study, unspecified Pain in l (more content not included)...[facility]07-17-2025 Hospital Discharge instructionsAdditional Instructions Take 10-15 deep breaths every hour while you are awake to prevent pneumonia. [facility] Work Phone: [phone] 494-397707-17-2025 Radiology Diagnostic study note [facility] Imaging Services [address], [place] [id number] Ribs Baltazar Min 4V w/PA Chest MR#: [id number] Acct: [id number] Name: BENJIE MILES Rep #: [id number] : 1935 M 89 From: Sofia Yeh MD PCP: Dr. Kaiser Pan MD Status: REG E R Study:Ribs Baltazar Min 4V w/PA Chest Date of Exam : 01/10/25 Exam# [id number] Ordering Dr: Jose Sharp DO EXAM: XR Bilateral Ribs, 3 Views CLINICAL INDICATION: FALL TECHNIQUE: Frontal and oblique views of the bilateral ribs. COMPARISON: No relevant prior studies available. FINDINGS: LUNGS AND PLEURAL SPACES: Unremarkable as visualized. No consolidation. No pneumothorax. BONES/JOINTS: Comminuted mildly displaced fracture of the right 10th, 9th, and possibly 8th ribs. RAD/Ribs Baltazar Min 4V w/PA Chest IMPRESSION: Comminuted mildly displaced fracture of the right 10th, 9th, and possibly 8th ribs. Reading [facility] CC: Dr. Jose Sharp DO; Dr. Kaiser Pan MD ~ Checkering Machine Operator: Signed [facility]07-30-2023 Discharge summary Author [facility] January 23, 2023 12:10pm Note Date/Time January 23, 2023 12:0 0pm [facility] Medical Records Department [address] [place] [address] Discharge Summary 01/23/23 1157 MR#: [id number] Acct: [id number] Name: BENJIE MILES Rep #:[id number] : 1935 87 From: Jane Snider MD PCP: Dr. Kaiser Pan MD Status:ADM I N Location: [place] [address] Providers Date of Admission: 01/21/23 Date of Discharge: 01/23/23 Primary Care Physician: Dr. Kaiser Pan MD Reason For Visit: HYPOXIA DUE TO COVID 19 INFECTION Diagnosis Discharge Diagnosis (1) COVID: Status: Acute Code(s): U07.1 - COVID-19 (2) Hypoxia: Status: Acute Code(s): R09.02 - Hypoxemia Plan #HYpoxia due to covid 19 infection * remains on room air * on decadron. no remdesivir as he is on rooom air. * D dimer was elevated, but CTA chest was negative for any evidence of PE * breathing treatment with bronchodilators. Titrate oxygen to maintain sats >90% * ambulated today and desaturated to 91% on room air, and was weak and dizzy in the process * * #Elevated creatinine: resolved. Cr is down to 1.07. #BPH: On Flomax #CAD s/p CABG: On aspirin and high intensity statin as well as ranolazine DVT prophylaxis: Lovenox CODE STATUS:full code * Medications at Discharge Home Medications tamsulosin 0.4 mg capsule 0.4 mg PO DAILY URINE FLOW 03/06/16 atorvastatin 40 mg tablet 40 mg PO QHS cholesterol 06/26/18 aspirin 81 mg tablet,delayed release (Marisela Low Dose Aspirin) 81 mg PO DAILY heart health 07/04/18 omeprazole 40 mg capsule,delayed release 40 mg PO DAILY acid reflux 07/04/18 potassium chloride 20 mEq tablet,extended release 20 meq PO DAILY supplement 07/04/18 acetaminophen 500 mg tablet 1,000 mg (2 x 500 mg) PO Q6H PRN PRN Pain Score 1- 10#0 tabs 11/05/21 multivitamin 1 tab PO DAILY 04/15/22 ranolazine 1,000 mg tablet,extended release,12 hr 1,000 mg PO BID heart #180 tabs 07/19/22 nitroglycerin 0.4 mg sublingual tablet 0.4 mg sublingual Q5-15M PRN Chest Pain #25 tabs 08/31/22 furosemide 40 mg tablet 40 mg PO DAILY PRN edema 11/18/22 apixaban 2.5 mg tablet (Eliquis) 2.5 mg PO BID #28 tabs 01/23/23 dexamethasone 6 mg tablet 6 mg PO DAILY #8 tabs 01/23/23 Hospital Course Procedures None Summary of Care Provided Minutes Spent on Discharge: 48 Hospital Course: BENJIE MILES, is a 87 M with a PMh as outlined who presents via the ED on 01/21/2023 with a complaint of shortness of breath which started 1 day prior to admission. HE had associated cough and pleuritic ches tpain. He admitted to congestion, sore throat and stuffy nostrils. He denied any fever, chills, palpitations, dizziness, nausea, vomiting or any other symptoms. Review of systems was otherwise negative. Vitals in the ED were temp of 98.3F, FL of 79, RR of 22 and BP of 178/81/ He wason room air. CBC was unremarkable and showed wbc of 6.3 and hb of 12 as well as platelets of 115. Chemistry was unremarkable apart from Cr of 1.37 and CXR showed no acute cardiopulmonary process. EKG showed no acute ST changes. COVID test was positive. He was on room air but with ambulation in the ED his saturation dropped down to 84%. He was admitted to be managed for hypoxia due to COVID-19 infection. His D dimer was elevated, but CTA was negative for any evidence of PE. He was placed on decadron to complete a 10 day course. His shortness of breath improved and he felt much better. He remained stable and he had walking pulse ox on 01/23/2023 which showed that he didnt require any home oxygen. He remained stable and was discharged home on 01/23/2023. He is to followup with his PCP within 1 week. He was discharged on an 8 day course of dexamethasone, and due to his elevated d dimer, he was given a script for PO eliquis 2.5mg bid for a 2 week course to decrease the risk of blood clots. Patient was counseled that if he had any rectal bleeding or so blood in his urine or coughed up blood or had any falls at home, he also stopped taking the Eliquis and call his PCP immediately and/or go to the emergency room. Patient seen and examined prior to discharge. He felt well and had no active complaints. Review of systems was otherwise negative. Labs and vitals reviewed. Home meds reviewed and reconciled. Physical Exam Const alert, oriented x3 and no apparent distress General Appearance: cooperative, comfortable, well kempt and well developed Orientation / Consciousness: awake HEENT normocephalic, head/scalp atraumatic, hearing grossly normal bilaterally, moist oral mucous membranes and oropharynx normal Mouth: oral and palatal mucosa normal Eyes PERRL and EOMs intact bilaterally Neck no lymphadenopathy, supple, no JVD and thyroid normal Lymph Lymphatic: no lymphadenopathy noted and no lymphedema noted Resp Resp Narrative: mildly diminished breath sounds bibasally, no wheezes or crackles. On room air. Cardio regular rate, regular rhythm, S1 normal heart sound, S2 normal heart sound and no murmurs GI normal to inspection, nondistended, normoactive bowel sounds, soft to palpation,non-tender and non-distended Extremity normal capillary refill, no clubbing, cyanosis or edema and no calf tenderness Skin no rashes or lesions noted General Skin Exam: no breakdown Neuro oriented x3, CN's II-XII intact bilaterally, moves all extremities, no focal motor deficits, no sensory deficits noted and deep tendon reflexes 2+ bilaterally Sensorium / Orientation: awake and alert Psych thought process normal, cooperative and affect normal Appearance: appropriate Weight / BMI Weight Weight: 263 lb 3.2 oz Body Mass Index (BMI) 38.8 ABG / Lab / Microbiology Data 01/23/23 05:54 01/23/23 05:54 Laboratory: Laboratory Results - last 24 hr 01/23/23 05:54: WBC 8.7, RBC 3.30 L, Hgb 11.9 L, Hct 35.3 L, MCV 107.0 H, MCH 36.1 H, MCHC 33.7, RDW Std Deviation 61.2 H, RDW Coeff of Brigitte 15.5 H, Plt Count 130 L, MPV 12.2 H, Immature Gran % (Auto) 0.200, Neut % (Auto) 84.5 H, Lymph % (Auto) 4.8 L, [place] % (Auto) 10.5 H, Eos % (Auto) 0.0, Baso % (Auto) 0.0, Absolute Neuts (auto) 7.3, Absolute Lymphs (auto) 0.42 L, Nucleated RBC % 0, Differential Comment SCANNED, Sodium 139, Potassium 4.5, Chloride 110 H, Carbon Dioxide 24.0, Anion Gap 5, BUN 24 H, Creatinine 1.13, Estim Creat Clear Calc 47.79, Est GFR (MDRD) Af Amer 79, Est GFR (MDRD) Non-Af 66, BUN/Creatinine Ratio21.2 H, Glucose 153 H, Calcium 8.7 Microbiology: Microbiology 01/21/23 16:45 Nasal Secretion SARS-CoV-2 & FLU Antigen (Rapid) - Final SARS-CoV-2 (COVID 19) D/C Instructions Discharge Diet: Low fat / Low cholesterol Discharge Activity: Return to Normal Activity Weight Bearing Status: Weight bearing as tolerated Call your doctor if you observe: Fever of 101 or Higher, Shortness of breath, Dizziness, Swelling in the ankles and Chest pain Meaningful Use Info Meaningful Use Diagnoses (Choose all that apply): None applicable Discharge Plan Admission Admit Date/Time: 01/21/23 18:25 Primary Reason for Your Visit: covid 19 infection Attending Provider: Jane Snider Primary Care Provider: Kaiser Pan Chi Instructions Patient Instructions: Coronavirus Disease 2019 (COVID-19): Overview Additional Instructions / Restrictions: eliquis prescribed for 2 weeks due to increased risk of blood clots with COVID and elevated d dimer. If you notice any blood in your stool or urine or cough upany blood, or have any falls at home, please stop eliquis immediately and call your PCP. Discharge Orders/Prescriptions Prescriptions: New dexamethasone 6 mg tablet 6 mg PO DAILY Qty: 8 0RF Eliquis 2.5 mg tablet 2.5 mg PO BID Qty: 28 0RF Continued aspirin [Marisela Low Dose Aspirin] 81 mg tablet,delayed release (DR/EC) 81 mg PO DAILY omeprazole 40 mg capsule,delayed release(DR/EC) 40 mg PO DAILY potassium chloride 20 mEq tablet extended release 20 meq PO DAILY multivitamin Tablet 1 tab PO DAILY tamsulosin 0.4 MG capsule 0.4 mg PO DAILY acetaminophen 500 mg Tablet 1,000 mg PO Q6H PRN PRN (Reason: Pain Score 1-10) Qty: 0 0RF atorvastatin 40 mg tablet 40 mg PO QHS ranolazine 1,000 mg tablet extended release 12 hr 1,000 mg PO BID Qty: 180 3RF nitroglycerin 0.4 mg tablet, sublingual 0.4 mg SUBLINGUAL Q5-15M PRN (Reason: Chest Pain) Qty: 25 3RF furosemide 40 mg tablet 40 mg PO DAILY PRN (Reason: edema) Referrals / Follow Up: Kaiser Pan Chi, MD [Primary Care Provider] - Within 1 Week Disposition Disposition (needs filled in before D/C Order can be placed): Home, Self Care Charges/Coding Visit Charges Inpatient E&M: 07807 Disch Hosp >30min 01/23/23 1210 <Electronically signed by Jane Snider MD> Cosigner Signature (if applicable): CC: Dr. Jane Snider MD; Dr. Kaiser Pan MD~ Signed ADDENDUM by Dr. Jane Snider MD on 01/23/23 at 1210 Visit Charges Inpatient E&M: 64340 Disch Hosp >30min 01/23/23 1210<Electronically signed by Jane Snider MD> Cosigner Signature (if applicable): cc: Dr. Jane Snider MD; Dr. Kaiser Pan MD ~* Signed [facility] Work Phone: 1([phone]) 614-418607-30-2023 Discharge summary Author Jane Snider [facility] January 23, 2023 11:57am Note Date/Time January 23, 2023 11:5 3am [facility] Medical Records Department [address] [place] [address] Instructions for Home/Discharge Instructions 01/23/23 1152 MR#: [id number] Acct: [id number] Name: BENJIE MILES Rep #:[id number] : 1935 87 From: Jane Snider MD PCP: Dr. Kaiser Pan MD Status:ADM I N Discharge Instructions Diet Discharge Diet: Low fat / Low cholesterol Activity Discharge Activity: Return to Normal Activity Weight Bearing Status: Weight bearing as tolerated Dressing / Incision Call your doctor if you observe: Fever of 101 or Higher, Shortness of breath, Dizziness, Swelling in the ankles and Chest pain Follow Up Care Test Results: Test results from this visit will be discussed in further detail at your follow- up appointment, if applicable. Discharge Plan Admission Admit Date/Time: 01/21/23 18:25 Primary Reason for Your Visit: covid 19 infection Attending Provider: Jane Snider Primary Care Provider: [facility] Instructions Patient Instructions: Coronavirus Disease 2019 (COVID-19): Overview Additional Instructions / Restrictions: eliquis prescribed for 2 weeks due to increased risk of blood clots with COVID and elevated d dimer. If you notice any blood in your stool or urine or cough upany blood, or have any falls at home, please stop eliquis immediately and call your PCP. Discharge Orders/Prescriptions Prescriptions: New dexamethasone 6 mg tablet 6 mg PO DAILY Qty: 8 0RF Eliquis 2.5 mg tablet 2.5 mg PO BID Qty: 28 0RF Continued aspirin [Marisela Low Dose Aspirin] 81 mg tablet,delayed release (DR/EC) 81 mg PO DAILY omeprazole 40 mg capsule,delayed release(DR/EC) 40 mg PO DAILY potassium chloride 20 mEq tablet extended release 20 meq PO DAILY multivitamin Tablet 1 tab PO DAILY tamsulosin 0.4 MG capsule 0.4 mg PO DAILY acetaminophen 500 mg Tablet 1,000 mg PO Q6H PRN PRN (Reason: Pain Score 1-10) Qty: 0 0RF atorvastatin 40 mg tablet 40 mg PO QHS ranolazine 1,000 mg tablet extended release 12 hr 1,000 mg PO BID Qty: 180 3RF nitroglycerin 0.4 mg tablet, sublingual 0.4 mg SUBLINGUAL Q5-15M PRN (Reason: Chest Pain) Qty: 25 3RF furosemide 40 mg tablet 40 mg PO DAILY PRN (Reason: edema) Referrals / Follow Up: [facility], MD [Primary Care Provider] - Within 1 Week Disposition Disposition (needs filled in before D/C Order can be placed): Home, Self Care 01/23/23 1157<Electronically signed by Jane Snider MD>Jane Snider MD CC: Dr. Kaiser Pan MD ~ Signed [facility] Work Phone: [phone]) 700-737007-29-2023 History and physical note Author [facility] January 22, 2023 4:09pm Note Date/Time January 21, 2023 6:25 pm [facility] Medical Records Department [address] [place] [address] History & Physical Exam 01/21/236 MR#: [id number] Acct: [id number] Name: BENJIE MILES Rep #:[id number] : 1935 87 From: Jane Snider MD PCP: Dr. Kaiser Pan MD Status:ADM I N Location: [place] [address] HPI - General General Date of Admission: 01/21/23 Date of Service: 01/21/23 Chief Complaint: shortness of breath HPI Narrative BENJIE MILES, is a 87 M with a PMh as outlined who presents via the ED on 01/21/2023 with a complaint of shortness of breath which started 1 day prior to admission. HE had associated cough and pleuritic ches tpain. He admitted to congestion, sore throat and stuffy nostrils. He denied any fever, chills, palpitations, dizziness, nausea, vomiting or any other symptoms. Review of systems was otherwise negative. Vitals in the ED were temp of 98.3F, FL of 79, RR of 22 and BP of 178/81/ He wason room air. CBC was unremarkable and showed wbc of 6.3 and hb of 12 as well as platelets of 115. Chemistry was unremarkable apart from Cr of 1.37 and CXR showed no acute cardiopulmonary process. EKG showed no acute ST changes. COVID test was positive. He was on room air but with ambulation in the ED his saturation dropped down to 84%. He has been admitted to be managed for hypoxia due to COVID-19 infection. 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), unspecified, with other forms of angina pectoris Atrial flutter Benign paroxysmal positional vertigo BPH (benign prostatic hyperplasia) CAD (coronary artery disease) Dizziness and giddiness Essential hypertension Fatigue GERD (gastroesophageal reflux disease) History of atrial fibrillation History of percutaneous transluminal coronary angioplasty Intermittent claudication Laceration of head Left carpal tunnel syndrome Left trigger finger Malignant pericardial effusion Nonrheumatic aortic (valve) insufficiency Nonrheumatic aortic (valve) stenosis Pain in left shoulder Pain in limb Palpitations Precordial chest pain Pressure injury of left buttock, stage 1 Prinzmetal angina Pure hypercholesterolemia Shortness of breath Vertigo Home Medications tamsulosin 0.4 mg capsule 0.4 mg PO DAILY URINE FLOW 03/06/16 [History Last Taken 05/10/19] atorvastatin 40 mg tablet 40 mg PO QHS cholesterol 06/26/18 [History Last Taken 05/10/19] aspirin 81 mg tablet,delayed release (Marisela Low Dose Aspirin) 81 mg PO DAILY heart health 07/04/18 [History Last Taken 05/10/19] omeprazole 40 mg capsule,delayed release 40 mg PO DAILY acid reflux 07/04/18 [History Last Taken 05/10/19] potassium chloride 20 mEq tablet,extended release 20 meq PO DAILY supplement 07/04/18 [History Last Taken 05/10/19] acetaminophen 500 mg tablet 1,000 mg (2 x 500 mg) PO Q6H PRN PRN Pain Score 1- 10#0 tabs 11/05/21 [Rx Last Taken Unknown] multivitamin 1 tab PO DAILY 04/15/22 [History Last Taken Unknown] ranolazine 1,000 mg tablet,extended release,12 hr 1,000 mg PO BID heart #180 tabs 07/19/22 [Rx Last Taken Unknown] nitroglycerin 0.4 mg sublingual tablet 0.4 mg sublingual Q5-15M PRN Chest Pain #25 tabs 08/31/22 [Rx Last Taken Unknown] furosemide 40 mg tablet 40 mg PO DAILY PRN edema 11/18/22 [History Last Taken Unknown] Allergy/AdvReac Type Severity Reaction Status Date / Time tramadol [From Ultram] AdvReac Other Verified 01/21/23 14:26 Family History Father CAD (coronary artery disease) CHF (congestive heart failure) Mother Heart disease Brother Diabetes Cancer Hx of CABG CAD (coronary artery disease) Sister COPD (chronic obstructive pulmonary disease) Diabetes Surgical History H/O cardiac radiofrequency ablation (~10/2006) History of arthroscopy (~07/2011) History of bilateral knee replacement History of carpal tunnel surgery History of left heart catheterization (LHC) (~09/2007) History of PTCA Hx of CABG (~05/2005) Status post total knee replacement, right Social History household members: none Smoking Status: Never smoker alcohol intake: never substance use type: does not use caffeine: No what type of physical activity do you participate in: none seatbelt use: always do you feel safe at home: Yes ROS Constitutional Constitutional: Reports chills, fatigue, malaise and weakness; Denies anorexia or fever(s) Eyes Eyes: Denies change in vision ENT HEENT: Reports headache(s), nasal congestion and nasal discharge; Denies dysphagia Cardiovascular Cardiovascular: Reports chest pain; Denies edema, orthopnea, palpitations, paroxysmal nocturnal dyspnea or syncope Respiratory/Chest Respiratory/Chest: Reports cough, shortness of breath at rest, shortness of breath with exertion and wheezing Gastrointestinal Gastrointestinal: Denies abdominal pain, constipation, diarrhea, nausea or vomiting Genitourinary Genitourinary: Denies dysuria Musculoskeletal Musculoskeletal: Denies back pain or joint pain Integumentary Integumentary: Denies jaundice Neurologic Neurologic: Denies confusion, dizziness, focal weakness, headache(s), numbness or seizures Endocrine Endocrinology: Denies change in body appearance Vital Signs Vital Signs Vital Signs: 01/21/23 14:26 01/21/23 15:28 01/21/23 16:13 Temperature 98.1 F 98.3 F Temperature Source Temporal Temporal Pulse Rate 74 84 84 Respiratory Rate 14 22 H 22 H Respiratory Effort Respiratory Depth Respiratory Pattern Blood Pressure 154/106 H 178/81 H 178/81 H Blood Pressure Mean 122 113 113 Pulse Ox 96 96 Oxygen Delivery Method Room Air Room Air Room Air 01/21/23 16:44 01/21/23 16:45 01/21/23 16:33 Temperature Temperature Source Pulse Rate 79 Respiratory Rate 22 H Respiratory Effort Short of Breath Accessory Muscle Use Respiratory Depth Shallow Respiratory Pattern Tachypnea Tachypnea Blood Pressure Blood Pressure Mean Pulse Ox Oxygen Delivery Method Room Air Weight Weight: 261 lb Body Mass Index (BMI) 38.5 Physical Exam Const alert, oriented x3 and no apparent distress HEENT normocephalic, head/scalp atraumatic, moist oral mucous membranes and oropharynxnormal Eyes PERRL and EOMs intact bilaterally Neck no lymphadenopathy, supple and no JVD Lymph Lymphatic: no lymphadenopathy noted and no lymphedema noted Resp Resp Narrative: mildly diminished breath sounds bibasally, no wheezes or crackles. On room air. Cardio regular rate, regular rhythm, S1 normal heart sound, S2 normal heart sound and no murmurs GI normal to inspection, nondistended, normoactive bowel sounds, soft to palpation,non-tender and non-distended Extremity normal capillary refill, no clubbing, cyanosis or edema and no calf tenderness Skin General Skin Exam: no breakdown Neuro CN's II-XII intact bilaterally, no focal motor deficits, no sensory deficits noted and deep tendon reflexes 2+ bilaterally Psych thought process normal and cooperative Appearance: appropriate Results Lab / Micro Data 01/21/23 16:45 01/21/23 16:45 Labs: Laboratory Results - last 24 hr 01/21/23 16:45: WBC 6.3, RBC 3.32 L, Hgb 12.0 L, Hct 36.4 L, MCV 109.6 H, MCH 36.1 H, MCHC 33.0, RDW Std Deviation 63.9 H, RDW Coeff of Brigitte 15.7 H, Plt Count 115 L, MPV 12.1 H, Immature Gran % (Auto) 0.300, Neut % (Auto) 70.7 H, Lymph % (Auto) 4.4 L, [place] % (Auto) 22.6 H, Eos % (Auto) 1.7, Baso % (Auto) 0.3, Absolute Neuts (auto) 4.5, Absolute Lymphs (auto) 0.28 L, Nucleated RBC % 0, Differential Comment SCANNED, Sodium 138, Potassium 4.3, Chloride 106, Carbon Dioxide 28.0, Anion Gap 4 L, BUN 17, Creatinine 1.37 H, Estim Creat Clear Calc 39.42, Est GFR (MDRD) Af Amer 64, Est GFR (MDRD) Non-Af 53 L, BUN/Creatinine Ratio 12.4, Glucose 104, Calcium 8.6, Troponin I High Sens 16 Micro: Microbiology 01/21/23 16:45 Nasal Secretion SARS-CoV-2 & FLU Antigen (Rapid) - Final SARS-CoV-2 (COVID 19) Radiology Impression Chest X-Ray 01/21/23 16:50 IMPRESSION: No acute disease Electronically Signed: Harsha Vizcarra MD at 17:03 EDT Reading Location ID and State: [address] [place] [address] , Service support , Assessment & Plan Assessment/Plan (1) COVID: (2) Hypoxia: PLAN: Plan #HYpoxia due to covid 19 infection * Admit to [facility]. * On room air but desaturated to 84% with ambulation. * COVID test positive. Chest x-ray showed no acute cardiopulmonary process. * Hydrate gently with IV fluids. Started on p.o. Decadron 6 mg daily to complete a 10-day course. * Hold on remdesivir for now as he is on room air. * Breathing treatments and bronchodilators. Titrate oxygen as needed to maintain saturation above 90%. * Will check D-dimer * #Elevated creatinine: Creatinine is 1.37 with a baseline of around 1. Hydrate gently with IV fluids. Should improve with fluids. #BPH: On Flomax #CAD s/p CABG: On aspirin and high intensity statin as well as ranolazine DVT prophylaxis: Lovenox CODE STATUS:full code * Patient and son counseled extensively about different types of CODE STATUS including full code, DNR CCA and DNR CCA. Patient elects to be full code. * Total pttz-ay-cact time 16 minutes. Charges/Coding Visit Charges Inpatient E&M: 30553 Init Hosp L2 Procedures Hospitalists Procedures: 09742 Advncd Care Plan 30 Min 01/22/23 1609 <Electronically signed by Jane Snider MD> Cosigner Signature (if applicable): CC: Dr. Jane Snider MD; Dr. Kaiser Pan MD~ Signed [facility] Work Phone: 1(498) 705-813707-29-2023 Progress note Author Jane [facility] January 22, 2023 4:09pm Note Date/Time January 22, 2023 11:0 6am [facility] Medical Records Department [address] [place] [address] Progress Note 01/22/23 1101 MR#: [id number] Acct: [id number] Name: BENJIE MILES Rep #:[id number] : 1935 87 From: Jane Snider MD PCP: Dr. Kaiser Pan MD Status:ADM I N Location: [place] [address] Subjective Subjective Patient seen and examined. He said he felt much better today. He complains of a sore throat, but denies any fever, chills, cough, chest pain, palpitations, dizziness, nausea, vomiting or diarrhea. Review of systems is otherwise negative. Objective Data Objective Data Vital Signs: Vital Signs Temp Pulse Resp BP Pulse Ox O2 Del Method 97.6 F L 66 16 145/84 H 91 Room Air 01/22/23 08:52 01/22/23 09:50 01/22/23 08:52 01/22/23 08:52 01/22/23 10:20 01/22/23 08:52 Oxygen Delivery Method Room Air Weight: 263 lb 3.2 oz Body Mass Index (BMI) 38.8 Intake & Output: Intake and Output for Last 24 Hours 01/20/23 01/21/23 01/22/23 23:59 23:59 23:59 Intake Total 500 / 500 1400 / 1400 Output Total 1600 / 1600 Balance 500 / 500 -200 / -200 Lab / Micro Data 01/22/23 06:45 01/22/23 06:45 Labs: Laboratory Results - last 24 hr 01/21/23 16:45: WBC 6.3, RBC 3.32 L, Hgb 12.0 L, Hct 36.4 L, MCV 109.6 H, MCH 36.1 H, MCHC 33.0, RDW Std Deviation 63.9 H, RDW Coeff of Brigitte 15.7 H, Plt Count 115 L, MPV 12.1 H, Immature Gran % (Auto) 0.300, Neut % (Auto) 70.7 H, Lymph % (Auto) 4.4 L, [place] % (Auto) 22.6 H, Eos % (Auto) 1.7, Baso % (Auto) 0.3, Absolute Neuts (auto) 4.5, Absolute Lymphs (auto) 0.28 L, Nucleated RBC % 0, Differential Comment SCANNED, PT 14.9, INR 1.2, Fibrinogen 390, D-Dimer Quant (PE/DVT) 1.80 H*, Sodium 138, Potassium 4.3, Chloride 106, Carbon Dioxide 28.0, Anion Gap 4 L, BUN 17, Creatinine 1.37 H, Estim Creat Clear Calc 39.42, Est GFR (MDRD) Af Amer 64, Est GFR (MDRD) Non-Af 53 L, BUN/Creatinine Ratio 12.4, Glucose 104, Calcium 8.6, Lactate Dehydrogenase 182, Troponin I High Sens 16, C-React Prot Ext Range 68.60 H 01/21/23 20:18: Lactic Acid 1.3, Procalcitonin 0.06 01/22/23 06:45: WBC 4.9, RBC 3.15 L, Hgb 11.3 L, Hct 33.7 L, MCV 107.0 H, MCH 35.9 H, MCHC 33.5, RDW Std Deviation 61.3 H, RDW Coeff of Brigitte 15.5 H, Plt Count 105 L, MPV 11.9, Immature Gran % (Auto) 0.600, Neut % (Auto) 86.6 H, Lymph % (Auto) 5.9 L, [place] % (Auto) 6.7, Eos % (Auto) 0.0, Baso % (Auto) 0.2, Absolute Neuts (auto) 4.3, Absolute Lymphs (auto) 0.29 L, Nucleated RBC % 0, DifferentialComment SCANNED, Sodium 139, Potassium 4.2, Chloride 111 H, Carbon Dioxide 24.0,Anion Gap 4 L, BUN 16, Creatinine 1.07, Estim Creat Clear Calc 50.47, Est GFR (MDRD) Af Amer 85, Est GFR (MDRD) Non-Af 70, BUN/Creatinine Ratio 15.0, Glucose 167 H, Calcium 8.6 Micro: Microbiology 01/21/23 16:45 Nasal Secretion SARS-CoV-2 & FLU Antigen (Rapid) - Final SARS-CoV-2 (COVID 19) Radiography Diagnostic Testing: Radiology Impression Chest X-Ray 01/21/23 16:50 IMPRESSION: No acute disease Electronically Signed: Harsha Vizcarra MD at 17:03 EDT Reading Location ID and State: [facility] / [place] , Service support , Chest CTA 01/21/23 20:23 IMPRESSION: Increased bibasilar interstitial markings/or infiltrates. Aortic valve disease. Status post CABG. Cardiomegaly. Electronically Signed: Harsha Vizcarra MD at 22:40 EDT Reading Location ID and State: [facility] / [place] , Service support , Physical Exam Const alert, oriented x3 and no apparent distress General Appearance: cooperative and well developed HEENT normocephalic, head/scalp atraumatic, moist oral mucous membranes and oropharynxnormal Eyes PERRL and EOMs intact bilaterally Neck no lymphadenopathy, supple, no JVD and thyroid normal Lymph Lymphatic: no lymphadenopathy noted and no lymphedema noted Resp Resp Narrative: mildly diminished breath sounds bibasally, no wheezes or crackles. On room air. Cardio regular rate, regular rhythm, S1 normal heart sound, S2 normal heart sound and no murmurs GI normal to inspection, nondistended, normoactive bowel sounds, soft to palpation,non-tender and non-distended Extremity normal capillary refill, no clubbing, cyanosis or edema and no calf tenderness Skin General Skin Exam: no breakdown Neuro CN's II-XII intact bilaterally, no focal motor deficits, no sensory deficits noted and deep tendon reflexes 2+ bilaterally Psych thought process normal and cooperative Appearance: appropriate Assessment & Plan Assessment/Plan (1) COVID: (2) Hypoxia: PLAN: Plan #HYpoxia due to covid 19 infection * remains on room air * on decadron. no remdesivir as he is on rooom air. * D dimer was elevated, but CTA chest was negative for any evidence of PE * breathing treatment with bronchodilators. Titrate oxygen to maintain sats >90% * ambulated today and desaturated to 91% on room air, and was weak and dizzy in the process * * #Elevated creatinine: resolved. Cr is down to 1.07. #BPH: On Flomax #CAD s/p CABG: On aspirin and high intensity statin as well as ranolazine DVT prophylaxis: Lovenox CODE STATUS:full code * Charges/Coding Visit Charges Inpatient E&M: 12159 Subs Hosp L2 01/22/23 1602 <Electronically signed by Jane Snider MD> Jane Snider MD Cosigner Signature (if applicable): CC: ~ Signed [facility] Work Phone: [phone]) 665-733707-29-2023 Discharge summary Author [facility] January 21, 2023 11:13pm Note Date/Time January 21, 2023 4:53 pm [facility] Medical Records Department [address] [place] [address] Emergency Department Summary 01/21/23 MR#: [id number] Acct: [id number] Name: BENJIE MILES Rep #:[id number] : 1935 87 From: Catie Gaston PCP: Dr. Kaiser Pan MD Status:ADM I N Location: [place] [id number] HPI <SULAIMAN Clay - Last Filed: 01/21/23 20:20> History of Present Illness Chief Complaint: Shortness of Breath Narrative Narrative: Patient presenting today due to shortness of breath, wheezing, chest congestion,sore throat, and a stuffy nose that he has had since . He reports that his chest feels sore from coughing. He tried to see his PCP today, Dr. Pan with the office was closed so he came in here for evaluation. He denies any fever, chills, abdominal pain, nausea, and vomiting. He denies any true lung conditions such as COPD or asthma. He denies any history of blood clots, recentsurgery/procedures, and immobilization. 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(s), unspecified, with other forms of angina pectoris Atrial flutter Benign paroxysmal positional vertigo BPH (benign prostatic hyperplasia) CAD (coronary artery disease) Dizziness and giddiness Essential hypertension Fatigue GERD (gastroesophageal reflux disease) History of atrial fibrillation History of percutaneous transluminal coronary angioplasty Intermittent claudication Laceration of head Left carpal tunnel syndrome Left trigger finger Malignant pericardial effusion Nonrheumatic aortic (valve) insufficiency Nonrheumatic aortic (valve) stenosis Pain in left shoulder Pain in limb Palpitations Precordial chest pain Pressure injury of left buttock, stage 1 Prinzmetal angina Pure hypercholesterolemia Shortness of breath Vertigo Home Medications tamsulosin 0.4 mg capsule 0.4 mg PO DAILY URINE FLOW 03/06/16 [History Last Taken 05/10/19] atorvastatin 40 mg tablet 40 mg PO QHS cholesterol 06/26/18 [History Last Taken 05/10/19] aspirin 81 mg tablet,delayed release (Marisela Low Dose Aspirin) 81 mg PO DAILY heart health 07/04/18 [History Last Taken 05/10/19] omeprazole 40 mg capsule,delayed release 40 mg PO DAILY acid reflux 07/04/18 [History Last Taken 05/10/19] potassium chloride 20 mEq tablet,extended release 20 meq PO DAILY supplement 07/04/18 [History Last Taken 05/10/19] acetaminophen 500 mg tablet 1,000 mg (2 x 500 mg) PO Q6H PRN PRN Pain Score 1- 10#0 tabs 11/05/21 [Rx Last Taken Unknown] multivitamin 1 tab PO DAILY 04/15/22 [History Last Taken Unknown] ranolazine 1,000 mg tablet,extended release,12 hr 1,000 mg PO BID heart #180 tabs 07/19/22 [Rx Last Taken Unknown] nitroglycerin 0.4 mg sublingual tablet 0.4 mg sublingual Q5-15M PRN Chest Pain #25 tabs 08/31/22 [Rx Last Taken Unknown] furosemide 40 mg tablet 40 mg PO DAILY PRN edema 11/18/22 [History Last Taken Unknown] Allergy/AdvReac Type Severity Reaction Status Date / Time tramadol [From Ultram] AdvReac Other Verified 01/21/23 14:26 Family History Father CAD (coronary artery disease) CHF (congestive heart failure) Mother Heart disease Brother Diabetes Cancer Hx of CABG CAD (coronary artery disease) Sister COPD (chronic obstructive pulmonary disease) Diabetes Surgical History (Updated 01/21/23 @ 19:57 by Liam Easton) H/O cardiac radiofrequency ablation (~10/2006) H/O knee surgery H/O shoulder surgery H/O shoulder surgery History of arthroscopy (~07/2011) History of bilateral knee replacement History of carpal tunnel surgery History of left heart catheterization (LHC) (~09/2007) History of PTCA Hx of CABG (~05/2005) Status post total knee replacement, right Social History household members: none Smoking Status: Never smoker alcohol intake: never substance use type: does not use caffeine: No what type of physical activity do you participate in: none seatbelt use: always do you feel safe at home: Yes ROS <SULAIMAN Clay - Last Filed: 01/21/23 20:20> ROS ED Constitutional Constitutional ED: Denies chills or fever(s) Eyes Eyes: Denies change in vision ENT ENT ED: Reports nasal congestion and sore throat Cardiovascular Cardiovascular: Denies chest pain or palpitations Respiratory/Chest Respiratory/Chest: Reports cough, dyspnea, dyspnea on exertion and wheezing Gastrointestinal Gastrointestinal: Denies abdominal pain, nausea or vomiting Genitourinary Genitourinary ED: Denies dysuria, hematuria or urinary urgency Musculoskeletal Musculoskeletal: Denies arthralgias or myalgias Integumentary Denies rash Neurologic Neurologic: Denies weakness EXAM <SULAIMAN Clay - Last Filed: 01/21/23 20:20> Physical Exam Const Vital Signs: 01/21/23 14:26 01/21/23 15:28 01/21/23 16:13 Temperature 98.1 F 98.3 F Temperature Source Temporal Temporal Pulse Rate 74 84 84 Respiratory Rate 14 22 H 22 H Respiratory Effort Respiratory Depth Respiratory Pattern Blood Pressure 154/106 H 178/81 H 178/81 H Blood Pressure Mean 122 113 113 Pulse Ox 96 96 Oxygen Delivery Method Room Air Room Air Room Air 01/21/23 16:44 01/21/23 16:45 01/21/23 16:33 Temperature Temperature Source Pulse Rate 79 Respiratory Rate 22 H Respiratory Effort Short of Breath Accessory Muscle Use Respiratory Depth Shallow Respiratory Pattern Tachypnea Tachypnea Blood Pressure Blood Pressure Mean Pulse Ox Oxygen Delivery Method Room Air Positive well nourished, well developed and no apparent distress General Appearance ED: well developed HEENT Reports normocephalic, head/scalp atraumatic and TM's clear HEENT Narrative: Posterior pharynx without erythema, uvula midline, no tonsillar exudate Tympanic Membrane ED: Yes TM's clear bilateral Mouth ED: Yes moist mucous membranes normal Eyes PERRL and EOMs intact bilaterally Neck full ROM and supple Chest Wall inspection of chest normal Resp normal respiratory effort and clear to auscultation bilaterally Cardio regular rate and regular rhythm GI soft to palpation, non-tender, non-distended and no masses Back/Spine normal ROM and normal to inspection Extremity normal to inspection and full ROM Neuro oriented x3, CN's II-XII intact bilaterally, moves all extremities, no focal motor deficits and no sensory deficits noted Sensorium / Orientation: awake and alert Psych mental status grossly normal and thought process normal Skin no rashes or lesions noted and no wounds <Dr. Catie Carballo, DO - Last Filed: 01/21/23 23:13> Physical Exam Const Vital Signs: 01/21/23 14:26 01/21/23 15:28 01/21/23 16:13 Temperature 98.1 F 98.3 F Temperature Source Temporal Temporal Pulse Rate 74 84 84 Respiratory Rate 14 22 H 22 H Respiratory Effort Respiratory Depth Respiratory Pattern Blood Pressure 154/106 H 178/81 H 178/81 H Blood Pressure Mean 122 113 113 Pulse Ox 96 96 Oxygen Delivery Method Room Air Room Air Room Air 01/21/23 16:44 01/21/23 16:45 01/21/23 16:33 Temperature Temperature Source Pulse Rate 79 Respiratory Rate 22 H Respiratory Effort Short of Breath Accessory Muscle Use Respiratory Depth Shallow Respiratory Pattern Tachypnea Tachypnea Blood Pressure Blood Pressure Mean Pulse Ox Oxygen Delivery Method Room Air MDM <SULAIMAN Clay - Last Filed: 01/21/23 20:20> [facility] MDM Narrative Medical decision making narrative: Patient presenting today due to feeling slightly short of breath, nasal congestion, chest congestion, sore throat that he has had since . He iswell- appearing and in stress, he is 96% O2 on room air and does not appear shortof breath. He is afebrile. Labs will be obtained to rule out leukocytosis, anemia electrolyte abnormality, and ACS. Chest x-ray will be obtained to rule out pneumonia and other cardiopulmonary abnormality and is negative. COVID and flu swabs will be obtained and patient does have COVID. Troponin was WNL and labs are at baseline for patient. Although he does not sound wheezy on exam, hewill be given breathing treatments As they have helped him in the past. The nurse did go to ambulate patient and his O2 dropped to 84% on room air, patient reports that he is feeling weak. Given this, I will speak to the hospitalist regarding admission for patient. He will be given IV fluids and a dose of Decadron here. He will be admitted in stable condition and is comfortable with plan. Lab Data Attestation: I reviewed the patient's lab results. Labs: Laboratory Results - last 24 hr 01/21/23 16:45 WBC 6.3 RBC 3.32 L Hgb 12.0 L Hct 36.4 L MCV 109.6 H MCH 36.1 H MCHC 33.0 RDW Std Deviation 63.9 H RDW Coeff of Brigitte 15.7 H Plt Count 115 L MPV 12.1 H Immature Gran % (Auto) 0.300 Neut % (Auto) 70.7 H Lymph % (Auto) 4.4 L [place] % (Auto) 22.6 H Eos % (Auto) 1.7 Baso % (Auto) 0.3 Absolute Neuts (auto) 4.5 Absolute Lymphs (auto) 0.28 L Nucleated RBC % 0 Differential Comment SCANNED PT 14.9 INR 1.2 Fibrinogen 390 D-Dimer Quant (PE/DVT) 1.80 H* Sodium 138 Potassium 4.3 Chloride 106 Carbon Dioxide 28.0 Anion Gap 4 L BUN 17 Creatinine 1.37 H Estim Creat Clear Calc 39.42 Est GFR (MDRD) Af Amer 64 Est GFR (MDRD) Non-Af 53 L BUN/Creatinine Ratio 12.4 Glucose 104 Calcium 8.6 Lactate Dehydrogenase 182 Troponin I High Sens 16 C-React Prot Ext Range 68.60 H Radiography X-Ray: Read by ED Physician and Read by Radiologist Diagnostic Testing: Clinical Impression(s) from Imaging Studies Chest X-Ray 01/21/23 16:50 IMPRESSION: No acute disease Electronically Signed: Harsha Vizcarra MD at 17:03 EDT Reading Location ID and State: [facility] / [place] , Service support , EKG Initial EKG: Comments: 74 bpm, normal sinus rhythm, no ST elevation, reviewed and interpreted by attending ED physician. <Dr. Catie Carballo, DO - Last Filed: 01/21/23 23:13> [facility] MDM Narrative Medical decision making narrative: Patient presenting today due to feeling slightly short of breath, nasal congestion, chest congestion, sore throat that he has had since . He iswell- appearing and in stress, he is 96% O2 on room air and does not appear shortof breath. He is afebrile. Labs will be obtained to rule out leukocytosis, anemia electrolyte abnormality, and ACS. Chest x-ray will be obtained to rule out pneumonia and other cardiopulmonary abnormality and is negative. COVID and flu swabs will be obtained and patient does have COVID. Troponin was WNL and labs are at baseline for patient. Although he does not sound wheezy on exam, hewill be given breathing treatments As they have helped him in the past. The nurse did go to ambulate patient and his O2 dropped to 84% on room air, patient reports that he is feeling weak. Given this, I will speak to the hospitalist regarding admission for patient. He will be given IV fluids and a dose of Decadron here. He will be admitted in stable condition and is comfortable with plan. I have personally performed a face to face assessment of the patient and have reviewed the KAMALA Note. I performed a substantive portion of the visit including all aspects of the following. My weinstein findings include: History is patient is 87-year-old male presenting with 2 to 3 days of URI symptoms. He is some chest tightness and cough. He states he is feels very weak. Suspect he has some type of URI. He does not have a leukocytosis or acute infiltrate on his chest x-ray. X-ray to read myself as well as radiology. Patient is COVID-positive. This likely explains his presentation. He is ambulated and dropped pretty quickly to 84% on room air. Because of this will be admitted. Is started on Decadron in the ER. Patient agreeable with this plan of care. Is given IV fluid and Tylenol for further symptoms in the emergency room. Other additions or changes: [None] Lab Data Labs: Laboratory Results - last 24 hr 01/21/23 16:45 WBC 6.3 RBC 3.32 L Hgb 12.0 L Hct 36.4 L MCV 109.6 H MCH 36.1 H MCHC 33.0 RDW Std Deviation 63.9 H RDW Coeff of Brigitte 15.7 H Plt Count 115 L MPV 12.1 H Immature Gran % (Auto) 0.300 Neut % (Auto) 70.7 H Lymph % (Auto) 4.4 L [place] % (Auto) 22.6 H Eos % (Auto) 1.7 Baso % (Auto) 0.3 Absolute Neuts (auto) 4.5 Absolute Lymphs (auto) 0.28 L Nucleated RBC % 0 Differential Comment SCANNED PT 14.9 INR 1.2 Fibrinogen 390 D-Dimer Quant (PE/DVT) 1.80 H* Sodium 138 Potassium 4.3 Chloride 106 Carbon Dioxide 28.0 Anion Gap 4 L BUN 17 Creatinine 1.37 H Estim Creat Clear Calc 39.42 Est GFR (MDRD) Af Amer 64 Est GFR (MDRD) Non-Af 53 L BUN/Creatinine Ratio 12.4 Glucose 104 Calcium 8.6 Lactate Dehydrogenase 182 Troponin I High Sens 16 C-React Prot Ext Range 68.60 H Radiography Chest X-Ray - ED: 1 View Diagnostic Testing: Clinical Impression(s) from Imaging Studies Chest X-Ray 01/21/23 16:50 IMPRESSION: No acute disease Electronically Signed: Harsha Vizcarra MD at 17:03 EDT , Discharge Plan Dx/Rx/DC Orders Clinical Impression: COVID-19, SOB (shortness of breath), Weakness, Hypoxia Disposition Disposition: Acute Care Hospital [facility] Discharge Date/Time: 01/21/23 18:57 What to do if you have Problems For any increased pain, shortness of breath, bleeding, nausea or vomiting, chest pain, or any unexpected problems, contact your Primary Care Provider. Call [facility] ([phone]) or report to the closest Emergency Room. Call 911 if necessary. 01/21/232312 <Electronically signed by Catie Carballo DO> Cosigner Signature (if applicable): 01/21/232018 <Electronically signed by Linda HILARIO> CC: Dr. Kaiser Pan MD ~ Signed [facility] Work Phone: 1(472) 466-410907-28-2023 Progress note Author [facility] January 21, 2023 8:24pm Note Date/Time January 21, 2023 8:25 pm [facility] Medical Records Department [address] [place] [id number] Progress Note - Hospitalist 01/21/232023 MR#: [id number] Acct: [id number] Name: BENJIE MILES Rep #:[id number] : 1935 87 From: Sayra Perry MD PCP: Dr. Kaiser Pan MD Status:ADM I N Location: [place] [address] Hospitalist Note D-dimer 1.8, CTA chest ordered, renal function with CrCl > 30. 01/21/232023 <Electronically signed by Sayra Perry MD> Cosigner Signature (if applicable): CC: ~ Signed [facility] Work Phone: Evaluation note* Diagnosis Onset Date Resolution Status Dyspnea on exertion acute Essential hypertension chron ic Pure hypercholesterolemia ch ronic H/O cardiac radiofrequency ablation 2007 resolved History of PTCA resolved Hx of CABG 2004 resolved Acute epigastric pain acute Dehydration acute Fall acute Weakness acute [facility] Work Phone: Evaluation note* Diagnosis Onset Date Resolution Status Dyspnea on exertion acute Essential hypertension chron ic Pure hypercholesterolemia ch ronic H/O cardiac radiofrequency ablation 2007 resolved History of PTCA resolved Hx of CABG 2005 resolved Weakness acute Acute epigastric pain resolv ed Dehydration resolved Fall resolved Benign prostate hyperplasia acute Coronary artery disease acut e Debility acute Dehydration acute Diarrhea acute Gastroesophageal reflux disease acute Hyperlipidemia acute Hypokalemia acute Weakness acute [facility] Work Phone: Evaluation note* Diagnosis Onset Date Resolution Status Weakness acute Acute epigastric pain resolv ed Dehydration resolved Fall resolved Benign prostate hyperplasia acute Coronary artery disease acut e Debility acute Gastroesophageal reflux disease acute Hyperlipidemia acute Hypokalemia acute Dehydration resolved Diarrhea resolved Weakness resolved [facility] Work Phone: Evaluation noteNo assessment information available [facility] Work Phone: Evaluation note* Diagnosis Onset Date Resolution Status Coronary artery disease acut e Aortic valve stenosis, nonrheumatic chronic Essential hypertension chron ic Pure hypercholesterolemia ch ronic H/O cardiac radiofrequency ablation 2006 resolved COVID acute COVID-19 acute Hypoxia acute SOB (shortness of breath) ac quileute Weakness acute [facility] Work Phone: Evaluation note* Diagnosis Onset Date Resolution Status Coronary artery disease acut e Aortic valve stenosis, nonrheumatic chronic Essential hypertension chron ic Pure hypercholesterolemia ch ronic H/O cardiac radiofrequency ablation 2007 resolved Hypoxia resolved SOB (shortness of breath) re solved Weakness resolved [facility] Work Phone: Evaluation note* Diagnosis Onset Date Resolution Status Hypoxia resolved SOB (shortness of breath) re solved Weakness resolved [facility] Work Phone: Evaluation note* Diagnosis Onset Date Resolution Status Aortic valve stenosis, nonrheumatic chronic Bilateral lower extremity edema chronic Coronary artery disease house director mark Dyslipidemia chronic History of atrial fibrillation chronic Hx of CABG 2005 resolved [facility] Work Phone: Hospital Discharge instructions Additional Instructions Please follow-up with your PCP and return for any worsening of your symptoms. [facility] Work Phone: Reason for referral (narrative)No reason for referral information available[facility] Work Phone: Chief Complaint and Reason for Visit Chief Complaint 6 SOB Shortness of breath N/V GENERALIZED WEAKNESS, DEHYDRATION Reason for Visit Dyspnea on exertion Essential hypertension Pure hypercholesterolemia H/O cardiac radiofrequency ablation History of PTCA Hx of CABG Acute epigastric pain Dehydration Fall Weakness Chief Complaint 6 SOB Shortness of breath N/V GENERALIZED WEAKNESS, DEHYDRATION GENERALIZED WEAKNESS, DEHYDRATION Reason for Visit Dyspnea on exertion Essential hypertension Pure hypercholesterolemia H/O cardiac radiofrequency ablation History of PTCA Hx of CABG Acute epigastric pain Dehydration Fall Weakness Chief Complaint 6 SOB Shortness of breath N/V GENERALIZED WEAKNESS, DEHYDRATION GENERALIZED WEAKNESS, DEHYDRATION GENERALIZED WEAKNESS Reason for Visit Dyspnea on exertion Essential hypertension Pure hypercholesterolemia H/O cardiac radiofrequency ablation History of PTCA Hx of CABG Weakness Acute epigastric pain Dehydration Fall Benign prostate hyperplasia Coronary artery disease Debility Dehydration Diarrhea Gastroesophageal reflux disease Hyperlipidemia Hypokalemia Weakness Chief Complaint N/V GENERALIZED WEAKNESS, DEHYDRATION GENERALIZED WEAKNESS, DEHYDRATION GENERALIZED WEAKNESS GENERALIZED EDEMA /KNEE PAIN Reason for Visit Weakness Acute epigastric pain Dehydration Fall Benign prostate hyperplasia Coronary artery disease Debility Gastroesophageal reflux disease Hyperlipidemia Hypokalemia Dehydration Diarrhea Weakness Chief Complaint PRECORDIAL PAIN Chief Complaint 6 M FU HYPOXIA DUE TO COVID 19 INFECTION HYPOXIA DUE TO COVID 19 INFECTION HYPOXIA DUE TO COVID 19 INFECTION HYPOXIA DUE TO COVID 19 INFECTION Reason for Visit Coronary artery dise ase Aortic valve stenosis, nonrheumatic Essential hypertension Pure hypercholesterolemia H/O cardiac radiofrequency ablation COVID COVID-19 Hypoxia SOB (shortness of breath) Weakness Chief Complaint 6 M FU HYPOXIA DUE TO COVID 19 INFECTION HYPOXIA DUE TO COVID 19 INFECTION HYPOXIA DUE TO COVID 19 INFECTION HYPOXIA DUE TO COVID 19 INFECTION Fall Reason for Visit Coronary artery dise ase Aortic valve stenosis, nonrheumatic Essential hypertension Pure hypercholesterolemia H/O cardiac radiofrequency ablation Hypoxia SOB (shortness of breath) Weakness Chief Complaint HYPOXIA DUE TO COVID 19 INFECTION HYPOXIA DUE TO COVID 19 INFECTION HYPOXIA DUE TO COVID 19 INFECTION HYPOXIA DUE TO COVID 19 INFECTION Fall Reason for Visit Hypoxia SOB (shortness of breath) Weakness Chief Complaint 6 M FU E-ORDER Reason for Visit Aortic valve stenosi s, nonrheumatic Bilateral lower extremity edema Coronary artery disease Dyslipidemia History of atrial fibrillation Hx of CABG Chief Complaint 6 M FU E-ORDER CAD ASHD; CHEST PAIN Reason for Visit Aortic valve stenosi s, nonrheumatic Bilateral lower extremity edema Coronary artery disease Dyslipidemia History of atrial fibrillation Hx of CABG Chief Complaint 6 M FU E-ORDER CAD ASHD; CHEST PAIN CAD ASHD Reason for Visit Aortic valve stenosi s, nonrheumatic Bilateral lower extremity edema Coronary artery disease Dyslipidemia History of atrial fibrillation Hx of CABG Chief Complaint 6 M FU E-ORDER CAD ASHD; CHEST PAIN CAD ASHD CAD ASHD Amb Documentation Reason for Visit Aortic valve stenosi s, nonrheumatic Bilateral lower extremity edema Coronary artery disease Dyslipidemia History of atrial fibrillation Hx of CABG Chief Complaint 6 M FU E-ORDER CAD ASHD; CHEST PAIN CAD ASHD CAD ASHD CAD ASHD Amb Documentation Nonrheumatic aortic (valve) stenosis Reason for Visit Aortic valve stenosi s, nonrheumatic Bilateral lower extremity edema Coronary artery disease Dyslipidemia History of atrial fibrillation Hx of CABG Chief Complaint Admit Date fall January 10, 2025 10:1 4am Chief Complaint Admit Date fallJanuary 10, 2025 10:1 4am RIGHT RIB FRACTURES January 11, 2025 10:3 0am RIGHT RIB FRACTURES January 11, 2025 10:5 4am RIGHT RIB FRACTURES January 12, 2025 10:4 1am RIGHT RIB FRACTURES January 14, 2025 8:05 am RIGHT RIB FRACTURES January 15, 2025 9:54 am RIGHT RIB FRACTURES January 16, 2025 11:5 9am RIGHT RIB FRACTURES January 21, 2025 10:0 9am RIGHT RIB FRACTURES January 22, 2025 11:4 2am RIGHT RIB FRACTURES January 23, 2025 8:15 am RIGHT RIB FRACTURES January 25, 2025 2:3 4pm Reason for Visit Admit Date Heme positive stool January 11, 2025 10:3 0am Multiple rib fractures January 11, 2025 1 0:30am Physical debility January 11, 2025 10:3 0am Urine retention January 11, 2025 10:3 0am UTI (urinary tract infection) January 11, 2025 10:30am (HFpEF) heart failure with preserved eje ction fraction January 11, 2025 10:30am AF (paroxysmal atrial fibrillation) January 11, 2025 10:30am Aortic valve stenosis, nonrheumatic January 11, 2025 10:30am Chronic constipation January 11, 2025 10: 30am Chronic renal failure, stage 3a December 10:30am Class II obesity January 11, 2025 10:3 0am Essential hypertension January 11, 2025 1 0:30am GERD (gastroesophageal reflux disease) J mercedes 2024 10:30am Hemorrhoids January 11, 2025 10:3 0am Pulmonary hypertension January 11, 2025 1 0:30am Thrombocytopenia January 11, 2025 10:3 0am Venous insufficiency (chronic) (peripher al) January 11, 2025 10:30am Uncontrolled pain January 11, 2025 10:3 0am Fall January 11, 2025 10:3 0am Bilateral lower extremity edema December 10:30am Family History Relationship Condition Age at Onset Recorded Date/T yg father Coronary artery disease Unknown Congestive heart failure Unknown mother Cardiac disease Unknown brother Diabetes mellitus Unknown Malignant neoplasm Unknown History of coronary artery bypass surgery Unknown Coronary artery disease Unknown sister Chronic obstructive pulmonary disease Unk nown Diabetes mellitus Unknown Advance Directives Advance Directive Response Recorded Date/ Time Name of Medical Power of Supervisor Laboratory BENJIE Walton-SON October 25, 2021 3:42pm Living Will Yes October 27, 2021 8: 34am Power of Supervisor Laboratory Yes October 27, 2021 8:34am Advance Directive Response Recorded Date/ Time Name of Medical Power of Supervisor Laboratory BENJIE Walton-SON October 25, 2021 3:42pm Name of Medical Power of Supervisor Laboratory Benjie walton October 27, 2021 8:34am Living Will Yes October 29, 2021 3: 50pm Power of Supervisor Laboratory Yes October 29, 2021 3:50pm Advance Directive Response Recorded Date/ Time Name of Medical Power of Supervisor Laboratory BENJIE Walton-SON October 25, 2021 3:42pm Name of Medical Power of Supervisor Laboratory Benjie walton October 27, 2021 8:34am Name of Medical Power of Supervisor Laboratory Benjie walton, son October 29, 2021 3:50pm Living Will Yes October 29, 2021 3: 50pm Power of Supervisor Laboratory Yes October 29, 2021 3:50pm Advance Directive Response Recorded Date/ Time Living Will Yes October 29, 2021 2: 50pm Power of Supervisor Laboratory Yes October 29, 2021 2:50pm Advance Directive Response Recorded Date/ Time Name of Medical Power of Supervisor Laboratory benjie walton January 21, 2023 7:49pm Living Will Yes January 21, 2023 7:49pm Power of Supervisor Laboratory Yes January 21 7:49pm Advance Directive Response Recorded Date/ Time Name of Medical Power of Supervisor Laboratory benjie walton January 21, 2023 7:49pm Name of Medical Power of Supervisor Laboratory Benjie walton February 03, 2023 7:38pm Living Will Yes February 03 7:38pm Power of Supervisor Laboratory Yes February 03 7:38pm Advance Directive Response Recorded Date/ Time Name of Medical Power of Supervisor Laboratory benjie walton January 21, 2023 6:49pm Name of Medical Power of Supervisor Laboratory Benjie walton February 03, 2023 6:38pm Living Will Yes February 03 6:38pm Power of Supervisor Laboratory Yes February 03 6:38pm Advance Directive Response Recorded Date/ Time Living Will Yes February 03 6:38pm Power of Supervisor Laboratory Yes February 03 6:38pm Advance Directive Response Recorded Date/ Time Living Will Yes February 03 7:38pm Power of Supervisor Laboratory Yes February 03 7:38pm Advance Directive Response Recorded Date/ Time Do you have a Healthcare Power of Supervisor Laboratory? No January 10, 2025 1:08pm Advance Directive Response Recorded Date/ Time Do you have a Healthcare Pow er of Supervisor Laboratory? No January 10, 2025 1:08pm Do you have a Healthcare Pow er of Supervisor Laboratory? Yes January 14, 2025 3:01pm Name of Medical Power of Supervisor Laboratory jesus Mckeon January 14, 2025 3:01pm Summary Purpose Additional Source Comments Care Teams (unrecognized sec tion and content) Team Status: Active Member Role Status Dates Dr. Kaiser Pan MD Family Provider Active Dr. Kaiser Pan MD Primary Care Provider Active Team Status: Active Member Role Status Dates Dr. Kaiser Pan MD Primary Care Provider Active Dr. Juan Jeronimo MD Attending Provider Active Team Status: Inactive Member Role Status Dates Dr. Kaiser Pan MD Primary Care Provider Active Dr. Juan Jeronimo MD Attending Provider, Referring Provider Active Team Status: Inactive Member Role Status Dates Dr. Kaiser Pan MD Primary Care Provider Active Kaiser Pan MD Attending Provider Active Team Status: Inactive Member Role Status Dates Dr. Kaiser Pan MD Primary Care Provider, Referring Provider Active Paulino Jose NP, [employer]ER-C Attending Provider Active Team Status: Active Member Role Status Dates Dr. Kaiser Pan MD Primary Care Provider Active Dr. Catie Carballo DO Emergency Provider Active Dr. Jane Snider MD Admit Provider, Other Provider Active Dr. Sayra Perry MD Attending Provider Active Team Status: Active Member Role Status Dates Dr. Kaiser Pan MD Primary Care Provider Active Dr. Catie Carballo DO Emergency Provider Active Dr. Jane Snider MD Admit Provider, Attending Provider, Other Provider Active Team Status: Inactive Member Role Status Dates Dr. Kaiser Pan MD Primary Care Provider, Attending Provider Active Team Status: Inactive Member Role Status Dates Dr. Kaiser Pan MD Primary Care Provider Active Dr. Catie Carballo DO Emergency Provider Active Dr. Jane Snider MD Admit Provider, Attending Prov ider Active Team Status: Inactive Member Role Status Dates Dr. Kaiser Pan MD Primary Care Provider Active Dr. Willy Abdullahi MD Emergency Provider Active Team Status: Inactive Member Role Status Dates Dr. Kaiser Pan MD Primary Care Provider Active Dr. Willy Abdullahi MD Attending Provider, Emergency Provi eusebia Active Team Status: Inactive Member Role Status Dates Dr. Kaiser Pan MD Primary Care Provider, Referring Provider Active Dr. Yamilka Wu MD Attending Provider Active Team Status: Inactive Member Role Status Dates Dr. Kaiser Pan MD Primary Care Provider Active Dr. Yamilka Wu MD Attending Provider, Referring Pr ovider Active Team Status: Active Member Role Status Dates Dr. Kaiser Pan MD Primary Care Provider Active Dr. Yamilka Wu MD Attending Provider Active Team Status: Active Member Role Status Dates Dr. Kaiser Pan MD Primary Care Provider Active Dr. Yamilka Wu MD Attending Provider, Referring Pr ovider Active Team Status: Inactive Member Role Status Dates Dr. Kaiser Pan MD Primary Care Provi eusebia, Attending Provider, Referring Provider Active Team Status: Active Member Role Status Dates Dr. Kaiser Pan MD Primary Care Provider Active Dr. Yamilka Wu MD Attending Provider , Referring Provider, Other Provider Active Team Status: Active Member Role Status Dates Dr. Kaiser Pan MD Primary Care Provider Active Neelam Miles [employer]ER, [employer]-C Attending Provider Active Team Status: Active Member Role Status Dates Dr. Kaiser Pan MD Primary Care Provider Active Dr. Ritchie Brito MD Attending Provider Active Team Status: Inactive Member Role Status Dates Dr. Kaiser Pan MD Primary Care Provider Active Leeanna Guy PA, PA Attending Provider, Referr ing Provider Active Team Status: Active Member Role/Relationship Status Dates Dr. Kaiser Pan MD Primary Care Provider Active Team Status: Inactive Member Role/Relationship Status Dates Dr. Kaiser Pan MD Primary Care Provider Active Start: November 13, 2024 End: November 13, 2024 Dr. Kaiser Pan MD Attending Provider Active Start: November 13, 2024 End: November 13, 2024 Dr. Kaiser Pan MD Referring Provider Active Start: November 13, 2024 End: November 13, 2024 Team Status: Inactive Member Role/Relationship Status Dates Dr. Kaiser Pan MD Primary Care Provider Active Start: January 10, 2025 End: January 10, 2025 Dr. Jose hSarp DO Emergency Provider Active Start: January 10, 2025 End: January 10, 2025 Team Status: Inactive Member Role/Relationship Status Dates Dr. Kaiser Pan MD Primary Care Provider Active Start: January 10, 2025 End: January 10, 2025 Dr. Jose Sharp DO Attending Provider Active Start: January 10, 2025 End: January 10, 2025 Dr. Jose Sharp DO Emergency Provider Active Start: January 10, 2025 End: January 10, 2025 Team Status: Inactive Member Role/Relationship Status Dates Dr. Kaiser Pan MD Primary Care Provider Active Start: January 11, 2025 End: January 26, 2025 Dr. Mallory Baum DO Admit Provider Active Start: January 11, 2025 End: January 26, 2025 Dr. Mallory Baum DO Attending Provider Act peter Start: January 11, 2025 End: January 26, 2025 Dr. Mallory Baum DO Referring Provider Act peter Start: January 11, 2025 End: January 26, 2025 Dr. Kolby Mantilla MD Other Provider Active Star t: January 11, 2025 End: January 26, 2025 Team Status: Active Member Role/Relationship Status Dates Dr. Kaiser Pan MD Primary Care Provider Active Start: January 11, 2025 Dr. Mallory Baum , DO Admit Provider Active Start: January 11, 2025 Dr. Mallory Baum , DO Other Provider Active Start: January 11, 2025 JOSIAH Schroeder Attending Provider Act peter Start: January 11, 2025 Team Status: Active Member Role/Relationship Status Dates Dr. Kaiser Pan MD Primary Care Provider Active Start: January 12, 2025 Dr. Mallory Baum , DO Admit Provider Active Start: January 12, 2025 Dr. Mallory Baum , DO Attending Provider Act peter Start: January 12, 2025 Dr. Mallory Baum , DO Other Provider Active Start: January 12, 2025 Team Status: Active Member Role/Relationship Status Dates Dr. Kaiser Pan MD Primary Care Provider Active Start: January 14, 2025 Dr. Mallory Baum , DO Admit Provider Active Start: January 14, 2025 Dr. Mallory Baum , DO Attending Provider Act peter Start: January 14, 2025 Dr. Mallory Baum , DO Other Provider Active Start: January 14, 2025 Dr. Kolby Mantilla MD Other Provider Active Star t: January 14, 2025 Team Status: Active Member Role/Relationship Status Dates Dr. Kaiser Pan MD Primary Care Provider Active Start: January 15, 2025 Dr. Mallory Baum , DO Admit Provider Active Start: January 15, 2025 Dr. Mallory Baum , DO Attending Provider Act peter Start: January 15, 2025 Dr. Mallory Baum , DO Other Provider Active Start: January 15, 2025 Dr. Kolby Mantilla MD Other Provider Active Star t: January 15, 2025 Team Status: Active Member Role/Relationship Status Dates Dr. Kaiser Pan MD Primary Care Provider Active Start: January 16, 2025 Dr. Mallory Baum , DO Admit Provider Active Start: January 16, 2025 Dr. Mallory Baum DO Attending Provider Act peter Start: January 16, 2025 Dr. Mallory Baum , DO Other Provider Active Start: January 16, 2025 Dr. Kolby Mantilla MD Other Provider Active Star t: January 16, 2025 Team Status: Active Member Role/Relationship Status Dates Dr. Kaiser Pan MD Primary Care Provider Active Start: January 21, 2025 Dr. Mallory Baum , Admit Provider Active Start: January 21, 2025 Dr. Mallory Baum DO Attending Provider Act peter Start: January 21, 2025 Dr. Mallory Baum , DO Referring Provider Act peter Start: January 21, 2025 Dr. Mallory Baum DO Other Provider Active Start: January 21, 2025 Dr. Kolby Mantilla MD Other Provider Active Star t: January 21, 2025 Team Status: Active Member Role/Relationship Status Dates Dr. Kaiser Pan MD Primary Care Provider Active Start: January 22, 2025 Dr. Mallory Baum DO Admit Provider Active Start: January 22, 2025 Dr. Mallory Baum , DO Attending Provider Act peter Start: January 22, 2025 Dr. Mallory Baum DO Referring Provider Act peter Start: January 22, 2025 Dr. Mallory Baum , DO Other Provider Active Start: January 22, 2025 Dr. Kolby Mantilla MD Other Provider Active Star t: January 22, 2025 Team Status: Active Member Role/Relationship Status Dates Dr. Kaiser Pan MD Primary Care Provider Active Start: January 23, 2025 Dr. Mallory Baum DO Admit Provider Active Start: January 23, 2025 Dr. Mallory Baum DO Attending Provider Act peter Start: January 23, 2025 Dr. Mallory Baum DO Referring Provider Act peter Start: January 23, 2025 Dr. Malolry Baum DO Other Provider Active Start: January 23, 2025 Dr. Kolby Mantilla MD Other Provider Active Star t: January 23, 2025 Team Status: Active Member Role/Relationship Status Dates Dr. Kaiser Pan MD Primary Care Provider Active Start: January 25, 2025 Dr. Mallory Baum DO Admit Provider Active Start: January 25, 2025 Dr. Mallory Baum DO Referring Provider Act peter Start: January 25, 2025 Dr. Mallory Baum DO Other Provider Active Start: January 25, 2025 Dr. Kolby Mantilla MD Other Provider Active Star t: January 25, 2025 JOSIAH Schroeder Attending Provider Act peter Start: January 25, 2025 (unrecognized sect ion and content) No Status Records Found INFORMATION SOURCE (unrecogn ized section and content) DATE CREATED AUTHOR 01/24/2025 [facility] FOR RECORDS PERTAINING TO PATIENTS WHO ARE OR HAVE BEEN ENROLLED IN A CHEMICAL DEPENDENCY/SUBSTANCEABUSE PROGRAM, SOME INFORMATION MAY BE OMITTED. This clinical summary was aggregated from multiple sources. Caution should be exercised in using it in the provision of clinical care. This summary normalizes information from multiple sources, and as a consequence, information in this document may materially change the coding, format and clinical context of patient data. In addition, data may be omitted in some cases. CLINICAL DECISIONS SHOULD BE BASED ON THE PRIMARY CLINICAL RECORDS. [employer] provides no warranty or guarantee of the accuracy or completeness of information in this document.
[2025-01-26 16:28] VITALS: BMI 36.2
[2025-01-26 16:35] VITALS: BP 99/66; PULSE 69; RESP 17; TEMP 36.9; O2SAT 96
--- NOTE | 2025-01-26 17:16 | PCM.HP.STD ---
HPI - General General Date of Admission: 01/26/25 Date of Service: 01/28/25 Chief Complaint: Here for rehabilitation. HPI Narrative ISA MILES, is a 89 Male who presents with followin01/11/2025 Admit RU multiple rib fractures, uncontrolled pain. Fell 01/10/2025 with right 8th, 9th, 10th rib fractures, sent home with [place]. Uncontrolled pain, unable to care for self. Pain 02/03. Celebrex, Tylenol, Oxycodone, Tizanidine, IS, pain management consult, pulmonary toilet for rib fracture pain. 01/12/2025 PT/OT, Oxycodone for pain. Bowel regimen. 01/14/2025 Dulcolax 10mg daily, Hold Lasix for 2 days. MARIO wraps bilateral lower extremities for edema. 01/15/2025 Dr. Mantilla performed right intercostal blocks for multiple right fracture pain. 01/16/2025 Right rib pain much better. Stop Lidoderm patches, taper Oxycodone after intercostal blocks. Add low dose ACEI for Hypertension. 01/21/2025 Marinelli, Tamsulosin, decrease narcotics for urinary retention. Miralax, senna 2 tablets bid for constipation. Hold Furosemide, swelling resolved, home Furosemide is taken as needed. 01/22/2025 Voiding trial 01/24/2025. Attempt to stop Tizanidine. 01/23/2025 Plan TCU at discharge. Furosemide is supposed to be prn. 01/26/2025 Keflex 500mg po bid thru 02/03/2025 for Proteus Mirabilis urinary tract infection. Admit to TCU with debility, here for rehabilitation, strengthening, prior to discharge home alone. [facility] Medical History (Updated 01/26/25 @ 17:[address] Kaiser Pan MD) Hypokalemia Debility Thrombocytopenia Hemorrhoids Venous insufficiency (chronic) (peripheral) Class II obesity Chronic constipation Chronic renal failure, stage 3a Presbycusis of both ears Pulmonary hypertension (HFpEF) heart failure with preserved ejection fraction Dyslipidemia COVID-19 Aortic valve stenosis, nonrheumatic Coronary artery disease Gastroesophageal reflux disease Benign prostate hyperplasia Weakness Pressure injury of left buttock, stage 1 Stenosis, spinal, lumbar Neck pain Segmental and somatic dysfunction of thoracic region Segmental and somatic dysfunction of pelvic region Segmental and somatic dysfunction of lumbar region Segmental and somatic dysfunction of cervical region Degenerative disc disease, cervical Sleep apnea, obstructive Nonrheumatic aortic (valve) insufficiency Pure hypercholesterolemia Essential hypertension Neuropathic pain Hypokalemia GERD (gastroesophageal reflux disease) BPH (benign prostatic hyperplasia) Left trigger finger Left carpal tunnel syndrome Benign paroxysmal positional vertigo Fall Debility Laceration of head Dyspnea on exertion Prinzmetal angina CAD (coronary artery disease) Malignant pericardial effusion Atrial flutter Precordial chest pain History of percutaneous transluminal coronary angioplasty Abnormal result of cardiovascular function study, unspecified Pain in left shoulder Atherosclerosis of coronary artery bypass graft(s), unspecified, with other forms of angina pectoris Intermittent claudication Home Medications ?Medication ?Instructions ?Recorded ?Last Taken ?Type tamsulosin 0.4 mg capsule 0.4 mg PO DAILY URINE FLOW 03/06/16 01/19/24 History aspirin 81 mg tablet,delayed 81 mg PO DAILY [facility] health 07/04/18 01/26/25 History release (Marisela Low Dose Aspirin) omeprazole 40 mg capsule,delayed 40 mg PO DAILY acid reflux 07/04/18 01/26/25 History release potassium chloride 20 mEq 20 meq PO DAILY supplement 07/04/18 01/19/24 History tablet,extended release Held on 01/23/25. Instructions: He is no longer taking Lasix. Resume if he takes Lasix multivitamin 1 tab PO DAILY supplement 04/15/22 01/26/25 History nitroglycerin 0.4 mg sublingual 0.4 mg sublingual Q5-15M PRN Chest 07/17/24 Unknown Rx tablet Pain #25 tabs ranolazine 1,000 mg 1,000 mg PO BID Heart 07/17/24 Unknown History tablet,extended release,12 hr latanoprost 0.005 % eye drops 1 drp ophthalmic (eye) QHS eye 01/11/25 01/25/25 History health Petrolatum 33% [Eucerin Eqivalent] 1 applic topical QHS skin #1 applic 01/23/25 Unknown Rx acetaminophen 500 mg tablet 1,000 mg (2 x 500 mg) PO Q8 pain 01/23/25 01/26/25 Rx #1 TAB bisacodyl 10 mg rectal suppository 10 mg DE X1 PRN Constipation #1 ea 01/23/25 Unknown Rx celecoxib 200 mg capsule 200 mg PO DAILY pain #1 cap 01/23/25 01/26/25 Rx enoxaparin 40 mg/0.4 mL 40 mg (0.4 mL) subcut DAILY@0600 01/23/25 01/26/25 Rx subcutaneous syringe blood thinner #1 mL hydrocortisone acetate 25 mg 25 mg DE BID PRN PRN Hemorrhoids 01/23/25 Unknown Rx rectal suppository #1 ea lisinopril 2.5 mg tablet 2.5 mg PO DAILY blood pressure #1 01/23/25 01/26/25 Rx TAB magnesium hydroxide 400 mg/5 mL 30 ml PO X1 PRN Constipation #1 mL 01/23/25 Unknown Rx oral suspension menthol 0.44 %-zinc oxide 20.6 % 1 applic topical BID skin #1 g 01/23/25 01/26/25 Rx topical ointment (Calmoseptine) nystatin 100,000 unit/gram topical 1 applic topical 0600,2200 skin #1 01/23/25 01/26/25 Rx powder g oxycodone 5 mg tablet 5 mg PO Q6H PRN pain 1 day #1 TAB 01/23/25 Unknown Rx saliva substitute combo no.9 15 ml mucous membrane 5X/DAY PRN 01/23/25 Unknown Rx (Biotene Dry Mouth Oral Rinse Dry Mouth #1 mL mouthwash) sennosides 8.6 mg-docusate sodium 2 tab PO BID constipation #1 TAB 01/23/25 01/26/25 Rx 50 mg tablet (Stimulant Laxative Plus) cephalexin 500 mg capsule 500 mg PO BID antibiotic 01/26/25 Unknown History Allergy/AdvReac Type Severity Reaction Status Date / Time tramadol (From [facility]) AdvReac Other Verified 01/10/25 10:15 Family History Father CAD (coronary artery disease) CHF (congestive heart failure) Mother Heart disease Brother Diabetes Cancer Hx of CABG CAD (coronary artery disease) Sister COPD (chronic obstructive pulmonary disease) Diabetes Surgical History Status post total knee replacement, right H/O shoulder surgery History of carpal tunnel surgery History of bilateral knee replacement Hx of CABG (~05/2005) History of arthroscopy (~07/2011) H/O cardiac radiofrequency ablation (~10/2006) History of PTCA History of left heart catheterization (LHC) (~09/2007) Social History household members: none housing: other details: lives in a converted garage at his son's house. number of children: 2 current occupational status: retired Smoking Status: Never smoker alcohol intake: never substance use type: does not use caffeine: No what type of physical activity do you participate in: none seatbelt use: always do you feel safe at home: Yes ROS Constitutional Constitutional: Reports weakness; Denies chills, fever(s) or weight gain ENT HEENT: Denies headache(s), nasal congestion or nasal discharge Cardiovascular Cardiovascular: Denies chest pain or palpitations Respiratory/Chest Respiratory/Chest: Denies cough, excessive phlegm production or shortness of breath with exertion Gastrointestinal Gastrointestinal: Denies abdominal pain, nausea or vomiting Genitourinary Genitourinary: Denies dysuria Musculoskeletal Musculoskeletal: Denies joint pain or joint swelling Integumentary Integumentary: Denies rash or wounds Neurologic Neurologic: Denies focal weakness, numbness or tingling Psychiatric Psychiatric: Denies anxiety, auditory hallucinations, depression, homicidal ideation or suicidal ideation Vital Signs Vital Signs Vital Signs: 01/26/25 16:35 Temperature 98.4 F Temperature Source Temporal Pulse Rate 69 Respiratory Rate 17 Blood Pressure 99/66 Blood Pressure Mean 77 Blood Pressure Source Monitor Blood Pressure Position Sitting Blood Pressure Location Right Arm Pulse Ox 96 Oxygen Delivery Method Room Air Weight Weight: 111.221 kg Body Mass Index (BMI) 36.2 Physical Exam Const alert General Appearance: cooperative HEENT normocephalic Eyes PERRL and EOMs intact bilaterally Neck supple, no JVD and no carotid bruits Resp normal respiratory effort, normal air movement and clear to auscultation bilaterally Cardio regular rate and regular rhythm GI normal to inspection, nondistended, normoactive bowel sounds, non-tender and non-distended Bladder / Kidney Exam: catheter in place urethral Extremity normal capillary refill General Extremity: Negative for edema Skin no rashes or lesions noted General Skin Exam: no breakdown Psych affect normal Appearance: appropriate Results Lab / Micro Data 01/27/25 06:58 01/27/25 06:58 Assessment & Plan Assessment/Plan (1) Debility: (2) Multiple rib fractures: QUALIFIERS: Encounter type: subsequent encounter Fracture type: closed Laterality: bilateral Qualified Code(s): S22.43XD - Multiple fractures of ribs, bilateral, subsequent encounter for fracture with routine healing (3) BPH (benign prostatic hyperplasia): (4) Coronary artery disease: (5) GERD (gastroesophageal reflux disease): QUALIFIERS: Esophagitis presence: without esophagitis Qualified Code(s): K21.9 - Gastro-esophageal reflux disease without esophagitis (6) Hypokalemia: (7) Chronic heart failure with preserved ejection fraction (HFpEF): (8) Glaucoma: PLAN: Plan 89 year old male with below past medical history admitted to with debility 2/2 uncontrolled pain 2/2 multiple rib fractures, improved after intercostal blocks, transferred to TCU, here for rehabilitation, strengthening, prior to discharge home alone. Debility - PT/OT. Pain - Tylenol 1000mg q8, Celebrex 200mg daily, Oxycodone 5mg q4 prn pain (1-10). Bowel - senna/colace 2 tablets bid, Magnesium citrate 300mL daily prn. Adult immunization - Administer pneumonia vaccine, covid vaccine, flu vaccine as appropriate. DVT prophylaxis - Lovenox 40mg sc daily. Coronary artery disease - Ranexa 1000mg bid, aspirin 81mg daily, ntg 0.4mg sl q5m prn. P. Mirabilis urinary tract infection - Keflex 500mg bid thru 02/03/2025. Hemorrhoids - Anusol 25mg rc bid prn. Glaucoma - Latanoprost 1gtt ou qhs. Skin irritation - Calmoseptine topical bid, Euerin topical qhs. Tinea Corporis - Nystatin powder topical bid. GERD - Pantoprazole 40mg daily. Dry mouth - Saliva 15mL 5x/day prn. BPH/Urinary retention - Tamsulosin 0.4mg daily, indwelling marinelli catheter, voiding trials.
[2025-01-26] MEDS: Latanoprost 0.005% 1 Bottle 1 DRP OPHTHALMIC (19:52)
[2025-01-26] MEDS: Senna/Docusate Sodium 1 Tablet 2 TABLET PO (19:53)
[2025-01-26] MEDS: Petrolatum 33% Tube 1 APPLIC TOPICAL (19:54)
[2025-01-27 07:16] LABS: Hematocrit 38.5 % (40-54); Hemoglobin 13.6 g/dL (13.0-16.5); Immature Granulocytes Count 0.170 X10^3/uL (0.0-0.0); Mean Corp Hgb Conc 35.3 g/dL (32-36); Mean Corpuscular Volume 106.9 fL (80-94); Mean Platelet Vol. 12.0 fl (6.2-12.0); NRBC Flagged by Analyzer 0 % (0-5); POSITIVE DIFFERENTIAL YES; Platelet Count 140 K/mm3 (150-450); RBC Distribution Width CV 15.0 % (11.6-14.6); RBC Distribution Width SD 60.5 fl (35.1-43.9); Red Blood Count 3.60 M/mm3 (4.6-6.2); White Blood Count 18.2 K/mm3 (4.4-11.0)
[2025-01-27 07:21] LABS: Differential Indicated SCAN CRITERIA MET
[2025-01-27 08:10] LABS: Anion Gap 14 (5-15); BUN 27 mg/dL (4-19); BUN/Creat Ratio 22.9 RATIO (10-20); Calcium,Total 9.5 mg/dL (7.6-11.0); Carbon Dioxide 18.6 mmol/L (21.0-32.0); Chloride 104 mmol/L (98-108); Estimated Creatinine Clearance 54.22 ml/min (50-250); Glucose 122 mg/dL (70-99); Potassium 5.0 mmol/L (3.3-5.1)
[2025-01-27 08:21] VITALS: BP 98/50; PULSE 80; RESP 16; TEMP 37.2; O2SAT 94
[2025-01-27] MEDS: Aspirin E.C. 81 MG Tablet PO (08:24)
[2025-01-27] MEDS: Senna/Docusate Sodium 1 Tablet 2 TABLET PO (08:25)
[2025-01-27] MEDS: Magnesium Citrate 300 ML PO (08:31)
[2025-01-27] MEDS: Tuberculin,Purif.prot.deriv. 50 TU/ML Vial 0.1 ML ID (14:00)
[2025-01-27] MEDS: Petrolatum 33% Tube 1 APPLIC TOPICAL (22:42)
[2025-01-27] MEDS: Latanoprost 0.005% 1 Bottle 1 DRP OPHTHALMIC (22:43)
--- NOTE | 2025-01-28 05:20 | NURSING ---
THIS NURSE WAS ALERTED BY CRUCIBLE FURNACE TENDER AT 0000 THAT PATIENT WAS C/O CHEST PAIN TO PREVIOUS SHIFT, THIS NURSE IMMEDIATELY ASSESSED PATIENT, PATIENT HAD STABLE VITAL SIGNS AND NO LONGER HAS COMPLAINTS OF CHEST PAIN, CONTINUED TO MONITOR PATIENT THROUGHOUT THIS SHIFT PATIENT CONTINUED TO HAVE STABLE VITAL SIGNS. THIS NURSE LOOKED AT PATIENTS TRENDS OF BP AND PULSE RATE, PREVIOUS SHIFT RN ULISES DOCUMENTED LOW BP THROUGHOUT HER SHIFT, PATIENT BP 148/80 THIS SHIFT. COMMUNICATION NOTE LEFT FOR REGARDING THIS. WILL CONTINUE TO MONITOR AND NOTIFIED KACI ALFREDO.
[2025-01-28] MEDS: Aspirin E.C. 81 MG Tablet PO (09:58)
[2025-01-28 10:07] VITALS: BP 104/67; PULSE 63; RESP 18; TEMP 36.6; O2SAT 96
--- NOTE | 2025-01-28 11:14 | PHA.CONS_ITS ---
Documented by User: Bartolo Fu 01/28/25 11:29 TCU RX Drug Regimen Review Subjective/Objective Subjective/Objective Subjective: TCU admission note. 89 year old male with below past medical history admitted to with debility 2/2 uncontrolled pain 2/2 multiple rib fractures, improved after intercostal blocks, transferred to TCU, here for rehabilitation, strengthening, prior to discharge home alone. Objective: Allergies tramadol (From [facility]) Adverse Reaction (Verified 01/10/25 10:15) Other DIZZINESS, WEAKNESS, LIGHT HEADEDNESS Current Medications Generic Name Dose Route Start Last Admin Trade Name Freq PRN Reason Stop Dose Admin Acetaminophen 1,000 mg 01/26/25 22:00 01/28/25 05:50 Acetaminophen 500 Mg Tablet PO 1,000 mg Q8 IRENA Administration Aspirin 81 mg 01/27/25 08:00 01/28/25 09:58 Aspirin E.C. 81 Mg Tablet PO 81 mg BREAKFAST IRENA Administration Calamine/Phenol 1 applic 01/26/25 22:00 01/28/25 09:58 Menthol/Lanolin/Calamine/Znox 113 Gm Tube TOPICAL 1 applic BID IRENA Administration Protocol Celecoxib 200 mg 01/27/25 10:00 01/28/25 09:58 Celecoxib 200 Mg Capsule PO 200 mg DAILY IRENA Administration Cephalexin 500 mg 01/26/25 22:00 01/28/25 09:59 Cephalexin 500 Mg Capsule PO 02/03/25 10:01 500 mg BID IRENA Administration Enoxaparin Sodium 40 mg 01/27/25 06:00 01/28/25 05:49 Enoxaparin 40 Mg/0.4 Ml Syringe SC 40 mg DAILY@0600 IRENA Administration Hydrocortisone Acetate 25 mg 01/26/25 17:01 Hydrocortisone 25 Mg Suppository RC BID PRN PRN Hemorrhoids Latanoprost 1 drp 01/26/25 22:00 01/27/25 22:43 Latanoprost 0.005% 1 Bottle OPHTHALMIC 1 drp QHS IRENA Administration Magnesium Citrate 300 ml 01/26/25 17:31 01/27/25 08:31 Magnesium Citrate 300 Ml PO 300 ml DAILY PRN Administration Constipation Multi-Ingredient Cream 1 applic 01/26/25 22:00 01/27/25 22:42 Petrolatum 33% Tube TOPICAL 1 applic QHS IRENA Administration Nitroglycerin 0.4 mg 01/26/25 17:23 Nitroglycerin (Inpatient Use) 0.4 Mg Tab.Subl SL Q5M PRN CARDIAC/CHEST PAIN Nystatin 1 applic 01/26/25 22:00 01/28/25 05:49 Nystatin Powder 15gm Bottle TOPICAL 1 applic 0600,2200 IRENA Administration Protocol Oxycodone HCl 5 mg 01/26/25 17:28 01/28/25 10:04 Oxycodone 5 Mg Tablet PO 5 mg Q4H PRN PRN Administration Pain Score 1-10 Pantoprazole Sodium 40 mg 01/27/25 10:00 01/28/25 09:59 Pantoprazole Sodium 40 Mg Tablet PO 40 mg DAILY IRENA Administration Ranolazine 1,000 mg 01/26/25 22:00 01/28/25 10:00 Ranolazine 500 Mg Tablet PO 1,000 mg BID IRENA Administration Saliva Substitute 15 ml 01/26/25 17:01 Saliva Substitute 237 Ml Bottle MUCOUS MEM 5X/DAY PRN Dry Mouth Senna/Docusate Sodium 2 tablet 01/26/25 22:00 01/28/25 10:00 Senna/Docusate Sodium 1 Tablet PO Not Given BID [facility] Tamsulosin HCl 0.4 mg 01/27/25 10:00 01/28/25 09:59 Tamsulosin Hcl 0.4 Mg Capsule PO 0.4 mg BID IRENA Administration Tuberculin PPD 0.1 ml 02/03/25 10:00 Tuberculin,Purif.Prot.Deriv. 50 Tu/Ml Vial ID 02/03/25 10:01 X1 ONE Problem List Glaucoma (Acute) Chronic heart failure with preserved ejection fraction (HFpEF) (Acute) Hypokalemia (Acute) Debility (Acute) Multiple rib fractures (Acute) Coronary artery disease (Chronic) BPH (benign prostatic hyperplasia) (Chronic) GERD (gastroesophageal reflux disease) (Chronic) Vital Signs Temp Pulse Resp BP Pulse Ox O2 Del Method 97.9 F 63 18 104/67 96 Room Air 01/28/25 10:07 01/28/25 10:07 01/28/25 10:07 01/28/25 10:07 01/28/25 10:07 01/28/25 10:07 Oxygen Delivery Method Room Air Weight: 111.2 kg Body Mass Index (BMI) 36.2 Sodium 137 mmol/L (133-145) 01/27/25 06:58 Potassium 5.0 mmol/L (3.3-5.1) 01/27/25 06:58 Chloride 104 mmol/L (98-108) 01/27/25 06:58 Carbon Dioxide 18.6 mmol/L (21.0-32.0) L 01/27/25 06:58 Anion Gap 14 (5-15) 01/27/25 06:58 BUN 27 mg/dL (4-19) H 01/27/25 06:58 Creatinine 1.18 mg/dL (0.70-1.20) 01/27/25 06:58 Est GFR (MDRD) Non-Af 60 (>60) 01/27/25 06:58 BUN/Creatinine Ratio 22.9 RATIO (10-20) H 01/27/25 06:58 Glucose 122 mg/dL (70-99) H 01/27/25 06:58 Assessment/Plan: 1. Pain: acetaminophen 1000 mg PO Q8H, celecoxib 200 mg PO daily, oxycodone 5 mg PO Q4H PRN pain (4-10). The patient has required 1 dose of PRN oxycodone so far this admission. Please continue to monitor pain levels, PRN medication usage, LFTs (AST/ALT = 35/16 U/L on 01/11/25), renal function (serum creatinine = 1.18 mg/dL with creatinine clearance ~ 54 mL/min on 01/27/25), for GI distress with celecoxib administration, for constipation, respiratory depression, dizziness/drowsiness, and for syncope/ataxia/falls. 2. Bowel: senna/docusate 2 tablets PO BID, magnesium citrate 300 mL PO daily PRN constipation. The patient has used x 1 PRN dose of magnesium citrate so far this admission, and the patient's last bowel movement was on 01/28/25. Please continue to monitor for PRN medication administration, bowel movements, constipation and diarrhea. 3. DVT prophylaxis: enoxaparin 40 mg SC daily. Please continue to monitor for s/s of a DVT such as pain/erythema/swelling in an extremity, renal function (serum creatinine = 1.18 mg/dL with creatinine clearance ~ 54 mL/min on 01/27/25), for s/s of bleeding/excessive bruising, hemoglobin levels (Hgb = 13.6 g/dL on 01/27/25), and platelet counts (Plt = 140 K/mm3 on 01/27/25). 4. Coronary artery disease: ranolazine 1000 mg PO BID, aspirin 81 mg PO daily, nitroglycerin 0.4 mg SL Q5M PRN chest pain. The patient has not required any PRN doses of nitroglycerin so far this admission. Please continue to monitor for PRN medication usage, chest pain, GI distress with aspirin administration, for bleeding/excessive bruising, for dizziness/headache, hemoglobin levels (Hgb = 13.6 g/dL on 01/27/25), and platelet counts (Plt = 140 K/mm3 on 01/27/25). 5. Urinary tract infection: cephalexin 500 mg PO BID through 02/03/25. Please continue to monitor for s/s of urinary tract infection including dysuria, frequency, urgency, WBC counts (WBC = 18.2 K/mm3 on 01/27/25), fevers (T = 97.9 F), renal function (serum creatinine = 1.18 mg/dL with creatinine clearance ~ 54 mL/min on 01/27/25), for diarrhea, and for GI distress with cephalexin administration. 6. BPH/urinary retention: tamsulosin 0.4 mg PO BID. Please continue to monitor for s/s of orthostasis and for urinary retention. 7. GERD: pantoprazole 40 mg PO daily. Please continue to monitor for s/s of GERD, for diarrhea that could indicate clostridium difficile infection, and for s/s of bone resorption such as fractures. 8. Hemorrhoids: hydrocortisone 25 mg ME BID PRN hemorrhoids. The patient has not required any PRN doses of hydrocortisone so far this admission. Please continue to monitor for hemorrhoids and for PRN medication usage. 9. Glaucoma: latanoprost 0.005% 1 drop in each eye QHS. Please continue to monitor eye health. 10. Dry mouth: saliva substitute 15 mL PO 5x/day PRN dry mouth. The patient has not required any PRN doses of saliva substitute so far this admission. Please continue to monitor for dry mouth and PRN medication usage. 11. Skin irritation/tinea corporis: nystatin powder topically BID, calmoseptine 1 application topically BID, petrolatum 33% 1 application topically QHS. Please continue to monitor for resolution of tinea corporis and for skin irritation. Assessment/Plan for indications treated with psychotropic medications: NA Medical chart and medication regimen reviewed. The following medication irregularities or issues were identified: NA Date Date of Note: 01/28/25 Documented by User: Dr. Kaiser Pan MD 01/28/25 11:50 TCU RX Drug Regimen Review Provider Comments Provider responsibility Provider Comments to Recommendations by Pharmacy Agree
[2025-01-28 13:20] VITALS: PULSE 58; RESP 18; O2SAT 94
[2025-01-28] MEDS: Petrolatum 33% Tube 1 APPLIC TOPICAL (21:21)
[2025-01-28] MEDS: Senna/Docusate Sodium 1 Tablet 2 TABLET PO (21:22)
[2025-01-28] MEDS: Latanoprost 0.005% 1 Bottle 1 DRP OPHTHALMIC (21:23)
[2025-01-29] MEDS: Aspirin E.C. 81 MG Tablet PO (09:23)
[2025-01-29 09:28] VITALS: BP 116/59; PULSE 80; RESP 16; O2SAT 96
[2025-01-29 12:30] VITALS: BMI 36.1
[2025-01-29 13:47] VITALS: TEMP 37.2
[2025-01-29 20:00] VITALS: O2SAT 96
[2025-01-29] MEDS: Petrolatum 33% Tube 1 APPLIC TOPICAL (21:32)
[2025-01-29] MEDS: Senna/Docusate Sodium 1 Tablet 2 TABLET PO (21:35)
[2025-01-29] MEDS: Latanoprost 0.005% 1 Bottle 1 DRP OPHTHALMIC (21:36)
[2025-01-30] MEDS: Aspirin E.C. 81 MG Tablet PO (08:45)
[2025-01-30] MEDS: Senna/Docusate Sodium 1 Tablet 2 TABLET PO ×2 (08:46→20:26)
--- NOTE | 2025-01-30 09:43 | CASEMGMT ---
Social Work IDT met with patient and son at bedside, then dtr via conference call for care plan meeting. Discussed patient's progress in PT/OT/SN/RDN. Educated to Medicare benefit. Provided pt/family with written communication of insurance process and copay coverage during stay. Pt inquired about DC. SW explained pt is doing well overall and can elect to DC at anytime, though, acknowledged pt still has marinelli and unsure when that would be removed/if DC'd prior to DC. Son and dtr expressed significant frustration with lack of follow up with urologist. Son does not feel comfortable caring for marinelli at DC, as he is the only caregiver. Son voiced several other frustrations. Referred to RN on unit and Director to follow up. SW will continue to follow for DC plans. Juliet Orr MSW RUG WEAVER
--- NOTE | 2025-01-30 11:49 | WOUNDNOTE ---
wound photo: left buttock
--- NOTE | 2025-01-30 13:07 | NURSING ---
Color Sprayer Note; Activity Asset: Lo Waldrop prefers to be called Kenan. Kenan is independent in his choice of daily activities and stated he prefers to us his phone for tv, reading, games and talking w/family. He is not interested in the slitting machine operator helper or [facility] visiting him. He welcomes the therapy dog and staff visits. Staff will remind him of weekly activities and respect his right to say no.
[2025-01-30] MEDS: Juven (unflavored) Packet 1 PACKET PO (16:08)
[2025-01-30 16:46] VITALS: BP 127/72; PULSE 76; TEMP 37.1; O2SAT 97
[2025-01-30 19:00] VITALS: PULSE 86; RESP 18; O2SAT 96
[2025-01-30] MEDS: Petrolatum 33% Tube 1 APPLIC TOPICAL (20:24)
[2025-01-30] MEDS: Latanoprost 0.005% 1 Bottle 1 DRP OPHTHALMIC (20:27)
[2025-01-31] MEDS: Aspirin E.C. 81 MG Tablet PO (09:19)
[2025-01-31] MEDS: Juven (unflavored) Packet 1 PACKET PO ×2 (09:19→17:45)
[2025-01-31] MEDS: Senna/Docusate Sodium 1 Tablet 2 TABLET PO ×2 (09:19→21:42)
[2025-01-31 09:26] VITALS: BP 138/84; PULSE 89; RESP 16; TEMP 36.4; O2SAT 96
[2025-01-31 10:00] VITALS: PULSE 69; RESP 18; O2SAT 97
--- NOTE | 2025-01-31 10:53 | EKG12_ITS ---
Test Reason : cp Blood Pressure : */* mmHG Vent. Rate : 74 BPM Atrial Rate : 74 BPM P-R Int : 174 ms QRS Dur : 98 ms QT Int : 376 ms P-R-T Axes : 64 9 63 degrees QTcB Int : 417 ms Sinus rhythm with Premature atrial complexes Septal infarct (cited on or before 14-Jan-2025) Abnormal ECG When compared with ECG of 14-Jan-2025 18:01, Premature atrial complexes are now Present CA interval has decreased QRS axis Shifted right QT has shortened Confirmed by BILL MENDES ([id number]), newspaper editor managing SIM MARIE ([id number]) on 02/04/2025 7:38:40 AM Referred By: Maxim Confirmed By: BILL MENDES
--- NOTE | 2025-01-31 11:12 | NURSING ---
Addendum entered by Aide Bernard 01/31/25 11:45: Dr. Pan called this nurse and asked if pt has Nitroglycerin updated Dr. Pan that pt refused Nitroglycerin at the time of chest pain. Per Dr. Pan keep monitoring chest pain. Nurse went into pts room shortly after talking with Dr. Pan per pt Chest pain at that time was 0. Original Note: Patient calls out at 1055 with complaint of chest pain. This nurse enters room and patient c/o pain in chest and right side of jaw. VS 121/67 96% on RA and hr 78. Patient denies need for nitroglycerin, stating he does not want the headache and pain is improving. STAT EKG ordered and RT up at 1105 to do. Results and situation sent to Dr. Pan.
--- NOTE | 2025-01-31 13:18 | MDS.RN ---
Pain assessment for MDS complete.
--- NOTE | 2025-01-31 17:16 | NURSING ---
Pt's Son approached nursing station to ask this nurse questions about his father. Pt's son upset that pt may need to go home with Don Catheter. Let pt's Son know that we did try to make appt with Dr. Bailey but was not able to do so d/t Dr. Bailey will not f/u until after discharge. Son concerned with Don care and that he does not feel comfortable with taking care of a Don. Educated pt's son on Don care and showed him how to empty catheter. Son was appreciative of education. Let Son know that we will continue to show him how to empty and care for catheter until he feels comfortable with home care. Son also asking questions about event that happened this morning. Updated Son on pt's c/o of chest pain and that we had no acute findings at that time. Per Son his dad is confused and doesn't always get the story straight. This nurse actively listened to sons concerns and answered question. Son also stated that his meals have been getting messed up and he is not getting the right things. He stated he ordered Pancakes and Omelet this morning and got coffee with it which he does not drink. This nurse describe how the process or ordering meals works and that he may have ordered the special which may include coffee. Pt's son understood and This nurse gave paper copy of menu to help order meal tomorrow. Pt's son appreciative.
[2025-01-31] MEDS: Petrolatum 33% Tube 1 APPLIC TOPICAL (21:39)
[2025-01-31] MEDS: Latanoprost 0.005% 1 Bottle 1 DRP OPHTHALMIC (21:43)
--- NOTE | 2025-01-31 21:55 | NURSING ---
PATIENT CALLED OUT FOR NURSE THIS NURSE AND RN (NR) APPROACHED PATIENT THIS EVENING AT 2114, PATIENT WAS IRRITABLE AND AGGRAVATED REGARDING HOW HIS DAY WENT. THIS NURSE AND RN ATTEMPTED TO REASSURE PATIENT AND PROVIDE PATIENT WITH ALL HIS NEEDS. PATIENT WAS REQUESTING TO HAVE PAIN MEDICATION ADMINISTERED RIGHT NOW SO THIS NURSE WENT AHEAD AND GAVE THIS PATIENT HIS MEDICATION FOR THE EVENING. PATIENT C/O CATHETER PAIN AND IRRITATION REGARDING WHEN CATHETER WILL BE REMOVED, PATIENT ALSO C/O MEALS AND IS REQUESTING TO HAVE SMALLER PORTIONS FOR MEALS. THIS NURSE REASSURED PATIENT REGARDING CATHETER CARE AND EDUCATED PATIENT ON PROPER HYGIENE TO HELP MINIMIZE IRRITATION, PROVIDED PATIENT WITH INFORMATION REGARDING CATHETER REMOVAL AND THE PLAN OF CARE AND FOLLOW UP NEEDED. PROVIDED PATIENT WITH PAIN MEDICATION THIS EVENING WILL CONTINUE TO ASSESS AND MONITOR.
[2025-02-01 05:46] LABS: Hematocrit 36.8 % (40-54); Hemoglobin 12.6 g/dL (13.0-16.5); Immature Granulocytes Count 0.090 X10^3/uL (0.0-0.0); Mean Corp Hgb Conc 34.2 g/dL (32-36); Mean Corpuscular Volume 106.7 fL (80-94); Mean Platelet Vol. 12.0 fl (6.2-12.0); NRBC Flagged by Analyzer 0 % (0-5); POSITIVE DIFFERENTIAL YES; Platelet Count 143 K/mm3 (150-450); RBC Distribution Width CV 14.6 % (11.6-14.6); RBC Distribution Width SD 57.3 fl (35.1-43.9); Red Blood Count 3.45 M/mm3 (4.6-6.2); White Blood Count 5.5 K/mm3 (4.4-11.0)
[2025-02-01 06:13] LABS: Anion Gap 11 (5-15); BUN 34 mg/dL (4-19); BUN/Creat Ratio 34.4 RATIO (10-20); Calcium,Total 9.6 mg/dL (7.6-11.0); Carbon Dioxide 23.9 mmol/L (21.0-32.0); Chloride 104 mmol/L (98-108); Estimated Creatinine Clearance 63.76 ml/min (50-250); Glucose 116 mg/dL (70-99); Potassium 4.4 mmol/L (3.3-5.1)
[2025-02-01 06:36] LABS: Differential Indicated SCAN CRITERIA MET
--- NOTE | 2025-02-01 09:26 | CASEMGMT ---
Social Work SKYLA received VM from son at the end of business hours yesterday, and returned call this date. SW provided extensive active listening as son expressed frustrations with lack of communication and other issues with pt during stay. Son listed pt's meals have been frequently incorrect, cold, and not receiving small portions; two t-shirts are missing; and overall frustration from Dr. Bailey's inability to see the pt during stay. SW assisted with explanations as appropriate within scope and per nursing notes. SW explained this worker forwarded VM with son's issues last evening to Director to assist in resolution. SW offered son to contact Dr. Bailey's office to inquire about reason for not seeing the pt until after DC from TCU. Son also expressed frustration with lack of notification from pt's complaint of chest pain yesterday morning and those events. SW explained this worker was present during pt's complaint of chest pain. SW presented to pt's room for support and noted pt's primary nurse was with another pt, but the secondary nurse immediately responded to pt's room, completed assessment and referred for EKG. SW remained with pt at bedside until EKG arrived. SW provided active listening and noted pt's complaints on the meals as well. Provided pt with pudding, per pt's request to hold him over until lunch. Son appreciative of information, but still interested in further follow up from Director. SKYLA agreed and will update Director. SKYLA explained pending response from Leo's office, this worker can assist with DC at any time. Son expressed understanding. - SKYLA provided verbal update to Director of TCU. SKYLA collaborated with Chicken Sexer of [facility]. Juliet Orr MANUFACTURING QUALITY MANAGER MUTUAL FUND MANAGER
[2025-02-01 10:10] VITALS: BP 150/82; PULSE 91; RESP 18; TEMP 36.1; O2SAT 96
[2025-02-01] MEDS: Juven (unflavored) Packet 1 PACKET PO ×2 (10:10→17:24)
[2025-02-01] MEDS: Aspirin E.C. 81 MG Tablet PO (10:11)
[2025-02-01] MEDS: Polyethylene Glycol 3350 17 GM PACKET PO (10:12)
--- NOTE | 2025-02-01 17:46 | CASEMGMT ---
Social Work SW completed BIMS () and PHQ-9 () for MDS assessment. Son arrived at the end of assessment. Son had no further questions or concerns. SW will follow up Tuesday to determine how voiding trials went. Juliet Orr STORE HOST QUALITY SYSTEMS SPECIALIST
[2025-02-01 20:00] VITALS: PULSE 82; O2SAT 96
[2025-02-01] MEDS: Petrolatum 33% Tube 1 APPLIC TOPICAL (21:27)
[2025-02-01] MEDS: Latanoprost 0.005% 1 Bottle 1 DRP OPHTHALMIC (21:30)
[2025-02-01] MEDS: Senna/Docusate Sodium 1 Tablet 2 TABLET PO (21:30)
[2025-02-02 09:00] VITALS: BP 104/67; PULSE 72; RESP 18; TEMP 36.8; O2SAT 95
[2025-02-02] MEDS: Juven (unflavored) Packet 1 PACKET PO ×2 (09:23→17:52)
[2025-02-02] MEDS: Aspirin E.C. 81 MG Tablet PO (09:23)
[2025-02-02] MEDS: Senna/Docusate Sodium 1 Tablet 2 TABLET PO ×2 (09:24→21:59)
[2025-02-02 10:00] VITALS: RESP 16
[2025-02-02 21:54] VITALS: BP 118/67; PULSE 81
[2025-02-02] MEDS: Petrolatum 33% Tube 1 APPLIC TOPICAL (21:56)
[2025-02-02] MEDS: Latanoprost 0.005% 1 Bottle 1 DRP OPHTHALMIC (22:00)
--- NOTE | 2025-02-02 23:34 | NURSING ---
Bladder scan results at 2200 378 mL. Straight cath performed using sterile technique per order. Pt tolerated well. 600 mL of clear yellow urine drained from bladder. Education provided to pt regarding voiding trials and Don catheter placement. Pt verbalized understanding. Will continue voiding trials per protocol. Call light within reach. Pt denies further assistance. Bed in lowest position.
--- NOTE | 2025-02-03 03:31 | NURSING ---
Addendum entered by Kathy Prince 02/03/25 21:35: Patient no longer c/o dysuria after recent Marinelli catheter insertion today. Last dose of Keflex given earlier today. Patient verbalized understanding to alert nursing staff if symptoms return d/t potential recurrent UTI. Consulted Dr. Pan via telephone regarding patient's poor meal intake and patient's concerns regarding restlessness at night. Per Dr. Pan, new order for Remeron 7.5mg PO QHS. Telephone order read back and verified. Original Note: Patient continues to c/o dysuria following recent UTI. UTI currently being treated with Keflex PO 500mg BID with an end date of 02/03/25. Patient recently had marinelli removed and is on voiding trials. Recent bladder scan this shift consistent with retention. Per protocol, patient straight catheterized to remove urine from bladder. Urine yellow, clear, and has normal odor. Written communication left for Dr. Pan regarding patient's symptoms. Patient also discussed with this nurse his loss of appetite this previous shift. Patient's intake 02/02/25 was 25-50% for meals which is abnormal per patient. Patient also states he has not been able to rest well at night. This nurse asked patient if his appetite was poor towards food he likes. Patient says he could not even finish his milkshake that his family brought in, which he normally loves. This nurse questioned patient if he would be willing to try medication that stimulates/increases appetite and helps with rest. Patient agreeable to try anything that helps me get better. Written communication left for Dr. Pan.
--- NOTE | 2025-02-03 06:55 | NURSING ---
Bladder scan amount resulted in 562ml of urine in the bladder. Per protocol, patient straight catheterized using sterile technique. Patient tolerated procedure well. Approximately 580ml of clear, yellow urine emptied from bladder. Continue voiding trials per protocol. This is patient's second straight catheterization. Patient education provided on protocol with insertion of marinelli after three failed voiding trials. Patient verbalized understanding. Patient denies further assistance at this time. Call light in patient's reach.
[2025-02-03] MEDS: Juven (unflavored) Packet 1 PACKET PO ×2 (09:24→17:46)
[2025-02-03] MEDS: Aspirin E.C. 81 MG Tablet PO (09:24)
[2025-02-03] MEDS: Senna/Docusate Sodium 1 Tablet 2 TABLET PO ×2 (09:26→22:16)
[2025-02-03] MEDS: Tuberculin,Purif.prot.deriv. 50 TU/ML Vial 0.1 ML ID (09:37)
[2025-02-03 12:43] VITALS: BP 117/70; PULSE 81; RESP 16; TEMP 36.4; O2SAT 95
[2025-02-03] MEDS: Latanoprost 0.005% 1 Bottle 1 DRP OPHTHALMIC (22:17)
[2025-02-03] MEDS: Petrolatum 33% Tube 1 APPLIC TOPICAL (22:18)
[2025-02-03 22:27] VITALS: BP 130/74; PULSE 81
[2025-02-04 07:55] VITALS: BP 142/85; PULSE 73; RESP 14; TEMP 36.3; O2SAT 94
[2025-02-04] MEDS: Juven (unflavored) Packet 1 PACKET PO ×2 (08:03→16:54)
[2025-02-04] MEDS: Aspirin E.C. 81 MG Tablet PO (08:05)
--- NOTE | 2025-02-04 08:27 | NURSING ---
Securities Sales Associate Note; MDS for 02/02/2025 Complete
--- NOTE | 2025-02-04 08:52 | NURSING ---
Offered covid vaccine, VIS provided. Resident declines.
--- NOTE | 2025-02-04 14:38 | NURSING ---
Addendum entered by Salma Bowser 02/05/25 09:37: No return call from Dr. Bailey's office, called and left another VM to clarify that consult received and see if able to give a window on time when physician would be on TCU. Await return call. Original Note: Update from that son had called and is wanting resident to see Dr. Bailey while on TCU. RN called and spoke with son Benjie, he confirmed he talked with the office and was told Dr. Bailey would come by and see resident tomorrow 02/05/25 on TCU. Let him know this RN would update Dr. Pan to receive order for consult then reach out to office. Son requested to know what time physician would come by as he would need to be there. Assured him nursing would try to get a window of time he planned to come by and update son. Son also asked about a new med for appetite. Updated him that a low dose of Remeron was started, that resident slept well but was extremely tired today during therapy and that nursing left a note to update Dr. Pan. He was thankful for updates, said he will wait on return call about time Dr. Bailey coming by. RN updated Dr. Pan, received order for urology consult. Called urology office and left VM updating that consult order in and asking for a window of time that Dr. Bailey would be around tomorrow to update son.
[2025-02-04] MEDS: Petrolatum 33% Tube 1 APPLIC TOPICAL (21:00)
[2025-02-04] MEDS: Latanoprost 0.005% 1 Bottle 1 DRP OPHTHALMIC (21:04)
[2025-02-05 08:23] VITALS: BP 109/68; PULSE 85; RESP 16; TEMP 36.6; O2SAT 95
[2025-02-05] MEDS: Aspirin E.C. 81 MG Tablet PO (08:25)
[2025-02-05] MEDS: Juven (unflavored) Packet 1 PACKET PO ×2 (08:25→18:04)
[2025-02-05] MEDS: Senna/Docusate Sodium 1 Tablet 2 TABLET PO ×2 (08:26→22:43)
[2025-02-05] MEDS: Polyethylene Glycol 3350 17 GM PACKET PO (08:26)
--- NOTE | 2025-02-05 11:38 | CON.PCM_ITS ---
HPI Consult Data Date of Consult: 02/05/25 HPI Narrative Reason for Consultation: Retention of urine HPI Narrative: ISA MILES, is a 89 M who presents to the hospital with a fall and debility he is currently in rehab for strengthening and improving he had some rib fractures with his fall he also has developed retention of urine and a UTI which is being treated appropriately he is on Flomax and Proscar and still requires a catheter eventually he might to have to go home with a catheter follow-up in my office for another voiding trial or he might need surgery for his prostate if he fails voiding trial and a strong enough to have surgery this was explained to the patient and his caregiver and family members and they will follow-up in my office after discharge from rehab FOR[facility]LY [facility], [facility] Medical History (Updated 02/03/25 @ 00:00 by Background Michael) Urine retention AF (paroxysmal atrial fibrillation) Hypokalemia Debility Thrombocytopenia Hemorrhoids Venous insufficiency (chronic) (peripheral) Class II obesity Chronic constipation Chronic renal failure, stage 3a Presbycusis of both ears Pulmonary hypertension (HFpEF) heart failure with preserved ejection fraction Dyslipidemia COVID-19 Aortic valve stenosis, nonrheumatic Coronary artery disease Gastroesophageal reflux disease Benign prostate hyperplasia Weakness Pressure injury of left buttock, stage 1 Stenosis, spinal, lumbar Neck pain Segmental and somatic dysfunction of thoracic region Segmental and somatic dysfunction of pelvic region Segmental and somatic dysfunction of lumbar region Segmental and somatic dysfunction of cervical region Degenerative disc disease, cervical Sleep apnea, obstructive Nonrheumatic aortic (valve) insufficiency Pure hypercholesterolemia Essential hypertension Neuropathic pain Hypokalemia GERD (gastroesophageal reflux disease) BPH (benign prostatic hyperplasia) Left trigger finger Left carpal tunnel syndrome Benign paroxysmal positional vertigo Fall Debility Laceration of head Dyspnea on exertion Prinzmetal angina CAD (coronary artery disease) Malignant pericardial effusion Atrial flutter Precordial chest pain History of percutaneous transluminal coronary angioplasty Abnormal result of cardiovascular function study, unspecified Pain in left shoulder Atherosclerosis of coronary artery bypass graft(s), unspecified, with other forms of angina pectoris Intermittent claudication Home Medications ?Medication ?Instructions ?Recorded ?Last Taken ?Type tamsulosin 0.4 mg capsule 0.4 mg PO DAILY URINE FLOW 0 03/06/16 01/19/24 History aspirin 81 mg tablet,delayed 81 mg PO DAILY heart heal th 07/04/18 01/26/25 History release (Marisela Low Dose Aspirin) omeprazole 40 mg capsule,delayed 40 mg PO DAILY acid r eflux 07/04/18 01/26/25 History release potassium chloride 20 mEq 20 meq PO DAILY supplement 0 07/04/18 01/19/24 History tablet,extended release Held on 01/23/25. Instructions: He is no longer taking Lasix. Resume if he takes Lasix multivitamin 1 tab PO DAILY supplement 01/26/25 History nitroglycerin 0.4 mg sublingual 0.4 mg sublingual Q5-1 5M PRN Chest 07/17/24 Unknown Rx tablet Pain #25 tabs ranolazine 1,000 mg 1,000 mg PO BID Heart Unknown History tablet,extended release,12 hr latanoprost 0.005 % eye drops 1 drp ophthalmic (eye) Q HS eye 01/11/25 01/25/25 History health Petrolatum 33% [Eucerin Eqivalent] 1 applic topical QH S skin #1 applic 01/23/25 Unknown Rx acetaminophen 500 mg tablet 1,000 mg (2 x 500 mg) PO Q 8 pain 01/23/25 01/26/25 Rx #1 TAB bisacodyl 10 mg rectal suppository 10 mg IN X1 PRN Con stipation #1 ea 01/23/25 Unknown Rx celecoxib 200 mg capsule 200 mg PO DAILY pain #1 cap 01/23/25 01/26/25 Rx enoxaparin 40 mg/0.4 mL 40 mg (0.4 mL) subcut DAILY@ 0600 01/23/25 01/26/25 Rx subcutaneous syringe blood thinner #1 mL hydrocortisone acetate 25 mg 25 mg IN BID PRN PRN Hemo rrhoids 01/23/25 Unknown Rx rectal suppository #1 ea lisinopril 2.5 mg tablet 2.5 mg PO DAILY blood pressu re #1 01/23/25 01/26/25 Rx TAB magnesium hydroxide 400 mg/5 mL 30 ml PO X1 PRN Consti pation #1 mL 01/23/25 Unknown Rx oral suspension menthol 0.44 %-zinc oxide 20.6 % 1 applic topical BID skin #1 g 01/23/25 01/26/25 Rx topical ointment (Calmoseptine) nystatin 100,000 unit/gram topical 1 applic topical skin #1 01/23/25 01/26/25 Rx powder g oxycodone 5 mg tablet 5 mg PO Q6H PRN pain 1 day # 1 TAB 01/23/25 Unknown Rx saliva substitute combo no.9 15 ml mucous membrane 5X/ DAY PRN 01/23/25 Unknown Rx (Biotene Dry Mouth Oral Rinse Dry Mouth #1 mL mouthwash) sennosides 8.6 mg-docusate sodium 2 tab PO BID constip ation #1 TAB 01/23/25 01/26/25 Rx 50 mg tablet (Stimulant Laxative Plus) cephalexin 500 mg capsule 500 mg PO BID antibiotic 08/21 Unknown History Allergy/AdvReac Type Severity Reaction Status Date / Time tramadol (From [facility]) AdvReac Other Verified 01/10/25 10:15 Family History Father CAD (coronary artery disease) CHF (congestive heart failure) Mother Heart disease Brother Diabetes Cancer Hx of CABG CAD (coronary artery disease) Sister COPD (chronic obstructive pulmonary disease) Diabetes Surgical History (Updated 02/03/25 @ 00:00 by Kathryn Dademetri) Status post total knee replacement, right H/O shoulder surgery History of carpal tunnel surgery History of bilateral knee replacement Hx of CABG (~05/2005) History of arthroscopy (~07/2011) H/O cardiac radiofrequency ablation (~10/2006) History of PTCA History of left heart catheterization (LHC) (~09/2007) Social History household members: none housing: other details: lives in a converted garage at his son's house. number of children: 2 current occupational status: retired Smoking Status: Never smoker alcohol intake: never substance use type: does not use caffeine: No what type of physical activity do you participate in: none seatbelt use: always do you feel safe at home: Yes Lab / Micro Data 02/01/25 05:19 02/01/25 05:19
--- NOTE | 2025-02-05 15:32 | CASEMGMT ---
Social Work SW spoke with son after Dr. Bailey was on unit. Son aware of pt's changes this week, and agreed pt needs to be home, even though pt just sits at home and is more mobile on TCU. Pt needs to f/u with Leo outpatient after DC and determine if surgery is appropriate. SW offered to set DC date. Son and SW agreed to 02/10. Son prefers skilled HHC and acknowledge SW already provided a list of options when pt was on IRU. Son to review and notify this worker of preference. Pt has no DME needs. SW spoke with pt to confirm agreement with DC 02/10 and skilled HHC. Plan: DC home with son 02/10, HHC PT/OT/SN Juliet Orr HEAD IRRIGATOR LAN SUPPORT SPECIALIST
--- NOTE | 2025-02-05 16:30 | NURSING ---
Pt returns from cardiology appt with JOSIAH Larsen; no new orders. Received note that Echo ordered as outpatient procedure, will need to call and schedule tomorrow.
[2025-02-05 16:33] VITALS: BMI 36.1
[2025-02-05 19:55] VITALS: PULSE 70; RESP 18; O2SAT 96
--- NOTE | 2025-02-05 20:19 | PCM.DC.SUM ---
Providers Date of Admission: 01/26/25 Primary Care Physician: Dr. Kaiser Pan MD Consultations 01/30/25 10:07 Consult: Onc/Wound/fitter and turner Routine Comment: Reason for Consult:: open wound on buttocks 02/04/25 14:37 Consult: Urology Routine Consulting Provider: Dominik Bailey Reason for Consult: Urinary retention EMERGENT Consult: No MD Notified: No Date Notified: 02/04/25 Time Notified: 14:37 Reason For Visit: FALLS, RIB FRACTURES Diagnosis Discharge Diagnosis (1) Debility: Status: Acute Code(s): R53.81 - Other malaise (2) Multiple rib fractures: Status: Acute Code(s): S22.49XA - Multiple fractures of ribs, unspecified side, initial encounter for closed fracture Qualifiers: Encounter type: subsequent encounter Fracture type: closed Laterality: bilateral Qualified Code(s): S22.43XD - Multiple fractures of ribs, bilateral, subsequent encounter for fracture with routine healing (3) BPH (benign prostatic hyperplasia): Status: Chronic Code(s): N40.0 - Benign prostatic hyperplasia without lower urinary tract symptoms (4) Coronary artery disease: Status: Chronic Code(s): I25.10 - Atherosclerotic heart disease of [place] coronary artery without angina pectoris (5) GERD (gastroesophageal reflux disease): Status: Inactive Code(s): K21.9 - Gastro-esophageal reflux disease without esophagitis Qualifiers: Esophagitis presence: without esophagitis Qualified Code(s): K21.9 - Gastro-esophageal reflux disease without esophagitis (6) Hypokalemia: Status: Acute Code(s): E87.6 - Hypokalemia (7) Chronic heart failure with preserved ejection fraction (HFpEF): Status: Acute Code(s): I50.32 - Chronic diastolic (congestive) heart failure (8) Glaucoma: Status: Acute Code(s): H40.9 - Unspecified glaucoma Plan 89 year old male with below past medical history admitted to with debility 2/2 uncontrolled pain 2/2 multiple rib fractures, improved after intercostal blocks, transferred to TCU, here for rehabilitation, strengthening, prior to discharge home alone. Debility - PT/OT. Pain - Tylenol 1000mg q8, Celebrex 200mg daily, Oxycodone 5mg q4 prn pain (1-10). Bowel - senna/colace 2 tablets bid, Magnesium citrate 300mL daily prn. Adult immunization - Administer pneumonia vaccine, covid vaccine, flu vaccine as appropriate. DVT prophylaxis - Lovenox 40mg sc daily. Coronary artery disease - Ranexa 1000mg bid, aspirin 81mg daily, ntg 0.4mg sl q5m prn. P. Mirabilis urinary tract infection - Keflex 500mg bid thru 02/03/2025. Hemorrhoids - Anusol 25mg rc bid prn. Glaucoma - Latanoprost 1gtt ou qhs. Skin irritation - Calmoseptine topical bid, Euerin topical qhs. Tinea Corporis - Nystatin powder topical bid. GERD - Pantoprazole 40mg daily. Dry mouth - Saliva 15mL 5x/day prn. BPH/Urinary retention - Tamsulosin 0.4mg daily, indwelling marinelli catheter, voiding trials. Medications at Discharge Home Medications aspirin 81 mg tablet,delayed release (Marisela Low Dose Aspirin) [address] [facility] 07/04/18 omeprazole 40 mg capsule,delayed release 40 mg PO DAILY acid reflux 07/04/18 nitroglycerin 0.4 mg sublingual tablet 0.4 mg sublingual Q5-15M PRN Chest Pain #25 tabs 07/17/24 ranolazine 1,000 mg tablet,extended release,12 hr 1,000 mg PO BID [facility] 07/17/24 latanoprost 0.005 % eye drops 1 drp ophthalmic (eye) Q eye health 01/11/25 acetaminophen 500 mg tablet 1,000 mg (2 x 500 mg) PO Q8 #0 tabs 02/05/25 celecoxib 200 mg capsule 200 mg PO DAILY 30 days #30 caps 02/05/25 finasteride 5 mg tablet 5 mg PO DAILY 30 days #30 tabs 02/05/25 tamsulosin 0.4 mg capsule 0.4 mg PO BID 30 days #60 caps 02/05/25 Hospital Course Operations None Procedures None Summary of Care Provided Minutes Spent on Discharge: 35 Hospital Course: 89 year old male with below past medical history admitted to with debility 2/2 uncontrolled pain 2/2 multiple rib fractures, improved after intercostal blocks, transferred to TCU, here for rehabilitation, strengthening, prior to discharge home alone. Kenan failed multiple voiding trials, will discharge on Tamsulosin 0.4mg bid, Finasteride 5mg daily, indwelling marinelli catheter for f/u with Dr. Bailey. Discharge home with son 02/10/2025, [facility] PT/OT/SN. Physical Exam Const alert General Appearance: cooperative HEENT normocephalic Eyes PERRL and EOMs intact bilaterally Neck supple, no JVD and no carotid bruits Resp normal respiratory effort, normal air movement and clear to auscultation bilaterally Cardio regular rate and regular rhythm GI normal to inspection, nondistended, normoactive bowel sounds, non-tender and non-distended Bladder / Kidney Exam: catheter in place urethral Extremity normal capillary refill General Extremity: Negative for edema Skin no rashes or lesions noted General Skin Exam: no breakdown Psych affect normal Appearance: appropriate Weight / BMI Weight Weight: 110.495 kg Body Mass Index (BMI) 36.1 ABG / Lab / Microbiology Data 02/01/25 05:19 02/01/25 05:19 D/C Instructions Discharge Activity: Return to Normal Activity, May Shower and Use Walker Weight Bearing Status: Weight bearing as tolerated Call your doctor if you observe: Fever of 101 or Higher, Inability to urinate, Inability to have a bowel movement, Shortness of breath, Dizziness, Fainting spells, Swelling in the ankles, Chest pain and Uncontrolled pain DC O2, CPAP, BIPAP Needs Home O2 Discharge instructions: No Additional Instructions: Discharge home with son 02/10/2025, [facility] PT/OT/SN. Please Follow Up With: Basali When: As scheduled. Meaningful Use Info Meaningful Use Meaningful Use Diagnoses (Choose all that apply): None applicable Discharge Plan Admission Admit Date/Time: 01/26/25 15:50 Primary Reason for Your Visit: Debility. Attending Provider: Kaiser Pan Chi Primary Care Provider: Kaiser Pan Chi Instructions Additional Instructions / Restrictions: Discharge home with son 02/10/2025, [facility] PT/OT/SN. Discharge Orders/Prescriptions Prescriptions: New celecoxib 200 mg Capsule 200 mg PO DAILY 30 Days Qty: 30 0RF acetaminophen 500 mg Tablet 1,000 mg PO Q8 Qty: 0 0RF tamsulosin 0.4 mg Capsule 0.4 mg PO BID 30 Days Qty: 60 0RF finasteride 5 mg Tablet 5 mg PO DAILY 30 Days Qty: 30 0RF Continued aspirin [Marisela Low Dose Aspirin] 81 mg tablet,delayed release (DR/EC) 81 mg PO DAILY omeprazole 40 mg capsule,delayed release(DR/EC) 40 mg PO DAILY ranolazine 1,000 mg tablet extended release 12 hr 1,000 mg PO BID nitroglycerin 0.4 mg tablet, sublingual 0.4 mg SUBLINGUAL Q5-15M PRN (Reason: Chest Pain) Qty: 25 3RF latanoprost 0.005 % drops 1 drp ophthalmic (eye) QHS Discontinued potassium chloride 20 mEq tablet extended release 20 meq PO DAILY multivitamin Tablet 1 tab PO DAILY tamsulosin 0.4 MG capsule 0.4 mg PO DAILY Patient Comments: now taking BID cephalexin 500 mg Capsule 500 mg PO BID celecoxib 200 mg Capsule 200 mg PO DAILY Qty: 1 0RF acetaminophen 500 mg Tablet 1,000 mg PO Q8 Qty: 1 0RF hydrocortisone acetate 25 mg Suppository 25 mg NE BID PRN PRN (Reason: Hemorrhoids) Qty: 1 0RF magnesium hydroxide 400 mg/5 mL Suspension 30 ml PO X1 PRN (Reason: Constipation) Qty: 1 0RF bisacodyl 10 mg Suppository 10 mg NE X1 PRN (Reason: Constipation) Qty: 1 0RF nystatin 100,000 unit/gram Powder 1 applic topical 0600,2200 Qty: 1 0RF Protocol: *Topical Application Instructions APPLICATION INSTRUCTIONS: groin lisinopril 2.5 mg Tablet 2.5 mg PO DAILY Qty: 1 0RF enoxaparin 40 mg/0.4 mL Syringe 40 mg subcut DAILY@0600 Qty: 1 0RF menthol-zinc oxide [Calmoseptine] 0.44-20.6 % Ointment 1 applic topical BID Qty: 1 0RF Protocol: *Topical Application Instructions APPLICATION INSTRUCTIONS: Apply to buttock Petrolatum 33% [Eucerin Eqivalent] 1 applic topical QHS Qty: 1 0RF Rx Instructions: APPLY FROM THE KNEES TO THE BASE OF THE TOES AT HS sennosides-docusate sodium [Stimulant Laxative Plus] 8.6-50 mg Tablet 2 tab PO BID Qty: 1 0RF Biotene Dry Mouth Oral Rinse Mouthwash 15 ml mucous membrane 5X/DAY PRN (Reason: Dry Mouth) Qty: 1 0RF oxycodone 5 mg tablet 5 mg PO Q6H PRN (Reason: pain) 1 Days Qty: 1 0RF Referrals / Follow Up: Dominik Bailey MD [Med Staff - Active Staff] - 03/08/25 (Follow-up for urinary retention/catheter) Kaiser Pan Chi, MD [Primary Care Provider] - Within 1 Week (Transition Care Management appointment.) Disposition Disposition (needs filled in before D/C Order can be placed): Home Health Service
[2025-02-05] MEDS: Latanoprost 0.005% 1 Bottle 1 DRP OPHTHALMIC (22:44)
[2025-02-05] MEDS: Petrolatum 33% Tube 1 APPLIC TOPICAL (22:44)
[2025-02-06 05:40] VITALS: PULSE 56; O2SAT 98
[2025-02-06 05:44] VITALS: PULSE 56; RESP 16; O2SAT 98
[2025-02-06] MEDS: Polyethylene Glycol 3350 17 GM PACKET PO (09:23)
[2025-02-06] MEDS: Aspirin E.C. 81 MG Tablet PO (09:23)
[2025-02-06] MEDS: Juven (unflavored) Packet 1 PACKET PO ×2 (09:23→17:22)
[2025-02-06] MEDS: Senna/Docusate Sodium 1 Tablet 2 TABLET PO ×2 (09:24→21:30)
[2025-02-06 10:00] VITALS: BP 116/69; PULSE 92; RESP 18; TEMP 36.3; O2SAT 96
--- NOTE | 2025-02-06 11:50 | MDS.RN ---
Information for the MDS was obtained from review of the clinical record, interview of resident, staff, and direct observation of resident?s care.
[2025-02-06] MEDS: Petrolatum 33% Tube 1 APPLIC TOPICAL (21:27)
[2025-02-06] MEDS: Latanoprost 0.005% 1 Bottle 1 DRP OPHTHALMIC (21:31)
[2025-02-07] MEDS: Juven (unflavored) Packet 1 PACKET PO ×2 (09:04→18:51)
[2025-02-07] MEDS: Aspirin E.C. 81 MG Tablet PO (09:04)
--- NOTE | 2025-02-07 11:52 | CASEMGMT ---
Social Work SW phoned son to follow up on HHC choice. Son prefers [facility]. SW to place referral. SW educated HHC agency will contact pt/son for SOC date date, but typically 2-3 days after DC, pending PCP signing orders. Son expressed understanding. - SW phoned referral to [facility] PT/SN. Juliet Orr LAND COMMISSIONER [employer] MAIL CARRIER
[2025-02-07 16:00] VITALS: BP 130/83; PULSE 86; RESP 16; TEMP 36.6; O2SAT 95
[2025-02-07 21:54] VITALS: BP 128/76; PULSE 84
[2025-02-07 21:55] VITALS: PULSE 71; RESP 16; O2SAT 96
[2025-02-07] MEDS: Petrolatum 33% Tube 1 APPLIC TOPICAL (21:58)
[2025-02-07] MEDS: Senna/Docusate Sodium 1 Tablet 2 TABLET PO (21:58)
[2025-02-07] MEDS: Latanoprost 0.005% 1 Bottle 1 DRP OPHTHALMIC (21:59)
[2025-02-08 07:39] VITALS: BP 121/77; PULSE 74; RESP 18; TEMP 36.3; O2SAT 94
[2025-02-08 07:42] LABS: Hematocrit 37.1 % (40-54); Hemoglobin 12.8 g/dL (13.0-16.5); Immature Granulocytes Count 0.060 X10^3/uL (0.0-0.0); Mean Corp Hgb Conc 34.5 g/dL (32-36); Mean Corpuscular Volume 106.3 fL (80-94); Mean Platelet Vol. 11.7 fl (6.2-12.0); NRBC Flagged by Analyzer 0 % (0-5); POSITIVE DIFFERENTIAL YES; Platelet Count 140 K/mm3 (150-450); RBC Distribution Width CV 14.8 % (11.6-14.6); RBC Distribution Width SD 57.3 fl (35.1-43.9); Red Blood Count 3.49 M/mm3 (4.6-6.2); White Blood Count 5.6 K/mm3 (4.4-11.0)
[2025-02-08] MEDS: Juven (unflavored) Packet 1 PACKET PO ×2 (07:46→17:54)
[2025-02-08] MEDS: Aspirin E.C. 81 MG Tablet PO (07:46)
[2025-02-08] MEDS: Polyethylene Glycol 3350 17 GM PACKET PO (07:47)
[2025-02-08 08:07] LABS: Anion Gap 9 (5-15); BUN 35 mg/dL (4-19); BUN/Creat Ratio 31.1 RATIO (10-20); Calcium,Total 9.6 mg/dL (7.6-11.0); Carbon Dioxide 24.7 mmol/L (21.0-32.0); Chloride 104 mmol/L (98-108); Estimated Creatinine Clearance 57.44 ml/min (50-250); Glucose 119 mg/dL (70-99); Potassium 4.6 mmol/L (3.3-5.1)
--- NOTE | 2025-02-08 09:00 | NURSING ---
Called outpt scheduling about echo, they already had order and will be communicating with resident about scheduling.
--- NOTE | 2025-02-08 11:20 | MDS.RN ---
Pain assessment for MDS complete.
--- NOTE | 2025-02-08 14:10 | CASEMGMT ---
BIMS () and PHQ9 (8) interviews completed on this date for MDS assessment. SW explored positive answers to PHQ9. Pt feels that pain is a contributing factor along with loss of family members and loneliness. Pt attends a widows and widowers club which pt attends regularly and appreciates time with his friends. Pt has tried medication but states it makes him feel worse. Pt has seen a counselor in the past and is not interested at this time. SW provided empathic listening and support. ALESHA Bridges
[2025-02-08] MEDS: Senna/Docusate Sodium 1 Tablet 2 TABLET PO (23:04)
[2025-02-08] MEDS: Latanoprost 0.005% 1 Bottle 1 DRP OPHTHALMIC (23:05)
[2025-02-08] MEDS: Petrolatum 33% Tube 1 APPLIC TOPICAL (23:05)
[2025-02-08 23:16] VITALS: PULSE 70; RESP 16; O2SAT 98
[2025-02-09] MEDS: Juven (unflavored) Packet 1 PACKET PO ×2 (08:16→16:09)
[2025-02-09] MEDS: Aspirin E.C. 81 MG Tablet PO (08:16)
[2025-02-09] MEDS: Polyethylene Glycol 3350 17 GM PACKET PO (08:17)
[2025-02-09] MEDS: Senna/Docusate Sodium 1 Tablet 2 TABLET PO ×2 (08:18→21:20)
[2025-02-09 10:00] VITALS: BP 108/69; PULSE 85; RESP 16; TEMP 36.7; O2SAT 94
[2025-02-09 13:59] LABS: Mucous, Urine 0 SEEN /hpf (<or=2+)
[2025-02-09 14:05] LABS: Color, Urine Yellow (Yellow); Glucose, Dipstick Normal (Normal); Ketone-Dipstick Negative (Negative); Leukocyte Esterase-Dipstick 500 /ul (Negative); Nitrite-Dipstick Positive (Negative); Occult Blood-Urine 150 /ul (Negative); Protein-Dipstick 30 mg/dl (Negative); Specific Gravity, Urine 1.010 (1.002-1.030); Urine Bilirubin Dipstick Negative (Negative)
[2025-02-09 14:13] LABS: Red Blood Cells-Urine 0-5 SEEN /hpf (0-5); Squamous Epithelial Cells - UA 0-5 SEEN /hpf (0-5); Triple Phosphate Crystals Ur 2+ /hpf (<or=1+)
--- NOTE | 2025-02-09 17:11 | NURSING ---
Addendum entered by Namrata Lerner 02/09/25 17:16: Son Benjie made aware. Original Note: Patient C/O burning with urination and urine leaking around catheter. Dr. Pan made aware and order for UA C&S. Urine collected from Don catheter and sent to lab. Urine positive for infection and new order for Cipro. Patient made aware.
[2025-02-09] MEDS: Petrolatum 33% Tube 1 APPLIC TOPICAL (21:18)
[2025-02-09] MEDS: Latanoprost 0.005% 1 Bottle 1 DRP OPHTHALMIC (21:20)
[2025-02-10 03:23] VITALS: PULSE 90; RESP 16; O2SAT 96
[2025-02-10] MEDS: Juven (unflavored) Packet 1 PACKET PO (08:10)
[2025-02-10] MEDS: Aspirin E.C. 81 MG Tablet PO (08:12)
[2025-02-10] MEDS: Polyethylene Glycol 3350 17 GM PACKET PO (09:49)
[2025-02-10] MEDS: Senna/Docusate Sodium 1 Tablet 2 TABLET PO (09:52)
[2025-02-10 11:15] VITALS: BP 105/69; PULSE 72; RESP 17; TEMP 36.5; O2SAT 95
== END 2025-02-10 11:40 | disposition home health service (06) | DRG 560 ==
PROVIDERS: Admitting Provider Family Medicine Geriatric Medicine; PCP Family Medicine Geriatric Medicine; Visit Provider Family Medicine Geriatric Medicine
DX: S22.43XD Multiple fractures of ribs, bilateral, subsequent encounter for fracture with routine healing (principal); I50.32 Chronic diastolic (congestive) heart failure; I13.0 Hypertensive heart and chronic kidney disease with heart failure and stage 1 through stage 4 chronic kidney disease, or unspecified chronic kidney disease; N39.0 Urinary tract infection, site not specified; L89.322 Pressure ulcer of left buttock, stage 2; E66.812 Obesity, class 2; I25.10 Atherosclerotic heart disease of native coronary artery without angina pectoris; B35.4 Tinea corporis; B96.4 Proteus (mirabilis) (morganii) as the cause of diseases classified elsewhere; J84.10 Pulmonary fibrosis, unspecified; N18.31 Chronic kidney disease, stage 3a; E78.00 Pure hypercholesterolemia, unspecified; E87.6 Hypokalemia; K21.9 Gastro-esophageal reflux disease without esophagitis; W19.XXXD Unspecified fall, subsequent encounter; Z79.899 Other long term (current) drug therapy; H40.9 Unspecified glaucoma; N40.1 Benign prostatic hyperplasia with lower urinary tract symptoms; R33.8 Other retention of urine; Z79.82 Long term (current) use of aspirin; G47.00 Insomnia, unspecified; Z68.36 Body mass index [BMI] 36.0-36.9, adult
CPT/HCPCS: 36415; 80048; 81001; 85025; 87077; 87086; 87088; 87186; 93005; 97110; 97116; 97162; 97166; 97530; 97535; 97802

== ENCOUNTER → 2025-02-20 | Outpatient (CLI) | payer MEDICARE, OTHER, SELFPAY ==
--- NOTE | 2025-02-20 10:59 | RAD_ITS ---
PROCEDURE: SHOULDER MIN 2 VIEWS 02/20/2025 REASON FOR EXAM: LEFT SHOUDER PAIN TECHNIQUE: SHOULDER MIN 2 VIEWS COMPARISON: None. FINDINGS: There is no evidence of fracture or dislocation. 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 Reading Location: [id number]
== END | disposition home or self-care (01) ==
LOC: RAD 10:58
PROVIDERS: PCP Family Medicine Geriatric Medicine; Referring Provider Anesthesiology Pain Medicine; Visit Provider Anesthesiology Pain Medicine
DX: M25.512 Pain in left shoulder (principal)
CPT/HCPCS: 73030

== ENCOUNTER → 2025-03-14 | Outpatient (CLI) | payer MEDICARE, OTHER, SELFPAY ==
--- NOTE | 2025-03-14 12:41 | ECHOCS_ITS ---
Reason For Study : RE-EVAL AORTIC VALVE Procedure This was a 2D Doppler, Color Flow transthoracic echocardiogram. The study was technically difficult. Due to suboptimal imaging windows. Contrast injection was performed. Exam performed in department. Left Ventricle Normal LV size. Moderate concentric left ventricular hypertrophy. The left ventricular ejection fraction is 60 %. No regional wall motion abnormalities noted. Right Ventricle Normal RV size. Normal systolic function. Atria Normal left atrium. Normal right atrium. Mitral Valve Normal mitral valve. Tricuspid Valve Normal tricuspid valve. Mild to moderate (1-2+) tricuspid valve insufficiency. Pulmonary artery systolic pressure is 35 mmHg. Aortic Valve Peak aortic valve gradient 48 mmHg. Mean aortic valve gradient 25 mmHg. Moderate aortic stenosis. Great Vessels Normal aortic root. Pericardium/Pleural No pericardial effusion. Medication 22 gauge I.V. with prn adaptor inserted into right arm. Diluted definity 2.0ml given slow IV push to enhance endocardial definition. MMode/2D Measurements & Calculations LVIDd: 4.2 cm IVSd: 1.7 cm LVOT diam: 2.1 cm LVIDs: 2.7 cm LVPWd: 1.1 cm LVOT area: 3.5 cm2 RVDd: 4.1 cm FS: 35.3 % Ao root diam: 4.2 cm LAV(MOD-sp2): 80.0 ml LVAd ap4: 22.8 cm2 LVLd ap4: 6.8 cm EDV(MOD-sp4): 66.4 ml EDV(sp4-el): 64.8 ml LVAs ap4: 14.0 cm2 LVLs ap4: 6.0 cm ESV(MOD-sp4): 29.2 ml ESV(sp4-el): 27.7 ml EF(MOD-sp4): 56.0 % EF(sp4-el): 57.2 % SV(MOD-sp4): 37.2 ml SV(sp4-el): 37.1 ml LA dimension(2D): 4.1 cm SI(MOD-sp4): 16.6 ml/m2 TAPSE: 1.4 cm Doppler Measurements & Calculations MV E max rolan: 114.9 cm/sec Ao V2 max: 346.8 cm/sec LV V1 max: 69.3 cm/sec Ao max P.1 mmHg LV V1 max P.9 mmHg Ao V2 mean: 240.0 cm/sec LV V1 mean P.0 mmHg Ao mean P.5 mmHg LV V1 mean: 47.8 cm/sec Ao V2 VTI: 72.1 cm LV V1 VTI: 14.2 cm AV (velocity ratio): 0.20 CECILY(I,D): 0.69 cm2 CECILY(V,D): 0.70 cm2 SV(LVOT): 50.0 ml PA V2 max: 96.1 cm/sec TR max rolan: 281.0 cm/sec PA V2 mean: 60.1 cm/sec TR max P.7 mmHg PA V2 VTI: 13.6 cm ECHO/Echo Complete W/ Contrast Interpretation Summary Normal LV size. Moderate concentric left ventricular hypertrophy. The left ventricular ejection fraction is 60 %. Peak aortic valve gradient 48 mmHg. Mean aortic valve gradient 25 mmHg. Pulmonary artery systolic pressure is 35 mmHg. Moderate aortic stenosis. Contrast injection was performed. Ordering Physician: Paulino Jose Referring Physician: [facility] Performed By: Arielle East, CARL, RVT
== END | disposition home or self-care (01) ==
LOC: CVS 12:40
PROVIDERS: PCP Family Medicine Geriatric Medicine; Referring Provider Nurse Practitioner Family; Visit Provider Nurse Practitioner Family
DX: I35.1 Nonrheumatic aortic (valve) insufficiency (principal)
CPT/HCPCS: 93306; Q9957; A4216; C8929

== ENCOUNTER → 2025-05-16 | Outpatient (CLI) | payer MEDICARE, OTHER, SELFPAY ==
[2025-05-16 14:41] LABS: Hematocrit 41.8 % (40-54); Hemoglobin 13.9 g/dL (13.0-16.5); Immature Granulocytes Count 0.020 X10^3/uL (0.0-0.0); Mean Corp Hgb Conc 33.3 g/dL (32-36); Mean Corpuscular Volume 106.6 fL (80-94); Mean Platelet Vol. 11.2 fl (6.2-12.0); NRBC Flagged by Analyzer 0 % (0-5); POSITIVE DIFFERENTIAL YES; Platelet Count 138 K/mm3 (150-450); RBC Distribution Width CV 15.1 % (11.6-14.6); RBC Distribution Width SD 59.9 fl (35.1-43.9); Red Blood Count 3.92 M/mm3 (4.6-6.2); White Blood Count 4.0 K/mm3 (4.4-11.0)
[2025-05-16 15:21] LABS: AST(SGOT) 21 U/L (<=37); Alanine Aminotransfer ALT/SGPT 8 U/L (<=46); Albumin, Serum 4.0 g/dL (3.4-4.8); Alkaline Phosphatase 61 U/L (40-129); Anion Gap 10 (5-15); BUN 22 mg/dL (4-19); BUN/Creat Ratio 18.6 RATIO (10-20); Calcium,Total 9.6 mg/dL (7.6-11.0); Carbon Dioxide 26.7 mmol/L (21.0-32.0); Chloride 104 mmol/L (98-108); Globulin 2.9 g/dL (2.2-4.2); Glucose 109 mg/dL (70-99); Potassium 4.5 mmol/L (3.3-5.1)
[2025-05-16 22:30] LABS: Xtra Tube Kwok EXTRA TUBE
== END | disposition home or self-care (01) ==
LOC: LAB 14:22
PROVIDERS: PCP Family Medicine Geriatric Medicine; Referring Provider Family Medicine Geriatric Medicine; Visit Provider Family Medicine Geriatric Medicine
DX: I10 Essential (primary) hypertension (principal); E03.9 Hypothyroidism, unspecified
CPT/HCPCS: 36415; 80053; 84443; 85025